=== PATIENT | female | born 1950 | race Caucasian/White ===

== ENCOUNTER → 2017-12-28 18:09 | Outpatient (CLI) | payer MEDICARE, SELFPAY ==
[2017-12-28 19:27] LABS: M R Staph aureus DNA By PCR Negative (Negative); Probe Check PASS; Specimen Processing Control PASS; Staph aureus DNA By PCR NEGATIVE (Negative)
== END ==
PROVIDERS: Family Provider Internal Medicine; PCP Internal Medicine; Visit Provider Podiatrist
DX: L60.0 Ingrowing nail (principal)
CPT/HCPCS: 87070; 87205; 87640

== ENCOUNTER 2018-05-04 00:26 | Emergency (ER) | payer MEDICARE, SELFPAY ==
[2018-05-04 00:28] VITALS: BP 118/68; PULSE 101; RESP 20; TEMP 38.2; O2SAT 94; BMI 30.8
--- NOTE | 2018-05-04 00:58 | ED.DCSUM_ITS ---
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 Is on maintenance amoxicillin and Bactrim daily. Patient states she has had intermittent fevers of 100 101 since Wednesday. Mild chills. Denies cough. Denies sore throat. Denies sinus congestion. Denies abdominal pain or any dysuria. Physical Examination: Well appearing older female. Vital signs are stable. Pressure is 118/68. Temperature 100.7. She does not appear to be septic or toxic. She is in no acute distress. H EENT exam unremarkable. Posterior pharynx moist and pink. No erythema or exudate. Neck nontender no lymphadenopathy. Lungs clear to auscultation bilaterally. Heart regular rhythm rate about 100 no murmur. Abdomen soft and nontender. Normal bowel sounds no peritoneal signs. She does have a right lower abdomen ostomy. She is moving all 4 extremities. They are neurovascularly intact. Neurologically she is awake and alert with no focal motor deficits. Skin is unremarkable no cellulitis no abscesses. Neurologically she is awake and alert. Test Results: CBC unremarkable with a white count of 8 and a hemoglobin of 11.7 which is her baseline. Electrolytes unremarkable with a normal gap and creatinine. Blood cultures ?2 have been sent and are pending. Chest x-ray two- view shows no acute abnormality with a left-sided MediPort. Urinalysis shows 1025 white cells but no other signs of and no nitrites. A culture will be sent. At this time with her having no urinary symptoms and currently being on 2 different antibiotics I do not feel she needs to be placed on a third antibiotic until culture result determines if she truly has a urinary tract infection or not. I discussed this with both the patient and her . Emergency Department Course and Treatment: Patient with a low-grade fever and a history of bone marrow transplant. Treatment Plan: Repeat exam the patient is doing well at ar 2:17 AM. We discussed all of her test results. Discharge to home. Follow-up with either her primary care physician Dr. Manisha Quinteros or Dr. Williams Gresham of the [facility] for further evaluation of her fever and determine her urine culture results. 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 It may contain incorrect words, spelling, and punctuation that were not noted in review of the chart prior to signing ED Disposition - Plan for ED Patient: Disposition: Home or Assisted Living Chief Complaint: Fever Instructions: ED Fever Unconf Cause Referrals: Dorcas Prince MD [Primary Care Provider] - As soon as possible Additional Instructions: Return if feeling worse. Tylenol as needed for fever. Continue current medications and current antibiotics. Call follow-up with your primary care physician or your bone marrow transplant team at the [facility]. We did do blood cultures we will notify you when those return if there are any signs of infection.
[2018-05-04 01:24] LABS: Absolute Lymphocyte Count 4.06 X10^3/ul (0.83-4.51); Absolute Neutrophil Count 3.1 X10^3/uL (2.0-7.7); Basophil# 0.01 X10^3/uL; Basophil% 0.1 % (0-1); Eosinophil# 0.24 X10^3/uL; Eosinophils% 2.7 % (0-5); Hematocrit 34.2 % (37-47); Hemoglobin 11.7 g/dl (12.0-15.0); Lymphocyte # 4.06 X10^3/ul (4.0); Lymphocyte % 46.1 % (19-41); Mean Corp Hgb Conc 34.2 g/gl (32-36); Mean Corpuscular Hgb 33.4 pg (27.0-32.0); Mean Corpuscular Volume 97.7 fL (81-99); Mean Platelet Vol. 10.7 fl (6.2-12.0); Monocyte# 1.41 X10^3/uL; Neutrophil # 3.05 X10^3/uL (2.7-7.7); Neutrophil % 34.8 % (47-70); Platelet Count 233 K/mm3 (150-450); RBC Distribution Width CV 14.6 % (11.6-14.6); RBC Distribution Width SD 49.7 fl (35.1-43.9); White Blood Count 8.8 K/mm3 (4.4-11.0)
[2018-05-04 01:27] LABS: POSITIVE COUNT NO; POSITIVE DIFFERENTIAL NO; POSITIVE MORPHOLOGY NO
[2018-05-04 01:39] LABS: Anion Gap 10 (5-15); BUN 19 mg/dL (7-18); BUN/Creat Ratio 19.3 RATIO (10-20); Calcium,Total 9.3 mg/dL (8.5-10.1); Chloride 107 mmol/L (98-107); Creatinine, Serum 0.98 mg/dL (0.55-1.02); EST Glomerular Filtration Rate 60 mL/min (>60); Est Glom Filt Rate - Afr Amer 72 mL/min (>60); Estimated Creatinine Clearance 60.94 ml/min; Glucose 178 mg/dL (74-106); Potassium 3.9 mmol/L (3.5-5.1); Sodium Level 140 mmol/L (136-145)
--- NOTE | 2018-05-04 02:21 | DCINST.ED_ITS ---
ED Disposition - Plan for ED Patient: Disposition: Home or Assisted Living Chief Complaint: Fever Instructions: ED Fever Unconf Cause Referrals: Dorcas Prince MD [Primary Care Provider] - As soon as possible Additional Instructions: Return if feeling worse. Tylenol as needed for fever. Continue current medications and current antibiotics. Call follow-up with your primary care physician or your bone marrow transplant team at the [facility]. We did do blood cultures we will notify you when those return if there are any signs of infection. Also your urinalysis had white cells but no other signs of infection. A urine culture was sent and those results return in 1-2 days. If you truly have a urinary tract infection we may need to alter your current antibiotics. Call and follow-up with either Dr. Dorcas Prince or Dr. Williams Gresham.
[2018-05-04 02:35] LABS: Bacteria 0 SEEN /hpf (None Seen); Mucous, Urine 0 SEEN /hpf (<or=2+); Red Blood Cells-Urine 0 SEEN /hpf (0-5); Squamous Epithelial Cells - UA 0 SEEN /hpf (5-10)
[2018-05-04 02:41] LABS: Color, Urine Yellow (Yellow); Glucose, Dipstick Normal (Normal); Ketone-Dipstick Negative (Negative); Leukocyte Esterase-Dipstick 500 /ul (Negative); Nitrite-Dipstick Negative (Negative); Occult Blood-Urine 10 /ul (Negative); Protein-Dipstick 15 mg/dl (Negative); Urine Bilirubin Dipstick Negative (Negative); Urine Clarity Clear (Clear); Urine Urobilinogen Normal (Normal)
[2018-05-04 02:49] LABS: White Blood Cells 10-25 SEEN /hpf (0-5)
--- NOTE | 2018-05-04 03:04 | ED.DEP ---
ED Disposition - Plan for ED Patient: Disposition: Home or Assisted Living Chief Complaint: Fever Instructions: ED Fever Unconf Cause Referrals: Dorcas Prince MD [Primary Care Provider] - As soon as possible Additional Instructions: Return if feeling worse. Tylenol as needed for fever. Continue current medications and current antibiotics. Call follow-up with your primary care physician or your bone marrow transplant team at the [facility]. We did do blood cultures we will notify you when those return if there are any signs of infection. Also your urinalysis had white cells but no other signs of infection. A urine culture was sent and those results return in 1-2 days. If you truly have a urinary tract infection we may need to alter your current antibiotics. Call and follow-up with either Dr. Dorcas Prince or Dr. Williams Gresham.
[2018-05-04 03:14] VITALS: BP 100/62; PULSE 78; RESP 18; TEMP 37.5; O2SAT 95
--- NOTE | 2018-05-04 03:48 | NURSING ---
CENTRAL LINE ASSESS CATHETER REMOVED, BUT FLUSHED WITH 10 CC'S NS AND 5 ML HEPARIN 100 UNITS /ML PRIOR TO REMOVAL. MINIMAL BLEEDING NOTED. SMALL BANDAGE APPLIED.
== END 2018-05-04 03:50 | disposition home or self-care (01) ==
PROVIDERS: Emergency Provider Emergency Medicine; Family Provider Internal Medicine; PCP Internal Medicine
DX: R50.9 Fever, unspecified (principal); Z94.81 Bone marrow transplant status; Z85.6 Personal history of leukemia; D89.813 Graft-versus-host disease, unspecified
CPT/HCPCS: 36415; 36591; 71046; 80048; 81001; 85025; 87040; 87086; 87088; 99283

== ENCOUNTER → 2018-06-01 18:24 | Outpatient (CLI) | payer MEDICARE, SELFPAY ==
[2018-06-01 20:29] LABS: M R Staph aureus DNA By PCR Negative (Negative); Probe Check PASS; Specimen Processing Control PASS; Staph aureus DNA By PCR NEGATIVE (Negative)
== END ==
PROVIDERS: Visit Provider Podiatrist
DX: L60.0 Ingrowing nail (principal)
CPT/HCPCS: 87070; 87205; 87640; 97110

== ENCOUNTER 2018-08-10 11:00 | Outpatient (RCR) | payer MEDICARE, SELFPAY ==
--- NOTE | 2018-05-27 12:06 | HP.PTEVAL ---
Patient's Visit Information CONG SMITH is a 68 year old F referred to Physical Therapy by OMID CARL with a diagnosis of Malaise. Date of Evaluation: 05/27/18 Physical Therapist: Ashanti Dunlap - Visit Plan Frequency: 2-3x /Week Duration: 3 Weeks Plan: Focus on functional mobility and pain management. - Subjective Subjective: 4 years ago diagnosed with Leukemia- bone marrow transplant 3 years ago which put her into lindy/host disease. Gave her such high doses of Prednisone- was unable to move anything. Sent her to SNF for rehab and she got sick and sent her back to the hospital and ended up with colostomy bag. Back to another SNF- back to hospital possible PR but did have A-fib Aug. They let her come down to [facility]. Was in there until Oct and took her home. Hospital bed in living room with a commode. Hired a home health aide, PT and OT. They got her up and walking and is now walking without AD mostly in the home but she uses it for a cane. 2 weeks ago her left leg stopped working completely again. The adductor is very painful up to the groin and her knee is really tight and it throbbs to the ankle. MD is unsure of the cause. Feels like the muscle is pulled. Has problems getting up/down the stairs. Bedroom is downstairs in the basement- and her bathroom is a flight of stairs away. put a commode in the rec room. Thinks the pain was from going up/down the stais without a cane and thinks it maybe from that. The pain has been almost a month. Best: 0/10 when she was given a steroid for 3 days. CAT Scan was normal- they are looking for the source of her fever. Worst: 10/10 Agg: movement, picking the leg up off the couch, getting in/out of bed/car- sideways movement. No N/T in the toes. Sleep: disturbed- side/back. PMHx/Meds: no change since last ER visit. - Objective Gait: ambulated 60' with cane, slight ER of L leg and foot and circumduction. Decreased gait speed but no breaks needed during 60' walk. Posture: rounded shoulders. Highly irritable and hesitant with movement of L LE. Able to toe and heel raise with hand support on table; toe raise was decreased by 50% no pain. Unable to sustain SLS on L with hand support on table due to reported weakness and pain. Pain with palpation of L adductor muscle group and tibiofemoral medial joint line. ROM: WFL with pain with end range abduction of the hip. Strength: Core: fair, Hip: 4/5 throughout, knee: 4+/5, Ankle: 5/5. Pt unable to transfer sit to supine or supine to sit without mod A for LE movement. Flexibility: HS length mild restriction - Goals Goal 1:: Patient will be I with HEP and progression Goal Time Frame: 4-6 Weeks Goal 2:: Patient will transfer supine to sit/sit to supine I on mat table. Goal Time Frame: 4-6 Weeks Goal 3:: Patient will ambulate >300 feet with a normal gait pattern LRD and normal eric. Goal Time Frame: 4-6 Weeks Goal 4:: Patient will be able to asc/desc 8 stairs recip with 2 HR or 1 HR and cane. Goal Time Frame: 4-6 Weeks Goal 5:: Patient will report worst pain 3/10 for 1 week Goal Time Frame: 4-6 Weeks - Rehabilitation Potential Physical Therapy Diagnosis: Patient presents with hypomobility- she has decreased painfree ROM, strength and muscular endurance leading to inability to transfer I and perform normal ADL's. Rehabilitation Potential: Fair - Anticipated Interventions Patient/Client Instruction: Educate patient on: Benefits of Fitness Program Therapeutic Exercise to Include: Strength training, Endurance training, Balance training, Coordination, Body mechanics, Postural training, Flexibilty training, Gait and locomotor training, Passive ROM, Active ROM, Dynamic Lumbar Stabilization For the Purpose of:: To improve muscle performance and motor function Manual Therapy Techniques to Include: Soft tissue mobilization For the Purpose of:: To improve nutrient delivery to tissue TENS: Yes Cryotherapy (ice pack, ice massage): Yes Thermo therapy (hot pack): Yes Ultrasound (thermal/non thermal): Yes For the Purpose of:: To decrease pain Thank you for the opportunity to evaluate your patient. For Medicare and Medicare HMO plans, please review the plan of care and approve it. It will need to be FAXED BACK to us at [phone] for Medicare purposes. Please let me know if there are questions or concerns regarding this plan of care. Physician Signature: Date:
--- NOTE | 2018-06-17 11:34 | HP.PTREVAL_ITS ---
OMID CARL, It has been my pleasure to treat CONG SMITH over the last 10 visits for Malaise. Please see the progress note below for an update on the physical therapy plan of care! Subjective: Pain is located in the groin and down to the knee. Had x-rays at [facility] who was hoping the pain was coming from a pinched nerve but she thinks its from degeneration. She did not have any options. The therapy has her walking but she is unable to get in/out of the car and lifting the leg. wants her to do therapy for her back. Objective/Function: Gait: ambulated 250' with cane, slight ER of L leg and foot and circumduction. Decreased gait speed but no breaks needed during ambulation. Posture: rounded shoulders. Able to toe and heel raise with hand support on table; toe raise was decreased by 50% no pain. SLS on L with hand support on table fpr 5 seconds. Pain with palpation of L adductor muscle group and tibiofemoral medial joint line. ROM: WFL with pain with end range abduction of the hip. Strength: Core: fair, Hip: 4/5 throughout, knee: 4+/5, Ankle: 5/5. Sit to stand with bilateral UE. Flexibility: HS length mild restriction Plan Plan: Continue 3x a week for 3 weeks- 1 visit for 60 min and 2 for 30 min- add in core s/s on table Goals Goal 1:: Patient will be I with HEP and progression Goal Time Frame: 4-6 Weeks Goal Progress: Progressing Goal 2:: Patient will transfer supine to sit/sit to supine I on mat table. Goal Time Frame: 4-6 Weeks Goal Progress: Progressing Goal 3:: Patient will ambulate >300 feet with a normal gait pattern LRD and normal eric. Goal Time Frame: 4-6 Weeks Goal Progress: Progressing Goal 4:: Patient will be able to asc/desc 8 stairs recip with 2 HR or 1 HR and cane. Goal Time Frame: 4-6 Weeks Goal Progress: Progressing Goal 5:: Patient will report worst pain 3/10 for 1 week Goal Time Frame: 4-6 Weeks Goal Progress: Progressing Anticipated Interventions Patient/Client Instruction: Educate patient on: Benefits of Fitness Program Therapeutic Exercise to Include: Strength training, Endurance training, Balance training, Coordination, Body mechanics, Postural training, Flexibilty training, Gait and locomotor training, Passive ROM, Active ROM, Dynamic Lumbar Stabilization For the Purpose of:: To improve muscle performance and motor function Manual Therapy Techniques to Include: Soft tissue mobilization For the Purpose of:: To improve nutrient delivery to tissue TENS: Yes Cryotherapy (ice pack, ice massage): Yes Thermo therapy (hot pack): Yes Ultrasound (thermal/non thermal): Yes For the Purpose of:: To decrease pain Please do not hesitate to contact me at [phone] by phone or if you have questions or concerns regarding this new plan of care! Sincerely, Ashanti Dunlap
--- NOTE | 2018-07-08 11:33 | HP.PTREVAL ---
OMID CARL, It has been my pleasure to treat CONG SMITH over the last 19 visits for Malaise. Please see the progress note below for an update on the physical therapy plan of care! 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 Thinks the therapy is keeping her functional. So at this point she is planning to not do anything about her hip until it gets so painful she has no choice but to address it. Objective/Function: Gait: ambulated 300' with cane, slight ER of L leg and foot and circumduction. Decreased gait speed but no breaks needed during ambulation. Posture: rounded shoulders. Able to toe and heel raise with hand support on table; toe raise was decreased by 25% no pain. SLS on L with hand support on table fpr 5 seconds. Pain with palpation of L adductor muscle group and tibiofemoral medial joint line. ROM: WFL with pain with end range abduction of the hip. Strength: Core: fair, Hip: 4/5 throughout, knee: 4+/5, Ankle: 5/5. Sit to stand with bilateral UE. Flexibility: HS length mild restriction. Patient endurance is really improving- her gait speed is better and she requires less rest throughout session. Plan Plan: Continue PT 2x a week for 2 weeks then drop to 1x a week for 2 weeks with patient progressing in a gym program to become I with silver sneakers Goals Goal 1:: Patient will be I with HEP and progression Goal Time Frame: 4-6 Weeks Goal Progress: Progressing Goal 2:: Patient will transfer supine to sit/sit to supine I on mat table. Goal Time Frame: 4-6 Weeks Goal Progress: Goal Met Goal 3:: Patient will ambulate >300 feet with a normal gait pattern LRD and normal eric. Goal Time Frame: 4-6 Weeks Goal Progress: Progressing Goal 4:: Patient will be able to asc/desc 8 stairs recip with 2 HR or 1 HR and cane. Goal Time Frame: 4-6 Weeks Goal Progress: Progressing Goal 5:: Patient will report worst pain 3/10 for 1 week Goal Time Frame: 4-6 Weeks Goal Progress: Progressing Anticipated Interventions Patient/Client Instruction: Educate patient on: Benefits of Fitness Program Therapeutic Exercise to Include: Strength training, Endurance training, Balance training, Coordination, Body mechanics, Postural training, Flexibilty training, Gait and locomotor training, Passive ROM, Active ROM, Dynamic Lumbar Stabilization For the Purpose of:: To improve muscle performance and motor function Manual Therapy Techniques to Include: Soft tissue mobilization For the Purpose of:: To improve nutrient delivery to tissue TENS: Yes Cryotherapy (ice pack, ice massage): Yes Thermo therapy (hot pack): Yes Ultrasound (thermal/non thermal): Yes For the Purpose of:: To decrease pain Please do not hesitate to contact me at [phone] by phone or if you have questions or concerns regarding this new plan of care! Sincerely, Ashanti Dunlap
--- NOTE | 2018-08-10 11:33 | HP.PTDCSUM ---
HP - PT D/C Summary It has been my pleasure to treat CONG SMITH under orders from OMID CARL, for the diagnosis of Malaise for a total of 27 visit(s). Discharge Date: Please see the following information for a summary of their discharge status. - Subjective Subjective: Therapy is going okay- feels its helping but she is pessamistic about her hip. PT is getting her moving but the pain is not changing. They did blood work- to see if the inflammation is in the muscles. Trying to balance her Creatine. 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 They keep talking Prednisone but haven't put her on anything. really hard to get moving and motivated to do anything. - Pain L LE Pain Intensity (Out of 10): 0 LUmbar Spine Pain Intensity (Out of 10): 0 - Objective Objective/Function: Gait: ambulated 300' with cane, slight ER of L leg and foot and circumduction. Decreased gait speed but no breaks needed during ambulation. Posture: rounded shoulders with difficulty maintaining erect posture with ambulation today- reports tired. Able to toe and heel raise with hand support on table ROM: WFL with pain with end range abduction of the hip. Strength: Core: fair, Hip: 4/5 throughout, knee: 4+/5, Ankle: 5/5. Sit to stand with bilateral UE or single UE and cane. - Goals Goal 1:: Patient will be I with HEP and progression Goal Progress: Goal Met Goal 2:: Patient will transfer supine to sit/sit to supine I on mat table. Goal Progress: Goal Met Goal 3:: Patient will ambulate >300 feet with a normal gait pattern LRD and normal eric. Goal Progress: Progressing Goal 4:: Patient will be able to asc/desc 8 stairs recip with 2 HR or 1 HR and cane. Goal Progress: Progressing Goal 5:: Patient will report worst pain 3/10 for 1 week Goal Progress: Progressing - Plan Plan: Discharge to HEP - D/C Information If there are questions or concerns regarding this patient's physical therapy, please feel free to call me at [phone]. Thank you for the referral of this patient. Sincerely, Ashanti Dunlap
== END 2018-08-10 18:56 | disposition home or self-care (01) ==
LOC: PT 11:00
PROVIDERS: Family Provider Internal Medicine; PCP Internal Medicine
DX: Z94.81 Bone marrow transplant status (principal); R53.81 Other malaise
CPT/HCPCS: 97110; 97116; 97162; 97164

== ENCOUNTER 2018-08-22 13:18 | Emergency (ER) | payer MEDICARE, SELFPAY ==
[2018-08-22 13:21] VITALS: BP 129/96; PULSE 103; RESP 18; TEMP 37.3; O2SAT 100; BMI 27.8
--- NOTE | 2018-08-22 14:00 | CT_ITS ---
STUDY: CT SOFT TISSUE NECK WITHOUT CONTRAST REASON FOR EXAM: Female, 68 years old. Right jaw pain. Possible dental infection. History of leukemia. RADIATION DOSAGE (If Supplied By Facility): CTDIvol = ( 15.29 ) mGy, DLP = ( 396.90 ) mGycm TECHNIQUE: The patient was scanned in a multi-detector CT scanner. High resolution transaxial imaging was performed without the administration of intravenous contrast material. Sagittal and coronal images were reconstructed. Individualized dose optimization techniques were used for this CT. COMPARISON: None. FINDINGS: A left-sided portacatheter is seen. Diffuse soft tissue swelling and edematous changes seen in the right submental region. There is evidence of enlarged lymph nodes at that site. This is in keeping with the patient's history of possible right ventricular infection. There is evidence of increased markings in the surrounding subcutaneous fat. No bony destruction is seen. Normal visualized nasopharynx. Normal retropharyngeal space. Normal perivertebral space. Normal visualized bilateral faucial tonsils. The visualized tongue, tongue base and oropharynx are normal. There are minimally enlarged lymph nodes of the neck, with preservation of normal darius architecture, consistent with a reactive lymph hyperplasia. Normal epiglottis, bilateral vallecula and hypopharynx. The pre-epiglottic and paraglottic adipose spaces are normal. Normal visualized bilateral piriform sinuses, aryepiglottic folds, vocal cords, and arytenoid-cricoid articulations. Normal subglottic trachea. Normal bilateral lobes of the thyroid gland. Normal visualized pulmonary apices. Mucosal thickening of the maxillary sinuses and ethmoid sinuses bilaterally. Straightening of the normal cervical lordosis. CT/Soft Tissue Neck without Contr IMPRESSION: Diffuse soft tissue swelling and enlargement of the cervical lymph nodes in the right submental region. No bony abnormality is seen. Electronically Signed: Ralph Morillo MD at 15:34 EST Tel [phone], Service support ,
[2018-08-22] MEDS: Morphine 4 MG/ML Syringe IV (14:24)
[2018-08-22] MEDS: Ondansetron 4 MG/2 ML Vial IV (14:24)
[2018-08-22 14:36] LABS: Absolute Lymphocyte Count 3.77 X10^3/ul (0.83-4.51); Absolute Neutrophil Count 5.1 X10^3/uL (2.0-7.7); Basophil# 0.02 X10^3/uL; Basophil% 0.2 % (0-1); Differential Indicated SCAN CRITERIA MET; Eosinophil# 0.16 X10^3/uL; Eosinophils% 1.5 % (0-5); Hematocrit 36.7 % (37-47); Hemoglobin 12.4 g/dl (12.0-15.0); Lymphocyte # 3.77 X10^3/ul (4.0); Mean Corp Hgb Conc 33.8 g/gl (32-36); Mean Corpuscular Hgb 32.4 pg (27.0-32.0); Mean Corpuscular Volume 95.8 fL (81-99); Mean Platelet Vol. 9.9 fl (6.2-12.0); Monocyte% 15.8 % (0-10); Neutrophil % 47.3 % (47-70); POSITIVE COUNT NO; POSITIVE DIFFERENTIAL YES; POSITIVE MORPHOLOGY NO; Platelet Count 235 K/mm3 (150-450); RBC Distribution Width SD 52.3 fl (35.1-43.9); Red Blood Count 3.83 M/mm3 (4.2-5.4); White Blood Count 10.8 K/mm3 (4.4-11.0)
[2018-08-22] MEDS: 0.9% Normal Saline 1,000 ML 999 ML IV (14:38)
[2018-08-22 14:46] LABS: Anion Gap 10 (5-15); BUN 29 mg/dL (7-18); BUN/Creat Ratio 27.9 RATIO (10-20); Chloride 103 mmol/L (98-107); Creatinine, Serum 1.04 mg/dL (0.55-1.02); EST Glomerular Filtration Rate 56 mL/min (>60); Est Glom Filt Rate - Afr Amer 68 mL/min (>60); Estimated Creatinine Clearance 50.05 ml/min; Glucose 110 mg/dL (74-106); Potassium 4.1 mmol/L (3.5-5.1); Sodium Level 138 mmol/L (136-145)
[2018-08-22] MEDS: proMETHazine 25 MG/ML Syringe 6.25 MG IV (15:09)
--- NOTE | 2018-08-22 16:15 | ED.VISSUMM ---
- ER Visit Summary Date of Service: 08/22/18 Chief Complaint: Dental infection History of Present Illness: The patient is a 68 F with a history of immunosuppression presenting with dental pain in the right mandibular molar region for 3 days. It is worse with chewing and has noted her p.o. intake for the past 2 days. She and her are concerned about dehydration. She saw her dentist today and was sent here for a CT scan to rule out deep space infection. She denies fever or neck pain. She has no other symptoms of infection. Physical Examination: Vitals are within normal limits. She is not in distress. Mucous membranes are dry. She does have some pain with mouth opening but no true trismus and is still able to open up for me to examine her. She has tenderness on percussion of the right mandibular second molar where there is focal decay. There is mild swelling laterally on her face but the tissues are soft. There is mild lymphadenopathy on the right by anterior neck structures in the floor of her mouth are soft. There is no erythema or warmth. No trouble handling her secretions. Test Results: Labs are within normal limits. I was unable to use IV contrast because of her allergy so a noncontrast scan was performed. While it is somewhat limited, there is no evidence of deep space infection but rather reactive lymphadenopathy on the right. She has no other symptoms of infection and is certain that this is a dental source. Emergency Department Course and Treatment: Given intravenous clindamycin as well as intravenous fluids and nausea/pain medication here. She feels well and is comfortable going home on oral medication as a trial. I will prescribe her clindamycin and pain medication. She will see her dentist tomorrow for a recheck and return here if worse. Treatment Plan: See her dentist tomorrow, oral clindamycin after a dose of IV clindamycin here Disposition: Home stable condition Impression: Initial encounter dental infection with reactive lymphadenopathy setting of immunosuppression This note was generated with [employer] dictation software. It may contain incorrect words, spelling, and punctuation that were not noted in review of the chart prior to signing ED Disposition - Plan for ED Patient: Chief Complaint: Dental Instructions: Dental Abscess, ED Tooth Pain Prescriptions: Oxycodone HCl/Acetaminophen [Percocet 5/325] 1 tablet PO Q6H PRN PRN 3 Days #12 tablet PRN Reason: Pain Clindamycin [Cleocin] 300 mg PO 4X/DAY #80 capsule Referrals: Dorcas Prince MD [Primary Care Provider] - Additional Instructions: See your dentist tomorrow
--- NOTE | 2018-08-22 16:21 | ED.DCSUM_ITS ---
- ER Visit Summary Date of Service: 08/22/18 Chief Complaint: Dental infection History of Present Illness: The patient is a 68 F with a history of immunosuppression presenting with dental pain in the right mandibular molar region for 3 days. It is worse with chewing and has noted her p.o. intake for the past 2 days. She and her are concerned about dehydration. She saw her dentist today and was sent here for a CT scan to rule out deep space infection. She denies fever or neck pain. She has no other symptoms of infection. Physical Examination: Vitals are within normal limits. She is not in distress. Mucous membranes are dry. She does have some pain with mouth opening but no true trismus and is still able to open up for me to examine her. She has tenderness on percussion of the right mandibular second molar where there is focal decay. There is mild swelling laterally on her face but the tissues are soft. There is mild lymphadenopathy on the right by anterior neck structures in the floor of her mouth are soft. There is no erythema or warmth. No trouble handling her secretions. Test Results: Labs are within normal limits. I was unable to use IV contrast because of her allergy so a noncontrast scan was performed. While it is so mewhat limited, there is no evidence of deep space infection but rather reactive lymphadenopathy on the right. She has no other symptoms of infection and is certain that this is a dental source. Emergency Department Course and Treatment: Given intravenous clindamycin as well as intravenous fluids and nausea/pain medication here. She feels well and is co mfortable going home on oral medication as a trial. I will prescribe her clindamycin and pain medication. She will see her dentist tomorrow for a recheck and return here if worse. Treatment Plan: See her dentist tomorrow, oral clindamycin after a dose of IV clindamycin here Disposition: Home stable condition Impression: Initial encounter dental infection with reactive lymphadenopathy setting of immunosuppression This note was generated with [employer] dictation software. It may contain incorrect words, spelling, and punctuation that were not noted in review of the chart prior to signing ED Disposition - Plan for ED Patient: Chief Complaint: Dental Instructions: Dental Abscess, ED Tooth Pain Prescriptions: Oxycodone HCl/Acetaminophen [Percocet 5/325] 1 tablet PO Q6H PRN PRN 3 Days #12 tablet PRN Reason: Pain Clindamycin [Cleocin] 300 mg PO 4X/DAY #80 capsule Referrals: Dorcas Prince MD [Primary Care Provider] - Additional Instructions: See your dentist tomorrow
[2018-08-22 16:53] VITALS: RESP 18
[2018-08-22 18:10] VITALS: RESP 18
== END 2018-08-22 18:12 | disposition home or self-care (01) ==
LOC: ED 14:04
PROVIDERS: Emergency Provider Emergency Medicine; Family Provider Internal Medicine; PCP Internal Medicine
DX: K04.7 Periapical abscess without sinus (principal); Z85.6 Personal history of leukemia
CPT/HCPCS: 36591; 70490; 80048; 85025; 96361; 96374; 96375; 99282; J7030; J7050; A4216; J2405

== ENCOUNTER 2018-10-28 13:02 | Outpatient (RCR) | payer MEDICARE, SELFPAY ==
[2018-10-28 13:21] VITALS: BP 110/67; PULSE 90; RESP 18; TEMP 36.9; BMI 27.8
== END 2018-11-17 23:59 ==
LOC: WC 13:02
PROVIDERS: Family Provider Internal Medicine; PCP Internal Medicine; Visit Provider Family Medicine
DX: Z09 Encounter for follow-up examination after completed treatment for conditions other than malignant neoplasm (principal)

== ENCOUNTER 2018-12-15 14:17 | Emergency (ER) | payer MEDICARE, SELFPAY ==
[2018-12-15 14:23] VITALS: BP 120/71; PULSE 77; RESP 18; TEMP 36.2; O2SAT 100; BMI 26.5
--- NOTE | 2018-12-15 14:27 | EKG12_ITS ---
Test Reason : SYNCOPE Blood Pressure : / mmHG Vent. Rate : 077 BPM Atrial Rate : 077 BPM P-R Int : 144 ms QRS Dur : 134 ms QT Int : 438 ms P-R-T Axes : 035 -67 055 degrees QTc Int : 495 ms Normal sinus rhythm Left axis deviation Right bundle branch block Abnormal ECG Confirmed by ROBERT CABA, CLARE ([id number]), editor farm journal LINDA CONTRERAS ([id number]) on 12/19/2018 2:00:04 PM Referred By: MELISSA Confirmed By:CLARE JONES MD
[2018-12-15 14:38] VITALS: BP 107/65; PULSE 79; RESP 13; O2SAT 100
--- NOTE | 2018-12-15 14:46 | ED.VIS.GEN ---
History of Present Illness Chief Complaint: Syncope Informant: Patient, Family Onset: Today Context: Sudden Onset Timing: Intermittent Quality: Passed out Location: Restaurant Current Severity: Resolved Maximum Severity: Moderate Worsened by: Rising from sitting position Associated Symptoms: Nausea, abdominal discomfort, diaphoresis and pallor Narrative: Patient is an elderly woman with multiple medical problems who presents after syncopal episode. She was sitting for an hour at a restaurant. She aurelio from a sitting position. She became nauseous, lightheaded and was reported to be pale and diaphoretic. Patient had similar event in the past and did not seek medical attention. She is presently complaining of chronic abdominal pain. He does have an ileostomy. He reports occasionally does get cramping abdominal pain. She denies black or maroon stool. She denies cardiac or respiratory symptoms. 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 (3) Bone marrow transplant status Status: Chronic Comment: in spring (4) Hypothyroidism Status: Chronic (5) Gastroenteritis Status: Suspected Past Medical History - Allergies and Home Meds Allergies/Adverse Reactions: Allergies Gadolinium-MRI Contrast Medium [CONTRAST] Allergy (Verified 08/22/18 13:20) Hives Iodinated Contrast- Oral and IV Dye [Iodinated Contrast Media - IV Dye] Allergy (Verified 08/22/18 13:20) Hives iodine Allergy (Verified 08/22/18 13:20) Hives Primary Care Physician: Dorcas Prince MD [Primary Care Provider] - Prior records reviewed: Yes Surgical History: - - colostomy, bone marrow transplant Lives: Spouse/ Significant Other Smoking Status: Never smoker Alcohol: None Drugs: None - Family History Maternal Family History: Reports: - - History of leukemia pain Maternal cousin but not in first-degree family relative Review of Systems ROS: Unable to Obtain - History is limited because patient does not recall much. Friends that were at restaurant are not present to be interviewed. EMS report is not available. General: Reports: Chills. Denies: Fever, Malaise, Sweats, Weight loss Eyes: Denies: Visual changes - bilaterally, Blurred Vision - bilaterally, Diplopia ENT: Denies: Bilateral ear pain, Rhinorrhea, Sore throat Cardiovascular: Denies: Chest pain, Palpitations, Heart racing Respiratory: Denies: Dyspnea, Cough, Sputum, Dyspnea on exertion, Orthopnea, Paroxysmal nocturnal dyspnea, -, - Gastrointestinal: Reports: Abdominal pain, Nausea. Denies: Vomiting, Diarrhea, Melena, Hematochezia Genitourinary: Denies: Dysuria, Hematuria, Frequency, -, - Musculoskeletal: Denies: Myalgias, Arthralgias, Neck pain, Back pain, Extremity Pain Skin: Denies: Rash, Wounds Neurological: Reports: Weakness. Denies: Headache, Parasthesia, Numbness Endocrine: Denies: Polyuria, Polydipsia Hematologic: Denies: Easy bruising Allergy: Denies: Uticaria Physical Exam Vital Signs/Narrative: Vital Signs Temp Pulse Resp BP Pulse Ox 12/15/18 14:38 79 13 107/65 100 12/15/18 14:23 97.1 F L 77 18 120/71 100 Inital Vital Signs reviewed: Yes General: Well nourished, Well developed, No Acute Distress Head: Normocephalic, Atraumatic Eyes: Perrl, EOMI. Negative for: Pale conjunctiva ENT: Moist mucous membranes, No rhinorrhea, TM's clear, - - No clinical findings of basal skull fracture Neck: Supple, Nontender, No lymphadenopathy, No JVD Cardiovascular: Regular rate, Regular rhythm, No murmurs, Normal S1, Normal S2 Respiratory: No distress, CTA bilaterally, Chest nontender Abdomen: Soft, Nondistended, No masses, Tender, Hyperactive bowel sounds, Ventral hernia, Hernia irreducible. Negative for: Guarding, Rebound tenderness, Hepatomegaly, Splenomegaly Rectal: - - Stool in ileostomy bag is green Back: Nontender, Normal Inspection Skin: No rash, Pallor Neurological: Alert, Oriented x3, Cranial nerves II-XII grossly intact, Normal Strength, Normal Sensation Psychological: Normal affect, Normal Mood Diagnostic/Tx/Re-eval Laboratory Results 12/15/18 12/15/18 14:53 14:53 WBC 9.4 RBC 3.31 L Hgb 11.2 L Hct 34.5 L MCV 104.2 H MCH 33.8 H MCHC 32.5 RDW 14.5 RDW Differential 55.4 H Plt Count 301 MPV 10.2 Immature Gran % (Auto) 0.100 Neut % (Auto) 36.5 L Lymph % (Auto) 39.0 [place] % (Auto) 13.3 H Eos % (Auto) 10.6 H Baso % (Auto) 0.5 Absolute Neuts (auto) 3.4 Absolute Lymphs (auto) 3.67 Total Counted Not Reportable Sodium 138 Potassium 3.8 Chloride 107 Carbon Dioxide 24.0 Anion Gap 7 BUN 22 H Creatinine 1.09 H Estim Creat Clear Calc 45.55 Est GFR (MDRD) Af Amer 64 Est GFR (MDRD) Non-Af 53 L BUN/Creatinine Ratio 20.2 H Glucose 98 Calcium 8.8 - EKG Initial EKG Interpretation: Sinus Rhythm - Ventricular rate 77. AR interval normal. QS duration is 134 ms and evidence of right bundle branch block. QT interval is normal. [place] is to the left., RBBB Prior: Unchanged - Prior EKG July 28, 2016. - Medical Decision Making History is suggestive of vasovagal episode. Will obtain EKG. Because of her multiple medical problems and pallor will obtain CBC to assess for anemia. White count since she has chills. Electric panel to assess electrolytes, CO2 and anion gap as well as blood sugar. She was placed on a monitor. Patient's blood work is unchanged from prior. Based on history, comments made by bystanders and exam patient had a vasovagal episode. Will discharge to home. ED Disposition - Plan for ED Patient: Disposition: Home or Assisted Living Diagnosis: Vasovagal syncope, Chronic renal insufficiency, Bone marrow transplant status, Hypothyroidism, Anemia, unspecified Instructions: ED Syncope Vasovagal Referrals: Dorcas Prince MD [Primary Care Provider] - As Needed
[2018-12-15] MEDS: 0.9% Normal Saline 1,000 ML 1000 ML IV (15:01)
[2018-12-15 15:13] LABS: Absolute Lymphocyte Count 3.67 X10^3/ul (0.83-4.51); Absolute Neutrophil Count 3.4 X10^3/uL (2.0-7.7); Basophil# 0.05 X10^3/uL; Basophil% 0.5 % (0-1); Eosinophils% 10.6 % (0-5); Hematocrit 34.5 % (37-47); Hemoglobin 11.2 g/dl (12.0-15.0); Lymphocyte # 3.67 X10^3/ul (4.0); Mean Corp Hgb Conc 32.5 g/gl (32-36); Mean Corpuscular Hgb 33.8 pg (27.0-32.0); Mean Corpuscular Volume 104.2 fL (81-99); Mean Platelet Vol. 10.2 fl (6.2-12.0); Monocyte# 1.25 X10^3/uL; Monocyte% 13.3 % (0-10); Neutrophil # 3.42 X10^3/uL (2.7-7.7); Neutrophil % 36.5 % (47-70); Platelet Count 301 K/mm3 (150-450); RBC Distribution Width CV 14.5 % (11.6-14.6); RBC Distribution Width SD 55.4 fl (35.1-43.9); Red Blood Count 3.31 M/mm3 (4.2-5.4); White Blood Count 9.4 K/mm3 (4.4-11.0)
[2018-12-15 15:14] LABS: POSITIVE COUNT NO; POSITIVE DIFFERENTIAL NO; POSITIVE MORPHOLOGY NO
[2018-12-15 15:17] LABS: Anion Gap 7 (5-15); BUN 22 mg/dL (7-18); BUN/Creat Ratio 20.2 RATIO (10-20); Calcium,Total 8.8 mg/dL (8.5-10.1); Chloride 107 mmol/L (98-107); Creatinine, Serum 1.09 mg/dL (0.55-1.02); EST Glomerular Filtration Rate 53 mL/min (>60); Est Glom Filt Rate - Afr Amer 64 mL/min (>60); Estimated Creatinine Clearance 45.55 ml/min; Glucose 98 mg/dL (74-106); Potassium 3.8 mmol/L (3.5-5.1); Sodium Level 138 mmol/L (136-145)
[2018-12-15 15:59] VITALS: BP 102/60; PULSE 91; RESP 22; O2SAT 98
== END 2018-12-15 16:16 | disposition home or self-care (01) ==
PROVIDERS: Emergency Provider Emergency Medicine; Family Provider Internal Medicine; PCP Internal Medicine
DX: R55 Syncope and collapse (principal); N18.9 Chronic kidney disease, unspecified; E03.9 Hypothyroidism, unspecified; I45.10 Unspecified right bundle-branch block; Z93.3 Colostomy status; C92.01 Acute myeloblastic leukemia, in remission; Z93.2 Ileostomy status; Z94.81 Bone marrow transplant status
CPT/HCPCS: 36591; 80048; 85025; 93005; 96360; 99284; J7030; A4216

== ENCOUNTER 2019-05-06 21:31 | Emergency (ER) | payer MEDICARE, SELFPAY ==
[2019-05-06 21:32] VITALS: BP 101/71; PULSE 127; RESP 20; TEMP 37.8; O2SAT 91; BMI 28.4
[2019-05-06 21:41] VITALS: BP 101/71; PULSE 129; RESP 21; TEMP 37.8; O2SAT 95
[2019-05-06 22:11] VITALS: TEMP 37.1; O2SAT 98
--- NOTE | 2019-05-06 22:12 | ED.VIS.GEN ---
History of Present Illness Chief Complaint: Fever Informant: Patient, Significant Other Onset: Today Context: Gradual Onset Timing: Waxes and wanes Quality: 102+ Current Severity: Moderate Maximum Severity: Moderate Associated Symptoms: prod cough, sore throat, rhinorrhea Narrative: Patient has a history of leukemia and is on immunosuppressants. She developed a fever of 102 and so was advised to come to the emergency department. She started getting sick 2 days ago with cough, sore throat, runny nose. She has been eating and drinking liquids very poorly. She states she was seen at the PCPs office yesterday and had a rapid strep that was negative. She has not been on any antibiotics. She denies any nausea vomiting or abdominal pain. Her ostomy bag is been putting out loose yellow stool since I have not been eating. Her chest has been hurting due to coughing. 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 (3) Bone marrow transplant status Status: Chronic Comment: in spring (4) Colostomy in place Status: Chronic (5) Hypothyroidism Status: Chronic Past Medical History - Allergies and Home Meds Allergies/Adverse Reactions: Allergies Gadolinium-MRI Contrast Medium [CONTRAST] Allergy (Verified 05/06/19 21:37) Hives Iodinated Contrast Media [Iodinated Contrast Media - IV Dye] Allergy (Verified 05/06/19 21:37) Hives iodine Allergy (Verified 05/06/19 21:37) Hives Primary Care Physician: Dorcas Prince MD [Primary Care Provider] - Surgical History: - - colostomy, bone marrow transplant Lives: Spouse/ Significant Other Smoking Status: Never smoker - Family History Maternal Family History: Reports: - - History of leukemia pain Maternal cousin but not in first-degree family relative Review of Systems General: Reports: Chills, Fever, Malaise. Denies: Sweats Eyes: Denies: Visual changes - bilaterally, Diplopia ENT: Reports: Rhinorrhea, Sore throat. Denies: Bilateral ear pain Cardiovascular: Reports: Chest pain. Denies: Palpitations Respiratory: Reports: Cough, Sputum - I don't know what it looks like -- I swallow it.. Denies: Dyspnea, Dyspnea on exertion Gastrointestinal: Denies: Abdominal pain, Nausea, Vomiting, Diarrhea, Melena, Hematochezia Genitourinary: Denies: Dysuria, Hematuria, Frequency Musculoskeletal: Denies: Neck pain, Back pain, Swelling, Extremity Pain Skin: Denies: Rash, Wounds Neurological: Denies: Headache, Weakness, Numbness Physical Exam Vital Signs/Narrative: Vital Signs Temp Pulse Resp BP Pulse Ox 05/06/19 21:41 100.1 F H 129 H 21 H 101/71 95 05/06/19 21:32 100.1 F H 127 H 20 H 101/71 91 Inital Vital Signs reviewed: Yes General: Well nourished, Well developed, No Acute Distress Head: Normocephalic, Atraumatic Eyes: Perrl, EOMI ENT: Moist mucous membranes, No rhinorrhea, TM's clear, - - POP not visible due to relative micrognathia; no trismus.. Negative for: Sinus tenderness - and no purulent nasal d/c. no nasal turbinate edema. Neck: Supple, Nontender Cardiovascular: Regular rate, Regular rhythm, No murmurs, Tachycardia Respiratory: No distress, Chest nontender, Rhonchi - left base Abdomen: Soft, Nontender, Nondistended, Normal bowel sounds Back: Nontender, Normal Inspection. Negative for: CVA tenderness Extremities: Nontender, No edema Skin: Normal color, No rash, No Trauma Neurological: Alert, Oriented x3, Cranial nerves II-XII grossly intact, Normal Strength, Normal Sensation Psychological: Normal affect, Normal Mood Diagnostic/Tx/Re-eval Impressions Chest X-Ray 05/06/19 22:40 IMPRESSION: Right middle lobe atelectasis at 2315 Reported and signed by: Marta Joaquin DO Electronically Signed: Marta Joaquin DO at 23:14 EDT Tel , Service support , 05/06/19 22:40 Chest PA and Lateral [RAD] Stat Laboratory Results 05/06/19 05/06/19 05/06/19 22:30 22:30 22:30 WBC 16.8 H RBC 3.61 L Hgb 12.6 Hct 37.0 MCV 102.5 H MCH 34.9 H MCHC 34.1 RDW Std Deviation 57.4 H RDW Coeff of [place]oni 15.2 H Plt Count 270 MPV 10.5 Immature Gran % (Auto) 0.500 Neut % (Auto) 53.9 Lymph % (Auto) 34.4 [place] % (Auto) 9.0 Eos % (Auto) 2.0 Baso % (Auto) 0.2 Absolute Neuts (auto) 9.0 H Absolute Lymphs (auto) 5.76 H Nucleated RBC % 0 Differential Comment SCANNED PT 18.4 H INR 1.5 APTT 76.2 H Sodium 142 Potassium 4.1 Chloride 113 H Carbon Dioxide 21.0 Anion Gap 8 BUN 33 H Creatinine 1.00 Estim Creat Clear Calc 52.45 Est GFR (MDRD) Af Amer 71 Est GFR (MDRD) Non-Af 59 L BUN/Creatinine Ratio 33.0 H Glucose 116 H Lactic Acid Calcium 8.6 Total Bilirubin 0.30 AST 37 ALT 60 H Alkaline Phosphatase 196 H Total Protein 7.3 Albumin 3.0 L Globulin 4.3 H Albumin/Globulin Ratio 0.7 L Urine Color Urine Clarity Urine pH Ur Specific [place] Urine Protein Urine Glucose (UA) Urine Ketones Urine Occult Blood Urine Nitrite Urine Bilirubin Urine Urobilinogen Ur Leukocyte Esterase Urine RBC Urine WBC Ur Squamous Epith Cells Ur Transition Epith Cell Urine Bacteria Urine Mucus 05/06/19 05/07/19 22:30 00:05 WBC RBC Hgb Hct MCV MCH MCHC RDW Std Deviation RDW Coeff of [place] Plt Count MPV Immature Gran % (Auto) Neut % (Auto) Lymph % (Auto) [place] % (Auto) Eos % (Auto) Baso % (Auto) Absolute Neuts (auto) Absolute Lymphs (auto) Nucleated RBC % Differential Comment PT INR APTT Sodium Potassium Chloride Carbon Dioxide Anion Gap BUN Creatinine Estim Creat Clear Calc Est GFR (MDRD) Af Amer Est GFR (MDRD) Non-Af BUN/Creatinine Ratio Glucose Lactic Acid 1.0 Calcium Total Bilirubin AST ALT Alkaline Phosphatase Total Protein Albumin Globulin Albumin/Globulin Ratio Urine Color Yellow Urine Clarity Clear Urine pH 6.0 Ur Specific [place] 1.020 Urine Protein 30 H Urine Glucose (UA) Normal Urine Ketones Negative Urine Occult Blood 10 H Urine Nitrite Negative Urine Bilirubin Negative Urine Urobilinogen Normal Ur Leukocyte Esterase 100 H Urine RBC 0-5 SEEN Urine WBC 5-10 SEEN Ur Squamous Epith Cells 0-5 SEEN Ur Transition Epith Cell 0-5 SEEN Urine Bacteria 0 SEEN Urine Mucus 0 SEEN - Medical Decision Making Chest x-ray shows some right-sided atelectasis and no infiltrates where she actually sounded like pneumonia clinically, the left base. She does have a leukocytosis, her lactate is within normal limits. She meets sepsis criteria but not severe sepsis. She appears well clinically. Her blood pressure came down a little bit but then went back up and trended normal. I offered her admission, but she declined and prefers to go home. Therefore we ambulated her, she was no lower than 92% on room air with ambulation and felt okay. She was given Rocephin 1 g IV, and Zithromax 500 mg, she will be prescribed Zithromax and some Zofran for nausea, she states the nausea and watery stools in her colostomy are common when she has not eaten much. Encouraged to return if she is feeling worse prior to being able to follow-up. Of note, her urinalysis was abnormal as well, she has had no urine symptoms, that was sent for culture. Her pulmonary symptoms are more prominent and I suspect are more likely causing her illness. ED Disposition - Plan for ED Patient: Disposition: Home or Assisted Living Diagnosis: Community acquired pneumonia, Immunocompromised state, Sepsis Instructions: Walking Pneumonia Prescriptions: Azithromycin 250 mg PO QHS #4 tab Transmission Status: Pending to [facility]/pharmacy #[id number] proMETHazine tablet [Phenergan] 25 mg PO Q6H PRN PRN #10 tab PRN Reason: Nausea Transmission Status: Pending to [facility]/pharmacy #[id number] Referrals: Dorcas Prince MD [Primary Care Provider] - 3-5 Days
[2019-05-06] MEDS: 0.9% Normal Saline 1,000 ML 250 ML IV (22:40)
--- NOTE | 2019-05-06 22:40 | RAD_ITS ---
HISTORY:PT ARRIVES TO ED WITH COLD LIKE S/S. SHE IS ON IMMUNOSUPRESSANTS RELATED TO CANCER- LEUKEMIA PT ARRIVES TO ED WITH COLD LIKE S/S. SHE IS ON IMMUNOSUPRESSANTS RELATED TO CANCER- LEUKEMIA EXAM: XR Chest 2 Views: COMPARISON: May 04, 2018 FINDINGS: # of images incl. paperwork: 2 LINES/DEVICES: Left-sided central venous catheter with the tip in the superior vena cava. There is also an inferior vena cava filter incompletely visualized LUNGS: Right middle lobe atelectasis. No consolidation, edema or effusion. No pneumothorax. MEDIASTINUM AND CARDIOVASCULAR STRUCTURES: Cardiac silhouette not enlarged. BONES AND SOFT TISSUES: Unremarkable. RAD/Chest PA and Lateral IMPRESSION: Right middle lobe atelectasis at 2315 Reported and signed by: Marta Joaquin DO Electronically Signed: Marta Joaquin DO at 23:14 EDT Tel , Service support ,
[2019-05-06 22:47] LABS: Absolute Lymphocyte Count 5.76 X10^3/uL (0.83-4.51); Basophil# 0.03 X10^3/uL; Basophil% 0.2 % (0-1); Eosinophil# 0.34 X10^3/uL; Hemoglobin 12.6 g/dL (12.0-15.0); Lymphocyte # 5.76 X10^3/ul (4.0); Lymphocyte % 34.4 % (19-41); Mean Corp Hgb Conc 34.1 g/dL (32-36); Mean Corpuscular Hgb 34.9 pg (27.0-32.0); Mean Corpuscular Volume 102.5 fL (81-99); Mean Platelet Vol. 10.5 fl (6.2-12.0); NRBC Flagged by Analyzer 0 % (0-5); Neutrophil # 9.04 X10^3/uL (2.7-7.7); Neutrophil % 53.9 % (47-70); POSITIVE DIFFERENTIAL YES; Platelet Count 270 K/mm3 (150-450); RBC Distribution Width CV 15.2 % (11.6-14.6); RBC Distribution Width SD 57.4 fl (35.1-43.9); Red Blood Count 3.61 M/mm3 (4.2-5.4); White Blood Count 16.8 K/mm3 (4.4-11.0)
[2019-05-06 22:54] LABS: Differential Indicated SCAN CRITERIA MET
[2019-05-06 22:58] LABS: International Normalized Ratio 1.5; Prothrombin Time (Protime)PT. 18.4 SECONDS (11.7-14.9)
[2019-05-06 23:00] LABS: Partial Thromboplast Time 76.2 Seconds (24.1-36.2)
[2019-05-06 23:07] LABS: ALB/GLOB Ratio 0.7 RATIO (0.9-2.4); AST(SGOT) 37 U/L (15-37); Alanine Aminotransfer ALT/SGPT 60 U/L (13-56); Alkaline Phosphatase 196 U/L (45-117); Anion Gap 8 (5-15); BUN 33 mg/dL (7-18); Calcium,Total 8.6 mg/dL (8.5-10.1); Chloride 113 mmol/L (98-107); EST Glomerular Filtration Rate 59 mL/min (>60); Est Glom Filt Rate - Afr Amer 71 mL/min (>60); Estimated Creatinine Clearance 52.45 ml/min; Globulin 4.3 g/dL (2.2-4.2); Glucose 116 mg/dL (74-106); Potassium 4.1 mmol/L (3.5-5.1); Protein, Total 7.3 g/dL (6.4-8.2); Sodium Level 142 mmol/L (136-145)
[2019-05-06 23:11] VITALS: BP 96/50; PULSE 92; RESP 16; TEMP 37.1; O2SAT 98
[2019-05-06 23:12] LABS: Differential Comment SCANNED
[2019-05-06 23:32] VITALS: BP 89/51; PULSE 92; RESP 18; TEMP 37.1; O2SAT 97
[2019-05-07] VITALS: BP 98/50; PULSE 86; RESP 16; TEMP 36.6; O2SAT 96
[2019-05-07 00:13] LABS: Bacteria 0 SEEN /hpf (None Seen); Mucous, Urine 0 SEEN /hpf (<or=2+)
[2019-05-07 00:16] LABS: Color, Urine Yellow (Yellow); Glucose, Dipstick Normal (Normal); Ketone-Dipstick Negative (Negative); Leukocyte Esterase-Dipstick 100 /ul (Negative); Nitrite-Dipstick Negative (Negative); Occult Blood-Urine 10 /ul (Negative); Protein-Dipstick 30 mg/dl (Negative); Urine Bilirubin Dipstick Negative (Negative); Urine Clarity Clear (Clear); Urine Urobilinogen Normal (Normal)
[2019-05-07 00:22] LABS: Red Blood Cells-Urine 0-5 SEEN /hpf (0-5); Squamous Epithelial Cells - UA 0-5 SEEN /hpf (5-10); Transitional Epithelial - Ur 0-5 SEEN /hpf (0-5); White Blood Cells 5-10 SEEN /hpf (0-5)
[2019-05-07] MEDS: Ceftriaxone 1 GM/50 ML BAG IV (00:43)
[2019-05-07] MEDS: Azithromycin 250 MG Tablet 500 MG PO (00:43)
[2019-05-07 00:44] VITALS: BP 103/62; PULSE 85; RESP 17; TEMP 36.6; O2SAT 96
[2019-05-07 01:00] VITALS: BP 112/56; PULSE 85; RESP 17; O2SAT 96
[2019-05-07 01:01] VITALS: O2SAT 94
--- NOTE | 2019-05-07 01:35 | ED.RN ---
DR FERNANDEZ AWARE PT REQUESTS NAUSEA MEDICATION
[2019-05-07] MEDS: Ondansetron 4 MG/2 ML Vial IV (02:01)
[2019-05-07 02:04] VITALS: BP 111/40; PULSE 68; RESP 17; O2SAT 98
== END 2019-05-07 02:17 | disposition home or self-care (01) ==
PROVIDERS: Emergency Provider Emergency Medicine; Family Provider Internal Medicine; PCP Internal Medicine
DX: A41.9 Sepsis, unspecified organism (principal); J18.9 Pneumonia, unspecified organism; C92.01 Acute myeloblastic leukemia, in remission; E03.9 Hypothyroidism, unspecified; D69.6 Thrombocytopenia, unspecified; Z93.3 Colostomy status; Z88.8 Allergy status to other drugs, medicaments and biological substances; Z94.81 Bone marrow transplant status
CPT/HCPCS: 36415; 36591; 71046; 80053; 81001; 83605; 85025; 85610; 85730; 87040; 87077; 87086; 87088; 87186; 96361; 96365; 96375; 99283; J7030; A4216; J2405

== ENCOUNTER → 2020-01-02 09:10 | Outpatient (CLI) | payer MEDICARE, SELFPAY ==
--- NOTE | 2020-01-02 10:39 | CT_ITS ---
STUDY: CT PELVIS WITHOUT CONTRAST REASON FOR EXAM: Female, 69 years old. RECTAL BLEEDING, HX OF LEUKEMIA AND COLOSTOMY RADIATION DOSAGE (If Supplied By Facility): CTDIvol = ( 12.67 ) mGy, DLP = ( 392.38 ) mGycm TECHNIQUE: Transaxial imaging of the pelvis was performed with oral contrast, and without intravenous administration of contrast material. Individualized dose optimization techniques were used for this CT. COMPARISON: Comparison is made with prior examination dated January 24, 2017. FINDINGS: Normal urinary bladder. Normal visualized small intestine. Normal visualized colon. There is no pelvic fluid. There is no pelvic mass lesion or lymphadenopathy. Normal visualized pelvic arteries. A filter is seen within the inferior vena cava. A colostomy is seen in the right lower quadrant. Herniated nondilated bowel loops are seen at the level of the ostomy. The patient is status post left hip replacement causing artifacts. CT/Pelvis without IV Contrast IMPRESSION: Status post partial colectomy with a ostomy in the right lower quadrant containing nondilated small bowel loops. Filter is seen in the inferior vena cava. Vena cava. Electronically Signed: Ralph Morillo, at 11:36 EDT , Service support ,
== END ==
PROVIDERS: PCP Internal Medicine; Referring Provider Surgery; Visit Provider Surgery
DX: K62.89 Other specified diseases of anus and rectum (principal); K62.5 Hemorrhage of anus and rectum; Z93.3 Colostomy status
CPT/HCPCS: 72192

== ENCOUNTER 2020-02-10 20:29 | Inpatient (IN) | payer MEDICARE, SELFPAY ==
[2020-02-10 20:30] VITALS: BP 119/76; PULSE 86; RESP 19; TEMP 36.1; O2SAT 98; BMI 39.0
--- NOTE | 2020-02-10 21:41 | CT_ITS ---
STUDY: CT ABDOMEN AND PELVIS WITHOUT CONTRAST REASON FOR EXAM: Female, 69 years old. Abdominal pain. Blocked colostomy. RADIATION DOSAGE (If Supplied By Facility): CTDIvol = ( 8.78 ) mGy, DLP = ( 379.29 ) mGycm TECHNIQUE: Transaxial images were obtained from the dome of the diaphragm to the symphysis pubis without oral contrast, and without intravenous contrast. Sagittal and coronal images were reconstructed. Individualized dose optimization techniques were used for this CT. COMPARISON: 01/24/2017. FINDINGS: The visualized lung bases are unremarkable. The visualized portions of the heart are within normal limits. Normal liver. There is non-visualization of the gallbladder, which may be secondary to either contraction or a prior cholecystectomy. Normal spleen. Normal pancreas. Normal bilateral adrenal glands. Normal right kidney. Normal left kidney with stable 3 cm lower pole cyst. Evaluation of the GI tract is limited by the absence of oral contrast. Cannot exclude stomach wall thickening. Fluid and air distended small bowel throughout the abdomen, possibly related to the moderately large right parastomal hernia which contains several small bowel loops, more than on the previous exam. There appears to have been previous colectomy.. There is diffuse atherosclerotic calcification of the abdominal aorta, without a demonstrated aneurysm. There is an IVC filter in place. Normal retroperitoneum. Normal urinary bladder. There is absence of the uterus consistent with a prior hysterectomy. Normal osseous structures. CT/Abdomen/Pelvis without Cont IMPRESSION: Findings most consistent with small bowel obstruction likely related to a moderate right parastomal hernia containing numerous loops of bowel and overall larger than previous study. Electronically Signed: Tristan Brady MD at 22:44 EDT , Service support ,
--- NOTE | 2020-02-10 21:42 | ED.VIS.GI ---
History of Present Illness Chief Complaint: Abd Pain Informant: Patient - Abdominal Pain/Flank Pain Onset: Today Context: Gradual Onset Timing: Continuous, Waxes and wanes Quality: Aching Location: Diffuse - worse in RLQ Current Severity: Severe Maximum Severity: Severe Worsened by: Nothing Relieved by: Nothing - Nausea/Vomiting/Emesis GI Symptom: Nausea, Vomiting Onset: Today Quality: Nonbilious, Coffee ground - after drinking coffee Severity: Moderate - Diarrhea/Melena/Hematochezia GI Symptom: - - zero ileostomy output since pain started this AM. Negative for: Diarrhea, Melena, Hematochezia Associated Symptoms: Negative for: Dysuria, Frequency, Hematuria, Urgency Narrative: Patient has some type of leukemia, had a colectomy and ileostomy at [facility], has had several bowel obstructions in the past and feels like she is having another one today. No blood from her ileostomy. 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 (2) Bone marrow transplant status Status: Chronic Comment: in spring (3) Hypothyroidism Status: Chronic (4) Nnbye-ezgbwp-tsrw disease Status: Resolved Past Medical History - Allergies and Home Meds Allergies/Adverse Reactions: Allergies Gadolinium-MRI Contrast Medium [CONTRAST] Allergy (Verified 02/10/20 20:31) Hives Iodinated Contrast Media [Iodinated Contrast Media - IV Dye] Allergy (Verified 02/10/20 20:31) Hives iodine Allergy (Verified 02/10/20 20:31) Hives Primary Care Physician: Dorcas Prince MD [Primary Care Provider] - Surgical History: - - Colectomy, bone marrow transplant, ileostomy Lives: Spouse/ Significant Other Smoking Status: Never smoker - Family History Maternal Family History: Reports: - - History of leukemia pain Maternal cousin but not in first-degree family relative Review of Systems General: Reports: Malaise. Denies: Chills, Fever, Sweats Eyes: Denies: Visual changes - bilaterally, Diplopia ENT: Denies: Rhinorrhea, Sore throat Cardiovascular: Denies: Chest pain, Palpitations Respiratory: Denies: Dyspnea, Cough, Dyspnea on exertion Gastrointestinal: Reports: Abdominal pain, Nausea, Vomiting. Denies: Diarrhea, Melena, Hematochezia Genitourinary: Denies: Dysuria, Hematuria, Frequency Musculoskeletal: Denies: Neck pain, Back pain, Extremity Pain Skin: Denies: Rash, Wounds Neurological: Denies: Headache, Weakness, Numbness Physical Exam Vital Signs/Narrative: Vital Signs Temp Pulse Resp BP Pulse Ox 02/10/20 20:30 97 F L 86 19 H 119/76 98 General: Well nourished, Well developed, Acute Distress - Painful distress Head: Normocephalic, Atraumatic Eyes: Perrl, EOMI ENT: Moist mucous membranes, No rhinorrhea Neck: Supple, Nontender Cardiovascular: Regular rate, Regular rhythm, No murmurs Respiratory: No distress, CTA bilaterally, Chest nontender Abdomen: Soft, Tender - Throughout abdomen, worst around right ileostomy, Guarding, Hypoactive bowel sounds, Ventral hernia - Involving ileostomy. Negative for: Rebound tenderness Back: Nontender, Normal Inspection Extremities: Nontender, No edema. Negative for: Calf Tenderness Skin: Normal color, No rash, No Trauma Neurological: Alert, Oriented x3, Cranial nerves II-XII grossly intact, Normal Strength, Normal Sensation Psychological: Normal Mood, Tearful Diagnostic/Tx/Re-eval Impressions Abdomen/Pelvis CT 02/10/20 21:41 IMPRESSION: Findings most consistent with small bowel obstruction likely related to a moderate right parastomal hernia containing numerous loops of bowel and overall larger than previous study. Electronically Signed: Tristan Brady MD at 22:44 EDT , Service support , 02/10/20 21:41 Abdomen/Pelvis without Cont [CT] Stat Laboratory Results 02/10/20 02/10/20 22:40 22:40 WBC 17.8 H RBC 4.38 Hgb 14.6 Hct 42.7 MCV 97.5 MCH 33.3 H MCHC 34.2 RDW Std Deviation 55.3 H RDW Coeff of Saloni 15.3 H Plt Count 238 MPV 10.6 Immature Gran % (Auto) 0.800 Neut % (Auto) 46.4 L Lymph % (Auto) 42.8 H [place] % (Auto) 8.8 Eos % (Auto) 1.0 Baso % (Auto) 0.2 Absolute Neuts (auto) 8.2 H Absolute Lymphs (auto) 7.59 H Nucleated RBC % 0 Differential Comment SCANNED Diff Path Review May foll Smudge Cells RARE Platelet Estimate ADEQUATE Anisocytosis 1+ Sodium 140 Potassium 2.9 L Chloride 109 H Carbon Dioxide 20.0 L Anion Gap 11 BUN 25 H Creatinine 0.89 Estim Creat Clear Calc 81.01 Est GFR (MDRD) Af Amer 81 Est GFR (MDRD) Non-Af 67 BUN/Creatinine Ratio 28.2 H Glucose 140 H Calcium 8.8 Total Bilirubin 0.50 AST 32 ALT 37 Alkaline Phosphatase 130 H Total Protein 7.1 Albumin 3.0 L Globulin 4.1 Albumin/Globulin Ratio 0.7 L Lipase 65 L - Medical Decision Making With patient's verbal consent, I partially detached her ileostomy bag from its disc and digitally examined the ileostomy. It was fairly narrow about 3 cm in, I was able to penetrate that without any major discomfort, bleeding, or tearing, I did not feel any obvious impaction, and I did not result in any significant ileostomy output, although she did start developing mild nonbloody ileostomy output after that. CT shows small bowel obstruction with multiple loops in the parastomal hernia which is larger than the previous study, likely related to that. Her white blood count is 17.8, she is feeling better after Dilaudid, Zofran, and Phenergan which she required later due to continued vomiting. Her abdomen is soft and nonsurgical / nonacute at this time. I discussed with her concerning her plan with her [facility] surgeon, she states they have discussed fixing this hernia in the past but she states that she was told it is a very high risk surgery She states this is her fifth bowel obstruction since her ileostomy, approximately. Discussed with Dr. Price with surgery, he states this will require a colorectal specialist and she should be transferred to [facility] if that is where she has established care. I discussed with the colorectal surgeon on-call at [facility], Dr. Johnson, she recommends that we admit her locally for 24 hours for observation. If she does not improve by then, they will gladly accept her to [facility] but they recommend conservative management at this time. Discussed with hospitalist. ED Disposition - Plan for ED Patient: Disposition: Acute Care Hospital [facility] Diagnosis: Small bowel obstruction, Parastomal hernia, AML (acute myeloid leukemia) in remission Referrals: Dorcas Prince MD [Primary Care Provider] -
[2020-02-10] MEDS: HYDROmorphone 1 MG/ML Syringe IV (21:52)
[2020-02-10] MEDS: Ondansetron 4 MG/2 ML Vial IV (21:52)
[2020-02-10] MEDS: 0.9% Normal Saline 1,000 ML 1000 ML IV (21:56)
--- NOTE | 2020-02-10 22:27 | ED.RN ---
Port accessed . pt tastes saline. no blood return noted. peripheral IV started to medicate patient for pain and nausea.
[2020-02-10] MEDS: proMETHazine 25 MG/ML Syringe 12.5 MG IV (22:43)
[2020-02-10 22:49] VITALS: BP 126/71; PULSE 94; RESP 18; TEMP 36.1; O2SAT 90
[2020-02-10 22:50] LABS: Absolute Lymphocyte Count 7.59 X10^3/uL (0.83-4.51); Absolute Neutrophil Count 8.2 X10^3/uL (2.0-7.7); Basophil# 0.04 X10^3/uL; Basophil% 0.2 % (0-1); Eosinophil# 0.17 X10^3/uL; Hematocrit 42.7 % (37-47); Hemoglobin 14.6 g/dL (12.0-15.0); Lymphocyte # 7.59 X10^3/ul (4.0); Lymphocyte % 42.8 % (19-41); Mean Corp Hgb Conc 34.2 g/dL (32-36); Mean Corpuscular Hgb 33.3 pg (27.0-32.0); Mean Corpuscular Volume 97.5 fL (81-99); Mean Platelet Vol. 10.6 fl (6.2-12.0); Monocyte# 1.57 X10^3/uL; Monocyte% 8.8 % (0-10); NRBC Flagged by Analyzer 0 % (0-5); Neutrophil # 8.24 X10^3/uL (2.7-7.7); Neutrophil % 46.4 % (47-70); POSITIVE DIFFERENTIAL YES; POSITIVE MORPHOLOGY YES; Platelet Count 238 K/mm3 (150-450); RBC Distribution Width CV 15.3 % (11.6-14.6); RBC Distribution Width SD 55.3 fl (35.1-43.9); Red Blood Count 4.38 M/mm3 (4.2-5.4); White Blood Count 17.8 K/mm3 (4.4-11.0)
[2020-02-10 22:57] LABS: Differential Indicated SCAN CRITERIA MET
[2020-02-10 23:16] LABS: Differential Comment SCANNED; Platelet Estimate ADEQUATE (ADEQ)
[2020-02-10 23:17] LABS: Anisocytosis 1+; Smudge Cells RARE
[2020-02-10 23:35] LABS: ALB/GLOB Ratio 0.7 RATIO (0.9-2.4); AST(SGOT) 32 U/L (15-37); Alanine Aminotransfer ALT/SGPT 37 U/L (13-56); Alkaline Phosphatase 130 U/L (45-117); Anion Gap 11 (5-15); BUN 25 mg/dL (7-18); BUN/Creat Ratio 28.2 RATIO (10-20); Calcium,Total 8.8 mg/dL (8.5-10.1); Chloride 109 mmol/L (98-107); Creatinine, Serum 0.89 mg/dL (0.55-1.02); EST Glomerular Filtration Rate 67 mL/min (>60); Est Glom Filt Rate - Afr Amer 81 mL/min (>60); Estimated Creatinine Clearance 81.01 ml/min; Globulin 4.1 g/dL (2.2-4.2); Glucose 140 mg/dL (74-106); Lipase 65 U/L (73-393); Potassium 2.9 mmol/L (3.5-5.1); Protein, Total 7.1 g/dL (6.4-8.2); Sodium Level 140 mmol/L (136-145)
[2020-02-11] VITALS (7 sets, daily range): BP systolic 108–149; BP diastolic 61–85; PULSE 79–102; RESP 16–19; TEMP 36.3–37.1; O2SAT 96–100; BMI 31.2; BMI 31.3
[2020-02-11 00:06] LABS: Bedside Glucose 105 mg/dL (70-110)
--- NOTE | 2020-02-11 00:46 | PCM.HP.STD ---
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 She described her pain as severe and pulsatile. Her pain worsened with walking and it improved with holding her abdomen. Pain medicine given at the emergency department also helped relieve the pain. Associated with her symptoms is nausea and vomiting. Emergency department doctor did digital manipulation of stoma and fecal contents began to empty into ileostomy. CT of the abdomen and pelvis was remarkable for small bowel obstruction. Reportedly she has had 4 previous bowel obstructions. In previous SBOs she did not have cases she did not have surgery or NG tube. 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 In regard to her hernia reportedly surgery has not been done because patient is a very high risk. Emergent department doctor discussed the case with general surgeon, Dr. Price who recommended that the case be discussed with [facility] where patient her colectomy. Emergency department doctor discussed the case with colorectal surgeon at [facility] who recommended that patient be observed for 24 hours and if her symptoms does not improve patient be transferred to [facility]. Per emergency department doctor colorectal surgeon recommended conservative treatment for now. Past Medical History Past Medical History (Chronic Problems): Chronic Problems (This Medical Record has been edited. 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 Allergies Gadolinium-MRI Contrast Medium [CONTRAST] Allergy (Verified 02/10/20 20:31) Hives Iodinated Contrast Media [Iodinated Contrast Media - IV Dye] Allergy (Verified 02/10/20 20:31) Hives iodine Allergy (Verified 02/10/20 20:31) Hives Home Medications: Ambulatory Orders Medication Instructions Recorded Magnesium Oxide [Mag-Ox 400] 800 mg PO BID 09/08/15 Acyclovir [Zovirax] 400 mg PO BID 07/27/16 Apixaban [Eliquis] 5 mg PO BID 07/27/16 Ergocalciferol [Vitamin D] 50,000 unit PO FR 07/27/16 Ondansetron [Zofran] 8 mg PO Q8H PRN PRN 07/27/16 Estradiol [Estrace Vaginal Cream] 1 dose VAGINAL DAILY 07/26/17 Sirolimus [Rapamune] 0.5 mg PO MOWEFR 07/26/17 Esomeprazole Magnesium 40 mg PO DAILY 05/06/19 Folic Acid 400 mcg PO DAILY 05/06/19 L.acidoph,Paracasei, B.lactis 1 ea PO DAILY 05/06/19 [Probiotic] Levothyroxine Sodium [Synthroid] 125 mcg PO MOTUWETHFRSA 05/06/19 Vitamin B Complex 1 ea PO DAILY 05/06/19 Multivit-Min/FA/Lycopen/Lutein 1 ea PO DAILY 02/10/20 [Centrum Silver Tablet] Surgical History: - - Colectomy, bone marrow transplant, ileostomy Psychiatric History: No pertinent psych hx PAIRER ODDS History: No pertinent PAIRER ODDS history Lives: Spouse/ Significant Other Smoking Status: Never smoker - *Family History Maternal History Items: Diabetes, Heart Disease, - - History of leukemia pain Maternal cousin but not in first-degree family relative Paternal History Items: Cancer - Is father from liver cancer at the age of 84. Reportedly when his father was young he was an alcoholic. Review of Systems Constitutional: Denies: Chills, Fever, Weight Change HEENT: Denies: Head Aches, Sinus Congestion, Sinus Drainage Cardiovascular: Denies: Chest Pain, Palpitations Respiratory: Denies: Cough, Shortness of breath at rest, Sputum production Gastrointestinal: Reports: Abdominal Pain, Nausea, Vomiting Genitourinary: Denies: Dysuria Musculoskeletal: Denies: Joint Pain, Joint Tenderness Skin: Denies: Rash, Wounds Neurological: Denies: Numbness, Tingling, Focal weakness Psychiatric: Denies: Anxiety, Depression, Homicidal Ideations, Suicidal Ideations Hematologic/ Lymphatic: Denies: Easy Bruising, Easy Bleeding VTE Information - Inpt Only VTE Present on Admission: No VTE Mechan Device Prophylaxis: None VTE Pharm Prophylaxis ordered?: No Reason prophylaxis not ordered:: Treatment Not Indicated - Started on heparin drip for history of DVT while off home Eliquis. Patient Problems: Active and Suspected Problems (This Medical Record has been edited. Action required.) Small bowel obstruction (Acute) Parastomal hernia (Acute) UTI (urinary tract infection) (Acute) - Physical Exam Vitals/I&O's: Vital Signs Temp Pulse Resp BP Pulse Ox 97.3 F L 102 H 16 149/84 H 100 02/11/20 00:01 02/11/20 00:01 02/11/20 00:01 02/11/20 00:01 02/11/20 00:01 Oxygen Delivery Method Room Air Weight: 84.822 kg Body Mass Index (BMI) 39.0 Intake and Output for Last 24 Hours 02/09/20 02/10/20 02/11/20 23:59 23:59 23:59 Intake Total 1000 / 1000 Balance 1000 / 1000 General: Alert, Oriented x3, Cooperative HEENT: Atraumatic, PERRLA, EOMI, Normocephalic Neck: Supple, No JVD, Negative Carotid Bruits Lungs: Clear to auscultation, Normal air movement Cardiovascular: Regular rate, Normal S1, Normal S2, No murmurs Abdomen: Bowel Sounds Present, Soft, Tender, - - Ileostomy present. Extremities: No edema, Capillary Refill Less than 3 Seconds Skin: No rashes, No breakdown Musculoskeletal: No Tenderness to Palpation of Joints or Extremities Neurological: Cranial nerves II-XII grossly intact Psych/Mental Status: Normal Affect, Appropriate Laboratory Results 02/10/20 22:40: WBC 17.8 H, RBC 4.38, Hgb 14.6, Hct 42.7, MCV 97.5, MCH 33.3 H, MCHC 34.2, RDW Std Deviation 55.3 H, RDW Coeff of Saloni 15.3 H, Plt Count 238, MPV 10.6, Immature Gran % (Auto) 0.800, Neut % (Auto) 46.4 L, Lymph % (Auto) 42.8 H, [place] % (Auto) 8.8, Eos % (Auto) 1.0, Baso % (Auto) 0.2, Absolute Neuts (auto) 8.2 H, Absolute Lymphs (auto) 7.59 H, Nucleated RBC % 0, Differential Comment SCANNED, Diff Path Review May foll, Smudge Cells RARE, Platelet Estimate ADEQUATE, Anisocytosis 1+ 02/10/20 22:40: Sodium 140, Potassium 2.9 L, Chloride 109 H, Carbon Dioxide 20.0 L, Anion Gap 11, BUN 25 H, Creatinine 0.89, Estim Creat Clear Calc 81.01, Est GFR (MDRD) Af Amer 81, Est GFR (MDRD) Non-Af 67, BUN/Creatinine Ratio 28.2 H, Glucose 140 H, Calcium 8.8, Total Bilirubin 0.50, AST 32, ALT 37, Alkaline Phosphatase 130 H, Total Protein 7.1, Albumin 3.0 L, Globulin 4.1, Albumin/Globulin Ratio 0.7 L, Lipase 65 L 02/10/20 23:59: POC Glucose 105 Assessment/Plan All Active Problems (This Medical Record has been edited. Action required.) Small bowel obstruction (Acute) Parastomal hernia (Acute) Ltsax-lcnfhb-hdqa disease (Resolved) UTI (urinary tract infection) (Acute) Hypokalemia (Acute) Pyelonephritis, acute (Ruled-out) Acute leukemia (Resolved) Febrile neutropenia (Resolved) The patient is a 69 year old F with a significant history of AML; DVT; parastomal hernia; colectomy with ileostomy who presented to the emergency department with a parastomal pain; nausea and vomiting and with CT abdomen and pelvis finding of small bowel obstruction; and also with abnormal urinalysis and leukocytosis consistent with probable acute cystitis. Small bowel obstruction CT of abdomen and pelvis points to small bowel obstruction secondary to hernia.. Per discussion between colorectal surgeon and emergency department doctor will keep patient at our hospital for conservative therapy but if patient does not improve we will transfer patient. At the time of examination there was considerable output in ileostomy. We will keep n.p.o. for now. Because patient complained of severe oral dryness and inability to talk with dry mouth it is okay for sips of water. Okay to take oral meds. Patient received Dilaudid at emergency department that helped her. We will continue patient on Dilaudid PRN. Zofran PRN and Compazine PRN ordered. IV fluid hydration. History of DVT and probable paroxysmal A. fib. Patient is on Eliquis. In the past patient had DVT. Also patient thought that electrolyte imbalance might have led to A. fib but she is unsure. She may escape surgery for a small bowel obstruction as there is now considerable output in ileostomy. However will hold Eliquis for now and will put patient on weight-based heparin drip. If patient continues to improve consider stopping heparin and restarting patient on her Eliquis. Acute cystitis Patient with leukocytosis. Urinalysis is abnormal. Will start patient on ceftriaxone. Hypokalemia On presentation potassium was 2.9. This may be secondary to acute nausea and vomiting and history of ileostomy. Replace with 40 mEq bolus by Port-A-Cath. Also placed on normal saline with potassium. Cjprf-nujxbt-jevo disease Acyclovir continued. Sevelamer was continued. She reported history of dry eyes secondary to dorgb-ndiago-pcla disease. On eye ointments. Artificial tears ordered while inpatient. Hypomagnesemia Magnesium continued. GERD PPI continued. DVT prophylaxis Heparin drip for history of DVT. Inpatient E&M: [id number] Init Hosp L3
[2020-02-11 00:52] LABS: Bacteria 0 SEEN /hpf (None Seen); Mucous, Urine 0 SEEN /hpf (<or=2+); Squamous Epithelial Cells - UA 0 SEEN /hpf (5-10)
[2020-02-11 00:53] LABS: Color, Urine Yellow (Yellow); Glucose, Dipstick Normal (Normal); Ketone-Dipstick 5 mg/dl (Negative); Leukocyte Esterase-Dipstick 100 /ul (Negative); Nitrite-Dipstick Negative (Negative); Occult Blood-Urine 10 /ul (Negative); Protein-Dipstick 15 mg/dl (Negative); Specific Gravity, Urine 1.025 (1.002-1.030); Urine Bilirubin Dipstick Negative (Negative); Urine Clarity Clear (Clear); Urine Urobilinogen Normal (Normal)
[2020-02-11 00:59] LABS: Red Blood Cells-Urine 0-5 SEEN /hpf (0-5); White Blood Cells 10-25 SEEN /hpf (0-5)
--- NOTE | 2020-02-11 01:29 | NURSING ---
PT IS NOW BEING ADMITTED TO THE FLOOR BECAUSE THE [facility] STATES THAT THE PT NEEDS TO BE UNDER OBSERVATION FOR 24 HOURS AND IF THERE ARE CHANGES TO SEND THE PT, IF THERE ARE NO CHANGES THE PT CAN STAY ON THE FLOOR.
[2020-02-11] MEDS: 0.9% Saline Lock 10 ML Syringe IV ×4 (02:35→15:54)
[2020-02-11 02:39] LABS: International Normalized Ratio 1.2; Prothrombin Time (Protime)PT. 14.8 SECONDS (11.7-14.9)
[2020-02-11 02:40] LABS: Partial Thromboplast Time 32.4 Seconds (24.1-36.2)
[2020-02-11] MEDS: Heparin Injection (Vial) 5,000 UNIT/ML VIAL 4500 UNIT IV (02:46)
[2020-02-11] MEDS: HEPARIN/D5w 25,000 UNITS 25,000 UNITS/250 ML IV.SOLN. 10 UNITS IV (02:52)
[2020-02-11] MEDS: Glycerin/Hypromellose/PEG400 15 ml Bottle 1 DRP EACH EYE (02:53)
[2020-02-11] MEDS: Potassium Chloride 40 MEQ in 0.9% Normal Saline 1,000 ML 100 MEQ IV ×2 (03:47→15:53)
[2020-02-11] MEDS: Ceftriaxone 1 GM/50 ML BAG IV ×2 (03:50→22:45)
[2020-02-11 06:06] LABS: Absolute Lymphocyte Count 4.79 X10^3/uL (0.83-4.51); Absolute Neutrophil Count 8.4 X10^3/uL (2.0-7.7); Basophil# 0.03 X10^3/uL; Basophil% 0.2 % (0-1); Eosinophil# 0.32 X10^3/uL; Eosinophils% 2.1 % (0-5); Hematocrit 40.1 % (37-47); Hemoglobin 13.2 g/dL (12.0-15.0); Lymphocyte # 4.79 X10^3/ul (4.0); Lymphocyte % 31.9 % (19-41); Mean Corp Hgb Conc 32.9 g/dL (32-36); Mean Corpuscular Volume 100.3 fL (81-99); Mean Platelet Vol. 10.5 fl (6.2-12.0); Monocyte# 1.42 X10^3/uL; Monocyte% 9.5 % (0-10); NRBC Flagged by Analyzer 0 % (0-5); Neutrophil # 8.37 X10^3/uL (2.7-7.7); Neutrophil % 55.8 % (47-70); Platelet Count 272 K/mm3 (150-450); RBC Distribution Width CV 15.4 % (11.6-14.6); RBC Distribution Width SD 57.1 fl (35.1-43.9)
[2020-02-11 06:24] LABS: Anion Gap 6 (5-15); BUN 20 mg/dL (7-18); BUN/Creat Ratio 25.9 RATIO (10-20); Calcium,Total 8.1 mg/dL (8.5-10.1); Chloride 112 mmol/L (98-107); Creatinine, Serum 0.77 mg/dL (0.55-1.02); EST Glomerular Filtration Rate 79 mL/min (>60); Est Glom Filt Rate - Afr Amer 95 mL/min (>60); Estimated Creatinine Clearance 58.65 ml/min; Glucose 103 mg/dL (74-106); Potassium 4.5 mmol/L (3.5-5.1); Sodium Level 141 mmol/L (136-145)
[2020-02-11 09:28] LABS: Partial Thromboplast Time 169.7 Seconds (24.1-36.2)
[2020-02-11] MEDS: Folic Acid 1 MG Tablet PO (10:06)
[2020-02-11] MEDS: Acyclovir 200 MG Capsule 400 MG PO ×2 (10:07→22:49)
[2020-02-11] MEDS: Vitamin B Comp W-C Capsule 1 CAP PO (10:07)
[2020-02-11] MEDS: Multivitamins,Ther W-Minerals Tablet 1 TABLET PO (10:07)
[2020-02-11] MEDS: Pantoprazole Sodium 40 MG Tablet PO (10:07)
[2020-02-11] MEDS: Magnesium Oxide 400 MG Tablet 800 MG PO ×2 (10:07→22:49)
--- NOTE | 2020-02-11 11:52 | PN_ITS ---
Patient Problems: Active and Suspected Problems (This Medical Record has been edited. Action required.) Small bowel obstruction (Acute) Parastomal hernia (Acute) UTI (urinary tract infection) (Acute) Subjective: Patient seen and examined. She was admitted with a complaint of pain around the site of her stoma. She had assisted nausea and vomiting. CT of the abdomen and pelvis done showed small bowel obstruction which resolved spontaneously. She had digital manipulation of the stoma and fecal contents being on to empty into the ileostomy. Patient also has a parastomal hernia but has not had surgery for it because she is deemed very high risk. She has a history of acute myeloid leukemia and has been following up at [facility]. Her surgeon is also at [facility]. Patient seen today. She has no complaints and feels much better. Abdominal pain is resolved. She is having continuous output from her ileostomy. Review of symptoms otherwise negative. She has not had any nausea or vomiting. Vitals/I&O's: Vital Signs Temp Pulse Resp BP Pulse Ox 98.7 F 81 16 111/61 98 02/11/20 08:25 02/11/20 08:25 02/11/20 08:25 02/11/20 08:25 02/11/20 08:25 Oxygen Delivery Method Room Air Weight: 152 lb 1.903 oz Body Mass Index (BMI) 31.2 Intake and Output for Last 24 Hours 02/09/20 02/10/20 02/11/20 23:59 23:59 23:59 Intake Total 1000 / 1000 271.00 / 271.00 Output Total 225 / 225 Balance 1000 / 1000 46.00 / 46.00 General: Alert, Oriented x3, Cooperative, No apparent distress HEENT: Atraumatic, PERRLA, EOMI, Normocephalic Oral: Dry Mucosa Neck: Supple, No JVD, Negative Carotid Bruits Lungs: Clear to auscultation, Normal air movement, No rhonchi, No wheeze, No rales Cardiovascular: Regular rate, Regular Rhythm, Normal S1, Normal S2, No murmurs Abdomen: Bowel Sounds Present, Soft, - - ileostomy bag containing loose stool; para stomal hernia which is soft, non tender, with good bowel sounds Extremities: No clubbing, No cyanosis, No edema, Capillary Refill Less than 3 Seconds Skin: No rashes, No breakdown Musculoskeletal: No Tenderness to Palpation of Joints or Extremities Lymphatic: No Cervical, Supraclavicular, or Inguinal Adenopathy Neurological: Cranial nerves II-XII grossly intact, Neuro grossly intact, Motor Exam 5/5 strength throughout Psych/Mental Status: Normal Affect, Appropriate, Alert and oriented to time, place, person, mood and affect Laboratory Results 02/10/20 22:40: WBC 17.8 H, RBC 4.38, Hgb 14.6, Hct 42.7, MCV 97.5, MCH 33.3 H, MCHC 34.2, RDW Std Deviation 55.3 H, RDW Coeff of Saloni 15.3 H, Plt Count 238, MPV 10.6, Immature Gran % (Auto) 0.800, Neut % (Auto) 46.4 L, Lymph % (Auto) 42.8 H, Casey % (Auto) 8.8, Eos % (Auto) 1.0, Baso % (Auto) 0.2, Absolute Neuts (auto) 8.2 H, Absolute Lymphs (auto) 7.59 H, Nucleated RBC % 0, Differential Comment SCANNED, Diff Path Review May foll, Smudge Cells RARE, Platelet Estimate ADEQUATE, Anisocytosis 1+ 02/10/20 22:40: Sodium 140, Potassium 2.9 L, Chloride 109 H, Carbon Dioxide 20.0 L, Anion Gap 11, BUN 25 H, Creatinine 0.89, Estim Creat Clear Calc 81.01, Est GFR (MDRD) Af Amer 81, Est GFR (MDRD) Non-Af 67, BUN/Creatinine Ratio 28.2 H, Glucose 140 H, Calcium 8.8, Total Bilirubin 0.50, AST 32, ALT 37, Alkaline Phosphatase 130 H, Total Protein 7.1, Albumin 3.0 L, Globulin 4.1, Albumin/Globulin Ratio 0.7 L, Lipase 65 L 02/10/20 22:40: PT 14.8, INR 1.2, APTT 32.4 02/10/20 23:59: POC Glucose 105 02/11/20 00:46: Urine Color Yellow, Urine Clarity Clear, Urine pH 5.0, Ur Specific Lawrence 1.025, Urine Protein 15 H, Urine Glucose (UA) Normal, Urine Ketones 5 H, Urine Occult Blood 10 H, Urine Nitrite Negative, Urine Bilirubin Negative, Urine Urobilinogen Normal, Ur Leukocyte Esterase 100 H, Urine RBC 0-5 SEEN, Urine WBC 10-25 SEEN, Ur Squamous Epith Cells 0 SEEN, Urine Bacteria 0 SEEN, Urine Mucus 0 SEEN 02/11/20 05:56: WBC 15.0 H, RBC 4.00 L, Hgb 13.2, Hct 40.1, MCV 100.3 H, MCH 33.0 H, MCHC 32.9, RDW Std Deviation 57.1 H, RDW Coeff of Saloni 15.4 H, Plt Count 272, MPV 10.5, Immature Gran % (Auto) 0.500, Neut % (Auto) 55.8, Lymph % (Auto) 31.9, Casey % (Auto) 9.5, Eos % (Auto) 2.1, Baso % (Auto) 0.2, Absolute Neuts (auto) 8.4 H, Absolute Lymphs (auto) 4.79 H, Nucleated RBC % 0 02/11/20 05:56: Sodium 141, Potassium 4.5, Chloride 112 H, Carbon Dioxide 23.0, Anion Gap 6, BUN 20 H, Creatinine 0.77, Estim Creat Clear Calc 58.65, Est GFR (MDRD) Af Amer 95, Est GFR (MDRD) Non-Af 79, BUN/Creatinine Ratio 25.9 H, Glucose 103, Calcium 8.1 L 02/11/20 08:40: APTT 169.7 H* Diagnostic Data Abdomen/Pelvis CT 02/10/20 21:41 IMPRESSION: Findings most consistent with small bowel obstruction likely related to a moderate right parastomal hernia containing numerous loops of bowel and overall larger than previous study. Electronically Signed: Tristan Brady MD at 22:44 EDT , Service support , Current Medications Acyclovir (Zovirax) 400 mg PO BID [facility] Last Admin: 02/11/20 10:07 Dose: 400 mg Documented by: Dextrose (D50w Syringe) 0 gm IV X1 PRN; Protocol PRN Reason: Hypoglycemia Folic Acid (Folic Acid) 1 mg PO DAILYCM [facility] Last Admin: 02/11/20 10:06 Dose: 1 mg Documented by: Glucagon () 1 mg IM .X1 PRN PRN Reason: Hypoglycemia Heparin Sodium (Porcine) (Heparin Na) 0 unit IV UD PRN; Protocol Hydromorphone HCl (Dilaudid Inj) 1 mg IV Q4H PRN PRN PRN Reason: Pain Score 6-10/10 Potassium Chloride 40 meq/ (Sodium Chloride) 1,020 mls @ 100 mls/hr IV .[id number] [facility] Last Infusion: 02/11/20 05:43 Dose: 100 mls/hr Documented by: Heparin Sodium/Dextrose () 25,000 units in 250 mls @ 10 mls/hr IV .Q25H [facility]; Protocol Last Titration: 02/11/20 09:36 Dose: 0 units/hr, 0 mls/hr Documented by: Sodium Chloride () 250 mls @ 15 mls/hr IV .[id number] PRN PRN Reason: Saline Flush Last Infusion: 02/11/20 04:07 Dose: Infused Documented by: Ceftriaxone Sodium (Rocephin) 1 gm in 50 mls @ 100 mls/hr IV QHS [facility] Last Infusion: 02/11/20 04:24 Dose: Infused Documented by: Lactobacillus Acidophilus (Acidophilus) 1 tablet PO DAILY [facility] Last Admin: 02/11/20 10:07 Dose: 1 tablet Documented by: Levothyroxine Sodium (Synthroid) 125 mcg PO MoTuWeThFrSa@0600 [facility] Magnesium Oxide (Mag-Ox 400) 800 mg PO BID [facility] Last Admin: 02/11/20 10:07 Dose: 800 mg Documented by: Melatonin (Melatonin) 3 mg PO QHS PRN PRN PRN Reason: INSOMNIA Multivitamins (Allbee W/C Caplet, Thera B Comp/C) 1 capsule PO DAILY [facility] Last Admin: 02/11/20 10:07 Dose: 1 capsule Documented by: Multivitamins/Minerals (Multivitamin With Minerals (Bkc)) 1 tablet PO DAILY@0800 [facility] Last Admin: 02/11/20 10:07 Dose: 1 tablet Documented by: Non-Formulary Medication (Sirolimus [Rapamune]) 0.5 mg PO X1 [facility] Ondansetron HCl (Zofran) 4 mg IV Q8H PRN PRN PRN Reason: NAUSEA/VOMITING Pantoprazole Sodium (Protonix) 40 mg PO DAILY [facility] Last Admin: 02/11/20 10:07 Dose: 40 mg Documented by: Prochlorperazine Edisylate (Compazine Iv) 5 mg IV Q4H PRN PRN PRN Reason: Breakthrough nausea/vomiting Sodium Chloride () 10 - 40 ml IV UD PRN PRN Reason: SALINE FLUSH Last Admin: 02/11/20 02:46 Dose: 10 ml Documented by: STROKE Vital Signs/Narrative: Vital Signs Temp Pulse Resp BP Pulse Ox 02/11/20 08:25 98.7 F 81 16 111/61 98 Medical Necessity - Tobacco Use Smoking Status: Never smoker Assessment/Plan All Active Problems (This Medical Record has been edited. Action required.) Small bowel obstruction (Acute) Parastomal hernia (Acute) Pohrv-rtqypa-mqbw disease (Resolved) UTI (urinary tract infection) (Acute) Hypokalemia (Acute) Pyelonephritis, acute (Ruled-out) Acute leukemia (Resolved) Febrile neutropenia (Resolved) 1.Small bowel obstruction * resolving. abdominal pain is much better. she is now having output via her ileostomy * currently on clear liquid diet; will advance as tolerated * case was discussed with her surgeons at [facility], who recommended conservative management for now * plan is to transfer to [facility] if she gets worse 2. History of DVT and paroxysmal Afib: * was started on heparin drip, and eliquis held on admission * consider resuming eliquis tomorrow * 3. Abnormal urinalysis: * UA showed no bacteria but 10-25 WBC and 100 leukocyte esterase. * Review of previous urinalysis shows that she has chronically elevated leukocyte esterase from 2018. BBC is well also only 10-25 per high-power field. * WBC was 17.8 on admission and is down to 15 now. This may be reactive. Will continue IV antibiotics for today * 4. Hypokalemia: Potassium was 2.9 on admission and was replaced. Is now normal. 4. History of acute myeloid leukemia: Stable. Follows with oncology [facility] 6. History of pucss-ecnskf-rjtv disease: On acyclovir and sirolimus 7. Hypothyroidism: On Synthroid DVT prophylaxis: Not indicated as she is on heparin drip. Inpatient E&M: [id number] [facility] Hosp L2
--- NOTE | 2020-02-11 12:55 | RAD_ITS ---
STUDY: X-RAY - ABDOMEN/PELVIS REASON FOR EXAM: Female, 69 years old. SBO TECHNIQUE: AP supine and upright views of the abdomen and pelvis. COMPARISON: CT scan 02/10/2020. FINDINGS: Normal visualized lung bases. There is an nonspecific bowel gas pattern. Patient has a right lower quadrant ostomy with a stomal hernia which is not well seen on these plain films. There is in fact very little bowel gas and a single small bowel loop that projects in the mid abdomen is not distended. There is no demonstrated free abdominal air. The visualized liver, spleen and kidneys are grossly normal in size and morphology. IVC filter in typical location. Normal soft tissue structures. Normal visualized osseous structures. RAD/Abd Decub and/or Erect(Portabl IMPRESSION: There is no specific evidence for bowel obstruction. Electronically Signed: Tristan Brady MD at 20:49 EDT , Service support ,
[2020-02-11 16:11] LABS: Bedside Glucose 67 mg/dL (70-110)
[2020-02-11] MEDS: Dextrose 5%/0.9% NaCl 1,000 ML 100 ML IV (18:08)
[2020-02-11 19:34] LABS: Partial Thromboplast Time 75.7 Seconds (24.1-36.2)
[2020-02-11 23:11] LABS: Bedside Glucose 82 mg/dL (70-110)
[2020-02-12 01:22] LABS: Absolute Lymphocyte Count 5.73 X10^3/uL (0.83-4.51); Absolute Neutrophil Count 3.7 X10^3/uL (2.0-7.7); Basophil# 0.03 X10^3/uL; Basophil% 0.3 % (0-1); Eosinophil# 0.44 X10^3/uL; Eosinophils% 4.1 % (0-5); Hematocrit 38.4 % (37-47); Hemoglobin 12.7 g/dL (12.0-15.0); Lymphocyte # 5.73 X10^3/ul (4.0); Lymphocyte % 52.9 % (19-41); Mean Corp Hgb Conc 33.1 g/dL (32-36); Mean Corpuscular Hgb 33.1 pg (27.0-32.0); Mean Platelet Vol. 10.8 fl (6.2-12.0); Monocyte# 0.93 X10^3/uL; Monocyte% 8.6 % (0-10); NRBC Flagged by Analyzer 0 % (0-5); Neutrophil # 3.68 X10^3/uL (2.7-7.7); Neutrophil % 33.9 % (47-70); POSITIVE DIFFERENTIAL YES; Platelet Count 276 K/mm3 (150-450); RBC Distribution Width CV 15.9 % (11.6-14.6); RBC Distribution Width SD 58.4 fl (35.1-43.9); Red Blood Count 3.84 M/mm3 (4.2-5.4); White Blood Count 10.8 K/mm3 (4.4-11.0)
[2020-02-12 01:34] LABS: Differential Indicated SCAN CRITERIA MET
[2020-02-12 01:41] LABS: Anion Gap 5 (5-15); BUN 12 mg/dL (7-18); BUN/Creat Ratio 13.7 RATIO (10-20); Calcium,Total 8.6 mg/dL (8.5-10.1); Chloride 116 mmol/L (98-107); Creatinine, Serum 0.87 mg/dL (0.55-1.02); EST Glomerular Filtration Rate 68 mL/min (>60); Est Glom Filt Rate - Afr Amer 83 mL/min (>60); Estimated Creatinine Clearance 67.41 ml/min; Glucose 107 mg/dL (74-106); Potassium 3.7 mmol/L (3.5-5.1); Sodium Level 144 mmol/L (136-145)
[2020-02-12 01:45] LABS: Partial Thromboplast Time 90.4 Seconds (24.1-36.2)
[2020-02-12 02:15] LABS: Differential Comment SCANNED
[2020-02-12 02:55] VITALS: BP 117/75; PULSE 91; RESP 18; TEMP 36.6; O2SAT 93
[2020-02-12] MEDS: Glycerin/Hypromellose/PEG400 15 ml Bottle 1 DRP EACH EYE ×2 (02:57→11:05)
[2020-02-12] MEDS: Dextrose 5%/0.9% NaCl 1,000 ML 100 ML IV (03:56)
[2020-02-12 06:44] VITALS: O2SAT 97
[2020-02-12] MEDS: Levothyroxine 125 MCG Tablet PO (06:49)
[2020-02-12 08:15] LABS: Partial Thromboplast Time 64.9 Seconds (24.1-36.2)
[2020-02-12 08:39] VITALS: BP 138/89; PULSE 87; RESP 20; TEMP 37.2; O2SAT 97
[2020-02-12 08:48] VITALS: PULSE 80
[2020-02-12] MEDS: 0.9% Saline Lock 10 ML Syringe IV ×2 (09:06→12:50)
[2020-02-12] MEDS: Pantoprazole Sodium 40 MG Tablet PO (09:08)
[2020-02-12] MEDS: Folic Acid 1 MG Tablet PO (09:08)
[2020-02-12] MEDS: APIXABAN 5 MG TABLET PO (09:08)
[2020-02-12] MEDS: Multivitamins,Ther W-Minerals Tablet 1 TABLET PO (09:08)
[2020-02-12] MEDS: Acyclovir 200 MG Capsule 400 MG PO (09:08)
[2020-02-12] MEDS: Magnesium Oxide 400 MG Tablet 800 MG PO (09:08)
--- NOTE | 2020-02-12 09:55 | PCM.CONS.GEN ---
Problem List (1) Small bowel obstruction Status: Acute (2) Parastomal hernia Status: Acute Qualifiers: Obstruction and gangrene presence: without obstruction or gangrene Qualified Code(s): K43.5 - Parastomal hernia without obstruction or gangrene Reason for Consult Date of Consultation: 02/12/20 History of Present Illness: The patient is a 69 year old F with a significant history of AML; DVT; parastomal hernia; colectomy with ileostomy who presented to the emergency department with a parastomal pain at the right side of the abdomen. She described her pain as severe and pulsatile. Her pain worsened with walking and it improved with holding her abdomen. Pain medicine given at the emergency department also helped relieve the pain. Associated with her symptoms is nausea and vomiting. Emergency department doctor did digital manipulation of stoma and fecal contents began to empty into ileostomy. CT of the abdomen and pelvis was remarkable for small bowel obstruction. Reportedly she has had 4 previous bowel obstructions. In previous SBOs she did not have cases she did not have surgery or NG tube. 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 In regard to her hernia reportedly surgery has not been done because patient is a very high risk. Emergent department doctor discussed the case with general surgeon, Emergency department doctor discussed the case with colorectal surgeon at [facility] who recommended that patient be observed for 24 hours and if her symptoms does not improve patient be transferred to [facility]. Per emergency department doctor colorectal surgeon recommended conservative treatment for now. While being in the hospital her abdomen softened and started to have parastomal output. Past Medical History Past Medical History (Chronic Problems): Chronic Problems (This Medical Record has been edited. 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 Allergies Gadolinium-MRI Contrast Medium [CONTRAST] Allergy (Verified 02/10/20 20:31) Hives Iodinated Contrast Media [Iodinated Contrast Media - IV Dye] Allergy (Verified 02/10/20 20:31) Hives iodine Allergy (Verified 02/10/20 20:31) Hives Home Medications: Ambulatory Orders Medication Instructions Recorded Magnesium Oxide [Mag-Ox 400] 800 mg PO BID 12/20/15 Acyclovir [Zovirax] 400 mg PO BID 07/27/16 Apixaban [Eliquis] 5 mg PO BID 07/27/16 Ergocalciferol [Vitamin D] 50,000 unit PO FR 07/27/16 Ondansetron [Zofran] 8 mg PO Q8H PRN PRN 07/27/16 Estradiol [Estrace Vaginal Cream] 1 dose VAGINAL DAILY 07/26/17 Sirolimus [Rapamune] 0.5 mg PO MOWEFR 07/26/17 Esomeprazole Magnesium 40 mg PO DAILY 05/06/19 Folic Acid 400 mcg PO DAILY 05/06/19 L.acidoph,Paracasei, B.lactis 1 ea PO DAILY 05/06/19 [Probiotic] Levothyroxine Sodium [Synthroid] 125 mcg PO MOTUWETHFRSA 05/06/19 Vitamin B Complex 1 ea PO DAILY 05/06/19 Multivit-Min/FA/Lycopen/Lutein 1 ea PO DAILY 02/10/20 [Centrum Silver Tablet] Surgical History: - - Colectomy, bone marrow transplant, ileostomy Psychiatric History: No pertinent psych hx TAVERN KEEPER History: No pertinent TAVERN KEEPER history Lives: Spouse/ Significant Other Smoking Status: Never smoker - *Family History Paternal History Items: Cancer - Is father from liver cancer at the age of 84. Reportedly when his father was young he was an alcoholic. Maternal History Items: Diabetes, Heart Disease, - - History of leukemia pain Maternal cousin but not in first-degree family relative Review of Systems Constitutional: Denies: Chills, Fever, Weight Change Gastrointestinal: Denies: Abdominal Pain, Constipation, Diarrhea, Hematemesis, Nausea, Melena, Vomiting Patient Problems: Active and Suspected Problems (This Medical Record has been edited. Action required.) Small bowel obstruction (Acute) Parastomal hernia (Acute) UTI (urinary tract infection) (Acute) - Physical Exam Vitals/I&O's: Vital Signs Temp Pulse Resp BP Pulse Ox 99.0 F 80 20 H 138/89 H 97 02/12/20 08:39 02/12/20 08:48 02/12/20 08:39 02/12/20 08:39 02/12/20 08:39 Oxygen Delivery Method Room Air Weight: 152 lb 1.903 oz Body Mass Index (BMI) 31.2 Intake and Output for Last 24 Hours 02/10/20 02/11/20 02/12/20 23:59 23:59 23:59 Intake Total 1000 / 1000 2141.00 / 2141.00 596.25 / 596.25 Output Total 2400 / 2400 375 / 375 Balance 1000 / 1000 -259.00 / -259.00 221.25 / 221.25 General: Alert, Oriented x3 Abdomen: Bowel Sounds Present, Soft, Non Tender, Non-Distended Laboratory Results 02/11/20 16:05: POC Glucose 67 L 02/11/20 19:01: APTT 75.7 H 02/11/20 22:52: POC Glucose 82 02/12/20 01:13: WBC 10.8, RBC 3.84 L, Hgb 12.7, Hct 38.4, MCV 100.0 H, MCH 33.1 H, MCHC 33.1, RDW Std Deviation 58.4 H, RDW Coeff of Saloni 15.9 H, Plt Count 276, MPV 10.8, Immature Gran % (Auto) 0.200, Neut % (Auto) 33.9 L, Lymph % (Auto) 52.9 H, Caswell % (Auto) 8.6, Eos % (Auto) 4.1, Baso % (Auto) 0.3, Absolute Neuts (auto) 3.7, Absolute Lymphs (auto) 5.73 H, Nucleated RBC % 0, Differential Comment SCANNED 02/12/20 01:13: Sodium 144, Potassium 3.7, Chloride 116 H, Carbon Dioxide 23.0, Anion Gap 5, BUN 12, Creatinine 0.87, Estim Creat Clear Calc 67.41, Est GFR (MDRD) Af Amer 83, Est GFR (MDRD) Non-Af 68, BUN/Creatinine Ratio 13.7, Glucose 107 H, Calcium 8.6 02/12/20 01:13: APTT 90.4 H* 02/12/20 07:35: APTT 64.9 H Current Medications Acyclovir (Zovirax) 400 mg PO BID [facility] Last Admin: 02/12/20 09:08 Dose: 400 mg Documented by: Apixaban (Eliquis) 5 mg PO BID [facility] Last Admin: 02/12/20 09:08 Dose: 5 mg Documented by: Dextrose (D50w Syringe) 0 gm IV X1 PRN; Protocol PRN Reason: Hypoglycemia Folic Acid (Folic Acid) 1 mg PO DAILYCM [facility] Last Admin: 02/12/20 09:08 Dose: 1 mg Documented by: Glucagon () 1 mg IM .X1 PRN PRN Reason: Hypoglycemia Hydromorphone HCl (Dilaudid Inj) 1 mg IV Q4H PRN PRN PRN Reason: Pain Score 6-10/10 Sodium Chloride () 250 mls @ 15 mls/hr IV .[id number] PRN PRN Reason: Saline Flush Last Infusion: 02/11/20 04:07 Dose: Infused Documented by: Ceftriaxone Sodium (Rocephin) 1 gm in 50 mls @ 100 mls/hr IV QHS [facility] Last Infusion: 02/11/20 23:15 Dose: Infused Documented by: Dextrose/Sodium Chloride (Dextrose 5%/0.9% Nacl) 1,000 mls @ 100 mls/hr IV .Q10H [facility] Last Admin: 02/12/20 03:56 Dose: 100 mls/hr Documented by: Lactobacillus Acidophilus (Acidophilus) 1 tablet PO DAILY [facility] Last Admin: 02/12/20 09:08 Dose: 1 tablet Documented by: Levothyroxine Sodium (Synthroid) 125 mcg PO MoTuWeThFrSa@0600 [facility] Last Admin: 02/12/20 06:49 Dose: 125 mcg Documented by: Magnesium Oxide (Mag-Ox 400) 800 mg PO BID [facility] Last Admin: 02/12/20 09:08 Dose: 800 mg Documented by: Melatonin (Melatonin) 3 mg PO QHS PRN PRN PRN Reason: INSOMNIA Multivitamins (Allbee W/C Caplet, Thera B Comp/C) 1 capsule PO DAILY [facility] Last Admin: 02/11/20 10:07 Dose: 1 capsule Documented by: Multivitamins/Minerals (Multivitamin With Minerals (Bkc)) 1 tablet PO DAILY@0800 [facility] Last Admin: 02/12/20 09:08 Dose: 1 tablet Documented by: Non-Formulary Medication (Sirolimus [Rapamune]) 0.5 mg PO X1 [facility] Ondansetron HCl (Zofran) 4 mg IV Q8H PRN PRN PRN Reason: NAUSEA/VOMITING Pantoprazole Sodium (Protonix) 40 mg PO DAILY [facility] Last Admin: 02/12/20 09:08 Dose: 40 mg Documented by: Prochlorperazine Edisylate (Compazine Iv) 5 mg IV Q4H PRN PRN PRN Reason: Breakthrough nausea/vomiting Sodium Chloride () 10 - 40 ml IV UD PRN PRN Reason: SALINE FLUSH Last Admin: 02/12/20 09:06 Dose: 10 ml Documented by: Assessment/Plan All Active Problems (This Medical Record has been edited. Action required.) Small bowel obstruction (Acute) Parastomal hernia (Acute) Xbxlt-lszhwv-vcml disease (Resolved) UTI (urinary tract infection) (Acute) Hypokalemia (Acute) Pyelonephritis, acute (Ruled-out) Acute leukemia (Resolved) Febrile neutropenia (Resolved) Believe the patient is appropriate to be discharged today. Had a long discussion with her with regards to her other comorbidities and the fact that she is a very complicated case. It is clear that when you review her CAT scans that the parastomal hernia is definitely getting larger. I think she is going to have to have another sit down meeting with the colorectal surgery department for Dr. Gaona who did her original surgery to see if any type of surgical management can be done without having to cause a complete translocation of the soma at this time. This would no doubt Nish be a very large and complicated surgery and probably does have significant morbidity with it. Office Visits / Consults: [id number] IP Consult L2
--- NOTE | 2020-02-12 11:20 | DCINST_ITS ---
- Discharge Diagnoses Current Active Problems: Current Active and Chronic Problems (This Medical Record has been edited. Action required.) Small bowel obstruction (Acute) Parastomal hernia (Acute) UTI (urinary tract infection) (Acute) AML (acute myeloid leukemia) in remission (Chronic) You will use the following diet at home:: Cardiac Your food should be the consistency of: Regular Your liquids should be the consistency of: Regular/Thin Discharge Activity: Return to Normal Activity Weight Bearing Status: Weight bearing as tolerated Call your doctor if you observe: Fever of 101 or Higher, Inability to have a bowel movement, Uncontrolled pain Instructions: Small Bowel Obstruction Allergies/Adverse Reactions: Allergies Gadolinium-MRI Contrast Medium [CONTRAST] Allergy (Verified 02/10/20 20:31) Hives Iodinated Contrast Media [Iodinated Contrast Media - IV Dye] Allergy (Verified 02/10/20 20:31) Hives iodine Allergy (Verified 02/10/20 20:31) Hives Medications to take at Discharge Magnesium Oxide [Mag-Ox 400] 800 mg PO BID 09/08/15 Acyclovir [Zovirax] 400 mg PO BID 07/27/16 Apixaban [Eliquis] 5 mg PO BID 07/27/16 Ergocalciferol [Vitamin D] 50,000 unit PO FR 07/27/16 Ondansetron [Zofran] 8 mg PO Q8H PRN PRN 07/27/16 Estradiol [Estrace Vaginal Cream] 1 dose VAGINAL DAILY 07/26/17 Sirolimus [Rapamune] 0.5 mg PO MOWEFR 07/26/17 Esomeprazole Magnesium 40 mg PO DAILY 05/06/19 Folic Acid 400 mcg PO DAILY 05/06/19 L.acidoph,Paracasei, B.lactis [Probiotic] 1 ea PO DAILY 05/06/19 Levothyroxine Sodium [Synthroid] 125 mcg PO MOTUWETHFRSA 05/06/19 Vitamin B Complex 1 ea PO DAILY 05/06/19 Multivit-Min/FA/Lycopen/Lutein [Centrum Silver Tablet] 1 ea PO DAILY 02/10/20 Primary Care Physician: Dorcas Prince MD [Primary Care Provider] - Please follow up with your Primary Care Physician in: 1-2 weeks Test Results: Test results from this visit will be discussed in further detail at your follow- up appointment, if applicable. When: DR Gaona, surgeon at [facility] as soon as possible Proposed Discharge Date: 02/12/20
--- NOTE | 2020-02-12 11:22 | PCM.DC.SUM ---
Discharge Date and Diagnosis - Problem List Patient Problems: Active and Suspected Problems (This Medical Record has been edited. Action required.) Small bowel obstruction (Acute) Parastomal hernia (Acute) UTI (urinary tract infection) (Acute) Date of Admission: 02/11/20 Date of Discharge: 02/12/20 - Primary Discharge Diagnosis Acute Problems: Active Problems (This Medical Record has been edited. Action required.) Small bowel obstruction (Acute) Parastomal hernia (Acute) UTI (urinary tract infection) (Acute) - Secondary Discharge Diagnosis Chronic Problems: Chronic Problems (This Medical Record has been edited. 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 Pain was mainly at the right side of the abdomen, where her ileostomy was located. Patient did have a history of parastomal hernia as well. She had associated nausea and vomiting and hadnt seen any output from the stoma on day of admission. She had a history of at least 4 previous bowel obstructions, and these were all conservatively managed; she had been told it was due to her parastomal hernia, for which she hadnt had surgery as she was told it was high risk. 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 CT abdomena nd pelvis done on admission showed small bowel obstruction. SHe was admitted and managed for small bowel obstruction. ED doctor did digital manipulation of her stoma and she started having output from the stoma. She was kept NPO and hydrated with IVF. Case was discussed with her general surgeon at [facility] who recommended conservative management for 24 hours, and transfer to [facility] if she deteriorated. Patient remained stable and abdomina pain resolved. FOllow up abdominal xrays showed no evidence of obstruction. Patient remained stable and was reivewed by general surgery. She was counselled that her parastomal hernia was enlarging, per imaging, and she needed to sit down and discuss surgical options with her [facility] Surgeon; she was advised that surgery would be high risk. Patient remained stable, and abdominal pain resolved. She was able to tolerate an oral diet without any pain. She was discharged home on 02/12/2020, to follow up with her PCP and colo-rectal surgeon at [facility]. Patient seen and examined prior to discharge. She had no complaints and felt much better. Review of systems is otherwise negative. Labs and vitals reviewed. Home meds reviewed and reconciled. O/E: Vital Signs Temp Pulse Resp BP Pulse Ox 99.0 F 80 20 H 138/89 H 97 02/12/20 08:39 02/12/20 08:48 02/12/20 08:39 02/12/20 08:39 02/12/20 08:39 [] General: Alert, Oriented x3, Cooperative, No apparent distress HEENT: Atraumatic, PERRLA, EOMI, Normocephalic Oral: Dry Mucosa Neck: Supple, No JVD, Negative Carotid Bruits Lungs: Clear to auscultation, Normal air movement, No rhonchi, No wheeze, No rales Cardiovascular: Regular rate, Regular Rhythm, Normal S1, Normal S2, No murmurs Abdomen: Bowel Sounds Present, Soft, - - ileostomy bag containing loose stool; para stomal hernia which is soft, non tender, with good bowel sounds Extremities: No clubbing, No cyanosis, No edema, Capillary Refill Less than 3 Seconds Skin: No rashes, No breakdown Musculoskeletal: No Tenderness to Palpation of Joints or Extremities Lymphatic: No Cervical, Supraclavicular, or Inguinal Adenopathy Neurological: Cranial nerves II-XII grossly intact, Neuro grossly intact, Motor Exam 5/5 strength throughout Psych/Mental Status: Normal Affect, Appropriate, Alert and oriented to time, place, person, mood and affect Plan is for dc home today as above. Patient Problems: Active and Suspected Problems (This Medical Record has been edited. Action required.) Small bowel obstruction (Acute) Parastomal hernia (Acute) UTI (urinary tract infection) (Acute) - Physical Exam Vitals/I&O's: Vital Signs Temp Pulse Resp BP Pulse Ox 99.0 F 80 20 H 138/89 H 97 02/12/20 08:39 02/12/20 08:48 02/12/20 08:39 02/12/20 08:39 02/12/20 08:39 Oxygen Delivery Method Room Air Weight: 152 lb 1.903 oz Body Mass Index (BMI) 31.2 Intake and Output for Last 24 Hours 02/10/20 02/11/20 02/12/20 23:59 23:59 23:59 Intake Total 1000 / 1000 2141.00 / 2141.00 596.25 / 596.25 Output Total 2400 / 2400 1100 / 1100 Balance 1000 / 1000 -259.00 / -259.00 -503.75 / -503.75 Laboratory Results 02/11/20 16:05: POC Glucose 67 L 02/11/20 19:01: APTT 75.7 H 02/11/20 22:52: POC Glucose 82 02/12/20 01:13: WBC 10.8, RBC 3.84 L, Hgb 12.7, Hct 38.4, MCV 100.0 H, MCH 33.1 H, MCHC 33.1, RDW Std Deviation 58.4 H, RDW Coeff of Saloni 15.9 H, Plt Count 276, MPV 10.8, Immature Gran % (Auto) 0.200, Neut % (Auto) 33.9 L, Lymph % (Auto) 52.9 H, [place] % (Auto) 8.6, Eos % (Auto) 4.1, Baso % (Auto) 0.3, Absolute Neuts (auto) 3.7, Absolute Lymphs (auto) 5.73 H, Nucleated RBC % 0, Differential Comment SCANNED 02/12/20 01:13: Sodium 144, Potassium 3.7, Chloride 116 H, Carbon Dioxide 23.0, Anion Gap 5, BUN 12, Creatinine 0.87, Estim Creat Clear Calc 67.41, Est GFR (MDRD) Af Amer 83, Est GFR (MDRD) Non-Af 68, BUN/Creatinine Ratio 13.7, Glucose 107 H, Calcium 8.6 02/12/20 01:13: APTT 90.4 H* 02/12/20 07:35: APTT 64.9 H Current Medications Acyclovir (Zovirax) 400 mg PO BID [facility] Last Admin: 02/12/20 09:08 Dose: 400 mg Documented by: Apixaban (Eliquis) 5 mg PO BID [facility] Last Admin: 02/12/20 09:08 Dose: 5 mg Documented by: Dextrose (D50w Syringe) 0 gm IV X1 PRN; Protocol PRN Reason: Hypoglycemia Folic Acid (Folic Acid) 1 mg PO DAILYCM [facility] Last Admin: 02/12/20 09:08 Dose: 1 mg Documented by: Glucagon () 1 mg IM .X1 PRN PRN Reason: Hypoglycemia Hydromorphone HCl (Dilaudid Inj) 1 mg IV Q4H PRN PRN PRN Reason: Pain Score 6-10/10 Sodium Chloride () 250 mls @ 15 mls/hr IV .[id number] PRN PRN Reason: Saline Flush Last Infusion: 02/11/20 04:07 Dose: Infused Documented by: Ceftriaxone Sodium (Rocephin) 1 gm in 50 mls @ 100 mls/hr IV QHS [facility] Last Infusion: 02/11/20 23:15 Dose: Infused Documented by: Dextrose/Sodium Chloride (Dextrose 5%/0.9% Nacl) 1,000 mls @ 100 mls/hr IV .Q10H [facility] Last Admin: 02/12/20 03:56 Dose: 100 mls/hr Documented by: Lactobacillus Acidophilus (Acidophilus) 1 tablet PO DAILY [facility] Last Admin: 02/12/20 09:08 Dose: 1 tablet Documented by: Levothyroxine Sodium (Synthroid) 125 mcg PO MoTuWeThFrSa@0600 [facility] Last Admin: 02/12/20 06:49 Dose: 125 mcg Documented by: Magnesium Oxide (Mag-Ox 400) 800 mg PO BID [facility] Last Admin: 02/12/20 09:08 Dose: 800 mg Documented by: Melatonin (Melatonin) 3 mg PO QHS PRN PRN PRN Reason: INSOMNIA Multivitamins (Allbee W/C Caplet, Thera B Comp/C) 1 capsule PO DAILY [facility] Last Admin: 02/11/20 10:07 Dose: 1 capsule Documented by: Multivitamins/Minerals (Multivitamin With Minerals (Bkc)) 1 tablet PO DAILY@0800 [facility] Last Admin: 02/12/20 09:08 Dose: 1 tablet Documented by: Non-Formulary Medication (Sirolimus [Rapamune]) 0.5 mg PO X1 [facility] Ondansetron HCl (Zofran) 4 mg IV Q8H PRN PRN PRN Reason: NAUSEA/VOMITING Pantoprazole Sodium (Protonix) 40 mg PO DAILY [facility] Last Admin: 02/12/20 09:08 Dose: 40 mg Documented by: Prochlorperazine Edisylate (Compazine Iv) 5 mg IV Q4H PRN PRN PRN Reason: Breakthrough nausea/vomiting Sodium Chloride () 10 - 40 ml IV UD PRN PRN Reason: SALINE FLUSH Last Admin: 02/12/20 09:06 Dose: 10 ml Documented by: Discharge Diet: No Restrictions Discharge Activity: Return to Normal Activity Weight Bearing Status: Weight bearing as tolerated Call your doctor if you observe: Fever of 101 or Higher, Inability to have a bowel movement, Uncontrolled pain Home Medications: Medications to take at Discharge Magnesium Oxide [Mag-Ox 400] 800 mg PO BID 09/08/15 Acyclovir [Zovirax] 400 mg PO BID 07/27/16 Apixaban [Eliquis] 5 mg PO BID 07/27/16 Ergocalciferol [Vitamin D] 50,000 unit PO FR 07/27/16 Ondansetron [Zofran] 8 mg PO Q8H PRN PRN 07/27/16 Estradiol [Estrace Vaginal Cream] 1 dose VAGINAL DAILY 07/26/17 Sirolimus [Rapamune] 0.5 mg PO MOWEFR 07/26/17 Esomeprazole Magnesium 40 mg PO DAILY 05/06/19 Folic Acid 400 mcg PO DAILY 05/06/19 L.acidoph,Paracasei, B.lactis [Probiotic] 1 ea PO DAILY 05/06/19 Levothyroxine Sodium [Synthroid] 125 mcg PO MOTUWETHFRSA 05/06/19 Vitamin B Complex 1 ea PO DAILY 05/06/19 Multivit-Min/FA/Lycopen/Lutein [Centrum Silver Tablet] 1 ea PO DAILY 02/10/20 Primary Care Physician: Dorcas Prince MD [Primary Care Provider] - Please follow up with your Primary Care Physician in: 1-2 weeks When: DR Gaona, surgeon at [facility] as soon as possible Patient Instructions: Small Bowel Obstruction Disposition: Home Minutes spent on discharge:: 45 Patient Condition:: Stable Medical Necessity - Tobacco Use Smoking Status: Never smoker Meaningful Use Info Meaningful Use Diagnoses (Choose all that apply): None applicable Inpatient E&M: 29763 Disch Hosp
[2020-02-12] MEDS: Vitamin B Comp W-C Capsule 1 CAP PO (11:53)
[2020-02-13 11:49] LABS: Pathologist Review Reviewed
== END 2020-02-12 13:05 | disposition home or self-care (01) | DRG 389 ==
LOC: ED 02-11 00:51 → MS3 02-11 03:37
PROVIDERS: Admitting Provider Hospitalist; Emergency Provider Emergency Medicine; PCP Internal Medicine; Visit Provider Student in an Organized Health Care Education/Training Program
DX: K56.609 Unspecified intestinal obstruction, unspecified as to partial versus complete obstruction (principal); C92.01 Acute myeloblastic leukemia, in remission; Z94.81 Bone marrow transplant status; D89.813 Graft-versus-host disease, unspecified; N39.0 Urinary tract infection, site not specified; E87.6 Hypokalemia; I48.0 Paroxysmal atrial fibrillation; K43.5 Parastomal hernia without obstruction or gangrene; E03.9 Hypothyroidism, unspecified; D69.6 Thrombocytopenia, unspecified; Z93.2 Ileostomy status; Z93.3 Colostomy status; Z90.49 Acquired absence of other specified parts of digestive tract; Z79.01 Long term (current) use of anticoagulants; Z86.718 Personal history of other venous thrombosis and embolism; E83.42 Hypomagnesemia; K21.9 Gastro-esophageal reflux disease without esophagitis; Z80.0 Family history of malignant neoplasm of digestive organs; Z83.3 Family history of diabetes mellitus
CPT/HCPCS: 36415; 74019; 74176; 80048; 80053; 81001; 82962; 83690; 85025; 85610; 85730; 99283; J7030; J7050; A4216; J2405

== ENCOUNTER → 2020-03-15 10:57 | Outpatient (CLI) | payer MEDICARE, SELFPAY ==
[2020-02-11 01:46] VITALS: BMI 31.2
--- NOTE | 2020-03-15 11:00 | ECHOD_ITS ---
Version 2 Reason For Study: AFIB Procedure This was a 2D Doppler, Color Flow transthoracic echocardiogram. The study was technically difficult. Exam performed in department. Left Ventricle Normal size and thickness. The estimated ejection fraction is 50 %. Septal motion consistent with IVCD. Stage 1 diastolic dysfunction. No regional wall motion abnormalities noted. Right Ventricle Normal size and thickness. Normal systolic function. Atria Normal left atrium. Normal right atrium. Probable patent foramen ovale. Doppler evidence of L to R crossover. Mitral Valve The mitral valve is structurally normal. No prolapse or stenosis seen. Tricuspid Valve Normal tricuspid valve. Unable to estimate RV systolic pressure due to insufficient tricuspid regurgitant envelope. Aortic Valve Trisinus/trileaflet aortic valve. Mild diffuse aortic valve thickening. There is no aortic stenosis. Pulmonic Valve Normal pulmonic valve. Great Vessels Normal aortic root. Normal arch. Normal inferior vena cava. Inferior vena cava collapse with sniff. Pericardium/Pleural No pericardial effusion. MMode/2D Measurements & Calculations LVIDd: 4.2 cm IVSd: 0.96 cm Ao root diam: 3.2 cm LVIDs: 2.8 cm LVPWd: 0.87 cm RVDd: 3.0 cm FS: 34.0 % LAV(MOD-bp): 29.3 ml EDV(MOD-sp4): 64.0 ml EDV(MOD-sp2): 41.4 ml LAV(MOD-bp) Indexed: 18.3 ml/m2 ESV(MOD-sp4): 31.5 ml EF(MOD-sp2): 52.9 % LAV(MOD-sp2): 24.8 ml EF(MOD-sp4): 50.8 % LAV(MOD-sp4): 33.5 ml SV(MOD-sp4): 32.5 ml SV(MOD-sp2): 21.9 ml LA A4 area: 14.3 cm2 LA dimension(2D): 2.7 cm RA A4 area: 11.1 cm2 Doppler Measurements & Calculations MV E max augustus: 54.0 cm/sec Lat Peak E' Augustus: 6.6 cm/sec Med Peak E' Augustus: 3.7 cm/sec MV A max augustus: 80.1 cm/sec E/E' lat: 8.2 E/E' med: 14.7 MV E/A: 0.67 Ao V2 max: 119.6 cm/sec LV V1 max: 100.7 cm/sec PA V2 max: 100.8 cm/sec Ao max P.7 mmHg LV V1 max P.1 mmHg Interpretation Summary The estimated ejection fraction is 50 %. Septal motion consistent with IVCD. Stage 1 diastolic dysfunction. Probable patent foramen ovale. Doppler evidence of L to R crossover. Unable to estimate RV systolic pressure due to insufficient tricuspid regurgitant envelope. There is no aortic stenosis. Compared to echo report dated 12/10/2008, LV function has decreased from 65% to 50%. Unable to quantitate RVSP. Previous known left to right crossover at atrial level. Ordering Physician: Cory Iqbal Referring Physician: Cory Iqbal Performed By: Sandie Martinez RDCS
== END ==
PROVIDERS: PCP Internal Medicine; Referring Provider Internal Medicine Cardiovascular Disease; Visit Provider Internal Medicine Cardiovascular Disease
DX: E83.111 Hemochromatosis due to repeated red blood cell transfusions (principal); I48.91 Unspecified atrial fibrillation; I48.92 Unspecified atrial flutter; R93.89 Abnormal findings on diagnostic imaging of other specified body structures
CPT/HCPCS: 93306

== ENCOUNTER → 2020-03-19 09:24 | Outpatient (CLI) | payer MEDICARE, SELFPAY ==
[2020-02-11 01:46] VITALS: BMI 31.2
--- NOTE | 2020-03-19 09:25 | STE_ITS ---
Reason For Study: AFIB/FLUTTER Stress Results Protocol: MODIFIED HUGO Maximum Predicted HR: 151 bpm Target HR: 128 bpm % Maximum Predicted HR: 97 % DurationHeart Rate Stage (mm:ss) (bpm) BP Comment BASELINE 74 14/64 STAGE 0 3:00 123 110/62 STAGE 1/2 3:00 146 122/70SLIGHT SOB STAGE 1 1:30 146 / SOB,FATIGUE RECOVERY 92 102/60 Stress Duration: 7:30 mm:ss Maximum Stress HR: 146 bpm Baseline Echocardiogram Findings The estimated ejection fraction is 65 %. Stress Echo Wall motion Data Resting WM Intermediate WM Stress WM Resting Wall Motion Wall Motion Stress No regional wall motion No regional wall motion abnormalities noted. abnormalities noted. EKG Data The baseline ECG displays normal sinus rhythm. The maximum heart rate attained was 150 beats per minute. The patient exercised into stage 1 of the Hugo protocol. During stress, there were no ST or T wave changes noted to suggest ischemia. No clinical angina was noted. No arrhythmias noted. This was 100% of maximum predicted heart rate. Interpretation Summary The estimated ejection fraction is 65 %. Normal, adequate, modified Hugo treadmill echocardiogram. Negative for ischemia by EKG and echocardiographic criteria. No anginal symptoms noted. No arrhythmias noted. Test terminated due to the attainment of target heart rate, dyspnea and fatigue. Final LVEF is 75%. Patient taught procedure well. No complications. Ordering Physician: Cory Iqbal Referring Physician: Cory Iqbal Performed By: Aure Riley, JOHN, RVT
== END ==
PROVIDERS: PCP Internal Medicine; Referring Provider Internal Medicine Cardiovascular Disease; Visit Provider Internal Medicine Cardiovascular Disease
DX: I48.91 Unspecified atrial fibrillation (principal); R94.31 Abnormal electrocardiogram [ECG] [EKG]; I10 Essential (primary) hypertension
CPT/HCPCS: 93017; 93350

== ENCOUNTER → 2020-03-26 17:56 | Outpatient (CLI) | payer MEDICARE, SELFPAY ==
[2020-02-11 01:46] VITALS: BMI 31.2
== END ==
PROVIDERS: PCP Internal Medicine; Referring Provider Podiatrist; Visit Provider Podiatrist
DX: L03.032 Cellulitis of left toe (principal)
CPT/HCPCS: 87070; 87075; 87077; 87186; 87205

== ENCOUNTER 2022-01-07 23:08 | Inpatient (IN) | payer MEDICARE, SELFPAY ==
[2022-01-07 23:08] VITALS: BP 145/123; PULSE 131; RESP 26; TEMP 35.9; O2SAT 93; BMI 21.2
[2022-01-07 23:16] VITALS: BP 110/54
--- NOTE | 2022-01-07 23:20 | EKG12_ITS ---
Test Reason : DYSRHYTHMIA Blood Pressure : / mmHG Vent. Rate : 120 BPM Atrial Rate : 120 BPM P-R Int : 140 ms QRS Dur : 128 ms QT Int : 346 ms P-R-T Axes : 050 206 047 degrees QTc Int : 489 ms Sinus tachycardia Right bundle branch block Inferior infarct , age undetermined Abnormal ECG Confirmed by TG CABA, GAUTAM ([id number]), film editor supervisor LINDA CONTRERAS ([id number]) on 01/08/2022 12:51:51 P M Referred By: RYAN Confirmed By:BASILIA MAS MD
--- NOTE | 2022-01-07 23:21 | EDS_ITS ---
HPI History of Present Illness Chief Complaint: Nausea/Vomiting Informant: patient Onset/Context/Timing Onset: Today Current Severity: Moderate Maximum Severity: Moderate Narrative Narrative: Patient presents with generalized weakness with nausea and vomiting. Symptoms started at 8 AM this morning. She states has not been able to keep anything down. She has not urinated since early this morning. She has had liquid stool output in her ileostomy. She denies fever or chills. She states she took a COVID test at home that was negative. [facility] Medical History Abnormal EKG AML (acute myeloid leukemia) in remission Atrial fibrillation with RVR Dysmetabolic syndrome Elevated liver enzymes Essential hypertension Gastroenteritis Kipjk-bexkyy-kvda disease History of DVT (deep vein thrombosis) (~10/2015) History of syncope Hypokalemia Hypomagnesemia Hypothyroidism Ileostomy in place Iron overload due to repeated red blood cell transfusions Parastomal hernia Patient in clinical research study (08/20/15) Pre-op evaluation Pyelonephritis, acute Right bundle branch block Small bowel obstruction Thrombocytopenia UTI (urinary tract infection) Home Medications magnesium oxide 800 mg PO BID 09/08/15 [History Last Taken 02/10/20] acyclovir 400 mg PO BID 07/27/16 [History Last Taken 02/10/20] apixaban 5 mg PO BID 07/27/16 [History Last Taken 02/10/20] ergocalciferol (vitamin D2) 50,000 unit PO FR 07/27/16 [History Last Taken 02/09/20 08:00] ondansetron HCl 8 mg PO Q8H PRN PRN 07/27/16 [History Last Taken Unknown] estradiol 1 dose VAGINAL DAILY 07/26/17 [History Last Taken 02/10/20] sirolimus 0.5 mg PO MOWEFR 07/26/17 [History Last Taken 02/09/20] L.acidoph, paracasei,B. lactis 1 ea PO DAILY 05/06/19 [History Last Taken 02/10/20] esomeprazole magnesium 40 mg PO DAILY 05/06/19 [History Last Taken 02/10/20] uragupql-zoi-VV-lycopen-lutein 1 ea PO DAILY 02/10/20 [History Last Taken 02/10/20] cholestyramine (with sugar) 4 gram oral powder 4 g PO TID g 02/19/20 [History Last Taken Unknown] meclizine 25 mg tablet 25 mg PO TID 02/19/20 [History Last Taken Unknown] zolpidem 5 mg tablet 5 mg PO QHS PRN 02/19/20 [History Last Taken Unknown] levothyroxine 100 mcg tablet 100 mcg PO DAILY #1 tab 04/11/20 [Rx Last Taken Unknown] Allergy/AdvReac Type Severity Reaction Status Date / Time Gadolinium-MRI Contrast Allergy Hives Verified 01/07/22 23:14 Medium [CONTRAST] Iodinated Contrast Media Allergy Hives Verified 01/07/22 23:14 [Iodinated Contrast Media - IV Dye] iodine Allergy Hives Verified 01/07/22 23:14 teriparatide [From Forteo] AdvReac Unknown Unknown Verified 01/07/22 23:14 Surgical History Bone marrow transplant status History of total colectomy Social History Smoking Status: Never smoker ROS ROS ED Constitutional Constitutional ED: Denies chills or fever(s) Eyes Eyes: Denies change in vision ENT ENT ED: Denies sore throat Cardiovascular Cardiovascular: Denies chest pain Respiratory/Chest Respiratory/Chest: Denies cough or dyspnea Gastrointestinal Gastrointestinal: Reports abdominal pain, diarrhea, nausea and vomiting Genitourinary Genitourinary ED: Denies dysuria Musculoskeletal Musculoskeletal: Denies back pain Integumentary Denies rash Neurologic Neurologic: Reports weakness; Denies headache(s) Allergic/Immunologic Allergic/Immunologic ED: Denies urticaria EXAM Physical Exam Const Vital Signs: 01/07/22 23:08 01/07/22 23:16 01/08/22 00:46 Temperature 96.6 F L Temperature Source Temporal Pulse Rate 131 H 103 H Respiratory Rate 26 H 18 Blood Pressure 145/123 H 110/54 L 137/86 H Blood Pressure Mean 130 72 103 Pulse Ox 93 97 Oxygen Delivery Method Room Air Room Air Positive well nourished and well developed General Appearance ED: well developed HEENT Reports dry mucous membranes Mouth ED: Yes dry mucous membranes Mouth: dry mucous membranes Eyes PERRL and EOMs intact bilaterally Neck supple Chest Wall inspection of chest normal and palpation of chest normal Resp normal respiratory effort and clear to auscultation bilaterally Cardio Rate: tachycardic GI non-tender Auscultation: hypoactive bowel sounds Palpation: soft Extremity normal to inspection Neuro oriented x3 Sensorium / Orientation: alert Psych Mood & Affect: anxious Skin no rashes or lesions noted MDM MDM MDM Narrative Medical decision making narrative: Patient given IV fluids and Zofran. Lab work, urinalysis, EKG ordered. Lab Data Attestation: I reviewed the patient's lab results. Labs: Laboratory Results - last 24 hr 01/07/22 01/07/22 23:25 23:25 WBC 12.1 H RBC 5.30 Hgb 18.8 H* Hct 55.2 H MCV 104.2 H MCH 35.5 H MCHC 34.1 RDW Std Deviation 56.3 H RDW Coeff of Saloni 14.4 Plt Count 277 MPV 10.2 Immature Gran % (Auto) 1.700 H Neut % (Auto) 75.5 H Lymph % (Auto) 11.5 L [place] % (Auto) 10.9 H Eos % (Auto) 0.0 Baso % (Auto) 0.4 Absolute Neuts (auto) 9.2 H Absolute Lymphs (auto) 1.40 Nucleated RBC % 0 Sodium 135 L Potassium 4.3 Chloride 104 Carbon Dioxide 17.0 L Anion Gap 14 BUN 35 H Creatinine 2.17 H Estim Creat Clear Calc 25.59 Est GFR (MDRD) Af Amer 29 L Est GFR (MDRD) Non-Af 24 L BUN/Creatinine Ratio 16.1 Glucose 157 H Calcium 10.4 H Total Bilirubin 0.60 Direct Bilirubin 0.29 AST 42 H ALT 62 H Alkaline Phosphatase 146 H Total Protein 10.1 H Albumin 4.8 Globulin 5.3 H EKG Initial EKG: Interpretation: Sinus Tachycardia (Sinus tach at 120 with a right bundle branch block. Morphology appears similar to prior EKG.) Treatment and Re-Evaluation Narrative: On repeat evaluation nausea seems to be improved. She is trying ice chips at this time. Lab work does reveal significant dehydration with hemoglobin concentrated at 18.8 and creatinine up to 2.17. Her baseline creatinine is around 0.8. Patient got 1 L IV fluid bolus and fluids are now running at 150 an hour. Heart rate is down to 103. With the degree of dehydration I do feel patient will require hydration overnight. She is still unable to provide a urine sample at this time. I will speak with hospitalist regarding further observation and treatment. Discharge Plan Triage Chief Complaint: Nausea/Vomiting ED Provider: Rosalia Thomason Dx/Rx/DC Orders Clinical Impression: Gastroenteritis, Acute kidney injury, Dehydration Prescriptions: No Action meclizine 25 mg tablet 25 mg PO TID RF: 0 zolpidem 5 mg tablet 5 mg PO QHS PRN (Reason: Insomnia) RF: 0 cholestyramine (with sugar) 4 gram powder 4 g PO TID RF: 0 magnesium oxide 400 MG tablet 800 mg PO BID RF: 0 ondansetron HCl 8 MG tablet 8 mg PO Q8H PRN PRN (Reason: Nausea) RF: 0 acyclovir 400 MG tablet 400 mg PO BID RF: 0 ergocalciferol (vitamin D2) 50,000 UNIT capsule 50,000 unit PO FR RF: 0 apixaban 5 MG tablet 5 mg PO BID RF: 0 estradiol 42.5 GM cream 1 dose vaginal DAILY RF: 0 sirolimus 0.5 MG tablet 0.5 mg PO MOWEFR RF: 0 esomeprazole magnesium 40 MG capsule,delayed release(DR/EC) 40 mg PO DAILY RF: 0 L.acidoph, paracasei,B. lactis 1 EACH capsule 1 ea PO DAILY RF: 0 mktmzupo-mnp-LQ-lycopen-lutein 1 EACH tablet 1 ea PO DAILY RF: 0 levothyroxine 100 mcg tablet 100 mcg PO DAILY Qty: 1 RF: 0 Primary Care Provider: Dorcas Prince Referrals: Dorcas Prince MD [Primary Care Provider] - Disposition Disposition: Acute Care Hospital [facility]
[2022-01-07] MEDS: 0.9% Normal Saline 1,000 ML 1000 ML IV (23:30)
[2022-01-07] MEDS: Ondansetron 4 MG/2 ML Vial IV (23:32)
[2022-01-07] MEDS: 0.9% Normal Saline 1,000 ML 150 ML IV (23:39)
--- NOTE | 2022-01-07 23:39 | ED.RN ---
Addendum entered by Aleyda Colbert RN 01/08/22 01:14: erronous entry, wrong patient Original Note: Patient decided he would let us put him on the bed peterson and then got upset and asked to be taken off the bed pain again. Bed peterson removed immediately.
[2022-01-07 23:42] LABS: Absolute Neutrophil Count 9.2 X10^3/uL (2.0-7.7); Basophil# 0.05 X10^3/uL; Basophil% 0.4 % (0-1); Hematocrit 55.2 % (37-47); Lymphocyte % 11.5 % (19-41); Mean Corp Hgb Conc 34.1 g/dL (32-36); Mean Corpuscular Hgb 35.5 pg (27.0-32.0); Mean Corpuscular Volume 104.2 fL (81-99); Mean Platelet Vol. 10.2 fl (6.2-12.0); Monocyte# 1.32 X10^3/uL; Monocyte% 10.9 % (0-10); NRBC Flagged by Analyzer 0 % (0-5); Neutrophil # 9.15 X10^3/uL (2.7-7.7); Neutrophil % 75.5 % (47-70); Platelet Count 277 K/mm3 (150-450); RBC Distribution Width CV 14.4 % (11.6-14.6); RBC Distribution Width SD 56.3 fl (35.1-43.9); White Blood Count 12.1 K/mm3 (4.4-11.0)
[2022-01-07 23:57] LABS: Hemoglobin 18.8 g/dL (12.0-15.0)
[2022-01-08] VITALS (8 sets, daily range): BP systolic 98–137; BP diastolic 46–86; PULSE 83–118; RESP 15–18; TEMP 36.6–37.6; O2SAT 92–97; BMI 30.4
[2022-01-08 00:57] LABS: AST(SGOT) 42 U/L (15-37); Alanine Aminotransfer ALT/SGPT 62 U/L (13-56); Albumin, Serum 4.8 g/dL (3.2-5.0); Alkaline Phosphatase 146 U/L (45-117); Anion Gap 14 (5-15); BUN 35 mg/dL (7-18); BUN/Creat Ratio 16.1 RATIO (10-20); Bilirubin, Direct 0.29 mg/dL (0.00-0.30); Calcium,Total 10.4 mg/dL (8.5-10.1); Chloride 104 mmol/L (98-107); Creatinine, Serum 2.17 mg/dL (0.55-1.02); EST Glomerular Filtration Rate 24 mL/min (>60); Est Glom Filt Rate - Afr Amer 29 mL/min (>60); Estimated Creatinine Clearance 25.59 ml/min; Globulin 5.3 g/dL (2.2-4.2); Glucose 157 mg/dL (74-106); Potassium 4.3 mmol/L (3.5-5.1); Protein, Total 10.1 g/dL (6.4-8.2); Sodium Level 135 mmol/L (136-145)
--- NOTE | 2022-01-08 01:36 | HP.PCM_ITS ---
Documented by User: PALOMA Cao 01/08/22 01:48 HPI - General General Date of Admission: 01/08/22 Date of Service: 01/08/22 Chief Complaint: Gastroenteritis HPI Narrative CONG SMITH, is a 71 F who presents with nausea, vomiting and an excessive amounts of loose stool out of her ileostomy. Patient states this has been ongoing all day. Patient has not urinated since 8 AM this morning. Patient received 1 dose of Zofran in the ER however she continues to have nausea and dry heaving. Patient reports a medical history that includes hypothyroidism, GERD, AML with bone marrow transplant, hypertension, atrial fibrillation. [facility] Medical History Abnormal EKG AML (acute myeloid leukemia) in remission Atrial fibrillation with RVR Dysmetabolic syndrome Elevated liver enzymes Essential hypertension Gastroenteritis Crxvb-bsrhxr-eqrr disease History of DVT (deep vein thrombosis) (~10/2015) History of syncope Hypokalemia Hypomagnesemia Hypothyroidism Ileostomy in place Iron overload due to repeated red blood cell transfusions Parastomal hernia Patient in clinical research study (08/20/15) Pre-op evaluation Pyelonephritis, acute Right bundle branch block Small bowel obstruction Thrombocytopenia UTI (urinary tract infection) Home Medications magnesium oxide 800 mg PO BID 09/08/15 [History Last Taken 02/10/20] acyclovir 400 mg PO BID 07/27/16 [History Last Taken 02/10/20] apixaban 5 mg PO BID 07/27/16 [History Last Taken 02/10/20] ergocalciferol (vitamin D2) 50,000 unit PO FR 07/27/16 [History Last Taken 02/09/20 08:00] ondansetron HCl 8 mg PO Q8H PRN PRN 07/27/16 [History Last Taken Unknown] estradiol 1 dose VAGINAL DAILY 07/26/17 [History Last Taken 02/10/20] sirolimus 0.5 mg PO MOWEFR 07/26/17 [History Last Taken 02/09/20] L.acidoph, paracasei,B. lactis 1 ea PO DAILY 05/06/19 [History Last Taken 02/10/20] esomeprazole magnesium 40 mg PO DAILY 05/06/19 [History Last Taken 02/10/20] rxlugsda-qzv-GG-lycopen-lutein 1 ea PO DAILY 02/10/20 [History Last Taken 02/10/20] cholestyramine (with sugar) 4 gram oral powder 4 g PO TID g 02/19/20 [History Last Taken Unknown] meclizine 25 mg tablet 25 mg PO TID 02/19/20 [History Last Taken Unknown] zolpidem 5 mg tablet 5 mg PO QHS PRN 02/19/20 [History Last Taken Unknown] levothyroxine 100 mcg tablet 100 mcg PO DAILY #1 tab 04/11/20 [Rx Last Taken Unknown] Allergy/AdvReac Type Severity Reaction Status Date / Time Gadolinium-MRI Contrast Allergy Hives Verified 01/07/22 23:14 Medium [CONTRAST] Iodinated Contrast Media Allergy Hives Verified 01/07/22 23:14 [Iodinated Contrast Media - IV Dye] iodine Allergy Hives Verified 01/07/22 23:14 teriparatide [From Forteo] AdvReac Unknown Unknown Verified 01/07/22 23:14 Surgical History Bone marrow transplant status History of total colectomy Social History Smoking Status: Never smoker ROS Constitutional Constitutional: Denies anorexia, chills, fatigue, malaise or weakness Cardiovascular Cardiovascular: Denies chest pain, edema, palpitations or syncope Respiratory/Chest Respiratory/Chest: Denies cough, shortness of breath at rest, shortness of breath with exertion or wheezing Gastrointestinal Gastrointestinal: Reports diarrhea, nausea and vomiting; Denies abdominal pain or constipation Genitourinary Genitourinary: Denies dysuria Musculoskeletal Musculoskeletal: Denies back pain, extremity pain, joint pain, joint stiffness or joint swelling Integumentary Integumentary: Denies dry skin Neurologic Neurologic: Denies abnormal gait, abnormal speech, confusion or dizziness Psychiatric Psychiatric: Denies anxiety or depression Endocrine Endocrinology: Denies change in body appearance Hematologic/Lymphatic Hematologic/Lymphatic: Denies anemia Vital Signs Vital Signs Vital Signs: 01/07/22 23:08 01/07/22 23:16 01/08/22 00:46 Temperature 96.6 F L Temperature Source Temporal Pulse Rate 131 H 103 H Respiratory Rate 26 H 18 Blood Pressure 145/123 H 110/54 L 137/86 H Blood Pressure Mean 130 72 103 Pulse Ox 93 97 Oxygen Delivery Method Room Air Room Air Weight Weight: 148 lb 2.41 oz Body Mass Index (BMI) 21.2 Physical Exam Const alert and oriented x3 General Appearance: cooperative HEENT normocephalic and head/scalp atraumatic Eyes conjunctivae normal and no scleral icterus Neck no lymphadenopathy and supple General: trachea midline Resp normal respiratory effort, normal air movement and clear to auscultation bilaterally Cardio regular rate, regular rhythm, S1 normal heart sound, S2 normal heart sound and peripheral pulses 2+ throughout GI soft to palpation Auscultation: hyperactive bowel sounds Palpation: tender other (Generalized) Extremity normal capillary refill and no clubbing, cyanosis or edema General Extremity: no tenderness to palpation of joints or extremities Skin General Skin Exam: turgor normal Lesions: no lesions Rashes: no rashes Neuro no focal motor deficits and no sensory deficits noted Motor Exam: Negative for general weakness Psych thought process normal, cooperative and affect normal Appearance: appropriate Results Lab / Micro Data Result Diagrams: 01/07/22 23:25 01/07/22 23:25 Labs: Laboratory Results - last 24 hr 01/07/22 23:25: WBC 12.1 H, RBC 5.30, Hgb 18.8 H*, Hct 55.2 H, MCV 104.2 H, MCH 35.5 H, MCHC 34.1, RDW Std Deviation 56.3 H, RDW Coeff of Saloni 14.4, Plt Count 277, MPV 10.2, Immature Gran % (Auto) 1.700 H, Neut % (Auto) 75.5 H, Lymph % (Auto) 11.5 L, [place] % (Auto) 10.9 H, Eos % (Auto) 0.0, Baso % (Auto) 0.4, Absolute Neuts (auto) 9.2 H, Absolute Lymphs (auto) 1.40, Nucleated RBC % 0 01/07/22 23:25: Sodium 135 L, Potassium 4.3, Chloride 104, Carbon Dioxide 17.0 L , Anion Gap 14, BUN 35 H, Creatinine 2.17 H, Estim Creat Clear Calc 25.59, Est GFR (MDRD) Af Amer 29 L, Est GFR (MDRD) Non-Af 24 L, BUN/Creatinine Ratio 16.1, Glucose 157 H, Calcium 10.4 H, Total Bilirubin 0.60, Direct Bilirubin 0.29, AST 42 H, ALT 62 H, Alkaline Phosphatase 146 H, Total Protein 10.1 H, Albumin 4.8, G lobulin 5.3 H Assessment & Plan Assessment/Plan (1) Gastroenteritis: (2) Acute kidney injury: (3) Dehydration: PLAN: 1. Gastroenteritis -Admit to [facility] -CBC and CMP ordered for a.m. -Patient received 1 L bolus in the ER, continue normal saline 100 mL/h -IV Zofran ordered twice daily -Stool lactoferrin, C. difficile, enteric pathogen panel ordered 2. Acute kidney injury -Creatinine currently greater than 2, baseline 0.8 -Normal saline 100 mL/h -Repeat CMP in a.m. 3. Atrial fibrillation -Currently rate controlled, patient not currently on medication for heart rate -Continue Eliquis 4. History of AML with bone marrow transplant -Continue sirolimus -Continue acyclovir for for shingles prevention 5. Hypothyroidism -Continue levothyroxine 6. Presence of ileostomy DVT prophylaxis-not indicated, chronically anticoagulated This patient was seen by PALOMA Cao under the supervision of Dr. Turner 30 minutes spent in clinical coordination of patient's plan of care. Documented by User: Dr. Adarsh Turner MD 01/08/22 02:14 HPI - General General Date of Admission: 01/08/22 [facility] Medical History Abnormal EKG AML (acute myeloid leukemia) in remission Atrial fibrillation with RVR Dysmetabolic syndrome Elevated liver enzymes Essential hypertension Gastroenteritis Wegxx-fgivmg-hjcs disease History of DVT (deep vein thrombosis) (~10/2015) History of syncope Hypokalemia Hypomagnesemia Hypothyroidism Ileostomy in place Iron overload due to repeated red blood cell transfusions Parastomal hernia Patient in clinical research study (08/20/15) Pre-op evaluation Pyelonephritis, acute Right bundle branch block Small bowel obstruction Thrombocytopenia UTI (urinary tract infection) Home Medications magnesium oxide 800 mg PO BID 09/08/15 [History Last Taken 02/10/20] acyclovir 400 mg PO BID 07/27/16 [History Last Taken 02/10/20] apixaban 5 mg PO BID 07/27/16 [History Last Taken 02/10/20] ergocalciferol (vitamin D2) 50,000 unit PO FR 07/27/16 [History Last Taken 02/09/20 08:00] ondansetron HCl 8 mg PO Q8H PRN PRN 07/27/16 [History Last Taken Unknown] estradiol 1 dose VAGINAL DAILY 07/26/17 [History Last Taken 02/10/20] sirolimus 0.5 mg PO MOWEFR 07/26/17 [History Last Taken 02/09/20] L.acidoph, paracasei,B. lactis 1 ea PO DAILY 05/06/19 [History Last Taken 02/10/20] esomeprazole magnesium 40 mg PO DAILY 05/06/19 [History Last Taken 02/10/20] qhubylev-ges-LN-lycopen-lutein 1 ea PO DAILY 02/10/20 [History Last Taken 02/10/20] cholestyramine (with sugar) 4 gram oral powder 4 g PO TID g 02/19/20 [History Last Taken Unknown] meclizine 25 mg tablet 25 mg PO TID 02/19/20 [History Last Taken Unknown] zolpidem 5 mg tablet 5 mg PO QHS PRN 02/19/20 [History Last Taken Unknown] levothyroxine 100 mcg tablet 100 mcg PO DAILY #1 tab 04/11/20 [Rx Last Taken Unknown] Allergy/AdvReac Type Severity Reaction Status Date / Time Gadolinium-MRI Contrast Allergy Hives Verified 01/07/22 23:14 Medium [CONTRAST] Iodinated Contrast Media Allergy Hives Verified 01/07/22 23:14 [Iodinated Contrast Media - IV Dye] iodine Allergy Hives Verified 01/07/22 23:14 teriparatide [From Forteo] AdvReac Unknown Unknown Verified 01/07/22 23:14 Surgical History Bone marrow transplant status History of total colectomy Social History Smoking Status: Never smoker Results Lab / Micro Data Result Diagrams: 01/07/22 23:25 01/07/22 23:25 Charges/Coding Addendum Addendum: Dr. Turner: I personally reviewed the chart and examined the patient, and agree with the above findings. 71-year-old female who had AML in 2013 status post bone marrow transplant who is also has a exxrl-mmevym-mxty disease which led to a perforated viscus and her ileostomy in 2014 presents to the hospital with gastroenteritis. She is sirolimus as an outpatient which we can continue as well as her Eliquis. We will send a stool sample and continue with IV fluids as well as antinausea medications. She does have acute renal failure with a creatinine of 2.17 when her baseline is around 1. Also her hemoglobin is elevated at 18.8 consistent with dehydration. Clinical time spent in all aspects of patient care: 35 minutes Visit Charges Inpatient E&M: 76607 Init Hosp L2
--- NOTE | 2022-01-08 01:42 | ED.RN ---
No urine obtained from straight cath and not able to go on bed peterson. Ot in acute renal failure. Stool sample sent from colostomy bag.
[2022-01-08] MEDS: 0.9% Saline Lock 10 ML Syringe IV ×2 (03:10→06:01)
[2022-01-08] MEDS: proCHLORPERazine 10 MG/2 ML Vial 5 MG IV (03:10)
[2022-01-08 05:14] LABS: Absolute Lymphocyte Count 1.86 X10^3/uL (0.83-4.51); Absolute Neutrophil Count 8.4 X10^3/uL (2.0-7.7); Basophil# 0.04 X10^3/uL; Basophil% 0.3 % (0-1); Eosinophils% 3.3 % (0-5); Hematocrit 50.7 % (37-47); Hemoglobin 17.6 g/dL (12.0-15.0); Lymphocyte # 1.86 X10^3/ul (0.83-4.51); Lymphocyte % 15.3 % (19-41); Mean Corp Hgb Conc 34.7 g/dL (32-36); Mean Corpuscular Hgb 35.7 pg (27.0-32.0); Mean Corpuscular Volume 102.8 fL (81-99); Monocyte# 1.34 X10^3/uL; NRBC Flagged by Analyzer 0 % (0-5); Neutrophil # 8.44 X10^3/uL (2.7-7.7); Neutrophil % 69.7 % (47-70); Platelet Count 281 K/mm3 (150-450); RBC Distribution Width CV 14.4 % (11.6-14.6); RBC Distribution Width SD 54.4 fl (35.1-43.9); Red Blood Count 4.93 M/mm3 (4.2-5.4); White Blood Count 12.1 K/mm3 (4.4-11.0)
[2022-01-08 05:29] LABS: ALB/GLOB Ratio 0.9 RATIO (0.9-2.4); AST(SGOT) 37 U/L (15-37); Alanine Aminotransfer ALT/SGPT 59 U/L (13-56); Albumin, Serum 4.2 g/dL (3.2-5.0); Alkaline Phosphatase 131 U/L (45-117); Anion Gap 10 (5-15); BUN 34 mg/dL (7-18); BUN/Creat Ratio 22.8 RATIO (10-20); Calcium,Total 9.1 mg/dL (8.5-10.1); Chloride 109 mmol/L (98-107); Creatinine, Serum 1.49 mg/dL (0.55-1.02); EST Glomerular Filtration Rate 37 mL/min (>60); Est Glom Filt Rate - Afr Amer 44 mL/min (>60); Estimated Creatinine Clearance 36.61 ml/min; Globulin 4.6 g/dL (2.2-4.2); Glucose 141 mg/dL (74-106); Potassium 3.9 mmol/L (3.5-5.1); Protein, Total 8.8 g/dL (6.4-8.2); Sodium Level 138 mmol/L (136-145)
[2022-01-08] MEDS: Levothyroxine 100 MCG Tablet PO (06:00)
[2022-01-08] MEDS: Meclizine HCl 25 MG Tablet PO ×3 (06:00→23:45)
[2022-01-08] MEDS: 0.9% Normal Saline 1,000 ML 100 ML IV (06:01)
[2022-01-08] MEDS: Cholestyramine/Sucrose 4 GM/PACKET PO ×3 (08:25→16:58)
[2022-01-08] MEDS: Acyclovir 200 MG Capsule 400 MG PO ×2 (09:42→23:45)
[2022-01-08] MEDS: Metoprolol Tartrate 25 MG Tablet PO (09:43)
[2022-01-08] MEDS: Pantoprazole Sodium 40 MG Tablet PO (09:43)
--- NOTE | 2022-01-08 10:00 | CASEMGMT ---
RN REUBEN Face to Face with patient for initial transition planning/care coordination assessment. RN CM introduced self and role at [facility]. Patient lying in bed, resting, at bedside. willing to participate in assessment and is able to answer all questions appropriately. Care providers, pharmacy, and demographics verified. wishes for patient to discharge home, denies need for home health at this time. states he has no further needs or concerns at this time. CM to follow for discharge planning needs that may arise. PCP: Niki Specialists: Mp, oncologist [facility]erred [facility]acy: [facility] Insurance: [employer] [facility] Prescription Benefit: yes, express scripts Living Will/HPOA: yes Emigdio Simmons LNOK: Living Arrangements: Patient lives with in a split level home. states that patient is independent and able to ambulate stairs. Transportation: DME/HHC: Patient has shower chair, raised toilet, cane, nebulizer, pulse ox and [place] [facility] [facility] and [facility]. states patient has previously had HHC but could not recall agency. Disposition Plan: Patient to discharge home with famiy support and follow-up plans in place. Pamela CAAL, RN, CM
[2022-01-08 10:09] LABS: Mucous, Urine 0 SEEN /hpf (<or=2+)
[2022-01-08 10:10] LABS: Color, Urine Yellow (Yellow); Glucose, Dipstick Normal (Normal); Ketone-Dipstick 5 mg/dl (Negative); Leukocyte Esterase-Dipstick 500 /ul (Negative); Nitrite-Dipstick Negative (Negative); Occult Blood-Urine 10 /ul (Negative); Protein-Dipstick 30 mg/dl (Negative); Specific Gravity, Urine 1.025 (1.002-1.030); Urine Bilirubin Dipstick Negative (Negative); Urine Clarity Clear (Clear); Urine Urobilinogen Normal (Normal)
[2022-01-08 10:22] LABS: Bacteria 1+ /hpf (None Seen); Red Blood Cells-Urine 0-5 SEEN /hpf (0-5); Squamous Epithelial Cells - UA 0-5 SEEN /hpf (5-10); White Blood Cells 10-25 SEEN /hpf (0-5)
--- NOTE | 2022-01-08 10:34 | PCM.PN.HOSP ---
Documented by User: Nidia Badillo WORKERS COMPENSATION ADJUSTER, WORKERS COMPENSATION ADJUSTER-C 01/08/22 10:54 Subjective Subjective Patient seen and examined. States she does not have an appetite. Denies vomiting. Denies abdominal pain. Continues to have diarrhea and increased output through ileostomy. Objective Data Objective Data Vital Signs: Vital Signs Temp Pulse Resp BP Pulse Ox 98.7 F 118 H 16 117/73 95 01/08/22 07:53 01/08/22 09:43 01/08/22 07:53 01/08/22 09:43 01/08/22 07:53 Oxygen Delivery Method Room Air Weight: 145 lb 8.081 oz Body Mass Index (BMI) 30.4 Intake & Output: Intake and Output for Last 24 Hours 01/06/22 01/07/22 01/08/22 23:59 23:59 23:59 Intake Total 1840.83 / 1840.83 Output Total 450 / 450 Balance 1390.83 / 1390.83 Lab / Micro Data Result Diagrams: 01/08/22 05:05 01/08/22 05:05 Labs: Laboratory Results - last 24 hr 01/07/22 23:25: WBC 12.1 H, RBC 5.30, Hgb 18.8 H*, Hct 55.2 H, MCV 104.2 H, MCH 35.5 H, MCHC 34.1, RDW Std Deviation 56.3 H, RDW Coeff of Saloni 14.4, Plt Count 277, MPV 10.2, Immature Gran % (Auto) 1.700 H, Neut % (Auto) 75.5 H, Lymph % (Auto) 11.5 L, [place] % (Auto) 10.9 H, Eos % (Auto) 0.0, Baso % (Auto) 0.4, Absolute Neuts (auto) 9.2 H, Absolute Lymphs (auto) 1.40, Nucleated RBC % 0 01/07/22 23:25: Sodium 135 L, Potassium 4.3, Chloride 104, Carbon Dioxide 17.0 L, Anion Gap 14, BUN 35 H, Creatinine 2.17 H, Estim Creat Clear Calc 25.59, Est GFR (MDRD) Af Amer 29 L, Est GFR (MDRD) Non-Af 24 L, BUN/Creatinine Ratio 16.1, Glucose 157 H, Calcium 10.4 H, Total Bilirubin 0.60, Direct Bilirubin 0.29, AST 42 H, ALT 62 H, Alkaline Phosphatase 146 H, Total Protein 10.1 H, Albumin 4.8, Globulin 5.3 H 01/08/22 05:05: WBC 12.1 H, RBC 4.93, Hgb 17.6 H, Hct 50.7 H, MCV 102.8 H, MCH 35.7 H, MCHC 34.7, RDW Std Deviation 54.4 H, RDW Coeff of Saloni 14.4, Plt Count 281, MPV 10.0, Immature Gran % (Auto) 0.400, Neut % (Auto) 69.7, Lymph % (Auto) 15.3 L, [place] % (Auto) 11.0 H, Eos % (Auto) 3.3, Baso % (Auto) 0.3, Absolute Neuts (auto) 8.4 H, Absolute Lymphs (auto) 1.86, Nucleated RBC % 0 01/08/22 05:05: Sodium 138, Potassium 3.9, Chloride 109 H, Carbon Dioxide 19.0 L, Anion Gap 10, BUN 34 H, Creatinine 1.49 H, Estim Creat Clear Calc 36.61, Est GFR (MDRD) Af Amer 44 L, Est GFR (MDRD) Non-Af 37 L, BUN/Creatinine Ratio 22.8 H, Glucose 141 H, Calcium 9.1, Total Bilirubin 0.50, AST 37, ALT 59 H, Alkaline Phosphatase 131 H, Total Protein 8.8 H, Albumin 4.2, Globulin 4.6 H, Albumin/Globulin Ratio 0.9 01/08/22 10:00: Urine Color Yellow, Urine Clarity Clear, Urine pH 5.0, Ur Specific [place] 1.025, Urine Protein 30 H, Urine Glucose (UA) Normal, Urine Ketones 5 H, Urine Occult Blood 10 H, Urine Nitrite Negative, Urine Bilirubin Negative, Urine Urobilinogen Normal, Ur Leukocyte Esterase 500 H, Urine RBC 0-5 SEEN, Urine WBC 10-25 SEEN, Ur Squamous Epith Cells 0-5 SEEN, Urine Bacteria 1+, Urine Mucus 0 SEEN Micro: Microbiology 01/08/22 01:37 Stool Stool Lactoferrin - Final 01/08/22 01:37 Stool Enteric Bacteriology - Final Norovirus Rotavirus 01/08/22 01:37 Stool C. difficile DNA Amplification - Final Physical Exam Const alert and oriented x3 Constitutional Narrative: Appears fatigued Orientation / Consciousness: awake, oriented to person, oriented to place and oriented to time HEENT normocephalic Mouth: dry mucous membranes Eyes PERRL, EOMs intact bilaterally and conjunctivae normal Neck no lymphadenopathy Resp normal respiratory effort and clear to auscultation bilaterally Cardio regular rate, regular rhythm and no murmurs Peripheral Pulses: pulses 2+ throughout GI normal to inspection, nondistended, normoactive bowel sounds, non-tender and non-distended GI Narrative: Ileostomy intact Extremity normal to inspection Skin no rashes or lesions noted Lesions: no lesions Rashes: no rashes Trauma: no lacerations or abrasions Neuro CN's II-XII intact bilaterally, no focal motor deficits, no sensory deficits noted and deep tendon reflexes 2+ bilaterally Psych Mood & Affect: flat affect Assessment & Plan Assessment/Plan (1) Acute kidney injury: (2) Gastroenteritis: PLAN: 1. Acute kidney injury secondary to gastroenteritis as a result of norovirus-continue IV fluids, creatinine improving. Supportive management. As needed antiemetics. Advance diet as tolerated. Trend BMP. 2. Paroxysmal atrial fibrillation-continue metoprolol, no longer on anticoagulation. 3. Hypothyroidism-continue Synthroid regimen. 4. 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 5. Status post ileostomy (2014)-secondary to history of nrqpn-tlioqx-ioqv disease followed by perforated bowel 6. GERD- continue PPI. DVT prophylaxis- Eliquis This patient was seen by PALOMA Aguilera under the supervision of Dr. Olmos. Time spent examining patient, reviewing data and subsequent management of care: 12 Minutes Documented by User: Dr. Greg Olmos MD 01/08/22 12:27 Subjective Subjective Seen and examined. Patient admitted with increased ileostomy output resulting in PEPE on CKD. Patient had total colectomy status post ileostomy for leukemia. She also has oivdk-pkdfxs-swwl disease. Objective Data Lab / Micro Data Result Diagrams: 01/08/22 05:05 04/21/22 05:05 Physical Exam Narrative General: Alert, Oriented x3, Cooperative HEENT: Atraumatic, PERRLA, EOMI, Normocephalic Oral: Oral mucosa moist. No Gingival or Mucosal Lesions/ Ulcerations Neck: Supple, No JVD, Negative Carotid Bruits Lungs: Air entry diminished in bilateral lung bases. No crepitation/rhonchi Cardiovascular: Regular rate, Regular Rhythm, Normal S1, Normal S2, No murmurs Abdomen: Soft, mild tenderness around ileostomy. Liquid stool. Bowel Sounds Present. Chronic parastomal hernia. Old healed surgical scar. : No renal angle tenderness. No suprapubic tenderness. Extremities: No edema, Capillary Refill Less than 3 Seconds Skin: No rashes, No breakdown Musculoskeletal: No Tenderness to Palpation of Joints or Extremities. Muscle strength 4/5 at major joints of lower extremities. Neurological: Cranial nerves II-XII grossly intact, DTR 2+/4 and Symmetrical, Neuro grossly intact Psych/Mental Status: Flat affect. Assessment & Plan Assessment/Plan (1) Acute kidney injury: (2) Gastroenteritis: PLAN: This patient was seen in conjunction with WORKERS COMPENSATION ADJUSTER, Nidia. I have independently interviewed and examined the patient and reviewed pertinent history, examination findings, laboratory and plan of management. I have reviewed the note and agree with the documented findings with the few additional points. In brief, patient is 71-year-old female admitted with nausea, vomiting and increased ileostomy liquid stool output for more than 1 day resulting into PEPE to CKD. She did not urinate since 8 AM on 01/07. Having nausea and dry heaving. 1. Acute viral gastroenteritis from norovirus and rotavirus: Enteric panel positive for norovirus and rotavirus. Fecal WBC lactoferrin positive. C. difficile PCR negative, no toxigenic C. difficile detected. No antibiotic indicated. Aggressive volume resuscitation to have urine output about 1 L/day. Avoid Imodium/antidiarrheal agent for the clearance of virus. On cholestyramine. 2. Acute kidney injury on CKD secondary to volume loss/prerenal: Hyperkalemia. Change IV fluid to Ringer lactate. Normal anion gap metabolic acidosis, chloride 109, bicarb 19. BUN/creatinine 1.49, improving. 3. Acute myeloid leukemia status post bone marrow transplant complication of tljmf-pvlqmn-pnrl disease, resulting perforation and total colectomy status post ileostomy in 2014. On sirolimus and acyclovir continued. Other comorbidities as mentioned above including GERD, hypothyroidism, paroxysmal A. fib: Home medications continued. I have discussed my assessment with WORKERS COMPENSATION ADJUSTER, Nidia and orders have been reviewed. Charges/Coding Visit Charges Inpatient E&M: 89061 Subs Hosp L2
--- NOTE | 2022-01-08 10:34 | NURSING ---
Spoke with , Howard in regards to bringing in patients home medication, Sirolimus. Informed that he will have to bring the actual pill bottle in and not just the medications in her pill rizo. voiced understanding and plans to bring medication from home.
[2022-01-08] MEDS: Lactated Ringers 1,000 ML 150 ML IV ×2 (13:13→20:23)
[2022-01-08] MEDS: Ensure Clear 120 ML Liquid PO ×3 (13:29→23:45)
[2022-01-09] VITALS (7 sets, daily range): BP systolic 111–146; BP diastolic 70–87; PULSE 93–102; RESP 14–18; TEMP 36.8–37.4; O2SAT 93–94
[2022-01-09] MEDS: Lactated Ringers 1,000 ML 150 ML IV ×2 (04:53→10:00)
[2022-01-09] MEDS: Levothyroxine 100 MCG Tablet PO (05:26)
[2022-01-09] MEDS: Meclizine HCl 25 MG Tablet PO ×3 (05:26→20:23)
[2022-01-09] MEDS: Acetaminophen 325 MG Tablet 650 MG PO ×2 (06:27→20:32)
[2022-01-09 07:01] LABS: Anion Gap 7 (5-15); BUN 30 mg/dL (7-18); BUN/Creat Ratio 26.3 RATIO (10-20); Calcium,Total 8.5 mg/dL (8.5-10.1); Chloride 116 mmol/L (98-107); Creatinine, Serum 1.14 mg/dL (0.55-1.02); EST Glomerular Filtration Rate 50 mL/min (>60); Est Glom Filt Rate - Afr Amer 60 mL/min (>60); Estimated Creatinine Clearance 47.84 ml/min; Glucose 103 mg/dL (74-106); Potassium 3.8 mmol/L (3.5-5.1); Sodium Level 139 mmol/L (136-145)
[2022-01-09] MEDS: Ensure Clear 120 ML Liquid PO ×4 (09:52→20:24)
[2022-01-09] MEDS: Acyclovir 200 MG Capsule 400 MG PO ×2 (09:52→20:24)
[2022-01-09] MEDS: Pantoprazole Sodium 40 MG Tablet PO (09:52)
[2022-01-09] MEDS: Cholestyramine/Sucrose 4 GM/PACKET PO ×2 (09:52→18:50)
[2022-01-09] MEDS: Metoprolol Tartrate 25 MG Tablet PO (09:52)
--- NOTE | 2022-01-09 10:10 | NURSING ---
Pt ambulated to bathroom and then this nurse had her sit up in chair. Pt sat up in chair maybe 5 min before pt said she did not want to sit in that chair anymore Pt rather be in bed. Refused to stay up. Pt looks tired.
--- NOTE | 2022-01-09 11:04 | PCM.PN.HOSP ---
Documented by User: Nidia Badillo NP, GAS MASK INSPECTOR-C 01/09/22 11:09 Subjective Subjective Patient seen and examined. Denies nausea, vomiting. States she was able to tolerate breakfast. Reports ongoing high output from ostomy. Denies fever, chills. Reports intermittent abdominal cramping. Objective Data Objective Data Vital Signs: Vital Signs Temp Pulse Resp BP Pulse Ox 99.3 F H 102 H 18 113/80 93 01/09/22 08:31 01/09/22 10:00 01/09/22 08:31 01/09/22 08:31 01/09/22 08:31 Oxygen Flow Rate (L/min) 1 Oxygen Delivery Method Room Air Weight: 145 lb 8.081 oz Body Mass Index (BMI) 30.4 Intake & Output: Intake and Output for Last 24 Hours 01/07/22 01/08/22 01/09/22 23:59 23:59 23:59 Intake Total 3560.83 / 3680.83 1902.5 / 1902.5 Output Total 2050 / 2550 2400 / 2400 Balance 1510.83 / 1130.83 -497.5 / -497.5 Lab / Micro Data Result Diagrams: 01/08/22 05:05 01/09/22 05:30 Labs: Laboratory Results - last 24 hr 01/09/22 05:30: Sodium 139, Potassium 3.8, Chloride 116 H, Carbon Dioxide 16.0 L, Anion Gap 7, BUN 30 H, Creatinine 1.14 H, Estim Creat Clear Calc 47.84, Est GFR (MDRD) Af Amer 60, Est GFR (MDRD) Non-Af 50 L, BUN/Creatinine Ratio 26.3 H, Glucose 103, Calcium 8.5 Micro: Microbiology 01/08/22 01:37 Stool Stool Lactoferrin - Final 01/08/22 01:37 Stool Enteric Bacteriology - Final Norovirus Rotavirus 01/08/22 01:37 Stool C. difficile DNA Amplification - Final Physical Exam Const alert, oriented x3 and no apparent distress Orientation / Consciousness: awake, oriented to person, oriented to place and oriented to time HEENT normocephalic Mouth: dry mucous membranes Eyes PERRL, EOMs intact bilaterally and conjunctivae normal Neck no lymphadenopathy Resp normal respiratory effort and clear to auscultation bilaterally Cardio regular rate, regular rhythm and no murmurs Peripheral Pulses: pulses 2+ throughout GI normal to inspection, nondistended, normoactive bowel sounds, non-tender and non-distended GI Narrative: Ileostomy intact Extremity normal to inspection Skin no rashes or lesions noted Lesions: no lesions Rashes: no rashes Trauma: no lacerations or abrasions Neuro CN's II-XII intact bilaterally, no focal motor deficits, no sensory deficits noted and deep tendon reflexes 2+ bilaterally Psych mental status grossly normal and affect normal Assessment & Plan Assessment/Plan (1) Gastroenteritis: (2) Acute kidney injury: PLAN: 1. Acute kidney injury on chronic kidney disease stage II secondary to acute viral gastroenteritis as a result of norovirus/rotavirus-continue IV fluids, creatinine improving. Supportive management. As needed antiemetics. Advance diet as tolerated. Trend BMP. 2. Paroxysmal atrial fibrillation-continue metoprolol, no longer on anticoagulation. 3. Hypothyroidism-continue Synthroid regimen. 4. 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 5. Status post ileostomy (2014)-secondary to history of vvfeu-dapjed-onrp disease followed by perforated bowel 6. GERD- continue PPI. DVT prophylaxis- SCDs This patient was seen by PALOMA Aguilera under the supervision of Dr. Olmos. Time spent examining patient, reviewing data and subsequent management of care: 12 Minutes Documented by User: Dr. Greg Olmos MD 01/09/22 12:29 Subjective Subjective Follow-up for PEPE due to diarrhea and viral gastroenteritis Patient is still has high ileostomy output. Her ileostomy bag was full of liquid with little amount of feces. Objective Data Lab / Micro Data Result Diagrams: 01/08/22 05:05 01/09/22 05:30 Physical Exam Narrative General: Alert, Oriented x3, Cooperative HEENT: Atraumatic, PERRLA, EOMI, Normocephalic Oral: Oral mucosa moist. No Gingival or Mucosal Lesions/ Ulcerations Neck: Supple, No JVD, Negative Carotid Bruits Lungs: Air entry diminished in bilateral lung bases. No crepitation/rhonchi Cardiovascular: Regular rate, Regular Rhythm, Normal S1, Normal S2, No murmurs Abdomen: Ileostomy bag output 3 L in last 24 hours. Soft, mild tenderness around ileostomy. Liquid stool. Bowel Sounds Present. Chronic parastomal hernia. Old healed surgical scar. : No renal angle tenderness. No suprapubic tenderness. Extremities: No edema, Capillary Refill Less than 3 Seconds Skin: No rashes, No breakdown Musculoskeletal: No Tenderness to Palpation of Joints or Extremities. Muscle strength 4/5 at major joints of lower extremities. Neurological: Cranial nerves II-XII grossly intact, DTR 2+/4 and Symmetrical, Neuro grossly intact Psych/Mental Status: Flat affect. Assessment & Plan Assessment/Plan (1) Gastroenteritis: (2) Acute kidney injury: PLAN: This patient was seen in conjunction with GAS MASK INSPECTOR, Nidia. I have independently interviewed and examined the patient and reviewed pertinent history, examination findings, laboratory and plan of management. I have reviewed the note and agree with the documented findings with the few additional points. In brief, patient is 71-year-old female admitted with nausea, vomiting and increased ileostomy liquid stool output for more than 1 day resulting into PEPE to CKD. She did not urinate since 8 AM on 01/07. Having nausea and dry heaving. 1. Acute viral gastroenteritis from norovirus and rotavirus: Enteric panel positive for norovirus and rotavirus. Fecal WBC lactoferrin positive. C. difficile PCR negative, no toxigenic C. difficile detected. No antibiotic indicated. Aggressive volume resuscitation to have urine output about 1 L/day. Avoid Imodium/antidiarrheal agent for the clearance of virus. On cholestyramine. 01/09: Patient is still has high ileostomy bag output about 3 L. Oral diet advanced. Imodium or other antidiarrheal agent is contraindicated in view of positive rotavirus and norovirus. Patient having swelling of upper and lower extremities. We will decrease IV fluid. 2. Acute kidney injury on CKD secondary to volume loss/prerenal: Hyperkalemia. Change IV fluid to Ringer lactate. Normal anion gap metabolic acidosis, chloride 109, bicarb 19. BUN/creatinine 1.49, improving. 01/09: Creatinine improved from 2.17-1.14. 3. 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 On sirolimus and acyclovir continued. Other comorbidities as mentioned above including GERD, hypothyroidism, paroxysmal A. fib: Home medications continued. I have discussed my assessment with GAS MASK INSPECTORNidia and orders have been reviewed. Charges/Coding Visit Charges Inpatient E&M: 03988 Subs Hosp L2
[2022-01-09] MEDS: Lactated Ringers 1,000 ML 100 ML IV (18:52)
[2022-01-09] MEDS: MELATONIN 3 MG TABLET PO (20:32)
[2022-01-10 02:30] VITALS: BP 105/71; PULSE 92; RESP 16; TEMP 37.1; O2SAT 92
[2022-01-10] MEDS: Lactated Ringers 1,000 ML 100 ML IV ×2 (03:15→04:49)
[2022-01-10] MEDS: Meclizine HCl 25 MG Tablet PO (05:10)
[2022-01-10] MEDS: Levothyroxine 100 MCG Tablet PO (05:11)
[2022-01-10 06:12] LABS: Absolute Lymphocyte Count 5.16 X10^3/uL (0.83-4.51); Basophil# 0.02 X10^3/uL; Basophil% 0.2 % (0-1); Eosinophil# 0.03 X10^3/uL; Eosinophils% 0.3 % (0-5); Hematocrit 52.4 % (37-47); Hemoglobin 17.4 g/dL (12.0-15.0); Lymphocyte # 5.16 X10^3/ul (0.83-4.51); Lymphocyte % 60.1 % (19-41); Mean Corp Hgb Conc 33.2 g/dL (32-36); Mean Corpuscular Hgb 35.2 pg (27.0-32.0); Mean Corpuscular Volume 106.1 fL (81-99); Mean Platelet Vol. 10.6 fl (6.2-12.0); Monocyte# 1.33 X10^3/uL; Monocyte% 15.5 % (0-10); NRBC Flagged by Analyzer 0 % (0-5); Neutrophil # 2.04 X10^3/uL (2.7-7.7); Neutrophil % 23.8 % (47-70); POSITIVE DIFFERENTIAL YES; Platelet Count 232 K/mm3 (150-450); RBC Distribution Width CV 15.3 % (11.6-14.6); RBC Distribution Width SD 60.6 fl (35.1-43.9); Red Blood Count 4.94 M/mm3 (4.2-5.4); White Blood Count 8.6 K/mm3 (4.4-11.0)
[2022-01-10 06:20] LABS: Differential Indicated SCAN CRITERIA MET
[2022-01-10 06:34] LABS: Anion Gap 4 (5-15); BUN 27 mg/dL (7-18); BUN/Creat Ratio 21.4 RATIO (10-20); Calcium,Total 9.3 mg/dL (8.5-10.1); Chloride 118 mmol/L (98-107); Creatinine, Serum 1.26 mg/dL (0.55-1.02); EST Glomerular Filtration Rate 45 mL/min (>60); Est Glom Filt Rate - Afr Amer 54 mL/min (>60); Estimated Creatinine Clearance 43.29 ml/min; Glucose 84 mg/dL (74-106); Sodium Level 139 mmol/L (136-145)
[2022-01-10 08:09] LABS: Howell-Jolly Body 1+; Hypochromasia 3+
[2022-01-10 08:10] LABS: Tear Drop Cell 1+
--- NOTE | 2022-01-10 09:35 | PCM.DC ---
Discharge Instructions Diet Discharge Diet: Light diet - advance as tolerated Activity Discharge Activity: Return to Normal Activity Dressing / Incision Call your doctor if you observe: Inability to urinate Follow Up Care Test Results: Test results from this visit will be discussed in further detail at your follow-up appointment, if applicable. Discharge Plan Admission Admit Date/Time: 01/08/22 01:29 Primary Reason for Your Visit: Acute kidney injury, norovirus Attending Provider: Greg Olmos Primary Care Provider: Dorcas Prince Instructions Additional Instructions / Restrictions: You will need repeat BMP on Wednesday or Wednesday by PCP to assess kidney function. Discharge Orders/Prescriptions Prescriptions: Continued meclizine 25 mg tablet 25 mg PO TID RF: 0 magnesium oxide 400 MG tablet 800 mg PO BID RF: 0 acyclovir 400 MG tablet 400 mg PO BID RF: 0 ergocalciferol (vitamin D2) 50,000 UNIT capsule 50,000 unit PO FR RF: 0 estradiol 42.5 GM cream 1 dose vaginal DAILY RF: 0 esomeprazole magnesium 40 MG capsule,delayed release(DR/EC) 40 mg PO DAILY RF: 0 L.acidoph, paracasei,B. lactis 1 EACH capsule 1 ea PO DAILY RF: 0 eyhrmtvv-lsd-ML-lycopen-lutein 1 EACH tablet 1 ea PO DAILY RF: 0 metoprolol tartrate 25 mg tablet 25 mg PO DAILY RF: 0 levothyroxine 100 mcg tablet 100 mcg PO DAILY Qty: 1 RF: 0 Referrals / Follow Up: Dorcas Prince MD [Primary Care Provider] - See Referral Note (3-5 days) Disposition Disposition (needs filled in before D/C Order can be placed): Home, Self Care
[2022-01-10 09:37] VITALS: BP 113/73; PULSE 95
[2022-01-10] MEDS: Metoprolol Tartrate 25 MG Tablet PO (09:37)
[2022-01-10] MEDS: Cholestyramine/Sucrose 4 GM/PACKET PO (09:38)
[2022-01-10] MEDS: Pantoprazole Sodium 40 MG Tablet PO (09:38)
[2022-01-10] MEDS: Acyclovir 200 MG Capsule 400 MG PO (09:38)
[2022-01-10] MEDS: Ensure Clear 120 ML Liquid PO (09:38)
[2022-01-10 09:43] VITALS: BP 113/73; PULSE 95; RESP 16; TEMP 36.3; O2SAT 94
--- NOTE | 2022-01-10 09:54 | DS.PCM_ITS ---
Documented by User: Nidia Badillo NP, GAMBLING SUPERVISOR-C 01/10/22 10:09 Providers Date of Admission: 01/08/22 Date of Discharge: 01/10/22 Primary Care Physician: Dr. Dorcas Prince MD Reason For Visit: GASTROENTERITIS WITH ARF Diagnosis Discharge Diagnosis (1) Gastroenteritis: Status: Acute Code(s): K52.9 - Noninfective gastroenteritis and colitis, unspecified (2) Acute kidney injury: Status: Acute Code(s): N17.9 - Acute kidney failure, unspecified Medications at Discharge Home Medications magnesium oxide 800 mg PO BID 09/08/15 acyclovir 400 mg PO BID 07/27/16 ergocalciferol (vitamin D2) 50,000 unit PO FR 07/27/16 estradiol 1 dose VAGINAL DAILY 07/26/17 L.acidoph, paracasei,B. lactis 1 ea PO DAILY 05/06/19 esomeprazole magnesium 40 mg PO DAILY 05/06/19 jcfawjzj-hsm-CE-lycopen-lutein 1 ea PO DAILY 02/10/20 meclizine 25 mg tablet 25 mg PO TID 02/19/20 levothyroxine 100 mcg tablet 100 mcg PO DAILY #1 tab 04/11/20 metoprolol tartrate 25 mg PO DAILY 01/08/22 Hospital Course Operations None Procedures None Summary of Care Provided Hospital Course: Patient is a 71-year-old female admitted 01/08/2022 due to diarrhea. 1. Acute kidney injury on chronic kidney disease stage II secondary to acute viral gastroenteritis as a result of norovirus/rotavirus-Creatinine improved. Tolerating diet. Still having significant output from ostomy. Patient requesting discharge home. Discussed liberal fluid intake. Patient will obtain BMP on Wednesday or Wednesday. Follow up with PCP in 3-5 days. 2. Paroxysmal atrial fibrillation-continue metoprolol, no longer on anticoagulation. 3. Hypothyroidism-continue Synthroid regimen. 4. 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 5. Status post ileostomy (2014)-secondary to history of cvtrs-rjouvl-tbpk disease followed by perforated bowel 6. GERD- continue PPI. Physical Exam Const alert, oriented x3 and no apparent distress Orientation / Consciousness: awake, oriented to person, oriented to place and oriented to time HEENT normocephalic Mouth: dry mucous membranes Eyes PERRL, EOMs intact bilaterally and conjunctivae normal Neck no lymphadenopathy Resp normal respiratory effort and clear to auscultation bilaterally Cardio regular rate, regular rhythm and no murmurs Peripheral Pulses: pulses 2+ throughout GI normal to inspection, nondistended, normoactive bowel sounds, non-tender and non-distended GI Narrative: Ileostomy intact Extremity normal to inspection Skin no rashes or lesions noted Lesions: no lesions Rashes: no rashes Trauma: no lacerations or abrasions Neuro CN's II-XII intact bilaterally, no focal motor deficits, no sensory deficits noted and deep tendon reflexes 2+ bilaterally Psych mental status grossly normal and affect normal Patient seen and examined prior to discharge. Physical assessment as noted above. Patient is stable for discharge with follow up recommendations as noted above. This patient was seen by PALOMA Aguilera under the supervision of Dr. Olmos. Time spent examining patient, reviewing data and subsequent management of care: 16 minutes Weight / BMI Weight Weight: 145 lb 8.081 oz Body Mass Index (BMI) 30.4 ABG / Lab / Microbiology Data Result Diagrams: 01/10/22 05:30 01/10/22 05:30 Laboratory: Laboratory Results - last 24 hr 01/10/22 05:30: WBC 8.6, RBC 4.94, Hgb 17.4 H, Hct 52.4 H, MCV 106.1 H, MCH 35.2 H, MCHC 33.2, RDW Std Deviation 60.6 H, RDW Coeff of Saloni 15.3 H, Plt Count 232, MPV 10.6, Immature Gran % (Auto) 0.100, Neut % (Auto) 23.8 L, Lymph % (Auto) 60.1 H, [place] % (Auto) 15.5 H, Eos % (Auto) 0.3, Baso % (Auto) 0.2, Absolute Neuts (auto) 2.0, Absolute Lymphs (auto) 5.16 H, Nucleated RBC % 0, Hypochromasia 3+, Tear Drop Cells 1+, [place] Bodies 1+ 01/10/22 05:30: Sodium 139, Potassium 4.0, Chloride 118 H, Carbon Dioxide 17.0 L , Anion Gap 4 L, BUN 27 H, Creatinine 1.26 H, Estim Creat Clear Calc 43.29, Est GFR (MDRD) Af Amer 54 L, Est GFR (MDRD) Non-Af 45 L, BUN/Creatinine Ratio 21.4 H , Glucose 84, Calcium 9.3 Microbiology: Microbiology 01/08/22 01:37 Stool Stool Lactoferrin - Final 01/08/22 01:37 Stool Enteric Bacteriology - Final Norovirus Rotavirus 01/08/22 01:37 Stool C. difficile DNA Amplification - Final D/C Instructions Discharge Diet: Light diet - advance as tolerated Call your doctor if you observe: Inability to urinate Meaningful Use Info Meaningful Use Diagnoses (Choose all that apply): None applicable Discharge Plan Admission Admit Date/Time: 01/08/22 01:29 Primary Reason for Your Visit: Acute kidney injury, norovirus Attending Provider: Greg Olmos Primary Care Provider: Dorcas Prince Instructions Patient Instructions: Rotavirus Infection in Children, Understanding Norovirus, Rotavirus (Stool) Additional Instructions / Restrictions: You will need repeat BMP on Wednesday or Wednesday by PCP to assess kidney function. Discharge Orders/Prescriptions Prescriptions: Continued meclizine 25 mg tablet 25 mg PO TID RF: 0 magnesium oxide 400 MG tablet 800 mg PO BID RF: 0 acyclovir 400 MG tablet 400 mg PO BID RF: 0 ergocalciferol (vitamin D2) 50,000 UNIT capsule 50,000 unit PO FR RF: 0 estradiol 42.5 GM cream 1 dose vaginal DAILY RF: 0 esomeprazole magnesium 40 MG capsule,delayed release(DR/EC) 40 mg PO DAILY RF: 0 L.acidoph, paracasei,B. lactis 1 EACH capsule 1 ea PO DAILY RF: 0 zyveusyi-ara-FI-lycopen-lutein 1 EACH tablet 1 ea PO DAILY RF: 0 metoprolol tartrate 25 mg tablet 25 mg PO DAILY RF: 0 levothyroxine 100 mcg tablet 100 mcg PO DAILY Qty: 1 RF: 0 Referrals / Follow Up: Dorcas Prince MD [Primary Care Provider] - See Referral Note (3-5 days) Disposition Disposition (needs filled in before D/C Order can be placed): Home, Self Care Documented by User: Dr. Greg Olmos MD 01/10/22 12:43 Providers Date of Admission: 01/08/22 Reason For Visit: GASTROENTERITIS WITH ARF Medications at Discharge Home Medications magnesium oxide 800 mg PO BID 09/08/15 acyclovir 400 mg PO BID 07/27/16 ergocalciferol (vitamin D2) 50,000 unit PO FR 07/27/16 estradiol 1 dose VAGINAL DAILY 07/26/17 L.acidoph, paracasei,B. lactis 1 ea PO DAILY 05/06/19 esomeprazole magnesium 40 mg PO DAILY 05/06/19 dmtnorgy-jhq-TT-lycopen-lutein 1 ea PO DAILY 02/10/20 meclizine 25 mg tablet 25 mg PO TID 02/19/20 levothyroxine 100 mcg tablet 100 mcg PO DAILY #1 tab 04/11/20 metoprolol tartrate 25 mg PO DAILY 01/08/22 Hospital Course Summary of Care Provided Hospital Course: This patient was seen in conjunction with GAMBLING SUPERVISOR, Nidia. I have independently interviewed and examined the patient and reviewed pertinent history, examination findings, laboratory and plan of management. I have reviewed the note and agree with the documented findings with the few additional points. In brief, patient is 71-year-old female admitted with nausea, vomiting and increased ileostomy liquid stool output for more than 1 day resulting into PEPE to CKD. She did not urinate since 8 AM on 01/07. Having nausea and dry heaving. 1. Acute viral gastroenteritis from norovirus and rotavirus: Enteric panel positive for norovirus and rotavirus. Fecal WBC lactoferrin positive. C. difficile PCR negative, no toxigenic C. difficile detected. No antibiotic indicated. Aggressive volume resuscitation to have urine output about 1 L/day. Avoid Imodium/antidiarrheal agent for the clearance of virus. On cholestyramine. 01/09: Patient is still has high ileostomy bag output about 3 L. Oral diet advanced. Imodium or other antidiarrheal agent is contraindicated in view of positive rotavirus and norovirus. Patient having swelling of upper and lower extremities. We will decrease IV fluid. 01/10: The course of norovirus and rotavirus discussed with the patient. Advised that it will run its course and advance the diet to solid. She was also having oatmeal yesterday which might result in increased ileostomy output. Patient requesting discharge. Advised to follow-up PCP on Wednesday. 2. Acute kidney injury on CKD secondary to volume loss/prerenal: Hyperkalemia. Change IV fluid to Ringer lactate. Normal anion gap metabolic acidosis, ch loride 109, bicarb 19. BUN/creatinine 1.49, improving. 01/09: Creatinine improved from 2.17-1.14. 01/10: Patient creatinine on baseline. Advised BMP on next Wednesday or Wednesday. 3. 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 On sirolimus and acyclovir continued. 01/10: Patient is not on sirolimus confirmed by pharmacist from patient's relative and pharmacy. His gis coordinator has stopped sirolimus in April 2021. She is not on any other immunosuppressant as replacement. Following Dr. Gresham. Other comorbidities as mentioned above including GERD, hypothyroidism, paroxysmal A. fib: Discharge medication reconciliation done. Discharge follow-up instructions completed. Discharge process discussed with the patient and all questions were answered to patient's satisfaction. Total time spent, exact 35 minutes on discharge meds reconciliation, examinati on, coordination of care with nurses and ancillary staff, review of imaging and blood test and discussion with the patient on follow-up instructions. I have discussed my assessment with GAMBLING SUPERVISORNidia and orders have been reviewed. Physical Exam Narrative Seen and examined. Patient is still having abdominal cramps and about 3 L of ileostomy output. IV fluid resuscitation done General: Alert, Oriented x3, Cooperative HEENT: Atraumatic, PERRLA, EOMI, Normocephalic Oral: Oral mucosa moist. No Gingival or Mucosal Lesions/ Ulcerations Neck: Supple, No JVD, Negative Carotid Bruits Lungs: Air entry diminished in bilateral lung bases. No crepitation/rhonchi Cardiovascular: Regular rate, Regular Rhythm, Normal S1, Normal S2, No murmurs Abdomen: Ileostomy bag output 3 L in last 24 hours. Soft, mild tenderness around ileostomy. Liquid stool. Bowel Sounds Present. Old healed surgical scar. Weakness of rectus abdominal : No renal angle tenderness. No suprapubic tenderness. Extremities: No edema, Capillary Refill Less than 3 Seconds Skin: No rashes, No breakdown Musculoskeletal: No Tenderness to Palpation of Joints or Extremities. Muscle strength 4/5 at major joints of lower extremities. Neurological: Cranial nerves II-XII grossly intact, DTR 2+/4 and Symmetrical, Neuro grossly intact Psych/Mental Status: Flat affect. ABG / Lab / Microbiology Data Result Diagrams: 01/10/22 05:30 01/10/22 05:30 Discharge Plan Admission Admit Date/Time: 01/08/22 01:29 Primary Reason for Your Visit: Acute kidney injury, norovirus Attending Provider: Greg Olmos Primary Care Provider: Dorcas Prince Instructions Patient Instructions: Rotavirus Infection in Children, Understanding Norovirus, Rotavirus (Stool) Additional Instructions / Restrictions: You will need repeat BMP on Wednesday or Wednesday by PCP to assess kidney function. Discharge Orders/Prescriptions Prescriptions: Continued meclizine 25 mg tablet 25 mg PO TID RF: 0 magnesium oxide 400 MG tablet 800 mg PO BID RF: 0 acyclovir 400 MG tablet 400 mg PO BID RF: 0 ergocalciferol (vitamin D2) 50,000 UNIT capsule 50,000 unit PO FR RF: 0 estradiol 42.5 GM cream 1 dose vaginal DAILY RF: 0 esomeprazole magnesium 40 MG capsule,delayed release(DR/EC) 40 mg PO DAILY RF: 0 L.acidoph, paracasei,B. lactis 1 EACH capsule 1 ea PO DAILY RF: 0 awrneipo-dxt-PR-lycopen-lutein 1 EACH tablet 1 ea PO DAILY RF: 0 metoprolol tartrate 25 mg tablet 25 mg PO DAILY RF: 0 levothyroxine 100 mcg tablet 100 mcg PO DAILY Qty: 1 RF: 0 Referrals / Follow Up: Dorcas Prince MD [Primary Care Provider] - See Referral Note (3-5 days) Disposition Disposition (needs filled in before D/C Order can be placed): Home, Self Care Charges/Coding Visit Charges Inpatient E&M: 66253 Disch Hosp
== END 2022-01-10 13:52 | disposition home or self-care (01) | DRG 392 ==
LOC: ED 01-08 01:31 → MS3 01-08 01:44
PROVIDERS: Nurse Practitioner Family; Admitting Provider Family Medicine; Emergency Provider Emergency Medicine; PCP Internal Medicine; Visit Provider Internal Medicine
DX: A08.0 Rotaviral enteritis (principal); C92.00 Acute myeloblastic leukemia, not having achieved remission; D89.813 Graft-versus-host disease, unspecified; N17.9 Acute kidney failure, unspecified; E87.2 Acidosis; Z94.81 Bone marrow transplant status; I48.0 Paroxysmal atrial fibrillation; E86.0 Dehydration; B34.8 Other viral infections of unspecified site; Z93.2 Ileostomy status; A08.11 Acute gastroenteropathy due to Norwalk agent; E03.9 Hypothyroidism, unspecified; K21.9 Gastro-esophageal reflux disease without esophagitis; I12.9 Hypertensive chronic kidney disease with stage 1 through stage 4 chronic kidney disease, or unspecified chronic kidney disease; E87.5 Hyperkalemia; N18.2 Chronic kidney disease, stage 2 (mild); Z23 Encounter for immunization; Z79.01 Long term (current) use of anticoagulants
CPT/HCPCS: 36415; 80048; 80053; 80076; 81001; 83630; 85025; 87177; 87209; 87493; 87506; 90471; 93005; 99285; J7030; J7120; A4216; J2405

== ENCOUNTER 2022-01-11 20:38 | Observation (INO) | payer MEDICARE, SELFPAY ==
[2022-01-11 20:39] VITALS: BP 125/85; PULSE 83; RESP 22; TEMP 36.3; O2SAT 94; BMI 31.8
[2022-01-11 20:45] VITALS: BP 125/85; PULSE 77; RESP 14; TEMP 36.3; O2SAT 93
--- NOTE | 2022-01-11 21:05 | EDS_ITS ---
HPI HPI - GI History of Present Illness Chief Complaint: Nausea/Vomiting Informant: patient, spouse/S.O. and EMS Abdominal Pain/Flank Pain Onset: Days (4-5) Context: Gradual Onset Timing: Intermittent Quality: Aching Location: - (Right abdomen) Current Severity: Mild Maximum Severity: Mild Worsened by: Food Relieved by: Nothing Nausea/Vomiting/Emesis GI Symptom: Positive for Nausea; Negative for Vomiting Onset: Today Diarrhea/Melena/Hematochezia GI Symptom: Positive for Diarrhea Onset: Days (4-5) Stool Quality: Positive for Watery (green) Severity: Severe Associated Symptoms Associated Symptoms: Positive for - (Decreased urine output today) Narrative Narrative: Patient recently admitted for gastroenteritis and acute kidney injury, she tested positive for both rotavirus and norovirus. She had up to 3 L of ileostomy output per day. She was discharged yesterday after doing better, when she got home she felt worse, weaker. Still weaker today, unable to get up and around, so came by EMS. Trying to drink some fluids but very nauseated all day. Diarrhea persists but the ileostomy output is lessened. Orthostatic and near syncopal when she stands up to try to walk. Decreased urine output, she really has not urinated today. [facility] Medical History Abnormal EKG AML (acute myeloid leukemia) in remission Atrial fibrillation with RVR Dysmetabolic syndrome Elevated liver enzymes Essential hypertension Gastroenteritis Uabzv-ernsnq-dgcc disease History of DVT (deep vein thrombosis) (~10/2015) History of syncope Hypokalemia Hypomagnesemia Hypothyroidism Ileostomy in place Iron overload due to repeated red blood cell transfusions Parastomal hernia Patient in clinical research study (08/20/15) Pre-op evaluation Pyelonephritis, acute Right bundle branch block Small bowel obstruction Thrombocytopenia UTI (urinary tract infection) Home Medications magnesium oxide 800 mg PO BID 09/08/15 [History Last Taken 01/06/22] acyclovir 400 mg PO BID 07/27/16 [History Last Taken 01/06/22] ergocalciferol (vitamin D2) 50,000 unit PO FR 07/27/16 [History Last Taken 01/02/22] estradiol 1 dose VAGINAL DAILY PRN 07/26/17 [History Last Taken 02/10/20] L.acidoph, paracasei,B. lactis 1 ea PO DAILY 05/06/19 [History Last Taken 01/06/22] esomeprazole magnesium 40 mg PO DAILY 05/06/19 [History Last Taken 01/06/22] ayjclxpb-zrc-EM-lycopen-lutein 1 ea PO DAILY 02/10/20 [History Last Taken 01/06/22] meclizine 25 mg tablet 25 mg PO TID 02/19/20 [History Last Taken 01/06/22] levothyroxine 100 mcg tablet 100 mcg PO DAILY #1 tab 04/11/20 [Rx Last Taken 01/06/22] metoprolol tartrate 25 mg PO DAILY 01/08/22 [History Last Taken 01/06/22] Allergy/AdvReac Type Severity Reaction Status Date / Time Gadolinium-MRI Contrast Allergy Hives Verified 01/11/22 20:55 Medium [CONTRAST] Iodinated Contrast Media Allergy Hives Verified 01/11/22 20:55 [Iodinated Contrast Media - IV Dye] iodine Allergy Hives Verified 01/11/22 20:55 teriparatide [From Forteo] AdvReac Unknown Unknown Verified 01/11/22 20:55 Surgical History Bone marrow transplant status History of total colectomy Social History Smoking Status: Never smoker ROS ROS ED Constitutional Constitutional ED: Reports fatigue and weakness; Denies chills or fever(s) Eyes Eyes: Denies change in vision or diplopia ENT ENT ED: Denies rhinorrhea or sore throat Cardiovascular Cardiovascular: Denies chest pain or palpitations Respiratory/Chest Respiratory/Chest: Denies cough or dyspnea Gastrointestinal Gastrointestinal: Reports abdominal pain, diarrhea and nausea; Denies vomiting Genitourinary Genitourinary ED: Denies dysuria or hematuria Musculoskeletal Musculoskeletal: Denies back pain or neck pain Integumentary Denies abscess or rash Neurologic Neurologic: Denies headache(s), paresthesias or weakness Psychiatric Psychiatric: Denies anxiety or suicidal thoughts EXAM Physical Exam Const Vital Signs: 01/11/22 20:39 01/11/22 20:45 Temperature 97.4 F L 97.4 F L Temperature Source Oral Oral Pulse Rate 83 77 Respiratory Rate 22 H 14 Blood Pressure 125/85 H 125/85 H Blood Pressure Mean 98 98 Pulse Ox 94 93 Oxygen Delivery Method Room Air Room Air Positive well nourished and well developed Constitutional Narrative: Appears tired, malaised General Appearance ED: well developed and NAD HEENT Reports moist mucous membranes normocephalic and atraumatic Eyes PERRL and EOMs intact bilaterally Neck full ROM and supple Resp normal respiratory effort and clear to auscultation bilaterally Effort and Inspection: able to speak in complete sentences Cardio regular rate, regular rhythm and no murmurs Rate: Negative for tachycardic GI non-tender and non-distended GI Narrative: Liquid green diarrhea in ileostomy bag Auscultation: hyperactive bowel sounds Palpation: soft Back/Spine no CVA tenderness General Back: other FROM Extremity normal to inspection General Extremety ED: Negative for edema, pulses abnormal or tenderness General Extremity: Negative for edema or pulses abnormal Neuro oriented x3, CN's II-XII intact bilaterally and no sensory deficits noted Sensorium / Orientation: awake and alert Motor Exam: general weakness Skin no rashes or lesions noted and no wounds MDM MDM MDM Narrative Medical decision making narrative: Hemoglobin is elevated likely due to dehydration, she again has PEPE worse than when she was originally here and a dmitted a couple days ago. She and agree she is not taking in enough fluids to keep up with the diarrhea. She states that she has felt so weak this past day that she was having trouble getting around, orthostatic with standing, and was having trouble caring for her and forcing fluids. IV fluids given here along with Tylenol, Zofran, and will admit back to the hospital. Lab Data Attestation: I reviewed the patient's lab results. Labs: Laboratory Results - last 24 hr 01/11/22 01/11/22 21:15 21:15 WBC 8.6 RBC 5.59 H Hgb 19.5 H* Hct 58.0 H MCV 103.8 H MCH 34.9 H MCHC 33.6 RDW Std Deviation 57.1 H RDW Coeff of Saloni 14.7 H Plt Count 231 MPV 10.4 Immature Gran % (Auto) 0.200 Neut % (Auto) 56.6 Lymph % (Auto) 35.0 [place] % (Auto) 7.7 Eos % (Auto) 0.1 Baso % (Auto) 0.4 Absolute Neuts (auto) 4.8 Absolute Lymphs (auto) 3.00 Nucleated RBC % 0 Sodium 131 L Potassium 4.5 Chloride 109 H Carbon Dioxide 12.0 L Anion Gap 10 BUN 52 H Creatinine 2.64 H Estim Creat Clear Calc 21.63 Est GFR (MDRD) Af Amer 23 L Est GFR (MDRD) Non-Af 19 L BUN/Creatinine Ratio 19.7 Glucose 123 H Calcium 9.7 Discharge Plan Dx/Rx/DC Orders Clinical Impression: Dehydration, Acute kidney injury, Rotaviral gastroenteritis, Orthostasis Disposition Disposition: Acute Care [facility]
[2022-01-11] MEDS: Ondansetron 4 MG/2 ML Vial IV (21:16)
[2022-01-11] MEDS: 0.9% Normal Saline 1,000 ML 999 ML IV (21:16)
[2022-01-11 21:22] LABS: Absolute Neutrophil Count 4.8 X10^3/uL (2.0-7.7); Basophil# 0.03 X10^3/uL; Basophil% 0.4 % (0-1); Eosinophil# 0.01 X10^3/uL; Eosinophils% 0.1 % (0-5); Mean Corp Hgb Conc 33.6 g/dL (32-36); Mean Corpuscular Hgb 34.9 pg (27.0-32.0); Mean Corpuscular Volume 103.8 fL (81-99); Mean Platelet Vol. 10.4 fl (6.2-12.0); Monocyte# 0.66 X10^3/uL; Monocyte% 7.7 % (0-10); NRBC Flagged by Analyzer 0 % (0-5); Neutrophil # 4.84 X10^3/uL (2.7-7.7); Neutrophil % 56.6 % (47-70); POSITIVE MORPHOLOGY YES; Platelet Count 231 K/mm3 (150-450); RBC Distribution Width CV 14.7 % (11.6-14.6); RBC Distribution Width SD 57.1 fl (35.1-43.9); Red Blood Count 5.59 M/mm3 (4.2-5.4); White Blood Count 8.6 K/mm3 (4.4-11.0)
[2022-01-11 21:37] LABS: Differential Indicated SCAN CRITERIA MET; Hemoglobin 19.5 g/dL (12.0-15.0)
[2022-01-11 21:41] LABS: Anion Gap 10 (5-15); BUN 52 mg/dL (7-18); BUN/Creat Ratio 19.7 RATIO (10-20); Calcium,Total 9.7 mg/dL (8.5-10.1); Chloride 109 mmol/L (98-107); Creatinine, Serum 2.64 mg/dL (0.55-1.02); EST Glomerular Filtration Rate 19 mL/min (>60); Est Glom Filt Rate - Afr Amer 23 mL/min (>60); Estimated Creatinine Clearance 21.63 ml/min; Glucose 123 mg/dL (74-106); Potassium 4.5 mmol/L (3.5-5.1); Sodium Level 131 mmol/L (136-145)
[2022-01-11 22:15] VITALS: BP 124/74; PULSE 80; RESP 17; O2SAT 97
[2022-01-11] MEDS: Acetaminophen 500 MG Tablet 1000 MG PO (22:21)
[2022-01-11 22:25] LABS: Differential Comment SCANNED
--- NOTE | 2022-01-11 22:28 | PCM.HP.STD ---
HPI - General General Date of Admission: 01/11/22 HPI Narrative CONG SMITH, is a 71 F who presents to the hospital with worsening dehydration. She was recently admitted to the hospital with gastroenteritis secondary to norovirus as well as rotavirus. She was started on IV fluids and was feeling better yesterday however she was unable to keep up with her p.o. intake and her ostomy output is still fairly significant and now has worse renal failure than she did on admission the first time around. [facility] Medical History Abnormal EKG AML (acute myeloid leukemia) in remission Atrial fibrillation with RVR Dysmetabolic syndrome Elevated liver enzymes Essential hypertension Gastroenteritis Zenat-btxhyq-zdkh disease History of DVT (deep vein thrombosis) (~10/2015) History of syncope Hypokalemia Hypomagnesemia Hypothyroidism Ileostomy in place Iron overload due to repeated red blood cell transfusions Parastomal hernia Patient in clinical research study (08/20/15) Pre-op evaluation Pyelonephritis, acute Right bundle branch block Small bowel obstruction Thrombocytopenia UTI (urinary tract infection) Home Medications magnesium oxide 800 mg PO BID 09/08/15 [History Last Taken 01/06/22] acyclovir 400 mg PO BID 07/27/16 [History Last Taken 01/06/22] ergocalciferol (vitamin D2) 50,000 unit PO FR 07/27/16 [History Last Taken 01/02/22] estradiol 1 dose VAGINAL DAILY PRN 07/26/17 [History Last Taken 02/10/20] L.acidoph, paracasei,B. lactis 1 ea PO DAILY 05/06/19 [History Last Taken 01/06/22] esomeprazole magnesium 40 mg PO DAILY 05/06/19 [History Last Taken 01/06/22] mhktnize-njn-IK-lycopen-lutein 1 ea PO DAILY 02/10/20 [History Last Taken 01/06/22] meclizine 25 mg tablet 25 mg PO TID 02/19/20 [History Last Taken 01/06/22] levothyroxine 100 mcg tablet 100 mcg PO DAILY #1 tab 04/11/20 [Rx Last Taken 01/06/22] metoprolol tartrate 25 mg PO DAILY 01/08/22 [History Last Taken 01/06/22] Allergy/AdvReac Type Severity Reaction Status Date / Time Gadolinium-MRI Contrast Allergy Hives Verified 01/11/22 20:55 Medium [CONTRAST] Iodinated Contrast Media Allergy Hives Verified 01/11/22 20:55 [Iodinated Contrast Media - IV Dye] iodine Allergy Hives Verified 01/11/22 20:55 teriparatide [From Forteo] AdvReac Unknown Unknown Verified 01/11/22 20:55 Surgical History Bone marrow transplant status History of total colectomy Social History Smoking Status: Never smoker ROS Constitutional Constitutional: Denies chills, fatigue, fever(s) or malaise Eyes Eyes: Denies blurry vision ENT HEENT: Denies headache(s) or nasal discharge Cardiovascular Cardiovascular: Denies chest pain, dyspnea on exertion or syncope Respiratory/Chest Respiratory/Chest: Denies cough, shortness of breath at rest or shortness of breath with exertion Gastrointestinal Gastrointestinal: Reports diarrhea and nausea; Denies constipation or vomiting Genitourinary Genitourinary: Denies dysuria Neurologic Neurologic: Denies focal weakness, numbness or tremor(s) Psychiatric Psychiatric: Denies anxiety or depression Vital Signs Vital Signs Vital Signs: 01/11/22 20:39 01/11/22 20:45 Temperature 97.4 F L 97.4 F L Temperature Source Oral Oral Pulse Rate 83 77 Respiratory Rate 22 H 14 Blood Pressure 125/85 H 125/85 H Blood Pressure Mean 98 98 Pulse Ox 94 93 Oxygen Delivery Method Room Air Room Air Weight Weight: 152 lb 5.431 oz Body Mass Index (BMI) 31.8 Physical Exam Const alert and oriented x3 General Appearance: cooperative HEENT normocephalic Mouth: dry mucous membranes Eyes PERRL, EOMs intact bilaterally and conjunctivae normal Neck supple and no JVD Resp normal respiratory effort, no retractions, no use of accessory muscles and clear to auscultation bilaterally Auscultation: Negative for crackles, rales, rhonchi or wheezes Cardio regular rate, regular rhythm, S1 normal heart sound, S2 normal heart sound and no murmurs GI soft to palpation, non-tender and non-distended; Negative for hepatosplenomegaly GI Narrative: Significant output in her ileostomy Extremity no clubbing, cyanosis or edema Skin no rashes or lesions noted Neuro no focal motor deficits and no sensory deficits noted Psych affect normal Appearance: appropriate Results Lab / Micro Data Result Diagrams: 01/11/22 21:15 01/11/22 21:15 Labs: Laboratory Results - last 24 hr 01/11/22 21:15: WBC 8.6, RBC 5.59 H, Hgb 19.5 H*, Hct 58.0 H, MCV 103.8 H, MCH 34.9 H, MCHC 33.6, RDW Std Deviation 57.1 H, RDW Coeff of Saloni 14.7 H, Plt Count 231, MPV 10.4, Immature Gran % (Auto) 0.200, Neut % (Auto) 56.6, Lymph % (Auto) 35.0, [place] % (Auto) 7.7, Eos % (Auto) 0.1, Baso % (Auto) 0.4, Absolute Neuts (auto) 4.8, Absolute Lymphs (auto) 3.00, Nucleated RBC % 0, Differential Comment SCANNED 01/11/22 21:15: Sodium 131 L, Potassium 4.5, Chloride 109 H, Carbon Dioxide 12.0 L, Anion Gap 10, BUN 52 H, Creatinine 2.64 H, Estim Creat Clear Calc 21.63, Est GFR (MDRD) Af Amer 23 L, Est GFR (MDRD) Non-Af 19 L, BUN/Creatinine Ratio 19.7, Glucose 123 H, Calcium 9.7 Assessment & Plan Assessment/Plan (1) Rotaviral gastroenteritis: (2) Acute kidney injury: (3) Dehydration: PLAN: 1. Acute renal failure secondary to norovirus and rotavirus gastroenteritis ? She was recently discharged but unable to keep up with her fluid requirements now her renal function is 2.64 when her baseline is around 1 and her hemoglobin is now 19.5 ? Continue with aggressive IV fluid hydration ? Continue with Zofran if necessary 2. HTN/HLD/A. fib ? Continue with her home blood pressure medication ? Blood pressures currently stable ? She does not appear to be on any anticoagulation at this time 3. Hypothyroidism ? Stable ? Continue with Synthroid 4. GERD ? Stable ? Continue with PPI 5. History of AML status post bone marrow transplant ? Continue with sirolimus as well as acyclovir for shingles prevention ? This led to a sqzza-finjis-pzbs disease issue which led to a perforated viscus in her ileostomy and 2015 DVT: Heparin Charges/Coding Visit Charges Inpatient E&M: 46266 Init Hosp L3
[2022-01-11 22:43] VITALS: BP 128/76; PULSE 81; RESP 16; TEMP 36.6; O2SAT 97
[2022-01-11 23:04] VITALS: BMI 31.3
[2022-01-11 23:44] VITALS: BP 93/51; PULSE 82; RESP 16; TEMP 36.7; O2SAT 94
[2022-01-11] MEDS: 0.9% Saline Lock 10 ML Syringe IV (23:46)
[2022-01-11] MEDS: 0.9% Normal Saline 1,000 ML 150 ML IV (23:51)
[2022-01-12 04:21] VITALS: BP 107/69; PULSE 63; RESP 16; TEMP 36.4; O2SAT 96
[2022-01-12] MEDS: Acetaminophen 325 MG Tablet 650 MG PO ×3 (04:24→16:28)
[2022-01-12] MEDS: 0.9% Normal Saline 1,000 ML 150 ML IV (05:58)
[2022-01-12] MEDS: Levothyroxine 100 MCG Tablet PO (05:59)
[2022-01-12] MEDS: Meclizine HCl 25 MG Tablet PO ×3 (05:59→21:24)
[2022-01-12] MEDS: Heparin Injection (Vial) 5,000 UNIT/ML VIAL 5000 UNIT SC ×3 (06:00→21:23)
[2022-01-12 06:26] LABS: Absolute Lymphocyte Count 5.97 X10^3/uL (0.83-4.51); Absolute Neutrophil Count 5.4 X10^3/uL (2.0-7.7); Basophil# 0.03 X10^3/uL; Basophil% 0.2 % (0-1); Eosinophil# 0.01 X10^3/uL; Eosinophils% 0.1 % (0-5); Hemoglobin 16.9 g/dL (12.0-15.0); Lymphocyte # 5.97 X10^3/ul (0.83-4.51); Lymphocyte % 47.6 % (19-41); Mean Corp Hgb Conc 34.5 g/dL (32-36); Mean Corpuscular Volume 104.3 fL (81-99); Mean Platelet Vol. 10.4 fl (6.2-12.0); Monocyte# 1.02 X10^3/uL; Monocyte% 8.1 % (0-10); NRBC Flagged by Analyzer 0 % (0-5); Neutrophil # 5.41 X10^3/uL (2.7-7.7); Neutrophil % 43.3 % (47-70); POSITIVE DIFFERENTIAL YES; Platelet Count 203 K/mm3 (150-450); RBC Distribution Width CV 14.7 % (11.6-14.6); White Blood Count 12.5 K/mm3 (4.4-11.0)
[2022-01-12 06:38] LABS: Differential Indicated SCAN CRITERIA MET
[2022-01-12 06:48] LABS: Anion Gap 10 (5-15); BUN 49 mg/dL (7-18); BUN/Creat Ratio 30.4 RATIO (10-20); Calcium,Total 8.3 mg/dL (8.5-10.1); Chloride 115 mmol/L (98-107); Creatinine, Serum 1.61 mg/dL (0.55-1.02); EST Glomerular Filtration Rate 34 mL/min (>60); Est Glom Filt Rate - Afr Amer 41 mL/min (>60); Estimated Creatinine Clearance 35.01 ml/min; Glucose 88 mg/dL (74-106); Potassium 3.5 mmol/L (3.5-5.1); Sodium Level 136 mmol/L (136-145)
[2022-01-12 07:01] LABS: Differential Comment SCANNED
[2022-01-12 08:26] VITALS: BP 121/65; PULSE 87; RESP 14; TEMP 36.3; O2SAT 94
[2022-01-12] MEDS: Acyclovir 200 MG Capsule 400 MG PO ×2 (08:39→21:24)
[2022-01-12] MEDS: 0.9% Saline Lock 10 ML Syringe IV ×2 (08:39→08:56)
[2022-01-12] MEDS: Pantoprazole Sodium 40 MG Tablet PO (08:39)
[2022-01-12 08:47] VITALS: PULSE 87
[2022-01-12] MEDS: Metoprolol Tartrate 25 MG Tablet PO (08:47)
[2022-01-12] MEDS: 0.45% Normal Saline 1,000 ML 100 ML IV (08:47)
[2022-01-12] MEDS: Ondansetron 4 MG/2 ML Vial IV (08:56)
--- NOTE | 2022-01-12 10:24 | PCM.PN.HOSP ---
Subjective Subjective Patient was recently here related to dehydration and PEPE secondary to marked gastroenteritis. Patient has a high output ostomy at baseline as she developed svxxj-mzlwye-wrbw disease with perforated bowel after treatment for acute myeloid leukemia. She states she does have significant high output typically however her output has been markedly higher and the stool was like water. C. difficile was performed and was negative. She was here 01/08 through 01/10 and wanted to go home. But it sounds like her p.o. intake was not great and worsened after discharge and she therefore came back to the emergency department with worsening renal function and continued high output from her ostomy. Her stool studies were positive for rotavirus and norovirus. Objective Data Objective Data Vital Signs: Vital Signs Temp Pulse Resp BP Pulse Ox 97.4 F L 87 14 121/65 H 94 01/12/22 08:26 01/12/22 08:47 01/12/22 08:26 01/12/22 08:26 01/12/22 08:26 Oxygen Delivery Method Room Air Weight: 68.2 kg Body Mass Index (BMI) 31.3 Intake & Output: Intake and Output for Last 24 Hours 01/10/22 01/11/22 01/12/22 23:59 23:59 23:59 Intake Total 1000 / 1000 1342.5 / 1342.5 Output Total 400 / 400 1400 / 1400 Balance 600 / 600 -57.5 / -57.5 Lab / Micro Data Result Diagrams: 01/12/22 06:10 01/12/22 06:10 Labs: Laboratory Results - last 24 hr 01/11/22 21:15: WBC 8.6, RBC 5.59 H, Hgb 19.5 H*, Hct 58.0 H, MCV 103.8 H, MCH 34.9 H, MCHC 33.6, RDW Std Deviation 57.1 H, RDW Coeff of Saloni 14.7 H, Plt Count 231, MPV 10.4, Immature Gran % (Auto) 0.200, Neut % (Auto) 56.6, Lymph % (Auto) 35.0, [place] % (Auto) 7.7, Eos % (Auto) 0.1, Baso % (Auto) 0.4, Absolute Neuts (auto) 4.8, Absolute Lymphs (auto) 3.00, Nucleated RBC % 0, Differential Comment SCANNED, Diff Path Review January01/11/22 21:15: Sodium 131 L, Potassium 4.5, Chloride 109 H, Carbon Dioxide 12.0 L, Anion Gap 10, BUN 52 H, Creatinine 2.64 H, Estim Creat Clear Calc 21.63, Est GFR (MDRD) Af Amer 23 L, Est GFR (MDRD) Non-Af 19 L, BUN/Creatinine Ratio 19.7, Glucose 123 H, Calcium 9.7 01/12/22 06:10: WBC 12.5 H, RBC 4.70, Hgb 16.9 H, Hct 49.0 H, MCV 104.3 H, MCH 36.0 H, MCHC 34.5, RDW Std Deviation 58.0 H, RDW Coeff of Saloni 14.7 H, Plt Count 203, MPV 10.4, Immature Gran % (Auto) 0.700, Neut % (Auto) 43.3 L, Lymph % (Auto) 47.6 H, [place] % (Auto) 8.1, Eos % (Auto) 0.1, Baso % (Auto) 0.2, Absolute Neuts (auto) 5.4, Absolute Lymphs (auto) 5.97 H, Nucleated RBC % 0, Differential Comment SCANNED 01/12/22 06:10: Sodium 136, Potassium 3.5, Chloride 115 H, Carbon Dioxide 11.0 L, Anion Gap 10, BUN 49 H, Creatinine 1.61 H, Estim Creat Clear Calc 35.01, Est GFR (MDRD) Af Amer 41 L, Est GFR (MDRD) Non-Af 34 L, BUN/Creatinine Ratio 30.4 H, Glucose 88, Calcium 8.3 L Physical Exam Const alert, oriented x3 and no apparent distress Constitutional Narrative: Obese, older white female lying in bed, eyes closed with initially limited response however with tactile stimulation responded appropriately and answered all questions following, appears ill but nontoxic at this time, nursing at bedside Exam Limitations: no limitations Nutritional Appearance: obese HEENT head/scalp atraumatic and moist oral mucous membranes HEENT Narrative: Mallampati is 2-3, no thrush Head and Scalp: normocephalic Eyes PERRL, EOMs intact bilaterally and conjunctivae normal Neck no lymphadenopathy, supple and no JVD Neck Narrative: Trachea midline, no thyroid lodgment, neck is short and thick Resp normal respiratory effort, no retractions, no use of accessory muscles and clear to auscultation bilaterally Auscultation: Negative for crackles, rales, rhonchi or wheezes Cardio regular rate, regular rhythm, S1 normal heart sound and S2 normal heart sound GI GI Narrative: Bowel sounds are hyperactive, right upper quadrant ostomy in place with marked watery appearing output and bits of yellow flecks floating in the stool, diffuse mild tenderness, ostomy is pink, no significant distention, soft Extremity no clubbing, cyanosis or edema Peripheral Pulses: Yes pulses 2+ throughout Skin no rashes or lesions noted, no wounds, skin turgor normal, no jaundice, no petechiae and no mottling Neuro oriented x3, CN's II-XII intact bilaterally, moves all extremities and no focal motor deficits Neuro Narrative: Dentalized weakness but no focal deficits Sensorium / Orientation: awake and alert Speech: speech normal Psych Psych Narrative: Affect appears mildly flattened mood seems slightly depressed Assessment & Plan Assessment/Plan (1) Rotaviral gastroenteritis: (2) Gastroenteritis due to norovirus: (3) Orthostasis: (4) Acute kidney injury: (5) Dehydration: (6) Metabolic acidosis: (7) High output ileostomy: PLAN: Acute gastroenteritis secondary to rotavirus/norovirus -Enteric panel positive for both viruses -C. difficile negative -P.o. intake is overall fairly poor -Ostomy output is significantly higher than baseline -Causing significant dehydration with acute kidney injury as well as metabolic acidosis secondary to the massive amounts of stool output she is having -Continue diet orally as able -Continue IV fluids but convert from normal saline to half-normal saline at 100 cc/h -Will need supplemental fluids until she can match p.o. intake with ostomy output -Add Metamucil to hopefully bulk form stool -Continue to monitor ostomy output Orthostatic hypotension -Secondary to acute dehydration -Continue IV fluids until p.o. intake is adequate and match his ostomy output PEPE secondary to dehydration -Serum creatinine was 2.64 on admission and now down to 1.67 -Baseline renal function appears to be between 0.7 and 0.9 -Continue IV fluids -Avoid nephrotoxins Metabolic acidosis -Secondary to profuse watery diarrhea and GI losses of bicarbonate as well as elevated chloride with IV fluid repletion -Add oral sodium bicarb twice daily -We will change IV fluids from normal saline to half-normal saline to decrease chloride -Repeat BMP in a.m. 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
--- NOTE | 2022-01-12 13:24 | CASEMGMT ---
Addendum entered by Rain Hall 01/12/22 14:31: Received tc back from [place] at [facility], they are able to accept pt. Original Note: MP ALEXIS Readmission Note Previous Admission: 01/08/22-01/10/22 Diagnosis: gastroenteritis with ARF DC Disposition: Home Current Admission Current diagnosis: dehydration from gastroenteritis Pt presented to ER from home with increased weakness and feeling worse. Pt had tested positive for norovirus and rotavirus and having 3L of output from ostomy per day. MP ALEXIS in to pt room, pt lying in bed with eyes closed. Reviewed therapy notes and discussed HHC therapy with pt. She states she has had HHC in the past. Patient was provided a list of HHC providers including quality and resource use data and consistent with the patient?s preferred geographic region, medical needs, and insurance network. The patient?s preferred provider is [facility]. Pt denies needing nursing at home. Pt was taking medications as ordered. Pt denies any further homegoing needs. DC PLAN:Home with C PT and OT. Faxed referral to [facility], will await acceptance. Pt screened with [facility] Palliative Care Screening Tool due to readmit, pt did not meet criteria.
[2022-01-12 13:32] LABS: Pathologist Review Reviewed
[2022-01-12 13:42] VITALS: BP 111/65; PULSE 80; RESP 18; TEMP 36.6; O2SAT 95
[2022-01-12 16:27] VITALS: BP 110/54; PULSE 79; RESP 16; TEMP 36.4; O2SAT 97
[2022-01-12] MEDS: Famotidine 20 MG Tablet PO (16:28)
[2022-01-12] MEDS: Ensure Clear 120 ML Liquid PO ×2 (17:25→21:20)
[2022-01-12] MEDS: Loperamide 2 MG Capsule PO (17:25)
[2022-01-12] MEDS: 0.45% Normal Saline 1,000 ML 150 ML IV (17:25)
[2022-01-12] MEDS: Sodium Bicarbonate 650 MG Tablet PO (21:24)
[2022-01-12] MEDS: MELATONIN 3 MG TABLET PO (21:24)
[2022-01-12 21:30] VITALS: BP 107/60; PULSE 78; RESP 14; TEMP 36.1; O2SAT 97
[2022-01-13] MEDS: 0.45% Normal Saline 1,000 ML 150 ML IV ×2 (00:32→06:16)
[2022-01-13] MEDS: Loperamide 2 MG Capsule PO ×4 (02:23→18:01)
[2022-01-13 02:25] VITALS: BP 111/53; PULSE 79; RESP 16; TEMP 36.5; O2SAT 96
[2022-01-13] MEDS: Meclizine HCl 25 MG Tablet PO ×3 (06:00→22:44)
[2022-01-13] MEDS: Heparin Injection (Vial) 5,000 UNIT/ML VIAL 5000 UNIT SC ×3 (06:00→22:45)
[2022-01-13] MEDS: Levothyroxine 100 MCG Tablet PO (06:00)
[2022-01-13 06:31] LABS: Absolute Lymphocyte Count 9.41 X10^3/uL (0.83-4.51); Absolute Neutrophil Count 4.8 X10^3/uL (2.0-7.7); Basophil# 0.07 X10^3/uL; Basophil% 0.4 % (0-1); Eosinophil# 0.03 X10^3/uL; Eosinophils% 0.2 % (0-5); Hematocrit 44.6 % (37-47); Hemoglobin 15.3 g/dL (12.0-15.0); Lymphocyte # 9.41 X10^3/ul (0.83-4.51); Lymphocyte % 58.7 % (19-41); Mean Corp Hgb Conc 34.3 g/dL (32-36); Mean Corpuscular Hgb 35.5 pg (27.0-32.0); Mean Corpuscular Volume 103.5 fL (81-99); Mean Platelet Vol. 10.8 fl (6.2-12.0); Monocyte# 1.23 X10^3/uL; Monocyte% 7.7 % (0-10); NRBC Flagged by Analyzer 0 % (0-5); Neutrophil # 4.83 X10^3/uL (2.7-7.7); Neutrophil % 30.1 % (47-70); POSITIVE DIFFERENTIAL YES; Platelet Count 171 K/mm3 (150-450); RBC Distribution Width CV 14.6 % (11.6-14.6); RBC Distribution Width SD 55.9 fl (35.1-43.9); Red Blood Count 4.31 M/mm3 (4.2-5.4)
[2022-01-13 06:33] LABS: Differential Indicated SCAN CRITERIA MET
[2022-01-13 06:49] LABS: Atypical Lymphocyte RARE %; Differential Comment SCANNED
[2022-01-13 07:14] LABS: Anion Gap 10 (5-15); BUN 33 mg/dL (7-18); BUN/Creat Ratio 26.4 RATIO (10-20); Chloride 115 mmol/L (98-107); Creatinine, Serum 1.25 mg/dL (0.55-1.02); EST Glomerular Filtration Rate 45 mL/min (>60); Est Glom Filt Rate - Afr Amer 54 mL/min (>60); Estimated Creatinine Clearance 43.78 ml/min; Glucose 72 mg/dL (74-106); Magnesium 2.1 mg/dL (1.6-2.6); Phosphorus 2.9 mg/dL (2.5-4.9); Potassium 3.5 mmol/L (3.5-5.1); Sodium Level 134 mmol/L (136-145)
[2022-01-13 09:09] VITALS: BP 114/62; PULSE 75; RESP 16; TEMP 36.5; O2SAT 98
[2022-01-13 09:24] VITALS: PULSE 78
[2022-01-13] MEDS: Metoprolol Tartrate 25 MG Tablet PO (09:24)
[2022-01-13] MEDS: Acyclovir 200 MG Capsule 400 MG PO ×2 (09:24→22:44)
[2022-01-13] MEDS: Sodium Bicarbonate 650 MG Tablet PO ×4 (09:25→22:44)
[2022-01-13] MEDS: Famotidine 20 MG Tablet PO (09:25)
[2022-01-13] MEDS: OMEPRAZOLE 40 MG CAPSULE.DR PO (09:25)
[2022-01-13] MEDS: Ensure Clear 120 ML Liquid PO ×4 (09:28→22:44)
--- NOTE | 2022-01-13 10:25 | CPS ---
Abg results coretexted to Dr. Mock and acknowledged.
[2022-01-13 10:26] LABS: Base Excess -20 mmol/L (-2 to +2); Bicarbonate 7.8 mmol/L (22-26); Blood Gas Specimen Type ART; O2 Delivery Device Room Air; PO2 100 mmHG (75-100); SITE L Radial; SO2 97 % (95-99); Total Carbon Dioxide 8 mmol/L; pCO2 18.9 mmHg (35-45); pH 7.22 (7.35-7.45)
--- NOTE | 2022-01-13 10:58 | PCM.PN.HOSP ---
Subjective Subjective Patient states that the volume of her stool has decreased some with it being a much less watery and more brown appearing however it still appears fairly watery to me upon evaluation. She states her appetite is slowly improving but she is fairly fatigued. Objective Data Objective Data Vital Signs: Vital Signs Temp Pulse Resp BP Pulse Ox 97.7 F L 78 16 114/62 98 01/13/22 09:09 01/13/22 09:24 01/13/22 09:09 01/13/22 09:09 01/13/22 09:09 Oxygen Delivery Method Room Air Weight: 66.224 kg Body Mass Index (BMI) 31.3 Intake & Output: Intake and Output for Last 24 Hours 01/11/22 01/12/22 01/13/22 23:59 23:59 23:59 Intake Total 1000 / 1000 3049.17 / 3169.17 1979 / 1979 Output Total 400 / 400 2700 / 2950 550 / 550 Balance 600 / 600 349.17 / 219.17 1430 / 1430 Lab / Micro Data Result Diagrams: 01/13/22 06:05 01/13/22 06:05 Labs: Laboratory Results - last 24 hr 01/11/22 21:15: Diff Path Review Reviewed 01/13/22 06:05: WBC 16.0 H, RBC 4.31, Hgb 15.3 H, Hct 44.6, MCV 103.5 H, MCH 35.5 H, MCHC 34.3, RDW Std Deviation 55.9 H, RDW Coeff of Saloni 14.6, Plt Count 171, MPV 10.8, Immature Gran % (Auto) 2.900 H, Neut % (Auto) 30.1 L, Lymph % (Auto) 58.7 H, [place] % (Auto) 7.7, Eos % (Auto) 0.2, Baso % (Auto) 0.4, Absolute Neuts (auto) 4.8, Absolute Lymphs (auto) 9.41 H, Nucleated RBC % 0, Differential Comment SCANNED, Atypical Lymphocytes RARE 01/13/22 06:05: Sodium 134 L, Potassium 3.5, Chloride 115 H, Carbon Dioxide 9.0 L*, Anion Gap 10, BUN 33 H, Creatinine 1.25 H, Estim Creat Clear Calc 43.78, Est GFR (MDRD) Af Amer 54 L, Est GFR (MDRD) Non-Af 45 L, BUN/Creatinine Ratio 26.4 H, Glucose 72 L, Calcium 8.0 L, Phosphorus 2.9, Magnesium 2.1 ABG Data ABG results: ABG 01/13/22 10:19 Specimen Type ART Sample Site L Radial pH 7.22 L Bicarbonate Actual 7.8 L Total CO2 8 Base Excess -20 L O2 Saturation 97 ABG pCO2 18.9 L* ABG pO2 100 O2 Delivery Device Room Air Crit Call To/Read Back Yes Physical Exam Const alert, oriented x3 and no apparent distress Constitutional Narrative: Obese, older white female lying in bed, awakens to verbal stimuli, patient appears ill but nontoxic General Appearance: cooperative Exam Limitations: no limitations Nutritional Appearance: obese HEENT normocephalic, head/scalp atraumatic and moist oral mucous membranes Head and Scalp: normocephalic Eyes PERRL, EOMs intact bilaterally and conjunctivae normal Neck no lymphadenopathy, supple and no JVD Neck Narrative: Trachea midline, no thyroid lodgment, neck is short and thick Resp normal respiratory effort, no retractions, no use of accessory muscles and clear to auscultation bilaterally Auscultation: Negative for crackles, rales, rhonchi or wheezes Cardio regular rate, regular rhythm, S1 normal heart sound, S2 normal heart sound and no murmurs GI soft to palpation, non-tender and non-distended; Negative for hepatosplenomegaly GI Narrative: Bowel sounds remain hyperactive, right upper quadrant ostomy in place with more brown stool output, stool still opposed watery but volume appears to have decreased, no significant point tenderness noted, no distention Extremity no clubbing, cyanosis or edema Peripheral Pulses: Yes pulses 2+ throughout Skin no rashes or lesions noted, no wounds, skin turgor normal, no jaundice, no petechiae and no mottling Neuro oriented x3, CN's II-XII intact bilaterally, moves all extremities, no focal motor deficits and no sensory deficits noted Neuro Narrative: Dentalized weakness but no focal deficits Sensorium / Orientation: awake and alert Speech: speech normal Psych affect normal Psych Narrative: Mood and affect seem improved today, more interaction voluntarily Appearance: appropriate Assessment & Plan Assessment/Plan (1) Rotaviral gastroenteritis: (2) Gastroenteritis due to norovirus: (3) Orthostasis: (4) Acute kidney injury: (5) Dehydration: (6) Metabolic acidosis: (7) High output ileostomy: PLAN: Acute gastroenteritis secondary to rotavirus/norovirus -Enteric panel positive for both viruses -C. difficile negative -P.o. intake is overall fairly poor but seems to be slowly improving -Ostomy output is significantly higher than baseline but this is decreasing as well -2400 cc in last 24 hours -Only 550 out since midnight -Causing significant dehydration with acute kidney injury as well as metabolic acidosis secondary to the massive amounts of stool output she is having -Continue diet orally as able -We will continue IV fluids -Continue Metamucil to hopefully bulk form stool -We also have scheduled loperamide every 6 hours for 24 hours to slow down output and then we reevaluate at that time -Continue to monitor ostomy output Orthostatic hypotension -Secondary to acute dehydration -Continue IV fluids until p.o. intake is adequate and match his ostomy output PEPE secondary to dehydration -Serum creatinine was 2.64 on admission and now down to 1.25 -Baseline renal function appears to be between 0.7 and 0.9 -Continue IV fluids but switch to sodium bicarb -Avoid nephrotoxins Metabolic acidosis -Secondary to profuse watery diarrhea and GI losses of bicarbonate as well as elevated chloride with IV fluid repletion -Increase oral sodium bicarb to 4 times daily -We will start bicarb drip as ABG was performed and shows pH of 7.22/bicarb 7.8/PCO2 of 18.9 -Some compensation however given acidosis will need increased bicarb and therefore bicarb drip being initiated -Start serum bicarb drip with 150 mill equivalents and D5W at 150 cc/h -Repeat BMP at 1600 to reevaluate serum bicarb -Repeat BMP in a.m. 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
[2022-01-13 15:00] VITALS: BP 116/76; PULSE 76; RESP 16; TEMP 36.4; O2SAT 96
[2022-01-13 16:56] LABS: Anion Gap 8 (5-15); BUN 28 mg/dL (7-18); BUN/Creat Ratio 20.9 RATIO (10-20); Calcium,Total 7.4 mg/dL (8.5-10.1); Chloride 112 mmol/L (98-107); Creatinine, Serum 1.34 mg/dL (0.55-1.02); EST Glomerular Filtration Rate 42 mL/min (>60); Est Glom Filt Rate - Afr Amer 50 mL/min (>60); Estimated Creatinine Clearance 40.84 ml/min; Glucose 103 mg/dL (74-106); Potassium 2.9 mmol/L (3.5-5.1); Sodium Level 136 mmol/L (136-145)
[2022-01-13] MEDS: Potassium Chloride Oral Tablet 20 MEQ 60 MEQ PO (18:01)
[2022-01-13] MEDS: MELATONIN 3 MG TABLET PO (22:44)
[2022-01-13] MEDS: Psyllium 1 PACKET PO (22:45)
[2022-01-13 22:46] VITALS: BP 93/55; PULSE 77; RESP 16; TEMP 36.6; O2SAT 97
[2022-01-14] MEDS: Heparin Injection (Vial) 5,000 UNIT/ML VIAL 5000 UNIT SC ×3 (06:17→22:29)
[2022-01-14] MEDS: Levothyroxine 100 MCG Tablet PO (06:17)
[2022-01-14] MEDS: Meclizine HCl 25 MG Tablet PO ×3 (06:17→22:28)
[2022-01-14 06:43] LABS: Absolute Lymphocyte Count 6.91 X10^3/uL (0.83-4.51); Absolute Neutrophil Count 2.5 X10^3/uL (2.0-7.7); Basophil# 0.04 X10^3/uL; Basophil% 0.4 % (0-1); Eosinophil# 0.11 X10^3/uL; Hematocrit 34.8 % (37-47); Hemoglobin 12.7 g/dL (12.0-15.0); Lymphocyte # 6.91 X10^3/ul (0.83-4.51); Lymphocyte % 65.3 % (19-41); Mean Corp Hgb Conc 36.5 g/dL (32-36); Mean Corpuscular Hgb 35.5 pg (27.0-32.0); Mean Corpuscular Volume 97.2 fL (81-99); Mean Platelet Vol. 10.9 fl (6.2-12.0); Monocyte# 0.95 X10^3/uL; NRBC Flagged by Analyzer 0 % (0-5); Neutrophil # 2.52 X10^3/uL (2.7-7.7); Neutrophil % 23.7 % (47-70); POSITIVE DIFFERENTIAL YES; Platelet Count 167 K/mm3 (150-450); RBC Distribution Width CV 13.6 % (11.6-14.6); RBC Distribution Width SD 48.9 fl (35.1-43.9); Red Blood Count 3.58 M/mm3 (4.2-5.4); White Blood Count 10.6 K/mm3 (4.4-11.0)
[2022-01-14 06:47] LABS: Differential Indicated SCAN CRITERIA MET
[2022-01-14 07:02] LABS: Differential Comment SCANNED; Reactive Lymphocyte 1+
[2022-01-14 07:13] LABS: Anion Gap 5 (5-15); BUN 20 mg/dL (7-18); BUN/Creat Ratio 20.7 RATIO (10-20); Calcium,Total 7.3 mg/dL (8.5-10.1); Chloride 108 mmol/L (98-107); Creatinine, Serum 0.97 mg/dL (0.55-1.02); EST Glomerular Filtration Rate 60 mL/min (>60); Est Glom Filt Rate - Afr Amer 73 mL/min (>60); Glucose 127 mg/dL (74-106); Magnesium 1.7 mg/dL (1.6-2.6); Phosphorus 0.8 mg/dL (2.5-4.9); Potassium 2.8 mmol/L (3.5-5.1); Sodium Level 140 mmol/L (136-145)
[2022-01-14 08:58] VITALS: BP 108/51; PULSE 67; RESP 16; TEMP 36.7; O2SAT 95
[2022-01-14 09:08] VITALS: BP 108/51; PULSE 67
[2022-01-14] MEDS: Ensure Clear 120 ML Liquid PO ×3 (09:08→22:27)
[2022-01-14] MEDS: OMEPRAZOLE 40 MG CAPSULE.DR PO (09:08)
[2022-01-14] MEDS: Acyclovir 200 MG Capsule 400 MG PO ×2 (09:08→22:28)
[2022-01-14] MEDS: Metoprolol Tartrate 25 MG Tablet PO (09:08)
[2022-01-14] MEDS: Sodium Bicarbonate 650 MG Tablet PO ×4 (09:08→22:28)
[2022-01-14] MEDS: Famotidine 20 MG Tablet PO (09:08)
--- NOTE | 2022-01-14 12:50 | PCM.PN.HOSP ---
Subjective Subjective Ostomy output has significantly decreased. Patient states this is really the first day she is felt like a human since she has been ill. P.o. intake is improving. Patient asks if her diet can be advanced to a regular diet. Objective Data Objective Data Vital Signs: Vital Signs Temp Pulse Resp BP Pulse Ox 98.1 F 67 16 108/51 L 95 01/14/22 08:58 01/14/22 09:08 01/14/22 08:58 01/14/22 09:08 01/14/22 08:58 Oxygen Delivery Method Room Air Weight: 69.6 kg Body Mass Index (BMI) 31.3 Intake & Output: Intake and Output for Last 24 Hours 01/12/22 01/13/22 01/14/22 23:59 23:59 23:59 Intake Total 3049.17 / 3169.17 4135 / 4495 2297.5 / 2297.5 Output Total 2700 / 2950 875 / 1075 400 / 400 Balance 349.17 / 219.17 3260 / 3420 1897.5 / 1897.5 Lab / Micro Data Result Diagrams: 01/14/22 06:30 01/14/22 06:30 Labs: Laboratory Results - last 24 hr 01/13/22 16:15: Sodium 136, Potassium 2.9 L, Chloride 112 H, Carbon Dioxide 16.0 L, Anion Gap 8, BUN 28 H, Creatinine 1.34 H, Estim Creat Clear Calc 40.84, Est GFR (MDRD) Af Amer 50 L, Est GFR (MDRD) Non-Af 42 L, BUN/Creatinine Ratio 20.9 H, Glucose 103, Calcium 7.4 L 01/14/22 06:30: WBC 10.6, RBC 3.58 L, Hgb 12.7, Hct 34.8 L, MCV 97.2 D, MCH 35.5 H, MCHC 36.5 H D, RDW Std Deviation 48.9 H, RDW Coeff of Saloni 13.6, Plt Count 167, MPV 10.9, Immature Gran % (Auto) 0.600, Neut % (Auto) 23.7 L, Lymph % (Auto) 65.3 H, [place] % (Auto) 9.0, Eos % (Auto) 1.0, Baso % (Auto) 0.4, Absolute Neuts (auto) 2.5, Absolute Lymphs (auto) 6.91 H, Nucleated RBC % 0, Differential Comment SCANNED, Reactive Lymphocytes 1+ 01/14/22 06:30: Sodium 140, Potassium 2.8 L, Chloride 108 H, Carbon Dioxide 27.0, Anion Gap 5, BUN 20 H, Creatinine 0.97, Estim Creat Clear Calc 59.30, Est GFR (MDRD) Af Amer 73, Est GFR (MDRD) Non-Af 60, BUN/Creatinine Ratio 20.7 H, Glucose 127 H, Calcium 7.3 L, Phosphorus 0.8 L*, Magnesium 1.7 Physical Exam Const alert, oriented x3 and no apparent distress Constitutional Narrative: Obese, older white female lying in bed, awake watching television, has just finished breakfast and ate a good majority of her breakfast today, appears as if she is feeling much better General Appearance: cooperative Exam Limitations: no limitations Nutritional Appearance: obese HEENT normocephalic, head/scalp atraumatic, moist oral mucous membranes and oropharynx normal HEENT Narrative: Mallampati 2, no thrush Head and Scalp: normocephalic Eyes PERRL, EOMs intact bilaterally and conjunctivae normal Neck no lymphadenopathy, supple and no JVD Neck Narrative: Trachea midline, no thyroid enlargement, neck is short and thick Resp normal respiratory effort, no retractions, no use of accessory muscles and clear to auscultation bilaterally Auscultation: Negative for crackles, rales, rhonchi or wheezes Cardio regular rate, regular rhythm, S1 normal heart sound, S2 normal heart sound and no murmurs GI soft to palpation and non-distended; Negative for hepatosplenomegaly GI Narrative: Bowel sounds are more normoactive, ostomy output is brown and thicker today, minimal tenderness diffusely Extremity no clubbing, cyanosis or edema Peripheral Pulses: Yes pulses 2+ throughout Skin no rashes or lesions noted, no wounds, skin turgor normal, no jaundice, no petechiae and no mottling Neuro oriented x3, moves all extremities and no focal motor deficits Neuro Narrative: Dentalized weakness but no focal deficits Sensorium / Orientation: awake and alert Speech: speech normal Psych affect normal Psych Narrative: Patient is much more appropriate and interactive today and appears as if she is feeling significantly better Appearance: appropriate Assessment & Plan Assessment/Plan (1) Rotaviral gastroenteritis: (2) Gastroenteritis due to norovirus: (3) Orthostasis: (4) High output ileostomy: (5) Hypophosphatemia: (6) Hypokalemia: PLAN: Acute gastroenteritis secondary to rotavirus/norovirus -Enteric panel positive for both viruses -C. difficile negative -P.o. intake is overall fairly poor but seems to be slowly improving -Ostomy output is significantly higher than baseline but this is decreasing as well -875 cc in last 24 hours -Only 400 out since midnight -Causing significant dehydration with acute kidney injury as well as metabolic acidosis secondary to the massive amounts of stool output she is having -Continue diet orally as able and advance to regular food -We will continue IV fluids -Continue Metamucil to hopefully bulk form stool -Loperamide has been discontinued at this time -Continue to monitor ostomy output Orthostatic hypotension -Resolved Acute hypokalemia -Likely related to GI losses in stool -Replete and recheck in a.m. with a.m. BMP Hypophosphatemia -Likely related to GI losses and stool -Repleted with a total of 80 mmol of phosphorus -Repeat Phos in a.m. PEPE secondary to dehydration -Serum creatinine was 2.64 on admission and now down to 1.25 -Resolved serum creatinine is now 0.97 -We will discontinue IV fluids Metabolic acidosis -Secondary to profuse watery diarrhea and GI losses of bicarbonate as well as elevated chloride with IV fluid repletion -Resolved -Continue oral bicarb -Discontinue IV bicarb drip -Repeat BMP in a.m. 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
[2022-01-14 15:17] VITALS: BP 120/60; PULSE 83; RESP 18; TEMP 36.9; O2SAT 97
--- NOTE | 2022-01-14 16:04 | CASEMGMT ---
TC to [facility] to make aware that pt may be dc'd tomorrow. RN CM to update tomorrow.
[2022-01-14] MEDS: Acetaminophen 325 MG Tablet 650 MG PO (17:00)
[2022-01-14 22:24] VITALS: BP 98/46; PULSE 79; RESP 18; TEMP 36.8; O2SAT 93
[2022-01-14] MEDS: MELATONIN 3 MG TABLET PO (22:28)
[2022-01-15 04:24] VITALS: BP 112/59; PULSE 91; RESP 16; TEMP 36.9; O2SAT 97
[2022-01-15] MEDS: 0.9% Saline Lock 10 ML Syringe IV ×2 (04:24→15:35)
[2022-01-15] MEDS: Levothyroxine 100 MCG Tablet PO (05:50)
[2022-01-15] MEDS: Meclizine HCl 25 MG Tablet PO (05:51)
[2022-01-15] MEDS: Heparin Injection (Vial) 5,000 UNIT/ML VIAL 5000 UNIT SC (05:51)
[2022-01-15] MEDS: Acetaminophen 325 MG Tablet 650 MG PO (05:56)
[2022-01-15 06:56] LABS: Absolute Lymphocyte Count 7.16 X10^3/uL (0.83-4.51); Basophil# 0.03 X10^3/uL; Basophil% 0.3 % (0-1); Eosinophil# 0.12 X10^3/uL; Eosinophils% 1.1 % (0-5); Hematocrit 32.6 % (37-47); Lymphocyte # 7.16 X10^3/ul (0.83-4.51); Lymphocyte % 68.5 % (19-41); Mean Corp Hgb Conc 36.8 g/dL (32-36); Mean Corpuscular Hgb 35.6 pg (27.0-32.0); Mean Corpuscular Volume 96.7 fL (81-99); Mean Platelet Vol. 10.9 fl (6.2-12.0); Monocyte# 1.13 X10^3/uL; Monocyte% 10.8 % (0-10); NRBC Flagged by Analyzer 0 % (0-5); Neutrophil # 1.99 X10^3/uL (2.7-7.7); POSITIVE DIFFERENTIAL YES; Platelet Count 151 K/mm3 (150-450); RBC Distribution Width CV 13.6 % (11.6-14.6); RBC Distribution Width SD 48.5 fl (35.1-43.9); Red Blood Count 3.37 M/mm3 (4.2-5.4); White Blood Count 10.5 K/mm3 (4.4-11.0)
[2022-01-15 07:02] LABS: Differential Indicated SCAN CRITERIA MET
[2022-01-15 07:16] LABS: Differential Comment SCANNED; Reactive Lymphocyte 1+
[2022-01-15 07:30] LABS: Anion Gap 7 (5-15); BUN 11 mg/dL (7-18); BUN/Creat Ratio 14.8 RATIO (10-20); Calcium,Total 6.8 mg/dL (8.5-10.1); Chloride 109 mmol/L (98-107); Creatinine, Serum 0.74 mg/dL (0.55-1.02); EST Glomerular Filtration Rate 82 mL/min (>60); Est Glom Filt Rate - Afr Amer 99 mL/min (>60); Estimated Creatinine Clearance 58.01 ml/min; Glucose 96 mg/dL (74-106); Magnesium 1.3 mg/dL (1.6-2.6); Phosphorus 3.6 mg/dL (2.5-4.9); Potassium 2.7 mmol/L (3.5-5.1); Sodium Level 145 mmol/L (136-145)
[2022-01-15 09:13] VITALS: BP 100/48; PULSE 81; RESP 18; TEMP 36.7; O2SAT 97
[2022-01-15] MEDS: Potassium Chloride Oral Tablet 20 MEQ 60 MEQ PO (09:17)
[2022-01-15] MEDS: Magnesium Sulfate 4gm/100mL 4 GM/100 ML IV.SOLN. IV (09:18)
[2022-01-15] MEDS: OMEPRAZOLE 40 MG CAPSULE.DR PO (09:19)
[2022-01-15] MEDS: Acyclovir 200 MG Capsule 400 MG PO (09:19)
[2022-01-15] MEDS: Potassium Chloride 10mEq/100mL 10 MEQ/100 ML IV.SOLN. 100 MEQ IV BOLUS ×4 (09:19→12:43)
[2022-01-15] MEDS: Sodium Bicarbonate 650 MG Tablet PO (09:19)
--- NOTE | 2022-01-15 10:38 | PCM.DC.SUM ---
Providers Date of Admission: 01/11/22 Date of Discharge: 01/15/22 Primary Care Physician: Dr. Dorcas Prince MD Reason For Visit: DEHYDRATION FROM GASTROENTERITIS Diagnosis Discharge Diagnosis (1) Rotaviral gastroenteritis: Status: Acute Code(s): A08.0 - Rotaviral enteritis (2) Gastroenteritis due to norovirus: Status: Acute Code(s): A08.11 - Acute gastroenteropathy due to [place] agent (3) Orthostasis: Status: Acute Code(s): I95.1 - Orthostatic hypotension (4) High output ileostomy: Status: Acute Code(s): R19.8 - Other specified symptoms and signs involving the digestive system and abdomen; Z93.2 - Ileostomy status (5) Hypophosphatemia: Status: Acute Code(s): E83.39 - Other disorders of phosphorus metabolism (6) Hypokalemia: Status: Acute Code(s): E87.6 - Hypokalemia Medications at Discharge Home Medications magnesium oxide 800 mg PO BID 09/08/15 acyclovir 400 mg PO BID 07/27/16 ergocalciferol (vitamin D2) 50,000 unit PO FR 07/27/16 estradiol 1 dose VAGINAL DAILY PRN 07/26/17 L.acidoph, paracasei,B. lactis 1 ea PO DAILY 05/06/19 esomeprazole magnesium 40 mg PO DAILY 05/06/19 ynokllww-rys-ZC-lycopen-lutein 1 ea PO DAILY 02/10/20 meclizine 25 mg tablet 25 mg PO TID 02/19/20 levothyroxine 100 mcg tablet 100 mcg PO DAILY #1 tab 04/11/20 metoprolol tartrate 25 mg PO DAILY 01/08/22 sodium bicarbonate 650 mg PO BID #10 tab 01/15/22 Hospital Course Operations None Procedures None Summary of Care Provided Minutes Spent on Discharge: 37 Hospital Course: Mrs. Simmons is a 71-year-old female who presented to the emergency department [facility] on 01/11/2022 with a chief complaint of persistent nausea vomiting and diarrhea. The patient had a recent admission from 01/08-01/10 at which time she was found to have acute kidney injury secondary to acute viral gastroenteritis from norovirus and rotavirus. At that time she was given IV fluids but requested to be discharged home and to follow-up with her primary care physician in 3 to 5 days after discharge. She unfortunately went home and was not able to take p.o. and and had continued watery output from her ostomy. As a result she developed further dehydration and repeat presented to the emergency department on the evening of 01/11/2022. She has a history of AML for which she had a bone marrow transplant and then ended up suffering from eyrxf-aegonq-fdos disease which resulted in bowel perforation and resultant colectomy with current end ileostomy. She stated that her output was typically high but her output from her ostomy had been medically higher than her baseline. She was orthostatic positive on admission. Her CBC showed a leukocytosis with a predominant lymphocyte count. Her BMP showed a metabolic acidosis with a serum bicarb of 12 a chloride of 109 and a serum creatinine at 2.64 with a BUN of 52. The day previously when she was discharged her serum bicarb was 17 her BUN was 27 and her serum creatinine was 1.26. She was admitted to the medical floor and placed on IV fluids with normal saline at 125 cc/h. Her kidney function dramatically improved and within 24 hours was down to 1.61. Her BMP was followed closely throughout her hospitalization as well as her serum electrolytes. With her low bicarb and elevated chloride her IV fluids were changed to half-normal saline but unfortunately with her persistent high volume output from her ostomy her bicarb dropped further and was 9 in the following day. An ABG was obtained at that time and she was found to have a metabolic acidosis with a pH of 7.22. At that time she was placed on a serum bicarb drip with 150 mill equivalents of bicarb in D5W at a rate of 150 cc/h. Repeat laboratory work later in that day showed improvement in her metabolic acidosis and the following morning her acidosis had resolved. We were able to discontinue her IV bicarb at that time and place her on oral bicarb. Her IV fluids were discontinued as her renal function had normalized on 01/14/2022. Given her ostomy output was markedly watery she was placed on Metamucil to bulk form her stools and loperamide was used to decrease volume for 24 hours. She had marked reduction in overall stool output. Her 24 hours stool output was as high as 2.4 L but had decreased to 600 cc in the 24 hours prior to discharge. She had marked electrolyte abnormalities during her stay with hypokalemia hypomagnesemia and hypophosphatemia. She was repleted extensively. She does indicate that she has chronic issues with hypomagnesemia and hypokalemia and takes chronic supplementation at home and labs are followed closely. On the day of discharge her potassium was two-point 7 in the morning and she was repleted with oral and IV potassium as well as and 4 g IV mag bolus. Repeat lab was obtained later that day and showed significant improvement and we therefore felt it was safe for her to go home. We recommended she follow-up with her primary care physician within the next 1 to 2 weeks but call to obtain a BMP within the week. She was discharged home with sodium bicarb twice daily for another 5 days and instructed to use Metamucil for the next 5 days 3 times daily and then decrease as needed. She was discharged home in stable condition on 01/15/2022. 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 Const alert, oriented x3 and no apparent distress Constitutional Narrative: Obese, older white female lying in bed, awake watching television, as if she is feeling well General Appearance: cooperative, comfortable, well kempt and well developed Orientation / Consciousness: awake Exam Limitations: no limitations Nutritional Appearance: obese HEENT normocephalic, head/scalp atraumatic, hearing grossly normal bilaterally, moist oral mucous membranes and oropharynx normal HEENT Narrative: Mallampati 2, no thrush Eyes PERRL, EOMs intact bilaterally and conjunctivae normal Eyes Narrative: No scleral icterus Neck no lymphadenopathy, supple and no JVD Neck Narrative: Trachea midline, no thyroid enlargement Resp normal respiratory effort, no retractions, no use of accessory muscles and clear to auscultation bilaterally Auscultation: Negative for crackles, rales, rhonchi or wheezes Cardio regular rate, regular rhythm, S1 normal heart sound, S2 normal heart sound, no murmurs, no rub, no gallops, no clicks and no JVD GI normal to inspection, nondistended, normoactive bowel sounds, soft to palpation and non-distended; Negative for hepatosplenomegaly GI Narrative: Ostomy right lower quadrant with mushy brown stool-patient states this is her baseline stool appearance Extremity no clubbing, cyanosis or edema Extremity Narrative: 2+ pedal pulses Skin no rashes or lesions noted, no wounds, skin turgor normal, no jaundice, no petechiae and no mottling Neuro oriented x3, CN's II-XII intact bilaterally, moves all extremities and no focal motor deficits Neuro Narrative: Dentalized weakness but no focal deficits Sensorium / Orientation: awake and alert Speech: speech normal Motor Exam: strength 5/5 throughout Psych affect normal Psych Narrative: Very pleasant and appropriate Appearance: appropriate Weight / BMI Weight Weight: 70.2 kg Body Mass Index (BMI) 31.3 ABG / Lab / Microbiology Data Result Diagrams: 01/15/22 06:45 01/15/22 06:45 Laboratory: Laboratory Results - last 24 hr 01/15/22 06:45: WBC 10.5, RBC 3.37 L, Hgb 12.0, Hct 32.6 L, MCV 96.7, MCH 35.6 H, MCHC 36.8 H, RDW Std Deviation 48.5 H, RDW Coeff of Saloni 13.6, Plt Count 151, MPV 10.9, Immature Gran % (Auto) 0.300, Neut % (Auto) 19.0 L, Lymph % (Auto) 68.5 H, [place] % (Auto) 10.8 H, Eos % (Auto) 1.1, Baso % (Auto) 0.3, Absolute Neuts (auto) 2.0, Absolute Lymphs (auto) 7.16 H, Nucleated RBC % 0, Differential Comment SCANNED, Reactive Lymphocytes 1+ 01/15/22 06:45: Sodium 145, Potassium 2.7 L*, Chloride 109 H, Carbon Dioxide 29.0, Anion Gap 7, BUN 11, Creatinine 0.74, Estim Creat Clear Calc 58.01, Est GFR (MDRD) Af Amer 99, Est GFR (MDRD) Non-Af 82, BUN/Creatinine Ratio 14.8, Glucose 96, Calcium 6.8 L, Phosphorus 3.6, Magnesium 1.3 L D/C Instructions Discharge Diet: No restrictions Meaningful Use Info Meaningful Use Diagnoses (Choose all that apply): None applicable Discharge Plan Admission Admit Date/Time: 01/11/22 22:24 Primary Reason for Your Visit: Nausea vomiting/diarrhea-rotavirus/norovirus infection Attending Provider: Nan Mock Primary Care Provider: Dorcas Prince Instructions Additional Instructions / Restrictions: 1. Please call primary care office for a follow-up basic metabolic profile, phosphorus, and magnesium level to be drawn within the next week 2. Use Metamucil 3 times daily for the next 3 to 5 days and then decrease use slowly Discharge Orders/Prescriptions Prescriptions: New sodium bicarbonate 650 mg Tablet 650 mg PO BID Qty: 10 RF: 0 Continued meclizine 25 mg tablet 25 mg PO TID RF: 0 magnesium oxide 400 MG tablet 800 mg PO BID RF: 0 acyclovir 400 MG tablet 400 mg PO BID RF: 0 ergocalciferol (vitamin D2) 50,000 UNIT capsule 50,000 unit PO FR RF: 0 estradiol 42.5 GM cream 1 dose vaginal DAILY PRN (Reason: Itching) RF: 0 esomeprazole magnesium 40 MG capsule,delayed release(DR/EC) 40 mg PO DAILY RF: 0 L.acidoph, paracasei,B. lactis 1 EACH capsule 1 ea PO DAILY RF: 0 ghyteypj-elj-BD-lycopen-lutein 1 EACH tablet 1 ea PO DAILY RF: 0 metoprolol tartrate 25 mg tablet 25 mg PO DAILY RF: 0 levothyroxine 100 mcg tablet 100 mcg PO DAILY Qty: 1 RF: 0 Referrals / Follow Up: Dorcas Prince MD [Primary Care Provider] - Within 2 Weeks (call for lab to be drawn in the next week) Disposition Disposition (needs filled in before D/C Order can be placed): Home Health Service Charges/Coding Visit Charges Inpatient E&M: 89750 Disch Hosp
--- NOTE | 2022-01-15 11:34 | CASEMGMT ---
MP ALEXIS called and updated [facility] at [facility] that patient is discharging today. MP ALEXIS faxed discharge paperwork to [facility].
--- NOTE | 2022-01-15 12:31 | PHA.DC.MR ---
Pharmacy Service has performed discharge medication reconciliation for this patient. The patient's discharge medication list was reviewed for discrepancies and discrepancies were resolved. Went to treatment counselor, pt in contact precautions. Medications reviewed. Home Medications magnesium oxide 800 mg PO BID 09/08/15 acyclovir 400 mg PO BID 07/27/16 ergocalciferol (vitamin D2) 50,000 unit PO FR 07/27/16 estradiol 1 dose VAGINAL DAILY PRN 07/26/17 L.acidoph, paracAjay ford. lactis 1 ea PO DAILY 05/06/19 esomeprazole magnesium 40 mg PO DAILY 05/06/19 gyiabamt-ryj-OB-lycopen-lutein 1 ea PO DAILY 02/10/20 meclizine 25 mg tablet 25 mg PO TID 02/19/20 levothyroxine 100 mcg tablet 100 mcg PO DAILY #1 tab 04/11/20 metoprolol tartrate 25 mg PO DAILY 01/08/22 sodium bicarbonate 650 mg PO BID #10 tab 01/15/22
[2022-01-15 14:41] LABS: Anion Gap 4 (5-15); BUN 11 mg/dL (7-18); BUN/Creat Ratio 13.3 RATIO (10-20); Calcium,Total 7.5 mg/dL (8.5-10.1); Chloride 107 mmol/L (98-107); Creatinine, Serum 0.83 mg/dL (0.55-1.02); EST Glomerular Filtration Rate 72 mL/min (>60); Est Glom Filt Rate - Afr Amer 87 mL/min (>60); Estimated Creatinine Clearance 69.89 ml/min; Glucose 151 mg/dL (74-106); Potassium 3.9 mmol/L (3.5-5.1); Sodium Level 142 mmol/L (136-145)
== END 2022-01-15 15:44 | disposition home health service (06) | DRG 392 ==
LOC: ED 22:33 → MS3 01-12 06:57
PROVIDERS: Admitting Provider Family Medicine; Emergency Provider Emergency Medicine; PCP Internal Medicine; Visit Provider Internal Medicine
DX: A08.0 Rotaviral enteritis (principal); T86.5 Complications of stem cell transplant; Z94.81 Bone marrow transplant status; D84.9 Immunodeficiency, unspecified; D89.813 Graft-versus-host disease, unspecified; Z93.2 Ileostomy status; N17.9 Acute kidney failure, unspecified; I48.0 Paroxysmal atrial fibrillation; E87.2 Acidosis; E86.0 Dehydration; B34.8 Other viral infections of unspecified site; E03.9 Hypothyroidism, unspecified; E78.5 Hyperlipidemia, unspecified; A08.11 Acute gastroenteropathy due to Norwalk agent; K21.9 Gastro-esophageal reflux disease without esophagitis; I10 Essential (primary) hypertension; E55.9 Vitamin D deficiency, unspecified; K52.9 Noninfective gastroenteritis and colitis, unspecified; E87.6 Hypokalemia; E87.8 Other disorders of electrolyte and fluid balance, not elsewhere classified; I95.1 Orthostatic hypotension; E66.9 Obesity, unspecified; Z79.899 Other long term (current) drug therapy; Z79.01 Long term (current) use of anticoagulants
CPT/HCPCS: 36415; 36600; 80048; 82803; 83735; 84100; 85025; 96361; 96365; 96366; 96367; 96372; 96375; 96376; 97110; 97116; 97161; 97166; 97535; 99221; 99285; J7030; J7040; J7050; A4216; G0378; J2405

== ENCOUNTER 2022-02-26 13:50 | Emergency (ER) | payer MEDICARE, SELFPAY ==
[2022-02-26 13:53] VITALS: BP 143/84; PULSE 122; RESP 22; TEMP 36.8; O2SAT 92; BMI 31.3
--- NOTE | 2022-02-26 14:11 | EDS_ITS ---
HPI History of Present Illness Chief Complaint: Cold Sx Informant: patient Onset/Context/Timing Onset: Days (3) Context: gradual Timing: Continuous Worsened by: Nothing Relieved by: - (Mucinex) Associated Symptoms cough, rhinorrhea, fever, sore throat and yellow sputum; Negative for ear pain Chest Pain: Positive for None and Dull Narrative Narrative: Patient presents with sore throat and cough that has been getting worse over the last 3 days. Patient admits to some sinus pressure and pain. Patient states it is mainly over her maxillary sinuses. Patient describes it as aching. Patient states she has been taking Mucinex which has been helping with it. Patient denies any nausea or vomiting. Patient admits to a low-grade fever of 100.1. Patient states she has been coughing up some yellow sputum. Patient has had decreased output in her ileostomy. [facility] Medical History AML (acute myeloid leukemia) in remission (~01/12/22) Atrial fibrillation with RVR Essential hypertension GERD (gastroesophageal reflux disease) Ggprq-tzgmqx-lbcv disease High output ileostomy History of DVT (deep vein thrombosis) (~10/2015) History of syncope Hypokalemia Hypophosphatemia Hypothyroidism Ileostomy in place Right bundle branch block Small bowel obstruction Home Medications magnesium oxide 800 mg PO BID 09/08/15 [History Last Taken 01/06/22] acyclovir 400 mg PO BID 07/27/16 [History Last Taken 01/06/22] ergocalciferol (vitamin D2) 50,000 unit PO FR 07/27/16 [History Last Taken 01/02/22] estradiol 1 dose VAGINAL DAILY PRN 07/26/17 [History Last Taken 02/10/20] L.acidoph, paracasei,B. lactis 1 ea PO DAILY 05/06/19 [History Last Taken 01/06/22] esomeprazole magnesium 40 mg PO DAILY 05/06/19 [History Last Taken 01/06/22] eojadikf-uor-HY-lycopen-lutein 1 ea PO DAILY 02/10/20 [History Last Taken 01/06/22] meclizine 25 mg tablet 25 mg PO TID 02/19/20 [History Last Taken 01/06/22] levothyroxine 100 mcg tablet 100 mcg PO DAILY #1 tab 04/11/20 [Rx Last Taken 01/06/22] metoprolol tartrate 25 mg PO DAILY 01/08/22 [History Last Taken 01/06/22] sodium bicarbonate 650 mg PO BID #10 tab 01/15/22 [Rx Last Taken Unknown] Allergy/AdvReac Type Severity Reaction Status Date / Time Gadolinium-MRI Contrast Allergy Hives Verified 02/26/22 13:53 Medium [CONTRAST] Iodinated Contrast Media Allergy Hives Verified 02/26/22 13:53 [Iodinated Contrast Media - IV Dye] iodine Allergy Hives Verified 02/26/22 13:53 teriparatide [From Forteo] AdvReac Unknown Unknown Verified 02/26/22 13:53 Surgical History Bone marrow transplant status History of total colectomy Social History Smoking Status: Never smoker ROS ROS ED Constitutional Constitutional ED: Reports fever(s); Denies chills Eyes Eyes: Denies blurry vision or change in vision ENT ENT ED: Reports sore throat; Denies rhinorrhea Cardiovascular Cardiovascular: Denies chest pain or palpitations Respiratory/Chest Respiratory/Chest: Reports cough and sputum; Denies dyspnea Gastrointestinal Gastrointestinal: Denies nausea or vomiting Genitourinary Genitourinary ED: Denies dysuria or hematuria Musculoskeletal Musculoskeletal: Denies back pain or neck pain Integumentary Denies abscess or rash Neurologic Neurologic: Denies headache(s) or weakness Allergic/Immunologic Allergic/Immunologic ED: Denies mouth swelling or urticaria EXAM Physical Exam Const Vital Signs: 02/26/22 13:53 02/26/22 14:36 Temperature 98.3 F Temperature Source Temporal Pulse Rate 122 H Respiratory Rate 22 H Respiratory Effort Non-Labored Respiratory Depth Normal Respiratory Pattern Normal Blood Pressure 143/84 H Blood Pressure Mean 103 Pulse Ox 92 Oxygen Delivery Method Room Air Room Air Positive well nourished and well developed General Appearance ED: well developed HEENT Reports moist mucous membranes HEENT Narrative: There is tenderness over the maxillary and frontal sinuses bilaterally. Neck supple and no JVD Resp normal respiratory effort and clear to auscultation bilaterally Cardio regular rate, regular rhythm and no murmurs GI normal to inspection, nondistended, normoactive bowel sounds and non-tender Palpation: soft Extremity normal to inspection General Extremety ED: Negative for edema or tenderness General Extremity: Negative for edema Neuro oriented x3, CN's II-XII intact bilaterally and no sensory deficits noted Sensorium / Orientation: alert Motor Exam: strength 5/5 throughout Psych mental status grossly normal Skin no rashes or lesions noted MDM MDM MDM Narrative Medical decision making narrative: Patient was given IV fluids. Portable 1 view chest x-ray was obtained. On my interpretation, lung hammond are clear. There is normal cardiac silhouette. Bony thorax is normal. There is no acute process noted. Radiologist also interpreted the x-ray and agrees. CBC shows a mild leukocytosis of 16.9. Hemoglobin was 14.0 and hematocrit was 41.5. Comprehensive metabolic profile showed a slightly elevated glucose of 183. Remainder was within normal limits. COVID-19 rapid antigen was obtained and was negative. Influenza A and influenza B swabs were obtained and were negative. Patient was advised of her findings. Patient was advised that this is most likely a viral upper respiratory infection. Patient was instructed to follow-up with her primary care physician in 5 to 7 days. Patient understood and was agreeable with the plan. All questions were answered. Lab Data Attestation: I reviewed the patient's lab results. Labs: Laboratory Results - last 24 hr 02/26/22 02/26/22 14:35 14:35 WBC 16.9 H RBC 4.01 L Hgb 14.0 Hct 41.5 MCV 103.5 H MCH 34.9 H MCHC 33.7 RDW Std Deviation 55.3 H RDW Coeff of Saloni 14.3 Plt Count 239 MPV 10.4 Immature Gran % (Auto) 0.400 Neut % (Auto) 56.8 Lymph % (Auto) 29.7 Jess[place] % (Auto) 12.2 H Eos % (Auto) 0.7 Baso % (Auto) 0.2 Absolute Neuts (auto) 9.6 H Absolute Lymphs (auto) 5.02 H Nucleated RBC % 0 Differential Comment COMMENT Diff Path Review May foll Sodium 138 Potassium 3.6 Chloride 108 H Carbon Dioxide 26.0 Anion Gap 4 L BUN 17 Creatinine 0.96 Estim Creat Clear Calc 57.73 Est GFR (MDRD) Af Amer 74 Est GFR (MDRD) Non-Af 61 BUN/Creatinine Ratio 17.7 Glucose 183 H Calcium 8.5 Total Bilirubin 0.40 AST 21 ALT 45 Alkaline Phosphatase 101 Total Protein 7.0 Albumin 3.3 Globulin 3.7 Albumin/Globulin Ratio 0.9 Radiography Chest X-Ray - ED: 1 View, Read by ED Physician, Read by Radiologist and No Acute Disease Diagnostic Testing: Clinical Impression(s) from Imaging Studies Chest X-Ray 02/26/22 14:40 IMPRESSION: There are no acute findings. Electronically Signed: Wilbur Engel MD at 15:03 EDT Reading Location ID and State: [facility] / [place] , Service support , Discharge Plan Triage Chief Complaint: Cold Sx ED Provider: Jasvir Spaulding Dx/Rx/DC Orders Clinical Impression: Viral URI, Cough Instructions: ED URI, Viral, No Abx (Adult) Prescriptions: No Action meclizine 25 mg tablet 25 mg PO TID RF: 0 magnesium oxide 400 MG tablet 800 mg PO BID RF: 0 acyclovir 400 MG tablet 400 mg PO BID RF: 0 ergocalciferol (vitamin D2) 50,000 UNIT capsule 50,000 unit PO FR RF: 0 estradiol 42.5 GM cream 1 dose vaginal DAILY PRN (Reason: Itching) RF: 0 esomeprazole magnesium 40 MG capsule,delayed release(DR/EC) 40 mg PO DAILY RF: 0 L.acidoph, paracasei,B. lactis 1 EACH capsule 1 ea PO DAILY RF: 0 xkaxebfg-exg-MS-lycopen-lutein 1 EACH tablet 1 ea PO DAILY RF: 0 metoprolol tartrate 25 mg tablet 25 mg PO DAILY RF: 0 sodium bicarbonate 650 mg Tablet 650 mg PO BID Qty: 10 RF: 0 levothyroxine 100 mcg tablet 100 mcg PO DAILY Qty: 1 RF: 0 Primary Care Provider: Dorcas Prince Referrals: Dorcas Prince MD [Primary Care Provider] - 3-5 Days Disposition Disposition: Home, Self Care
[2022-02-26] MEDS: 0.9% Normal Saline 1,000 ML 1000 ML IV (14:39)
--- NOTE | 2022-02-26 14:40 | RAD_ITS ---
STUDY: X-RAY CHEST REASON FOR EXAM: Female, 72 years old. Cough TECHNIQUE: XR Chest 1 View COMPARISON: 8 FINDINGS: There is a left Port-A-Cath and/or mediport in place. The tip is in the superior vena caval - atrial junction. Normal size heart. Normal mediastinum and jermaine. Normal visualized pulmonary arteries. There is atherosclerotic calcification of the aortic arch with tortuosity. There are diffuse degenerative changes of the visualized thoracic spine. There is degenerative osteoarthritis of the bilateral shoulders. There is no demonstrated abnormality of the visualized soft tissue structures of the upper abdomen. RAD/Chest 1 View (Portable) IMPRESSION: There are no acute findings. Electronically Signed: Wilbur Engel MD at 15:03 EDT ,
[2022-02-26 14:46] LABS: Absolute Lymphocyte Count 5.02 X10^3/uL (0.83-4.51); Absolute Neutrophil Count 9.6 X10^3/uL (2.0-7.7); Basophil# 0.04 X10^3/uL; Basophil% 0.2 % (0-1); Eosinophil# 0.12 X10^3/uL; Eosinophils% 0.7 % (0-5); Hematocrit 41.5 % (37-47); Lymphocyte # 5.02 X10^3/ul (0.83-4.51); Lymphocyte % 29.7 % (19-41); Mean Corp Hgb Conc 33.7 g/dL (32-36); Mean Corpuscular Hgb 34.9 pg (27.0-32.0); Mean Corpuscular Volume 103.5 fL (81-99); Mean Platelet Vol. 10.4 fl (6.2-12.0); Monocyte# 2.06 X10^3/uL; Monocyte% 12.2 % (0-10); NRBC Flagged by Analyzer 0 % (0-5); Neutrophil # 9.59 X10^3/uL (2.7-7.7); Neutrophil % 56.8 % (47-70); POSITIVE DIFFERENTIAL YES; Platelet Count 239 K/mm3 (150-450); RBC Distribution Width CV 14.3 % (11.6-14.6); RBC Distribution Width SD 55.3 fl (35.1-43.9); Red Blood Count 4.01 M/mm3 (4.2-5.4); White Blood Count 16.9 K/mm3 (4.4-11.0)
[2022-02-26 14:49] LABS: Differential Indicated SCAN CRITERIA MET
[2022-02-26 15:08] LABS: ALB/GLOB Ratio 0.9 RATIO (0.9-2.4); AST(SGOT) 21 U/L (15-37); Alanine Aminotransfer ALT/SGPT 45 U/L (13-56); Albumin, Serum 3.3 g/dL (3.2-5.0); Alkaline Phosphatase 101 U/L (45-117); Anion Gap 4 (5-15); BUN 17 mg/dL (7-18); BUN/Creat Ratio 17.7 RATIO (10-20); Calcium,Total 8.5 mg/dL (8.5-10.1); Chloride 108 mmol/L (98-107); Creatinine, Serum 0.96 mg/dL (0.55-1.02); EST Glomerular Filtration Rate 61 mL/min (>60); Est Glom Filt Rate - Afr Amer 74 mL/min (>60); Estimated Creatinine Clearance 57.73 ml/min; Globulin 3.7 g/dL (2.2-4.2); Glucose 183 mg/dL (74-106); Potassium 3.6 mmol/L (3.5-5.1); Sodium Level 138 mmol/L (136-145)
[2022-02-26 16:28] VITALS: RESP 18
[2022-02-27 12:37] LABS: Pathologist Review Reviewed
== END 2022-02-26 16:37 | disposition home or self-care (01) ==
PROVIDERS: Emergency Provider Emergency Medicine; PCP Internal Medicine; Visit Provider Emergency Medicine
DX: J06.9 Acute upper respiratory infection, unspecified (principal); C92.01 Acute myeloblastic leukemia, in remission; Z94.81 Bone marrow transplant status; Z93.2 Ileostomy status; I48.91 Unspecified atrial fibrillation; I10 Essential (primary) hypertension; R05.9 Cough, unspecified; K21.9 Gastro-esophageal reflux disease without esophagitis; E03.9 Hypothyroidism, unspecified; Z86.718 Personal history of other venous thrombosis and embolism
CPT/HCPCS: 36591; 71045; 80053; 85025; 87428; 96360; 96361; 99282; J7030; A4216

== ENCOUNTER 2022-05-13 11:14 | Emergency (ER) | payer MEDICARE, SELFPAY ==
[2022-05-13 11:16] VITALS: BP 113/74; PULSE 73; RESP 17; TEMP 35.9; O2SAT 99; BMI 31.7
--- NOTE | 2022-05-13 11:59 | EDS_ITS ---
HPI HPI - Female History of Present Illness Chief Complaint: Complaint Informant: patient Narrative Narrative: 72-year-old female presenting to the emergency room with chief complaint of difficulty urinating. She states that about 3 weeks ago she developed perineal pain. She saw her solar field installation crew member. Few days later she found some sores in the perineum/buttock area talk to her primary care doctor and her solar field installation crew member and was eventually started on acyclovir and prednisone. Patient states now she is having urinary frequency and hesitancy. She notes dysuria and foul smell. No vaginal discharge. No fevers. No nausea or vomiting. [facility] Medical History AML (acute myeloid leukemia) in remission (~01/12/22) Atrial fibrillation with RVR Essential hypertension GERD (gastroesophageal reflux disease) Vnsel-vdwjgt-uemh disease High output ileostomy History of DVT (deep vein thrombosis) (~10/2015) History of syncope Hypokalemia Hypophosphatemia Hypothyroidism Ileostomy in place Right bundle branch block Small bowel obstruction Home Medications magnesium oxide 400 mg (241.3 mg magnesium) tablet 800 mg PO BID supplement 09/08/15 [History Last Taken 01/06/22] acyclovir 400 mg tablet 400 mg PO BID prevent shingles 07/27/16 [History Last Taken 01/06/22] ergocalciferol (vitamin D2) 1,250 mcg (50,000 unit) capsule 50,000 unit PO FR supplement 07/27/16 [History Last Taken 01/02/22] estradiol 0.01% (0.1 mg/gram) vaginal cream 1 dose vaginal DAILY PRN Itching 07/26/17 [History Last Taken 02/10/20] L.acidoph, paracasei,B. lactis 10 billion cell capsule 1 ea PO DAILY probiotic 05/06/19 [History Last Taken 01/06/22] esomeprazole magnesium 40 mg capsule,delayed release 40 mg PO DAILY GERD 05/06/19 [History Last Taken 01/06/22] zwjziyxz-djt-cioaf acid 0.4 mg-lycopene 300 mcg-lutein 250 mcg tablet 1 ea PO DAILY supplement 02/10/20 [History Last Taken 01/06/22] meclizine 25 mg tablet 25 mg PO TID vertigo 02/19/20 [History Last Taken 01/06/22] levothyroxine 100 mcg tablet 100 mcg PO DAILY #1 TAB 04/11/20 [Rx Last Taken 01/06/22] metoprolol tartrate 25 mg tablet 25 mg PO DAILY htn 01/08/22 [History Last Taken 01/06/22] sodium bicarbonate 650 mg tablet 650 mg PO BID #10 tabs 01/15/22 [Rx Last Taken Unknown] nitrofurantoin monohydrate/macrocrystals 100 mg capsule 100 mg PO Q12 #10 CAPSULES 05/13/22 [Rx Last Taken Unknown] Allergy/AdvReac Type Severity Reaction Status Date / Time Gadolinium-MRI Contrast Allergy Hives Verified 05/13/22 11:16 Medium [CONTRAST] Iodinated Contrast Media Allergy Hives Verified 05/13/22 11:16 [Iodinated Contrast Media - IV Dye] iodine Allergy Hives Verified 05/13/22 11:16 teriparatide [From Forteo] AdvReac Unknown Other Verified 05/13/22 11:16 Surgical History Bone marrow transplant status History of total colectomy Social History Smoking Status: Never smoker ROS ROS ED Constitutional Constitutional ED: Denies chills or weight loss Eyes Eyes: Denies change in vision or diplopia ENT ENT ED: Denies ear pain, rhinorrhea or sore throat Cardiovascular Cardiovascular: Denies chest pain, orthopnea, palpitations or racing heartbeat Respiratory/Chest Respiratory/Chest: Denies cough, dyspnea or orthopnea Gastrointestinal Gastrointestinal: Denies abdominal pain, diarrhea, nausea or vomiting Genitourinary Genitourinary ED: Reports dysuria, hematuria, urinary frequency and other Details: See history of present illness Musculoskeletal Musculoskeletal: Denies arthralgias or myalgias Integumentary Denies abscess or rash Neurologic Neurologic: Denies headache(s) or weakness Psychiatric Psychiatric: Denies anxiety, depression, suicidal ideation or suicidal thoughts Endocrine Endocrinology: Denies polydipsia, polyphagia or polyuria Allergic/Immunologic Allergic/Immunologic ED: Denies mouth swelling, tongue swelling or urticaria EXAM Physical Exam Const Vital Signs: 05/13/22 11:16 Temperature 96.7 F L Temperature Source Temporal Pulse Rate 73 Respiratory Rate 17 Blood Pressure 113/74 Blood Pressure Mean 87 Pulse Ox 99 Oxygen Delivery Method Room Air Positive well nourished and well developed General Appearance ED: well developed HEENT Reports normocephalic, head/scalp atraumatic and moist mucous membranes Eyes PERRL and EOMs intact bilaterally Neck no lymphadenopathy, supple and no JVD Resp normal respiratory effort and clear to auscultation bilaterally Cardio regular rate, regular rhythm and no murmurs GI normal to inspection, nondistended, normoactive bowel sounds and non-tender Palpation: soft Narrative: I do not appreciate any peritoneal sores discharge or wounds. There are several healed over lesions on the buttocks but inconclusive if they were once vesicular. Back/Spine no CVA tenderness and normal ROM Extremity normal to inspection General Extremety ED: Negative for edema General Extremity: Negative for edema Neuro oriented x3 and CN's II-XII intact bilaterally Sensorium / Orientation: alert Motor Exam: strength 5/5 throughout Psych mental status grossly normal Mood & Affect: Negative for depressed or tearful Skin no rashes or lesions noted and no wounds MDM MDM MDM Narrative Medical decision making narrative: Urinalysis is nitrate positive and leukocyte Estrace positive. However microscopic is not conclusive for UTI. We will send this for culture and I do think based on symptomology we should try some Macrobid. If she is not improving I will have her follow-up with primary care Lab Data Attestation: I reviewed the patient's lab results. Labs: Laboratory Results - last 24 hr 05/13/22 12:22 Urine Color Yellow Urine Clarity Clear Urine pH 6.0 Ur Specific [place] 1.015 Urine Protein 15 H Urine Glucose (UA) Normal Urine Ketones Negative Urine Occult Blood Negative Urine Nitrite Positive H Urine Bilirubin 6 H Urine Urobilinogen 8 H Ur Leukocyte Esterase 25 H Urine RBC 0 SEEN Urine WBC 0 SEEN Ur Squamous Epith Cells 0-5 SEEN Urine Bacteria 0 SEEN Urine Mucus 0 SEEN Discharge Plan Triage Chief Complaint: Complaint ED Provider: Cory Trevino Dx/Rx/DC Orders Clinical Impression: Dysuria Instructions: ED Cystitis Female Adult Prescriptions: New nitrofurantoin monohyd/m-cryst [nitrofurantoin monohyd/m-cryst] 100 mg capsule 100 mg PO Q12 Qty: 10 0RF No Action meclizine 25 mg tablet 25 mg PO TID magnesium oxide 400 MG tablet 800 mg PO BID acyclovir 400 MG tablet 400 mg PO BID ergocalciferol (vitamin D2) 50,000 UNIT capsule 50,000 unit PO FR estradiol 42.5 GM cream 1 dose vaginal DAILY PRN (Reason: Itching) esomeprazole magnesium 40 MG capsule,delayed release(DR/EC) 40 mg PO DAILY L.acidoph, paracasei,B. lactis 1 EACH capsule 1 ea PO DAILY cpgmfdcw-uxn-TZ-lycopen-lutein 1 EACH tablet 1 ea PO DAILY metoprolol tartrate 25 mg tablet 25 mg PO DAILY sodium bicarbonate 650 mg Tablet 650 mg PO BID Qty: 10 0RF levothyroxine 100 mcg tablet 100 mcg PO DAILY Qty: 1 0RF Primary Care Provider: Dorcas Prince Referrals: Dorcas Prince MD [Primary Care Provider] - 5-7 Days Disposition Disposition: Home, Self Care
[2022-05-13 12:33] LABS: Bacteria 0 SEEN /hpf (None Seen); Mucous, Urine 0 SEEN /hpf (<or=2+); Red Blood Cells-Urine 0 SEEN /hpf (0-5); White Blood Cells 0 SEEN /hpf (0-5)
[2022-05-13 12:40] LABS: Color, Urine Yellow (Yellow); Glucose, Dipstick Normal (Normal); Ketone-Dipstick Negative (Negative); Leukocyte Esterase-Dipstick 25 /ul (Negative); Nitrite-Dipstick Positive (Negative); Occult Blood-Urine Negative /ul (Negative); Protein-Dipstick 15 mg/dl (Negative); Specific Gravity, Urine 1.015 (1.002-1.030); Urine Clarity Clear (Clear); Urine Urobilinogen 8 mg/dl (Normal)
[2022-05-13 12:47] LABS: Urine Bilirubin Dipstick 6 mg/dL (Negative)
[2022-05-13 12:52] LABS: Squamous Epithelial Cells - UA 0-5 SEEN /hpf (5-10)
== END 2022-05-13 14:41 | disposition home or self-care (01) ==
PROVIDERS: Emergency Provider Emergency Medicine; PCP Internal Medicine; Visit Provider Emergency Medicine
DX: R30.0 Dysuria (principal); I48.91 Unspecified atrial fibrillation; I10 Essential (primary) hypertension; K21.9 Gastro-esophageal reflux disease without esophagitis
CPT/HCPCS: 81001; 87086; 87088; 99282

== ENCOUNTER 2022-05-15 12:24 | Emergency (ER) | payer MEDICARE, SELFPAY ==
[2022-05-15 12:25] VITALS: BP 132/80; PULSE 76; RESP 18; TEMP 36.4; O2SAT 96; BMI 33.5
[2022-05-15 12:27] VITALS: BP 132/80; PULSE 76; RESP 18; TEMP 36.4; O2SAT 96
--- NOTE | 2022-05-15 12:42 | EDS_ITS ---
HPI <PALOMA Sequeira - Last Filed: 05/15/22 15:27> History of Present Illness Chief Complaint: Abd Pain Narrative Narrative: 72-year-old female with a long list of medical problems, patient has a ileostomy, history of AML, hypertension, bone marrow transplant presents to the emergency department for pain to her right lower abdomen, right groin, right leg. Patient is concerned that she may have broke her hip. Patient also complains of pain around her stoma. She denies any fevers or chills. Patient states the pain is much worse with any kind of ambulation, movement. Patient denies any fevers or chills. Patient was seen here on Wednesday diagnosed with a UTI and was given antibiotics. Patient placed on nitrofurantoin. Patient states that the pain is to her right lower back around her right flank. Denies any blood in urine, states to have nausea however no vomiting. PFS <PALOMA Sequeira - Last Filed: 05/15/22 15:27> [facility] Medical History AML (acute myeloid leukemia) in remission (~01/12/22) Atrial fibrillation with RVR Essential hypertension GERD (gastroesophageal reflux disease) [id number] disease High output ileostomy History of DVT (deep vein thrombosis) (~10/2015) History of syncope Hypokalemia Hypophosphatemia Hypothyroidism Ileostomy in place Right bundle branch block Small bowel obstruction Home Medications magnesium oxide 400 mg (241.3 mg magnesium) tablet 800 mg PO BID supplement 09/08/15 [History Last Taken 01/06/22] acyclovir 400 mg tablet 400 mg PO BID prevent shingles 07/27/16 [History Last Taken 01/06/22] ergocalciferol (vitamin D2) 1,250 mcg (50,000 unit) capsule 50,000 unit PO FR supplement 07/27/16 [History Last Taken 01/02/22] estradiol 0.01% (0.1 mg/gram) vaginal cream 1 dose vaginal DAILY PRN Itching 07/26/17 [History Last Taken 02/10/20] L.acidoph, paracasei,B. lactis 10 billion cell capsule 1 ea PO DAILY probiotic 05/06/19 [History Last Taken 01/06/22] esomeprazole magnesium 40 mg capsule,delayed release 40 mg PO DAILY GERD 05/06/19 [History Last Taken 01/06/22] dmzpnmqe-psm-etrop acid 0.4 mg-lycopene 300 mcg-lutein 250 mcg tablet 1 ea PO DAILY supplement 02/10/20 [History Last Taken 01/06/22] meclizine 25 mg tablet 25 mg PO TID vertigo 02/19/20 [History Last Taken ] levothyroxine 100 mcg tablet 100 mcg PO DAILY #1 TAB 04/11/20 [Rx Last Taken 01/06/22] metoprolol tartrate 25 mg tablet 25 mg PO DAILY htn 01/08/22 [History Last Taken 01/06/22] sodium bicarbonate 650 mg tablet 650 mg PO BID #10 tabs 01/15/22 [Rx Last Taken Unknown] nitrofurantoin monohydrate/macrocrystals 100 mg capsule 100 mg PO Q12 #10 CAPSULES 05/13/22 [Rx Last Taken Unknown] oxycodone-acetaminophen 5 mg-325 mg tablet (Percocet) 1 tab PO Q6H PRN pain 3 days #10 tabs 05/15/22 [Rx Last Taken Unknown] sulfamethoxazole 800 mg-trimethoprim 160 mg tablet (Bactrim DS) 1 tab PO BID #20 tabs 05/15/22 [Rx Last Taken Unknown] Allergy/AdvReac Type Severity Reaction Status Date / Time Gadolinium-MRI Contrast Allergy Hives Verified 05/15/22 12:28 Medium [CONTRAST] Iodinated Contrast Media Allergy Hives Verified 05/15/22 12:28 [Iodinated Contrast Media - IV Dye] iodine Allergy Hives Verified 05/15/22 12:28 teriparatide [From Forteo] AdvReac Unknown Other Verified 05/15/22 12:28 Surgical History Bone marrow transplant status History of total colectomy Social History Smoking Status: Never smoker ROS <PALOMA Sequeira - Last Filed: 05/15/22 15:27> ROS ED ROS Narrative Constitutional: Negative for fever, chills, weight loss, weakness Eyes: Negative for vision loss, vision change, double vision ENT: Negative for any sore throat, ear pain, congestion Cardiovascular: Negative for any chest pain, tightness, palpitations Respiratory: Negative for any cough, sputum production, hemoptysis, dyspnea, dyspnea on exertion, orthopnea Gastrointestinal: Negative for any vomiting, diarrhea, constipation, blood in stool, blood in vomit. Positive for abdominal, nausea : Negative for any urinary frequency, dysuria, retention, blood in urine Muscle skeletal: Negative for any muscle joint pain, stiffness, myalgias, arthralgias, neck pain. Positive for right-sided back pain radiates to the right abdomen Neurological: Negative for any headache, syncope, numbness or tingling, dizziness Skin: Negative for any rashes, lumps, itching, abrasions, lacerations Psychiatric: Negative for any depression, anxiety, stress, suicidal ideation, homicidal ideation Hematologic: Negative for any easy bruising, excessive bruising, easy bleeding Allergies: Negative for any eczema, hives, rash EXAM <PALOMA Sequeira - Last Filed: 05/15/22 15:27> Physical Exam Narrative Exam Narrative: Vital signs reviewed. HEET: Head normocephalic atraumatic, TMs clear bilaterally. Posterior pharynx is clear, moist mucous membranes. Nares clear bilaterally. Neck: Supple with no lymphadenopathy or tenderness. No signs of meningismus, negative jolt sign. Cardiac: Regular rate and rhythm no murmurs gallops or rubs, equal peripheral pulses bilaterally. Respiratory: Lungs clear to auscultation bilaterally. No chest tenderness. Abdomen: Soft, nondistended. No abdominal bruit or pulsatile masses. No hepatosplenomegaly. Patient has tenderness around the stoma, negative for any abdominal bruit. Patient has bowel sounds to all quadrants. Patient's stoma has adequate output. No blood noted. Extremities: No peripheral edema, no signs of gross trauma or deformity. Active full range of motion of all extremities. Patient has normal passive range of motion of the right leg, Neuro: Cranial nerves II through XII intact, no focal neurological deficits. Skin: Clean dry and intact with no rash, purpura, petechiae, vesicles or pustules. Backs/flank: No CVA tenderness, no midline spinal tenderness, no deformity. Psych: Normal mood and affect. No SI, HI or acute psychosis. Const Vital Signs: 05/15/22 12:25 05/15/22 12:27 05/15/22 14:35 Temperature 97.5 F L 97.5 F L Temperature Source Temporal Temporal Pulse Rate 76 76 80 Respiratory Rate 18 18 20 H Blood Pressure 132/80 H 132/80 H 91/52 L Blood Pressure Mean 97 97 65 Pulse Ox 96 96 96 Oxygen Delivery Method Room Air Room Air Room Air <Dr. Kwabena Sin DO - Last Filed: 05/16/22 21:13> Physical Exam Const Vital Signs: 05/15/22 12:25 05/15/22 12:27 05/15/22 14:35 Temperature 97.5 F L 97.5 F L Temperature Source Temporal Temporal Pulse Rate 76 76 80 Respiratory Rate 18 18 20 H Blood Pressure 132/80 H 132/80 H 91/52 L Blood Pressure Mean 97 97 65 Pulse Ox 96 96 96 Oxygen Delivery Method Room Air Room Air Room Air [facility] <PALOMA Sequeira - Last Filed: 05/15/22 15:27> [facility] Lab Data Labs: Laboratory Results - last 24 hr 05/15/22 05/15/22 05/15/22 13:15 13:15 14:03 WBC 17.4 H RBC 3.70 L Hgb 12.9 Hct 37.9 MCV 102.4 H MCH 34.9 H MCHC 34.0 RDW Std Deviation 54.3 H RDW Coeff of Saloni 14.7 H Plt Count 110 L MPV 10.0 Immature Gran % (Auto) 1.000 H Neut % (Auto) 58.4 Lymph % (Auto) 28.2 Hidalgo % (Auto) 11.9 H Eos % (Auto) 0.3 Baso % (Auto) 0.2 Absolute Neuts (auto) 10.2 H Absolute Lymphs (auto) 4.92 H Nucleated RBC % 0.1 Differential Comment Diff Path Review May foll Platelet Estimate SLT DEC RBC Morphology NORM C+C Sodium 136 Potassium 3.7 Chloride 105 Carbon Dioxide 25.0 Anion Gap 6 BUN 25 H Creatinine 0.84 Estim Creat Clear Calc 70.50 Est GFR (MDRD) Af Amer 86 Est GFR (MDRD) Non-Af 71 BUN/Creatinine Ratio 29.8 H Glucose 147 H Calcium 8.2 L Total Bilirubin 0.80 AST 15 ALT 26 Alkaline Phosphatase 74 Total Protein 6.3 L Albumin 2.8 L Globulin 3.5 Albumin/Globulin Ratio 0.8 L Lipase 73 Urine Color Red Urine Clarity Sl. Cloudy Urine pH 5.0 Ur Specific [place] 1.020 Urine Protein 30 H Urine Glucose (UA) Normal Urine Ketones Negative Urine Occult Blood Negative Urine Nitrite Positive H Urine Bilirubin 6 H Urine Urobilinogen 8 H Ur Leukocyte Esterase Negative Urine RBC 0 SEEN Urine WBC 0 SEEN Ur Squamous Epith Cells 0-5 SEEN Urine Bacteria 0 SEEN Urine Mucus 0 SEEN Radiography Diagnostic Testing: Clinical Impression(s) from Imaging Studies Abdomen/Pelvis CT 05/15/22 13:25 IMPRESSION: Status post subtotal colectomy with ostomy in the right lower quadrant. Stable right renal cyst. Distended urinary bladder. Electronically Signed: Ralph Morillo MD at 13:56 EDT , Hip X-Ray 05/15/22 13:30 IMPRESSION: Status post left total hip replacement. Mild degree of the right hip joint narrowing. Electronically Signed: Ralph Morillo MD at 13:58 EDT , Treatment and Re-Evaluation Narrative: Patient presents to the emergency department with mild discomfort to the right flank, right abdomen. Patient received a full work-up, patient's laboratory studies show a leukocytosis with a white blood count of 17.4, patient BUN was slightly elevated 25, patient's creatinine is within normal limits. Patient's urinalysis, she was positive for nitrates. Patient also received a CT scan of the abdomen pelvis, this showed a status post subtotal colectomy with ostomy in the right lower quadrant stable right renal cyst, distended urinary bladder. Patient physical examination, laboratory values are consistent with pyelonephritis. Patient was on Macrodantin, patient will be stopping that be placed on Bactrim will receive her first dose of Bactrim today. She will also get something for pain for home. She did receive pain relief after IV morphine x2. She did receive 1 L of normal saline. She was given strict return precaution to return for any worsening back pain, fever chills nausea vomiting. <Dr. Kwabena Sin, DO - Last Filed: 05/16/22 21:13> [facility] Narrative Medical decision making narrative: This patient was seen with a PA/GLUING PRESSMAN Individually assessed they patient including history and physical. I have reviewed everything on the chart that is available and agree with the documentation provided by the PA/GLUING PRESSMAN including discussion about the assessment, treatment plan, discussion, and return precautions. Patient seen and evaluated for lower right-sided abdominal pain. Her blood sugar does show a leukocytosis of 17.4 which she has had before. Renal function electrolytes are normal. Urinalysis nitrite positive. Patient complains she might have a hip fracture and obtain x-ray of the right hip which on my interpretation is no acute fracture or subluxation. Radiologist agree. CT of the abdomen pelvis was obtained which did not identify any acute intra-abdominal process. Since her urine is positive and shows right flank pain should be treated as pyelonephritis. Impression: 1. Right hip pain 2. Pyelonephritis 3. leukocytosis Lab Data Attestation: I reviewed the patient's lab results. Labs: Laboratory Results - last 24 hr 05/15/22 05/15/22 05/15/22 13:15 13:15 14:03 WBC 17.4 H RBC 3.70 L Hgb 12.9 Hct 37.9 MCV 102.4 H MCH 34.9 H MCHC 34.0 RDW Std Deviation 54.3 H RDW Coeff of Saloni 14.7 H Plt Count 110 L MPV 10.0 Immature Gran % (Auto) 1.000 H Neut % (Auto) 58.4 Lymph % (Auto) 28.2 Hidalgo % (Auto) 11.9 H Eos % (Auto) 0.3 Baso % (Auto) 0.2 Absolute Neuts (auto) 10.2 H Absolute Lymphs (auto) 4.92 H Nucleated RBC % 0.1 Differential Comment Diff Path Review May foll Platelet Estimate SLT DEC RBC Morphology NORM C+C Sodium 136 Potassium 3.7 Chloride 105 Carbon Dioxide 25.0 Anion Gap 6 BUN 25 H Creatinine 0.84 Estim Creat Clear Calc 70.50 Est GFR (MDRD) Af Amer 86 Est GFR (MDRD) Non-Af 71 BUN/Creatinine Ratio 29.8 H Glucose 147 H Calcium 8.2 L Total Bilirubin 0.80 AST 15 ALT 26 Alkaline Phosphatase 74 Total Protein 6.3 L Albumin 2.8 L Globulin 3.5 Albumin/Globulin Ratio 0.8 L Lipase 73 Urine Color Red Urine Clarity Sl. Cloudy Urine pH 5.0 Ur Specific De[place] 1.020 Urine Protein 30 H Urine Glucose (UA) Normal Urine Ketones Negative Urine Occult Blood Negative Urine Nitrite Positive H Urine Bilirubin 6 H Urine Urobilinogen 8 H Ur Leukocyte Esterase Negative Urine RBC 0 SEEN Urine WBC 0 SEEN Ur Squamous Epith Cells 0-5 SEEN Urine Bacteria 0 SEEN Urine Mucus 0 SEEN Radiography Diagnostic Testing: Clinical Impression(s) from Imaging Studies Abdomen/Pelvis CT 05/15/22 13:25 IMPRESSION: Status post subtotal colectomy with ostomy in the right lower quadrant. Stable right renal cyst. Distended urinary bladder. Electronically Signed: Ralph Morillo MD at 13:56 EDT , Hip X-Ray 05/15/22 13:30 IMPRESSION: Status post left total hip replacement. Mild degree of the right hip joint narrowing. Electronically Signed: Ralph Morillo MD at 13:58 EDT , Discharge Plan Triage Chief Complaint: Abd Pain ED Midlevel Provider: [place] ED Provider: Kwabena Sin Dx/Rx/DC Orders Clinical Impression: Acute pyelonephritis, Acute flank pain, Abdominal pain Instructions: Abdominal Pain, ED Pyelonephritis, Female (Adult) Prescriptions: New sulfamethoxazole-trimethoprim [Bactrim DS] 800-160 mg tablet 1 tab PO BID Qty: 20 0RF oxycodone-acetaminophen [Percocet] 5-325 mg tablet 1 tab PO Q6H PRN (Reason: pain) 3 Days Qty: 10 0RF No Action meclizine 25 mg tablet 25 mg PO TID magnesium oxide 400 MG tablet 800 mg PO BID acyclovir 400 MG tablet 400 mg PO BID ergocalciferol (vitamin D2) 50,000 UNIT capsule 50,000 unit PO FR estradiol 42.5 GM cream 1 dose vaginal DAILY PRN (Reason: Itching) esomeprazole magnesium 40 MG capsule,delayed release(DR/EC) 40 mg PO DAILY L.acidoph, paracasei,B. lactis 1 EACH capsule 1 ea PO DAILY frqhgech-fsl-SM-lycopen-lutein 1 EACH tablet 1 ea PO DAILY metoprolol tartrate 25 mg tablet 25 mg PO DAILY sodium bicarbonate 650 mg Tablet 650 mg PO BID Qty: 10 0RF nitrofurantoin monohyd/m-cryst [nitrofurantoin monohyd/m-cryst] 100 mg capsule 100 mg PO Q12 Qty: 10 0RF levothyroxine 100 mcg tablet 100 mcg PO DAILY Qty: 1 0RF Primary Care Provider: Dorcas Prince Referrals: Dorcas Prince MD [Primary Care Provider] - Disposition Disposition: Home, Self Care Discharge Date/Time: 05/15/22 16:12
[2022-05-15] MEDS: 0.9% Normal Saline 1,000 ML 1000 ML IV (13:01)
[2022-05-15] MEDS: Ondansetron 4 MG/2 ML Vial IV (13:01)
[2022-05-15] MEDS: Morphine 4 MG/ML Syringe IV ×2 (13:01→14:39)
[2022-05-15 13:25] LABS: Absolute Lymphocyte Count 4.92 X10^3/uL (0.83-4.51); Absolute Neutrophil Count 10.2 X10^3/uL (2.0-7.7); Basophil# 0.03 X10^3/uL; Basophil% 0.2 % (0-1); Eosinophil# 0.05 X10^3/uL; Eosinophils% 0.3 % (0-5); Hematocrit 37.9 % (37-47); Hemoglobin 12.9 g/dL (12.0-15.0); Lymphocyte # 4.92 X10^3/ul (0.83-4.51); Lymphocyte % 28.2 % (19-41); Mean Corpuscular Hgb 34.9 pg (27.0-32.0); Mean Corpuscular Volume 102.4 fL (81-99); Monocyte# 2.07 X10^3/uL; Monocyte% 11.9 % (0-10); NRBC Flagged by Analyzer 0.1 % (0-5); Neutrophil # 10.17 X10^3/uL (2.7-7.7); Neutrophil % 58.4 % (47-70); POSITIVE DIFFERENTIAL YES; Platelet Count 110 K/mm3 (150-450); RBC Distribution Width CV 14.7 % (11.6-14.6); RBC Distribution Width SD 54.3 fl (35.1-43.9); White Blood Count 17.4 K/mm3 (4.4-11.0)
--- NOTE | 2022-05-15 13:25 | CT_ITS ---
STUDY: CT ABDOMEN AND PELVIS WITHOUT CONTRAST REASON FOR EXAM: Female, 72 years old. Abdominal pain. History of prior cholecystectomy and colostomy. RADIATION DOSAGE (If Supplied By Facility): CTDIvol = ( 10.59 ) mGy, DLP = ( 502.97 ) mGycm TECHNIQUE: Transaxial images were obtained from the dome of the diaphragm to the symphysis pubis without oral contrast, and without intravenous contrast. Sagittal and coronal images were reconstructed. Individualized dose optimization techniques were used for this CT. COMPARISON: Comparison is made with prior study dated 02/10/2020. FINDINGS: Stable mild increased markings at the lung bases suggestive of scarring. Coronary artery calcification. Normal liver. The patient is status post cholecystectomy. Normal spleen. Normal pancreas. Normal bilateral adrenal glands. Normal right kidney. There is a 2.8 cm cyst in the lower pole of the left kidney. Normal visualized stomach. Normal small intestine. An ostomy is seen in the right lower quadrant. The appendix is visualized and appears normal. There is diffuse atherosclerotic calcification of the abdominal aorta, without a demonstrated aneurysm. There is an IVC filter in place. Normal retroperitoneum. Distended urinary bladder. The patient is status post subtotal colectomy. A rectal stump is seen. Normal abdominal wall. Normal osseous structures. CT/Abdomen/Pelvis without Cont IMPRESSION: Status post subtotal colectomy with ostomy in the right lower quadrant. Stable right renal cyst. Distended urinary bladder. Electronically Signed: Ralph Morillo MD at 13:56 EDT ,
--- NOTE | 2022-05-15 13:30 | RAD_ITS ---
STUDY: X-RAY - PELVIS AND RIGHT HIP REASON FOR EXAM: Female, 72 years old. Right hip pain. No known injury. TECHNIQUE: 3 views of the pelvis and hip. COMPARISON: None. FINDINGS: An ostomy is seen overlying the right hemipelvis. A filter is seen within the inferior vena cava. There is narrowing with cortical sclerosis and osteophyte formation of the sacroiliac joint consistent with degenerative osteoarthritic changes. Normal bilateral superior and inferior pubic rami. Normal pubic symphysis. Normal bilateral ischial tuberosities. Normal visualized femoral head. Normal acetabulum. There is mild articular joint space narrowing of the hip. The patient is status post left total hip replacement. RAD/Hip Min 2 Views (Portable) IMPRESSION: Status post left total hip replacement. Mild degree of the right hip joint narrowing. Electronically Signed: Ralph Morillo MD at 13:58 EDT ,
[2022-05-15 13:31] LABS: Differential Indicated SCAN CRITERIA MET
[2022-05-15 13:42] LABS: ALB/GLOB Ratio 0.8 RATIO (0.9-2.4); AST(SGOT) 15 U/L (15-37); Alanine Aminotransfer ALT/SGPT 26 U/L (13-56); Albumin, Serum 2.8 g/dL (3.2-5.0); Alkaline Phosphatase 74 U/L (45-117); Anion Gap 6 (5-15); BUN 25 mg/dL (7-18); BUN/Creat Ratio 29.8 RATIO (10-20); Calcium,Total 8.2 mg/dL (8.5-10.1); Chloride 105 mmol/L (98-107); Creatinine, Serum 0.84 mg/dL (0.55-1.02); EST Glomerular Filtration Rate 71 mL/min (>60); Est Glom Filt Rate - Afr Amer 86 mL/min (>60); Globulin 3.5 g/dL (2.2-4.2); Glucose 147 mg/dL (74-106); Lipase 73 U/L (73-393); Potassium 3.7 mmol/L (3.5-5.1); Protein, Total 6.3 g/dL (6.4-8.2); Sodium Level 136 mmol/L (136-145)
[2022-05-15 13:55] LABS: Platelet Estimate SLT DEC (ADEQ); Red Cell Morphology NORM C+C NORMAL (NORM C&C)
[2022-05-15 14:07] LABS: Bacteria 0 SEEN /hpf (None Seen); Mucous, Urine 0 SEEN /hpf (<or=2+); Red Blood Cells-Urine 0 SEEN /hpf (0-5); White Blood Cells 0 SEEN /hpf (0-5)
[2022-05-15 14:11] LABS: Color, Urine Red (Yellow); Glucose, Dipstick Normal (Normal); Ketone-Dipstick Negative (Negative); Leukocyte Esterase-Dipstick Negative /ul (Negative); Nitrite-Dipstick Positive (Negative); Occult Blood-Urine Negative /ul (Negative); Protein-Dipstick 30 mg/dl (Negative); Urine Clarity Sl. Cloudy (Clear); Urine Urobilinogen 8 mg/dl (Normal)
[2022-05-15 14:20] LABS: Squamous Epithelial Cells - UA 0-5 SEEN /hpf (5-10); Urine Bilirubin Dipstick 6 mg/dL (Negative)
[2022-05-15 14:35] VITALS: BP 91/52; PULSE 80; RESP 20; O2SAT 96
[2022-05-15] MEDS: Smz/Tmp Ds Tablet 1 TABLET PO (14:42)
[2022-05-15 15:31] VITALS: BP 114/63; PULSE 79; RESP 20; O2SAT 94
[2022-05-18 15:27] LABS: Pathologist Review Reviewed
== END 2022-05-15 16:12 | disposition home or self-care (01) ==
PROVIDERS: Nurse Practitioner; Emergency Provider Student in an Organized Health Care Education/Training Program; PCP Internal Medicine; Visit Provider Student in an Organized Health Care Education/Training Program
DX: N10 Acute pyelonephritis (principal); Z93.2 Ileostomy status; I48.91 Unspecified atrial fibrillation; R10.9 Unspecified abdominal pain; I10 Essential (primary) hypertension; M25.551 Pain in right hip; D72.829 Elevated white blood cell count, unspecified; Z86.718 Personal history of other venous thrombosis and embolism; E03.9 Hypothyroidism, unspecified
CPT/HCPCS: 73502; 74176; 80053; 81001; 83690; 85025; 87086; 87088; 96361; 96374; 96375; 96376; 99283; J7030; A4216; J2405

== ENCOUNTER → 2022-05-25 | Outpatient (CLI) | payer MEDICARE, SELFPAY ==
[2022-05-25 14:41] LABS: Mucous, Urine 0 SEEN /hpf (<or=2+); Red Blood Cells-Urine 0 SEEN /hpf (0-5); White Blood Cells 0 SEEN /hpf (0-5)
[2022-05-25 15:01] LABS: Color, Urine Yellow (Yellow); Glucose, Dipstick Normal (Normal); Ketone-Dipstick Negative (Negative); Leukocyte Esterase-Dipstick Negative /ul (Negative); Nitrite-Dipstick Positive (Negative); Occult Blood-Urine Negative /ul (Negative); Protein-Dipstick Negative (Negative); Urine Bilirubin Dipstick Negative (Negative); Urine Clarity Clear (Clear); Urine Urobilinogen Normal (Normal)
[2022-05-25 15:29] LABS: Bacteria RARE /hpf (None Seen); Squamous Epithelial Cells - UA 0-5 SEEN /hpf (5-10)
== END | disposition home or self-care (01) ==
PROVIDERS: PCP Internal Medicine; Visit Provider Physician Assistant Surgical
DX: R30.9 Painful micturition, unspecified (principal)
CPT/HCPCS: 81001; 87086; 87088

== ENCOUNTER 2022-06-18 21:41 | Emergency (ER) | payer MEDICARE, SELFPAY ==
[2022-06-18 21:42] VITALS: BP 119/81; PULSE 94; RESP 16; TEMP 36.9; O2SAT 92; BMI 32.1
--- NOTE | 2022-06-18 22:37 | RAD_ITS ---
STUDY: X-RAY CHEST REASON FOR EXAM: Female, 72 years old. Cough TECHNIQUE: PA and lateral views of the chest. COMPARISON: 02/26/2022 FINDINGS: The lungs are clear and expanded. There is no demonstrated pleural abnormality. Normal size heart. Left chest port and IVC filter remain. Normal mediastinum and jermaine. Normal visualized pulmonary arteries. Normal visualized aortic arch and descending thoracic aorta. There is no demonstrated abnormality of the visualized soft tissue structures of the upper abdomen. RAD/Chest PA and Lateral IMPRESSION: No acute abnormal cardiopulmonary finding. Electronically Signed: Williams Lr MD at 23:04 EDT ,
[2022-06-18 22:40] LABS: Absolute Lymphocyte Count 3.18 X10^3/uL (0.83-4.51); Absolute Neutrophil Count 5.1 X10^3/uL (2.0-7.7); Basophil# 0.05 X10^3/uL; Basophil% 0.5 % (0-1); Eosinophil# 0.36 X10^3/uL; Eosinophils% 3.7 % (0-5); Hematocrit 38.6 % (37-47); Hemoglobin 12.7 g/dL (12.0-15.0); Lymphocyte # 3.18 X10^3/ul (0.83-4.51); Lymphocyte % 32.3 % (19-41); Mean Corp Hgb Conc 32.9 g/dL (32-36); Mean Corpuscular Volume 103.5 fL (81-99); Mean Platelet Vol. 10.5 fl (6.2-12.0); Monocyte# 1.12 X10^3/uL; Monocyte% 11.4 % (0-10); NRBC Flagged by Analyzer 0 % (0-5); Neutrophil # 5.08 X10^3/uL (2.7-7.7); Neutrophil % 51.7 % (47-70); Platelet Count 248 K/mm3 (150-450); RBC Distribution Width CV 15.4 % (11.6-14.6); RBC Distribution Width SD 58.4 fl (35.1-43.9); Red Blood Count 3.73 M/mm3 (4.2-5.4); White Blood Count 9.8 K/mm3 (4.4-11.0)
[2022-06-18 22:51] VITALS: PULSE 96; RESP 18; RESP 20; O2SAT 95
[2022-06-18] MEDS: Albuterol 2.5 MG/3 ML VIAL.NEB. INHALATION ×3 (22:51→23:18)
--- NOTE | 2022-06-18 22:55 | EDS_ITS ---
HPI History of Present Illness Chief Complaint: Cough Detail of Chief Complaint: Cough Informant: patient Onset/Context/Timing Onset: Today Context: sudden Timing: Intermittent Quality: Positive for Wheezing; Negative for Dyspnea on exertion, Orthopnea or PND Current Severity: Mild Maximum Severity: Moderate Worsened by: Exertion and Coughing; Not Worsened By Lying flat or other Relieved by: Nothing Associated Symptoms cough, rhinorrhea, sore throat and green sputum; Negative for post nasal drip, ear pain, fever, subjective, chills, sweats, clear sputum, white sputum or yellow sputum Chest Pain: Positive for None Narrative Narrative: Patient is a 72-year-old woman who presents with cough and mild shortness of breath. She is presently on anticoagulant for DVT. She is status post bone transplant. She was diagnosed with AML. Bone transplant was in 2014. She is presently on no immunosuppressive meds. She denies documented fever. She denies headache. Denies photophobia, change in vision or blurred vision. She denies ringing in ears or decreased hearing. She denies nausea, vomiting or diarrhea. She denies abdominal pain. She denies dysuria, frequency, urgency or hematuria. She is a non-smoker. PE Risk Factors: Positive for Prior DVT or PE; Negative for Cancer, OCP + Smoking + > 35, Recent immobilization, Recent surgery or Recent travel Prior similar symptoms: Yes (Pneumonia due to) Recent Illness/Hospitalization: No [facility] Medical History AML (acute myeloid leukemia) in remission (~01/12/22) Atrial fibrillation with RVR Essential hypertension GERD (gastroesophageal reflux disease) Zpcqt-dudper-elka disease High output ileostomy History of DVT (deep vein thrombosis) (~10/2015) History of syncope Hypokalemia Hypophosphatemia Hypothyroidism Ileostomy in place Right bundle branch block Small bowel obstruction Home Medications magnesium oxide 400 mg (241.3 mg magnesium) tablet 800 mg PO BID supplement 09/08/15 [History Last Taken 01/06/22] acyclovir 400 mg tablet 400 mg PO BID prevent shingles 07/27/16 [History Last Taken 01/06/22] ergocalciferol (vitamin D2) 1,250 mcg (50,000 unit) capsule 50,000 unit PO FR supplement 07/27/16 [History Last Taken 01/02/22] estradiol 0.01% (0.1 mg/gram) vaginal cream 1 dose vaginal DAILY PRN Itching 07/26/17 [History Last Taken 02/10/20] L.acidoph, paracasei,B. lactis 10 billion cell capsule 1 ea PO DAILY probiotic 05/06/19 [History Last Taken 01/06/22] esomeprazole magnesium 40 mg capsule,delayed release 40 mg PO DAILY GERD 05/06/19 [History Last Taken 01/06/22] qpttbkrc-xus-rdkxf acid 0.4 mg-lycopene 300 mcg-lutein 250 mcg tablet 1 ea PO DAILY supplement 02/10/20 [History Last Taken 01/06/22] meclizine 25 mg tablet 25 mg PO TID vertigo 02/19/20 [History Last Taken 01/06/22] levothyroxine 100 mcg tablet 100 mcg PO DAILY #1 TAB 04/11/20 [Rx Last Taken 01/06/22] metoprolol tartrate 25 mg tablet 25 mg PO DAILY htn 01/08/22 [History Last Taken 01/06/22] sodium bicarbonate 650 mg tablet 650 mg PO BID #10 tabs 01/15/22 [Rx Last Taken Unknown] nitrofurantoin monohydrate/macrocrystals 100 mg capsule 100 mg PO Q12 #10 CAPSULES 05/13/22 [Rx Last Taken Unknown] oxycodone-acetaminophen 5 mg-325 mg tablet (Percocet) 1 tab PO Q6H PRN pain 3 days #10 tabs 05/15/22 [Rx Last Taken Unknown] sulfamethoxazole 800 mg-trimethoprim 160 mg tablet (Bactrim DS) 1 tab PO BID #20 tabs 05/15/22 [Rx Last Taken Unknown] albuterol sulfate 90 mcg/actuation aerosol inhaler (Ventolin HFA) 2 puff inhalation Q4H PRN PRN Wheezing ##1 06/18/22 [Rx Last Taken Unknown] doxycycline monohydrate 100 mg capsule 100 mg PO BID #10 CAPSULES 06/18/22 [Rx Last Taken Unknown] prednisone 20 mg tablet 60 mg PO DAILY #12 TABLETS 06/18/22 [Rx Last Taken Unknown] Allergy/AdvReac Type Severity Reaction Status Date / Time Gadolinium-MRI Contrast Allergy Hives Verified 06/18/22 21:47 Medium [CONTRAST] Iodinated Contrast Media Allergy Hives Verified 06/18/22 21:47 [Iodinated Contrast Media - IV Dye] iodine Allergy Hives Verified 06/18/22 21:47 teriparatide [From Forteo] AdvReac Unknown Other Verified 06/18/22 21:47 Surgical History Bone marrow transplant status History of total colectomy Social History (Updated 06/18/22 @ 22:[address] Jitendra Charlton MD) Smoking Status: Never smoker substance use type: does not use ROS ROS ED Constitutional Constitutional ED: Denies chills, fever(s), sweats or weight loss Eyes Eyes: Denies blurry vision, change in vision or diplopia ENT ENT ED: Reports rhinorrhea; Denies ear pain or sore throat Cardiovascular Cardiovascular: Denies chest pain, orthopnea, palpitations or paroxysmal nocturnal dyspnea Respiratory/Chest Respiratory/Chest: Reports cough, dyspnea, dyspnea on exertion and sputum; Denies orthopnea or paroxysmal nocturnal dyspnea Gastrointestinal Gastrointestinal: Denies abdominal pain, constipation, diarrhea, nausea or vomiting Genitourinary Genitourinary ED: Denies dysuria, hematuria or urinary frequency Musculoskeletal Musculoskeletal: Denies arthralgias, back pain, myalgias or neck pain Integumentary Denies abscess, Abrasions or rash Neurologic Neurologic: Reports headache(s); Denies paresthesias or weakness Psychiatric Psychiatric: Denies anxiety or depression Endocrine Endocrinology: Denies cold intolerance or heat intolerance Hematologic/Lymphatic Hematologic/Lymphatic: Denies easy bleeding or easy bruising EXAM Physical Exam Const Vital Signs: 06/18/22 21:42 06/18/22 21:59 Temperature 98.5 F Temperature Source Temporal Pulse Rate 94 Respiratory Rate 16 Respiratory Effort Normal Non-Labored Respiratory Depth Normal Respiratory Pattern Normal Blood Pressure 119/81 H Blood Pressure Mean 93 Pulse Ox 92 Oxygen Delivery Method Room Air Positive well nourished and well developed; Negative for cachectic, contractures or unkempt General Appearance ED: well developed and NAD; Negative for unkempt, cachectic, contractures or pallor Nutritional Appearance: Negative for cachectic HEENT Reports moist mucous membranes HEENT Narrative: Head is atraumatic normocephalic. Ears normal. Nares patent. There is clear drainage noted. Steer pharynx out erythema or exudate. Uvula midline. No deviation tongue with protrusion. Eyes PERRL and EOMs intact bilaterally General Eye ED: Negative for pale conjunctiva or scleral icterus Neck no lymphadenopathy, supple, no meningeal signs and no JVD Resp normal respiratory effort and No clear to auscultation bilaterally Effort and Inspection: Negative for pain with movement Auscultation: rales right base and left lower and wheezes expiratory wheezes and lower bilaterally Cardio regular rate, regular rhythm, S1 normal heart sound, S2 normal heart sound and no murmurs GI non-tender, non-distended and no masses Auscultation: normoactive bowel sounds Palpation: soft Back/Spine no CVA tenderness and normal to inspection Extremity normal to inspection General Extremety ED: Yes tenderness; Negative for edema or other findings General Extremity: Negative for edema or other findings Neuro oriented x3, CN's II-XII intact bilaterally and no sensory deficits noted Barry Coma Scale: document GCS findings Spontaneous Obeys Commands Oriented 15 Sensorium / Orientation: alert Speech: speech normal Motor Exam: strength 5/5 throughout Psych mental status grossly normal Appearance: Negative for unkempt Thought Process: normal thought process Skin no wounds and No skin turgor normal General Skin Exam: Negative for jaundice or pallor Lesions: no lesions Rashes: no rashes MDM MDM MDM Narrative Medical decision making narrative: Patient presents with respiratory symptoms. Since she is wheezing she was treated with albuterol. Since she has history of prior pneumonia and has bilateral rales will obtain chest x-ray. CBC was obtained to assess white count as well as H&H. Basic metabolic panel was obtained to assess renal function. Since patient is on Eliquis coags were not ordered. Clinically patient has pneumonia. Her wheezing improved with albuterol. Since she still has slight wheeze we will discharge with prescription for doxycycline, prednisone and metered-dose inhaler. 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 Lab Data Attestation: I reviewed the patient's lab results. Lab results narrative: CBC is unremarkable. White count is normal. Differential is normal. MCV is elevated 103.5. RDW standard deviation is significantly elevated. Labs: Laboratory Results - last 24 hr 06/18/22 06/18/22 06/18/22 22:27 22:27 22:27 WBC 9.8 RBC 3.73 L Hgb 12.7 Hct 38.6 MCV 103.5 H MCH 34.0 H MCHC 32.9 RDW Std Deviation 58.4 H RDW Coeff of Saloni 15.4 H Plt Count 248 MPV 10.5 Immature Gran % (Auto) 0.400 Neut % (Auto) 51.7 Lymph % (Auto) 32.3 [place] % (Auto) 11.4 H Eos % (Auto) 3.7 Baso % (Auto) 0.5 Absolute Neuts (auto) 5.1 Absolute Lymphs (auto) 3.18 Nucleated RBC % 0 Sodium 140 Potassium 3.6 Chloride 106 Carbon Dioxide 26.0 Anion Gap 8 BUN 20 H Creatinine 0.81 Estim Creat Clear Calc 70.25 Est GFR (MDRD) Af Amer 89 Est GFR (MDRD) Non-Af 74 BUN/Creatinine Ratio 24.6 H Glucose 104 Lactic Acid 0.8 Calcium 8.9 Total Bilirubin 0.30 AST 29 ALT 35 Alkaline Phosphatase 104 Total Protein 7.0 Albumin 3.1 L Globulin 3.9 Albumin/Globulin Ratio 0.8 L Radiography Chest X-Ray - ED: 2 View and Read by ED Physician (The 2 view x-ray was independently reviewed and interpreted by me as negative for acute process. Patient has evidence of bronchiectasis on the right. This is unchanged from February 26, 2022. There is no effusion. Cardiac silhouette and size are unremarkable. Osseous structures are unremarkable.) Diagnostic Testing: Clinical Impression(s) from Imaging Studies Chest X-Ray 06/18/22 22:37 IMPRESSION: No acute abnormal cardiopulmonary finding. Electronically Signed: Williams Lr MD at 23:04 EDT , Discharge Plan Triage Chief Complaint: Cough ED Provider: Jitendra Charlton Dx/Rx/DC Orders Clinical Impression: Pneumonia, Essential hypertension, History of DVT (deep vein thrombosis), AML (acute myeloid leukemia) in remission, Bone marrow replaced by transplant, Acute bronchospasm, Anticoagulant long-term use Instructions: ED Pneumonia (Adult) Prescriptions: New prednisone 20 mg tablet 60 mg PO DAILY Qty: 12 0RF doxycycline monohydrate 100 mg capsule 100 mg PO BID Qty: 10 0RF albuterol sulfate [Ventolin HFA] 90 mcg/actuation HFA aerosol inhaler 2 puff inhalation Q4H PRN PRN (Reason: Wheezing) Qty: 1 0RF No Action meclizine 25 mg tablet 25 mg PO TID magnesium oxide 400 MG tablet 800 mg PO BID acyclovir 400 MG tablet 400 mg PO BID ergocalciferol (vitamin D2) 50,000 UNIT capsule 50,000 unit PO FR estradiol 42.5 GM cream 1 dose vaginal DAILY PRN (Reason: Itching) esomeprazole magnesium 40 MG capsule,delayed release(DR/EC) 40 mg PO DAILY L.acidoph, paracasei,B. lactis 1 EACH capsule 1 ea PO DAILY uvlcsnsv-lzj-SD-lycopen-lutein 1 EACH tablet 1 ea PO DAILY metoprolol tartrate 25 mg tablet 25 mg PO DAILY sodium bicarbonate 650 mg Tablet 650 mg PO BID Qty: 10 0RF nitrofurantoin monohyd/m-cryst [nitrofurantoin monohyd/m-cryst] 100 mg capsule 100 mg PO Q12 Qty: 10 0RF sulfamethoxazole-trimethoprim [Bactrim DS] 800-160 mg tablet 1 tab PO BID Qty: 20 0RF oxycodone-acetaminophen [Percocet] 5-325 mg tablet 1 tab PO Q6H PRN (Reason: pain) 3 Days Qty: 10 0RF levothyroxine 100 mcg tablet 100 mcg PO DAILY Qty: 1 0RF Primary Care Provider: Dorcas Prince Referrals: Frantz Moser DO [Med Staff - Active Staff] - 3-5 Days Dorcas Prince MD [Primary Care Provider] - 3-5 Days Disposition Disposition: Home, Self Care
[2022-06-18 22:58] LABS: ALB/GLOB Ratio 0.8 RATIO (0.9-2.4); AST(SGOT) 29 U/L (15-37); Alanine Aminotransfer ALT/SGPT 35 U/L (13-56); Albumin, Serum 3.1 g/dL (3.2-5.0); Alkaline Phosphatase 104 U/L (45-117); Anion Gap 8 (5-15); BUN 20 mg/dL (7-18); BUN/Creat Ratio 24.6 RATIO (10-20); Calcium,Total 8.9 mg/dL (8.5-10.1); Chloride 106 mmol/L (98-107); Creatinine, Serum 0.81 mg/dL (0.55-1.02); EST Glomerular Filtration Rate 74 mL/min (>60); Est Glom Filt Rate - Afr Amer 89 mL/min (>60); Estimated Creatinine Clearance 70.25 ml/min; Globulin 3.9 g/dL (2.2-4.2); Glucose 104 mg/dL (74-106); Potassium 3.6 mmol/L (3.5-5.1); Sodium Level 140 mmol/L (136-145)
[2022-06-18 23:00] LABS: Lactic Acid 0.8 mmol/L (0.4-1.9)
--- NOTE | 2022-06-18 23:32 | CPS ---
X2 additional Albuterol given to pt. in ER
[2022-06-18 23:35] VITALS: BP 146/72; PULSE 113; RESP 16; O2SAT 98
[2022-06-18] MEDS: Ibuprofen 600 MG Tablet PO (23:44)
[2022-06-18] MEDS: Doxycycline 100 MG CAPSULE PO (23:44)
== END 2022-06-18 23:59 | disposition home or self-care (01) ==
PROVIDERS: Emergency Provider Emergency Medicine; PCP Internal Medicine; Visit Provider Emergency Medicine
DX: J18.9 Pneumonia, unspecified organism (principal); C92.01 Acute myeloblastic leukemia, in remission; I48.91 Unspecified atrial fibrillation; Z94.6 Bone transplant status; I10 Essential (primary) hypertension; Z86.718 Personal history of other venous thrombosis and embolism; J98.01 Acute bronchospasm; Z79.01 Long term (current) use of anticoagulants; K21.9 Gastro-esophageal reflux disease without esophagitis
CPT/HCPCS: 36591; 71046; 80053; 83605; 85025; 87811; 94640; 99251; 99282; A4216; G0463

== ENCOUNTER 2022-08-12 00:47 | Emergency (ER) | payer MEDICARE, SELFPAY ==
[2022-08-12 00:49] VITALS: BP 106/79; PULSE 97; RESP 20; TEMP 37.2; O2SAT 98; BMI 34.0
--- NOTE | 2022-08-12 01:00 | EDS_ITS ---
HPI History of Present Illness Chief Complaint: Shortness of Breath Informant: patient Onset/Context/Timing Onset: Yesterday Context: sudden Timing: Continuous Quality: Positive for Wheezing Worsened by: Nothing Relieved by: Nothing Associated Symptoms cough, fever and yellow sputum; Negative for rhinorrhea, post nasal drip, ear p ain, sore throat, chills or sweats Chest Pain: Positive for None Narrative Narrative: Months with shortness of breath that began yesterday. Patient states it began rather suddenly. Patient states she has a history of bronchiectasis and has a home aerosol machine. Patient states she has been using her home aerosols with no improvement. Patient admits to a fever of 101.3. Patient states she is coughing up yellow sputum. Patient denies any chest pain. Patient states nothing makes her breathing better and nothing makes it worse. PE Risk Factors: Positive for Cancer; Negative for OCP + Smoking + > 35, Prior DVT or PE, Recent immobilization, Recent surgery or Recent travel [facility] Medical History AML (acute myeloid leukemia) in remission (~01/12/22) Atrial fibrillation with RVR Essential hypertension GERD (gastroesophageal reflux disease) Aogpm-olugxh-teso disease High output ileostomy History of DVT (deep vein thrombosis) (~10/2015) History of syncope Hypokalemia Hypophosphatemia Hypothyroidism Ileostomy in place Right bundle branch block Small bowel obstruction Home Medications magnesium oxide 400 mg (241.3 mg magnesium) tablet 800 mg PO BID supplement 09/08/15 [History Last Taken 01/06/22] ergocalciferol (vitamin D2) 1,250 mcg (50,000 unit) capsule 50,000 unit PO FR supplement 07/27/16 [History Last Taken 01/02/22] estradiol 0.01% (0.1 mg/gram) vaginal cream 1 dose vaginal DAILY PRN Itching 07/26/17 [History Last Taken 02/10/20] L.acidoph, paracasei,B. lactis 10 billion cell capsule 1 ea PO DAILY probiotic 05/06/19 [History Last Taken 01/06/22] esomeprazole magnesium 40 mg capsule,delayed release 40 mg PO DAILY GERD 05/06/19 [History Last Taken 01/06/22] ispqhsku-ett-lzpjo acid 0.4 mg-lycopene 300 mcg-lutein 250 mcg tablet 1 ea PO DAILY supplement 02/10/20 [History Last Taken 01/06/22] meclizine 25 mg tablet 25 mg PO TID vertigo 02/19/20 [History Last Taken 01/06/22] levothyroxine 100 mcg tablet 100 mcg PO DAILY #1 TAB 04/11/20 [Rx Last Taken 01/06/22] metoprolol tartrate 25 mg tablet 25 mg PO DAILY htn 01/08/22 [History Last Taken 01/06/22] sodium bicarbonate 650 mg tablet 650 mg PO BID #10 tabs 01/15/22 [Rx Last Taken Unknown] nitrofurantoin monohydrate/macrocrystals 100 mg capsule 100 mg PO Q12 #10 CAPSULES 05/13/22 [Rx Last Taken Unknown] oxycodone-acetaminophen 5 mg-325 mg tablet (Percocet) 1 tab PO Q6H PRN pain 3 days #10 tabs 05/15/22 [Rx Last Taken Unknown] sulfamethoxazole 800 mg-trimethoprim 160 mg tablet (Bactrim DS) 1 tab PO BID #20 tabs 05/15/22 [Rx Last Taken Unknown] albuterol sulfate 90 mcg/actuation aerosol inhaler (Ventolin HFA) 2 puff inhalation Q4H PRN PRN Wheezing ##1 06/18/22 [Rx Last Taken Unknown] doxycycline monohydrate 100 mg capsule 100 mg PO BID #10 CAPSULES 06/18/22 [Rx Last Taken Unknown] prednisone 20 mg tablet 60 mg PO DAILY #12 TABLETS 06/18/22 [Rx Last Taken Unknown] apixaban 5 mg (74 tabs) tablets in a dose pack (Eliquis DVT-PE Treat 30D Start) 10 mg PO BID 08/12/22 [History Last Taken Unknown] Allergy/AdvReac Type Severity Reaction Status Date / Time Gadolinium-MRI Contrast Allergy Hives Verified 08/12/22 00:49 Medium [CONTRAST] Iodinated Contrast Media Allergy Hives Verified 08/12/22 00:49 [Iodinated Contrast Media - IV Dye] iodine Allergy Hives Verified 08/12/22 00:49 teriparatide [From Forteo] AdvReac Unknown Other Verified 08/12/22 00:49 Surgical History Bone marrow transplant status History of total colectomy Social History Smoking Status: Never smoker substance use type: does not use ROS ROS ED Constitutional Constitutional ED: Reports fever(s); Denies chills Eyes Eyes: Reports blurry vision; Denies diplopia ENT ENT ED: Denies rhinorrhea or sore throat Cardiovascular Cardiovascular: Denies chest pain or palpitations Respiratory/Chest Respiratory/Chest: Reports cough and dyspnea Gastrointestinal Gastrointestinal: Denies nausea or vomiting Genitourinary Genitourinary ED: Denies dysuria or hematuria Musculoskeletal Musculoskeletal: Denies back pain or neck pain Integumentary Denies abscess or rash Neurologic Neurologic: Denies headache(s) or weakness Allergic/Immunologic Allergic/Immunologic ED: Denies mouth swelling or urticaria EXAM Physical Exam Const Vital Signs: 08/12/22 00:49 08/12/22 01:09 08/12/22 01:09 Temperature 98.9 F Temperature Source Temporal Pulse Rate 97 101 H Respiratory Rate 20 H 18 20 H Respiratory Effort Normal Short of Breath Respiratory Depth Normal Respiratory Pattern Normal Normal Blood Pressure 106/79 Blood Pressure Mean 88 Pulse Ox 98 95 Oxygen Delivery Method Room Air Room Air 08/12/22 02:11 08/12/22 02:01 Temperature 98.9 F Temperature Source Temporal Pulse Rate 89 Respiratory Rate 18 Respiratory Effort Normal Non-Labored Respiratory Depth Normal Respiratory Pattern Normal Blood Pressure 90/66 Blood Pressure Mean 74 Pulse Ox 93 Oxygen Delivery Method Room Air Room Air Positive well nourished, well developed and obese General Appearance ED: well developed and NAD Nutritional Appearance: obese HEENT Reports moist mucous membranes Neck supple and no JVD Resp normal respiratory effort Auscultation: wheezes throughout Cardio regular rate, regular rhythm and no murmurs GI normal to inspection, nondistended, normoactive bowel sounds and non-tender Palpation: soft Extremity normal to inspection General Extremety ED: Negative for edema or tenderness General Extremity: Negative for edema Neuro oriented x3, CN's II-XII intact bilaterally and no sensory deficits noted Sensorium / Orientation: alert Motor Exam: strength 5/5 throughout Psych mental status grossly normal Skin no rashes or lesions noted MDM MDM MDM Narrative Medical decision making narrative: Patient was given a DuoNeb aerosol here. CBC was within normal limits. Basic metabolic profile was essentially within normal limits. PA and lateral chest x- ray was obtained. There are 2 views. On my interpretation, lung hammond are clear. There is normal cardiac silhouette. Bony thorax is normal. There is no acute process noted. Radiologist also interpreted the x-ray and agrees. Patient is feeling better on reevaluation. Patient was instructed to continue her inhalers and aerosols at home. Patient was instructed to follow-up with her primary care physician in 5 to 7 days. Patient understood and was agreeable with the plan. All questions were answered. Lab Data Attestation: I reviewed the patient's lab results. Labs: Laboratory Results - last 24 hr 08/12/22 08/12/22 01:35 01:35 WBC 8.6 RBC 3.98 L Hgb 14.4 Hct 39.7 MCV 99.7 H MCH 36.2 H MCHC 36.3 H RDW Std Deviation 53.0 H RDW Coeff of Saloni 14.5 Plt Count 222 MPV 10.1 Immature Gran % (Auto) 0.200 Neut % (Auto) 41.4 L Lymph % (Auto) 42.9 H [place] % (Auto) 13.0 H Eos % (Auto) 2.0 Baso % (Auto) 0.5 Absolute Neuts (auto) 3.6 Absolute Lymphs (auto) 3.71 Nucleated RBC % 0 Sodium 138 Potassium 3.6 Chloride 106 Carbon Dioxide 24.0 Anion Gap 8 BUN 25 H Creatinine 0.93 Estim Creat Clear Calc 64.82 Est GFR (MDRD) Af Amer 77 Est GFR (MDRD) Non-Af 63 BUN/Creatinine Ratio 27.0 H Glucose 146 H Calcium 8.7 Radiography Chest X-Ray - ED: 2 View, Read by ED Physician, Read by Radiologist, No Acute Disease and Chronic Changes Diagnostic Testing: Clinical Impression(s) from Imaging Studies Chest X-Ray 08/12/22 01:03 IMPRESSION: Degenerative changes, as described above. No demonstrated acute cardiopulmonary process. Electronically Signed: Sebas Godfrey MD at 2:04 EST , Discharge Plan Triage Chief Complaint: Shortness of Breath ED Provider: Jasvir Spaulding Dx/Rx/DC Orders Clinical Impression: Reactive airway disease, Viral upper respiratory tract infection with cough Instructions: ED URI, Viral W/ Wheezing (Adult) Prescriptions: No Action meclizine 25 mg tablet 25 mg PO TID magnesium oxide 400 MG tablet 800 mg PO BID ergocalciferol (vitamin D2) 50,000 UNIT capsule 50,000 unit PO FR estradiol 42.5 GM cream 1 dose vaginal DAILY PRN (Reason: Itching) esomeprazole magnesium 40 MG capsule,delayed release(DR/EC) 40 mg PO DAILY L.acidoph, paracasei,B. lactis 1 EACH capsule 1 ea PO DAILY ijhdmlxp-hzi-LQ-lycopen-lutein 1 EACH tablet 1 ea PO DAILY metoprolol tartrate 25 mg tablet 25 mg PO DAILY sodium bicarbonate 650 mg Tablet 650 mg PO BID Qty: 10 0RF nitrofurantoin monohyd/m-cryst [nitrofurantoin monohyd/m-cryst] 100 mg capsule 100 mg PO Q12 Qty: 10 0RF sulfamethoxazole-trimethoprim [Bactrim DS] 800-160 mg tablet 1 tab PO BID Qty: 20 0RF oxycodone-acetaminophen [Percocet] 5-325 mg tablet 1 tab PO Q6H PRN (Reason: pain) 3 Days Qty: 10 0RF prednisone 20 mg tablet 60 mg PO DAILY Qty: 12 0RF doxycycline monohydrate 100 mg capsule 100 mg PO BID Qty: 10 0RF albuterol sulfate [Ventolin HFA] 90 mcg/actuation HFA aerosol inhaler 2 puff inhalation Q4H PRN PRN (Reason: Wheezing) Qty: 1 0RF Eliquis DVT-PE Treat 30D Start 5 mg (74 tabs) tablets,dose pack 10 mg PO BID Label Comments: take 2 tablets by mouth twice a day for 7 days then 1 take tablet twice a day THEREAFTER levothyroxine 100 mcg tablet 100 mcg PO DAILY Qty: 1 0RF Primary Care Provider: Dorcas Prince Referrals: Dorcas Prince MD [Primary Care Provider] - 5-7 Days Disposition Disposition: Home, Self Care
--- NOTE | 2022-08-12 01:03 | RAD_ITS ---
STUDY: X-RAY CHEST REASON FOR EXAM: Female, 72 years old. Cough TECHNIQUE: Frontal and lateral views of the chest. COMPARISON: None. FINDINGS: MediPort on the left in good position. Increased perihilar bronchial markings suggesting chronic bronchitis. Subsegmental opacities in the lung bases. There is no demonstrated pleural abnormality. Normal size heart. Normal mediastinum and jermaine. Normal visualized pulmonary arteries. Normal visualized aortic arch and descending thoracic aorta. Normal visualized thoracic spine. There is degenerative osteoarthritis of the bilateral shoulders. There is no demonstrated abnormality of the visualized soft tissue structures of the upper abdomen. RAD/Chest PA and Lateral IMPRESSION: Degenerative changes, as described above. No demonstrated acute cardiopulmonary process. Electronically Signed: Sebas Godfrey MD at 2:04 EST ,
[2022-08-12 01:09] VITALS: PULSE 101; RESP 18; RESP 20; O2SAT 95
[2022-08-12] MEDS: Ipratropium/Albuterol Sulfate 3 ML AMPUL.NEB INHALATION (01:09)
[2022-08-12 01:40] LABS: Absolute Lymphocyte Count 3.71 X10^3/uL (0.83-4.51); Absolute Neutrophil Count 3.6 X10^3/uL (2.0-7.7); Basophil# 0.04 X10^3/uL; Basophil% 0.5 % (0-1); Eosinophil# 0.17 X10^3/uL; Hematocrit 39.7 % (37-47); Hemoglobin 14.4 g/dL (12.0-15.0); Lymphocyte # 3.71 X10^3/ul (0.83-4.51); Lymphocyte % 42.9 % (19-41); Mean Corp Hgb Conc 36.3 g/dL (32-36); Mean Corpuscular Hgb 36.2 pg (27.0-32.0); Mean Corpuscular Volume 99.7 fL (81-99); Mean Platelet Vol. 10.1 fl (6.2-12.0); Monocyte# 1.12 X10^3/uL; NRBC Flagged by Analyzer 0 % (0-5); Neutrophil # 3.58 X10^3/uL (2.7-7.7); Neutrophil % 41.4 % (47-70); Platelet Count 222 K/mm3 (150-450); RBC Distribution Width CV 14.5 % (11.6-14.6); Red Blood Count 3.98 M/mm3 (4.2-5.4); White Blood Count 8.6 K/mm3 (4.4-11.0)
[2022-08-12 01:57] LABS: Anion Gap 8 (5-15); BUN 25 mg/dL (7-18); Calcium,Total 8.7 mg/dL (8.5-10.1); Chloride 106 mmol/L (98-107); Creatinine, Serum 0.93 mg/dL (0.55-1.02); EST Glomerular Filtration Rate 63 mL/min (>60); Est Glom Filt Rate - Afr Amer 77 mL/min (>60); Estimated Creatinine Clearance 64.82 ml/min; Glucose 146 mg/dL (74-106); Potassium 3.6 mmol/L (3.5-5.1); Sodium Level 138 mmol/L (136-145)
[2022-08-12 02:01] VITALS: BP 90/66; PULSE 89; RESP 18; TEMP 37.2; O2SAT 93
[2022-08-12 03:11] VITALS: BP 95/76; PULSE 76; RESP 18; O2SAT 95
== END 2022-08-12 03:12 | disposition home or self-care (01) ==
PROVIDERS: Emergency Provider Emergency Medicine; PCP Internal Medicine; Visit Provider Emergency Medicine
DX: J06.9 Acute upper respiratory infection, unspecified (principal); I48.91 Unspecified atrial fibrillation; I10 Essential (primary) hypertension; J45.909 Unspecified asthma, uncomplicated; R05.9 Cough, unspecified; E03.9 Hypothyroidism, unspecified
CPT/HCPCS: 36591; 71046; 80048; 85025; 87428; 94640; 99251; 99285; G0463

== ENCOUNTER 2022-08-23 13:49 | Observation (INO) | payer MEDICARE, SELFPAY ==
[2022-08-23] VITALS (7 sets, daily range): BP systolic 93–109; BP diastolic 60–98; PULSE 73–111; RESP 16–20; TEMP 36.3–36.9; O2SAT 92–96; BMI 35.5; BMI 31.8
--- NOTE | 2022-08-23 14:08 | EDS_ITS ---
HPI <PALOMA Sequeira - Last Filed: 08/23/22 17:35> History of Present Illness Chief Complaint: General Illness Narrative Narrative: 72-year-old female with history of leukemia, hypertension on Eliquis hypothyroidism history of ileostomy presents to the emergency department for ongoing cough, shortness of breath, weakness. Patient states she was seen here, was discharged home, then went to [place] and was admitted for 2 days. Patient was diagnosed with pulmonary hypertension, was placed on a short course of steroids given amoxicillin and then discharged. Patient states today, she continues to feel short of breath, she continues to have a cough and feels overly continued. Patient does have bilateral hearing aids, she is very hard of hearing secondary to a cardiac issue multiple years ago. She is here with her . [facility] <PALOMA Sequeira - Last Filed: 08/23/22 17:35> [facility] Medical History (Updated 08/23/22 @ 17:15 by PALOMA Sequeira) AML (acute myeloid leukemia) in remission (~01/12/22) Atrial fibrillation with RVR Essential hypertension GERD (gastroesophageal reflux disease) Zivmt-zvyzjy-eckp disease High output ileostomy History of DVT (deep vein thrombosis) (~10/2015) History of syncope Hypokalemia Hypophosphatemia Hypothyroidism Ileostomy in place Right bundle branch block Small bowel obstruction Home Medications magnesium oxide 400 mg (241.3 mg magnesium) tablet 200 mg PO BID supplement 09/08/15 [History Last Taken 01/06/22] L.acidoph, paracasei,B. lactis 10 billion cell capsule 1 ea PO DAILY probiotic 05/06/19 [History Last Taken 01/06/22] esomeprazole magnesium 40 mg capsule,delayed release 40 mg PO DAILY GERD 05/06/19 [History Last Taken 01/06/22] metoprolol tartrate 25 mg tablet 25 mg PO DAILY htn 01/08/22 [History Last Taken 01/06/22] apixaban 5 mg tablet 5 mg PO BID 08/23/22 [History Last Taken Unknown] cholecalciferol (vitamin D3) 50 mcg (2,000 unit) tablet 50 mcg PO DAILY 08/23/22 [History Last Taken Unknown] levothyroxine 100 mcg tablet 112 mcg PO DAILY 08/23/22 [History Last Taken Unknown] Allergy/AdvReac Type Severity Reaction Status Date / Time Gadolinium-MRI Contrast Allergy Hives Verified 08/23/22 13:49 Medium [CONTRAST] Iodinated Contrast Media Allergy Hives Verified 08/23/22 13:49 [Iodinated Contrast Media - IV Dye] iodine Allergy Hives Verified 08/23/22 13:49 teriparatide [From Forteo] AdvReac Unknown Other Verified 08/23/22 13:49 Family History (Updated 08/23/22 @ 17:[address] Gloria Constantino MD) Mother Diabetes Heart disease Father Cancer Liver CA, age 84. Alcoholism Surgical History (Updated 08/23/22 @ 17:[address] Gloria Constantino MD) Bone marrow transplant status H/O ileostomy History of total colectomy Social History (Updated 08/23/22 @ 17:[address] Gloria Constantino MD) household members: spouse Smoking Status: Never smoker alcohol intake: never substance use type: does not use ROS <PALOMA Sequeira - Last Filed: 08/23/22 17:35> ROS ED ROS Narrative Constitutional: Negative for fever, chills, weight loss. Positive for weakness Eyes: Negative for vision loss, vision change, double vision ENT: Negative for any sore throat, congestion. Positive bilateral ear pain Cardiovascular: Negative for any chest pain, tightness, palpitations Respiratory: Negative for any sputum production, hemoptysis.positive for cough, dyspnea, dyspnea on exertion, orthopnea Gastrointestinal: Negative for any abdominal pain, nausea, vomiting, diarrhea, constipation, blood in stool, blood in vomit : Negative for any urinary frequency, dysuria, retention, blood in urine Muscle skeletal: Negative for any muscle joint pain, stiffness, arthralgias, neck pain, back pain. Positive for myalgias Neurological: Negative for any headache, syncope, numbness or tingling, dizziness Skin: Negative for any rashes, lumps, itching, abrasions, lacerations Psychiatric: Negative for any depression, anxiety, stress, suicidal ideation, homicidal ideation Hematologic: Negative for any easy bruising, excessive bruising, easy bleeding Allergies: Negative for any eczema, hives, rash EXAM <PALOMA Sequeira - Last Filed: 08/23/22 17:35> Physical Exam Narrative Exam Narrative: Vital signs reviewed. Patient's heart rate is 110, vital signs are stable. Patient is tachypneic, very anxious and tearful. HEET: Head normocephalic atraumatic, TMs clear bilaterally. Posterior pharynx is clear, moist mucous membranes. Nares clear bilaterally. Neck: Supple with no lymphadenopathy or tenderness. No signs of meningismus, negative jolt sign. Cardiac: Tachycardic rate no murmurs gallops or rubs, equal peripheral pulses bilaterally. Respiratory: Lungs clear to auscultation bilaterally. No chest tenderness. Tachypnea Abdomen: Soft, nontender, nondistended. No abdominal bruit or pulsatile masses. No hepatosplenomegaly, ileostomy present Extremities: No peripheral edema, no signs of gross trauma or deformity. Active full range of motion of all extremities. Neuro: Cranial nerves II through XII intact, no focal neurological deficits. Skin: Clean dry and intact with no rash, purpura, petechiae, vesicles or pustules. Backs/flank: No CVA tenderness, no midline spinal tenderness, no deformity. Psych: Normal mood and affect. No SI, HI or acute psychosis. Const Vital Signs: 08/23/22 13:50 08/23/22 14:35 08/23/22 14:36 Temperature 97.8 F 97.3 F L Temperature Source Temporal Oral Pulse Rate 111 H 101 H Respiratory Rate 18 20 H Respiratory Effort Normal Non-Labored Respiratory Pattern Normal Blood Pressure 93/60 109/98 H Blood Pressure Mean 71 101 Pulse Ox 95 96 Oxygen Delivery Method Room Air Room Air 08/23/22 14:46 08/23/22 16:00 Temperature 97.4 F L Temperature Source Oral Pulse Rate 82 80 Respiratory Rate 20 H 19 H Respiratory Effort Respiratory Pattern Normal Blood Pressure 102/72 Blood Pressure Mean 82 Pulse Ox 93 Oxygen Delivery Method Room Air Positive well nourished and well developed General Appearance ED: well developed <Dr. Jasvir Spaulding, DO - Last Filed: 08/23/22 16:47> Physical Exam Const Vital Signs: 08/23/22 13:50 08/23/22 14:35 08/23/22 14:36 Temperature 97.8 F 97.3 F L Temperature Source Temporal Oral Pulse Rate 111 H 101 H Respiratory Rate 18 20 H Respiratory Effort Normal Non-Labored Respiratory Pattern Normal Blood Pressure 93/60 109/98 H Blood Pressure Mean 71 101 Pulse Ox 95 96 Oxygen Delivery Method Room Air Room Air 08/23/22 14:46 08/23/22 16:00 Temperature 97.4 F L Temperature Source Oral Pulse Rate 82 80 Respiratory Rate 20 H 19 H Respiratory Effort Respiratory Pattern Normal Blood Pressure 102/72 Blood Pressure Mean 82 Pulse Ox 93 Oxygen Delivery Method Room Air [facility] <[address] [facility] - Last Filed: 08/23/22 17:35> [facility] Lab Data Labs: Laboratory Results - last 24 hr 08/23/22 08/23/22 08/23/22 14:50 14:50 14:50 WBC 11.7 H RBC 4.91 Hgb 16.1 H Hct 48.2 H MCV 98.2 MCH 32.8 H MCHC 33.4 RDW Std Deviation 51.9 H RDW Coeff of Saloni 14.5 Plt Count 362 MPV 10.4 Immature Gran % (Auto) 0.600 Neut % (Auto) 54.3 Lymph % (Auto) 31.1 [place] % (Auto) 13.2 H Eos % (Auto) 0.6 Baso % (Auto) 0.2 Absolute Neuts (auto) 6.3 Absolute Lymphs (auto) 3.63 Nucleated RBC % 0 Differential Comment SCANNED Diff Path Review May foll Sodium 137 Potassium 3.3 L Chloride 111 H Carbon Dioxide 16.0 L Anion Gap 10 BUN 56 H Creatinine 1.62 H Estim Creat Clear Calc 38.82 Est GFR (MDRD) Af Amer 40 L Est GFR (MDRD) Non-Af 33 L BUN/Creatinine Ratio 34.6 H Glucose 117 H Calcium 8.7 Troponin I High Sens 12 B-Natriuretic Peptide 9.8 Radiography Diagnostic Testing: Clinical Impression(s) from Imaging Studies Chest CTA 08/23/22 14:42 IMPRESSION: Normal CTA chest examination, without a demonstrated pulmonary embolism or arterial dissection. No acute pulmonary findings. Electronically Signed: Jose L Taylor MD at 15:58 EST , Treatment and Re-Evaluation Narrative: Patient arrives very anxious, patient's vital signs are stable. Patient presents with multiple complaints such as cough, congestion, worsening shortness of breath. Patient states that she also feels very weak. She received a full work-up. Patient's laboratory studies show slight leukocytosis with a white blood count 11.7, hemoglobin 16.1. Patient's chemistry shows slight hypokalemia, patient's renal function was slightly elevated to 1.62, 1.5 weeks ago 0.9. Patient's troponin was negative, proBNP was unremarkable. Patient did receive breathing treatments, she did receive IV steroids secondary to being allergic to CT dye, she did receive a CT scan of the chest to rule out any pulmonary embolus, the CTA showed a normal CTA chest examination without a demonstrated pulmonary embolism or arterial dissection. On reassessment, patient was given IV fluids, I spoke with the hospitalist, patient will be admitted to [facility] in observation for acute kidney injury, bronchospasm, cough, viral syndrome. Patient is happy with the plan of care, patient stable for admission. <Dr. Jasvir Spaulding, DO - Last Filed: 08/23/22 16:47> [facility] Narrative Medical decision making narrative: I have personally performed a face to face assessment of the patient and have reviewed the ROSIE Note. I performed a substantive portion of the visit including all aspects of the following. My escoto findings include: History: Patient presents with cough, congestion, and generalized illness that has been getting worse over the past few days. Patient was recently admitted to [facility] in [place] because she had mucus building up in her lungs. Patient states that she had a CT scan done there which showed evidence of pulmonary hypertension and she was supposed to have either a heart catheterization or an echocardiogram. Patient states they did not do either of these. Patient states that she continues to have cough and congestion. Patient states she has a history of bronchiectasis. Exam: Vital signs are stable. Patient is afebrile. Patient is in no acute distress. Oral mucosa is pink and moist. Neck is supple. Trachea is midline. There is no JVD. Heart was regular rate and rhythm. Lungs were diminished bilaterally. There is adequate respiratory effort. Abdomen is soft. Bowel sounds are normal. There is no tenderness. Cranial nerves II through XII are intact. There are no focal motor or sensory deficits noted. Medical Decision Making: Patient was given IV fluids. Patient was given a DuoNeb aerosol here. Patient has a history of allergy to iodine. Because of this, patient was given Benadryl and Solu-Medrol. EKG was obtained. On my interpretation, it shows a sinus tachycardia with a rate of 102. There is right bundle branch block pattern noted. QRS interval was slightly prolonged at 122 ms. QTC was slightly prolonged at 529 ms. NE interval was normal at 138 ms. There are no acute ST or T wave changes. This was unchanged compared to previous EKG dated 01/07/2022. CBC shows a mild leukocytosis of 11.7. Basic metabolic profile shows a CO2 of 16. Chloride was 111. BUN was 56 and creatinine was 1.62. These are increased from previous results. High- sensitivity troponin was normal at 12. BNP was normal at 9.8. Patient was still having some dyspnea. CTA of the chest was obtained. There is no acute cardiopulmonary process. There is no evidence of pulmonary embolism or aortic d issection. This was interpreted by the radiologist and reviewed by myself. Case was discussed with the hospitalist. She will admit the patient to the hospital. Patient and family understood and were agreeable with the plan. All questions were answered. Lab Data Attestation: I reviewed the patient's lab results. Labs: Laboratory Results - last 24 hr 08/23/22 08/23/22 08/23/22 14:50 14:50 14:50 WBC 11.7 H RBC 4.91 Hgb 16.1 H Hct 48.2 H MCV 98.2 MCH 32.8 H MCHC 33.4 RDW Std Deviation 51.9 H RDW Coeff of [place]oni 14.5 Plt Count 362 MPV 10.4 Immature Gran % (Auto) 0.600 Neut % (Auto) 54.3 Lymph % (Auto) 31.1 [place] % (Auto) 13.2 H Eos % (Auto) 0.6 Baso % (Auto) 0.2 Absolute Neuts (auto) 6.3 Absolute Lymphs (auto) 3.63 Nucleated RBC % 0 Differential Comment SCANNED Diff Path Review January foll Sodium 137 Potassium 3.3 L Chloride 111 H Carbon Dioxide 16.0 L Anion Gap 10 BUN 56 H Creatinine 1.62 H Estim Creat Clear Calc 38.82 Est GFR (MDRD) Af Amer 40 L Est GFR (MDRD) Non-Af 33 L BUN/Creatinine Ratio 34.6 H Glucose 117 H Calcium 8.7 Troponin I High Sens 12 B-Natriuretic Peptide 9.8 Radiography Diagnostic Testing: Clinical Impression(s) from Imaging Studies Chest CTA 08/23/22 14:42 IMPRESSION: Normal CTA chest examination, without a demonstrated pulmonary embolism or arterial dissection. No acute pulmonary findings. Electronically Signed: Jose L Taylor MD at 15:58 EST Reading Location ID and State: [address] [place] [address] Tel , Service support , EKG Initial EKG: Attestation: I personally reviewed and interpreted this EKG as follows: Interpretation: No Acute Injury Pattern, Sinus Tachycardia (102) and RBBB Prior EKG tracings: available for review Prior: Unchanged (01/07/2022) Discharge Plan Dx/Rx/DC Orders Clinical Impression: Acute kidney injury, Right bundle branch block, Viral syndrome Disposition Disposition: Acute Care Hospital [facility]
--- NOTE | 2022-08-23 14:09 | EKG12_ITS ---
Test Reason : Blood Pressure : / mmHG Vent. Rate : 102 BPM Atrial Rate : 102 BPM P-R Int : 138 ms QRS Dur : 122 ms QT Int : 406 ms P-R-T Axes : 047 249 039 degrees QTc Int : 529 ms Sinus tachycardia Right bundle branch block Abnormal ECG Confirmed by RUBENS CABA, SANDRA ([id number]), medical transcription editor LINDA CONTRERAS ([id number]) on 08/24/2022 10:05:36 AM Referred By: Confirmed By:SANDRA ART MD
[2022-08-23] MEDS: 0.9% Normal Saline 1,000 ML 999 ML IV (14:30)
[2022-08-23] MEDS: Albuterol 2.5 MG/3 ML VIAL.NEB. INHALATION (14:38)
[2022-08-23] MEDS: Ipratropium/Albuterol Sulfate 3 ML AMPUL.NEB INHALATION (14:39)
--- NOTE | 2022-08-23 14:42 | CT_ITS ---
STUDY: CTA CHEST REASON FOR EXAM: Female, 72 years old. Cough RADIATION DOSAGE (If Supplied By Facility): CTDIvol = ( 8.65 ) mGy, DLP = ( 360.37 ) mGycm TECHNIQUE: The examination was performed with the intravenous administration of 100mL Isovue-370. Post-processing of the angiographic images was performed, with multiplanar reformation and 3D reconstruction. Individualized dose optimization techniques were used for this CT. COMPARISON: None. FINDINGS: Normal enhancement of the main pulmonary artery and right and left pulmonary arteries. Normal enhancement of the bilateral peripheral pulmonary arteries. There is no demonstrated pulmonary embolism. Normal thoracic aorta and visualized great vessels. There is no demonstrated aortic dissection. Normal heart and pericardium. Transvenous pacemaker. Normal mediastinum. Normal hilar regions. Normal visualized trachea and bronchi. Patchy bibasilar dependent and/or fibrotic changes. No consolidations or mass lesions. No pleural effusions. Normal chest wall structures. No acute or aggressive osseous abnormality. Diffuse hepatic steatosis. No acute findings in the upper abdomen. Small hiatal hernia. CT/CTA Chest W/WO Contrast IMPRESSION: Normal CTA chest examination, without a demonstrated pulmonary embolism or arterial dissection. No acute pulmonary findings. Electronically Signed: Jose L Taylor MD at 15:58 EST ,
[2022-08-23 14:57] LABS: Absolute Lymphocyte Count 3.63 X10^3/uL (0.83-4.51); Absolute Neutrophil Count 6.3 X10^3/uL (2.0-7.7); Basophil# 0.02 X10^3/uL; Basophil% 0.2 % (0-1); Eosinophil# 0.07 X10^3/uL; Eosinophils% 0.6 % (0-5); Hematocrit 48.2 % (37-47); Hemoglobin 16.1 g/dL (12.0-15.0); Lymphocyte # 3.63 X10^3/ul (0.83-4.51); Lymphocyte % 31.1 % (19-41); Mean Corp Hgb Conc 33.4 g/dL (32-36); Mean Corpuscular Hgb 32.8 pg (27.0-32.0); Mean Corpuscular Volume 98.2 fL (81-99); Mean Platelet Vol. 10.4 fl (6.2-12.0); Monocyte# 1.54 X10^3/uL; Monocyte% 13.2 % (0-10); NRBC Flagged by Analyzer 0 % (0-5); Neutrophil # 6.34 X10^3/uL (2.7-7.7); Neutrophil % 54.3 % (47-70); POSITIVE DIFFERENTIAL YES; Platelet Count 362 K/mm3 (150-450); RBC Distribution Width CV 14.5 % (11.6-14.6); RBC Distribution Width SD 51.9 fl (35.1-43.9); Red Blood Count 4.91 M/mm3 (4.2-5.4); White Blood Count 11.7 K/mm3 (4.4-11.0)
[2022-08-23] MEDS: MethylPREDNISolone 125 MG/2 ML Vial IV (14:59)
[2022-08-23] MEDS: DiphenhydrAMINE 50 MG/ML Syringe 25 MG IV (14:59)
[2022-08-23 15:07] LABS: Differential Indicated SCAN CRITERIA MET
[2022-08-23 15:17] LABS: Anion Gap 10 (5-15); BUN 56 mg/dL (7-18); BUN/Creat Ratio 34.6 RATIO (10-20); Calcium,Total 8.7 mg/dL (8.5-10.1); Chloride 111 mmol/L (98-107); Creatinine, Serum 1.62 mg/dL (0.55-1.02); EST Glomerular Filtration Rate 33 mL/min (>60); Est Glom Filt Rate - Afr Amer 40 mL/min (>60); Estimated Creatinine Clearance 38.82 ml/min; Glucose 117 mg/dL (74-106); Potassium 3.3 mmol/L (3.5-5.1); Sodium Level 137 mmol/L (136-145); Troponin-I HS 12 pg/mL (3.0-54.0)
[2022-08-23 15:30] LABS: BNP,B-Type NATRIURETIC PEPTIDE 9.8 pg/mL (0-100)
[2022-08-23 16:26] LABS: Differential Comment SCANNED
--- NOTE | 2022-08-23 16:56 | PCM.HP.STD ---
HPI - General General Date of Admission: 08/23/22 Date of Service: 08/23/22 Chief Complaint: Dyspnea, cough. HPI Narrative The patient is a 72 y/o F w/ PMHx: Obesity, PAF, OSH Chart Reported Diabetes mellitus type II diet controlled, HTN, HLD, Hx VTE on eliquis, Hypothyroidism, GERD, Hx Bronchiectasis, AML s/p BM transplant with wamsm-wtznja-tmsh disease which resulted in bowel perforation and resultant colectomy w/ high output ileostomy with history of ongoing fever (T max 101.3 at home), cough with yellow sputum, wheezing, dyspnea with initial evaluation on 08/12/22 in the ED with diagnosis at that time of reactive airway disease and viral syndrome discharged to home with improvement following evaluation who now re-presents to the [facility] ED on 08/23/22 with reported history of following 08/12/22 evaluation admission down in [place] x 2 days discharged on steroids and azithromycin both of which she has completed but reports ongoing dyspnea, worse with exertion and ongoing cough. From review of records, patient was admitted at [facility] 08/15/22-08/18/22 with their facility unremarkable chest x-ray no acute findings on CT chest abdomen and pelvis aside from a dilated main pulmonary artery consistent with pulmonary hypertension treated as an acute exacerbation of her bronchiectasis with empiric initial IV azithromycin with Solu-Medrol initiation in the ED with transition to prednisone therapy with as needed albuterol with recommended follow-up with Dr. Moser her mounted police officer. Work-up in the ED included T97.8, heart rate 111 initially with most recent repeat 80, BP initially 93/60 with most recent repeat 102/72, respiratory rate 18, oxygenation 93 to 96% on room air, CBC with WC 11.7, hemoglobin 16.1, platelets 362 without marked shift, BMP with potassium 3.3, chloride 111, carbon dioxide 16, BUN/creatinine 56/1.62, glucose 117, troponin 12, BNP 9.8, CTPA with no demonstrated PE or dissection or any acute cardiopulmonary findings, rapid SARS COVID and influenza antigens negative, pending full respiratory viral panel per ED staff, EKG with sinus tachycardia with right bundle branch block with no acute evidence of ischemia unchanged from prior. In the ED patient administered Solu-Medrol 125 mg IV x1, Benadryl 25 mg IV x1 (Both for hx IV contrast allergy as noted), duoneb therapy, albuterol and 1 L normal saline bolus. [facility] Medical History (Updated 08/23/22 @ 17:15 by PALOMA Sequeira) AML (acute myeloid leukemia) in remission (~01/12/22) Atrial fibrillation with RVR Essential hypertension GERD (gastroesophageal reflux disease) Incie-iuooro-ilqt disease High output ileostomy History of DVT (deep vein thrombosis) (~10/2015) History of syncope Hypokalemia Hypophosphatemia Hypothyroidism Ileostomy in place Right bundle branch block Small bowel obstruction Home Medications magnesium oxide 400 mg (241.3 mg magnesium) tablet 200 mg PO BID supplement 09/08/15 [History Last Taken 01/06/22] L.acidoph, paracasei,B. lactis 10 billion cell capsule 1 ea PO DAILY probiotic 05/06/19 [History Last Taken 01/06/22] esomeprazole magnesium 40 mg capsule,delayed release 40 mg PO DAILY GERD 05/06/19 [History Last Taken 01/06/22] metoprolol tartrate 25 mg tablet 25 mg PO DAILY htn 01/08/22 [History Last Taken 01/06/22] apixaban 5 mg tablet 5 mg PO BID 08/23/22 [History Last Taken Unknown] cholecalciferol (vitamin D3) 50 mcg (2,000 unit) tablet 50 mcg PO DAILY 08/23/22 [History Last Taken Unknown] levothyroxine 100 mcg tablet 112 mcg PO DAILY 08/23/22 [History Last Taken Unknown] Allergy/AdvReac Type Severity Reaction Status Date / Time Gadolinium-MRI Contrast Allergy Hives Verified 08/23/22 13:49 Medium [CONTRAST] Iodinated Contrast Media Allergy Hives Verified 08/23/22 13:49 [Iodinated Contrast Media - IV Dye] iodine Allergy Hives Verified 08/23/22 13:49 teriparatide [From Forteo] AdvReac Unknown Other Verified 08/23/22 13:49 Family History (Updated 08/23/22 @ 17:[address] Gloria Constantino MD) Mother Diabetes Heart disease Father Cancer Liver CA, age 84. Alcoholism Surgical History (Updated 08/23/22 @ 17:[address] Gloria Constantino MD) Bone marrow transplant status H/O ileostomy History of total colectomy Social History (Updated 08/23/22 @ 17:[address] Gloria Constantino MD) household members: spouse Smoking Status: Never smoker alcohol intake: never substance use type: does not use ROS ROS Narrative Admission Review of Systems: CONSTITUTIONAL: No weight loss, + fever, chills, weakness or fatigue. HEENT: + Congestion, facial pressure prior, sore throat. Eyes: No visual loss, blurred vision, double vision or yellow sclerae. Ears, Nose, Throat: No hearing loss, sneezing. SKIN: No rash or itching, lesions, wounds. CARDIOVASCULAR: No chest pain, chest pressure or chest discomfort, palpitations, edema, orthopnea, syncopal events. RESPIRATORY: + shortness of breath, cough with productive sputum, wheezing, No hemoptysis. GASTROINTESTINAL: + anorexia, nausea, does have ileostomy, No vomiting, abdominal pain, melena, BRBPR. GENITOURINARY: No dysuria, frequency, urgency or retention. NEUROLOGICAL: No headache, dizziness, syncope, paralysis, ataxia, numbness or tingling in the extremities, focal weakness, change in bowel or bladder control, seizure. MUSCULOSKELETAL: + muscle, back pain, joint pain or stiffness. HEMATOLOGIC: + Easy bleeding or bruising. LYMPHATICS: No enlarged nodes. No history of splenectomy. PSYCHIATRIC: + Suspected underlying anxiety. ENDOCRINOLOGIC: No reports of sweating, cold or heat intolerance. No polyuria or polydipsia. ALLERGIES:+ history of hives. Vital Signs Vital Signs Vital Signs: 08/23/22 13:50 08/23/22 14:35 08/23/22 14:36 Temperature 97.8 F 97.3 F L Temperature Source Temporal Oral Pulse Rate 111 H 101 H Respiratory Rate 18 20 H Respiratory Effort Normal Non-Labored Respiratory Pattern Normal Blood Pressure 93/60 109/98 H Blood Pressure Mean 71 101 Pulse Ox 95 96 Oxygen Delivery Method Room Air Room Air 08/23/22 14:46 08/23/22 16:00 Temperature 97.4 F L Temperature Source Oral Pulse Rate 82 80 Respiratory Rate 20 H 19 H Respiratory Effort Respiratory Pattern Normal Blood Pressure 102/72 Blood Pressure Mean 82 Pulse Ox 93 Oxygen Delivery Method Room Air Weight Weight: 170 lb 3.15 oz Body Mass Index (BMI) 35.5 Physical Exam Narrative Physical Examination: General: Awake, alert, oriented x 3 and cooperative, seated laying in the ED bed, fatigued, extremely hard of hearing. Skin: Normal color, normal turgor, no icterus, no cyanosis. HEENT: AT/NC, EOMI, PERRLA, dry MM, no carotid bruits or JVD noted. Lungs: Diminished, greater bases, decreased effort, shallow breaths, currently no rales, ronchi or wheezing. Heart: Improved, currently regular rate and rhythm; no gallop, rub audible. Abdomen: Soft, obese, NTTP, ND, status post colectomy with ileostomy, hyperactive BS, no HSM. Extremities: No cyanosis, clubbing, or edema. Neurological: Patient awake, alert, oriented as noted, cognitive function appears intact but difficult evaluation given significantly hard of hearing status; pupils equally reactive to light and accommodation, cranial nerves grossly normal, moving all 4 extremities, no focal deficits, strength moderately globally Kirsten secondary to acute presentation complaints Psychiatric: Affect appears fatigued, no acute evidence of depressive or anxiety feelings. Results Lab / Micro Data Result Diagrams: 08/23/22 14:50 08/23/22 14:50 Labs: Laboratory Results - last 24 hr 08/23/22 14:50: WBC 11.7 H, RBC 4.91, Hgb 16.1 H, Hct 48.2 H, MCV 98.2, MCH 32.8 H, MCHC 33.4, RDW Std Deviation 51.9 H, RDW Coeff of Saloni 14.5, Plt Count 362, MPV 10.4, Immature Gran % (Auto) 0.600, Neut % (Auto) 54.3, Lymph % (Auto) 31.1, Raw[place] % (Auto) 13.2 H, Eos % (Auto) 0.6, Baso % (Auto) 0.2, Absolute Neuts (auto) 6.3, Absolute Lymphs (auto) 3.63, Nucleated RBC % 0, Differential Comment SCANNED, Diff Path Review January foll 08/23/22 14:50: Sodium 137, Potassium 3.3 L, Chloride 111 H, Carbon Dioxide 16.0 L, Anion Gap 10, BUN 56 H, Creatinine 1.62 H, Estim Creat Clear Calc 38.82, Est GFR (MDRD) Af Amer 40 L, Est GFR (MDRD) Non-Af 33 L, BUN/Creatinine Ratio 34.6 H, Glucose 117 H, Calcium 8.7, Troponin I High Sens 12 08/23/22 14:50: B-Natriuretic Peptide 9.8 Micro: Microbiology 08/23/22 14:35 Nasal Secretion SARS-CoV-2 & FLU Antigen (Rapid) - Final Radiology Impression Chest CTA 08/23/22 14:42 IMPRESSION: Normal CTA chest examination, without a demonstrated pulmonary embolism or arterial dissection. No acute pulmonary findings. Electronically Signed: Jose L Taylor MD at 15:58 EST , Assessment & Plan Assessment/Plan (1) Acute kidney injury: PLAN: Plan The patient is a 72 y/o F w/ PMHx: Obesity, PAF, OSH Chart Reported Diabetes mellitus type II diet controlled, HTN, HLD, Hx VTE on eliquis, Hypothyroidism, GERD, Hx Bronchiectasis, AML s/p BM transplant with mutks-fsajfx-aaea disease which resulted in bowel perforation and resultant colectomy w/ high output ileostomy with history of ongoing fever, cough with yellow sputum, wheezing, dyspnea with initial evaluation on 08/12/22 in the ED with diagnosis at that time of reactive airway disease and viral syndrome discharged to home with improvement following evaluation, admitted [facility] 08/15/22-08/18/22 discharged on prednisone/azthromycin now re-presenting secondary to fatigue, malaise, ongoing dypsnea. #1. Recent Acute on chronic Bronchiectasis, suspected concurrent Acute Viral Syndrome: Patient with unremarkable CTPA, afebrile upon presentation, mild WBC elevation however patient on recent steroids which of recently was completed as well as azithromycin regimen. Given patient complaints and acute kidney injury will admit to medical surgical floor, maintain on IV fluids, IV Solu-Medrol administered secondary to CTPA being obtained and she recently finished steroids although does state she has occasionally still been wheezing, continue to monitor and if necessary may prolong taper however currently no acute concerns, plan judicious hydration, repeat chest x-ray a.m. to assure no developing pneumonia although low suspicion, procalcitonin requested as well as sputum culture and full respiratory panel to be cautious, will maintain on scheduled ATC budesonide as well as as needed albuterol given patient anxiety preference to avoid ATC DuoNeb therapies. #2. Acute kidney injury: Secondary to acute presentation. Admission BUN/Cr 56/1.62, prior baseline creatinine noted to be primarily 0.7-0.8. Will hydrate, hold nephrotoxic medications and repeat chemistry in AM. If no improvement would plan FeNa and renal ultrasound assessment. #3. Hypokalemia: Admission K+ 3.3, magnesium level requested, supplementation given, repeat level in AM. #4. PAF: We will continue patient home metoprolol and Eliquis regimen. As noted above plan usage of budesonide, avoiding aggressive scheduled DuoNeb therapies. #5. Hypertension: Continue home regimen including metoprolol, PRN hydralazine. #6. Hyperlipidemia: Not on statin therapy, defer to outpatient #7. History AML: Patient with history of bone marrow transplant in 2014 with unfortunate tasmn-iriuhx-vyph disease reaction at that time with associated bowel perforation and resulted in colectomy with high ostomy output. Encourage continued follow-up with oncology. #8. History bowel perforation status post colectomy with high ostomy output: We will supplement potassium given deficit as noted above, magnesium level pending, continue to monitor I's and O's. #9. Chart ([facility] noted) Reported Diabetes mellitus type II with history of steroid-induced hyperglycemia, diet controlled: Patient not on any regimen, will obtain hemoglobin A1c to be cautious, will maintain on ADA diet until A1c returns based on their records and accu check with [facility]. #10. Hx VTE: Patient with history of pulmonary embolism as well as recurrent DVT, continue Eliquis regimen. #11. Hypothyroidism: We will continue patient home levothyroxine regimen. #12. GERD: We will continue patient on PPI. #13. DVT prophylaxis: SCDs, continue home eliquis regimen. Charges/Coding Visit Charges OBSV E&M: 60100 Initial observation care L3
--- NOTE | 2022-08-23 17:38 | NURSING ---
MED SURG OBS WHITE [place]PE, VIRAL SYNDROME
[2022-08-23 18:34] LABS: Magnesium 2.5 mg/dL (1.6-2.6)
[2022-08-23 19:02] LABS: Procalcitonin 0.11 ng/mL (0.00-0.09)
[2022-08-23] MEDS: 0.9% Normal Saline 1,000 ML 125 ML IV (19:53)
[2022-08-23] MEDS: Potassium Chloride Oral Tablet 20 MEQ 40 MEQ PO (19:53)
[2022-08-23] MEDS: APIXABAN 5 MG TABLET PO (20:19)
[2022-08-23] MEDS: Insulin Lispro 100 UNIT/ML INSULN.PEN SC (20:23)
[2022-08-23 20:51] LABS: Bedside Glucose 198 mg/dL (74-106)
[2022-08-24 03:00] VITALS: BP 107/63; PULSE 80; RESP 16; TEMP 36.6; O2SAT 96
[2022-08-24] MEDS: 0.9% Normal Saline 1,000 ML 125 ML IV ×2 (03:07→11:05)
[2022-08-24 05:50] LABS: Absolute Lymphocyte Count 1.99 X10^3/uL (0.83-4.51); Absolute Neutrophil Count 4.8 X10^3/uL (2.0-7.7); Hematocrit 40.4 % (37-47); Hemoglobin 13.8 g/dL (12.0-15.0); Lymphocyte # 1.99 X10^3/ul (0.83-4.51); Lymphocyte % 27.9 % (19-41); Mean Corp Hgb Conc 34.2 g/dL (32-36); Mean Corpuscular Hgb 33.7 pg (27.0-32.0); Mean Corpuscular Volume 98.8 fL (81-99); Mean Platelet Vol. 10.8 fl (6.2-12.0); Monocyte# 0.26 X10^3/uL; Monocyte% 3.7 % (0-10); NRBC Flagged by Analyzer 0 % (0-5); Neutrophil # 4.83 X10^3/uL (2.7-7.7); Neutrophil % 67.8 % (47-70); Platelet Count 312 K/mm3 (150-450); RBC Distribution Width CV 14.5 % (11.6-14.6); RBC Distribution Width SD 52.8 fl (35.1-43.9); Red Blood Count 4.09 M/mm3 (4.2-5.4); White Blood Count 7.1 K/mm3 (4.4-11.0)
--- NOTE | 2022-08-24 05:55 | RAD_ITS ---
STUDY: X-RAY CHEST REASON FOR EXAM: Female, 72 years old. Dyspnea, cough TECHNIQUE: Single AP portable view of the chest. COMPARISON: Comparison is made with prior study 08/12/2022. FINDINGS: A left-sided portacatheter is seen with the tip at the junction of the superior vena cava and right atrium. Stable mild increased markings in the perihilar regions suggestive of scarring. No acute infiltrate is seen. There is no demonstrated pleural abnormality. Normal size heart. Normal mediastinum and jermaine. Normal visualized pulmonary arteries. There is atherosclerotic tortuosity of the aortic arch and descending thoracic aorta. There are diffuse degenerative changes of the visualized thoracic spine. Normal visualized ribs, clavicles, and shoulders. There is no demonstrated abnormality of the visualized soft tissue structures of the upper abdomen. RAD/Chest 1 View (Portable) IMPRESSION: Stable examination. No acute abnormality is seen. Electronically Signed: Ralph Morillo MD at 9:48 EST ,
[2022-08-24] MEDS: Levothyroxine 112 MCG Tablet PO (05:59)
[2022-08-24 06:26] LABS: Bedside Glucose 144 mg/dL (74-106)
[2022-08-24 06:35] LABS: ALB/GLOB Ratio 0.8 RATIO (0.9-2.4); AST(SGOT) 23 U/L (15-37); Alanine Aminotransfer ALT/SGPT 49 U/L (13-56); Albumin, Serum 2.8 g/dL (3.2-5.0); Alkaline Phosphatase 87 U/L (45-117); Anion Gap 6 (5-15); BUN 38 mg/dL (7-18); BUN/Creat Ratio 35.5 RATIO (10-20); Calcium,Total 8.4 mg/dL (8.5-10.1); Chloride 119 mmol/L (98-107); Creatinine, Serum 1.07 mg/dL (0.55-1.02); EST Glomerular Filtration Rate 54 mL/min (>60); Est Glom Filt Rate - Afr Amer 65 mL/min (>60); Estimated Creatinine Clearance 53.67 ml/min; Globulin 3.7 g/dL (2.2-4.2); Glucose 182 mg/dL (74-106); Potassium 4.9 mmol/L (3.5-5.1); Protein, Total 6.5 g/dL (6.4-8.2); Sodium Level 139 mmol/L (136-145)
[2022-08-24 07:20] VITALS: PULSE 74; RESP 16
[2022-08-24] MEDS: Budesonide Respules 0.5 MG/2 ML AMPUL.NEB. INHALATION (07:20)
[2022-08-24 09:00] VITALS: BP 113/63; PULSE 82; RESP 16; TEMP 36.5; O2SAT 97
[2022-08-24 09:44] VITALS: BP 113/63; PULSE 83
[2022-08-24] MEDS: Metoprolol Tartrate 25 MG Tablet PO (09:44)
[2022-08-24] MEDS: Cholecalciferol (VIT D3) 25 MCG TABLET (1,000 UNITS) 50 MCG PO (09:45)
[2022-08-24] MEDS: Magnesium Chloride 64 MG Delay Rel.Tablet PO (09:45)
[2022-08-24] MEDS: Pantoprazole Sodium 40 MG Tablet PO (09:45)
[2022-08-24] MEDS: APIXABAN 5 MG TABLET PO (09:45)
--- NOTE | 2022-08-24 11:20 | CASEMGMT ---
Addendum entered by Cam Barry 08/24/22 12:37: Home O2 testing has been completed. Pt does not qualify for Home O2. Msg sent to Dr Perez to notify him of same. Original Note: RN REUBEN SDET CM to room to meet with patient and , who is at bedside, for initial transition planning/care coordination assessment. MP ALEXIS introduced self and role at [facility]. Pt resting in bed in no distress at this time. Pt is very [place] and unable to a lot of what MP ALEXIS was saying to her, so she kept looking towards her to answer questions. states it is no uncommon for pt's hearing to worsen when she is ill and then hearing returns to baseline after she recovers from the illness. He states he has even had to text her some things at times for them to communicate together. Care providers, pharmacy, and demographics verified w/ at this time. PCP: Dr Prince Specialists: Dr Gresham-oncology. states pt sees too many specialists to name off. MP ALEXIS inquired what specialists she sees and he stated, Let's just leave it w/her seeing Dr Prince and Dr Gresham for now. Preferred Pharmacy: [facility] [place] [facility] Prescription Benefit: Yes Living Will/HPOA: Has done LW and HCPOA, who is her , Emigdio LNOK: , Emigdio Living Arrangements: Lives w/ in split-level home w/no steps to enter. He states she has no difficulty w/stairs. states pt is independent w/ADL's IADL's. Transportation: Pt and both drive. DME: States has the following DME: shower chair, RTS, cane, O2 @ 1-1.5 L/M @ HS, nebulizer, pulse ox, functioning glucometer w/supplies. Pt manages her own ileostomy and assists as needed. Supplies for ileostomy are delivered to pt's home and they have all the supplies needed. Has a hospital bed, walker, and rollator available, but does not use them. states no need for further DME at this time. HHC/SNF: [facility]. denies need for HHC at this time. wishes for pt to return home and states has no concerns with going home at time of discharge. CM to follow for any further discharge planning/needs. voices no further concerns/needs at this time. Advised him to ask for CM if any questions/concerns/needs arise. Voices understanding. PLAN: Home w/spousal support and discharge plans in place. Genie CAAL RN CM
[2022-08-24 11:31] VITALS: O2SAT 95; O2SAT 98
[2022-08-24 12:00] LABS: Bedside Glucose 104 mg/dL (74-106)
--- NOTE | 2022-08-24 12:10 | CASEMGMT ---
MP ALEXIS NOTE: E-mail sent to Veronica @ [facility] to verify Home O2 orders. Genie CAAL RN CM
--- NOTE | 2022-08-24 13:34 | DCINST_ITS ---
Discharge Instructions Diet Discharge Diet: No restrictions Activity Discharge Activity: Return to Normal Activity Dressing / Incision Call your doctor if you observe: Fever of 101 or Higher, Shortness of breath, Dizziness, Fainting spells, Swelling in the ankles, Chest pain and Increased palpitations (irregular heartbeat) Follow Up Care Test Results: Test results from this visit will be discussed in further detail at your follow- up appointment, if applicable. Discharge Plan Admission Admit Date/Time: 08/23/22 21:05 Attending Provider: Adarsh Turner Primary Care Provider: Dorcas Prince Consulting Providers: Gloria Constantino Discharge Orders/Prescriptions Prescriptions: New prednisone 10 mg tablet 10 mg PO DAILY Qty: 52 0RF Rx Instructions: 4 tablets daily for 5 days, 3 tablets daily for 5 days, then 2 tablets daily for 5 days, 1 tablet daily for 5 days, then half tablet daily for 4 days Continued magnesium oxide 400 MG tablet 200 mg PO BID esomeprazole magnesium 40 MG capsule,delayed release(DR/EC) 40 mg PO DAILY L.acidoph, paracasei,B. lactis 1 EACH capsule 1 ea PO QHS metoprolol tartrate 25 mg tablet 25 mg PO DAILY apixaban 5 mg Tablet 5 mg PO BID cholecalciferol (vitamin D3) 50 mcg (2,000 unit) Tablet 50 mcg PO DAILY levothyroxine 100 mcg tablet 112 mcg PO DAILY Referrals / Follow Up: Frantz Moser DO [Med Staff - Active Staff] - Within 1 Month Dorcas Prince MD [Primary Care Provider] - Within 1 Week Disposition Disposition (needs filled in before D/C Order can be placed): Home, Self Care
[2022-08-24 13:58] LABS: Pathologist Review Reviewed
[2022-08-24 14:24] VITALS: BP 106/58; PULSE 70; RESP 16; TEMP 36.6; O2SAT 99
[2022-08-24] MEDS: 0.9% Saline Lock 10 ML Syringe IV (14:39)
--- NOTE | 2022-08-24 16:04 | PCM.DC.SUM ---
Providers Date of Admission: 08/23/22 Primary Care Physician: Dr. Dorcas Prince MD Reason For Visit: VIRAL SYNDROME,BRONCHOSPASMS, PEPE Diagnosis Discharge Diagnosis (1) Acute kidney injury: Status: Acute Code(s): N17.9 - Acute kidney failure, unspecified Medications at Discharge Home Medications magnesium oxide 400 mg (241.3 mg magnesium) tablet 200 mg PO BID supplement 09/08/15 L.acidoph, paracasei,B. lactis 10 billion cell capsule 1 ea PO QHS probiotic 05/06/19 esomeprazole magnesium 40 mg capsule,delayed release 40 mg PO DAILY GERD 05/06/19 metoprolol tartrate 25 mg tablet 25 mg PO DAILY htn 01/08/22 apixaban 5 mg tablet 5 mg PO BID blood thinner 08/23/22 cholecalciferol (vitamin D3) 50 mcg (2,000 unit) tablet 50 mcg PO DAILY supplement 08/23/22 levothyroxine 100 mcg tablet 112 mcg PO DAILY thyroid 08/23/22 prednisone 10 mg tablet 10 mg PO DAILY #52 tabs 08/24/22 Hospital Course Operations None Procedures None Summary of Care Provided Minutes Spent on Discharge: 38 Hospital Course: Per HPI: The patient is a 72 y/o F w/ PMHx: Obesity, PAF, OSH Chart Reported Diabetes mellitus type II diet controlled, HTN, HLD, Hx VTE on eliquis, Hypothyroidism, GERD, Hx Bronchiectasis, AML s/p BM transplant with paqgc-wlnkon-ttlv disease which resulted in bowel perforation and resultant colectomy w/ high output ileostomy with history of ongoing fever (T max 101.3 at home), cough with yellow sputum, wheezing, dyspnea with initial evaluation on 08/12/22 in the ED with diagnosis at that time of reactive airway disease and viral syndrome discharged to home with improvement following evaluation who now re-presents to the [facility] ED on 08/23/22 with reported history of following 08/12/22 evaluation admission down in [place] x 2 days discharged on steroids and azithromycin both of which she has completed but reports ongoing dyspnea, worse with exertion and ongoing cough. From review of records, patient was admitted at [facility] 08/15/22-08/18/22 with their facility unremarkable chest x-ray no acute findings on CT chest abdomen and pelvis aside from a dilated main pulmonary artery consistent with pulmonary hypertension treated as an acute exacerbation of her bronchiectasis with empiric initial IV azithromycin with Solu-Medrol initiation in the ED with transition to prednisone therapy with as needed albuterol with recommended follow-up with Dr. Moser her loader engineer. Work-up in the ED included T97.8, heart rate 111 initially with most recent repeat 80, BP initially 93/60 with most recent repeat 102/72, respiratory rate 18, oxygenation 93 to 96% on room air, CBC with WC 11.7, hemoglobin 16.1, platelets 362 without marked shift, BMP with potassium 3.3, chloride 111, carbon dioxide 16, BUN/creatinine 56/1.62, glucose 117, troponin 12, BNP 9.8, CTPA with no demonstrated PE or dissection or any acute cardiopulmonary findings, rapid SARS COVID and influenza antigens negative, pending full respiratory viral panel per ED staff, EKG with sinus tachycardia with right bundle branch block with no acute evidence of ischemia unchanged from prior.? In the ED patient administered Solu-Medrol 125 mg IV x1, Benadryl 25 mg IV x1 (Both for hx IV contrast allergy as noted), duoneb therapy, albuterol and 1 L normal saline bolus. Hospital Course: 1. Acute on chronic bronchiectasis with acute viral syndrome/PEPE?72-year-old female with chronic pulmonary issues with multiple episodes of bronchiectasis this year presents to the hospital with shortness of breath and a productive cough. She was recently seen in this ER on the week of and was discharged home with a diagnosis of just of viral URI. She went to her family for but just felt so bad that she had to go to a hospital in [place] where she was hospitalized for 2 days and started on antibiotics. She states that she felt better with the antibiotics and the steroids but then started feeling short of breath and coughing again which is why she came in. She is not requiring any oxygen she is not hypoxic. She did have an ambulatory pulse ox which was negative for any oxygen requirement. She states that she has a nebulizer as well as rescue inhaler at home however she does admit to not using her rescue inhaler appropriately. She states that while she was in [place] for she did not use her rescue inhaler at all and just went to the ER instead. I discussed with her that the point of the rescue inhalers to help her with her shortness of breath and wheezing whenever she would have a reactive airway and that if she does notice some shortness of breath or wheezing she is to use her rescue inhaler as instructed by her loader engineer. She did also have an PEPE on admission which resolved today with her creatinine back to baseline. I discussed with her the plan for discharge today she expressed understanding of the risk benefits going home and is okay with going home today. She was discharged earlier than expected secondary to appropriate care with rapid reversal of her PEPE. 2. Paroxysmal A. fib, hypertension, hyperlipidemia, history of AML, history of bowel perforation status post colectomy with ileostomy, history of VTE, hypothyroidism, GERD are all chronic medical conditions which complicate her care. Her home medications were continued where appropriate. Physical Exam Narrative General: Alert, Oriented x3, Cooperative, No apparent distress HEENT: Atraumatic, PERRLA, EOMI, Normocephalic Oral: Moist Mucosa Neck: Supple, No JVD Lungs: Diminished, Normal air movement, No rhonchi, mild wheeze, No rales Cardiovascular: Regular rate, Regular Rhythm, Normal S1, Normal S2, No murmurs Abdomen: Soft, Non Tender, Non-Distended, No Hepato-splenomegaly Extremities: No edema, Capillary Refill Less than 3 Seconds Skin: No rashes, No breakdown Musculoskeletal: No Tenderness to Palpation of Joints or Extremities Neurological: Cranial nerves II-XII grossly intact, Motor Exam 5/5 strength throughout, Sensory exam intact to light touch and pain Psych/Mental Status: Normal Affect, Appropriate Weight / BMI Weight Weight: 155 lb 6.814 oz Body Mass Index (BMI) 31.8 ABG / Lab / Microbiology Data Result Diagrams: 08/24/22 05:02 08/24/22 05:02 Laboratory: Laboratory Results - last 24 hr 08/23/22 14:50: Differential Comment SCANNED, Diff Path Review Reviewed 08/23/22 18:16: Magnesium 2.5 08/23/22 18:16: Procalcitonin 0.11 H 08/23/22 20:17: POC Glucose 198 H 08/24/22 05:02: WBC 7.1, RBC 4.09 L, Hgb 13.8, Hct 40.4, MCV 98.8, MCH 33.7 H, MCHC 34.2, RDW Std Deviation 52.8 H, RDW Coeff of Saloni 14.5, Plt Count 312, MPV 10.8, Immature Gran % (Auto) 0.600, Neut % (Auto) 67.8, Lymph % (Auto) 27.9, [place] % (Auto) 3.7, Eos % (Auto) 0.0, Baso % (Auto) 0.0, Absolute Neuts (auto) 4.8, Absolute Lymphs (auto) 1.99, Nucleated RBC % 0 08/24/22 05:02: Sodium 139, Potassium 4.9, Chloride 119 H, Carbon Dioxide 14.0 L, Anion Gap 6, BUN 38 H, Creatinine 1.07 H, Estim Creat Clear Calc 53.67, Est GFR (MDRD) Af Amer 65, Est GFR (MDRD) Non-Af 54 L, BUN/Creatinine Ratio 35.5 H, Glucose 182 H, Calcium 8.4 L, Total Bilirubin 0.30, AST 23, ALT 49, Alkaline Phosphatase 87, Total Protein 6.5, Albumin 2.8 L, Globulin 3.7, Albumin/Globulin Ratio 0.8 L 08/24/22 05:58: POC Glucose 144 H 08/24/22 11:26: POC Glucose 104 Microbiology: Microbiology 08/24/22 01:15 Interface Orders Legionella Antigen - Final 08/24/22 01:15 Interface Orders Streptococcus pneumoniae Antigen (M - Final 08/23/22 14:35 Mucosa - Nasopharyngeal Respiratory Panel (PCR) - Final 08/23/22 14:35 Nasal Secretion SARS-CoV-2 & FLU Antigen (Rapid) - Final Radiography Diagnostic Testing: Radiology Impression Chest X-Ray 08/24/22 05:55 IMPRESSION: Stable examination. No acute abnormality is seen. Electronically Signed: Ralph Morillo MD at 9:48 EST , D/C Instructions Discharge Diet: No restrictions Call your doctor if you observe: Fever of 101 or Higher, Shortness of breath, Dizziness, Fainting spells, Swelling in the ankles, Chest pain and Increased palpitations (irregular heartbeat) Meaningful Use Info Meaningful Use Diagnoses (Choose all that apply): None applicable Discharge Plan Admission Admit Date/Time: 08/23/22 21:05 Attending Provider: Adarsh Turner Primary Care Provider: Dorcas Prince Consulting Providers: Gloria Constantino Discharge Orders/Prescriptions Prescriptions: New prednisone 10 mg tablet 10 mg PO DAILY Qty: 52 0RF Rx Instructions: 4 tablets daily for 5 days, 3 tablets daily for 5 days, then 2 tablets daily for 5 days, 1 tablet daily for 5 days, then half tablet daily for 4 days Continued magnesium oxide 400 MG tablet 200 mg PO BID esomeprazole magnesium 40 MG capsule,delayed release(DR/EC) 40 mg PO DAILY L.acidoph, paracasei,B. lactis 1 EACH capsule 1 ea PO QHS metoprolol tartrate 25 mg tablet 25 mg PO DAILY apixaban 5 mg Tablet 5 mg PO BID cholecalciferol (vitamin D3) 50 mcg (2,000 unit) Tablet 50 mcg PO DAILY levothyroxine 100 mcg tablet 112 mcg PO DAILY Referrals / Follow Up: Frantz Moser DO [Med Staff - Active Staff] - Within 1 Month Dorcas Prince MD [Primary Care Provider] - Within 1 Week Disposition Disposition (needs filled in before D/C Order can be placed): Home, Self Care Charges/Coding Visit Charges Inpatient E&M: 34655 Disch Hosp
== END 2022-08-24 14:49 | disposition home or self-care (01) | DRG 191 ==
LOC: ED 17:12 → MS3 18:15
PROVIDERS: Nurse Practitioner; Admitting Provider Family Medicine; Emergency Provider Emergency Medicine; PCP Internal Medicine; Visit Provider Family Medicine
DX: N17.9 Acute kidney failure, unspecified (principal); Z94.81 Bone marrow transplant status; Z93.2 Ileostomy status; I27.20 Pulmonary hypertension, unspecified; I48.0 Paroxysmal atrial fibrillation; E11.9 Type 2 diabetes mellitus without complications; E87.6 Hypokalemia; K21.9 Gastro-esophageal reflux disease without esophagitis; E03.9 Hypothyroidism, unspecified; I10 Essential (primary) hypertension; E78.5 Hyperlipidemia, unspecified; B34.9 Viral infection, unspecified; H91.93 Unspecified hearing loss, bilateral; Z79.01 Long term (current) use of anticoagulants; Z79.890 Hormone replacement therapy; Z79.899 Other long term (current) drug therapy; Z20.822 Contact with and (suspected) exposure to COVID-19; R06.02 Shortness of breath
CPT/HCPCS: 36415; 71045; 71275; 80048; 80053; 82962; 83735; 83880; 84145; 84484; 85025; 87428; 87449; 87633; 93005; 94640; 96361; 96374; 96375; 99221; 99251; 99285; J7030; Q9967; A4216; G0378; G0463

== ENCOUNTER 2023-03-24 23:35 | Emergency (ER) | payer MEDICARE, SELFPAY ==
[2023-03-24 23:36] VITALS: BP 156/66; PULSE 110; RESP 18; TEMP 36.4; O2SAT 98; BMI 33.8
--- NOTE | 2023-03-24 23:53 | CT_ITS ---
INDICATION: Upper abdominal pain, elevated white blood cell count EXAMINATION: CT Abdomen And Pelvis W/ Contrast Injection TECHNIQUE: Helically acquired images were obtained of the abdomen and pelvis following IV contrast. 2-D reconstructions reviewed. A radiation dose optimization technique was used for this scan. IV Contrast dosage and agent: 100 cc Isovue-370 Oral contrast: None. COMPARISON: Unenhanced CT abdomen and pelvis from 05/15/2022 FINDINGS: LOWER CHEST: Cephalic approach central line tip at lower SVC. Heart size within normal limits. Stable mildly elevated right hemidiaphragm. Mild chronic bibasilar scarring. LIVER: Fatty infiltration of liver. No concerning lesion. GALLBLADDER AND BILIARY TREE: Status post cholecystectomy. No significant biliary ductal dilation. PANCREAS: Somewhat atrophic with no discrete mass or peripancreatic edema. SPLEEN: Stable splenic atrophy. ADRENAL GLANDS: Unremarkable. KIDNEYS AND URETERS: Kidneys are normal size. No hydronephrosis or solid renal mass. Simple appearing 3.4 cm cyst at lower pole of left kidney, no additional follow-up recommended at this time. PERITONEUM: No significant free fluid. No peritoneal free air detected. RETROPERITONEUM: No retroperitoneal mass or pathologic fluid collection. BOWEL: Previous subtotal colectomy with right lower quadrant ileostomy. There are several mildly dilated loops of small bowel with tapering to thickened small bowel within left lower quadrant (series 2 axial images 78-84). Nondilated and fairly decompressed small bowel distally. LYMPH NODES: No enlarged mesenteric or retroperitoneal lymph nodes. VESSELS: Infrarenal IVC filter present with small bilateral iliac veins, secondary to chronic venoocclusive disease. Secondary numerous lower abdominal and pelvic varices present. Atherosclerosis with no abdominal aortic aneurysm. URINARY BLADDER: Unremarkable as visualized. REPRODUCTIVE ORGANS: No pelvic masses. ABDOMINAL WALL: Stable right lower abdominal ileostomy. BONES: Status post left hip arthroplasty. CT/Abdomen/Pelvis W IV Cont ONLY IMPRESSION: 1. Small bowel obstruction with transition located within left lower quadrant. Small bowel thickening at transition could represent inflammatory versus infectious enteritis and/or developing inflammatory stricture. 2. Other chronic and nonurgent findings within body of report. Electronically Signed: Olayinka Lynch MD at 2:12 EDT ,
[2023-03-25] MEDS: Ondansetron 4 MG/2 ML Vial IV (00:13)
[2023-03-25] MEDS: 0.9% Normal Saline 1,000 ML 1000 ML IV (00:13)
[2023-03-25] MEDS: Morphine 4 MG/ML Syringe IV (00:14)
[2023-03-25] MEDS: MethylPREDNISolone 125 MG/2 ML Vial IV (00:15)
[2023-03-25] MEDS: DiphenhydrAMINE 50 MG/ML Syringe IV (00:16)
[2023-03-25 00:22] LABS: Absolute Lymphocyte Count 5.49 X10^3/uL (0.83-4.51); Absolute Neutrophil Count 4.8 X10^3/uL (2.0-7.7); Basophil# 0.06 X10^3/uL; Basophil% 0.5 % (0-1); Eosinophil# 0.15 X10^3/uL; Eosinophils% 1.3 % (0-5); Hematocrit 41.6 % (37-47); Hemoglobin 13.7 g/dL (12.0-15.0); Lymphocyte # 5.49 X10^3/ul (0.83-4.51); Lymphocyte % 47.2 % (19-41); Mean Corp Hgb Conc 32.9 g/dL (32-36); Mean Corpuscular Hgb 32.8 pg (27.0-32.0); Mean Corpuscular Volume 99.5 fL (81-99); Mean Platelet Vol. 10.3 fl (6.2-12.0); Monocyte# 1.09 X10^3/uL; Monocyte% 9.4 % (0-10); NRBC Flagged by Analyzer 0 % (0-5); Neutrophil # 4.82 X10^3/uL (2.7-7.7); Neutrophil % 41.3 % (47-70); POSITIVE DIFFERENTIAL YES; Platelet Count 234 K/mm3 (150-450); RBC Distribution Width CV 14.4 % (11.6-14.6); Red Blood Count 4.18 M/mm3 (4.2-5.4); White Blood Count 11.6 K/mm3 (4.4-11.0)
[2023-03-25 00:23] LABS: Differential Indicated SCAN CRITERIA MET
[2023-03-25 00:38] LABS: Differential Comment SCANNED
--- NOTE | 2023-03-25 00:56 | EDS_ITS ---
HPI HPI - GI History of Present Illness Chief Complaint: Abd Pain Narrative Narrative: 73-year-old female presenting with abdominal pain for about 3 hours. Patient states she has a history of total colectomy status post udcnt-[id number]-enlc disease. Her surgeon was at [facility]. Patient states he is concerned she had an obstruction in the past and she might have 1 now. She has not had any fevers. She is nauseous without vomiting. She had a little bit of stool output into her ostomy bag. PFSH [facility] Medical History AML (acute myeloid leukemia) in remission (~01/12/22) Atrial fibrillation with RVR Essential hypertension GERD (gastroesophageal reflux disease) Juybq-mzixtz-kepz disease High output ileostomy History of DVT (deep vein thrombosis) (~10/2015) History of syncope Hypokalemia Hypophosphatemia Hypothyroidism Ileostomy in place Leukemia Right bundle branch block Small bowel obstruction Home Medications magnesium oxide 400 mg (241.3 mg magnesium) tablet 200 mg PO BID supplement 09/08/15 [History Last Taken 08/23/22] L.acidoph, paracasei,B. lactis 10 billion cell capsule 1 ea PO QHS probiotic 05/06/19 [History Last Taken 08/22/22] esomeprazole magnesium 40 mg capsule,delayed release 40 mg PO DAILY GERD 05/06/19 [History Last Taken 08/23/22] metoprolol tartrate 25 mg tablet 25 mg PO BID htn 01/08/22 [History Last Taken 08/23/22] apixaban 5 mg tablet 5 mg PO BID blood thinner 08/23/22 [History Last Taken 08/23/22] cholecalciferol (vitamin D3) 50 mcg (2,000 unit) tablet 50 mcg PO DAILY supplement 08/23/22 [History Last Taken 08/23/22] levothyroxine 100 mcg tablet 112 mcg PO DAILY thyroid 08/23/22 [History Last Taken 08/23/22] prednisone 10 mg tablet 10 mg PO DAILY #52 tabs 08/24/22 [Rx Last Taken Unknown] flaxseed oil 1,000 mg capsule 1,000 mg PO DAILY 03/25/23 [History Last Taken Unknown] Allergy/AdvReac Type Severity Reaction Status Date / Time Gadolinium-MRI Contrast Allergy Hives Verified 03/24/23 23:39 Medium [CONTRAST] Iodinated Contrast Media Allergy Hives Verified 03/24/23 23:39 [Iodinated Contrast Media - IV Dye] iodine Allergy Hives Verified 03/24/23 23:39 teriparatide [From Forteo] AdvReac Unknown Other Verified 03/24/23 23:39 Family History Mother Diabetes Heart disease Father Cancer Liver CA, age 84. Alcoholism Surgical History Bone marrow transplant status H/O ileostomy History of bone marrow transplant History of total colectomy Social History household members: spouse Smoking Status: Never smoker alcohol intake: never substance use type: does not use ROS ROS ED Constitutional Constitutional ED: Denies chills or fever(s) ENT ENT ED: Denies sore throat Cardiovascular Cardiovascular: Denies chest pain or palpitations Respiratory/Chest Respiratory/Chest: Denies cough or dyspnea Gastrointestinal Gastrointestinal: Reports abdominal pain and nausea Genitourinary Genitourinary ED: Denies dysuria or hematuria Musculoskeletal Musculoskeletal: Denies arthralgias or back pain Integumentary Denies abscess Neurologic Neurologic: Denies headache(s) or paresthesias Psychiatric Psychiatric: Denies anxiety or depression EXAM Physical Exam Const Vital Signs: 03/24/23 23:36 03/25/23 02:55 03/25/23 04:55 Temperature 97.6 F L 98.0 F Temperature Source Temporal Pulse Rate 110 H 79 81 Respiratory Rate 18 16 18 Blood Pressure 156/66 H 142/70 H 138/65 H Blood Pressure Mean 96 94 89 Pulse Ox 98 97 98 Oxygen Delivery Method Room Air Room Air Positive well nourished and obese General Appearance ED: NAD; Negative for pallor Nutritional Appearance: obese HEENT Reports moist mucous membranes Eyes PERRL and EOMs intact bilaterally Resp normal respiratory effort Effort and Inspection: Negative for respiratory distress Cardio regular rate Rate: tachycardic GI GI Narrative: Diffuse tenderness to palpation. Abdomen somewhat distended. High-pitched bowel sounds are present Back/Spine no CVA tenderness Neuro CN's II-XII intact bilaterally Sensorium / Orientation: alert Psych mental status grossly normal Skin no wounds General Skin Exam: Negative for jaundice or pallor MDM MDM MDM Narrative Medical decision making narrative: Patient presenting with acute onset abdominal pain. She is concern for obstruction. Her exam is consistent with this with the distention and high- pitched bowel sounds. Patient given morphine and Zofran. She is premedicated for CT scan with Solu-Medrol and Benadryl. CBC to assess white blood cell count, hemoglobin, platelets, differential. CMP to assess liver function, renal function, glucose, electrolytes. Urinalysis to assess for UTI. Patient given the lower normal saline. CT of the abdomen pelvis with IV contrast will be obtained CBC shows a mild leukocytosis 11.6. Hemoglobin stable at 13.7. No significant left shift. Renal function is normal. Electrolytes unremarkable. LFTs within normal limits. Glucose 118 without anion gap. Urinalysis negative for infection. After receiving 1 dose of morphine and Zofran she has not had any more pain or nausea. She noted that she did have some output in her ostomy. The CT of the abdomen pelvis shows a small bowel obstruction with a transition point the left lower quadrant. The radiologist interprets this as inflammatory versus infectious versus developing stricture. Discussed with Dr. Saba he is on-call for general surgery who recommended transfer given her extensive surgical history. I spoke with [facility] and Dr. Valdez was excepting of the patient. Patient counseled on all findings. She is refusing an NG tube even though Dr. Saba felt that she should have this. Dr. Valdez did not feel compelled to make her have this. At this point patient did sign transfer papers and will be transferred when a bed becomes available. Eventually the patient did let us try to put an NG tube in. She did not tolerate this very well and at this point told us not to try anymore. Patient has a bed at this point and is stable for transfer. She has not had any increase in abdominal pain. Impression 1. Small bowel obstruction Lab Data Labs: Laboratory Results - last 24 hr 03/25/23 03/25/23 00:17 01:50 WBC 11.6 H RBC 4.18 L Hgb 13.7 Hct 41.6 MCV 99.5 H MCH 32.8 H MCHC 32.9 RDW Std Deviation 53.0 H RDW Coeff of Saloni 14.4 Plt Count 234 MPV 10.3 Immature Gran % (Auto) 0.300 Neut % (Auto) 41.3 L Lymph % (Auto) 47.2 H [place] % (Auto) 9.4 Eos % (Auto) 1.3 Baso % (Auto) 0.5 Absolute Neuts (auto) 4.8 Absolute Lymphs (auto) 5.49 H Nucleated RBC % 0 Differential Comment SCANNED Sodium 136 Potassium 3.8 Chloride 105 Carbon Dioxide 23.0 Anion Gap 8 BUN 35 H Creatinine 0.98 Estim Creat Clear Calc 60.13 Est GFR (MDRD) Af Amer 71 Est GFR (MDRD) Non-Af 59 L BUN/Creatinine Ratio 35.5 H Glucose 118 H Calcium 8.4 L Total Bilirubin 0.40 AST 23 ALT 33 Alkaline Phosphatase 114 Total Protein 6.9 Albumin 3.3 Globulin 3.6 Albumin/Globulin Ratio 0.9 Lipase 30 Urine Color Yellow Urine Clarity Clear Urine pH 6.0 Ur Specific [place] 1.010 Urine Protein Negative Urine Glucose (UA) Normal Urine Ketones Negative Urine Occult Blood 10 H Urine Nitrite Negative Urine Bilirubin Negative Urine Urobilinogen Normal Ur Leukocyte Esterase 100 H Urine RBC 0-5 SEEN Urine WBC 0-5 SEEN Ur Squamous Epith Cells 0 SEEN Urine Bacteria RARE Urine Mucus 0 SEEN Radiography Diagnostic Testing: Clinical Impression(s) from Imaging Studies Abdomen/Pelvis CT 03/24/23 23:53 IMPRESSION: 1. Small bowel obstruction with transition located within left lower quadrant. Small bowel thickening at transition could represent inflammatory versus infectious enteritis and/or developing inflammatory stricture. 2. Other chronic and nonurgent findings within body of report. Electronically Signed: Olayinka Lynch MD at 2:12 EDT , Discharge Plan Triage Chief Complaint: Abd Pain ED Provider: Kwabena Sin Dx/Rx/DC Orders Prescriptions: No Action magnesium oxide 400 MG tablet 200 mg PO BID esomeprazole magnesium 40 MG capsule,delayed release(DR/EC) 40 mg PO DAILY L.acidoph, paracasei,B. lactis 1 EACH capsule 1 ea PO QHS metoprolol tartrate 25 mg tablet 25 mg PO BID apixaban 5 mg Tablet 5 mg PO BID cholecalciferol (vitamin D3) 50 mcg (2,000 unit) Tablet 50 mcg PO DAILY levothyroxine 100 mcg tablet 112 mcg PO DAILY prednisone 10 mg tablet 10 mg PO DAILY Qty: 52 0RF Rx Instructions: 4 tablets daily for 5 days, 3 tablets daily for 5 days, then 2 tablets daily for 5 days, 1 tablet daily for 5 days, then half tablet daily for 4 days flaxseed oil 1,000 mg capsule 1,000 mg PO DAILY Primary Care Provider: Dorcas Prince Referrals: Dorcas Prince MD [Primary Care Provider] -
[2023-03-25 01:01] LABS: ALB/GLOB Ratio 0.9 RATIO (0.9-2.4); AST(SGOT) 23 U/L (15-37); Alanine Aminotransfer ALT/SGPT 33 U/L (13-56); Albumin, Serum 3.3 g/dL (3.2-5.0); Alkaline Phosphatase 114 U/L (45-117); Anion Gap 8 (5-15); BUN 35 mg/dL (7-18); BUN/Creat Ratio 35.5 RATIO (10-20); Calcium,Total 8.4 mg/dL (8.5-10.1); Chloride 105 mmol/L (98-107); Creatinine, Serum 0.98 mg/dL (0.55-1.02); EST Glomerular Filtration Rate 59 mL/min (>60); Est Glom Filt Rate - Afr Amer 71 mL/min (>60); Estimated Creatinine Clearance 60.13 ml/min; Globulin 3.6 g/dL (2.2-4.2); Glucose 118 mg/dL (74-106); Lipase 30 U/L (13-75); Potassium 3.8 mmol/L (3.5-5.1); Protein, Total 6.9 g/dL (6.4-8.2); Sodium Level 136 mmol/L (136-145)
[2023-03-25 01:57] LABS: Mucous, Urine 0 SEEN /hpf (<or=2+); Squamous Epithelial Cells - UA 0 SEEN /hpf (5-10)
[2023-03-25 01:58] LABS: Color, Urine Yellow (Yellow); Glucose, Dipstick Normal (Normal); Ketone-Dipstick Negative (Negative); Leukocyte Esterase-Dipstick 100 /ul (Negative); Nitrite-Dipstick Negative (Negative); Occult Blood-Urine 10 /ul (Negative); Protein-Dipstick Negative (Negative); Urine Bilirubin Dipstick Negative (Negative); Urine Clarity Clear (Clear); Urine Urobilinogen Normal (Normal)
[2023-03-25 02:10] LABS: Bacteria RARE /hpf (None Seen); Red Blood Cells-Urine 0-5 SEEN /hpf (0-5); White Blood Cells 0-5 SEEN /hpf (0-5)
[2023-03-25 02:55] VITALS: BP 142/70; PULSE 79; RESP 16; O2SAT 97
--- NOTE | 2023-03-25 03:05 | ED.RN ---
This nurse went into pt room and talked about NG tube placement and why the doctor had ordered it. Pt refusing NG at this time d/t having other bowel obstructions and never needing an NG placed. Dr. Sin into room to talk to pt and . Pt still refusing NG and wanting to wait till she gets to [facility] to decide if she really needs one. Dr. Sin upated.
--- NOTE | 2023-03-25 03:41 | ED.RN ---
one attempt made for NG insertion made, patient did not tolerate well. Pt got a bloody nose, choking and gagging. Pt declines any further tries.
[2023-03-25 04:55] VITALS: BP 138/65; PULSE 81; RESP 18; TEMP 36.7; O2SAT 98
== END 2023-03-25 06:47 | disposition short-term general hospital (02) ==
LOC: ED 03-25 00:26
PROVIDERS: Emergency Provider Student in an Organized Health Care Education/Training Program; PCP Internal Medicine; Visit Provider Student in an Organized Health Care Education/Training Program
DX: K56.609 Unspecified intestinal obstruction, unspecified as to partial versus complete obstruction (principal); I48.91 Unspecified atrial fibrillation; I10 Essential (primary) hypertension; R19.15 Other abnormal bowel sounds; Z86.718 Personal history of other venous thrombosis and embolism; E03.9 Hypothyroidism, unspecified
CPT/HCPCS: 36591; 74177; 80053; 81001; 83690; 85025; 96361; 96374; 96375; 99283; J7030; Q9967; A4216; J2405

== ENCOUNTER 2024-04-18 16:56 | Emergency (ER) | payer MEDICARE, SELFPAY ==
[2024-04-18 16:57] VITALS: BP 143/92; PULSE 115; RESP 18; TEMP 36.4; O2SAT 98; BMI 34.3
--- NOTE | 2024-04-18 17:25 | CT_ITS ---
STUDY: CT BRAIN WITHOUT CONTRAST REASON FOR EXAM: Female, 74 years old. Head trauma on Eliquis RADIATION DOSAGE (If Supplied By Facility): CTDIvol = ( 44.99 ) mGy, DLP = ( 796.11 ) mGycm TECHNIQUE: Transaxial CT imaging of the brain was performed without administration of intravenous contrast material. Individualized dose optimization techniques were used for this CT. COMPARISON: No relevant priors. FINDINGS: Normal soft tissue structures. Normal calvarium. Normal size ventricles and extra-axial spaces for the patient''s age. Normal white matter tracts of the cerebral hemispheres. Normal basal ganglia and thalami. Normal brainstem. Normal cerebellum. There is no intracranial hemorrhage. There are no findings of an acute ischemic infarction. Normal visualized paranasal sinuses. CT/Brain/Head without Contrast IMPRESSION: Normal unenhanced CT scan of the brain. Electronically Signed: Tristan Brady MD at 17:44 EDT ,
--- NOTE | 2024-04-18 17:44 | EX.ED.GENINJ ---
HPI History of Present Illness Chief Complaint: Head Injury Detail of Chief Complaint: Closed head injury on anticoagulant Informant: patient Onset/Context/Timing Onset: Today and Hours Mechanism/Context: Blunt Injury and Fall Location of pain/injuries: - (Occiput) Quality of Pain: Dull and Aching Location: Occiput Maximum Severity: Severe Worsened by: Palpation Relieved by: Nothing Associated Symptoms Associated Symptoms: Negative for Parasthesias, Weakness, Loss of function, Inability to ambulate, Loss of consciousness or Amnesia Narrative Narrative: Patient is a 74-year-old woman. She has history of atrial fibrillation, DVT with recurrent DVT, AML who is on Eliquis that presents after mechanical fall. She fell backwards hitting her head going down steps. She denies loss of conscious. She would not days. She does complain of head pain. Denies ringing in ears or decreased hearing. She does have hearing aids. Denies trouble speech or swallowing. Prior similar symptoms: No Recent Illness/Hospitalization: No [facility] Medical History Leukemia Hypokalemia Hypophosphatemia High output ileostomy Right bundle branch block History of syncope Ileostomy in place GERD (gastroesophageal reflux disease) History of DVT (deep vein thrombosis) (~10/2015) Atrial fibrillation with RVR Essential hypertension Prnba-[id number]-dqia disease Small bowel obstruction AML (acute myeloid leukemia) in remission (~01/12/22) Hypothyroidism Home Medications ?Medication ?Instructions ?Recorded ?Last Taken ?Type magnesium oxide 400 mg (241.3 mg 200 mg PO BID supplement 09/08/15 08/23/22 History magnesium) tablet L.acidoph, paracasei,B. lactis 10 1 ea PO QHS probiotic 05/06/19 08/22/22 History billion cell capsule esomeprazole magnesium 40 mg 40 mg PO DAILY GERD 05/06/19 08/23/22 History capsule,delayed release metoprolol tartrate 25 mg tablet 25 mg PO BID htn 01/08/22 08/23/22 History apixaban 5 mg tablet 5 mg PO BID blood thinner 08/23/22 08/23/22 History cholecalciferol (vitamin D3) 50 50 mcg PO DAILY supplement 08/23/22 08/23/22 History mcg (2,000 unit) tablet levothyroxine 100 mcg tablet 112 mcg PO DAILY thyroid 08/23/22 08/23/22 History prednisone 10 mg tablet 10 mg PO DAILY #52 tabs 08/24/22 Unknown Rx flaxseed oil 1,000 mg capsule 1,000 mg PO DAILY 03/25/23 Unknown History Allergy/AdvReac Type Severity Reaction Status Date / Time Gadolinium-MRI Contrast Allergy Hives Verified 04/18/24 16:57 Medium (CONTRAST) Iodinated Contrast Media Allergy Hives Verified 04/18/24 16:57 (Iodinated Contrast Media - IV Dye) iodine Allergy Hives Verified 04/18/24 16:57 teriparatide (From Forteo) AdvReac Unknown Other Verified 04/18/24 16:57 Family History Mother Diabetes Heart disease Father Cancer Liver CA, age 84. Alcoholism Surgical History History of bone marrow transplant H/O ileostomy History of total colectomy Bone marrow transplant status Social History household members: spouse Smoking Status: Never smoker alcohol intake: never substance use type: does not use ROS ROS ED Constitutional Constitutional ED: Denies chills, fever(s) or subjective Eyes Eyes: Denies blurry vision or change in vision ENT ENT ED: Denies ear pain, rhinorrhea or sore throat Cardiovascular Cardiovascular: Denies chest pain or palpitations Respiratory/Chest Respiratory/Chest: Denies cough, dyspnea or dyspnea on exertion Gastrointestinal Gastrointestinal: Denies nausea or vomiting Genitourinary Genitourinary ED: Denies hematuria Musculoskeletal Musculoskeletal: Denies back pain or neck pain Integumentary Denies Abrasions or rash Neurologic Neurologic: Reports headache(s); Denies paresthesias Endocrine Endocrinology: Denies cold intolerance or heat intolerance Hematologic/Lymphatic Hematologic/Lymphatic: Reports easy bruising; Denies easy bleeding EXAM Physical Exam Const Vital Signs: 04/18/24 16:57 04/18/24 17:06 Temperature 97.6 F L Temperature Source Temporal Pulse Rate 115 H Respiratory Rate 18 Respiratory Effort Normal Respiratory Depth Normal Respiratory Pattern Normal Blood Pressure 143/92 H Blood Pressure Mean 109 Pulse Ox 98 Oxygen Delivery Method Room Air Positive well nourished and well developed General Appearance ED: well developed and NAD HEENT HEENT Narrative: There is tenderness over the occiput. There may be a small abrasion. There is no palp depression. There is no clinical signs of basilar skull fracture. Hearing aids were removed to see to visualize the TMs. trauma and tenderness; Negative for atraumatic Eyes PERRL and EOMs intact bilaterally General Eye ED: Yes other Other Details: There is no subconjunctival hemorrhage. There is no nystagmus. Neck full ROM Neck Narrative: There is no midline posterior neck tenderness. She has full active range of motion without pain. General: Negative for tenderness Resp normal respiratory effort and clear to auscultation bilaterally Cardio regular rhythm, S1 normal heart sound and S2 normal heart sound Rate: regular rate Back/Spine normal to inspection and no thoracic nor lumbar tenderness Extremity normal to inspection and full ROM Neuro oriented x3 and CN's II-XII intact bilaterally [place] Coma Scale: document GCS findings Spontaneous Obeys Commands Oriented 15 Sensorium / Orientation: alert Motor Exam: strength 5/5 throughout Plantar Reflex: Downgoing: bilateral (There is no clonus.) Psych mental status grossly normal and thought process normal Skin no rashes or lesions noted, no wounds, skin turgor normal and no jaundice MDM MDM MDM Narrative Medical decision making narrative: Since patient is on anticoagulant has head trauma will obtain CT to rule out epidural hematoma, subdural hematoma, traumatic subarachnoid hemorrhage or intraparenchymal bleed. Doubt fracture. Radiography Diagnostic Testing: Clinical Impression(s) from Imaging Studies Brain CT 04/18/24 17:25 IMPRESSION: Normal unenhanced CT scan of the brain. Electronically Signed: Tristan Brady MD at 17:44 EDT , CT of the head was reviewed by me at 1745. There is no evidence of subdural hematoma, epidural hematoma, traumatic subarachnoid hemorrhage or intraparenchymal contusion. There is no evidence of fracture. Awaiting formal read by radiologist. Treatment and Re-Evaluation Narrative: Patient was informed CAT scan is normal. She was informed that she may hurt in places she presently does not. Since she has had recurrent blood clots and history of paroxysmal atrial fibrillation I will not be able to have her hold her anticoagulant for the next 48 hours. Discharge Plan Triage Chief Complaint: Head Injury ED Provider: Jitendra Charlton Dx/Rx/DC Orders Clinical Impression: CHI (closed head injury), Essential hypertension, History of deep vein thrombosis, Bone marrow transplant status, Anticoagulant long-term use, Sinus tachycardia Instructions: ED Concussion Prescriptions: No Action magnesium oxide 400 MG tablet 200 mg PO BID esomeprazole magnesium 40 MG capsule,delayed release(DR/EC) 40 mg PO DAILY mike Acosta B. lactis 1 EACH capsule 1 ea PO QHS metoprolol tartrate 25 mg tablet 25 mg PO BID apixaban 5 mg Tablet 5 mg PO BID cholecalciferol (vitamin D3) 50 mcg (2,000 unit) Tablet 50 mcg PO DAILY levothyroxine 100 mcg tablet 112 mcg PO DAILY prednisone 10 mg tablet 10 mg PO DAILY Qty: 52 0RF Rx Instructions: 4 tablets daily for 5 days, 3 tablets daily for 5 days, then 2 tablets daily for 5 days, 1 tablet daily for 5 days, then half tablet daily for 4 days flaxseed oil 1,000 mg capsule 1,000 mg PO DAILY Primary Care Provider: Dorcas Prince Referrals: Dorcas Prince MD [Primary Care Provider] - As Needed Activity Restrictions/Additional Instructions: 1. You may hurt more places and you presently do. 2. You may hurt worse than you presently do over the next 24 to 48 hours. 3. Apply ice to areas of discomfort and take Tylenol for pain Print Language: Turkish Disposition Disposition: Home, Self Care
[2024-04-18 18:07] VITALS: BP 102/57; PULSE 78; RESP 18; TEMP 36.6; O2SAT 98
== END 2024-04-18 18:12 | disposition home or self-care (01) ==
PROVIDERS: Emergency Provider Emergency Medicine; PCP Internal Medicine; Visit Provider Emergency Medicine
DX: S09.90XA Unspecified injury of head, initial encounter (principal); Z94.81 Bone marrow transplant status; I48.91 Unspecified atrial fibrillation; R26.2 Difficulty in walking, not elsewhere classified; Z79.01 Long term (current) use of anticoagulants; I10 Essential (primary) hypertension; Z86.718 Personal history of other venous thrombosis and embolism; W10.9XXA Fall (on) (from) unspecified stairs and steps, initial encounter; K21.9 Gastro-esophageal reflux disease without esophagitis; E03.9 Hypothyroidism, unspecified; R00.0 Tachycardia, unspecified
CPT/HCPCS: 70450; 99282

== ENCOUNTER → 2024-09-06 | Outpatient (CLI) | payer MEDICARE, SELFPAY ==
--- NOTE | 2024-09-06 13:26 | PCM.PR.HP ---
History of Present Illness General Arrival date:: 09/06/24 Arrival time:: 13:26 Date of Referral:: 08/03/24 Date of Evaluation: 09/06/24 Referring Physician: Dr. Gabriela Moser Primary Diagnosis: RLD, bronchiectasis History of Present Pulmonary Event mMRC Breathless Scale: When is the patient short of breath? Y/N Grade: Description of Breathlessness: 0 I only get breathless with strenuous exercise. 1 I get short of breath when hurrying on level ground or walking up a slight hill. 2 On level ground, I walk slower than people of the same age because of breathless, or have to stop for breath when walking at my own pace. 3 I stop for breath after walking 100 yards or after a few minutes on level ground. 4 I am too breathless to leave the house or I am breathless when dressing. Respiratory Problems: Yes Retain Secretions, Fatigue, Wheezing, Ankle Swelling, Anxiety and Dyspnea with Activity; No Limited Range of Motion, Chest Pain, Able to Speak in Full Sentences, Dizziness, Hoarseness, Panic, Dyspnea at Rest, Dyspnea Lying Down Flat or Cough with Secretions Medications Home Medications magnesium oxide 400 mg (241.3 mg magnesium) tablet 200 mg PO BID supplement 09/08/15 L.acidoph,paracasei,B.animalis 10 billion cell capsule 1 ea PO QHS probiotic 05/06/19 esomeprazole magnesium 40 mg capsule,delayed release 40 mg PO DAILY GERD 05/06/19 metoprolol tartrate 25 mg tablet 25 mg PO BID htn 01/08/22 apixaban 5 mg tablet 5 mg PO BID blood thinner 08/23/22 cholecalciferol (vitamin D3) 50 mcg (2,000 unit) tablet 50 mcg PO DAILY supplement 08/23/22 levothyroxine 100 mcg tablet 112 mcg PO DAILY thyroid 08/23/22 prednisone 10 mg tablet 10 mg PO DAILY #52 tabs 08/24/22 flaxseed oil 1,000 mg capsule 1,000 mg PO DAILY 03/25/23 Allergies Allergies Gadolinium-MRI Contrast Medium (CONTRAST) Allergy (Verified 04/18/24 16:57) Hives Iodinated Contrast Media (Iodinated Contrast Media - IV Dye) Allergy (Verified 04/18/24 16:57) Hives iodine Allergy (Verified 04/18/24 16:57) Hives teriparatide (From Forteo) Adverse Reaction (Unknown, Verified 04/18/24 16:57) Other I don't know. The calcium got into my blood. Sleep Disorder Evaluation Hx of Sleep Apnea: No Do you snore loudly (louder than talking or can be heard through closed doors)?: No Do you often feel tired/ fatigued/ sleepy during daytime?: No Has anyone observed you stop breathing during sleep?: No History of Hypertension (for STOP score): Yes STOP Results: Negative Medical Utilization Medical Devices Do you use a peak flow meter at home?: Yes Do you use a spacer device with your inhalers?: No Medical Utilization Number of hospital visits in the last year?: 0 Number of emergency room visits in the last year?: 0 Do you see your physician on a regular schedule?: Yes How often?: every 6 months Advanced Directives Advanced Directives Power of Supervisor [employer]: Yes Living Will: Yes Advance Directives Information Provided: Yes Advance Directives on File: Yes DNR Order?:: No Past Medical History Covid-19 Screening Physicial Symptoms Other Clinical Concerns Exposure Risk Pertinent Comorbidities 65 years or older:: Yes Has a chronic lung disease or moderate to severe asthma:: Yes Diabetic:: Yes Medical History Medical History Leukemia Hypokalemia Hypophosphatemia High output ileostomy Right bundle branch block History of syncope Ileostomy in place GERD (gastroesophageal reflux disease) History of DVT (deep vein thrombosis) (~10/2015) Atrial fibrillation with RVR Essential hypertension Rjmqk-gnvpxm-owev disease Small bowel obstruction AML (acute myeloid leukemia) in remission (~01/12/22) Hypothyroidism Surgical History Surgical History History of bone marrow transplant H/O ileostomy History of total colectomy Bone marrow transplant status Significant Family History Family History Mother Diabetes Heart disease Father Cancer Liver CA, age 84. Alcoholism Social History Smoking History Smoking Status: Never smoker Alcohol Use Alcohol Usage: No Occupation Occupation (List type of work in comments):: Retired Hobbies, Recreation, Social Activities Hobbies: Sewing and Reading Recreational Activities: I am able to engage in most, but not all activities Functioning ADL/IADL Current Ability Current Ability: Independent: Self-Care (e.g.,grooming, dressing, & bathing), Independent: Ambulation, Independent: Transfer and Independent: Household tasks (e.g., light meal prep, laundry, shopping) Pt Functioning Prior to Problem Prior Functioning: Self-Care (e.g.,grooming, dressing, & bathing): Independent, Ambulation: Independent, Transfer: Independent and Household tasks (e.g., light meal prep, laundry, shopping): Independent Social Environment Status Marital Status: Current Living Arrangements Living Environment:: Spouse Children How many children do you have?: 2 Do any of your children live nearby?: Yes Safety Do you feel safe in your surroundings?: Yes Assistance Do you need any assistance at home?: no Review of Systems Review of Systems Review of Systems Respiratory: Reports SOB upon Exertion, Wheezing, Appetite, Normal and Fatigue; Denies Cough, Hemoptysis, Pleuritic Pain, SOB at Rest, Sputum production, Dizziness/Lightheadedness, PVD, Sexual changes or Sleep, Normal Pain Is Patient Pain Free?: Yes Risk Factor Assessment Chief Complaint Chief Complaint: RLD, bronchiectasis Vital Signs Pulse Rate: 81 Pulse Ox: 95 Blood Pressure: 120/70 Diabetes Diabetic History: Type II Nutrition Referral for Diabetes: No Obesity Height: 4 ft 10 in Weight:: 160 lb Weight in Pounds: 160.0 lbs Body Mass Index (BMI): 33.4 Physical Activity Physical Inactivity: Reg Exercise 30 min/day Risk Stratification Risk Guidelines: Lowest Risk: Risk Factor for Smoking, Moderate Risk: Risk Factor for Dyslipidemia and Highest Risk: Risk Factor for Diabetes and Risk Factor for Obesity For Smoking Smoking Risk Guidelines For Dyslipidemia Dyslipidemia Risk Guidelines For Diabetes Mellitus Diabetes Risk Guidelines For Obesity/Overweight Obesity/Overweight Risk Guidelines For Hypertension Hypertension Risk Guidelines For Sedentary Lifestyle Sedentary Lifestyle Risk Guidelines For Depression Depression Risk Guidelines Motivation Motivation to Participate On a scale of 1 to 10, how prepared are you to commit to attending program?: 10 What do you see as barriers to successfully being able to complete the program?: no What do you see as the benefits of succesfully completing the program? In other words, what do you hope to get out of participating in the program?: Wants to walk a mile Are there issues you are dealing with that will interfere with completing the program?: no Do you have a spouse or signficant other, family or friends who will help support you to complete the program?: yes
[2024-09-06 13:56] VITALS: BP 120/70; PULSE 81; O2SAT 95
--- NOTE | 2024-09-06 14:42 | PR.ITP_ITS ---
General Information2 General Information Admitting Diagnosis: RLD, bronchiectasis Personal Learning Style/Barriers Personal Learning Style:: Audio/Visual and Written Barriers to Learning: None Education/Goals [place] Patient Goals: Increase muscle strength: Initial Assessment, Experience less dyspnea: Initial Assessment, Improve energy level: Initial Assessment, Participate in home exercise: Initial Assessment, Improve the ability to cope with ADLs: Initial Assessment, Improve knowledge of lung disease: Initial Assessment and Improve my quality of life: Initial Assessment Exercise - Initial Assessment Visit Date of Eval: 09/06/24 (initial eval ) Problem/Goals Problems: Deconditioning Goals:: Aerobic exercise 30-60 mins x 12 weeks [36 sessions] Physician Prescribed Exercise Modalities: Treadmill, Rower, Schwinn Airdyne AD-7, [facility] Stepper, Sifteo Pro- II Ergometer and Sifteo Lateral [place] Can Worker Frequency (days/week): 3 Duration (Minutes):: 30-45 Intensity: 60-80% of age predicted maximum heart rate reserve Current METSs:: 2.0 Target HR:: 110 (88-110) Resting Blood Pressure: 120/70 Minimum SpO2 with exercise: 95 Plan Plan and Plan to Review:: Benefits of exercise, Core components of exercise, How to measure dyspnea level, How to monitor dyspnea level, Exercise intensity, Exercise safety guideline, Home exercise guidelines and Gilberto: 3-4/11-13 Home Exercise Mode: Walking Nutrition/Wt Mgmt - Initial Visit Date of Eval: 09/06/24 (initial eval ) Problems/Goals Problems: Overweight Goals: Wt Loss 1-2 lbs per week Weight Management Admit Height:: 4 ft 10 in Admit Weight:: 160 lb Admit BMI:: 33.4 Intervention Intervention/Plan: Instruct on ideal BMI & set weight loss goal w/patient, Assist pt to ID & incorporate diet changes for weight loss by S9, Refer to Structured Weight Loss program as appropriate, Encourage goal of using 250- 300dcal per session for weight loss and Other additional plan/interventions Plan Nutrition Plan: Yes: Review BMI or WC & identify target wt & strategies for wt control, Yes: Nutrition education class:, Yes: Medication education class [Prednisone]:, Yes: Weight control education class:, Yes: Education re: Need for ongoing weight monitoring, Yes: Food diary: and Yes: Physical activity log: Nutrition/Wt Mgmt - 30-Day Weight Management Height: 4 ft 10 in Weight:: 160 lb BMI: 33.4 Nutrition/Wt Mgmt - 60-Day Weight Management Height: 4 ft 10 in Weight:: 160 lb BMI: 33.4 Nutrition/Wt Mgmt - 90-Day Weight Management Height: 4 ft 10 in Weight:: 160 lb BMI: 33.4 Nutrition/Wt Mgmt - Final Weight Management Height: 4 ft 10 in Weight:: 160 lb BMI: 33.4 Psychosocial - Initial Assess Visit Date of Eval: 09/06/24 (initial eval ) Problems/Goals History of Emotional Disorders: Anxious and Depression Psychosocial Goals: 1. Patient is free from overwhelming symtoms of depression (or anxiety, 2. Identifies personal stressors & states the strategies for managing, 3. Identifies activities to decrease isolation and/or symptoms of, 4. Improved psychosocial coping skills., 5. Verbalizes coping strategies., 6. Adequate treatment of depression. and 7. Improved Q.O.L. Self-reported stressors: Recent Illness Psychosocial Test Tool Used:: Pulmonary QOL and PHQ-9 Questionnaire Referred to MD for counseling:: No Referral to Behavioral Health PS - Interventions: Yes: Attend Stress Management Classes Intervention/Plan: See List Interventions/Plan:: Assess stressors,coping strategies & signs of derpression on admission, Instruct/assist pt to develop coping & personal stress Mgt strategies, Refer to Behavioral Health if appropriate, Refer to Physician if appropriate, Instruct patient to recognize signs & symptoms of depression, Instruct patient to recog and Other additional plan/intervention Psychosocial - 30-Day Problems/Goals History of Emotional Disorders: Anxious and Depression Psychosocial Goals: 1. Patient is free from overwhelming symtoms of depression (or anxiety, 2. Identifies personal stressors & states the strategies for managing, 3. Identifies activities to decrease isolation and/or symptoms of, 4. Improved psychosocial coping skills., 5. Verbalizes coping strategies., 6. Adequate treatment of depression. and 7. Improved Q.O.L. Self-reported stressors: Recent Illness Psychosocial Test Tool Used:: Pulmonary QOL and PHQ-9 Questionnaire Referred to MD for counseling:: No Referral to Behavioral Health PS - Interventions: Yes: Attend Stress Management Classes Plan Interventions/Plan:: Assess stressors,coping strategies & signs of derpression on admission, Instruct/assist pt to develop coping & personal stress Mgt strategies, Refer to Behavioral Health if appropriate, Refer to Physician if appropriate, Instruct patient to recognize signs & symptoms of depression, Instruct patient to recog and Other additional plan/intervention Psychosocial - 60-Day Problems/Goals History of Emotional Disorders: Anxious and Depression Psychosocial Goals: 1. Patient is free from overwhelming symtoms of depression (or anxiety, 2. Identifies personal stressors & states the strategies for managing, 3. Identifies activities to decrease isolation and/or symptoms of, 4. Improved psychosocial coping skills., 5. Verbalizes coping strategies., 6. Ad equate treatment of depression. and 7. Improved Q.O.L. Self-reported stressors: Recent Illness Psychosocial Test Tool Used:: Pulmonary QOL and PHQ-9 Questionnaire Referred to MD for counseling:: No Referral to Behavioral Health PS - Interventions: Yes: Attend Stress Management Classes Plan Interventions/Plan:: Assess stressors,coping strategies & signs of derpression on admission, Instruct/assist pt to develop coping & personal stress Mgt strategies, Refer to Behavioral Health if appropriate, Refer to Physician if appropriate, Instruct patient to recognize signs & symptoms of depression, Instruct patient to recog and Other additional plan/intervention Psychosocial - 90-Day Problems/Goals History of Emotional Disorders: Anxious and Depression Psychosocial Goals: 1. Patient is free from overwhelming symtoms of depression (or anxiety, 2. Identifies personal stressors & states the strategies for m anaging, 3. Identifies activities to decrease isolation and/or symptoms of, 4. Improved psychosocial coping skills., 5. Verbalizes coping strategies., 6. Adequate treatment of depression. and 7. Improved Q.O.L. Self-reported stressors: Recent Illness Psychosocial Test Tool Used:: Pulmonary QOL and PHQ-9 Questionnaire Referred to MD for counseling:: No Referral to Behavioral Health PS - Interventions: Yes: Attend Stress Management Classes Plan Interventions/Plan:: Assess stressors,coping strategies & signs of derpression on admission, Instruct/assist pt to develop coping & personal stress Mgt strajhon duke, Refer to Behavioral Health if appropriate, Refer to Physician if appropriate, Instruct patient to recognize signs & symptoms of depression, Instruct patient to recog and Other additional plan/intervention Psychosocial - Final Assess Problems/Goals History of Emotional Disorders: Anxious and Depression Psychosocial Goals: 1. Patient is free from overwhelming symtoms of depression (or anxiety, 2. Identifies personal stressors & states the strategies for managing, 3. Identifies activities to decrease isolation and/or symptoms of, 4. Improved psychosocial coping skills., 5. Verbalizes coping strategies., 6. Adequate treatment of depression. and 7. Improved Q.O.L. Self-reported stressors: Recent Illness Psychosocial Test Tool Used:: Pulmonary QOL and PHQ-9 Questionnaire Referred to MD for counseling:: No Referral to Behavioral Health PS - Interventions: Yes: Attend Stress Management Classes Plan Interventions/Plan:: Assess stressors,coping strategies & signs of derpression on admission, Instruct/assist pt to develop coping & personal stress Mgt strategies, Refer to Behavioral Health if appropriate, Refer to Physician if appropriate, Instruct patient to recognize signs & symptoms of depression, Instruct patient to recog and Other additional plan/intervention Oxygen & Oxygen Titration Init Visit Date of Eval: 09/06/24 (initial eval ) Initial Assessment Oxygen on Admission: None SpO2:: 95 Patient Reports:: No cough and Non-productive cough Plans Plan: Monitor SpO2 rest & with exercise, Recommend appropriate FiO2 to Pt/MD, Assist to contact DME for O2, Train appropriate O2 use at rest, Train appropriate O2 use with exercise and Train O2 safety & systems Reviewed prescribed medications:: Purpose, Schedule, Side effects and Importance of compliance Instruct correct technique/timing & care:: MDI, DPI, Nebulizer and Return demo use of inhaler Bronchial Hygiene Plan: Controlled cough, CPT, Vibratory PEP device, VEST, Role of exercise in secretion clearance, NS Nasal spray, Hydration, Hand hygiene, Evaluate sputum, When to call MD, Signs/symptoms to report:, Influenza/Pneumovax vaccines and Cleaning of respiratory equipment Oxygen & Oxygen Titration 30D Reassessment SpO2:: 95 Oxygen & Oxygen Titration 60D Reassessment SpO2:: 95 Oxygen & Oxygen Titration 90D Reassessment SpO2:: 95 Oxygen & Oxygen Titration ISA Reassessment SpO2:: 95 Core Components - Initial Visit Date of Eval: 09/06/24 (initial eval ) Hypertension Hypertension Diagnosis:: Hypertension ICD-10 I10 BP: 120/70 [employer] Hypertension Guidelines Outcomes/Goals: Able to verbalize/achieve optimal blood pressure <130/80, Incorporates diet changes & exercise for blood pressure control by DC and Other additional outcomes/goals Tobacco - Initial Assessment Tobacco Program Goals Tobacco Use: Non-smoker Exacerbation Mgmt & Airway Clearance Bronchial Hygiene Problems:: Ineffective secretion clearance and Respiratory infection Prevention/Management Goals: Pt demonstrates effective cough, effective secretion clearance. and Pt describes signs and symptoms of infection. Patient Reports:: No cough and Non-productive cough Plan: Monitor SpO2 rest & with exercise, Recommend appropriate FiO2 to Pt/MD, Assist to contact DME for O2, Train appropriate O2 use at rest, Train appropriate O2 use with exercise and Train O2 safety & systems Instruct correct technique/timing & care:: MDI, DPI, Nebulizer and Return demo use of inhaler Bronchial Hygiene Plan: Controlled cough, CPT, Vibratory PEP device, VEST, Role of exercise in secretion clearance, NS Nasal spray, Hydration, Hand hygiene, Evaluate sputum, When to call MD, Signs/symptoms to report:, Influenza/Pneumovax vaccines and Cleaning of respiratory equipment Medication Interventions/plans: Instruct on medication effects & side effects, Review medication list w/patient every two weeks, Instruct importance of taking meds as ordered & assist problem solving and Other additional Medication Goals: Adherence to prescribed medications and Correct technique/timing & care of MDI, DPI, nebulizer, and spacer. Medications: Yes: MDI, Yes: DPI and Yes: NEB Reviewed prescribed medications:: Purpose, Schedule, Side effects and Importance of compliance Core Components - 30 DAYS Hypertension Hypertension Diagnosis:: Hypertension ICD-10 I10 Resting Blood Pressure:: 120/70 [employer] Hypertension Guidelines Outcomes/Goals: Able to verbalize/achieve optimal blood pressure <130/80, Incorporates diet changes & exercise for blood pressure control by DC and Other additional outcomes/goals Tobacco - 30-Day Tobacco Program Goals Tobacco Use: Non-smoker Core Components - 60 DAYS Hypertension Hypertension Diagnosis:: Hypertension ICD-10 I10 Resting Blood Pressure:: 120/70 [employer] Hypertension Guidelines Outcomes/Goals: Able to verbalize/achieve optimal blood pressure <130/80, Incorporates diet changes & exercise for blood pressure control by DC and Other additional outcomes/goals Tobacco - 60-Day Tobacco Program Goals Tobacco Use: Non-smoker Core Components - 90 DAYS Hypertension Hypertension Diagnosis:: Hypertension ICD-10 I10 Resting Blood Pressure:: 120/70 [employer] Hypertension Guidelines Outcomes/Goals: Able to verbalize/achieve optimal blood pressure <130/80, Incorporates diet changes & exercise for blood pressure control by DC and Other additional outcomes/goals Tobacco - 90-Day Tobacco Program Goals Tobacco Use: Non-smoker Core Components - Final Hypertension Hypertension Diagnosis:: Hypertension ICD-10 I10 Resting Blood Pressure:: 120/70 [employer] Hypertension Guidelines Outcomes/Goals: Able to verbalize/achieve optimal blood pressure <130/80, Incorporates diet changes & exercise for blood pressure control by DC and Other additional outcomes/goals Tobacco - Final Tobacco Program Goals Tobacco Use: Non-smoker Patient Health Questionnaire PHQ-9 Screening Initial Assessment: 1. Little interest or pleasure in doing things: Not at all 2. Feeling down, depressed, or hopeless: Not at all 3. Trouble falling or staying asleep, or sleeping too much: Several days 4. Feeling tired or having little energy: Several days 5. Poor appetite or overeating: Several days 6. Feeling bad about yourself -- or that you are a failure or have let yourself or your family down: Several days 7. Trouble concentrating on things, such as reading the newspaper or watching television: Not at all 8. Moving or speaking so slowly that other people could have noticed. Or the opposite - being so fidgety or restless that you have been moving around a lot more than usual: Not at all 9. Thoughts that you would be better off , or of hurting yourself in some way: Not at all How difficult have these problems made it for you to do your work, take care of things at home, or get along with other people?: Somewhat difficult Total Score: 4 Knowledge Questionaire (BCKQ) Information Information: [place] COPD Knowledge Questionnaire (BCKQ) This questionnaire is designed to find out what you know about your lung problem. It should be completed without help form anyone else. This usually takes between 10 and 20 minutes. Your answers will help us to find out what information you need to help you to understand and manage your lung condition. Olayinka the ak chin which you think is the correct answer. Self-Efficacy 6-Item Scale Initial Assessment: We would like to know how confident you are in doing certain activities. Please select your confidence level for: Fatigue Select Number: 1 Physical Discomfort or Pain Select Number: 10 Emotional Distress Select Number: 10 Other Symptoms or Health Problems Select Number: 10 Different Tasks and Activities Select Number: 1 Medication Select Number: 6 Total Score:: 6 Nutrition Survey Nutrition Survey Instructions Scoring Instructions Nutrition Survey Initial: Have you lost >10 lbs over the past 2 months without trying?: No Are you following a special diet at home for diabetes, low fat, or low salt?: No Are you interested in meeting with a dietitian for help understanding your diet?: No (maybe) Do you eat less than 3 meals a day?: No Do you eat fatty meats (olivares, sausage, ribs, etc), fried foods, desserts, large amounts of salad dressings, margarine, butter, or cheese most days?: Yes Do you have food allergies? [Enter types in comment field]: Yes Do you eat in restaurants more than 3 times a week?: Yes Do you season food with salt, seasoning salt, or garlic salt?: Yes Do you used canned, boxed, frozen meals, or soups, seasoning packets?: Yes Total Score:: 5
[2024-09-06 14:48] VITALS: BP 120/70; BMI 33.4
[2024-09-06 15:05] VITALS: BP 120/70; O2SAT 95
[2024-09-06 15:08] VITALS: BMI 33.4
== END | disposition home or self-care (01) ==
LOC: PR 13:18
PROVIDERS: PCP Internal Medicine
DX: J47.9 Bronchiectasis, uncomplicated (principal)

== ENCOUNTER 2024-09-18 10:00 | Outpatient (RCR) | payer MEDICARE, SELFPAY ==
[2024-09-06 14:48] VITALS: BMI 33.4
== END 2024-09-19 23:59 ==
LOC: PR 10:00
PROVIDERS: PCP Internal Medicine
DX: J98.4 Other disorders of lung (principal); J47.9 Bronchiectasis, uncomplicated
CPT/HCPCS: 97150; G0239

== ENCOUNTER 2024-10-06 10:00 | Outpatient (RCR) | payer MEDICARE, SELFPAY ==
[2024-09-06 14:48] VITALS: BMI 33.4
--- NOTE | 2024-10-05 09:30 | PCM.CR.ITP ---
Psychosocial - Initial Assess Target Goals Target Goals Nutrition Survey Nutrition Survey Instructions Scoring Instructions Nutrition - 30-Day Assessment Visit Session #:: 8 Psychosocial - 30-Day Assess Target Goals Target Goals Psychosocial - 60-Day Assess Target Goals Target Goals Psychosocial - 90-Day Assess Target Goals Target Goals Psychosocial - Final Assessmen Target Goals Target Goals
[2024-10-05 09:33] VITALS: BP 130/80
--- NOTE | 2024-10-05 09:44 | PR.ITP_ITS ---
Exercise - Initial Assessment Visit Session Number:: 8 Physician Prescribed Exercise Modalities: Treadmill, SciFit Stepper and SciFit Pro-II Ergometer Current METSs:: 2.2 Target HR:: 110 (88-110) Current RPD:: 2-3 Maximum Exercise HR:: 132 Resting Blood Pressure: 130/80 Maximum Exercise Blood Pressure: 148/80 Minimum SpO2 with exercise: 89 EKG Type: NSR to ST with rare ectopy Nutrition/Wt Mgmt - Initial Visit Session Number:: 8 Weight Management Admit Height:: 4 ft 10 in Admit Weight:: 169 lb Admit BMI:: 35.3 Nutrition/Wt Mgmt - 30-Day Visit Date of Eval: 10/05/24 Session Number:: 8 Weight Management Height: 4 ft 10 in Weight:: 169 lb BMI: 35.3 Weight Goals Progress:: Progressing (Pt is scheduled to attend nutrition class. Will be encouraged to eat a heart healthy low sodium diet.) Nutrition/Wt Mgmt - 60-Day Visit Session Number:: 8 Weight Management Height: 4 ft 10 in Weight:: 169 lb BMI: 35.3 Nutrition/Wt Mgmt - 90-Day Visit Session Number:: 8 Weight Management Height: 4 ft 10 in Weight:: 169 lb BMI: 35.3 Nutrition/Wt Mgmt - Final Visit Session Number:: 8 Weight Management Height: 4 ft 10 in Weight:: 169 lb BMI: 35.3 Psychosocial - Initial Assess Visit Session Number:: 8 Problems/Goals History of Emotional Disorders: Anxious and Depression Psychosocial Goals: 2. Identifies personal stressors & states the strategies for managing, 3. Identifies activities to decrease isolation and/or symptoms of, 4. Improved psychosocial coping skills., 5. Verbalizes coping strategies., 6. Adequate treatment of depression. and 7. Improved Q.O.L. Self-reported stressors: Recent Illness Psychosocial Test Tool Used:: Pulmonary QOL and PHQ-9 Questionnaire Referral to Behavioral Health PS - Interventions: Yes: Attend Stress Management Classes Intervention/Plan: See List Interventions/Plan:: Assess stressors,coping strategies & signs of derpression on admission, Instruct/assist pt to develop coping & personal stress Mgt strategies, Refer to Behavioral Health if appropriate, Refer to Physician if appropriate, Instruct patient to recognize signs & symptoms of depression and Instruct patient to recog Comments:: Pt is scheduled to attend stress management class. Psychosocial - 30-Day Visit Date of Eval: 10/05/24 Session Number:: 8 Problems/Goals History of Emotional Disorders: Anxious and Depression Psychosocial Goals: 2. Identifies personal stressors & states the strategies for managing, 3. Identifies activities to decrease isolation and/or symptoms of, 4. Improved psychosocial coping skills., 5. Verbalizes coping strategies., 6. Adequate treatment of depression. and 7. Improved Q.O.L. Self-reported stressors: Recent Illness Psychosocial Test Tool Used:: Pulmonary QOL and PHQ-9 Questionnaire Referral to Behavioral Health PS - Interventions: Yes: Attend Stress Management Classes Plan Interventions/Plan:: Assess stressors,coping strategies & signs of derpression on admission, Instruct/assist pt to develop coping & personal stress Mgt strategies, Refer to Behavioral Health if appropriate, Refer to Physician if appropriate, Instruct patient to recognize signs & symptoms of depression and Instruct patient to recog Comments:: Pt is scheduled to attend stress management class. Psychosocial - 60-Day Visit Session Number:: 8 Problems/Goals History of Emotional Disorders: Anxious and Depression Psychosocial Goals: 2. Identifies personal stressors & states the strategies for managing, 3. Identifies activities to decrease isolation and/or symptoms of, 4. Improved psychosocial coping skills., 5. Verbalizes coping strategies., 6. Adequate treatment of depression. and 7. Improved Q.O.L. Self-reported stressors: Recent Illness Psychosocial Test Tool Used:: Pulmonary QOL and PHQ-9 Questionnaire Referral to Behavioral Health PS - Interventions: Yes: Attend Stress Management Classes Plan Interventions/Plan:: Assess stressors,coping strategies & signs of derpression on admission, Instruct/assist pt to develop coping & personal stress Mgt strategies, Refer to Behavioral Health if appropriate, Refer to Physician if appropriate, Instruct patient to recognize signs & symptoms of depression and Instruct patient to recog Comments:: Pt is scheduled to attend stress management class. Psychosocial - 90-Day Visit Session Number:: 8 Problems/Goals History of Emotional Disorders: Anxious and Depression Psychosocial Goals: 2. Identifies personal stressors & states the strategies for managing, 3. Identifies activities to decrease isolation and/or symptoms of, 4. Improved psychosocial coping skills., 5. Verbalizes coping strategies., 6. Adequate treatment of depression. and 7. Improved Q.O.L. Self-reported stressors: Recent Illness Psychosocial Test Tool Used:: Pulmonary QOL and PHQ-9 Questionnaire Referral to Behavioral Health PS - Interventions: Yes: Attend Stress Management Classes Plan Interventions/Plan:: Assess stressors,coping strategies & signs of derpression on admission, Instruct/assist pt to develop coping & personal stress Mgt strategies, Refer to Behavioral Health if appropriate, Refer to Physician if appropriate, Instruct patient to recognize signs & symptoms of depression and Instruct patient to recog Comments:: Pt is scheduled to attend stress management class. Psychosocial - Final Assess Visit Session Number:: 8 Problems/Goals History of Emotional Disorders: Anxious and Depression Psychosocial Goals: 2. Identifies personal stressors & states the strategies for managing, 3. Identifies activities to decrease isolation and/or symptoms of, 4. Improved psychosocial coping skills., 5. Verbalizes coping strategies., 6. Adequate treatment of depression. and 7. Improved Q.O.L. Self-reported stressors: Recent Illness Psychosocial Test Tool Used:: Pulmonary QOL and PHQ-9 Questionnaire Referral to Behavioral Health PS - Interventions: Yes: Attend Stress Management Classes Plan Interventions/Plan:: Assess stressors,coping strategies & signs of derpression on admission, Instruct/assist pt to develop coping & personal stress Mgt strategies, Refer to Behavioral Health if appropriate, Refer to Physician if appropriate, Instruct patient to recognize signs & symptoms of depression and Instruct patient to recog Comments:: Pt is scheduled to attend stress management class. Oxygen & Oxygen Titration Init Visit Session Number:: 8 Initial Assessment SpO2:: 89 Oxygen & Oxygen Titration 30D Visit Date of Eval: 10/05/24 Session Number:: 8 Reassessment SpO2:: 89 Oxygen & Oxygen Titration 60D Visit Date of Eval: 10/05/24 Session Number:: 8 Reassessment SpO2:: 89 Oxygen & Oxygen Titration 90D Visit Date of Eval: 10/05/24 Session Number:: 8 Reassessment SpO2:: 89 Oxygen & Oxygen Titration ISA Visit Date of Eval: 10/05/24 Session Number:: 8 Reassessment SpO2:: 89 Core Components - Initial Visit Session Number:: 8 Hypertension Hypertension Diagnosis:: Hypertension ICD-10 I10 BP: 130/80 [place] Hypertension Guidelines Blood Pressure: 148/80 Outcomes/Goals: Able to verbalize/achieve optimal blood pressure <130/80 and Incorporates diet changes & exercise for blood pressure control by DC Tobacco - Initial Assessment Tobacco Program Goals Tobacco Use: Non-smoker Diabetes Diabetes:: No Core Components - 30 DAYS Visit Date of Eval: 10/05/24 Session Number:: 8 Hypertension Hypertension Diagnosis:: Hypertension ICD-10 I10 Resting Blood Pressure:: 130/80 [place] [employer] Hypertension Guidelines Peak Exercise Blood Pressure:: 148/80 Change in medication: No Outcomes/Goals: Able to verbalize/achieve optimal blood pressure <130/80 and Incorporates diet changes & exercise for blood pressure control by DC Interventions/plan: Instruct on optimal blood pressure, hypertension & medications and Instruct on effects of sodium, alcohol, stress, exercise &hypertension 30 day Reassessments:: Progressing Reassessment Notes & Comments:: BP' are within AHA normal limits most of the time. Tobacco - 30-Day Tobacco Program Goals Tobacco Use: Non-smoker Exacerbation Mgmt & Airway Clearance Bronchial Hygiene Plan: Yes: Pt demonstrates correctly for effective cough, Yes: Pt demo correct for CPT, Yes: Pt demo correct for device, Yes: Pt demo correct for NS nasal spray, Yes: Pt demo correct for sputum management, Yes: Pt demo correct for improved hydration, Yes: Pt demo correct for hand hygiene, Yes: Pt demo correct for evalute sputum, Yes: Pt demo correct for verbalize when to call MD and Yes: Pt demo correct for cleaning of respiratory equipment Medication Medication list reviewed:: Yes Taking medications 100% of the time:: Met Diabetes Diabetes:: No Core Components - 60 DAYS Visit Session Number:: 8 Hypertension Hypertension Diagnosis:: Hypertension ICD-10 I10 Resting Blood Pressure:: 130/80 [place] [employer] Hypertension Guidelines Peak Exercise Blood Pressure:: 148/80 Change in medication: No Outcomes/Goals: Able to verbalize/achieve optimal blood pressure <130/80 and Incorporates diet changes & exercise for blood pressure control by DC Interventions/plan: Instruct on optimal blood pressure, hypertension & medications and Instruct on effects of sodium, alcohol, stress, exercise &hypertension 60 day Reassessments:: Progressing Reassessment Notes & Comments:: BP' are within AHA normal limits most of the time. Tobacco - 60-Day Tobacco Program Goals Tobacco Use: Non-smoker Exacerbation Mgmt & Airway Clearance Bronchial Hygiene Plan: Yes: Pt demonstrates correctly for effective cough, Yes: Pt demo correct for CPT, Yes: Pt demo correct for device, Yes: Pt demo correct for NS nasal spray, Yes: Pt demo correct for sputum management, Yes: Pt demo correct for improved hydration, Yes: Pt demo correct for hand hygiene, Yes: Pt demo correct for evalute sputum, Yes: Pt demo correct for verbalize when to call MD and Yes: Pt demo correct for cleaning of respiratory equipment Medication Taking medications 100% of the time:: Met Diabetes Diabetes:: No Core Components - 90 DAYS Visit Session Number:: 8 Hypertension Hypertension Diagnosis:: Hypertension ICD-10 I10 Resting Blood Pressure:: 130/80 [place] [employer] Hypertension Guidelines Peak Exercise Blood Pressure:: 148/80 Outcomes/Goals: Able to verbalize/achieve optimal blood pressure <130/80 and Incorporates diet changes & exercise for blood pressure control by DC Interventions/plan: Instruct on optimal blood pressure, hypertension & medications and Instruct on effects of sodium, alcohol, stress, exercise &hypertension 90 day Reassessments:: Progressing Reassessment Notes & Comments:: BP' are within AHA normal limits most of the time. Tobacco - 90-Day Tobacco Program Goals Tobacco Use: Non-smoker Exacerbation Mgmt & Airway Clearance Bronchial Hygiene Plan: Yes: Pt demonstrates correctly for effective cough, Yes: Pt demo correct for CPT, Yes: Pt demo correct for device, Yes: Pt demo correct for NS nasal spray, Yes: Pt demo correct for sputum management, Yes: Pt demo correct for improved hydration, Yes: Pt demo correct for hand hygiene, Yes: Pt demo correct for evalute sputum, Yes: Pt demo correct for verbalize when to call MD and Yes: Pt demo correct for cleaning of respiratory equipment Diabetes Diabetes:: No Core Components - Final Visit Session Number:: 8 Hypertension Hypertension Diagnosis:: Hypertension ICD-10 I10 Resting Blood Pressure:: 130/80 [place] [employer] Hypertension Guidelines Peak Exercise Blood Pressure:: 148/80 Outcomes/Goals: Able to verbalize/achieve optimal blood pressure <130/80 and Incorporates diet changes & exercise for blood pressure control by DC Tobacco - Final Tobacco Program Goals Tobacco Use: Non-smoker Exacerbation Mgmt & Airway Clearance Bronchial Hygiene Plan: Yes: Pt demonstrates correctly for effective cough, Yes: Pt demo correct for CPT, Yes: Pt demo correct for device, Yes: Pt demo correct for NS nasal spray, Yes: Pt demo correct for sputum management, Yes: Pt demo correct for improved hydration, Yes: Pt demo correct for hand hygiene, Yes: Pt demo correct for evalute sputum, Yes: Pt demo correct for verbalize when to call MD and Yes: Pt demo correct for cleaning of respiratory equipment Diabetes Diabetes:: No Patient Health Questionnaire PHQ-9 Screening 30-Day Re-eval Assessment: 1. Little interest or pleasure in doing things: Not at all 2. Feeling down, depressed, or hopeless: Not at all 3. Trouble falling or staying asleep, or sleeping too much: Several days 4. Feeling tired or having little energy: Several days 5. Poor appetite or overeating: Several days 6. Feeling bad about yourself -- or that you are a failure or have let yourself or your family down: Several days 7. Trouble concentrating on things, such as reading the newspaper or watching television: Not at all 8. Moving or speaking so slowly that other people could have noticed. Or the opposite - being so fidgety or restless that you have been moving around a lot more than usual: Not at all 9. Thoughts that you would be better off , or of hurting yourself in some way: Not at all How difficult have these problems made it for you to do your work, take care of things at home, or get along with other people?: Somewhat difficult Total Score: 4 Knowledge Questionaire (BCKQ) Information Information: [place] COPD Knowledge Questionnaire (BCKQ) This questionnaire is designed to find out what you know about your lung problem. It should be completed without help form anyone else. This usually takes between 10 and 20 minutes. Your answers will help us to find out what information you need to help you to understand and manage your lung condition. Olayinka the redding which you think is the correct answer. Self-Efficacy 6-Item Scale 30-Day Re-eval Assessment: We would like to know how confident you are in doing certain activities. Please select your confidence level for: Fatigue Select Number: 1 Physical Discomfort or Pain Select Number: 10 Emotional Distress Select Number: 10 Other Symptoms or Health Problems Select Number: 10 Different Tasks and Activities Select Number: 1 Medication Select Number: 6 Total Score:: 6 Nutrition Survey Nutrition Survey Instructions Scoring Instructions
[2024-10-05 09:51] VITALS: BP 130/80; BMI 35.3
[2024-10-05 10:03] VITALS: BP 130/80; BP 148/80; O2SAT 89
== END 2024-10-20 23:59 ==
LOC: PR 10:00
PROVIDERS: PCP Internal Medicine
DX: J98.4 Other disorders of lung (principal); J47.9 Bronchiectasis, uncomplicated
CPT/HCPCS: 97150; G0239

== ENCOUNTER 2025-06-07 06:22 | Emergency (ER) | payer MEDICARE, SELFPAY ==
[2024-10-05 09:51] VITALS: BMI 35.3
[2025-06-07 06:23] VITALS: BP 128/63; PULSE 72; RESP 16; TEMP 36.6; O2SAT 100; BMI 34.5
[2025-06-07 06:26] VITALS: BP 128/63; PULSE 67; RESP 16; TEMP 36.6; O2SAT 100
[2025-06-07] MEDS: 0.9% Normal Saline (1000mL) 1,000 ML 999 ML IV (06:58)
[2025-06-07 07:01] LABS: Hematocrit 44.8 % (37-47); Hemoglobin 15.3 g/dL (12.0-15.0); Immature Granulocytes Count 0.040 X10^3/uL (0.0-0.0); Mean Corp Hgb Conc 34.2 g/dL (32-36); Mean Corpuscular Volume 97.4 fL (81-99); Mean Platelet Vol. 10.7 fl (6.2-12.0); NRBC Flagged by Analyzer 0 % (0-5); Platelet Count 204 K/mm3 (150-450); RBC Distribution Width CV 14.3 % (11.6-14.6); RBC Distribution Width SD 51.1 fl (35.1-43.9); Red Blood Count 4.60 M/mm3 (4.2-5.4); White Blood Count 9.2 K/mm3 (4.4-11.0)
--- OUTSIDE RECORDS SUMMARY | 2025-06-07 07:07 | XMS RPT_ITS | CCD ---
Author Organization [facility] Care Team Providers Care Visual And Stock Associate Name Role Phone CLARE BAEZ Unavailable Unavailable CLARE BAEZ Unavailable Unavailable Lidia Lopez Unavailable Lidia Lopez Primary Care Provider Lidia Lopez MD Primary Care Provider Deshaun GRESHAM, Madelyn Mcdonough Unavailable Nereida CABA, Delroy Unavailable Shahla GRESHAM, Cade Sanz Unavailable UnavailSg Wong MD Unavailable Thong ANESTHESIA ATTENDING.LEAD HOUSEKEEPER, Amanda Unavailable Dr. Lidia Lopez Primary Care Provider Dr. Rosalia Thomason Emergency Provider Dr. Adarsh Turner Admit Provider Dr. Adarsh Turner Other Provider PALOMA Oliva Attending Provider Unavail able Dr. Greg Olmos Other Provider Justino CHENEY, GENERAL MANAGER FARM-C Nidia Attending Provider Dr. Adarsh Turner Attending Provider Dr. Greg Olmos Attending Provider Justino CHENEY, GENERAL MANAGER [employer]ARM[employer] Nidia Attending Provider Dr. Nikita Peters Emergency Provider Dr. Nan Mock Attending Provider Dr. Nan Mock Other Provider Josiah RN, Socorro Unavailable Deshaun RN, Madelyn Mcdonough Unavailable Lidia Lopez MD Primary Care Provider Delroy Padron MD Unavailable Shahla RN, Mohamud M Unavailable Unavailumang Julien MD, Sg Unavailable Thong ANESTHESIA ATTENDING.LEAD HOUSEKEEPER, Aamnda Unavailable Josiah RN, Socorro Unavailable Dr. Lidia Lopez Primary Care Provider Dr. Nikita Peters Emergency Provider Dr. Adarsh Turner Admit Provider Dr. Nan Mock Attending Provider Dr. Nan Mock Other Provider JOHN CABA, DR MURILLO Primary Care Physician Dr. Lidia Lopez Primary Care Provider Dr. Lidia Lopez Referring Provider SONJA Underwood Attending Provider [phone] Garrett BLAKE, Conchis Unavailable JOHN RAYGOZA, DR. MURILLO Attending Unavailab Macario RAYGOZA, DR. MURILLO Primary Care Unavailab Macario RAYGOZA, DR. MURILLO Primary Care Unavailab GENESIS Jaimes Admitting Unavailable CASIMIRO SALAZAR MD Attending Unavailable CASIMIRO SALAZAR MD Referring Unavailable Delgado GRESHAM, Giselle Unavailable Dr. Lidia Lopez Primary Care Provider Dr. Lidia Lopez Referring Provider SONJA Underwood Attending Provider Lidia Lopez MD Primary Care Provider Delroy Padron MD Unavailable Wily CABA, Sg Unavailable Thong ANESTHESIA ATTENDING.LEAD HOUSEKEEPER, Amanda Unavailable Josiah GRESHAM, Socorro Unavailable Garrett BLAKE, Conchis Unavailable Delgado GRESHAM, Giselle Unavailable Lidia Lopez MD Primary Care Provider LIDIA LOPEZ Primary Care Unavailable FARZANA MAGALLANES Attending Unavailable RYAN LUJAN JR. Attending LIDIA Briscoe Primary Care Unavailable DONA OLIVAS Admitting Unavaila ble FARZANA MAGALLANES Referring Unavailable Dr. Jasvir Spaulding Emergency Provider Dr. Gloria Constantino Attending Provider Delgado GRESHAM, Giselle Unavailable Cade GRESHAM, Shahla Sanz Unavailable Unavailumang Mas RN, Sarai Sanz Unavailable Unavailable Mary Yanez RN Unavailable Unavailable Masci DO, Clare A Unavailable Nereida CABA, Delroy Unavailable Josiah GRESHAM, Socorro Unavailable Garrett BLAKE, Conchis Unavailable Chace GRESHAM, Sarai Sanz Unavailable Unavailable Socorro Rahman RN Unavailable Lidia Lopez MD Primary Care Provider Rowan Betancourt Unavailable Deshaun GRESHAM, Madelyn Mcdonough Unavailable Tatyana CABA, Raghav Almaraz Unavailable [phone] Cade GRESHAM, Shahla Sanz Unavailable Unavailumang Driscoll ANESTHESIA ATTENDING.BIG DATA HADOOP DEVELOPER, Selina Unavailable Venkata ANESTHESIA ATTENDING.LEAD HOUSEKEEPER, Param Unavailable Chrissy Moser Referring Unavailable Chrissy Moser Attending Unavailable Lidia Lopez Primary Care Unavailable Chrissy Moser Referring Unavailable Chrissy Moser Attending Unavailable Talampas, Lidia D Primary Care Unavailable Talampas, Lidia D Primary Care Unavailable Chrissy Moser Attending Unavailable Chrissy Moser Referring Unavailable CharltonJitendra Attending Unavailable Talampas, Lidia D Primary Care Unavailable Chrissy Moser Referring Unavailable Chrissy Moser Attending Unavailable Talampas, Lidia D Primary Care Unavailable Venkata ANESTHESIA ATTENDING.LEAD HOUSEKEEPER, Param Unavailable Venkata ANESTHESIA ATTENDING.LEAD HOUSEKEEPER, Param Unavailable Driscoll ANESTHESIA ATTENDING.BIG DATA HADOOP DEVELOPER, Selina Unavailable TALAMPAS, LIDIA D Primary Care Unavailable JONATHAN POSEY Attending Unavailable TALAMPAS, LIDIA D Primary Care Unavailable DRISCOLL, SELINA Attending Unavailable TALAMPAS, LIDIA D Primary Care Unavailable CHRISSY MOSER Referring Unavailable TALAMPAS, LIDIA D Primary Care Unavailable CHRISSY MOSER Referring Unavailable TALAMPAS, LIDIA D Primary Care Unavailable MASCI, CLARE A Referring Unavailable TALAMPAS, LIDIA D Primary Care Unavailable MASCI, CLARE A Referring Unavailable MASCI, CLARE A Attending Unavailable TALAMPAS, LIDIA D Primary Care Unavailable DRISCOLL, SELINA Referring Unavailable TALAMPAS, LIDIA D Attending Unavailable TALAMPAS, LIDIA D Primary Care Unavailable JONATHAN POSEY Attending Unavailable TALAMPAS, LIDIA D Primary Care Unavailable JONATHAN POSEY Referring Unavailable JENN BURTON Attending Unavailable TALAMPAS, LIDIA D Primary Care Unavailable MASCI, CLARE A Referring Unavailable TALAMPAS, LIDIA D Primary Care Unavailable MASCI, CLARE A Referring Unavailable TALAMPAS, LIDIA D Primary Care Unavailable MASCI, CLARE A Referring Unavailable TALAMPAS, LIDIA D Primary Care Unavailable MASCI, CLARE A Referring Unavailable MASCI, CLARE A Attending Unavailable TALAMPAS, LIDIA D Primary Care Unavailable CHRISSY MOSER Referring Unavailable TALAMPAS, LIDIA D Primary Care Unavailable CHRISSY MOSER Referring Unavailable MARTINEZ BURTON Attending Unavailable TALAMPAS, LIDIA D Primary Care Unavailable NITHYA CASIANO Attending Unavailable TALAMPAS, LIDIA D Primary Care Unavailable SLEIK, SY LOTT Referring Unavailable SLEIK, KHALEMartha HEATHD Attending Unavailable TALAMPAS, LIDIA D Primary Care Unavailable VENKATA, PARAM Referring Unavailable TALAMPAS, LIDIA D Primary Care Unavailable TALAMPAS, LIDIA D Primary Care Unavailable SG JULIEN Attending Unavailable TALAMPAS, LIDIA D Primary Care Unavailable SOBECKS, SG Referring Unavailable TALAMPAS, LIDIA D Primary Care Unavailable SELF Referring Unavailable SEN WALTON Attending Unavailable ONOFRE JOVEL Attending Unavailable TALAMPAS, LIDIA D Primary Care Unavailable TALAMPAS, LIDIA D Primary Care Unavailable CLARE BAEZ Referring Unavailable TALAMPAS, LIDIA D Primary Care Unavailable SOBECKS, SG Referring Unavailable TALAMPAS, LIDIA D Primary Care Unavailable ONOFRE JOVEL Referring Unavailable TALAMPAS, LIDIA D Primary Care Unavailable MARIA ALEJANDRASHARRIETTSG Referring Unavailable SOBECKSHARRIETTSG Attending Unavailable TALAMPAS, LIDIA D Primary Care Unavailable NITHYA CASIANO Referring Unavailable TALAMPAS, LIDIA D Primary Care Unavailable CHRISSY MOSER Attending Unavailable TALAMPAS, LIDIA D Primary Care Unavailable TALAMPAS, LIDIA D Primary Care Unavailable XIAO COFFEY Referring Unavailable Allergies Allergy Classification Reported Allergen(s) Allergy Type Date of Onset Reaction(s) Facility Contrast Media (1 source) Contrast media Substance Allergy 4 [facility] Iohexol (1 source) Iohexol Drug Allergy 4 [facility] Teriparatide (1 source) Teriparatide Drug Allergy 8 Other: See Comments [facility] Work Phone: (20 sources) Contrast media; Translations: [CONTRAST DYE] Propensity to adverse reactions to drug (disorder) 4 Hives, Itching (finding) [facility] Other [facility] (20 sources) iohexol; Translations: [IOHEXOL] Drug Allergy 4 [facility] Repository (10 sources) CT: IODINATED CONTRAST- ORAL AND IV DYE; Translations: [CT: IODINATED CONTRAST- ORAL AND IV DYE] Propensity to adverse reactions to drug 4 Hives [facility] (20 sources) Teriparatide; Translations: [TERIPARATIDE] Drug Allergy 8 Other: See Comments [facility] Work Phone: (11 sources) Iodine Drug Allergy 2 [facility] (12 sources) Gadolinium-MRI Contrast Medium; Translations: [Gadolinium-MRI Contrast Medium] Allergy to substance 2 [facility] (20 sources) Iodinated Contrast Media; Translations: [Iodinated Contrast Media] Allergy to substance 2 [facility] Work Phone: (20 sources) Gadolinium-Conta ining Contrast Media; Translations: [GADOLINIUM-CONT AINING CONTRAST MEDIA] Drug Allergy 2 [facility] Work Phone: (20 sources) Fish; Translations: [FISH CONTAINING PRODUCTS] Propensity to adverse reactions to drug 2 [facility] Work Phone: (1 source) Ct: Iodinated Contrast- Oral And Iv Dye Propensity to adverse reactions to drug 4 [facility] (20 sources) Gadolinium-Conta ining Contrast Media Drug Allergy 2 [facility] Work Phone: (1 source) Iodine Drug Allergy 4 [facility] Repository (1 source) Teriparatide Drug Allergy 4 [facility] Repository Medications Current Medications Medication Drug Class(es) Dates Sig (Normalized) Sig (Original) acetaminophen 325 mg / oxyCODONE hydrochloride 5 mg oral tablet (18 sources) Opioid Agonist Start: 08-22-2018 End: 08-15-2022 take 1 tablet by mouth every six hours Oxycodone-Acetami nophen (Percocet) 5-325 mg tablet Active 1 TABLET PO EVERY 6 HOURS 10 May 15, 2022 Start: 08-22-2018 End: 08-25-2018 take 1 tablet by mouth every six hours as needed Oxycodone-Acetaminophen Discontinued 1 TABLET PO EVERY 6 HOURS NEEDED 12 August 22, 2018 1:00am August 25, 2018 1:12am acyclovir 400 mg oral tablet (20 sources) Herpesvirus Nucleoside Analog DNA Polymerase Inhibitor, Herpes Simplex Virus Nucleoside Analog DNA Polymerase Inhibitor, Herpes Zoster Virus Nucleoside Analog DNA Polymerase Inhibitor Start: 05-08-2022 End: 05-15-2022 take 2 tablets by mouth five times daily acyclovir (ZOVIRAX) 400 mg tablet Take 2 tablets by mouth five times daily for 7 days. 70 tablet 0 05/08/2022 05/15/2022 Active Start: 07-27-2016 End: 03-15-2023 acyclovir (ZOVIRAX) 400 mg t ablet Indications: Acute myeloid leukemia in remission (HCC) , H/O allogeneic bone marrow transplant (HCC) TAKE 1 TABLET TWICE A DAY 180 tablet 3 05/28/2020 07/07/2021 Discontinued Comment on above: Take 1 tablet by rodolfo th twice daily. Take 2 tablets by mo [facility] five times daily for 7 days. amoxicillin 875 mg / clavulanate 125 mg oral tablet (11 sources) Penicillin-class Antibacterial Start: End: take 1 tablet by mouth twice daily amoxicillin-clavul anate potassium (AUGMENTIN) 875-125 mg per tablet Take 1 tablet by mouth two times a day for 10 days. 20 tablet 07/21/2024 07/31/2024 Active Start: 06-07-2023 End: 06-17-2023 take 1 tablet by mouth twice daily amoxicillin-clavulanic acid (AUGMENTIN) 875-125 mg per tablet Take 1 tablet by mouth twice daily for 10 days. 20 tablet 0 06/07/2023 06/17/2023 Active Start: 06-18-2022 End: 06-28-2022 take 1 tablet by mouth twice daily amoxicillin-clavulanic acid (AUGMENTIN) 875-125 mg per tablet Take 1 tablet by mouth twice daily for 10 days. 20 tablet 0 06/18/2022 06/28/2022 Active Start: 05-10-2021 End: 05-20-2021 take 1 tablet by mouth twice daily amoxicillin-clavulanic acid (AUGMENTIN) 875-125 mg per tablet Indications: Lower resp. tract infection Take 1 tablet by mouth twice daily for 10 days. 20 tablet 05/10/2021 05/20/2021 Comment on above: Take 1 tablet by rodolfo twice daily for 10 days. apixaban 5 mg oral tablet (20 sources) Factor Xa Inhibitor Start: 08-23-2022 End: 03-07-2025 take 1 tablet by mouth twice daily apixaban (ELIQUIS) 5 mg tab(s) Take 1 tablet by mouth two times a day. 180 tablet 3 02/26/2025 Active Start: 08-12-2022 Apixaban (Eliq uis Dvt-Pe Treat 30d Start) 5 mg (74 tabs) tablets,dose pack Active 10 MG PO TWICE A DAY August 12, 2022 12:00am Start: 05-20-2022 take 2 tablets by mo [facility] twice daily, then take 1 tablet by mouth twice daily ELIQUIS DVT-PE TREAT 30D START 5 mg (74 tabs) take 2 tablets by mouth twice a day for 7 days then 1 take tablet twice a day THEREAFTER 0 05/20/2022 Active Start: 05-20-2022 End: 06-19-2022 Eliquis Starter Pack for Jesse atment of DVT and PE 5 mg oral tablet [10mg BID x 7days-then 5mg BID], Oral, BID, # 74 tab(s), 0 Refill(s), DVT Treatment Dosing, [facility]acy: [facility] #[id number], 150, cm, 05/18/22 17:57:00 EDT, Height, 73.5 Start Date: 05/20/22 Stop Date: 06/19/22 Status: Ordered Start: 07-27-2016 End: 08-18-2022 take 5 mg by mouth twice daily 5 mg, Oral, 2 times olga ly, First dose on 08/15/22 at 2300 Indication: 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 Take 1 tablet by rodolfo two times a day. azithromycin 500 mg oral tablet (4 sources) Macrolide Antimicrobial Start: 08-18-20 End: 08-20-20 take 1 tablet by mouth at bedtime azithromycin (ZITHROMAX) 500 MG tablet Take 1 (one) tablet (500 mg total) by mouth at bedtime for 2 days . 2 tablet 0 08/18/2022 08/20/2022 Active Start: 08-15-2022 End: 08-18-2022 take 500 mg by mouth at bedtime 500 mg, Oral, At bedtime, First dose on 08/15/22 at 2215, For 5 doses Indication: Other (specify) Indication: bronchiectasis exacerbation Start: 05-10-2021 End: 05-15-2021 azithromycin (ZITHROMAX Z-PA K) 250 mg tablet Indications: Lower resp. tract infection Take 2 tablets day one, then, 1 tablet daily until gone. 6 tablet 05/10/2021 05/15/2021 b complex vitamins capsule (2 sources) take 1 capsule by mo ut once daily b complex vitamins capsule Take 1 (one) capsule by mouth daily . 0 Active take 1 capsule by mouth once olga ly b complex vitamins capsule Take 1 (one) capsule by mouth daily . 0 benoxinate hydrochloride 4 mg/ml / fluorescein sodium 3 mg/ml ophthalmic solution (2 sources) Diagnostic Dye Start: 02-28-2024 End: 02-29-2024 fluorescein-benoxinate 0.3-0.4 % 1 Drop (FLURESS) benzonatate 100 mg oral capsule (3 sources) Non-narcotic Antitussive Start: 08-17-2022 End: 08-25-2022 take 1 capsule by mouth three times daily benzonatate (TESSALON) 100 MG capsule Take 1 (one) capsule (100 mg total) by mouth 3 (three) times a day for 7 days . 20 capsule 0 08/18/2022 08/25/2022 Active betamethasone 0.5 mg/ml / clotrimazole 10 mg/ml topical cream (11 sources) Azole Antifungal, Corticosteroid Start: 05-19-2022 betamethasone-clotrimazol e 0.05%-1% topical cream Apply 1 bridger, Vaginal, BID, PRN vaginal discomfort, Cream, 73.5 Start Date: 05/19/22 Status: Ordered Start: 04-24-2022 End: 05-24-2022 clotrimazole-betamethasone ( LOTRISONE) cream Apply 1 application to affected area twice daily. 30 g 0 04/24/2022 05/24/2022 Comment on above: Apply 1 application to affected area twice daily. calcium carbonate 1500 mg / cholecalciferol 0.01 mg oral tablet (20 sources) Vitamin D Start: take 1 tablet by mouth once daily calcium carbonate 600 mg-cholecalcifero l 400 units (CALCIUM WITH VITAMIN D) 600 mg-10 mcg (400 unit) tab Take 1 tablet by mouth once daily. 90 tablet 1 06/06/2024 Active Start: 05-30-2024 End: 06-06-2024 take 1 tablet by mouth once daily calcium carbonate 600 mg-cholecalciferol 200 units (CALCIUM 600 + D,3,) 600 mg-5 mcg (200 unit) tab Take 1 tablet by mouth once daily. 100 tablet 1 05/30/2024 06/01/2024 Discontinued Start: 11-07-2019 End: 06-04-2022 take 1 tablet by mouth twice daily calcium-cholecalciferol, D3, (OSCAL+D 250) 250-125 mg-unit per tablet Take 1 tablet by mouth twice daily. 11/07/2019 06/04/2022 Discontinued Comment on above: Take 1 tablet by [facility] twice daily. Centrum MultiGummies Women (1 source) Start: 2 Centrum MultiGummies Women 0 Refill(s) Start Date: 05/18/22 Status: Ordered cholecalciferol 0.05 mg oral capsule (20 sources) Vitamin D Start: 3 take 1 capsule by mouth once daily Cholecalciferol, Vitamin D3, 50 mcg (2,000 unit) cap Take 1 capsule by mouth once daily. 90 capsule 3 03/24/2023 Active Start: 08-23-2022 take 50 ug by mouth once daily Cholecalciferol (Vitamin D3) Active 50 MCG PO DAILY August 23, 2022 1:00am Start: 08-16-2022 End: 08-18-2022 take 2000 [IU] by mouth once daily 2,000 Units, Oral, Daily, First dose on 08/16/22 at 0900 Start: 05-06-2022 End: 03-22-2023 take 1 capsule by mouth once daily Cholecalciferol, Vitamin D3, 50 mcg (2,000 unit) cap Take 1 capsule by mouth once daily. 90 capsule 3 05/06/2022 03/22/2023 Discontinued take 2 tablets by [facility] once daily cholecalciferol, vitamin D3, 1,000 unit tablet Take 2 (two) tablets (2,000 Units total) by mouth daily . 0 Active Comment on above: Take 1 capsule by [facility] once daily. cholestyramine resin 4000 mg powder for oral suspension (20 sources) Bile Acid Sequestrant Start: 03-03-20 take 1 dose by mouth three times daily at mealtime cholestyramine (QUESTRAN) 4 gram packet Take 1 Packet by mouth three times daily with meals. 90 Packet 5 03/03/2023 Active Start: 02-19-2020 take 1 dose by mouth three times daily Cholestyramine (With Sugar) Active 4 GM PO THREE TIMES A DAY February 19, 2020 3:27pm administer w/meal; avoid other meds within 1hr before or 4-6hr after dose Comment on above: Take 1 Packet by rodolfo th three times daily with meals. clobetasol propionate 0.0005 mg/mg topical ointment (20 sources) Corticosteroid Start: 07-26-2024 clobetasol (TEMOVATE) 0.05 % ointment Apply 1 application to affected area once daily. 45 g 07/26/2024 Active Start: 04-23-2022 End: 04-24-2022 clobetasol (IMPOYZ) 0.025 % cream Apply to affected area twice daily. for 2 weeks. 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 45 g 5 09/03/2020 09/03/2021 Discontinued Clobetasol Propi yanique 0.05 % gel Apply to affected area as needed. Active Comment on above: Apply to affected ar ea twice daily. for 2 weeks. Apply to affected ar ea. cyanocobalamin/cobamamide (B12 SUBLINGUAL) (20 sources) cyanocobalamin/c obamamide (B12 SUBLINGUAL) Dissolve under the tongue once daily. Active cyanocobalamin/c obamamide (B12 SUBLINGUAL) Dissolve under the tongue once daily. 0 Active cyanocobalamin/c obamamide (B12 SUBLINGUAL) Dissolve under the tongue. 0 Active Comment on above: Dissolve under the t ongue. Dissolve under the t ongue once daily. doxycycline hyclate 100 mg oral capsule (5 sources) Tetracycline-class Drug Start: 06-19-2022 End: 06-24-2022 take 1 capsule by mouth twice daily doxycycline hyclate (VIBRAMYCIN) 100 mg capsule Take 1 capsule by mouth twice daily for 5 days. 10 capsule 0 06/19/2022 06/24/2022 Active Start: 06-18-2022 take 100 mg by mouth twice daily Doxycycline Monohydrate Active 100 MG PO TWICE A DAY June 17, 2022 11:00pm Comment on above: Take 1 capsule by [facility] twice daily for 5 days. Eligen B12 1000 mcg oral tablet (1 source) Start: 05-18-20 take 1 tablet by mouth once daily Eligen B12 1000 mcg oral tablet 1 tab(s), Oral, qDay, # 30 tab(s), 0 Refill(s) Start Date: 05/18/22 Status: Ordered erythromycin 0.005 mg/mg ophthalmic ointment (20 sources) Macrolide, Macrolide Antimicrobial Start: 03-01-20 End: 02-28-20 24 erythromycin (ROMYCIN) 5 mg/gram (0.5 %) ophthalmic ointment Use 1 application in both eyes two times a day. 10.5 g 3 02/28/2024 Active Start: 12-22-2022 erythromycin ( ROMYCIN) 5 mg/gram (0.5 %) ophthalmic ointment Use 1 application in both eyes twice daily. 3.5 g 3 12/22/2022 Active Comment on above: Use 1 application in both eyes twice daily. esomeprazole 40 mg delayed release oral capsule (20 sources) Proton Pump Inhibitor Start: 03-24-2023 End: 04-02-2025 esomeprazole (NEXIUM) 40 mg capsule TAKE 1 CAPSULE DAILY 90 capsule 3 04/02/2025 Active Start: 09-01-2018 End: 03-22-2023 esomeprazole (NEXIUM) 40 mg capsule TAKE 1 CAPSULE DAILY 90 capsule 3 08/05/2020 08/11/2021 Discontinued Comment on above: TAKE 1 CAPSULE DAILY Take 1 capsule by [facility] once daily. 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 85 g 2 07/26/2024 Active Start: 07-26-2017 Estradiol Acti ve 1 DOSE VAGINAL DAILY July 26, 2017 12:00am Comment on above: Use 0.5 g vaginally two times a week. fluorometholone 1 mg/ml ophthalmic suspension (20 sources) Corticosteroid Start: 021 End: 024 fluorometholone (FML LIQUID FILM) 0.1 % ophthalmic suspension Use 1 Drop in the left eye two times a day. 15 mL 3 02/28/2024 Active Comment on above: Use 1 Drop in both e yes twice daily. Use 1 Drop in the le ft eye twice daily. 12 hr guaiFENesin 1200 mg extended release oral tablet (20 sources) take 1 tablet by mouth once daily guaiFENesin (MUCINEX) 1,200 mg Ta12 Take 1 tablet by mouth once daily. Active herbal/nutritional product (1 source) Start: herbal/nutritional product 1,000 mg, Oral, qDay, Flaxseed Oil Start Date: 05/19/22 Status: Ordered ipratropium bromide 0.042 mg/actuat metered dose nasal spray (20 sources) Anticholinergic Start: End: 026 ipratropium bromide (ATROVENT) 42 mcg (0.06 %) nasal spray Indications: Rhinorrhea Use 2 Sprays in the nose two times a day as needed. 45 mL 3 09/21/2024 09/21/2025 Active Comment on above: Use 2 Sprays in the nose twice daily as needed. L.Acidoph, Paracasei,B. Lactis (11 sources) Start: 019 L.Acidoph, Paracasei,B. Lactis Active 1 EACH PO DAILY May 06, 2019 11:16pm Start: 05-06-2019 L.Acidoph, Par acasei,B. Lactis Active 1 EACH PO AT BEDTIME May 06, 2019 12:00am Start: 05-06-2019 L.Acidoph, Par acasei,B. Lactis Active 1 EACH PO AT BEDTIME May 05, 2019 11:00pm Start: 05-06-2019 L.Acidoph, Par acasei,B. Lactis Active 1 EACH PO DAILY May 05, 2019 11:00pm Start: 05-06-2019 L.Acidoph, Par acasei,B. Lactis Active 1 EACH PO DAILY May 06, 2019 12:00am Lactobacillus acidophilus (20 sources) take 1 capsule by mo uth once daily Lactobacillus acidophilus (PROBIOTIC ORAL) Take 1 capsule by mouth once daily. Active take 1 capsule by mouth once olga ly Lactobacillus acidophilus (PROBIOTIC ORAL) Take 1 capsule by mouth once daily. 0 Active Comment on above: Take 1 capsule by mo uth once daily. levothyroxine sodium 0.112 mg oral tablet (20 sources) l-Thyroxine Start: 12-22-19 End: 12-12-19 take 1 tablet by mouth once daily for thyroid dysfunction levothyroxine (SYNTHROID) 112 mcg tablet Indications: Acquired hypothyroidism Take 1 tablet by mouth once daily. Take on empty stomach. For Thyroid 90 tablet 3 12/11/2024 Active Start: 01-19-2023 End: 12-15-2023 take 1 tablet by mouth once daily for thyroid dysfunction levothyroxine (SYNTHROID) 112 mcg tablet Indications: Acquired hypothyroidism Take 1 tablet by mouth once daily. Take on empty stomach. For Thyroid 90 tablet 3 01/19/2023 12/15/2023 Discontinued Start: 08-23-2022 take 112 ug by mouth once [place] Levothyroxine Active 112 MCG PO DAILY August 23, 2022 3:05pm Start: 05-18-2022 Synthroid 112 mcg (0.112 mg) oral tablet Dose : 112 mcg = 1 tab(s), Oral, qDay, # 60 tab(s), 0 Refill(s) Start Date: 05/18/22 Status: Ordered Start: 03-06-2022 End: 08-18-2022 take 1 tablet by mouth once daily for thyroid dysfunction levothyroxine (SYNTHROID) 112 mcg tablet Indications: Acquired hypothyroidism Take 1 tablet by mouth once daily. Take on empty stomach. For Thyroid 90 tablet 3 03/06/2022 Active Start: 04-11-2020 End: 08-23-2022 take 1 tablet by mouth once daily for thyroid dysfunction levothyroxine (SYNTHROID) 100 mcg tablet Indications: Acquired hypothyroidism Take 1 tablet by mouth once daily. Take on empty stomach. For Thyroid 90 tablet 3 02/12/2021 03/06/2022 Discontinued Start: 02-19-2020 End: 04-11-2020 take 125 ug by mouth once daily Levothyroxine Disconti nued 125 MCG PO DAILY February 19, 2020 12:00am April 11, 2020 4:22pm Start: 05-06-2019 End: 02-19-2020 Levothyroxine Discontinued 1 25 MCG PO MOTUWETHFRSA May 06, 2019 12:00am February 19, 2020 3:14pm not mariana Start: 08-02-2018 End: 08-15-2022 levothyroxine (SYNTHROID, LEVOTHROID) 137 MCG tablet Take 112 mcg by mouth once daily . 0 08/02/2018 08/15/2022 Discontinued Start: 08-02-2018 levothyroxine (SYNTHROID, LEVOTHROID) 137 MCG tablet Take 137 mcg by mouth . 0 08/02/2018 Active Comment on above: Take 1 tablet by rodolfo th once daily. Take on empty stomach. For Thyroid lidocaine 0.05 mg/mg topical ointment (20 sources) Antiarrhythmic, Amide Local Anesthetic Start: 04-21-2022 lidocaine (XYLOCAINE) 5 % ointment Apply to affected area as needed (to urethral area). use a small amount to affected area qid prn pain 30 g 1 04/21/2022 Active Comment on above: Apply to affected ar ea as needed (to urethral area). use a small amount to affected area qid prn pain lifitegrast 50 mg/ml ophthalmic solution (20 sources) Lymphocyte Function-Associated Antigen-1 Antagonist Start: 02-11-2023 End: 08-23-2024 take 1 drop(s) into the eye(s) twice daily lifitegrast (XIIDRA) 5 % ophthalmic drops Use 1 Drop in both eyes two times a day. 180 Each 3 08/24/2024 Active Start: 02-11-2023 take 1 drop(s) into the eye(s) twice daily lifitegrast (XIIDRA) 5 % ophthalmic drops Use 1 Drop in both eyes twice daily. 180 Each 3 02/11/2023 Active Start: 05-19-2022 Xiidra 5% opht halmic solution Dose = 1 drop(s), Eyes, both, BID Start Date: 05/19/22 Status: Ordered Start: 07-29-2021 take 1 drop(s) into the eye(s) twice daily lifitegrast (XIIDRA) 5 % ophthalmic drops Use 1 Drop in both eyes twice daily. 180 Each 3 07/29/2021 Active Start: 03-20-2021 End: 04-23-2022 take 1 drop(s) into the eye(s) twice daily lifitegrast (XIIDRA) 5 % Use 1 Drop in eyes twice daily. 60 Each 2 03/20/2021 04/23/2022 Discontinued Comment on above: Use 1 Drop in eyes t wice daily. Use 1 Drop in both e yes twice daily. linseed oil 1000 mg oral capsule (20 sources) Start: 03-25-2023 take 1000 mg by mouth once daily Flaxseed Oil Active 1000 MG PO DAILY March 25, 2023 12:00am Comment on above: Take 1,000 mg by rodolfo th once daily. 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 09/29/2023 Active Comment on above: Take 1 tablet by rodolfo th twice daily. Take 1 tablet by rodolfo th two times a day. magnesium oxide 400 mg oral tablet (20 sources) Start: 09-08-2015 End: 06-04-2022 take 200 mg by mouth twice daily Magnesium Oxide Active 200 MG PO TWICE A DAY September 08, 2015 1:00am Start: 09-08-2015 End: 06-04-2022 take 800 mg by mouth twice daily Magnesium Oxide Activ e 800 MG PO TWICE A DAY September 08, 2015 12:00am Comment on above: Take two tablets by mouth twice daily. meclizine hydrochloride 25 mg oral tablet (8 sources) Antiemetic Start: 0 take 25 mg by mouth three times daily Meclizine Active 25 MG PO THREE TIMES A DAY February 18, 2020 11:00pm metoprolol tartrate 25 mg oral tablet (20 sources) beta-Adrenergic Neda Start: 5 End: 6 take 1 tablet by mouth twice daily metoprolol tartrate, short acting, (LOPRESSOR) 25 mg tablet Take 1 tablet by mouth two times a day. 180 tablet 3 03/02/2025 03/02/2026 Active Start: 01-08-2022 End: 12-19-2024 take 1 tablet by mouth twice daily metoprolol tartrate, short acting, (LOPRESSOR) 25 mg tablet Take 1 tablet by mouth two times a day. 180 tablet 3 12/20/2023 Active Start: 05-11-2018 End: 08-18-2022 take 1 tablet by mouth once daily metoprolol tartrate, short acting, (LOPRESSOR) 25 mg tablet Take 1 tablet by mouth once daily. 90 tablet 3 01/13/2021 12/23/2021 Discontinued Comment on above: Take 1 tablet by rodolfo th once daily. Take 1 tablet by rodolfo th twice daily. Take 1 tablet by rodolfo th two times a day. mometasone furoate 0.05 mg/actuat metered dose nasal spray (20 sources) Corticosteroid Start: End: 5 take 2 spray(s) by mouth once daily mometasone (NASONEX) 50 mcg/actuation nasal spray Indications: Chronic rhinitis Use 2 Sprays in the nose once daily. Rinse mouth after use. 17 g 3 09/21/2024 Active Start: 03-21-2021 End: 07-03-2021 take 2 spray(s) by mouth once daily mometasone (NASONEX) 50 mcg/actuation nasal spray Indications: Chronic rhinitis Use 2 Sprays in the nose once daily. Rinse mouth after use. 3 Each 3 03/21/2021 07/03/2021 Discontinued Comment on above: Use 2 Sprays in the nose once daily. Rinse mouth after use. Myvhqavk-Grk-Yb-Lycopen -Lutein (8 sources) Start: 02-10-2020 Qudvpdps-Xkq-Rm-Lycope n-Lutein Active 1 EACH PO DAILY February 10, 2020 8:55pm Start: 02-10-2020 Euliwetv-Vgv-A i-Ggfywfp-Dzgkhc Active 1 EACH PO DAILY February 09, 2020 11:00pm Start: 02-10-2020 Pbcslxui-Wyj-Q x-Hsjdhgp-Tedhvy Active 1 EACH PO DAILY February 10, 2020 12:00am MULTIVITAMIN ORAL (20 sources) take 1 tablet by rodolfo th once daily MULTIVITAMIN ORAL Take 1 tablet by mouth once daily. Active take 1 tablet by mouth once [place] MULTIVITAMIN ORAL Take 1 tablet by mouth once daily. 0 Active Comment on above: Take 1 tablet by rodolfo th once daily. mupirocin 0.02 mg/mg topical ointment (20 sources) RNA Synthetase Inhibitor Antibacterial Start: 02-10-2024 End: 02-20-2024 mupirocin (BACTROBAN) 2 % ointment Apply 1 application to affected area three times a day for 10 days. 15 g 0 02/10/2024 02/20/2024 Active Start: 10-17-2018 End: 04-21-2022 mupirocin (BACTROBAN) 2 % oi ntment Indications: Acute myeloid leukemia in remission (HCC) , Pyogenic sterile arthritis, pyoderma gangrenosum, and acne syndrome (HCC) , Chronic skin ulcer with fat layer exposed (HCC) , Immunosuppression (HCC) Apply to ulcer and surrounding skin once daily with clobetasol 30 g 2 10/17/2018 04/21/2022 Discontinued Comment on above: Apply to ulcer and s urrounding skin once daily with clobetasol Nebulizer and Compressor For Neb (20 sources) Start: 07-03-20 21 Nebulizer and Compressor For Neb Indications: Bronchiectasis without acute exacerbation (HCC) 1 Each twice daily. 1 Each 1 07/03/2021 Active Comment on above: 1 Each twice daily. nitrofurantoin, macrocrystals 25 mg / nitrofurantoin, monohydrate 75 mg oral capsule (3 sources) Nitrofuran Antibacterial Start: 05-13-20 take 100 mg by mouth every twelve hours Nitrofurantoin Monohyd/M-Cryst Active 100 MG PO EVERY 12 HOURS May 12, 2022 11:00pm nystatin [id number] unt/ml oral suspension (4 sources) Polyene Antifungal Start: 01-07-20 End: 02-06-20 nystatin (MYCOSTATIN) 100,000 unit/mL suspension Take 5 mL by mouth four times daily. 1tsp swish in mouth for several minutes, then swallow (or expectorate) 4 times daily until gone. 600 mL 0 01/06/2023 02/05/2023 Active Start: 04-16-2018 End: 08-15-2022 nystatin (MYCOSTATIN) powder Apply 1 application topically . 0 04/16/2018 08/15/2022 Discontinued Comment on above: Take 5 mL by mouth f our times daily. 1tsp swish in mouth for several minutes, then swallow (or expectorate) 4 times daily until gone. perflutren lipid microspheres 1.3 mL in NaCl (PF) 0.9% 10 mL injection (DEFINITY) (20 sources) Start: 06-04-2022 End: 09-03-2023 perflutren lipid microspheres 1.3 mL in NaCl (PF) 0.9% 10 mL injection (DEFINITY) Start: 07-22-2020 End: 10-21-2021 perflutren lipid microsphere s 1.3 mL in NaCl (PF) 0.9% 10 mL injection (DEFINITY) Start: 07-22-2020 End: 10-21-2021 perflutren lipid microsphere s 1.3 mL in NaCl (PF) 0.9% 10 mL injection (DEFINITY) phenylephrine hydrochloride 25 mg/ml ophthalmic solution (3 sources) alpha-1 Adrenergic Agonist Start: 02-28-2024 End: 02-29-2024 PHENYLephrine 2.5 % 1 Drop (AK-DILATE, HEIDI-SYNEPHRINE) predniSONE 10 mg oral tablet (15 sources) Start: 08-24-2022 take 4 tablets by mouth once daily, then take 3 tablets by mouth once daily, then take 2 tablets by mouth once daily, then take 1 tablet by mouth once daily, then take 0.5 tablet by mouth once daily Prednisone Active 10 MG PO DAILY August 24, 2022 1:00am 4 tablets daily for 5 days, 3 tablets daily for 5 days, then 2 tablets daily for 5 days, 1 tablet daily for 5 days, then half tablet daily for 4 days Start: 08-19-2022 End: 08-20-2022 take 2 tablets by mouth once daily at breakfast predniSONE (DELTASONE) 20 MG tablet Take 2 (two) tablets (40 mg total) by mouth daily with breakfast for 1 day Start: 08/19/22. 2 tablet 0 08/19/2022 08/20/2022 Active Start: 08-16-2022 End: 08-18-2022 take 40 mg by mouth once daily at breakfast 40 mg, Oral, Daily with breakfast, First dose on 08/16/22 at 0800, For 4 doses Start: 06-18-2022 take 60 mg by mouth once daily Prednisone Active 60 MG PO DAILY June 17, 2022 11:00pm Start: 05-06-2022 End: 05-18-2022 predniSONE (DELTASONE) 10 mg tablet Take 4 tabs daily x 3 days, then 3 tabs x 3 days, 2 tabs x 3 days, then 1 tab x3 days with food. 30 tablet 0 05/06/2022 05/06/2022 Discontinued Start: 05-12-2018 End: 08-15-2022 predniSONE (DELTASONE) 50 MG tablet Take 1 tablet 13 hours, 7 hours and [address] scan. 0 05/12/2018 08/15/2022 Discontinued Comment on above: Take 4 tabs daily x 3 days, then 3 tabs x 3 days, 2 tabs x 3 days, then 1 tab x3 days with food. Probiotic Formula (Bacillus Coagulans) oral capsule (1 source) Start: 2 take 1 capsule by mouth once daily Probiotic Formula (Bacillus Coagulans) oral capsule Dose = 1 cap(s), Oral, qDay, # 30 cap(s), 0 Refill(s) Start Date: 05/18/22 Status: Ordered proparacaine hydrochloride 5 mg/ml ophthalmic solution (6 sources) Local Anesthetic Start: 5 End: 5 proparacaine 0.5 % 1 Drop (ALCAINE) Start: 12-18-2024 End: 12-18-2024 1 Drop, BOTH EYES, DIRECT ED, Starting on Wed12/18/24 at 1130, Until Wed12/18/24 at 2329, Administer for pneumo tonometry, tonopen tonometry, or pachymetry. In the event of a proparacaine shortage, administer tetracaine 0.5% ophthalmic drops 1 drop in the left eye as directed for pneumo tonometry, tonopen tonometry, or pachymetry Start: 02-28-2024 End: 02-29-2024 proparacaine 0.5 % 1 Drop (A LCAINE) Start: 03-30-2022 End: 03-30-2022 proparacaine 0.5 % 1 Drop (A LCAINE) sodium bicarbonate 650 mg oral tablet (5 sources) Start: 01-15-2022 take 650 mg by mouth twice daily Sodium Bicarbonate Active 650 MG PO TWICE A DAY January 14, 2022 11:00pm sulfamethoxazole 800 mg / trimethoprim 160 mg oral tablet (3 sources) Dihydrofolate Reductase Inhibitor Antibacterial, Sulfonamide Antimicrobial Start: 05-15-2022 take 1 tablet by mouth twice daily Sulfamethoxazole -Trimethoprim (Bactrim Ds) 800-160 mg tablet Active 1 TABLET PO TWICE A DAY May 14, 2022 11:00pm Super B Complex oral tablet (1 source) Start: 05-18-2022 take 1 tablet by mouth once daily Super B Complex oral tablet Dose = 1 tab(s), Oral, Daily, # 30 tab(s), 0 Refill(s) Start Date: 05/18/22 Status: Ordered tropicamide 10 mg/ml ophthalmic solution (4 sources) Anticholinergic Start: 02-28-2024 End: 02-29-2024 tropicamide 1 % 1 Drop (MYDRIACYL) Start: 03-30-2022 End: 03-30-2022 tropicamide 1 % 1 Drop (MYDR IACYL) vitamin b12 1 mg sublingual tablet (2 sources) Vitamin B12 cyanocobalamin, vitamin B-12, 1,[address] under the tongue . 0 Active Vitamin D3 1250 mcg (50,000 intl units) oral capsule (1 source) Start: 05-19-2022 Vitamin D3 1250 mcg (50,000 intl units) oral capsule Dose : 1,250 mcg = 1 cap(s), Oral, Wednesday Start Date: 05/19/22 Status: Ordered Completed/Discontinued Medications Medication Drug Class(es) Dates Sig (Normalized) Sig (Original) acetaminophen 325 mg oral tablet (1 source) Start: 08-15-2022 End: 08-18-2022 take 1 tablet by mouth every four hours as needed for pain and headache 650 mg, Oral, Every 4 hours PRN, mild pain, fever 100.4 F or greater, headaches, Starting on 08/15/22 at 2201 albuterol 0.83 mg/ml inhalation solution (20 sources) beta2-Adrenergic Agonist Start: 08-15-2022 End: 08-18-2022 take 2.5 mg by inhalation every four hours as needed for wheezing 2.5 mg, Nebulization, Every 4 hours PRN (RT), wheezing, Starting on 08/15/22 at 2201 Start: 06-18-2022 take 1 puff(s) by in halation every four hours as needed Albuterol Sulfate (Ventolin Hfa) 90 mcg/actuation HFA aerosol inhaler Active 2 PUFF INHALATION EVERY 4 HOURS NEEDED June 17, 2022 11:00pm Start: 12-02-2021 End: 07-26-2022 take 2.5 mg by inhalation every eight hours as needed albuterol (PROVENTIL) 2.5 mg /3 mL (0.083 %) nebulizer solution Use 3 mL via nebulizer three times daily as needed for wheezing/shortness of breath. Inhale over 5-15 minutes 900 mL 3 07/27/2022 Active Start: 05-10-2021 End: 07-04-2021 take 2 puff(s) by inhalation every four hours as needed for wheezing albuterol HFA (PROAIR HFA) 90 mcg/actuation inhaler Indications: Cough Inhale 2 Puffs as instructed every 4 hours as needed for wheezing/shortness of breath. 18 g 11 07/03/2021 Active Comment on above: Inhale 2 Puffs as in structed every 4 hours as needed for wheezing/shortness of breath. Use 3 mL via nebuliz er three times daily as needed for wheezing/shortness of breath. Inhale over 5-15 minutes albuterol 0.833 mg/ml / ipratropium bromide 0.167 mg/ml inhalation solution (1 source) Anticholinergic, beta2-Adrenergic Agonist Start: 2021 End: 2021 take 3 mL by inhalation every six hours 3 mL, Inhalation, Every 6 hours scheduled (RT), First dose on 08/16/22 at 0200 amoxicillin 500 mg oral capsule (20 sources) Penicillin-class Antibacterial Start: 2022 End: 2023 take 4 capsules by mouth every hour amoxicillin (AMOXIL) 500 mg capsule take 4 capsules by mouth 1 hour prior to dental appointment 01/11/2023 06/08/2024 Discontinued Comment on above: take 4 capsules by m outh 1 hour prior to dental appointment calcium chloride 0.0014 meq/ml / potassium chloride 0.004 meq/ml / sodium chloride 0.103 meq/ml / sodium lactate 0.028 meq/ml injectable solution (1 source) Start: 2024 End: 2024 take 30 mL intravenously every hour 30 mL/hr, INTRAVENOUS, CONTINUOUS, Starting on Wed04/11/25 at 0730, Until Wed04/11/25 at 0850, Preprocedure cefdinir 300 mg oral capsule (4 sources) Cephalosporin Antibacterial Start: 2024 End: 2024 take 1 capsule by mouth twice daily cefdinir (OMNICEF) 300 mg capsule Take 300 mg by mouth two times a day. 01/19/2025 03/07/2025 Discontinued chlorhexidine gluconate 40 mg/ml medicated liquid soap (3 sources) Start: 2017 End: 2021 chlorhexidine (HIBICLENS) 4 % external liquid Wash ulceration with dilute (0.4%) chlorhexadine per written instructions provided. 0 06/07/2018 08/15/2022 Discontinued ciprofloxacin 500 mg oral tablet (5 sources) Quinolone Antimicrobial Start: 2021 End: 2021 take 500 mg by mouth every twelve hours Ciprofloxacin Hcl Discontinued 500 MG PO Q12H 14 7 May 26, 2022 12:00am June 02, 2022 12:04am clotrimazole 10 mg oral lozenge (20 sources) Azole Antifungal Start: 2021 clotrimazole (MYCELEX) 10 mg ada Indications: Acute myeloid leukemia in remission (HCC) , H/O allogeneic bone marrow transplant (HCC) , Thrush (oral) Use 1 Ada as instructed four times daily. 140 Ada 1 06/11/2022 Active Comment on above: Use 1 Ada as inst ructed four times daily. COMPOUNDED PRESCRIPTION (20 sources) Start: 2016 End: 2021 COMPOUNDED PRESCRIPTION Needs supplies as listed below with refills to last a year [place] skin barrier [id number] Curitity gauze pad [id number] [place] cohesive seals [id number] Alcohol preps [id number] Skin prep wipes [id number] Adhesive remover [id number] Yolanda pouch [id number] Sure seals [id number] Yolanda Vera plus skin barrier [id number] [place] Karaya powder [id number] Adhesive remover wipes [id number] 1 Each 11 09/03/2017 06/04/2022 Discontinued Start: 09-03-2017 COMPOUNDED PRE SCRIPTION Needs supplies as listed below with refills to last a year Yolanda skin barrier 477457 Curitity gauze pad 158334 [place] cohesive seals [id number] Alcohol preps [id number] Skin prep wipes [id number] Adhesive remover [id number] [place] pouch [id number] Sure seals [id number] [place] Vera plus skin barrier [id number] Yolanda Karaya powder [id number] Adhesive remover wipes [id number] 1 Each 11 09/03/2017 Active Comment on above: Needs supplies as li sted below with refills to last a year [place] skin barrier [id number] Curitity gauze pad 208235 [place] cohesive seals [id number] Alcohol preps [id number] Skin prep wipes [id number] Adhesive remover [id number] Yolanda pouch [id number] Sure seals [id number] [place] Vera plus skin barrier [id number] [place] Karaya powder 822909 Adhesive remover wipes [id number] dexamethasone 0.1 mg/ml oral solution (2 sources) Corticosteroid Start: 03-27-20 End: 12-02-19 22 take 10 mL by mouth four times daily dexamethasone (DECADRON) 0.5 mg/5 mL solution Take 10 mL by mouth four times daily. (swish for 2 minutes and spit out) Can mix with Tacrolimus rinse. 3600 mL 3 03/27/2020 12/01/2021 Discontinued dexamethasone 1 mg/ml / tobramycin 3 mg/ml ophthalmic suspension (20 sources) Aminoglycoside Antibacterial, Corticosteroid Start: 04-15-20 End: 12-31-19 take 1 drop(s) into the eye(s) twice daily tobramycin-dexAMETHas one (TOBRADEX) ophthalmic suspension Use 1 Drop in both eyes twice daily. 1 Bottle 1 04/15/2021 12/30/2022 Discontinued Start: 04-15-2021 End: 12-30-2022 take 1 drop(s) into the eye(s) twice daily tobramycin-dexAMETHasone (TOBRADEX) ophthalmic suspension Use 1 Drop in both eyes twice daily. 1 Bottle 1 04/15/2021 12/30/2022 Discontinued Comment on above: Use 1 Drop in both e yes twice daily. dextromethorphan hydrobromide 2 mg/ml / guaiFENesin 20 mg/ml oral solution (1 source) Uncompetitive U-sbhcsy-S-aspartate Receptor Antagonist, Sigma-1 Agonist Start: End: take 10 mL by mouth every four hours as needed for cough dextromethorphan-guai FENesin (ROBITUSSIN-DM) 10-100 mg/5 mL liquid 10 mL ergocalciferol 1.25 mg oral capsule (20 sources) Provitamin D2 Compound Start: End: take 1 capsule by mouth every week ergocalciferol 50,000 unit capsule (VITAMIN D2, DRISDOL) Indications: Other osteoporosis without current pathological fracture take 1 capsule by mouth every week 24 capsule 1 01/22/2021 12/23/2021 Discontinued Start: 07-27-2016 Ergocalciferol (Vitamin D2) Active 14525 UNIT PO FR July 27, 2016 12:00am Comment on above: take 1 capsule by [facility] every week 1 ml fentaNYL 0.05 mg/ml injection (1 source) Opioid Agonist Start: 5 End: 5 25-100 mcg, INTRAVENOUS, DIRECTED, Starting on Wed04/11/25 at 0830, Until Wed04/11/25 at 1229, DOSING DIRECTED BY PHYSICIAN FOR PROCEDURAL SEDATION ONLY, Intraprocedure fluconazole 150 mg oral tablet (1 source) Azole Antifungal Start: 2 End: 2 take 1 tablet by mouth once fluconazole (DIFLUCAN) 150 mg tablet Indications: Vaginal pruritus Take 1 tablet by mouth one time only for 1 dose. 1 tablet 0 09/10/2022 09/10/2022 Comment on above: Take 1 tablet by rodolfo one time only for 1 dose. folic acid 1 mg oral tablet (20 sources) Start: 9 End: 2 folic acid 1 mg tablet Folic Acid Folic Acid Active 400 MCG DAILY May 06, 2019 11:16pm 05-06-2019 [facility] ([id number]) 05/06/2019 06/04/2022 Discontinued Start: 05-06-2019 End: 02-19-2020 take 400 ug by mouth once daily Folic Acid Discontinued 400 MCG PO DAILY May 06, 2019 12:00am February 19, 2020 3:29pm Comment on above: Folic Acid Folic Aci d Active 400 MCG DAILY May 06, 2019 11:16pm 05-06-2019 [facility] ([id number]) heparin (3 sources) Unfractionated Heparin, Anti-coagulant Start: 08-28-2020 End: 08-28-2021 heparin 100 unit/mL injection NURSING USE ONLY: USE FOR IMPLANTED VASCULAR ACCESS DEVICE (IVAD) FLUSH. AMBULATORY/OUTPATIENT: PLEASE REORDER UPON HOSPITAL DISCHARGE May access implanted vascular access device (IVAD) as needed for treatment. Before de-accessing port, flush with 10-20ml normal saline and follow with 5 mL heparin (100 units/mL) (if no heparin allergy). De-access port on treatment completion. 5 mL 11 08/28/2020 08/28/2021 Start: 09-17-2018 End: 09-17-2018 heparin, porcine (PF) inject ion 300 Units hydrocortisone acetate 10 mg/ml / pramoxine hydrochloride 10 mg/ml rectal foam (20 sources) Corticosteroid Start: 02-22-2020 End: 04-21-2022 pramoxine-hydrocortisone (PROCTOFOAM HC) rectal foam 1 Applicator by RECTAL route as needed. 57 g 2 02/22/2020 04/21/2022 Discontinued Comment on above: 1 Applicator by RECT AL route as needed. insulin lispro 100 unt/ml injectable solution (3 sources) Insulin Analog Start: 08-16-2022 End: 08-18-2022 insulin lispro (AdmeLOG,HumaLOG) injection 0-15 Units levoFLOXacin 750 mg oral tablet (6 sources) Quinolone Antimicrobial Start: 03-02-2022 End: 03-12-2022 levoFLOXacin (LEVAQUIN) 750 mg tablet Take 1 tablet by mouth once daily for 10 days. FOR 7 DAYS. 10 tablet 0 03/02/2022 03/12/2022 Comment on above: Take 1 tablet by rodolfo once daily for 10 days. FOR 7 DAYS. 5 ml midazolam 1 mg/ml injection (1 source) Benzodiazepine Start: 04-11-2025 End: 04-11-2025 1-5 mg, INTRAVENOUS, DIRECTED, Starting on Wed04/11/25 at 0830, Until Wed04/11/25 at 1229, DOSING DIRECTED BY PHYSICIAN FOR PROCEDURAL SEDATION ONLY, Intraprocedure ondansetron 8 mg oral tablet (4 sources) Serotonin-3 Receptor Antagonist Start: 09-17-2018 End: 09-17-2018 ondansetron (ZOFRAN) injection 4 mg Start: 07-27-2016 End: 12-01-2021 take 1 tablet by mouth every eight hours as needed ondansetron (ZOFRAN) 8 mg tablet Indications: Acute myeloid leukemia not having achieved remission (HCC) Take 1 tablet by mouth every 8 hours as needed. 20 tablet 2 09/19/2018 12/01/2021 Discontinued pantoprazole 40 mg delayed release oral tablet (1 source) Proton Pump Inhibitor Start: 08-16-2022 End: 08-18-2022 take 40 mg by mouth once daily 40 mg, Oral, Daily, First dose on 08/16/22 at 0900 DO NOT CRUSH OR CHEW. sirolimus 0.5 mg oral tablet (11 sources) Kinase Inhibitor, mTOR Inhibitor Immunosuppressant Start: 07-26-2017 End: 01-09-2022 Sirolimus Discontinued 0.5 MG PO MOWEFR July 26, 2017 1:00am January 09, 2022 10:40am ONE EVERY TWO DAYS. Sodium Chloride (20 sources) Start: 08-15-2022 End: 08-18-2022 sodium chloride (PF) (NS) flush 5 mL Start: 06-04-2022 End: 09-03-2023 sodium chloride 0.9 % (flush ) 10 mL (BD POSIFLUSH) Start: 12-02-2021 sodium chlorid e (NEBUSAL) 3 % nebulizer solution Use 4 mL via nebulizer twice daily. 1200 mL 3 12/02/2021 Active Start: 08-28-2020 0.9 % sodium c hloride (0.9% NACL) NURSING USE ONLY: USED FOR IMPLANTED VASCULAR ACCESS DEVICE (IVAD) ACCESS. AMBULATORY/OUTPATIENT: PLEASE REORDER UPON HOSPITAL DISCHARGE May access implanted vascular access device (IVAD) as needed for treatment. Flush IVAD with 10-20 mL NS every 4 weeks and PRN when IVAD not in use. 1 Syringe 100 08/28/2020 Active Start: 07-22-2020 End: 10-21-2021 sodium chloride 0.9 % (flush ) 10 mL (BD POSIFLUSH) Start: 09-17-2018 End: 09-17-2018 sodium chloride 0.9% (NS) jerilyn caren 1,000 mL Start: 09-17-2018 End: 09-17-2018 sodium chloride (PF) (NS) fl ush 5 mL sodium chloride (PRATIMA 128) 5 % ophthalmic solution Use 1 Drop in both eyes as needed. Active sodium chloride (PRATIMA 128) 5 % ophthalmic solution Use 1 Drop in both eyes as needed. 0 Active Comment on above: Use 1 Drop in both e yes as needed. NURSING USE ONLY: USED FOR IMPLANTED VASCULAR ACCESS DEVICE (IVAD) ACCESS. AMBULATORY/OUTPATIENT: PLEASE REORDER UPON HOSPITAL DISCHARGE May access implanted vascular access device (IVAD) as needed for treatment. Flush IVAD with 10-20 mL NS every 4 weeks and PRN when IVAD not in use. Use 4 mL via nebuliz er twice daily. sucralfate 1000 mg oral tablet (3 sources) Aluminum Complex Start: 09-06-20 End: 08-15-20 sucralfate (CARAFATE) 1 gram tablet Take 1 g by mouth . 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 Swish and spit. Do NOT swallow. Can mix with Dexamethasone. For pharmacy use only: Tacrolimus 10 mg; Ora Plus 50 mL; Ora Sweet qs to 100 mL 600 mL 1 05/31/2019 12/01/2021 Discontinued 28 actuat teriparatide 0.02 mg/actuat pen injector (3 sources) Parathyroid Hormone Analog Start: 08-17-20 18 End: 08-15-20 inject 20 ug by subcutaneous injection once daily teriparatide (FORTEO) 20 mcg/dose - 600 mcg/2.4 mL injection INJECT 20 MCG (0.08 ML) UNDER THE SKIN ONCE A DAY (DISCARD 28 DAYS AFTER INITIAL USE) 0 08/17/2018 08/15/2022 Discontinued Vitamin B Complex (20 sources) Start: 05-06-20 End: 02-19-20 Vitamin B Complex Discontinued 1 EACH PO DAILY May 06, 2019 11:16pm February 19, 2020 3:30pm Start: 05-06-2019 End: 02-19-2020 Vitamin B Complex Discontinu ed 1 EACH PO DAILY May 05, 2019 11:00pm February 19, 2020 2:30pm Start: 05-06-2019 End: 02-19-2020 Vitamin B Complex Discontinu ed 1 EACH PO DAILY May 06, 2019 12:00am February 19, 2020 3:30pm End: 04-21-2022 take 1 tablet by mouth once daily vitamin b complex tab Take 1 tablet by mouth once daily. 04/21/2022 Discontinued End: 04-21-2022 take 1 tablet by mouth once daily vitamin b complex tab Take 1 tablet by mouth once daily. 0 04/21/2022 Discontinued take 1 tablet by rodolfo th once daily vitamin b complex tab Take 1 tablet by mouth once daily. 0 Active Comment on above: Take 1 tablet by rodolfo th once daily. 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 0 04/14/2018 08/15/2022 Discontinued Problems Active Problems Problem Classification Problem Date Documented Date Episodic/Chronic Asthma (4 sources) Reactive airway disease; Translations: [Unspecified asthma, uncomplicated] 08-20-2022 Chronic Cardiac dysrhythmias (20 sources) Atrial fibrillation with rapid ventricular response; Translations: [Unspecified atrial fibrillation] Onset: 5 01-16-2017 Chronic Cataract (2 sources) Pseudophakia; Translations: [Presence of intraocular lens] Chronic Chronic kidney disease (20 sources) Chronic kidney disease stage 3; Translations: [Stage 3 chronic kidney disease] Onset: 8 Resolved: 2 05-13-2018 Chronic Chronic obstructive pulmonary disease and bronchiectasis (20 sources) Bronchiectasis; Translations: [Bronchiectasis, uncomplicated] Onset: 2 Resolved: 4 12-17-2021 Chronic Coagulation and hemorrhagic disorders (3 sources) Platelet count below reference range; Translations: [Thrombocytopenia, unspecified] Chronic Deficiency and other anemia (11 sources) Anemia; Translations: [Anemia, unspecified] 12-16-2018 Episodic Esophageal disorders (20 sources) Gastroesophageal reflux disease; Translations: [Gastro-esophageal reflux disease without esophagitis] Onset: 5 01-25-2017 Chronic Essential hypertension (20 sources) Essential hypertension; Translations: [Essential (primary) hypertension] Onset: 1 11-25-2020 Chronic Fever of unknown origin (1 source) Fever, unspecified; Translations: [Fever, unspecified] Onset: 8 Episodic Gastroduodenal ulcer (except hemorrhage) (20 sources) Peptic ulcer; Translations: [Peptic ulcer, site unspecified, unspecified as acute or chronic, without hemorrhage or perforation] Onset: 8 09-18-2018 Chronic Gastrointestinal hemorrhage (18 sources) Rectal hemorrhage; Translations: [Hemorrhage of anus and rectum] Onset: 5 03-07-2025 Episodic Genitourinary symptoms and ill-defined conditions (16 sources) Dysuria; Translations: [Dysuria] Episodic Immunity disorders (11 sources) Patient immunocompromised; Translations: [Immunodeficiency, unspecified] 05-08-2019 Chronic Intestinal infection (20 sources) Viral gastroenteritis due to Rotavirus; Translations: [Rotaviral enteritis] Episodic Leukemias (20 sources) Acute myeloblastic leukemia, in remission; Translations: [Acute myeloid leukemia, disease] Onset: 4 01-25-2017 Chronic Maintenance chemotherapy; radiotherapy (2 sources) Patient encounter status; Translations: [Encounter for antineoplastic chemotherapy] Chronic Malaise and fatigue (1 source) Fatigue; Translations: [Chronic fatigue, unspecified] 04-20-2025 Chronic Menopausal disorders (1 source) Atrophic vaginitis; Translations: [Postmenopausal atrophic vaginitis] 07-26-2024 Chronic Miscellaneous mental health disorders (1 source) Chronic insomnia; Translations: [Psychophysiologic insomnia] 09-21-2024 Chronic Noninfectious gastroenteritis (16 sources) Gastroenteritis; Translations: [Noninfective gastroenteritis and colitis, unspecified] Episodic Nutritional deficiencies (20 sources) Vitamin D deficiency; Translations: [Vitamin D deficiency, unspecified] Onset: 6 09-07-2016 Chronic Osteoporosis (20 sources) Osteoporosis; Translations: [Age-related osteoporosis without current pathological fracture] Onset: 6 01-16-2017 Chronic Other aftercare (6 sources) Patient encounter status; Translations: [Encounter for therapeutic drug level monitoring] Episodic Other aftercare (1 source) Long-term current use of drug therapy; Translations: [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] 03-28-2025 Episodic Other circulatory disease (9 sources) Orthostatic hypotension; Translations: [Orthostatic hypotension] 01-18-2022 Episodic Other circulatory disease (4 sources) Orthostatic hypotension; Translations: [Orthostatic hypotension] Episodic Other connective tissue disease (20 sources) History of repair of hip joint; Translations: [Presence of left artificial hip joint] Onset: 9 02-02-2019 Chronic Other connective tissue disease (1 source) Pain in bilateral legs; Translations: [Pain in right leg] 06-02-2024 Episodic Other connective tissue disease (1 source) Pain of bilateral thighs; Translations: [Pain in right thigh] 06-08-2024 Episodic Other connective tissue disease (1 source) Muscle pain; Translations: [Myalgia, unspecified site] 03-28-2025 Episodic Other ear and sense organ disorders (1 source) Hearing loss; Translations: [Unspecified hearing loss, unspecified ear] 09-21-2024 Chronic Other ear and sense organ disorders (1 source) Excessive cerumen in ear canal ; Translations: [Impacted cerumen, right ear] Episodic Other eye disorders (1 source) Dry eyes; Translations: [Dry eye syndrome of unspecified lacrimal gland] Episodic Other eye disorders (1 source) Recurrent erosion of cornea of right eye; Translations: [Recurrent erosion of cornea, right eye] Episodic Other eye disorders (3 sources) Disorder of lacrimal gland; Translations: [Dry eye syndrome of bilateral lacrimal glands] Episodic Other female genital disorders (1 source) Pruritus of vagina; Translations: [Other specified noninflammatory disorders of vagina] Episodic Other gastrointestinal disorders (20 sources) Ileostomy present; Translations: [Ileostomy status] Onset: 6 09-07-2016 Chronic Other gastrointestinal disorders (1 source) Ileostomy status; Translations: [Ileostomy present (HCC)] Onset: 3 Chronic Other gastrointestinal disorders (1 source) High output ileostomy; Translations: [Other specified symptoms and signs involving the digestive system and abdomen] Episodic Other gastrointestinal disorders (1 source) Other specified symptoms and signs involving the digestive system and abdomen; Translations: [Other symptoms involving digestive system] Episodic Other hematologic conditions (1 source) Macrocytosis; Translations: [Other specified diseases of blood and blood-forming organs] Chronic Other hematologic conditions (1 source) Macrocytosis - no anemia; Translations: [Other specified diseases of blood and blood-forming organs] Chronic Other hematologic conditions (1 source) MCV - raised; Translations: [Other abnormality of red blood cells] Episodic Other injuries and conditions due to external causes (1 source) Injury of right lower leg; Translations: [Unspecified injury of right lower leg, initial encounter] 10-18-2024 Episodic Other liver diseases (3 sources) Elevated liver enzymes level; Translations: [Abnormal levels of other serum enzymes] Episodic Other lower respiratory disease (7 sources) Cough; Translations: [Cough] 03-06-2022 Episodic Other lower respiratory disease (2 sources) Hypoxemia; Translations: [Hypoxemia] Onset: 2 Episodic Other lower respiratory disease (2 sources) Dyspnea, unspecified; Translations: [Dyspnea, unspecified] Onset: 2 Episodic Other lower respiratory disease (2 sources) Restrictive lung disease; Translations: [Other disorders of lung] 12-20-2023 Episodic Other lower respiratory disease (1 source) Dyspnea on exertion; Translations: [Other forms of dyspnea] 06-08-2024 Episodic Other lower respiratory disease (1 source) Lower respiratory tract infection; Translations: [Unspecified acute lower respiratory infection] 05-13-2021 Episodic Other nervous system disorders (1 source) Neuropathy; Translations: [Polyneuropathy, unspecified] 11-18-2023 Chronic Other nutritional; endocrine; and metabolic disorders (20 sources) 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; Translations: [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] Onset: 7 07-16-2017 Chronic Other nutritional; endocrine; and metabolic disorders (20 sources) Hypercalcemia; Translations: [Hypercalcemia] Onset: 8 09-15-2018 Chronic Other nutritional; endocrine; and metabolic disorders (20 sources) Obese class I; Translations: [Obesity, unspecified] Onset: 0 06-27-2020 Chronic Other nutritional; endocrine; and metabolic disorders (5 sources) Hypomagnesemia; Translations: [Hypomagnesemia] 03-29-2024 Chronic Other nutritional; endocrine; and metabolic disorders (1 source) Hypophosphatemia; Translations: [Other disorders of phosphorus metabolism] Chronic Other nutritional; endocrine; and metabolic disorders (1 source) Other disorders of phosphorus metabolism; Translations: [Disorders of phosphorus metabolism] Chronic Other nutritional; endocrine; and metabolic disorders (20 sources) Obesity; Translations: [Obesity, unspecified] Onset: 0 Resolved: 7 06-03-2022 Chronic Other nutritional; endocrine; and metabolic disorders (1 source) Obese class II; Translations: [Class II obesity] 01-22-2025 Chronic Other nutritional; endocrine; and metabolic disorders (1 source) Obesity caused by energy imbalance; Translations: [Class 1 obesity due to excess calories with body mass index (BMI) of 34.0 to 34.9 in adult, unspecified whether serious comorbidity present] 03-28-2025 Chronic Other skin disorders (3 sources) Loss of hair; Translations: [Nonscarring hair loss, unspecified] Episodic Other skin disorders (1 source) Eruption; Translations: [Rash and other nonspecific skin eruption] Episodic Other skin disorders (1 source) Lesion of skin of breast; Translations: [Other specified disorders of the skin and subcutaneous tissue] 02-10-2024 Episodic Other upper respiratory disease (2 sources) Chronic rhinitis; Translations: [Chronic rhinitis] Chronic Other upper respiratory disease (4 sources) Acute bronchospasm; Translations: [Acute bronchospasm] 06-26-2022 Episodic Other upper respiratory disease (1 source) Nasal discharge; Translations: [Other specified disorders of nose and nasal sinuses] 09-21-2024 Episodic Other upper respiratory infections (2 sources) Chronic sinusitis; Translations: [Chronic sinusitis, unspecified] Onset: 5 01-22-2025 Chronic Other upper respiratory infections (11 sources) Viral upper respiratory tract infection; Translations: [Acute upper respiratory infection, unspecified] 08-20-2022 Episodic Peripheral and visceral atherosclerosis (1 source) Peripheral vascular disease, unspecified; Translations: [Claudication of both lower extremities (HCC)] Onset: Chronic Residual codes; unclassified (20 sources) History of allotransplantation of bone marrow; 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] 01-25-2017 Chronic Residual codes; unclassified (7 sources) H/O: tissue/organ recipient; 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] Chronic Residual codes; unclassified (8 sources) History of bone marrow transplant; 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] 02-19-2020 Chronic Residual codes; unclassified (2 sources) Hypoxia; Translations: [Idiopathic sleep related nonobstructive alveolar hypoventilation] 12-20-2023 Chronic Residual codes; unclassified (11 sources) History of syncope; Translations: [Personal history of other specified conditions] 02-19-2020 Episodic Residual codes; unclassified (11 sources) History of total colectomy; Translations: [Acquired absence of other specified parts of digestive tract] 02-19-2020 Episodic Residual codes; unclassified (3 sources) At risk for physiological dysfunction; Translations: [Other specified personal risk factors, not elsewhere classified] 03-31-2023 Episodic Residual codes; unclassified (2 sources) Menopause present; Translations: [Asymptomatic menopausal state] 03-29-2024 Episodic Residual codes; unclassified (1 source) At risk of disease; Translations: [Other specified personal risk factors, not elsewhere classified] 06-01-2024 Episodic Residual codes; unclassified (1 source) Bilateral lower limb edema; Translations: [Localized edema] 03-28-2025 Episodic Residual codes; unclassified (1 source) Localized edema; Translations: [Bilateral lower extremity edema] Onset: 5 Episodic Septicemia (except in labor) (11 sources) Sepsis; Translations: [Sepsis, unspecified organism] 05-08-2019 Episodic Syncope (11 sources) Vasovagal syncope; Translations: [Syncope and collapse] 12-16-2018 Episodic Thyroid disorders (20 sources) Hypothyroidism; Translations: [Hypothyroidism, unspecified] Onset: 2 06-05-2017 Chronic Unclassified (2 sources) Bone marrow transplant status; 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] Onset: 7 Chronic Unclassified (20 sources) OPENED IN ERROR Onset: 3 12-29-2022 Unclassified (20 sources) High Risk Chronic Disease Home Monitoring Problem Onset: 3 02-03-2023 Unclassified (1 source) Class II obesity; Translations: [Class II obesity] Onset: 5 Unclassified (1 source) Acute cough; Translations: [Acute cough] Onset: 5 Urinary tract infections (9 sources) Urinary tract infectious disease; Translations: [Urinary tract infection, site not specified] 05-23-2022 Episodic Past or Other Problems Problem Classification Problem Date Documented Da te Episodic/Chronic Abdominal hernia (20 sources) Hernia of anterior abdominal wall; Translations: [Ventral hernia without obstruction or gangrene] Onset: 0 Resolved: 0 Episodic Abdominal pain (20 sources) Vulval pain; Translations: [Pelvic and perineal pain] Onset: 7 Resolved: 7 Episodic Acute and unspecified renal failure (20 sources) Acute injury of kidney; Translations: [Acute kidney failure, unspecified] Onset: 8 Resolved: 2 09-18-2018 Episodic Cardiac and circulatory congenital anomalies (20 sources) Patent foramen ovale; Translations: [PFO (patent foramen ovale)] Resolved: 7 01-16-2017 Chronic Cardiac dysrhythmias (20 sources) Tachycardia; Translations: [Tachycardia, unspecified] Onset: 0 07-22-2020 Episodic Complication of device; implant or graft (20 sources) Graft versus host disease; 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 disease, unspecified] Onset: 6 Resolved: 6 01-16-2017 Chronic Complication of device; implant or graft (20 sources) Graft versus host disease; 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] Onset: 6 12-17-2021 Episodic Conduction disorders (20 sources) Right bundle branch block; Translations: [Unspecified right bundle-branch block] Onset: 7 Resolved: 8 Chronic Diabetes mellitus with complications (20 sources) Type 2 diabetes mellitus; Translations: [Type 2 diabetes mellitus with other diabetic kidney complication] Onset: 6 Resolved: 2 02-18-2018 Chronic Diseases of white blood cells (20 sources) Febrile neutropenia; Translations: [Neutropenia, unspecified] Onset: 7 Resolved: 7 12-15-2018 Chronic Fluid and electrolyte disorders (20 sources) Dehydration; Translations: [Dehydration] Onset: 8 Resolved: 2 05-13-2018 Episodic Immunizations and screening for infectious disease (2 sources) Needs influenza immunization; Translations: [Encounter for immunization] Onset: 5 Episodic Intestinal obstruction without hernia (20 sources) Small bowel obstruction; Translations: [Unspecified intestinal obstruction, unspecified as to partial versus complete obstruction] Onset: 7 Resolved: 3 02-19-2020 Episodic Malaise and fatigue (20 sources) Physical deconditioning; Translations: [Other malaise] Onset: 6 Resolved: 6 09-15-2021 Episodic Mycoses (20 sources) Candidiasis of mouth; Translations: [Candidal stomatitis] Onset: 2 Episodic Nausea and vomiting (20 sources) Nausea, vomiting and diarrhea; Translations: [Nausea and vomiting] Onset: 7 Resolved: 7 01-29-2017 Episodic Nutritional deficiencies (6 sources) Cobalamin deficiency; Translations: [Deficiency of other specified B group vitamins] Episodic Other aftercare (20 sources) Long-term current use of anticoagulant; Translations: [director long 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 of anticoagulants] Onset: 7 06-03-2017 Episodic Other aftercare (20 sources) Drug-induced immunodeficiency ; Translations: [Immunodeficiency due to treatment with immunosuppressive medication] Onset: 8 08-23-2019 Episodic Other connective tissue disease (1 source) Lateral epicondylitis of bilateral humerus; Translations: [Lateral epicondylitis, right elbow] 10-31-2023 Episodic Other endocrine disorders (20 sources) Hypocortisolism secondary to another disorder; Translations: [Other adrenocortical insufficiency] Onset: 6 Resolved: 8 04-27-2018 Chronic Other gastrointestinal disorders (20 sources) Diarrhea; Translations: [Diarrhea, unspecified] Onset: 5 Resolved: 7 01-21-2017 Episodic Other infections; including parasitic (20 sources) Personal history of other infectious and parasitic diseases; Translations: [Personal history of other infectious and parasitic diseases] Onset: 7 Resolved: 7 01-21-2017 Episodic Other inflammatory condition of skin (20 sources) Itching ; Translations: [Pruritus, unspecified] Onset: 8 Resolved: 8 02-18-2018 Episodic Other injuries and conditions due to external causes (1 source) Unspecified injury of head, initial encounter; Translations: [Unspecified injury of head, initial encounter] Onset: 4 Episodic Other lower respiratory disease (20 sources) Dyspnea; Translations: [Shortness of breath] Onset: 1 Resolved: 2 10-14-2020 Episodic Other lower respiratory disease (1 source) Shortness of breath; Translations: [SOB (shortness of breath)] Onset: 4 Episodic Other nervous system disorders (20 sources) Abnormal gait; Translations: [Unspecified abnormalities of gait and mobility] Onset: 6 Resolved: 7 01-21-2017 Episodic Other nutritional; endocrine; and metabolic disorders (20 sources) Metabolic syndrome X; Translations: [Metabolic syndrome] Resolved: 6 09-07-2016 Chronic Other screening for suspected conditions (not mental disorders or infectious disease) (20 sources) Other specified abnormal findings of blood chemistry; Translations: [Other abnormal blood chemistry] Onset: 7 Resolved: 7 03-04-2018 Episodic Phlebitis; thrombophlebitis and thromboembolism (20 sources) H/O: Deep vein thrombosis; Translations: [Personal history of other venous thrombosis and embolism] Onset: 6 01-18-2017 Episodic Pleurisy; pneumothorax; pulmonary collapse (20 sources) Right pneumothorax; Translations: [Pneumothorax, unspecified] Resolved: 6 09-15-2021 Episodic Pneumonia (except that caused by tuberculosis or sexually transmitted disease) (20 sources) Community acquired pneumonia; Translations: [Pneumonia, unspecified organism] Onset: 7 Resolved: 7 05-08-2019 Episodic Pulmonary heart disease (20 sources) Acute pulmonary embolism; Translations: [Other pulmonary embolism without acute cor pulmonale] Onset: 5 Resolved: 6 09-15-2021 Episodic Residual codes; unclassified (20 sources) History of colectomy; Translations: [Acquired absence of other specified parts of digestive tract] Onset: 8 04-16-2018 Episodic Residual codes; unclassified (20 sources) History of partial resection of colon; Translations: [Acquired absence of other specified parts of digestive tract] Onset: 5 Resolved: 7 05-05-2017 Episodic Residual codes; unclassified (20 sources) Insomnia; Translations: [Insomnia, unspecified] Onset: 8 Resolved: 8 09-18-2018 Episodic Residual codes; unclassified (1 source) Other specified personal risk factors, not elsewhere classified; Translations: [At risk for fluid and electrolyte imbalance] Onset: 4 Episodic Residual codes; unclassified (1 source) Asymptomatic menopausal state; Translations: [Asymptomatic menopause] Onset: 4 Episodic Screening and history of mental health and substance abuse codes (2 sources) Encounter for screening for depression; Translations: [Encounter for screening examination for other mental health and behavioral disorders] Onset: 5 Episodic Unclassified (1 source) Patient encounter status 05-16-2025 Viral infection (20 sources) Viral disease; Translations: [Viral infection, unspecified] Onset: 5 Resolved: 6 Episodic Results Test Name Value Interpretation Reference Range Facility CBC W Auto Differential pane l (Bld)on 05-04-2025 Basophils (Bld) [#/Vol] 0.04 10*3/uL [facility] Basophils/100 WBC (Bld) 0.6 % C [facility] Differential cell count method Nom (Bld) Auto [facility] Eosinophils (Bld) [#/Vol] 0.45 10*3/uL [facility] Eosinophils/100 WBC (Bld) 6.9 % [facility] Erythrocyte distribution width (RBC) [Ratio] 14.1 % 11.5 - 15.0 % [facility] Hematocrit (Bld) [Volume fraction] 43.7 % 36.0 - 46.0 % [facility] Hemoglobin (Bld) [Mass/Vol] 14.6 g/dL 11.5 - 15.5 g/dL [facility] Immature granulocytes (Bld) [#/Vol] [facility] Immature granulocytes/100 WBC (Bld) 0.2 % [facility] Lymphocytes (Bld) [#/Vol] 3.32 10*3/uL [facility] Lymphocytes/100 WBC (Bld) 50.8 % [facility] MCH (RBC) [Entitic mass] 33.3 pg 26.0 - 34.0 pg [facility] MCHC (RBC) [Mass/Vol] 33.4 g/dL 30.5 - 36.0 g/dL [facility] MCV (RBC) [Entitic vol] 99.5 fL 80.0 - 100.0 fL [facility] Monocytes (Bld) [#/Vol] 0.70 10*3/uL [facility] Monocytes/100 WBC (Bld) 10.7 % [facility] Neutrophils (Bld) [#/Vol] 2.02 10*3/uL [facility] Neutrophils/100 WBC (Bld) 30.8 % [facility] Nucleated RBC (Bld) [#/Vol] NINF [facility] Nucleated RBC/100 WBC (Bld) [Ratio] 0.0 % /100 WBC [facility] Platelet mean volume (Bld) [Entitic vol] 11.1 fL 9.0 - 12.7 fL [facility] Platelets (Bld) [#/Vol] 206 10*3/uL [facility] RBC (Bld) [#/Vol] 4.39 10*6/uL 3.90 - 5.2 0 m/uL [facility] WBC (Bld) [#/Vol] 6.54 10*3/uL [facility] Comprehensive metabolic 2000 panelon 05-04-2025 Albumin [Mass/Vol] 3.8 g/dL Low 3.9 - 4.9 g/dL [facility] ALP [Catalytic activity/Vol] 96 U/L 34 - 123 U/L [facility] ALT [Catalytic activity/Vol] 40 U/L High 7 - 38 U/L [facility] Anion gap [Moles/Vol] 11 mmol/L 8 - 15 mmol/L [facility] AST [Catalytic activity/Vol] 41 U/L High 13 - 35 U/L [facility] Bilirubin [Mass/Vol] 0.5 mg/dL 0.2 - 1 .3 mg/dL [facility] Calcium [Mass/Vol] 8.8 mg/dL 8.5 - 10. 2 mg/dL [facility] Chloride [Moles/Vol] 106 mmol/L 98 - 10 7 mmol/L [facility] CO2 [Moles/Vol] 23 mmol/L 22 - 30 mmol/L [facility] Creatinine [Mass/Vol] 0.73 mg/dL 0.58 - 0.96 mg/dL [facility] GFR/1.73 sq M.predicted among non-blacks MDRD (S/P/Bld) [Vol rate/Area] 86 mL/min/{1.73_m2} - PINF [facility] Comment on above: Estimated Glomerular Filtration Rate (eGFR) is calculated using the 2020 CKD-EPI creatinine equation. This equation utilizes serum creatinine, sex, and age as parameters. The creatinine assay has traceable calibration to isotope dilution-mass spectrometry. Refer to KDIGO guidelines for clinical interpretation. In patients with unstable renal function, e.g. those with acute kidney injury, the eGFR may not accurately reflect actual GFR. Glucose [Mass/Vol] 90 mg/dL 74 - 99 mg/dL [facility] Comment on above: The [place] Di[employer] Association (ADA) provides guidance for cutoff values for fasting glucose and random glucose. The ADA defines fasting as no caloric intake for at least 8 hours. Fasting plasma glucose results between 100 to 125 mg/dL indicate increased risk for diabetes (prediabetes). Fasting plasma glucose results greater than or equal to 126 mg/dL meet the criteria for diagnosis of diabetes. In the absence of unequivocal hyperglycemia, results should be confirmed by repeat testing. In a patient with classic symptoms of hyperglycemia or hyperglycemic crisis, random plasma glucose results greater than or equal to 200 mg/dL meet the criteria for diagnosis of diabetes. Reference: Standards of Medical Care in Diabetes 2016, [place] [employer]. Diabetes Care. 2016.39(Suppl 1). Interpretation and review of laboratory results Abnormal [facility] Potassium [Moles/Vol] 4.1 mmol/L 3.7 - 5.1 mmol/L [facility] Protein [Mass/Vol] 6.6 g/dL 6.3 - 8.0 g/dL [facility] Sodium [Moles/Vol] 140 mmol/L 136 - 144 mmol/L [facility] Urea nitrogen [Mass/Vol] 20 mg/dL 7 - 21 mg/dL [facility] Flexible sigmoidoscopy study on 04-11-2025 [facility] Gastrointestinal Endoscopy Patient Name: Cong Smith Procedure Date: 04/11/2025 7:49 AM Date of : 1950 Admit Type: Outpatient Age: 75 Gender: Female Note Status: Finalized Procedure: Colonoscopy Indications: Rectal bleeding Providers: Jenn Burton Patient Profile: This is a 75 year old female. Refer to note in patient chart for documentation of history and physical. Last Colonoscopy: 2018. Referring Physician: Jonathan Posey MD (Referring MD) Medicines: Fentanyl 100 micrograms IV, Midazolam 4 mg IV Complications: No immediate complications. Requesting Provider: Procedure: Pre-Anesthesia Assessment: - Prior to the procedure, a History and Physical was performed, and patient medications and allergies were reviewed. The patient is competent. The risks and benefits of the procedure and the sedation options and risks were discussed with the patient. All questions were answered and informed consent was obtained. Patient identification and proposed procedure were verified by the physician and the nurse in the pre-procedure area in the endoscopy suite. Mental Status Examination: alert and oriented. Airway Examination: normal oropharyngeal airway and neck mobility. Respiratory Examination: clear to auscultation. CV Examination: normal. Prophylactic Antibiotics: The patient does not require prophylactic antibiotics. Prior Anticoagulants: The patient has taken Eliquis (apixaban), last dose was 3 days prior to procedure. ASA Grade Assessment: III - A patient with severe systemic disease. After reviewing the risks and benefits, the patient was deemed in satisfactory condition to undergo the procedure. The anesthesia plan was to use moderate sedation / analgesia (conscious sedation). Immediately prior to administration of medications, the patient was re-assessed for adequacy to receive sedatives. The heart rate, respiratory rate, oxygen saturations, blood pressure, adequacy of pulmonary ventilation, and response to care were monitored throughout the procedure. The physical status of the patient was re-assessed after the procedure. After I obtained informed consent, the scope was passed under direct vision. Throughout the procedure, the patient's blood pressure, pulse, and oxygen saturations were monitored continuously. The was introduced through the anus and advanced to the rectum for evaluation. This was the intended extent. The colonoscopy was technically difficult and complex due to stenosis of the anus. Successful completion of the procedure was aided by digitially dilating the anus and switching from a colonoscope to endoscope. The patient tolerated the procedure well. The quality of the bowel preparation was not applicable. The anus was not prepped. Anus and rectal stump were photographed. Moderate Sedation: The administration of moderate sedation was initiated at 08:18. Moderate (conscious) sedation was administered by the nurse and supervised by the endoscopist. The following parameters were monitored: oxygen saturation, heart rate, blood pressure, respiratory rate, EKG, adequacy of pulmonary ventilation, and response to care. Total physician intraservice time was 12 minutes. Findings: There was a tight striture of the anus. The anus measured approximately 4mm prior to dilation. The anus was then digitially dilated with the 5th digit. The colonoscope was exchanged for an endoscope. The endoscope was able to be advanced through the anus into the rectal stump. Biopsies were taken with a cold forceps for histology. Multiple biopsies were taken of the friable and inflammed rectal mucosa to rule out graft versus host disease. Estimated blood loss was minimal. Verification of patient identification f (more content not included)... PROVATION [facility] Radiology Study observation (narrative) [facility] 25-hydroxyvitamin D3 [Mass/V ol]on 03-07-2025 Interpretation and review of laboratory results Normal [facility] The reference range interval was based on an analysis of samples from healthy adults and may not pertain to children from 0-18 years old. [facility] CBC W Auto Differential pane l (Bld)on 03-07-2025 Basophils (Bld) [#/Vol] 0.04 10*3/uL [facility] Basophils/100 WBC (Bld) 0.6 % C [facility] Differential cell count method Nom (Bld) Auto [facility] Eosinophils (Bld) [#/Vol] 0.36 10*3/uL [facility] Eosinophils/100 WBC (Bld) 5.3 % [facility] Erythrocyte distribution width (RBC) [Ratio] 15.7 % High 11.5 - 15.0 % [facility] Hematocrit (Bld) [Volume fraction] 41 % 36.0 - 46.0 % [facility] Hemoglobin (Bld) [Mass/Vol] 14 g/dL 11.5 - 15.5 g/dL [facility] Immature granulocytes (Bld) [#/Vol] [facility] Immature granulocytes/100 WBC (Bld) 0.1 % [facility] Interpretation and review of laboratory results Abnormal [facility] Lymphocytes (Bld) [#/Vol] 3.05 10*3/uL [facility] Lymphocytes/100 WBC (Bld) 44.9 % [facility] MCH (RBC) [Entitic mass] 33.6 pg 26.0 - 34.0 pg [facility] MCHC (RBC) [Mass/Vol] 34.1 g/dL 30.5 - 36.0 g/dL [facility] MCV (RBC) [Entitic vol] 98.3 fL 80.0 - 100.0 fL [facility] Monocytes (Bld) [#/Vol] 0.87 10*3/uL High [facility] Monocytes/100 WBC (Bld) 12.8 % [facility] Neutrophils (Bld) [#/Vol] 2.47 10*3/uL [facility] Neutrophils/100 WBC (Bld) 36.3 % [facility] Nucleated RBC (Bld) [#/Vol] NINF [facility] Nucleated RBC/100 WBC (Bld) [Ratio] 0 % /100 WBC [facility] Platelet mean volume (Bld) [Entitic vol] 10.2 fL 9.0 - 12.7 fL [facility] Platelets (Bld) [#/Vol] 225 10*3/uL [facility] RBC (Bld) [#/Vol] 4.17 10*6/uL 3.90 - 5.2 0 m/uL [facility] WBC (Bld) [#/Vol] 6.8 10*3/uL [facility] Comprehensive metabolic 2000 panelon 03-07-2025 Albumin [Mass/Vol] 3.8 g/dL Low 3.9 - 4.9 g/dL [facility] ALP [Catalytic activity/Vol] 90 U/L 34 - 123 U/L [facility] ALT [Catalytic activity/Vol] 32 U/L 7 - 38 U/L [facility] Anion gap [Moles/Vol] 12 mmol/L 8 - 15 mmol/L [facility] AST [Catalytic activity/Vol] 31 U/L 13 - 35 U/L [facility] Bilirubin [Mass/Vol] 0.3 mg/dL 0.2 - 1 .3 mg/dL [facility] Calcium [Mass/Vol] 9.3 mg/dL 8.5 - 10. 2 mg/dL [facility] Chloride [Moles/Vol] 105 mmol/L 98 - 10 7 mmol/L [facility] CO2 [Moles/Vol] 20 mmol/L Low 22 - 30 mmol/L [facility] Creatinine [Mass/Vol] 0.69 mg/dL 0.58 - 0.96 mg/dL [facility] GFR/1.73 sq M.predicted among non-blacks MDRD (S/P/Bld) [Vol rate/Area] 91 mL/min/{1.73_m2} - PINF [facility] Comment on above: Estimated Glomerular Filtration Rate (eGFR) is calculated using the 2020 CKD-EPI creatinine equation. This equation utilizes serum creatinine, sex, and age as parameters. The creatinine assay has traceable calibration to isotope dilution-mass spectrometry. Refer to KDIGO guidelines for clinical interpretation. In patients with unstable renal function, e.g. those with acute kidney injury, the eGFR may not accurately reflect actual GFR. Glucose [Mass/Vol] 106 mg/dL High 74 - 99 mg/dL [facility] Comment on above: The [place] Di[employer] Association (ADA) provides guidance for cutoff values for fasting glucose and random glucose. The ADA defines fasting as no caloric intake for at least 8 hours. Fasting plasma glucose results between 100 to 125 mg/dL indicate increased risk for diabetes (prediabetes). Fasting plasma glucose results greater than or equal to 126 mg/dL meet the criteria for diagnosis of diabetes. In the absence of unequivocal hyperglycemia, results should be confirmed by repeat testing. In a patient with classic symptoms of hyperglycemia or hyperglycemic crisis, random plasma glucose results greater than or equal to 200 mg/dL meet the criteria for diagnosis of diabetes. Reference: Standards of Medical Care in Diabetes 2016, [place] [employer]. Diabetes Care. 2016.39(Suppl 1). Interpretation and review of laboratory results Abnormal [facility] Potassium [Moles/Vol] 3.7 mmol/L 3.7 - 5.1 mmol/L [facility] Protein [Mass/Vol] 6.2 g/dL Low 6.3 - 8.0 g/dL [facility] Sodium [Moles/Vol] 137 mmol/L 136 - 144 mmol/L [facility] Urea nitrogen [Mass/Vol] 25 mg/dL High 7 - 21 mg/dL [facility] MAGNESIUMOrdered By: Ruth bai on 03-07-2025 Magnesium [Mass/Vol] 1.9 mg/dL 1.7 - 2 .3 mg/dL [facility] Magnesium [Mass/Vol]Ordered By: Ruth Schneider on 03-07-2025 Interpretation and review of laboratory results Normal [facility] No Panel Informationon 03-07 Interpretation and review of laboratory results Normal [facility] No Panel InformationOrdered By: Ruth Schneider on 03-07-2025 [facility] TSH W/REFLEX FT4on TSH Qn 1.71 m[IU]/L [facility] VITAMIN B12on 03-07-2025 Cobalamin (Vitamin B12) [Mass/Vol] 1123 pg/mL 232 - 1245 pg/mL [facility] VITAMIN D 25 HYDROXYon 03-07 25-hydroxyvitamin D3 [Mass/Vol] 79.6 ng/mL 31.0 - 80.0 ng/mL [facility] Comment on above: Classification of 25 [place] Vitamin D status: Deficiency/Insufficiency: < or = 30 ng/ml. Sufficiency/Optimal Levels: 31-80 ng/mL Toxicity: > 100 ng/mL. Test performed by chemiluminescent immunoassay. XR Tibia and Fibula - right AP and Lateralon 10-18-2024 IMPRESSION: Heterogeneous appearance of the medial tibial condyle/plateau. Please clinically correlate. Machine Silk Screen Printer: PSCB Transcribe Date/Time: Oct 18 2024 1:04P Dictated by : CAMILA BAUTISTA MD This examination was interpreted and the report reviewed and electronically signed by: CAMILA BAUTISTA MD on Oct 18 2024 1:07PM [facility] DIVISION OF RADIOLOGY * * *Final Report* * * DATE OF EXAM: Oct 18 2024 1:03PM WOX [id number] - XR TIBIA FIBULA 2V AP/LAT RT / PROCEDURE REASON: Injury of right lower leg, initial encounter * * * * Physician Interpretation * * * * EXAM TITLE: XR TIBIA FIBULA 2V AP/LAT RT EXAM DATE/TIME: 10/18/2024 1:03 PM COMPARISON: None. CLINICAL INDICATION/HISTORY: Injury. TECHNIQUE: AP and lateral views of the right tibia and fibula are presented. FINDINGS: Heterogeneous appearance of the medial tibial condyle/plateau is noted. The right knee and right ankle joint spaces appear maintained. There is no significant soft tissue swelling. DIVISION OF RADIOLOGY Provider, [facility] - 10/18/2024 * * *Final Report* * * DATE OF EXAM: Oct 18 2024 1:03PM WOX [id number] - XR TIBIA FIBULA 2V AP/LAT RT / PROCEDURE REASON: Injury of right lower leg, initial encounter * * * * Physician Interpretation * * * * EXAM TITLE: XR TIBIA FIBULA 2V AP/LAT RT EXAM DATE/TIME: 10/18/2024 1:03 PM COMPARISON: None. CLINICAL INDICATION/HISTORY: Injury. TECHNIQUE: AP and lateral views of the right tibia and fibula are presented. FINDINGS: Heterogeneous appearance of the medial tibial condyle/plateau is noted. The right knee and right ankle joint spaces appear maintained. There is no significant soft tissue swelling. IMPRESSION IMPRESSION: Heterogeneous appearance of the medial tibial condyle/plateau. Please clinically correlate. Machine Silk Screen Printer: PSCAjay Transcribe Date/Time: Oct 18 2024 1:04P Dictated by : CAMILA BAUTISTA MD This examination was interpreted and the report reviewed and electronically signed by: CAMILA BAUTISTA MD on Oct 18 2024 1:07PM EST [facility] Radiology Study observation (narrative) Cedric [facility] XR Tibia and Fibula - right AP and LateralOrdered By: Ccf Provider on 10-18-2024 [facility] CT - Individual Treatment Pl anon 10-05-2024 CT - Individual Treatment Plan [facility] Pulmonary Rehab Reports [address] [place] [address] CT - Individual Treatment Plan MR#: [id number] Acct: [id number] Name: CONG SMITH Rep #: [id number] : 1950 74 From: Westley Hernandez BS, RVT PCP: Dr. Lidia Lopez MD Exercise - Initial Assessment Visit Session Number:: 8 Physician Prescribed Exercise Modalities: Treadmill, SciFit Stepper and SciFit Pro-II Ergometer Current METSs:: 2.2 Target HR:: 110 (88-110) Current RPD:: 2-3 Maximum Exercise HR:: 132 Resting Blood Pressure: 130/80 Maximum Exercise Blood Pressure: 148/80 Minimum SpO2 with exercise: 89 EKG Type: NSR to ST with rare ectopy Nutrition/Wt Mgmt - Initial Visit Session Number:: 8 Weight Management Admit Height:: 4 ft 10 in Admit Weight:: 169 lb Admit BMI:: 35.3 Nutrition/Wt Mgmt - 30-Day Visit Date of Eval: 10/05/24 Session Number:: 8 Weight Management Height: 4 ft 10 in Weight:: 169 lb BMI: 35.3 Weight Goals Progress:: Progressing (Pt is scheduled to attend nutrition class. Will be encouraged to eat a heart healthy low sodium diet.) Nutrition/Wt Mgmt - 60-Day Visit Session Number:: 8 Weight Management Height: 4 ft 10 in Weight:: 169 lb BMI: 35.3 Nutrition/Wt Mgmt - 90-Day Visit Session Number:: 8 Weight Management Height: 4 ft 10 in Weight:: 169 lb BMI: 35.3 Nutrition/Wt Mgmt - Final Visit Session Number:: 8 Weight Management Height: 4 ft 10 in Weight:: 169 lb BMI: 35.3 Psychosocial - Initial Assess Visit Session Number:: 8 Problems/Goals History of Emotional Disorders: Anxious and Depression Psychosocial Goals: 2. Identifies personal stressors states the strategies for managing, 3. Identifies activities to decrease isolation and/or symptoms of, 4. Improved psychosocial coping skills., 5. Verbalizes coping strategies., 6. Adequate treatment of depression. and 7. Improved Q.O.L. Self-reported stressors: Recent Illness Psychosocial Test Tool Used:: Pulmonary QOL and PHQ-9 Questionnaire Referral to Behavioral Health PS - Interventions: Yes: Attend Stress Management Classes Intervention/Plan: See List Interventions/Plan:: Assess stressors,coping strategies signs of derpression on admission, Instruct/assist pt to develop coping personal stress Mgt strategies, Refer to Behavioral Health if appropriate, Refer to Physician if appropriate, Instruct patient to recognize signs symptoms of depression and Instruct patient to recog Comments:: Pt is scheduled to attend stress management class. Psychosocial - 30-Day Visit Date of Eval: 10/05/24 Session Number:: 8 Problems/Goals History of Emotional Disorders: Anxious and Depression Psychosocial Goals: 2. Identifies personal stressors states the strategies for managing, 3. Identifies activities to decrease isolation and/or symptoms of, 4. Improved psychosocial coping skills., 5. Verbalizes coping strategies., 6. Adequate treatment of depression. and 7. Improved Q.O.L. Self-reported stressors: Recent Illness Psychosocial Test Tool Used:: Pulmonary QOL and PHQ-9 Questionnaire Referral to Behavioral Health PS - Interventions: Yes: Attend Stress Management Classes Plan Interventions/Plan:: Assess stressors,coping strategies signs of derpression on admission, Instruct/assist pt to develop coping personal stress Mgt strategies, Refer to Behavioral Health if appropriate, Refer to Physician if appropriate, Instruct patient to recognize signs symptoms of depression and Instruct patient to recog Comments:: Pt is scheduled to attend stress management class. Psychosocial - 60-Day Visit Session Number:: 8 Problems/Goals History of Emotional Disorders: Anxious and Depression Psychosocial Goals: 2. Identifies personal stressors states the strategies for managing, 3. Identifies activities to decrease isolation and/or symptoms of, 4. Improved psychosocial coping skills., 5. Verbalizes coping strategies., 6. Adequate treatment of depression. and 7. Improved Q.O.L. Self-reported stressors: Recent Illness Psychosocial Test Tool Used:: Pulmonary QOL and PHQ-9 Questionnaire Referral to Behavioral Health PS - Interventions: Yes: Attend Stress Management Classes Plan Interventions/Plan:: Assess stressors,coping strategies signs of derpression on admission, Instruct/assist pt to develop coping personal stress Mgt strategies, Refer to Behavioral Health if appropriate, Refer to Physician if appropriate, Instruct patient to recognize signs symptoms of depression and Instruct patient to recog Comments:: Pt is scheduled to attend stress management class. Psychosocial - 90-Day Visit Session Number:: 8 Problems/Goals History of Emotional Disorders: Anxious and Depression Psychosocial Goals: 2. Identifies personal stressors states the strategies for managing, 3. Identifies activities to decrease isolation and/or sympt (more content not included)... Normal [facility] CT - History AND Physicalon 09-06-2024 CT - History & Physical [facility] Pulmonary Rehab Reports [address] [place] [address] CT - History Physical MR#: [id number] Acct: [id number] Name: CONG SMITH Rep #: [id number] : 1950 74 From: Westley FORD, RVT PCP: Dr. Lidia Lopez MD History of Present Illness General Arrival date:: 09/06/24 Arrival time:: 13:26 Date of Referral:: 08/03/24 Date of Evaluation: 09/06/24 Referring Physician: Dr. Chrissy Moser Primary Diagnosis: RLD, bronchiectasis History of Present Pulmonary Event mMRC Breathless Scale: When is the patient short of breath? Y/N Grade: Description of Breathlessness: 0 I only get breathless with strenuous exercise. 1 I get short of breath when hurrying on level ground or walking up a slight hill. 2 On level ground, I walk slower than people of the same age because of breathless, or have to stop for breath when walking at my own pace. 3 I stop for breath after walking 100 yards or after a few minutes on level ground. 4 I am too breathless to leave the house or I am breathless when dressing. Respiratory Problems: Yes Retain Secretions, Fatigue, Wheezing, Ankle Swelling, Anxiety and Dyspnea with Activity; No Limited Range of Motion, Chest Pain, Able to Speak in Full Sentences, Dizziness, Hoarseness, Panic, Dyspnea at Rest, Dyspnea Lying Down Flat or Cough with Secretions Medications Home Medications magnesium oxide 400 mg (241.3 mg magnesium) tablet 200 mg PO BID supplement 09/08/15 mike Acosta B.a nimalis 10 billion cell capsule 1 ea PO QHS probiotic 05/06/19 esomeprazole magnesium 40 mg capsule,delayed release 40 mg PO DAILY GERD 05/06/19 metoprolol tartrate 25 mg tablet 25 mg PO BID htn 01/08/22 apixaban 5 mg tablet 5 mg PO BID blood thinner 08/23/22 cholecalciferol (vitamin D3) 50 mcg (2,000 unit) tablet 50 mcg PO DAILY supplement 08/23/22 levothyroxine 100 mcg tablet 112 mcg PO DAILY thyroid 08/23/22 prednisone 10 mg tablet 10 mg PO DAILY #52 tabs 08/24/22 flaxseed oil 1,000 mg capsule 1,000 mg PO DAILY 03/25/23 Allergies Allergies Gadolinium-MRI Contrast Medium (CONTRAST) Allergy (Verified 04/18/24 16:57) Hives Iodinated Contrast Media (Iodinated Contrast Media - IV Dye) Allergy (Verified 04/18/24 16:57) Hives iodine Allergy (Verified 04/18/24 16:57) Hives teriparatide (From Forteo) Adverse Reaction (Unknown, Verified 04/18/24 16:57) Other I don't know. The calcium got into my blood. Sleep Disorder Evaluation Hx of Sleep Apnea: No Do you snore loudly (louder than talking or can be heard through closed doors)?: No Do you often feel tired/ fatigued/ sleepy during daytime?: No Has anyone observed you stop breathing during sleep?: No History of Hypertension (for STOP score): Yes STOP Results: Negative Medical Utilization Medical Devices Do you use a peak flow meter at home?: Yes Do you use a spacer device with your inhalers?: No Medical Utilization Number of hospital visits in the last year?: 0 Number of emergency room visits in the last year?: 0 Do you see your physician on a regular schedule?: Yes How often?: every 6 months Advanced Directives Advanced Directives Power of Car Washer: Yes Living Will: Yes Advance Directives Information Provided: Yes Advance Directives on File: Yes DNR Order?:: No Past Medical History Covid-19 Screening Physicial Symptoms Other Clinical Concerns Exposure Risk Pertinent Comorbidities 65 years or older:: Yes Has a chronic lung disease or moderate to severe asthma:: Yes Diabetic:: Yes Medical History Medical History Leukemia Hypokalemia Hypophosphatemia High output ileostomy Right bundle branch block History of syncope Ileostomy in place GERD (gastroesophageal reflux disease) History of DVT (deep vein thrombosis) ( 10/2015) Atrial fibrillation with RVR Essential hypertension Luiaj-clovnp-cfai disease Small bowel obstruction 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 Alcoholism Social History Smoking History Smoking Status: Never smoker Alcohol Use Alcohol Usage: No Occupation Occupation (List type of work in comments):: Retired Hobbies, Recreation, Social Activities Hobbies: Sewing and Reading Recreational Activities: I am able to engage in most, but not all activities Functioning ADL/IADL Current Ability Current Ability: Independent: Self-Care (e.g.,grooming, dressing, bathing), Independent: Ambulat (more content not included)... Normal [facility] CT - Individual Treatment Pl anon 09-06-2024 CT - Individual Treatment Plan [facility] Pulmonary Rehab Reports [address] [place] [address] CT - Individual Treatment Plan MR#: [id number] Acct: [id number] Name: CONG SMITH Rep #: [id number] : 1950 74 From: Westley FORD, RVT PCP: Dr. Lidia Lopez MD General Information2 General Information Admitting Diagnosis: RLD, bronchiectasis Personal Learning Style/Barriers Personal Learning Style:: Audio/Visual and Written Barriers to Learning: None Education/Goals CT Patient Goals: Increase muscle strength: Initial Assessment, Experience less dyspnea: Initial Assessment, Improve energy level: Initial Assessment, Participate in home exercise: Initial Assess ment, Improve the ability to cope with ADLs: Initial Assessment, Improve knowledge of lung disease: Initial Assessment and Improve my quality of life: Initial Assessment Exercise - Initial Assessment Visit Date of Eval: 09/06/24 (initial eval ) Problem/Goals Problems: Deconditioning Goals:: Aerobic exercise 30-60 mins x 12 weeks [36 sessions] Physician Prescribed Exercise Modalities: Treadmill, Rower, Schwinn Airdyne AD-7, SciFit Stepper, [employer] (PT[employer])Fit Pro-II Ergometer and SciFit Lateral Gerentological Physiotherapist Frequency (days/week): 3 Duration (Minutes):: 30-45 Intensity: 60-80% of age predicted maximum heart rate reserve Current METSs:: 2.0 Target HR:: 110 (88-110) Resting Blood Pressure: 120/70 Minimum SpO2 with exercise: 95 Plan Plan and Plan to Review:: Benefits of exercise, Core components of exercise, How to measure dyspnea level, How to monitor dyspnea level, Exercise intensity, Exercise safety guideline, Home exercise guidelines and Gilberto: 3-4/11-13 Home Exercise Mode: Walking Nutrition/Wt Mgmt - Initial Visit Date of Eval: 09/06/24 (initial eval ) Problems/Goals Problems: Overweight Goals: Wt Loss 1-2 lbs per week Weight Management Admit Height:: 4 ft 10 in Admit Weight:: 160 lb Admit BMI:: 33.4 Intervention Intervention/Plan: Instruct on ideal BMI set weight loss goal w/patient, Assist pt to ID incorporate diet changes for weight loss by S9, Refer to Structured Weight Loss program as appropriate, Encourage goal of using 250-300dcal per session for weight loss and Other additional plan/interventions Plan Nutrition Plan: Yes: Review BMI or WC identify target wt strategies for wt control, Yes: Nutrition education class:, Yes: Medication education class [Prednisone]:, Yes: Weight control education class:, Yes: Education re: Need for ongoing weight monitoring, Yes: Food diary: and Yes: Physical activity log: Nutrition/Wt Mgmt - 30-Day Weight Management Height: 4 ft 10 in Weight:: 160 lb BMI: 33.4 Nutrition/Wt Mgmt - 60-Day Weight Management Height: 4 ft 10 in Weight:: 160 lb BMI: 33.4 Nutrition/Wt Mgmt - 90-Day Weight Management Height: 4 ft 10 in Weight:: 160 lb BMI: 33.4 Nutrition/Wt Mgmt - Final Weight Management Height: 4 ft 10 in Weight:: 160 lb BMI: 33.4 Psychosocial - Initial Assess Visit Date of Eval: 09/06/24 (initial eval ) Problems/Goals History of Emotional Disorders: Anxious and Depression Psychosocial Goals: 1. Patient is free from overwhelming symtoms of depression (or anxiety, 2. Identifies personal stressors states the strategies for managing, 3. Identifies activities to decrease isolation and/or symptoms of, 4. Improved psychosocial coping skills., 5. Verbalizes coping strategies., 6. Adequate treatment of depression. and 7. Improved Q.O.L. Self-reported stressors: Recent Illness Psychosocial Test Tool Used:: Pulmonary QOL and PHQ-9 Questionnaire Referred to MD for counseling:: No Referral to Behavioral Health PS - Interventions: Yes: Attend Stress Management Classes Intervention/Plan: See List Interventions/Plan:: Assess stressors,coping strategies signs of derpression on admission, Instruct/assist pt to develop coping personal stress Mgt strategies, Refer to Behavioral Health if appropriate, Refer to Physician if appropriate, Instruct patient to recognize signs symptoms of depression, Instruct patient to recog and Other additional plan/intervention Psychosocial - 30-Day Problems/Goals History of Emotional Disorders: Anxious and Depression Psychosocial Goals: 1. Patient is free from overwhelming symtoms of depression (or anxiety, 2. Identifies personal stressors states the strategies for managing, 3. Identifies activities to decrease isolation and/or symptoms of, 4. Improved psychosocial coping skills., 5. Verbalizes coping strategies., 6. Adequate treatment of depression. and 7. Improved Q.O.L. Self-reported stressors: Recent Illness Psychosocial Test Tool Used:: Pulmonary QOL and PHQ-9 Questionnaire Referred to MD for counseling:: No Referral to Behavioral Health PS - Interventions: Yes: Attend Stress Management Classes Plan Interventions/Plan:: Assess stressors,coping strategies signs of derp (more content not included)... Normal [facility] CBC W Auto Differential pane l (Bld)on 09-05-2024 Basophils (Bld) [#/Vol] 0.03 10*3/uL [facility] Basophils/100 WBC (Bld) 0.4 % C [facility] Differential cell count method Nom (Bld) Auto [facility] Eosinophils (Bld) [#/Vol] 0.40 10*3/uL [facility] Eosinophils/100 WBC (Bld) 5.7 % [facility] Erythrocyte distribution width (RBC) [Ratio] 14.8 % 11.5 - 15.0 % [facility] Hematocrit (Bld) [Volume fraction] 42.4 % 36.0 - 46.0 % [facility] Hemoglobin (Bld) [Mass/Vol] 14.6 g/dL 11.5 - 15.5 g/dL [facility] Immature granulocytes (Bld) [#/Vol] [facility] Immature granulocytes/100 WBC (Bld) 0.0 % [facility] Lymphocytes (Bld) [#/Vol] 3.89 10*3/uL [facility] Lymphocytes/100 WBC (Bld) 55.3 % [facility] MCH (RBC) [Entitic mass] 33.5 pg 26.0 - 34.0 pg [facility] MCHC (RBC) [Mass/Vol] 34.4 g/dL 30.5 - 36.0 g/dL [facility] MCV (RBC) [Entitic vol] 97.2 fL 80.0 - 100.0 fL [facility] Monocytes (Bld) [#/Vol] 0.69 10*3/uL [facility] Monocytes/100 WBC (Bld) 9.8 % [facility] Neutrophils (Bld) [#/Vol] 2.03 10*3/uL [facility] Neutrophils/100 WBC (Bld) 28.8 % [facility] Nucleated RBC (Bld) [#/Vol] [facility] Nucleated RBC/100 WBC (Bld) [Ratio] 0.0 % /100 WBC [facility] Platelet mean volume (Bld) [Entitic vol] 10.0 fL 9.0 - 12.7 fL [facility] Platelets (Bld) [#/Vol] 215 10*3/uL [facility] RBC (Bld) [#/Vol] 4.36 10*6/uL 3.90 - 5.2 0 m/uL [facility] WBC (Bld) [#/Vol] 7.04 10*3/uL [facility] Comprehensive metabolic 2000 panelon 09-05-2024 Albumin [Mass/Vol] 4.2 g/dL 3.9 - 4.9 g/dL [facility] ALP [Catalytic activity/Vol] 109 U/L 34 - 123 U/L [facility] ALT [Catalytic activity/Vol] 28 U/L 7 - 38 U/L [facility] Anion gap [Moles/Vol] 12 mmol/L 8 - 15 mmol/L [facility] AST [Catalytic activity/Vol] 27 U/L 13 - 35 U/L [facility] Bilirubin [Mass/Vol] 0.3 mg/dL 0.2 - 1 .3 mg/dL [facility] Calcium [Mass/Vol] 9.3 mg/dL 8.5 - 10. 2 mg/dL [facility] Chloride [Moles/Vol] 103 mmol/L 98 - 10 7 mmol/L [facility] CO2 [Moles/Vol] 23 mmol/L 22 - 30 mmol/L [facility] Creatinine [Mass/Vol] 0.81 mg/dL 0.58 - 0.96 mg/dL [facility] GFR/1.73 sq M.predicted among non-blacks MDRD (S/P/Bld) [Vol rate/Area] 77 mL/min/{1.73_m2} - PINF [facility] Comment on above: Estimated Glomerular Filtration Rate (eGFR) is calculated using the 2020 CKD-EPI creatinine equation. This equation utilizes serum creatinine, sex, and age as parameters. The creatinine assay has traceable calibration to isotope dilution-mass spectrometry. Refer to KDIGO guidelines for clinical interpretation. In patients with unstable renal function, e.g. those with acute kidney injury, the eGFR may not accurately reflect actual GFR. Glucose [Mass/Vol] 97 mg/dL 74 - 99 mg/dL [facility] Comment on above: The [place] Diab[employer] s Association (ADA) provides guidance for cutoff values for fasting glucose and random glucose. The ADA defines fasting as no caloric intake for at least 8 hours. Fasting plasma glucose results between 100 to 125 mg/dL indicate increased risk for diabetes (prediabetes). Fasting plasma glucose results greater than or equal to 126 mg/dL meet the criteria for diagnosis of diabetes. In the absence of unequivocal hyperglycemia, results should be confirmed by repeat testing. In a patient with classic symptoms of hyperglycemia or hyperglycemic crisis, random plasma glucose results greater than or equal to 200 mg/dL meet the criteria for diagnosis of diabetes. Reference: Standards of Medical Care in Diabetes 2016, [place] Diabetes [employer]. Diabetes Care. 2016.39(Suppl 1). Interpretation and review of laboratory results Abnormal [facility] Potassium [Moles/Vol] 3.9 mmol/L 3.7 - 5.1 mmol/L [facility] Protein [Mass/Vol] 6.9 g/dL 6.3 - 8.0 g/dL [facility] Sodium [Moles/Vol] 138 mmol/L 136 - 144 mmol/L [facility] Urea nitrogen [Mass/Vol] 29 mg/dL High 7 - 21 mg/dL [facility] MAGNESIUMOrdered By: iLa Collazo on 09-05-2024 Magnesium [Mass/Vol] 2.0 mg/dL 1.7 - 2 .3 mg/dL [facility] Magnesium [Mass/Vol]Ordered By: Martinez Collazo on 09-05-2024 Interpretation and review of laboratory results Normal [facility] No Panel Informationon 09-05 Interpretation and review of laboratory results Normal [facility] No Panel InformationOrdered By: Martinez Collazo on 09-05-2024 [facility] T3 FREE BLDon 09-05-2024 Free T3 [Mass/Vol] 2.9 pg/mL 2.3 - 4.1 pg/mL [facility] T4 FREE/FREE THYROXon 2023 Free T4 [Mass/Vol] 1.5 ng/dL 0.9 - 1.7 ng/dL [facility] TSH BLDon 09-05-2024 TSH Qn 3.270 m[IU]/L [facility] VITAMIN B12on 09-05-2024 Cobalamin (Vitamin B12) [Mass/Vol] 982 pg/mL 232 - 1245 pg/mL [facility] No Panel Informationon 07-21 [facility] [address] [place] [address] Test Date: 2024-07-21 Pat Name: CONG SMITH Department: Room: 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 Start of test and EOFE criteria met. Current ATS/ERS acceptability and repeatability standards for lung volumes met. DLCO - The two largest DLCO values were repeatable. IMPRESSION: Spirometry indicates no obstruction. The reduced FVC could indicate restriction, recommend lung volumes for definitive determination. Decrease in TLC indicates restriction. The diffusion capacity (uncorrected for hemoglobin) is normal. Electronically Signed On 07-21-2024 16:55:50 EDT by Chrissy Moser MD ID: [id number] Name: CONG SMITH Race: White Ht: 58.00 in Wt: 160.00 lbs Age: 74 Gender: Female : 1950 Dx: Bronchiectasis_ Smoking Hx: Non-smoker Doctor: CHRISSY MOSER Test Date: 07/21/2024 Site: Tech: Daniele Tori PRE-BRONCH POST-BRONCH Pre LLN Pred ULN %Pred Post %Pred %Chg SPIROMETRY FVC (L) 1.48 1.45 2.07 2.71 71 FEV1 (L) 1.22 1.13 1.64 2.11 74 FEV1/FVC 0.82 0.67 0.80 0.91 103 PEF L/s (L/sec) 4.06 3.09 4.50 5.90 90 FEF50 (L/sec) 1.86 0.92 2.53 4.14 73 FIF50 (L/sec) 1.81 FEF50/FIF50 1.03 90-100 FIVC (L) 1.46 PQN39-09 (L/sec) 1.52 0.68 1.53 2.75 99 Time (sec) 4.82 FET PEF (sec) 0.09 OVI (L) 0.05 Vol Extrap % (%) 4 LUNG VOLUMES TGV (L) 1.74 1.49 2.35 3.21 74 ERV (L) 0.17 0.69 24 RV (Pleth) (L) 1.66 1.33 1.96 2.58 84 SVC (L) 1.50 1.45 2.07 2.71 72 IC (L) 1.33 1.38 96 TLC (Pleth) (L) 3.09 3.27 4.15 5.04 74 RV/TLC (Pleth) (%) 54 36 45 54 119 LUNG DIFFUSION DLCOunc (ml/min/mmHg) 12.98 11.53 17.70 23.86 73 VA (L) 2.83 2.98 4.08 5.18 69 DLunc/VA (ml/min/mmHg/L) 4.59 3.19 4.51 5.83 101 BHT (sec) 12.16 IVC (L) 1.43 Comments: Current ATS/ERS acceptability and repeatability standards for spirometry met. Start of test and EOFE criteria met. Current ATS/ERS acceptability and repeatability standards for lung volumes met. DLCO - The two largest DLCO values were repeatable. PULMONARY FUNCTION LAB [facility] SPIROMETRY WITH DILATOR IF O BSTRUCTEDon 07-21-2024 DLCO (ml/min/mmHg) 12.98 ml/min/mmHg [facility] DLCO LLN (ml/min/mmHg) 11.53 ml/min/mmHg [facility] DLCO PREDICTED (ml/min/mmHg) 17.70 ml/min/mmHg [facility] DLCO ULN (ml/min/mmHg) 23.86 ml/min/mmHg [facility] DLCO/VA (ml/min/mmHg/L) 4.59 ml/m in/mmHg /L [facility] DLCO/VA PREDICTED (ml/min/mmHg/L) 4.51 ml/min/mmHg /L [facility] DLCOcor PREDICTED (ml/min/mmHg) 17.70 ml/min/mmHg [facility] ERV BOX (L) 0.17 L [facility] ERV PREDICTED (L) 0.69 L/S [facility] FEF25% PRE (L/S) 3.28 L/S [facility] EXG02-41% LLN (L/S) 0.68 L/S [facility] GUT61-89% PRE (L/S) 1.52 L/S [facility] ILC57-26% PREDICTED (L/S) 1.53 L/S [facility] FEF75% LLN (L/S) 0.12 L/S [facility] FEF75% PRE (L/S0 0.50 L/S [facility] FEF75% PREDICTED (L/S) 0.34 L/S [facility] FEF75% ULN (L/S) 0.93 L/S [facility] FET PRE (S) 4.82 S [facility] FEV1 LLN (L) 1.13 L [facility] FEV1 PRE (L) 1.22 L [facility] FEV1 PREDICTED (L) 1.64 L [facility] FEV1 ULN (L) 2.11 L [facility] FEV1/FVC LLN (%) 67 % [facility] FEV1/FVC PRE (%) 82 % [facility] FEV1/FVC PREDICTED (%) 80 % [facility] FRC Box (L) 1.74 L [facility] FVC LLN (L) 1.45 L [facility] FVC PRE (L) 1.48 L [facility] FVC PREDICTED (L) 2.07 L [facility] FVC ULN (L) 2.71 L [facility] IC BOX (L) 1.33 L [facility] IC PREDICTED (L) 1.38 L/S [facility] PEF LLN (L/S) 3.09 L/S [facility] PEF PRE (L/S) 4.06 L/S [facility] PEF ULN (L/S) 5.90 L/S [facility] RV Box (L) 1.66 L [facility] RV Box PREDICTED (L) 1.96 L [facility] RV/TLC Box (%) 54 % [facility] RV/TLC Box PREDICTED (%) 45 % [facility] SVC LLN (L) 1.45 L/S [facility] SVC PREDICTED (L) 2.07 L/S [facility] SVC ULN (L) 2.71 L/S [facility] TLC Box (L) 3.09 L [facility] TLC Box PREDICTED (L) 4.15 L [facility] (L) 2.83 L [facility] VA PREDICTED (L) 4.08 L [facility] VC (L) BOX 1.50 L [facility] MG Breast Screeningon 2023 IMPRESSION: There is no mammographic evidence of malignancy in either breast. Routine follow-up mammogram in 1 year is recommended. BI-RADS Category 1: Negative RISK: Based on the Tyrer-Cuzick (TC) risk assessment model, this patient has a 3.1% lifetime risk of developing breast cancer, meaning they are at average risk for developing breast cancer. However, this is only an estimate based on available history provided on the patient's questionnaire. We encourage all patients talk with their providers about these results, further recommendations for managing breast health, and appropriate supplemental screening options if the patient has dense breast tissue. Interpreting Radiologist: Ruth Moon M.D. Machine Silk Screen Printer: JOHN Transcribe Date/Time: Jun 21 2024 9:20A Dictated by: RUTH MOON MD This examination was interpreted and the report reviewed and electronically signed by: RUTH MOON MD on Jun 21 2024 12:49PM [facility] DIVISION OF RADIOLOGY * * *Final Report* * * DATE OF EXAM: Jun 21 2024 9:36AM [facility] 0581 - [facility] SCREENING / PROCEDURE REASON: multiple diagnoses * * * * Physician Interpretation * * * * RESULT: [address] [place] [address] HISTORY: Patient is 74 years old and is seen for screening and is asymptomatic in both breasts. The patient has a history of leukemia. COMPARISON STUDIES: The present examination has been compared to prior imaging studies dated 05/09/2020 (mammogram), 05/19/2021 (mammogram), 06/17/2022 (mammogram) and 06/18/2023 (mammogram). MAMMOGRAM TECHNIQUE: The study was acquired using full field digital technology and interpreted from soft copy. Digital Breast Tomosynthesis (DBT) images were obtained and used to assist in the interpretation of this examination. Computer-aided detection was utilized by the radiologist in the interpretation of this examination. MAMMOGRAM FINDINGS: There are scattered areas of fibroglandular density. No suspicious masses, calcifications or other abnormalities are seen in either breast. There are no significant changes from the prior study. DIVISION OF RADIOLOGY Provider, [facility] - 06/21/2024 * * *Final Report* * * DATE OF EXAM: Jun 21 2024 9:36AM [facility] 05[facility] - [facility] SCREENING / PROCEDURE REASON: multiple diagnoses * * * * Physician Interpretation * * * * RESULT: [facility] [address] [place] [address] HISTORY: Patient is 74 years old and is seen for screening and is asymptomatic in both breasts. The patient has a history of leukemia. COMPARISON STUDIES: The present examination has been compared to prior imaging studies dated 05/09/2020 (mammogram), 05/19/2021 (mammogram), 06/17/2022 (mammogram) and 06/18/2023 (mammogram). MAMMOGRAM TECHNIQUE: The study was acquired using full field digital technology and interpreted from soft copy. Digital Breast Tomosynthesis (DBT) images were obtained and used to assist in the interpretation of this examination. Computer-aided detection was utilized by the radiologist in the interpretation of this examination. MAMMOGRAM FINDINGS: There are scattered areas of fibroglandular density. No suspicious masses, calcifications or other abnormalities are seen in either breast. There are no significant changes from the prior study. IMPRESSION IMPRESSION: There is no mammographic evidence of malignancy in either breast. Routine follow-up mammogram in 1 year is recommended. BI-RADS Category 1: Negative RISK: Based on the Tyrer-Cuzick (TC) risk assessment model, this patient has a 3.1% lifetime risk of developing breast cancer, meaning they are at average risk for developing breast cancer. However, this is only an estimate based on available history provided on the patient's questionnaire. We encourage all patients talk with their providers about these results, further recommendations for managing breast health, and appropriate supplemental screening options if the patient has dense breast tissue. Interpreting Radiologist: Ruth Moon M.D. Machine Silk Screen Printer: JOHN Transcribe Date/Time: Jun 21 2024 9:20A Dictated by: RUTH MOON MD This examination was interpreted and the report reviewed and electronically signed by: RUTH MOON MD on Jun 21 2024 12:49PM EST [facility] Radiology Study [facility] (narrative) [facility] MG Breast ScreeningOrdered B y: [facility] Provider on 06-21-2024 [facility] CBC W Auto Differential pane l (Bld)on 06-01-2024 Basophils (Bld) [#/Vol] 0.05 10*3/uL [facility] Basophils/100 WBC (Bld) 0.8 % C [facility] Differential cell count method Nom (Bld) Auto [facility] Eosinophils (Bld) [#/Vol] 0.29 10*3/uL [facility] Eosinophils/100 WBC (Bld) 4.5 % [facility] Erythrocyte distribution width (RBC) [Ratio] 14.3 % 11.5 - 15.0 % [facility] Hematocrit (Bld) [Volume fraction] 42.9 % 36.0 - 46.0 % [facility] Hemoglobin (Bld) [Mass/Vol] 14.6 g/dL 11.5 - 15.5 g/dL [facility] Immature granulocytes (Bld) [#/Vol] [facility] Immature granulocytes/100 WBC (Bld) 0.2 % [facility] Lymphocytes (Bld) [#/Vol] 3.14 10*3/uL [facility] Lymphocytes/100 WBC (Bld) 48.7 % [facility] MCH (RBC) [Entitic mass] 34.0 pg 26.0 - 34.0 pg [facility] MCHC (RBC) [Mass/Vol] 34.0 g/dL 30.5 - 36.0 g/dL [facility] MCV (RBC) [Entitic vol] 99.8 fL 80.0 - 100.0 fL [facility] Monocytes (Bld) [#/Vol] 0.78 10*3/uL [facility] Monocytes/100 WBC (Bld) 12.1 % [facility] Neutrophils (Bld) [#/Vol] 2.18 10*3/uL [facility] Neutrophils/100 WBC (Bld) 33.7 % [facility] Nucleated RBC (Bld) [#/Vol] [facility] Nucleated RBC/100 WBC (Bld) [Ratio] 0.0 % /100 WBC [facility] Platelet mean volume (Bld) [Entitic vol] 10.7 fL 9.0 - 12.7 fL [facility] Platelets (Bld) [#/Vol] 224 10*3/uL [facility] [facility] RBC (Bld) [#/Vol] 4.30 10*6/uL 3.90 - 5.2 0 m/uL [facility] WBC (Bld) [#/Vol] 6.45 10*3/uL [facility] Comprehensive metabolic 2000 panelon 06-01-2024 Albumin [Mass/Vol] 3.9 g/dL 3.9 - 4.9 g/dL [facility] ALP [Catalytic activity/Vol] 102 U/L 34 - 123 U/L [facility] ALT [Catalytic activity/Vol] 24 U/L 7 - 38 U/L [facility] Anion gap [Moles/Vol] 11 mmol/L 8 - 15 mmol/L [facility] AST [Catalytic activity/Vol] 28 U/L 13 - 35 U/L [facility] Bilirubin [Mass/Vol] 0.3 mg/dL 0.2 - 1 .3 mg/dL [facility] Calcium [Mass/Vol] 9.2 mg/dL 8.5 - 10. 2 mg/dL [facility] Chloride [Moles/Vol] 105 mmol/L 98 - 10 7 mmol/L [facility] CO2 [Moles/Vol] 22 mmol/L 22 - 30 mmol/L [facility] Creatinine [Mass/Vol] 0.79 mg/dL 0.58 - 0.96 mg/dL [facility] GFR/1.73 sq M.predicted among non-blacks MDRD (S/P/Bld) [Vol rate/Area] 79 mL/min/{1.73_m2} - PINF [facility] Comment on above: Estimated Glomerular Filtration Rate (eGFR) is calculated using the 2020 CKD-EPI creatinine equation. This equation utilizes serum creatinine, sex, and age as parameters. The creatinine assay has traceable calibration to isotope dilution-mass spectrometry. Refer to KDIGO guidelines for clinical interpretation. In patients with unstable renal function, e.g. those with acute kidney injury, the eGFR may not accurately reflect actual GFR. Glucose [Mass/Vol] 104 mg/dL High 74 - 99 mg/dL [facility] Comment on above: The [place] Di[employer] Association (ADA) provides guidance for cutoff values for fasting glucose and random glucose. The ADA defines fasting as no caloric intake for at least 8 hours. Fasting plasma glucose results between 100 to 125 mg/dL indicate increased risk for diabetes (prediabetes). Fasting plasma glucose results greater than or equal to 126 mg/dL meet the criteria for diagnosis of diabetes. In the absence of unequivocal hyperglycemia, results should be confirmed by repeat testing. In a patient with classic symptoms of hyperglycemia or hyperglycemic crisis, random plasma glucose results greater than or equal to 200 mg/dL meet the criteria for diagnosis of diabetes. Reference: Standards of Medical Care in Diabetes 2016, [place] [employer]. Diabetes Care. 2016.39(Suppl 1). Interpretation and review of laboratory results Abnormal [facility] Potassium [Moles/Vol] 4.1 mmol/L 3.7 - 5.1 mmol/L [facility] Protein [Mass/Vol] 6.7 g/dL 6.3 - 8.0 g/dL [facility] Sodium [Moles/Vol] 138 mmol/L 136 - 144 mmol/L [facility] Urea nitrogen [Mass/Vol] 26 mg/dL High 7 - 21 mg/dL [facility] MAGNESIUMon 06-01-2024 Magnesium [Mass/Vol] 1.9 mg/dL 1.7 - 2 .3 mg/dL [facility] Magnesium [Mass/Vol]on 06-01 Interpretation and review of laboratory results Normal [facility] No Panel Informationon 06-01 [facility] DXA Femur [T-score] Bone den sityon 05-29-2024 * * *Final Report* * * DATE OF EXAM: May 29 2024 10:27AM [id number] [id number] - BD DXA TRABECLR BONE SCORE (TBS) / PROCEDURE REASON: multiple diagnoses * * * * Physician Interpretation * * * * EXAMINATION: DXA BONE DENSITOMETRY BD DXA - AXIAL SKELETON, BD DXA TRABECLR BONE SCORE (TBS) PATIENT DEMOGRAPHICS: Age: 74 years, Gender: Female SCANNER INFORMATION: DXA Model: AMDL - [employer] C [id number] Date Scanned: 05/29/2024 10:27 AM CLINICAL HISTORY: DIAGNOSTIC Screening for osteoporosis Asymptomatic menopause . RISK FACTORS FOR OSTEOPOROSIS AND ASSOCIATED FRACTURES REPORTED BY THIS PATIENT: Please refer to Bone Health Questionnaire in the EMR CURRENT THERAPY: Please refer to Bone Health Questionnaire in the EMR TECHNICAL LIMITATIONS: left hip fracture/surgery RESULTS: Lumbar spine (L1, L2, L3, L4): 0.759 g/cm2, T-score -2.6, Z-score -0.3 Lumbar spine: 2020: 0.762 g/cm2 No statistically significant change Right Femoral Neck: 0.515 g/cm2, T-score -3.0, Z-score -1.0 Right Femoral Neck: 2020: 0.460 g/cm2 Statistically significant increase Right Total Hip: 0.663 g/cm2, T-score -2.3, Z-score -0.6 Right Total Hip: 2020: 0.617 g/cm2 Statistically significant increase CHANGE IS STATISTICALLY SIGNIFICANT IN THE SPINE OR HIP IF GREATER THAN OR EQUAL TO 0.04 g/cm2 VERTEBRAL FRACTURE ASSESSMENT Not performed. TRABECULAR BONE ASSESSMENT TBS score: 1.129 Bone micro-architecture: Degraded (< or = 1.230) DIVISION OF RADIOLOGY Provider, [facility] - 05/29/2024 * * *Final Report* * * DATE OF EXAM: May 29 2024 10:27AM WRB [id number] - BD DXA TRABECLR BONE SCORE (TBS) / PROCEDURE REASON: multiple diagnoses * * * * Physician Interpretation * * * * EXAMINATION: DXA BONE DENSITOMETRY BD DXA - AXIAL SKELETON, BD DXA TRABECLR BONE SCORE (TBS) PATIENT DEMOGRAPHICS: Age: 74 years, Gender: Female SCANNER INFORMATION: DXA Model: AMDL - [employer] C [id number] Date Scanned: 05/29/2024 10:27 AM CLINICAL HISTORY: DIAGNOSTIC Screening for osteoporosis Asymptomatic menopause . RISK FACTORS FOR OSTEOPOROSIS AND ASSOCIATED FRACTURES REPORTED BY THIS PATIENT: Please refer to Bone Health Questionnaire in the EMR CURRENT THERAPY: Please refer to Bone Health Questionnaire in the EMR TECHNICAL LIMITATIONS: left hip fracture/surgery RESULTS: Lumbar spine (L1, L2, L3, L4): 0.759 g/cm2, T-score -2.6, Z-score -0.3 Lumbar spine: 2020: 0.762 g/cm2 No statistically significant change Right Femoral Neck: 0.515 g/cm2, T-score -3.0, Z-score -1.0 Right Femoral Neck: 2020: 0.460 g/cm2 Statistically significant increase Right Total Hip: 0.663 g/cm2, T-score -2.3, Z-score -0.6 Right Total Hip: 2020: 0.617 g/cm2 Statistically significant increase CHANGE IS STATISTICALLY SIGNIFICANT IN THE SPINE OR HIP IF GREATER THAN OR EQUAL TO 0.04 g/cm2 VERTEBRAL FRACTURE ASSESSMENT Not performed. TRABECULAR BONE ASSESSMENT TBS score: 1.129 Bone micro-architecture: Degraded (< or = 1.230) IMPRESSION IMPRESSION: THE LOWEST T-SCORE IS -3.0 IN THE RIGHT HIP 1) DIAGNOSIS (based on BMD alone): OSTEOPOROSIS Caution: Medical conditions other than osteoporosis may cause low bone density, such as osteomalacia or renal osteodystrophy. Clinical correlation is necessary. 2) FRACTURE RISK (Based on TBS adjusted FRAX): 10-year absolute fracture risk: - major osteoporotic fracture = 30 % - hip fracture = 12 % - A diagnosis of Osteoporosis, a 10 year probability of hip fracture greater than or equal to 3% or a 10 year probability of any major osteoporosis-related fracture greater than or equal to 20% should be considered for treatment. - DXA scanner generated FRAX calculations may slightly differ from online FRAX calculations due to differences in software versions. - All recommendations and calculations are to be considered as guidelines and should not replace sound clinical judgement - Caution: Fracture risk may be increased independent of BMD in patients with corticosteroid use, age greater than 65 years, or a history of prior fragility fracture. RECOMMENDATIONS: Follow-up in 2 years or as clinically indicated. Patients that are taking corticosteroids, are transplant recipients or have hyperparathyroidism should have annual follow-up. Follow-up scans should always be done on the same machine for accurate comparison. FOR MORE INFORMATION ABOUT DIAGNOSIS AND TREATMENT: [facility] for Osteoporosis and Metabolic Bone Disease:? [email or web address].org/arthritis/o steo National Osteoporosis Foundation:? www.nof.org International Society of Clinical Densitometry www.iscd.org Machine Silk Screen Printer: [email or web address] Transcribe Date/Time: May 29 2024 10:32A Dictated by : AMITA DORANTES MD This examination was interpreted and the report reviewed and electronically signed by: AMITA DORANTES MD on May 29 2024 10:34AM [facility] DXA Skeletal system.axial Vi ews for bone densityon 05-29-2024 * * *Final Report* * * DATE OF EXAM: May 29 2024 10:27AM [facility] 0804 - BD DXA - AXIAL SKELETON / PROCEDURE REASON: multiple diagnoses * * * * Physician Interpretation * * * * EXAMINATION: DXA BONE DENSITOMETRY BD DXA - AXIAL SKELETON, BD DXA TRABECLR BONE SCORE (TBS) PATIENT DEMOGRAPHICS: Age: 74 years, Gender: Female SCANNER INFORMATION: DXA Model: AMDL - [employer] C [id number] Date Scanned: 05/29/2024 10:27 AM CLINICAL HISTORY: DIAGNOSTIC Screening for osteoporosis Asymptomatic menopause . RISK FACTORS FOR OSTEOPOROSIS AND ASSOCIATED FRACTURES REPORTED BY THIS PATIENT: Please refer to Bone Health Questionnaire in the EMR CURRENT THERAPY: Please refer to Bone Health Questionnaire in the EMR TECHNICAL LIMITATIONS: left hip fracture/surgery RESULTS: Lumbar spine (L1, L2, L3, L4): 0.759 g/cm2, T-score -2.6, Z-score -0.3 Lumbar spine: 2020: 0.762 g/cm2 No statistically significant change Right Femoral Neck: 0.515 g/cm2, T-score -3.0, Z-score -1.0 Right Femoral Neck: 2020: 0.460 g/cm2 Statistically significant increase Right Total Hip: 0.663 g/cm2, T-score -2.3, Z-score -0.6 Right Total Hip: 2020: 0.617 g/cm2 Statistically significant increase CHANGE IS STATISTICALLY SIGNIFICANT IN THE SPINE OR HIP IF GREATER THAN OR EQUAL TO 0.04 g/cm2 VERTEBRAL FRACTURE ASSESSMENT Not performed. TRABECULAR BONE ASSESSMENT TBS score: 1.129 Bone micro-architecture: Degraded (< or = 1.230) DIVISION OF RADIOLOGY Provider, [facility] - 05/29/2024 * * *Final Report* * * DATE OF EXAM: May 29 2024 10:27AM [facility] 0804 - DXA - AXIAL SKELETON / PROCEDURE REASON: multiple diagnoses * * * * Physician Interpretation * * * * EXAMINATION: DXA BONE DENSITOMETRY BD DXA - AXIAL SKELETON, BD DXA TRABECLR BONE SCORE (TBS) PATIENT DEMOGRAPHICS: Age: 74 years, Gender: Female SCANNER INFORMATION: DXA Model: AMDL - [employer] C [id number] Date Scanned: 05/29/2024 10:27 AM CLINICAL HISTORY: DIAGNOSTIC Screening for osteoporosis Asymptomatic menopause . RISK FACTORS FOR OSTEOPOROSIS AND ASSOCIATED FRACTURES REPORTED BY THIS PATIENT: Please refer to Bone Health Questionnaire in the EMR CURRENT THERAPY: Please refer to Bone Health Questionnaire in the EMR TECHNICAL LIMITATIONS: left hip fracture/surgery RESULTS: Lumbar spine (L1, L2, L3, L4): 0.759 g/cm2, T-score -2.6, Z-score -0.3 Lumbar spine: 2020: 0.762 g/cm2 No statistically significant change Right Femoral Neck: 0.515 g/cm2, T-score -3.0, Z-score -1.0 Right Femoral Neck: 2020: 0.460 g/cm2 Statistically significant increase Right Total Hip: 0.663 g/cm2, T-score -2.3, Z-score -0.6 Right Total Hip: 2020: 0.617 g/cm2 Statistically significant increase CHANGE IS STATISTICALLY SIGNIFICANT IN THE SPINE OR HIP IF GREATER THAN OR EQUAL TO 0.04 g/cm2 VERTEBRAL FRACTURE ASSESSMENT Not performed. TRABECULAR BONE ASSESSMENT TBS score: 1.129 Bone micro-architecture: Degraded (< or = 1.230) IMPRESSION IMPRESSION: THE LOWEST T-SCORE IS -3.0 IN THE RIGHT HIP 1) DIAGNOSIS (based on BMD alone): OSTEOPOROSIS Caution: Medical conditions other than osteoporosis may cause low bone density, such as osteomalacia or renal osteodystrophy. Clinical correlation is necessary. 2) FRACTURE RISK (Based on TBS adjusted FRAX): 10-year absolute fracture risk: - major osteoporotic fracture = 30 % - hip fracture = 12 % - A diagnosis of Osteoporosis, a 10 year probability of hip fracture greater than or equal to 3% or a 10 year probability of any major osteoporosis-related fracture greater than or equal to 20% should be considered for treatment. - DXA scanner generated FRAX calculations may slightly differ from online FRAX calculations due to differences in software versions. - All recommendations and calculations are to be considered as guidelines and should not replace sound clinical judgement - Caution: Fracture risk may be increased independent of BMD in patients with corticosteroid use, age greater than 65 years, or a history of prior fragility fracture. RECOMMENDATIONS: Follow-up in 2 years or as clinically indicated. Patients that are taking corticosteroids, are transplant recipients or have hyperparathyroidism should have annual follow-up. Follow-up scans should always be done on the same machine for accurate comparison. FOR MORE INFORMATION ABOUT DIAGNOSIS AND TREATMENT: [facility] for Osteoporosis and Metabolic Bone Disease:? www.ccf.org/arthritis/o steo National Osteoporosis Foundation:? www.nof.org International Society of Clinical Densitometry www.iscd.org Machine Silk Screen Printer: [email or web address] Transcribe Date/Time: May 29 2024 10:32A Dictated by : AMITA DORANTES MD This examination was interpreted and the report reviewed and electronically signed by: AMITA DORANTES MD on May 29 2024 10:34AM EST [facility] No Panel InformationOrdered By: [facility] Provider on 05-29-2024 LOWEST T-SCORE -3.0 [facility] No Panel Informationon 09-09 -2024 IMPRESSION: THE LOWEST T-SCORE IS -3.0 IN THE RIGHT HIP 1) DIAGNOSIS (based on BMD alone): OSTEOPOROSIS Caution: Medical conditions other than osteoporosis may cause low bone density, such as osteomalacia or renal osteodystrophy. Clinical correlation is necessary. 2) FRACTURE RISK (Based on TBS adjusted FRAX): 10-year absolute fracture risk: - major osteoporotic fracture = 30 % - hip fracture = 12 % - A diagnosis of Osteoporosis, a 10 year probability of hip fracture greater than or equal to 3% or a 10 year probability of any major osteoporosis-related fracture greater than or equal to 20% should be considered for treatment. - DXA scanner generated FRAX calculations may slightly differ from online FRAX calculations due to differences in software versions. - All recommendations and calculations are to be considered as guidelines and should not replace sound clinical judgement - Caution: Fracture risk may be increased independent of BMD in patients with corticosteroid use, age greater than 65 years, or a history of prior fragility fracture. RECOMMENDATIONS: Follow-up in 2 years or as clinically indicated. Patients that are taking corticosteroids, are transplant recipients or have hyperparathyroidism should have annual follow-up. Follow-up scans should always be done on the same machine for accurate comparison. FOR MORE INFORMATION ABOUT DIAGNOSIS AND TREATMENT: [facility] for Osteoporosis and Metabolic Bone Disease:? www.ccf.org/arthritis/o steo National Osteoporosis Foundation:? www.nof.org International Society of Clinical Densitometry www.iscd.org Machine Silk Screen Printer: [email or web address] Transcribe Date/Time: May 29 2024 10:32A Dictated by : AMITA DORANTES MD This examination was interpreted and the report reviewed and electronically signed by: AMITA DORANTES MD on May 29 2024 10:34AM [facility] DIVISION OF RADIOLOGY Radiology Study observation (narrative) Cedric thomas [facility] Brain/Head without Contrasto n 04-18-2024 Brain/Head without Contrast [facility] Imaging Services [facility] [place], [place] [id number] Brain/Head without Contrast MR#: [id number] Acct: [id number] Name: CONG SMITH Rep #: [id number] : 1950 F 74 From: Tristan tovar MD PCP: Dr. Lidia Lopez MD Status: PRE ER Study: Brain/Head without Contrast Date of Exam: 03/22 Exam# [id number] Ordering [place]: [place] [id number] STUDY: CT BRAIN WITHOUT CONTRAST REASON FOR EXAM: Female, 74 years old. Head trauma on Eliquis RADIATION DOSAGE (If Supplied By Facility): CTDIvol = ( 44.99 ) mGy, DLP = ( 796.11 ) mGycm TECHNIQUE: Transaxial CT imaging of the brain was performed without administration of intravenous contrast material. Individualized dose optimization techniques were used for this CT. COMPARISON: No relevant priors. FINDINGS: Normal soft tissue structures. Normal calvarium. Normal size ventricles and extra-axial spaces for the patient''s age. Normal white matter tracts of the cerebral hemispheres. Normal basal ganglia and thalami. Normal brainstem. Normal cerebellum. There is no intracranial hemorrhage. There are no findings of an acute ischemic infarction. Normal visualized paranasal sinuses. CT/Brain/Head without Contrast IMPRESSION: Normal unenhanced CT scan of the brain. Electronically Signed: Tristan Brady MD at 17:44 EDT , CC: Dr. Lidia Lopez MD; Dr. Jitendra Charlton MD Machine Silk Screen Printer: Signed Normal [facility] Emergency Department Summary on 04-18-2024 Emergency Department Summary [facility] Medical Records Department [address] [place] [address] Emergency Department Summary 04/18/24 MR#: [id number] Acct: [id number] Name: CONG SMITH Rep #: [id number] : 1950 [id number] From: Jitendra Charlton MD PCP: Dr. Lidia Lopez MD Status:REG ER Location: ED HPI History of Present Illness Chief Complaint: Head Injury Detail of Chief Complaint: Closed head injury on anticoagulant Informant: patient Onset/Context/Timing Onset: Today and Hours Mechanism/Context: Blunt Injury and Fall Location of pain/injuries: - (Occiput) Quality of Pain: Dull and Aching Location: Occiput Maximum Severity: Severe Worsened by: Palpation Relieved by: Nothing Associated Symptoms Associated Symptoms: Negative for Parasthesias, Weakness, Loss of function, Inability to ambulate, Loss of consciousness or Amnesia Narrative Narrative: Patient is a 74-year-old woman. She has history of atrial fibrillation, DVT with recurrent DVT, AML who is on Eliquis that presents after mechanical fall. She fell backwards hitting her head going down steps. She denies loss of conscious. She would not days. She does complain of head pain. Denies ringing in ears or decreased hearing. She does have hearing aids. Denies trouble speech or swallowing. 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 lactis 10 1 ea PO QHS probiotic 05/06/19 08/22/22 History billion cell capsule esomeprazole magnesium 40 mg 40 mg PO DAILY GERD 05/06/19 08/23/22 History capsule,delayed release metoprolol tartrate 25 mg tablet 25 mg PO BID htn 01/08/22 08/23/22 History apixaban 5 mg tablet 5 mg PO BID blood thinner 08/23/22 08/23/22 History cholecalciferol (vitamin D3) 50 50 mcg PO DAILY supplement 08/23/22 08/23/22 History mcg (2,000 unit) tablet levothyroxine 100 mcg tablet 112 mcg PO DAILY thyroid 08/23/22 08/23/22 History prednisone 10 mg tablet 10 mg PO DAILY #52 tabs 08/24/22 Unknown Rx flaxseed oil 1,000 mg capsule 1,000 mg PO DAILY 03/25/23 Unknown History Allergy/AdvReac Type Severity Reaction Status Date / Time Gadolinium-MRI Contrast Allergy Hives Verified 04/18/24 16:57 Medium (CONTRAST) Iodinated Contrast Media Allergy Hives Verified 04/18/24 16:57 (Iodinated Contrast Media - IV Dye) iodine Allergy Hives Verified 04/18/24 16:57 teriparatide (From Forteo) AdvReac Unknown Other Verified 04/18/24 16:57 Family History Mother Diabetes Heart disease Father Cancer Liver CA, age 84. Alcoholism Surgical History History of bone marrow transplant H/O ileostomy History of total colectomy Bone marrow transplant status Social History household members: spouse Smoking Status: Never smoker alcohol intake: never substance use type: does not use ROS ROS ED Constitutional Constitutional ED: Denies chills, fever(s) or subjective Eyes Eyes: Denies blurry vision or change in vision ENT ENT ED: Denies ear pain, rhinorrhea or sore throat Cardiovascular Cardiovascular: Denies chest pain or palpitations Respiratory/Chest Respiratory/Chest: Denies cough, dyspnea or dyspnea on exertion Gastrointestinal Gastrointestinal: Denies nausea or vomiting Genitourinary Genitourinary ED: Denies hematuria Musculoskeletal Musculoskeletal: Denies back pain or neck pain Integumentary Denies Abrasions or rash Neurologic Neurologic: Reports headache(s); Denies paresthesias Endocrine Endocrinology: Denies cold intolerance or heat intolerance Hematologic/Lymphatic Hematologic/Lymphatic: Reports easy bruising; Denies easy bleeding EXAM Physical Exam Const Vital Signs: 04/18/24 16:57 04/18/24 17:06 Temperature 97.6 F L Temperature Source Temporal Pulse Rate 115 H Respiratory Rate 18 Respiratory Effort Normal Respiratory Depth Normal Respiratory Pattern Normal Blood Pressure 143/92 H Blood Pressure Mean 109 Pulse Ox 98 Oxygen Delivery Method Room Air (more content not included)... Normal [facility] No Panel Informationon 03-07 Interpretation and review of laboratory results Normal [facility] T4 FREE/FREE THYROXon 2023 Free T4 [Mass/Vol] 1.6 ng/dL 0.9 - 1.7 ng/dL [facility] TSH BLDon 03-07-2024 TSH Qn 0.756 m[IU]/L [facility] CBC W Auto Differential pane l (Bld)on 03-06-2024 Basophils (Bld) [#/Vol] 0.04 10*3/uL [facility] Basophils/100 WBC (Bld) 0.5 % C [facility] Differential cell count method Nom (Bld) Auto [facility] Eosinophils (Bld) [#/Vol] 0.28 10*3/uL [facility] Eosinophils/100 WBC (Bld) 3.7 % [facility] Erythrocyte distribution width (RBC) [Ratio] 15.3 % High 11.5 - 15.0 % [facility] Hematocrit (Bld) [Volume fraction] 43.5 % 36.0 - 46.0 % [facility] Hemoglobin (Bld) [Mass/Vol] 14.8 g/dL 11.5 - 15.5 g/dL [facility] Immature granulocytes (Bld) [#/Vol] [facility] Immature granulocytes/100 WBC (Bld) 0.1 % [facility] Interpretation and review of laboratory results Abnormal [facility] Lymphocytes (Bld) [#/Vol] 4.38 10*3/uL High [facility] Lymphocytes/100 WBC (Bld) 58.2 % [facility] MCH (RBC) [Entitic mass] 33.5 pg 26.0 - 34.0 pg [facility] MCHC (RBC) [Mass/Vol] 34.0 g/dL 30.5 - 36.0 g/dL [facility] MCV (RBC) [Entitic vol] 98.4 fL 80.0 - 100.0 fL [facility] Monocytes (Bld) [#/Vol] 0.67 10*3/uL [facility] Monocytes/100 WBC (Bld) 8.9 % C [facility] Neutrophils (Bld) [#/Vol] 2.15 10*3/uL [facility] Neutrophils/100 WBC (Bld) 28.6 % [facility] Nucleated RBC (Bld) [#/Vol] NINF [facility] Nucleated RBC/100 WBC (Bld) [Ratio] 0.0 % /100 WBC [facility] Platelet mean volume (Bld) [Entitic vol] 10.0 fL 9.0 - 12.7 fL [facility] Platelets (Bld) [#/Vol] 238 10*3/uL [facility] RBC (Bld) [#/Vol] 4.42 10*6/uL 3.90 - 5.2 0 m/uL [facility] WBC (Bld) [#/Vol] 7.53 10*3/uL [facility] Comprehensive metabolic 2000 panelOrdered By: Ruth Schneider on 03-06-2024 Albumin [Mass/Vol] 4.0 g/dL 3.9 - 4.9 g/dL [facility] ALP [Catalytic activity/Vol] 106 U/L 34 - 123 U/L [facility] ALT [Catalytic activity/Vol] 29 U/L 7 - 38 U/L [facility] Anion gap [Moles/Vol] 11 mmol/L 8 - 15 mmol/L [facility] AST [Catalytic activity/Vol] 30 U/L 13 - 35 U/L [facility] Bilirubin [Mass/Vol] 0.5 mg/dL 0.2 - 1 .3 mg/dL [facility] Calcium [Mass/Vol] 9.2 mg/dL 8.5 - 10. 2 mg/dL [facility] Chloride [Moles/Vol] 106 mmol/L 98 - 10 7 mmol/L [facility] CO2 [Moles/Vol] 21 mmol/L Low 22 - 30 mmol/L [facility] Creatinine [Mass/Vol] 0.80 mg/dL 0.58 - 0.96 mg/dL [facility] GFR/1.73 sq M.predicted among non-blacks MDRD (S/P/Bld) [Vol rate/Area] 78 mL/min/{1.73_m2} - PINF [facility] Comment on above: Estimated Glomerular Filtration Rate (eGFR) is calculated using the 2020 CKD-EPI creatinine equation. This equation utilizes serum creatinine, sex, and age as parameters. The creatinine assay has traceable calibration to isotope dilution-mass spectrometry. Refer to KDIGO guidelines for clinical interpretation. In patients with unstable renal function, e.g. those with acute kidney injury, the eGFR may not accurately reflect actual GFR. Glucose [Mass/Vol] 122 mg/dL High 74 - 99 mg/dL [facility] Comment on above: The [place] Di[employer] (ADA) provides guidance for cutoff values for fasting glucose and random glucose. The ADA defines fasting as no caloric intake for at least 8 hours. Fasting plasma glucose results between 100 to 125 mg/dL indicate increased risk for diabetes (prediabetes). Fasting plasma glucose results greater than or equal to 126 mg/dL meet the criteria for diagnosis of diabetes. In the absence of unequivocal hyperglycemia, results should be confirmed by repeat testing. In a patient with classic symptoms of hyperglycemia or hyperglycemic crisis, random plasma glucose results greater than or equal to 200 mg/dL meet the criteria for diagnosis of diabetes. Reference: Standards of Medical Care in Diabetes 2016, [place] [employer]. Diabetes Care. 2016.39(Suppl 1). Interpretation and review of laboratory results Abnormal [facility] Potassium [Moles/Vol] 3.7 mmol/L 3.7 - 5.1 mmol/L [facility] Protein [Mass/Vol] 6.6 g/dL 6.3 - 8.0 g/dL [facility] Sodium [Moles/Vol] 138 mmol/L 136 - 144 mmol/L [facility] Urea nitrogen [Mass/Vol] 21 mg/dL 7 - 21 mg/dL [facility] HbA1c (Bld)on 03-06-2024 Average glucose Estimated from glycated hemoglobin (Bld) [Mass/Vol] 105 mg/dL [facility] Comment on above: eAG: (Estimated aver age glucose) is a calculated value from HgbA1c and is access services representative of the average blood glucose level in the last 2-3 month period. HbA1c (Bld) [Mass fraction] 5.3 % 4.3 - 5.6 % [facility] Comment on above: [place] Diabetes As sociation guidelines indicate that patients with HgbA1c in the range 5.7-6.4% are at increased risk for development of diabetes, and intervention by lifestyle modification may be beneficial. HgbA1c greater or equal to 6.5% is considered diagnostic of diabetes. [facility] SCREENINGon 06-18-2023 [facility] CBC W Auto Differential pane l (Bld)on 06-01-2023 Basophils (Bld) [#/Vol] 0.00 10*3/uL <0.11 k/uL [facility] Basophils/100 WBC (Bld) 0.0 % [facility] Differential cell count method Nom (Bld) Manual [facility] Eosinophils (Bld) [#/Vol] 0.10 10*3/uL <0.46 k/uL [facility] Eosinophils/100 WBC (Bld) 1.0 % [facility] Erythrocyte distribution width (RBC) [Ratio] 13.7 % 11.5 - 15.0 % [facility] Hematocrit (Bld) [Volume fraction] 43.3 % 36.0 - 46.0 % [facility] Hemoglobin (Bld) [Mass/Vol] 15.2 g/dL 11.5 - 15.5 g/dL [facility] Lymphocytes (Bld) [#/Vol] 6.03 10*3/uL High 1.00 - 4.00 k/uL [facility] Lymphocytes/100 WBC (Bld) 62.0 % [facility] MCH (RBC) [Entitic mass] 33.6 pg 26.0 - 34.0 pg [facility] MCHC (RBC) [Mass/Vol] 35.1 g/dL 30.5 - 36.0 g/dL [facility] MCV (RBC) [Entitic vol] 95.6 fL 80.0 - 100.0 fL [facility] Monocytes (Bld) [#/Vol] 0.97 10*3/uL High <0.87 k/uL [facility] Monocytes/100 WBC (Bld) 10.0 % [facility] Neutrophils (Bld) [#/Vol] 2.63 10*3/uL 1.45 - 7.50 k/uL [facility] Neutrophils/100 WBC (Bld) 27.0 % [facility] Nucleated RBC (Bld) [#/Vol] <0.01 k/uL [facility] Nucleated RBC/100 WBC (Bld) [Ratio] 0.0 /100 WBC [facility] Platelet mean volume (Bld) [Entitic vol] 11.0 fL 9.0 - 12.7 fL [facility] Platelets (Bld) [#/Vol] 239 10*3/uL 150 - 400 k/uL [facility] Platelets Estimate (Bld) [#/Vol] Adequate [facility] Polychromasia LM Ql (Bld) Slight [facility] RBC (Bld) [#/Vol] 4.53 10*6/uL 3.90 - 5.2 0 m/uL [facility] Red Cell Morph Reviewed: unremarkable [facility] WBC (Bld) [#/Vol] 9.73 10*3/uL 3.70 - 11.00 k/uL [facility] Comprehensive metabolic 2000 panelon 06-01-2023 Albumin [Mass/Vol] 4.1 g/dL 3.9 - 4.9 g/dL [facility] ALP [Catalytic activity/Vol] 126 U/L High 34 - 123 U/L [facility] ALT [Catalytic activity/Vol] 27 U/L 7 - 38 U/L [facility] Anion gap [Moles/Vol] 11 mmol/L 9 - 18 mmol/L [facility] AST [Catalytic activity/Vol] 28 U/L 13 - 35 U/L [facility] Bilirubin [Mass/Vol] 0.3 mg/dL 0.2 - 1 .3 mg/dL [facility] Calcium [Mass/Vol] 9.5 mg/dL 8.5 - 10. 2 mg/dL [facility] Chloride [Moles/Vol] 103 mmol/L 97 - 10 5 mmol/L [facility] CO2 [Moles/Vol] 22 mmol/L 22 - 30 mmol/L [facility] Creatinine [Mass/Vol] 0.79 mg/dL 0.58 - 0.96 mg/dL [facility] Estimated Glomerular Filtration Rate 80 mL/min/1.73m >=60 mL/min/1.73 m [facility] Glucose [Mass/Vol] 79 mg/dL 74 - 99 mg/dL [facility] Potassium [Moles/Vol] 4.3 mmol/L 3.7 - 5.1 mmol/L [facility] Protein [Mass/Vol] 7.1 g/dL 6.3 - 8.0 g/dL [facility] Sodium [Moles/Vol] 136 mmol/L 136 - 144 mmol/L [facility] Urea nitrogen [Mass/Vol] 24 mg/dL High 7 - 21 mg/dL [facility] MAGNESIUM BLDon 06-01-2023 Magnesium [Mass/Vol] 1.9 mg/dL 1.7 - 2 .3 mg/dL [facility] CBC W Auto Differential pane l (Bld)on 03-31-2023 Basophils (Bld) [#/Vol] 0.00 10*3/uL <0.11 k/uL [facility] Basophils/100 WBC (Bld) 0.0 % [facility] Differential cell count method Nom (Bld) Manual [facility] Eosinophils (Bld) [#/Vol] 0.48 10*3/uL High <0.46 k/uL [facility] Eosinophils/100 WBC (Bld) 5.0 % [facility] Erythrocyte distribution width (RBC) [Ratio] 14.5 % 11.5 - 15.0 % [facility] Hematocrit (Bld) [Volume fraction] 43.0 % 36.0 - 46.0 % [facility] Hemoglobin (Bld) [Mass/Vol] 14.5 g/dL 11.5 - 15.5 g/dL [facility] Lymphocytes (Bld) [#/Vol] 5.11 10*3/uL High 1.00 - 4.00 k/uL [facility] Lymphocytes/100 WBC (Bld) 53.0 % [facility] MCH (RBC) [Entitic mass] 33.1 pg 26.0 - 34.0 pg [facility] MCHC (RBC) [Mass/Vol] 33.7 g/dL 30.5 - 36.0 g/dL [facility] MCV (RBC) [Entitic vol] 98.2 fL 80.0 - 100.0 fL [facility] Monocytes (Bld) [#/Vol] 0.97 10*3/uL High <0.87 k/uL [facility] Monocytes/100 WBC (Bld) 10.0 % [facility] Neutrophils (Bld) [#/Vol] 3.09 10*3/uL 1.45 - 7.50 k/uL [facility] Neutrophils/100 WBC (Bld) 32.0 % [facility] Nucleated RBC (Bld) [#/Vol] <0.01 k/uL [facility] Nucleated RBC/100 WBC (Bld) [Ratio] 0.0 /100 WBC [facility] Platelet mean volume (Bld) [Entitic vol] 9.8 fL 9.0 - 12.7 fL [facility] Platelets (Bld) [#/Vol] 219 10*3/uL 150 - 400 k/uL [facility] Platelets Estimate (Bld) [#/Vol] Adequate [facility] RBC (Bld) [#/Vol] 4.38 10*6/uL 3.90 - 5.2 0 m/uL [facility] Red Cell Morph Reviewed: unremarkable [facility] WBC (Bld) [#/Vol] 9.65 10*3/uL 3.70 - 11.00 k/uL [facility] Comprehensive metabolic 2000 panelon 03-31-2023 Albumin [Mass/Vol] 4.2 g/dL 3.9 - 4.9 g/dL [facility] ALP [Catalytic activity/Vol] 123 U/L 34 - 123 U/L [facility] ALT [Catalytic activity/Vol] 28 U/L 7 - 38 U/L [facility] Anion gap [Moles/Vol] 12 mmol/L 9 - 18 mmol/L [facility] AST [Catalytic activity/Vol] 21 U/L 13 - 35 U/L [facility] Bilirubin [Mass/Vol] 0.3 mg/dL 0.2 - 1 .3 mg/dL [facility] Calcium [Mass/Vol] 9.8 mg/dL 8.5 - 10. 2 mg/dL [facility] Chloride [Moles/Vol] 102 mmol/L 97 - 10 5 mmol/L [facility] CO2 [Moles/Vol] 21 mmol/L Low 22 - 30 mmol/L [facility] Creatinine [Mass/Vol] 0.83 mg/dL 0.58 - 0.96 mg/dL [facility] Estimated Glomerular Filtration Rate 75 mL/min/1.73m >=60 mL/min/1.73 m [facility] Glucose [Mass/Vol] 105 mg/dL High 74 - 99 mg/dL [facility] Potassium [Moles/Vol] 4.0 mmol/L 3.7 - 5.1 mmol/L [facility] Protein [Mass/Vol] 6.7 g/dL 6.3 - 8.0 g/dL [facility] Sodium [Moles/Vol] 135 mmol/L Low 136 - 144 mmol/L [facility] Urea nitrogen [Mass/Vol] 27 mg/dL High 7 - 21 mg/dL [facility] MAGNESIUM BLDon 03-31-2023 Magnesium [Mass/Vol] 2.0 mg/dL 1.7 - 2 .3 mg/dL [facility] Absolute lymphocyte countOrd ered By: Kwabena Sin on 03-25-2023 Lymphocytes Auto (Unsp spec) [#/Vol] 5.49 10*3/uL 0.83-4.51 [facility] Basophil percentageOrdered B y: Kwabena Sin on 03-25-2023 Basophil percentage 0-5 SEEN /hpf 0-5 [facility] Basophils/100 WBC (Bld) 0.5 % 0-1 [facility] Bilirubin [Mass/Vol] 0.40 mg/dL 0.20-1.00 [facility] Comment on above: For patients on eltr ombopag therapy, use of Dimension [place] TBIL is not recommended. Chloride [Moles/Vol] 105 mmol/L 98-107 [facility] Eosinophils/100 WBC (Bld) 1.3 % 0-5 [facility] Glucose [Mass/Vol] 118 mg/dL 74-106 [facility] Comment on above: Fasting Glucose resu lt from 100 to 125 mg/dL suggests IMPAIRED HOMEOSTASIS per A.D.A. criteria. Neutrophils (Bld) [#/Vol] 4.8 10*3/uL 2.0-7.7 [facility] Neutrophils/100 WBC (Bld) 41.3 % 47-70 [facility] Potassium [Moles/Vol] 3.8 mmol/L 3.5-5.1 [facility] Protein [Mass/Vol] 6.9 g/dL 6.4-8.2 [facility] Sodium [Moles/Vol] 136 mmol/L 136-145 [facility] WBC (Bld) [#/Vol] 11.6 10*3/uL 4.4-11.0 [facility] Bilirubin Test strip Ql (U)O rdered By: Kwabena Sin on 03-25-2023 Bilirubin Ql (U) Negative Negative [facility] Blood erythrocytes count (nu mber/volume)Ordered By: Kwabena Sin on 03-25-2023 RBC (Bld) [#/Vol] 4.18 10*6/uL 4.2-5.4 [facility] Blood hemoglobin measurement (mass/volume)Ordered By: Kwabena Sin on 03-25-2023 Hemoglobin (Bld) [Mass/Vol] 13.7 g/dL 12.0-15.0 [facility] Blood lymphocytes/100 leukoc ytesOrdered By: Kwabena Sin on 03-25-2023 Lymphocytes/100 WBC (Bld) 47.2 % 19-41 [facility] Blood manual differential co mment interpretation (narrative result)Ordered By: Kwabena Sin on 03-25-2023 Manual differential comment Fortunato (Bld) [Interp] SCANNED [facility] Comment on above: LYMPHOCYTOSIS NOTED Blood monocytes/100 leukocyt esOrdered By: Kwabena Sin on 03-25-2023 Monocytes/100 WBC (Bld) 9.4 % 0-10 [facility] Blood platelet mean volumeOr dered By: Kwabena Sin on 03-25-2023 Platelet mean volume (Bld) [Entitic vol] 10.3 fL 6.2-12.0 [facility] Determination of erythrocyte mean corpuscular volume (MCV)Ordered By: Kwabena Sin on 03-25-2023 MCV (RBC) [Entitic vol] 99.5 fL 81-99 [facility] Hematocrit Auto (Bld) [Volum e fraction]Ordered By: Kwabena Sin on 03-25-2023 Hematocrit (Bld) [Volume fraction] 41.6 % 37-47 [facility] Ketones Test strip Ql (U)Ord ered By: Kwabena Sin on 03-25-2023 Ketones Ql (U) Negative Negative [facility] Laboratory - Chemistry and C hemistry - challengeOrdered By: Kwabena Sin on 03-25-2023 ALP [Catalytic activity/Vol] 114 U/L 45-117 [facility] ALT [Catalytic activity/Vol] 33 U/L 13-56 [facility] CO2 [Moles/Vol] 23.0 mmol/L 21.0-32.0 [facility] Globulin (S) [Mass/Vol] 3.6 g/dL 2.2-4.2 [facility] Lipase [Catalytic activity/Vol] 30 U/L 13-75 [facility] Comment on above: Please note:LIPASE r evised reference range effective 22. New Lipase methodology. Expected to produce lower values than the previous assay method. NEW Reference Range: 13 - 75 U/L Urea nitrogen/Creatinine [Mass ratio] 35.5 mg/mg 10-20 [facility] Laboratory - Hematology and Cell countsOrdered By: Kwabena Sin on 03-25-2023 Erythrocyte distribution width (RBC) [Entitic vol] 53.0 fL 35.1-43.9 [facility] Erythrocyte distribution width (RBC) [Ratio] 14.4 % 11.6-14.6 [facility] Immature granulocytes/100 WBC (Bld) 0.300 % 0.0-0.9 [facility] Comment on above: IG% - Immature Granu locytes (promyelocytes, myelocytes and metamyelocytes) > 1% indicates that a LEFT SHIFT is Present. MCH (RBC) [Entitic mass] 32.8 pg 27.0-32.0 [facility] Nucleated RBC/100 WBC (Bld) [Ratio] 0 % 0-5 [facility] MCHC Auto (RBC) [Mass/Vol]Or dered By: Kwabena Sin on 03-25-2023 MCHC (RBC) [Mass/Vol] 32.9 g/dL 32-36 [facility] Mucus LM Ql (Urine sed)Order ed By: Kwabena Sin on 03-25-2023 Mucus Ql (Urine sed) 0 SEEN /hpf [facility] Nitrite Test strip Ql (U)Ord ered By: Kwabena Sin on 03-25-2023 Nitrite Ql (U) Negative Negative [facility] No Panel InformationOrdered By: Kwabena Sin on 03-25-2023 Estimated Creatinine Clearance Calc 60.13 ml/min [facility] Estimated GFR (MDRD) Amer 71 mL/min >60 [facility] Comment on above: GFR Calc Estimated GFR (MDRD) Non-Af Amer 59 mL/min >60 [facility] Comment on above: Non- GFR Calc Platelets bldOrdered By: Massimo Sin on 03-25-2023 Platelets (Bld) [#/Vol] 234 10*3/uL 150-450 [facility] Protein Test strip Ql (U)Ord ered By: Kwabena Sin on 03-25-2023 Protein Ql (U) Negative Negative [facility] Serum or plasma albumin bri urement (mass/volume)Ordered By: Kwabena Sin on 03-25-2023 Albumin [Mass/Vol] 3.3 g/dL 3.2-5.0 [facility] Serum or plasma albumin/glob ulin mass ratioOrdered By: Kwabena Sin on 03-25-2023 Albumin/Globulin [Mass ratio] 0.9 {ratio} 0.9-2.4 [facility] Serum or plasma calcium bri urement (mass/volume)Ordered By: Kwabena Sin on 03-25-2023 Calcium [Mass/Vol] 8.4 mg/dL 8.5-10.1 [facility] Serum or plasma creatinine m easurement (mass/volume)Ordered By: Kawbena Sin on 03-25-2023 Creatinine [Mass/Vol] 0.98 mg/dL 0.55-1.02 [facility] Comment on above: The validity of the calculated GFR & GFRAA in patients over 70 years has not been determined. Clinical correlation is essential. Serum or plasma urea nitroge n measurement (mass/volume)Ordered By: Kwabena Sin on 03-25-2023 Urea nitrogen [Mass/Vol] 35 mg/dL 7-18 [facility] Squamous epithelial cells de tection in urine sediment by light microscopyOrdered By: Kwabena Sin on 03-25-2023 Epithelial cells.squamous LM Ql (Urine sed) 0 SEEN /hpf 5-10 [facility] Thin prep Papanicolaou smear with manual screeningOrdered By: Kwabena Sin on 03-25-2023 Thin prep Papanicolaou smear with manual screening 23 U/L 15-37 [facility] Thin prep Papanicolaou smear with manual screening 8 5-15 [facility] Urine blood detectionOrdered By: Kwabena Sin on 03-25-2023 RBC Ql (U) 10 /ul Negative [facility] RBC Ql (U) 0-5 SEEN /hpf 0-5 [facility] Urine clarityOrdered By: Massimo Sin on 03-25-2023 Clarity (U) Clear Clear [facility] Urine color determinationOrd ered By: Kwabena Sin on 03-25-2023 Color (U) Yellow Yellow [facility] Urine glucose detectionOrder ed By: Kwabena Sin on 03-25-2023 Glucose Ql (U) Normal mg/dl Normal [facility] Urine leukocyte esterase det ection by dipstickOrdered By: Kwabena Sin on 03-25-2023 Leukocyte esterase Test strip Ql (U) 100 /ul Negative [facility] Urine pHOrdered By: Kwabena bennett on 03-25-2023 pH (U) 6.0 [pH] 5.0 - 8.0 [facility] Urine sediment bacteria coun t by microscopy (number/high power field)Ordered By: Kwabena Sin on 03-25-2023 Bacteria LM.HPF (Urine sed) [#/Area] RARE /hpf None Seen [facility] Urine specific gravity measu rementOrdered By: Kwabena Sin on 03-25-2023 Specific gravity (U) [Rel density] 1.010 1.002-1.030 [facility] Urobilinogen Auto test strip Ql (U)Ordered By: Kwabena Sin on 03-25-2023 Urobilinogen Ql (U) Normal mg/dl Normal [facility] CBC W Auto Differential pane l (Bld)on 03-03-2023 Basophils (Bld) [#/Vol] 0.04 10*3/uL <0.11 k/uL [facility] Basophils/100 WBC (Bld) 0.4 % [facility] Differential cell count method Nom (Bld) Auto [facility] Eosinophils (Bld) [#/Vol] 0.21 10*3/uL <0.46 k/uL [facility] Eosinophils/100 WBC (Bld) 1.9 % [facility] Erythrocyte distribution width (RBC) [Ratio] 14.9 % 11.5 - 15.0 % [facility] Hematocrit (Bld) [Volume fraction] 44.0 % 36.0 - 46.0 % [facility] Hemoglobin (Bld) [Mass/Vol] 14.8 g/dL 11.5 - 15.5 g/dL [facility] Immature granulocytes (Bld) [#/Vol] 0.05 10*3/uL <0.10 k/uL [facility] Immature granulocytes/100 WBC (Bld) 0.5 % [facility] Lymphocytes (Bld) [#/Vol] 4.57 10*3/uL High 1.00 - 4.00 k/uL [facility] Lymphocytes/100 WBC (Bld) 41.4 % [facility] MCH (RBC) [Entitic mass] 33.4 pg 26.0 - 34.0 pg [facility] MCHC (RBC) [Mass/Vol] 33.6 g/dL 30.5 - 36.0 g/dL [facility] MCV (RBC) [Entitic vol] 99.3 fL 80.0 - 100.0 fL [facility] Monocytes (Bld) [#/Vol] 0.90 10*3/uL High <0.87 k/uL [facility] Monocytes/100 WBC (Bld) 8.2 % [facility] Neutrophils (Bld) [#/Vol] 5.27 10*3/uL 1.45 - 7.50 k/uL [facility] Neutrophils/100 WBC (Bld) 47.6 % [facility] Nucleated RBC (Bld) [#/Vol] <0.01 k/uL [facility] Nucleated RBC/100 WBC (Bld) [Ratio] 0.0 /100 WBC [facility] Platelet mean volume (Bld) [Entitic vol] 9.8 fL 9.0 - 12.7 fL [facility] Platelets (Bld) [#/Vol] 231 10*3/uL 150 - 400 k/uL [facility] RBC (Bld) [#/Vol] 4.43 10*6/uL 3.90 - 5.2 0 m/uL [facility] WBC (Bld) [#/Vol] 11.04 10*3/uL High 3.70 - 11.00 k/uL [facility] Comprehensive metabolic 2000 panelon 03-03-2023 Albumin [Mass/Vol] 4.2 g/dL 3.9 - 4.9 g/dL [facility] ALP [Catalytic activity/Vol] 133 U/L High 34 - 123 U/L [facility] ALT [Catalytic activity/Vol] 27 U/L 7 - 38 U/L [facility] Anion gap [Moles/Vol] 11 mmol/L 9 - 18 mmol/L [facility] AST [Catalytic activity/Vol] 24 U/L 13 - 35 U/L [facility] Bilirubin [Mass/Vol] 0.4 mg/dL 0.2 - 1 .3 mg/dL [facility] Calcium [Mass/Vol] 9.3 mg/dL 8.5 - 10. 2 mg/dL [facility] Chloride [Moles/Vol] 105 mmol/L 97 - 10 5 mmol/L [facility] CO2 [Moles/Vol] 22 mmol/L 22 - 30 mmol/L [facility] Creatinine [Mass/Vol] 0.91 mg/dL 0.58 - 0.96 mg/dL [facility] Estimated Glomerular Filtration Rate 67 mL/min/1.73m >=60 mL/min/1.73 m [facility] Glucose [Mass/Vol] 110 mg/dL High 74 - 99 mg/dL [facility] Potassium [Moles/Vol] 4.1 mmol/L 3.7 - 5.1 mmol/L [facility] Protein [Mass/Vol] 7.0 g/dL 6.3 - 8.0 g/dL [facility] Sodium [Moles/Vol] 138 mmol/L 136 - 144 mmol/L [facility] Urea nitrogen [Mass/Vol] 22 mg/dL High 7 - 21 mg/dL [facility] VITAMIN B12 BLOODon 03-03-20 Cobalamin (Vitamin B12) [Mass/Vol] 1344 pg/mL High 232 - 1,245 pg/mL [facility] CBC W Auto Differential pane l (Bld)on 12-28-2022 Basophils (Bld) [#/Vol] 0.04 10*3/uL <0.11 k/uL [facility] Basophils/100 WBC (Bld) 0.5 % [facility] Differential cell count method Nom (Bld) Auto [facility] Eosinophils (Bld) [#/Vol] 0.23 10*3/uL <0.46 k/uL [facility] Eosinophils/100 WBC (Bld) 2.9 % [facility] Erythrocyte distribution width (RBC) [Ratio] 14.9 % 11.5 - 15.0 % [facility] Hematocrit (Bld) [Volume fraction] 42.5 % 36.0 - 46.0 % [facility] Hemoglobin (Bld) [Mass/Vol] 14.6 g/dL 11.5 - 15.5 g/dL [facility] Immature granulocytes (Bld) [#/Vol] <0.10 k/uL [facility] Immature granulocytes/100 WBC (Bld) 0.3 % [facility] Lymphocytes (Bld) [#/Vol] 4.14 10*3/uL High 1.00 - 4.00 k/uL [facility] Lymphocytes/100 WBC (Bld) 52.3 % [facility] MCH (RBC) [Entitic mass] 33.3 pg 26.0 - 34.0 pg [facility] MCHC (RBC) [Mass/Vol] 34.4 g/dL 30.5 - 36.0 g/dL [facility] MCV (RBC) [Entitic vol] 97.0 fL 80.0 - 100.0 fL [facility] Monocytes (Bld) [#/Vol] 0.83 10*3/uL <0.87 k/uL [facility] Monocytes/100 WBC (Bld) 10.5 % [facility] ([facility]ld[facility] [#/Vol] 2.66 10*3/uL 1.45 - 7.50 k/uL [facility] Neutrophils/100 WBC (Bld) 33.5 % [facility] Nucleated RBC (Bld) [#/Vol] <0.01 k/uL [facility] Nucleated RBC/100 WBC (Bld) [Ratio] 0.0 /100 WBC [facility] Platelet mean volume (Bld) [Entitic vol] 10.5 fL 9.0 - 12.7 fL [facility] Platelets (Bld) [#/Vol] 244 10*3/uL 150 - 400 k/uL [facility] RBC (Bld) [#/Vol] 4.38 10*6/uL 3.90 - 5.2 0 m/uL [facility] WBC (Bld) [#/Vol] 7.92 10*3/uL 3.70 - 11.00 k/uL [facility] Comprehensive metabolic 2000 panelon 12-28-2022 Albumin [Mass/Vol] 3.9 g/dL 3.9 - 4.9 g/dL [facility] ALP [Catalytic activity/Vol] 131 U/L High 34 - 123 U/L [facility] ALT [Catalytic activity/Vol] 24 U/L 7 - 38 U/L [facility] Anion gap [Moles/Vol] 10 mmol/L 9 - 18 mmol/L [facility] AST [Catalytic activity/Vol] 24 U/L 13 - 35 U/L [facility] Bilirubin [Mass/Vol] 0.4 mg/dL 0.2 - 1 .3 mg/dL [facility] Calcium [Mass/Vol] 9.3 mg/dL 8.5 - 10. 2 mg/dL [facility] Chloride [Moles/Vol] 104 mmol/L 97 - 10 5 mmol/L [facility] CO2 [Moles/Vol] 22 mmol/L 22 - 30 mmol/L [facility] Creatinine [Mass/Vol] 0.77 mg/dL 0.58 - 0.96 mg/dL [facility] Estimated Glomerular Filtration Rate 83 mL/min/1.73m >=60 mL/min/1.73 m [facility] Glucose [Mass/Vol] 109 mg/dL High 74 - 99 mg/dL [facility] Potassium [Moles/Vol] 3.8 mmol/L 3.7 - 5.1 mmol/L [facility] Protein [Mass/Vol] 7.0 g/dL 6.3 - 8.0 g/dL [facility] Sodium [Moles/Vol] 136 mmol/L 136 - 144 mmol/L [facility] Urea nitrogen [Mass/Vol] 28 mg/dL High 7 - 21 mg/dL [facility] MAGNESIUM [facility] 12-28-2022 Magnesium [Mass/Vol] 1.9 mg/dL 1.7 - 2 .3 mg/dL [facility] T3 FREE [facility] 12-28-2022 Free T3 [Mass/Vol] 2.9 pg/mL 2.3 - 4.1 pg/mL [facility] T4 FREE/FREE THYROXon 2022 Free T4 [Mass/Vol] 1.7 ng/dL 0.9 - 1.7 ng/dL [facility] TSH Don 12-28-2022 TSH Qn 0.333 m[IU]/L 0.270 - 4.200 mIU/L [facility] VITAMIN B12 BLOODon 12-29-19 Cobalamin (Vitamin B12) [Mass/Vol] 1415 pg/mL High 232 - 1,245 pg/mL [facility] CBC W Auto Differential pane l (Bld)on 09-09-2022 Basophils (Bld) [#/Vol] <0.11 k/uL [facility] Bas[facility]/100 WBC (Bld) 0.2 % [facility] Differential cell count method Nom (Bld) Auto [facility] Eosinophils (Bld) [#/Vol] 0.35 10*3/uL <0.46 k/uL [facility] Eosinophils/100 WBC (Bld) 4.4 % [facility] Erythrocyte distribution width (RBC) [Ratio] 15.5 % High 11.5 - 15.0 % [facility] Hematocrit (Bld) [Volume fraction] 39.8 % 36.0 - 46.0 % [facility] Hemoglobin (Bld) [Mass/Vol] 13.5 g/dL 11.5 - 15.5 g/dL [facility] Immature granulocytes (Bld) [#/Vol] <0.10 k/uL [facility] Immature granulocytes/100 WBC (Bld) 0.1 % [facility] Lymphocytes (Bld) [#/Vol] 4.13 10*3/uL High 1.00 - 4.00 k/uL [facility] Lymphocytes/100 WBC (Bld) 51.4 % [facility] MCH (RBC) [Entitic mass] 33.6 pg 26.0 - 34.0 pg [facility] MCHC (RBC) [Mass/Vol] 33.9 g/dL 30.5 - 36.0 g/dL [facility] MCV (RBC) [Entitic vol] 99.0 fL 80.0 - 100.0 fL [facility] Monocytes (Bld) [#/Vol] 0.79 10*3/uL <0.87 k/uL [facility] Monocytes/100 WBC (Bld) 9.8 % [facility] Neutrophils (Bld) [#/Vol] 2.74 10*3/uL 1.45 - 7.50 k/uL [facility] Neutrophils/100 WBC (Bld) 34.1 % [facility] Nucleated RBC (Bld) [#/Vol] 0.03 10*3/uL High <0.01 k/uL [facility] Nucleated RBC/100 WBC (Bld) [Ratio] 0.4 /100 WBC [facility] Platelet mean volume (Bld) [Entitic vol] 10.2 fL 9.0 - 12.7 fL [facility] Platelets (Bld) [#/Vol] 260 10*3/uL 150 - 400 k/uL [facility] RBC (Bld) [#/Vol] 4.02 10*6/uL 3.90 - 5.2 0 m/uL [facility] WBC (Bld) [#/Vol] 8.04 10*3/uL 3.70 - 11.00 k/uL [facility] Comprehensive metabolic 2000 panelon 09-09-2022 Albumin [Mass/Vol] 4.1 g/dL 3.9 - 4.9 g/dL [facility] ALP [Catalytic activity/Vol] 121 U/L 34 - 123 U/L [facility] ALT [Catalytic activity/Vol] 27 U/L 7 - 38 U/L [facility] Anion gap [Moles/Vol] 15 mmol/L 9 - 18 mmol/L [facility] AST [Catalytic activity/Vol] 26 U/L 13 - 35 U/L [facility] Bilirubin [Mass/Vol] 0.3 mg/dL 0.2 - 1 .3 mg/dL [facility] Calcium [Mass/Vol] 9.2 mg/dL 8.5 - 10. 2 mg/dL [facility] Chloride [Moles/Vol] 109 mmol/L High 97 - 10 5 mmol/L [facility] CO2 [Moles/Vol] 22 mmol/L 22 - 30 mmol/L [facility] Creatinine [Mass/Vol] 0.86 mg/dL 0.58 - 0.96 mg/dL [facility] Estimated Glomerular Filtration Rate 72 mL/min/1.73m >=60 mL/min/1.73 m [facility] Glucose [Mass/Vol] 107 mg/dL High 74 - 99 mg/dL [facility] Potassium [Moles/Vol] 4.1 mmol/L 3.7 - 5.1 mmol/L [facility] Protein [Mass/Vol] 6.4 g/dL 6.3 - 8.0 g/dL [facility] Sodium [Moles/Vol] 146 mmol/L High 136 - 144 mmol/L [facility] Urea nitrogen [Mass/Vol] 31 mg/dL High 7 - 21 mg/dL [facility] Absolute lymphocyte counton 08-24-2022 Lymphocytes Auto (Unsp spec) [#/Vol] 1.99 10*3/uL 0.83-4.51 [facility] Work Phone: Basophil percentageon 2021 Basophils/100 WBC (Bld) 0.0 % 0-1 [facility] Work Phone: Bilirubin [Mass/Vol] 0.30 mg/dL 0.20-[facility].00 [facility]: Comment on above: For patients on eltr ombopag therapy, use of Dimension [place] TBIL is not recommended. Chloride [Moles/Vol] 119 mmol/L 98-107 [facility] Work Phone: Eosinophils/100 WBC (Bld) 0.0 % 0-5 [facility] Work Phone: [phone] Glucose [Mass/Vol] 182 mg/dL 74-106 [facility] Work Phone: Comment on above: Fasting Glucose resu lt greater than or equal to 126 mg/dL suggests DIABETES MELLITUS per A.D.A. criteria. Neutrophils (Bld) [#/Vol] 4.8 10*3/uL 2.0-7.7 [facility] Work Phone: Neutrophils/100 WBC (Bld) 67.8 % 47-70 [facility] Work Phone: Potassium [Moles/Vol] 4.9 mmol/L 3.5-5.1 [facility] Work Phone: Protein [Mass/Vol] 6.5 g/dL 6.4-8.2 [facility] Work Phone: Sodium [Moles/Vol] 139 mmol/L 136-145 [facility] Work Phone: WBC (Bld) [#/Vol] 7.1 10*3/uL 4.4-11.0 [facility] Work Phone: Blood erythrocytes count (nu mber/volume)on 08-24-2022 RBC (Bld) [#/Vol] 4.09 10*6/uL 4.2-5.4 [facility] Work Phone: Blood hemoglobin measurement (mass/volume)on 08-24-2022 Hemoglobin (Bld) [Mass/Vol] 13.8 g/dL 12.0-15.0 [facility] Work Phone: Blood lymphocytes/100 leukoc yteson 08-24-2022 Lymphocytes/100 WBC (Bld) 27.9 % 19-41 [facility] Work Phone: Blood monocytes/100 leukocyt eson 08-24-2022 Monocytes/100 WBC (Bld) 3.7 % 0-10 [facility] Work Phone: Blood platelet mean volumeon 08-24-2022 Platelet mean volume (Bld) [Entitic vol] 10.8 fL 6.2-12.0 [facility] Work Phone: Determination of erythrocyte mean corpuscular volume (MCV)on 08-24-2022 MCV (RBC) [Entitic vol] 98.8 fL 81-99 [facility] Work Phone: Glucose Glucometer (BldC) [M ass/Vol]on 08-24-2022 Glucose [Mass/Vol] 104 mg/dL 74-106 [facility] Work Phone: Comment on above: MANAGEMENT OF PATIEN T CARE PER NURSING PROTOCOL Hematocrit Auto (Bld) [Volum e fraction]on 08-24-2022 Hematocrit (Bld) [Volume fraction] 40.4 % 37-47 [facility] Work Phone: Laboratory - Chemistry and C hemistry - challengeon 08-24-2022 ALP [Catalytic activity/Vol] 87 U/L 45-117 [facility] Work Phone: ALT [Catalytic activity/Vol] 49 U/L 13-56 [facility] Work Phone: CO2 [Moles/Vol] 14.0 mmol/L 21.0-32.0 [facility] Work Phone: Globulin (S) [Mass/Vol] 3.7 g/dL 2.2-4.2 [facility] Work Phone: Urea nitrogen/Creatinine [Mass ratio] 35.5 mg/mg 10-20 [facility] Work Phone: Laboratory - Hematology and Cell countson 08-24-2022 Erythrocyte distribution width (RBC) [Entitic vol] 52.8 fL 35.1-43.9 [facility] Work Phone: [phone] Erythrocyte distribution width (RBC) [Ratio] 14.5 % 11.6-14.6 [facility] Work Phone: [phone] Immature granulocytes/100 WBC (Bld) 0.600 % 0.0-0.9 [facility] Work Phone: [phone] Comment on above: IG% - Immature Granu locytes (promyelocytes, myelocytes and metamyelocytes) > 1% indicates that a LEFT SHIFT is Present. MCH (RBC) [Entitic mass] 33.7 pg 27.0-32.0 [facility] Work Phone: [phone] Nucleated RBC/100 WBC (Bld) [Ratio] 0 % 0-5 [facility] Work Phone: [phone] MCHC Auto (RBC) [Mass/Vol]on 08-24-2022 MCHC (RBC) [Mass/Vol] 34.2 g/dL 32-36 [facility] Work Phone: [phone] Panel Informationon 08-24 Estimated Creatinine Clearance Calc 53.67 ml/min [facility] Work Phone: [phone] Estimated GFR (MDRD) Amer 65 mL/min >60 [facility] Work Phone: [phone] Comment on above: GFR Calc Estimated GFR (MDRD) Non-Af Amer 54 mL/min >60 [facility] Work Phone: [phone] Comment on above: Non- GFR Calc Platelets bldon 08-24-2022 Platelets (Bld) [#/Vol] 312 10*3/uL 150-450 [facility] Work Phone: [phone] Serum or plasma albumin bri urement (mass/volume)on 08-24-2022 Albumin [Mass/Vol] 2.8 g/dL 3.2-5.0 [facility] Work Phone: [phone] Serum or plasma albumin/glob ulin mass ratioon 08-24-2022 Albumin/Globulin [Mass ratio] 0.8 {ratio} 0.9-2.4 [facility] Work Phone: [phone] Serum or plasma calcium bri urement (mass/volume)on 08-24-2022 Calcium [Mass/Vol] 8.4 mg/dL 8.5-10.1 [facility] Work Phone: Serum or plasma creatinine m easurement (mass/volume)on 08-24-2022 Creatinine [Mass/Vol] 1.07 mg/dL 0.55-1.02 [facility] Work Phone: Comment on above: The validity of the calculated GFR & GFRAA in patients over 70 years has not been determined. Clinical correlation is essential. Serum or plasma urea nitroge n measurement (mass/volume)on 08-24-2022 Urea nitrogen [Mass/Vol] 38 mg/dL 7-18 [facility] Work Phone: Thin prep Papanicolaou smear with manual screeningon 08-24-2022 Thin prep Papanicolaou smear with manual screening 23 U/L 15-37 [facility] Work Phone: Thin prep Papanicolaou smear with manual screening 6 5-15 [facility] Work Phone: Absolute lymphocyte counton 08-23-2022 Lymphocytes Auto (Unsp spec) [#/Vol] 3.63 10*3/uL 0.83-4.51 [facility] Work Phone: Basophil percentageon 2021 Basophils/100 WBC (Bld) 0.2 % 0-1 [facility] Work Phone: Chloride [Moles/Vol] 111 mmol/L 98-107 [facility] Work Phone: Eosinophils/100 WBC (Bld) 0.6 % 0-5 [facility] Work Phone: Glucose [Mass/Vol] 117 mg/dL 74-106 [facility] Work Phone: Comment on above: Fasting Glucose resu lt from 100 to 125 mg/dL suggests IMPAIRED HOMEOSTASIS per A.D.A. criteria. Neutrophils (Bld) [#/Vol] 6.3 10*3/uL 2.0-7.7 [facility] Work Phone: Neutrophils/100 WBC (Bld) 54.3 % 47-70 [facility] Work Phone: Potassium [Moles/Vol] 3.3 mmol/L 3.5-5.1 [facility] Work [facility]: Sodium [Moles/Vol] 137 mmol/L 136-145 [facility]: WBC (Bld) [#/Vol] 11.7 10*3/uL 4.4-11.0 [facility] Work Phone: Blood erythrocytes count (nu mber/volume)on 08-23-2022 RBC (Bld) [#/Vol] 4.91 10*6/uL 4.2-5.4 [facility] Work Phone: Blood hemoglobin measurement (mass/volume)on 08-23-2022 Hemoglobin (Bld) [Mass/Vol] 16.1 g/dL 12.0-15.0 [facility] Work Phone: Blood lymphocytes/100 leukoc yteson 08-23-2022 Lymphocytes/100 WBC (Bld) 31.1 % 19-41 [facility] Work Phone: Blood manual differential co mment interpretation (narrative result)on 08-23-2022 Manual differential comment Fortunato (Bld) [Interp] SCANNED [facility] Work Phone: Blood monocytes/100 leukocyt eson 08-23-2022 Monocytes/100 WBC (Bld) 13.2 % 0-10 [facility] Work Phone: Blood platelet mean volumeon 08-23-2022 Platelet mean volume (Bld) [Entitic vol] 10.4 fL 6.2-12.0 [facility] Work Phone: Determination of erythrocyte mean corpuscular volume (MCV)on 08-23-2022 MCV (RBC) [Entitic vol] 98.2 fL 81-99 [facility] Work Phone: Hematocrit Auto (Bld) [Volum e fraction]on 08-23-2022 Hematocrit (Bld) [Volume fraction] 48.2 % 37-47 [facility] Work Phone: [phone] Laboratory - Chemistry and C hemistry - challengeon 08-23-2022 Magnesium [Mass/Vol] 2.5 mg/dL 1.6-2.6 [facility] Work Phone: [phone] CO2 [Moles/Vol] 16.0 mmol/L 21.0-32.0 [facility] Work Phone: [phone] Natriuretic peptide B (Bld) [Mass/Vol] 9.8 pg/mL 0-100 [facility] Work Phone: [phone] Urea nitrogen/Creatinine [Mass ratio] 34.6 mg/mg 10-20 [facility] Work Phone: [phone] Laboratory - Hematology and Cell countson 08-23-2022 Erythrocyte distribution width (RBC) [Entitic vol] 51.9 fL 35.1-43.9 [facility] Work Phone: [phone] Erythrocyte distribution width (RBC) [Ratio] 14.5 % 11.6-14.6 [facility] Work Phone: [phone] Immature granulocytes/100 WBC (Bld) 0.600 % 0.0-0.9 [facility] Work Phone: [phone] Comment on above: IG% - Immature Granu locytes (promyelocytes, myelocytes and metamyelocytes) > 1% indicates that a LEFT SHIFT is Present. MCH (RBC) [Entitic mass] 32.8 pg 27.0-32.0 [facility] Work Phone: [phone] Nucleated RBC/100 WBC (Bld) [Ratio] 0 % 0-5 [facility] Work Phone: [phone] MCHC Auto (RBC) [Mass/Vol]on 08-23-2022 MCHC (RBC) [Mass/Vol] 33.4 g/dL 32-36 [facility] Work Phone: [phone] Panel Informationon 08-23 Estimated Creatinine Clearance Calc 38.82 ml/min [facility] Work Phone: Estimated GFR (MDRD) Amer 40 mL/min >60 [facility] Work Phone: Comment on above: GFR Calc Estimated GFR (MDRD) Non-Af Amer 33 mL/min >60 [facility] Work Phone: Comment on above: Non- GFR Calc Troponin I High Sensitivity 12 pg/mL 3.0-54.0 [facility] Work Phone: Comment on above: Please Note: New Emily t Units and Gender Specific Reference Ranges. For more information see Policy Stat Procedure [place] High Sensitivity Troponin (TNIH) and attachments. Platelets bldon 08-23-2022 Platelets (Bld) [#/Vol] 362 10*3/uL 150-450 [facility] Work Phone: Review by pathologiston Pathologist review Fortunato (Unsp spec) [Interp] Tiana hernandez [facility] Work Phone: Pathologist review Fortunato (Unsp spec) [Interp] Reviewed [facility] Work Phone: Comment on above: Previous reported re sult: Tiana hernandez Edited by: RGOPAULINE on 08/24/22:0488Leukocytosis and PolycythemiaClinical correlation necessary.Mahesh Delacruz M.D. 08/24/22 AMENDED REPORT 08/24/22 [id number] PATH REV previously reported as: Tiana hernandez Serum or plasma calcium bri urement (mass/volume)on 08-23-2022 Calcium [Mass/Vol] 8.7 mg/dL 8.5-10.1 [facility] Work Phone: Serum or plasma creatinine m easurement (mass/volume)on 08-23-2022 Creatinine [Mass/Vol] 1.62 mg/dL 0.55-1.02 [facility] Work Phone: Comment on above: The validity of the calculated GFR & GFRAA in patients over 70 years has not been determined. Clinical correlation is essential. Serum or plasma urea nitroge n measurement (mass/volume)on 08-23-2022 Urea nitrogen [Mass/Vol] 56 mg/dL 7-18 [facility] Work Phone: Serum procalcitonin measurem enton 08-23-2022 Procalcitonin [Mass/Vol] 0.11 ng/mL 0.00-0.09 [facility] Work Phone: Comment on above: A procalcitonin (PCT ) level above 2.0 ng/mL on the first day of ICU admission is associated with a high risk for progression to severe sepsis and/or septic shock. A PCT level below 0.5 ng/mL on the first day of ICU admission is associated with a low risk for progression to severe and/or septic shock. Note: Concentrations <0.5 ng/mL do not exclude an infection on account of localized infections (without systemic signs) which can be associated with such low concentrations, or a systemic infection in its initial stages (<6 hours). Furthermore, increased procalcitonin can occur without infection. PCT concentrations between 0.5 and 2.0 ng/mL should be interpreted taking into account the patient's history. It is recommended to retest PCT within 6-24 hours if any concentrations <2 ng/mL are obtained. Thin prep Papanicolaou smear with manual screeningon 08-23-2022 Thin prep Papanicolaou smear with manual screening 02-01 [facility] Work Phone: Bacteria identified Aer cx N om (Unsp spec)Ordered By: Ubaldo Dawson on 08-18-2022 [facility] Glucose (Bld) [Mass/Vol]on 10-18-2021 Glucose [Mass/Vol] 105 mg/dL High 65 - 99 mg/dL [facility] Interpretation and review of laboratory results Abnormal [facility] Glucose [Mass/Vol] 77 mg/dL 65 - 99 mg/dL [facility] Interpretation and review of laboratory results Normal [facility] Urine Aerobic CultureOrdered By: Ubaldo Dawson on 08-18-2022 Bacteria identified Aer cx Nom (Unsp spec) < 10,000 CFU/mL of normal urogenital microbiota [facility] Basic metabolic 1998 panelon 08-17-2022 Anion gap [Moles/Vol] 15 mmol/L 10 - 2 0 mmol/L [facility] Chloride [Moles/Vol] 107 mmol/L 98 - 10 8 mmol/L [facility] Creatinine [Mass/Vol] 0.87 mg/dL 0.60 - 1.20 mg/dL [facility] GFR/1.73 sq M.predicted CKD-EPI (S/P/Bld) [Vol rate/Area] 71 - PINF [facility] Comment on above: Estimated GFR was ca lculated using the 2020 CKD-EPI creatinine equation. Glucose [Mass/Vol] 103 mg/dL High 65 - 99 mg/dL [facility] HCO3 [Moles/Vol] 22 mmol/L 21 - 32 mmol/L [facility] Interpretation and review of laboratory results Abnormal [facility] Potassium [Moles/Vol] 4.5 mmol/L 3.5 - 5.1 mmol/L [facility] Sodium [Moles/Vol] 139 mmol/L 135 - 145 mmol/L [facility] Urea nitrogen [Mass/Vol] 22 mg/dL 8 - 25 mg/dL [facility] Urea nitrogen/Creatinine [Mass ratio] 25.3 mg/mg High 10.0 - 20.0 [facility] Laborator y Services has implemented the eGFR calculation approach that does not have a coefficient for race that conforms to the NKF-ASN Task Force Recommendations. [facility] CBC Auto Differentialon 07-22 Basophils (Bld) [#/Vol] 0.01 10*3/uL [facility] Basophils/100 WBC (Bld) 0.1 % [facility] Eosinophils (Bld) [#/Vol] 0.01 10*3/uL [facility] Eosinophils/100 WBC (Bld) 0.1 % [facility] Erythrocyte distribution width (RBC) [Entitic vol] 14.6 % 11.6 - 14.8 % [facility] Hematocrit (Bld) [Volume fraction] 38.3 % 36.0 - 46.0 % [facility] Hemoglobin (Bld) [Mass/Vol] 12.9 g/dL 12.0 - 16.0 g/dL [facility] Immature granulocytes (Bld) [#/Vol] 0.03 10*3/uL [facility] Immature granulocytes/100 WBC (Bld) 0.30 % [facility] Comment on above: The IG parameter is the percentage of metamyelocytes, myelocytes and promyelocytes. An immature granulocyte count (IG) of 1% or more suggests the possibility of infection, an IG count of 3% is very likely related to an infection. Interpretation and review of laboratory results Abnormal [facility] Lymphocytes (Bld) [#/Vol] 2.54 10*3/uL [facility] Lymphocytes/100 WBC (Bld) 22.0 % [facility] MCH (RBC) [Entitic mass] 33.7 pg 26.0 - 34.0 pg [facility] MCHC (RBC) [Mass/Vol] 33.7 g/dL 31.0 - 37.0 g/dL [facility] MCV (RBC) [Entitic vol] 100.0 fL 80.0 - 100.0 fL [facility] Monocytes (Bld) [#/Vol] 0.48 10*3/uL [facility] Monocytes/100 WBC (Bld) 4.2 % [facility] Neutrophils (Bld) [#/Vol] 8.45 10*3/uL High [facility] Neutrophils/100 WBC (Bld) 73.3 % [facility] Nucleated RBC (Bld) [#/Vol] 0.02 10*3/uL High [facility] Nucleated RBC/100 WBC (Bld) [Ratio] 0.2 % [facility] Platelet mean volume (Bld) [Entitic vol] 10.7 fL 9.4 - 12.4 fL [facility] Platelets (Bld) [#/Vol] 253 10*3/uL [facility] RBC (Bld) [#/Vol] 3.83 10*6/uL Low [facility] WBC (Bld) [#/Vol] 11.52 10*3/uL High [facility] Glucose (Bld) [Mass/Vol]on 10-17-2021 Glucose [Mass/Vol] 156 mg/dL High 65 - 99 mg/dL [facility] Interpretation and review of laboratory results Abnormal [facility] Glucose [Mass/Vol] 134 mg/dL High 65 - 99 mg/dL [facility] Interpretation and review of laboratory results Abnormal [facility] Glucose [Mass/Vol] 96 mg/dL 65 - 99 mg/dL [facility] Interpretation and review of laboratory results Normal [facility] Glucose [Mass/Vol] 100 mg/dL High 65 - 99 mg/dL [facility] Interpretation and review of laboratory results Abnormal [facility] UrinalysisOrdered By: Sagar Jiménez on 08-17-2022 Bacteria Auto Ql (U) None Seen None Se en /hpf [facility] Bilirubin Ql (U) Negative Negative [facility] Refract[facility] automated (U) Clear Clear [facility] Color (U) Colorless Colorless, Yellow [facility] Glucose Auto test strip (U) [Mass/Vol] Negative Negative mg/dL [facility] Hemoglobin Auto test strip Ql (U) Negative Negative [facility] Interpretation and review of laboratory results Normal [facility] Ketones (U) [Mass/Vol] Negative Negat rebecca mg/dL [facility] Leukocyte esterase Auto test strip Ql (U) Negative Negative [facility] Mucus Auto (Urine sed) [#/Area] Rare None Seen, Rare /lpf [facility] Nitrite Auto test strip Ql (U) Negative Negative [facility] pH (U) 5.0 [pH] 5.0 - 7.0 [facility] Protein (U) [Mass/Vol] Negative Negat rebecca mg/dL [facility] RBC Auto (Urine sed) [#/Area] 1 [facility] Specific gravity (U) [Rel density] 1.007 1.005 - 1.025 [facility] Urobilinogen (U) [Mass/Vol] mg/dL NINF - 2.0 mg/dL [facility] WBC Auto (Urine sed) [#/Area] 2 [facility] Microscopic examinat ion is performed on all urinalysis samples and only positive findings are reported. The test for blood on the chemical analytic portion of urinalysis may also be positive due to hemoglobinuria and myoglobinuria and if red blood cells are present they are quantified by microscopic examination. [facility] Basic metabolic 1998 panelon 08-16-2022 Anion gap [Moles/Vol] 15 mmol/L 10 - 2 0 mmol/L [facility] Chloride [Moles/Vol] 110 mmol/L High 98 - 10 8 mmol/L [facility] Creatinine [Mass/Vol] 0.83 mg/dL 0.60 - 1.20 mg/dL [facility] GFR/1.73 sq M.predicted CKD-EPI (S/P/Bld) [Vol rate/Area] 75 - PINF [facility] Comment on above: Estimated GFR was ca lculated using the 2020 CKD-EPI creatinine equation. Glucose [Mass/Vol] 247 mg/dL High 65 - 99 mg/dL [facility] HCO3 [Moles/Vol] 18 mmol/L Low 21 - 32 mmol/L [facility] Interpretation and review of laboratory results Abnormal [facility] Potassium [Moles/Vol] 4.0 mmol/L 3.5 - 5.1 mmol/L [facility] Sodium [Moles/Vol] 139 mmol/L 135 - 145 mmol/L [facility] Urea nitrogen [Mass/Vol] 19 mg/dL 8 - 25 mg/dL [facility] Urea nitrogen/Creatinine [Mass ratio] 22.9 mg/mg High 10.0 - 20.0 [facility] Laborator y Services has implemented the eGFR calculation approach that does not have a coefficient for race that conforms to the NKF-ASN Task Force Recommendations. [facility] CBC panel Auto (Bld)on 08-16 Erythrocyte distribution width (RBC) [Entitic vol] 14.6 % 11.6 - 14.8 % [facility] Hematocrit (Bld) [Volume fraction] 41.5 % 36.0 - 46.0 % [facility] Hemoglobin (Bld) [Mass/Vol] 13.7 g/dL 12.0 - 16.0 g/dL [facility] Interpretation and review of laboratory results Abnormal [facility] MCH (RBC) [Entitic mass] 33.1 pg 26.0 - 34.0 pg [facility] MCHC (RBC) [Mass/Vol] 33.0 g/dL 31.0 - 37.0 g/dL [facility] MCV (RBC) [Entitic vol] 100.2 fL High 80.0 - 100.0 fL [facility] Nucleated RBC (Bld) [#/Vol] 0.00 10*3/uL [facility] Nucleated RBC/100 WBC (Bld) [Ratio] 0.0 % [facility] Platelet mean volume (Bld) [Entitic vol] 10.6 fL 9.4 - 12.4 fL [facility] Platelets (Bld) [#/Vol] 226 10*3/uL [facility] RBC (Bld) [#/Vol] 4.14 10*6/uL [facility] WBC (Bld) [#/Vol] 14.11 10*3/uL High [facility] Glucose (Bld) [Mass/Vol]on 10-16-2021 Glucose [Mass/Vol] 204 mg/dL High 65 - 99 mg/dL [facility] Interpretation and review of laboratory results Abnormal [facility] Glucose [Mass/Vol] 200 mg/dL High 65 - 99 mg/dL [facility] Interpretation and review of laboratory results Abnormal [facility] Glucose [Mass/Vol] 117 mg/dL High 65 - 99 mg/dL [facility] Interpretation and review of laboratory results Abnormal [facility] COVID-19, MOLECULARon 2021 SARS-CoV-2 (COVID-19) Ab IA Ql Not detected Normal Not Detected [facility] Comment on above: Result Comment: This test was performed under the FDA's Emergency Use Authorization (EUA). Testing was performed using the [employer] ID NOW COVID-19 assay on the ID NOW platform. This test has not been approved for use in asymptomatic patients and its performance in this patient population has not been evaluated. Negative results do not rule out the presence of SARS-CoV-2/COVID-19. Fact sheets for the EUA can be found at the following links: For Healthcare Providers: https://www.fda.gov/media/805315/download For Patients: https://www.fda.gov/media/481264/download Performed By: #### L [id number] #### [facility] [address], [place] [address] Janneth Monge, Ph.d. [id number] CT CHEST ABDOMEN PELVIS WITH OUT CONTRASTon 08-15-2022 CT CHEST ABDOMEN PELVIS WITHOUT CONTRAST EXAMINATION: CT CHEST ABDOMEN PELVIS WITHOUT CONTRAST HISTORY: ORDERING SYSTEM PROVIDED HISTORY: Sepsis, TECHNOLOGIST PROVIDED HISTORY: Illness/Other Reason for exam: Sepsis Encounter Type: Initial Additional signs and symptoms: - ORDERING SYSTEM PROVIDED DIAGNOSIS CODES: COMPARISON: None TECHNIQUE: CT examination of the chest, abdomen and pelvis without IV contrast. Coronal and sagittal reformations were performed. Dose reduction techniques were achieved by using automated exposure control and/or adjustment of mA and/or kV according to patient size and/or use of iterative reconstruction technique. FINDINGS: Exam limited by motion artifact. Chest: There is a left chest port present with catheter tip at the cavoatrial junction. Atherosclerotic calcification of the normal caliber thoracic aorta and its branches. Normal heart size without pericardial effusion. Coronary artery calcifications. The main pulmonary arteries are dilated, suggestive of underlying pulmonary hypertension. Small hiatal hernia. No intrathoracic lymphadenopathy. Evaluation of the lung parenchyma significantly limited by motion artifact. No dense airspace consolidation, pleural effusion, or pneumothorax. No acute osseous abnormalities. Abdomen and pelvis: Diffusely decreased attenuation of the liver, compatible with hepatic steatosis. Status post cholecystectomy. The spleen and pancreas are atrophic. The adrenal glands appear unremarkable. 3.4 cm fluid attenuating mass in the posterior left kidney, likely a benign cyst. No hydronephrosis or nephrolithiasis. Postsurgical changes from prior bowel resection with a right lower quadrant ostomy. No bowel obstruction. Several bowel loops are directly adjacent to the anterior abdominal wall, suggestive of adhesions. Evaluation of the pelvis is limited by streak artifact from the hip prosthesis. The uterus is either atrophic or surgically absent. Urinary bladder is not well seen. Infrarenal IVC filter is present. Atherosclerotic calcification of the normal caliber abdominal aorta and its branches. No free air or free fluid. Left hip prosthesis. No acute osseous abnormalities. IMPRESSION: 1. Study limited by motion and streak artifact. No acute process in the abdomen or pelvis. 2. Dilation of the main pulmonary arteries, suggestive of underlying pulmonary hypertension. 3. Coronary artery calcifications. 4. Hiatal hernia. 5. Hepatic steatosis. Workstation ID: [id number] Dictated by: MANDI SEO on [facility] Aug 15, 2022 3:52:03 PM EST Transcribed by: MANDI SEO on [facility] Aug 15, 2022 3:52:03 PM EST Finalized by: MANDI SEO on [facility] Aug 15, 2022 3:52:03 PM EST [facility] Comment on above: Order Comment: Injur y/Trauma or Illness?:Illness/Other How long have you had these symptoms (acute/chronic)?:Acute Reason for exam?:Sepsis Type of Exam?:Initial Additional signs and symptoms?:- XR CHEST PA/APon 08-15-2022 XR CHEST PA/AP EXAMINATION: XR CHEST PA/AP 08/15/2022 1:14 pm HISTORY: ORDERING SYSTEM PROVIDED HISTORY: dyspnea, TECHNOLOGIST PROVIDED HISTORY: Illness/Other Reason for exam: dyspnea Cancer History: yes Surgery, RadiationHistory: yes Encounter Type: Initial Additional signs and symptoms: - ORDERING SYSTEM PROVIDED DIAGNOSIS CODES: COMPARISON: None. FINDINGS: Heart and vascularity are unremarkable. Lungs are free of focal infiltrates. Infusion catheter is noted with the tip over the superior vena cava. IMPRESSION: No acute heart or lung disease identified. Workstation ID: [id number] Dictated by: ARMAND MOSER on [facility] Aug 15, 2022 1:36:57 PM EST Transcribed by: ARMAND MOSER on [facility] Aug 15, 2022 1:36:57 PM EST Finalized by: ARMAND MOSER on [facility] Aug 15, 2022 1:36:57 PM [facility] Comment on above: Order Comment: Injur y/Trauma or Illness?:Illness/Other How long have you had these symptoms (acute/chronic)?:Acute Reason for exam?:dyspnea History of cancer?:yes Surgeries, chemotherapy, or radiation?:yes Type of Exam?:Initial Additional signs and symptoms?:- Absolute lymphocyte counton 08-12-2022 Lymphocytes Auto (Unsp spec) [#/Vol] 3.71 10*3/uL 0.83-4.51 [facility] Work Phone: Basophil percentageon 2021 Basophils/100 WBC (Bld) 0.5 % 0-1 [facility] Work Phone: Chloride [Moles/Vol] 106 mmol/L 98-107 [facility] Work Phone: Eosinophils/100 WBC (Bld) 2.0 % 0-5 [facility] Work Phone: Glucose [Mass/Vol] 146 mg/dL 74-106 [facility] Work Phone: Comment on above: Fasting Glucose resu lt greater than or equal to 126 mg/dL suggests DIABETES MELLITUS per A.D.A. criteria. Neutrophils (Bld) [#/Vol] 3.6 10*3/uL 2.0-7.7 [facility] Work Phone: Neutrophils/100 WBC (Bld) 41.4 % 47-70 [facility] Work Phone: Potassium [Moles/Vol] 3.6 mmol/L 3.5-5.1 [facility] Work Phone: Sodium [Moles/Vol] 138 mmol/L 136-145 [facility] Work Phone: WBC (Bld) [#/Vol] 8.6 10*3/uL 4.4-11.0 [facility] Work Phone: Blood erythrocytes count (nu mber/volume)on 08-12-2022 RBC (Bld) [#/Vol] 3.98 10*6/uL 4.2-5.4 [facility] Work Phone: Blood hemoglobin measurement (mass/volume)on 08-12-2022 Hemoglobin (Bld) [Mass/Vol] 14.4 g/dL 12.0-15.0 [facility] Work Phone: Blood lymphocytes/100 leukoc yteson 08-12-2022 Lymphocytes/100 WBC (Bld) 42.9 % 19-41 [facility] Work Phone: [phone] Blood monocytes/100 leukocyt eson 08-12-2022 Monocytes/100 WBC (Bld) 13.0 % 0-10 [facility] Work Phone: Blood platelet mean volumeon 08-12-2022 Platelet mean volume (Bld) [Entitic vol] 10.1 fL 6.2-12.0 [facility] Work Phone: Determination of erythrocyte mean corpuscular volume (MCV)on 08-12-2022 MCV (RBC) [Entitic vol] 99.7 fL 81-99 [facility] Work Phone: Hematocrit Auto (Bld) [Volum e fraction]on 08-12-2022 Hematocrit (Bld) [Volume fraction] 39.7 % 37-47 [facility] Work Phone: Laboratory - Chemistry and C hemistry - challengeon 08-12-2022 CO2 [Moles/Vol] 24.0 mmol/L 21.0-32.0 [facility] Work Phone: Urea nitrogen/Creatinine [Mass ratio] 27.0 mg/mg 10-20 [facility] Work Phone: Laboratory - Hematology and Cell countson 08-12-2022 Erythrocyte distribution width (RBC) [Entitic vol] 53.0 fL 35.1-43.9 [facility] Work Phone: Erythrocyte distribution width (RBC) [Ratio] 14.5 % 11.6-14.6 [facility] Work Phone: Immature granulocytes/100 WBC (Bld) 0.200 % 0.0-0.9 [facility] Work Phone: Comment on above: IG% - Immature Granu locytes (promyelocytes, myelocytes and metamyelocytes) > 1% indicates that a LEFT SHIFT is Present. MCH (RBC) [Entitic mass] 36.2 pg 27.0-32.0 [facility] Work Phone: Nucleated RBC/100 WBC (Bld) [Ratio] 0 % 0-5 [facility] Work Phone: [phone] MCHC Auto (RBC) [Mass/Vol]on 08-12-2022 MCHC (RBC) [Mass/Vol] 36.3 g/dL 32-36 [facility] Work Phone: No Panel Informationon 08-12 Estimated Creatinine Clearance Calc 64.82 ml/min [facility] Work Phone: Estimated GFR (MDRD) Amer 77 mL/min >60 [facility] Work Phone: Comment on above: GFR Calc Estimated GFR (MDRD) Non-Af Amer 63 mL/min >60 [facility] Work Phone: Comment on above: Non- GFR Calc Platelets bldon 08-12-2022 Platelets (Bld) [#/Vol] 222 10*3/uL 150-450 [facility] Work Phone: Serum or plasma calcium bri urement (mass/volume)on 08-12-2022 Calcium [Mass/Vol] 8.7 mg/dL 8.5-10.1 [facility] Work Phone: [phone] Serum or plasma creatinine m easurement (mass/volume)on 08-12-2022 Creatinine [Mass/Vol] 0.93 mg/dL 0.55-1.02 [facility] Work Phone: Comment on above: The validity of the calculated GFR & GFRAA in patients over 70 years has not been determined. Clinical correlation is essential. Serum or plasma urea nitroge n measurement (mass/volume)on 08-12-2022 Urea nitrogen [Mass/Vol] 25 mg/dL 7-18 [facility] Work Phone: Thin prep Papanicolaou smear with manual screeningon 08-12-2022 Thin prep Papanicolaou smear with manual screening 8 -15 [facility] Work Phone: Absolute lymphocyte counton 06-18-2022 Lymphocytes Auto (Unsp spec) [#/Vol] 3.18 10*3/uL 0.83-4.51 [facility] Work Phone: Basophil percentageon 2021 Basophils/100 WBC (Bld) 0.5 % 0-1 [facility] Work Phone: Bilirubin [Mass/Vol] 0.30 mg/dL 0.20-1.00 [facility] Work Phone: Comment on above: For patients on eltr ombopag therapy, use of Dim[employer] [place] TBIL is not recommended. Chloride [Moles/Vol] 106 mmol/L 98-107 [facility] Work Phone: Eosinophils/100 WBC (Bld) 3.7 % 0-5 [facility] Work Phone: Glucose [Mass/Vol] 104 mg/dL 74-106 [facility] Work Phone: Comment on above: Fasting Glucose resu lt from 100 to 125 mg/dL suggests IMPAIRED HOMEOSTASIS per A.D.A. criteria. Lactate [Moles/Vol] 0.8 mmol/L 0.4-2.0 [facility] Work Phone: Neutrophils (Bld) [#/Vol] 5.1 10*3/uL 2.0-7.7 [facility] Work Phone: Neutrophils/100 WBC (Bld) 51.7 % 47-70 [facility] Work Phone: Potassium [Moles/Vol] 3.6 mmol/L 3.5-5.1 [facility] Work Phone: Protein [Mass/Vol] 7.0 g/dL 6.4-8.2 [facility] Work Phone: [phone] Sodium [Moles/Vol] 140 mmol/L 136-145 [facility] Work Phone: [phone] WBC (Bld) [#/Vol] 9.8 10*3/uL 4.4-11.0 [facility] Work Phone: [phone] Blood erythrocytes count (nu mber/volume)on 06-18-2022 RBC (Bld) [#/Vol] 3.73 10*6/uL 4.2-5.4 [facility] Work Phone: [phone] Blood hemoglobin measurement (mass/volume)on 06-18-2022 Hemoglobin (Bld) [Mass/Vol] 12.7 g/dL 12.0-15.0 [facility] Work Phone: [phone] Blood lymphocytes/100 leukoc yteson 06-18-2022 Lymphocytes/100 WBC (Bld) 32.3 % 19-41 [facility] Work Phone: [phone] Blood monocytes/100 leukocyt eson 06-18-2022 Monocytes/100 WBC (Bld) 11.4 % 0-10 [facility] Work Phone: [phone] Blood platelet mean volumeon 06-18-2022 Platelet mean volume (Bld) [Entitic vol] 10.5 fL 6.2-12.0 [facility] Work Phone: [phone] Determination of erythrocyte mean corpuscular volume (MCV)on 06-18-2022 MCV (RBC) [Entitic vol] 103.5 fL 81-99 [facility] Work Phone: [phone] Hematocrit Auto (Bld) [Volum e fraction]on 06-18-2022 Hematocrit (Bld) [Volume fraction] 38.6 % 37-47 [facility] Work Phone: [phone] Laboratory - Chemistry and C hemistry - challengeon 06-18-2022 ALP [Catalytic activity/Vol] 104 U/L 45-117 [facility] Work Phone: [phone] ALT [Catalytic activity/Vol] 35 U/L 13-56 [facility] Work Phone: CO2 [Moles/Vol] 26.0 mmol/L 21.0-32.0 [facility] Work Phone: [phone] Globulin (S) [Mass/Vol] 3.9 g/dL 2.2-4.2 [facility] Work Phone: [phone] Urea nitrogen/Creatinine [Mass ratio] 24.6 mg/mg 10-20 [facility] Work Phone: [phone] Laboratory - Hematology and Cell countson 06-18-2022 Erythrocyte distribution width (RBC) [Entitic vol] 58.4 fL 35.1-43.9 [facility] Work Phone: [phone] Erythrocyte distribution width (RBC) [Ratio] 15.4 % 11.6-14.6 [facility] Work Phone: [phone] Immature granulocytes/100 WBC (Bld) 0.400 % 0.0-0.9 [facility] Work Phone: [phone] Comment on above: IG% - Immature Granu locytes (promyelocytes, myelocytes and metamyelocytes) > 1% indicates that a LEFT SHIFT is Present. MCH (RBC) [Entitic mass] 34.0 pg 27.0-32.0 [facility] Work Phone: [phone] Nucleated RBC/100 WBC (Bld) [Ratio] 0 % 0-5 [facility] Work Phone: [phone] MCHC Auto (RBC) [Mass/Vol]on 06-18-2022 MCHC (RBC) [Mass/Vol] 32.9 g/dL 32-36 [facility] Work Phone: [phone] Panel Informationon 06-18 Estimated Creatinine Clearance Calc 70.25 ml/min [facility] Work Phone: [phone] Estimated GFR (MDRD) Amer 89 mL/min >60 [facility] Work Phone: [phone] Comment on above: GFR Calc Estimated GFR (MDRD) Non-Af Amer 74 mL/min >60 [facility] Work Phone: [phone] Comment on above: Non- GFR Calc Platelets bldon 06-18-2022 Platelets (Bld) [#/Vol] 248 10*3/uL 150-450 [facility] Work Phone: Serum or plasma albumin bri urement (mass/volume)on 06-18-2022 Albumin [Mass/Vol] 3.1 g/dL 3.2-5.0 [facility] Work Phone: Serum or plasma albumin/glob ulin mass ratioon 06-18-2022 Albumin/Globulin [Mass ratio] 0.8 {ratio} 0.9-2.4 [facility] Work Phone: Serum or plasma calcium bri urement (mass/volume)on 06-18-2022 Calcium [Mass/Vol] 8.9 mg/dL 8.5-10.1 [facility] Work Phone: Serum or plasma creatinine m easurement (mass/volume)on 06-18-2022 Creatinine [Mass/Vol] 0.81 mg/dL 0.55-1.02 [facility] Work Phone: Comment on above: The validity of the calculated GFR & GFRAA in patients over 70 years has not been determined. Clinical correlation is essential. Serum or plasma urea nitroge n measurement (mass/volume)on 06-18-2022 Urea nitrogen [Mass/Vol] 20 mg/dL 7-18 [facility] Work Phone: Thin prep Papanicolaou smear with manual screeningon 06-18-2022 Thin prep Papanicolaou smear with manual screening 29 U/L 15-37 [facility] Work Phone: Thin prep Papanicolaou smear with manual screening 8 5-15 [facility] Work Phone: AUGUST SCREENINGon 06-17-2022 [facility] CBC W Auto Differential pane l (Bld)on 06-11-2022 Abs Immature Gran <0.10 k/uL [facility] Basophils (Bld) [#/Vol] 0.07 10*3/uL <0.11 k/uL [facility] Basophils/100 WBC (Bld) 0.8 % C [facility] Differential cell count method Nom (Bld) Auto [facility] Eosinophils (Bld) [#/Vol] 0.19 10*3/uL <0.46 k/uL [facility] Eosinophils/100 WBC (Bld) 2.1 % [facility] Erythrocyte distribution width (RBC) [Ratio] 15.2 % High 11.5 - 15.0 % [facility] Hematocrit (Bld) [Volume fraction] 38.5 % 36.0 - 46.0 % [facility] Hemoglobin (Bld) [Mass/Vol] 12.8 g/dL 11.5 - 15.5 g/dL [facility] Immature Gran % 0.2 % [facility] Lymphocytes (Bld) [#/Vol] 4.14 10*3/uL High 1.00 - 4.00 k/uL [facility] Lymphocytes/100 WBC (Bld) 46.1 % [facility] MCH (RBC) [Entitic mass] 34.3 pg High 26.0 - 34.0 pg [facility] MCHC (RBC) [Mass/Vol] 33.2 g/dL 30.5 - 36.0 g/dL [facility] MCV (RBC) [Entitic vol] 103.2 fL High 80.0 - 100.0 fL [facility] Monocytes (Bld) [#/Vol] 1.05 10*3/uL High <0.87 k/uL [facility] Monocytes/100 WBC (Bld) 11.7 % C [facility] Neutrophils (Bld) [#/Vol] 3.52 10*3/uL 1.45 - 7.50 k/uL [facility] Neutrophils/100 WBC (Bld) 39.1 % [facility] Nucleated RBC (Bld) [#/Vol] <0.01 k/uL [facility] Nucleated RBC/100 WBC (Bld) [Ratio] 0.0 /100 WBC [facility] Platelet mean volume (Bld) [Entitic vol] 10.5 fL 9.0 - 12.7 fL [facility] Platelets (Bld) [#/Vol] 280 10*3/uL 150 - 400 k/uL [facility] RBC (Bld) [#/Vol] 3.73 10*6/uL Low 3.90 - 5.2 0 m/uL [facility] WBC (Bld) [#/Vol] 8.99 10*3/uL 3.70 - 11.00 k/uL [facility] Comprehensive metabolic 2000 panelon 06-11-2022 Albumin [Mass/Vol] 4.1 g/dL 3.9 - 4.9 g/dL [facility] ALP [Catalytic activity/Vol] 99 U/L 34 - 123 U/L [facility] ALT [Catalytic activity/Vol] 22 U/L 7 - 38 U/L [facility] Anion gap [Moles/Vol] 13 mmol/L 9 - 18 mmol/L [facility] AST [Catalytic activity/Vol] 27 U/L 13 - 35 U/L [facility] Bilirubin [Mass/Vol] 0.3 mg/dL 0.2 - 1 .3 mg/dL [facility] Calcium [Mass/Vol] 9.2 mg/dL 8.5 - 10. 2 mg/dL [facility] [facility] Chloride [Moles/Vol] 107 mmol/L High 97 - 10 5 mmol/L [facility] CO2 [Moles/Vol] 21 mmol/L Low 22 - 30 mmol/L [facility] Creatinine [Mass/Vol] 0.90 mg/dL 0.58 - 0.96 mg/dL [facility] Estimated Glomerular Filtration Rate 68 mL/min/1.73m >=60 mL/min/1.73 m [facility] Glucose [Mass/Vol] 96 mg/dL 74 - 99 mg/dL [facility] Potassium [Moles/Vol] 4.2 mmol/L 3.7 - 5.1 mmol/L [facility] Protein [Mass/Vol] 7.0 g/dL 6.3 - 8.0 g/dL [facility] Sodium [Moles/Vol] 141 mmol/L 136 - 144 mmol/L [facility] Urea nitrogen [Mass/Vol] 23 mg/dL High 7 - 21 mg/dL [facility] CBC W Auto Differential pane l (Bld)on 06-04-2022 Abs Immature Gran 0.04 k/uL <0.10 k/uL [facility] Basophils (Bld) [#/Vol] 0.05 10*3/uL <0.11 k/uL [facility] Basophils/100 WBC (Bld) 0.6 % [facility] Differential cell count method Nom (Bld) Auto [facility] Eosinophils (Bld) [#/Vol] 0.22 10*3/uL <0.46 k/uL [facility] Eosinophils/100 WBC (Bld) 2.6 % [facility] Erythrocyte distribution width (RBC) [Ratio] 15.0 % 11.5 - 15.0 % [facility] Hematocrit (Bld) [Volume fraction] 35.9 % Low 36.0 - 46.0 % [facility] Hemoglobin (Bld) [Mass/Vol] 11.8 g/dL 11.5 - 15.5 g/dL [facility] Immature Gran % 0.5 % [facility] Lymphocytes (Bld) [#/Vol] 3.69 10*3/uL 1.00 - 4.00 k/uL [facility] Lymphocytes/100 WBC (Bld) 43.1 % [facility] MCH (RBC) [Entitic mass] 34.1 pg High 26.0 - 34.0 pg [facility] MCHC (RBC) [Mass/Vol] 32.9 g/dL 30.5 - 36.0 g/dL [facility] MCV (RBC) [Entitic vol] 103.8 fL High 80.0 - 100.0 fL [facility] Monocytes (Bld) [#/Vol] 0.98 10*3/uL High <0.87 k/uL [facility] Monocytes/100 WBC (Bld) 11.4 % [facility] Neutrophils (Bld) [#/Vol] 3.58 10*3/uL 1.45 - 7.50 k/uL [facility] Neutrophils/100 WBC (Bld) 41.8 % [facility] Nucleated RBC (Bld) [#/Vol] <0.01 k/uL [facility] Nucleated RBC/100 WBC (Bld) [Ratio] 0.0 /100 WBC [facility] Platelet mean volume (Bld) [Entitic vol] 9.9 fL 9.0 - 12.7 fL [facility] Platelets (Bld) [#/Vol] 347 10*3/uL 150 - 400 k/uL [facility] RBC (Bld) [#/Vol] 3.46 10*6/uL Low 3.90 - 5.2 0 m/uL [facility] WBC (Bld) [#/Vol] 8.56 10*3/uL 3.70 - 11.00 k/uL [facility] Abs Immature Gran 0.04 k/uL <0.10 k/uL [facility] Basophils (Bld) [#/Vol] 0.08 10*3/uL <0.11 k/uL [facility] Basophils/100 WBC (Bld) 0.9 % [facility] Differential cell count method Nom (Bld) Auto [facility] Eosinophils (Bld) [#/Vol] 0.24 10*3/uL <0.46 k/uL [facility] Eosinophils/100 WBC (Bld) 2.7 % [facility] Erythrocyte distribution width (RBC) [Ratio] 15.1 % High 11.5 - 15.0 % [facility] Hematocrit (Bld) [Volume fraction] 36.8 % 36.0 - 46.0 % [facility] Hemoglobin (Bld) [Mass/Vol] 12.1 g/dL 11.5 - 15.5 g/dL [facility] Immature Gran % 0.4 % [facility] Lymphocytes (Bld) [#/Vol] 4.82 10*3/uL High 1.00 - 4.00 k/uL [facility] Lymphocytes/100 WBC (Bld) 53.9 % [facility] MCH (RBC) [Entitic mass] 33.9 pg 26.0 - 34.0 pg [facility] MCHC (RBC) [Mass/Vol] 32.9 g/dL 30.5 - 36.0 g/dL [facility] MCV (RBC) [Entitic vol] 103.1 fL High 80.0 - 100.0 fL [facility] Monocytes (Bld) [#/Vol] 0.99 10*3/uL High <0.87 k/uL [facility] Monocytes/100 WBC (Bld) 11.1 % [facility] Neutrophils (Bld) [#/Vol] 2.77 10*3/uL 1.45 - 7.50 k/uL [facility] Neutrophils/100 WBC (Bld) 31.0 % [facility] Nucleated RBC (Bld) [#/Vol] <0.01 k/uL [facility] Nucleated RBC/100 WBC (Bld) [Ratio] 0.0 /100 WBC [facility] Platelet mean volume (Bld) [Entitic vol] 10.1 fL 9.0 - 12.7 fL [facility] Platelets (Bld) [#/Vol] 354 10*3/uL 150 - 400 k/uL [facility] RBC (Bld) [#/Vol] 3.57 10*6/uL Low 3.90 - 5.2 0 m/uL [facility] WBC (Bld) [#/Vol] 8.94 10*3/uL 3.70 - 11.00 k/uL [facility] Comprehensive metabolic 2000 panelon 06-04-2022 Albumin [Mass/Vol] 3.7 g/dL Low 3.9 - 4.9 g/dL [facility] ALP [Catalytic activity/Vol] 95 U/L 34 - 123 U/L [facility] ALT [Catalytic activity/Vol] 15 U/L 7 - 38 U/L [facility] Anion gap [Moles/Vol] 11 mmol/L 9 - 18 mmol/L [facility] AST [Catalytic activity/Vol] 20 U/L 13 - 35 U/L [facility] Bilirubin [Mass/Vol] 0.2 mg/dL 0.2 - 1 .3 mg/dL [facility] Calcium [Mass/Vol] 9.0 mg/dL 8.5 - 10. 2 mg/dL [facility] Chloride [Moles/Vol] 107 mmol/L High 97 - 10 5 mmol/L [facility] CO2 [Moles/Vol] 21 mmol/L Low 22 - 30 mmol/L [facility] Creatinine [Mass/Vol] 0.87 mg/dL 0.58 - 0.96 mg/dL [facility] Estimated Glomerular Filtration Rate 71 mL/min/1.73m >=60 mL/min/1.73 m [facility] Glucose [Mass/Vol] 83 mg/dL 74 - 99 mg/dL [facility] Potassium [Moles/Vol] 3.7 mmol/L 3.7 - 5.1 mmol/L [facility] Protein [Mass/Vol] 6.8 g/dL 6.3 - 8.0 g/dL [facility] Sodium [Moles/Vol] 139 mmol/L 136 - 144 mmol/L [facility] Urea nitrogen [Mass/Vol] 26 mg/dL High 7 - 21 mg/dL [facility] MAGNESIUM BLDon 06-04-2022 Magnesium [Mass/Vol] 1.8 mg/dL 1.7 - 2 .3 mg/dL [facility] Basophil percentageon 2021 Basophil percentage 0 SEEN /hpf 0-5 [facility] Work Phone: Bilirubin Test strip Ql (U)o n 05-25-2022 Bilirubin Ql (U) Negative Negative [facility] Work Phone: Ketones Test strip Ql (U)on 05-25-2022 Ketones Ql (U) Negative Negative [facility] Work Phone: Laboratory - Chemistry and C hemistry - challengeon 05-25-2022 Bilirubin Ql (U) Negative [facility] Work Phone: Glucose Ql (U) Negative [facility] Work Phone: Ketones Ql (U) Trace (5) [facility] Work Phone: pH (U) 5.0 [pH] [facility] Work Phone: Specific gravity (U) [Rel density] 1.010 [facility] Work Phone: Urobilinogen (U) [Mass/Vol] Negative [facility] Work Phone: Laboratory - Hematology and Cell countson 05-25-2022 Hemoglobin Ql (U) Negative [facility] Work Phone: Laboratory - Specimen inform ationon 05-25-2022 Clarity (U) Clear [facility] Work Phone: Color (U) ORANGE [facility] Work Phone: Laboratory - Urinalysison Nitrite Ql (U) Negative [facility] Work Phone: Protein Ql (U) Negative [facility] Work Phone: Mucus LM Ql (Urine sed)on Mucus Ql (Urine sed) 0 SEEN /hpf [facility] Work Phone: Nitrite Test strip Ql (U)on 05-25-2022 Nitrite Ql (U) Positive Negative [facility] Work Phone: No Panel Informationon 05-25 Urine Leukocytes Negatve [facility] Work Phone: Urine Non-Hemolyzed Blood Negative [facility] Work Phone: Protein Test strip Ql (U)on 05-25-2022 Protein Ql (U) Negative Negative [facility] Work Phone: Squamous epithelial cells de tection in urine sediment by light microscopyon 05-25-2022 Epithelial cells.squamous LM Ql (Urine sed) 0-5 SEEN /hpf 5-10 [facility] Work Phone: Urine blood detectionon RBC Ql (U) Negative Negative [facility] Work Phone: RBC Ql (U) 0 SEEN /hpf 0-5 [facility] Work Phone: Urine clarityon 05-25-2022 Clarity (U) Clear Clear [facility] Work Phone: Urine color determinationon 05-25-2022 Color (U) Yellow Yellow [facility] Work Phone: Urine glucose detectionon Glucose Ql (U) Normal mg/dl Normal [facility] Work Phone: Urine leukocyte esterase det ection by dipstickon 05-25-2022 Leukocyte esterase Test strip Ql (U) Negative Negative [facility] Work Phone: Urine pHon 05-25-2022 pH (U) 6.0 [pH] 5.0 - 8.0 [facility] Work Phone: Urine sediment bacteria coun t by microscopy (number/high power field)on 05-25-2022 Bacteria LM.HPF (Urine sed) [#/Area] RARE /hpf None Seen [facility] Work Phone: Urine specific gravity measu rementon 05-25-2022 Specific gravity (U) [Rel density] 1.010 1.002-1.030 [facility] Work Phone: Urobilinogen Auto test strip Ql (U)on 05-25-2022 Urobilinogen Ql (U) Normal mg/dl Normal [facility] Work Phone: .Auto Diffon 05-20-2022 Basophil, Absolute 0.1 10 3/mcL Normal 0.0-0.2 [facility] ([place]) Basophils/100 WBC (Bld) 1.2 % Normal 0.0-2.5 A [facility] ([place]) Eosinophil, Absolute 0.3 10 3/mcL Normal 0.0-0.4 [facility] ([place]) Eosinophils/100 WBC (Bld) 2.4 % Normal 0.0-7.0 [facility] ([place]) Lymphocyte, Absolute 4.2 10 3/mcL High 0.8-3.9 [facility] ([place] Lymphocytes/100 WBC (Bld) 39.3 % Normal 10.0-50.0 [facility] ([place] Monocyte, Absolute 1.4 10 3/mcL High 0.2-1.0 [facility] ([place] Monocytes/100 WBC (Bld) 12.7 % Normal 1.7-13.0 [facility] ([place]) Neutrophils/100 WBC (Bld) 44.4 % Normal 37.0-80.0 [facility] ([place]) .GFRon 05-20-2022 GFR Non- 51 ml/min/1.73sqm Normal [facility] ([place]) Comment on above: Result Comment: GFR Population mean for , Non- Americans Ages 20-29 = 116 mL/min/1.73 sq.m. Ages 30-39 = 107 mL/min/1.73 sq.m. Ages 40-49 = 99 mL/min/1.73 sq.m. Ages 50-59 = 93 mL/min/1.73 sq.m. Ages 60-69 = 85 mL/min/1.73 sq.m. Ages 70+ = 75 mL/min/1.73 sq.m. Chronic Kidney Disease: Less than 60 mL/min/1.73 square meters End Stage Renal Disease: Less than 15 mL/min/1.73 square meters Performed By: #### A PTT, BMP, GFR, MG ####[id number] [place], [place] [address] GFR 62 ml/min/1.73sqm Normal [facility] ([place]) Comment on above: Result Comment: GFR Population mean for , Non- Americans Ages 20-29 = 116 mL/min/1.73 sq.m. Ages 30-39 = 107 mL/min/1.73 sq.m. Ages 40-49 = 99 mL/min/1.73 sq.m. Ages 50-59 = 93 mL/min/1.73 sq.m. Ages 60-69 = 85 mL/min/1.73 sq.m. Ages 70+ = 75 mL/min/1.73 sq.m. Chronic Kidney Disease: Less than 60 mL/min/1.73 square meters End Stage Renal Disease: Less than 15 mL/min/1.73 square meters Performed By: #### A PTT, BMP, GFR, MG ####[place] [address] [place], [place] [address] .NEUABSon 05-20-2022 Neutrophil, Absolute 4.7 10 3/mcL Normal 2.9-6.2 [facility] ([place]) APTTon 05-20-2022 aPTT Coag (Bld) [Time] 113.0 s Criticall y abnormal 24.8-33.3 [facility] ([place]) Comment on above: Result Comment: For Heparin anticoagulation therapy, the recommended therapeutic range is: 53.6-87.4 seconds (1.5 - 2.5 the normal plasma mean). Patients on heparin therapy may have an extreme result. Performed By: #### A PTT, BMP, GFR, MG ####[place] [address] [place], [place] [address] Heparin dose (APTT) Heparin IV Normal [facility] ([place]) Comment on above: Performed By: #### A PTT, BMP, GFR, MG ####[place] [id number] [place], [place] [address] BMPon 05-20-2022 BUN/Creatinine Ratio 15 ratio Normal 7-27 [facility]) Comment on above: Performed By: #### A PTT, BMP, GFR, MG ####[place] [address] [place], [place] [address] Calcium [Mass/Vol] 8.5 mg/dL Normal 8.4-10.2 [facility] Comment on above: Performed By: #### A PTT, BMP, GFR, MG ####[address] [place], [place] [address] Chloride [Moles/Vol] 103 mmol/L Normal 98-107 [facility] ([place]) Comment on above: Performed By: #### A PTT, BMP, GFR, MG ####[address] [place], [place] [address] CO2 [Moles/Vol] 26 mmol/L Normal 23-31 [facility] ([place]) Comment on above: Performed By: #### A PTT, BMP, GFR, MG ####[address] [place], [place] [address] Creatinine [Mass/Vol] 1.06 mg/dL High 0.55-1.02 [facility] ([place]) Comment on above: Performed By: #### A PTT, BMP, GFR, MG ####[address] [place], [place] [address] Electrolyte Balance 8.0 mEq/L Normal 4.0-15.0 [facility] ([place]) Comment on above: Performed By: #### A PTT, BMP, GFR, MG ####[address] [place], [place] [address] Glucose [Mass/Vol] 104 mg/dL Normal 83-110 [facility] ([place]) Comment on above: Performed By: #### A PTT, BMP, GFR, MG ####[address] [place], [place] [address] Potassium [Moles/Vol] 4.4 mmol/L Normal 3.5-5.1 [facility] ([place]) Comment on above: Performed By: #### A PTT, BMP, GFR, MG ####[address] [place], [place] [address] Sodium [Moles/Vol] 137 mmol/L Normal 136-145 [facility] ([place]) Comment on above: Performed By: #### A PTT, BMP, GFR, MG ####[address] [place], [place] [address] Urea nitrogen [Mass/Vol] 16 mg/dL Normal 7-18 [facility] ([place]) Comment on above: Performed By: #### A PTT, BMP, GFR, MG ####[address] [place], [place] [address] CBCon 05-20-2022 Erythrocyte distribution width (RBC) [Ratio] 13.8 % Normal 11.5-14.5 [facility] ([place]) Hematocrit (Bld) [Volume fraction] 33.5 % Low 37.0-47.0 [facility] ([place]) Hgb 11.6 G/dL Low 12.0-16.0 [facility] ([place]) MCH (RBC) [Entitic mass] 35.4 pg High 27.0-31.2 [facility] ([place]) MCHC 34.6 G/dL Normal 33.0-37.0 [facility] ([place]) MCV (RBC) [Entitic vol] 102.3 fL High 80.0-94.0 A [facility] ([place]) Platelet 184 10 3/mcL Normal 130-400 [facility] ([place]) Platelet mean volume (Bld) [Entitic vol] 9.0 fL Normal 7.4-10.4 [facility]) RBC 3.28 10 6/mcL Low 4.20-5.40 [facility] ([place]) WBC 10.7 10 3/mcL Normal 4.6-10.8 [facility]) LABORATORYOrdered By: Shayy Miller on 05-20-2022 aPTT Coag (Bld) [Time] 113.0 s Invalid Interpretation Code 24.8 - 33.3 seconds AO Coag SS Basophil, Absolute 0.1 103/mcL Invalid Interpretation Code 0.0 - 0.2 10^3/mcL AO Workflow SS Basophils/100 WBC (Bld) 1.2 % Invalid Interpretation Code 0.0 - 2.5 % AO Workflow SS Eosinophil, Absolute 0.3 103/mcL Invalid Interpretation Code 0.0 - 0.4 10^3/mcL AO Workflow SS Eosinophils/100 WBC (Bld) 2.4 % Invalid Interpretation Code 0.0 - 7.0 % AO Workflow SS Erythrocyte distribution width (RBC) [Ratio] 13.8 % Invalid Interpretation Code 11.5 - 14.5 % AO Workflow SS Hematocrit (Bld) [Volume fraction] 33.5 % Invalid Interpretation Code 37.0 - 47.0 % AO Workflow SS Hemoglobin (Bld) [Mass/Vol] 11.6 G/dL Invalid Interpretation Code 12.0 - 16.0 G/dL AO Workflow SS Heparin dose (APTT) Heparin IV (05/20/22 5:26 AM) Invalid Interpretation Code AO Coag SS Lymphocyte, Absolute 4.2 103/mcL Invalid Interpretation Code 0.8 - 3.9 10^3/mcL AO Workflow SS Lymphocytes/100 WBC (Bld) 39.3 % Invalid Interpretation Code 10.0 - 50.0 % AO Workflow SS MCH (RBC) [Entitic mass] 35.4 pg Invalid Interpretation Code 27.0 - 31.2 pg AO Workflow SS MCHC 34.6 G/dL Invalid Interpretation Code 33.0 - 37.0 G/dL AO Workflow SS MCV (RBC) [Entitic vol] 102.3 fL Invalid Interpretation Code 80.0 - 94.0 fL AO Workflow SS Monocyte, Absolute 1.4 103/mcL Invalid Interpretation Code 0.2 - 1.0 10^3/mcL AO Workflow SS Monocytes/100 WBC (Bld) 12.7 % Invalid Interpretation Code 1.7 - 13.0 % AO Workflow SS Neutrophil, Absolute 4.7 103/mcL Invalid Interpretation Code 2.9 - 6.2 10^3/mcL AO Workflow SS Neutrophils/100 WBC (Bld) 44.4 % Invalid Interpretation Code 37.0 - 80.0 % AO Workflow SS Platelet mean volume (Bld) [Entitic vol] 9.0 fL Invalid Interpretation Code 7.4 - 10.4 fL AO Workflow SS Platelets (Bld) [#/Vol] 184 103/mcL Invalid Interpretation Code 130 - 400 10^3/mcL AO Workflow SS RBC (Bld) [#/Vol] 3.28 106/mcL Invalid Interpretation Code 4.20 - 5.40 10^6/mcL AO Workflow SS WBC 10.7 103/mcL Invalid Interpretation Code 4.6 - 10.8 10^3/mcL AO Workflow SS LABORATORYOrdered By: Ginny Coronel on 05-20-2022 Calcium [Mass/Vol] 8.5 mg/dL Invalid Interpretation Code 8.4 - 10.2 mg/dL AO ADM SS Chloride [Moles/Vol] 103 mmol/L Invalid Interpretation Code 98 - 107 mmol/L AO ADM SS CO2 [Moles/Vol] 26 mmol/L Invalid Interpretation Code 23 - 31 mmol/L AO ADM SS Creatinine [Mass/Vol] 1.06 mg/dL Invalid Interpretation Code 0.55 - 1.02 mg/dL AO ADM SS Electrolyte Balance 8.0 mEq/L Invalid Interpretation Code 4.0 - 15.0 mEq/L AO ADM SS Glucose [Mass/Vol] 104 mg/dL Invalid Interpretation Code 83 - 110 mg/dL AO ADM SS Magnesium [Mass/Vol] 2.1 mg/dL Invalid Interpretation Code 1.8 - 2.4 mg/dL AO ADM SS Potassium [Moles/Vol] 4.4 mmol/L Invalid Interpretation Code 3.5 - 5.1 mmol/L AO ADM SS Sodium [Moles/Vol] 137 mmol/L Invalid Interpretation Code 136 - 145 mmol/L AO ADM SS Urea nitrogen [Mass/Vol] 16 mg/dL Invalid Interpretation Code 7 - 18 mg/dL AO ADM SS Urea nitrogen/Creatinine [Mass ratio] 15 ratio Invalid Interpretation Code 7 - 27 ratio AO ADM SS LABORATORYOrdered By: SYSTEM SYSTEM on 05-20-2022 GFR 62 ml/min/1.73sqm Invalid Interpretation Code AO Chemistry S GFR Non- 51 ml/min/1.73sqm Invalid Interpretation Code AO Chemistry S MGon 05-20-2022 Magnesium [Mass/Vol] 2.1 mg/dL Normal 1.8-2.4 [facility] ([place]) Comment on above: Performed By: #### A PTT, BMP, GFR, MG ####[address] [place] [id number] .Auto Diffon 05-19-2022 Basophil, Absolute 0.0 10 3/mcL Normal 0.0-0.2 [facility] ([place]) Basophils/100 WBC (Bld) 0.2 % Normal 0.0-2.5 A [facility] ([place]) Eosinophil, Absolute 0.2 10 3/mcL Normal 0.0-0.4 [facility] ([place]) Eosinophils/100 WBC (Bld) 1.8 % Normal 0.0-7.0 [facility] ([place]) Lymphocyte, Absolute 4.5 10 3/mcL High 0.8-3.9 [facility] ([place] Lymphocytes/100 WBC (Bld) 35.5 % Normal 10.0-50.0 [facility] ([place] Monocyte, Absolute 1.6 10 3/mcL High 0.2-1.0 [facility] ([place]) Monocytes/100 WBC (Bld) 13.0 % Normal 1.7-13.0 A [facility] ([place]) Neutrophils/100 WBC (Bld) 49.5 % Normal 37.0-80.0 [facility] ([place]) .GFRon 05-19-2022 GFR 74 ml/min/1.73sqm Normal [facility] ([place]) Comment on above: Result Comment: GFR Population mean for , Non- Americans Ages 20-29 = 116 mL/min/1.73 sq.m. Ages 30-39 = 107 mL/min/1.73 sq.m. Ages 40-49 = 99 mL/min/1.73 sq.m. Ages 50-59 = 93 mL/min/1.73 sq.m. Ages 60-69 = 85 mL/min/1.73 sq.m. Ages 70+ = 75 mL/min/1.73 sq.m. Chronic Kidney Disease: Less than 60 mL/min/1.73 square meters End Stage Renal Disease: Less than 15 mL/min/1.73 square meters Performed By: #### B MP, GFR, MG ####[id number] [place], [place] [address] GFR Non- 61 ml/min/1.73sqm Normal [facility] ([place]) Comment on above: Result Comment: GFR Population mean for , Non- Americans Ages 20-29 = 116 mL/min/1.73 sq.m. Ages 30-39 = 107 mL/min/1.73 sq.m. Ages 40-49 = 99 mL/min/1.73 sq.m. Ages 50-59 = 93 mL/min/1.73 sq.m. Ages 60-69 = 85 mL/min/1.73 sq.m. Ages 70+ = 75 mL/min/1.73 sq.m. Chronic Kidney Disease: Less than 60 mL/min/1.73 square meters End Stage Renal Disease: Less than 15 mL/min/1.73 square meters Performed By: #### B MP, GFR, MG ####[address] [place], [place] [address] .NEUABSon 05-19-2022 Neutrophil, Absolute 6.3 10 3/mcL High 2.9-6.2 [facility] ([place]) APTTon 05-19-2022 aPTT Coag (Bld) [Time] 75.0 s High 24.8-33.3 [facility] ([place]) Comment on above: Result Comment: For Heparin anticoagulation therapy, the recommended therapeutic range is: 53.6-87.4 seconds (1.5 - 2.5 the normal plasma mean). Patients on heparin therapy may have an extreme result. Performed By: #### A PTT ####[id number] [place], [place] [address] Heparin dose (APTT) Heparin IV Normal [facility] ([place]) Comment on above: Performed By: #### A PTT ####[address] [place], [place] [address] aPTT Coag (Bld) [Time] 77.3 s High 24.8-33.3 [facility] ([place]) Comment on above: Result Comment: For Heparin anticoagulation therapy, the recommended therapeutic range is: 53.6-87.4 seconds (1.5 - 2.5 the normal plasma mean). Patients on heparin therapy may have an extreme result. Performed By: #### A PTT ####[id number] [place], [place] [address] Heparin dose (APTT) Heparin IV Normal [facility] ([place]) Comment on above: Performed By: #### A PTT ####[address] [place], [place] [address] aPTT Coag (Bld) [Time] 84.7 s High 24.8-33.3 [facility] ([place]) Comment on above: Result Comment: For Heparin anticoagulation therapy, the recommended therapeutic range is: 53.6-87.4 seconds (1.5 - 2.5 the normal plasma mean). Patients on heparin therapy may have an extreme result. Performed By: #### A PTT ####[address] [place], [place] [address] Heparin dose (APTT) Heparin IV Normal [facility] ([place]) Comment on above: Performed By: #### A PTT ####[address] [place], [place] [address] aPTT Coag (Bld) [Time] 85.2 s High 24.8-33.3 [facility] ([place]) Comment on above: Result Comment: For Heparin anticoagulation therapy, the recommended therapeutic range is: 53.6-87.4 seconds (1.5 - 2.5 the normal plasma mean). Patients on heparin therapy may have an extreme result. Performed By: #### A PTT ####[address] [place], [place] [address] Heparin dose (APTT) Heparin IV Normal [facility] ([place]) Comment on above: Performed By: #### A PTT ####[address] [place], [place] [address] BMPon 05-19-2022 BUN/Creatinine Ratio 19 ratio Normal 7-27 [facility] ([place]) Comment on above: Performed By: #### B MP, GFR, MG ####[address] [place], [place] [address] Calcium [Mass/Vol] 7.7 mg/dL Low 8.4-10.2 [facility] ([place]) Comment on above: Performed By: #### B MP, GFR, MG ####[address] [place], [place] [address] Chloride [Moles/Vol] 100 mmol/L Normal 98-107 [facility] ([place]) Comment on above: Performed By: #### B MP, GFR, MG ####[address] [place], [place] [address] CO2 [Moles/Vol] 25 mmol/L Normal 23-31 [facility] ([place]) Comment on above: Performed By: #### B MP, GFR, MG ####[address] [place], [place] [address] Creatinine [Mass/Vol] 0.91 mg/dL Normal 0.55-1.02 [facility] ([place]) Comment on above: Performed By: #### B MP, GFR, MG ####[address] [place], [place] [address] Electrolyte Balance 8.0 mEq/L Normal 4.0-15.0 [facility] ([place]) Comment on above: Performed By: #### B MP, GFR, MG ####[address] [place], [place] [address] Glucose [Mass/Vol] 106 mg/dL Normal 83-110 [facility] ([place]) Comment on above: Performed By: #### B MP, GFR, MG ####[address] [place], [place] [address] Potassium [Moles/Vol] 3.6 mmol/L Normal 3.5-5.1 [facility] ([place]) Comment on above: Performed By: #### B MP, GFR, MG ####[address] [place], [place] [address] Sodium [Moles/Vol] 133 mmol/L Low 136-145 [facility] ([place]) Comment on above: Performed By: #### B MP, GFR, MG ####[address] [place], [place] [address] Urea nitrogen [Mass/Vol] 17 mg/dL Normal 7-18 [facility] ([place]) Comment on above: Performed By: #### B MP, GFR, MG ####[address] [place], [place] [address] CBCon 05-19-2022 Erythrocyte distribution width (RBC) [Ratio] 13.8 % Normal 11.5-14.5 [facility] ([place]) Hematocrit (Bld) [Volume fraction] 33.4 % Low 37.0-47.0 [facility] ([place]) Hgb 11.4 G/dL Low 12.0-16.0 [facility] ([place]) MCH (RBC) [Entitic mass] 34.7 pg High 27.0-31.2 [facility] ([place]) MCHC 34.0 G/dL Normal 33.0-37.0 [facility] ([place]) MCV (RBC) [Entitic vol] 102.1 fL High 80.0-94.0 A [facility] ([place]) Platelet 154 10 3/mcL Normal 130-400 [facility]) Platelet mean volume (Bld) [Entitic vol] 9.0 fL Normal 7.4-10.4 [facility]) RBC 3.27 10 6/mcL Low 4.20-5.40 [facility] ([place]) WBC 12.7 10 3/mcL High 4.6-10.8 [facility]) LABORATORYOrdered By: Ginny Coronel on 05-19-2022 aPTT Coag (Bld) [Time] 75.0 s Invalid Interpretation Code 24.8 - 33.3 seconds AO Coag SS Heparin dose (APTT) Heparin IV (05/19/22 7:19 PM) Invalid Interpretation Code AO Coag SS LABORATORYOrdered By: Alexi Cabezas on 05-19-2022 Glucose [Mass/Vol] 109 mg/dL Invalid Interpretation Code 82 - 115 mg/dL [facility] Work Phone: LABORATORYOrdered By: Bertha Mobley on 05-19-2022 aPTT Coag (Bld) [Time] 77.3 s Invalid Interpretation Code 24.8 - 33.3 seconds AO Coag SS Heparin dose (APTT) Heparin IV (05/19/22 10:09 AM) Invalid Interpretation Code AO Coag SS LABORATORYOrdered By: Damián Castro on 05-19-2022 Basophil, Absolute 0.0 103/mcL Invalid Interpretation Code 0.0 - 0.2 10^3/mcL AO Workflow SS Basophils/100 WBC (Bld) 0.2 % Invalid Interpretation Code 0.0 - 2.5 % AO Workflow SS Calcium [Mass/Vol] 7.7 mg/dL Invalid Interpretation Code 8.4 - 10.2 mg/dL AO ADM SS Chloride [Moles/Vol] 100 mmol/L Invalid Interpretation Code 98 - 107 mmol/L AO ADM SS CO2 [Moles/Vol] 25 mmol/L Invalid Interpretation Code 23 - 31 mmol/L AO ADM SS Creatinine [Mass/Vol] 0.91 mg/dL Invalid Interpretation Code 0.55 - 1.02 mg/dL AO ADM SS Electrolyte Balance 8.0 mEq/L Invalid Interpretation Code 4.0 - 15.0 mEq/L AO ADM SS Eosinophil, Absolute 0.2 103/mcL Invalid Interpretation Code 0.0 - 0.4 10^3/mcL AO Workflow SS Eosinophils/100 WBC (Bld) 1.8 % Invalid Interpretation Code 0.0 - 7.0 % AO Workflow SS Erythrocyte distribution width (RBC) [Ratio] 13.8 % Invalid Interpretation Code 11.5 - 14.5 % AO Workflow SS Glucose [Mass/Vol] 106 mg/dL Invalid Interpretation Code 83 - 110 mg/dL AO ADM SS Hematocrit (Bld) [Volume fraction] 33.4 % Invalid Interpretation Code 37.0 - 47.0 % AO Workflow SS Hemoglobin (Bld) [Mass/Vol] 11.4 G/dL Invalid Interpretation Code 12.0 - 16.0 G/dL AO Workflow SS Lymphocyte, Absolute 4.5 103/mcL Invalid Interpretation Code 0.8 - 3.9 10^3/mcL AO Workflow SS Lymphocytes/100 WBC (Bld) 35.5 % Invalid Interpretation Code 10.0 - 50.0 % AO Workflow SS Magnesium [Mass/Vol] 1.9 mg/dL Invalid Interpretation Code 1.8 - 2.4 mg/dL AO ADM SS MCH (RBC) [Entitic mass] 34.7 pg Invalid Interpretation Code 27.0 - 31.2 pg AO Workflow SS MCHC 34.0 G/dL Invalid Interpretation Code 33.0 - 37.0 G/dL AO Workflow SS MCV (RBC) [Entitic vol] 102.1 fL Invalid Interpretation Code 80.0 - 94.0 fL AO Workflow SS Monocyte, Absolute 1.6 103/mcL Invalid Interpretation Code 0.2 - 1.0 10^3/mcL AO Workflow SS Monocytes/100 WBC (Bld) 13.0 % Invalid Interpretation Code 1.7 - 13.0 % AO Workflow SS Neutrophil, Absolute 6.3 103/mcL Invalid Interpretation Code 2.9 - 6.2 10^3/mcL AO Workflow SS Neutrophils/100 WBC (Bld) 49.5 % Invalid Interpretation Code 37.0 - 80.0 % AO Workflow SS Platelet mean volume (Bld) [Entitic vol] 9.0 fL Invalid Interpretation Code 7.4 - 10.4 fL AO Workflow SS Platelets (Bld) [#/Vol] 154 103/mcL Invalid Interpretation Code 130 - 400 10^3/mcL AO Workflow SS Potassium [Moles/Vol] 3.6 mmol/L Invalid Interpretation Code 3.5 - 5.1 mmol/L AO ADM SS RBC (Bld) [#/Vol] 3.27 106/mcL Invalid Interpretation Code 4.20 - 5.40 10^6/mcL AO Workflow SS Sodium [Moles/Vol] 133 mmol/L Invalid Interpretation Code 136 - 145 mmol/L AO ADM SS Urea nitrogen [Mass/Vol] 17 mg/dL Invalid Interpretation Code 7 - 18 mg/dL AO ADM SS Urea nitrogen/Creatinine [Mass ratio] 19 ratio Invalid Interpretation Code 7 - 27 ratio AO ADM SS WBC 12.7 103/mcL Invalid Interpretation Code 4.6 - 10.8 10^3/mcL AO Workflow SS Hemoglobin.gastrointest inal Ql (Stl) Negative (05/19/22 3:06 AM) Invalid Interpretation Code Negative AO Rapid Testing SS LABORATORYOrdered By: SYSTEM SYSTEM on 05-19-2022 GFR 74 ml/min/1.73sqm Invalid Interpretation Code AO Chemistry S GFR Non- 61 ml/min/1.73sqm Invalid Interpretation Code AO Chemistry S MGon 05-19-2022 Magnesium [Mass/Vol] 1.9 mg/dL Normal 1.8-2.4 [facility] ([place]) Comment on above: Performed By: #### B MP, GFR, MG ####[address] [place], [place] [address] OCC (LAB)on 05-19-2022 Occult Blood Fecal Negative Normal Negative [facility] ([place]) Comment on above: Performed By: #### O CC ####[address] [place], [place] [address] .Auto Diffon 05-18-2022 Basophil, Absolute 0.1 10 3/mcL Normal 0.0-0.2 [facility] ([place]) Comment on above: Performed By: #### A PTT, PRO, BMP, GFR #### [address] [place], [place] [address] Basophils/100 WBC (Bld) 0.6 % Normal 0.0-2.5 A [facility] ([place]) Comment on above: Performed By: #### A PTT, PRO, BMP, GFR #### [address] [address] Eosinophil, Absolute 0.1 10 3/mcL Normal 0.0-0.4 [facility] ([place]) Comment on above: Performed By: #### A PTT, PRO, BMP, GFR #### [address] [address] Eosinophils/100 WBC (Bld) 0.5 % Normal 0.0-7.0 [facility] ([place]) Comment on above: Performed By: #### A PTT, PRO, BMP, GFR #### [address] [address] Lymphocyte, Absolute 2.4 10 3/mcL Normal 0.8-3.9 [facility] ([place]) Comment on above: Performed By: #### A PTT, PRO, BMP, GFR #### [address] [address] Lymphocytes/100 WBC (Bld) 18.1 % Normal 10.0-50.0 [facility] ([place]) Comment on above: Performed By: #### A PTT, PRO, BMP, GFR #### [address] [address] Monocyte, Absolute 1.7 10 3/mcL High 0.2-1.0 [facility] ([place]) Comment on above: Performed By: #### A PTT, PRO, BMP, GFR #### [address] [address] Monocytes/100 WBC (Bld) 13.4 % High 1.7-13.0 A [facility] ([place]) Comment on above: Performed By: #### A PTT, PRO, BMP, GFR #### [address] [address] Neutrophils/100 WBC (Bld) 67.4 % Normal 37.0-80.0 [facility] ([place]) Comment on above: Performed By: #### A PTT, PRO, BMP, GFR #### [address] [place], [place] [address] .GFRon 05-18-2022 GFR 69 ml/min/1.73sqm Normal [facility] ([place]) Comment on above: Result Comment: GFR Population mean for , Non- Americans Ages 20-29 = 116 mL/min/1.73 sq.m. Ages 30-39 = 107 mL/min/1.73 sq.m. Ages 40-49 = 99 mL/min/1.73 sq.m. Ages 50-59 = 93 mL/min/1.73 sq.m. Ages 60-69 = 85 mL/min/1.73 sq.m. Ages 70+ = 75 mL/min/1.73 sq.m. Chronic Kidney Disease: Less than 60 mL/min/1.73 square meters End Stage Renal Disease: Less than 15 mL/min/1.73 square meters Performed By: #### A PTT, PRO, BMP, GFR ####[address] [place], [place] [address] GFR Non- 57 ml/min/1.73sqm Normal [facility] ([place]) Comment on above: Result Comment: GFR Population mean for , Non- Americans Ages 20-29 = 116 mL/min/1.73 sq.m. Ages 30-39 = 107 mL/min/1.73 sq.m. Ages 40-49 = 99 mL/min/1.73 sq.m. Ages 50-59 = 93 mL/min/1.73 sq.m. Ages 60-69 = 85 mL/min/1.73 sq.m. Ages 70+ = 75 mL/min/1.73 sq.m. Chronic Kidney Disease: Less than 60 mL/min/1.73 square meters End Stage Renal Disease: Less than 15 mL/min/1.73 square meters Performed By: #### A PTT, PRO, BMP, GFR ####[address] [place], [place] [address] .MDWon 05-18-2022 Monocyte Distribution Width 24.87 High 0.00-20.00 [facility] ([place]) Comment on above: Result Comment: For adults in ED, MDW>20.0 may be associated with a higher risk of sepsis during the first 12hrs of hospital admission Performed By: #### A PTT, PRO, BMP, GFR #### [address] [address] .NEUABSon 05-18-2022 Neutrophil, Absolute 8.8 10 3/mcL High 2.9-6.2 [facility]) Comment on above: Performed By: #### A PTT, PRO, BMP, GFR #### [address] [address] APTTon 05-18-2022 aPTT Coag (Bld) [Time] 35.6 s High 24.8-33.3 [facility]) Comment on above: Result Comment: For Heparin anticoagulation therapy, the recommended therapeutic range is: 53.6-87.4 seconds (1.5 - 2.5 the normal plasma mean). Patients on heparin therapy may have an extreme result. Performed By: #### A PTT, PRO, BMP, GFR #### [address] [address] Heparin dose (APTT) None Normal [facility] ([place]) Comment on above: Performed By: #### A PTT, PRO, BMP, GFR #### [address] [address] BMPon 05-18-2022 BUN/Creatinine Ratio 19 ratio Normal 7-27 [facility]) Comment on above: Performed By: #### A PTT, PRO, BMP, GFR #### [address] [address] Calcium [Mass/Vol] 8.4 mg/dL Normal 8.4-10.2 [facility]) Comment on above: Performed By: #### A PTT, PRO, BMP, GFR #### [address] [address] Chloride [Moles/Vol] 98 mmol/L Normal 98-107 [facility]) Comment on above: Performed By: #### A PTT, PRO, BMP, GFR #### [address] [address] CO2 [Moles/Vol] 24 mmol/L Normal 23-31 [facility] ([place]) Comment on above: Performed By: #### A PTT, PRO, BMP, GFR #### [address] [address] Creatinine [Mass/Vol] 0.96 mg/dL Normal 0.55-1.02 [facility] ([place]) Comment on above: Performed By: #### A PTT, PRO, BMP, GFR #### [address] [address] Electrolyte Balance 10.0 mEq/L Normal 4.0-15.0 [facility] ([place]) Comment on above: Performed By: #### A PTT, PRO, BMP, GFR #### [address] [address] Glucose [Mass/Vol] 106 mg/dL Normal 83-110 [facility] ([place]) Comment on above: Performed By: #### A PTT, PRO, BMP, GFR #### [address] [address] Potassium [Moles/Vol] 3.9 mmol/L Normal 3.5-5.1 [facility] ([place]) Comment on above: Performed By: #### A PTT, PRO, BMP, GFR #### [address] [address] Sodium [Moles/Vol] 132 mmol/L Low 136-145 [facility] ([place]) Comment on above: Performed By: #### A PTT, PRO, BMP, GFR #### [address] [address] Urea nitrogen [Mass/Vol] 18 mg/dL Normal 7-18 [facility] ([place]) Comment on above: Performed By: #### A PTT, PRO, BMP, GFR #### [address] [address] CBCon 05-18-2022 Erythrocyte distribution width (RBC) [Ratio] 13.4 % Normal 11.5-14.5 [facility] ([place]) Comment on above: Performed By: #### A PTT, PRO, BMP, GFR #### [address] [address] Hematocrit (Bld) [Volume fraction] 33.2 % Low 37.0-47.0 [facility] ([place]) Comment on above: Performed By: #### A PTT, PRO, BMP, GFR #### [place] [id number] Hgb 11.4 G/dL Low 12.0-16.0 [facility] ([place]) Comment on above: Performed By: #### A PTT, PRO, BMP, GFR #### [address] [address] MCH (RBC) [Entitic mass] 34.8 pg High 27.0-31.2 [facility] ([place]) Comment on above: Performed By: #### A PTT, PRO, BMP, GFR #### [place] [address] MCHC 34.2 G/dL Normal 33.0-37.0 [facility] ([place]) Comment on above: Performed By: #### A PTT, PRO, BMP, GFR #### [address] [address] MCV (RBC) [Entitic vol] 101.7 fL High 80.0-94.0 A [facility] ([place]) Comment on above: Performed By: #### A PTT, PRO, BMP, GFR #### [address] [address] Platelet 145 10 3/mcL Normal 130-400 [facility] ([place]) Comment on above: Performed By: #### A PTT, PRO, BMP, GFR #### [address] [address] Platelet mean volume (Bld) [Entitic vol] 8.5 fL Normal 7.4-10.4 [facility] ([place]) Comment on above: Performed By: #### A PTT, PRO, BMP, GFR #### [place] [address] [place], [place] [address] RBC 3.27 10 6/mcL Low 4.20-5.40 [facility] ([place]) Comment on above: Performed By: #### A PTT, PRO, BMP, GFR #### [place] [address] [place], [place] [address] WBC 13.0 10 3/mcL High 4.6-10.8 [facility] ([place]) Comment on above: Performed By: #### A PTT, PRO, BMP, GFR #### [place] [address] [address] [place], [place] [address] LABORATORYOrdered By: Aura Morrison on 05-18-2022 Basophil, Absolute 0.1 103/mcL Invalid Interpretation Code 0.0 - 0.2 10^3/mcL AO Workflow SS Basophils/100 WBC (Bld) 0.6 % Invalid Interpretation Code 0.0 - 2.5 % AO Workflow SS Eosinophil, Absolute 0.1 103/mcL Invalid Interpretation Code 0.0 - 0.4 10^3/mcL AO Workflow SS Eosinophils/100 WBC (Bld) 0.5 % Invalid Interpretation Code 0.0 - 7.0 % AO Workflow SS Erythrocyte distribution width (RBC) [Ratio] 13.4 % Invalid Interpretation Code 11.5 - 14.5 % AO Workflow SS Hematocrit (Bld) [Volume fraction] 33.2 % Invalid Interpretation Code 37.0 - 47.0 % AO Workflow SS Hemoglobin (Bld) [Mass/Vol] 11.4 G/dL Invalid Interpretation Code 12.0 - 16.0 G/dL AO Workflow SS Lymphocyte, Absolute 2.4 103/mcL Invalid Interpretation Code 0.8 - 3.9 10^3/mcL AO Workflow SS Lymphocytes/100 WBC (Bld) 18.1 % Invalid Interpretation Code 10.0 - 50.0 % AO Workflow SS MCH (RBC) [Entitic mass] 34.8 pg Invalid Interpretation Code 27.0 - 31.2 pg AO Workflow SS MCHC 34.2 G/dL Invalid Interpretation Code 33.0 - 37.0 G/dL AO Workflow SS MCV (RBC) [Entitic vol] 101.7 fL Invalid Interpretation Code 80.0 - 94.0 fL AO Workflow SS Monocyte distribution width Auto (Bld) [Entitic vol] 24.87 Invalid Interpretation Code 0.00 - 20.00 AO Workflow SS Comment on above: Result Comment: For adults in ED, MDW>20.0 may be associated with a higher risk of sepsis during the first 12hrs of hospital admission Monocyte, Absolute 1.7 103/mcL Invalid Interpretation Code 0.2 - 1.0 10^3/mcL AO Workflow SS Monocytes/100 WBC (Bld) 13.4 % Invalid Interpretation Code 1.7 - 13.0 % AO Workflow SS Neutrophil, Absolute 8.8 103/mcL Invalid Interpretation Code 2.9 - 6.2 10^3/mcL AO Workflow SS Neutrophils/100 WBC (Bld) 67.4 % Invalid Interpretation Code 37.0 - 80.0 % AO Workflow SS Platelet mean volume (Bld) [Entitic vol] 8.5 fL Invalid Interpretation Code 7.4 - 10.4 fL AO Workflow SS Platelets (Bld) [#/Vol] 145 103/mcL Invalid Interpretation Code 130 - 400 10^3/mcL AO Workflow SS RBC (Bld) [#/Vol] 3.27 106/mcL Invalid Interpretation Code 4.20 - 5.40 10^6/mcL AO Workflow SS WBC 13.0 103/mcL Invalid Interpretation Code 4.6 - 10.8 10^3/mcL AO Workflow SS Appearance (U) Clear (05/18/22 3:43 PM) Invalid Interpretation Code Clear AO Auto Urine SS Bilirubin Ql (U) Negative (05/18/22 3:43 PM) Invalid Interpretation Code Negative AO Auto Urine SS Color (U) Yellow (05/18/22 3:43 PM) Invalid Interpretation Code AO Auto Urine SS Glucose Test strip (U) [Mass/Vol] Negative Invalid Interpretation Code Negativemg/ dL AO Auto Urine SS Hemoglobin Auto test strip (U) [Mass/Vol] Trace *ABN* (05/18/22 3:43 PM) Invalid Interpretation Code Negative AO Auto Urine SS Ketones Ql (U) Negative Invalid Interpretation Code Negativemg/ dL AO Auto Urine SS UA Leuk Est Negative (05/18/22 3:43 PM) Invalid Interpretation Code Negative AO Auto Urine SS UA Nitrite Negative (05/18/22 3:43 PM) Invalid Interpretation Code Negative AO Auto Urine SS UA pH 6.0 (05/18/22 3:43 PM) Invalid Interpretation Code 5.0 - 8.0 AO Auto Urine SS UA Protein Negative Invalid Interpretation Code Negativemg/ dL AO Auto Urine SS UA Spec Grav 1.015 (05/18/22 3:43 PM) Invalid Interpretation Code 1.015-1.025 AO Auto Urine SS UA Specimen Type Void (05/18/22 3:43 PM) Invalid Interpretation Code AO Auto Urine SS UA Urobilinogen 0.2 E.U./dL Invalid Interpretation Code 0.2-1.0E.U. /dL AO Auto Urine SS LABORATORYOrdered By: Damián Bruce on 05-18-2022 Calcium [Mass/Vol] 8.4 mg/dL Invalid Interpretation Code 8.4 - 10.2 mg/dL AO ADM SS Chloride [Moles/Vol] 98 mmol/L Invalid Interpretation Code 98 - 107 mmol/L AO ADM SS CO2 [Moles/Vol] 24 mmol/L Invalid Interpretation Code 23 - 31 mmol/L AO ADM SS Creatinine [Mass/Vol] 0.96 mg/dL Invalid Interpretation Code 0.55 - 1.02 mg/dL AO ADM SS Electrolyte Balance 10.0 mEq/L Invalid Interpretation Code 4.0 - 15.0 mEq/L AO ADM SS Glucose [Mass/Vol] 106 mg/dL Invalid Interpretation Code 83 - 110 mg/dL AO ADM SS INR Coag (PPP) [Relative time] 1.1 {INR} Invalid Interpretation Code 0.9 - 1.2 ratio AO Coag SS Potassium [Moles/Vol] 3.9 mmol/L Invalid Interpretation Code 3.5 - 5.1 mmol/L AO ADM SS PT Coag (PPP) [Time] 12.3 s Invalid Interpretation Code 9.7 - 14.3 seconds AO Coag SS Sodium [Moles/Vol] 132 mmol/L Invalid Interpretation Code 136 - 145 mmol/L AO ADM SS Urea nitrogen [Mass/Vol] 18 mg/dL Invalid Interpretation Code 7 - 18 mg/dL AO ADM SS Urea nitrogen/Creatinine [Mass ratio] 19 ratio Invalid Interpretation Code 7 - 27 ratio AO ADM SS LABORATORYOrdered By: SYSTEM SYSTEM on 05-18-2022 GFR 69 ml/min/1.73sqm Invalid Interpretation Code AO Chemistry S GFR Non- 57 ml/min/1.73sqm Invalid Interpretation Code AO Chemistry S PROon 05-18-2022 INR Coag (PPP) [Relative time] 1.1 {INR} Normal 0.9-1.2 [facility] ([place]) Comment on above: Result Comment: Mason zengd Dose 2.0 - 3.0 High Dose 2.5 - 3.5 The recommended therapeutic range for oral anticoagulant therapy is: LOW RISK: Prophylaxis of venous thrombosis INR: 2.0 - 3.0 Treatment of pulmonary embolism 2.0 - 3.0 Prevention of systemic embolism 2.0 - 3.0 HIGH RISK: Mechanical prosthetic valves 2.5 - 3.5 Performed By: #### A PTT, PRO, BMP, GFR #### [address] [address] PT Coag (PPP) [Time] 12.3 s Normal 9.7-14.3 [facility] ([place]) Comment on above: Performed By: #### A PTT, PRO, BMP, GFR #### [address] [address] UAon 05-18-2022 Color (U) Yellow Normal [facility] ([place]) Comment on above: Performed By: #### U A ####[id number] [address] Glucose (U) [Mass/Vol] Negative Normal Negative [facility] ([place]) Comment on above: Performed By: #### U A ####[address] [address] Ketones Ql (U) Negative Normal Negative [facility] ([place]) Comment on above: Performed By: #### U A ####[address] [address] UA Appear Clear Normal Clear [facility] ([place]) Comment on above: Performed By: #### U A ####[address] [place], [place] [address] UA Blood Trace Abnormal Negative [facility] ([place]) Comment on above: Performed By: #### U A ####[address] [place], [place] [address] UA Leuk Est Negative Normal Negative [facility] ([place]) Comment on above: Performed By: #### U A ####[address] [place], [place] [address] UA Nitrite Negative Normal Negative [facility] ([place]) Comment on above: Performed By: #### U A ####[address] [place], [place] [address] UA pH 6.0 Normal 5.0 - 8.0 [facility] ([place]) Comment on above: Performed By: #### U A ####[address] [place], [place] [address] UA Protein Negative Normal Negative [facility] ([place]) Comment on above: Performed By: #### U A ####[address] [place] [address] UA Spec Grav 1.015 Normal 1.015-1.025 [facility] ([place]) Comment on above: Performed By: #### U A ####[address] [place] [address] UA Specimen Type Void Normal [facility] ([place]) Comment on above: Performed By: #### U A ####[address] [place], [place] [address] UA Urobilinogen 0.2 E.U./dL Normal 0.2-1.0 [facility] ([place]) Comment on above: Performed By: #### U A ####[address] [place], [place] [address] Urobilinogen (U) [Mass/Vol] Negative Normal Negative [facility] ([place]) Comment on above: Performed By: #### U A ####[address] [place], [place] [address] Absolute lymphocyte counton 05-15-2022 Lymphocytes Auto (Unsp spec) [#/Vol] 4.92 10*3/uL 0.83-4.51 [facility] Work Phone: Basophil percentageon 2021 Basophil percentage 0 SEEN /[facility]: Basophils/100 WBC (Bld) 0.2 % 0-1 [facility] Work Phone: Bilirubin [Mass/Vol] 0.80 mg/dL 0.20-1.00 [facility] Work Phone: Comment on above: For patients on eltr ombopag therapy, use of Dimension [place] TBIL is not recommended. Chloride [Moles/Vol] 105 mmol/L 98-107 [facility] Work Phone: Eosinophils/100 WBC (Bld) 0.3 % 0-5 [facility] Work Phone: Glucose [Mass/Vol] 147 mg/dL 74-106 [facility] Work Phone: Comment on above: Fasting Glucose resu lt greater than or equal to 126 mg/dL suggests DIABETES MELLITUS per A.D.A. criteria. Neutrophils (Bld) [#/Vol] 10.2 10*3/uL 2.0-7.7 [facility] Work Phone: Neutrophils/100 WBC (Bld) 58.4 % 47-70 [facility] Work Phone: Potassium [Moles/Vol] 3.7 mmol/L 3.5-5.1 [facility] Work Phone: Protein [Mass/Vol] 6.3 g/dL 6.4-8.2 [facility] Work Phone: Sodium [Moles/Vol] 136 mmol/L 136-145 [facility] Work Phone: WBC (Bld) [#/Vol] 17.4 10*3/uL 4.4-11.0 [facility] Work Phone: Bilirubin Test strip Ql (U)o n 05-15-2022 Bilirubin Ql (U) 6 mg/dL Negative [facility] Work Phone: Comment on above: COLOR OF URINE MAY A FFECT DIPSTICK RESULTS. Blood erythrocytes count (nu mber/volume)on 05-15-2022 RBC (Bld) [#/Vol] 3.70 10*6/uL 4.2-5.4 [facility] Work Phone: Blood hemoglobin measurement (mass/volume)on 05-15-2022 Hemoglobin (Bld) [Mass/Vol] 12.9 g/dL 12.0-15.0 [facility] Work Phone: Blood lymphocytes/100 leukoc yteson 05-15-2022 Lymphocytes/100 WBC (Bld) 28.2 % 19-41 [facility] Work Phone: Blood manual differential co mment interpretation (narrative result)on 05-15-2022 Manual differential comment Fortunato (Bld) [Interp] See comment [facility] Work Phone: Comment on above: MONOCYTOSIS NOTED Blood monocytes/100 leukocyt eson 05-15-2022 Monocytes/100 WBC (Bld) 11.9 % 0-10 [facility] Work Phone: Blood platelet adequacy dete ction by light microscopyon 05-15-2022 Platelets LM Ql (Bld) SLT DEC ADEQ [facility] Work Phone: Blood platelet mean volumeon 05-15-2022 Platelet mean volume (Bld) [Entitic vol] 10.0 fL 6.2-12.0 [facility] Work Phone: Determination of erythrocyte mean corpuscular volume (MCV)on 05-15-2022 MCV (RBC) [Entitic vol] 102.4 fL 81-99 [facility] Work Phone: [phone] Hematocrit Auto (Bld) [Volum e fraction]on 05-15-2022 Hematocrit (Bld) [Volume fraction] 37.9 % 37-47 [facility] Work Phone: [phone] Ketones Test strip Ql (U)on 05-15-2022 Ketones Ql (U) Negative Negative [facility] Work Phone: Laboratory - Chemistry and C hemistry - challengeon 05-15-2022 ALP [Catalytic activity/Vol] 74 U/L 45-117 [facility] Work Phone: ALT [Catalytic activity/Vol] 26 U/L 13-56 [facility] Work Phone: [phone] CO2 [Moles/Vol] 25.0 mmol/L 21.0-32.0 [facility] Work Phone: [phone] Globulin (S) [Mass/Vol] 3.5 g/dL 2.2-4.2 [facility] Work Phone: [phone] Lipase [Catalytic activity/Vol] 73 U/L 73-393 [facility] Work Phone: [phone] Urea nitrogen/Creatinine [Mass ratio] 29.8 mg/mg 10-20 [facility] Work Phone: [phone] Laboratory - Hematology and Cell countson 05-15-2022 Erythrocyte distribution width (RBC) [Entitic vol] 54.3 fL 35.1-43.9 [facility] Work Phone: [phone] Erythrocyte distribution width (RBC) [Ratio] 14.7 % 11.6-14.6 [facility] Work Phone: [phone] Immature granulocytes/100 WBC (Bld) 1.000 % 0.0-0.9 [facility] Work Phone: [phone] Comment on above: IG% - Immature Granu locytes (promyelocytes, myelocytes and metamyelocytes) > 1% indicates that a LEFT SHIFT is Present. MCH (RBC) [Entitic mass] 34.9 pg 27.0-32.0 [facility] Work Phone: [phone] Nucleated RBC/100 WBC (Bld) [Ratio] 0.1 % 0-5 [facility] Work Phone: [phone] MCHC Auto (RBC) [Mass/Vol]on 05-15-2022 MCHC (RBC) [Mass/Vol] 34.0 g/dL 32-36 [facility] Work Phone: [phone] Mucus LM Ql (Urine sed)on Mucus Ql (Urine sed) 0 SEEN /hpf [facility] Work Phone: [phone] Nitrite Test strip Ql (U)on 05-15-2022 Nitrite Ql (U) Positive Negative [facility] Work Phone: No Panel Informationon 05-15 Estimated Creatinine Clearance Calc 70.50 ml/min [facility] Work Phone: Estimated GFR (MDRD) Amer 86 mL/min >60 [facility] Work Phone: [phone] Comment on above: GFR Calc Estimated GFR (MDRD) Non-Af Amer 71 mL/min >60 [facility] Work Phone: Comment on above: Non- GFR Calc Platelets bldon 05-15-2022 Platelets (Bld) [#/Vol] 110 10*3/uL 150-450 [facility] Work Phone: Protein Test strip Ql (U)on 05-15-2022 Protein Ql (U) 30 mg/dl Negative [facility] Work Phone: RBC morphologyon 05-15-2022 RBC morphology finding Nom (Bld) NORM C+C NORMAL NORM C&C [facility] Work Phone: Review by pathologiston 04-21 Pathologist review Fortunato (Unsp spec) [Interp] Tiana hernandez [facility] Work Phone: Pathologist review Fortunato (Unsp spec) [Interp] Reviewed [facility] Work Phone: Comment on above: Previous reported re sult: Tiana hernandez Edited by: RGOPAULINE on 05/18/22:1527Leukocytosis. Macrocytosis.Mild Thrombocytopenia.Clinical correlation necessary.Mahesh Delacruz M.D. 05/18/22 AMENDED REPORT 05/18/22 1527 PATH REV previously reported as: January david Serum or plasma albumin bri urement (mass/volume)on 05-15-2022 Albumin [Mass/Vol] 2.8 g/dL 3.2-5.0 [facility] Work Phone: [phone] Serum or plasma albumin/glob ulin mass ratioon 05-15-2022 Albumin/Globulin [Mass ratio] 0.8 {ratio} 0.9-2.4 [facility] Work Phone: Serum or plasma calcium bri urement (mass/volume)on 05-15-2022 Calcium [Mass/Vol] 8.2 mg/dL 8.5-10.1 [facility] Work Phone: Serum or plasma creatinine m easurement (mass/volume)on 05-15-2022 Creatinine [Mass/Vol] 0.84 mg/dL 0.55-1.02 [facility] Work Phone: Comment on above: The validity of the calculated GFR & GFRAA in patients over 70 years has not been determined. Clinical correlation is essential. Serum or plasma urea nitroge n measurement (mass/volume)on 05-15-2022 Urea nitrogen [Mass/Vol] 25 mg/dL 7-18 [facility] Work Phone: Squamous epithelial cells de tection in urine sediment by light microscopyon 05-15-2022 Epithelial cells.squamous LM Ql (Urine sed) 0-5 SEEN /hpf 5-10 [facility] Work Phone: Thin prep Papanicolaou smear with manual screeningon 05-15-2022 Thin prep Papanicolaou smear with manual screening 15 U/L 15-37 [facility] Work Phone: Thin prep Papanicolaou smear with manual screening 6 5-15 [facility] Work Phone: [phone] Urine blood detectionon - RBC Ql (U) Negative Negative [facility] Work Phone: [phone] RBC Ql (U) 0 SEEN /hpf 0-5 [facility] Work Phone: [phone] Urine clarityon 05-15-2022 Clarity (U) Sl. Cloudy Clear [facility] Work Phone: [phone] Urine color determinationon 05-15-2022 Color (U) Red Yellow [facility] Work Phone: [phone] Urine glucose detectionon Glucose Ql (U) Normal mg/dl Normal [facility] Work Phone: [phone] Urine leukocyte esterase det ection by dipstickon 05-15-2022 Leukocyte esterase Test strip Ql (U) Negative Negative [facility] Work Phone: Urine pHon 05-15-2022 pH (U) 5.0 [pH] 5.0 - 8.0 [facility] Work Phone: Urine sediment bacteria coun t by microscopy (number/high power field)on 05-15-2022 Bacteria LM.HPF (Urine sed) [#/Area] 0 /[HPF] None Seen [facility] Work Phone: Urine specific gravity measu rementon 05-15-2022 Specific gravity (U) [Rel density] 1.020 1.002-1.030 [facility] Work Phone: Urobilinogen Auto test strip Ql (U)on 05-15-2022 Urobilinogen Ql (U) 8 mg/dl Normal [facility] Work Phone: Basophil percentageon 2021 Basophil percentage 0 SEEN /hpf 0-5 [facility] Work Phone: Bilirubin Test strip Ql (U)o n 05-13-2022 Bilirubin Ql (U) 6 mg/dL Negative [facility] Work Phone: Comment on above: COLOR OF URINE MAY A FFECT DIPSTICK RESULTS. Ketones Test strip Ql (U)on 05-13-2022 Ketones Ql (U) Negative Negative [facility] Work Phone: Mucus LM Ql (Urine sed)on Mucus Ql (Urine sed) 0 SEEN /hpf [facility] Work Phone: Nitrite Test strip Ql (U)on 05-13-2022 Nitrite Ql (U) Positive Negative [facility] Work Phone: Protein Test strip Ql (U)on 05-13-2022 Protein Ql (U) 15 mg/dl Negative [facility] Work Phone: Squamous epithelial cells de tection in urine sediment by light microscopyon 05-13-2022 Epithelial cells.squamous LM Ql (Urine sed) 0-5 SEEN /hpf 5-10 [facility] Work Phone: Urine blood detectionon 04-21 RBC Ql (U) Negative Negative [facility] Work Phone: RBC Ql (U) 0 SEEN /hpf 0-5 [facility] Work Phone: Urine clarityon 05-13-2022 Clarity (U) Clear Clear [facility] Work Phone: Urine color determinationon 05-13-2022 Color (U) Yellow Yellow [facility] Work Phone: Urine glucose detectionon Glucose Ql (U) Normal mg/dl Normal [facility] Work Phone: Urine leukocyte esterase det ection by dipstickon 05-13-2022 Leukocyte esterase Test strip Ql (U) 25 /ul Negative [facility] Work Phone: Urine pHon 05-13-2022 pH (U) 6.0 [pH] 5.0 - 8.0 [facility] Work Phone: Urine sediment bacteria coun t by microscopy (number/high power field)on 05-13-2022 Bacteria LM.HPF (Urine sed) [#/Area] 0 /[HPF] None Seen [facility] Work Phone: Urine specific gravity measu rementon 05-13-2022 Specific gravity (U) [Rel density] 1.015 1.002-1.030 [facility] Work Phone: Urobilinogen Auto test strip Ql (U)on 05-13-2022 Urobilinogen Ql (U) 8 mg/dl Normal [facility] Work Phone: Comprehensive metabolic 2000 panelon 05-04-2022 Albumin [Mass/Vol] 4.1 g/dL 3.9 - 4.9 g/dL [facility] ALP [Catalytic activity/Vol] 109 U/L 34 - 123 U/L [facility] ALT [Catalytic activity/Vol] 22 U/L 7 - 38 U/L [facility] Anion gap [Moles/Vol] 13 mmol/L 9 - 18 mmol/L [facility] AST [Catalytic activity/Vol] 22 U/L 13 - 35 U/L [facility] Bilirubin [Mass/Vol] 0.5 mg/dL 0.2 - 1 .3 mg/dL [facility] Calcium [Mass/Vol] 9.2 mg/dL 8.5 - 10. 2 mg/dL [facility] Chloride [Moles/Vol] 104 mmol/L 97 - 10 5 mmol/L [facility] CO2 [Moles/Vol] 19 mmol/L Low 22 - 30 mmol/L [facility] Creatinine [Mass/Vol] 0.82 mg/dL 0.58 - 0.96 mg/dL [facility] Estimated Glomerular Filtration Rate 77 mL/min/1.73m >=60 mL/min/1.73 m [facility] Glucose [Mass/Vol] 85 mg/dL 74 - 99 mg/dL [facility] Potassium [Moles/Vol] 3.8 mmol/L 3.7 - 5.1 mmol/L [facility] Protein [Mass/Vol] 6.9 g/dL 6.3 - 8.0 g/dL [facility] Sodium [Moles/Vol] 136 mmol/L 136 - 144 mmol/L [facility] Urea nitrogen [Mass/Vol] 19 mg/dL 7 - 21 mg/dL [facility] MAGNESIUM BLDon 05-04-2022 Magnesium [Mass/Vol] 2.0 mg/dL 1.7 - 2 .3 mg/dL [facility] UA DIP, URINE (POC)on 2021 BILIRUBIN UA (POCT) Negative Negative [facility] CLARITY UA (POCT) Clear [facility] COLOR UA (POCT) Yellow [facility] GLUCOSE UA (POCT) Negative Negative mg/dL [facility] HEMOGLOBIN/BLOOD UA (POCT) Trace-intact Abnormal Negative [facility] KETONE UA (POCT) Negative Negative mg/dL [facility] LEUKOCYTES UA (POCT) Negative Negative [facility] NITRITE UA (POCT) Negative Negative [facility] PH UA (POCT) 5.5 4.5 - 8.0 [facility] Protein Ql (U) Negative Negative mg/dL [facility] SPECIFIC GRAVITY UA (POCT) 1.020 1.005 - 1.030 [facility] UROBILINOGEN UA (POCT) 0.2 E.U./dL Darrikc l E.U./dL [facility] CBC W Auto Differential pane l (Bld)on 04-03-2022 Abs Immature Gran <0.03 <0.10 k/uL [facility] Basophils (Bld) [#/Vol] 0.05 10*3/uL <0.11 k/uL [facility] Basophils/100 WBC (Bld) 0.6 % [facility] Differential cell count method Nom (Bld) Auto [facility] Eosinophils (Bld) [#/Vol] 0.38 10*3/uL <0.46 k/uL [facility] Eosinophils/100 WBC (Bld) 4.7 % [facility] Erythrocyte distribution width (RBC) [Ratio] 14.6 % 11.5 - 15.0 % [facility] Hematocrit (Bld) [Volume fraction] 40.9 % 36.0 - 46.0 % [facility] Hemoglobin (Bld) [Mass/Vol] 13.9 g/dL 11.5 - 15.5 g/dL [facility] Immature Gran % 0.1 % [facility] Lymphocytes (Bld) [#/Vol] 4.69 10*3/uL High 1.00 - 4.00 k/uL [facility] Lymphocytes/100 WBC (Bld) 57.8 % [facility] MCH (RBC) [Entitic mass] 35.5 pg High 26.0 - 34.0 pg [facility] MCHC (RBC) [Mass/Vol] 34.0 g/dL 30.5 - 36.0 g/dL [facility] MCV (RBC) [Entitic vol] 104.6 fL High 80.0 - 100.0 fL [facility] Monocytes (Bld) [#/Vol] 0.71 10*3/uL <0.87 k/uL [facility] Monocytes/100 WBC (Bld) 8.8 % [facility] Neutrophils (Bld) [#/Vol] 2.27 10*3/uL 1.45 - 7.50 k/uL [facility] Neutrophils/100 WBC (Bld) 28.0 % [facility] Nucleated RBC (Bld) [#/Vol] 10*3/uL <0.01 k/uL [facility] Nucleated RBC/100 WBC (Bld) [Ratio] 0.0 /100 WBC [facility] Platelet mean volume (Bld) [Entitic vol] 10.4 fL 9.0 - 12.7 fL [facility] Platelets (Bld) [#/Vol] 230 10*3/uL 150 - 400 k/uL [facility] RBC (Bld) [#/Vol] 3.91 10*6/uL 3.90 - 5.2 0 m/uL [facility] WBC (Bld) [#/Vol] 8.11 10*3/uL 3.70 - 11.00 k/uL [facility] Comprehensive metabolic 2000 panelon 04-03-2022 Albumin [Mass/Vol] 4.0 g/dL 3.9 - 4.9 g/dL [facility] ALP [Catalytic activity/Vol] 102 U/L 34 - 123 U/L [facility] ALT [Catalytic activity/Vol] 28 U/L 7 - 38 U/L [facility] Anion gap [Moles/Vol] 11 mmol/L 9 - 18 mmol/L [facility] AST [Catalytic activity/Vol] 30 U/L 13 - 35 U/L [facility] Bilirubin [Mass/Vol] 0.3 mg/dL 0.2 - 1 .3 mg/dL [facility] Calcium [Mass/Vol] 8.8 mg/dL 8.5 - 10. 2 mg/dL [facility] Chloride [Moles/Vol] 108 mmol/L High 97 - 10 5 mmol/L [facility] CO2 [Moles/Vol] 20 mmol/L Low 22 - 30 mmol/L [facility] Creatinine [Mass/Vol] 0.84 mg/dL 0.58 - 0.96 mg/dL [facility] Estimated Glomerular Filtration Rate 74 mL/min/1.73m >=60 mL/min/1.73 m [facility] Glucose [Mass/Vol] 96 mg/dL 74 - 99 mg/dL [facility] Potassium [Moles/Vol] 3.8 mmol/L 3.7 - 5.1 mmol/L [facility] Protein [Mass/Vol] 6.7 g/dL 6.3 - 8.0 g/dL [facility] Sodium [Moles/Vol] 139 mmol/L 136 - 144 mmol/L [facility] Urea nitrogen [Mass/Vol] 29 mg/dL High 7 - 21 mg/dL [facility] Absolute lymphocyte counton 02-26-2022 Lymphocytes Auto (Unsp spec) [#/Vol] 5.02 10*3/uL 0.83-4.51 [facility] Work Phone: Basophil percentageon 2021 Basophils/100 WBC (Bld) 0.2 % 0-1 [facility] Work Phone: Bilirubin [Mass/Vol] 0.40 mg/dL 0.20-1.00 [facility] Work Phone: Comment on above: For patients on eltr ombopag therapy, use of [employer] [place] TBIL is not recommended. Chloride [Moles/Vol] 108 mmol/L 98-107 [facility] Work Phone: Eosinophils/100 WBC (Bld) 0.7 % 0-5 [facility] Work Phone: Glucose [Mass/Vol] 183 mg/dL 74-106 [facility] Work Phone: Comment on above: Fasting Glucose resu lt greater than or equal to 126 mg/dL suggests DIABETES MELLITUS per A.D.A. criteria. Neutrophils (Bld) [#/Vol] 9.6 10*3/uL 2.0-7.7 [facility] Work Phone: Neutrophils/100 WBC (Bld) 56.8 % 47-70 [facility] Work Phone: Potassium [Moles/Vol] 3.6 mmol/L 3.5-5.1 [facility] Work Phone: [phone] Protein [Mass/Vol] 7.0 g/dL 6.4-8.2 [facility] Work Phone: Sodium [Moles/Vol] 138 mmol/L 136-145 [facility] Work Phone: WBC (Bld) [#/Vol] 16.9 10*3/uL 4.4-11.0 [facility] Work Phone: Blood erythrocytes count (nu mber/volume)on 02-26-2022 RBC (Bld) [#/Vol] 4.01 10*6/uL 4.2-5.4 [facility]: Blood hemoglobin measurement (mass/volume)on 02-26-2022 Hemoglobin (Bld) [Mass/Vol] 14.0 g/dL 12.0-15.0 [facility] Work Phone: Blood lymphocytes/100 leukoc yteson 02-26-2022 Lymphocytes/100 WBC (Bld) 29.7 % 19-41 [facility] Work Phone: Blood manual differential co mment interpretation (narrative result)on 02-26-2022 Manual differential comment Fortunato (Bld) [Interp] COMMENT [facility] Work Phone: Comment on above: LYMPHOCYTOSIS.MONOCY TOSIS. Blood monocytes/100 leukocyt eson 02-26-2022 Monocytes/100 WBC (Bld) 12.2 % 0-10 [facility] Work Phone: Blood platelet mean volumeon 02-26-2022 Platelet mean volume (Bld) [Entitic vol] 10.4 fL 6.2-12.0 [facility] Work Phone: Determination of erythrocyte mean corpuscular volume (MCV)on 02-26-2022 MCV (RBC) [Entitic vol] 103.5 fL 81-99 [facility] Work Phone: Hematocrit Auto (Bld) [Volum e fraction]on 02-26-2022 Hematocrit (Bld) [Volume fraction] 41.5 % 37-47 [facility] Work Phone: Laboratory - Chemistry and C hemistry - challengeon 02-26-2022 ALP [Catalytic activity/Vol] 101 U/L 45-117 [facility] Work Phone: ALT [Catalytic activity/Vol] 45 U/L 13-56 [facility] Work Phone: [phone] CO2 [Moles/Vol] 26.0 mmol/L 21.0-32.0 [facility] Work Phone: Globulin (S) [Mass/Vol] 3.7 g/dL 2.2-4.2 [facility] Work Phone: Urea nitrogen/Creatinine [Mass ratio] 17.7 mg/mg 10-20 [facility] Work Phone: [phone] Laboratory - Hematology and Cell countson 02-26-2022 Erythrocyte distribution width (RBC) [Entitic vol] 55.3 fL 35.1-43.9 [facility] Work Phone: [phone] Erythrocyte distribution width (RBC) [Ratio] 14.3 % 11.6-14.6 [facility] Work Phone: [phone] Immature granulocytes/100 WBC (Bld) 0.400 % 0.0-0.9 [facility] Work Phone: [phone] Comment on above: IG% - Immature Granu locytes (promyelocytes, myelocytes and metamyelocytes) > 1% indicates that a LEFT SHIFT is Present. MCH (RBC) [Entitic mass] 34.9 pg 27.0-32.0 [facility] Work Phone: [phone] Nucleated RBC/100 WBC (Bld) [Ratio] 0 % 0-5 [facility] Work Phone: [phone] MCHC Auto (RBC) [Mass/Vol]on 02-26-2022 MCHC (RBC) [Mass/Vol] 33.7 g/dL 32-36 [facility] Work Phone: No Panel Informationon 02-26 Estimated Creatinine Clearance Calc 57.73 ml/min [facility] Work Phone: [phone] Estimated GFR (MDRD) Amer 74 mL/min >60 [facility] Work Phone: [phone] Comment on above: GFR Calc Estimated GFR (MDRD) Non-Af Amer 61 mL/min >60 [facility] Work Phone: [phone] Comment on above: Non- GFR Calc SARS-CoV-2 & FLU Antigen (Rapid) [facility] Work Phone: Platelets bldon 02-26-2022 Platelets (Bld) [#/Vol] 239 10*3/uL 150-450 [facility] Work Phone: Review by pathologiston Pathologist review Fortunato (Unsp spec) [Interp] January david [facility] Work Phone: Pathologist review Fortunato (Unsp spec) [Interp] Reviewed [facility] Work Phone: Comment on above: Previous reported re sult: Tiana hernandez Edited by: RGOPAULINE on 02/27/22:1237Leukocytosis. Macrocytosis.Clinical correlation necessary.Mahesh Delacruz M.D. 02/27/22 AMENDED REPORT 02/27/22 1237 PATH REV previously reported as: January david Serum or plasma albumin bri urement (mass/volume)on 02-26-2022 Albumin [Mass/Vol] 3.3 g/dL 3.2-5.0 [facility] Work Phone: Serum or plasma albumin/glob ulin mass ratioon 02-26-2022 Albumin/Globulin [Mass ratio] 0.9 {ratio} 0.9-2.4 [facility] Work Phone: Serum or plasma calcium bri urement (mass/volume)on 02-26-2022 Calcium [Mass/Vol] 8.5 mg/dL 8.5-10.1 [facility] Work Phone: Serum or plasma creatinine m easurement (mass/volume)on 02-26-2022 Creatinine [Mass/Vol] 0.96 mg/dL 0.55-1.02 [facility] Work Phone: Comment on above: The validity of the calculated GFR & GFRAA in patients over 70 years has not been determined. Clinical correlation is essential. Serum or plasma urea nitroge n measurement (mass/volume)on 02-26-2022 Urea nitrogen [Mass/Vol] 17 mg/dL 7-18 [facility] Work Phone: Thin prep Papanicolaou smear with manual screeningon 02-26-2022 Thin prep Papanicolaou smear with manual screening 21 U/L 15-37 [facility] Work Phone: Thin prep Papanicolaou smear with manual screening 4 5-15 [facility] Work Phone: CBC W Auto Differential pane l (Bld)on 02-02-2022 Abs Immature Gran <0.03 <0.10 k/uL [facility] Basophils (Bld) [#/Vol] 0.04 10*3/uL <0.11 k/uL [facility] Basophils/100 WBC (Bld) 0.5 % [facility] Differential cell count method Nom (Bld) Auto [facility] Eosinophils (Bld) [#/Vol] 0.33 10*3/uL <0.46 k/uL [facility] Eosinophils/100 WBC (Bld) 4.1 % [facility] Erythrocyte distribution width (RBC) [Ratio] 14.9 % 11.5 - 15.0 % [facility] Hematocrit (Bld) [Volume fraction] 39.4 % 36.0 - 46.0 % [facility] Hemoglobin (Bld) [Mass/Vol] 13.5 g/dL 11.5 - 15.5 g/dL [facility] Immature Gran % 0.1 % [facility] Lymphocytes (Bld) [#/Vol] 4.38 10*3/uL High 1.00 - 4.00 k/uL [facility] Lymphocytes/100 WBC (Bld) 55.0 % [facility] MCH (RBC) [Entitic mass] 35.6 pg High 26.0 - 34.0 pg [facility] MCHC (RBC) [Mass/Vol] 34.3 g/dL 30.5 - 36.0 g/dL [facility] MCV (RBC) [Entitic vol] 104.0 fL High 80.0 - 100.0 fL [facility] Monocytes (Bld) [#/Vol] 0.83 10*3/uL <0.87 k/uL [facility] Monocytes/100 WBC (Bld) 10.4 % [facility] Neutrophils (Bld) [#/Vol] 2.37 10*3/uL 1.45 - 7.50 k/uL [facility] Neutrophils/100 WBC (Bld) 29.9 % [facility] Nucleated RBC (Bld) [#/Vol] 10*3/uL <0.01 k/uL [facility] Nucleated RBC/100 WBC (Bld) [Ratio] 0.0 /100 WBC [facility] Platelet mean volume (Bld) [Entitic vol] 10.0 fL 9.0 - 12.7 fL [facility] Platelets (Bld) [#/Vol] 268 10*3/uL 150 - 400 k/uL [facility] RBC (Bld) [#/Vol] 3.79 10*6/uL Low 3.90 - 5.2 0 m/uL [facility] WBC (Bld) [#/Vol] 7.96 10*3/uL 3.70 - 11.00 k/uL [facility] Comprehensive metabolic 2000 panelon 02-02-2022 Albumin [Mass/Vol] 3.9 g/dL 3.9 - 4.9 g/dL [facility] ALP [Catalytic activity/Vol] 101 U/L 34 - 123 U/L [facility] ALT [Catalytic activity/Vol] 27 U/L 7 - 38 U/L [facility] Anion gap [Moles/Vol] 14 mmol/L 9 - 18 mmol/L [facility] AST [Catalytic activity/Vol] 27 U/L 13 - 35 U/L [facility] Bilirubin [Mass/Vol] 0.4 mg/dL 0.2 - 1 .3 mg/dL [facility] Calcium [Mass/Vol] 8.9 mg/dL 8.5 - 10. 2 mg/dL [facility] Chloride [Moles/Vol] 105 mmol/L 97 - 10 5 mmol/L [facility] CO2 [Moles/Vol] 20 mmol/L Low 22 - 30 mmol/L [facility] Creatinine [Mass/Vol] 0.83 mg/dL 0.58 - 0.96 mg/dL [facility] Estimated Glomerular Filtration Rate 76 mL/min/1.73m >=60 mL/min/1.73 m [facility] Glucose [Mass/Vol] 105 mg/dL High 74 - 99 mg/dL [facility] Potassium [Moles/Vol] 4.0 mmol/L 3.7 - 5.1 mmol/L [facility] Protein [Mass/Vol] 6.8 g/dL 6.3 - 8.0 g/dL [facility] Sodium [Moles/Vol] 139 mmol/L 136 - 144 mmol/L [facility] Urea nitrogen [Mass/Vol] 25 mg/dL High 7 - 21 mg/dL [facility] Basic metabolic 2000 panelon 01-20-2022 Anion gap [Moles/Vol] 10 mmol/L 9 - 18 mmol/L [facility] [facility] Calcium [Mass/Vol] 8.8 mg/dL 8.5 - 10. 2 mg/dL [facility] Chloride [Moles/Vol] 104 mmol/L 97 - 10 5 mmol/L [facility] CO2 [Moles/Vol] 24 mmol/L 22 - 30 mmol/L [facility] Creatinine [Mass/Vol] 0.86 mg/dL 0.58 - 0.96 mg/dL [facility] Estimated Glomerular Filtration Rate 73 mL/min/1.73m >=60 mL/min/1.73 m [facility] Glucose [Mass/Vol] 128 mg/dL High 74 - 99 mg/dL [facility] Potassium [Moles/Vol] 4.4 mmol/L 3.7 - 5.1 mmol/L [facility] Sodium [Moles/Vol] 138 mmol/L 136 - 144 mmol/L [facility] Urea nitrogen [Mass/Vol] 31 mg/dL High 7 - 21 mg/dL [facility] MAGNESIUM BLDon 01-20-2022 Magnesium [Mass/Vol] 1.8 mg/dL 1.7 - 2 .3 mg/dL [facility] PHOSPHORUS INORGANICon 01-20 Phosphate [Mass/Vol] 3.4 mg/dL 2.7 - 4 .8 mg/dL [facility] Absolute lymphocyte counton 01-15-2022 Lymphocytes Auto (Unsp spec) [#/Vol] 7.16 10*3/uL 0.83-4.51 [facility] Work Phone: Basophil percentageon 2021 Chloride [Moles/Vol] 107 mmol/L 98-107 [facility] Work Phone: Glucose [Mass/Vol] 151 mg/dL 74-106 [facility] Work Phone: Comment on above: Fasting Glucose resu lt greater than or equal to 126 mg/dL suggests DIABETES MELLITUS per A.D.A. criteria. Potassium [Moles/Vol] 3.9 mmol/L 3.5-5.1 [facility] Work Phone: Sodium [Moles/Vol] 142 mmol/L 136-145 [facility] Work Phone: Basophil percentage 3.6 mg/dL 2.5-4.9 [facility] Work Phone: Basophils/100 WBC (Bld) 0.3 % 0-1 [facility] Work Phone: Eosinophils/100 WBC (Bld) 1.1 % 0-5 [facility] Work Phone: Neutrophils (Bld) [#/Vol] 2.0 10*3/uL 2.0-7.7 [facility] Work Phone: Neutrophils/100 WBC (Bld) 19.0 % 47-70 [facility] Work Phone: WBC (Bld) [#/Vol] 10.5 10*3/uL 4.4-11.0 [facility] Work Phone: Blood erythrocytes count (nu mber/volume)on 01-15-2022 RBC (Bld) [#/Vol] 3.37 10*6/uL 4.2-5.4 [facility] Work Phone: Blood hemoglobin measurement (mass/volume)on 01-15-2022 Hemoglobin (Bld) [Mass/Vol] 12.0 g/dL 12.0-15.0 [facility] Work Phone: Blood lymphocytes/100 leukoc yteson 01-15-2022 Lymphocytes/100 WBC (Bld) 68.5 % 19-41 [facility] Work Phone: Blood manual differential co mment interpretation (narrative result)on 01-15-2022 Manual differential comment Fortunato (Bld) [Interp] SCANNED [facility] Work Phone: Comment on above: LYMPHOCYTOSIS NOTED Blood monocytes/100 leukocyt eson 01-15-2022 Monocytes/100 WBC (Bld) 10.8 % 0-10 [facility] Work Phone: Blood platelet mean volumeon 01-15-2022 Platelet mean volume (Bld) [Entitic vol] 10.9 fL 6.2-12.0 [facility] Work Phone: [phone] Determination of erythrocyte mean corpuscular volume (MCV)on 01-15-2022 MCV (RBC) [Entitic vol] 96.7 fL 81-99 [facility] Work Phone: [phone] Hematocrit Auto (Bld) [Volum e fraction]on 01-15-2022 Hematocrit (Bld) [Volume fraction] 32.6 % 37-47 [facility] Work Phone: [phone] Laboratory - Chemistry and C hemistry - challengeon 01-15-2022 CO2 [Moles/Vol] 31.0 mmol/L 21.0-32.0 [facility] Work Phone: [phone] Urea nitrogen/Creatinine [Mass ratio] 13.3 mg/mg 10-20 [facility] Work Phone: [phone] Magnesium [Mass/Vol] 1.3 mg/dL 1.6-2.6 [facility] Work Phone: [phone] Laboratory - Hematology and Cell countson 01-15-2022 Erythrocyte distribution width (RBC) [Entitic vol] 48.5 fL 35.1-43.9 [facility] Work Phone: [phone] Erythrocyte distribution width (RBC) [Ratio] 13.6 % 11.6-14.6 [facility] Work Phone: [phone] Immature granulocytes/100 WBC (Bld) 0.300 % 0.0-0.9 [facility] Work Phone: [phone] Comment on above: IG% - Immature Granu locytes (promyelocytes, myelocytes and metamyelocytes) > 1% indicates that a LEFT SHIFT is Present. MCH (RBC) [Entitic mass] 35.6 pg 27.0-32.0 [facility] Work Phone: Nucleated RBC/100 WBC (Bld) [Ratio] 0 % 0-5 [facility] Work Phone: [phone] MCHC Auto (RBC) [Mass/Vol]on 01-15-2022 MCHC (RBC) [Mass/Vol] 36.8 g/dL 32-36 [facility] Work Phone: No Panel Informationon 01-15 Estimated Creatinine Clearance Calc 69.89 ml/min [facility] Work Phone: Estimated GFR (MDRD) Amer 87 mL/min >60 [facility] Work Phone: Comment on above: GFR Calc Estimated GFR (MDRD) Non-Af Amer 72 mL/min >60 [facility] Work Phone: Comment on above: Non- GFR Calc Reactive Lymphocytes 1+ [facility] Work Phone: Platelets bldon 01-15-2022 Platelets (Bld) [#/Vol] 151 10*3/uL 150-450 [facility] Work Phone: Serum or plasma calcium bri urement (mass/volume)on 01-15-2022 Calcium [Mass/Vol] 7.5 mg/dL 8.5-10.1 [facility] Work Phone: Serum or plasma creatinine m easurement (mass/volume)on 01-15-2022 Creatinine [Mass/Vol] 0.83 mg/dL 0.55-1.02 [facility] Work Phone: Comment on above: The validity of the calculated GFR & GFRAA in patients over 70 years has not been determined. Clinical correlation is essential. Serum or plasma urea nitroge n measurement (mass/volume)on 01-15-2022 Urea nitrogen [Mass/Vol] 11 mg/dL 7-18 [facility] Work Phone: Thin prep Papanicolaou smear with manual screeningon 01-15-2022 Thin prep Papanicolaou smear with manual screening 4 5-15 [facility] Work Phone: Base excesson 01-13-2022 Base excess Calc (BldV) [Moles/Vol] -20 mmol/L -2-2 [facility] Work Phone: Basophil percentageon 2021 Basophil percentage 7.8 mmol/L - [facility] Work Phone: Basophils/100 WBC (Bld) 97 % 95-99 [facility] Work Phone: CO2 (BldA) [Partial pressure ]on 01-13-2022 CO2 (Bld) [Partial pressure] 18.9 mm[Hg] 35-45 [facility] Work Phone: No Panel Informationon 01-13 Bld Gas Crit Called To/Read Back By Yes [facility] Work Phone: Blood Gas Sample Site L Radial [facility] Work Phone: Blood Gas Specimen Type ART [facility] Work Phone: Blood Gas Total CO2 8 mmol/L [facility] Work Phone: Oxygen Delivery Device Room Air [facility] Work Phone: Atypical Lymphocytes RARE % [facility] Work Phone: Oxygen (BldA) [Partial press ure]on 01-13-2022 Oxygen (Bld) [Partial pressure] 100 mmHG 75-100 [facility] Work Phone: pH measurementon 01-13-2022 pH (Unsp spec) 7.22 [pH] 7.35-7.45 [facility] Work Phone: Absolute lymphocyte counton 01-11-2022 Lymphocytes Auto (Unsp spec) [#/Vol] 3.00 10*3/uL 0.83-4.51 [facility] Work Phone: Basophil percentageon 2021 Basophils/100 WBC (Bld) 0.4 % 0-1 [facility] Work Phone: Chloride [Moles/Vol] 109 mmol/L 98-107 [facility] Work Phone: Eosinophils/100 WBC (Bld) 0.1 % 0-5 [facility] Work Phone: Glucose [Mass/Vol] 123 mg/dL 74-106 [facility] Work Phone: Comment on above: Fasting Glucose resu lt from 100 to 125 mg/dL suggests IMPAIRED HOMEOSTASIS per A.D.A. criteria. Neutrophils (Bld) [#/Vol] 4.8 10*3/uL 2.0-7.7 [facility] Work Phone: Neutrophils/100 WBC (Bld) 56.6 % 47-70 [facility] Work Phone: [phone] Potassium [Moles/Vol] 4.5 mmol/L 3.5-5.1 [facility] Work Phone: Comment on above: Slight Hemolysis, Re sult may be falsely increased. Sodium [Moles/Vol] 131 mmol/L 136-145 [facility] Work Phone: WBC (Bld) [#/Vol] 8.6 10*3/uL 4.4-11.0 [facility] Work Phone: Blood erythrocytes count (nu mber/volume)on 01-11-2022 RBC (Bld) [#/Vol] 5.59 10*6/uL 4.2-5.4 [facility] Work Phone: Blood hemoglobin measurement (mass/volume)on 01-11-2022 Hemoglobin (Bld) [Mass/Vol] 19.5 g/dL 12.0-15.0 [facility] Work Phone: Comment on above: CRITICAL VALUE VERIF IED. CALLED TO [id number] Megan Lew.RESULTS READ BACK BY SAME . Blood lymphocytes/100 leukoc yteson 01-11-2022 Lymphocytes/100 WBC (Bld) 35.0 % 19-41 [facility] Work Phone: Blood manual differential co mment interpretation (narrative result)on 01-11-2022 Manual differential comment Fortunato (Bld) [Interp] SCANNED [facility] Work Phone: Blood monocytes/100 leukocyt eson 01-11-2022 Monocytes/100 WBC (Bld) 7.7 % 0-10 [facility] Work Phone: [phone] Blood platelet mean volumeon 01-11-2022 Platelet mean volume (Bld) [Entitic vol] 10.4 fL 6.2-12.0 [facility] Work Phone: [phone] Determination of erythrocyte mean corpuscular volume (MCV)on 01-11-2022 MCV (RBC) [Entitic vol] 103.8 fL 81-99 [facility] Work Phone: [phone] Hematocrit Auto (Bld) [Volum e fraction]on 01-11-2022 Hematocrit (Bld) [Volume fraction] 58.0 % 37-47 [facility] Work Phone: [phone] Laboratory - Chemistry and C hemistry - challengeon 01-11-2022 CO2 [Moles/Vol] 12.0 mmol/L 21.0-32.0 [facility] Work Phone: [phone] Urea nitrogen/Creatinine [Mass ratio] 19.7 mg/mg 10-20 [facility] Work Phone: [phone] Laboratory - Hematology and Cell countson 01-11-2022 Erythrocyte distribution width (RBC) [Entitic vol] 57.1 fL 35.1-43.9 [facility] Work Phone: [phone] Erythrocyte distribution width (RBC) [Ratio] 14.7 % 11.6-14.6 [facility] Work Phone: [phone] Immature granulocytes/100 WBC (Bld) 0.200 % 0.0-0.9 [facility] Work Phone: [phone] Comment on above: IG% - Immature Granu locytes (promyelocytes, myelocytes and metamyelocytes) > 1% indicates that a LEFT SHIFT is Present. MCH (RBC) [Entitic mass] 34.9 pg 27.0-32.0 [facility] Work Phone: [phone] Nucleated RBC/100 WBC (Bld) [Ratio] 0 % 0-5 [facility] Work Phone: [phone] MCHC Auto (RBC) [Mass/Vol]on 01-11-2022 MCHC (RBC) [Mass/Vol] 33.6 g/dL 32-36 [facility] Work Phone: No Panel Informationon 01-11 Estimated Creatinine Clearance Calc 21.63 ml/min [facility] Work Phone: Estimated GFR (MDRD) Amer 23 mL/min >60 [facility] Work Phone: Comment on above: GFR Calc Estimated GFR (MDRD) Non-Af Amer 19 mL/min >60 [facility] Work Phone: Comment on above: Non- GFR Calc Platelets bldon 01-11-2022 Platelets (Bld) [#/Vol] 231 10*3/uL 150-450 [facility] Work Phone: Review by pathologiston 12-20 Pathologist review Fortunato (Unsp spec) [Interp] Reviewed [facility] Work Phone: Comment on above: Previous reported re sult: Tiana hernandez Edited by: TAJ on 01/12/22:1331Polycythemia Clinical correlation necessary.Mahesh Delacruz M.D. 01/12/22 AMENDED REPORT 01/12/22 1331 PATH REV previously reported as: Tiana hernandez Serum or plasma calcium bri urement (mass/volume)on 01-11-2022 Calcium [Mass/Vol] 9.7 mg/dL 8.5-10.1 [facility] Work Phone: Serum or plasma creatinine m easurement (mass/volume)on 01-11-2022 Creatinine [Mass/Vol] 2.64 mg/dL 0.55-1.02 [facility] Work Phone: Comment on above: The validity of the calculated GFR & GFRAA in patients over 70 years has not been determined. Clinical correlation is essential. Serum or plasma urea nitroge n measurement (mass/volume)on 01-11-2022 Urea nitrogen [Mass/Vol] 52 mg/dL 7-18 [facility] Work Phone: Thin prep Papanicolaou smear with manual screeningon 01-11-2022 Thin prep Papanicolaou smear with manual screening 10 5-15 [facility] Work Phone: Absolute lymphocyte counton 01-10-2022 Lymphocytes Auto (Unsp spec) [#/Vol] 5.16 10*3/uL 0.83-4.51 [facility] Work Phone: Basophil percentageon 2021 Basophils/100 WBC (Bld) 0.2 % 0-1 [facility] Work Phone: Chloride [Moles/Vol] 118 mmol/L 98-107 [facility] Work Phone: Eosinophils/100 WBC (Bld) 0.3 % 0-5 [facility] Work Phone: Glucose [Mass/Vol] 84 mg/dL 74-106 [facility] Work Phone: Neutrophils (Bld) [#/Vol] 2.0 10*3/uL 2.0-7.7 [facility] Work Phone: Neutrophils/100 WBC (Bld) 23.8 % 47-70 [facility] Work Phone: Potassium [Moles/Vol] 4.0 mmol/L 3.5-5.1 [facility] Work Phone: Sodium [Moles/Vol] 139 mmol/L 136-145 [facility] Work Phone: WBC (Bld) [#/Vol] 8.6 10*3/uL 4.4-11.0 [facility] Work Phone: Blood erythrocytes count (nu mber/volume)on 01-10-2022 RBC (Bld) [#/Vol] 4.94 10*6/uL 4.2-5.4 [facility] Work Phone: Blood hemoglobin measurement (mass/volume)on 01-10-2022 Hemoglobin (Bld) [Mass/Vol] 17.4 g/dL 12.0-15.0 [facility] Work Phone: Blood lymphocytes/100 leukoc yteson 01-10-2022 Lymphocytes/100 WBC (Bld) 60.1 % 19-41 [facility] Work Phone: Blood monocytes/100 leukocyt eson 01-10-2022 Monocytes/100 WBC (Bld) 15.5 % 0-10 [facility] Work Phone: Blood platelet mean volumeon 01-10-2022 Platelet mean volume (Bld) [Entitic vol] 10.6 fL 6.2-12.0 [facility] Work Phone: Determination of erythrocyte mean corpuscular volume (MCV)on 01-10-2022 MCV (RBC) [Entitic vol] 106.1 fL 81-99 [facility] Work Phone: Erythrocyte Omer-Fife bod y detectionon 01-10-2022 Omer-Fife bodies LM Ql (Bld) 1+ [facility] Work Phone: Hematocrit Auto (Bld) [Volum e fraction]on 01-10-2022 Hematocrit (Bld) [Volume fraction] 52.4 % 37-47 [facility] Work Phone: Hypochromatic red blood cell detectionon 01-10-2022 Hypochromia Ql (Bld) 3+ [facility] Work Phone: Laboratory - Chemistry and C hemistry - challengeon 01-10-2022 CO2 [Moles/Vol] 17.0 mmol/L 21.0-32.0 [facility] Work Phone: Urea nitrogen/Creatinine [Mass ratio] 21.4 mg/mg 10-20 [facility] Work Phone: Laboratory - Hematology and Cell countson 01-10-2022 Erythrocyte distribution width (RBC) [Entitic vol] 60.6 fL 35.1-43.9 [facility] Work Phone: Erythrocyte distribution width (RBC) [Ratio] 15.3 % 11.6-14.6 [facility] Work Phone: Immature granulocytes/100 WBC (Bld) 0.100 % 0.0-0.9 [facility] Work Phone: Comment on above: IG% - Immature Granu locytes (promyelocytes, myelocytes and metamyelocytes) > 1% indicates that a LEFT SHIFT is Present. MCH (RBC) [Entitic mass] 35.2 pg 27.0-32.0 [facility] Work Phone: Nucleated RBC/100 WBC (Bld) [Ratio] 0 % 0-5 [facility] Work Phone: [phone] MCHC Auto (RBC) [Mass/Vol]on 01-10-2022 MCHC (RBC) [Mass/Vol] 33.2 g/dL 32-36 [facility] Work Phone: No Panel Informationon 01-10 Estimated Creatinine Clearance Calc 43.29 ml/min [facility] Work Phone: Estimated GFR (MDRD) Amer 54 mL/min >60 [facility] Work Phone: Comment on above: GFR Calc Estimated GFR (MDRD) Non-Af Amer 45 mL/min >60 [facility] Work Phone: Comment on above: Non- GFR Calc Platelets bldon 01-10-2022 Platelets (Bld) [#/Vol] 232 10*3/uL 150-450 [facility] Work Phone: Serum or plasma calcium bri urement (mass/volume)on 01-10-2022 Calcium [Mass/Vol] 9.3 mg/dL 8.5-10.1 [facility] Work Phone: [phone] Serum or plasma creatinine m easurement (mass/volume)on 01-10-2022 Creatinine [Mass/Vol] 1.26 mg/dL 0.55-1.02 [facility] Work Phone: Comment on above: The validity of the calculated GFR & GFRAA in patients over 70 years has not been determined. Clinical correlation is essential. Serum or plasma urea nitroge n measurement (mass/volume)on 01-10-2022 Urea nitrogen [Mass/Vol] 27 mg/dL 7-18 [facility] Work Phone: Teardrop cell detectionon Dacrocytes LM Ql (Bld) 1+ [facility] Work Phone: Thin prep Papanicolaou smear with manual screeningon 01-10-2022 Thin prep Papanicolaou smear with manual screening 4 5-15 [facility] Work Phone: Basophil percentageon 2021 Basophil percentage 10-25 SEEN /hpf [facility] Work Phone: Bilirubin [Mass/Vol] 0.50 mg/dL 0.20-1.00 [facility] Work Phone: Comment on above: For patients on eltr ombopag therapy, use of Dimension [place] TBIL is not recommended. Protein [Mass/Vol] 8.8 g/dL 6.4-8.2 [facility] Work Phone: Bilirubin Test strip Ql (U)o n 01-08-2022 Bilirubin Ql (U) Negative Negative [facility] Work Phone: Ketones Test strip Ql (U)on 01-08-2022 Ketones Ql (U) 5 mg/dl Negative [facility] Work Phone: Laboratory - Chemistry and C hemistry - challengeon 01-08-2022 ALP [Catalytic activity/Vol] 131 U/L 45-117 [facility] Work Phone: ALT [Catalytic activity/Vol] 59 U/L 13-56 [facility] Work Phone: Globulin (S) [Mass/Vol] 4.6 g/dL 2.2-4.2 [facility] Work Phone: Mucus LM Ql (Urine sed)on Mucus Ql (Urine sed) 0 SEEN /hpf [facility] Work Phone: Nitrite Test strip Ql (U)on 01-08-2022 Nitrite Ql (U) Negative Negative [facility] Work Phone: No Panel Informationon 01-08 Enteric Bacteriology Norovirus [facility] Work Phone: Enteric Bacteriology Rotavirus [facility] Work Phone: Protein Test strip Ql (U)on 01-08-2022 Protein Ql (U) 30 mg/dl Negative [facility] Work Phone: Serum or plasma albumin bri urement (mass/volume)on 01-08-2022 Albumin [Mass/Vol] 4.2 g/dL 3.2-5.0 [facility] Work Phone: Serum or plasma albumin/glob ulin mass ratioon 01-08-2022 Albumin/Globulin [Mass ratio] 0.9 {ratio} 0.9-2.4 [facility] Work Phone: Squamous epithelial cells de tection in urine sediment by light microscopyon 01-08-2022 Epithelial cells.squamous LM Ql (Urine sed) 0-5 SEEN /hpf [facility] Work Phone: Thin prep Papanicolaou smear with manual screeningon 01-08-2022 Thin prep Papanicolaou smear with manual screening 37 U/L 15-37 [facility] Work Phone: Urine blood detectionon 12-20 RBC Ql (U) 10 /ul Negative [facility] Work Phone: RBC Ql (U) 0-5 SEEN /hpf [facility] Work Phone: Urine clarityon 01-08-2022 Clarity (U) Clear Clear [facility] Work Phone: Urine color determinationon 01-08-2022 Color (U) Yellow Yellow [facility] Work Phone: Urine glucose detectionon Glucose Ql (U) Normal mg/dl Normal [facility] Work Phone: Urine leukocyte esterase det ection by dipstickon 01-08-2022 Leukocyte esterase Test strip Ql (U) 500 /ul Negative [facility] Work Phone: Urine pHon 01-08-2022 pH (U) 5.0 [pH] [facility] Work Phone: Urine sediment bacteria coun t by microscopy (number/high power field)on 01-08-2022 Bacteria LM.HPF (Urine sed) [#/Area] 1 /[HPF] None Seen [facility] Work Phone: Urine specific gravity measu rementon 01-08-2022 Specific gravity (U) [Rel density] 1.025 [facility] Work Phone: [phone] Urobilinogen Auto test strip Ql (U)on 01-08-2022 Urobilinogen Ql (U) Normal mg/dl Normal [facility] Work Phone: [phone] Absolute lymphocyte counton 01-07-2022 Lymphocytes Auto (Unsp spec) [#/Vol] 1.40 10*3/uL 0.83-4.51 [facility] Work Phone: Basophil percentageon 2021 Basophils/100 WBC (Bld) 0.4 % 0-1 [facility] Work Phone: Bilirubin [Mass/Vol] 0.60 mg/dL 0.20-1.00 [facility] Work Phone: [phone] Comment on above: For patients on eltr ombopag therapy, use of Dimension [place] TBIL is not recommended. Chloride [Moles/Vol] 104 mmol/L 98-107 [facility] Work Phone: Eosinophils/100 WBC (Bld) 0.0 % 0-5 [facility] Work Phone: [phone] Glucose [Mass/Vol] 157 mg/dL 74-106 [facility] Work Phone: Comment on above: Fasting Glucose resu lt greater than or equal to 126 mg/dL suggests DIABETES MELLITUS per A.D.A. criteria. Neutrophils (Bld) [#/Vol] 9.2 10*3/uL 2.0-7.7 [facility] Work Phone: Neutrophils/100 WBC (Bld) 75.5 % 47-70 [facility] Work Phone: [phone] Potassium [Moles/Vol] 4.3 mmol/L 3.5-5.1 [facility] Work Phone: [phone] Protein [Mass/Vol] 10.1 g/dL 6.4-8.2 [facility] Work Phone: [phone] Sodium [Moles/Vol] 135 mmol/L 136-145 [facility] Work Phone: [phone] WBC (Bld) [#/Vol] 12.1 10*3/uL 4.4-11.0 [facility] Work Phone: [phone] Blood erythrocytes count (nu mber/volume)on 01-07-2022 RBC (Bld) [#/Vol] 5.30 10*6/uL 4.2-5.4 [facility] Work Phone: [phone] Blood hemoglobin measurement (mass/volume)on 01-07-2022 Hemoglobin (Bld) [Mass/Vol] 18.8 g/dL 12.0-15.0 [facility] Work Phone: [phone] Comment on above: CRITICAL VALUE VERIF IED. CALLED TO TAMIKO JACKSON01/07/22 Kacy Constantino.RESULTS READ BACK BY SAME . Blood lymphocytes/100 leukoc yteson 01-07-2022 Lymphocytes/100 WBC (Bld) 11.5 % 19-41 [facility] Work Phone: [phone] Blood monocytes/100 leukocyt eson 01-07-2022 Monocytes/100 WBC (Bld) 10.9 % 0-10 [facility] Work Phone: [phone] Blood platelet mean volumeon 01-07-2022 Platelet mean volume (Bld) [Entitic vol] 10.2 fL 6.2-12.0 [facility] Work Phone: [phone] Determination of erythrocyte mean corpuscular volume (MCV)on 01-07-2022 MCV (RBC) [Entitic vol] 104.2 fL 81-99 [facility] Work Phone: [phone] Direct bilirubinon Bilirubin.direct [Mass/Vol] 0.29 mg/dL 0.00-0.30 [facility] Work Phone: [phone] Hematocrit Auto (Bld) [Volum e fraction]on 01-07-2022 Hematocrit (Bld) [Volume fraction] 55.2 % 37-47 [facility] Work Phone: [phone] Laboratory - Chemistry and C hemistry - challengeon 01-07-2022 ALP [Catalytic activity/Vol] 146 U/L 45-117 [facility] Work Phone: [phone] ALT [Catalytic activity/Vol] 62 U/L 13-56 [facility] Work Phone: [phone] CO2 [Moles/Vol] 17.0 mmol/L 21.0-32.0 [facility] Work Phone: [phone] Globulin (S) [Mass/Vol] 5.3 g/dL 2.2-4.2 [facility] Work Phone: [phone] Urea nitrogen/Creatinine [Mass ratio] 16.1 mg/mg 10-20 [facility] Work Phone: [phone] Laboratory - Hematology and Cell countson 01-07-2022 Erythrocyte distribution width (RBC) [Entitic vol] 56.3 fL 35.1-43.9 [facility] Work Phone: [phone] Erythrocyte distribution width (RBC) [Ratio] 14.4 % 11.6-14.6 [facility] Work Phone: [phone] Immature granulocytes/100 WBC (Bld) 1.700 % 0.0-0.9 [facility] Work Phone: [phone] Comment on above: IG% - Immature Granu locytes (promyelocytes, myelocytes and metamyelocytes) > 1% indicates that a LEFT SHIFT is Present. MCH (RBC) [Entitic mass] 35.5 pg 27.0-32.0 [facility] Work Phone: [phone] Nucleated RBC/100 WBC (Bld) [Ratio] 0 % 0-5 [facility] Work Phone: [phone] MCHC Auto (RBC) [Mass/Vol]on 01-07-2022 MCHC (RBC) [Mass/Vol] 34.1 g/dL 32-36 [facility] Work Phone: No Panel Informationon 01-07 Estimated Creatinine Clearance Calc 25.59 ml/min [facility] Work Phone: Estimated GFR (MDRD) Amer 29 mL/min >60 [facility] Work Phone: Comment on above: GFR Calc Estimated GFR (MDRD) Non-Af Amer 24 mL/min >60 [facility] Work Phone: Comment on above: Non- GFR Calc Platelets bldon 01-07-2022 Platelets (Bld) [#/Vol] 277 10*3/uL 150-450 [facility] Work Phone: Serum or plasma albumin bri urement (mass/volume)on 01-07-2022 Albumin [Mass/Vol] 4.8 g/dL 3.2-5.0 [facility] Work Phone: Serum or plasma calcium bri urement (mass/volume)on 01-07-2022 Calcium [Mass/Vol] 10.4 mg/dL 8.5-10.1 [facility] Work Phone: Serum or plasma creatinine m easurement (mass/volume)on 01-07-2022 Creatinine [Mass/Vol] 2.17 mg/dL 0.55-1.02 [facility] Work Phone: Comment on above: The validity of the calculated GFR & GFRAA in patients over 70 years has not been determined. Clinical correlation is essential. Serum or plasma urea nitroge n measurement (mass/volume)on 01-07-2022 Urea nitrogen [Mass/Vol] 35 mg/dL 7-18 [facility] Work Phone: [phone] Thin prep Papanicolaou smear with manual screeningon 01-07-2022 Thin prep Papanicolaou smear with manual screening 42 U/L 15-37 [facility] Work Phone: [phone] Thin prep Papanicolaou smear with manual screening 14 5-15 [facility] Work Phone: THAISShayna 07-03-2021 [facility] Telephone ([facility]) CONG SMITH ( ) 1950 [facility] Date Time Provider Department 07/03/21 EMI PRIDE During your visit today, we recorded the following information about you: Emi Pride, Crossing Watchman 07/03/2021 4:49 PM Signed Spoke to pt. [facility] facility in [place]. Allergies As of Date: 07/03/2021 Noted Allergy Reaction FORTEO (TERIPARATIDE) 09/18/2018 14 - Other: See Comments Comments: Hypercalcemia 08/2018 IODINE (CONTRAST DYE) 06/26/2014 4 - Hives Comments: Hives, sneezing OMNIPAQUE (IOHEXOL) 07/02/2014 4 - Hives Comments: Sneezing, pruritis (ears), and hive. Date Reviewed: 07/03/2021 Reviewed by: Mona Quiñones RN - Fully Assessed Reason for Visit: [facility] [[id number]] Prescriptions as of 07/03/2021 - mometasone (NASONEX) 50 mcg/actuation nasal spray Use 2 Sprays in the nose once daily. Rinse mouth after use. - albuterol HFA (PROAIR HFA) 90 mcg/actuation inhaler Inhale 2 Puffs as instructed every 4 hours as needed for wheezing/shortness of breath. - Nebulizer and Compressor For Neb 1 Each twice daily. - albuterol (PROVENTIL) 2.5 mg /3 mL (0.083 %) nebulizer solution Use 3 mL via nebulizer three times daily as needed for wheezing/shortness of breath. Inhale over 5-15 minutes - sodium chloride (NEBUSAL) 3 % nebulizer solution Use 4 mL via nebulizer twice daily. - guaiFENesin (MUCINEX) 600 mg 12 hr tablet Take 1 tablet by mouth twice daily. - albuterol HFA (PROAIR HFA) 90 mcg/actuation inhaler Inhale 2 Puffs as instructed every 4 hours as needed. - tobramycin-dexAMETHason e (TOBRADEX) ophthalmic suspension Use 1 Drop in both eyes twice daily. - lifitegrast (XIIDRA) 5 % Use 1 Drop in eyes twice daily. - levothyroxine (SYNTHROID) 100 mcg tablet Take 1 tablet by mouth once daily. Take on empty stomach. For Thyroid - ergocalciferol 50,000 unit capsule (VITAMIN D2, DRISDOL) take 1 capsule by mouth every week - metoprolol tartrate, short acting, (LOPRESSOR) 25 mg tablet Take 1 tablet by mouth once daily. - fluorometholone (FML LIQUID FILM) 0.1 % ophthalmic suspension Use 1 Drop in both eyes twice daily. - Flaxseed Oil 1,000 mg cap Take 1,000 mg by mouth once daily. - estradiol (ESTRACE) 0.01 % (0.1 mg/gram) vaginal cream Use 0.5 g vaginally two times a week. - clobetasol (TEMOVATE) 0.05 % ointment Apply 1 application to affected area once daily. - 0.9 % sodium chloride (0.9% NACL) NURSING USE ONLY: USED FOR IMPLANTED VASCULAR ACCESS DEVICE (IVAD) ACCESS. AMBULATORY/OUTPATIENT: PLEASE REORDER UPON HOSPITAL DISCHARGE May access implanted vascular access device (IVAD) as needed for treatment. Flush IVAD with 10-20 mL NS every 4 weeks and PRN when IVAD not in use. - heparin 100 unit/mL injection NURSING USE ONLY: USE FOR IMPLANTED VASCULAR ACCESS DEVICE (IVAD) FLUSH. AMBULATORY/OUTPATIENT: PLEASE REORDER UPON HOSPITAL DISCHARGE May access implanted vascular access device (IVAD) as needed for treatment. Before de-accessing port, flush with 10-20ml normal saline and follow with 5 mL heparin (100 units/mL) (if no heparin allergy). De-access port on treatment completion. - folic acid 1 mg tablet Folic Acid Folic Acid Active 400 MCG DAILY May 06, 2019 11:16pm 05-06-2019 [facility] ([id number]) - sodium chloride (PRATIMA 128) 5 % ophthalmic solution Use 1 Drop in both eyes daily at bedtime. - esomeprazole (NEXIUM) 40 mg capsule TAKE 1 CAPSULE DAILY - acyclovir (ZOVIRAX) 400 mg tablet TAKE 1 TABLET TWICE A DAY - dexamethasone (DECADRON) 0.5 mg/5 mL solution Take 10 mL by mouth four times daily. (swish for 2 minutes and spit out) Can mix with Tacrolimus rinse. - pramoxine-hydrocortison e (PROCTOFOAM HC) rectal foam 1 Applicator by RECTAL route as needed. - MULTIVITAMIN ORAL Take 1 tablet by mouth once daily. - calcium-cholecalciferol , D3, (OSCAL+D 250) 250-125 mg-unit per tablet Take 1 tablet by mouth twice daily. - ipratropium bromide (ATROVENT) 42 mcg (0.06 %) nasal spray Use 2 Sprays in the nose twice daily as needed. - tacrolimus 0.1 mg/mL oral rinse 5 mL four times daily. Swish and spit. Do NOT swallow. Can mix with Dexamethasone. For pharmacy use only: Tacrolimus 10 mg; Ora Plus 50 mL; Ora Sweet qs to 100 mL - magnesium oxide (MAG-OX) 400 mg (241.3 mg magnesium) tablet Take two tablets by mouth twice daily. - vitamin b complex tab Take 1 tablet by mouth once daily. - Lactobacillus acidophilus (PROBIOTIC ORAL) Take 1 capsule by mouth once daily. - mupirocin (BACTROBAN) 2 % ointment Apply to ulcer and surrounding skin once daily with clobetasol - ondansetron (ZOFRAN) 8 mg tablet Take 1 tablet by mouth every 8 hours as needed. - COMPOUNDED PRESCRIPTION Needs supplies as listed below with refills to last a year Yolanda skin barrier [id number] Curitity gauze pad [id number] [place] cohesive (more content not included)... Normal [facility] CNPN Telephone ([facility]) CONG SMITH ( ) 1950 [facility] Date Time Provider Department 10/14/21 EMI PRIDE During your visit today, we recorded the following information about you: Emi Pride, Crossing Watchman 07/03/2021 4:12 PM Signed Left message for patient regarding Pulmonary Rehab. Encouraged patient to call and schedule orientation. Allergies As of Date: 07/03/2021 Noted Allergy Reaction FORTEO (TERIPARATIDE) 09/18/2018 14 - Other: See Comments Comments: Hypercalcemia 08/2018 IODINE (CONTRAST DYE) 06/26/2014 4 - Hives Comments: Hives, sneezing OMNIPAQUE (IOHEXOL) 07/02/2014 4 - Hives Comments: Sneezing, pruritis (ears), and hive. Date Reviewed: 07/03/2021 Reviewed by: Mona Quiñones RN - Fully Assessed Reason for Visit: Pulm Rehab [[id number]] Cmt: LM to schedule orient Prescriptions as of 07/03/2021 - mometasone (NASONEX) 50 mcg/actuation nasal spray Use 2 Sprays in the nose once daily. Rinse mouth after use. - albuterol HFA (PROAIR HFA) 90 mcg/actuation inhaler Inhale 2 Puffs as instructed every 4 hours as needed for wheezing/shortness of breath. - Nebulizer and Compressor For Neb 1 Each twice daily. - albuterol (PROVENTIL) 2.5 mg /3 mL (0.083 %) nebulizer solution Use 3 mL via nebulizer three times daily as needed for wheezing/shortness of breath. Inhale over 5-15 minutes - sodium chloride (NEBUSAL) 3 % nebulizer solution Use 4 mL via nebulizer twice daily. - guaiFENesin (MUCINEX) 600 mg 12 hr tablet Take 1 tablet by mouth twice daily. - albuterol HFA (PROAIR HFA) 90 mcg/actuation inhaler Inhale 2 Puffs as instructed every 4 hours as needed. - tobramycin-dexAMETHason e (TOBRADEX) ophthalmic suspension Use 1 Drop in both eyes twice daily. - lifitegrast (XIIDRA) 5 % Use 1 Drop in eyes twice daily. - levothyroxine (SYNTHROID) 100 mcg tablet Take 1 tablet by mouth once daily. Take on empty stomach. For Thyroid - ergocalciferol 50,000 unit capsule (VITAMIN D2, DRISDOL) take 1 capsule by mouth every week - metoprolol tartrate, short acting, (LOPRESSOR) 25 mg tablet Take 1 tablet by mouth once daily. - fluorometholone (FML LIQUID FILM) 0.1 % ophthalmic suspension Use 1 Drop in both eyes twice daily. - Flaxseed Oil 1,000 mg cap Take 1,000 mg by mouth once daily. - estradiol (ESTRACE) 0.01 % (0.1 mg/gram) vaginal cream Use 0.5 g vaginally two times a week. - clobetasol (TEMOVATE) 0.05 % ointment Apply 1 application to affected area once daily. - 0.9 % sodium chloride (0.9% NACL) NURSING USE ONLY: USED FOR IMPLANTED VASCULAR ACCESS DEVICE (IVAD) ACCESS. AMBULATORY/OUTPATIENT: PLEASE REORDER UPON HOSPITAL DISCHARGE May access implanted vascular access device (IVAD) as needed for treatment. Flush IVAD with 10-20 mL NS every 4 weeks and PRN when IVAD not in use. - heparin 100 unit/mL injection NURSING USE ONLY: USE FOR IMPLANTED VASCULAR ACCESS DEVICE (IVAD) FLUSH. AMBULATORY/OUTPATIENT: PLEASE REORDER UPON HOSPITAL DISCHARGE May access implanted vascular access device (IVAD) as needed for treatment. Before de-accessing port, flush with 10-20ml normal saline and follow with 5 mL heparin (100 units/mL) (if no heparin allergy). De-access port on treatment completion. - folic acid 1 mg tablet Folic Acid Folic Acid Active 400 MCG DAILY May 06, 2019 11:16pm 05-06-2019 [facility] ([id number]) - sodium chloride (PRATIMA 128) 5 % ophthalmic solution Use 1 Drop in both eyes daily at bedtime. - esomeprazole (NEXIUM) 40 mg capsule TAKE 1 CAPSULE DAILY - acyclovir (ZOVIRAX) 400 mg tablet TAKE 1 TABLET TWICE A DAY - dexamethasone (DECADRON) 0.5 mg/5 mL solution Take 10 mL by mouth four times daily. (swish for 2 minutes and spit out) Can mix with Tacrolimus rinse. - pramoxine-hydrocortison e (PROCTOFOAM HC) rectal foam 1 Applicator by RECTAL route as needed. - MULTIVITAMIN ORAL Take 1 tablet by mouth once daily. - calcium-cholecalciferol , D3, (OSCAL+D 250) 250-125 mg-unit per tablet Take 1 tablet by mouth twice daily. - ipratropium bromide (ATROVENT) 42 mcg (0.06 %) nasal spray Use 2 Sprays in the nose twice daily as needed. - tacrolimus 0.1 mg/mL oral rinse 5 mL four times daily. Swish and spit. Do NOT swallow. Can mix with Dexamethasone. For pharmacy use only: Tacrolimus 10 mg; Ora Plus 50 mL; Ora Sweet qs to 100 mL - magnesium oxide (MAG-OX) 400 mg (241.3 mg magnesium) tablet Take two tablets by mouth twice daily. - vitamin b complex tab Take 1 tablet by mouth once daily. - Lactobacillus acidophilus (PROBIOTIC ORAL) Take 1 capsule by mouth once daily. - mupirocin (BACTROBAN) 2 % ointment Apply to ulcer and surrounding skin once daily with clobetasol - ondansetron (ZOFRAN) 8 mg tablet Take 1 tablet by mouth every 8 hours as needed. - COMPOUNDED PRESCRIPTION Needs supplies as listed below with refills to last (more content not included)... Normal [facility] XR Chest PA and Lateralon IMPRESSION: Overall findings not significantly changed. Machine Silk Screen Printer: [email or web address] Transcribe Date/Time: May 27 2021 2:00P Dictated by : CAMILA BAUTISTA MD This examination was interpreted and the report reviewed and electronically signed by: CAMILA BAUTISTA MD on May 27 2021 2:02PM [facility] DIVISION OF RADIOLOGY * * *Final Report* * * DATE OF EXAM: May 27 2021 1:57PM WOX 5291 - XR CHEST 2V FRONTAL/LAT / PROCEDURE REASON: Cough * * * * Physician Interpretation * * * * EXAMINATION: CHEST RADIOGRAPH (2 VIEW FRONTAL & LATERAL) CLINICAL HISTORY: Cough MQ: XC2_6 EXAM DATE/TIME: 05/27/2021 1:57 PM COMPARISON: Chest x-ray on 05/13/2021. RESULT: Lines, tubes, and devices: No change in position of left chest port catheter. Lungs and pleura: There are linear or bandlike opacities overlying the bilateral mid lung zones, likely representing atelectasis or scarring. There appears be mild left basilar atelectasis. No new consolidation seen. No masses. No pleural effusions or pneumothorax. Cardiomediastinal silhouette: Stable cardiomediastinal silhouette, with prominent right hilum. Bones and soft tissues: The spine shows mild degenerative changes. An IVC filter in place. DIVISION OF RADIOLOGY Provider, [facility] - 05/27/2021 * * *Final Report* * * DATE OF EXAM: May 27 2021 1:57PM WOX 5291 - XR CHEST 2V FRONTAL/LAT / PROCEDURE REASON: Cough * * * * Physician Interpretation * * * * EXAMINATION: CHEST RADIOGRAPH (2 VIEW FRONTAL & LATERAL) CLINICAL HISTORY: Cough MQ: XC2_6 EXAM DATE/TIME: 05/27/2021 1:57 PM COMPARISON: Chest x-ray on 05/13/2021. RESULT: Lines, tubes, and devices: No change in position of left chest port catheter. Lungs and pleura: There are linear or bandlike opacities overlying the bilateral mid lung zones, likely representing atelectasis or scarring. There appears be mild left basilar atelectasis. No new consolidation seen. No masses. No pleural effusions or pneumothorax. Cardiomediastinal silhouette: Stable cardiomediastinal silhouette, with prominent right hilum. Bones and soft tissues: The spine shows mild degenerative changes. An IVC filter in place. IMPRESSION IMPRESSION: Overall findings not significantly changed. Machine Silk Screen Printer: [email or web address] Transcribe Date/Time: May 27 2021 2:00P Dictated by : CAMILA BAUTISTA MD This examination was interpreted and the report reviewed and electronically signed by: CAMILA BAUTISTA MD on May 27 2021 2:02PM EST [facility] Radiology Study observation (narrative) [facility] XR Chest PA and LateralOrder ed By: Cc Provider on 05-27-2021 [facility] XR Chest PA and Lateralon IMPRESSION: Platelike atelectasis in the left midlung zone. Machine Silk Screen Printer: [facility] Transcribe Date/Time: May 13 2021 4:01P Dictated by : AMITA DORANTES MD This examination was interpreted and the report reviewed and electronically signed by: AMITA DORANTES MD on May 13 2021 4:02PM EST DIVISION OF RADIOLOGY * * *Final Report* * * DATE OF EXAM: May 13 2021 3:54PM WOX 5291 - XR CHEST 2V FRONTAL/LAT / PROCEDURE REASON: Lower respiratory infection * * * * Physician Interpretation * * * * EXAMINATION: CHEST RADIOGRAPH (2 VIEW FRONTAL & LATERAL) CLINICAL HISTORY: Lower respiratory infection MQ: XC2_6 EXAM DATE/TIME: 05/13/2021 3:54 PM COMPARISON: September 28, 2018 RESULT: Lines, tubes, and devices: Left chest port tip at the superior cavoatrial junction. IVC filter present. Lungs and pleura: Platelike atelectasis in the left midlung zone. No consolidation. No lung mass. No pleural effusion. No pneumothorax. Cardiomediastinal silhouette: Normal cardiomediastinal silhouette. Bones and soft tissues: Osseous demineralization and degenerative changes. DIVISION OF RADIOLOGY Provider, [facility] - 05/13/2021 * * *Final Report* * * DATE OF EXAM: May 13 2021 3:54PM WOX 5291 - XR CHEST 2V FRONTAL/LAT / PROCEDURE REASON: Lower respiratory infection * * * * Physician Interpretation * * * * EXAMINATION: CHEST RADIOGRAPH (2 VIEW FRONTAL & LATERAL) CLINICAL HISTORY: Lower respiratory infection MQ: XC2_6 EXAM DATE/TIME: 05/13/2021 3:54 PM COMPARISON: September 28, 2018 RESULT: Lines, tubes, and devices: Left chest port tip at the superior cavoatrial junction. IVC filter present. Lungs and pleura: Platelike atelectasis in the left midlung zone. No consolidation. No lung mass. No pleural effusion. No pneumothorax. Cardiomediastinal silhouette: Normal cardiomediastinal silhouette. Bones and soft tissues: Osseous demineralization and degenerative changes. IMPRESSION IMPRESSION: Platelike atelectasis in the left midlung zone. Machine Silk Screen Printer: FACUNDO Transcribe Date/Time: May 13 2021 4:01P Dictated by : AMITA DORANTES MD This examination was interpreted and the report reviewed and electronically signed by: AMITA DORANTES MD on May 13 2021 4:02PM EST [facility] Radiology Study observation (narrative) Cedric [facility] XR Chest PA and LateralOrder ed By: Ccf Provider on 05-13-2021 [facility] POC CBC and Differentialon 1 Basophils Auto #/vol (Bld) 0.02 10*3/uL Invalid Interpretation Code PED FSED POCT LAB Basophils/100 WBC Auto (Bld) 0.1 % Invalid Interpretation Code PED FSED POCT LAB Eosinophils Auto #/vol (Bld) 0.32 10*3/uL Invalid Interpretation Code PED FSED POCT LAB Eosinophils/100 WBC Auto (Bld) 2.2 % Invalid Interpretation Code PED FSED POCT LAB Erythrocyte distribution width Auto Entitic volume (RBC) 15.3 % High 11.6 - 14.8 % PED FSED POCT LAB Hematocrit Auto Volume Fraction (Bld) 29.6 % Low 36 - 46 % PED FSED POCT LAB Hemoglobin mass conc (Bld) 10.7 g/dL Low 12 - 16 g/dL PED FSED POCT LAB Immature granulocytes #/vol (Bld) 0.03 10*3/uL Invalid Interpretation Code PED FSED POCT LAB Immature granulocytes/100 WBC (Bld) 0.20 % Invalid Interpretation Code PED FSED POCT LAB Comment on above: The IG parameter is the percentage of metamyelocytes, myelocytes, and promyelocytes. Interpretation and review of laboratory results Abnormal Invalid Interpretation Code PED FSED POCT LAB Lymphocytes Auto #/vol (Bld) 3.39 10*3/uL Invalid Interpretation Code PED FSED POCT LAB Lymphocytes/100 WBC Auto (Bld) 23.5 % Invalid Interpretation Code PED FSED POCT LAB MCH Auto Entitic mass (RBC) 33.8 pg Invalid Interpretation Code 26 - 34 pg PED FSED POCT LAB MCHC Auto mass conc (RBC) 36.1 g/dL Invalid Interpretation Code 31 - 37 g/dL PED FSED POCT LAB MCV Auto Entitic volume (RBC) 93.4 fL Invalid Interpretation Code 80 - 100 fL PED FSED POCT LAB Monocytes Auto #/vol (Bld) 1.08 10*3/uL High PED FSED POCT LAB Monocytes/100 WBC Auto (Bld) 7.5 % Invalid Interpretation Code PED FSED POCT LAB Neutrophils Auto #/vol (Bld) 9.60 10*3/uL High PED FSED POCT LAB Neutrophils/100 WBC Auto (Bld) 66.5 % Invalid Interpretation Code PED FSED POCT LAB Platelet mean volume Auto Entitic volume (Bld) 10.5 fL Invalid Interpretation Code 9 - 15.5 fL PED FSED POCT LAB Platelets Auto #/vol (Bld) 321 10*3/uL Invalid Interpretation Code PED FSED POCT LAB RBC Auto #/vol (Bld) 3.17 10*6/uL Low PE D FSED POCT LAB WBC Auto #/vol (Bld) 14.44 10*3/uL High P ED FSED POCT LAB POC Liver Panel Pluson 09-17 Alanine molar conc (DBS) 26 U/L Invalid Interpretation Code 0 - 40 U/L PED FSED POCT LAB Albumin mass conc 3.2 g/dL Invalid Interpretation Code 3.2 - 5.2 g/dL PED FSED POCT LAB ALP enzyme act/vol (Bld) 114 U/L Invalid Interpretation Code 40 - 150 U/L PED FSED POCT LAB Amylase enzyme act/vol 93 U/L Invalid Interpretation Code 25 - 115 U/L PED FSED POCT LAB AST Ql 40 U/L Invalid Interpretation Code 0 - 45 U/L PED FSED POCT LAB Bilirubin mass conc 0.5 mg/dL Invalid Interpretation Code 0 - 1.3 mg/dL PED FSED POCT LAB Gamma glutamyl transferase enzyme act/vol 132 U/L High 7 - 33 U/L PED FSED POCT LAB Interpretation and review of laboratory results Abnormal Invalid Interpretation Code PED FSED POCT LAB Protein mass conc (U) 5.7 g/dL Low 6 - 8 g/dL PED FSED POCT LAB POC Urinalysis Dipstick, Aut oon 09-17-2018 Bilirubin Ql (U) Small Abnormal Negative PED FSED POCT LAB Glucose Ql (U) Negative Invalid Interpretation Code Negative mg/dL PED FSED POCT LAB Hemoglobin Test strip Ql (U) Negative Invalid Interpretation Code Negative PED FSED POCT LAB Interpretation and review of laboratory results Abnormal Invalid Interpretation Code PED FSED POCT LAB Ketones Ql (U) Trace Abnormal Negative mg/dL PED FSED POCT LAB Leukocyte esterase Test strip Ql (U) Small Abnormal Negative PED FSED POCT LAB Nitrite Test strip Ql (U) Negative Invalid Interpretation Code Negative PED FSED POCT LAB pH Test strip (U) 5.5 [pH] Invalid Interpretation Code PED FSED POCT LAB Protein Test strip Ql (U) 30 Abnormal Negative mg/dL PED FSED POCT LAB Specific gravity Relative Density (U) 1.030 High PED FSED POCT LAB Urobilinogen Test strip Qn (U) 0.2 mg/dL Invalid Interpretation Code <2.0 PED FSED POCT LAB POC Venous Blood Gases with Full Panelon 09-17-2018 Base excess Calculated molar conc (BldV) -1.0 Invalid Interpretation Code PED FSED POCT LAB Calcium.ionized mass conc 5.1 mg/dL Invalid Interpretation Code 4.5 - 5.3 mg/dL PED FSED POCT LAB Chloride molar conc 106 mmol/L Invalid Interpretation Code 98 - 108 mmol/L PED FSED POCT LAB CO2 ppres (BldV) 33.1 Low PED FSED POCT LAB Creatinine mass conc 0.83 mg/dL Invalid Interpretation Code 0.6 - 1.2 mg/dL PED FSED POCT LAB GFR/1.73 sq M predicted among non-blacks MDRD vol rate/area (S/P/Bld) The eGFR should be used for monitoring renal function only and not for medication dosing. Invalid Interpretation Code PED FSED POCT LAB GFR/1.73 sq M.predicted MDRD vol rate/area 73 mL/min/{1.73_m2} Invalid Interpretation Code >=60 mL/min/1.73 m2 PED FSED POCT LAB Glucose mass conc 101 mg/dL High 65 - 99 mg/dL PED FSED POCT LAB HCO3 molar conc (Bld) 22.5 mmol/L Low 24 - 2 8 mmol/L PED FSED POCT LAB Hematocrit Auto Volume Fraction (Bld) 37 % Invalid Interpretation Code 36 - 46 % PED FSED POCT LAB Hemoglobin mass conc (Bld) 12.5 g/dL Invalid Interpretation Code 12 - 16 g/dL PED FSED POCT LAB Interpretation and review of laboratory results Abnormal Invalid Interpretation Code PED FSED POCT LAB Lactate molar conc 1.2 mmol/L Invalid Interpretation Code 0.6 - 2 mmol/L PED FSED POCT LAB Oxygen ppres (BldV) 34 Invalid Interpretation Code PED FSED POCT LAB Oxygen saturation in Venous blood 69.3 % Invalid Interpretation Code PED FSED POCT LAB pH (BldV) 7.44 High PED FSED POCT LAB Potassium molar conc 3.1 mmol/L Low 3.5 - 5 .1 mmol/L PED FSED POCT LAB Sodium molar conc 139 mmol/L Invalid Interpretation Code 135 - 145 mmol/L PED FSED POCT LAB CT ABD/PEL W IVCONon 05-13- 018 CT ABD/PEL W IVCON * * *Final Report* * *DATE OF EXAM: May 13 2018 3:26PM [facility] [place] ABD/PEL W IVCON / REASON: multiple diagnoses * * * * Physician Interpretation * * * * EXAMINATION: CHEST CT WITH CONTRASTCLINICAL HISTORY: Fever, unspecified Acute myeloblastic leukemia, in remissionTechnique: Spiral CT acquisition of the chest from the thoracic inlet to the upper abdomen following IV contrast.MQ: [id number]: 150 mL Omnipaque 300 IVCT Dose-Length Product: 580 mGy*cmCT Dose Reduction Employed: No dose reduction techniques were requiredComparison: CT of the chest dated 08/08/2015RESULT:Limita tions: None.Lines, tubes, and devices: A Port-A-Cath is noted with its tip in the region of the cavoatrial junction.Lung parenchyma and pleura: No consolidation. No suspicious pulmonary nodule. No pleural effusion. Central airways are patent. The previously noted lower lobe consolidation/atelectas is and left pleural effusion are no longer identified.Thoracic inlet, heart, and mediastinum: No lymphadenopathy in the axillary, mediastinal, or hilar regions. The thoracic aorta and main pulmonary artery are normal in caliber. The cardiac chambers are normal in size. No coronary artery atherosclerotic calcifications are noted, although the study is not optimized for coronary assessment. No pericardial effusion or thickening. A small hiatal hernia is noted.Bones and soft tissues: No destructive bone lesion. Chest wall is unremarkable.IMPRESSION :No CT evidence of acute abnormality.EXAMINATION : CT ABDOMEN AND PELVIS WITH IV CONTRASTCLINICAL HISTORY: Fever. Acute myeloblastic leukemiaTECHNIQUE: CT of the abdomen and pelvis was performed using standard technique, scanning from just above the dome of the diaphragm to the symphysis pubis.MQ: [id number]:IV: 150 ml of Omnipaque 300Oral: 50ML Omnipaque 240 W 850ML WaterCT Radiation dose: Integrated Dose-length product (DLP) for this visit = 580 mGy*cm.CT Dose Reduction Employed: No dose reduction techniques were requiredCOMPARISON: 04/13/2018RESULT:Liver: No focal abnormalities are identified.Biliary: The gallbladder appears surgically absent.Spleen: No mass. No splenomegaly.Pancreas: No mass or duct dilation. Fatty atrophy of the pancreas is noted.Adrenals: No mass.Kidneys: A 2.3 cm cyst is noted in the lower pole the left kidney.GI tract: Postsurgical changes are noted status post subtotal colectomy. There is an ileostomy in the right lower quadrant with a large parastomal hernia containing small bowel loops. No bowel obstruction is identified. This appears similar to the prior study.Lymph nodes: No abdominal or pelvic lymphadenopathy.Mesente ry/Peritoneum: No ascites or mass.Retroperitoneum: No mass.Vasculature: No evidence of aortic aneurysm or dissection. At the tricuspid occasions are present involving the abdominal aorta. The celiac axis and SMA are patent. The portal vein and branches, splenic vein, SMV, and hepatic veins are patent. An IVC filter is in placePelvis: No mass, ascites or fluid collection.Bones/Soft Tissues: No acute fractures or osseous destructive abnormalities are identified.IMPRESSION: No acute findings are identified. Postsurgical changes status post subtotal colectomy with a ileostomy a large parastomal hernia which appears similar to the prior study. Findings consistent with a left renal cyst. No lymphadenopathy is identified. Tr anscriptionist: FACUNDO Transcribe Date/Time: May 13 2018 3:32PDictated by : ARMAND BONILLA MDThis examination was interpreted and the report reviewed and electronically signed by: ARMAND BONILLA MD on May 13 2018 3:54PM [id number] [facility] CT CHEST W IVCONon 8 CT CHEST W IVCON * * *Final Report* * *DATE OF EXAM: May 13 2018 3:26PM [facility] [place] CHEST W IVCON / REASON: multiple diagnoses * * * * Physician Interpretation * * * * EXAMINATION: CHEST CT WITH CONTRASTCLINICAL HISTORY: Fever, unspecified Acute myeloblastic leukemia, in remissionTechnique: Spiral CT acquisition of the chest from the thoracic inlet to the upper abdomen following IV contrast.MQ: [id number]: 150 mL Omnipaque 300 IVCT Dose-Length Product: 580 mGy*cmCT Dose Reduction Employed: No dose reduction techniques were requiredComparison: CT of the chest dated 08/08/2015RESULT:Limita tions: None.Lines, tubes, and devices: A Port-A-Cath is noted with its tip in the region of the cavoatrial junction.Lung parenchyma and pleura: No consolidation. No suspicious pulmonary nodule. No pleural effusion. Central airways are patent. The previously noted lower lobe consolidation/atelectas is and left pleural effusion are no longer identified.Thoracic inlet, heart, and mediastinum: No lymphadenopathy in the axillary, mediastinal, or hilar regions. The thoracic aorta and main pulmonary artery are normal in caliber. The cardiac chambers are normal in size. No coronary artery atherosclerotic calcifications are noted, although the study is not optimized for coronary assessment. No pericardial effusion or thickening. A small hiatal hernia is noted.Bones and soft tissues: No destructive bone lesion. Chest wall is unremarkable.IMPRESSION :No CT evidence of acute abnormality.EXAMINATION : CT ABDOMEN AND PELVIS WITH IV CONTRASTCLINICAL HISTORY: Fever. Acute myeloblastic leukemiaTECHNIQUE: CT of the abdomen and pelvis was performed using standard technique, scanning from just above the dome of the diaphragm to the symphysis pubis.MQ: [id number]:IV: 150 ml of Omnipaque 300Oral: 50ML Omnipaque 240 W 850ML WaterCT Radiation dose: Integrated Dose-length product (DLP) for this visit = 580 mGy*cm.CT Dose Reduction Employed: No dose reduction techniques were requiredCOMPARISON: 04/13/2018RESULT:Liver: No focal abnormalities are identified.Biliary: The gallbladder appears surgically absent.Spleen: No mass. No splenomegaly.Pancreas: No mass or duct dilation. Fatty atrophy of the pancreas is noted.Adrenals: No mass.Kidneys: A 2.3 cm cyst is noted in the lower pole the left kidney.GI tract: Postsurgical changes are noted status post subtotal colectomy. There is an ileostomy in the right lower quadrant with a large parastomal hernia containing small bowel loops. No bowel obstruction is identified. This appears similar to the prior study.Lymph nodes: No abdominal or pelvic lymphadenopathy.Mesente ry/Peritoneum: No ascites or mass.Retroperitoneum: No mass.Vasculature: No evidence of aortic aneurysm or dissection. At the tricuspid occasions are present involving the abdominal aorta. The celiac axis and SMA are patent. The portal vein and branches, splenic vein, SMV, and hepatic veins are patent. An IVC filter is in placePelvis: No mass, ascites or fluid collection.Bones/Soft Tissues: No acute fractures or osseous destructive abnormalities are identified.IMPRESSION: No acute findings are identified. Postsurgical changes status post subtotal colectomy with a ileostomy a large parastomal hernia which appears similar to the prior study. Findings consistent with a left renal cyst. No lymphadenopathy is identified. Tr anscriptionist: PSCB Transcribe Date/Time: May 13 2018 3:32PDictated by : ARMAND BONILLA MDThis examination was interpreted and the report reviewed and electronically signed by: ARMAND BONILLA MD on May 13 2018 3:54PM [id number] CN [facility] NURSING PROGon 05-13-2018 Protein mass conc HNO ID: [id number]: Shannon (Rn) SKYLAR Nairervice: PICC TeamAuthor Type: Registered NurseType: Nursing Progress NoteFiled: 05/13/2018 12:55 PMNote Text: Radiology Service Progress NotePATIENT NAME: Cong IbarraRN: [id number] OF SERVICE: May 13, 2018TIME: 12:53 PMPATIENT IDENTITY VERIFICATION COMPLETED USING TWO (2) METHODS: Patientconfirmed name verbally and ID band matches..PATIENT GENDER DATA: Female. status: : NoBreastfeeding status: NO.CONTRAST INDUCED NEPHROPATHY RISK FACTORS: Patient age > 60 yearsCREATININE:Creatin ineDate Value Ref Range Zqaifa3104/25/2018 1.28 (H) 0.58 - 0.96 mg/dL Final04/14/2018 1.02 (H) 0.58 - 0.96 mg/dL Final02/28/2018 1.09 (H) 0.58 - 0.96 mg/dL Final eGFR-All Other RacesDate Value Ref Range Gcgdip2704/25/2018 42 . FinalComment:eGFR (Estimated GFR) Units of measure: mL/min/1.73 meters squaredeGFR is derived from the reexpressed MDRD Study equation using thefollowingparameters: serum creatinine, age, gender and race. The creatinine assayhasbeen calibrated to be traceable to IDMS.An eGFR <60 mL/min/1.73m2 for >3 months is consistent with chronic kidneydisease. Refer to KDOQI guidelines for clinical interpretation.In patients with unstable renal function, e.g. those with acute kidneyinjury,the eGFR may not accurately reflect actual GFR. eGFR-Afri can AmericanDate Value Ref Range Evyisz4104/25/2018 50 Final P.O.C.T. RESULTS: N/A May 13, 2018TREATMENT: IV Hydration: Normal Saline solution 500 ml over 1 hours. andIV Infusion: started at 1300 IV infusion, completed at 1400.ALLERGIES: Reviewed and unchangedCONTRAST ALLERGY: Yes- pt had prepIV SITE: Ambulatory: A power injectable Mediport was accessed in theLeft chest with a 3/4 inch 20 gauge needle. Blood Return, Flushed easilywith normal saline, Good Blood Return Post Injection, Flushed with 20 ccsaline followed by Heparin 500 units/5 cc and No ComplicationsIV SITE APPEARANCE: Clean,Dry and IntactSIGNED BY: Feliciano Serna 2017 12:53 PM [facility] COVID-19 virus antigen assay SARS-CoV-2 (COVID-19) Ag IA.rapid Ql (Resp) [facility] Work Phone: Culture, urine Bacteria identified Cx Nom (U) Mixed Gram Pos & Gram Neg Org [facility] Work Phone: Bacteria identified Cx Nom (U) Presumptive E. coli [facility] Work Phone: Influenza virus A and B and SARS-CoV-2 (COVID-19) Ag panel - Upper respiratory specim SARS-CoV-2 (COVID-19) RNA YAW+probe Ql (Resp) [facility] Work Phone: Laboratory - Microbiology an d Antimicrobial susceptibility Respiratory pathogens DNA and RNA 12b panel YAW+probe (Unsp spec) [facility] Work Phone: No Panel Information SARS-CoV-2 & FLU Antigen (Rapid) [facility] Work Phone: Streptococcus pneumoniae Antigen (M [facility] Work Phone: PUNCTAL CLOSURE, THERMAL [facility] Urine Legionella pneumophila antigen detection L. pneumophila Ag Ql (U) [facility] Work Phone: Vital Signs Date Time Vital Sign Value Performing Clinician Facility 05-04-2025 08:58-0400 Body height 146.1 cm Sg Julien MD Work Phone: [facility] Comment on above: no shoes 05-04-2025 08:58-0400 Body temperature 97.11 [degF] Sg Julien MD Work Phone: [facility] 05-04-2025 08:58-0400 Diastolic blood pressure 82 mm[Hg] Sg Julien MD Work Phone: [facility] 05-04-2025 08:58-0400 Heart rate 65 /min Sg Julien MD Work Phone: [facility] 05-04-2025 08:58-0400 Respiratory rate 18 /min Sg Julien MD Work Phone: [facility] 05-04-2025 08:58-0400 SaO2% (BldA) [Mass fraction] 97 % Sg Julien MD Work Phone: [facility] 05-04-2025 08:58-0400 Systolic blood pressure 133 mm[Hg] Sg Julien MD Work Phone: [facility] 04-11-2025 09:20-0400 Diastolic blood pressure 69 mm[Hg] Jenn Finelli DO Work Phone: [facility] 04-11-2025 09:20-0400 Respiratory rate 16 /min Jenn Finelli DO Work Phone: [facility] 04-11-2025 09:20-0400 Systolic blood pressure 102 mm[Hg] Jenn Finelli DO Work Phone: [facility] 04-11-2025 09:10-0400 Heart rate 61 /min Jennfrancesco Elizabethlli DO Work Phone: [facility] 04-11-2025 09:10-0400 SaO2% (BldA) [Mass fraction] 95 % Jenn Glennlli DO Work Phone: [facility] 04-11-2025 07:59-0400 Body mass index (BMI) [Ratio] 33.88 kg/m2 Jenn Finelli DO Work Phone: [facility] 04-11-2025 07:59-0400 Body temperature 97.11 [degF] Jennfrancesco Elizabethlli DO Work Phone: [facility] 04-11-2025 07:59-0400 Body weight 74.8 kg Jennfrancesco Elizabethlli DO Work Phone: [facility] 03-29-2025 08:21-0400 Body height 148.6 cm Jonathan Posey MD Work Phone: [facility] 03-29-2025 08:21-0400 Body mass index (BMI) [Ratio] 33.9 kg/m2 Jonathan Posey MD Work Phone: [facility] 03-29-2025 08:21-0400 Body weight 74.84 kg Jonathan Posey MD Work Phone: [facility] 03-29-2025 08:21-0400 Diastolic blood pressure 84 mm[Hg] Jonathan Posey MD Work Phone: [facility] 03-29-2025 08:21-0400 Heart rate 74 /min Jonathan Posey MD Work Phone: [facility] 03-29-2025 08:21-0400 SaO2% (BldA) [Mass fraction] 93 % Jonathan Posey MD Work Phone: [facility] 03-29-2025 08:21-0400 Systolic blood pressure 144 mm[Hg] Jonathan Posey MD Work Phone: [facility] 03-28-2025 15:04-0400 Body mass index (BMI) [Ratio] 34.49 kg/m2 Lidia Lopez MD Work Phone: [facility] 03-28-2025 15:04-0400 Body weight 74.84 kg Lidia Lopez MD Work Phone: [facility] Comment on above: pt reported 03-28-2025 15:04-0400 Diastolic blood pressure 81 mm[Hg] Lidia Lopez MD Work Phone: [facility] 03-28-2025 15:04-0400 Heart rate 72 /min Lidia Lopez MD Work Phone: [facility] 03-28-2025 15:04-0400 SaO2% (BldA) [Mass fraction] 97 % Lidia Lopez MD Work Phone: [facility] 03-28-2025 15:04-0400 Systolic blood pressure 147 mm[Hg] Lidia Lopez MD Work Phone: [facility] 03-07-2025 10:35-0400 Body mass index (BMI) [Ratio] 34.9 kg/m2 Clare Masci DO Work Phone: [facility] 03-07-2025 10:35-0400 Body temperature 98.01 [degF] Clare Masci DO Work Phone: [facility] 03-07-2025 10:35-0400 Body weight 75.75 kg Clare Masci DO Work Phone: [facility] 03-07-2025 10:35-0400 Diastolic blood pressure 84 mm[Hg] Clare Masci DO Work Phone: [facility] 03-07-2025 10:35-0400 Heart rate 74 /min Clare Masci DO Work Phone: [facility] 03-07-2025 10:35-0400 SaO2% (BldA) [Mass fraction] 94 % Clare Masci DO Work Phone: [facility] 06-18-2025 10:35-0400 Systolic blood pressure 128 mm[Hg] Clare Baez DO Work Phone: [facility] 03-07-2025 10:040 Body mass index (BMI) [Ratio] 34.9 kg/m2 Lab/Port Wstr Work Phone: [facility] 03-07-2025 10:19040 Body weight 75.75 kg Lab/Port Wstr Work Phone: [facility] 01-22-2025 10:21-0400 Diastolic blood pressure 76 mm[Hg] Chrissy Moser MD Work Phone: [facility] 01-22-2025 10:0400 Heart rate 85 /min Chrissy Moser MD Work Phone: [facility] 01-22-2025 10:21-0400 Respiratory rate 18 /min Chrissy Moser MD Work Phone: [facility] 01-22-2025 10:21-0400 SaO2% (BldA) [Mass fraction] 96 % Chrissy Moser MD Work Phone: [facility] 01-22-2025 10:21-0400 Systolic blood pressure 108 mm[Hg] Chrissy Moser MD Work Phone: [facility] 10-18-2024 12:26-0500 Body temperature 98.71 [degF] Xiao Coffey APRN.LEAD HOUSEKEEPER Work Phone: [facility] 10-18-2024 12:26-0500 Diastolic blood pressure 72 mm[Hg] Xiao Coffey ANESTHESIA ATTENDING.LEAD HOUSEKEEPER Work Phone: [facility] 10-18-2024 12:26-0500 Heart rate 80 /min Xiao Coffey ANESTHESIA ATTENDING.LEAD HOUSEKEEPER Work Phone: [facility] 10-18-2024 12:26-0500 Respiratory rate 18 /min Xiao Coffey ANESTHESIA ATTENDING.LEAD HOUSEKEEPER Work Phone: [facility] 10-18-2024 12:26-0500 SaO2% (BldA) [Mass fraction] 95 % Xiao Alexx ANESTHESIA ATTENDING.LEAD HOUSEKEEPER Work Phone: [facility] 10-18-2024 12:26-0500 Systolic blood pressure 120 mm[Hg] Xiao Coffey ANESTHESIA ATTENDING.LEAD HOUSEKEEPER Work Phone: [facility] 09-21-2024 08:53-0500 Body mass index (BMI) [Ratio] 26.38 kg/m2 Selina Driscoll ANESTHESIA ATTENDING.BIG DATA HADOOP DEVELOPER Work Phone: [facility] 09-21-2024 08:53-0500 Body weight 57.25 kg Selina Driscoll ANESTHESIA ATTENDING.BIG DATA HADOOP DEVELOPER Work Phone: [facility] 09-21-2024 08:53-0500 Diastolic blood pressure 78 mm[Hg] Selina Driscoll ANESTHESIA ATTENDING.BIG DATA HADOOP DEVELOPER Work Phone: [facility] 09-21-2024 08:53-0500 Heart rate 85 /min Selina Driscoll ANESTHESIA ATTENDING.BIG DATA HADOOP DEVELOPER Work Phone: [facility] 09-21-2024 08:53-0500 Respiratory rate 16 /min Selina Driscoll ANESTHESIA ATTENDING.BIG DATA HADOOP DEVELOPER Work Phone: [facility] 09-21-2024 08:53-0500 SaO2% (BldA) [Mass fraction] 94 % Selina Driscoll ANESTHESIA ATTENDING.BIG DATA HADOOP DEVELOPER Work Phone: [facility] 09-21-2024 08:53-0500 Systolic blood pressure 122 mm[Hg] Selina Driscoll ANESTHESIA ATTENDING.BIG DATA HADOOP DEVELOPER Work Phone: [facility] 09-05-2024 10:43-0500 Body mass index (BMI) [Ratio] 34.9 kg/m2 Clare Masci DO Work Phone: [facility] 09-05-2024 10:43-0500 Body temperature 97.5 [degF] Clare Masci DO Work Phone: [facility] 09-05-2024 10:43-0500 Body weight 75.75 kg Clare Masci DO Work Phone: [facility] 09-05-2024 10:43-0500 Diastolic blood pressure 84 mm[Hg] Clare Masci DO Work Phone: [facility] 09-05-2024 10:43-0500 Heart rate 76 /min Clare Dengi DO Work Phone: [facility] 09-05-2024 10:43-0500 SaO2% (BldA) [Mass fraction] 96 % Clare Baez DO Work Phone: [facility] 09-05-2024 10:43-0500 Systolic blood pressure 125 mm[Hg] Clare Baez DO Work Phone: [facility] 09-05-2024 10:20-0500 Body mass index (BMI) [Ratio] 34.9 kg/m2 Lab/Port Wstr Work Phone: [facility] 09-05-2024 10:20-0500 Body weight 75.75 kg Lab/Port Wstr Work Phone: [facility] 07-31-2024 16:02-0500 Body height 147.3 cm Sy Matthews MD Work Phone: [facility] 07-31-2024 16:02-0500 Body mass index (BMI) [Ratio] 33.44 kg/m2 Sy Matthews MD Work Phone: [facility] 07-31-2024 16:02-0500 Body weight 72.58 kg Sy Matthews MD Work Phone: [facility] 07-31-2024 16:02-0500 Diastolic blood pressure 62 mm[Hg] Sy Matthews MD Work Phone: [facility] 07-31-2024 16:02-0500 Heart rate 74 /min Sy Matthews MD Work Phone: [facility] 07-31-2024 16:02-0500 SaO2% (BldA) [Mass fraction] 97 % Sy Matthews MD Work Phone: [facility] 07-31-2024 16:02-0500 Systolic blood pressure 106 mm[Hg] Sy Matthews MD Work Phone: [facility] 07-26-2024 13:46-0500 Body height 147.3 cm Nithya Casiano MD Work Phone: [facility] 07-26-2024 13:46-0500 Body mass index (BMI) [Ratio] 33.44 kg/m2 Nithya Casiano MD Work Phone: [facility] 07-26-2024 13:46-0500 Body weight 72.58 kg Nithya Casiano MD Work Phone: [facility] Comment on above: per patient 07-26-2024 13:46-0500 Diastolic blood pressure 76 mm[Hg] Nithya Casiano MD Work Phone: [facility] 07-26-2024 13:46-0500 Systolic blood pressure 124 mm[Hg] Nithya Casiano MD Work Phone: [facility] 07-21-2024 14:47-0400 Body height 147.3 cm Martinez Click ANESTHESIA ATTENDING.LEAD HOUSEKEEPER Work Phone: [facility] 07-21-2024 14:47-0400 Body mass index (BMI) [Ratio] 33.44 kg/m2 Martinez Click ANESTHESIA ATTENDING.LEAD HOUSEKEEPER Work Phone: [facility] 07-21-2024 14:47-0400 Body weight 72.58 kg Martinez Click ANESTHESIA ATTENDING.LEAD HOUSEKEEPER Work Phone: [facility] 07-21-2024 14:47-0400 Diastolic blood pressure 82 mm[Hg] Martinez Click ANESTHESIA ATTENDING.LEAD HOUSEKEEPER Work Phone: [facility] 07-21-2024 14:47-0400 Heart rate 80 /min Martinez Click ANESTHESIA ATTENDING.LEAD HOUSEKEEPER Work Phone: [facility] 07-21-2024 14:47-0400 Respiratory rate 14 /min Martinez Click ANESTHESIA ATTENDING.LEAD HOUSEKEEPER Work Phone: [facility] 07-21-2024 14:47-0400 SaO2% (BldA) [Mass fraction] 96 % Martinez Click ANESTHESIA ATTENDING.LEAD HOUSEKEEPER Work Phone: [facility] 07-21-2024 14:47-0400 Systolic blood pressure 118 mm[Hg] Martinez Nile PASTRANALEAD HOUSEKEEPER Work Phone: [facility] 07-21-2024 14:39-0400 Body height 147.3 cm Pulm Wstr Work Phone: [facility] 07-21-2024 14:39-0400 Body mass index (BMI) [Ratio] 33.44 kg/m2 Pulm Wstr Work Phone: [facility] 07-21-2024 14:39-0400 Body weight 72.58 kg Pulm Wstr Work Phone: [facility] Comment on above: patient reported weight 07-21-2024 14:39-0400 Heart rate 81 /min Pulm Wstr Work Phone: [facility] 07-21-2024 14:39-0400 Respiratory rate 14 /min Pulm Wstr Work Phone: [facility] 07-21-2024 14:39-0400 SaO2% (BldA) [Mass fraction] 96 % Pulm Wstr Work Phone: [facility] 06-01-2024 10:32-0400 Body temperature 97.3 [degF] Sg Julien MD Work Phone: [facility] 06-01-2024 10:32-0400 Diastolic blood pressure 72 mm[Hg] Sg Julien MD Work Phone: [facility] 06-01-2024 10:32-0400 Heart rate 62 /min Sg Julien MD Work Phone: [facility] 06-01-2024 10:32-0400 Respiratory rate 20 /min Sg Julien MD Work Phone: [facility] 06-01-2024 10:32-0400 SaO2% (BldA) [Mass fraction] 95 % Sg Julien MD Work Phone: [facility] 06-01-2024 10:32-0400 Systolic blood pressure 102 mm[Hg] Sg Julien MD Work Phone: [facility] 03-29-2024 10:48-0400 Body mass index (BMI) [Ratio] 33.02 kg/m2 Param Venkata ANESTHESIA ATTENDING.LEAD HOUSEKEEPER Work Phone: [facility] 03-29-2024 10:48-0400 Body weight 71.67 kg Param Venkata ANESTHESIA ATTENDING.LEAD HOUSEKEEPER Work Phone: [facility] 03-29-2024 10:48-0400 Diastolic blood pressure 74 mm[Hg] Param Venkata ANESTHESIA ATTENDING.LEAD HOUSEKEEPER Work Phone: [facility] 03-29-2024 10:48-0400 Heart rate 74 /min Param Venkata ANESTHESIA ATTENDING.LEAD HOUSEKEEPER Work Phone: [facility] 03-29-2024 10:48-0400 SaO2% (BldA) [Mass fraction] 96 % Param Venkata ANESTHESIA ATTENDING.LEAD HOUSEKEEPER Work Phone: [facility] 03-29-2024 10:48-0400 Systolic blood pressure 110 mm[Hg] Param Venkata ANESTHESIA ATTENDING.LEAD HOUSEKEEPER Work Phone: [facility] 03-06-2024 13:50-0400 Body mass index (BMI) [Ratio] 33.02 kg/m2 Clare Sowmyai DO Work Phone: [facility] 03-06-2024 13:50-0400 Body temperature 97.3 [degF] Clare Masci DO Work Phone: [facility] 03-06-2024 13:50-0400 Body weight 71.67 kg Clare Masci DO Work Phone: [facility] 03-06-2024 13:50-0400 Diastolic blood pressure 81 mm[Hg] Clare Masci DO Work Phone: [facility] 03-06-2024 13:50-0400 Heart rate 77 /min Clare Masci DO Work Phone: [facility] 03-06-2024 13:50-0400 SaO2% (BldA) [Mass fraction] 97 % Clare Masci DO Work Phone: [facility] 03-06-2024 13:50-0400 Systolic blood pressure 126 mm[Hg] Clare Baez DO Work Phone: [facility] 02-10-2024 09:48-0400 Body mass index (BMI) [Ratio] 32.6 kg/m2 Selina Regans ANESTHESIA ATTENDING.BIG DATA HADOOP DEVELOPER Work Phone: [facility] 02-10-2024 09:48-0400 Body weight 70.76 kg Selina Regans ANESTHESIA ATTENDING.BIG DATA HADOOP DEVELOPER Work Phone: [facility] 02-10-2024 09:48-0400 Diastolic blood pressure 86 mm[Hg] Selina Regans ANESTHESIA ATTENDING.BIG DATA HADOOP DEVELOPER Work Phone: [facility] 02-10-2024 09:48-0400 Heart rate 79 /min Selina Driscoll ANESTHESIA ATTENDING.BIG DATA HADOOP DEVELOPER Work Phone: [facility] 02-10-2024 09:48-0400 SaO2% (BldA) [Mass fraction] 98 % Selina Driscoll ANESTHESIA ATTENDING.BIG DATA HADOOP DEVELOPER Work Phone: [facility] 02-10-2024 09:48-0400 Systolic blood pressure 112 mm[Hg] Selina Driscoll ANESTHESIA ATTENDING.BIG DATA HADOOP DEVELOPER Work Phone: [facility] 12-20-2023 11:30-0400 Body weight 71.67 kg Sy Matthews MD Work Phone: [facility] 12-20-2023 11:30-0400 Diastolic blood pressure 63 mm[Hg] Sy Matthews MD Work Phone: [facility] 12-20-2023 11:30-0400 Heart rate 65 /min Sy Matthews MD Work Phone: [facility] 12-20-2023 11:30-0400 SaO2% (BldA) [Mass fraction] 96 % Sy Matthews MD Work Phone: [facility] 12-20-2023 11:30-0400 Systolic blood pressure 108 mm[Hg] Sy Matthews MD Work Phone: [facility] 12-20-2023 10:16-0400 Diastolic blood pressure 74 mm[Hg] Chrissy Moser MD Work Phone: [facility] 12-20-2023 10:16-0400 Heart rate 82 /min Chrissy Moser MD Work Phone: [facility] 12-20-2023 10:16-0400 Respiratory rate 12 /min Chrissy Moser MD Work Phone: [facility] 12-20-2023 10:16-0400 SaO2% (BldA) [Mass fraction] 96 % Chrissy Moser MD Work Phone: [facility] 12-20-2023 10:16-0400 Systolic blood pressure 116 mm[Hg] Chrissy Moser MD Work Phone: [facility] 09-29-2023 09:12-0500 Body temperature 97.5 [degF] Lidia Lopez MD Work Phone: [facility] 09-29-2023 09:12-0500 Body weight 72.58 kg Lidia Lopez MD Work Phone: [facility] 09-29-2023 09:12-0500 Diastolic blood pressure 62 mm[Hg] Lidia Lopez MD Work Phone: [facility] 09-29-2023 09:12-0500 Heart rate 72 /min Lidia Lopez MD Work Phone: [facility] 09-29-2023 09:12-0500 Respiratory rate 18 /min Lidia Lopez MD Work Phone: [facility] 09-29-2023 09:12-0500 SaO2% (BldA) [Mass fraction] 96 % Lidia Lopez MD Work Phone: [facility] 09-29-2023 09:12-0500 Systolic blood pressure 112 mm[Hg] Lidia Lopez MD Work Phone: [facility] 06-07-2023 11:54-0400 Body weight 70.76 kg Rosalia Lorraine PA-C Work Phone: [facility] 06-07-2023 11:54-0400 Diastolic blood pressure 60 mm[Hg] Rosalia Lorraine PA-C Work Phone: [facility] 06-07-2023 11:54-0400 Heart rate 73 /min Rosalia Lorraine PA-C Work Phone: [facility] 06-07-2023 11:54-0400 Respiratory rate 15 /min Rosalia Lorraine PA-C Work Phone: [facility] 06-07-2023 11:54-0400 SaO2% (BldA) [Mass fraction] 96 % Rosalia Sosaone PA-C Work Phone: [facility] 06-07-2023 11:54-0400 Systolic blood pressure 104 mm[Hg] Rosalia Sosaone PA-C Work Phone: [facility] 06-01-2023 10:41-0400 Body temperature 97.11 [degF] Sanjeev Ledesma MD Work Phone: [facility] 06-01-2023 10:41-0400 Diastolic blood pressure 82 mm[Hg] Sanjeev Ledesma MD Work Phone: [facility] 06-01-2023 10:41-0400 Heart rate 65 /min Sanjeev Ledesma MD Work Phone: [facility] 06-01-2023 10:41-0400 Respiratory rate 18 /min Sanjeev Ledesma MD Work Phone: [facility] 06-01-2023 10:41-0400 SaO2% (BldA) [Mass fraction] 95 % Sanjeev Ledesma MD Work Phone: [facility] 06-01-2023 10:41-0400 Systolic blood pressure 116 mm[Hg] Sanjeev Ledesma MD Work Phone: [facility] 03-25-2023 04:55-0400 Body temperature 98 [degF] [facility] 03-25-2023 04:55-0400 Diastolic blood pressure 65 mm[Hg] [facility] 03-25-2023 04:55-0400 Heart rate 81 /min [facility] 03-25-2023 04:55-0400 Respiratory rate 18 /min [facility] 03-25-2023 04:55-0400 SaO2% (BldA) [Mass fraction] 98 % [facility] 03-25-2023 04:55-0400 Systolic blood pressure 138 mm[Hg] [facility] 03-24-2023 23:36-0400 Body height 147.32 cm [facility] 03-24-2023 23:36-0400 Body mass index (BMI) [Ratio] 33.8 kg/m2 [facility] 03-24-2023 23:36-0400 Body weight 73.4 kg [facility] 03-15-2023 13:32-0400 Body weight 69.85 kg Sy Matthews MD Work Phone: [facility] 03-15-2023 13:32-0400 Diastolic blood pressure 70 mm[Hg] Sy Matthews MD Work Phone: [facility] 03-15-2023 13:32-0400 Heart rate 80 /min Sy Matthews MD Work Phone: [facility] 03-15-2023 13:32-0400 Respiratory rate 16 /min Sy Matthews MD Work Phone: [facility] 03-15-2023 13:32-0400 SaO2% (BldA) [Mass fraction] 95 % Sy Matthews MD Work Phone: [facility] 03-15-2023 13:32-0400 Systolic blood pressure 110 mm[Hg] Sy Matthews MD Work Phone: [facility] 03-03-2023 11:00-0400 Body weight 69.85 kg Lab[facility]Port Wstr Work Phone: [facility] 12-03-2022 14:00-0400 Body weight 69.85 kg Chrissy Moser MD Work Phone: [facility] 12-03-2022 14:00-0400 Diastolic blood pressure 78 mm[Hg] Chrissy Moser MD Work Phone: [facility] 12-03-2022 14:00-0400 Heart rate 74 /min Chrissy Moser MD Work Phone: [facility] 12-03-2022 14:00-0400 Respiratory rate 17 /min Chrissy Moser MD Work Phone: [facility] 12-03-2022 14:00-0400 SaO2% (BldA) [Mass fraction] 97 % Chrissy Moser MD Work Phone: [facility] 12-03-2022 14:00-0400 Systolic blood pressure 110 mm[Hg] Chrissy Moser MD Work Phone: [facility] 09-09-2022 11:09-0500 Body temperature 99.1 [degF] Clare Masci DO Work Phone: [facility] 09-09-2022 11:09-0500 Body weight 74.84 kg Clare Masci DO Work Phone: [facility] 09-09-2022 11:09-0500 Diastolic blood pressure 68 mm[Hg] Clare Masci DO Work Phone: [facility] 09-09-2022 11:09-0500 Heart rate 90 /min Clare Masci DO Work Phone: [facility] 09-09-2022 11:09-0500 SaO2% (BldA) [Mass fraction] 97 % Clare Masci DO Work Phone: [facility] 09-09-2022 11:09-0500 Systolic blood pressure 109 mm[Hg] Clare Masci DO Work Phone: [facility] 09-09-2022 10:58-0500 Body weight 74.84 kg Lab/Port Wstr Work Phone: [facility] 08-24-2022 14:24-0500 Body temperature 97.8 [degF] Dr. Lidia Lopez Work Phone: [facility] Work Phone: 08-24-2022 14:24-0500 Diastolic blood pressure 58 mm[Hg] Dr. Lidia Lopez Work Phone: [facility] Work Phone: 08-24-2022 14:24-0500 Heart rate 70 /min Dr. Lidia Lopez Work Phone: [facility] Work Phone: 08-24-2022 14:24-0500 Respiratory rate 16 /min Dr. Lidia Lopez Work Phone: [facility] Work Phone: 08-24-2022 14:24-0500 SaO2% (BldA) [Mass fraction] 99 % Dr. Lidia Lopez Work Phone: [facility] Work Phone: 08-24-2022 14:24-0500 Systolic blood pressure 106 mm[Hg] Dr. Lidia Lopez Work Phone: [facility] Work Phone: 08-24-2022 05:29-0500 Body weight 70.[address] Lidia Lopez Work Phone: [facility] Work Phone: 08-23-2022 18:54-0500 Body height 147.[address] Lidia Lopez Work Phone: [facility] Work Phone: 08-23-2022 18:54-0500 Body mass index (BMI) [Ratio] 31.8 kg/m2 Dr. Lidia Lopez Work Phone: [facility] Work Phone: 08-23-2022 17:56-0500 Body temperature 98.4 [degF] Dr. Lidia Lopez Work Phone: [facility] Work Phone: 08-23-2022 17:56-0500 Diastolic blood pressure 64 mm[Hg] Dr. Lidia Lopez Work Phone: [facility] Work Phone: 08-23-2022 17:56-0500 Heart rate 73 /min Dr. Lidia Lopez Work Phone: [facility] Work Phone: 08-23-2022 17:56-0500 Respiratory rate 16 /min Dr. Lidia Lopez Work Phone: [facility] Work Phone: 08-23-2022 17:56-0500 SaO2% (BldA) [Mass fraction] 92 % Dr. Lidia Lopez Work Phone: [facility] Work Phone: 08-23-2022 17:56-0500 Systolic blood pressure 94 mm[Hg] Dr. Lidia Lopez Work Phone: [facility] Work Phone: 08-23-2022 13:50-0500 Body height 147.[address] Lidia Lopez Work Phone: [facility] Work Phone: 08-23-2022 13:50-0500 Body mass index (BMI) [Ratio] 35.5 kg/m2 Dr. Lidia Lopez Work Phone: [facility] Work Phone: 08-23-2022 13:50-0500 Body weight 77.[address] Lidia Lopez Work Phone: [facility] Work Phone: 08-18-2022 07:19-0500 Body temperature 97.9 [degF] [employer] Work Phone: [facility] 08-18-2022 07:19-0500 Diastolic blood pressure 79 mm[Hg] [employer] Work Phone: [facility] 08-18-2022 07:19-0500 Heart rate 72 /min [employer] [facility] Work Phone: [facility] 08-18-2022 07:19-0500 SaO2% (BldA) [Mass fraction] 94 % [employer] [facility] Work Phone: [facility] 08-18-2022 07:19-0500 Systolic blood pressure 124 mm[Hg] [employer] [facility] Work Phone: [facility] 08-17-2022 21:20-0500 Respiratory rate 14 /min [employer] Work Phone: [facility] 08-16-2022 01:00-0500 Body height 147.3 cm [employer] Work Phone: [facility] 08-16-2022 01:00-0500 Body mass index (BMI) [Ratio] 32.4 kg/m2 [facility] Work Phone: [facility] 08-16-2022 01:00-0500 Body weight 70.31 kg [employer] [facility] Work Phone: [facility] 08-12-2022 03:11-0500 Diastolic blood pressure 76 mm[Hg] Dr. Lidia Lopez Work Phone: [facility] Work Phone: 08-12-2022 03:11-0500 Heart rate 76 /min Dr. Lidia Lopez Work Phone: [facility] Work Phone: 08-12-2022 03:11-0500 Respiratory rate 18 /min Dr. Lidia Lopez Work Phone: [facility] Work Phone: 08-12-2022 03:11-0500 SaO2% (BldA) [Mass fraction] 95 % Dr. Lidia Lopez Work Phone: [facility] Work Phone: 08-12-2022 03:11-0500 Systolic blood pressure 95 mm[Hg] Dr. Lidia Lopez Work Phone: [facility] Work Phone: 08-12-2022 02:01-0500 Body temperature 98.9 [degF] Dr. Lidia Lopez Work Phone: [facility] Work Phone: 08-12-2022 00:49-0500 Body height 147.[address] Lidia Lopez Work Phone: [facility] Work Phone: 08-12-2022 00:49-0500 Body mass index (BMI) [Ratio] 34 kg/m2 Dr. Lidia Lopez Work Phone: [facility] Work Phone: 08-12-2022 00:49-0500 Body weight [address] Lidia Lopez Work Phone: [facility] Work Phone: 06-19-2022 10:17-0400 Body height 147.3 cm Chrissy Moser MD Work Phone: [facility] 06-19-2022 10:17-0400 Body weight 69.85 kg Chrissy Moser MD Work Phone: [facility] 06-19-2022 10:17-0400 Diastolic blood pressure 72 mm[Hg] Chrissy Moser MD Work Phone: [facility] 06-19-2022 10:17-0400 Heart rate 89 /min Chrissy Moser MD Work Phone: [facility] 06-19-2022 10:17-0400 Respiratory rate 12 /min Chrissy Moesr MD Work Phone: [facility] 06-19-2022 10:17-0400 SaO2% (BldA) [Mass fraction] 92 % Chrissy Moser MD Work Phone: [facility] 06-19-2022 10:17-0400 Systolic blood pressure 112 mm[Hg] Chrissy Moser MD Work Phone: [facility] 06-19-2022 10:03-0400 Body height 147.3 cm Res[facility] Wstr Work Phone: [facility] 06-19-2022 10:03-0400 Body weight 69.85 kg Res[facility] Wstr Work Phone: [facility] 06-19-2022 10:03-0400 Heart rate 89 /min Res[facility]str Work Phone: [facility] 06-19-2022 10:03-0400 Respiratory rate 12 /min Res[facility]str Work Phone: [facility] 06-19-2022 10:03-0400 SaO2% (BldA) [Mass fraction] 92 % [facility] Work Phone: [facility] 06-18-2022 23:35-0400 Diastolic blood pressure 72 mm[Hg] Dr. Lidia Lopez Work Phone: [facility] Work Phone: 06-18-2022 23:35-0400 Heart rate 113 /min Dr. Lidia Lopez Work Phone: [facility] Work Phone: 06-18-2022 23:35-0400 Respiratory rate 16 /min Dr. Lidia Lopez Work Phone: [facility] Work Phone: 06-18-2022 23:35-0400 SaO2% (BldA) [Mass fraction] 98 % Dr. Lidia Lopez Work Phone: [facility] Work Phone: 06-18-2022 23:35-0400 Systolic blood pressure 146 mm[Hg] Dr. Lidia Lopez Work Phone: [facility] Work Phone: 06-18-2022 21:42-0400 Body mass index (BMI) [Ratio] 32.1 kg/m2 Dr. Lidia Lopez Work Phone: [facility] Work Phone: 06-18-2022 21:42-0400 Body temperature 98.5 [degF] Dr. Lidia Lopez Work Phone: [facility] Work Phone: 06-18-2022 21:42-0400 Body weight 69.[address] Lidia Lopez Work Phone: [facility] Work Phone: 06-11-2022 10:48-0400 Body temperature 98.01 [degF] Sg Julien MD Work Phone: [facility] 06-11-2022 10:48-0400 Body weight 70.76 kg Sg Julien MD Work Phone: [facility] 06-11-2022 10:48-0400 Diastolic blood pressure 63 mm[Hg] Sg Julien MD Work Phone: [facility] 06-11-2022 10:48-0400 Heart rate 65 /min Sg Julien MD Work Phone: [facility] 06-11-2022 10:48-0400 Respiratory rate 16 /min Sg Julien MD Work Phone: [facility] 06-11-2022 10:48-0400 SaO2% (BldA) [Mass fraction] 95 % Sg Julien MD Work Phone: [facility] 06-11-2022 10:48-0400 Systolic blood pressure 117 mm[Hg] Sg Julien MD Work Phone: [facility] 06-04-2022 09:43-0400 Body temperature 98.6 [degF] Clare Baez DO Work Phone: [facility] 06-04-2022 09:43-0400 Diastolic blood pressure 61 mm[Hg] Clare Baez DO Work Phone: [facility] 06-04-2022 09:43-0400 Heart rate 77 /min Clare Masci DO Work Phone: [facility] 06-04-2022 09:43-0400 SaO2% (BldA) [Mass fraction] 97 % Clare Baez DO Work Phone: [facility] 06-04-2022 09:43-0400 Systolic blood pressure 125 mm[Hg] Clare Baez DO Work Phone: [facility] 06-04-2022 09:31-0400 Body weight 73.03 kg Lab/Port Wstr Work Phone: [facility] 05-25-2022 13:57-0400 Body height 148.[address] Lidia Lopez Work Phone: [facility] Work Phone: 05-25-2022 13:57-0400 Body mass index (BMI) [Ratio] 33.9 kg/m2 Dr. Lidia Lopez Work Phone: [facility] Work Phone: 05-25-2022 13:57-0400 Body temperature 98.4 [degF] Dr. Lidia Lopez Work Phone: [facility] Work Phone: 05-25-2022 13:57-0400 Body weight 74.[address] Lidia Lopez Work Phone: [facility] Work Phone: 05-25-2022 13:57-0400 Diastolic blood pressure 76 mm[Hg] Dr. Lidia Lopez Work Phone: [facility] Work Phone: 05-25-2022 13:57-0400 Heart rate 75 /min Dr. Lidia Lopez Work Phone: [facility] Work Phone: 05-25-2022 13:57-0400 Respiratory rate 16 /min Dr. Lidia Lopez Work Phone: [facility] Work Phone: 05-25-2022 13:57-0400 SaO2% (BldA) [Mass fraction] 96 % Dr. Lidia Lopez Work Phone: [facility] Work Phone: 05-25-2022 13:57-0400 Systolic blood pressure 126 mm[Hg] Dr. Lidia Lopez Work Phone: [facility] Work Phone: 05-20-2022 11:49-0400 Body temperature 98.42 [degF] GENESIS EMMIEER ANESTHESIA ATTENDING-LEAD HOUSEKEEPER [facility] 05-20-2022 11:49-0400 Diastolic blood pressure 79 mm[Hg] GENESIS KAPPER ANESTHESIA ATTENDING-LEAD HOUSEKEEPER [facility] 05-20-2022 11:49-0400 Heart rate 79 /min GENESIS KAPPER ANESTHESIA ATTENDING-LEAD HOUSEKEEPER [facility] 05-20-2022 11:49-0400 Reason For Taking VItal Signs GENESIS EMMIEER ANESTHESIA ATTENDING-LEAD HOUSEKEEPER [facility] 05-20-2022 11:49-0400 Respiratory rate 18 /min GENESIS KAPPER ANESTHESIA ATTENDING-LEAD HOUSEKEEPER [facility] 05-20-2022 11:49-0400 Systolic blood pressure 121 mm[Hg] GENESIS KAPPER ANESTHESIA ATTENDING-LEAD HOUSEKEEPER [facility] 05-20-2022 08:21-0400 Body temperature 98.42 [degF] GENESIS KAPPER ANESTHESIA ATTENDING-LEAD HOUSEKEEPER [facility] 05-20-2022 08:21-0400 Diastolic blood pressure 81 mm[Hg] GENESIS EMMIEER ANESTHESIA ATTENDING-LEAD HOUSEKEEPER [facility] 05-20-2022 08:21-0400 Heart rate 76 /min GENESIS KAPPER ANESTHESIA ATTENDING-LEAD HOUSEKEEPER [facility] 05-20-2022 08:21-0400 Reason For Taking VItal Signs GENESIS KAPPER ANESTHESIA ATTENDING-LEAD HOUSEKEEPER [facility] 05-20-2022 08:21-0400 Respiratory rate 18 /min GENESIS KAPPER ANESTHESIA ATTENDING-LEAD HOUSEKEEPER [facility] 05-20-2022 08:21-0400 Systolic blood pressure 125 mm[Hg] GENESIS KAPPER ANESTHESIA ATTENDING-LEAD HOUSEKEEPER [facility] 05-20-2022 08:05-0400 Heart rate 90 /min GENESIS KAPPER ANESTHESIA ATTENDING-LEAD HOUSEKEEPER [facility] 05-20-2022 04:45-0400 Body temperature 98.06 [degF] GENESIS EMMIEER ANESTHESIA ATTENDING-LEAD HOUSEKEEPER [facility] 05-20-2022 04:45-0400 Diastolic blood pressure 66 mm[Hg] GENESIS KAPPER ANESTHESIA ATTENDING-LEAD HOUSEKEEPER [facility] 05-20-2022 04:45-0400 Heart rate 77 /min GENESIS KAPPER ANESTHESIA ATTENDING-LEAD HOUSEKEEPER [facility] 05-20-2022 04:45-0400 Mean blood pressure 77 mm[Hg] GENESIS KAPPER ANESTHESIA ATTENDING-LEAD HOUSEKEEPER [facility] 05-20-2022 04:45-0400 Reason For Taking VItal Signs GENESIS KAPPER ANESTHESIA ATTENDING-LEAD HOUSEKEEPER [facility] 05-20-2022 04:45-0400 Respiratory rate 18 /min GENESIS KAPPER ANESTHESIA ATTENDING-LEAD HOUSEKEEPER [facility] 05-20-2022 04:45-0400 Systolic blood pressure 99 mm[Hg] GENESIS KAPPER ANESTHESIA ATTENDING-LEAD HOUSEKEEPER [facility] 05-19-2022 23:45-0400 Heart rate 90 /min GENESIS KAPPER ANESTHESIA ATTENDING-LEAD HOUSEKEEPER [facility] 05-19-2022 19:51-0400 Heart rate 88 /min GENESIS KAPPER ANESTHESIA ATTENDING-LEAD HOUSEKEEPER [facility] 05-19-2022 19:51-0400 Mean blood pressure 78 mm[Hg] GENESIS KAPPER ANESTHESIA ATTENDING-LEAD HOUSEKEEPER [address] [place] [address] 05-19-2022 16:41-0400 Heart rate 83 /min GENESIS KAPPER ANESTHESIA ATTENDING-LEAD HOUSEKEEPER [facility] 05-19-2022 16:41-0400 Mean blood pressure 84 mm[Hg] GENESIS KAPPER ANESTHESIA ATTENDING-LEAD HOUSEKEEPER [address] [place] [address] 05-19-2022 08:57-0400 Heart rate 87 /min GENESIS KAPPER ANESTHESIA ATTENDING-LEAD HOUSEKEEPER [facility] 05-18-2022 17:57-0400 Body height 150 cm GENESIS KAPPER ANESTHESIA ATTENDING-LEAD HOUSEKEEPER [facility] 05-18-2022 17:57-0400 Body weight 73.5 kg GENESIS KAPPER ANESTHESIA ATTENDING-LEAD HOUSEKEEPER [facility] 05-18-2022 17:57-0400 Body weight 32.67 kg/m2 GENESIS KAPPER ANESTHESIA ATTENDING-LEAD HOUSEKEEPER [address] [place] [address] 05-18-2022 15:38-0400 Body weight 73.5 kg GENESIS KAPPER ANESTHESIA ATTENDING-LEAD HOUSEKEEPER [address] [place] [address] 05-18-2022 14:51-0400 Body height 150 cm GENESIS KAPPER ANESTHESIA ATTENDING-LEAD HOUSEKEEPER [facility] 05-18-2022 14:51-0400 Body weight 73.5 kg GENESIS OLEAMICHELLE ANESTHESIA ATTENDING-LEAD HOUSEKEEPER [facility] 05-15-2022 15:31-0400 Diastolic blood pressure 63 mm[Hg] Dr. Lidia Lopez Work Phone: [facility] Work Phone: 05-15-2022 15:31-0400 Heart rate 79 /min Dr. Lidia Lopez Work Phone: [facility] Work Phone: 05-15-2022 15:31-0400 Respiratory rate 20 /min Dr. Lidia Lopez Work Phone: [facility] Work Phone: 05-15-2022 15:31-0400 SaO2% (BldA) [Mass fraction] 94 % Dr. Lidia Lopez Work Phone: [facility] Work Phone: 05-15-2022 15:31-0400 Systolic blood pressure 114 mm[Hg] Dr. Lidia Lopez Work Phone: [facility] Work Phone: 05-15-2022 12:27-0400 Body temperature 97.5 [degF] Dr. Lidia Lopez Work Phone: [facility] Work Phone: 05-15-2022 12:25-0400 Body height 147.[address] Lidia Lopez Work Phone: [facility] Work Phone: 05-15-2022 12:25-0400 Body mass index (BMI) [Ratio] 33.5 kg/m2 Dr. Lidia Lopez Work Phone: [facility] Work Phone: 05-15-2022 12:25-0400 Body weight 72.[address] Lidia Lopez Work Phone: [facility] Work Phone: 05-13-2022 11:16-0400 Body mass index (BMI) [Ratio] 31.7 kg/m2 Dr. Lidia Lopez Work Phone: [facility] Work Phone: 05-13-2022 11:16-0400 Body temperature 96.7 [degF] Dr. Lidia Lopez Work Phone: [facility] Work Phone: 05-13-2022 11:16-0400 Body weight 68.[address] Lidia Lopez Work Phone: [facility] Work Phone: 05-13-2022 11:16-0400 Diastolic blood pressure 74 mm[Hg] Dr. Lidia Lopez Work Phone: [facility] Work Phone: 05-13-2022 11:16-0400 Heart rate 73 /min Dr. Lidia Lopez Work Phone: [facility] Work Phone: 05-13-2022 11:16-0400 Respiratory rate 17 /min Dr. Lidia Lopez Work Phone: [facility] Work Phone: 05-13-2022 11:16-0400 SaO2% (BldA) [Mass fraction] 99 % Dr. Lidia Lopez Work Phone: [facility] Work Phone: 05-13-2022 11:16-0400 Systolic blood pressure 113 mm[Hg] Dr. Lidia Lopez Work Phone: [facility] Work Phone: 05-06-2022 16:51-0400 Body temperature 97.81 [degF] Lidia Lopez MD Work Phone: [facility] 05-06-2022 16:51-0400 Body weight 68.49 kg Lidia Lopez MD Work Phone: [facility] 05-06-2022 16:51-0400 Diastolic blood pressure 72 mm[Hg] Lidia Lopez MD Work Phone: [facility] 05-06-2022 16:51-0400 Heart rate 72 /min Lidia Lopez MD Work Phone: [facility] 05-06-2022 16:51-0400 Respiratory rate 20 /min Lidia Lopez MD Work Phone: [facility] 05-06-2022 16:51-0400 Systolic blood pressure 116 mm[Hg] Lidia Lopez MD Work Phone: [facility] 04-24-2022 14:02-0400 Body weight 68.95 kg Aleyda Corey MD Work Phone: [facility] 04-24-2022 14:02-0400 Diastolic blood pressure 62 mm[Hg] Aleyda Corey MD Work Phone: [facility] 04-24-2022 14:02-0400 Systolic blood pressure 116 mm[Hg] Aleyda Corey MD Work Phone: [facility] 02-26-2022 16:28-0400 Respiratory rate 18 /min Dr. Lidia Lopez Work Phone: [facility] Work Phone: 02-26-2022 13:53-0400 Body height 147.32 cm Dr. Lidia Lopez Work Phone: [facility] Work Phone: 02-26-2022 13:53-0400 Body mass index (BMI) [Ratio] 31.3 kg/m2 Dr. Lidia Lopez Work Phone: [facility] Work Phone: 02-26-2022 13:53-0400 Body temperature 98.3 [degF] Dr. Lidia Lopez Work Phone: [facility] Work Phone: 02-26-2022 13:53-0400 Body weight 68.[address] Lidia Lopez Work Phone: [facility] Work Phone: 02-26-2022 13:53-0400 Diastolic blood pressure 84 mm[Hg] Dr. Lidia Lopez Work Phone: [facility] Work Phone: 02-26-2022 13:53-0400 Heart rate 122 /min Dr. Lidai Lopez Work Phone: [facility] Work Phone: 02-26-2022 13:53-0400 SaO2% (BldA) [Mass fraction] 92 % Dr. Lidia Lopez Work Phone: [facility] Work Phone: 02-26-2022 13:53-0400 Systolic blood pressure 143 mm[Hg] Dr. Lidia Lopez Work Phone: [facility] Work Phone: 02-10-2022 11:07-0400 Body [facility] 68.49 [facility] ANESTHESIA ATTEND[facility].BIG DATA HADOOP DEVELOPER Work Phone: [facility] 02-10-2022 11:07-0400 Diastolic blood pressure 72 mm[Hg] Selina Driscoll ANESTHESIA ATTENDING.BIG DATA HADOOP DEVELOPER Work Phone: [facility] 02-10-2022 11:07-0400 Heart rate 75 /min Selina Driscoll ANESTHESIA ATTENDING.BIG DATA HADOOP DEVELOPER Work Phone: [facility] 02-10-2022 11:07-0400 Respiratory rate 16 /min Selina Driscoll ANESTHESIA ATTENDING.BIG DATA HADOOP DEVELOPER Work Phone: [facility] 02-10-2022 11:07-0400 SaO2% (BldA) [Mass fraction] 96 % Selina Driscoll ANESTHESIA ATTENDING.BIG DATA HADOOP DEVELOPER Work Phone: [facility] 02-10-2022 11:07-0400 Systolic blood pressure 112 mm[Hg] Selina Regans ANESTHESIA ATTENDING.BIG DATA HADOOP DEVELOPER Work Phone: [facility] 02-02-2022 10:52-0400 Body temperature 98.01 [degF] Clare Baez DO Work Phone: [facility] 02-02-2022 10:52-0400 Body weight 68.04 kg Lab/Port Wstr Work Phone: [facility] 02-02-2022 10:52-0400 Diastolic blood pressure 57 mm[Hg] Clare Dengi DO Work Phone: [facility] 02-02-2022 10:52-0400 Heart rate 72 /min Clare Mp DO Work Phone: [facility] 02-02-2022 10:52-0400 SaO2% (BldA) [Mass fraction] 95 % Clare Dengi DO Work Phone: [facility] 02-02-2022 10:52-0400 Systolic blood pressure 112 mm[Hg] Clare Dengi DO Work Phone: [facility] 01-15-2022 09:13-0400 Body temperature 98.1 [degF] Dr. Lidia Lopez Work Phone: [facility] Work Phone: 01-15-2022 09:13-0400 Diastolic blood pressure 48 mm[Hg] Dr. Lidia Lopez Work Phone: [facility] Work Phone: 01-15-2022 09:13-0400 Heart rate 81 /min Dr. Lidia Lopez Work Phone: [facility] Work Phone: 01-15-2022 09:13-0400 Respiratory rate 18 /min Dr. Lidia Lopez Work Phone: [facility] Work Phone: 01-15-2022 09:13-0400 SaO2% (BldA) [Mass fraction] 97 % Dr. Lidia Lopez Work Phone: [facility] Work Phone: 01-15-2022 09:13-0400 Systolic blood pressure 100 mm[Hg] Dr. Lidia Lopez Work Phone: [facility] Work Phone: 01-15-2022 05:40-0400 Body weight 70.[address] Lidia Lopez Work Phone: [facility] Work Phone: 01-14-2022 12:16-0400 Body height 147.[address] Lidia Lopez Work Phone: [facility] Work Phone: 01-11-2022 23:04-0400 Body height 147.[address] Lidia Lopez Work Phone: [facility] Work Phone: 01-11-2022 23:04-0400 Body mass index (BMI) [Ratio] 31.3 kg/m2 Dr. Lidia Lopez Work Phone: [facility] Work Phone: 01-11-2022 23:04-0400 Body weight 68.[address] Lidia Lopez Work Phone: [facility] Work Phone: 01-11-2022 22:43-0400 Body temperature 98 [degF] Dr. Lidia Lopez Work Phone: [facility] Work Phone: 01-11-2022 22:43-0400 Diastolic blood pressure 76 mm[Hg] Dr. Lidia Lopez Work Phone: [facility] Work Phone: 01-11-2022 22:43-0400 Heart rate 81 /min Dr. Lidia Lopez Work Phone: [facility] Work Phone: 01-11-2022 22:43-0400 Respiratory rate 16 /min Dr. Lidia Lopez Work Phone: [facility] Work Phone: 01-11-2022 22:43-0400 SaO2% (BldA) [Mass fraction] 97 % Dr. Lidia Lopez Work Phone: [facility] Work Phone: 01-11-2022 22:43-0400 Systolic blood pressure 128 mm[Hg] Dr. Lidia Lopez Work Phone: [facility] Work Phone: 01-10-2022 09:43-0400 Body temperature 97.4 [degF] Dr. Lidia Lopez Work Phone: [facility] Work Phone: 01-10-2022 09:43-0400 Diastolic blood pressure 73 mm[Hg] Dr. Lidia Lopez Work Phone: [facility] Work Phone: 01-10-2022 09:43-0400 Heart rate 95 /min Dr. Lidia Lopez Work Phone: [facility] Work Phone: 01-10-2022 09:43-0400 Respiratory rate 16 /min Dr. Lidia Lopez Work Phone: [facility] Work Phone: 01-10-2022 09:43-0400 SaO2% (BldA) [Mass fraction] 94 % Dr. Lidia Lopez Work Phone: [facility] Work Phone: 01-10-2022 09:43-0400 Systolic blood pressure 113 mm[Hg] Dr. Lidia Lopez Work Phone: [facility] Work Phone: 01-08-2022 10:51-0400 Body height 147.[address] Lidia Lopez Work Phone: [facility] Work Phone: 01-08-2022 10:51-0400 Body weight [address] Lidia Lopez Work Phone: [facility] Work Phone: 01-08-2022 02:20-0400 Body mass index (BMI) [Ratio] 30.4 kg/m2 Dr. Lidia Lopez Work Phone: [facility] Work Phone: 01-08-2022 02:03-0400 Body temperature 98.8 [degF] [facility] Work Phone: 01-08-2022 02:03-0400 Diastolic blood pressure 46 mm[Hg] [facility] Work Phone: 01-08-2022 02:03-0400 Heart rate 108 /min [facility] Work Phone: 01-08-2022 02:03-0400 Respiratory rate 17 /min [facility] Work Phone: 01-08-2022 02:03-0400 SaO2% (BldA) [Mass fraction] 97 % [facility] Work Phone: 01-08-2022 02:03-0400 Systolic blood pressure 136 mm[Hg] [facility] Work Phone: 01-07-2022 23:08-0400 Body height 177.8 cm [facility] Work Phone: 01-07-2022 23:08-0400 Body mass index (BMI) [Ratio] 21.2 kg/m2 [facility] Work Phone: 01-07-2022 23:08-0400 Body weight 67.2 kg [facility] Work Phone: 09-17-2018 10:55-0500 BMI (Body Mass Index) 27.17 kg/m2 [facility] 09-17-2018 10:55-0500 Body Temperature 97.9 [degF] Larry [facility] 09-17-2018 10:55-0500 BP Diastolic 74 mm[Hg] Larry [facility] 09-17-2018 10:55-0500 BP Systolic 108 mm[Hg] Larry Small [facility] 09-17-2018 10:55-0500 Height 147.3 cm Larry Small [facility] 09-17-2018 10:55-0500 Pulse (Heart Rate) 117 /min Larry [facility] 09-17-2018 10:55-0500 Pulse Oximetry 99 % [facility] 09-17-2018 10:55-0500 Respiratory Rate 20 /min [facility] 09-17-2018 10:55-0500 Weight 58.97 kg Larry Omar [facility] Encounters Encounter Date Encounter Type Care Provider Facility Start: 06-06-2025 End: 06-06-2025 ambulatory Lidia Lopez MD Work Phone: [employer] [facility] [place] Start: 06-06-2025 End: 06-06-2025 Patient encounter procedure [facility] [place] Comment on above: Population Health Na vigation Outreach ([employer] Luis Fernando/) Start: 05-16-2025 End: 05-16-2025 Orders Only Sy Matthews MD Work Phone: [facility] [place] Comment on above: Encounter for screen ing for cardiovascular disorders (Primary Dx) Start: 05-07-2025 End: 05-07-2025 ambulatory [facility] Start: 05-07-2025 End: 05-07-2025 Patient encounter procedure [facility] [place] Comment on above: Population Health Na vigation Outreach ([employer] [place]/) Start: 05-04-2025 End: 05-04-2025 Patient encounter procedure Sg Julien MD Work Phone: Hematology/Oncology Start: 05-04-2025 End: 05-04-2025 ambulatory Lab Port/[facility] [address] Work Phone: Hematology/Oncology Comment on above: 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); 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); Vitamin D deficiency; Primary hypertension; S/P colectomy; Rectal bleeding; Osteoporosis, unspecified osteoporosis type, unspecified pathological fracture presence; 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); Allogeneic bone marrow transplant Start: 04-18-2025 End: 04-18-2025 Patient encounter procedure Jonathan Posey MD Work Phone: General Surgery Comment on above: Rectal bleeding ([place] Dx) Start: 04-18-2025 End: 04-18-2025 ambulatory LIDIA D TALAMPAS Facility:[facility] Start: 04-11-2025 ambulatory LIDIA D TALAMPAS Facilit y:[facility] Start: 04-11-2025 End: 04-11-2025 Subsequent hospital visit by physician Jenn Burton DO Work Phone: Ambulatory Surgery Comment on above: Rectal bleeding [K62 .5] Start: 04-06-2025 End: 04-06-2025 Admission to same day surgery center Jenn Burton DO Work Phone: Ambulatory Surgery Comment on above: bowel prep tips Start: 04-06-2025 End: 04-06-2025 E-mail encounter from caregiver Jenn Burton DO Work Phone: Ambulatory Surgery Start: 03-31-2025 End: 04-02-2025 Refill Clare Baez DO Work Phone: Hematology/Oncology Comment on above: Refill Request Start: 03-29-2025 End: 03-29-2025 Patient encounter procedure Jonathan Posey MD Work Phone: General Surgery Comment on above: Rectal bleeding ([place] Dx) Start: 03-29-2025 End: 03-29-2025 ambulatory LIDIA LOPEZ Facility:[facility] Start: 03-28-2025 End: 03-28-2025 ambulatory LIDIA LOPEZ Facility:[facility] Start: 03-28-2025 End: 03-28-2025 Office outpatient visit 25 minutes Lidia Lopez MD Work Phone: Internal Medicine [place] Comment on above: Bilateral lower extr emity edema (Primary Dx); Class 1 obesity due to excess calories with body mass index (BMI) of 34.0 to 34.9 in adult, unspecified whether serious comorbidity present; Myalgia; Encounter for long-term current use of medication; Acquired hypothyroidism; Vitamin D deficiency; Ileostomy present (HCC); Chronic fatigue; Primary hypertension Start: 03-16-2025 End: 05-16-2025 Follow-up encounter Selina Driscoll APRN.CNS Work Phone: Internal Medicine [place] Start: 03-07-2025 End: 03-07-2025 Patient encounter procedure Clare Baez DO Work Phone: Hematology/Oncology Start: 03-07-2025 End: 03-07-2025 ambulatory Clare Baez DO Work Phone: Hematology/Oncology Comment on above: 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); History of DVT (deep vein thrombosis); Rectal bleeding Ileostomy present (H CC); Hypothyroidism, unspecified type; Primary hypertension; Vitamin D deficiency; Gastroesophageal reflux disease, unspecified whether esophagitis present; 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) Start: 02-26-2025 End: 02-26-2025 Refill Lidia Lopez MD Work Phone: [facility] Medicine [place] Comment on above: Refill Request Start: 02-25-2025 End: 03-02-2025 Refill Sy Matthews MD Work Phone: Cardiology Comment on above: Refill Request Start: 01-22-2025 End: 01-22-2025 Patient encounter procedure Chrissy Moser MD Work Phone: Pulmonary Medicine Comment on above: Bronchiectasis witho ut complication (HCC) (Primary Dx); 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); Chronic sinusitis, unspecified location; Class II obesity Start: 01-22-2025 End: 01-22-2025 ambulatory LIDIA LOPEZ Facility:[facility] Start: 01-13-2025 End: 01-13-2025 ambulatory ONOFRE Oneida JOVEL Facility:[facility] Start: 01-09-2025 End: 01-09-2025 Orders Only Sg Julien MD Work Phone: Hematology/Oncology Comment on above: 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); Allogeneic bone marrow transplant Start: 12-21-2024 End: 12-22-2024 ambulatory Lidia Lopez MD Work Phone: Internal Medicine [place] Comment on above: Urine Start: 12-18-2024 End: 12-18-2024 ambulatory LIDIA LOPEZ Facility:[facility] Start: 12-18-2024 End: 12-18-2024 Patient encounter procedure Sen Walton MD Work Phone: Ophthalmology Comment on above: 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); Dry eye syndrome of bilateral lacrimal glands; Pseudophakia Start: 12-11-2024 End: 12-11-2024 Refill Lidia Lopez MD Work Phone: Internal Medicine [place] Comment on above: Refill Request Start: 12-05-2024 End: 12-05-2024 ambulatory Lab/Port Jef [facility] Work Phone: Hematology/Oncology Comment on above: 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) Start: 10-31-2024 ambulatory Lidia Kumar y:[facility] Start: 10-18-2024 End: 10-18-2024 Subsequent hospital visit by physician Ronan [facility] Work Phone: Radiology Comment on above: Injury of right lowe r leg, initial encounter [S89.91XA] Start: 10-18-2024 End: 10-18-2024 ambulatory LIDIA LOPEZ Facility:[facility] Start: 10-18-2024 End: 10-18-2024 Patient encounter procedure Xiao King ANANT.LEAD HOUSEKEEPER Work Phone: [facility] Comment on above: Injury of right lowe r leg, initial encounter (Primary Dx) Start: 10-12-2024 End: 10-12-2024 Refill Lidia Lopez MD Work Phone: Internal Medicine [place] Comment on above: Do Not Send Eliquis to [facility] Start: 10-09-2024 End: 10-10-2024 Telephone encounter Lidia Lopez MD Work Phone: Internal Medicine [place] Comment on above: Medication Request Start: 10-06-2024 End: 10-20-2024 ambulatory Chrissy Moser Facility:[facility] Start: 09-21-2024 End: 09-21-2024 ambulatory LIDIA LOPEZ Facility:[facility] Start: 09-21-2024 End: 09-21-2024 Patient encounter procedure Selina Driscoll ANANT.BIG DATA HADOOP DEVELOPER Work Phone: Internal Medicine [place] Comment on above: Medicare annual well ness visit, subsequent (Primary Dx); Screening for depression; Encounter for screening examination for other mental health and behavioral disorders; Rhinorrhea; Chronic rhinitis; Hearing loss, unspecified hearing loss type, unspecified laterality; Chronic insomnia; Hypothyroidism, unspecified type; Primary hypertension; Gastroesophageal reflux disease, unspecified whether esophagitis present; Vitamin D deficiency; Ileostomy present ([facility]) Start: 09-18-2024 End: 09-19-2024 ambulatory Chrissy Moser Facility:[facility] Start: 09-08-2024 End: 09-14-2024 ambulatory Chrissy Moser MD Work Phone: Pulmonary Medicine Comment on above: Pulmonary rehab Start: 09-07-2024 End: 09-07-2024 Telephone encounter Chrissy Moser MD Work Phone: [place] Start: 09-05-2024 End: 09-05-2024 Office outpatient visit 15 minutes Clare Baez DO Work Phone: Hematology/Oncology Comment on above: 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); History of DVT (deep vein thrombosis) Start: 09-05-2024 End: 09-06-2024 ambulatory Lab/Port [facility] Work Phone: Hematology/Oncology Comment on above: 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); Type 2 diabetes mellitus with microalbuminuria, without long-term current use of insulin (HCC); Vitamin D deficiency; Acquired hypothyroidism; Hypomagnesemia; High serum vitamin B12; Chronic GVHD (HCC); History of DVT (deep vein thrombosis) Start: 08-23-2024 End: 08-24-2024 ambulatory Sen Walton MD Work Phone: Ophthalmology Comment on above: Xiidra Refill Request Start: 08-22-2024 End: 08-23-2024 ambulatory Clare Baez DO Work Phone: Hematology/Oncology Comment on above: Stoma Start: 08-21-2024 End: 08-23-2024 ambulatory Clare Baez DO Work Phone: Hematology/Oncology Comment on above: Bleeding stoma Start: 08-18-2024 End: 08-18-2024 ambulatory Lo Magaña RN Work Phone: [facility] Start: 08-18-2024 End: 08-18-2024 Follow-up encounter Lo Magaña RN Work Phone: [facility] Comment on above: Community Monitoring Outreach (Follow up) Start: 08-03-2024 End: 08-08-2024 Telephone encounter Lidia Lopez MD Work Phone: Internal Medicine [place] Comment on above: Ostomy supply order fax Start: 07-31-2024 End: 07-31-2024 ambulatory LIDIA LOPEZ Facility:[facility] Start: 07-31-2024 End: 07-31-2024 Patient encounter procedure Sy Matthews MD Work Phone: Cardiology Comment on above: SVT (supraventricula r tachycardia) (HCC) (Primary Dx); Primary hypertension Start: 07-26-2024 End: 07-26-2024 ambulatory Rosalia Ross MA [facility] [place] Start: 07-26-2024 End: 07-26-2024 Patient encounter procedure Rosalia Ross MA [facility] Comment on above: Population Health Na vigation Outreach ([employer],Work,[place]is [place] ) Encounter for gyneco logical examination (general) (routine) without abnormal findings (Primary Dx); Acute on chronic GVHD (HCC); 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); Atrophic vaginitis; Encounter for screening mammogram for breast cancer Start: 07-26-2024 End: 07-26-2024 Patient encounter status Nithya Casiano MD Work Phone: [facility] Start: 07-21-2024 End: 07-21-2024 Office outpatient visit 40 minutes Martinez Burton APRN.CNP Work Phone: Pulmonary Medicine Comment on above: Bronchiectasis witho ut complication (HCC) (Primary Dx); Nocturnal hypoxemia; Restrictive lung disease Start: 07-21-2024 End: 07-21-2024 [facility] Work Phone: [facility] Comment on above: Spirometry Start: 07-21-2024 End: 07-21-2024 Patient encounter procedure Pulm Lab [facility] Work Phone: [facility]ULM LAB [facility] Start: 07-20-2024 End: 07-20-2024 ambulatory LIDIA D TALAMPAS Facility:[facility] Start: 07-19-2024 End: 07-20-2024 ambulatory Clare Baez DO Work Phone: Hematology/Oncology Comment on above: Handicap pass Start: 06-21-2024 End: 06-21-2024 ambulatory LIDIA D TALAMPAS Facility:[facility] Start: 06-21-2024 Encounter for gynecological examination (general) (routine) without abnormal findings LIDIA LOPEZ [facility] Start: 06-21-2024 End: 06-21-2024 Patient encounter status Screen [facility] Start: 06-21-2024 End: 06-21-2024 Subsequent hospital visit by physician Screen Mammo [facility] M[facility]ogram Comment on above: Encounter for gyneco logical examination (general) (routine) without abnormal findings [Z01.419] Start: 06-13-2024 End: 06-13-2024 ambulatory LIDIA LOPEZ Facility:[facility] Start: 06-02-2024 End: 06-06-2024 Orders Only Sg Julien MD Work Phone: Hematology/Oncology Comment on above: SOB (shortness of br eath) (Primary Dx); Pain in both lower extremities Calcium Start: 06-01-2024 End: 06-01-2024 ambulatory Sg Julien MD Work Phone: Hematology/Oncology Comment on above: 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); Chronic GVHD (HCC); History of DVT (deep vein thrombosis); Allogeneic bone marrow transplant; Dyspnea on exertion; Hypertension, unspecified type; Bilateral thigh pain Start: 06-01-2024 End: 06-01-2024 Patient encounter procedure Sg Julien MD Work Phone: Hematology/Oncology Start: 06-01-2024 End: 06-02-2024 ambulatory Lab Port/[facility]ussein [address] Work Phone: Hematology/Oncology Comment on above: 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); Allogeneic bone marrow transplant; At risk for fluid and electrolyte imbalance Refill Request Start: 05-29-2024 End: 05-30-2024 E-mail encounter from caregiver Param Vizcaino APRN.CNP Work Phone: Internal Medicine [place] Start: 05-29-2024 End: 05-30-2024 ambulatory Param Vizcaino APRN.CNP Work Phone: Internal Medicine [place] Comment on above: Results Start: 05-29-2024 End: 05-29-2024 Subsequent hospital visit by physician Bone Density [facility] Work Phone: Radiology Comment on above: Screening for osteop orosis [Z13.820] Start: 04-18-2024 End: 04-18-2024 Emergency department patient visit Jitendra Eisenbergo Facility:[facility] Start: 03-29-2024 End: 03-29-2024 Patient encounter procedure Param Vizcaino APRN.LEAD HOUSEKEEPER Work Phone: Internal Medicine [place] Comment on above: 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); 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); Hypomagnesemia; High serum vitamin B12; Ileostomy present (HCC); Hypothyroidism, unspecified type; Screening for osteoporosis; Asymptomatic menopause Start: 03-06-2024 End: 03-06-2024 Patient encounter procedure Clare Baez DO Work Phone: Hematology/Oncology Start: 03-06-2024 End: 03-06-2024 ambulatory Clare Baez DO Work Phone: Hematology/Oncology Comment on above: 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); Chronic GVHD (HCC); History of DVT (deep vein thrombosis) Type 2 diabetes fred itus with microalbuminuria, without long-term current use of insulin (HCC); Vitamin D deficiency; Acquired hypothyroidism; 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) Start: 02-28-2024 Refill Sara murray APRN.LEAD HOUSEKEEPER Work Phone: Hematology/Oncology Comment on above: Refill Request Start: 02-28-2024 End: 02-28-2024 Patient encounter procedure Sen Walton MD Work Phone: Ophthalmology Comment on above: 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); Dry eye syndrome of bilateral lacrimal glands Start: 02-10-2024 End: 02-10-2024 Office outpatient visit 15 minutes Selina Driscoll APRN.BIG DATA HADOOP DEVELOPER Work Phone: Internal Medicine [place] Comment on above: Lesion of skin of br east (Primary Dx) Start: 01-03-2024 End: 01-03-2024 ambulatory Lab/Port Jef [facility] Work Phone: Hematology/Oncology Comment on above: 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) Start: 12-31-2023 ambulatory Chrissy Moser MD Work Phone: Pulmonary Medicine Comment on above: Oximeter test Start: 12-20-2023 Telephone encounter Jose jones PA-C Work Phone: Pulmonary Medicine Comment on above: Orders Start: 12-20-2023 End: 12-20-2023 Patient encounter procedure Sy Matthews MD Work Phone: Cardiology Comment on above: SVT (supraventricula r tachycardia) (HCC) (Primary Dx); Paroxysmal atrial fibrillation (HCC); Primary hypertension; Acute deep vein thrombosis (DVT) of femoral vein of both lower extremities (HCC) Bronchiectasis witho ut complication (HCC) (Primary Dx); 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); Nocturnal hypoxemia; Restrictive lung disease Start: 12-14-2023 ambulatory Lidia almaraz MD Work Phone: Internal Medicine [place] Comment on above: Prescription Start: 12-01-2023 End: 12-01-2023 ambulatory Lab/Port Jef [facility] Work Phone: Hematology/Oncology Comment on above: 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) Start: 11-30-2023 Refill Lidia almaraz MD Work Phone: Internal Medicine [place] Comment on above: Refill Request Start: 11-18-2023 Refill Lidia almaraz MD Work Phone: Internal Medicine [place] Start: 11-12-2023 ambulatory Rosalia Ross MA [facility] [place] Comment on above: Population Health Na vigation Outreach ([employer] [facility] 2.[facility].24) Start: 11-12-2023 Telephone encounter Rosalia Ross MA [facility] [place] Comment on above: Patient Question (Fo lic Acid) Start: 11-02-2023 [facility]ulatory [facility] Comment on above: CDM (Engagement) Start: 11-01-2023 Refill Lidia almaraz MD Work Phone: [facility] Comment on above: Refill Request (CORETTA DAVIS OF PHARMACY, SHORT TERM WHILE IN [facility]) Start: 09-29-2023 End: 09-29-2023 Office outpatient visit 25 minutes Lidia Lopez MD Work Phone: Internal Medicine [place] Comment on above: Bilateral tennis elb ow (Primary Dx); Acquired hypothyroidism; Type 2 diabetes mellitus with microalbuminuria, 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); B12 deficiency; Vitamin D deficiency; 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); 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); Ileostomy present (HCC) Start: 09-02-2023 Telephone encounter Clare ortega DO Work Phone: Hematology/Oncology Comment on above: AVS 09/02 Start: 08-29-2023 ambulatory Lidia almaraz MD Work Phone: Internal Medicine [place] Comment on above: Blood work Start: 07-21-2023 End: 07-21-2023 ambulatory Lab/[facility] Work Phone: Hematology/Oncology Comment on above: 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) Start: 07-16-2023 ambulatory Selina Cornell RN Work Phone: Psych Np Management Start: 06-28-2023 End: 06-28-2023 ambulatory Lab/[place] Work Phone: Hematology/Oncology Comment on above: 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) Start: 06-21-2023 Documentation procedure Mammog juan antonio Coordinator [facility] Start: 06-21-2023 Letter encounter Mammography Coordinator [facility] Department Start: 06-18-2023 End: 06-18-2023 Subsequent hospital visit by physician Screen Mammo [facility] Mammogram Comment on above: Encounter for screen ing mammogram for breast cancer [Z12.31] Start: 06-07-2023 End: 06-07-2023 Patient encounter procedure Rosalia Peters PA-C Work Phone: Pulmonary Medicine Comment on above: Bronchiectasis witho ut complication (HCC) (Primary Dx) Start: 06-01-2023 End: 06-01-2023 Office outpatient visit 40 minutes Sanjeev Ledesma MD Work Phone: Hematology/Oncology Comment on above: 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); Allogeneic bone marrow transplant; At risk for fluid and electrolyte imbalance; B12 deficiency; History of DVT (deep vein thrombosis); Elevated liver function tests; Hypothyroidism, unspecified type; Type 2 diabetes mellitus with microalbuminuria, without long-term current use of insulin (HCC); Chronic GVHD (HCC) Start: 06-01-2023 End: 06-01-2023 ambulatory Lab Port/[facility] Work Phone: Hematology/Oncology Comment on above: S/P allogeneic bone marrow transplant (HCC); At risk for fluid and electrolyte imbalance Start: 05-26-2023 Telephone encounter Rosalia Peters PA-C Work Phone: Pulmonary Medicine Start: 04-28-2023 End: 04-28-2023 ambulatory Lab/[place] Work Phone: Hematology/Oncology Comment on above: 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) Start: 04-26-2023 ambulatory Lidia almaraz MD Work Phone: Internal Medicine [place] Comment on above: Mammogram Start: 03-31-2023 End: 03-31-2023 ambulatory Lab/[place] Work Phone: Hematology/Oncology Comment on above: 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); Allogeneic bone marrow transplant; At risk for fluid and electrolyte imbalance Start: 03-29-2023 Patient Outreach Mary Yanez RN [facility] Care Management Comment on above: Transition Of Care ( Hospital Discharge 03/26/2023) Start: 03-26-2023 Fatoumata Matthews MD Work Phone: Cardiology Comment on above: Refill Request Start: 03-25-2023 ambulatory Sy Matthews MD Work Phone: Cardiology Comment on above: Medication Start: 03-24-2023 End: 03-25-2023 Emergency department patient visit [facility] Work Phone: Start: 03-22-2023 Refill Clare Tovar Work Phone: Hematology/Oncology Comment on above: Refill Request Start: 03-15-2023 End: 03-15-2023 Patient encounter procedure Sy Mathtews MD Work Phone: Cardiology Comment on above: SVT (supraventricula r tachycardia) (HCC) (Primary Dx); 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); Other emphysema (HCC) Start: 03-08-2023 ambulatory Rosalia Ross [facility] Comment on above: Population Health Na vigation Outreach ([employer] Care Gaps 5.30.23) Start: 03-03-2023 Chart abstracting Tracie Mcduffie RN Hematology/Oncology Comment on above: Research (Consent 50 24) Start: 03-03-2023 End: 03-03-2023 ambulatory Lab/[place] Work Phone: Hematology/Oncology Comment on above: 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); B12 deficiency Start: 01-25-2023 End: 01-25-2023 ambulatory Lab/[place] Work Phone: Hematology/Oncology Comment on above: 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) Start: 01-04-2023 Telephone encounter Ashanti Lamar Comment on above: Social Work Services Start: 12-30-2022 End: 12-30-2022 Patient encounter procedure Sen Walton MD Work Phone: Ophthalmology Comment on above: Dry eye syndrome of bilateral lacrimal glands (Primary Dx); 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) Start: 12-28-2022 End: 12-28-2022 ambulatory Lab/[place] Work Phone: Hematology/Oncology Comment on above: 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); Encounter for therapeutic drug monitoring; Elevated liver function tests; Hypothyroidism, unspecified type; B12 deficiency; Vitamin D deficiency; Type 2 diabetes mellitus with microalbuminuria, without long-term current use of insulin (HCC) Start: 12-25-2022 Telephone encounter Rosalia SCHMIDT [facility] Social Work Comment on above: Opened In Error Start: 12-18-2022 ambulatory Clare Tovar Work Phone: Hematology/Oncology Comment on above: Gvhd Start: 12-03-2022 End: 12-03-2022 Patient encounter procedure Chrissy Moser MD Work Phone: Pulmonary Medicine Comment on above: Bronchiectasis witho ut complication (HCC) (Primary Dx) Start: 12-03-2022 ambulatory Lidia almaraz MD Work Phone: Internal Medicine [place] Comment on above: Blood work Start: 11-30-2022 Telephone encounter Clare ortega DO Work Phone: Hematology/Oncology Comment on above: Handicap Placard Start: 11-30-2022 End: 11-30-2022 ambulatory Lab/[place] Work Phone: Hematology/Oncology Comment on above: 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) Start: 09-10-2022 Telephone encounter Mary gamez MD Work Phone: OB/Gynecology Comment on above: Vaginal Problem Start: 09-09-2022 Telephone encounter Clare ortega DO Work Phone: Hematology/Oncology Comment on above: Medication Problem ( Still taking Eliquis?) Start: 09-09-2022 End: 09-09-2022 Patient encounter procedure Clare Baez DO Work Phone: [facility] Start: 09-09-2022 End: 09-09-2022 ambulatory Lab/[place] [facility] Work Phone: Hematology/Oncology Comment on above: 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 Lidia Lopez Work Phone: [facility] 3 Start: 08-23-2022 Evaluation and manag ement of inpatient Dr. Lidia Lopez Work Phone: [facility] 3 Start: 08-23-[address] Lidia Lopez Work Phone: [facility] Work Phone: Start: 08-23-2022 Non-patient / Non-visit Dr. Navdeep Lopez Work Phone: [facility] Start: 08-20-2022 Orders Only Chrissy Moser MD Work Phone: Pulmonary Medicine Comment on above: Bronchiectasis witho ut complication (HCC) (Primary Dx) Start: 08-19-2022 ambulatory Chrissy Moser MD Work Phone: Pulmonary Medicine Comment on above: Treatment protocol Start: 08-15-2022 End: 08-18-2022 Evaluation and management of inpatient RYAN LUJAN JR. [facility] Start: 08-15-2022 End: 08-18-2022 Evaluation and management of inpatient [facility] Work Phone: [facility] Medical Unit 3 Start: 08-15-2022 End: 08-15-2022 Emergency department patient visit LIDIA LOPEZ [facility] Start: 08-12-2022 Telephone encounter Lidia bird MD Work Phone: Internal Medicine [place] Comment on above: Orders Start: 08-12-2022 End: 08-12-2022 Emergency department patient visit Dr. 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 ) Start: 07-26-2022 Refill [facility] Provider Pulmonary Medicine Comment on above: Refill Request (albu terol neb corrina ) Start: 07-25-2022 Refill Marcy Guerra MD Work Phone: Hematology/Oncology Comment on above: Refill Request Nasal spray Start: 06-22-2022 Telephone encounter Nidia Green APRN.LEAD HOUSEKEEPER Work Phone: Cardiology Comment on above: Results Start: 06-21-2022 Telephone encounter Clare ortega DO Work Phone: Hematology/Oncology Comment on above: Follow Up (Nutrition ist recommendations) Start: 06-19-2022 End: 06-19-2022 Telemedicine consultation with patient Conchis Tucker LOU Work Phone: [facility] Start: 06-19-2022 End: 06-19-2022 ambulatory Respiratory Therapist [facility] Work Phone: Pulmonary Medicine Comment on above: Spirometry POTS (postural ortho static tachycardia syndrome) (Primary Dx); Allogeneic bone marrow transplant; 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 Lidia Lopez Work Phone: [facility]Emergency Department Start: 06-17-2022 Documentation procedure Mammog juan antonio [facility] Start: 06-17-2022 Letter encounter Mammography Coordinator [facility] Department Start: 06-17-2022 Telephone encounter Chrissy Moser MD Work Phone: Pulmonary Medicine Comment on above: Patient Update Start: 06-17-2022 End: 06-17-2022 Subsequent hospital visit by physician Screen Mammo [facility] Mammogram Comment on above: Encounter for gyneco logical examination (general) (routine) without abnormal findings [Z01.419] Start: 06-11-2022 End: 06-11-2022 ambulatory Lab Port/Keenan Fuchs [facility] 1 Work Phone: Hematology/Oncology Comment on above: Acute myeloid leukem ia in remission (HCC); 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); Encounter for antineoplastic chemotherapy Encounter for antine oplastic chemotherapy (Primary Dx) Start: 06-11-2022 End: 06-11-2022 ambulatory Sg Julien MD Work Phone: Hematology/Oncology Comment on above: Allogeneic bone bouchra ow transplant (Primary Dx); Acute myeloid leukemia in remission (HCC); Thrush (oral); Need for influenza vaccination; 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); History of DVT (deep vein thrombosis); Vitamin D deficiency; Thrush; Hypothyroidism, unspecified type Start: 06-11-2022 End: 06-11-2022 Patient encounter procedure Sg Julien MD Work Phone: [facility] Start: 06-10-2022 Telephone encounter Lidia bird MD Work Phone: Internal Medicine [place] Comment on above: HHC PT Start: 06-08-2022 Telephone encounter Clare ortega DO Work Phone: Hematology/Oncology Comment on above: Results (Echocardiog sissy normal) Start: 06-04-2022 End: 06-04-2022 Infusion Center Lab/[place] [facility] Work Phone: Hematology/Oncology Comment on above: Electrolyte and flui d disorder; Acute myeloid leukemia in remission (HCC); Chronic GVHD (HCC); Acute deep vein thrombosis (DVT) of femoral vein of both lower extremities (HCC); Dyspnea and respiratory abnormalities Acute deep vein thro mbosis (DVT) of femoral vein of both lower extremities (HCC) (Primary Dx); Dyspnea and respiratory abnormalities; 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) Start: 06-03-2022 Orders Only Clare Tovar Work Phone: Hematology/Oncology Comment on above: Acute myeloid leukem ia in remission (HCC) (Primary Dx); Chronic GVHD (HCC) Acute myeloid leukem ia in remission (HCC) (Primary Dx); 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 Lidia Lopez Work Phone: [facility] Work Phone: Start: 05-25-2022 End: 05-25-[address] Lidia Lopez Work Phone: [facility] Start: 05-22-2022 End: 06-10-[address] LIDIA LOPEZ MD. Facility:R Start: 05-21-2022 Telephone encounter Lidia bird MD Work Phone: Internal Medicine [place] Comment on above: Orders Appointment Start: 05-18-2022 End: 05-20-[address] LIDIA LOPEZ MD. Facility:B Start: 05-18-2022 End: 05-20-2022 Observation GENESIS Sanz EMMIEMICHELLE ANESTHESIA ATTENDING-LEAD HOUSEKEEPER [facility] Start: 05-15-2022 ambulatory Lidia almaraz MD Work Phone: Internal Medicine [place] Comment on above: Abdominal Pain; Back Pain Start: 05-15-2022 End: 05-15-2022 Emergency department patient visit Dr. Lidia Lopez Work Phone: [facility]Emergency Department Start: 05-14-2022 Telephone encounter Nithya Casiano MD Work Phone: OB/Gynecology Comment on above: Patient Question Start: 05-13-2022 End: 05-13-2022 Emergency department patient visit Dr. 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); Rash and nonspecific skin eruption; Macrocytosis without anemia; Vitamin D deficiency; Acquired hypothyroidism Start: 05-04-2022 End: 05-04-2022 ambulatory Lab/[place] Work Phone: Hematology/Oncology Comment on above: Acute myeloid leukem ia in remission (HCC); Type 2 diabetes mellitus with microalbuminuria, without long-term current use of insulin (HCC); Hair thinning; Acquired hypothyroidism; Vitamin D deficiency; Gastroesophageal reflux disease, unspecified whether esophagitis present Pain med Sore feet and legs Start: 04-24-2022 End: 04-24-2022 Patient encounter procedure Aleyda Corey MD Work Phone: OB/Gynecology Comment on above: Vulvar pain (Primary Dx); Dysuria; 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) Start: 04-24-2022 ambulatory Lidia almaraz MD Work Phone: Internal Medicine [place] Comment on above: Lab work Start: 04-23-2022 Telephone encounter Nithya Casiano MD Work Phone: OB/Gynecology Comment on above: Medication Question Start: 04-21-2022 ambulatory Nithya coronel MD Work Phone: OB/Gynecology Comment on above: Gvhd meds Start: 04-21-2022 Telephone encounter Nithya Casiano MD Work Phone: OB/Gynecology Comment on above: Medication Problem Start: 04-03-2022 End: 04-03-2022 ambulatory Lab/[place] Work Phone: Hematology/Oncology Comment on above: Acute myeloid leukem ia in remission (HCC); H/O allogeneic bone marrow transplant (HCC) Start: 03-30-2022 End: 03-30-2022 Patient encounter procedure Sen Walton MD Work Phone: Ophthalmology Comment on above: 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); Dry eye; Recurrent erosion of right cornea; Pseudophakia Start: 03-13-2022 Telephone encounter Lidia bird MD Work Phone: Internal Medicine [place] Comment on above: D/C from [place] Start: 03-09-2022 Telephone encounter Conchis holcomb RD Work Phone: Nutrition Therapy Comment on above: Appointment Start: 03-06-2022 Telephone encounter Lidia bird MD Work Phone: Internal Medicine [place] Comment on above: Results Start: 03-05-2022 ambulatory Selina Driscoll APRN.BIG DATA HADOOP DEVELOPER Work Phone: Internal Medicine [place] Comment on above: Test results Start: 03-05-2022 Telephone encounter Delroy carter MD Work Phone: Pulmonary Medicine Comment on above: Questions Start: 03-04-2022 End: 03-04-2022 ambulatory Lab/[place] [facility] Work Phone: Hematology/Oncology Comment on above: Type 2 diabetes fred itus with microalbuminuria, without long- term current use of insulin (HCC); Acquired hypothyroidism; Hair thinning; Vitamin D deficiency Start: 03-02-2022 Telephone encounter Delroy carter MD Work Phone: Pulmonary Medicine Comment on above: Patient Update Start: 02-26-2022 Telephone encounter Lidia bird MD Work Phone: Internal Medicine [place] Comment on above: Patient Update Start: 02-26-2022 End: 02-26-2022 Emergency department 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) Magnesium Supplement Start: 02-19-2022 E-mail encounter naheed mallika caregiver [facility] Provider [facility] Start: 02-19-2022 End: 02-19-2022 Telemedicine consultation with patient Conchis Tucker RD Work Phone: [facility] Start: 02-17-2022 ambulatory Clare Tovar Work Phone: Hematology/Oncology Comment on above: Handicap pass Start: 02-12-2022 Telephone encounter Conchis holcomb RD Work Phone: Nutrition Therapy Comment on above: Appointment Start: 02-12-2022 End: 02-12-2022 ambulatory Conchis Tucker LOU Work Phone: Nutrition Therapy Comment on above: Colostomy status (HC C) (Primary Dx); Ileostomy present (HCC); 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) Start: 02-12-2022 End: 02-12-2022 Telemedicine consultation with patient Conchis Tucker RD Work Phone: [facility] Start: 02-10-2022 End: 02-10-2022 Patient encounter procedure Selina Driscoll ANANT.BIG DATA HADOOP DEVELOPER Work Phone: Internal Medicine [place] Comment on above: Acquired hypothyroid ism (Primary Dx); Type 2 diabetes mellitus with microalbuminuria, without long-term current use of insulin (HCC); Vitamin D deficiency; Stage 3a chronic kidney disease (HCC); Hair thinning; Excessive cerumen in ear canal, right; Gastroesophageal reflux disease, unspecified whether esophagitis present; Colostomy status (HCC); Bronchiectasis without acute exacerbation (HCC); 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); Chronic anticoagulation Start: 02-06-2022 Telephone encounter Lidia bird MD Work Phone: Internal Medicine [place] Comment on above: Orders Start: 02-02-2022 End: 02-02-2022 ambulatory Lab/[place] Work Phone: Hematology/Oncology Comment on above: Acute myeloid leukem ia in remission (HCC) 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); Chronic GVHD (HCC) Red blood count Start: 02-02-2022 Telephone encounter Clare ortega DO Work Phone: Hematology/Oncology Comment on above: Follow Up Start: 02-02-2022 End: 02-02-2022 Patient encounter procedure Clare Baez DO Work Phone: [facility] Start: 01-30-2022 Orders Only Clare Tovar Work Phone: Hematology/Oncology Comment on above: Acute myeloid leukem ia in remission (HCC) (Primary Dx) Start: 01-29-2022 Orders Only Clare Tovar Work Phone: Hematology/Oncology Comment on above: Acute myeloid leukem ia in remission (HCC) (Primary Dx); H/O allogeneic bone marrow transplant (HCC) Start: 01-28-2022 Telephone encounter Lidia bird MD Work Phone: Internal Medicine [place] Comment on above: OT plan of care Start: 01-20-2022 End: 01-20-2022 ambulatory Lab/[place] Work Phone: Hematology/Oncology Comment on above: Acute myeloid leukem ia in remission (HCC) (Primary Dx); PEPE (acute kidney injury) (HCC) Start: 01-20-2022 Telephone encounter Selina kohli APRN.BIG DATA HADOOP DEVELOPER Work Phone: Internal Medicine [place] Comment on above: Results, Lab Start: 01-19-2022 Telephone encounter Lidia bird MD Work Phone: Internal Medicine [place] Comment on above: Patient Request (HHC ) Start: 01-16-2022 Telephone encounter Lidia bird MD Work Phone: Internal Medicine [place] Comment on above: Home Health Point of Care Results Lab Orders (hospital follow up PEPE) Start: 01-15-2022 Telephone encounter Lidia bird MD Work Phone: Family Medicine [place] Comment on above: Home Health Request Start: 01-15-2022 Non-patient / Non-visit Dr. Navdeep Lopez Work Phone: [facility] Start: 01-14-2022 Non-patient / Non-visit Dr. Navdeep Lopez Work Phone: [facility] Start: 01-13-2022 Non-patient / Non-visit Dr. Navdeep Lopez Work Phone: [facility] Start: 01-12-2022 Non-patient / Non-visit Dr. Navdeep Lopez Work Phone: [facility] Start: 01-11-2022 Non-patient / Non-visit Dr. Navdeep Lopez Work Phone: [facility] Start: 01-11-2022 End: 01-15-2022 Evaluation and management of inpatient [facility] Start: 01-10-2022 Non-patient / Non-visit Dr. Navdeep Lopez Work Phone: [facility] Start: 01-09-2022 Non-patient / Non-visit Dr. Navdeep Lopez Work Phone: [facility] Start: 01-08-2022 Non-patient / Non-visit Dr. Navdeep Lopez Work Phone: [facility] Start: 01-08-2022 End: 01-10-2022 Evaluation and management of inpatient [facility] 3 Start: 01-02-2022 End: 01-02-2022 ambulatory Lab/[facility] Work Phone: Hematology/Oncology Comment on above: Acute myeloid leukem ia in remission (HCC) (Primary Dx) Start: 12-23-2021 Refill Clare Tovar Work Phone: Hematology/Oncology Comment on above: Refill Request Start: 12-17-2021 Telephone encounter Delroy carter MD Work Phone: Pulmonary Medicine Comment on above: Electronic Communica tion (aptiva rx albuterol) Start: 12-04-2021 Orders Only Sg Julien MD Work Phone: Hematology/Oncology Comment on above: Elevated MCV (Primar y Dx); Acute myeloid leukemia in remission (HCC); Electrolyte and fluid disorder; Ventral hernia without obstruction or gangrene Start: 05-27-2021 End: 05-27-2021 Subsequent hospital visit by physician Xr [facility] Work Phone: Radiology Comment on above: Cough [R05] Start: 05-13-2021 End: 05-13-2021 Subsequent hospital visit by physician Xr [facility] Luis Fernando Work Phone: Radiology Comment on above: Lower respiratory in fection [J22] Start: 10-28-2020 End: 10-28-2020 Orders Only Nevaeh Bell Work Phone: [facility] Start: 03-04-2020 Patient encounter status [facility] Work Phone: Start: 02-19-2020 Patient encounter procedure [facility] Work Phone: Start: 09-17-2018 End: 09-17-2018 Emergency department patient visit Larry Rhodes Antoniaadeliamargaritahomero Work Phone: [facility] Emergency Department Comment on above: Dehydration (Primary Dx); Nausea vomiting and diarrhea Start: 05-13-2018 [facility] Procedures Date Procedure Procedure Detail Performing Clinician Start: 05-04-2025 Blood count complete auto&auto difrntl wbc Clarita Parks MD Work Phone: Start: 04-18-2025 Follow-up visit Follow Up JONATHAN POSEY Start: 04-11-2025 Colonoscopy flx dx w /collj spec when pfrmd Jonathan Posey MD Work Phone: Start: 04-11-2025 Colonoscopy Jenn Fi nat DO Work Phone: Start: 03-07-2025 Blood count complete auto&auto difrntl wbc Clare Baez DO Work Phone: Start: 10-18-2024 Radiologic examinati on tibia & fibula 2 views Xiao Coffey ANESTHESIA ATTENDING.LEAD HOUSEKEEPER Work Phone: Start: 09-21-2024 Adult depression scr eening assessment Selina Driscoll ANESTHESIA ATTENDING.BIG DATA HADOOP DEVELOPER Work Phone: Start: 09-05-2024 Blood count complete auto&auto difrntl wbc Clare Baez DO Work Phone: Start: 07-21-2024 Plethysmography lung volumes w/wo airway resist Chrissy Moser MD Work Phone: Start: 06-21-2024 Screening mammograph y bi 2-view breast inc cad Nithya Casiano MD Work Phone: Start: 06-01-2024 Blood count complete auto&auto difrntl wbc Sg Julien MD Work Phone: Start: 05-29-2024 BD DXA TRABECULAR JERILYN NE SCORE (TBS) Param Vizcaino ANESTHESIA ATTENDING.LEAD HOUSEKEEPER Work Phone: Start: 05-29-2024 Dxa bone density rene dy 1/> sites axial skel Param Vizcaino ANESTHESIA ATTENDING.LEAD HOUSEKEEPER Work Phone: Start: 03-06-2024 Blood count complete auto&auto difrntl wbc Clare Mcdonough Masci DO Work Phone: Start: 12-20-2023 End: 12-20-2023 Ecg routine ecg w/least 12 lds i&r only [facility] Provider Start: 06-18-2023 Screening mammograph y bi 2-view breast inc cad Cristina Older ANESTHESIA ATTENDING.LEAD HOUSEKEEPER Work Phone: Start: 06-01-2023 Blood count complete auto&auto difrntl wbc Sanjeev Ledesma MD Work Phone: Start: 03-31-2023 Blood count complete auto&auto difrntl wbc Sg Julien MD Work Phone: Start: 03-24-2023 Computed tomography of abdomen and pelvis with intravenous contrast Start: 03-03-2023 Blood count complete auto&auto difrntl wbc Clare Mcdonough Masci DO Work Phone: Start: 12-30-2022 Clsr lacrimal mikeu mallika thermocaut lig/loivia Walton MD Work Phone: Start: 12-28-2022 Blood count complete auto&auto difrntl wbc Param Vizcaino ANESTHESIA ATTENDING.LEAD HOUSEKEEPER Work Phone: Start: 09-09-2022 Blood count complete auto&auto difrntl wbc Clare Mcdonough Masci DO Work Phone: Start: 08-24-2022 Plain chest X-ray Dr. Nikolai Lopez Work Phone: Start: 08-23-2022 CT angiography of ch est with contrast Dr. Lidia Lopez Work Phone: Start: 08-18-2022 Glucose measurement Koby Lujan MD Work Phone: Start: 08-18-2022 Glucose measurement [facility] Work Phone: Start: 08-17-2022 Smr prim src gram/gi emsa stain bct fungi/cell Dona Sveta Bessas DO Work Phone: Start: 08-17-2022 Glucose measurement [facility] Work Phone: Start: 08-17-2022 Glucose measurement [facility] Work Phone: Start: 08-17-2022 Culture bacterial quanttative colony count urine Emi Pillai DO Work Phone: Start: 08-17-2022 Glucose measurement [facility] Work Phone: Start: 08-17-2022 End: 08-17-2022 Blood count complete auto&auto difrntl wbc Emi Pillai DO Work Phone: Start: 08-17-2022 Glucose measurement [facility] Work Phone: Start: 08-16-2022 Glucose measurement [facility] Work Phone: Start: 08-16-2022 Glucose measurement [facility] Work Phone: Start: 08-16-2022 Glucose measurement [facility] Work Phone: Start: 08-16-2022 Blood count complete automated Dona Sveta Bessas DO Work Phone: Start: 08-12-2022 Plain chest X-ray Dr. Nikolai Lopez Work Phone: Start: 06-19-2022 Spmtry w/vc expirato ry mery w/wo mxml vol vntj Delroy De La Rosa MD Work Phone: Start: 06-18-2022 Plain chest X-ray Dr. Nikolai Lopez Work Phone: Start: 06-17-2022 End: 06-17-2022 Screening mammography bi 2-view breast inc cad Nithya Casiano MD Work Phone: Start: 06-11-2022 Blood count complete auto&auto difrntl wbc Sg Julien MD Work Phone: Start: 06-04-2022 Blood count complete auto&auto difrntl wbc Clare Mcdonough Masci DO Work Phone: Start: 06-04-2022 Blood count complete auto&auto difrntl wbc Clare A Masci DO Work Phone: Start: 06-01-2022 Adult depression scr eening assessment Nidia Green ANESTHESIA ATTENDING.LEAD HOUSEKEEPER Work Phone: Start: 05-15-2022 Plain X-ray of hip Dr. Liida Lopez Work Phone: Start: 05-15-2022 CT of abdomen and pe lvis without contrast Dr. Lidia Lopez Work Phone: Start: 05-04-2022 CBC + DIFF Sg lópez MD Work Phone: Start: 05-04-2022 Comprehensive metabo lic panel Sg Julien MD Work Phone: Start: 05-04-2022 Lipid 1996 panel - S kiley or Plasma Sen Walton MD Work Phone: Start: 04-24-2022 Urnls dip stick/tabl et rgnt auto w/o microscopy Aleyda Corey MD Work Phone: Start: 04-03-2022 Blood count complete auto&auto difrntl wbc Clare Ceasar Masci DO Work Phone: Start: 02-26-2022 Plain chest X-ray Dr. Nikolai Lopez Work Phone: Start: 02-26-2022 SARS-CoV-2 & FLU Ant igen (Rapid) Dr. Lidia Lopez Work Phone: Start: 02-02-2022 Blood count complete auto&auto difrntl wbc Clare A Masci DO Work Phone: Start: 02-01-2022 Adult depression scr eening assessment Lab/Port Wstr Work Phone: Start: 01-20-2022 Basic metabolic pane l calcium total Selina Driscoll ANESTHESIA ATTENDING.BIG DATA HADOOP DEVELOPER Work Phone: Start: 01-08-[address] diff[address] e detection Dr. Lidia Lopez Work Phone: Start: 01-08-[address] Sommer Lopez Work Phone: Start: 01-08-[address] Lidia Lopez Work Phone: Start: 01-08-2022 Ova [place] parasites identification Dr. Lidia Lopez Work Phone: Start: 01-08-[address] difficil e detection Dr. Lidia Lopez Work Phone: Start: 01-08-[address] Lidia Lopez Work Phone: Start: 01-08-2022 [address]va [place] parasites identification Dr. Lidia Lopez Work Phone: Start: 09-12-2021 Adult depression scr eening assessment Delroy De La Rosa MD Work Phone: Start: 05-27-2021 Radiologic exam ches t 2 views Xiao Coffey ANESTHESIA ATTENDING.LEAD HOUSEKEEPER Work Phone: Start: 05-19-2021 Mammography Delroy carter MD Work Phone: Start: 05-13-2021 Radiologic exam ches t 2 views Selina Driscoll ANESTHESIA ATTENDING.BIG DATA HADOOP DEVELOPER Work Phone: Start: 09-18-2018 End: 06-03-2022 H/O: colostomy Colostomy status Delroy De La Rosa MD Work Phone: Start: 09-17-2018 End: 09-17-2018 Urnls dip stick/tablet rgnt auto w/o microscopy Larry Rhodes Omar Work Phone: Start: 09-17-2018 End: 09-17-2018 Calcium ionized Larry Knightvenicehomero Work Phone: Start: 09-17-2018 End: 09-17-2018 Albumin serum plasma/whole blood Larry Rhodes Omar Work Phone: Start: 09-17-2018 End: 09-17-2018 Blood count complete auto&auto difrntl wbc Larry Small Work Phone: Start: 06-30-2015 Colonoscopy Delroy carter MD Work Phone: section GENESIS WONG ANESTHESIA ATTENDING-LEAD HOUSEKEEPER Comment on above: x 2 Cholecystectomy GENESIS WONG ANESTHESIA ATTENDING-LEAD HOUSEKEEPER Colostomy GENESIS WONG APR N-LEAD HOUSEKEEPER H/O: colostomy Colostomy status (HCC) Selina Driscoll ANESTHESIA ATTENDING.BIG DATA HADOOP DEVELOPER Work Phone: H/O: colostomy Colostomy status (HCC) Conchis Tucker RD Work Phone: H/O: colostomy Colostomy status (HCC) Conchis Tucker RD Work Phone: Insertion of inferio r vena caval filter GENESIS WONG ANESTHESIA ATTENDING-LEAD HOUSEKEEPER Legionella pneumophi la antigen assay Dr. Lidia Lopez Work Phone: Parastomal hernia (disorder) GENESIS WONG ANESTHESIA ATTENDING-LEAD HOUSEKEEPER Respiratory Panel (PCR) Dr. Lidia Lopez Work Phone: SARS-CoV-2 & FLU Ant igen (Rapid) Dr. Lidia Lopez Work Phone: Streptococcus pneumo niae Antigen (M Dr. Lidia Lopez Work Phone: Total replacement of hip LIS Ceasar WONG ANESTHESIA ATTENDING-LEAD HOUSEKEEPER Comment on above: left Urine culture Dr. Lidia phillips Work Phone: Viral antigen assay Dr. Lidia Lopez Work Phone: Plan of Treatment Date Care Activity Detail Author Start: 04-11-2035 Screening for malignant neoplasm of colon [facility] Start: 05-04-2028 Diabetes Screening Diabetes Screening [facility] Start: 03-07-2028 Diabetes Screening Diabetes Screening [facility] Start: 09-05-2027 Diabetes Screening Diabetes Screening [facility] Start: 06-01-2027 Diabetes Screening Diabetes Screening [facility] Start: 05-04-2027 Lipid panel Lipid Screening [facility] Start: 03-06-2027 Diabetes Screening Diabetes Screening [facility] Start: 09-02-2026 Diabetes Screening Diabetes Screening [facility] Start: 05-29-2026 Screening for osteoporosis Bone Density Screening [facility] Start: 04-29-2026 Tetanus vaccination [facility] Start: 04-29-2026 Urine microalbumin profile [facility] Start: 04-05-2026 End: 04-05-2026 Patient encounter procedure 04/05/2026 9:00 AM EDT Office Visit Internal Medicine [place] [address] [place] [address] Lidia Lopez MD [address] [place], [place] [id number] Medicare Internal Medicine Luis Fernando Comment on above: Medicare Start: 03-28-2026 Annual PCP Team Chronic Disease Visit Annual PCP Team Chronic Disease Visit [facility] Start: 01-22-2026 BP Controlled (<130/80) BP Controlled (<130/80) [facility] Start: 12-31-2025 End: 12-31-2025 Patient encounter procedure 12/31/2025 10:45 AM EDT Office Visit [facility] Ophthalmology [address] [place] [address] Sen Walton MD [address] [place] [address] Return in about 1 year (around 12/18/2025). Ophthalmology Comment on above: Return in about 1 year (around 12/18/2025 ). Start: 10-18-2025 BP Controlled (<130/80) BP Controlled (<130/80) [facility] Start: 09-27-2025 End: 09-27-2025 Patient encounter procedure [facility] [place] Comment on above: 6 month follow up 6 month follow up HCC Closure 6 month follow up HCC & care gap Closure Start: 09-21-2025 Anxiety Screening Anxiety Screening [facility] Start: 09-21-2025 BP Controlled (<130/80) BP Controlled (<130/80) [facility] Start: 09-21-2025 Covid-19 Vaccine () Covid-19 Vaccine ( - ) [facility] Comment on above: Postponed from 07/27/2024 (Declined at t his time) Start: 09-21-2025 Covid-19 Vaccine (5 - Moderna risk season) Covid-19 Vaccine (5 - Moderna risk ) [facility] Comment on above: Postponed from 11/29/2024 (Declined at t his time) Start: 09-21-2025 Depression Screening Depression Screening [facility] Start: 09-06-2025 End: 09-06-2025 ambulatory Hematology/Oncology Comment on above: CBC/CMP(PORT) 6MO OV/EARLY LABS Start: 08-20-2025 End: 11-19-2025 25-hydroxyvitamin D3 [Mass/volume] in Serum or Plasma VITAMIN D 25 HYDROXY Lab Routine Encounter for long-term current use of medication Vitamin D deficiency Expected: 08/20/2025 (Approximate), Expires: 11/19/2025 [facility] Comment on above: Expected: 08/20/2025 (Approximate), Expi res: 11/19/2025 Start: 08-20-2025 End: 11-19-2025 Creatine kinase [Enzymatic activity/volume] in Serum or Plasma CREATINE KINASE/CK Lab Routine Myalgia Encounter for long-term current use of medication Expected: 08/20/2025 (Approximate), Expires: 11/19/2025 [facility] Comment on above: Expected: 08/20/2025 (Approximate), Expi res: 11/19/2025 Start: 08-20-2025 End: 11-19-2025 Hemoglobin A1c in Blood HEMOGLOBIN A1C Lab Routine Encounter for long-term current use of medication Expected: 08/20/2025 (Approximate), Expires: 11/19/2025 [facility] Work Phone: Comment on above: Expected: 08/20/2025 (Approximate), Expi res: 11/19/2025 Start: 08-20-2025 End: 11-19-2025 Magnesium [Mass/volume] in Serum or Plasma MAGNESIUM Lab Routine Encounter for long-term current use of medication Expected: 08/20/2025 (Approximate), Expires: 11/19/2025 [facility] Comment on above: Expected: 08/20/2025 (Approximate), Expi res: 11/19/2025 Start: 08-20-2025 End: 11-19-2025 Thyrotropin [Units/volume] in Serum or Plasma THYROID STIMULATING HORMONE Lab Routine Encounter for long-term current use of medication Acquired hypothyroidism Expected: 08/20/2025 (Approximate), Expires: 11/19/2025 [facility] Comment on above: Expected: 08/20/2025 (Approximate), Expi res: 11/19/2025 Start: 08-20-2025 End: 11-19-2025 Thyroxine (T4) free [Mass/volume] in Serum or Plasma T4 FREE/FREE THYROXINE Lab Routine Encounter for long-term current use of medication Acquired hypothyroidism Expected: 08/20/2025 (Approximate), Expires: 11/19/2025 [facility] Comment on above: Expected: 08/20/2025 (Approximate), Expi res: 11/19/2025 Start: 08-20-2025 End: 11-19-2025 Triiodothyronine (T3) Free [Mass/volume] in Serum or Plasma T3, FREE Lab Routine Encounter for long-term current use of medication Acquired hypothyroidism Expected: 08/20/2025 (Approximate), Expires: 11/19/2025 [facility] Comment on above: Expected: 08/20/2025 (Approximate), Expi res: 11/19/2025 Start: 08-01-2025 End: 08-01-2025 ambulatory 08/01/2025 10:00 AM EST [facility] Hematology/Oncology [address] [place] [address] Wstr, Lab/Port Jef [facility] [address] [place] [address] PORT FLUSH Hematology/Oncology Comment on above: PORT FLUSH Start: 07-31-2025 BP Controlled (<130/80) BP Controlled (<130/80) [facility] in Start: 07-31-2025 End: 07-31-2025 Patient encounter procedure 07/31/2025 1:40 PM EST Office Visit OB/Gynecology [address] [place] [address] Nithya Casiano MD [address] [place] [address] Yearly visit for gvhd OB/Gynecology Comment on above: Yearly visit for gvhd Start: 07-30-2025 End: 07-30-2025 Patient encounter procedure Cardiology Comment on above: Yearly Start: 07-27-2025 End: 07-27-2025 Patient encounter procedure 07/27/2025 8:30 AM EST Appointment Mammogram [address] [place] [address] Encounter for screening mammogram for breast cancer [Z12.31] Mammogram Comment on above: Encounter for screening mammogram for br east cancer [Z12.31] Start: 07-26-2025 BP Controlled (<130/80) BP Controlled (<130/80) [facility] Start: 07-24-2025 End: 07-24-2025 Patient encounter procedure 07/24/2025 2:45 PM EST Office Visit Pulmonary Medicine [address] [place] [address] Chrissy Moser MD [address] [place] [address] 6 month f/u Pulmonary Medicine Comment on above: 6 month f/u Start: 06-30-2025 Colonoscopy COLONOSCOPY [facility] Start: 06-30-2025 COLORECTAL CANCER SCREENING COLORECTAL CANCER SCREENING [facility] Start: 06-30-2025 Screening for malignant neoplasm of colon [facility] Start: 06-21-2025 Screening for malignant neoplasm of breast Mammogram Screening [facility] Start: 06-01-2025 BP Controlled (<130/80) BP Controlled (<130/80) [facility] inic Start: 05-23-2025 End: 06-15-2026 CT Heart and Coronary arteries for calcium scoring WO contrast CT CALCIUM SCORING (CARDIAC) WO IVCON Radiology Routine Encounter for screening for cardiovascular disorders Expected: 05/23/2025, Expires: 06/15/2026 [facility] Work Phone: Comment on above: Expected: 05/23/2025, Expires: Start: 05-21-2025 Influenza vaccination Influenza Vaccine (#1) [facility] Start: 05-04-2025 End: 05-04-2025 ambulatory [facility] [place] [address] Comment on above: AML/C92.00 Start: 05-03-2025 End: 05-03-2025 [facility] [place] [address] Comment on above: AML/C92.00 Start: 04-30-2025 End: 07-30-2025 CBC W Auto Differential panel - Blood COMPLETE BLOOD COUNT AND DIFFERENTIAL Lab Routine 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 Expected: 04/30/2025 (Approximate), Expires: 07/30/2025 [facility] Work Phone: Comment on above: Expected: 04/30/2025 (Approximate), Expi res: 07/30/2025 Start: 04-30-2025 End: 07-30-2025 Comprehensive metabolic 2000 panel - Serum or Plasma COMPREHENSIVE METABOLIC PANEL Lab Routine 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 Expected: 04/30/2025 (Approximate), Expires: 07/30/2025 [facility] Comment on above: Expected: 04/30/2025 (Approximate), Expi res: 07/30/2025 Start: 04-24-2025 End: 04-24-2025 Patient encounter procedure 04/24/2025 10:30 AM EDT Appointment Ambulatory Surgery [address] [place] [address] Rowan Loza MD [address] [place] [address] Ambulatory Surgery Start: 04-18-2025 End: 04-18-2025 Patient encounter procedure 04/18/2025 1:00 PM EDT Office Visit General Surgery [address] [place] [address] Jonathan Posey MD [address] [place] [address] FU: Colonoscopy with path 04/11/[address] Burton. Follow up-per Dr. Posey. Surg hx updated. [facility] General Surgery Comment on above: FU: Colonoscopy with path 04/11/[address] Sommer Burton. Follow up-per Dr. Posey. Surg hx updated. [facility] Start: 04-11-2025 End: 04-11-2025 Patient encounter procedure 04/11/2025 10:45 AM EDT Appointment Ambulatory Surgery [address] [place] [address] Jenn Burton, DO [address] [place] [address] Rectal bleeding [K62.5] Ambulatory Surgery Comment on above: Rectal bleeding [K62.5] Start: 04-04-2025 End: 04-04-2025 Patient encounter procedure 04/04/2025 2:15 PM EDT Office Visit General Surgery [address] [place] [address] Jonathan Posey MD [address] [place] [address] History of DVT (deep vein thrombosis) [Z86.718] General Surgery Comment on above: History of DVT (deep vein thrombosis) [Z 86.718] Start: 03-29-2025 Annual PCP Team Chronic Disease Visit Annual PCP Team Chronic Disease Visit [facility] Start: 03-29-2025 BP Controlled (<130/80) BP Controlled (<130/80) [facility] in Start: 03-28-2025 End: 03-28-2025 Patient encounter procedure 03/28/2025 2:20 PM EDT Office Visit Internal Medicine [place] [address] [facility], [place] [id number] Lidia Lopez MD [address] [place], [place] [address] 6 month f/u Internal Medicine [place] Comment on above: 6 month f/u Start: 03-19-2025 End: 09-20-2025 25-hydroxyvitamin D3 [Mass/volume] in Serum or Plasma VITAMIN D 25 HYDROXY Lab Routine Vitamin D deficiency Ileostomy present (HCC) Expected: 03/19/2025 (Approximate), Expires: 09/20/2025 [facility] Comment on above: Expected: 03/19/2025 (Approximate), Expi res: 09/20/2025 Start: 03-19-2025 End: 09-20-2025 CBC W Auto Differential panel - Blood COMPLETE BLOOD COUNT AND DIFFERENTIAL Lab Routine Primary hypertension Gastroesophageal reflux disease, unspecified whether esophagitis present Ileostomy present (HCC) Expected: 03/19/2025 (Approximate), Expires: 09/20/2025 [facility] Work Phone: Comment on above: Expected: 03/19/2025 (Approximate), Expi res: 09/20/2025 Start: 03-19-2025 End: 09-20-2025 Cobalamin (Vitamin B12) [Mass/volume] in Serum or Plasma VITAMIN B12 Lab Routine Ileostomy present (HCC) Expected: 03/19/2025 (Approximate), Expires: 09/20/2025 [facility] Comment on above: Expected: 03/19/2025 (Approximate), Expi res: 09/20/2025 Start: 03-19-2025 End: 09-20-2025 Comprehensive metabolic 2000 panel - Serum or Plasma COMPREHENSIVE METABOLIC PANEL Lab Routine Hypothyroidism, unspecified type Primary hypertension Gastroesophageal reflux disease, unspecified whether esophagitis present Ileostomy present (HCC) Expected: 03/19/2025 (Approximate), Expires: 09/20/2025 [facility] Comment on above: Expected: 03/19/2025 (Approximate), Expi res: 09/20/2025 Start: 03-19-2025 End: 09-20-2025 Hemoglobin A1c in Blood HEMOGLOBIN A1C Lab Routine Ileostomy present (HCC) Expected: 03/19/2025 (Approximate), Expires: 09/20/2025 [facility] Comment on above: Expected: 03/19/2025 (Approximate), Expi res: 09/20/2025 Start: 03-19-2025 End: 09-20-2025 Magnesium [Mass/volume] in Serum or Plasma MAGNESIUM Lab Routine Gastroesophageal reflux disease, unspecified whether esophagitis present Ileostomy present (HCC) Expected: 03/19/2025 (Approximate), Expires: 09/20/2025 [facility] Comment on above: Expected: 03/19/2025 (Approximate), Expi res: 09/20/2025 Start: 03-19-2025 End: 09-20-2025 TSH W/REFLEX FT4 TSH W/REFLEX FT4 Lab Routine Hypothyroidism, unspecified type Primary hypertension Ileostomy present (HCC) Expected: 03/19/2025 (Approximate), Expires: 09/20/2025 [facility] Comment on above: Expected: 03/19/2025 (Approximate), Expi res: 09/20/2025 Start: 03-07-2025 End: 03-07-2025 ambulatory Hematology/Oncology Comment on above: CBC/CMP(S)(PORT)/OV TODAY* 6 MO OV(PORT)/LABS E RUTHANN* Start: 01-30-2025 End: 01-30-2025 Patient encounter procedure 01/30/2025 2:15 PM EDT Office Visit Pulmonary Medicine [address] [place] [address] Chrissy Moser MD [address] [place] [address] 6 mo follow up Pulmonary Medicine Comment on above: 6 mo follow up Start: 12-19-2024 BP Controlled (<130/80) BP Controlled (<130/80) [facility] in Start: 12-18-2024 End: 12-18-2024 Patient encounter procedure 12/18/2024 11:00 AM EDT Office Visit [facility] Ophthalmology [address] [facility] [place] [address] Sen Walton MD [address] [place], [place] [id number] Return in about 6 months (around 08/29/2024). Ophthalmology Comment on above: Return in about 6 months (around 024). Start: 12-11-2024 End: 12-11-2024 Patient encounter procedure 12/11/2024 10:45 AM EDT Office Visit [facility] Ophthalmology [address] [facility] [place] [address] Sen Walton MD [address] [place], [place] [id number] Return in about 6 months (around 08/29/2024). Ophthalmology Comment on above: Return in about 6 months (around 024). Start: 12-05-2024 End: 12-05-2024 ambulatory 12/05/2024 2:00 PM EDT Infusion Center Hematology/Oncology [address] [place] [address] Wstr, Lab/Port Jef [facility] [address] [place] [id number] 3MO PORT FLUSH* Hematology/Oncology Comment on above: 3MO PORT FLUSH* Start: 12-04-2024 End: 12-04-2024 Patient encounter procedure 12/04/2024 10:45 AM EDT Office Visit [facility] Op[facility] [address] [place] [address] Sen Walton MD [address] [place] [address] Return in about 6 months (around 08/29/2024). Ophthalmology Comment on above: Return in about 6 months (around 024). Start: 10-06-2024 End: 10-06-2024 Patient encounter procedure 10/06/2024 9:00 AM EST Office Visit Internal Medicine [place] [address] [place] [address] Lidia Lopez MD [address] [place] [address] ADD follow up Internal Medicine [place] Comment on above: ADD follow up Start: 09-29-2024 Annual PCP Team Chronic Disease Visit Annual PCP Team Chronic Disease Visit [facility] Start: 09-29-2024 BP Controlled (<130/80) BP Controlled (<130/80) [facility] Start: 09-29-2024 Covid-19 Vaccine () Covid-19 Vaccine () [facility] Comment on above: Postponed from 05/21/2023 (Declined at t his time) Start: 09-22-2024 End: 09-22-2024 Patient encounter procedure 09/22/2024 9:40 AM EST Office Visit Internal Medicine [place] [address] [place], [place] [id number] Selina Driscoll APRN.BIG DATA HADOOP DEVELOPER [address] [place] [address] ADD follow up (rescheduled from 10/06) Internal Medicine [place] Comment on above: ADD follow up (rescheduled from 10/06) Start: 09-21-2024 End: 09-21-2024 Patient encounter procedure Internal Medicine [place] Comment on above: ADD follow up (rescheduled from 10/06) 2024 [facility] Z00.00/[employer] AWV Protocol Start: 09-05-2024 End: 09-05-2024 ambulatory Hematology/Oncology Comment on above: CBC/CMP(PORT)/OV TODAY* 6 MO OV(PORT)/LABS E RUTHANN* Start: 09-04-2024 End: 09-04-2024 Patient encounter procedure 09/04/2024 10:45 AM EST Office Visit [facility] Op[facility] [address] [place] [address] Sen Walton MD [address] [place], [place] [id number] Return in about 6 months (around 08/29/2024). Ophthalmology Comment on above: Return in about 6 months (around 024). Start: 09-02-2024 BP Controlled (<130/80) BP Controlled (<130/80) [facility] in Start: 08-25-2024 End: 08-25-2024 Patient encounter procedure 08/25/2024 3:15 PM EST Office Visit [facility] Ophthalmology [address] [address] Sen Walton MD [address] [place], [place] [id number] Return in about 6 months (around 08/29/2024). Ophthalmology Comment on above: Return in about 6 months (around 024). Start: 08-21-2024 End: 11-20-2024 Cobalamin (Vitamin B12) [Mass/volume] in Serum or Plasma VITAMIN B12 Lab Routine High serum vitamin B12 Expected: 08/21/2024, Expires: 11/20/2024 [facility] Comment on above: Expected: 08/21/2024, Expires: Start: 08-21-2024 End: 11-20-2024 Magnesium [Mass/volume] in Serum or Plasma MAGNESIUM Lab Routine Hypomagnesemia Expected: 08/21/2024, Expires: 11/20/2024 [facility] Work Phone: Comment on above: Expected: 08/21/2024, Expires: Start: 07-31-2024 End: 07-31-2024 Patient encounter procedure 07/31/2024 4:00 PM EST Office Visit Cardiology [address] [place] [id number] Sy Matthews MD [address] [facility], [address] [place] [address] 6 mo follow up Cardiology Comment on above: 6 mo follow up Start: 07-27-2024 Covid-19 Vaccine ( season) Covid-19 Vaccine () [facility] Start: 07-26-2024 End: 07-26-2024 Patient encounter procedure 07/26/2024 1:40 PM EST Office Visit OB/Gynecology [address] [place], [place] [id number] Nithya Casiano MD [address] [place] [address] Annual Exam OB/Gynecology Comment on above: Annual Exam Start: 07-25-2024 End: 10-24-2024 Basic metabolic 2000 panel - Serum or Plasma BASIC METABOLIC PANEL Lab Routine Encounter for therapeutic drug monitoring Expected: 07/25/2024, Expires: 10/24/2024 [facility] Work Phone: Comment on above: Expected: 07/25/2024, Expires: Start: 07-22-2024 BP Controlled (<130/80) BP Controlled (<130/80) [facility] Start: 07-21-2024 End: 07-21-2024 Patient encounter procedure 07/21/2024 3:00 PM EDT Office Visit Pulmonary Medicine [address] [place] [address] Martinez Burton APRN.LEAD HOUSEKEEPER [address] [place] [address] 6 mo f/up Pulmonary Medicine Comment on above: 6 mo f/up Start: 07-21-2024 End: 07-21-2024 ambulatory [facility] Comment on above: 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, 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] Start: 07-14-2024 End: 07-14-2024 ambulatory [facility]UL[facility] Comment on above: 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, 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] Start: 07-14-2024 End: 07-14-2024 Patient encounter procedure Vasculary Surgery Comment on above: Primary hypertension [I10] 6 mo f/up Start: 07-06-2024 End: 07-06-2024 Patient encounter procedure 07/06/2024 11:45 AM EDT Office Visit Pulmonary Medicine [address] [place] [address] Chrissy Moser MD [address] [place] [address] 6 mo f/up Pulmonary Medicine Comment on above: 6 mo f/up Start: 07-06-2024 End: 07-06-2024 ambulatory [facility]UL[facility] LAB [facility] Comment on above: 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, 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] Start: 06-22-2024 End: 06-22-2024 Patient encounter procedure 06/22/2024 11:00 AM EDT Office Visit Vasculary Surgery [address] [place] [address] Pain in both lower extremities [M79.604, M79.605] Vasculary Surgery Comment on above: Pain in both lower extremities [M79.604, M79.605] Start: 06-21-2024 End: 06-21-2024 Patient encounter procedure 06/21/2024 9:30 AM EDT Appointment Mammogram [address] [place] [address] Encounter for screening mammogram for breast cancer [Z12.31] Mammogram Comment on above: Encounter for screening mammogram for br east cancer [Z12.31] Start: 06-18-2024 Mammography Mammogram Screening [facility] Start: 06-18-2024 Screening for malignant neoplasm of breast Mammogram Screening [facility] Start: 06-13-2024 End: 06-13-2024 Patient encounter procedure 06/13/2024 2:40 PM EDT Office Visit Cardiology [address] [place] [address] SOB (shortness of breath) [R06.02] Cardiology Comment on above: SOB (shortness of breath) [R06.02] Start: 06-07-2024 BP Controlled (<130/80) BP Controlled (<130/80) [facility] in Start: 06-01-2024 End: 06-01-2024 ambulatory 06/01/2024 10:30 AM EDT Visit (SP) Office Hematology/Oncology [address] [place] [address] Sg Julien MD [address] [place] [address] AML/C92.01 Hematology/Oncology Comment on above: AML/C92.01 Start: 06-01-2024 End: 06-01-2024 ambulatory 06/01/2024 9:20 AM EDT [facility] Hematology/Oncology [address] [place] [address] AML/C92.01 Hematology/Oncology Comment on above: AML/C92.01 Start: 05-29-2024 End: 05-29-2024 Patient encounter procedure 05/29/2024 10:05 AM EDT Appointment Radiology [address] [place] [id number] Screening for osteoporosis [Z13.820] Radiology Comment on above: Screening for osteoporosis [Z13.820] Start: 05-21-2024 Covid-19 Vaccine ( season) Covid-19 Vaccine () [facility] Start: 05-21-2024 Influenza vaccination [facility] (#[facility] Start: 03-29-2024 End: 03-29-2024 Patient encounter procedure 03/29/2024 11:00 AM EDT Office Visit Internal Medicine Luis Fernando [address] [place], [place] [id number] Param Vizcaino APRN.LEAD HOUSEKEEPER [address] [place] [address] 6 month follow up Internal Medicine [place] Comment on above: 6 month follow up Start: 03-15-2024 BP CONTROLLED (<130/80) BP CONTROLLED (<130/80) [facility] in Start: 03-06-2024 End: 03-06-2024 ambulatory Hematology/Oncology Comment on above: CBC/CMP(PORT)* CBC/CMP/6MO* Start: 03-03-2024 BP CONTROLLED (<130/80) BP CONTROLLED (<130/80) [facility] Start: 03-03-2024 Hemoglobin A1c measurement HbA1C [facility] Start: 02-28-2024 End: 02-28-2024 Patient encounter procedure 02/28/2024 12:45 PM EDT Office Visit [facility] Op[facility]mology [address] [place] [address] Sen Walton MD [address] [place], [place] [id number] 6 Month F/U Ophthalmology Comment on above: 6 Month F/U Start: 01-07-2024 ANNUAL PCP TEAM CHRONIC DISEASE VISIT ANNUAL PCP TEAM CHRONIC DISEASE VISIT [facility] Start: 01-07-2024 COVID-19 VACCINE (3 - Moderna risk series) COVID-19 VACCINE (3 - Moderna risk series) [facility] Comment on above: Postponed from 09/15/2022 (Declined at t his time) Start: 01-07-2024 COVID-19 VACCINE (4 - Booster for Moderna series) COVID-19 VACCINE (4 - Booster for Moderna series) [facility] Comment on above: Postponed from 11/10/2022 (Declined at t his time) Start: 01-07-2024 COVID-19 VACCINE (4 - Moderna risk series) COVID-19 VACCINE (4 - Moderna risk series) [facility] Comment on above: Postponed from 11/10/2022 (Declined at t his time) Start: 01-07-2024 DEPRESSION ASSESSMENT DEPRESSION ASSESSMENT [facility] Comment on above: Postponed from 09/20/2022 (Declined at t his time) Start: 12-29-2023 Hepatitis B screening URINE ALBUMIN:CREATININE RATIO [facility] Start: 12-04-2023 BP CONTROLLED (<130/80) BP CONTROLLED (<130/80) [facility] Start: 11-18-2023 End: 02-17-2024 Folate [Mass/volume] in Serum or Plasma FOLATE SERUM Lab Routine Neuropathy Expected: 11/18/2023, Expires: 02/17/2024 [facility] Work Phone: Comment on above: Expected: 11/18/2023, Expires: Start: 09-20-2023 Advance Directive Discussion Advance Directive Discussion [facility] Start: 09-20-2023 Behavioral Health Screening Behavioral Health Screening [facility] Start: 09-09-2023 BP CONTROLLED (<130/80) BP CONTROLLED (<130/80) [facility] Start: 09-02-2023 End: 12-02-2023 25-hydroxyvitamin D3 [Mass/volume] in Serum or Plasma VITAMIN D 25 HYDROXY Lab Routine Vitamin D deficiency Expected: 09/02/2023, Expires: 12/02/2023 [facility] Work Phone: Comment on above: Expected: 09/02/2023, Expires: 4 Start: 09-02-2023 End: 12-02-2023 CBC W Auto Differential panel - Blood CBC + DIFF Lab Routine Encounter for therapeutic drug monitoring Expected: 09/02/2023, Expires: 12/02/2023 [facility] Work Phone: Comment on above: Expected: 09/02/2023, Expires: 4 Start: 09-02-2023 End: 12-02-2023 Cobalamin (Vitamin B12) [Mass/volume] in Serum or Plasma VITAMIN B12 BLOOD Lab Routine B12 deficiency Encounter for therapeutic drug monitoring Expected: 09/02/2023, Expires: 12/02/2023 [facility] Work Phone: Comment on above: Expected: 09/02/2023, Expires: 4 Start: 09-02-2023 End: 12-02-2023 Comprehensive metabolic 2000 panel - Serum or Plasma COMP METABOLIC PANEL Lab Routine Encounter for therapeutic drug monitoring Expected: 09/02/2023, Expires: 12/02/2023 [facility] Work Phone: Comment on above: Expected: 09/02/2023, Expires: Start: 09-02-2023 End: 12-02-2023 Hemoglobin A1c in Blood HGB A1C Lab Routine Type 2 diabetes mellitus with microalbuminuria, without long-term current use of insulin (HCC) Expected: 09/02/2023, Expires: 12/02/2023 [facility] Work Phone: Comment on above: Expected: 09/02/2023, Expires: Start: 09-02-2023 End: 12-02-2023 Magnesium [Mass/volume] in Serum or Plasma MAGNESIUM BLD Lab Routine Encounter for therapeutic drug monitoring Expected: 09/02/2023, Expires: 12/02/2023 [facility] Work Phone: Comment on above: Expected: 09/02/2023, Expires: Start: 09-02-2023 End: 12-02-2023 Thyrotropin [Units/volume] in Serum or Plasma TSH BLD Lab Routine Hypothyroidism, unspecified type Encounter for therapeutic drug monitoring Expected: 09/02/2023, Expires: 12/02/2023 [facility] Work Phone: Comment on above: Expected: 09/02/2023, Expires: Start: 09-02-2023 End: 12-02-2023 Thyroxine (T4) free [Mass/volume] in Serum or Plasma T4 FREE/FREE THYROX Lab Routine Hypothyroidism, unspecified type Expected: 09/02/2023, Expires: 12/02/2023 [facility] Work Phone: Comment on above: Expected: 09/02/2023, Expires: Start: 09-02-2023 End: 12-02-2023 Triiodothyronine (T3) Free [Mass/volume] in Serum or Plasma T3 FREE BLD Lab Routine Hypothyroidism, unspecified type Expected: 09/02/2023, Expires: 12/02/2023 [facility] Work Phone: Comment on above: Expected: 09/02/2023, Expires: 4 Start: 06-30-2023 Screening for osteoporosis Bone Density Screening [facility] Start: 06-29-2023 Hemoglobin A1c measurement HbA1C [facility] Start: 06-29-2023 Hemoglobin A1c/Hemoglobin.total in Blood HBA1C [facility] Start: 06-19-2023 BP CONTROLLED (<130/80) BP CONTROLLED (<130/80) [facility] in Start: 06-17-2023 Mammography [facility] Start: 06-11-2023 BP CONTROLLED (<130/80) BP CONTROLLED (<130/80) [facility] Start: 06-08-2023 BP CONTROLLED (<130/80) BP CONTROLLED (<130/80) [facility] Start: 06-04-2023 BP CONTROLLED (<130/80) BP CONTROLLED (<130/80) [facility] Start: 06-01-2023 Adult depression screening assessment DEPRESSION SCREENING [facility] Start: 05-21-2023 Covid-19 Vaccine ( season) Covid-19 Vaccine () [facility] Start: 05-21-2023 Influenza vaccination [facility] Start: 05-06-2023 ANNUAL PCP TEAM CHRONIC DISEASE VISIT ANNUAL PCP TEAM CHRONIC DISEASE VISIT [facility] Start: 05-06-2023 BP CONTROLLED (<130/80) BP CONTROLLED (<130/80) [facility] Start: 05-04-2023 Hepatitis B surface antibody level LDL CHOLESTEROL [facility] Start: 05-04-2023 SERUM CREATININE SERUM CREATININE [facility] Start: 04-24-2023 BP CONTROLLED (<130/80) BP CONTROLLED (<130/80) [facility] Start: 04-03-2023 SERUM CREATININE SERUM CREATININE [facility] Start: 03-30-2023 Glaucoma screening Dilated Retinal Exam [facility] Start: 03-30-2023 Hepatitis C antibody, confirmatory test DILATED RETINAL EXAM [facility] Start: 02-10-2023 BP CONTROLLED (<130/80) BP CONTROLLED (<130/80) [facility] Start: 02-02-2023 BP CONTROLLED (<130/80) BP CONTROLLED (<130/80) [facility] Start: 02-02-2023 SERUM CREATININE SERUM CREATININE [facility] Start: 02-01-2023 Adult depression screening assessment DEPRESSION SCREENING [facility] Start: 01-20-2023 SERUM CREATININE SERUM CREATININE [facility] Start: 01-18-2023 End: 02-10-2023 Hemoglobin A1c/Hemoglobin.total in Blood HGB A1C Lab Routine Type 2 diabetes mellitus with microalbuminuria, without long-term current use of insulin (HCC) Expected: 01/18/2023 (Approximate), Expires: 02/10/2023 [facility] Work Phone: Comment on above: Expected: 01/18/2023 (Approximate), Expi res: 02/10/2023 Start: 01-18-2023 End: 02-10-2023 Thyrotropin [Units/volume] in Serum or Plasma TSH BLD Lab Routine Acquired hypothyroidism Expected: 01/18/2023 (Approximate), Expires: 02/10/2023 [facility] Work Phone: Comment on above: Expected: 01/18/2023 (Approximate), Expi res: 02/10/2023 Start: 01-18-2023 End: 02-10-2023 VITAMIN B12 BLOOD VITAMIN B12 BLOOD Lab Routine Hair thinning Expected: 01/18/2023 (Approximate), Expires: 02/10/2023 [facility] Work Phone: Comment on above: Expected: 01/18/2023 (Approximate), Expi res: 02/10/2023 Start: 01-18-2023 End: 02-10-2023 VITAMIN D 25 HYDROXY VITAMIN D 25 HYDROXY Lab Routine Vitamin D deficiency Expected: 01/18/2023 (Approximate), Expires: 02/10/2023 [facility] Work Phone: Comment on above: Expected: 01/18/2023 (Approximate), Expi res: 02/10/2023 Start: 12-08-2022 End: 02-07-2023 25-hydroxyvitamin D3 [Mass/volume] in Serum or Plasma VITAMIN D 25 HYDROXY Lab Routine Vitamin D deficiency Encounter for therapeutic drug monitoring Expected: 12/08/2022, Expires: 02/07/2023 [facility] Work Phone: Comment on above: Expected: 12/08/2022, Expires: 3 Start: 12-08-2022 End: 02-07-2023 ALBUMIN/CREAT RATIO RND UR ALBUMIN/CREAT RATIO RND UR Lab Routine Type 2 diabetes mellitus with microalbuminuria, without long-term current use of insulin ([facility]) Encounter for therapeutic drug monitoring Expected: 12/08/2022, Expires: 02/07/2023 [facility] Work Phone: Comment on above: Expected: 12/08/2022, Expires: 3 Start: 12-08-2022 End: 02-07-2023 CBC W Auto Differential panel - Blood CBC + DIFF Lab Routine Encounter for therapeutic drug monitoring Expected: 12/08/2022, Expires: 02/07/2023 [facility] Work Phone: Comment on above: Expected: 12/08/2022, Expires: 3 Start: 12-08-2022 End: 02-07-2023 Cobalamin (Vitamin B12) [Mass/volume] in Serum or Plasma VITAMIN B12 BLOOD Lab Routine B12 deficiency Encounter for therapeutic drug monitoring Expected: 12/08/2022, Expires: 02/07/2023 [facility] Work Phone: Comment on above: Expected: 12/08/2022, Expires: 3 Start: 12-08-2022 End: 02-07-2023 Comprehensive metabolic 2000 panel - Serum or Plasma COMP METABOLIC PANEL Lab Routine Elevated liver function tests Encounter for therapeutic drug monitoring Expected: 12/08/2022, Expires: 02/07/2023 [facility] Work Phone: Comment on above: Expected: 12/08/2022, Expires: 3 Start: 12-08-2022 End: 02-07-2023 Hemoglobin A1c in Blood HGB A1C Lab Routine Type 2 diabetes mellitus with microalbuminuria, without long-term current use of insulin (HCC) Encounter for therapeutic drug monitoring Expected: 12/08/2022, Expires: 02/07/2023 [facility] Work Phone: Comment on above: Expected: 12/08/2022, Expires: 3 Start: 12-08-2022 End: 02-07-2023 Magnesium [Mass/volume] in Serum or Plasma MAGNESIUM BLD Lab Routine Encounter for therapeutic drug monitoring Expected: 12/08/2022, Expires: 02/07/2023 [facility] Work Phone: Comment on above: Expected: 12/08/2022, Expires: 3 Start: 12-08-2022 End: 02-07-2023 Thyrotropin [Units/volume] in Serum or Plasma TSH BLD Lab Routine Hypothyroidism, unspecified type Encounter for therapeutic drug monitoring Expected: 12/08/2022, Expires: 02/07/2023 [facility] Work Phone: Comment on above: Expected: 12/08/2022, Expires: 3 Start: 12-08-2022 End: 02-07-2023 Thyroxine (T4) free [Mass/volume] in Serum or Plasma T4 FREE/FREE THYROX Lab Routine Hypothyroidism, unspecified type Encounter for therapeutic drug monitoring Expected: 12/08/2022, Expires: 02/07/2023 [facility] Work Phone: Comment on above: Expected: 12/08/2022, Expires: 3 Start: 12-08-2022 End: 02-07-2023 Triiodothyronine (T3) Free [Mass/volume] in Serum or Plasma T3 FREE BLD Lab Routine Hypothyroidism, unspecified type Encounter for therapeutic drug monitoring Expected: 12/08/2022, Expires: 02/07/2023 [facility] Work Phone: Comment on above: Expected: 12/08/2022, Expires: 3 Start: 12-02-2022 BP CONTROLLED (<130/80) BP CONTROLLED (<130/80) [facility] Start: 12-01-2022 SERUM CREATININE SERUM CREATININE [facility] Start: 11-04-2022 Hemoglobin A1c/Hemoglobin.total in Blood HBA1C [facility] Start: 09-21-2022 SHINGRIX VACCINE (1 of 2) SHINGRIX VACCINE (1 of 2) [facility] Comment on above: Postponed from 2001 (Insurance Cov erage) Postponed from 02/23 (Insurance Coverage) Start: 09-20-2022 ADVANCE DIRECTIVE DISCUSSION ADVANCE DIRECTIVE DISCUSSION [facility] Start: 09-20-2022 DEPRESSION ASSESSMENT DEPRESSION ASSESSMENT [facility] Start: 09-15-2022 COVID-19 VACCINE (3 - Moderna risk series) COVID-19 VACCINE (3 - Moderna risk series) [facility] Start: 09-12-2022 Adult depression screening assessment DEPRESSION SCREENING [facility] Start: 09-09-2022 End: 11-09-2022 CBC W Auto Differential panel - Blood CBC + DIFF Lab STAT 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) History of DVT (deep vein thrombosis) Expected: 09/09/2022, Expires: 11/09/2022 [facility] Work Phone: Comment on above: Expected: 09/09/2022, Expires: 3 Start: 09-09-2022 End: 11-09-2022 Comprehensive metabolic 2000 panel - Serum or Plasma COMP METABOLIC PANEL Lab STAT 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) History of DVT (deep vein thrombosis) Expected: 09/09/2022, Expires: 11/09/2022 [facility] Work Phone: Comment on above: Expected: 09/09/2022, Expires: 3 Start: 09-03-2022 Hemoglobin A1c/Hemoglobin.total in Blood HBA1C [facility] Start: 08-24-2022 Patient discharge [facility] Work Phone: Start: 08-23-2022 Admission procedure [facility] Work Phone: Start: 08-23-2022 Venous catheter care management [facility] Work Phone: Start: 08-23-2022 Assessment of risk of venous thromboembolism [facility] Work Phone: Start: 08-23-2022 Care regimes management [facility] Work Phone: Start: 08-23-2022 Fall prevention [facility] Work Phone: Start: 08-23-2022 Incentive spirometry [facility] Work Phone: Start: 08-23-2022 Inhalation therapy procedure [facility] Work Phone: Start: 08-23-2022 Insertion of catheter into peripheral vein [facility] Work Phone: Start: 08-23-2022 Introduction of urinary catheter [facility] Work Phone: Start: 08-23-2022 Measuring intake and output [facility] Work Phone: Start: 08-23-2022 Notification of physician [facility] Work Phone: Start: 08-23-2022 Oxygen therapy [facility] Work Phone: Start: 08-23-2022 Providing care according to standard [facility] Work Phone: Start: 08-23-2022 Provision of activity privileges [facility] Work Phone: Start: 08-23-2022 Referral to service [facility] Work Phone: Start: 08-23-2022 End: 08-23-2022 [facility] Work Phone: Start: 08-23-2022 Legionella pneumophila Ag [Presence] in Urine [facility] Work Phone: Start: 08-23-2022 Streptococcus pneumoniae antigen assay [facility] Work Phone: Start: 08-23-2022 Admission procedure [facility] Work Phone: Start: 08-23-2022 Verification routine [facility] Work Phone: Start: 08-20-2022 End: 10-20-2022 Bacteria identified in Unspecified specimen by Respiratory culture RESP CULTURE + STAIN Microbiology Routine Bronchiectasis without complication (HCC) Expected: 08/20/2022, Expires: 10/20/2022 [facility] Work Phone: Comment on above: Expected: 08/20/2022, Expires: 3 Start: 08-20-2022 End: 10-20-2022 Microorganism identified in Unspecified specimen by Culture AFB CULT + STAIN Microbiology Routine Bronchiectasis without complication (HCC) Expected: 08/20/2022, Expires: 10/20/2022 [facility] Work Phone: Comment on above: Expected: 08/20/2022, Expires: 3 Start: 08-12-2022 Venous catheter care management [facility] Work Phone: Start: 06-30-2022 Hepatitis B screening URINE ALBUMIN:CREATININE RATIO [facility] Start: 06-21-2022 End: 08-21-2022 COPPER BLOOD COPPER BLOOD Lab Routine Macrocytosis Expected: 06/21/2022, Expires: 08/21/2022 [facility] Work Phone: Comment on above: Expected: 06/21/2022, Expires: 2 Start: 06-21-2022 End: 08-21-2022 RBC FOLATE RBC FOLATE Lab Routine Macrocytosis Expected: 06/21/2022, Expires: 08/21/2022 [facility] Work Phone: Comment on above: Expected: 06/21/2022, Expires: 2 Start: 06-21-2022 End: 08-21-2022 Selenium [Mass/volume] in Blood SELENIUM BLOOD Lab Routine Macrocytosis Expected: 06/21/2022, Expires: 08/21/2022 [facility] Work Phone: Comment on above: Expected: 06/21/2022, Expires: 2 Start: 06-21-2022 End: 08-21-2022 VITAMIN B1 (THIAMINE), WHOLE BLOOD VITAMIN B1 (THIAMINE), WHOLE BLOOD Lab Routine Macrocytosis Expected: 06/21/2022, Expires: 08/21/2022 [facility] Work Phone: Comment on above: Expected: 06/21/2022, Expires: 2 Start: 06-21-2022 End: 08-21-2022 Zinc [Mass/volume] in Serum or Plasma ZINC BLD Lab Routine Macrocytosis Expected: 06/21/2022, Expires: 08/21/2022 [facility] Work Phone: Comment on above: Expected: 06/21/2022, Expires: 2 Start: 06-18-2022 Venous catheter care management [facility] Work Phone: Start: 06-11-2022 End: 08-11-2022 Magnesium [Mass/volume] in Serum or Plasma MAGNESIUM BLD Lab Routine Acute myeloid leukemia in remission (HCC) Expected: 06/11/2022, Expires: 08/11/2022 [facility] Work Phone: Comment on above: Expected: 06/11/2022, Expires: 2 Start: 06-04-2022 End: 08-04-2022 CBC W Auto Differential panel - Blood [facility] Work Phone: Comment on above: Expected: 06/04/2022, Expires: 2 Start: 06-04-2022 End: 08-04-2022 Comprehensive metabolic 2000 panel - Serum or Plasma [facility] Work Phone: Comment on above: Expected: 06/04/2022, Expires: 2 Start: 06-04-2022 End: 08-04-2022 Magnesium [Mass/volume] in Serum or Plasma MAGNESIUM BLD Lab Routine Electrolyte and fluid disorder Expected: 06/04/2022, Expires: 08/04/2022 [facility] Work Phone: Comment on above: Expected: 06/04/2022, Expires: 2 Start: 06-04-2022 End: 08-04-2022 Natriuretic peptide.B prohormone N-Terminal [Mass/volume] in Serum or Plasma [facility] Work Phone: Comment on above: Expected: 06/04/2022, Expires: 2 Start: 05-21-2022 Influenza vaccination INFLUENZA (#1) [facility] Start: 05-19-2022 Mammography MAMMOGRAM [facility] Start: 05-15-2022 Venous catheter care management [facility] Work Phone: Start: 05-15-2022 [facility] Work Phone: Start: 05-13-2022 ANNUAL PCP TEAM CHRONIC DISEASE VISIT ANNUAL PCP TEAM CHRONIC DISEASE VISIT [facility] Start: 05-13-2022 BP CONTROLLED (<130/80) BP CONTROLLED (<130/80) [facility] Start: 04-24-2022 End: 06-24-2022 Magnesium [Mass/volume] in Serum or Plasma MAGNESIUM BLD Lab Routine Gastroesophageal reflux disease, unspecified whether esophagitis present Expected: 04/24/2022, Expires: 06/24/2022 [facility] Work Phone: Comment on above: Expected: 04/24/2022, Expires: 2 Start: 04-17-2022 End: 06-17-2022 25-hydroxyvitamin D3 [Mass/volume] in Serum or Plasma VITAMIN D 25 HYDROXY Lab Routine Vitamin D deficiency Expected: 04/17/2022 (Approximate), Expires: 06/17/2022 [facility] Work Phone: Comment on above: Expected: 04/17/2022 (Approximate), Expi res: 06/17/2022 Start: 04-17-2022 End: 06-17-2022 Basic metabolic 2000 panel - Serum or Plasma BASIC METABOLIC PNL Lab Routine Vitamin D deficiency Type 2 diabetes mellitus with microalbuminuria, without long-term current use of insulin (HCC) Expected: 04/17/2022 (Approximate), Expires: 06/17/2022 [facility] Work Phone: Comment on above: Expected: 04/17/2022 (Approximate), Expi res: 06/17/2022 Start: 04-17-2022 End: 06-17-2022 Thyrotropin [Units/volume] in Serum or Plasma TSH BLD Lab Routine Acquired hypothyroidism Expected: 04/17/2022 (Approximate), Expires: 06/17/2022 [facility] Work Phone: Comment on above: Expected: 04/17/2022 (Approximate), Expi res: 06/17/2022 Start: 04-17-2022 End: 06-17-2022 Thyroxine (T4) free [Mass/volume] in Serum or Plasma T4 FREE/FREE THYROX Lab Routine Acquired hypothyroidism Expected: 04/17/2022 (Approximate), Expires: 06/17/2022 [facility] Work Phone: Comment on above: Expected: 04/17/2022 (Approximate), Expi res: 06/17/2022 Start: 04-17-2022 End: 06-17-2022 Triiodothyronine (T3) Free [Mass/volume] in Serum or Plasma T3 FREE BLD Lab Routine Acquired hypothyroidism Expected: 04/17/2022 (Approximate), Expires: 06/17/2022 [facility] Work Phone: Comment on above: Expected: 04/17/2022 (Approximate), Expi res: 06/17/2022 Start: 04-03-2022 Hepatitis B surface antibody level LDL CHOLESTEROL [facility] Start: 03-21-2022 3 comp foot exam completed DIABETIC FOOT EXAM [facility] Start: 03-21-2022 ANNUAL PCP TEAM CHRONIC DISEASE VISIT ANNUAL PCP TEAM CHRONIC DISEASE VISIT [facility] Start: 03-21-2022 Diabetic foot examination Diabetic Foot Exam [facility] Start: 03-04-2022 End: 01-29-2023 Hemoglobin A1c/Hemoglobin.total in Blood HGB A1C Lab Routine Type 2 diabetes mellitus with microalbuminuria, without long-term current use of insulin (HCC) Expected: 03/04/2022 (Approximate), Expires: 01/29/2023 [facility] Work Phone: Comment on above: Expected: 03/04/2022 (Approximate), Expi res: 01/29/2023 Start: 03-04-2022 End: 01-29-2023 LIPID PANEL BASIC LIPID PANEL BASIC Lab Routine Type 2 diabetes mellitus with microalbuminuria, without long-term current use of insulin (HCC) Expected: 03/04/2022 (Approximate), Expires: 01/29/2023 [facility] Work Phone: Comment on above: Expected: 03/04/2022 (Approximate), Expi res: 01/29/2023 Start: 03-04-2022 End: 01-29-2023 Thyrotropin [Units/volume] in Serum or Plasma [facility] Work Phone: Comment on above: Expected: 03/04/2022 (Approximate), Expi res: 01/29/2023 Start: 03-04-2022 End: 01-29-2023 VITAMIN B12 BLOOD VITAMIN B12 BLOOD Lab Routine Hair thinning Expected: 03/04/2022 (Approximate), Expires: 01/29/2023 [facility] Work Phone: Comment on above: Expected: 03/04/2022 (Approximate), Expi res: 01/29/2023 Start: 03-04-2022 End: 05-04-2022 VITAMIN D 25 HYDROXY VITAMIN D 25 HYDROXY Lab Routine Vitamin D deficiency Expected: 03/04/2022 (Approximate), Expires: 05/04/2022 [facility] Work Phone: Comment on above: Expected: 03/04/2022 (Approximate), Expi res: 05/04/2022 Start: 02-26-2022 [facility] Work Phone: Start: 02-02-2022 End: 04-04-2022 CBC W Auto Differential panel - Blood [facility] Work Phone: Comment on above: Expected: 02/02/2022, Expires: 2 Start: 02-02-2022 End: 04-04-2022 Comprehensive metabolic 2000 panel - Serum or Plasma [facility] Work Phone: Comment on above: Expected: 02/02/2022, Expires: 2 Start: 01-16-2022 End: 01-08-2023 Basic metabolic 2000 panel - Serum or Plasma BASIC METABOLIC PNL Lab Routine PEPE (acute kidney injury) (HCC) Expected: 01/16/2022 (Approximate), Expires: 01/08/2023 [facility] Work Phone: Comment on above: Expected: 01/16/2022 (Approximate), Expi res: 01/08/2023 Start: 01-16-2022 End: 01-08-2023 Magnesium [Mass/volume] in Serum or Plasma MAGNESIUM BLD Lab Routine PEPE (acute kidney injury) (HCC) Expected: 01/16/2022 (Approximate), Expires: 01/08/2023 [facility] Work Phone: Comment on above: Expected: 01/16/2022 (Approximate), Expi res: 01/08/2023 Start: 01-16-2022 End: 01-08-2023 Phosphate [Mass/volume] in Serum or Plasma PHOSPHORUS INORGANIC Lab Routine PEPE (acute kidney injury) (HCC) Expected: 01/16/2022 (Approximate), Expires: 01/08/2023 [facility] Work Phone: Comment on above: Expected: 01/16/2022 (Approximate), Expi res: 01/08/2023 Start: 01-15-2022 Venous catheter care management [facility] Work Phone: Start: 01-15-2022 [facility] Work Phone: Start: 01-15-2022 Patient discharge [facility] Work Phone: Start: 01-15-2022 [facility] Work Phone: Start: 01-13-2022 [facility] Work Phone: Start: 01-12-2022 Referral to service [facility] Work Phone: Start: 01-12-2022 Enteric precautions [facility] Work Phone: Start: 01-11-2022 Ambulation without limitation [facility] Work Phone: Start: 01-11-2022 Assessment of risk of venous thromboembolism [facility] Work Phone: Start: 01-11-2022 Insertion of catheter into peripheral vein [facility] Work Phone: Start: 01-11-2022 Measuring intake and output [facility] Work Phone: Start: 01-11-2022 Providing care according to standard [facility] Work Phone: Start: 01-11-2022 Referral to occupational therapist [facility] Work Phone: Start: 01-11-2022 Referral to service [facility] Work Phone: Start: 01-11-2022 [facility] Work Phone: Start: 01-11-2022 Following clinical pathway protocol [facility] Work Phone: Start: 01-11-2022 Admission procedure [facility] Work Phone: Start: 01-08-2022 Ova and Parasites Ova and Parasites [facility] Work Phone: Start: 01-02-2022 End: 03-04-2022 RBC FOLATE RBC FOLATE Lab Routine Acute myeloid leukemia in remission (HCC) Elevated MCV Expected: 01/02/2022, Expires: 03/04/2022 [facility] Work Phone: Comment on above: Expected: 01/02/2022, Expires: 2 Start: 01-02-2022 End: 03-04-2022 VITAMIN B12 BLOOD VITAMIN B12 BLOOD Lab Routine Acute myeloid leukemia in remission (HCC) Elevated MCV Expected: 01/02/2022, Expires: 03/04/2022 [facility] Work Phone: Comment on above: Expected: 01/02/2022, Expires: 2 Start: 09-20-2021 ADVANCE DIRECTIVE DISCUSSION ADVANCE DIRECTIVE DISCUSSION [facility] Start: 09-20-2021 DEPRESSION ASSESSMENT DEPRESSION ASSESSMENT [facility] Start: 08-21-2021 COVID-19 VACCINE (3 - Moderna risk 4-dose series) COVID-19 VACCINE (3 - Moderna risk 4-dose series) [facility] Start: 08-21-2021 COVID-19 VACCINE (3 - Moderna risk series) COVID-19 VACCINE (3 - Moderna risk series) [facility] Start: 08-06-2021 Hemoglobin A1c/Hemoglobin.total in Blood HBA1C [facility] Start: 05-01-2021 Hepatitis C antibody, confirmatory test DILATED RETINAL EXAM [facility] Start: 05-21-2020 Influenza vaccination given Sequential Influenza Vaccine (#1) [facility] Start: 05-08-2020 FECAL OCCULT BLOOD FECAL OCCULT BLOOD [facility] Start: 05-08-2020 Screening for malignant neoplasm of colon Fecal Occult Blood [facility] Start: 07-26-2019 Screening for malignant neoplasm of cervix Cervical Cancer Screening [facility] Start: 05-21-2018 Influenza vaccination SEQUENTIAL INFLUENZA VACCINE (#1) [facility] Start: 02-24-2016 Fall risk assessment Steadi Fall Risk Assessment [facility] Start: 02-24-2016 Pneumococcal vaccination PNEUMOCOCCAL VACCINE AGE 65+ (1 of 2 - PCV13) [facility] Start: 2001 Administration of herpes zoster vaccine Zoster Vaccines (1 of 2) [facility] Start: 2001 Screening for malignant neoplasm of colon [facility] Start: 2001 SHINGRIX VACCINE (1 of 2) SHINGRIX VACCINE (1 of 2) [facility] Start: 2001 ZOSTER VACCINES (1 of 2) ZOSTER VACCINES (1 of 2) [facility] Start: 02-24-1996 COLOGUARD (FIT-DNA) COLOGUARD (FIT-DNA) [facility] Start: 02-24-[address] COLONOGRAPHY [facility] Start: 02-24-1996 Screening for malignant neoplasm of colon [facility] Start: 02-24-1996 SIGMOIDOSCOPY SIGMOIDOSCOPY [facility] Start: 1981 Zoledronic acid therapy ALPHA-1 ANTITRYPSIN DEFICIENCY SCREENING [facility] Start: 1970 SHINGRIX VACCINE (1 of 2) SHINGRIX VACCINE (1 of 2) [facility] Start: 1969 Anxiety Screening Anxiety Screening [facility] Start: 1969 Depression Screening Depression Screening [facility] Start: 1969 Hepatitis C antibody, confirmatory test Hepatitis C Screening [facility] Start: 1967 COVID-19 Vaccine (1 of 2) COVID-19 Vaccine (1 of 2) [facility] Start: 1963 Adolescent depression screening assessment Depression Screening (PHQ9) [facility] Start: 1954 History and physical examination, annual for health maintenance Wellness Visit [facility] Start: 1951 Fall risk assessment Falls Risk Assessment [facility] Start: 1951 Screening mammography Mammogram [facility] Start: 1951 HEPATITIS C SCREENING HEPATITIS C SCREENING [facility] Start: 1951 Screening colonoscopy COLONOSCOPY [facility] Start: 1951 End: 1951 Screening for osteoporosis DEXA SCAN [facility] End: 09-17-2018 12 lead ECG [facility] Comment on above: Once for 1 Occurrences starting 09/17/20 18 until 09/17/2018 25-hydroxyvitamin D3 [Mass/volume] in Serum or Plasma VITAMIN D 25 HYDROXY Lab Routine Vitamin D deficiency 03/04/2022 12:03 PM [facility] Work Phone: 25-hydroxyvitamin D3 [Mass/volume] in Serum or Plasma VITAMIN D 25 HYDROXY Lab Routine Vitamin D deficiency 05/04/2022 11:59 AM [facility] Work Phone: 25-hydroxyvitamin D3 [Mass/volume] in Serum or Plasma VITAMIN D 25 HYDROXY Lab Routine Vitamin D deficiency Encounter for therapeutic drug monitoring 12/28/2022 11:04 AM [facility] Work Phone: 25-hydroxyvitamin D3 [Mass/volume] in Serum or Plasma VITAMIN D 25 HYDROXY Lab Routine Vitamin D deficiency 03/06/2024 1:42 PM [facility] Work Phone: End: 10-30-2024 25-hydroxyvitamin D3 [Mass/volume] in Serum or Plasma VITAMIN D 25 HYDROXY Lab Routine Vitamin D deficiency Every 3 months for 60 Occurrences starting 10/31/2023 until 10/30/2024 [facility] Work Phone: Comment on above: Every 3 months for 60 Occurrences starti ng 10/31/2023 until 10/30/2024 25-hydroxyvitamin D3 [Mass/volume] in Serum or Plasma VITAMIN D 25 HYDROXY Lab Routine Vitamin D deficiency 09/05/2024 10:27 AM EST [facility] ALBUMIN/CREAT RATIO RND UR ALBUMIN/CREAT RATIO RND UR Lab Routine Type 2 diabetes mellitus with microalbuminuria, without long-term current use of insulin (HCC) Encounter for therapeutic drug monitoring 12/28/2022 11:06 AM EDT [facility] Work Phone: Bacteria identified in Sputum by Aerobe culture Sputum Aerobic Culture Microbiology Routine 08/17/2022 10:53 PM [facility] Work Phone: Bacteria identified in Urine by Culture URINE CULTURE Microbiology Routine Dysuria Ordered: 04/24/2022 [facility] Work Phone: Comment on above: Ordered: 04/24/2022 Bacteria identified in Urine by Culture Urine Culture [facility] Work Phone: Bacteria identified in Wound by Culture WOUND CULTURE AND GRAM STAIN Microbiology Routine 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 Dysuria 04/24/2022 3:28 PM EDT [facility] Work Phone: BACTERIAL VAGINOSIS AMPLIFICATION BACTERIAL VAGINOSIS AMPLIFICATION Lab Routine 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 Dysuria [facility] End: 04-28-2025 BD DXA TRABECULAR BONE SCORE (TBS) BD DXA TRABECULAR BONE SCORE (TBS) Radiology Routine Screening for osteoporosis Asymptomatic menopause 1 Occurrences starting 03/29/2024 until 04/28/2025 [facility] Comment on above: 1 Occurrences starting 03/29/2024 until 04/28/2025 RONDA / TRICHOMONA S AMPLIFICATION RONDA / TRICHOMONAS AMPLIFICATION Lab Routine 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 Dysuria 04/24/2022 3:28 PM EDT [facility] Work Phone: CBC W Auto Different ial panel - Blood CBC + DIFF Lab Routine Acute myeloid leukemia in remission (HCC) 05/04/2022 11:59 AM [facility] Work Phone: Cobalamin (Vitamin B 12) [Mass/volume] in Serum or Plasma VITAMIN B12 BLOOD Lab Routine Hair thinning 03/04/2022 12:03 PM [facility] Work Phone: Cobalamin (Vitamin B 12) [Mass/volume] in Serum or Plasma VITAMIN B12 BLOOD Lab Routine Hair thinning 05/04/2022 11:59 AM [facility] Work Phone: End: 10-30-2024 Comprehensive metabolic 2000 panel - Serum or Plasma COMP METABOLIC PANEL Lab Routine Type 2 diabetes mellitus with microalbuminuria, 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) Every 3 months for 60 Occurrences starting 10/31/2023 until 10/30/2024 [facility] Work Phone: Comment on above: Every 3 months for 60 Occurrences starti ng 10/31/2023 until 10/30/2024 End: 01-21-2023 Ct abdomen & pelvis w/o contrast material CT ABD/PEL WO IVCON Radiology Routine Ventral hernia without obstruction or gangrene 1 Occurrences starting 12/22/2021 until 01/21/2023 [facility] Work Phone: Comment on above: 1 Occurrences starting 12/22/2021 until 01/21/2023 End: 08-25-2025 DBT Breast - bilateral screening AUGUST SCREENING W JULIETA Radiology Routine Encounter for gynecological examination (general) (routine) without abnormal findings Encounter for screening mammogram for breast cancer 1 Occurrences starting 07/26/2024 until 08/25/2025 [facility] Work Phone: Comment on above: 1 Occurrences starting 07/26/2024 until 08/25/2025 End: 04-28-2025 DXA Skeletal system.axial Views for bone density DXA-AXIAL SKELETON Radiology Routine Screening for osteoporosis Asymptomatic menopause 1 Occurrences starting 03/29/2024 until 04/28/2025 [facility] Comment on above: 1 Occurrences starting 03/29/2024 until 04/28/2025 End: 06-01-2023 ECG COMPLETE ECG COMPLETE ECG Routine Tachycardia 1 Occurrences starting 06/01/2022 until 06/01/2023 [facility] Work Phone: Comment on above: 1 Occurrences starting 06/01/2022 until 06/01/2023 ECG COMPLETE ECG COMPLETE ECG Routine SVT (supraventricular tachycardia) (HCC) Paroxysmal atrial fibrillation (HCC) Primary hypertension Ordered: 12/20/2023 [facility] Work Phone: Comment on above: Ordered: 12/20/2023 ECG COMPLETE ECG COMPLETE ECG 12/20/2023 11:33 AM EDT [facility] End: 06-04-2023 Echocardiography ECHO Cardiology STAT Acute deep vein thrombosis (DVT) of femoral vein of both lower extremities ([facility]) Dyspnea and respiratory abnormalities 1 Occurrences starting 06/04/2022 until 06/04/2023 [facility] Work Phone: Comment on above: 1 Occurrences starting 06/04/2022 until 06/04/2023 End: 06-02-2025 Echocardiography ECHO Cardiology Routine SOB (shortness of breath) 1 Occurrences starting 06/02/2024 until 06/02/2025 [facility] Work Phone: Comment on above: 1 Occurrences starting 06/02/2024 until 06/02/2025 End: 03-29-2026 Flexible sigmoidoscopy study COLONOSCOPY DIAGNOSTIC Endoscopy Routine Rectal bleeding 1 Occurrences starting 03/29/2025 until 03/29/2026 [facility] Work Phone: Comment on above: 1 Occurrences starting 03/29/2025 until 03/29/2026 Hemoglobin A1c in Blood HGB A1C Lab Routine Type 2 diabetes mellitus with microalbuminuria, without long-term current use of insulin ([facility]) 03/04/2022 12:03 PM [facility] Work Phone: Hemoglobin A1c in Blood HGB A1C Lab Routine Type 2 diabetes mellitus with microalbuminuria, without long-term current use of insulin ([facility]) 05/04/2022 11:59 AM [facility] Work Phone: Hemoglobin A1c in Blood HGB A1C Lab Routine Type 2 diabetes mellitus with microalbuminuria, without long-term current use of insulin ([facility]) Encounter for therapeutic drug monitoring 12/28/2022 11:04 AM [facility] Work Phone: End: 10-30-2024 Hemoglobin A1c in Blood HGB A1C Lab Routine Type 2 diabetes mellitus with microalbuminuria, without long-term current use of insulin ([facility]) ([facility]) Every 3 months for 60 Occurrences starting 10/31/2023 until 10/30/2024 [facility] Work Phone: Comment on above: Every 3 months for 60 Occurrences starti ng 10/31/2023 until 10/30/2024 Hemoglobin A1c in Blood HGB A1C Lab Routine Type 2 diabetes mellitus with microalbuminuria, without long-term current use of insulin ([facility]) 09/05/2024 10:27 AM EST [facility] Work Phone: Hemoglobin A1c in Blood HEMOGLOB IN A1C Lab Routine Ileostomy present ([facility]) 03/07/2025 10:31 AM EDT [facility] Work Phone: Lipid 1996 panel - S kiley or Plasma LIPID PANEL BASIC Lab Routine Type 2 diabetes mellitus with microalbuminuria, without long-term current use of insulin ([facility]) 05/04/2022 11:59 AM EDT [facility] Work Phone: End: 01-18-2025 LUNG DIFFUSION CAPACITY (DLCO) LUNG DIFFUSION CAPACITY (DLCO) PFT Routine 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 ([facility]) 1 Occurrences starting 12/20/2023 until 01/18/2025 [facility] Work Phone: Comment on above: 1 Occurrences starting 12/20/2023 until 01/18/2025 End: 01-18-2025 LUNG VOLUMES LUNG VOLUMES PFT Routine 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 ([facility]) 1 Occurrences starting 12/20/2023 until 01/18/2025 [facility] Work Phone: Comment on above: 1 Occurrences starting 12/20/2023 until 01/18/2025 End: 05-26-2024 AUGUST SCREENING AUGUST SCREENING Radiology Routine Encounter for screening mammogram for breast cancer 1 Occurrences starting 04/28/2023 until 05/26/2024 [facility] Work Phone: Comment on above: 1 Occurrences starting 04/28/2023 until 05/26/2024 End: 03-11-2025 MG Breast - right Diagnostic for implant AUGUST DIAGNOSTIC RIGHT Radiology Routine Lesion of skin of breast 1 Occurrences starting 02/10/2024 until 03/11/2025 [facility] Work Phone: Comment on above: 1 Occurrences starting 02/10/2024 until 03/11/2025 OXIMETRY - NOCTURNAL OXIMETRY - NOCTURNAL Procedures Routine Nocturnal hypoxemia Ordered: 12/20/2023 [facility] Work Phone: Comment on above: Ordered: 12/20/2023 Patient Education [facility] Work Phone: Patient referral [facility] Work Phone: SPIROMETRY BASELINE ONLY SPIROME TRY BASELINE ONLY PFT Routine Bronchiectasis without acute exacerbation (HCC) 06/19/2022 10:07 AM EDT [facility] Work Phone: End: 01-18-2025 SPIROMETRY WITH DILATOR IF OBSTRUCTED SPIROMETRY WITH DILATOR IF OBSTRUCTED PFT Routine 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) 1 Occurrences starting 12/20/2023 until 01/18/2025 [facility] Work Phone: Comment on above: 1 Occurrences starting 12/20/2023 until 01/18/2025 Thyrotropin [Units/volume] in Serum or Plasma TSH BLD Lab Routine Acquired hypothyroidism 05/04/2022 11:59 AM EDT [facility] Work Phone: End: 10-30-2024 Thyrotropin [Units/volume] in Serum or Plasma TSH BLD Lab Routine Acquired hypothyroidism Every 3 months for 60 Occurrences starting 10/31/2023 until 10/30/2024 [facility] Work Phone: Comment on above: Every 3 months for 60 Occurrences starti ng 10/31/2023 until 10/30/2024 Thyroxine (T4) free [Mass/volume] in Serum or Plasma T4 FREE/FREE THYROX Lab Routine Acquired hypothyroidism 05/04/2022 11:59 AM EDT [facility] Work Phone: End: 10-30-2024 Thyroxine (T4) free [Mass/volume] in Serum or Plasma T4 FREE/FREE THYROX Lab Routine Acquired hypothyroidism Every 3 months for 60 Occurrences starting 10/31/2023 until 10/30/2024 [facility] Work Phone: Comment on above: Every 3 months for 60 Occurrences starti ng 10/31/2023 until 10/30/2024 Tissue Pathology bio psy report [facility] Work Phone: Comment on above: Release Upon Ordering for 1 Occurrences starting 04/11/2025, 1 completed Triiodothyronine (T3 ) Free [Mass/volume] in Serum or Plasma T3 FREE BLD Lab Routine Acquired hypothyroidism 05/04/2022 11:59 AM EDT [facility] Work Phone: End: 10-30-2024 Triiodothyronine (T3) Free [Mass/volume] in Serum or Plasma T3 FREE BLD Lab Routine Acquired hypothyroidism Every 3 months for 60 Occurrences starting 10/31/2023 until 10/30/2024 [facility] Work Phone: Comment on above: Every 3 months for 60 Occurrences starti ng 10/31/2023 until 10/30/2024 End: 03-11-2025 US Breast - right limited US BREAST LTD RIGHT Radiology Routine Lesion of skin of breast 1 Occurrences starting 02/10/2024 until 03/11/2025 [facility] Comment on above: 1 Occurrences starting 02/10/2024 until 03/11/2025 End: 07-02-2025 US Lower extremity artery - bilateral US ART DUPL LOWER EXT BILATERAL Radiology Routine Pain in both lower extremities 1 Occurrences starting 06/02/2024 until 07/02/2025 [facility] Comment on above: 1 Occurrences starting 06/02/2024 until 07/02/2025 [facility] Immunizations Immunization Date Immunization Notes Care Provider Fa cili 06-01-2024 COVID-19 vaccine, ag e 12+ yr (PFIZER-BIONTECH COMIRNATY) Sy Matthews MD Work Phone: [facility] 06-01-2024 influenza, high dose seasonal, preservative-free Sy Matthews MD Work Phone: [facility] 06-01-2024 influenza virus vacc ine, unspecified formulation Jonathan Posey MD Work Phone: [facility] 06-04-2023 influenza (aIIV4) vaccine, age 65+ yr, quadrivalent, PF (FLUAD QUAD) Screen [facility] 06-04-2023 respiratory syncytia l virus (RSV) vaccine, adjuvanted (AREXVY) Screen [facility] 06-04-2023 influenza virus vacc ine, unspecified formulation Param Vizcaino APRN.LEAD HOUSEKEEPER Work Phone: [facility] 09-15-2022 COVID-19 vaccine, ag e 12+ yr, bivalent (MODERNA) Ashanti Velasco [facility] 06-11-2022 influenza, high dose seasonal, preservative-free Dr. Lidia Lopez Work Phone: [facility] 06-11-2022 influenza, high-dose , quadrivalent vaccine (FLUZONE HIGH DOSE QUADRIVALENT) Sg Julien MD Work Phone: [facility] 06-11-2022 influenza virus vacc ine, unspecified formulation Lab 1 Work Phone: [facility] 03-06-2022 zoster vaccine melonie WONG ANESTHESIA ATTENDING-LEAD HOUSEKEEPER [facility] 12-10-2021 zoster vaccine recombinant GENESIS MARVIN QUINTANAN-LEAD HOUSEKEEPER [facility] 07-24-2021 COVID-19 vaccine, booster dose (MODERNA) Delroy De La Rosa MD Work Phone: [facility] Work Phone: Comment on above: Result Comment: 2021: [id number] 07-03-2021 influenza virus vacc ine, unspecified formulation GENESIS WONG APRN-LEAD HOUSEKEEPER [facility] 07-03-2021 influenza, high-dose , quadrivalent vaccine (FLUZONE HIGH DOSE QUADRIVALENT) Delroy De La Rosa MD Work Phone: [facility] 11-29-2020 COVID-19 vaccine, fu ll dose (MODERNA) Delroy De La Rosa MD Work Phone: [facility] Work Phone: Comment on above: Result Comment: 2021: [id number] 11-01-2020 COVID-19 vaccine, fu ll dose (MODERNA) Delroy De La Rosa MD Work Phone: [facility] Work Phone: Comment on above: Result Comment: 2021: [id number] 07-03-2020 influenza virus vacc ine, unspecified formulation GENESIS WONG APRN-LEAD HOUSEKEEPER [facility] 07-03-2020 influenza, high-dose , quadrivalent vaccine (FLUZONE HIGH DOSE QUADRIVALENT) Delroy De La Rosa MD Work Phone: [facility] 07-19-2019 influenza virus vacc ine, unspecified formulation GENESIS OWNG APRN-LEAD HOUSEKEEPER [facility] 07-19-2019 influenza, high dose seasonal, preservative-free Delroy De La Rosa MD Work Phone: [facility] 06-20-2019 Influenza virus vaccine [facility] 06-20-2019 influenza, seasonal, injectable, preservative free Delroy De La Rosa MD Work Phone: [facility] Work Phone: 06-16-2018 influenza virus vacc ine, unspecified formulation GENESIS WONG ANESTHESIA ATTENDING-LEAD HOUSEKEEPER [facility] 06-16-2018 influenza, high dose seasonal, preservative-free Delroy De La Rosa MD Work Phone: [facility] 09-27-2017 pneumococcal polysaccharide vaccine, 23 valent Delroy De La Rosa MD Work Phone: [facility] Work Phone: 06-21-2017 influenza virus vacc ine, unspecified formulation GENESIS WONG ANESTHESIA ATTENDING-LEAD HOUSEKEEPER [facility] 06-21-2017 influenza, high dose seasonal, preservative-free Delroy De La Rosa MD Work Phone: [facility] Work Phone: 08-05-2016 hepatitis A and hepatitis B vaccine Delroy De La Rosa MD Work Phone: [facility] 08-05-2016 influenza, high dose seasonal, preservative-free Delroy De La Rosa MD Work Phone: [facility] 04-29-2016 haemophilus influenz ae type b vaccine, PRP-OMP conjugate Delroy De La Rosa MD Work Phone: [facility] 04-29-2016 meningococcal polysaccharide (groups A, C, Y and W-135) diphtheria toxoid conjugate vaccine (MCV4P) Delroy De La Rosa MD Work Phone: [facility] 04-29-2016 pneumococcal conjuga te vaccine, 13 valent Delroy De La Rosa MD Work Phone: [facility] 04-29-2016 poliovirus vaccine, inactivated Delroy De La Rosa MD Work Phone: [facility] 04-29-2016 tetanus and diphther ia toxoids, adsorbed, preservative free, for adult use (5 Lf of tetanus toxoid and 2 Lf of diphtheria toxoid) Delroy De La Rosa MD Work Phone: [facility] 02-03-2016 haemophilus influenz ae type b vaccine, PRP-OMP conjugate Delroy De La Rosa MD Work Phone: [facility] 02-03-2016 hepatitis A and hepatitis B vaccine Delroy De La Rosa MD Work Phone: [facility] 02-03-2016 pneumococcal conjuga te vaccine, 13 valent Delroy De La Rosa MD Work Phone: [facility] 02-03-2016 poliovirus vaccine, inactivated Delroy De La Rosa MD Work Phone: [facility] 02-03-2016 tetanus and diphther ia toxoids, adsorbed, preservative free, for adult use (5 Lf of tetanus toxoid and 2 Lf of diphtheria toxoid) Delroy De La Rosa MD Work Phone: [facility] 11-04-2015 haemophilus influenz ae type b vaccine, PRP-OMP conjugate Delroy De La Rosa MD Work Phone: [facility] 11-04-2015 hepatitis A and hepatitis B vaccine Delroy De La Rosa MD Work Phone: [facility] 11-04-2015 influenza virus vacc ine, unspecified formulation GENESIS WONG ANESTHESIA ATTENDING-LEAD HOUSEKEEPER [facility] 11-04-2015 influenza, high dose seasonal, preservative-free Delroy De La Rosa MD Work Phone: [facility] 11-04-2015 pneumococcal conjuga te vaccine, 13 valent Delroy De La Rosa MD Work Phone: [facility] 11-04-2015 poliovirus vaccine, inactivated Delroy De La Rosa MD Work Phone: [facility] 11-04-2015 tetanus toxoid, redu gamaliel diphtheria toxoid, and acellular pertussis vaccine, adsorbed Delroy De La Rosa MD Work Phone: [facility] 08-20-2015 pneumococcal polysaccharide vaccine, 23 valent Param Vizcaino ANESTHESIA ATTENDING.LEAD HOUSEKEEPER Work Phone: [facility] 09-03-2014 Influenza virus vaccine [facility] 09-03-2014 influenza, seasonal, injectable, preservative free Delroy De La Rosa MD Work Phone: [facility] Work Phone: 08-01-2014 influenza virus vacc ine, unspecified formulation GENESIS WONG ANESTHESIA ATTENDING-LEAD HOUSEKEEPER [facility] 08-01-2014 influenza, injectabl e, quadrivalent, preservative free Delroy De La Rosa MD Work Phone: [facility] 08-08-2012 tetanus toxoid, redu gamaliel diphtheria toxoid, and acellular pertussis vaccine, adsorbed Delroy De La Rosa MD Work Phone: [facility] 07-11-2012 influenza virus vacc ine, unspecified formulation Delroy De La Rosa MD Work Phone: [facility] 07-25-2000 diphtheria and tetan us toxoids, adsorbed for pediatric use Delroy De La Rosa MD Work Phone: [facility] Work Phone: Payers Date Payer Category Payer Self-pay [id number] 2021 Medicare (Managed Care) [place] [facility] [id number] 2021 Private Health Insurance [id number] 2017 Medicare [place] AETNA MEDICARE PLAN (PPO) [id number] 2017-Present [id number] 2017 Medicare AETNA MEDICARE A ETNA MEDICARE PPO [id number] 2017-Present [phone] [address] [place] [address] PPO [id number] 2017 Medicare [id number] 2016 Private Health Insurance [id number] 1950 Unknown [id number] 1950 Unknown [id number] 1950 Unknown [id number] Unknown [id number] Unknown [id number] Unknown [id number] Unknown [id number] Unknown [id number] Social History Date Type Detail Facility Start: 09-17-2018 End: 05-06-2022 Tobacco smoking status RIIS Never smoker [facility] Start: 1950 Sex Assigned At Not on file [facility] Start: 09-17-2018 End: 05-06-2022 Tobacco use and exposure Never used [facility] Start: 09-17-2018 End: 08-16-2022 Alcohol intake Current non-drinker of alcohol (finding) [facility] Start: 12-17-2021 End: 05-04-2025 Alcohol intake Ex-drinker (finding) [facility] Start: 08-16-2020 History SDOH Alcohol Frequency 99 [facility] Start: 04-29-2016 History SDOH Alcohol Comment Quit 2013, previously 1-2 drinks per year [facility] Start: 03-24-2020 End: 12-25-2022 History SDOH Social Connections Phone 2 [facility] Start: 03-24-2020 End: 08-28-2022 History SDOH Social Connections Yarsani 3 [facility] Start: 03-24-2020 End: 12-25-2022 History SDOH Social Connections Membership 1 [facility] Start: 05-30-2020 End: 12-25-2022 History SDOH Financial 5 [facility] Start: 03-23-2020 Education 18 [facility] Start: 04-13-2021 End: 08-15-2022 Exposure to SARS-CoV-2 (event) Not sure [facility] Start: 01-07-2022 End: 03-24-2023 Tobacco smoking status NHIS Unknown if ever smoked [facility] Start: 12-15-2018 None [facility] Start: 02-10-2020 Spouse/ Significant Other [facility] Start: 1950 Sex Assigned At Female [facility] Start: 02-07-2022 End: 06-02-2022 Exposure to SARS-CoV-2 (event) Unable to assess [facility] Work Phone: History of tobacco use [facility] Start: 08-28-2022 History SDNH Alcohol Std Drinks 0 [facility] Start: 07-30-2016 Non-smoker [facility] Start: 08-28-2022 End: 01-25-2023 History of Social function [facility] Start: 08-28-2022 End: 01-25-2023 Social connection and isolation panel [facility] Do you belong to any clubs or organizations such as spiritism groups, unions, fraternal or athletic groups, or school groups? Yes [facility] Are you now , , , , never or living with a partner? [facility] How often to you hav e a drink containing alcohol? Never [facility] Start: 08-21-2012 How many standard drinks containing alcohol do you have on a typical day? Patient does not drink [facility] Do you feel stress - tense, restless, nervous, or anxious, or unable to sleep at night because your mind is troubled all the time - these days [OSQ] Only a little [facility] (I/We) worried samira er (my/our) food would run out before (I/we) got money to buy more. Never true [facility] In the past 12 month s, was there a time when you were not able to pay the mortgage or rent on time? No [facility] Start: 02-17-2022 Gender identity Identifies as female gender (finding) [facility] Do you feel stress - tense, restless, nervous, or anxious, or unable to sleep at night because your mind is troubled all the time - these days [OSQ] Not at all [facility] Medical Equipment Procedure Code Equipment Code Equipment Origin al Text Equipment Identifier Dates Shell G7 42mm A Offset Hemisphere [place] Acetabular Multihole Hip - [id number] Start: 02-02-2019 Bearing Active Articulation 32mm 22.2mm A Arcomxl Hip - [id number] Start: 02-02-2019 Liner G7 32mm A Cocr Acetabular 2 Mobility Hip - [id number] Start: 02-02-2019 Head 22.2mm Mason dard Cocr Femoral Modular Type 1 Hip - [id number] Start: 02-02-2019 Stem Taperloc Xr Series 123d 5 Porous 130mm Femoral Press Fit Full Profile - [id number] Start: 02-02-2019 Mesh Parietene Polypropylene Macroporous [id number] Surgical Monofilament - [id number] Start: 05-29-2020 Goals Date Patient Goal Desired Activity /State Personal health goal Comment on above: Formatting of this n ote might be different from the original. Pt wants the strength to climb steps Personal health goal Comment on above: Formatting of this n ote might be different from the original. Pt wants the strength to climb steps Personal health goal Comment on above: Formatting of this n ote might be different from the original. Prevent UTI infection Personal health goal Personal health goal Comment on above: Formatting of this n ote might be different from the original. Patient goal: optimize current health status Patient plan: medication compliance, pcp/specialist follow through, avoid falls Time frame: ongoing Personal health goal Comment on above: Formatting of this n ote might be different from the original. This patient has the following Chronic Obstructive Pulmonary Disease Health Maintenance goals: Two PCP visits annually and Pulmonology visit annually This patient has the following education goals: COPD Core Education Packet, COPD Action Plan/Zones, Understanding COPD, and How to use MDI Patient will meet these goals by 09/19/24 (describe interventions done by PCC) Personal health goal Comment on above: Formatting of this n ote might be different from the original. Pt wants the strength to climb steps Comment on above: Formatting of this n ote might be different from the original. Pt wants the strength to climb steps Comment on above: Formatting of this n ote might be different from the original. Prevent UTI infection Functional Status Date Assessment Result Facility 03-26-2025 Total score [AUDIT-C] 0 03/26/20 8:29 PM EDT User, Aguila [facility] 03-26-2025 How often to you hav e a drink containing alcohol? Never 03/26/2025 8:29 PM EDT User, Mychart Never [facility] 03-26-2025 Functional status Patient does n ot drink 03/26/2025 8:29 PM EDT User, Aguila Patient does not drink [facility] 03-26-2025 How often do you hav e 6 or more drinks on 1 occasion? Never 03/26/2025 8:29 PM EDT User, Aguila Never [facility] 03-26-2023 Are you deaf, or do you have serious difficulty hearing No 03/26/2023 2:20 PM EDT Olamide Felix RN No [facility] 03-26-2023 Are you blind, or do you have serious difficulty seeing, even when wearing glasses No 03/26/2023 2:20 PM Olamide Larsen RN No [facility] 03-26-2023 Do you have serious difficulty walking or climbing stairs No 03/26/2023 2:20 PM JADAT Olamide Felix RN No [facility] 03-26-2023 Do you have difficul ty dressing or bathing No 03/26/2023 2:20 PM Olamide Larsen RN No [facility] 03-26-2023 Because of a physica l, mental, or emotional condition, do you have difficulty doing errands alone such as visiting a physician's office or shopping No 03/26/2023 2:20 PM Olamide Larsen RN No [facility] 08-24-2022 Functional status Ambulates [facility] Work Phone: 05-20-2022 Functional Status Room check performed [facility] 05-20-2022 Functional Status [facility] 05-20-2022 Functional Status [facility] 05-20-2022 Functional Status Independent [facility] 05-20-2022 Functional Status Demonstrates C orrect Call Light Use Yes [facility] 05-19-2022 Functional Status Poor [facility] 05-19-2022 Functional Status Multilevel home [facility] 05-18-2022 Functional Status Sensory Defici ts Hearing deficit, left ear, Hearing deficit, right ear [facility] 01-15-2022 Functional status Ambulates [facility] Work Phone: 01-10-2022 Functional status Bathroom Privilege [facility] Work Phone: Mental Status Date Assessment Result Facility 03-26-2023 Because of a physica l, mental, or emotional condition, do you have serious difficulty concentrating, remembering, or making decisions No 03/26/2023 2:20 PM Olamide Larsen RN No [facility] 08-24-2022 Cognitive function Voice/Name [facility] Work Phone: 08-23-2022 Cognitive function Level Of Cons ciousness Awake;Alert;Appropriate;Fol lows Commands [facility] Work Phone: 05-20-2022 Mental Status Orientation Asse ssment Oriented x 4 [facility] 08-31-2022 Mental Status Oriented x 4 [facility] 05-20-2022 Mental Status [facility] 05-19-2022 Mental Status [facility] 01-15-2022 Cognitive function Voice/Name [facility] Work Phone: 01-10-2022 Cognitive function Voice/Name [facility] Work Phone: Clinical Notes 05-29-2020 to 06-06-2025 Belgica Salmon - 06/06/2025 8:31 AM Sg Lopez MD - 05/23/2025 7:22 PM Ashley Joshua LPN - 05/04/2025 8:58 AM Belgica Florez - 05/07/2025 8:18 AM EDTDiscristiana Instr - Other Orders Note Date & Type Note Facility 06-06-2025 History of Present illness Narrative POPULATION HEALTH NAVIGATION OUTREACH Action/ HCC Flu: Open HCCs F/U: Due for dose 1 since 05/21/2025 - Did not contact patient - Cancer Patient Reason for Outreach Care Gap/HCC or Scheduling Wellness Visits Care Gaps due: Follow-up Appointment Flu Vaccine Patient Contacted: Patient in other facility or Active Cancer Treatment - End Outreach Navigation Signature: Belgica Salmon June 06, 2025 8:31 AM documented in this encounter [facility] 05-23-2025 History of Present illness Narrative 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 She also experiences intermittent oral ulcers. She has a history of bronchiectasis, diagnosed via CT scan in 2020, and has been experiencing chronic dyspnea on exertion. She was evaluated in pulmonary clinic and also is followed by her apple thinner. She is on metoprolol for tachycardia. She has a history of atrial fibrillation and is on Eliquis for anticoagulation due to previous thromboembolic events. She also has a history of osteoporosis and was previously on Fosamax but discontinued due to hypercalcemia. She is currently taking calcium and vitamin D supplements. In recent history, the patient reports some mucus and rectal bleeding over the past two months from her rectal stump (prior subtotal colectomy on June 19, 2015). The patient described this as bright red blood, approximately a couple of tablespoons per episode, associated with mucus discharge. She was evaluated by Dr. Posey (general surgery), who performed a colonoscopy on 04/11/2025 with the biopsies revealing findings consistent with diversion colitis and not reported GVHD. He suggested steroid suppositories, but the patient reports difficulty with administration. She also reports chronic myalgia, particularly in the thighs and hips, with the left side being more affected. The pain worsens with exercise and is associated with a history of remote prednisone use, which she believes contributed to muscle weakness. She uses a railing and cane for ambulation and reports a fall in September 2024, resulting in a reina injury. She denies recent falls, but reports occasional numbness and tingling in the feet, which resolves with movement. She experiences intermittent swelling of the lower extremities, exacerbated by heat and humidity, and has started using compression socks. She denies chest pain, palpitations, wheezing, or cough but reports episodes of tachycardia, particularly in hot and humid conditions, with heart rates up to 125 bpm. She has an appointment with Dr. Sy Matthews ([facility]) in August and plans to request a repeat stress test due to worsening dyspnea. She denies headaches, dizziness, or syncope but reports a history of hypotension with blood pressures around 90/60 mmHg, which has improved recently. She denies visual or auditory changes but reports occasional diplopia when dehydrated. She denies dysphagia, nausea, vomiting, abdominal pain, or changes in appetite but expresses difficulty with weight loss. She denies fevers, night sweats, or other systemic symptoms. 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 She denies alcohol use and reports a stable mood, taking her health challenges in stride. She continues to exercise regularly, aiming for three days a week at the gym, but currently manages once a week due to her symptoms. O: REVIEW OF SYSTEMS: Constitutional: (+) heat intolerance, (+) cold intolerance, (-) fever, (-) night sweats Head: (-) headache, (-) dizziness Eyes: (+) dry eyes Ears/Nose/Mouth/Throat: (+) chronic hearing loss for ~50 years, (+) occasional palatal ulcer, (-) sore throat, (-) dysphagia Neck: (-) neck pain Breast: (-) breast mass Cardiovascular: (+) episodic tachycardia Respiratory: (+) chronic dyspnea on exertion, (-) wheezing, (-) cough Gastrointestinal: (+) rectal mucus discharge with occasional blood from reported diversion colitis Genitourinary: (-) hematuria, (-) vaginal bleeding Musculoskeletal: (+) generalized myalgia, (+) left thigh pain, (+) left hip pain, (+) lower extremity edema, (+) intermittent pedal paresthesia, (-) leg pain below knees Skin: (+) persistent reina discoloration Neurological: (-) syncope Psychiatric: (-) depressed mood, (-) anxiety . PHYSICAL EXAMINATION: GENERAL: Alert in no apparent distress. HEENT: Atraumatic, no epistaxis and a normal oral mucosa. NECK: Supple without lymphadenopathy. LUNGS: Clear to auscultation. CARDIAC: Regular rate and rhythm. ABDOMEN: Active bowel sounds, soft, nondistended, nontender, without appreciable hepatosplenomegaly; and there was a well-functioning ileostomy in place. BACK: No tenderness. LYMPHATICS: No appreciable lymphadenopathy. EXTREMITIES: No edema. NEUROLOGIC: Alert and oriented, without gross focal deficits. SKIN: No rash. Laboratory data: Reviewed in [facility] Chronic GVHD Flowsheet Assessment 05/04/2025 06/01/2024 06/02/2023 Chronic GVHD Assessment Karnofsky Score 70 70 70 ECOG Score 1 1 1 Has chronic GVHD developed since the last entry? No No No Is there persistence of chronic GVHD since the last entry? Yes Yes No Biopsy Performed? No No No Skin staging? No No Mouth staging? Unknown No Comment Although she has had an occasional mouth ulcer in the past, there was none currently present to suggest GVHD Eyes staging? Yes Yes Comment Her ocular symptoms have been controlled with her current therapy GI tract staging? No No Comment Her recent endoscopic biopsy for rectal bleeding was consistent with a diversion colitis rather than GVHD Liver staging? No No Lung staging? Unknown Unknown Comment Although she has had some chronic dyspnea on exertion, this is not definitive for GVHD and she continues to follow with her apple thinner. Although she has had some chronic dyspnea on exertion, this has not been definitive for GVHD Joint and fascia staging? No No Other Organ Involvement Or Features? No No Eyes Score 1 1 Keratoconjunctivitis sicca (KCS) confirmed by opthamologist? Yes Yes Is the above attributable ENTIRELY to a non-GVHD cause? No No Chronic GVHD Global Severity Score Mild Mild Total Chronic GVHD Score 1 1 Subjective Clinician Opinion Of Severity Mild Mild Impression/plan: (The following summary was copied from my note on 06/01/2024) She was diagnosed with FLT3 ITD+/NPM1+ AML after presenting with chest pain. She received 7+3 and eltrombopag (CASE 1493) for induction. Her induction course was complicated by chest pain of unclear etiology and a skin rash likely due to cytarabine or zosyn. She had a UTI (E. coli) as well as noted pulmonary nodules on CT scan chest 07/13/2014. She was treated with posaconazole on 07/18/2014 since lesions appeared while on voriconazole. Discharged from [facility] 11/03/2014 following cycle #3 HiDAC. 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 Did very well for first 100 days and was tolerating steroid taper. Several days after going home, developed nausea/vomiting. Culminated in total colectomy. Per discharge summary 08/20/2015: Ms. Smith is a 65 year old female who presents from [facility] with positive V/Q scan c/w intermediate risk of pulmonary embolism. 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 She presented to [facility] 08/06 with chest pain. Her pain is described as left and right sided with left sided shoulder pain. Some dyspnea that she attributes to pain not difficulty getting breath in. She denies radiation to her jaw or back, no diaphoresis, no heaviness. She has an allergy to iodine and omnipaque so it was not possible to do a CTPE for she had a V/Q scan which showed intermediate probability for PE. While at [facility] Dr. Welch from oncology saw the patient and had no further recs. Pulmonary saw the patient as well and had no further recs. Cardiology evaluated the patient and felt that her troponin elevation is most likely secondary to her PE which was of high suspicion given immobility and malignancy. He suggested aspirin, continue beta neda, hold statin, noted chronic RBBB. Troponins were 0.098 and 0.121. On admission here she is HDS, conversant, some residual left shoulder pain but improved overall, no fevers, chills, night sweats and limited SOB. No diarrhea, dysuria, cough, headaches. Last two hospitalizations: 06/04-06/19 Developed E. Coli bacteriemia and was treated with a full course of meropenem. She resides at [place] currently. 06/19-07/10 Recently admitted where she developed pneumatosis coli and was taken to surgery where she got a subtotal colectomy with end ileostomy. Had a full course of CMV treatment with ganciclovir, followed by ID. Hospital Course: Mrs Smith was admitted to the MICU and placed on a heparin drip for suspected pulmonary embolism. CT scan with PE protocol was negative for pulmonary embolism and the heparin drip was stopped. Once stabilized she was transferred to the BMT unit. [place] U/A and urine culture showed a UTI d/t a multi resistant E.Coli which was treatet with a week course of IV cetriaxone. Her hospital course was further complicated by atrial fibrillation with rapid ventricular response. This required transfer to cardiology ICU for continuous infusion amiodarone for hrt rate control. Her Coreg and norvasc was stopped due to low blood pressure. She was transitioned to oral Amiodarone, and her multiple medications were adjusted for interactions i.e ppx cipro and posa were dc'd. PT/OT recommended SNF upon discharge, final placement arrangements were made and she was transferred to [facility] Underwent ileoscopy on 08/17/2018 for potential GI bleed/GVHD. At approximately 28 cm proximal to the stoma one semi-pedunculated nonbleeding polyp was identified. It was 4 mm in diameter. Biopsies were obtained. Otherwise the examined portion of the ileum was normal. Pathology: 1. Ileum, biopsy (A) - Small intestinal mucosa with architectural distortion and occasional apoptotic bodies. See comment. 2. Ileum polyp, biopsy (B) - Small intestinal mucosa with architectural distortion and pyloric gland metaplasia, see comment. COMMENT The patient's history of yylob-liybjp-mypb disease (GVHD) is noted. In the current specimen, only occasional apoptotic bodies are present, and do not meet our threshold for a diagnosis of GVHD (greater than 1 apoptotic body per piece of tissue). However, given their presence, some component of GVHD activity cannot be entirely ruled out. Both biopsies show evidence of chronic mucosal injury, possibly from prior GVHD. Chronic infection, chronic ischemia and chronic drug/medication injury could also produce these histologic features. An immunostain for CMV will be obtained and the results will be reported as an addendum. EGD on 08/31/2018. She was observed to have localized, moderate inflammation characterized by erosions, erythema and friability as well as serpentine ulcerations in the gastric antrum. Biopsies were obtained. The examined duodenum was normal. The lower third and middle third of the esophagus were both normal. Patient was advised to use sucralfate in addition to her proton pump inhibitor. Pathology: 1. Duodenum, biopsy (A) - Duodenal mucosa with minimal crypt apoptosis. 2. Antrum, biopsy (B) - Antral mucosa with chronic active inflammation and features of erosion. - See comment. 3. Esophagogastric junction, biopsy (C) - Reactive squamous mucosa and inflamed cardiac mucosa. - No evidence of intestinal metaplasia or dysplasia. 4. Mid esophagus, biopsy (D) - Mildly reactive squamous mucosa with rare intraepithelial eosinophils (up to 2 eosinophils in a single high power field). COMMENT The level of apoptotic activity seen the duodenum biopsy (part A) is insufficient to warrant a diagnosis of GVHD. H. pylori and CMV immunostains performed on the antrum biopsy (part B) to evaluate the chronic active inflammation are both negative. Underwent left hip replacement in January 2019. In April 2022 the patient had been evaluated by gynecology for vaginal and vulvar pain. She had continued on clobetasol Monistat without any relief. She was subsequently evaluated by her primary care physician and was having increasing lower extremity pain. She was directed to the [facility] ED and reportedly a CT scan demonstrated no etiology for the pain. Since this had further worsened she presented to [facility] on 05/18. A duplex ultrasound of her right lower extremity showed an acute DVT in the right distal external iliac vein, right common femoral vein, right deep femoral vein and right posterior tibial vein as well as in the right greater saphenous vein. She was started on Eliquis after initially receiving heparin. Transplant Summary: Date of transplant: 11/28/14 Protocol(s):3131, 1202 Preparative regimen: bu/flu Donor: NMDP HLA: complete 04/27 match Stem cell source: peripheral Total nucleated cell dose (x10e8/kg): 18.03 CD34 cell dose (x10e6/kg): 5.77 GVHD prophlaxis: tacrolimus -> sirolimus Donor / Recipient ABO: O+/A+ Minor ABO Incompatibility present? 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 - She has been in a complete remission greater than 10 years and is felt to be cured with well recovered blood counts that may be followed Chronic GVHD - History of oral, ocular, liver, vaginal, and GI GVHD - She may continue to follow ophthalmology's recommendations for management and her ocular symptoms have been controlled with her current therapy (most likely burnt out GVHD) - The chronic dyspnea on exertion is not definitive for GVHD and once again she will follow-up with her apple thinner -The patient has no other signs suggestive of GVHD while remaining off immunosuppressant therapy Bronchiectasis and chronic dyspnea on exertion - She was evaluated in pulmonary clinic on 01/22/2025 and may follow the proposed recommendations Immunodeficiency - In the past she had post-transplant immunizations Diversion colitis/proctitis with some rectal bleeding - She had more recently been evaluated by Dr. Jonathan Posey (general surgery) and may follow the proposed recommendations. Of note the endoscopic biopsy on 04/11/2025 also was negative for GVHD and CMV. The patient's hemoglobin and platelet count remain normal and may be further monitored. 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 Gastroesophageal reflux disease without esophagitis - The patient has continued to take Nexium Essential hypertension -Her blood pressure was 133/82 today and she may further monitor this while following with her local physician as she continues on Lopressor Osteoporosis -Previously stopped Forteo and calcium/vitamin D due to hypercalcemia in the past -She had a follow-up bone density test on 05/29/2024 that reported the lowest T-score of -3.0 in the right hip still consistent with osteoporosis - Continue follow-up with Dr Lopez regarding further management recommendations H/o Provoked DVT in 2016 - Continues on Eliquis, also s/p IVC filter placement at that time. - Also, has ?? History of A-fib, which is another indication for anticoagulation. - Will c/w Eliquis - managed by Dr Baez Right lower extremity DVT - Continue Eliquis Prior history of neuropathy in hands - Although this had been chronic, she had no complaints of this today including no pain or motor deficits - Previously she had no evidence of vitamin B12 deficiency Prior basal cell skin carcinoma (nose and left cheek) status post Mohs procedure -She may follow-up with her television cameraman She and her family had her questions answered, they understand my recommendations and are in agreement with the proposed plan. If they have further questions or problems he may contact me, the BMT office or one of her other physicians. She will continue to follow with her other physicians for the remainder of her non-transplant medical care. Sg Julien MD CC: DO Lidia Oakes MD (PCP) Chrissy Moser MD (pulmonary) Sy Matthews MD (cardiology in [place]) Jonathan Posey MD (General Surgery) Sen Walton MD (ophthalmology) Additional intake questions: Has the patient had fever, nausea, vomiting, diarrhea, constipation, fatigue for > 1 week? No Does the patient have a decreased appetite? No Does patient want to see a Well Head Pumper? No (yes to any of above refer patient to schedulers for dietitian appointment) ) Does patient have any new or increased numbness or tingling of extremities? No Is patient interested in fertility information? No Does patient need any prescription refills? No Does patient have an advanced directive in place? Yes, copies are in Epic documented in this encounter [facility] 05-07-2025 History of Present illness Narrative POPULATION HEALTH NAVIGATION OUTREACH Action/I - 3 HCCs F/U: open HCCs Updated appt notes to address HCCs Patient doing active cancer treatment Reason for Outreach Care Gap/HCC or Scheduling Wellness Visits Care Gaps due: Follow-up Appointment Patient Contacted: Patient in other facility or Active Cancer Treatment - End Outreach Navigation Signature: Belgica Salmon May 07, 2025 8:18 AM documented in this encounter [facility] 04-18-2025 History of Present illness Narrative FOLLOW UP VISIT - ENDOSCOPY NAME: Cong Smith [facility] NO.: [id number] DATE OF SERVICE: 04/18/2025 : 1950 REFERRING PHYSICIAN: Lidia Lopez MD Cong is a patient I am following for frequent leakage of mucus from her rectal stump. She also notes increased bleeding or what she assumes is blood from the rectal stump. Alexa has a previous history of AML and had severe rgeat-drhlkk-egiy disease requiring a subtotal colectomy on June 19, 2015. The patient notes she has episodically passed mucous from her rectum. Since earlier this year, the patient has noted occasionally passing blood per rectum and anal pain. She notes a sensation of pressure and with trying to pass the mucous as she has in the past, she noted significant blood in the toilet bowl and persistent anal pain afterwards. 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 Pathology returned as rectal mucosa with reactive lymphoid aggregates but no other abnormalities noted. Prior to this procedure the patient states she was having issues of difficulty passing any mucus and a feeling of pressure in her rectum. She now no longer notes a feeling of pressure in her rectum but does note she has mucus that is occasionally bloody leaking out very frequently. The patient is being seen by me at the request of Dr. Baez for my opinion and advice regarding rectal stump bleeding. Dr. Burton performed rectal stump dilation and endoscopy on April 11, 2025. The patient was found to have: Pathology demonstrated: Impression: - Friable and inflammed mucosa of the anal canal and rectal stump were visualized and the mucosa was biopsied. - Digital dilation of the anus was performed in order to accomodate the endoscope. Pathology returned as: FINAL DIAGNOSIS Rectum, biopsy: - Most consistent with diversion colitis - No significant apoptotic activity appreciated The patient notes some continued since the procedure. VITALS: There were no vitals taken for this visit. Assessment IMPRESSION: Diversion colitis/proctitis with some bleeding PLAN: If the patient notes any problems or changes in bowel function, the patient should contact me immediately. Otherwise I recommend follow up endoscopy in 5 years. We discussed steroid enemas or steroid suppositories but the patient feels that this would [address] comfortable to try to place these and is comfortable knowing that she does not have atypical cells Diagnoses: (K62.5) Rectal bleeding (primary encounter diagnosis) Return to Clinic: The patient is instructed to follow-up with me as needed. Jonathan Posey MD documented in this encounter [facility] 04-11-2025 Note Formatting of this n ote might be different from the original. Post procedure discharge instructions, copy of report, and appointment reminder if applicable given to patient. All questions answered and patient verbalizes understanding. Olga Carvajal RN [facility] 04-11-2025 Miscellaneous Notes Post procedure discharge instructions, copy of report, and appointment reminder if applicable given to patient. All questions answered and patient verbalizes understanding. Olga Carvajal RN documented in this encounter [facility] 04-11-2025 Hospital Discharge instructions Jenn Burton DO - 04/11/2025 8:33 AM EDT Okay to restart Eliquis on Wednesday morning (04/13/25) documented in this encounter [facility] 04-11-2025 History and physical note PROCEDURAL SEDATION HISTORY AND PHYSICAL EXAM SERVICE DATE: 04/11/2025 SERVICE TIME: 8:06 AM Subjective HPI: This is a 75 year old female who presents for evaluation of her rectal stump. She endorses rectal bleeding. PAST ANESTHESIA HISTORY: No history of adverse event PAST MEDICAL HISTORY Diagnosis Date Abnormal echocardiogram 06/03/2017 Abnormality of gait 08/10/2016 Acute pulmonary embolism (HCC) 08/06/2015 --Patient presented with pleuritic Chest Pain, Heparin gtt initiated until PE ruled out --Negative for PE CT with PE protocol. Heparin drip was discontinued. PEPE (acute kidney injury) Non-oliguric renal failure. Creat increased to 1.6. Baseline sCr 0.6-1. --change fk to sirolimus. Resolved. 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 Dx 06/28/2014. -S/p induction with 7+3 + eltombopag (CASE 1493) course complicated by E.coli UTI and pulmonary nodule treated with posaconazole. -S/p 3 cycles of HiDAC, all courses complicated by neutropenic fevers and concern for worsening fungal pneumonia although this was not supported by cultures and bronchoscopy. 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 Treated w ganciclovir. 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 Lab draws: 11/28, 12/05, 12/12, 12/13, 4/, 01/09, 5/6, 6/10 Grade GVHD: every Wednesday starting 12/05, and prior to discharge. Pseudophakia of both eyes RBBB (right bundle branch block) 10/01/2015 RUQ abdominal pain S/P bone marrow transplant ([facility]) 08/27/2015 AML. Per LDT [facility] charges 08/22/15 S/P partial colectomy 06/20/2015 --06/20/2015- ex lap, subtotal colectomy, and end ileostomy SBO (small bowel obstruction) ([facility]) 01/25/2017 Secondary adrenal insufficiency (HCC) 09/07/2016 Squamous cell carcinoma Left cheek Syncope Thrush 06/20/2022 Type 2 diabetes mellitus with microalbuminuria, without long-term current use of insulin (HCC) 07/02/2016 Unspecified hypothyroidism PAST SURGICAL HISTORY Procedure Laterality Date ANOSCOPY DX W/COLLJ SPEC BR/WA SPX WHEN PRFRMD 02/22/2020 ARTHRP ACETBLR/PROX FEM PROSTC AGRFT/ALGRFT Left 01/2019 BONE MARROW TRANSPLANT, ALLOGENEIC 11/28/2014 CATARACT EXTRACTION HX Right 08/2016 DELIVERY ONLY x2 , low cervical COLECTOMY TOTAL W/ILEOANAL ANASTMS 06/20/2015 Ileostomy due to resection for bowel perforation ESOPHAGOGASTRODUODENOSCOPY TRANSORAL DIAGNOSTIC 09/06/2018 EGD IR IVC FILTER PLACEMENT 11/21/2015 Celect [place] LAPS SURG CHOLECYSTECTOMY W/CHOLANGIOGRAPHY 11/05/09 PICC LINE INSERT/CONSULT 06/28/2014 PICC LINE INSERT/CONSULT 03/12/2015 REMOVE TONSILS AND ADENOIDS; AGE 12 OVER Prior to Admission medications as of 04/11/25 0726 Medication Sig Last Dose Taking metoprolol tartrate, short acting, (LOPRESSOR) 25 mg tablet Take 1 tablet by mouth two times a day. 04/10/2025 Yes calcium carbonate 600 mg-cholecalciferol 400 units (CALCIUM WITH VITAMIN D) 600 mg-10 mcg (400 unit) tab Take 1 tablet by mouth once daily. 04/10/2025 Yes Cholecalciferol, Vitamin D3, 50 mcg (2,000 unit) cap Take 1 capsule by mouth once daily. 04/10/2025 Yes cyanocobalamin/cobamamide (B12 SUBLINGUAL) Dissolve under the tongue once daily. 04/10/2025 Yes Nebulizer and Compressor For Neb 1 Each twice daily. 04/10/2025 Yes Flaxseed Oil 1,000 mg cap Take 1,000 mg by mouth once daily. 04/10/2025 Yes esomeprazole (NEXIUM) 40 mg capsule TAKE 1 CAPSULE DAILY Unknown apixaban (ELIQUIS) 5 mg tab(s) Take 1 tablet by mouth two times a day. Unknown levothyroxine (SYNTHROID) 112 mcg tablet Take 1 tablet by mouth once daily. Take on empty stomach. For Thyroid ipratropium bromide (ATROVENT) 42 mcg (0.06 %) nasal spray Use 2 Sprays in the nose two times a day as needed. mometasone (NASONEX) 50 mcg/actuation nasal spray Use 2 Sprays in the nose once daily. Rinse mouth after use. Unknown guaiFENesin (MUCINEX) 1,200 mg Ta12 Take 1 tablet by mouth once daily. Unknown lifitegrast (XIIDRA) 5 % ophthalmic drops Use 1 Drop in both eyes two times a day. estradiol (ESTRACE) 0.01 % (0.1 mg/gram) vaginal cream Use 0.5 g vaginally two times a week. Unknown clobetasol (TEMOVATE) 0.05 % ointment Apply 1 application to affected area once daily. Unknown fluorometholone (FML LIQUID FILM) 0.1 % ophthalmic suspension Use 1 Drop in the left eye two times a day. Unknown erythromycin (ROMYCIN) 5 mg/gram (0.5 %) ophthalmic ointment Use 1 application in both eyes two times a day. Unknown Magnesium Glycinate (MAG GLYCINATE) 100 mg tab Take 1 tablet by mouth two times a day. Clobetasol Propionate 0.05 % gel Apply to affected area as needed. Unknown cholestyramine (QUESTRAN) 4 gram packet Take 1 Packet by mouth three times daily with meals. Unknown albuterol (PROVENTIL) 2.5 mg /3 mL (0.083 %) nebulizer solution Use 3 mL via nebulizer three times daily as needed for wheezing/shortness of breath. Inhale over 5-15 minutes Unknown lidocaine (XYLOCAINE) 5 % ointment Apply to affected area as needed (to urethral area). use a small amount to affected area qid prn pain sodium chloride (NEBUSAL) 3 % nebulizer solution Use 4 mL via nebulizer twice daily. Unknown albuterol HFA (PROAIR HFA) 90 mcg/actuation inhaler Inhale 2 Puffs as instructed every 4 hours as needed for wheezing/shortness of breath. Unknown 0.9 % sodium chloride (0.9% NACL) NURSING USE ONLY: USED FOR IMPLANTED VASCULAR ACCESS DEVICE (IVAD) ACCESS. AMBULATORY/OUTPATIENT: PLEASE REORDER UPON HOSPITAL DISCHARGE May access implanted vascular access device (IVAD) as needed for treatment. Flush IVAD with 10-20 mL NS every 4 weeks and PRN when IVAD not in use. Unknown sodium chloride (PRATIMA 128) 5 % ophthalmic solution Use 1 Drop in both eyes as needed. Unknown MULTIVITAMIN ORAL Take 1 tablet by mouth once daily. Unknown Lactobacillus acidophilus (PROBIOTIC ORAL) Take 1 capsule by mouth once daily. ALLERGIES Allergen Reactions Fish Containing Pro* Unknown Forteo [Teriparatid* Other: See Comments Hypercalcemia 08/2018 Gadolinium-Containi* Hives Iodinated Contrast * Hives Iodine [Contrast Dy* Hives Hives, sneezing Omnipaque [Iohexol] Hives Sneezing, pruritis (ears), and hive. Objective PHYSICAL EXAM: The remainder of the physical exam is noncontributory. AIRWAY: Mouth opening greater than 3 fingerbreadths: Yes Neck Full Range of Motion: Yes LUNGS: Lungs clear to auscultation CARDIAC: Regular rhythm,Regular rate Assessment/Plan ASA Class: ASA Class: Patient with severe systemic disease Active Problems: * No active hospital problems. * Resolved Problems: * No resolved hospital problems. * Exogenous Class 1 Obesity Medication and Non-Pharmacologic VTE Prophylaxis/Anticoagulants VTE Prophylaxis: NA Provisional Diagnosis/Treatment Plan: Colonoscopy Sedation Goal: Moderate SIGNATURE: Jenn Burton DO PATIENT NAME: Cong Smith DATE: April 11, 2025 TIME: 8:06 AM [facility] 04-11-2025 History and physical note PROCEDURAL SEDATION HISTORY AND PHYSICAL EXAM SERVICE DATE: 04/11/2025 SERVICE TIME: 8:06 AM Subjective HPI: This is a 75 year old female who presents for evaluation of her rectal stump. She endorses rectal bleeding. PAST ANESTHESIA HISTORY: No history of adverse event PAST MEDICAL HISTORY Diagnosis Date Abnormal echocardiogram 06/03/2017 Abnormality of gait 08/10/2016 Acute pulmonary embolism (HCC) 08/06/2015 --Patient presented with pleuritic Chest Pain, Heparin gtt initiated until PE ruled out --Negative for PE CT with PE protocol. Heparin drip was discontinued. PEPE (acute kidney injury) Non-oliguric renal failure. Creat increased to 1.6. Baseline sCr 0.6-1. --change fk to sirolimus. Resolved. 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 Dx 06/28/2014. -S/p induction with 7+3 + eltombopag (CASE 1493) course complicated by E.coli UTI and pulmonary nodule treated with posaconazole. -S/p 3 cycles of HiDAC, all courses complicated by neutropenic fevers and concern for worsening fungal pneumonia although this was not supported by cultures and bronchoscopy. 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 Treated w ganciclovir. 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 Lab draws: 11/28, 12/05, 12/12, 12/13, 12/26, 01/09, 5/6, 6/10 Grade GVHD: every Wednesday starting 12/05, and prior to discharge. 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 Per LDT [facility] charges 08/22/15 S/P partial colectomy 06/20/2015 --06/20/2015- ex lap, subtotal colectomy, and end ileostomy SBO (small bowel obstruction) ([facility]) 01/25/2017 Secondary adrenal insufficiency ([facility]) 09/07/2016 Squamous cell carcinoma Left cheek Syncope Thrush 06/20/2022 Type 2 diabetes mellitus with microalbuminuria, without long-term current use of insulin ([facility]) 07/02/2016 Unspecified hypothyroidism PAST SURGICAL HISTORY Procedure Laterality Date ANOSCOPY DX W/COLLJ SPEC BR/WA SPX WHEN PRFRMD 02/22/2020 ARTHRP ACETBLR/PROX FEM PROSTC AGRFT/ALGRFT Left 01/2019 BONE MARROW TRANSPLANT, ALLOGENEIC 11/28/2014 CATARACT EXTRACTION HX Right 08/2016 DELIVERY ONLY x2 , low cervical COLECTOMY TOTAL W/ILEOANAL ANASTMS 06/20/2015 Ileostomy due to resection for bowel perforation ESOPHAGOGASTRODUODENOSCOPY TRANSORAL DIAGNOSTIC 09/06/2018 EGD IR IVC FILTER PLACEMENT 11/21/2015 Celect [place] LAPS SURG CHOLECYSTECTOMY W/CHOLANGIOGRAPHY 11/05/09 PICC LINE INSERT/CONSULT 06/28/2014 PICC LINE INSERT/CONSULT 03/12/2015 REMOVE TONSILS AND ADENOIDS; AGE 12 OVER Prior to Admission medications as of 04/11/25 0726 Medication Sig Last Dose Taking metoprolol tartrate, short acting, (LOPRESSOR) 25 mg tablet Take 1 tablet by mouth two times a day. 04/10/2025 Yes calcium carbonate 600 mg-cholecalciferol 400 units (CALCIUM WITH VITAMIN D) 600 mg-10 mcg (400 unit) tab Take 1 tablet by mouth once daily. 04/10/2025 Yes Cholecalciferol, Vitamin D3, 50 mcg (2,000 unit) cap Take 1 capsule by mouth once daily. 04/10/2025 Yes cyanocobalamin/cobamamide (B12 SUBLINGUAL) Dissolve under the tongue once daily. 04/10/2025 Yes Nebulizer and Compressor For Neb 1 Each twice daily. 04/10/2025 Yes Flaxseed Oil 1,000 mg cap Take 1,000 mg by mouth once daily. 04/10/2025 Yes esomeprazole (NEXIUM) 40 mg capsule TAKE 1 CAPSULE DAILY Unknown apixaban (ELIQUIS) 5 mg tab(s) Take 1 tablet by mouth two times a day. Unknown levothyroxine (SYNTHROID) 112 mcg tablet Take 1 tablet by mouth once daily. Take on empty stomach. For Thyroid ipratropium bromide (ATROVENT) 42 mcg (0.06 %) nasal spray Use 2 Sprays in the nose two times a day as needed. mometasone (NASONEX) 50 mcg/actuation nasal spray Use 2 Sprays in the nose once daily. Rinse mouth after use. Unknown guaiFENesin (MUCINEX) 1,200 mg Ta12 Take 1 tablet by mouth once daily. Unknown lifitegrast (XIIDRA) 5 % ophthalmic drops Use 1 Drop in both eyes two times a day. estradiol (ESTRACE) 0.01 % (0.1 mg/gram) vaginal cream Use 0.5 g vaginally two times a week. Unknown clobetasol (TEMOVATE) 0.05 % ointment Apply 1 application to affected area once daily. Unknown fluorometholone (FML LIQUID FILM) 0.1 % ophthalmic suspension Use 1 Drop in the left eye two times a day. Unknown erythromycin (ROMYCIN) 5 mg/gram (0.5 %) ophthalmic ointment Use 1 application in both eyes two times a day. Unknown Magnesium Glycinate (MAG GLYCINATE) 100 mg tab Take 1 tablet by mouth two times a day. Clobetasol Propionate 0.05 % gel Apply to affected area as needed. Unknown cholestyramine (QUESTRAN) 4 gram packet Take 1 Packet by mouth three times daily with meals. Unknown albuterol (PROVENTIL) 2.5 mg /3 mL (0.083 %) nebulizer solution Use 3 mL via nebulizer three times daily as needed for wheezing/shortness of breath. Inhale over 5-15 minutes Unknown lidocaine (XYLOCAINE) 5 % ointment Apply to affected area as needed (to urethral area). use a small amount to affected area qid prn pain sodium chloride (NEBUSAL) 3 % nebulizer solution Use 4 mL via nebulizer twice daily. Unknown albuterol HFA (PROAIR HFA) 90 mcg/actuation inhaler Inhale 2 Puffs as instructed every 4 hours as needed for wheezing/shortness of breath. Unknown 0.9 % sodium chloride (0.9% NACL) NURSING USE ONLY: USED FOR IMPLANTED VASCULAR ACCESS DEVICE (IVAD) ACCESS. AMBULATORY/OUTPATIENT: PLEASE REORDER UPON HOSPITAL DISCHARGE May access implanted vascular access device (IVAD) as needed for treatment. Flush IVAD with 10-20 mL NS every 4 weeks and PRN when IVAD not in use. Unknown sodium chloride (PRATIMA 128) 5 % ophthalmic solution Use 1 Drop in both eyes as needed. Unknown MULTIVITAMIN ORAL Take 1 tablet by mouth once daily. Unknown Lactobacillus acidophilus (PROBIOTIC ORAL) Take 1 capsule by mouth once daily. ALLERGIES Allergen Reactions Fish Containing Pro* Unknown Forteo [Teriparatid* Other: See Comments Hypercalcemia 08/2018 Gadolinium-Containi* Hives Iodinated Contrast * Hives Iodine [Contrast Dy* Hives Hives, sneezing Omnipaque [Iohexol] Hives Sneezing, pruritis (ears), and hive. Objective PHYSICAL EXAM: The remainder of the physical exam is noncontributory. AIRWAY: Mouth opening greater than 3 fingerbreadths: Yes Neck Full Range of Motion: Yes LUNGS: Lungs clear to auscultation CARDIAC: Regular rhythm,Regular rate Assessment/Plan ASA Class: ASA Class: Patient with severe systemic disease Active Problems: * No active hospital problems. * Resolved Problems: * No resolved hospital problems. * Exogenous Class 1 Obesity Medication and Non-Pharmacologic VTE Prophylaxis/Anticoagulants VTE Prophylaxis: NA Provisional Diagnosis/Treatment Plan: Colonoscopy Sedation Goal: Moderate SIGNATURE: Jenn Burton DO PATIENT NAME: Cong Smith DATE: April 11, 2025 TIME: 8:06 AM documented in this encounter [facility] 04-02-2025 Telephone encounter Note Prescription Refill Information The patient has been identified by name and date of : Yes Caregiver verified no other encounters exist for this prescription request: Yes Caregiver confirmed with patient/requestor that no other refills are due, in the near future, with this provider at this time: Yes The last office visit in the department: 03/07/2025 Does the patient have a future office visit with this provider/department: Yes Requested Prescriptions Pending Prescriptions Disp Refills esomeprazole (NEXIUM) 40 mg capsule [Pharmacy Med Name: ESOMEPRA MAG CAP 40MG DR] 90 capsule 3 Sig: TAKE 1 CAPSULE DAILY Pamela Godfrey LPN April 02, 2025 8:08 AM [facility] 04-02-2025 Miscellaneous Notes Prescription Refill Information The patient has been identified by name and date of : Yes Caregiver verified no other encounters exist for this prescription request: Yes Caregiver confirmed with patient/requestor that no other refills are due, in the near future, with this provider at this time: Yes The last office visit in the department: 03/07/2025 Does the patient have a future office visit with this provider/department: Yes Requested Prescriptions Pending Prescriptions Disp Refills esomeprazole (NEXIUM) 40 mg capsule [Pharmacy Med Name: ESOMEPRA MAG CAP 40MG DR] 90 capsule 3 Sig: TAKE 1 CAPSULE DAILY Pamela Godfrey LPN April 02, 2025 8:08 AM documented in this encounter [facility] 03-29-2025 History of Present illness Narrative HISTORY AND PHYSICAL Cong Mohamud Luis 1950 REFERRING PHYSICIAN: No ref. provider found CHIEF COMPLAINT: Consult (Rectal Bleeding/Mucus) HPI: The patient is a 75 year old female referred for endoscopy. Cong notes frequent leakage of mucus from her rectal stump. She also notes increased bleeding or what she assumes is blood from the rectal stump. Alexa has a previous history of AML and had severe [id number] disease requiring a subtotal colectomy on June 19, 2015. The patient notes she has episodically passed mucous from her rectum. Since earlier this year, the patient has noted occasionally passing blood per rectum and anal pain. She notes a sensation of pressure and with trying to pass the mucous as she has in the past, she noted significant blood in the toilet bowl and persistent anal pain afterwards. 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 Pathology returned as rectal mucosa with reactive lymphoid aggregates but no other abnormalities noted. Prior to this procedure the patient states she was having issues of difficulty passing any mucus and a feeling of pressure in her rectum. She now no longer notes a feeling of pressure in her rectum but does note she has mucus that is occasionally bloody leaking out very frequently. The patient is being seen by me today at the request of Dr. Baez for my opinion and advice regarding rectal stump bleeding. PAST MEDICAL HISTORY Diagnosis Date Abnormal echocardiogram 06/03/2017 Abnormality of gait 08/10/2016 Acute pulmonary embolism (HCC) 08/06/2015 --Patient presented with pleuritic Chest Pain, Heparin gtt initiated until PE ruled out --Negative for PE CT with PE protocol. Heparin drip was discontinued. PEPE (acute kidney injury) Non-oliguric renal failure. Creat increased to 1.6. Baseline sCr 0.6-1. --change fk to sirolimus. Resolved. 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 Dx 06/28/2014. -S/p induction with 7+3 + eltombopag (CASE 1493) course complicated by E.coli UTI and pulmonary nodule treated with posaconazole. -S/p 3 cycles of HiDAC, all courses complicated by neutropenic fevers and concern for worsening fungal pneumonia although this was not supported by cultures and bronchoscopy. 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 Treated w ganciclovir. 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 Lab draws: 11/28, 12/05, 12/12, 12/13, 4/, 01/09, 5/6, 6/10 Grade GVHD: every Wednesday starting 12/05, and prior to discharge. 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 Per LDT [facility] charges 08/22/15 S/P partial colectomy 06/20/2015 --06/20/2015- ex lap, subtotal colectomy, and end ileostomy SBO (small bowel obstruction) ([facility]) 01/25/2017 Secondary adrenal insufficiency ([facility]) 09/07/2016 Squamous cell carcinoma Left cheek Syncope Thrush 06/20/2022 Type 2 diabetes mellitus with microalbuminuria, without long-term current use of insulin ([facility]) 07/02/2016 Unspecified hypothyroidism PAST SURGICAL HISTORY Procedure Laterality Date ANOSCOPY DX W/COLLJ SPEC BR/WA SPX WHEN PRFRMD 02/22/2020 ARTHRP ACETBLR/PROX FEM PROSTC AGRFT/ALGRFT Left 01/2019 BONE MARROW TRANSPLANT, ALLOGENEIC 11/28/2014 CATARACT EXTRACTION HX Right 08/2016 DELIVERY ONLY x2 , low cervical COLECTOMY TOTAL W/ILEOANAL ANASTMS 06/20/2015 Ileostomy due to resection for bowel perforation ESOPHAGOGASTRODUODENOSCOPY TRANSORAL DIAGNOSTIC 09/06/2018 EGD IR IVC FILTER PLACEMENT 11/21/2015 Celect [place] LAPS SURG CHOLECYSTECTOMY W/CHOLANGIOGRAPHY 11/05/09 PICC LINE INSERT/CONSULT 06/28/2014 PICC LINE INSERT/CONSULT 03/12/2015 REMOVE TONSILS AND ADENOIDS; AGE 12 OVER Current Outpatient Medications Medication Sig metoprolol tartrate, short acting, (LOPRESSOR) 25 mg tablet Take 1 tablet by mouth two times a day. apixaban (ELIQUIS) 5 mg tab(s) Take 1 tablet by mouth two times a day. levothyroxine (SYNTHROID) 112 mcg tablet Take 1 tablet by mouth once daily. Take on empty stomach. For Thyroid ipratropium bromide (ATROVENT) 42 mcg (0.06 %) nasal spray Use 2 Sprays in the nose two times a day as needed. mometasone (NASONEX) 50 mcg/actuation nasal spray Use 2 Sprays in the nose once daily. Rinse mouth after use. guaiFENesin (MUCINEX) 1,200 mg Ta12 Take 1 tablet by mouth once daily. lifitegrast (XIIDRA) 5 % ophthalmic drops Use 1 Drop in both eyes two times a day. estradiol (ESTRACE) 0.01 % (0.1 mg/gram) vaginal cream Use 0.5 g vaginally two times a week. clobetasol (TEMOVATE) 0.05 % ointment Apply 1 application to affected area once daily. calcium carbonate 600 mg-cholecalciferol 400 units (CALCIUM WITH VITAMIN D) 600 mg-10 mcg (400 unit) tab Take 1 tablet by mouth once daily. esomeprazole (NEXIUM) 40 mg capsule TAKE 1 CAPSULE DAILY fluorometholone (FML LIQUID FILM) 0.1 % ophthalmic suspension Use 1 Drop in the left eye two times a day. erythromycin (ROMYCIN) 5 mg/gram (0.5 %) ophthalmic ointment Use 1 application in both eyes two times a day. Clobetasol Propionate 0.05 % gel Apply to affected area as needed. Cholecalciferol, Vitamin D3, 50 mcg (2,000 unit) cap Take 1 capsule by mouth once daily. cholestyramine (QUESTRAN) 4 gram packet Take 1 Packet by mouth three times daily with meals. albuterol (PROVENTIL) 2.5 mg /3 mL (0.083 %) nebulizer solution Use 3 mL via nebulizer three times daily as needed for wheezing/shortness of breath. Inhale over 5-15 minutes lidocaine (XYLOCAINE) 5 % ointment Apply to affected area as needed (to urethral area). use a small amount to affected area qid prn pain cyanocobalamin/cobamamide (B12 SUBLINGUAL) Dissolve under the tongue once daily. sodium chloride (NEBUSAL) 3 % nebulizer solution Use 4 mL via nebulizer twice daily. albuterol HFA (PROAIR HFA) 90 mcg/actuation inhaler Inhale 2 Puffs as instructed every 4 hours as needed for wheezing/shortness of breath. Nebulizer and Compressor For Neb 1 Each twice daily. Flaxseed Oil 1,000 mg cap Take 1,000 mg by mouth once daily. 0.9 % sodium chloride (0.9% NACL) NURSING USE ONLY: USED FOR IMPLANTED VASCULAR ACCESS DEVICE (IVAD) ACCESS. AMBULATORY/OUTPATIENT: PLEASE REORDER UPON HOSPITAL DISCHARGE May access implanted vascular access device (IVAD) as needed for treatment. Flush IVAD with 10-20 mL NS every 4 weeks and PRN when IVAD not in use. sodium chloride (PRATIMA 128) 5 % ophthalmic solution Use 1 Drop in both eyes as needed. MULTIVITAMIN ORAL Take 1 tablet by mouth once daily. Lactobacillus acidophilus (PROBIOTIC ORAL) Take 1 capsule by mouth once daily. Magnesium Glycinate (MAG GLYCINATE) 100 mg tab Take 1 tablet by mouth two times a day. No current facility-administered medications for this visit. ALLERGIES: Fish Containing Products, Forteo [Teriparatide], Gadolinium-Containing Contrast Media, Iodinated Contrast Media, Iodine [Contrast Dye], and Omnipaque [Iohexol] PERSONAL HISTORY: Social History Tobacco Use Smoking status: Never Smokeless tobacco: Never Vaping Use Vaping status: Never Used Substance Use Topics Alcohol use: Not Currently Comment: Quit 2013, previously 1-2 drinks per year Drug use: Never FAMILY HISTORY: FAMILY HISTORY Problem Relation Age of Onset Cataract Father other (Cancer, liver) Father Liver cancer at 84 Diabetes Mother Osteoporosis Mother Cataract Mother other (chf) Mother other (dementia) Mother vascular Cataract Brother Thyroid Brother antibodies in thyroid Cataract Brother Thyroid Brother other (MTHFR) Brother and his children are positive as well No Ocular Disease Maternal Grandmother other (encelphalitis) Maternal Grandmother Heart Maternal Grandfather mi in his 70 No Ocular Disease Maternal Grandfather Alzheimer's Disease Paternal Grandmother No Ocular Disease Paternal Grandmother No Ocular Disease Paternal Grandfather REVIEW OF SYMPTOMS: The review of systems data was entered by the nurse and reviewed by me There are no exam notes on file for this visit. PHYSICAL EXAMINATION: General: The patient is 75 year old female, well nourished, well hydrated in no acute distress. The patient is oriented to time, place, and person. VITALS: Blood pressure 144/84, pulse 74, height 148.6 cm (4' 10.5), weight 74.8 kg (165 lb), SpO2 93%. Body mass index is 33.9 kg/m . HEENT: Normal cephalic, ataumatic, pupils are equally round, sclera are anicteric, mucous membranes are moist, oropharynx is clear. Neck has no masses, asymmetry or lymphadenopathy. Thyroid is unremarkable. Respiratory: Clear to auscultation and percussion. Normal respiratory excursion and pattern. Cardiac: Examination is regular rate and rhythm. Abdominal exam: Soft, nontender, with no palpable masses. No hepatosplenomegaly. No palpable hernias. Rectal exam: exam deferred Extremities: no clubbing, cyanosis or edema. No adenopathy. Other: LABORATORY VALUES: As Noted RADIOLOGIC STUDIES: As Noted Assessment IMPRESSION: Mucus with some bloody discharge from rectal stump PLAN: I plan to perform lower endoscopy. We discussed the risks and benefits of the planned endoscopy. I have informed the patient that complications can occur including failure to complete the endoscopy and perforation. The patient had the opportunity to ask questions concerning the planned endoscopy. My staff has also explained the procedure to the patient in understandable terms and has given the patient printed material concerning the procedure. The patient freely consents to surgery. The patient needs no bowel prep Diagnoses: (K62.5) Rectal bleeding (primary encounter diagnosis) My findings have been communicated to Dr. Baez via shared medical record. This note will be forwarded to Dr. Lidia Lopez MD. Return to Clinic: The patient is instructed to follow-up with me after the testing has been completed. Jonathan Posey MD REVIEW OF SYSTEMS: General: The patient NOTES fatigue, denies weight loss, denies weight gain, denies feeling hot, and denies feelings of cold. Eyes: The patient denies glaucoma, denies eye injury/surgery, does not wear glasses or contacts. Ear/Nose/Throat: The patient denies allergies, denies hayfever, denies ear infections, and denies bloody noses. Cardiovascular: The patient denies chest pain, denies heart disease, denies high blood pressure, denies high cholesterol, and denies poor circulation. Respiratory: The patient denies tuberculosis, denies pneumonia, denies frequent cough, NOTES shortness of breath, and denies coughing up blood. Gastrointestinal: The patient NOTES difficulty swallowing, NOTES acid reflux, denies ulcers, denies jaundice/hepatitis, denies gallbladder problems, denies vomiting, denies black or tarry stools, denies hemorrhoids, denies bleeding from rectum, denies diverticulitis, denies constipation, denies diarrhea, denies loss of stool control, and denies hernias. Kidney/Bladder: The patient denies kidney stones, denies urine infections, and denies bloody urine. Skin: The patient NOTES a history of skin cancer, denies bleeding/changing moles, and denies a history of skin rash. Neurologic: The patient denies a history of epilepsy/convulsions, denies headaches, denies head/spinal injuries, and denies stroke/TIA. Psychiatric: The patient denies psychiatric medications, denies depression, and denies voices. Endocrine: The patient NOTES thyroid disorders, denies diabetes, and denies hormonal problems. Hematologic: The patient NOTES a history of bruising, denies bleeding, and denies anemia. Infections: The patient NOTES a history of measles and mumps, denies rheumatic fever, and denies sexually transmitted diseases. Musculoskeletal: The patient denies back pain/injury, denies back problems, denies sciatica, denies knee/foot trouble, NOTES arthritis, or denies gout. documented in this encounter [facility] 03-29-2025 Instructions Jonathan Posey MD - 03/29/2025 9:07 AM EDT We discussed your rectal stump and recent symptoms: - You reported increased mucus discharge from your rectal stump, which now occurs frequently and without control. You also noted a change in the appearance of the discharge, describing it as a stream of red blood rather than the usual thick, grayish mucus. - I explained that the rectal stump can develop disused proctitis (inflammation due to lack of use) and that periodic monitoring is important, as there is still a risk of developing polyps or cancer in the remaining rectal tissue, even though it is not connected to your GI tract. - I recommended a flexible sigmoidoscopy to evaluate the rectal stump for any abnormalities, including polyps, cancer, or significant inflammation. You agreed to proceed with this procedure. - No bowel preparation is required for this procedure. - My makeup editor will contact you to arrange the appointment at the same location where your previous procedure was performed, with sedation provided. We discussed potential management options for your symptoms: - If the flexible sigmoidoscopy shows significant inflammation (disused proctitis), I may recommend steroid enemas or suppositories to reduce irritation and mucus production. - If the mucus discharge is not due to significant inflammation but remains bothersome, you may use regular enemas periodically to help clear mucus and reduce unexpected discharge. We discussed your medical history: - You had a total colectomy in 2015 and a procedure in 2020 to widen the opening of your rectal stump due to stenosis and mucus retention. - You are at increased risk for secondary cancers due to your history of dycac-nexhjb-bytv disease and immunosuppressive therapy. This further supports the need for periodic monitoring of the rectal stump. Next steps: - My makeup editor will contact you to arrange the flexible sigmoidoscopy. Please let us know if you have any questions or concerns before the procedure. - If you experience worsening symptoms, such as significant bleeding, severe pain, or other concerning changes, please contact our office immediately. documented in this encounter [facility] 03-28-2025 History of Present illness Narrative This note was created using [employer]. Subjective Cong Smith is a 75 year old female. SUBJECTIVE: Alexa Smith is a 75-year-old female with a history of cancer, presenting for a 6-month follow-up. Alexa reports recent lab results indicating slightly low protein levels, with a total protein of 6.2 g/dL (normal range: 6.3-8.2 g/dL) and albumin of 3.8 g/dL (normal range: 3.9-5.0 g/dL). She consumes a protein shake with 30 grams of protein every morning and has recently added [employer] high-protein yogurt to her lunch. She denies any recent illnesses but reports persistent fatigue, which she notes is common among others with a similar cancer history. She also reports dyspnea, particularly in hot and humid weather, and experienced significant lower extremity edema during a recent trip to [place], where she used a mobility scooter at [place]. Her heart rate was 125 bpm while sitting still on the scooter. The edema usually resolved by the next morning after elevating her legs at night. She wore compression socks during the flight to [place]. Alexa reports myalgia, particularly in the lower legs, describing the muscles as painful to touch and move. She inquires about the possibility of arthritis in the muscles and mentions a suggestion for a deep muscle massage. She also notes a fear of uhorj-pmwdth-syyx disease (GVHD) of the muscles, although her doctor does not think this is the case. She has not pushed for a biopsy but is not convinced that the pain is unrelated to her transplant. She reports weight gain of approximately 15 lbs over the past 1.5 years and expresses a desire to lose weight. She has been working with a truck dock material mover, who recommended dissolvable B12 and gummy vitamins, as well as dietary changes to help with bowel management. She has been eating a half peanut butter and jelly sandwich with cottage cheese for lunch but plans to switch to high-protein yogurt. She expresses a fear that dieting may stress her body and potentially cause cancer recurrence, citing a friend's experience. Alexa reports variable sleep quality and has been using supplemental oxygen at 1.0 L/min following a sleep study that ruled out sleep apnea. She uses a portable oxygen concentrator and notes that she sometimes wakes up with a dry mouth, suspecting mouth breathing, but finds that the oxygen helps prevent headaches. She mentions a history of severe osteoporosis and was previously on Forteo for 2 years, which caused hypercalcemia. She is currently taking calcium pills and inquires about the need for calcium level monitoring. She has been engaging in weight-bearing exercises to improve bone density and reports improvement in back pain. She denies current back issues or sciatica. PAST MEDICAL HISTORY Diagnosis Date Abnormal echocardiogram 06/03/2017 Abnormality of gait 08/10/2016 Acute pulmonary embolism (HCC) 08/06/2015 --Patient presented with pleuritic Chest Pain, Heparin gtt initiated until PE ruled out --Negative for PE CT with PE protocol. Heparin drip was discontinued. PEPE (acute kidney injury) Non-oliguric renal failure. Creat increased to 1.6. Baseline sCr 0.6-1. --change fk to sirolimus. Resolved. 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 Dx 06/28/2014. -S/p induction with 7+3 + eltombopag (CASE 1493) course complicated by E.coli UTI and pulmonary nodule treated with posaconazole. -S/p 3 cycles of HiDAC, all courses complicated by neutropenic fevers and concern for worsening fungal pneumonia although this was not supported by cultures and bronchoscopy. 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 Treated w ganciclovir. 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 Lab draws: 11/28, 12/05, 12/12, 12/13, 12/26, 01/09, 5/6, 02/2710 Grade GVHD: every Wednesday starting 12/05, and prior to discharge. 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 Per LDT [facility] charges 08/22/15 S/P partial colectomy 06/20/2015 --06/20/2015- ex lap, subtotal colectomy, and end ileostomy SBO (small bowel obstruction) ([facility]) 01/25/2017 Secondary adrenal insufficiency ([facility]) 09/07/2016 Squamous cell carcinoma Left cheek Syncope Thrush 06/20/2022 Type 2 diabetes mellitus with microalbuminuria, without long-term current use of insulin ([facility]) 07/02/2016 Unspecified hypothyroidism Current Outpatient Medications Medication Sig metoprolol tartrate, short acting, (LOPRESSOR) 25 mg tablet Take 1 tablet by mouth two times a day. apixaban (ELIQUIS) 5 mg tab(s) Take 1 tablet by mouth two times a day. levothyroxine (SYNTHROID) 112 mcg tablet Take 1 tablet by mouth once daily. Take on empty stomach. For Thyroid ipratropium bromide (ATROVENT) 42 mcg (0.06 %) nasal spray Use 2 Sprays in the nose two times a day as needed. mometasone (NASONEX) 50 mcg/actuation nasal spray Use 2 Sprays in the nose once daily. Rinse mouth after use. guaiFENesin (MUCINEX) 1,200 mg Ta12 Take 1 tablet by mouth once daily. lifitegrast (XIIDRA) 5 % ophthalmic drops Use 1 Drop in both eyes two times a day. estradiol (ESTRACE) 0.01 % (0.1 mg/gram) vaginal cream Use 0.5 g vaginally two times a week. clobetasol (TEMOVATE) 0.05 % ointment Apply 1 application to affected area once daily. calcium carbonate 600 mg-cholecalciferol 400 units (CALCIUM WITH VITAMIN D) 600 mg-10 mcg (400 unit) tab Take 1 tablet by mouth once daily. fluorometholone (FML LIQUID FILM) 0.1 % ophthalmic suspension Use 1 Drop in the left eye two times a day. erythromycin (ROMYCIN) 5 mg/gram (0.5 %) ophthalmic ointment Use 1 application in both eyes two times a day. Clobetasol Propionate 0.05 % gel Apply to affected area as needed. Cholecalciferol, Vitamin D3, 50 mcg (2,000 unit) cap Take 1 capsule by mouth once daily. cholestyramine (QUESTRAN) 4 gram packet Take 1 Packet by mouth three times daily with meals. albuterol (PROVENTIL) 2.5 mg /3 mL (0.083 %) nebulizer solution Use 3 mL via nebulizer three times daily as needed for wheezing/shortness of breath. Inhale over 5-15 minutes lidocaine (XYLOCAINE) 5 % ointment Apply to affected area as needed (to urethral area). use a small amount to affected area qid prn pain cyanocobalamin/cobamamide (B12 SUBLINGUAL) Dissolve under the tongue once daily. sodium chloride (NEBUSAL) 3 % nebulizer solution Use 4 mL via nebulizer twice daily. albuterol HFA (PROAIR HFA) 90 mcg/actuation inhaler Inhale 2 Puffs as instructed every 4 hours as needed for wheezing/shortness of breath. Nebulizer and Compressor For Neb 1 Each twice daily. Flaxseed Oil 1,000 mg cap Take 1,000 mg by mouth once daily. 0.9 % sodium chloride (0.9% NACL) NURSING USE ONLY: USED FOR IMPLANTED VASCULAR ACCESS DEVICE (IVAD) ACCESS. AMBULATORY/OUTPATIENT: PLEASE REORDER UPON HOSPITAL DISCHARGE May access implanted vascular access device (IVAD) as needed for treatment. Flush IVAD with 10-20 mL NS every 4 weeks and PRN when IVAD not in use. sodium chloride (PRATIMA 128) 5 % ophthalmic solution Use 1 Drop in both eyes as needed. MULTIVITAMIN ORAL Take 1 tablet by mouth once daily. Lactobacillus acidophilus (PROBIOTIC ORAL) Take 1 capsule by mouth once daily. esomeprazole (NEXIUM) 40 mg capsule TAKE 1 CAPSULE DAILY Magnesium Glycinate (MAG GLYCINATE) 100 mg tab Take 1 tablet by mouth two times a day. No current facility-administered medications for this visit. Review of Systems Objective BP 147/81 (BP Site: Left Arm, BP Position: Sitting, BP Cuff Size: Regular Adult) Pulse 72 Wt 74.8 kg (165 lb) SpO2 97% BMI 34.49 kg/m Physical Exam Latest Ref Rng 03/06/2024 06/01/2024 09/05/2024 03/07/2025 WBC 3.70 - 11.00 k/uL 7.53 6.45 7.04 6.80 RBC 3.90 - 5.20 m/uL 4.42 4.30 4.36 4.17 Hemoglobin 11.5 - 15.5 g/dL 14.8 14.6 14.6 14.0 Hematocrit 36.0 - 46.0 % 43.5 42.9 42.4 41.0 MCV 80.0 - 100.0 fL 98.4 99.8 97.2 98.3 MCH 26.0 - 34.0 pg 33.5 34.0 33.5 33.6 MCHC 30.5 - 36.0 g/dL 34.0 34.0 34.4 34.1 RDW-CV 11.5 - 15.0 % 15.3 (H) 14.3 14.8 15.7 (H) Platelet Count 150 - 400 k/uL 238 224 215 225 MPV 9.0 - 12.7 fL 10.0 10.7 10.0 10.2 Neut% % 28.6 33.7 28.8 36.3 Abs Neut (ANC) 1.45 - 7.50 k/uL 2.15 2.18 2.03 2.47 Lymph% % 58.2 48.7 55.3 44.9 Abs Lymph 1.00 - 4.00 k/uL 4.38 (H) 3.14 3.89 3.05 [place]% % 8.9 12.1 9.8 12.8 Abs [place] <0.87 k/uL 0.67 0.78 0.69 0.87 (H) Eosin% % 3.7 4.5 5.7 5.3 Abs Eosin <0.46 k/uL 0.28 0.29 0.40 0.36 Baso% % 0.5 0.8 0.4 0.6 Abs Baso <0.11 k/uL 0.04 0.05 0.03 0.04 Immature Gran % % 0.1 0.2 0.0 0.1 IMMATURE GRANS (ABS) <0.10 k/uL <0.03 <0.03 <0.03 <0.03 NRBC /100 WBC 0.0 0.0 0.0 0.0 Absolute nRBC <0.01 k/uL <0.01 <0.01 <0.01 <0.01 DTYPE Auto Auto Auto Auto Protein, Total 6.3 - 8.0 g/dL 6.6 6.7 6.9 6.2 (L) Albumin 3.9 - 4.9 g/dL 4.0 3.9 4.2 3.8 (L) Calcium 8.5 - 10.2 mg/dL 9.2 9.2 9.3 9.3 Bilirubin, Total 0.2 - 1.3 mg/dL 0.5 0.3 0.3 0.3 Alkaline Phosphatase 34 - 123 U/L 106 102 109 90 AST 13 - 35 U/L 30 28 27 31 ALT 7 - 38 U/L 29 24 28 32 Glucose 74 - 99 mg/dL 122 (H) 104 (H) 97 106 (H) BUN 7 - 21 mg/dL 21 26 (H) 29 (H) 25 (H) Creatinine 0.58 - 0.96 mg/dL 0.80 0.79 0.81 0.69 Sodium 136 - 144 mmol/L 138 138 138 137 Potassium 3.7 - 5.1 mmol/L 3.7 4.1 3.9 3.7 Chloride 98 - 107 mmol/L 106 105 103 105 CO2 22 - 30 mmol/L 21 (L) 22 23 20 (L) Anion Gap 8 - 15 mmol/L 11 11 12 12 eGFR >=60 mL/min/1.73m 78 79 77 91 Hemoglobin A1C 4.3 - 5.6 % 5.3 5.3 5.4 Estimated Average Glucose mg/dL 105 105 108 Vitamin D 25 Hydroxy 31.0 - 80.0 ng/mL 75.9 69.4 79.6 TSH 0.270 - 4.200 mIU/L 0.756 3.270 1.710 Free T4 0.9 - 1.7 ng/dL 1.6 1.5 Magnesium 1.7 - 2.3 mg/dL 1.9 2.0 1.9 Free T3 2.3 - 4.1 pg/mL 2.9 Vitamin B12 232 - 1,245 pg/mL 982 1,123 Legend: (H) High (L) Low Assessment and Plan # Bilateral lower extremity edema (R60.0) - Edema noted during recent vacation in [place], exacerbated by hot and humid weather; resolved overnight with leg elevation. - Discussed pathophysiology of edema related to vasodilation and lymphatic system. - Advised intermittent leg elevation during the day to facilitate fluid return. # Class 1 obesity due to excess calories with body mass index (BMI) of 34.0 to 34.9 in adult, unspecified whether serious comorbidity present (E66.811) - Current BMI within Class 1 obesity range. - Discussed dietary modifications including portion control, reducing carbohydrate intake, and increasing protein consumption. - Patient expressed interest in weight loss; educated on the importance of gradual, sustainable changes rather than drastic calorie restriction. - Informed about upcoming shared medical appointment program for weight loss, which includes multidisciplinary support; patient interested in participating. # Myalgia (M79.10) - Generalized muscle pain, particularly in lower extremities. - Discussed potential causes including medication side effects and inflammation. - Ordered CK level to assess for muscle enzyme abnormalities. - Recommended starting with mild massage therapy to improve circulation and alleviate muscle tightness. # Encounter for long-term current use of medication (Z79.899) - Continues on metoprolol 25 mg BID; discussed potential side effect of fatigue. - Reviewed current medication regimen; no changes at this time. # Acquired hypothyroidism (E03.9) - Recent TSH level at 1.7, within target range. - Ordered comprehensive thyroid panel including T3 and T4 for next lab evaluation. # Vitamin D deficiency (E55.9) - Current vitamin D levels stable. - Continue current supplementation as prescribed. # Ileostomy present (HCC) (Z93.2) - Discussed dietary adjustments to manage ileostomy output, including high-protein yogurt and avoiding high-fructose corn syrup. - Advised monitoring for signs of dehydration and ensuring adequate fluid intake. # Chronic fatigue (R53.82) - Persistent fatigue noted; discussed multifactorial etiology including medication side effects and post-transplant status. - Advised on the importance of adequate sleep and regular follow-up with sleep specialist. - Scheduled re-evaluation in six months to monitor progress. # Primary hypertension (I10) - Blood pressure management with metoprolol 25 mg BID; no changes at this time. - Continue monitoring blood pressure regularly. Lidia Lopez MD Recording using [employer] software for draft documentation of the visit was discussed with the patient/authorized access services representative; all questions welcomed and answered. Patient/authorized access services representative agreed to proceed documented in this encounter [facility] 03-16-2025 Progress note Formatting of t his note might be different from the original. 03/28 OV [facility] 03-16-2025 Miscellaneous Notes 03/28 OV documented in this encounter [facility] 03-07-2025 History of Present illness Narrative Diagnosis: 1) 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 2) GVHD of the GI tract, liver, oral mucosa, vaginal mucosa and conjunctiva. HPI: The patient is a 75 yo female who was diagnosed with FLT3 ITD+/NPM1+ AML after presenting with chest pain. She received 7+3 and eltrombopag (CASE 1493) for induction. Her induction course was complicated by chest pain of unclear etiology and a skin rash likely due to cytarabine or zosyn. She had a UTI (E. coli) as well as noted pulmonary nodules on CT scan chest 07/13/2014. She was treated with posaconazole on 07/18/2014 since lesions appeared while on voriconazole. Discharged [facility] 11/03/2014 following cycle #3 HiDAC. 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 Did very well for first 100 days and was tolerating steroid taper. Several days after going home, developed nausea/vomiting. Culminated in total colectomy. Per discharge summary 08/20/2015: Ms. Smith is a 65 year old female who presents from [facility] with positive V/Q scan c/w intermediate risk of pulmonary embolism. 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 She presented to [facility] 08/06 with chest pain. Her pain is described as left and right sided with left sided shoulder pain. Some dyspnea that she attributes to pain not difficulty getting breath in. She denies radiation to her jaw or back, no diaphoresis, no heaviness. She has an allergy to iodine and omnipaque so it was not possible to do a CTPE for she had a V/Q scan which showed intermediate probability for PE. While at [facility] Dr. Welch from oncology saw the patient and had no further recs. Pulmonary saw the patient as well and had no further recs. Cardiology evaluated the patient and felt that her troponin elevation is most likely secondary to her PE which was of high suspicion given immobility and malignancy. He suggested aspirin, continue beta neda, hold statin, noted chronic RBBB. Troponins were 0.098 and 0.121. On admission here she is HDS, conversant, some residual left shoulder pain but improved overall, no fevers, chills, night sweats and limited SOB. No diarrhea, dysuria, cough, headaches. Last two hospitalizations: 06/04-06/19 Developed E. Coli bacteriemia and was treated with a full course of meropenem. She resides at [place] currently. 06/19-07/10 Recently admitted where she developed pneumatosis coli and was taken to surgery where she got a subtotal colectomy with end ileostomy. Had a full course of CMV treatment with ganciclovir, followed by ID. Hospital Course: Mrs Smith was admitted to the MICU and placed on a heparin drip for suspected pulmonary embolism. CT scan with PE protocol was negative for pulmonary embolism and the heparin drip was stopped. Once stabilized she was transferred to the BMT unit. [place] U/A and urine culture showed a UTI d/t a multi resistant E.Coli which was treatet with a week course of IV cetriaxone. Her hospital course was further complicated by atrial fibrillation with rapid ventricular response. This required transfer to cardiology ICU for continuous infusion amiodarone for hrt rate control. Her Coreg and norvasc was stopped due to low blood pressure. She was transitioned to oral Amiodarone, and her multiple medications were adjusted for interactions i.e ppx cipro and posa were dc'd. PT/OT recommended SNF upon discharge, final placement arrangements were made and she was transferred to [facility] Underwent ileoscopy on 08/17/2018 for potential GI bleed/GVHD. At approximately 28 cm proximal to the stoma one semi-pedunculated nonbleeding polyp was identified. It was 4 mm in diameter. Biopsies were obtained. Otherwise the examined portion of the ileum was normal. Pathology: 1. Ileum, biopsy (A) - Small intestinal mucosa with architectural distortion and occasional apoptotic bodies. See comment. 2. Ileum polyp, biopsy (B) - Small intestinal mucosa with architectural distortion and pyloric gland metaplasia, see comment. COMMENT The patient's history of rhfli-xildte-rlww disease (GVHD) is noted. In the current specimen, only occasional apoptotic bodies are present, and do not meet our threshold for a diagnosis of GVHD (greater than 1 apoptotic body per piece of tissue). However, given their presence, some component of GVHD activity cannot be entirely ruled out. Both biopsies show evidence of chronic mucosal injury, possibly from prior GVHD. Chronic infection, chronic ischemia and chronic drug/medication injury could also produce these histologic features. An immunostain for CMV will be obtained and the results will be reported as an addendum. EGD on 08/31/2018. She was observed to have localized, moderate inflammation characterized by erosions, erythema and friability as well as serpentine ulcerations in the gastric antrum. Biopsies were obtained. The examined duodenum was normal. The lower third and middle third of the esophagus were both normal. Patient was advised to use sucralfate in addition to her proton pump inhibitor. Pathology: 1. Duodenum, biopsy (A) - Duodenal mucosa with minimal crypt apoptosis. 2. Antrum, biopsy (B) - Antral mucosa with chronic active inflammation and features of erosion. - See comment. 3. Esophagogastric junction, biopsy (C) - Reactive squamous mucosa and inflamed cardiac mucosa. - No evidence of intestinal metaplasia or dysplasia. 4. Mid esophagus, biopsy (D) - Mildly reactive squamous mucosa with rare intraepithelial eosinophils (up to 2 eosinophils in a single high power field). COMMENT The level of apoptotic activity seen the duodenum biopsy (part A) is insufficient to warrant a diagnosis of GVHD. H. pylori and CMV immunostains performed on the antrum biopsy (part B) to evaluate the chronic active inflammation are both negative. Underwent left hip replacement in January 2019. Was seen by gynecology at the beginning of April 2022 for vaginal and vulvar pain. It had come on a few days prior. She continued clobetasol Monistat without any relief. [place] like entire area was swollen and sore. Seen by primary care physician in mid April 2022. Was having increasing leg pain. Was directed to the ED at [facility]. Evidently noncontrast CT demonstrated no etiology for pain. Pain continued to worsen and she presented to [facility] on 05/18/2022. She underwent a right lower extremity venous duplex exam which showed acute DVT in the right lower extremity in the right distal external iliac vein, right common femoral vein, right femoral vein, right deep femoral vein and right posterior tibial vein. Acute clot was also noted in the right greater saphenous vein. She was started on anticoagulation with Eliquis. Presents for ongoing oncologic management. Interim history: Had flare of bronchiectasis in December. Was started on doxycycline. Hearing got significantly worse. No fever. Saw Dr. Edgar--tubes and Rx Omnicef. Hearing back to baseline. No other acuter illnesses. Fatigued. Generalized muscle aches. Has been having bleeding from rectal stump. Has been going on about 6 months. No pain. Typically occurs with urination. PMH, medications and allergies personally reviewed by me today. Any changes documented in appropriate section. PHYSICAL EXAM: Vitals: Blood pressure 128/84, pulse 74, temperature 36.7 C (98 F), temperature source Temporal, weight 75.8 kg (167 lb), SpO2 94%. Well-appearing and in no acute distress. EYES: Sclerae are anicteric bilaterally. LYMPHATIC: There is no palpable cervical or supraclavicular adenopathy. CARDIOVASCULAR: Rhythm is regular. ABDOMEN: The abdomen is nondistended. SKIN: No jaundice. 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 -Previous GVHD symptoms of the vaginal area, mouth and GI tract resolved. -Reviewed labs and results of most recent echo with her. Plan: -OV with labs in 6 months. (Z86.718) History of DVT (deep vein thrombosis) Assessment: -Patient has history of left-sided lower extremity DVT. She had been off Eliquis for about a year. Restarted when had acute DVT right leg 04/2022. -Has IVC filter in place. -Has been tolerating apixaban at anticoagulant doses. -Discussed leg weakness/immobility as a ongoing risk. -Rectal bleeding--CBC doesn't suggest iron deficiency so okay to continue apixaban until able to assess rectal bleeding. Plan: -Continue apixaban twice daily. Rectal bleeding. Assessment: -Reviewed original operative note from 2014. Subtotal colectomy down to peritoneal reflection of rectum. Plan: -Referral to Dr. Posey for assessment. -Advised holding apixaban day prior to and day after consultation. Portions of this documentation were copied and pasted from my previous office visit note dated 09/05/2024 in order to provide a cohesive continuity of the history. The note has been reviewed and edited and updated as necessary. I spent a total of 20 minutes on the date of the service which included oerl-im-vyad patient care, completing clinical documentation, obtaining and/or reviewing separately obtained history, counseling and educating the patient/family/caregiver, ordering medications, tests, or procedures, communicating with other HCPs (not separately reported), and communicating results to the patient/family/caregiver. Clare Baez DO documented in this encounter [facility] 02-26-2025 Telephone encounter Note Patient has been identified by name and date of : Yes, Provider Date 02/26/25 Time 11:42 am Patient phones for refill(s): Requested Prescriptions Pending Prescriptions Disp Refills apixaban (ELIQUIS) 5 mg tab(s) 180 tablet 3 Sig: Take 1 tablet by mouth two times a day. Date of last office visit in primary care: 09/21/2024 Date of next office visit in primary care: 03/28/2025 Please advise. Thank you. Elissa Banda. [facility] 02-26-2025 Miscellaneous Notes Patient has been identified by name and date of : Yes, Provider Date 02/26/25 Time 11:42 am Patient phones for refill(s): Requested Prescriptions Pending Prescriptions Disp Refills apixaban (ELIQUIS) 5 mg tab(s) 180 tablet 3 Sig: Take 1 tablet by mouth two times a day. Date of last office visit in primary care: 09/21/2024 Date of next office visit in primary care: 03/28/2025 Please advise. Thank you. Elissa Ray Pss. documented in this encounter [facility] 02-26-2025 Telephone encounter Note Patient's request for medication is as follows: Requested Prescriptions Pending Prescriptions Disp Refills metoprolol tartrate, short acting, (LOPRESSOR) 25 mg tablet 180 tablet 3 Sig: Take 1 tablet by mouth two times a day. Patient was last seen on : 07/31/24 Next Scheduled on : 07/30/25 Prescription(s) as above. Please process accordingly. Kyung Sutton MA [facility] 02-26-2025 Miscellaneous Notes Patient's request for medication is as follows: Requested Prescriptions Pending Prescriptions Disp Refills metoprolol tartrate, short acting, (LOPRESSOR) 25 mg tablet 180 tablet 3 Sig: Take 1 tablet by mouth two times a day. Patient was last seen on : 07/31/24 Next Scheduled on : 07/30/25 Prescription(s) as above. Please process accordingly. Kyung Sutton MA documented in this encounter [facility] 01-22-2025 History of Present illness Narrative Images from the original note were not included. . [facility] Note Patient name: Cong Smith PCP: Lidia Lopez MD CC: Follow-up bronchiectasis HPI: Cong Smith 74 year old female non-smoker with PMH significant for AF, VTE s/p IVC filter, long-term use of AC, AML s/p allogenic bone marrow transplant 2014, yrkor-uoelsi-epok disease (GI tract, liver, mucosa, eyes), GERD, HTN, s/p ileostomy, DM, hypothyroidism and bronchiectasis presenting for follow-up. Current therapy consists of bronchopulmonary hygiene with hypertonic saline and Acapella device. She requires oxygen at night, negative sleep study for VAL[place]. Recent evaluation in urgent care for bronchiectasis flare. Started on doxycycline, chest x-ray unremarkable. Was subsequently seen by ENT for significant sinus and ear infection, antibiotic changed to Omnicef. Low grade temp, extreme fatigue. No hemoptysis. She has baseline dyspnea with exertion. She actually participated in pulmonary rehab for about a month which was not significantly helpful. Cardiac evaluation only significant for mild diastolic dysfunction. Suspect her dyspnea on exertion is related to deconditioning and her obesity. DME: [employer] 1 L nocturnal DATA: PFT 07/2024: Spirometry shows no major airflow obstruction, mild restriction, normal diffusion Imaging / Diagnostic Studies: CXR 01/13/25: I personally reviewed the images which shows chronic changes and no acute infiltrate PAST MEDICAL HISTORY Diagnosis Date Abnormal echocardiogram 06/03/2017 Abnormality of gait 08/10/2016 Acute pulmonary embolism (HCC) 08/06/2015 --Patient presented with pleuritic Chest Pain, Heparin gtt initiated until PE ruled out --Negative for PE CT with PE protocol. Heparin drip was discontinued. PEPE (acute kidney injury) Non-oliguric renal failure. Creat increased to 1.6. Baseline sCr 0.6-1. --change fk to sirolimus. Resolved. 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 Dx 06/28/2014. -S/p induction with 7+3 + eltombopag (CASE 1493) course complicated by E.coli UTI and pulmonary nodule treated with posaconazole. -S/p 3 cycles of HiDAC, all courses complicated by neutropenic fevers and concern for worsening fungal pneumonia although this was not supported by cultures and bronchoscopy. 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 Treated w ganciclovir. 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 Lab draws: 11/28, 12/05, 12/12, 12/13, 4/8, 4/22, 5/6, 6/10 Grade GVHD: every Wednesday starting 12/05, and prior to discharge. Pseudophakia of both eyes RBBB (right bundle branch block) 10/01/2015 RUQ abdominal pain S/P bone marrow transplant ([facility]) 08/27/2015 AML. Per LDT [facility] charges 08/22/15 S/P partial colectomy 06/20/2015 --06/20/2015- ex lap, subtotal colectomy, and end ileostomy SBO (small bowel obstruction) ([facility]) 01/25/2017 Secondary adrenal insufficiency ([facility]) 09/07/2016 Squamous cell carcinoma Left cheek Syncope Thrush 06/20/2022 Type 2 diabetes mellitus with microalbuminuria, without long-term current use of insulin ([facility]) 07/02/2016 Unspecified hypothyroidism ALLERGIES Allergen Reactions Fish Containing Pro* Unknown Forteo [Teriparatid* Other: See Comments Hypercalcemia 08/2018 Gadolinium-Containi* Hives Iodinated Contrast * Hives Iodine [Contrast Dy* Hives Hives, sneezing Omnipaque [Iohexol] Hives Sneezing, pruritis (ears), and hive. cefdinir (OMNICEF) 300 mg capsule Take 300 mg by mouth two times a day. levothyroxine (SYNTHROID) 112 mcg tablet Take 1 tablet by mouth once daily. Take on empty stomach. For Thyroid apixaban (ELIQUIS) 5 mg tab(s) Take 1 tablet by mouth two times a day. Patient needs to fill before will be out of town for 3 months so can take med with her ipratropium bromide (ATROVENT) 42 mcg (0.06 %) nasal spray Use 2 Sprays in the nose two times a day as needed. mometasone (NASONEX) 50 mcg/actuation nasal spray Use 2 Sprays in the nose once daily. Rinse mouth after use. guaiFENesin (MUCINEX) 1,200 mg Ta12 Take 1 tablet by mouth once daily. lifitegrast (XIIDRA) 5 % ophthalmic drops Use 1 Drop in both eyes two times a day. estradiol (ESTRACE) 0.01 % (0.1 mg/gram) vaginal cream Use 0.5 g vaginally two times a week. clobetasol (TEMOVATE) 0.05 % ointment Apply 1 application to affected area once daily. calcium carbonate 600 mg-cholecalciferol 400 units (CALCIUM WITH VITAMIN D) 600 mg-10 mcg (400 unit) tab Take 1 tablet by mouth once daily. esomeprazole (NEXIUM) 40 mg capsule TAKE 1 CAPSULE DAILY fluorometholone (FML LIQUID FILM) 0.1 % ophthalmic suspension Use 1 Drop in the left eye two times a day. erythromycin (ROMYCIN) 5 mg/gram (0.5 %) ophthalmic ointment Use 1 application in both eyes two times a day. metoprolol tartrate, short acting, (LOPRESSOR) 25 mg tablet Take 1 tablet by mouth two times a day. apixaban (ELIQUIS) 5 mg tab(s) Take 1 tablet by mouth two times a day. Magnesium Glycinate (MAG GLYCINATE) 100 mg tab Take 1 tablet by mouth two times a day. Clobetasol Propionate 0.05 % gel Apply to affected area as needed. Cholecalciferol, Vitamin D3, 50 mcg (2,000 unit) cap Take 1 capsule by mouth once daily. cholestyramine (QUESTRAN) 4 gram packet Take 1 Packet by mouth three times daily with meals. albuterol (PROVENTIL) 2.5 mg /3 mL (0.083 %) nebulizer solution Use 3 mL via nebulizer three times daily as needed for wheezing/shortness of breath. Inhale over 5-15 minutes lidocaine (XYLOCAINE) 5 % ointment Apply to affected area as needed (to urethral area). use a small amount to affected area qid prn pain cyanocobalamin/cobamamide (B12 SUBLINGUAL) Dissolve under the tongue once daily. sodium chloride (NEBUSAL) 3 % nebulizer solution Use 4 mL via nebulizer twice daily. albuterol HFA (PROAIR HFA) 90 mcg/actuation inhaler Inhale 2 Puffs as instructed every 4 hours as needed for wheezing/shortness of breath. Nebulizer and Compressor For Neb 1 Each twice daily. Flaxseed Oil 1,000 mg cap Take 1,000 mg by mouth once daily. 0.9 % sodium chloride (0.9% NACL) NURSING USE ONLY: USED FOR IMPLANTED VASCULAR ACCESS DEVICE (IVAD) ACCESS. AMBULATORY/OUTPATIENT: PLEASE REORDER UPON HOSPITAL DISCHARGE May access implanted vascular access device (IVAD) as needed for treatment. Flush IVAD with 10-20 mL NS every 4 weeks and PRN when IVAD not in use. sodium chloride (PRATIMA 128) 5 % ophthalmic solution Use 1 Drop in both eyes as needed. MULTIVITAMIN ORAL Take 1 tablet by mouth once daily. Lactobacillus acidophilus (PROBIOTIC ORAL) Take 1 capsule by mouth once daily. Social History Tobacco Use Smoking status: Never Smokeless tobacco: Never Vaping Use Vaping status: Never Used Substance Use Topics Alcohol use: Not Currently Comment: Quit 2013, previously 1-2 drinks per year Drug use: Never FAMILY HISTORY Problem Relation Age of Onset Cataract Father other (Cancer, liver) Father Liver cancer at 84 Diabetes Mother Osteoporosis Mother Cataract Mother other (chf) Mother other (dementia) Mother vascular Cataract Brother Thyroid Brother antibodies in thyroid Cataract Brother Thyroid Brother other (MTHFR) Brother and his children are positive as well No Ocular Disease Maternal Grandmother other (encelphalitis) Maternal Grandmother Heart Maternal Grandfather mi in his 70 No Ocular Disease Maternal Grandfather Alzheimer's Disease Paternal Grandmother No Ocular Disease Paternal Grandmother No Ocular Disease Paternal Grandfather PAST SURGICAL HISTORY Procedure Laterality Date ANOSCOPY DX W/COLLJ SPEC BR/WA SPX WHEN PRFRMD 02/22/2020 ARTHRP ACETBLR/PROX FEM PROSTC AGRFT/ALGRFT Left 01/2019 BONE MARROW TRANSPLANT, ALLOGENEIC 11/28/2014 CATARACT EXTRACTION HX Right 08/2016 DELIVERY ONLY x2 , low cervical COLECTOMY TOTAL W/ILEOANAL ANASTMS 06/20/2015 Ileostomy due to resection for bowel perforation ESOPHAGOGASTRODUODENOSCOPY TRANSORAL DIAGNOSTIC 09/06/2018 EGD IR IVC FILTER PLACEMENT 11/21/2015 Celect [place] LAPS SURG CHOLECYSTECTOMY W/CHOLANGIOGRAPHY 11/05/09 PICC LINE INSERT/CONSULT 06/28/2014 PICC LINE INSERT/CONSULT 03/12/2015 REMOVE TONSILS AND ADENOIDS; AGE 12 OVER PMH, Social history, family history and surgical history reviewed and updated in EMR REVIEW OF SYSTEMS: CONSTITUTIONAL: No fevers, chills, nightsweats, unintended weight loss. Persistent fatigue HEENT: Chronic nasal congestion/sinus symptoms. Hearing loss CARDIOVASCULAR: No chest pain, palpitations, edema. PULM: See HPI GI: No diarrhea. NEURO: No new balance problems, peripheral weakness/paresthesias or numbness of concern. MUSC-SKEL: No new joint pain, swelling, or erythema. INTEGUMENTARY: No new skin changes PHYSICAL EXAMINATION: BP 108/76 Pulse 85 Resp 18 SpO2 96% General Appearance: Obese female, NAD. Skin: Skin color, texture, turgor normal, no suspicious rashes or lesions. Head: Normocephalic, no masses, lesions, tenderness or abnormalities. Oropharynx: No oral lesions. Neck: No masses or adenopathy. Lungs: Not labored, normal to percussion, no wheezes or crackles. Heart: Regular rate and rhythm, no murmurs. Extremities: No edema or clubbing. Assessment/Plan: 1. Bronchiectasis, uncomplicated -No chest x-ray findings to suggest pneumonia or atypical infection -Continue Acapella device and nebulized saline 2. Jhvbu-phyyck-czee disease -Evidence of [place] 3. Chronic sinus disease -Follow-up with ENT 4. Class II obesity - BMI 34 -Weight loss advised Chrissy Moser MD [facility] documented in this encounter [facility] 01-09-2025 Instructions Socorro Rahman RN - 01/09/2025 1:22 PM EDT NURSE: Socorro Rahman RN MD F/U APPTS: Sg Julien MD BMT F/U - April pt preferred date and time SCHEDULE LABS: at least 1 hour prior to MD Appointment at [facility] Lab (Peripheral) Lab draw CALL PATIENT: Patient not aware of appt times requested, call pt before scheduling documented in this encounter [facility] 12-22-2024 Telephone encounter Note Duplicate encounter. [facility] 12-22-2024 Miscellaneous Notes Duplicate encounter. documented in this encounter [facility] 12-18-2024 History of Present illness Narrative ASSESSMENT/PLAN: 1. 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 Dry eyes, bilateral - ICD9: 375.15, ICD10: H04.123 See 1 3. Recurrent erosion of right cornea - ICD9: 371.42, ICD10: H18.831 Abrasion ~1999, intermittent symptoms since Monitor 4. Pseudophakia - ICD9: V43.1, ICD10: Z96.1 Lenses look good Sen Walton MD I have confirmed and edited as necessary the relevant ophthalmic history, ROS, and the neuro exam findings as obtained by others. I have seen and examined Cong Smith. I have discussed the case and the management of this patient's care with the Resident/Fellow, if applicable. I also have reviewed and agree with the assessment and plan as stated above and agree with all of its relevant components. Sen Walton MD documented in this encounter [facility] 12-11-2024 Telephone encounter Note Prescription Refill Information The patient has been identified by name and date of : Yes Caregiver verified no other encounters exist for this prescription request: Yes Caregiver confirmed with patient/requestor that no other refills are due, in the near future, with this provider at this time: Yes The last office visit in the department: 09/21/24 Does the patient have a future office visit with this provider/department: Yes 03/28/25 Requested Prescriptions Pending Prescriptions Disp Refills levothyroxine (SYNTHROID) 112 mcg tablet 90 tablet 3 Sig: Take 1 tablet by mouth once daily. Take on empty stomach. For Thyroid Reba Casiano LPN December 11, 2024 3:47 PM [facility] 12-11-2024 Miscellaneous Notes Prescription Refill Information The patient has been identified by name and date of : Yes Caregiver verified no other encounters exist for this prescription request: Yes Caregiver confirmed with patient/requestor that no other refills are due, in the near future, with this provider at this time: Yes The last office visit in the department: 09/21/24 Does the patient have a future office visit with this provider/department: Yes 03/28/25 Requested Prescriptions Pending Prescriptions Disp Refills levothyroxine (SYNTHROID) 112 mcg tablet 90 tablet 3 Sig: Take 1 tablet by mouth once daily. Take on empty stomach. For Thyroid Reba Casiano LPN December 11, 2024 3:47 PM documented in this encounter [facility] 12-05-2024 History of Present illness Narrative Patient is here for IVAD port flush per [facility] protocol. IVAD is located in left upper chest. Site cleansed with Chloraprep IVAD accessed with a #20 gauge 3/4 non-coring Gripper needle Blood Return: Good Flushed with: 20 ml Normal Saline Non-coring needle removed. Paper tape applied to puncture site. Port site negative for redness, edema or tenderness. Patient tolerated procedure well. documented in this encounter [facility] 10-18-2024 History of Present illness Narrative Images from the original note were not included. Subjective HPI HPI Cong Smith is a 74 year old female who presents today for CC of fall, right reina pain . This started 3 days ago. Has tried otc medication for relief. Symptoms are worsened by nothing. Risk factors touching the area. Patient on eliquis. .Patient presents with: Leg Injury: right reina pain after falling against step x 3 days PAST MEDICAL HISTORY Diagnosis Date Abnormal echocardiogram 06/03/2017 Abnormality of gait 08/10/2016 Acute pulmonary embolism (HCC) 08/06/2015 --Patient presented with pleuritic Chest Pain, Heparin gtt initiated until PE ruled out --Negative for PE CT with PE protocol. Heparin drip was discontinued. PEPE (acute kidney injury) (HCC) Non-oliguric renal failure. Creat increased to 1.6. Baseline sCr 0.6-1. --change fk to sirolimus. Resolved. 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 Dx 06/28/2014. -S/p induction with 7+3 + eltombopag (CASE 1493) course complicated by E.coli UTI and pulmonary nodule treated with posaconazole. -S/p 3 cycles of HiDAC, all courses complicated by neutropenic fevers and concern for worsening fungal pneumonia although this was not supported by cultures and bronchoscopy. 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 Treated w ganciclovir. 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 Lab draws: 11/28, 12/05, 12/12, 12/13, 12/26, 01/09, 5, 02/2710 Grade GVHD: every Wednesday starting 12/05, and prior to discharge. 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 Per LDT [facility] charges 08/22/15 S/P partial colectomy 06/20/2015 --06/20/2015- ex lap, subtotal colectomy, and end ileostomy SBO (small bowel obstruction) ([facility]) 01/25/2017 Secondary adrenal insufficiency ([facility]) 09/07/2016 Squamous cell carcinoma Left cheek Syncope Thrush 06/20/2022 Type 2 diabetes mellitus with microalbuminuria, without long-term current use of insulin ([facility]) 07/02/2016 Unspecified hypothyroidism PAST SURGICAL HISTORY Procedure Laterality Date ANOSCOPY DX W/COLLJ SPEC BR/WA SPX WHEN PRFRMD 02/22/2020 ARTHRP ACETBLR/PROX FEM PROSTC AGRFT/ALGRFT Left 01/2019 BONE MARROW TRANSPLANT, ALLOGENEIC 11/28/2014 CATARACT EXTRACTION HX Right 08/2016 DELIVERY ONLY x2 , low cervical COLECTOMY TOTAL W/ILEOANAL ANASTMS 06/20/2015 Ileostomy due to resection for bowel perforation ESOPHAGOGASTRODUODENOSCOPY TRANSORAL DIAGNOSTIC 09/06/2018 EGD IR IVC FILTER PLACEMENT 11/21/2015 Celect [place] LAPS SURG CHOLECYSTECTOMY W/CHOLANGIOGRAPHY 11/05/09 PICC LINE INSERT/CONSULT 06/28/2014 PICC LINE INSERT/CONSULT 03/12/2015 REMOVE TONSILS AND ADENOIDS; AGE 13 OVER ALLERGIES Fish Containing Products, Forteo [Teriparatide], Gadolinium-Containing Contrast Media, Iodinated Contrast Media, Iodine [Contrast Dye], and Omnipaque [Iohexol] MEDICATIONS apixaban (ELIQUIS) 5 mg tab(s) Take 1 tablet by mouth two times a day. Patient needs to fill before will be out of town for 3 months so can take med with her ipratropium bromide (ATROVENT) 42 mcg (0.06 %) nasal spray Use 2 Sprays in the nose two times a day as needed. mometasone (NASONEX) 50 mcg/actuation nasal spray Use 2 Sprays in the nose once daily. Rinse mouth after use. guaiFENesin (MUCINEX) 1,200 mg Ta12 Take 1 tablet by mouth once daily. lifitegrast (XIIDRA) 5 % ophthalmic drops Use 1 Drop in both eyes two times a day. estradiol (ESTRACE) 0.01 % (0.1 mg/gram) vaginal cream Use 0.5 g vaginally two times a week. clobetasol (TEMOVATE) 0.05 % ointment Apply 1 application to affected area once daily. calcium carbonate 600 mg-cholecalciferol 400 units (CALCIUM WITH VITAMIN D) 600 mg-10 mcg (400 unit) tab Take 1 tablet by mouth once daily. esomeprazole (NEXIUM) 40 mg capsule TAKE 1 CAPSULE DAILY fluorometholone (FML LIQUID FILM) 0.1 % ophthalmic suspension Use 1 Drop in the left eye two times a day. erythromycin (ROMYCIN) 5 mg/gram (0.5 %) ophthalmic ointment Use 1 application in both eyes two times a day. levothyroxine (SYNTHROID) 112 mcg tablet Take 1 tablet by mouth once daily. Take on empty stomach. For Thyroid metoprolol tartrate, short acting, (LOPRESSOR) 25 mg tablet Take 1 tablet by mouth two times a day. apixaban (ELIQUIS) 5 mg tab(s) Take 1 tablet by mouth two times a day. Clobetasol Propionate 0.05 % gel Apply to affected area as needed. Cholecalciferol, Vitamin D3, 50 mcg (2,000 unit) cap Take 1 capsule by mouth once daily. cholestyramine (QUESTRAN) 4 gram packet Take 1 Packet by mouth three times daily with meals. albuterol (PROVENTIL) 2.5 mg /3 mL (0.083 %) nebulizer solution Use 3 mL via nebulizer three times daily as needed for wheezing/shortness of breath. Inhale over 5-15 minutes lidocaine (XYLOCAINE) 5 % ointment Apply to affected area as needed (to urethral area). use a small amount to affected area qid prn pain cyanocobalamin/cobamamide (B12 SUBLINGUAL) Dissolve under the tongue once daily. sodium chloride (NEBUSAL) 3 % nebulizer solution Use 4 mL via nebulizer twice daily. albuterol HFA (PROAIR HFA) 90 mcg/actuation inhaler Inhale 2 Puffs as instructed every 4 hours as needed for wheezing/shortness of breath. Nebulizer and Compressor For Neb 1 Each twice daily. Flaxseed Oil 1,000 mg cap Take 1,000 mg by mouth once daily. 0.9 % sodium chloride (0.9% NACL) NURSING USE ONLY: USED FOR IMPLANTED VASCULAR ACCESS DEVICE (IVAD) ACCESS. AMBULATORY/OUTPATIENT: PLEASE REORDER UPON HOSPITAL DISCHARGE May access implanted vascular access device (IVAD) as needed for treatment. Flush IVAD with 10-20 mL NS every 4 weeks and PRN when IVAD not in use. sodium chloride (PRATIMA 128) 5 % ophthalmic solution Use 1 Drop in both eyes as needed. MULTIVITAMIN ORAL Take 1 tablet by mouth once daily. Lactobacillus acidophilus (PROBIOTIC ORAL) Take 1 capsule by mouth once daily. Magnesium Glycinate (MAG GLYCINATE) 100 mg tab Take 1 tablet by mouth two times a day. FAMILY HISTORY Problem Relation Age of Onset Cataract Father other (Cancer, liver) Father Liver cancer at 84 Diabetes Mother Osteoporosis Mother Cataract Mother other (chf) Mother other (dementia) Mother vascular Cataract Brother Thyroid Brother antibodies in thyroid Cataract Brother Thyroid Brother other (MTHFR) Brother and his children are positive as well No Ocular Disease Maternal Grandmother other (encelphalitis) Maternal Grandmother Heart Maternal Grandfather mi in his 70 No Ocular Disease Maternal Grandfather Alzheimer's Disease Paternal Grandmother No Ocular Disease Paternal Grandmother No Ocular Disease Paternal Grandfather Social History Tobacco Use Smoking status: Never Smokeless tobacco: Never Vaping Use Vaping status: Never Used Substance Use Topics Alcohol use: Not Currently Comment: Quit 2013, previously 1-2 drinks per year Drug use: Never ROS Objective Blood pressure 120/72, pulse 80, temperature 37.1 C (98.7 F), resp. rate 18, SpO2 95%. Physical Exam Constitutional: General: She is not in acute distress. Appearance: She is not toxic-appearing or diaphoretic. HENT: Head: Normocephalic and atraumatic. Pulmonary: Effort: Pulmonary effort is normal. No accessory muscle usage or respiratory distress. Musculoskeletal: Legs: Neurological: Mental Status: She is alert and oriented to person, place, and time. ASSESSMENT/PLAN: 1. Injury of right lower leg, initial encounter - ICD9: 959.7, ICD10: S89.91XA Xray negative for abnormality in area of pain. Declines referral to pcp or ortho F/u if s/s persist 10 days or sooner if s/s worsen - XR TIBIA FIBULA 2V AP/LAT RIGHT IMPRESSION: Heterogeneous appearance of the medial tibial condyle/plateau. Please clinically correlate. Dictated by : MD Xiao PINZON APRN.LEAD HOUSEKEEPER documented in this encounter [facility] 10-18-2024 History of Present illness Narrative Radiology Service Progress Note PATIENT NAME: Cong Smith DATE OF SERVICE: October 18, 2024 TIME: 1:03 PM PATIENT IDENTITY VERIFICATION COMPLETED USING TWO (2) IDENTIFIERS: Name and Date of confirmed by patient verbally. FALL SCREENING: Has the patient had 2 falls in the last year or 1 fall with injury or currently using an Ambulatory Assistive Device (Walker, Cane, Wheelchair, Crutches, etc.)? No PATIENT GENDER DATA: Assigned female at . status: : No status: NO. PATIENT RELEVANT IMPLANT DATA REVIEWED: Not Applicable PATIENT PRESENTS WITH AN IMPLANTABLE OR ATTACHED CLERICAL WAREHOUSE WORKER: No RADIOLOGY DEPARTMENT: General X-ray: Exam(s) Completed: Lower Extremity X-Ray(s): Tibia Fibula, Right PERIPHERAL IV DATA: Not applicable SIGNED BY: Saige Slade October 18, 2024 1:03 PM documented in this encounter [facility] 10-12-2024 Telephone encounter Note [facility] called to have Pts Cherelle called in. I noticed Pt had just had it sent to the local [facility]. Pt states it is too early for her to get it filled through her insurance, but she is going on a 3 month vacation to [place]. She is going to have it transferred to the [facility] down there so she can get it when it's eligible to be filled. Please do not send to [facility]. [facility] 10-12-2024 Miscellaneous Notes [facility] called to have Pts Eliquis called in. I noticed Pt had just had it sent to the local [facility]. Pt states it is too early for her to get it filled through her insurance, but she is going on a 3 month vacation to [place]. She is going to have it transferred to the [facility] down there so she can get it when it's eligible to be filled. Please do not send to [facility]. documented in this encounter [facility] 10-10-2024 Telephone encounter Note The following approved medication requests have been transmitted electronically. Requested Prescriptions Signed Prescriptions Disp Refills apixaban (ELIQUIS) 5 mg tab(s) 180 tablet 0 Sig: Take 1 tablet by mouth two times a day. Patient needs to fill before will be out of town for 3 months so can take med with her Authorizing Provider: LIDIA LOPEZ MD Local RX as requested for when will be out of town. Will be early refill so not sure if insurance will cover cost. If not, could have med shipped to wherever she will be if cannot afford out of pocket cost. [facility] 10-10-2024 Miscellaneous Notes The following approved medication requests have been transmitted electronically. Requested Prescriptions Signed Prescriptions Disp Refills apixaban (ELIQUIS) 5 mg tab(s) 180 tablet 0 Sig: Take 1 tablet by mouth two times a day. Patient needs to fill before will be out of town for 3 months so can take med with her Authorizing Provider: LIDIA LOPEZ MD Local RX as requested for when will be out of town. Will be early refill so not sure if insurance will cover cost. If not, could have med shipped to wherever she will be if cannot afford out of pocket cost. Patient reports she will be going away for several months and requesting 90 day supply of her Eliquis. Pended. Requesting [facility] [place]. Requested Prescriptions Pending Prescriptions Disp Refills apixaban (ELIQUIS) 5 mg tab(s) 180 tablet 3 Sig: Take 1 tablet by mouth two times a day. Svitlana Meek RN documented in this encounter [facility] 10-09-2024 Telephone encounter Note Patient reports she will be going away for several months and requesting 90 day supply of her Eliquis. Pended. Requesting [facility] [place]. Requested Prescriptions Pending Prescriptions Disp Refills apixaban (ELIQUIS) 5 mg tab(s) 180 tablet 3 Sig: Take 1 tablet by mouth two times a day. Svitlana Meek RN [facility] 09-21-2024 History of Present illness Narrative Images from the original note were not included. Cong Smith is a 74 year old female here for a Medicare wellness visit. Medicare Health Risk Assessment General Health Good Exercise: Minutes/Day 30 min Exercise: Days/Week 3 days Alcohol: Daily Use Never Alcohol: Drinks/Day Patient does not drink Alcohol: 6 or more drinks Never Feel off balance No Concerns: Teeth/Dentures No Concerns: Sexual function No Troubled by feelings None of the above Frequency: Eating healthy diet More than half the days ADLs requiring help None of the above Safety precautions in home/vehicle Yes Smoke, vape, chews tobacco No Difficulty hearing Yes, I wear a hearing aid Difficulty seeing No Current Providers Specialists: I have reviewed specialist-related care of the patient in the medical record. Dr. Baez hematology oncology AML, history of DVT, BMT Dr Chrissy Moser pulmonology bronchiectasis, nocturnal hypoxemia, restrictive lung disease. Going to pulmonary rehabilitation, [address] Casiano [address] Dr. Matthews cardiology SVT, hypertension Dr. Vallejo See ophthalmology Ostomy: Dr. Butler sleep medicine, reports sleeping 4-7 hours per night, trouble falling asleep. Has tried medication in the past but seemed too strong causing her to sleep for a very long time, has avoided since that time including much lower dose of medication. Notes melatonin did help for while. Nocturnal hypoxemia, wears O2 at night. ENT: hearing aids since age 26, reports low tone loss, still has hearing difficulties, Clear tone providing hearing aids, reports current ENT doctor Medical/Family history review Reviewed and updated problem list, medical/surgical/family/social history, medications, and allergies. Opioid use review Opioid Medications (last 90 days) No data to display Anxiety/Depression screening Recommendation: no further intervention at this time, states not anxious or depressed Cognitive screening BACH, 20.88, stable compared to 3 years ago, recommended more sleep, treating any depression if present, notes none. Cognitive screening reviewed and No further action needed (score 3-5). Functional Observation Was the patient's Timed Up & Go test unsteady or >= 12 seconds? No Advance Care Planning Surrogate decision maker and/or advance care plan documented Measurements There were no vitals taken for this visit. Vision Screening: Follows with optometry/ophthalmology Latest Ref Rng 09/02/2023 03/06/2024 06/01/2024 09/05/2024 WBC 3.70 - 11.00 k/uL 8.04 7.53 6.45 7.04 RBC 3.90 - 5.20 m/uL 4.33 4.42 4.30 4.36 Hemoglobin 11.5 - 15.5 g/dL 14.4 14.8 14.6 14.6 Hematocrit 36.0 - 46.0 % 42.1 43.5 42.9 42.4 MCV 80.0 - 100.0 fL 97.2 98.4 99.8 97.2 MCH 26.0 - 34.0 pg 33.3 33.5 34.0 33.5 MCHC 30.5 - 36.0 g/dL 34.2 34.0 34.0 34.4 RDW-CV 11.5 - 15.0 % 14.9 15.3 (H) 14.3 14.8 Platelet Count 150 - 400 k/uL 206 238 224 215 MPV 9.0 - 12.7 fL 10.2 10.0 10.7 10.0 Neut% % 30.7 28.6 33.7 28.8 Abs Neut (ANC) 1.45 - 7.50 k/uL 2.47 2.15 2.18 2.03 Lymph% % 56.2 58.2 48.7 55.3 Abs Lymph 1.00 - 4.00 k/uL 4.52 (H) 4.38 (H) 3.14 3.89 [place]% % 9.2 8.9 12.1 9.8 Abs [place] <0.87 k/uL 0.74 0.67 0.78 0.69 Eosin% % 3.4 3.7 4.5 5.7 Abs Eosin <0.46 k/uL 0.27 0.28 0.29 0.40 Baso% % 0.4 0.5 0.8 0.4 Abs Baso <0.11 k/uL 0.03 0.04 0.05 0.03 Immature Gran % % 0.1 0.1 0.2 0.0 IMMATURE GRANS (ABS) <0.10 k/uL <0.03 <0.03 <0.03 <0.03 NRBC /100 WBC 0.0 0.0 0.0 0.0 Absolute nRBC <0.01 k/uL <0.01 <0.01 <0.01 <0.01 DTYPE Auto Auto Auto Auto Protein, Total 6.3 - 8.0 g/dL 6.8 6.6 6.7 6.9 Albumin 3.9 - 4.9 g/dL 3.9 4.0 3.9 4.2 Calcium 8.5 - 10.2 mg/dL 9.6 9.2 9.2 9.3 Bilirubin, Total 0.2 - 1.3 mg/dL 0.4 0.5 0.3 0.3 Alkaline Phosphatase 34 - 123 U/L 116 106 102 109 AST 13 - 35 U/L 27 30 28 27 ALT 7 - 38 U/L 31 29 24 28 Glucose 74 - 99 mg/dL 94 122 (H) 104 (H) 97 BUN 7 - 21 mg/dL 26 (H) 21 26 (H) 29 (H) Creatinine 0.58 - 0.96 mg/dL 0.87 0.80 0.79 0.81 Sodium 136 - 144 mmol/L 136 138 138 138 Potassium 3.7 - 5.1 mmol/L 3.8 3.7 4.1 3.9 Chloride 98 - 107 mmol/L 104 106 105 103 CO2 22 - 30 mmol/L 25 21 (L) 22 23 Anion Gap 8 - 15 mmol/L 7 (L) 11 11 12 eGFR >=60 mL/min/1.73m 71 78 79 77 Hemoglobin A1C 4.3 - 5.6 % 5.3 5.3 5.3 Estimated Average Glucose mg/dL 105 105 105 Vitamin B12 232 - 1,245 pg/mL 1,339 (H) 982 TSH 0.270 - 4.200 mIU/L 1.680 0.756 3.270 Magnesium 1.7 - 2.3 mg/dL 1.9 1.9 2.0 Vitamin D 25 Hydroxy 31.0 - 80.0 ng/mL 66.8 75.9 69.4 Free T3 2.3 - 4.1 pg/mL 2.7 2.9 Free T4 0.9 - 1.7 ng/dL 1.6 1.6 1.5 Assessment/Plan Medicare annual wellness visit, subsequent (Z00.00) - Counseled on healthy diet and regular exercise - Fall avoidance information provided - Personalized prevention plan provided ASSESSMENT/PLAN: 1. Medicare annual wellness visit, subsequent - ICD9: V70.0, ICD10: Z00.00 (primary diagnosis) - Endorse healthy diet and regular exercise. Notes diet limitations due to ostomy - Follow up for annual exam in one year 2. Screening for depression - ICD9: V79.0, ICD10: Z13.31 reports none - DEPRESSION SCREENING 3. Encounter for screening examination for other mental health and behavioral disorders - ICD9: V79.8, ICD10: Z13.39 reports none - ANXIETY SCREENING 4. Rhinorrhea - ICD9: 478.19, ICD10: J34.89 Stable, currently controlled, continue to monitor. - IPRATROPIUM BROMIDE 42 MCG (0.06 %) NASAL SPRAY 5. Chronic rhinitis - ICD9: 472.0, ICD10: J31.0 Stable, currently controlled, continue to monitor. - MOMETASONE 50 MCG/ACTUATION NASAL SPRAY 6. Hearing loss, unspecified hearing loss type, unspecified laterality - ICD9: 389.9, ICD10: H91.90 She notes hearing loss of lower register tones, no current ENT provider. - CONSULT TO ENT 7. Chronic insomnia - ICD9: 780.52, ICD10: F51.04 Followed by sleep medicine, Dr. Butler. Endorse working with specialist to improve quality and duration of sleep, consider medication at low dose. 6 mo follow up Lidia Lopez MD with labs 1 yr follow up medicare visit. Selina Driscoll APRN.KOBE documented in this encounter [facility] 09-21-2024 Instructions Selina Driscoll APRN.CNS - 09/21/2024 8:07 AM EST Screening schedule The following prevention plan is recommended: Depression Screening Never done Anxiety Screening Never done Cervical Cancer Screening due on 07/26/2019 BP Controlled (<130/80) due on 05/13/2022 Covid-19 Vaccine() due on 07/27/2024 Advance Directive Discussion due on 09/20/2024 WHAT YOU CAN DO TO PREVENT FALLS Many falls can be prevented. By making some changes, you can lower your chances of falling. Four things YOU can do to prevent falls for you* and your caregiver 1. Begin a regular exercise program Exercise is one of the most important ways to lower your chances of falling. It makes you stronger and helps you feel better. Exercises that improve balance and coordination (like Eugene Chi) are the most helpful. Lack of exercise leads to weakness and increases your chances of falling. Ask your doctor or health care provider about the best type of exercise program for you. 2. Have your health care provider review your medicines Have your doctor or pharmacist review all the medicines you take, even [id number] medicines. As you get older, the way medicines work in your body can change. Some medicines, or combinations of medicines, can make you sleepy or dizzy and can cause you to fall. 3. Have your vision checked Have your eyes checked by an eye doctor at least once a year. You may be wearing the wrong glasses or have a condition like glaucoma or cataracts that limits your vision. Poor vision can increase your chances of falling. 4. Make your home safer About half of all falls happen at home. To make your home safer: Remove things you can trip over (like papers, books, clothes, and shoes) from stairs and places where you walk. Remove small throw rugs or use double-sided tape to keep the rugs from slipping. Keep items you use often in cabinets you can reach easily without using a step stool. Have grab bars put in next to your toilet and in the tub or shower. Use non-slip mats in the bathtub and on shower floors. Improve the lighting in your home. As you get older, you need brighter lights to see well. Hang light-weight curtains or shades to reduce glare. Have handrails and lights put in on all staircases. Wear shoes both inside and outside the house. Avoid going barefoot or wearing slippers. For more information, contact: Centers for Disease Control and Prevention www.cdc.gov/injury * This information may not apply if you have certain medical conditions. documented in this encounter [facility] 09-14-2024 Telephone encounter Note Pt notified. Ginette Henson MA [facility] 09-14-2024 Miscellaneous Notes Pt notified. Ginette Henson MA I spoke to Rahel in the precert dept at [facility], she says she isn t sure where the request for auth came from. I [facility] the pulmonary [facility], and they come back stating no auth is required. Rahel says patient is scheduled there tomorrow, and there are no issues with appt. Thank you, Beverly Pt called to report her insurance company has not yet received anything from [facility] or from [facility]. Her appt is tomorrow. I contacted our preaccess caregiver and this is her reply. [facility] is responsible for obtaining the benefits and authorization for therapy and rehab services being done there. This insurance doesn t typically require authorization, so I m not sure what they are looking for. I called the [facility] auth department and they are looking into what the rehab department is requesting, and they are supposed to get back with me. I ll update once I have more information. Thank you,Beverly documented in this encounter [facility] 09-14-2024 Telephone encounter Note I spoke to Rahel in the precert dept at [facility], she says she isn t sure where the request for auth came from. I checked the pulmonary rehab codes on [employer] s portal, and they come back stating no auth is required. Rahel says patient is scheduled there tomorrow, and there are no issues with appt. Thank you, Beverly [facility] 09-14-2024 Telephone encounter Note Pt called to report her insurance company has not yet received anything from [facility] or from [facility]. Her appt is tomorrow. I contacted our preaccess caregiver and this is her reply. [facility] is responsible for obtaining the benefits and authorization for therapy and rehab services being done there. This insurance doesn t typically require authorization, so I m not sure what they are looking for. I called the [facility] auth department and they are looking into what the rehab department is requesting, and they are supposed to get back with me. I ll update once I have more information. Thank you,Beverly [facility] 09-07-2024 Telephone encounter Note Referral placed Nevaeh Virgen LPN [facility] 09-07-2024 Miscellaneous Notes Referral placed Nevaeh iVrgen LPN Needs referral for pulm rehab being done at [facility] called needing pre auth documented in this encounter [facility] 09-07-2024 Telephone encounter Note Needs referral for pulm rehab being done at [facility] called needing pre auth [facility] 09-05-2024 History of Present illness Narrative Diagnosis: 1) 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 2) GVHD of the GI tract, liver, oral mucosa, vaginal mucosa and conjunctiva. HPI: The patient is a 74 yo female who was diagnosed with FLT3 ITD+/NPM1+ AML after presenting with chest pain. She received 7+3 and eltrombopag (CASE 1493) for induction. Her induction course was complicated by chest pain of unclear etiology and a skin rash likely due to cytarabine or zosyn. She had a UTI (E. coli) as well as noted pulmonary nodules on CT scan chest 07/13/2014. She was treated with posaconazole on 07/18/2014 since lesions appeared while on voriconazole. Discharged from [facility] 11/03/2014 following cycle #3 HiDAC. 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 Did very well for first 100 days and was tolerating steroid taper. Several days after going home, developed nausea/vomiting. Culminated in total colectomy. Per discharge summary 08/20/2015: Ms. Smith is a 65 year old female who presents from [facility] with positive V/Q scan c/w intermediate risk of pulmonary embolism. 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 She presented to [facility] 08/06 with chest pain. Her pain is described as left and right sided with left sided shoulder pain. Some dyspnea that she attributes to pain not difficulty getting breath in. She denies radiation to her jaw or back, no diaphoresis, no heaviness. She has an allergy to iodine and omnipaque so it was not possible to do a CTPE for she had a V/Q scan which showed intermediate probability for PE. While at [facility] Dr. Welch from oncology saw the patient and had no further recs. Pulmonary saw the patient as well and had no further recs. Cardiology evaluated the patient and felt that her troponin elevation is most likely secondary to her PE which was of high suspicion given immobility and malignancy. He suggested aspirin, continue beta neda, hold statin, noted chronic RBBB. Troponins were 0.098 and 0.121. On admission here she is HDS, conversant, some residual left shoulder pain but improved overall, no fevers, chills, night sweats and limited SOB. No diarrhea, dysuria, cough, headaches. Last two hospitalizations: 06/04-06/19 Developed E. Coli bacteriemia and was treated with a full course of meropenem. She resides at [place] currently. 06/19-07/10 Recently admitted where she developed pneumatosis coli and was taken to surgery where she got a subtotal colectomy with end ileostomy. Had a full course of CMV treatment with ganciclovir, followed by ID. Hospital Course: Mrs Smith was admitted to the MICU and placed on a heparin drip for suspected pulmonary embolism. CT scan with PE protocol was negative for pulmonary embolism and the heparin drip was stopped. Once stabilized she was transferred to the BMT unit. [place] U/A and urine culture showed a UTI d/t a multi resistant E.Coli which was treatet with a week course of IV cetriaxone. Her hospital course was further complicated by atrial fibrillation with rapid ventricular response. This required transfer to cardiology ICU for continuous infusion amiodarone for hrt rate control. Her Coreg and norvasc was stopped due to low blood pressure. She was transitioned to oral Amiodarone, and her multiple medications were adjusted for interactions i.e ppx cipro and posa were dc'd. PT/OT recommended SNF upon discharge, final placement arrangements were made and she was transferred to [facility] Underwent ileoscopy on 08/17/2018 for potential GI bleed/GVHD. At approximately 28 cm proximal to the stoma one semi-pedunculated nonbleeding polyp was identified. It was 4 mm in diameter. Biopsies were obtained. Otherwise the examined portion of the ileum was normal. Pathology: 1. Ileum, biopsy (A) - Small intestinal mucosa with architectural distortion and occasional apoptotic bodies. See comment. 2. Ileum polyp, biopsy (B) - Small intestinal mucosa with architectural distortion and pyloric gland metaplasia, see comment. COMMENT The patient's history of drnpb-jncrvo-fzby disease (GVHD) is noted. In the current specimen, only occasional apoptotic bodies are present, and do not meet our threshold for a diagnosis of GVHD (greater than 1 apoptotic body per piece of tissue). However, given their presence, some component of GVHD activity cannot be entirely ruled out. Both biopsies show evidence of chronic mucosal injury, possibly from prior GVHD. Chronic infection, chronic ischemia and chronic drug/medication injury could also produce these histologic features. An immunostain for CMV will be obtained and the results will be reported as an addendum. EGD on 08/31/2018. She was observed to have localized, moderate inflammation characterized by erosions, erythema and friability as well as serpentine ulcerations in the gastric antrum. Biopsies were obtained. The examined duodenum was normal. The lower third and middle third of the esophagus were both normal. Patient was advised to use sucralfate in addition to her proton pump inhibitor. Pathology: 1. Duodenum, biopsy (A) - Duodenal mucosa with minimal crypt apoptosis. 2. Antrum, biopsy (B) - Antral mucosa with chronic active inflammation and features of erosion. - See comment. 3. Esophagogastric junction, biopsy (C) - Reactive squamous mucosa and inflamed cardiac mucosa. - No evidence of intestinal metaplasia or dysplasia. 4. Mid esophagus, biopsy (D) - Mildly reactive squamous mucosa with rare intraepithelial eosinophils (up to 2 eosinophils in a single high power field). COMMENT The level of apoptotic activity seen the duodenum biopsy (part A) is insufficient to warrant a diagnosis of GVHD. H. pylori and CMV immunostains performed on the antrum biopsy (part B) to evaluate the chronic active inflammation are both negative. Underwent left hip replacement in January 2019. Was seen by gynecology at the beginning of April 2022 for vaginal and vulvar pain. It had come on a few days prior. She continued clobetasol Monistat without any relief. [place] like entire area was swollen and sore. Seen by primary care physician in mid April 2022. Was having increasing leg pain. Was directed to the ED at [facility]. Evidently noncontrast CT demonstrated no etiology for pain. Pain continued to worsen and she presented to [facility] on 05/18/2022. She underwent a right lower extremity venous duplex exam which showed acute DVT in the right lower extremity in the right distal external iliac vein, right common femoral vein, right femoral vein, right deep femoral vein and right posterior tibial vein. Acute clot was also noted in the right greater saphenous vein. She was started on anticoagulation with Eliquis. Presents for ongoing oncologic management. Interim history: Has been undergoing work up for episodic dyspnea. No subjective sense of wheeze. Had PVRs and echo. Saw cardiology. Legs remain weak. PMH, medications and allergies personally reviewed by me today. Any changes documented in appropriate section. PHYSICAL EXAM: Vitals: Blood pressure 125/84, pulse 76, temperature 36.4 C (97.5 F), temperature source Temporal, weight 75.8 kg (167 lb), SpO2 96%. Well-appearing and in no acute distress. EYES: Sclerae are anicteric bilaterally. LYMPHATIC: There is no palpable cervical or supraclavicular adenopathy. RESPIRATORY: Inspiratory breath sounds are of normal intensity in all h[place]. Few coarse crackles at the bases. CARDIOVASCULAR: Rhythm is regular. ABDOMEN: The abdomen is nondistended. SKIN: No jaundice. 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 -Previous GVHD symptoms of the vaginal area, mouth and GI tract resolved. -Reviewed labs and results of most recent echo with her. Plan: -OV with labs in 6 months. (Z86.218) History of DVT (deep vein thrombosis) Assessment: -Patient has history of left-sided lower extremity DVT. She had been off Eliquis for about a year. Restarted when had acute DVT right leg 04/2022. -Has IVC filter in place. -Has been tolerating apixaban at anticoagulant doses without unusual bleeding or unexplained bruising. -Discussed leg weakness/immobility as a ongoing risk. Plan: -Continue apixaban twice daily. iectsis. Portions of this documentation were copied and pasted from my previous office visit note dated 03/06/2024 in order to provide a cohesive continuity of the history. The note has been reviewed and edited and updated as necessary. Clare Baez DO documented in this encounter [facility] 08-23-2024 Telephone encounter Note Patient's request for medication is as follows: Requested Prescriptions Pending Prescriptions Disp Refills lifitegrast (XIIDRA) 5 % ophthalmic drops 180 Each 3 Sig: Use 1 Drop in both eyes two times a day. Prescription(s) as above. Please process accordingly. 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 Dry eyes, bilateral - ICD9: 375.15, ICD10: H04.123 See 1 3. Recurrent erosion of right cornea - ICD9: 371.42, ICD10: H18.831 Abrasion ~1999, intermittent symptoms since Monitor 4. Pseudophakia - ICD9: V43.1, ICD10: Z96.1 Lenses look good Sen Walton MD I have confirmed and edited as necessary the relevant ophthalmic history, ROS, and the neuro exam findings as obtained by others. I have seen and examined Cong Smith. I have discussed the case and the management of this patient's care with the Resident/Fellow, if applicable. I also have reviewed and agree with the assessment and plan as stated above and agree with all of its relevant components. Sen Walton MD [facility] 08-23-2024 Miscellaneous Notes Patient's request for medication is as follows: Requested Prescriptions Pending Prescriptions Disp Refills lifitegrast (XIIDRA) 5 % ophthalmic drops 180 Each 3 Sig: Use 1 Drop in both eyes two times a day. Prescription(s) as above. Please process accordingly. 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 Dry eyes, bilateral - ICD9: 375.15, ICD10: H04.123 See 1 3. Recurrent erosion of right cornea - ICD9: 371.42, ICD10: H18.831 Abrasion ~1999, intermittent symptoms since Monitor 4. Pseudophakia - ICD9: V43.1, ICD10: Z96.1 Lenses look good Sen Walton MD I have confirmed and edited as necessary the relevant ophthalmic history, ROS, and the neuro exam findings as obtained by others. I have seen and examined Cong Smith. I have discussed the case and the management of this patient's care with the Resident/Fellow, if applicable. I also have reviewed and agree with the assessment and plan as stated above and agree with all of its relevant components. Sen Walton MD documented in this encounter [facility] 08-23-2024 Telephone encounter Note Patient send another message. Dr. Baez aware/reviewed. Dr. Baez stated he is okay with waiting to address at patients next OV. Detailed message was left stating we can address at next OV and to call if she has any new/worsening symptoms. Patricia Brasher RN [facility] 08-23-2024 Miscellaneous Notes Patient send another message. Dr. Baez aware/reviewed. Dr. Baez stated he is okay with waiting to address at patients next OV. Detailed message was left stating we can address at next OV and to call if she has any new/worsening symptoms. Patricia Brasher RN Updated Dr. Baez and he is recommending a consult with surgeon for biopsy to r/o GVHD. Erika Ortiz RN Call back to patient, phone connection not good. States for the past month, she has noticed blood around stoma, not sure if irritated or coming out from stoma. This am, she states there was about 1 Tbsp. of blood gushing out of it States occasional pain at site, 4/10, burning pain. think it may be a blockage Denies any other issues, no fevers. She ask that we call back in the am as she is in a meeting. Erika Ortiz RN Patient returned call. Please call back when able. Patient heading into a meeting. Stephanie Lagos Called home phone, spoke with . He states she is at a meeting and to call cell phone. Call to cell phone, no answer, left message to call back in to office regarding stoma issues. Erika Ortiz RN documented in this encounter [facility] 08-23-2024 Telephone encounter Note Detailed message left stating we received her message. Dr. Baez reviewed and he is okay with discussing issues at her next OV. Patient was instructed to contact our office prior to her next OV if she has any new/worsening symptoms or concerns. Patricia Brasher RN [facility] 08-23-2024 Miscellaneous Notes Detailed message left stating we received her message. Dr. Baez reviewed and he is okay with discussing issues at her next OV. Patient was instructed to contact our office prior to her next OV if she has any new/worsening symptoms or concerns. Patricia Brasher RN documented in this encounter [facility] 08-23-2024 Telephone encounter Note Updated Dr. Baez and he is recommending a consult with surgeon for biopsy to r/o GVHD. Erika Ortiz RN [facility] Work Phone: 08-21-2024 Telephone encounter Note Call back to patient, phone connection not good. States for the past month, she has noticed blood around stoma, not sure if irritated or coming out from stoma. This am, she states there was about 1 Tbsp. of blood gushing out of it States occasional pain at site, 4/10, burning pain. think it may be a blockage Denies any other issues, no fevers. She ask that we call back in the am as she is in a meeting. Erika Ortiz RN [facility] 08-21-2024 Telephone encounter Note Patient returned call. Please call back when able. Patient heading into a meeting. Stephanie Lagos [facility] 08-21-2024 Telephone encounter Note Called home phone, spoke with . He states she is at a meeting and to call cell phone. Call to cell phone, no answer, left message to call back in to office regarding stoma issues. Erika Ortiz, RN [facility] 08-18-2024 History of Present illness Narrative [facility] Telephonic Outreach Provider Action/FYI Contacted for: Engagement Contact made with patient: Yes Patient identified by name and date of . Discussed care with patient Outcomes: Patient switched from [facility] to telephone outreach Are you experiencing any new or worsening symptoms you need to talk about today? No Based on bdr, the following disposition is advised: No symptoms or symptoms present, not severe. Routed to: No Action Needed KHRIS Education Provided this Outreach: No Lo Magaña RN August 18, 2024 2:40 PM documented in this encounter [facility] 08-08-2024 Telephone encounter Note COMPLETED AND FAXED BACK. [facility] 08-08-2024 Miscellaneous Notes COMPLETED AND FAXED BACK. Rec'd. Pcp can complete when she returns next week. Jeanine with [employer] called to let you know she has faxed a form today 08-03-24 for pt's ostomy supplies. Please watch for this. Ginette Camacho LPN documented in this encounter [facility] 08-03-2024 Telephone encounter Note Rec'd. Pcp can complete when she returns next week. [facility] 08-03-2024 Telephone encounter Note Jeanine with [employer] called to let you know she has faxed a form today 08-03-24 for pt's ostomy supplies. Please watch for this. Ginette Camacho LPN [facility] 07-31-2024 History of Present illness Narrative Images from the original note were not included. Sy Matthews MD Interventional Cardiology [address] [place] [address] [phone] Chief Complaint Patient presents with: 6 Month Exam HISTORY OF PRESENT ILLNESS: Ms. Smith is a 74 year old female seen in my office today for assessment and management of palpitation and supraventricular tachycardia patient had prior history of pulmonary embolism history of pulmonary transplant for acute management as leukemia in remission doing well from the cardiac point of view A palpitation or SVT recent Holter monitor shows no evidence of arrhythmia except 1 episode of 4 beat wide-complex tachycardia echocardiography shows normal left ventricular function with no valvular abnormality Cardiac Risk Factors age (male over 45, female over 55), hyperlipidemia, obesity, hypertension, family history of CAD PAST MEDICAL HISTORY Diagnosis Date Abnormal echocardiogram 06/03/2017 Abnormality of gait 08/10/2016 Acute pulmonary embolism (HCC) 08/06/2015 --Patient presented with pleuritic Chest Pain, Heparin gtt initiated until PE ruled out --Negative for PE CT with PE protocol. Heparin drip was discontinued. PEPE (acute kidney injury) (HCC) Non-oliguric renal failure. Creat increased to 1.6. Baseline sCr 0.6-1. --change fk to sirolimus. Resolved. 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 Dx 06/28/2014. -S/p induction with 7+3 + eltombopag (CASE 1493) course complicated by E.coli UTI and pulmonary nodule treated with posaconazole. -S/p 3 cycles of HiDAC, all courses complicated by neutropenic fevers and concern for worsening fungal pneumonia although this was not supported by cultures and bronchoscopy. 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 Treated w ganciclovir. Plan: - continue acyclovir - monitor tac levels Deep vein thrombosis (DVT) ([facility]) 05/2022 right leg Depression Dry eyes DVT (deep venous thrombosis) ([facility]) 10/2015 3 in left leg, on Eliquis Dysmetabolic syndrome X Esophageal reflux Group A streptococcal infection 10/01/2016 GVHD (graft versus host disease) ([facility]) GI GVHD Hearing impaired HTN (hypertension) Hypogammaglobulinemia ([facility]) 04/25/2015 --8/ level 343, IVIG given --05/08 level 315, IVIG given --05/16 level 649; 06/28= 463 Ileostomy present ([facility]) 09/07/2016 Infection due to parainfluenza virus 2 09/29/2016 Insomnia 01/11/2018 Irritable bowel syndrome Itching 01/11/2018 Obesity, unspecified Patient in clinical research study 10/10/2014 CTN 1202: Biomarkers study. Lab draws: 11/28, 12/05, 12/12, 12/13, 12/26, 01/09, /, 02/2710 Grade GVHD: every Wednesday starting 12/05, and prior to discharge. 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 Per LDT [facility] charges 08/22/15 S/P partial colectomy 06/20/2015 --06/20/2015- ex lap, subtotal colectomy, and end ileostomy SBO (small bowel obstruction) ([facility]) 01/25/2017 Secondary adrenal insufficiency ([facility]) 09/07/2016 Squamous cell carcinoma Left cheek Syncope Thrush 06/20/2022 Type 2 diabetes mellitus with microalbuminuria, without long-term current use of insulin ([facility]) 07/02/2016 Unspecified hypothyroidism PAST SURGICAL HISTORY Procedure Laterality Date ANOSCOPY DX W/COLLJ SPEC BR/WA SPX WHEN PRFRMD 02/22/2020 ARTHRP ACETBLR/PROX FEM PROSTC AGRFT/ALGRFT Left 01/2019 BONE MARROW TRANSPLANT, ALLOGENEIC 11/28/2014 CATARACT EXTRACTION HX Right 08/2016 DELIVERY ONLY x2 , low cervical COLECTOMY TOTAL W/ILEOANAL ANASTMS 06/20/2015 Ileostomy due to resection for bowel perforation ESOPHAGOGASTRODUODENOSCOPY TRANSORAL DIAGNOSTIC 09/06/2018 EGD IR IVC FILTER PLACEMENT 11/21/2015 Celect [place] LAPS SURG CHOLECYSTECTOMY W/CHOLANGIOGRAPHY 11/05/09 PICC LINE INSERT/CONSULT 06/28/2014 PICC LINE INSERT/CONSULT 03/12/2015 REMOVE TONSILS AND ADENOIDS; AGE 12 OVER FAMILY HISTORY Problem Relation Age of Onset Cataract Father other (Cancer, liver) Father Liver cancer at 84 Diabetes Mother Osteoporosis Mother Cataract Mother other (chf) Mother other (dementia) Mother vascular Cataract Brother Thyroid Brother antibodies in thyroid Cataract Brother Thyroid Brother other (MTHFR) Brother and his children are positive as well No Ocular Disease Maternal Grandmother other (encelphalitis) Maternal Grandmother Heart Maternal Grandfather mi in his 70 No Ocular Disease Maternal Grandfather Alzheimer's Disease Paternal Grandmother No Ocular Disease Paternal Grandmother No Ocular Disease Paternal Grandfather Social History Tobacco Use Smoking status: Never Smokeless tobacco: Never Vaping Use Vaping status: Never Used Substance Use Topics Alcohol use: Not Currently Comment: Quit 2013, previously 1-2 drinks per year Drug use: Never ALLERGIES Allergen Reactions Fish Containing Pro* Unknown Forteo [Teriparatid* Other: See Comments Hypercalcemia 08/2018 Gadolinium-Containi* Hives Iodinated Contrast * Hives Iodine [Contrast Dy* Hives Hives, sneezing Omnipaque [Iohexol] Hives Sneezing, pruritis (ears), and hive. Medications: Current Outpatient Medications Medication Sig Dispense Refill estradiol (ESTRACE) 0.01 % (0.1 mg/gram) vaginal cream Use 0.5 g vaginally two times a week. 85 g 2 clobetasol (TEMOVATE) 0.05 % ointment Apply 1 application to affected area once daily. 45 g 0 amoxicillin-clavulanate potassium (AUGMENTIN) 875-125 mg per tablet Take 1 tablet by mouth two times a day for 10 days. 20 tablet 0 calcium carbonate 600 mg-cholecalciferol 400 units (CALCIUM WITH VITAMIN D) 600 mg-10 mcg (400 unit) tab Take 1 tablet by mouth once daily. 90 tablet 1 esomeprazole (NEXIUM) 40 mg capsule TAKE 1 CAPSULE DAILY 90 capsule 3 fluorometholone (FML LIQUID FILM) 0.1 % ophthalmic suspension Use 1 Drop in the left eye two times a day. 15 mL 3 erythromycin (ROMYCIN) 5 mg/gram (0.5 %) ophthalmic ointment Use 1 application in both eyes two times a day. 10.5 g 3 levothyroxine (SYNTHROID) 112 mcg tablet Take 1 tablet by mouth once daily. Take on empty stomach. For Thyroid 90 tablet 3 metoprolol tartrate, short acting, (LOPRESSOR) 25 mg tablet Take 1 tablet by mouth two times a day. 180 tablet 3 apixaban (ELIQUIS) 5 mg tab(s) Take 1 tablet by mouth two times a day. 180 tablet 3 Magnesium Glycinate (MAG GLYCINATE) 100 mg tab Take 1 tablet by mouth two times a day. Clobetasol Propionate 0.05 % gel Apply to affected area as needed. Cholecalciferol, Vitamin D3, 50 mcg (2,000 unit) cap Take 1 capsule by mouth once daily. 90 capsule 3 cholestyramine (QUESTRAN) 4 gram packet Take 1 Packet by mouth three times daily with meals. 90 Packet 5 lifitegrast (XIIDRA) 5 % ophthalmic drops Use 1 Drop in both eyes twice daily. 180 Each 3 albuterol (PROVENTIL) 2.5 mg /3 mL (0.083 %) nebulizer solution Use 3 mL via nebulizer three times daily as needed for wheezing/shortness of breath. Inhale over 5-15 minutes 900 mL 3 mometasone (NASONEX) 50 mcg/actuation nasal spray Use 2 Sprays in the nose once daily. Rinse mouth after use. 17 g 3 lidocaine (XYLOCAINE) 5 % ointment Apply to affected area as needed (to urethral area). use a small amount to affected area qid prn pain 30 g 1 cyanocobalamin/cobamamide (B12 SUBLINGUAL) Dissolve under the tongue once daily. sodium chloride (NEBUSAL) 3 % nebulizer solution Use 4 mL via nebulizer twice daily. 1200 mL 3 albuterol HFA (PROAIR HFA) 90 mcg/actuation inhaler Inhale 2 Puffs as instructed every 4 hours as needed for wheezing/shortness of breath. 18 g 11 Nebulizer and Compressor For Neb 1 Each twice daily. 1 Each 1 Flaxseed Oil 1,000 mg cap Take 1,000 mg by mouth once daily. 0.9 % sodium chloride (0.9% NACL) NURSING USE ONLY: USED FOR IMPLANTED VASCULAR ACCESS DEVICE (IVAD) ACCESS. AMBULATORY/OUTPATIENT: PLEASE REORDER UPON HOSPITAL DISCHARGE May access implanted vascular access device (IVAD) as needed for treatment. Flush IVAD with 10-20 mL NS every 4 weeks and PRN when IVAD not in use. 1 Syringe 100 sodium chloride (PRATIMA 128) 5 % ophthalmic solution Use 1 Drop in both eyes as needed. MULTIVITAMIN ORAL Take 1 tablet by mouth once daily. ipratropium bromide (ATROVENT) 42 mcg (0.06 %) nasal spray Use 2 Sprays in the nose twice daily as needed. 1 Bottle 5 Lactobacillus acidophilus (PROBIOTIC ORAL) Take 1 capsule by mouth once daily. No current facility-administered medications for this visit. Review of Systems Constitutional: Negative for chills, diaphoresis, fever, malaise/fatigue and weight loss. HENT: Negative for congestion, ear discharge, ear pain, hearing loss, nosebleeds, sinus pain, sore throat and tinnitus. Eyes: Negative for blurred vision, double vision, photophobia, pain, discharge and redness. Respiratory: Negative for cough, hemoptysis, sputum production, shortness of breath, wheezing and stridor. Cardiovascular: Negative for chest pain, palpitations, orthopnea, claudication, leg swelling and PND. Gastrointestinal: Negative for abdominal pain, blood in stool, constipation, diarrhea, heartburn, melena, nausea and vomiting. Genitourinary: Negative for dysuria, flank pain, frequency, hematuria and urgency. Musculoskeletal: Negative for back pain, falls, joint pain, myalgias and neck pain. Skin: Negative for itching and rash. Neurological: Negative for dizziness, tingling, tremors, sensory change, speech change, focal weakness, seizures, loss of consciousness, weakness and headaches. Endo/Heme/Allergies: Negative for environmental allergies and polydipsia. Does not bruise/bleed easily. Psychiatric/Behavioral: Negative for depression, hallucinations, memory loss, substance abuse and suicidal ideas. The patient is not nervous/anxious and does not have insomnia. Physical Examination: Vitals:BP 106/62 Pulse 74 Ht 4' 10 (1.47m) Wt 160 lb (72.6kg) SpO2 97% BMI 33.45 kg/(m^2). BP w/Orthostatic Vitals Date and Time Orthostatic BP Orthostatic Pulse BP Pulse BP Position BP Site BP Cuff Size 07/31/24 1602 -- -- 106/62 74 -- -- -- Last 2 Encounter Wt Readings: Date: Wt: 07/31/2024 72.6 kg (160 lb) 07/26/2024 72.6 kg (160 lb) Physical Exam Constitutional: General: She is not in acute distress. Appearance: She is not diaphoretic. HENT: Head: Normocephalic and atraumatic. Right Ear: External ear normal. Left Ear: External ear normal. Nose: Nose normal. Mouth/Throat: Pharynx: Oropharynx is clear. Eyes: General: Right eye: No discharge. Left eye: No discharge. Conjunctiva/sclera: Conjunctivae normal. Pupils: Pupils are equal, round, and reactive to light. Cardiovascular: Rate and Rhythm: Normal rate and regular rhythm. Heart sounds: Normal heart sounds, S1 normal and S2 normal. No murmur heard. No friction rub. No gallop. No S3 or S4 sounds. Pulmonary: Effort: Pulmonary effort is normal. No respiratory distress. Breath sounds: Normal breath sounds. No wheezing or rales. Chest: Chest wall: No tenderness. Abdominal: General: Abdomen is flat. Musculoskeletal: General: Normal range of motion. Cervical back: Normal range of motion and neck supple. Skin: General: Skin is warm and dry. Neurological: Mental Status: She is alert and oriented to person, place, and time. Psychiatric: Mood and Affect: Mood normal. Thought Content: Thought content normal. Judgment: Judgment normal. Pertinent Labs: CBC: Hemoglobin (g/dL) Date Value 06/01/2024 14.6 09/25/2021 15.2 Hematocrit (%) Date Value 06/01/2024 42.9 09/25/2021 43.6 WBC (k/uL) Date Value 06/01/2024 6.45 09/25/2021 12.74 Platelet Count (k/uL) Date Value 06/01/2024 224 09/25/2021 265 BMP: Glucose (mg/dL) Date Value 06/01/2024 104 09/15/2021 109 Potassium (mmol/L) Date Value 06/01/2024 4.1 09/15/2021 4.1 Sodium (mmol/L) Date Value 06/01/2024 138 09/15/2021 135 Chloride (mmol/L) Date Value 06/01/2024 105 09/15/2021 102 CO2 (mmol/L) Date Value 06/01/2024 22 09/15/2021 19 Creatinine (mg/dL) Date Value 06/01/2024 0.79 09/15/2021 1.00 BUN (mg/dL) Date Value 06/01/2024 26 09/15/2021 32 Anion Gap (mmol/L) Date Value 06/01/2024 11 09/15/2021 14 Calcium (mg/dL) Date Value 09/15/2021 9.7 Calcium, Total (mg/dL) Date Value 06/01/2024 9.2 INR: Lipid Profile: Cholesterol, Total Date Value Ref Range Status 05/04/2022 155 <200 mg/dL Final Comment: <200 mg/dL, Desirable 200-239 mg/dL, Borderline high >239 mg/dL, High HDL Cholesterol Date Value Ref Range Status 05/04/2022 58 >39 mg/dL Final Comment: 40-59 mg/dL, Acceptable >59 mg/dL, High: Negative risk factor for coronary heart disease <40 mg/dL, Low: Positive risk factor for coronary heart disease LDL Cholesterol Date Value Ref Range Status 05/04/2022 68 <100 mg/dL Final Comment: <100 mg/dL, Optimal 100-129 mg/dL, Near optimal/above optimal 130-159 mg/dL, Borderline high 160-189 mg/dL, High >189 mg/dL, Very high Secondary prevention optimal LDL Cholesterol levels are recommended to be < 70 mg/dL Triglyceride Date Value Ref Range Status 05/04/2022 144 <150 mg/dL Final Comment: <150 mg/dL, Normal 150-199 mg/dL, Borderline high 200-499 mg/dL, High >499 mg/dL, Very high Hemoglobin A1C: No results found for: HGBA1C TSH: No results found for: TSHREFL Prior Cardiac Testing Zio echo Assessment and Plan: ASSESSMENT/PLAN: 1. SVT (supraventricular tachycardia) (HCC) - ICD9: 427.89, ICD10: I47.10 (primary diagnosis) 1 episode of supraventricular tachycardia continue medical therapy 2. Primary hypertension - ICD9: 401.9, ICD10: I10 - Controlled - Continue current medications - Recommend home blood pressure monitoring, to bring results to next visit - Encouraged sodium restriction, DASH or Mediterranean diet - Recommend regular aerobic exercise Sy Matthews MD Follow up planning: One year Electronically signed by Sy Matthews MD on July 31, 2024, 4:37 PM The above note was partially created using a dictation recognition software. A reasonable attempt has been made to correct any errors. 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 Has significantly affected her vulvar area. uses estrogen cream. Has occas bump in the vulvar area she wonders about. No drainage or fissures. Tried vaginal dilators an can only get the 2 smallest ones in, cannot get the 3rd size in. Grieves the loss of having intercourse w/ her . She has never had abnormal aidee nad has had neg. HRHPV tests x 2 in past 10 years. 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 Heparin drip was discontinued. PEPE (acute kidney injury) (HCC) Non-oliguric renal failure. Creat increased to 1.6. Baseline sCr 0.6-1. --change fk to sirolimus. Resolved. 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 Dx 06/28/2014. -S/p induction with 7+3 + eltombopag (CASE 1493) course complicated by E.coli UTI and pulmonary nodule treated with posaconazole. -S/p 3 cycles of HiDAC, all courses complicated by neutropenic fevers and concern for worsening fungal pneumonia although this was not supported by cultures and bronchoscopy. 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 Treated w ganciclovir. 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 Lab draws: 11/28, 12/05, 12/12, 12/13, 4/8, 4/22, 5/6, 6/10 Grade GVHD: every Wednesday starting 12/05, and prior to discharge. Pseudophakia of both eyes RBBB (right bundle branch block) 10/01/2015 RUQ abdominal pain S/P bone marrow transplant ([facility]) 08/27/2015 AML. Per LDT [facility] charges 08/22/15 S/P partial colectomy 06/20/2015 --06/20/2015- ex lap, subtotal colectomy, and end ileostomy SBO (small bowel obstruction) ([facility]) 01/25/2017 Secondary adrenal insufficiency ([facility]) 09/07/2016 Squamous cell carcinoma Left cheek Syncope Thrush 06/20/2022 Type 2 diabetes mellitus with microalbuminuria, without long-term current use of insulin (HCC) 07/02/2016 Unspecified hypothyroidism PAST SURGICAL HISTORY Procedure Laterality Date ANOSCOPY DX W/COLLJ SPEC BR/WA SPX WHEN PRFRMD 02/22/2020 ARTHRP ACETBLR/PROX FEM PROSTC AGRFT/ALGRFT Left 01/2019 BONE MARROW TRANSPLANT, ALLOGENEIC 11/28/2014 CATARACT EXTRACTION HX Right 08/2016 DELIVERY ONLY x2 , low cervical COLECTOMY TOTAL W/ILEOANAL ANASTMS 06/20/2015 Ileostomy due to resection for bowel perforation ESOPHAGOGASTRODUODENOSCOPY TRANSORAL DIAGNOSTIC 09/06/2018 EGD IR IVC FILTER PLACEMENT 11/21/2015 Celect [place] LAPS SURG CHOLECYSTECTOMY W/CHOLANGIOGRAPHY 11/05/09 PICC LINE INSERT/CONSULT 06/28/2014 PICC LINE INSERT/CONSULT 03/12/2015 REMOVE TONSILS AND ADENOIDS; AGE 12 OVER FAMILY HISTORY Problem Relation Age of Onset Cataract Father other (Cancer, liver) Father Liver cancer at 84 Diabetes Mother Osteoporosis Mother Cataract Mother other (chf) Mother other (dementia) Mother vascular Cataract Brother Thyroid Brother antibodies in thyroid Cataract Brother Thyroid Brother other (MTHFR) Brother and his children are positive as well No Ocular Disease Maternal Grandmother other (encelphalitis) Maternal Grandmother Heart Maternal Grandfather mi in his 70 No Ocular Disease Maternal Grandfather Alzheimer's Disease Paternal Grandmother No Ocular Disease Paternal Grandmother No Ocular Disease Paternal Grandfather Social History Tobacco Use Smoking status: Never Smokeless tobacco: Never Vaping Use Vaping status: Never Used Substance Use Topics Alcohol use: Not Currently Comment: Quit 2013, previously 1-2 drinks per year Drug use: Never Current Outpatient Medications Medication Sig amoxicillin-clavulanate potassium (AUGMENTIN) 875-125 mg per tablet Take 1 tablet by mouth two times a day for 10 days. calcium carbonate 600 mg-cholecalciferol 400 units (CALCIUM WITH VITAMIN D) 600 mg-10 mcg (400 unit) tab Take 1 tablet by mouth once daily. esomeprazole (NEXIUM) 40 mg capsule TAKE 1 CAPSULE DAILY fluorometholone (FML LIQUID FILM) 0.1 % ophthalmic suspension Use 1 Drop in the left eye two times a day. erythromycin (ROMYCIN) 5 mg/gram (0.5 %) ophthalmic ointment Use 1 application in both eyes two times a day. levothyroxine (SYNTHROID) 112 mcg tablet Take 1 tablet by mouth once daily. Take on empty stomach. For Thyroid metoprolol tartrate, short acting, (LOPRESSOR) 25 mg tablet Take 1 tablet by mouth two times a day. apixaban (ELIQUIS) 5 mg tab(s) Take 1 tablet by mouth two times a day. Magnesium Glycinate (MAG GLYCINATE) 100 mg tab Take 1 tablet by mouth two times a day. Clobetasol Propionate 0.05 % gel Apply to affected area as needed. Cholecalciferol, Vitamin D3, 50 mcg (2,000 unit) cap Take 1 capsule by mouth once daily. cholestyramine (QUESTRAN) 4 gram packet Take 1 Packet by mouth three times daily with meals. lifitegrast (XIIDRA) 5 % ophthalmic drops Use 1 Drop in both eyes twice daily. albuterol (PROVENTIL) 2.5 mg /3 mL (0.083 %) nebulizer solution Use 3 mL via nebulizer three times daily as needed for wheezing/shortness of breath. Inhale over 5-15 minutes mometasone (NASONEX) 50 mcg/actuation nasal spray Use 2 Sprays in the nose once daily. Rinse mouth after use. lidocaine (XYLOCAINE) 5 % ointment Apply to affected area as needed (to urethral area). use a small amount to affected area qid prn pain cyanocobalamin/cobamamide (B12 SUBLINGUAL) Dissolve under the tongue once daily. sodium chloride (NEBUSAL) 3 % nebulizer solution Use 4 mL via nebulizer twice daily. albuterol HFA (PROAIR HFA) 90 mcg/actuation inhaler Inhale 2 Puffs as instructed every 4 hours as needed for wheezing/shortness of breath. Nebulizer and Compressor For Neb 1 Each twice daily. Flaxseed Oil 1,000 mg cap Take 1,000 mg by mouth once daily. 0.9 % sodium chloride (0.9% NACL) NURSING USE ONLY: USED FOR IMPLANTED VASCULAR ACCESS DEVICE (IVAD) ACCESS. AMBULATORY/OUTPATIENT: PLEASE REORDER UPON HOSPITAL DISCHARGE May access implanted vascular access device (IVAD) as needed for treatment. Flush IVAD with 10-20 mL NS every 4 weeks and PRN when IVAD not in use. sodium chloride (PRATIMA 128) 5 % ophthalmic solution Use 1 Drop in both eyes as needed. MULTIVITAMIN ORAL Take 1 tablet by mouth once daily. ipratropium bromide (ATROVENT) 42 mcg (0.06 %) nasal spray Use 2 Sprays in the nose twice daily as needed. Lactobacillus acidophilus (PROBIOTIC ORAL) Take 1 capsule by mouth once daily. estradiol (ESTRACE) 0.01 % (0.1 mg/gram) vaginal cream Use 0.5 g vaginally two times a week. clobetasol (TEMOVATE) 0.05 % ointment Apply 1 application to affected area once daily. No current facility-administered medications for this visit. Allergies As of Date: 07/26/2024 Allergen Noted Reaction FISH CONTAINING PRODUCTS 02/19/2022 Unknown FORTEO [TERIPARATIDE] 09/18/2018 Other: See Comments GADOLINIUM-CONTAINING CONTRAST ME*01/07/2022 Hives IODINATED CONTRAST MEDIA 01/07/2022 Hives IODINE [CONTRAST DYE] 06/26/2014 Hives OMNIPAQUE [IOHEXOL] 07/02/2014 Hives Fully Assessed 07/26/2024 Allergies and current medication updated:Yes SENSITIVE EXAM: The sensitive examination was discussed with the Patient or Patient's Authorized Human Services Professional. As applicable, any other physician, advance practice provider, medical student, or other health professional student that will be observing or involved in the sensitive examination for educational or training purposes was discussed with the Patient or Authorized Human Services Professional. The Patient or Authorized Human Services Professional has agreed to proceed with the sensitive examination. (Sensitive examination includes inspection and/or palpation of the breasts, pelvis, prostate and anorectal regions). EXAM: BP 124/76 Ht 4' 10 (1.47m) Wt 160 lb (72.6kg) BMI 33.45 kg/(m^2). GENERAL: pleasant, female in no apparent distress BREAST: soft, non-tender, symmetric, no dominant mass, normal nipple-areolar complex, no lymphadenopathy, and no nipple discharge PELVIC: Atrophic flattened erythematous vaginal epithelium with a very narrow introitus. With pediatric speculum cannot adequately visualize the cervix. Labia minora are somewhat flattened, labia majora are smooth with thin tissue. No fissures or ulcerations. Areas of concern that patient reports a small bumps or pimples are small skin tags that are approximately 2 mm in size. 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) Orders: estradiol (ESTRACE) 0.01 % (0.1 mg/gram) vaginal cream; Use 0.5 g vaginally two times a week. Atrophic vaginitis Orders: estradiol (ESTRACE) 0.01 % (0.1 mg/gram) vaginal cream; Use 0.5 g vaginally two times a week. Encounter for gynecological examination (general) (routine) without abnormal findings Orders: AUGUST SCREENING W JULIETA; Future Encounter for screening mammogram for breast cancer Orders: AUGUST SCREENING W JULIETA; Future Return in 1 year or as needed. Discussed with the patient if she is interested in considering vaginal surgery to widen her introitus to see if intercourse would again be possible, I would refer her to urogynecology for consult on this. Patient will let me know if she would like to proceed with that. Nithya Casiano MD Medical Decision Making: Problems: Moderate: 2+ stable chronic illnesses Risk: Low: Low risk from testing/treatment Medical Decision Making Level: 3 - Low documented in this encounter [facility] 07-26-2024 History of Present illness Narrative POPULATION HEALTH NAVIGATION OUTREACH Action/I Returning patients call as patient left a detail message on my voicemail in regards to initial outreach Melissa Burton [place] Discuss/Due for: 2024 Medicare Wellness, BP Control HCC Score: 0 Outcome: 1st attempt - Spoke to patient Changed existing Follow Up ADD appointment with Selina Driscoll APRN.CNS on 09/21/2024 for 2024 Medicare Wellness/BP Control Patient reports monitoring home blood pressure, does not have exact reading available Reason for Outreach Returned Call/MyChart Patient Contacted: Spoke to patient/parent/or legal guardian Patient identified by name and date of : Yes Returned call/MyChart actions taken: Patient scheduled/pended orders: Medicare Annual Wellness Visit Controlling Blood Pressure 07/26/2024 in [facility] with NITHYA CASIANO - Annual Exam 07/31/2024 in [facility] with SY MATTHEWS - 6 mo follow up 09/04/2024 in [facility] INDP with SEN WALTON - Return in about 6 months (around 08/29/2024). 09/05/2024 in [facility] with LAB/PORT [facility] - CBC/CMP(PORT)/OV TODAY* 09/05/2024 in [facility] with CLARE BAEZ - 6 MO OV(PORT)/LABS EARLY* 09/21/2024 in INTM [facility] with SELINA DRISCOLL - 2024 Medicare Wellness Z00.00/[employer] AWV Protocol, ADD/Discuss Labs 01/30/2025 in PULM [facility] with CHRISSY MOSER - 6 mo follow up Navigation Signature: Rosalia Ross MA July 26, 2024 11:54 AM POPULATION HEALTH NAVIGATION OUTREACH Action/FYI Melissa Burton [place] Discuss/Due for: 2024 Medicare Wellness, BP Control HCC Score: 0 Outcome: 1st attempt - Left Message 2nd attempt - MyChart message sent Reason for Outreach Care Gap/HCC or Scheduling Wellness Visits Care Gaps due: Medicare Annual Wellness Visit Controlling Blood Pressure Patient Contacted: Unable or unnecessary to reach patient: Left message MyChart message sent Navigation Signature: Rosalia Ross MA July 26, 2024 8:20 AM documented in this encounter [facility] 07-21-2024 History of Present illness Narrative Images from the original note were not included. Pulmonary Medicine Patients name: Cong Liu PCP: Lidia Lopez MD CC: follow-up bronchiectasis HPI: Cong Smith is a 74 year old female non-smoker with PMH significant for AF, VTE on Eliquis and s/p IVC filter, AML s/p allogeneic BMT 2014, GVHD (GI tract, liver, mucosa, eyes), GERD, HTN, s/p ileostomy, DM, hypothyroidism, and bronchiectasis. Current therapy consists of bronchopulmonary hygiene with acapella device and hypertonic saline. Nocturnal oxygen. [place] 12/20/2023. Since that time, denies any exacerbations/ER visits. She was provided with a prescription for antibiotics last year before traveling to [place] but denies needing. Currently doing well. Had a fever and coughing up green sputum 2 weeks ago. Also had head cold symptoms. Historically, this would result in more severe symptoms and bronchiectasis flare but symptoms resolved on their own. Has not had productive cough in a few days. No hemoptysis. No wheezing. Continues to have exertional dyspnea with heavy walking. Tries to walk 3 days a week for a mile but is very winded by 1/4 mile. Previously recommended pulmonary rehab but never got a call from [place] to start. Intermittently uses flutter valve, spirometer and nebulized treatments. Has felt well and does not typically have productive cough. DME: [employer] 1 L at nighttime PAST MEDICAL HISTORY Diagnosis Date Abnormal echocardiogram 06/03/2017 Abnormality of gait 08/10/2016 Acute pulmonary embolism (HCC) 08/06/2015 --Patient presented with pleuritic Chest Pain, Heparin gtt initiated until PE ruled out --Negative for PE CT with PE protocol. Heparin drip was discontinued. PEPE (acute kidney injury) (HCC) Non-oliguric renal failure. Creat increased to 1.6. Baseline sCr 0.6-1. --change fk to sirolimus. Resolved. 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 Dx 06/28/2014. -S/p induction with 7+3 + eltombopag (CASE 1493) course complicated by E.coli UTI and pulmonary nodule treated with posaconazole. -S/p 3 cycles of HiDAC, all courses complicated by neutropenic fevers and concern for worsening fungal pneumonia although this was not supported by cultures and bronchoscopy. 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 Treated w ganciclovir. 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 Lab draws: 11/28, 12/05, 12/12, 12/13, 12/26, 01/09, 5/6, 02/2710 Grade GVHD: every Wednesday starting 12/05, and prior to discharge. Pseudophakia of both eyes RBBB (right bundle branch block) 10/01/2015 RUQ abdominal pain S/P bone marrow transplant ([facility]) 08/27/2015 AML. Per LDT [facility] charges 08/22/15 S/P partial colectomy 06/20/2015 --06/20/2015- ex lap, subtotal colectomy, and end ileostomy SBO (small bowel obstruction) ([facility]) 01/25/2017 Secondary adrenal insufficiency ([facility]) 09/07/2016 Squamous cell carcinoma Left cheek Syncope Thrush 06/20/2022 Type 2 diabetes mellitus with microalbuminuria, without long-term current use of insulin ([facility]) 07/02/2016 Unspecified hypothyroidism Allergies: Fish Containing Pro* Unknown Forteo [Teriparatid* Other: See Comments Comment:Hypercalcemia 08/2018 Gadolinium-Containi* Hives Iodinated Contrast * Hives Iodine [Contrast Dy* Hives Comment:Hives, sneezing Omnipaque [Iohexol] Hives Comment:Sneezing, pruritis (ears), and hive. Medication List Accurate as of July 21, 2024 1:17 PM. If you have any questions, ask your nurse or doctor. CONTINUE taking these medications 0.9% NaCl NURSING USE ONLY: USED FOR IMPLANTED VASCULAR ACCESS DEVICE (IVAD) ACCESS. AMBULATORY/OUTPATIENT: PLEASE REORDER UPON HOSPITAL DISCHARGE May access implanted vascular access device (IVAD) as needed for treatment. Flush IVAD with 10-20 mL NS every 4 weeks and PRN when IVAD not in use. * albuterol HFA 90 mcg/actuation inhaler Commonly known as: PROAIR HFA Inhale 2 Puffs as instructed every 4 hours as needed for wheezing/shortness of breath. * albuterol 2.5 mg /3 mL (0.083 %) nebulizer solution Commonly known as: PROVENTIL Use 3 mL via nebulizer three times daily as needed for wheezing/shortness of breath. Inhale over 5-15 minutes apixaban 5 mg tab(s) Commonly known as: ELIQUIS Take 1 tablet by mouth two times a day. B12 SUBLINGUAL calcium carbonate 600 mg-cholecalciferol 400 units 600 mg-10 mcg (400 unit) Tab Commonly known as: CALCIUM WITH VITAMIN D Take 1 tablet by mouth once daily. Cholecalciferol (Vitamin D3) 50 mcg (2,000 unit) Cap Take 1 capsule by mouth once daily. cholestyramine 4 gram packet Commonly known as: QUESTRAN Take 1 Packet by mouth three times daily with meals. Clobetasol Propionate 0.05 % Gel erythromycin 5 mg/gram (0.5 %) ophthalmic ointment Commonly known as: ROMYCIN Use 1 application in both eyes two times a day. esomeprazole 40 mg capsule Commonly known as: NexIUM TAKE 1 CAPSULE DAILY estradiol 0.01 % (0.1 mg/gram) vaginal cream Commonly known as: ESTRACE Use 0.5 g vaginally two times a week. Flaxseed Oil 1,000 mg Cap fluorometholone 0.1 % ophthalmic suspension Commonly known as: FML LIQUID FILM Use 1 Drop in the left eye two times a day. ipratropium bromide 42 mcg (0.06 %) nasal spray Commonly known as: ATROVENT Use 2 Sprays in the nose twice daily as needed. levothyroxine 112 mcg tablet Commonly known as: SYNTHROID Take 1 tablet by mouth once daily. Take on empty stomach. For Thyroid lidocaine 5 % ointment Commonly known as: XYLOCAINE Apply to affected area as needed (to urethral area). use a small amount to affected area qid prn pain MAG GLYCINATE 100 mg Tab Generic drug: Magnesium Glycinate Take 1 tablet by mouth two times a day. metoprolol tartrate (short acting) 25 mg tablet Commonly known as: LOPRESSOR Take 1 tablet by mouth two times a day. mometasone 50 mcg/actuation nasal spray Commonly known as: NASONEX Use 2 Sprays in the nose once daily. Rinse mouth after use. MULTIVITAMIN ORAL Nebulizer and Compressor For Neb 1 Each twice daily. PROBIOTIC ORAL sodium chloride 3 % nebulizer solution Commonly known as: NEBUSAL Use 4 mL via nebulizer twice daily. sodium chloride 5 % ophthalmic solution Commonly known as: PRATIMA 128 XIIDRA 5 % ophthalmic drops Generic drug: lifitegrast Use 1 Drop in both eyes twice daily. * This list has 2 medication(s) that are the same as other medications prescribed for you. Read the directions carefully, and ask your doctor or other care provider to review them with you. DATA: I personally reviewed and analyzed all labs, radiographs and available pulmonary function testing PFT: CXR: Last XR Chest - Impression Only XR CHEST 1V FRONTAL Exam End: 08/15/2022 1:34 PM (Final result) Impression: No acute heart or lung disease identified. Workstation ID: [id number] Echo: 06/13/2024 Impression CONCLUSIONS: - Exam indication: Shortness of Breath - The left ventricle is normal in size. Left ventricular systolic function is normal. EF = 59 5% (2D biplane) Grade I left ventricular diastolic dysfunction. - The right ventricle is normal in size. Right ventricular systolic function is normal. - There are no significant valvular abnormalities. - Exam was compared with the prior echocardiographic exam performed on 06/05/2022, no significant change. Labs: WBC (k/uL) Date Value 06/01/2024 6.45 09/25/2021 12.74 RBC (m/uL) Date Value 06/01/2024 4.30 09/25/2021 4.30 Hemoglobin (g/dL) Date Value 06/01/2024 14.6 09/25/2021 15.2 Hematocrit (%) Date Value 06/01/2024 42.9 09/25/2021 43.6 Platelet Count (k/uL) Date Value 06/01/2024 224 09/25/2021 265 MPV (fL) Date Value 06/01/2024 10.7 09/25/2021 10.2 Neut% (%) Date Value 09/25/2021 23.0 Neutrophils % (%) Date Value 06/01/2024 33.7 Eosin% (%) Date Value 09/25/2021 2.0 Eosinophils % (%) Date Value 06/01/2024 4.5 Baso% (%) Date Value 09/25/2021 0.0 Basophils % (%) Date Value 06/01/2024 0.8 Abs Neut (ANC) (k/uL) Date Value 09/25/2021 2.93 Abs Neut (k/uL) Date Value 06/01/2024 2.18 Abs Lym (K/uL) Date Value 12/18/2019 6.04 Abs [place] (k/uL) Date Value 06/01/2024 0.78 09/25/2021 1.02 Abs Eosin (k/uL) Date Value 06/01/2024 0.29 09/25/2021 0.25 Abs Baso (k/uL) Date Value 06/01/2024 0.05 09/25/2021 0.00 Review of Systems Constitutional: Negative for activity change, appetite change and unexpected weight change. HENT: Negative for congestion, sinus pressure and sinus pain. Respiratory: Positive for shortness of breath. Negative for cough, chest tightness and wheezing. Cardiovascular: Negative for chest pain and palpitations. Neurological: Negative for dizziness and weakness. BP 118/82 (BP Site: Right Arm, BP Position: Sitting, BP Cuff Size: Regular Adult) Pulse 80 Resp 14 Ht 147.3 cm (4' 10) Wt 72.6 kg (160 lb) SpO2 96% BMI 33.44 kg/m Physical Exam Vitals reviewed. Constitutional: General: She is not in acute distress. Appearance: Normal appearance. She is obese. She is not ill-appearing. HENT: Head: Normocephalic. Nose: No rhinorrhea. Mouth/Throat: Mouth: Mucous membranes are moist. Pharynx: No oropharyngeal exudate. Cardiovascular: Rate and Rhythm: Normal rate and regular rhythm. Heart sounds: Normal heart sounds. Pulmonary: Effort: Pulmonary effort is normal. No respiratory distress. Breath sounds: No wheezing. Musculoskeletal: Right lower leg: Edema present. Left lower leg: Edema present. Comments: 1+ B/l LE edema Lymphadenopathy: Cervical: No cervical adenopathy. Skin: General: Skin is warm and dry. Capillary Refill: Capillary refill takes less than 2 seconds. Neurological: General: No focal deficit present. Mental Status: She is alert. ASSESSMENT/PLAN: 1. Bronchiectasis without complication (HCC) - ICD9: 494.0, ICD10: J47.9 (primary diagnosis) - no significant change on PFT - no recent flare necessitating ED visit or antibiotics - encouraged to continue regular bronchopulmonary hygiene - provided with prescription for Augmentin while wintering in [place]. - will update referral for pulmonary rehab 2. Nocturnal hypoxemia - ICD9: 327.24, ICD10: G47.34 - nocturnal testing in December 2023 - continues to benefit from supplemental oxygen at night - [employer] 3. Restrictive lung disease - ICD9: 518.89, ICD10: J98.4 - stable PFT - encouraged continued exercise and weight loss F/u 6 months Portions of this documentation were copied and pasted from previous office visit notes in order to provide a cohesive continuity of the history. The note has been reviewed and edited and updated as necessary. Martinez Burton APRN.THAIS I spent a total of 45 minutes on the date of the service which included preparing to see the patient, [id number] patient care, completing clinical documentation, performing a medically appropriate examination, counseling and educating the patient/family/caregiver, and ordering medications, tests, or procedures. documented in this encounter [facility] 07-21-2024 History of Present illness Narrative PULM FUNCTION: Provider: Chrissy Moser MD Assisting Tech: Tori Sanabria RPFT Spirometry: 1 DLCO: 1 LV - Box: 1 documented in this encounter [facility] 07-20-2024 Telephone encounter Note Printed. Clare Baez DO [facility] 07-20-2024 Miscellaneous Notes Printed. Clare Baez DO Pended to print if appropriate. Mena Taylor LPN documented in this encounter [facility] 07-20-2024 Telephone encounter Note Pended to print if appropriate. Mena Taylor LPN [facility] 06-21-2024 History of Present illness Narrative Radiology Service Progress Note PATIENT NAME: Cong Smith DATE OF SERVICE: June 21, 2024 TIME: 9:37 AM PATIENT IDENTITY VERIFICATION COMPLETED USING TWO (2) IDENTIFIERS: Name and Date of confirmed by patient verbally. FALL SCREENING: Has the patient had 2 falls in the last year or 1 fall with injury or currently using an Ambulatory Assistive Device (Walker, Cane, Wheelchair, Crutches, etc.)? No PATIENT GENDER DATA: Female. status: : No status: NO. 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 Baez in hematology/oncology. She is now 9 years and 6 months post-transplant and presents for a yearly post-transplant visit. She noted having some fatigue as well as some residual neuropathy in her hands. She has had bilateral chronic thigh weakness and bilateral anterior thigh achy discomfort. She has had some chronic dyspnea on exertion as well, but denied having other new complaints. O: REVIEW OF SYSTEMS: Constitutional: No fevers, chills, night sweats, or weight loss. 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 Neck: No pain. Pulmonary: Chronic dyspnea on exertion; no coughing. Cardiac: No chest pain. GI: No nausea, vomiting, diarrhea, or blood loss. Back: No pain. Lymphatics: No palpable lymphadenopathy. : No hematuria or dysuria. Extremities: No edema; bilateral anterior thigh achy discomfort. Neurologic: Residual neuropathy in her hands; chronic bilateral thigh weakness. Skin: No rash. PHYSICAL EXAMINATION: GENERAL: Alert in no apparent distress. HEENT: Atraumatic, no epistaxis and a normal oral mucosa. NECK: Supple without lymphadenopathy. LUNGS: Clear to auscultation. CARDIAC: Regular rate and rhythm. ABDOMEN: Active bowel sounds, soft, nondistended, nontender, without appreciable hepatosplenomegaly; well-functioning ileostomy in place. BACK: No tenderness. LYMPHATICS: No appreciable lymphadenopathy. EXTREMITIES: No edema. NEUROLOGIC: Alert and oriented, without gross focal deficits. SKIN: No rash. Laboratory data: Reviewed in [facility] Impression/plan: (The following summary was copied from my note on 06/11/2022) She was diagnosed with FLT3 ITD+/NPM1+ AML after presenting with chest pain. She received 7+3 and eltrombopag (CASE 1493) for induction. Her induction course was complicated by chest pain of unclear etiology and a skin rash likely due to cytarabine or zosyn. She had a UTI (E. coli) as well as noted pulmonary nodules on CT scan chest 07/13/2014. She was treated with posaconazole on 07/18/2014 since lesions appeared while on voriconazole. Discharged from [facility] 11/03/2014 following cycle #3 HiDAC. 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 Did very well for first 100 days and was tolerating steroid taper. Several days after going home, developed nausea/vomiting. Culminated in total colectomy. Per discharge summary 08/20/2015: Ms. Smith is a 65 year old female who presents from [facility] with positive V/Q scan c/w intermediate risk of pulmonary embolism. 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 She presented to [facility] 08/06 with chest pain. Her pain is described as left and right sided with left sided shoulder pain. Some dyspnea that she attributes to pain not difficulty getting breath in. She denies radiation to her jaw or back, no diaphoresis, no heaviness. She has an allergy to iodine and omnipaque so it was not possible to do a CTPE for she had a V/Q scan which showed intermediate probability for PE. While at [facility] Dr. Welch from oncology saw the patient and had no further recs. Pulmonary saw the patient as well and had no further recs. Cardiology evaluated the patient and felt that her troponin elevation is most likely secondary to her PE which was of high suspicion given immobility and malignancy. He suggested aspirin, continue beta neda, hold statin, noted chronic RBBB. Troponins were 0.098 and 0.121. On admission here she is HDS, conversant, some residual left shoulder pain but improved overall, no fevers, chills, night sweats and limited SOB. No diarrhea, dysuria, cough, headaches. Last two hospitalizations: 06/04-06/19 Developed E. Coli bacteriemia and was treated with a full course of meropenem. She resides at [place] currently. 06/19-07/10 Recently admitted where she developed pneumatosis coli and was taken to surgery where she got a subtotal colectomy with end ileostomy. Had a full course of CMV treatment with ganciclovir, followed by ID. Hospital Course: Mrs Smith was admitted to the MICU and placed on a heparin drip for suspected pulmonary embolism. CT scan with PE protocol was negative for pulmonary embolism and the heparin drip was stopped. Once stabilized she was transferred to the BMT unit. [place] U/A and urine culture showed a UTI d/t a multi resistant E.Coli which was treatet with a week course of IV cetriaxone. Her hospital course was further complicated by atrial fibrillation with rapid ventricular response. This required transfer to cardiology ICU for continuous infusion amiodarone for hrt rate control. Her Coreg and norvasc was stopped due to low blood pressure. She was transitioned to oral Amiodarone, and her multiple medications were adjusted for interactions i.e ppx cipro and posa were dc'd. PT/OT recommended SNF upon discharge, final placement arrangements were made and she was transferred to [facility] Underwent ileoscopy on 08/17/2018 for potential GI bleed/GVHD. At approximately 28 cm proximal to the stoma one semi-pedunculated nonbleeding polyp was identified. It was 4 mm in diameter. Biopsies were obtained. Otherwise the examined portion of the ileum was normal. Pathology: 1. Ileum, biopsy (A) - Small intestinal mucosa with architectural distortion and occasional apoptotic bodies. See comment. 2. Ileum polyp, biopsy (B) - Small intestinal mucosa with architectural distortion and pyloric gland metaplasia, see comment. COMMENT The patient's history of sgwai-rufrjv-ngxo disease (GVHD) is noted. In the current specimen, only occasional apoptotic bodies are present, and do not meet our threshold for a diagnosis of GVHD (greater than 1 apoptotic body per piece of tissue). However, given their presence, some component of GVHD activity cannot be entirely ruled out. Both biopsies show evidence of chronic mucosal injury, possibly from prior GVHD. Chronic infection, chronic ischemia and chronic drug/medication injury could also produce these histologic features. An immunostain for CMV will be obtained and the results will be reported as an addendum. EGD on 08/31/2018. She was observed to have localized, moderate inflammation characterized by erosions, erythema and friability as well as serpentine ulcerations in the gastric antrum. Biopsies were obtained. The examined duodenum was normal. The lower third and middle third of the esophagus were both normal. Patient was advised to use sucralfate in addition to her proton pump inhibitor. Pathology: 1. Duodenum, biopsy (A) - Duodenal mucosa with minimal crypt apoptosis. 2. Antrum, biopsy (B) - Antral mucosa with chronic active inflammation and features of erosion. - See comment. 3. Esophagogastric junction, biopsy (C) - Reactive squamous mucosa and inflamed cardiac mucosa. - No evidence of intestinal metaplasia or dysplasia. 4. Mid esophagus, biopsy (D) - Mildly reactive squamous mucosa with rare intraepithelial eosinophils (up to 2 eosinophils in a single high power field). COMMENT The level of apoptotic activity seen the duodenum biopsy (part A) is insufficient to warrant a diagnosis of GVHD. H. pylori and CMV immunostains performed on the antrum biopsy (part B) to evaluate the chronic active inflammation are both negative. Underwent left hip replacement in January 2019. In April 2022 the patient had been evaluated by gynecology for vaginal and vulvar pain. She had continued on clobetasol Monistat without any relief. She was subsequently evaluated by her primary care physician and was having increasing lower extremity pain. She was directed to the [facility] ED and reportedly a CT scan demonstrated no etiology for the pain. Since this had further worsened she presented to [facility] on 05/18. A duplex ultrasound of her right lower extremity showed an acute DVT in the right distal external iliac vein, right common femoral vein, right deep femoral vein and right posterior tibial vein as well as in the right greater saphenous vein. She was started on Eliquis after initially receiving heparin. Transplant Summary: Date of transplant: 11/28/14 Protocol(s):3131, 1202 Preparative regimen: bu/flu Donor: NMDP HLA: complete 04/27 match Stem cell source: peripheral Total nucleated cell dose (x10e8/kg): 18.03 CD34 cell dose (x10e6/kg): 5.77 GVHD prophlaxis: tacrolimus -> sirolimus Donor / Recipient ABO: O+/A+ Minor ABO Incompatibility present? Yes Donor / Recipient CMV: +/+ Laboratory data: Reviewed in [facility] Chronic GVHD Flowsheet Assessment 06/01/2024 06/02/2023 06/11/2022 Chronic GVHD Assessment Karnofsky Score 70 70 70 ECOG Score 1 1 1 Has chronic GVHD developed since the last entry? No No No Is there persistence of chronic GVHD since the last entry? Yes No Unknown Comment Prior dry eyes controlled with current therapy per ophthalmology Biopsy Performed? No No No Skin staging? No Mouth staging? No Eyes staging? Yes Comment Her ocular symptoms have been controlled with her current therapy GI tract staging? No Liver staging? No Lung staging? Unknown Comment Although she has had some chronic dyspnea on exertion, this has not been definitive for GVHD Joint and fascia staging? No Other Organ Involvement Or Features? No Eyes Score 1 Keratoconjunctivitis sicca (KCS) confirmed by opthamologist? Yes Is the above attributable ENTIRELY to a non-GVHD cause? No Chronic GVHD Global Severity Score Mild Total Chronic GVHD Score 1 Subjective Clinician Opinion Of Severity Mild Allogeneic bone marrow transplant for FLT3+ AML -Her blood counts are normal and she is felt to be cured now 9 years and 6 months post-transplant Chronic GVHD - History of oral, ocular, liver, vaginal, and GI GVHD -her prior ocular symptoms have been controlled with her current therapy per ophthalmology (most likely burnt out GVHD) with whom she will continue to follow; no other overt evidence of GVHD off immunosuppressant therapy Chronic dyspnea on exertion - This is not definitive for GVHD, but she may have a follow-up echocardiogram and pulmonary function tests along with a follow-up in pulmonary clinic as scheduled Immunodeficiency -She previously received posttransplant immunizations and this fall she may receive an influenza vaccine Status post left total hip arthroplasty for avascular necrosis -No complaints currently; may follow-up in orthopedics as clinically indicated Bilateral thigh discomfort and prior reported steroid-induced myopathy -Although she has been on anticoagulation for a prior DVT, given the persistent pain in both anterior thighs she may have bilateral lower extremity arterial ultrasounds performed for further evaluation Gastroesophageal reflux disease without esophagitis - Continue Nexium Essential hypertension -Her blood pressure was 102/72 today and she continues on Lopressor and may further monitor her BP and follow-up with her local physician Osteoporosis -Previously stopped Forteo and calcium/vitamin D due to hypercalcemia in the past -She had a follow-up bone density test on 05/29/2024 that reported the lowest T-score of -3.0 in the right hip still consistent with osteoporosis - Continue follow-up with Dr Lopez regarding further management recommendations H/o Provoked DVT in 2016 - Continues on Eliquis, also s/p IVC filter placement at that time. - Also, has ?? History of A-fib, which is another indication for anticoagulation. 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 If they have further questions or problems he may contact me, the BMT office or one of her other physicians. She may continue to follow with her other physicians for the remainder of her nontransplant medical care. Sg Julien MD CC: DO Lidia Oakes MD (PCP) documented in this encounter [facility] 06-06-2024 Telephone encounter Note Alternate sent [facility] 06-06-2024 Miscellaneous Notes Alternate sent documented in this encounter [facility] 06-02-2024 Socorro Barragan RN - 06/02/2024 9:50 AM EDT NURSE: Socorro Rahman RN CALL PATIENT: Patient not aware of appt times requested, call pt before scheduling TREATMENT APPTS: None SEE RAD/OTHER ORDERS: Yes: ECHO - first available in [place] arterial ultrasound of BLE first available in [place] CONSULTS: documented in this encounter [facility] 06-01-2024 Telephone encounter Note Pt asking to get medication sent to [facility]. The patient has been identified by name and date of : Yes Caregiver verified no other encounters exist for this prescription request: Yes Caregiver confirmed with patient/requestor that no other refills are due, in the near future, with this provider at this time: Yes The last office visit in the department: 03/29/2024 Does the patient have a future office visit with this provider/department: Yes 09/21/2024 Requested Prescriptions Pending Prescriptions Disp Refills calcium carbonate 600 mg-cholecalciferol 200 units (CALCIUM 600 + D,3,) 600 mg-5 mcg (200 unit) tab 100 tablet 1 Sig: Take 1 tablet by mouth once daily. Conchis Marquis RN June 01, 2024 11:45 AM [facility] 06-01-2024 Miscellaneous Notes Pt asking to get medication sent to [facility]. The patient has been identified by name and date of : Yes Caregiver verified no other encounters exist for this prescription request: Yes Caregiver confirmed with patient/requestor that no other refills are due, in the near future, with this provider at this time: Yes The last office visit in the department: 03/29/2024 Does the patient have a future office visit with this provider/department: Yes 09/21/2024 Requested Prescriptions Pending Prescriptions Disp Refills calcium carbonate 600 mg-cholecalciferol 200 units (CALCIUM 600 + D,3,) 600 mg-5 mcg (200 unit) tab 100 tablet 1 Sig: Take 1 tablet by mouth once daily. Conchis Marquis RN June 01, 2024 11:45 AM documented in this encounter [facility] 06-01-2024 Nurse Note Additional intake questions: Has the patient had fever, nausea, vomiting, diarrhea, constipation, fatigue for > 1 week? Yes, fatigue and Provider Notified Does the patient have a decreased appetite? No Does patient want to see a Well Head Pumper? No (yes to any of above refer patient to schedulers for dietitian appointment) ) Does patient have any new or increased numbness or tingling of extremities? No Is patient interested in fertility information? No Does patient need any prescription refills? No Does patient have an advanced directive in place? Yes, copies are in [employer] Electronically Signed By: Shakir Reinoso LPN [facility] 06-01-2024 Nurse Note Additional intake questions: Has the patient had fever, nausea, vomiting, diarrhea, constipation, fatigue for > 1 week? Yes, fatigue and Provider Notified Does the patient have a decreased appetite? No Does patient want to see a Well Head Pumper? No (yes to any of above refer patient to schedulers for dietitian appointment) ) Does patient have any new or increased numbness or tingling of extremities? No Is patient interested in fertility information? No Does patient need any prescription refills? No Does patient have an advanced directive in place? Yes, copies are in [employer] Electronically Signed By: Shakir Reinoso LPN documented in this encounter [facility] 05-30-2024 Telephone encounter Note [facility] 05-30-2024 Miscellaneous Notes documented in this encounter [facility] 05-29-2024 History of Present illness Narrative Radiology Service Progress Note PATIENT NAME: Cong Smith DATE OF SERVICE: May 29, 2024 TIME: 10:06 AM PATIENT IDENTITY VERIFICATION COMPLETED USING TWO (2) IDENTIFIERS: Name and Date of confirmed by patient verbally. FALL SCREENING: Has the patient had 2 falls in the last year or 1 fall with injury or currently using an Ambulatory Assistive Device (Walker, Cane, Wheelchair, Crutches, etc.)? No PATIENT GENDER DATA: Female. status: : No status: NO. PATIENT RELEVANT IMPLANT DATA REVIEWED: Not Applicable PATIENT PRESENTS WITH AN IMPLANTABLE OR ATTACHED CLERICAL WAREHOUSE WORKER: No RADIOLOGY DEPARTMENT: Bone Density PERIPHERAL IV DATA: Not applicable SIGNED BY: RT Miryam(Tasia) May 29, 2024 10:06 AM documented in this encounter [facility] 03-29-2024 Instructions Param Vizcaino APRN.CNP - 03/29/2024 11:11 AM EDT BONE MINERAL DENSITY PATIENT INSTRUCTIONS ======= Bone mineral density testing measures the amount of calcium in certain parts of your bones. This information determines how strong your bones are. The test is used to detect osteoporosis, a disease in which the bone's mineral content and density are low, increasing a person's risk of fractures. The lumbar spine (lower back) and the hip are the skeletal sites usually examined. For the test, remember that: 1. You cannot take this test if you are . 2. Eat a normal diet on the day of the test. 3. Take your medications as you normally would. 4. DO NOT take calcium supplements (such as Tums) for 24 hours before the test. 5. On the day of the test, leave valuables (jewelry or credit cards) at home. 6. The test should be performed prior to oral, rectal or IV contrast studies, or at least 7 days after any of these studies. For the test, you may be asked to wear a hospital gown. You will lie on your back, on a padded table, in a comfortable position. Generally, you can resume your usual activities immediately. documented in this encounter [facility] 03-29-2024 History of Present illness Narrative SUBJECTIVE Cong Smith is a 74 year old female here today for a check up on her medical problems. Chief Complaint Patient presents with: F/U 6 months HPI Cong Smith is a 74 year old female. She is an established patient of Lidia Lopez MD. Here today for a routine 6 month follow up. Had labs prior to today but no recent b12 level, this has been high. Also no recent mag check, has been low. 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 Ileostomy is present. Prior osteoporosis. Reversed to osteopenia. Was on Forteo. Stopped because of calcium issues. Her medications were reviewed today and her list is now up to date. Medications Current Outpatient Medications Medication Sig esomeprazole (NEXIUM) 40 mg capsule TAKE 1 CAPSULE DAILY fluorometholone (FML LIQUID FILM) 0.1 % ophthalmic suspension Use 1 Drop in the left eye two times a day. erythromycin (ROMYCIN) 5 mg/gram (0.5 %) ophthalmic ointment Use 1 application in both eyes two times a day. levothyroxine (SYNTHROID) 112 mcg tablet Take 1 tablet by mouth once daily. Take on empty stomach. For Thyroid metoprolol tartrate, short acting, (LOPRESSOR) 25 mg tablet Take 1 tablet by mouth two times a day. apixaban (ELIQUIS) 5 mg tab(s) Take 1 tablet by mouth two times a day. Magnesium Glycinate (MAG GLYCINATE) 100 mg tab Take 1 tablet by mouth two times a day. Clobetasol Propionate 0.05 % gel Apply to affected area as needed. estradiol (ESTRACE) 0.01 % (0.1 mg/gram) vaginal cream Use 0.5 g vaginally two times a week. Cholecalciferol, Vitamin D3, 50 mcg (2,000 unit) cap Take 1 capsule by mouth once daily. cholestyramine (QUESTRAN) 4 gram packet Take 1 Packet by mouth three times daily with meals. amoxicillin (AMOXIL) 500 mg capsule take 4 capsules by mouth 1 hour prior to dental appointment lifitegrast (XIIDRA) 5 % ophthalmic drops Use 1 Drop in both eyes twice daily. albuterol (PROVENTIL) 2.5 mg /3 mL (0.083 %) nebulizer solution Use 3 mL via nebulizer three times daily as needed for wheezing/shortness of breath. Inhale over 5-15 minutes mometasone (NASONEX) 50 mcg/actuation nasal spray Use 2 Sprays in the nose once daily. Rinse mouth after use. lidocaine (XYLOCAINE) 5 % ointment Apply to affected area as needed (to urethral area). use a small amount to affected area qid prn pain cyanocobalamin/cobamamide (B12 SUBLINGUAL) Dissolve under the tongue once daily. sodium chloride (NEBUSAL) 3 % nebulizer solution Use 4 mL via nebulizer twice daily. albuterol HFA (PROAIR HFA) 90 mcg/actuation inhaler Inhale 2 Puffs as instructed every 4 hours as needed for wheezing/shortness of breath. Flaxseed Oil 1,000 mg cap Take 1,000 mg by mouth once daily. sodium chloride (PRATIMA 128) 5 % ophthalmic solution Use 1 Drop in both eyes as needed. MULTIVITAMIN ORAL Take 1 tablet by mouth once daily. ipratropium bromide (ATROVENT) 42 mcg (0.06 %) nasal spray Use 2 Sprays in the nose twice daily as needed. Lactobacillus acidophilus (PROBIOTIC ORAL) Take 1 capsule by mouth once daily. Nebulizer and Compressor For Neb 1 Each twice daily. 0.9 % sodium chloride (0.9% NACL) NURSING USE ONLY: USED FOR IMPLANTED VASCULAR ACCESS DEVICE (IVAD) ACCESS. AMBULATORY/OUTPATIENT: PLEASE REORDER UPON HOSPITAL DISCHARGE May access implanted vascular access device (IVAD) as needed for treatment. Flush IVAD with 10-20 mL NS every 4 weeks and PRN when IVAD not in use. No current facility-administered medications for this visit. ALLERGIES Allergen Reactions Fish Containing Pro* Unknown Forteo [Teriparatid* Other: See Comments Hypercalcemia 08/2018 Gadolinium-Containi* Hives Iodinated Contrast * Hives Iodine [Contrast Dy* Hives Hives, sneezing Omnipaque [Iohexol] Hives Sneezing, pruritis (ears), and hive. 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 -S/p induction with 7+3 + eltombopag (CASE 1493) course complicated by E.coli UTI and pulmonary nodule treated with posaconazole. -S/p 3 cycles of HiDAC, all courses complicated by neutropenic fevers and concern for worsening fungal pneumonia although this was not supported by cultures and bronchoscopy. 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 -BMBX is neg for leukemia 02/28/15. 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 Hypercalcemia - 09/14/2018 Comment: Last Assessment & Plan: Ca Normalizing with MIVF. Possibly s/t Forteo, currently on hold. Can be the explanation for her somnolence and confusion, n/v, PEPE. Continue MIVF at 150ml/hr. Checking Ca Q8H. iPTH pending. Consult endocrine to help manage Forteo for going home. 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) ([facility]) - 01/11/2018 Iron Overload Due to Repeated Red Blood Cell Transfusions - 07/16/2017 Chronic Anticoagulation - 06/03/2017 Osteoporosis - 09/07/2016 Comment: Severe osteoporosis - on teriparatide and calcium/vitamin D supplementation daily Plan: - Continue current regimen Vitamin D Deficiency - 09/07/2016 Ileostomy Present ([facility]) - 09/07/2016 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 ([facility]) - 11/21/2015 Comment: Chronic affecting colon s/p partial colectomy 05/2015 for severe pneumatosis coli w free air in abdomen also with CMV reactivation with CMV colitis - currently on tacrolimus and oral budesinide will check tacro level Svt (Supraventricular Tachycardia) ([facility]) - 08/13/2015 Comment: -CHADSVASC score is 2 (female, HTN) no chf, no PAD, age <65 Echo done 08/06/15 with no structural abnormalities Gerd (Gastroesophageal Reflux Disease) - 04/11/2015 Comment: GERD without esophagitis - Stable on famotidine Plan: - Continue famotidine Primary Hypertension Allogeneic bone marrow transplant Comment: Date of transplant: 11/28/14 Protocol(s):3131, 1202 Preparative regimen: bu/flu Donor: NMDP HLA: complete 04/27 match Stem cell source: peripheral Total nucleated cell dose (x10e8/kg): 18.03 CD34 cell dose (x10e6/kg): 5.77 GVHD prophlaxis: tacro(changed to sirolimus d/t renal function and MS changes) Donor / Recipient ABO: O+/A+ Minor ABO Incompatibility present? Yes Donor / Recipient CMV: +/+ Social History Tobacco Use Smoking status: Never Smokeless tobacco: Never Vaping Use Vaping Use: Never used Substance Use Topics Alcohol use: Not Currently Comment: Quit 2013, previously 1-2 drinks per year Drug use: Never Review of Systems Respiratory: Negative. Cardiovascular: Negative. OBJECTIVE BP 110/74 Pulse 74 Wt 158 lb (71.7kg) SpO2 96% Physical Exam Vitals and nursing note reviewed. Constitutional: General: She is awake. She is not in acute distress. Appearance: Normal appearance. She is well-developed and well-groomed. She is not ill-appearing, toxic-appearing or diaphoretic. HENT: Head: Normocephalic. Right Ear: External ear normal. Left Ear: External ear normal. Nose: Nose normal. Eyes: General: Vision grossly intact. Conjunctiva/sclera: Conjunctivae normal. Pupils: Pupils are equal, round, and reactive to light. Neck: Vascular: No JVD. Trachea: Trachea normal. Cardiovascular: Rate and Rhythm: Normal rate and regular rhythm. Pulses: Normal pulses. Heart sounds: Normal heart sounds. No murmur heard. Pulmonary: Effort: Pulmonary effort is normal. No accessory muscle usage, prolonged expiration or respiratory distress. Breath sounds: Normal breath sounds. Musculoskeletal: Cervical back: Neck supple. Skin: General: Skin is warm and dry. Capillary Refill: Capillary refill takes less than 2 seconds. Neurological: General: No focal deficit present. Mental Status: She is alert and oriented to person, place, and time. Mental status is at baseline. Psychiatric: Attention and Perception: Attention and perception normal. Mood and Affect: Mood and affect normal. Speech: Speech normal. Behavior: Behavior normal. Behavior is cooperative. Thought Content: Thought content normal. Cognition and Memory: Cognition and memory normal. Judgment: Judgment normal. ASSESSMENT/PLAN: 1. AML (acute myeloid leukemia) in remission ([facility]) - ICD9: 205.01, ICD10: C92.01 (primary diagnosis) Following with hem/onc. 2. 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 Hypomagnesemia - ICD9: 275.2, ICD10: E83.42 - MAGNESIUM 4. High serum vitamin B12 - ICD9: 790.99, ICD10: R79.89 - VITAMIN B12 5. Ileostomy present ([facility]) - ICD9: V44.2, ICD10: Z93.2 Stable. 6. Hypothyroidism, unspecified type - ICD9: 244.9, ICD10: E03.9 Thyroid labs stable. 7. Screening for osteoporosis - ICD9: V82.81, ICD10: Z13.820 - DXA-AXIAL SKELETON - BD DXA TRABECULAR BONE SCORE (TBS) 8. Asymptomatic menopause - ICD9: V49.81, ICD10: Z78.0 - DXA-AXIAL SKELETON - BD DXA TRABECULAR BONE SCORE (TBS) Portions of this note have been entered by ancillary staff. I have reviewed and when necessary edited, so that they are an adequate record of my encounter with this patient Please note that parts of this document were created using voice recognition software and therefore may contain grammatical errors. Patient verbalizes understanding of instructions from today's visit and in agreement with treatment plan. Questions answered. Agrees to call the office if questions, concerns of issues with acute symptoms not improving or if they worsen. See diagnoses and orders for additional plan(s). Allergies and medications were reviewed, list was updated, and refills given if needed. Past medical, surgical, social, and family history reviewed and updated as appropriate. Encouraged proper diet & exercise as well as compliance with taking medications. Age-appropriate health preventative measures were discussed. Return if symptoms worsen or fail to improve, for Keep next scheduled appointment.. Param Vizcaino APRN-THAIS documented in this encounter [facility] 03-06-2024 History of Present illness Narrative Diagnosis: 1) 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 2) GVHD of the GI tract, liver, oral mucosa, vaginal mucosa and conjunctiva. HPI: The patient is a 74 yo female who was diagnosed with FLT3 ITD+/NPM1+ AML after presenting with chest pain. She received 7+3 and eltrombopag (CASE 1493) for induction. Her induction course was complicated by chest pain of unclear etiology and a skin rash likely due to cytarabine or zosyn. She had a UTI (E. coli) as well as noted pulmonary nodules on CT scan chest 07/13/2014. She was treated with posaconazole on 07/18/2014 since lesions appeared while on voriconazole. [facility]charged [facility] 11/03/2014 following cycle #3 HiDAC. 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 Did very well for first 100 days and was tolerating steroid taper. Several days after going home, developed nausea/vomiting. Culminated in total colectomy. Per discharge summary 08/20/2015: Ms. Smith is a 65 year old female who presents from [place] with positive V/Q scan c/w intermediate risk of pulmonary embolism. 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 She presented to [facility] 08/06 with chest pain. Her pain is described as left and right sided with left sided shoulder pain. Some dyspnea that she attributes to pain not difficulty getting breath in. She denies radiation to her jaw or back, no diaphoresis, no heaviness. She has an allergy to iodine and omnipaque so it was not possible to do a CTPE for she had a V/Q scan which showed intermediate probability for PE. While at [facility] Dr. Welch from oncology saw the patient and had no further recs. Pulmonary saw the patient as well and had no further recs. Cardiology evaluated the patient and felt that her troponin elevation is most likely secondary to her PE which was of high suspicion given immobility and malignancy. He suggested aspirin, continue beta neda, hold statin, noted chronic RBBB. Troponins were 0.098 and 0.121. On admission here she is HDS, conversant, some residual left shoulder pain but improved overall, no fevers, chills, night sweats and limited SOB. No diarrhea, dysuria, cough, headaches. Last two hospitalizations: 06/04-06/19 Developed E. Coli bacteriemia and was treated with a full course of meropenem. She resides at [place] currently. 06/19-07/10 Recently admitted where she developed pneumatosis coli and was taken to surgery where she got a subtotal colectomy with end ileostomy. Had a full course of CMV treatment with ganciclovir, followed by ID. Hospital Course: Mrs Smith was admitted to the MICU and placed on a heparin drip for suspected pulmonary embolism. CT scan with PE protocol was negative for pulmonary embolism and the heparin drip was stopped. Once stabilized she was transferred to the BMT unit. [place] U/A and urine culture showed a UTI d/t a multi resistant E.Coli which was treatet with a week course of IV cetriaxone. Her hospital course was further complicated by atrial fibrillation with rapid ventricular response. This required transfer to cardiology ICU for continuous infusion amiodarone for hrt rate control. Her Coreg and norvasc was stopped due to low blood pressure. She was transitioned to oral Amiodarone, and her multiple medications were adjusted for interactions i.e ppx cipro and posa were dc'd. PT/OT recommended SNF upon discharge, final placement arrangements were made and she was transferred to [facility] Underwent ileoscopy on 08/17/2018 for potential GI bleed/GVHD. At approximately 28 cm proximal to the stoma one semi-pedunculated nonbleeding polyp was identified. It was 4 mm in diameter. Biopsies were obtained. Otherwise the examined portion of the ileum was normal. Pathology: 1. Ileum, biopsy (A) - Small intestinal mucosa with architectural distortion and occasional apoptotic bodies. See comment. 2. Ileum polyp, biopsy (B) - Small intestinal mucosa with architectural distortion and pyloric gland metaplasia, see comment. COMMENT The patient's history of [id number] disease (GVHD) is noted. In the current specimen, only occasional apoptotic bodies are present, and do not meet our threshold for a diagnosis of GVHD (greater than 1 apoptotic body per piece of tissue). However, given their presence, some component of GVHD activity cannot be entirely ruled out. Both biopsies show evidence of chronic mucosal injury, possibly from prior GVHD. Chronic infection, chronic ischemia and chronic drug/medication injury could also produce these histologic features. An immunostain for CMV will be obtained and the results will be reported as an addendum. EGD on 08/31/2018. She was observed to have localized, moderate inflammation characterized by erosions, erythema and friability as well as serpentine ulcerations in the gastric antrum. Biopsies were obtained. The examined duodenum was normal. The lower third and middle third of the esophagus were both normal. Patient was advised to use sucralfate in addition to her proton pump inhibitor. Pathology: 1. Duodenum, biopsy (A) - Duodenal mucosa with minimal crypt apoptosis. 2. Antrum, biopsy (B) - Antral mucosa with chronic active inflammation and features of erosion. - See comment. 3. Esophagogastric junction, biopsy (C) - Reactive squamous mucosa and inflamed cardiac mucosa. - No evidence of intestinal metaplasia or dysplasia. 4. Mid esophagus, biopsy (D) - Mildly reactive squamous mucosa with rare intraepithelial eosinophils (up to 2 eosinophils in a single high power field). COMMENT The level of apoptotic activity seen the duodenum biopsy (part A) is insufficient to warrant a diagnosis of GVHD. H. pylori and CMV immunostains performed on the antrum biopsy (part B) to evaluate the chronic active inflammation are both negative. Underwent left hip replacement in January 2019. Was seen by gynecology at the beginning of April 2022 for vaginal and vulvar pain. It had come on a few days prior. She continued clobetasol Monistat without any relief. [place] like entire area was swollen and sore. Seen by primary care physician in mid April 2022. Was having increasing leg pain. Was directed to the ED at [facility]. Evidently noncontrast CT demonstrated no etiology for pain. Pain continued to worsen and she presented to [facility] on 05/18/2022. She underwent a right lower extremity venous duplex exam which showed acute DVT in the right lower extremity in the right distal external iliac vein, right common femoral vein, right femoral vein, right deep femoral vein and right posterior tibial vein. Acute clot was also noted in the right greater saphenous vein. She was started on anticoagulation with Eliquis. Presents for ongoing oncologic management. Interim history: Eyes doing well. On a regiment for dry eyes. Vision 20/20 and subjectively better. Still gets thrush on tongue surface. Doesn't hurt or alter taste. She was told in the past she has a kidney cyst that should be followed and she is concerned that no one has been doing that. Legs remain weak. Still has occasional high ostomy output and previously cholestyramine really helped. PMH, medications and allergies personally reviewed by me today. Any changes documented in appropriate section. PHYSICAL EXAM: Vitals: Blood pressure 126/81, pulse 77, temperature 36.3 C (97.3 F), temperature source Temporal, weight 71.7 kg (158 lb), SpO2 97%. Well-appearing and in no acute distress. EYES: Sclerae are anicteric bilaterally. Mild conjunctival injection bilaterally. LYMPHATIC: There is no palpable cervical or supraclavicular adenopathy. RESPIRATORY: Inspiratory breath sounds are of normal intensity in all hammond. Few coarse crackles at the bases. CARDIOVASCULAR: Rhythm is regular. ABDOMEN: The abdomen is nondistended. Still with generalized tenderness throughout. Extremities: Very mild swelling distal right lower extremity when compared to the left. SKIN: No jaundice. LABS: Latest Ref Rng 03/06/2024 WBC 3.70 - 11.00 k/uL 7.53 RBC 3.90 - 5.20 m/uL 4.42 Hemoglobin 11.5 - 15.5 g/dL 14.8 Hematocrit 36.0 - 46.0 % 43.5 MCV 80.0 - 100.0 fL 98.4 MCH 26.0 - 34.0 pg 33.5 MCHC 30.5 - 36.0 g/dL 34.0 RDW-CV 11.5 - 15.0 % 15.3 (H) Platelet Count 150 - 400 k/uL 238 MPV 9.0 - 12.7 fL 10.0 Neut% % 28.6 Abs Neut (ANC) 1.45 - 7.50 k/uL 2.15 Lymph% % 58.2 Abs Lymph 1.00 - 4.00 k/uL 4.38 (H) [place]% % 8.9 Abs [place] <0.87 k/uL 0.67 Eosin% % 3.7 Abs Eosin <0.46 k/uL 0.28 Baso% % 0.5 Abs Baso <0.11 k/uL 0.04 Immature Gran % % 0.1 IMMATURE GRANS (ABS) <0.10 k/uL <0.03 NRBC /100 WBC 0.0 Absolute nRBC <0.01 k/uL <0.01 DTYPE Auto Protein, Total 6.3 - 8.0 g/dL 6.6 Albumin 3.9 - 4.9 g/dL 4.0 Calcium 8.5 - 10.2 mg/dL 9.2 Bilirubin, Total 0.2 - 1.3 mg/dL 0.5 Alkaline Phosphatase 34 - 123 U/L 106 AST 13 - 35 U/L 30 ALT 7 - 38 U/L 29 Glucose 74 - 99 mg/dL 122 (H) BUN 7 - 21 mg/dL 21 Creatinine 0.58 - 0.96 mg/dL 0.80 Sodium 136 - 144 mmol/L 138 Potassium 3.7 - 5.1 mmol/L 3.7 Chloride 98 - 107 mmol/L 106 CO2 22 - 30 mmol/L 21 (L) Anion Gap 8 - 15 mmol/L 11 eGFR >=60 mL/min/1.73m 78 ASSESSMENT/PLAN: (C92.01) Acute myeloid leukemia in remission (HCC) (primary encounter diagnosis) (T86.09, D89.813) 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 -Previous GVHD symptoms of the vaginal area, mouth and GI tract resolved. Still has occasional conjunctival irritation. Responding well to topical eyedrops. -Developed symptoms of chronic bronchitis and bronchiectasis. Evaluated by pulmonary medicine. -Reviewed labs. Plan: -OV with labs in 6 months. (Z86.718) History of DVT (deep vein thrombosis) Assessment: -Patient has history of left-sided lower extremity DVT. She had been off Eliquis for about a year. Restarted when had acute DVT right leg 04/2022. -Has IVC filter in place. -Has been tolerating apixaban at anticoagulant doses without unusual bleeding or unexplained bruising. Plan: -Continue apixaban twice daily. Portions of this documentation were copied and pasted from previous office visit notes in order to provide a cohesive continuity of the history. The note has been reviewed and edited and updated as necessary. I spent a total of 15 minutes on the date of the service which included preparing to see the patient, [id number] patient care, completing clinical documentation, obtaining and/or reviewing separately obtained history, performing a medically appropriate examination, counseling and educating the patient/family/caregiver, communicating with other HCPs (not separately reported), and communicating results to the patient/family/caregiver. Clare Baez DO documented in this encounter [facility] 02-28-2024 History of Present illness Narrative ASSESSMENT/PLAN: 1. 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 Dry eyes, bilateral - ICD9: 375.15, ICD10: H04.123 See 1 3. Recurrent erosion of right cornea - ICD9: 371.42, ICD10: H18.831 Abrasion ~1999, intermittent symptoms since Monitor 4. Pseudophakia - ICD9: V43.1, ICD10: Z96.1 Lenses look good Sen Walton MD I have confirmed and edited as necessary the relevant ophthalmic history, ROS, and the neuro exam findings as obtained by others. I have seen and examined Cong Smith. I have discussed the case and the management of this patient's care with the Resident/Fellow, if applicable. I also have reviewed and agree with the assessment and plan as stated above and agree with all of its relevant components. Sen Walton MD documented in this encounter [facility] 02-10-2024 Instructions Selina Driscoll APRN.CNS - 02/10/2024 10:00 AM EDT Wash the affected area with soap and water, okay to scrub with washcloth. Place an alcohol swab over the area for few minutes once daily. Apply antibacterial ointment to the affected area. If not clearing up in the next few days please complete mammogram and ultrasound. documented in this encounter [facility] 02-10-2024 History of Present illness Narrative SUBJECTIVE: Diabetic Foot Exam due on 03/21/2022 Dilated Retinal Exam due on 03/30/2023 LDL Cholesterol due on 05/04/2023 Bone Density Screening due on 06/30/2023 Advance Directive Discussion due on 09/20/2023 Behavioral Health Screening Never done Urine Albumin:Creatinine Ratio due on 12/29/2023 Mammogram Screening due on 06/18/2024 HPI Cong Smith is a 73 year old female. 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 fib with RVR, gazcc-mrtzvm-gfkk disease, type 2 diabetes osteoporosis, vitamin D deficiency, ileostomy and colostomy, present status post colectomy, stage III chronic kidney disease. Presents today noting skin lesion on the right breast nipple, noted 2-3 days ago. No known injury, no pain or itching. No mass is present. No drainage. No fever. Review of Systems Constitutional: Negative. Skin: + skin lesion Objective There were no vitals taken for this visit. Physical Exam Vitals and nursing note reviewed. Constitutional: Appearance: Normal appearance. HENT: Head: Normocephalic and atraumatic. Eyes: Conjunctiva/sclera: Conjunctivae normal. Cardiovascular: Rate and Rhythm: Normal rate. Pulmonary: Effort: Pulmonary effort is normal. Skin: General: Skin is warm and dry. Comments: Has what appears to be a pimple on the right nipple, no breast mass or lymphadenopathy noted Neurological: General: No focal deficit present. Mental Status: She is alert and oriented to person, place, and time. ALLERGIES Allergen Reactions Fish Containing Pro* Unknown Forteo [Teriparatid* Other: See Comments Hypercalcemia 08/2018 Gadolinium-Containi* Hives Iodinated Contrast * Hives Iodine [Contrast Dy* Hives Hives, sneezing Omnipaque [Iohexol] Hives Sneezing, pruritis (ears), and hive. MEDICATIONS levothyroxine (SYNTHROID) 112 mcg tablet Take 1 tablet by mouth once daily. Take on empty stomach. For Thyroid metoprolol tartrate, short acting, (LOPRESSOR) 25 mg tablet Take 1 tablet by mouth two times a day. apixaban (ELIQUIS) 5 mg tab(s) Take 1 tablet by mouth two times a day. Magnesium Glycinate (MAG GLYCINATE) 100 mg tab Take 1 tablet by mouth two times a day. Clobetasol Propionate 0.05 % gel Apply to affected area. estradiol (ESTRACE) 0.01 % (0.1 mg/gram) vaginal cream Use 0.5 g vaginally two times a week. Cholecalciferol, Vitamin D3, 50 mcg (2,000 unit) cap Take 1 capsule by mouth once daily. esomeprazole (NEXIUM) 40 mg capsule Take 1 capsule by mouth once daily. cholestyramine (QUESTRAN) 4 gram packet Take 1 Packet by mouth three times daily with meals. amoxicillin (AMOXIL) 500 mg capsule take 4 capsules by mouth 1 hour prior to dental appointment erythromycin (ROMYCIN) 5 mg/gram (0.5 %) ophthalmic ointment Use 1 application in both eyes twice daily. lifitegrast (XIIDRA) 5 % ophthalmic drops Use 1 Drop in both eyes twice daily. fluorometholone (FML LIQUID FILM) 0.1 % ophthalmic suspension Use 1 Drop in the left eye twice daily. (Patient taking differently: Use 1 Drop in the left eye two times a day. Using sparingly PRN) albuterol (PROVENTIL) 2.5 mg /3 mL (0.083 %) nebulizer solution Use 3 mL via nebulizer three times daily as needed for wheezing/shortness of breath. Inhale over 5-15 minutes mometasone (NASONEX) 50 mcg/actuation nasal spray Use 2 Sprays in the nose once daily. Rinse mouth after use. lidocaine (XYLOCAINE) 5 % ointment Apply to affected area as needed (to urethral area). use a small amount to affected area qid prn pain cyanocobalamin/cobamamide (B12 SUBLINGUAL) Dissolve under the tongue once daily. sodium chloride (NEBUSAL) 3 % nebulizer solution Use 4 mL via nebulizer twice daily. albuterol HFA (PROAIR HFA) 90 mcg/actuation inhaler Inhale 2 Puffs as instructed every 4 hours as needed for wheezing/shortness of breath. Nebulizer and Compressor For Neb 1 Each twice daily. Flaxseed Oil 1,000 mg cap Take 1,000 mg by mouth once daily. 0.9 % sodium chloride (0.9% NACL) NURSING USE ONLY: USED FOR IMPLANTED VASCULAR ACCESS DEVICE (IVAD) ACCESS. AMBULATORY/OUTPATIENT: PLEASE REORDER UPON HOSPITAL DISCHARGE May access implanted vascular access device (IVAD) as needed for treatment. Flush IVAD with 10-20 mL NS every 4 weeks and PRN when IVAD not in use. sodium chloride (PRATIMA 128) 5 % ophthalmic solution Use 1 Drop in both eyes as needed. MULTIVITAMIN ORAL Take 1 tablet by mouth once daily. ipratropium bromide (ATROVENT) 42 mcg (0.06 %) nasal spray Use 2 Sprays in the nose twice daily as needed. Lactobacillus acidophilus (PROBIOTIC ORAL) Take 1 capsule by mouth once daily. PAST MEDICAL HISTORY Diagnosis Date Abnormal echocardiogram 06/03/2017 Abnormality of gait 08/10/2016 Acute pulmonary embolism (HCC) 08/06/2015 --Patient presented with pleuritic Chest Pain, Heparin gtt initiated until PE ruled out --Negative for PE CT with PE protocol. Heparin drip was discontinued. PEPE (acute kidney injury) ([facility]) Non-oliguric renal failure. Creat increased to 1.6. Baseline sCr 0.6-1. --change fk to sirolimus. Resolved. Allogeneic bone marrow transplant Date of transplant: 11/28/14 Protocol(s):3131, 1202 Preparative regimen: bu/flu Donor: NMDP HLA: complete 8/8 match Stem cell source: peripheral Total nucleated cell dose (x10e8/kg): 18.03 CD34 cell dose (x10e6/kg): 5.77 GVHD prophlaxis: tacro(changed to sirolimus d/t renal function and MS changes) Donor / Recipient ABO: O+/A+ Minor ABO Incompatib AML (acute myelogenous leukemia) ([facility]) s/p BMT in 11/2014 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) 06/28/2014 -FLT3/NPM1+ AML in CR1. Dx 06/28/2014. -S/p induction with 7+3 + eltombopag (CASE 1493) course complicated by E.coli UTI and pulmonary nodule treated with posaconazole. -S/p 3 cycles of HiDAC, all courses complicated by neutropenic fevers and concern for worsening fungal pneumonia although this was not supported by cultures and bronchoscopy. 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 Treated w ganciclovir. 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 Lab draws: 11/28, 12/05, 12/12, 12/13, 4/, 01/09, 5/6, 6/10 Grade GVHD: every Wednesday starting 12/05, and prior to discharge. Pseudophakia of both eyes RBBB (right bundle branch block) 10/01/2015 RUQ abdominal pain S/P bone marrow transplant ([facility]) 08/27/2015 AML. Per LDT fci charges 08/22/15 S/P partial colectomy 06/20/2015 --06/20/2015- ex lap, subtotal colectomy, and end ileostomy SBO (small bowel obstruction) ([facility]) 01/25/2017 Secondary adrenal insufficiency ([facility]) 09/07/2016 Squamous cell carcinoma Left cheek Syncope Thrush 06/20/2022 Type 2 diabetes mellitus with microalbuminuria, without long-term current use of insulin (HCC) 07/02/2016 Unspecified hypothyroidism Social History Tobacco Use Smoking status: Never Smokeless tobacco: Never Vaping Use Vaping Use: Never used Substance Use Topics Alcohol use: Not Currently Comment: Quit 2013, previously 1-2 drinks per year Drug use: Never ASSESSMENT/PLAN: 1. Lesion of skin of breast - ICD9: 709.8, ICD10: L98.8 Exam is consistent with pimple on the right nipple. Recommend treating topically. If not resolving or if it progresses then recommend further evaluation with mammogram and ultrasound. - [facility] DI[facility]NOSTIC RIGHT - US BREAST LTD RIGHT Advised: Wash the affected area with soap and water, okay to scrub with washcloth. Place an alcohol swab over the area for few minutes once daily. Apply antibacterial ointment to the affected area. If not clearing up in the next few days please complete mammogram and ultrasound. Selina Driscoll APRN.BIG DATA HADOOP DEVELOPER Medical Decision Making: Problems: Low: Acute, uncomplicated illness or injury Risk: Moderate: Drug management Medical Decision Making Level: 3 - Low documented in this encounter [facility] 12-20-2023 Miscellaneous Notes Signed order by Dr. Moser for Pulmonary Rehab faxed to [facility] Out[facility]. Kamala Mathew LPN documented in this encounter [facility] 12-20-2023 History of Present illness Narrative Images from the original note were not included. Sy Matthews MD Interventional Cardiology [address] [address] Chief Complaint Patient presents with: Follow Up HISTORY OF PRESENT ILLNESS: Ms. Smith is a 73 year old female seen in my office for follow-up prior history of supraventricular tachycardia and exertional dyspnea patient had an echocardiography and nuclear stress test both were completely normal Beta-neda control her palpitation and SVT Cardiac Risk Factors age (male over 45, female over 55), hyperlipidemia, family history of CAD PAST MEDICAL HISTORY Diagnosis Date Abnormal echocardiogram 06/03/2017 Abnormality of gait 08/10/2016 Acute pulmonary embolism (HCC) 08/06/2015 --Patient presented with pleuritic Chest Pain, Heparin gtt initiated until PE ruled out --Negative for PE CT with PE protocol. Heparin drip was discontinued. PEPE (acute kidney injury) ([facility]) Non-oliguric renal failure. Creat increased to 1.6. Baseline sCr 0.6-1. --change fk to sirolimus. Resolved. 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 Dx 06/28/2014. -S/p induction with 7+3 + eltombopag (CASE 1493) course complicated by E.coli UTI and pulmonary nodule treated with posaconazole. -S/p 3 cycles of HiDAC, all courses complicated by neutropenic fevers and concern for worsening fungal pneumonia although this was not supported by cultures and bronchoscopy. 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 Treated w ganciclovir. 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 Lab draws: 11/28, 12/05, 12/12, 12/13, 12/26, 01/09, 01/23, 02/2710 Grade GVHD: every Wednesday starting 12/05, and prior to discharge. Pseudophakia of both eyes RBBB (right bundle branch block) 10/01/2015 RUQ abdominal pain S/P bone marrow transplant ([facility]) 08/27/2015 AML. Per LDT fci charges 08/22/15 S/P partial colectomy 06/20/2015 --06/20/2015- ex lap, subtotal colectomy, and end ileostomy SBO (small bowel obstruction) ([facility]) 01/25/2017 Secondary adrenal insufficiency ([facility]) 09/07/2016 Squamous cell carcinoma Left cheek Syncope Thrush 06/20/2022 Type 2 diabetes mellitus with microalbuminuria, without long-term current use of insulin ([facility]) 07/02/2016 Unspecified hypothyroidism PAST SURGICAL HISTORY Procedure Laterality Date ANOSCOPY DX W/COLLJ SPEC BR/WA SPX WHEN PRFRMD 02/22/2020 ARTHRP ACETBLR/PROX FEM PROSTC AGRFT/ALGRFT Left 01/2019 BONE MARROW TRANSPLANT, ALLOGENEIC 11/28/2014 CATARACT EXTRACTION HX Right 08/2016 DELIVERY ONLY x2 , low cervical COLECTOMY TOTAL W/ILEOANAL ANASTMS 06/20/2015 Ileostomy due to resection for bowel perforation ESOPHAGOGASTRODUODENOSCOPY TRANSORAL DIAGNOSTIC 09/06/2018 EGD IR IVC FILTER PLACEMENT 11/21/2015 Celect [place] LAPS SURG CHOLECYSTECTOMY W/CHOLANGIOGRAPHY 11/05/09 PICC LINE INSERT/CONSULT 06/28/2014 PICC LINE INSERT/CONSULT 03/12/2015 REMOVE TONSILS AND ADENOIDS; AGE 12 OVER FAMILY HISTORY Problem Relation Age of Onset Cataract Father other (Cancer, liver) Father Liver cancer at 84 Diabetes Mother Osteoporosis Mother Cataract Mother other (chf) Mother other (dementia) Mother vascular Cataract Brother Thyroid Brother antibodies in thyroid Cataract Brother Thyroid Brother other (MTHFR) Brother and his children are positive as well No Ocular Disease Maternal Grandmother other (encelphalitis) Maternal Grandmother Heart Maternal Grandfather mi in his 70 No Ocular Disease Maternal Grandfather Alzheimer's Disease Paternal Grandmother No Ocular Disease Paternal Grandmother No Ocular Disease Paternal Grandfather Social History Tobacco Use Smoking status: Never Smokeless tobacco: Never Vaping Use Vaping Use: Never used Substance Use Topics Alcohol use: Not Currently Comment: Quit 2013, previously 1-2 drinks per year Drug use: Never ALLERGIES Allergen Reactions Fish Containing Pro* Unknown Forteo [Teriparatid* Other: See Comments Hypercalcemia 08/2018 Gadolinium-Containi* Hives Iodinated Contrast * Hives Iodine [Contrast Dy* Hives Hives, sneezing Omnipaque [Iohexol] Hives Sneezing, pruritis (ears), and hive. Medications: Current Outpatient Medications Medication Sig Dispense Refill apixaban (ELIQUIS) 5 mg tab(s) Take 1 tablet by mouth two times a day. 180 tablet 3 Magnesium Glycinate (MAG GLYCINATE) 100 mg tab Take 1 tablet by mouth two times a day. Clobetasol Propionate 0.05 % gel Apply to affected area. estradiol (ESTRACE) 0.01 % (0.1 mg/gram) vaginal cream Use 0.5 g vaginally two times a week. 85 g 2 Cholecalciferol, Vitamin D3, 50 mcg (2,000 unit) cap Take 1 capsule by mouth once daily. 90 capsule 3 esomeprazole (NEXIUM) 40 mg capsule Take 1 capsule by mouth once daily. 90 capsule 3 cholestyramine (QUESTRAN) 4 gram packet Take 1 Packet by mouth three times daily with meals. 90 Packet 5 amoxicillin (AMOXIL) 500 mg capsule take 4 capsules by mouth 1 hour prior to dental appointment erythromycin (ROMYCIN) 5 mg/gram (0.5 %) ophthalmic ointment Use 1 application in both eyes twice daily. 10.5 g 3 lifitegrast (XIIDRA) 5 % ophthalmic drops Use 1 Drop in both eyes twice daily. 180 Each 3 levothyroxine (SYNTHROID) 112 mcg tablet Take 1 tablet by mouth once daily. Take on empty stomach. For Thyroid 90 tablet 3 fluorometholone (FML LIQUID FILM) 0.1 % ophthalmic suspension Use 1 Drop in the left eye twice daily. (Patient taking differently: Use 1 Drop in the left eye two times a day. Using sparingly PRN) 5 mL 1 albuterol (PROVENTIL) 2.5 mg /3 mL (0.083 %) nebulizer solution Use 3 mL via nebulizer three times daily as needed for wheezing/shortness of breath. Inhale over 5-15 minutes 900 mL 3 mometasone (NASONEX) 50 mcg/actuation nasal spray Use 2 Sprays in the nose once daily. Rinse mouth after use. 17 g 3 lidocaine (XYLOCAINE) 5 % ointment Apply to affected area as needed (to urethral area). use a small amount to affected area qid prn pain 30 g 1 cyanocobalamin/cobamamide (B12 SUBLINGUAL) Dissolve under the tongue once daily. sodium chloride (NEBUSAL) 3 % nebulizer solution Use 4 mL via nebulizer twice daily. 1200 mL 3 albuterol HFA (PROAIR HFA) 90 mcg/actuation inhaler Inhale 2 Puffs as instructed every 4 hours as needed for wheezing/shortness of breath. 18 g 11 Nebulizer and Compressor For Neb 1 Each twice daily. 1 Each 1 Flaxseed Oil 1,000 mg cap Take 1,000 mg by mouth once daily. 0.9 % sodium chloride (0.9% NACL) NURSING USE ONLY: USED FOR IMPLANTED VASCULAR ACCESS DEVICE (IVAD) ACCESS. AMBULATORY/OUTPATIENT: PLEASE REORDER UPON HOSPITAL DISCHARGE May access implanted vascular access device (IVAD) as needed for treatment. Flush IVAD with 10-20 mL NS every 4 weeks and PRN when IVAD not in use. 1 Syringe 100 sodium chloride (PRATIMA 128) 5 % ophthalmic solution Use 1 Drop in both eyes as needed. MULTIVITAMIN ORAL Take 1 tablet by mouth once daily. ipratropium bromide (ATROVENT) 42 mcg (0.06 %) nasal spray Use 2 Sprays in the nose twice daily as needed. 1 Bottle 5 Lactobacillus acidophilus (PROBIOTIC ORAL) Take 1 capsule by mouth once daily. metoprolol tartrate, short acting, (LOPRESSOR) 25 mg tablet Take 1 tablet by mouth two times a day. 180 tablet 3 No current facility-administered medications for this visit. Review of Systems Constitutional: Negative for chills, diaphoresis, fever, malaise/fatigue and weight loss. HENT: Negative for congestion, ear discharge, ear pain, hearing loss, nosebleeds, sinus pain, sore throat and tinnitus. Eyes: Negative for blurred vision, double vision, photophobia, pain, discharge and redness. Respiratory: Positive for shortness of breath. Negative for cough, hemoptysis, sputum production, wheezing and stridor. Cardiovascular: Negative for chest pain, palpitations, orthopnea, claudication, leg swelling and PND. Gastrointestinal: Negative for abdominal pain, blood in stool, constipation, diarrhea, heartburn, melena, nausea and vomiting. Genitourinary: Negative for dysuria, flank pain, frequency, hematuria and urgency. Musculoskeletal: Negative for back pain, falls, joint pain, myalgias and neck pain. Skin: Negative for itching and rash. Neurological: Negative for dizziness, tingling, tremors, sensory change, speech change, focal weakness, seizures, loss of consciousness, weakness and headaches. Endo/Heme/Allergies: Negative for environmental allergies and polydipsia. Does not bruise/bleed easily. Psychiatric/Behavioral: Negative for depression, hallucinations, memory loss, substance abuse and suicidal ideas. The patient is not nervous/anxious and does not have insomnia. Physical Examination: Vitals:BP 108/63 Pulse 65 Wt 158 lb (71.7kg) SpO2 96% BP w/Orthostatic Vitals Date and Time Orthostatic BP Orthostatic Pulse BP Pulse BP Position BP Site BP Cuff Size 12/20/23 1130 -- -- 108/63 65 -- -- -- Last 2 Encounter Wt Readings: Date: Wt: 12/20/2023 0 kg () 12/20/2023 71.7 kg (158 lb) Physical Exam Constitutional: General: She is not in acute distress. Appearance: She is not diaphoretic. HENT: Head: Normocephalic and atraumatic. Right Ear: External ear normal. Left Ear: External ear normal. Nose: Nose normal. Mouth/Throat: Mouth: Mucous membranes are moist. Eyes: General: Right eye: No discharge. Left eye: No discharge. Conjunctiva/sclera: Conjunctivae normal. Pupils: Pupils are equal, round, and reactive to light. Cardiovascular: Rate and Rhythm: Normal rate and regular rhythm. Heart sounds: Normal heart sounds, S1 normal and S2 normal. No murmur heard. No friction rub. No gallop. No S3 or S4 sounds. Pulmonary: Effort: Pulmonary effort is normal. No respiratory distress. Breath sounds: Normal breath sounds. No wheezing or rales. Chest: Chest wall: No tenderness. Musculoskeletal: General: Normal range of motion. Cervical back: Normal range of motion and neck supple. Skin: General: Skin is warm and dry. Neurological: Mental Status: She is alert and oriented to person, place, and time. Psychiatric: Mood and Affect: Mood normal. Thought Content: Thought content normal. Judgment: Judgment normal. Pertinent Labs: CBC: Hemoglobin (g/dL) Date Value 09/02/2023 14.4 09/25/2021 15.2 Hematocrit (%) Date Value 09/02/2023 42.1 09/25/2021 43.6 WBC (k/uL) Date Value 09/02/2023 8.04 09/25/2021 12.74 Platelet Count (k/uL) Date Value 09/02/2023 206 09/25/2021 265 BMP: Glucose (mg/dL) Date Value 09/02/2023 94 09/15/2021 109 Potassium (mmol/L) Date Value 09/02/2023 3.8 09/15/2021 4.1 Sodium (mmol/L) Date Value 09/02/2023 136 09/15/2021 135 Chloride (mmol/L) Date Value 09/02/2023 104 09/15/2021 102 CO2 (mmol/L) Date Value 09/02/2023 25 09/15/2021 19 Creatinine (mg/dL) Date Value 09/02/2023 0.87 09/15/2021 1.00 BUN (mg/dL) Date Value 09/02/2023 26 09/15/2021 32 Anion Gap (mmol/L) Date Value 09/02/2023 7 09/15/2021 14 Calcium (mg/dL) Date Value 09/15/2021 9.7 Calcium, Total (mg/dL) Date Value 09/02/2023 9.6 INR: Lipid Profile: Cholesterol, Total Date Value Ref Range Status 05/04/2022 155 <200 mg/dL Final Comment: <200 mg/dL, Desirable 200-239 mg/dL, Borderline high >239 mg/dL, High HDL Cholesterol Date Value Ref Range Status 05/04/2022 58 >39 mg/dL Final Comment: 40-59 mg/dL, Acceptable >59 mg/dL, High: Negative risk factor for coronary heart disease <40 mg/dL, Low: Positive risk factor for coronary heart disease LDL Cholesterol Date Value Ref Range Status 05/04/2022 68 <100 mg/dL Final Comment: <100 mg/dL, Optimal 100-129 mg/dL, Near optimal/above optimal 130-159 mg/dL, Borderline high 160-189 mg/dL, High >189 mg/dL, Very high Secondary prevention optimal LDL Cholesterol levels are recommended to be < 70 mg/dL Triglyceride Date Value Ref Range Status 05/04/2022 144 <150 mg/dL Final Comment: <150 mg/dL, Normal 150-199 mg/dL, Borderline high 200-499 mg/dL, High >499 mg/dL, Very high Hemoglobin A1C: No results found for: HGBA1C TSH: No results found for: TSHREFL Prior Cardiac Testing none Assessment and Plan: 73 years old female patient with supraventricular tachycardia ASSESSMENT/PLAN: 1. SVT (supraventricular tachycardia) (HCC) - ICD9: 427.89, ICD10: I47.10 (primary diagnosis) Rate control with beta-blockers - ECG COMPLETE 2. Paroxysmal atrial fibrillation (HCC) - ICD9: 427.31, ICD10: I48.0 Currently in sinus rhythm with right bundle branch block Maintained on Eliquis - ECG COMPLETE 3. Primary hypertension - ICD9: 401.9, ICD10: I10 - Controlled - Continue current medications - Recommend home blood pressure monitoring, to bring results to next visit - Encouraged sodium restriction, DASH or Mediterranean diet - Recommend regular aerobic exercise - ECG COMPLETE 4. Acute deep vein thrombosis (DVT) of femoral vein of both lower extremities (HCC) - ICD9: 453.41, ICD10: I82.413 Prior history on Eliquis Sy Matthews MD Follow up plannin months Electronically signed by Sy Matthews MD on December 20, 2023, 12:13 PM The above note was partially created using a dictation recognition software. A reasonable attempt has been made to correct any errors. documented in this encounter [facility] 12-20-2023 Instructions Chrissy Moser MD - 12/20/2023 10:45 AM EDT Referral to [facility] Pulmonary Rehab Nocturnal oximetry on 1 L documented in this encounter [facility] 12-20-2023 History of Present illness Narrative Images from the original note were not included. . [facility] Note Patient name: Cong Smith PCP: Lidia Lopez MD CC: SOB HPI: Cong Smith 73 year old female non-smoker with PMH significant for AF, VTE on Eliquis and s/p IVC filter, AML s/p allogeneic BMT 2014, GVHD (GI tract, liver, mucosa, eyes), GERD, HTN, s/p ileostomy, DM, hypothyroidism, and bronchiectasis. Current therapy consists of bronchopulmonary hygiene with acapella device and hypertonic saline. Requires oxygen at night. No VALDEMAR per sleep study. She has not had any recent exacerbation of her bronchiectasis, pneumonia or bronchitis. She has cough mainly productive of clear mucus but her major respiratory complaint is dyspnea on exertion. Despite her attempts at increasing her endurance she states that she hits a wall at half a mile. She cannot seem to get beyond that distance. No wheezing or chest pain. No night sweats or fevers. Previous pulmonary function test show restriction and no significant obstruction DME: [employer] 1 L at nighttime DATA: Labs: Component Ref Range & Units 3 mo ago (09/02/23) 6 mo ago (06/01/23) 8 mo ago (03/31/23) WBC 3.70 - 11.00 k/uL 8.04 9.73 9.65 RBC 3.90 - 5.20 m/uL 4.33 4.53 4.38 Hemoglobin 11.5 - 15.5 g/dL 14.4 15.2 14.5 Hematocrit 36.0 - 46.0 % 42.1 43.3 43.0 MCV 80.0 - 100.0 fL 97.2 95.6 98.2 MCH 26.0 - 34.0 pg 33.3 33.6 33.1 MCHC 30.5 - 36.0 g/dL 34.2 35.1 33.7 RDW-CV 11.5 - 15.0 % 14.9 13.7 14.5 Platelet Count 150 - 400 k/uL 206 239 219 MPV 9.0 - 12.7 fL 10.2 11.0 9.8 Neutrophils % % 30.7 27.0 32.0 Abs Neut 1.45 - 7.50 k/uL 2.47 2.63 3.09 Lymphocytes % % 56.2 62.0 53.0 Abs Lymph 1.00 - 4.00 k/uL 4.52 High 6.03 High 5.11 High Monocytes % % 9.2 10.0 10.0 Abs [place] <0.87 k/uL 0.74 0.97 High 0.97 High Eosinophils % % 3.4 1.0 5.0 Abs Eosin <0.46 k/uL 0.27 0.10 0.48 High Basophils % % 0.4 0.0 0.0 Abs Baso <0.11 k/uL 0.03 0.00 0.00 Immature Granulocytes % % 0.1 Abs Immature Gran <0.10 k/uL <0.03 NRBC /100 WBC 0.0 0.0 0.0 Absolute nRBC <0.01 k/uL <0.01 <0.01 <0.01 Diff Type Auto Imaging / Diagnostic Studies: I personally reviewed the images of her last abdominal CT obtained less than a year ago are significant for lower lung cuts showing bibasilar fibrosis and mildly elevated right hemidiaphragm Echocardiogram 2021: CONCLUSIONS: - Technically difficult exam due to body habitus. - Exam indication: Dyspnea - The left ventricle is small. Left ventricular systolic function is normal. EF = 57 5% (2D 4-ch.) Normal left ventricular diastolic function. - The right ventricle is normal in size. Right ventricular systolic function is normal. - There are no significant valvular abnormalities. - Exam was compared with the prior echocardiographic exam performed on 07/29/2020, no significant change. PAST MEDICAL HISTORY Diagnosis Date Abnormal echocardiogram 06/03/2017 Abnormality of gait 08/10/2016 Acute pulmonary embolism (HCC) 08/06/2015 --Patient presented with pleuritic Chest Pain, Heparin gtt initiated until PE ruled out --Negative for PE CT with PE protocol. Heparin drip was discontinued. PEPE (acute kidney injury) ([facility]) Non-oliguric renal failure. Creat increased to 1.6. Baseline sCr 0.6-1. --change fk to sirolimus. Resolved. 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 Dx 06/28/2014. -S/p induction with 7+3 + eltombopag (CASE 1493) course complicated by E.coli UTI and pulmonary nodule treated with posaconazole. -S/p 3 cycles of HiDAC, all courses complicated by neutropenic fevers and concern for worsening fungal pneumonia although this was not supported by cultures and bronchoscopy. 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 Treated w ganciclovir. 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 Lab draws: 11/28, 12/05, 12/12, 12/13, 12/26, 01/09, 5/, 02/2710 Grade GVHD: every Wednesday starting 12/05, and prior to discharge. Pseudophakia of both eyes RBBB (right bundle branch block) 10/01/2015 RUQ abdominal pain S/P bone marrow transplant ([facility]) 08/27/2015 AML. Per LDT [facility] charges 08/22/15 S/P partial colectomy 06/20/2015 --06/20/2015- ex lap, subtotal colectomy, and end ileostomy SBO (small bowel obstruction) ([facility]) 01/25/2017 Secondary adrenal insufficiency ([facility]) 09/07/2016 Squamous cell carcinoma Left cheek Syncope Thrush 06/20/2022 Type 2 diabetes mellitus with microalbuminuria, without long-term current use of insulin ([facility]) 07/02/2016 Unspecified hypothyroidism ALLERGIES Allergen Reactions Fish Containing Pro* Unknown Forteo [Teriparatid* Other: See Comments Hypercalcemia 08/2018 Gadolinium-Containi* Hives Iodinated Contrast * Hives Iodine [Contrast Dy* Hives Hives, sneezing Omnipaque [Iohexol] Hives Sneezing, pruritis (ears), and hive. apixaban (ELIQUIS) 5 mg tab(s) Take 1 tablet by mouth two times a day. Magnesium Glycinate (MAG GLYCINATE) 100 mg tab Take 1 tablet by mouth two times a day. Clobetasol Propionate 0.05 % gel Apply to affected area. estradiol (ESTRACE) 0.01 % (0.1 mg/gram) vaginal cream Use 0.5 g vaginally two times a week. metoprolol tartrate, short acting, (LOPRESSOR) 25 mg tablet Take 1 tablet by mouth twice daily. Cholecalciferol, Vitamin D3, 50 mcg (2,000 unit) cap Take 1 capsule by mouth once daily. esomeprazole (NEXIUM) 40 mg capsule Take 1 capsule by mouth once daily. cholestyramine (QUESTRAN) 4 gram packet Take 1 Packet by mouth three times daily with meals. amoxicillin (AMOXIL) 500 mg capsule take 4 capsules by mouth 1 hour prior to dental appointment erythromycin (ROMYCIN) 5 mg/gram (0.5 %) ophthalmic ointment Use 1 application in both eyes twice daily. lifitegrast (XIIDRA) 5 % ophthalmic drops Use 1 Drop in both eyes twice daily. levothyroxine (SYNTHROID) 112 mcg tablet Take 1 tablet by mouth once daily. Take on empty stomach. For Thyroid fluorometholone (FML LIQUID FILM) 0.1 % ophthalmic suspension Use 1 Drop in the left eye twice daily. (Patient taking differently: Use 1 Drop in the left eye two times a day. Using sparingly PRN) albuterol (PROVENTIL) 2.5 mg /3 mL (0.083 %) nebulizer solution Use 3 mL via nebulizer three times daily as needed for wheezing/shortness of breath. Inhale over 5-15 minutes mometasone (NASONEX) 50 mcg/actuation nasal spray Use 2 Sprays in the nose once daily. Rinse mouth after use. lidocaine (XYLOCAINE) 5 % ointment Apply to affected area as needed (to urethral area). use a small amount to affected area qid prn pain cyanocobalamin/cobamamide (B12 SUBLINGUAL) Dissolve under the tongue once daily. sodium chloride (NEBUSAL) 3 % nebulizer solution Use 4 mL via nebulizer twice daily. albuterol HFA (PROAIR HFA) 90 mcg/actuation inhaler Inhale 2 Puffs as instructed every 4 hours as needed for wheezing/shortness of breath. Nebulizer and Compressor For Neb 1 Each twice daily. Flaxseed Oil 1,000 mg cap Take 1,000 mg by mouth once daily. 0.9 % sodium chloride (0.9% NACL) NURSING USE ONLY: USED FOR IMPLANTED VASCULAR ACCESS DEVICE (IVAD) ACCESS. AMBULATORY/OUTPATIENT: PLEASE REORDER UPON HOSPITAL DISCHARGE May access implanted vascular access device (IVAD) as needed for treatment. Flush IVAD with 10-20 mL NS every 4 weeks and PRN when IVAD not in use. sodium chloride (PRATIMA 128) 5 % ophthalmic solution Use 1 Drop in both eyes as needed. MULTIVITAMIN ORAL Take 1 tablet by mouth once daily. ipratropium bromide (ATROVENT) 42 mcg (0.06 %) nasal spray Use 2 Sprays in the nose twice daily as needed. Lactobacillus acidophilus (PROBIOTIC ORAL) Take 1 capsule by mouth once daily. Social History Tobacco Use Smoking status: Never Smokeless tobacco: Never Vaping Use Vaping Use: Never used Substance Use Topics Alcohol use: Not Currently Comment: Quit 2013, previously 1-2 drinks per year Drug use: Never FAMILY HISTORY Problem Relation Age of Onset Cataract Father other (Cancer, liver) Father Liver cancer at 84 Diabetes Mother Osteoporosis Mother Cataract Mother other (chf) Mother other (dementia) Mother vascular Cataract Brother Thyroid Brother antibodies in thyroid Cataract Brother Thyroid Brother other (MTHFR) Brother and his children are positive as well No Ocular Disease Maternal Grandmother other (encelphalitis) Maternal Grandmother Heart Maternal Grandfather mi in his 70 No Ocular Disease Maternal Grandfather Alzheimer's Disease Paternal Grandmother No Ocular Disease Paternal Grandmother No Ocular Disease Paternal Grandfather PAST SURGICAL HISTORY Procedure Laterality Date ANOSCOPY DX W/COLLJ SPEC BR/WA SPX WHEN PRFRMD 02/22/2020 ARTHRP ACETBLR/PROX FEM PROSTC AGRFT/ALGRFT Left 01/2019 BONE MARROW TRANSPLANT, ALLOGENEIC 11/28/2014 CATARACT EXTRACTION HX Right 08/2016 DELIVERY ONLY x2 , low cervical COLECTOMY TOTAL W/ILEOANAL ANASTMS 06/20/2015 Ileostomy due to resection for bowel perforation ESOPHAGOGASTRODUODENOSCOPY TRANSORAL DIAGNOSTIC 09/06/2018 EGD IR IVC FILTER PLACEMENT 11/21/2015 Celect [place] LAPS SURG CHOLECYSTECTOMY W/CHOLANGIOGRAPHY 11/05/09 PICC LINE INSERT/CONSULT 06/28/2014 PICC LINE INSERT/CONSULT 03/12/2015 REMOVE TONSILS AND ADENOIDS; AGE 13 OVER PMH, Social history, family history and surgical history reviewed and updated in EMR REVIEW OF SYSTEMS: CONSTITUTIONAL: No fevers, chills, nightsweats, unintended weight loss. Fatigue HEENT: Denies nasal congestion/sinus symptoms, allergy problems. EYES: No diplopia or blurry vision, or dry eyes CARDIOVASCULAR: No chest pain, palpitations, orthopnea, edema. PULM: See HPI GI: No current GI issue NEURO: No new balance problems. Numbness in hands and feet at night MUSC-SKEL: No muscle weakness INTEGUMENTARY: No new skin changes or rashes PHYSICAL EXAMINATION: BP 116/74 Pulse 82 Resp 12 Wt 0 lb (0.0kg) SpO2 96% General Appearance: Obese female, NAD. Skin: Skin color, texture, turgor normal, no suspicious rashes or lesions. Head: Normocephalic, no masses, lesions, tenderness or abnormalities. Eyes: Sclera, conjunctiva normal. Neck: No JVD, no masses, no adenopathy. Lungs: Not labored, normal to percussion, no wheezes or crackles. Heart: Regular rate and rhythm, no murmurs or gallops. Extremities: Ankle edema, no clubbing. Assessment/Plan: 1. Bronchiectasis, uncomplicated -She will continue on her current mucus clearance techniques/bronchopulmonary hygiene -Update pulmonary function testing 2. GVHD status post bone marrow transplant -No prior evidence of bronchiolitis obliterans 3. Nocturnal hypoxemia -Repeat oximetry on 1 L 4. Restrictive lung disease/TORRES -No obvious pulmonary manifestations of GVHD -May be related purely to her obesity -Weight loss advised -Referral to pulmonary rehab Chrissy Moser MD [facility] documented in this encounter [facility] 11-30-2023 Miscellaneous Notes Patient has been identified by name and date of : Patient phones for refill(s): Requested Prescriptions Pending Prescriptions Disp Refills apixaban (ELIQUIS) 5 mg tab(s) 180 tablet 3 Sig: Take 1 tablet by mouth two times a day. Date of last office visit in primary care: 09/29/2023 Date of next office visit in primary care: 03/29/2024 Please advise. Thank you. Stephanie Carvajal RN. documented in this encounter [facility] 11-18-2023 Miscellaneous Notes Patient notified of results and provider's instructions. Patient verbalizes understanding. Zayda Valero LPN Added folate lab order so can do with other labs ordered. May resume folate now if wants or can wait till after gets lab to see whether needs to take it. Patient returning call. To answer provider's questions below: -Patient does not recall when she was told to stop the folate. States she was in and out of the hospital so many times that she does not recall. -Patient states she believes she was told to start the folate initially, due to her transplant because everything was out of whack. Patient asking if she should remain off of the folate at this time? Pt's next OV is in March, with Param. Please advise patient. Thank you. LM for patient to contact office regarding below. Maia Morgan MA I don't know who told her to stop folate. I did see that a level was checked 2018 and was >20.0, and a RBC folate was also checked 06/25/2022 and was greater than 1330 ng/ml (normal is over 366). When was she told to stop folate? Also wonder when and why folate was started. POPULATION HEALTH NAVIGATION OUTREACH Action/FYI : Please review and provide recommendations, a message can be sent through [facility] as patient frequently uses. Patient reports that she was told to discontinue Folic Acid - patient inquiring as to why she had to discontinue the Folic Acid and if she should resume Reviewed EMR - last notation of Folic Acid being discontinued was the following notes within [facility] 03/24/2023 Patient Identified by Name and : YES, via phone Outreach Outcome/Action Spoke to patient / parent / legal guardian: No action required (information or reminder only) Navigation Signature: Rosalia Ross MA November 12, 2023 11:06 AM documented in this encounter [facility] 11-12-2023 History of Present illness Narrative POPULATION HEALTH NAVIGATION OUTREACH Action/FYI Patient returning my call from initial patient outreach [facility] 2.16.24 Discuss/Due for: Mammogram due for 06/18/2024, Hgb a1c previously ordered/standing orders Follow Up previously scheduled with Lidia Lopez MD Outcome: 1st attempt - Spoke to patient 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 N/A Navigation Signature: Rosalia Ross MA November 12, 2023 10:49 AM POPULATION HEALTH NAVIGATION OUTREACH Action/FYI [facility] 2.16.24 Discuss/Due for: Mammogram due for 06/18/2024, Hgb a1c previously ordered/standing orders Follow Up previously scheduled with Lidia Lopez MD Outcome: 1st attempt - Left Message 2nd attempt - MyChart message sent Patient Identified by Name and : NO Outreach Outcome/Action Unable to reach patient: Left message MyChart message sent Did you use a PCP flex slot to schedule this appointment? N/A Reason for Outreach HCC or suspected condition Payer: Payor: [employer] MEDICARE / Plan: AET MEDICARE PPO / Product Type: PPO / Care Gap Reviewed:: Breast Cancer screening Reminder: Reminder note to check Health Maintenance for items below Health Maintenance items due: Alpha-1 Antitrypsin Deficiency Screening Never done Diabetic Foot Exam due on 03/21/2022 Dilated Retinal Exam due on 03/30/2023 LDL Cholesterol due on 05/04/2023 Advance Directive Discussion due on 09/20/2023 Navigation Signature: Rosalia Ross MA November 12, 2023 8:51 AM documented in this encounter [facility] 11-02-2023 History of Present illness Narrative CDM Telephonic Outreach Provider Action/FYI Contacted for: Engagement Contact made with patient: No, left message. Sarai Mas RN November 02, 2023 6:09 PM documented in this encounter [facility] 11-01-2023 Miscellaneous Notes Patient has been identified by name and date of : Yes, Provider Lidia Lopez Date 11/01/2023 Time 11/01/2023 Patient phones for refill(s): Requested Prescriptions Pending Prescriptions Disp Refills apixaban (ELIQUIS) 5 mg tab(s) 60 tablet 0 Sig: Take 1 tablet by mouth two times a day. Date of last office visit in primary care: 09/29/2023 Date of next office visit in primary care: 03/29/2024 CHANGE OF PHARMACY FOR SHORT TERM FILL WHILE IN [facility] Please advise. Thank you. Natalie Ramsey. documented in this encounter [facility] 09-29-2023 History of Present illness Narrative This note was created using [employer]. Subjective Cong Smith is a 73 year old female. Patient presents with: F/U 6 months: Labs prior SUBJECTIVE: Cong Smith is a 73 year old year old lady here today for 6 month follow up appointment for review of medical conditions. Loves her coffee. Drinks throughout the day. Takes protein drink in AM. 8 ounces. 32 ounces of electrolytes. 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 B12 SL now--cut back to 5 days a week. Arm hurt--elbow. Going to [place] till November. See assessment and plan for other issues addressed. Depression Screening PHQ-2 Score PHQ-9 Score 09/29/2023 0 - Depression screening tool completed and reviewed. Based on score and interview, patient is not at risk for depression. Screening tool discussed with patient, and I recommended no further intervention at this time. PAST MEDICAL HISTORY Diagnosis Date Abnormal echocardiogram 06/03/2017 Abnormality of gait 08/10/2016 Acute pulmonary embolism (HCC) 08/06/2015 --Patient presented with pleuritic Chest Pain, Heparin gtt initiated until PE ruled out --Negative for PE CT with PE protocol. Heparin drip was discontinued. PEPE (acute kidney injury) (HCC) Non-oliguric renal failure. Creat increased to 1.6. Baseline sCr 0.6-1. --change fk to sirolimus. Resolved. 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 Dx 06/28/2014. -S/p induction with 7+3 + eltombopag (CASE 1493) course complicated by E.coli UTI and pulmonary nodule treated with posaconazole. -S/p 3 cycles of HiDAC, all courses complicated by neutropenic fevers and concern for worsening fungal pneumonia although this was not supported by cultures and bronchoscopy. 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 Treated w ganciclovir. 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 Lab draws: 11/28, 12/05, 12/12, 12/13, 4/8, 4/22, 5/6, 6/10 Grade GVHD: every Wednesday starting 12/05, and prior to discharge. Pseudophakia of both eyes RBBB (right bundle branch block) 10/01/2015 RUQ abdominal pain S/P bone marrow transplant ([facility]) 08/27/2015 AML. Per LDT [facility] charges 08/22/15 S/P partial colectomy 06/20/2015 --06/20/2015- ex lap, subtotal colectomy, and end ileostomy SBO (small bowel obstruction) ([facility]) 01/25/2017 Secondary adrenal insufficiency ([facility]) 09/07/2016 Squamous cell carcinoma Left cheek Syncope Thrush 06/20/2022 Type 2 diabetes mellitus with microalbuminuria, without long-term current use of insulin ([facility]) ([facility]) 07/02/2016 Unspecified hypothyroidism Current Outpatient Medications Medication Sig Clobetasol Propionate 0.05 % gel Apply to affected area. estradiol (ESTRACE) 0.01 % (0.1 mg/gram) vaginal cream Use 0.5 g vaginally two times a week. metoprolol tartrate, short acting, (LOPRESSOR) 25 mg tablet Take 1 tablet by mouth twice daily. Cholecalciferol, Vitamin D3, 50 mcg (2,000 unit) cap Take 1 capsule by mouth once daily. cholestyramine (QUESTRAN) 4 gram packet Take 1 Packet by mouth three times daily with meals. amoxicillin (AMOXIL) 500 mg capsule take 4 capsules by mouth 1 hour prior to dental appointment erythromycin (ROMYCIN) 5 mg/gram (0.5 %) ophthalmic ointment Use 1 application in both eyes twice daily. lifitegrast (XIIDRA) 5 % ophthalmic drops Use 1 Drop in both eyes twice daily. levothyroxine (SYNTHROID) 112 mcg tablet Take 1 tablet by mouth once daily. Take on empty stomach. For Thyroid fluorometholone (FML LIQUID FILM) 0.1 % ophthalmic suspension Use 1 Drop in the left eye twice daily. (Patient taking differently: Use 1 Drop in the left eye two times a day. Using sparingly PRN) apixaban (ELIQUIS) 5 mg tab(s) Take 1 tablet by mouth twice daily. albuterol (PROVENTIL) 2.5 mg /3 mL (0.083 %) nebulizer solution Use 3 mL via nebulizer three times daily as needed for wheezing/shortness of breath. Inhale over 5-15 minutes mometasone (NASONEX) 50 mcg/actuation nasal spray Use 2 Sprays in the nose once daily. Rinse mouth after use. lidocaine (XYLOCAINE) 5 % ointment Apply to affected area as needed (to urethral area). use a small amount to affected area qid prn pain cyanocobalamin/cobamamide (B12 SUBLINGUAL) Dissolve under the tongue. Magnesium Glycinate (MAG GLYCINATE) 100 mg tab Take 1 tablet by mouth twice daily. (Patient taking differently: Take 100 mg by mouth two times a day. Took yesterday morning) sodium chloride (NEBUSAL) 3 % nebulizer solution Use 4 mL via nebulizer twice daily. albuterol HFA (PROAIR HFA) 90 mcg/actuation inhaler Inhale 2 Puffs as instructed every 4 hours as needed for wheezing/shortness of breath. Nebulizer and Compressor For Neb 1 Each twice daily. Flaxseed Oil 1,000 mg cap Take 1,000 mg by mouth once daily. 0.9 % sodium chloride (0.9% NACL) NURSING USE ONLY: USED FOR IMPLANTED VASCULAR ACCESS DEVICE (IVAD) ACCESS. AMBULATORY/OUTPATIENT: PLEASE REORDER UPON HOSPITAL DISCHARGE May access implanted vascular access device (IVAD) as needed for treatment. Flush IVAD with 10-20 mL NS every 4 weeks and PRN when IVAD not in use. sodium chloride (PRATIMA 128) 5 % ophthalmic solution Use 1 Drop in both eyes as needed. MULTIVITAMIN ORAL Take 1 tablet by mouth once daily. ipratropium bromide (ATROVENT) 42 mcg (0.06 %) nasal spray Use 2 Sprays in the nose twice daily as needed. Lactobacillus acidophilus (PROBIOTIC ORAL) Take 1 capsule by mouth once daily. esomeprazole (NEXIUM) 40 mg capsule Take 1 capsule by mouth once daily. No current facility-administered medications for this visit. Review of Systems Objective BP 112/62 Pulse 72 Temp 36.4 C (97.5 F) Resp 18 Wt 72.6 kg (160 lb) SpO2 96% BMI 33.44 kg/m Physical Exam Constitutional: Appearance: Normal appearance. HENT: Head: Normocephalic. Eyes: Conjunctiva/sclera: Conjunctivae normal. Cardiovascular: Rate and Rhythm: Normal rate and regular rhythm. Heart sounds: Normal heart sounds. Pulmonary: Effort: Pulmonary effort is normal. Breath sounds: Normal breath sounds. Skin: General: Skin is warm and dry. Neurological: General: No focal deficit present. Mental Status: She is alert and oriented to person, place, and time. Psychiatric: Mood and Affect: Mood normal. Behavior: Behavior normal. Thought Content: Thought content normal. Judgment: Judgment normal. Component Latest Ref Rng & Units 03/25/2023 03/26/2023 03/31/2023 06/01/2023 09/02/2023 WBC 3.70 - 11.00 k/uL 6.11 12.09 (H) 9.65 9.73 8.04 RBC 3.90 - 5.20 m/uL 4.08 3.64 (L) 4.38 4.53 4.33 Hemoglobin 11.5 - 15.5 g/dL 13.5 11.9 14.5 15.2 14.4 Hematocrit 36.0 - 46.0 % 40.4 35.8 (L) 43.0 43.3 42.1 MCV 80.0 - 100.0 fL 99.0 98.4 98.2 95.6 97.2 MCH 26.0 - 34.0 pg 33.1 32.7 33.1 33.6 33.3 MCHC 30.5 - 36.0 g/dL 33.4 33.2 33.7 35.1 34.2 RDW-CV 11.5 - 15.0 % 14.3 14.3 14.5 13.7 14.9 Platelet Count 150 - 400 k/uL 248 213 219 239 206 MPV 9.0 - 12.7 fL 10.2 10.2 9.8 11.0 10.2 NRBC /100 WBC 0.0 0.0 0.0 0.0 Absolute nRBC <0.01 k/uL <0.01 <0.01 <0.01 <0.01 <0.01 Neut% % 59.4 32.0 27.0 30.7 Abs Neut (ANC) 1.45 - 7.50 k/uL 3.63 3.09 2.63 2.47 Lymph% % 39.4 53.0 62.0 56.2 Abs Lymph 1.00 - 4.00 k/uL 2.41 5.11 (H) 6.03 (H) 4.52 (H) [place]% % 0.7 10.0 10.0 9.2 Abs [place] <0.87 k/uL 0.04 0.97 (H) 0.97 (H) 0.74 Eosin% % 0.0 5.0 1.0 3.4 Abs Eosin <0.46 k/uL <0.03 0.48 (H) 0.10 0.27 Baso% % 0.0 0.0 0.0 0.4 Abs Baso <0.11 k/uL <0.03 0.00 0.00 0.03 Platelet Estimate Adequate Adequate Red Cell Morph Reviewed: unremarkable Reviewed: unremarkable Polychromasia Slight DTYPE Auto Manual Manual Auto Immature Gran % % 0.5 0.1 IMMATURE GRANS (ABS) <0.10 k/uL 0.03 <0.03 Protein, Total 6.3 - 8.0 g/dL 6.4 5.7 (L) 6.7 7.1 6.8 Albumin 3.9 - 4.9 g/dL 3.8 (L) 3.3 (L) 4.2 4.1 3.9 Calcium 8.5 - 10.2 mg/dL 8.8 8.9 9.8 9.5 9.6 Bilirubin, Total 0.2 - 1.3 mg/dL 0.2 0.5 0.3 0.3 0.4 Alkaline Phosphatase 34 - 123 U/L 118 92 123 126 (H) 116 AST 13 - 35 U/L 35 26 21 28 27 ALT 7 - 38 U/L 36 36 28 27 31 Glucose 74 - 99 mg/dL 167 (H) 89 105 (H) 79 94 BUN 7 - 21 mg/dL 27 (H) 15 27 (H) 24 (H) 26 (H) Creatinine 0.58 - 0.96 mg/dL 0.85 0.84 0.83 0.79 0.87 Sodium 136 - 144 mmol/L 140 139 135 (L) 136 136 Potassium 3.7 - 5.1 mmol/L 4.7 4.3 4.0 4.3 3.8 Chloride 97 - 105 mmol/L 108 (H) 107 (H) 102 103 104 CO2 22 - 30 mmol/L 22 20 (L) 21 (L) 22 25 Anion Gap 9 - 18 mmol/L 10 12 12 11 7 (L) eGFR >=60 mL/min/1.73m 73 74 75 80 71 Hemoglobin A1C 4.3 - 5.6 % 5.3 Estimated Average Glucose mg/dL 105 Magnesium 1.7 - 2.3 mg/dL 2.0 2.0 1.9 1.9 Phosphorus 2.7 - 4.8 mg/dL 3.1 Vitamin B12 232 - 1,245 pg/mL 1,339 (H) TSH 0.270 - 4.200 mIU/L 1.680 Vitamin D 25 Hydroxy 31.0 - 80.0 ng/mL 66.8 Free T3 2.3 - 4.1 pg/mL 2.7 Free T4 0.9 - 1.7 ng/dL 1.6 Assessment and Plan Encounter Diagnosis ICD-10-CM 1. Bilateral tennis elbow M77.11 M77.12 Discussed management. Refer as indicated for PT or ortho evaluation 2. Acquired hypothyroidism E03.9 TSH BLD T4 FREE/FREE THYROX T3 FREE BLD Clinically euthyroid. Continue present management 3. Type 2 diabetes mellitus with microalbuminuria, without long-term current use of insulin ([facility]) ([facility]) E11.29 HGB A1C R80.9 COMP METABOLIC PANEL Continue present management 4. B12 deficiency E53.8 Continue present management 5. Vitamin D deficiency E55.9 VITAMIN D 25 HYDROXY Adjust Vitamin D supplement as indicated 6. AML (acute myeloid leukemia) in remission ([facility]) C92.01 Magnesium Glycinate (MAG GLYCINATE) 100 mg tab Continue follow up with oncologist 7. 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 Ileostomy present ([facility]) Z93.2 Stable on present management Above issues addressed with patient. Patient involved in shared decision making for management of medical issues. History and medications reviewed. Epic updated as needed Refills and/or prescriptions taken care of and meds adjusted as indicated after reviewed history, exam and labs. Health Maintenance reviewed. Updated record and/or ordered tests as recorded. Encouraged on efforts at healthy diet and regular exercise and adequate sleep. Lidia Lopez MD documented in this encounter [facility] 09-05-2023 Miscellaneous Notes PATIENT CALLED IN AND WAS SCHEDULED FOR THE ULTRASOUND. I WENT AHEAD AND SCHEDULED LAB WORK AND 6 MONTH VISIT AND SENT TO PATIENT. Elissa Ray Pss Check out comments: US kidneys when able. OV/CBC/CMP in about 6 months documented in this encounter [facility] 07-16-2023 History of Present illness Narrative CC [facility] NURSE - CHART REVIEW Provider FYI PCC Action Chart review' 08/12/2022 ED Patient with history of acute myeloid leukemia, Emphysema and idiopathic bronchiectasis; presented to [facility] [place] at 3:14 AM with abdominal pain, concern for UTI, cough, wheezing, and shortness of breath discharged to home 08/15/22 ED Non [facility] ED presented with shortness of breath and tachycardia subsequently admitted with diagnosis of Acute exacerbation bronchiectasis and hypoxia with a 3 day Length of stay and transitioned home 08/23/2022 ED/ADM due Bronchospasm and PEPE, unable to view discharge plan Pt identified by name and . Reason for Review: Payor request Patient Attributed To: [employer] Payer: [place] Chart Review For: Utilization: ED Admission All cause readmission Total Patient High CostTotal Patient High Cost {HIGH COST:686377) Quality measure review Payor request for assistance Action Taken: Data submitted to payor Selina Cornell RN July 16, 2023 9:19 AM documented in this encounter [facility] 06-21-2023 Miscellaneous Notes June 21, 2023 PID: [id number] Cong Smith [address] [place] [address] Dear Ms. Smith, We are pleased to inform you that the results of your recent breast imaging exam on 06/18/2023 are normal. Early detection of cancer is very important. We also understand recommendations regarding breast cancer screening are controversial. Please discuss with your primary care provider which strategy is best for you and whether a mammogram is right for you. Your imaging studies and report will be kept on file at [facility] as part of your permanent medical record and are available for your continuing care. Thank you for allowing us to help in meeting your health care needs. Sincerely, Dr. Okeefe Interpreting Radiologist [place] [facility] [place] (Normal over 40) documented in this encounter [facility] 06-18-2023 History of Present illness Narrative Radiology Service Progress Note PATIENT NAME: Cong Smith DATE OF SERVICE: June 18, 2023 TIME: 9:24 AM PATIENT IDENTITY VERIFICATION COMPLETED USING TWO (2) IDENTIFIERS: Name and Date of confirmed by patient verbally. FALL SCREENING: Has the patient had 2 falls in the last year or 1 fall with injury or currently using an Ambulatory Assistive Device (Walker, Cane, Wheelchair, Crutches, etc.)? No PATIENT GENDER DATA: Female. status: : No status: NO. PATIENT RELEVANT IMPLANT DATA REVIEWED: Not Applicable RADIOLOGY DEPARTMENT: Mammography PERIPHERAL IV DATA: Not applicable SIGNED BY: Antonella Rendon [employer] June 18, 2023 9:24 AM documented in this encounter [facility] 06-07-2023 History of Present illness Narrative Patient: Cong Smith PCP: Lidia Lopez MD CC: follow up HPI: Cong Smith 73 year old female non-smoker with PMH significant for AF, VTE on Eliquis and s/p IVC filter, AML s/p allogeneic BMT 2014, GVHD (GI tract, liver, oral mucosa, vaginal mucosa, conjunctivitis), GERD, HTN, ileostomy, DM2, hypothyroidism, bronchiectasis, and chronic thrush. Today, patient reports minimal cough and sputum production. She is using her Acapella occasionally and doing nebulized hypertonic saline once daily. Patient has been using Albuterol via nebulizer every other day secondary to concerns of it being on back order and hard to obtain. Follows with Dr. Butler and had PSG which did not reveal VALDEMAR, but did show a need for supplemental oxygen at night. Currently wearing 1L supplemental oxygen at night. DME: [employer]. PAST MEDICAL HISTORY Diagnosis Date Abnormal echocardiogram 06/03/2017 Abnormality of gait 08/10/2016 Acute pulmonary embolism (HCC) 08/06/2015 --Patient presented with pleuritic Chest Pain, Heparin gtt initiated until PE ruled out --Negative for PE CT with PE protocol. Heparin drip was discontinued. PEPE (acute kidney injury) (HCC) Non-oliguric renal failure. Creat increased to 1.6. Baseline sCr 0.6-1. --change fk to sirolimus. Resolved. 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 Dx 06/28/2014. -S/p induction with 7+3 + eltombopag (CASE 1493) course complicated by E.coli UTI and pulmonary nodule treated with posaconazole. -S/p 3 cycles of HiDAC, all courses complicated by neutropenic fevers and concern for worsening fungal pneumonia although this was not supported by cultures and bronchoscopy. 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 Treated w ganciclovir. 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 Lab draws: 11/28, 12/05, 12/12, 12/13, 12/26, 01/09, 01/23, 02/2710 Grade GVHD: every Wednesday starting 12/05, and prior to discharge. Pseudophakia of both eyes RBBB (right bundle branch block) 10/01/2015 RUQ abdominal pain S/P bone marrow transplant ([facility]) 08/27/2015 AML. Per LDT [facility]ci charges 08/22/15 S/P partial colectomy 06/20/2015 --06/20/2015- ex lap, subtotal colectomy, and end ileostomy SBO (small bowel obstruction) ([facility]) 01/25/2017 Secondary adrenal insufficiency ([facility]) 09/07/2016 Squamous cell carcinoma Left cheek Syncope Thrush 06/20/2022 Type 2 diabetes mellitus with microalbuminuria, without long-term current use of insulin ([facility]) 07/02/2016 Unspecified hypothyroidism Allergies: Fish Containing Pro* Unknown Forteo [Teriparatid* Other: See Comments Comment:Hypercalcemia 08/2018 Gadolinium-Containi* Hives Iodinated Contrast * Hives Iodine [Contrast Dy* Hives Comment:Hives, sneezing Omnipaque [Iohexol] Hives Comment:Sneezing, pruritis (ears), and hive. metoprolol tartrate, short acting, (LOPRESSOR) 25 mg tablet^Take 1 tablet by mouth twice daily.^Disp: 180 tablet^Rfl: 3 Cholecalciferol, Vitamin D3, 50 mcg (2,000 unit) cap^Take 1 capsule by mouth once daily.^Disp: 90 capsule^Rfl: 3 esomeprazole (NEXIUM) 40 mg capsule^Take 1 capsule by mouth once daily.^Disp: 90 capsule^Rfl: 3 cholestyramine (QUESTRAN) 4 gram packet^Take 1 Packet by mouth three times daily with meals.^Disp: 90 Packet^Rfl: 5 amoxicillin (AMOXIL) 500 mg capsule^take 4 capsules by mouth 1 hour prior to dental appointment^Disp: ^Rfl: erythromycin (ROMYCIN) 5 mg/gram (0.5 %) ophthalmic ointment^Use 1 application in both eyes twice daily.^Disp: 10.5 g^Rfl: 3 lifitegrast (XIIDRA) 5 % ophthalmic drops^Use 1 Drop in both eyes twice daily.^Disp: 180 Each^Rfl: 3 levothyroxine (SYNTHROID) 112 mcg tablet^Take 1 tablet by mouth once daily. Take on empty stomach. For Thyroid^Disp: 90 tablet^Rfl: 3 fluorometholone (FML LIQUID FILM) 0.1 % ophthalmic suspension^Use 1 Drop in the left eye twice daily.^Disp: 5 mL^Rfl: 1 (Patient taking differently: Use 1 Drop in the left eye twice daily. Using sparingly PRN) apixaban (ELIQUIS) 5 mg tab(s)^Take 1 tablet by mouth twice daily.^Disp: 180 tablet^Rfl: 3 albuterol (PROVENTIL) 2.5 mg /3 mL (0.083 %) nebulizer solution^Use 3 mL via nebulizer three times daily as needed for wheezing/shortness of breath. Inhale over 5-15 minutes^Disp: 900 mL^Rfl: 3 mometasone (NASONEX) 50 mcg/actuation nasal spray^Use 2 Sprays in the nose once daily. Rinse mouth after use.^Disp: 17 g^Rfl: 3 lidocaine (XYLOCAINE) 5 % ointment^Apply to affected area as needed (to urethral area). use a small amount to affected area qid prn pain^Disp: 30 g^Rfl: 1 cyanocobalamin/cobamamide (B12 SUBLINGUAL)^Dissolve under the tongue.^Disp: ^Rfl: Magnesium Glycinate (MAG GLYCINATE) 100 mg tab^Take 1 tablet by mouth twice daily.^Disp: 60 tablet^Rfl: 5 (Patient taking differently: Take 100 mg by mouth twice daily. Took yesterday morning) sodium chloride (NEBUSAL) 3 % nebulizer solution^Use 4 mL via nebulizer twice daily.^Disp: 1200 mL^Rfl: 3 estradiol (ESTRACE) 0.01 % (0.1 mg/gram) vaginal cream^Use 0.5 g vaginally two times a week.^Disp: 42.5 g^Rfl: 3 albuterol HFA (PROAIR HFA) 90 mcg/actuation inhaler^Inhale 2 Puffs as instructed every 4 hours as needed for wheezing/shortness of breath.^Disp: 18 g^Rfl: 11 Nebulizer and Compressor For Neb^1 Each twice daily.^Disp: 1 Each^Rfl: 1 Flaxseed Oil 1,000 mg cap^Take 1,000 mg by mouth once daily.^Disp: ^Rfl: 0.9 % sodium chloride (0.9% NACL)^NURSING USE ONLY: USED FOR IMPLANTED VASCULAR ACCESS DEVICE (IVAD) ACCESS. AMBULATORY/OUTPATIENT: PLEASE REORDER UPON HOSPITAL DISCHARGE May access implanted vascular access device (IVAD) as needed for treatment. Flush IVAD with 10-20 mL NS every 4 weeks and PRN when IVAD not in use.^Disp: 1 Syringe^Rfl: 100 sodium chloride (PRATIMA 128) 5 % ophthalmic solution^Use 1 Drop in both eyes as needed. ^Disp: ^Rfl: MULTIVITAMIN ORAL^Take 1 tablet by mouth once daily.^Disp: ^Rfl: ipratropium bromide (ATROVENT) 42 mcg (0.06 %) nasal spray^Use 2 Sprays in the nose twice daily as needed.^Disp: 1 Bottle^Rfl: 5 Lactobacillus acidophilus (PROBIOTIC ORAL)^Take 1 capsule by mouth once daily.^Disp: ^Rfl: Social History Tobacco Use Smoking status: Never Smokeless tobacco: Never Vaping Use Vaping Use: Never used Substance Use Topics Alcohol use: Not Currently Comment: Quit 2013, previously 1-2 drinks per year Drug use: Never Family History Problem Relation Age of Onset Cataract Father other (Cancer, liver) Father Liver cancer at 84 Diabetes Mother Osteoporosis Mother Cataract Mother other (chf) Mother other (dementia) Mother vascular Cataract Brother Thyroid Brother antibodies in thyroid Cataract Brother Thyroid Brother other (MTHFR) Brother and his children are positive as well No Ocular Disease Maternal Grandmother other (encelphalitis) Maternal Grandmother Heart Maternal Grandfather mi in his 70 No Ocular Disease Maternal Grandfather Alzheimer's Disease Paternal Grandmother No Ocular Disease Paternal Grandmother No Ocular Disease Paternal Grandfather PAST SURGICAL HISTORY Procedure Laterality Date ANOSCOPY DX W/COLLJ SPEC BR/WA SPX WHEN PRFRMD 02/22/2020 ARTHRP ACETBLR/PROX FEM PROSTC AGRFT/ALGRFT Left 01/2019 BONE MARROW TRANSPLANT, ALLOGENEIC 11/28/2014 CATARACT EXTRACTION HX Right 08/2016 DELIVERY ONLY x2 , low cervical COLECTOMY TOTAL W/ILEOANAL ANASTMS 06/20/2015 Ileostomy due to resection for bowel perforation ESOPHAGOGASTRODUODENOSCOPY TRANSORAL DIAGNOSTIC 09/06/2018 EGD IR IVC FILTER PLACEMENT 11/21/2015 Celect [place] LAPS SURG CHOLECYSTECTOMY W/CHOLANGIOGRAPHY 11/05/09 PICC LINE INSERT/CONSULT 06/28/2014 PICC LINE INSERT/CONSULT 03/12/2015 REMOVE TONSILS AND ADENOIDS; AGE 12 OVER I reviewed the past medical history, family history, social history and surgical history with changes noted above and updated in EMR. IMMUNIZATIONS Prevnar - 04/29/2016 Pneumovax - 09/27/2017 Influenza - 2021 COVID-19 - most recent 08/2022 ROS: CONSTITUTIONAL: No fevers, chills, nightsweats, unintended weight loss HEENT: Denies nasal congestion/sinus symptoms, allergy problems. EYES: No diplopia or blurry vision, eye pain or irritation CARDIOVASCULAR: No chest pain, dyspnea, palpitations, orthopnea, PND, edema. PULM: See HPI GI: No dysphagia/odynophagia, problematic reflux : No new urinary complaints, including dysuria, gross hematuria or pyuria. INTEGUMENTARY: No new skin changes or rashes PHYSICAL EXAMINATION: BP 104/60 Pulse 73 Resp 15 Wt 70.8 kg (156 lb) SpO2 96% BMI 32.60 kg/m Gen: No acute distress. Cooperative with examination. HEENT: Normocephalic. Sclera, conjunctiva clear. Oral hygeine and dentition good. No thrush. Resp: No stridor, accessory respiratory muscle use, supra-sternal or intercostal retractions. No wheezes, crackles. CV: Regular rythm. Heart tones normal. Radial pulses normal. Abd: Non distended. MSK: No kyphoscoliosis. Ext: Warm and well perfused. No clubbing, cyanosis, edema. Skin: No rash, ecchymoses. Neuro: Mental status normal. Affect normal. No tremor. ASSESSMENT/PLAN: 1. Bronchiectasis without complication (HCC) - ICD9: 494.0, ICD10: J47.9 Demonstrated how patient could attach her Acapella device to nebulizer to assist with mucus clearance. Suppressive antibiotics not indicated at this time. Provided script for Augmentin while in [place]. Portions of this documentation were copied and pasted from previous office visit notes in order to provide a cohesive continuity of the history. The note has been reviewed and edited and updated as necessary. Rosalia Peters PA-C documented in this encounter [facility] 06-01-2023 History of Present illness Narrative Images from the original note were not included. [facility] Bone Marrow Transplant and Cellular Therapy (Elements copied from Calin Larios's and Clare Baez's notes dated 06/20/22 and 03/03/23, respectively, and have been reviewed and updated where appropriate, and all reflect current assessment and medical decision making during today's encounter, June 01, 2023) Transplant Summary: Date of transplant: 11/28/14 Protocol(s):3131, 1202 Preparative regimen: bu/flu Donor: NMDP HLA: complete 04/27 match Stem cell source: peripheral Total nucleated cell dose (x10e8/kg): 18.03 CD34 cell dose (x10e6/kg): 5.77 GVHD prophlaxis: tacrolimus -> sirolimus Donor / Recipient ABO: O+/A+ Minor ABO Incompatibility present? Yes Donor / Recipient CMV: +/+ Previous history: She was diagnosed with FLT3 ITD+/NPM1+ AML after presenting with chest pain. She received 7+3 and eltrombopag (CASE 1493) for induction. Her induction course was complicated by chest pain of unclear etiology and a skin rash likely due to cytarabine or zosyn. She had a UTI (E. coli) as well as noted pulmonary nodules on CT scan chest 07/13/2014. She was treated with posaconazole on 07/18/2014 since lesions appeared while on voriconazole. Discharged from [facility] 11/03/2014 following cycle #3 HiDAC. 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 Did very well for first 100 days and was tolerating steroid taper. Several days after going home, developed nausea/vomiting. Culminated in total colectomy. Per discharge summary 08/20/2015: Ms. Smith is a 65 year old female who presents from [facility] with positive V/Q scan c/w intermediate risk of pulmonary embolism. 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 She presented to [facility] 08/06 with chest pain. Her pain is described as left and right sided with left sided shoulder pain. Some dyspnea that she attributes to pain not difficulty getting breath in. She denies radiation to her jaw or back, no diaphoresis, no heaviness. She has an allergy to iodine and omnipaque so it was not possible to do a CTPE for she had a V/Q scan which showed intermediate probability for PE. While at [facility] Dr. Welch from oncology saw the patient and had no further recs. Pulmonary saw the patient as well and had no further recs. Cardiology evaluated the patient and felt that her troponin elevation is most likely secondary to her PE which was of high suspicion given immobility and malignancy. He suggested aspirin, continue beta neda, hold statin, noted chronic RBBB. Troponins were 0.098 and 0.121. On admission here she is HDS, conversant, some residual left shoulder pain but improved overall, no fevers, chills, night sweats and limited SOB. No diarrhea, dysuria, cough, headaches. Last two hospitalizations: 06/04-06/19 Developed E. Coli bacteriemia and was treated with a full course of meropenem. She resides at [place] currently. 06/19-07/10 Recently admitted where she developed pneumatosis coli and was taken to surgery where she got a subtotal colectomy with end ileostomy. Had a full course of CMV treatment with ganciclovir, followed by ID. Hospital Course: Mrs Smith was admitted to the MICU and placed on a heparin drip for suspected pulmonary embolism. CT scan with PE protocol was negative for pulmonary embolism and the heparin drip was stopped. Once stabilized she was transferred to the BMT unit. [place] U/A and urine culture showed a UTI d/t a multi resistant E.Coli which was treatet with a week course of IV cetriaxone. Her hospital course was further complicated by atrial fibrillation with rapid ventricular response. This required transfer to cardiology ICU for continuous infusion amiodarone for hrt rate control. Her Coreg and norvasc was stopped due to low blood pressure. She was transitioned to oral Amiodarone, and her multiple medications were adjusted for interactions i.e ppx cipro and posa were dc'd. PT/OT recommended SNF upon discharge, final placement arrangements were made and she was transferred to [facility] Underwent ileoscopy on 08/17/2018 for potential GI bleed/GVHD. At approximately 28 cm proximal to the stoma one semi-pedunculated nonbleeding polyp was identified. It was 4 mm in diameter. Biopsies were obtained. Otherwise the examined portion of the ileum was normal. Pathology: 1. Ileum, biopsy (A) - Small intestinal mucosa with architectural distortion and occasional apoptotic bodies. See comment. 2. Ileum polyp, biopsy (B) - Small intestinal mucosa with architectural distortion and pyloric gland metaplasia, see comment. COMMENT The patient's history of drdel-zayvqx-dwjl disease (GVHD) is noted. In the current specimen, only occasional apoptotic bodies are present, and do not meet our threshold for a diagnosis of GVHD (greater than 1 apoptotic body per piece of tissue). However, given their presence, some component of GVHD activity cannot be entirely ruled out. Both biopsies show evidence of chronic mucosal injury, possibly from prior GVHD. Chronic infection, chronic ischemia and chronic drug/medication injury could also produce these histologic features. An immunostain for CMV will be obtained and the results will be reported as an addendum. EGD on 08/31/2018. She was observed to have localized, moderate inflammation characterized by erosions, erythema and friability as well as serpentine ulcerations in the gastric antrum. Biopsies were obtained. The examined duodenum was normal. The lower third and middle third of the esophagus were both normal. Patient was advised to use sucralfate in addition to her proton pump inhibitor. Pathology: 1. Duodenum, biopsy (A) - Duodenal mucosa with minimal crypt apoptosis. 2. Antrum, biopsy (B) - Antral mucosa with chronic active inflammation and features of erosion. - See comment. 3. Esophagogastric junction, biopsy (C) - Reactive squamous mucosa and inflamed cardiac mucosa. - No evidence of intestinal metaplasia or dysplasia. 4. Mid esophagus, biopsy (D) - Mildly reactive squamous mucosa with rare intraepithelial eosinophils (up to 2 eosinophils in a single high power field). COMMENT The level of apoptotic activity seen the duodenum biopsy (part A) is insufficient to warrant a diagnosis of GVHD. H. pylori and CMV immunostains performed on the antrum biopsy (part B) to evaluate the chronic active inflammation are both negative. Underwent left hip replacement in January 2019. In April 2022 the patient had been evaluated by gynecology for vaginal and vulvar pain. She had continued on clobetasol Monistat without any relief. She was subsequently evaluated by her primary care physician and was having increasing lower extremity pain. She was directed to the [facility] ED and reportedly a CT scan demonstrated no etiology for the pain. Since this had further worsened she presented to [facility] on 05/18. A duplex ultrasound of her right lower extremity showed an acute DVT in the right distal external iliac vein, right common femoral vein, right deep femoral vein and right posterior tibial vein as well as in the right greater saphenous vein. She was started on Eliquis after initially receiving heparin. 04/11 small bowel obstruction resolved with conservative management Today: The patient comes accompanied by her for her yearly follow-up. The patient reports that in the last several months she has been working on her strength after getting very debilitated with chronic GVHD and steroid therapy. She is currently off all immunosuppression, including steroids. Over the last several months she went from being able to do just a few steps to go 1 about a mile and a half around a walking path near her home. She also has been working on steps but has not done that lately. She made slow progress with got very hard when she increase the size of the step from 4 to 6 inches, and she is stopped doing that type of exercise. She has no signs and symptoms of relapse GVHD at this time. She continues to have some occasional dry eyes but no mouth sores or dry mouth. Her skin is thin but not sclerotic. Her colostomy is working well but she has diarrhea from the colostomy. He has tried many different solutions and snacking seems to be the best 1. Unfortunately that causes elevated glucose and weight gain. She has been given cholestyramine but has not been using it. No nausea or vomiting. No new skin rashes. Leg edema is intermittent. On her remaining complete review of systems is significant for type 2 diabetes, deep venous thrombosis on anticoagulation, hypothyroidism, abnormal liver test. Otherwise, her remaining complete review of system is negative. Physical exam: BP 116/82 Pulse 65 Temp 36.2 C (97.1 F) (Temporal) Resp 18 SpO2 95% The patient is alert oriented and in nonacute distress There were no palpable lymph nodes on the neck and supraclavicular area Lungs bilateral basilar coarse sounds consistent with bronchiectasis that the patient is known to have. There was no wheezing, crackles, or coarse sounds in the 2 upper thirds of her lungs. Heart had regular rhythm and rate, no gallop, no rub, no murmur Abdomen was soft and nontender. Bowel sounds were normal, not increased. Ileostomy in the right lower quadrant was intact and functioning. Extremities with no edema good perfusion, pulses were hard to feel and there was Grossly neurologically intact cranial nerves. Decreased strength symmetrically. Deep tendon reflexes not tested. No skin rashes Laboratory CBC Latest Ref Rng & Units 03/26/2023 03/31/2023 06/01/2023 WBC 3.70 - 11.00 k/uL 12.09(H) 9.65 9.73 RBC 3.90 - 5.20 m/uL 3.64(L) 4.38 4.53 HEMOGLOBIN 11.5 - 15.5 g/dL 11.9 14.5 15.2 HEMOGLOBIN TOTAL, WHOLE BLOOD 11.5 - 15.5 g/dL - - - HEMOGLOBIN, LUIS FERNANDO 11.5 - 15.5 g/dL - - - HEMATOCRIT 36.0 - 46.0 % 35.8(L) 43.0 43.3 HEMATOCRIT, POC 36 - 46 % - - - MCV 80.0 - 100.0 fL 98.4 98.2 95.6 MCV, LUIS FERNANDO 80.0 - 100.0 fL - - - MCH 26.0 - 34.0 pg 32.7 33.1 33.6 MCH, LUIS FERNANDO 26.0 - 34.0 pg - - - MCHC 30.5 - 36.0 g/dL 33.2 33.7 35.1 MCHC, LUIS FERNANDO 30.5 - 36.0 g/dL - - - RDW, LUIS FERNANDO 11.5 - 15.0 % - - - RDW-CV 11.5 - 15.0 % 14.3 14.5 13.7 PLATELETS 150 - 400 k/uL 213 219 239 MPV 9.0 - 12.7 fL 10.2 9.8 11.0 MPV, LUIS FERNANDO 9.0 - 12.7 fL - - - NEUT%, LUIS FERNANDO % - - - MONO%, LUIS FERNANDO % - - - EOS%, LUIS FERNANDO % - - - BASO% % - 0.0 0.0 BASO%, LUIS FERNANDO % - - - ABS NEUT (ANC) 1.45 - 7.50 k/uL - 3.09 2.63 ABS NEUT, LUIS FERNANDO 1.45 - 7.50 k/uL - - - ABS LYM 1.00 - 4.00 K/uL - - - ABS LYMP, LUIS FERNANDO 1.00 - 4.00 k/uL - - - ABS LYMPH 1.00 - 4.00 k/uL - 5.11(H) 6.03(H) ABS MONO <0.87 k/uL - 0.97(H) 0.97(H) ABS MONO, LUIS FERNANDO <0.87 k/uL - - - ABS EOS, LUIS FERNANDO <0.46 k/uL - - - ABS EOSIN <0.46 k/uL - 0.48(H) 0.10 ABS BASO <0.11 k/uL - 0.00 0.00 ABS BASO, LUIS FERNANDO <0.11 k/uL - - - NRBC /100 WBC - 0.0 0.0 META% % - - - MYELO% % - - - ANISOCYTOSIS - - - - LEFT SHIFT - - - - OVALOCYTES - - - - POLYCHROMASIA - - - Slight RBC FRAGMENTS - - - - TARGET CELLS - - - - PLATELET ESTIMATE - - Adequate Adequate DIFF TYPE - - - - CMP Latest Ref Rng & Units 03/26/2023 03/31/2023 06/01/2023 SODIUM 136 - 144 mmol/L 139 135(L) 136 SODIUM, POC 132 - 148 mmol/L - - - SODIUM, LUIS FERNANDO 132 - 148 mmol/L - - - SODIUM, LUIS FERNANDO 132 - 148 mmol/L - - - POTASSIUM 3.7 - 5.1 mmol/L 4.3 4.0 4.3 POTASSIUM, POC 3.5 - 5.0 mmol/L - - - POTASSIUM, LUIS FERNANDO 3.5 - 5.0 mmol/L - - - CHLORIDE 97 - 105 mmol/L 107(H) 102 103 CHLORIDE, LUIS FERNANDO 98 - 110 mmol/L - - - CO2 22 - 30 mmol/L 20(L) 21(L) 22 CO2, LUIS FERNANDO 23.0 - 32.0 mmol/L - - - GLUCOSE 74 - 99 mg/dL 89 105(H) 79 GLUCOSE (U), LUIS FERNANDO NEGAT mg/dL - - - GLUCOSE, POC 60 - 105 mg/dL Fasting - - - GLUCOSE, LUIS FERNANDO 65 - 100 mg/dL - - - BUN 7 - 21 mg/dL 15 27(H) 24(H) BUN, LUIS FERNANDO 10 - 25 mg/dL - - - CREATININE 0.58 - 0.96 mg/dL 0.84 0.83 0.79 CREATININE, LUIS FERNANDO 0.7 - 1.4 mg/dL - - - EGFR >=60 mL/min/1.73m 74 75 80 EGFR-ALL OTHER RACES . 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 No No No Is there persistence of chronic GVHD since the last entry? No Unknown Unknown Comment - Prior dry eyes controlled with current therapy per ophthalmology - Biopsy Performed? No No No Skin staging? - - - Mouth staging? - - - Eyes staging? - - - GI tract staging? - - - Liver staging? - - - Lung staging? - - - Joint and fascia staging? - - - Other Organ Involvement Or Features? - - - Keratoconjunctivitis sicca (KCS) confirmed by opthamologist? - - - Is the above attributable ENTIRELY to a non-GVHD cause? - - - Was a formal genital tract exam performed? - - - Genital tract score (female) - - - Chronic GVHD Global Severity Score - - - Total Chronic GVHD Score - - - Subjective Clinician Opinion Of Severity - - - Assessment and plan: 1. Bone marrow transplant: 8 yrs and 6 months post HCT. 2. 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 -Her WBC, ANC, hemoglobin and platelet count are normal and she continues to be in a complete remission -Follow blood counts and continue supportive care measures. 3. Igkdt-ekkiiv-qwoe disease: - History of oral, ocular, liver, vaginal, and GI GVHD - has persistent stable ocular symptoms (most likely burnt out GVHD) -Continue local therapy per ophthalmology recommendations -No signs of a GVHD flare 4. Hematology: Very stable blood counts with slight lymphocytosis and borderline elevated monocytes. Given her mild lymphocytosis she previously had flow cytometric analysis of the peripheral blood that was negative for a lymphoproliferative disorder or clonal T-cell expansion. In addition her EBV and CMV DNA detection test results were negative H/o Provoked DVT in 2016 - Continues on Eliquis, also s/p IVC filter placement at that time. - Also, has ?? History of A-fib, which is another indication for anticoagulation. - Will c/w Eliquis - managed by Dr Baez Right lower extremity DVT - Continue Eliquis 5. Infectious disease: Thrush - Start Mycelex troches Immunosuppression - Continue prophylaxis acyclovir 6. Nutrition and electrolytes: We had a discussion about her nutrition and encouraged her to work with a dietitian. She did not feel that this was helpful in the past. I encouraged her to use the recommended oatmeal that will help develop bulking the stool and reduce the diarrhea. She also needs to better select her snacks in order to avoid weight gain and decompensating her diabetes. 7. Renal: Stable normal creatinine 8. GI/Liver: Gastroesophageal reflux disease without esophagitis. She complains about loose stools and we talked about techniques to reduce the diarrhea from the ileostomy. I explained the biology of the diarrhea and the reduction in fluid absorption with the resection of her colon. I encouraged the patient to restart the cholestyramine and use it as directed. In the past she thinks it overcompensated and cause constipation. I recommended that she starts at a lower frequency a day and dose escalate until she finds the right dose for herself. - Continue Nexium 9. Psych/mood: The patient is somewhat anxious, but otherwise very appropriate and engaging. 10. Dermatology: Prior basal cell skin carcinoma (nose and left cheek) status post Mohs procedure - She needs continued follow-up with a television cameraman. 11. Musculoskeletal: Osteoporosis -Previously stopped Forteo and calcium/vitamin D due to hypercalcemia in the past - Continue follow-up with Dr Lopez. Left total hip arthroplasty for avascular necrosis -No complaints currently; may follow-up in orthopedics as clinically indicated 12. Essential hypertension -Follow blood pressure under the care of her local provider Summary Plan: The patient will return to follow-up with Dr. Julien in approximately 12 months. Continue to follow every [address] Fitzgerald Call and come sooner if necessary. I spent a total of 60 minutes on the date of the service which included preparing to see the patient, [id number] patient care, completing clinical documentation, obtaining and/or reviewing separately obtained history, performing a medically appropriate examination, counseling and educating the patient/family/caregiver, ordering medications, tests, or procedures, and communicating results to the patient/family/caregiver. Sanjeev Ledesma MD Cc: Clare Baez DO (Hematology/Oncology) documented in this encounter [facility] 06-01-2023 History of Present illness Narrative Pt checked into lab with no orders. Dr. Ledesma paged x2 and secure chat sent. No response. Pt decided to go up for office visit and will speak with physician about ordering labs. documented in this encounter [facility] 05-27-2023 Miscellaneous Notes Left detailed message for patient- provider will be out of office in the afternoon on 06/07. Could move appt to noon (or 8:30 if time slot is still available when she returns call). Nevaeh Virgen LPN Patient called stating that she had a voicemail from Rosalia CASILLAS asking her to return the call. Ok to leave detailed message if she does not answer. Tatyana Fuentes RN documented in this encounter [facility] 03-29-2023 History of Present illness Narrative TCM Home Visit Referral Source of Stratification: [facility] Hospital Admission Status: Discharged Readmission Risk Score: 11 QUINCY Score: 11 Patient meets program referral criteria: No TRANSITIONAL CARE MANAGEMENT (TCM) COMMUNITY MONITORING PROGRAM Provider Action/FYI: Called and spoke with patient. She states she is doing well at home, remaining on GI soft diet. Good Stoma output. Intermittent stomach pain - had during admission as well. Patient did have a question- Wondering if the stricture blockage she was diagnosed with was REALLY from past surgery scar tissue or if it is from having a short bowel. Unfortunately, I could not answer this question for her but told her I would pass the message along to her care team. Patient has not seen GI or [facility] I offered to schedule PCP appt , patient declines as she mostly sees specialists at this point. Next appt: Hematology/Oncology 05/31/2023 Dr Julien SUMMARY: Discharge Network Status: In-Network Discharge Pt discharged from [facility] on 03/26/2023. Admitted for: SBO Contact made with patient: Yes Hi my name is Mary Yanez RN and I am calling from the [facility] on behalf of your PCP, Lidia Lopez MD I understand you were recently in the hospital so I am calling to check in with you to ensure you are feeling well now that you're home. May I ask you a few questions related to your hospital stay and well-being? Yes Contact with patient post discharge, spoke to patient. Patient identified by name and . Do you feel your health is BETTER, WORSE, or the SAME since leaving the hospital? Better ACTION TAKEN: Patient indicated symptoms are better or same, no action required. Continue outreach. MEDICATIONS: Many patients have questions or concerns about their medications once they are home. Do you have any questions about taking your medications or which medication you should be on? No Do you need any medication refills at this time, including any of the medications you might take only when needed? No ACTION TAKEN: No action required For RNs or Pharmacy completing outreach ONLY, was a medication review completed? Yes SOCIAL: We would like to make sure you have what you need so that your basics needs are met - including your personal safety, food, housing and medications. Would you like to speak with a social work steam and power superintendent to help give you support for any of these needs? No It can be normal to feel anxious or down during a time like this. Would you like to talk to a mental health professional about how you have been feeling? No ACTION TAKEN: No action taken DISCHARGE INTRUCTIONS: Your discharge instructions / After Visit Summary (AVS) are important in guiding you through the recovery process. Do you have any questions related to your discharge instructions? No Do you have all the necessary equipment and supplies at home? Yes ACTION TAKEN: No action required I would like to help you schedule a hospital follow-up virtual or telephone visit with your PCP. This is a great way for you to connect with your provider to ensure you have safely transitioned home. If you are agreeable, I will send your request to a makeup editor who will contact and assist you with that appointment. This will give you an opportunity to ask any questions or address any concerns you may have with your PCP. Inform the patient that if they have any questions or concerns prior to that appointment, to call their PCP's office right away. ACTION TAKEN: No action required, patient declines appointment. Your doctor would like us to remind you of the recommendations regarding the coronavirus (Covid19) outbreak: Avoid public places as much as possible. Avoid close contact (within 6 feet) with others you don t live with, especially if they are sick. Stay home if you are sick. Wash your hands regularly for at least 20 seconds with soap and water. Wear a cloth mask in public places to help reduce community spread. Do not go to your Doctor s office unless instructed to do so. For any non-emergency symptoms, call your Doctor s office to get instructions on how to manage (we might recommend a telephone or virtual visit). For emergency symptoms, proceed to Emergency Department as usual but inform them of cough and fever symptoms ANASTASIA if present (or call on the way if possible). [employer] Ordered -: No documented in this encounter [facility] 03-26-2023 Miscellaneous Notes Addended by: TATYANA FUENTES on: 03/26/2023 02:47 PM Modules accepted: Orders Patient phones requesting refills as follows: Requested Prescriptions Pending Prescriptions Disp Refills metoprolol tartrate, short acting, (LOPRESSOR) 25 mg tablet 180 tablet 3 Sig: Take 1 tablet by mouth twice daily. Please review and advise. Tatyana Fuentes RN documented in this encounter [facility] 03-25-2023 History of Past i llness Narrative Problem Noted Date Resolved Date Small bowel obstruction 03/25/2023 03/26/20 23 Shortness of breath 10/14/2020 06/19/2022 Parastomal hernia 05/29/2020 06/04/2020 Last Assessment & Plan: Assessment: s/p 05/29 parastomal hernia repair with TAR PLAN: -continue postoperative care Colostomy status 09/18/2018 06/03/2022 PEPE (acute kidney injury) 09/12/20182021 Overview: Last Assessment & Plan: SCr normalized to 1.02 today, SCr 3.2 on admission at OSH. Baseline 0.8-1.0. Likely 2/2 dehydration from vomiting and hyperCa. Continue MIVF as discussed elsewhere. Last Assessment & Plan: SCr normalized to 1.02 today, SCr 3.2 on admission at OSH. Baseline 0.8-1.0. Likely 2/2 dehydration from vomiting and hyperCa. Continue MIVF as discussed elsewhere. Stage 3 chronic kidney disease 05/13/2018 0 06/03/2022 Dehydration 05/13/2018 06/03/2022 Itching 01/11/2018 02/18/2018 Insomnia 01/11/2018 09/18/2018 Abnormal echocardiogram 06/03/2017 09/02/20 17 SBO (small bowel obstruction) 01/25/2017 Abdominal pain 01/25/2017 01/25/2017 Overview: --01/24 Outside ER admit for 10/10 abd pain, decreased Colostomy output. CT 01/24/17 with new hernia in RLQ. --01/25 Pt states no abd pain/craming and pain 0/10, +stool output and tolerating liquids and solids. Plan for General Surg f/u outpatient for h/o SBO. 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 may need to increase FK and/or start low dose steroids Bronchopneumonia due to human metapneumovirus (h MPV) 01/14/2017 01/29/2017 Overview: -- presented as fever, cough, sinus NULL. -- RVP was (+) for Human metapneumovirus --CXR ? basilar atalectasis v pneumonia; --CT sinus acute sinusitis - u/a C&S neg - had persistent fevers and received 2 days of zosyn (01/16-01/17); -- zosyn was dc'd with all cultures being neg and she remained afebrile -- developed hypoxia with a positive desat study -- DC'd Home with O2 f/u 01/20/[address] Tatyana THORNTONBB (right bundle branch block) 09/24/2016 05/18/2018 Abnormality of gait 09/11/2016 01/21/2017 Secondary adrenal insufficiency 09/07/2016 04/27/2018 Type 2 diabetes mellitus wit h microalbuminuria, without long-term current use of insulin 07/02/2016 02/10/2022 Physical deconditioning 10/01/2015 09/07/20 16 Overview: Per LDT 10/30/15 fci charges Diarrhea 09/11/2015 01/21/2017 Overview: --increased watery stool output through ostomy; 01/16: c-diff neg --start imodium BID Acute pulmonary embolism 08/06/2015 016 Overview: --Patient presented with pleuritic Chest Pain, Heparin gtt initiated until PE ruled out --Negative for PE CT with PE protocol. Heparin drip was discontinued. 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 --c/o blood in urine & dysuria. 2+ Hb on UA. Check BK urine. Empiric cipro started --07/08- symptoms improving --07/09: +BK (162,000) copies: continue cipro for tx. 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 Treated w ganciclovir. Plan: - continue acyclovir - monitor tac levels Dysmetabolic syndrome X 09/07/20 16 Obesity 09/08/2017 Overview: Obesity class III Body mass index is 32.09 kg/(m^2). 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 Treated with vori, then changed to posa d/t presumed resistance. Repeat CT chest 10/12/14 improved. 12/14/14 CT clear --ppx posa PFO (patent foramen ovale) 11/06 Obstructive lung disease (generalized) 02/04/2016 Overview: --monitor. No h/o smoking. Not currently on any treatment at this time. Reduced FEV1 and DLCO. recent Pneumothorax on right Overview: --right sided chest pain that radiates to the scapula. Worse with deep breath. Scapula tender to palpation. -- CXR showedsmall right apical pneumothorax. EKG unremarkable. Cardiac enzymes negative. --Right apical pneumothorax most likely cause of her chest pain. No respiratory distress. On room air. --11/30 CXR shows pneumo no longer visible. 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 food related vs GVHD; pt cutting back on snacking today; on GVHD diet (GI soft/fiber controlled). --stool [id number] 07/05 (down from 2500ml 07/04). Some blood in stool overnight 07/05; platelets transfused. No blood noted afterward. --increased stool 1725ml 07/06. No colonoscopy; continue to hold off on ECP; 07/09-stool output decreasing; monitor documented as of this encounter (statuses as of 03/26/2023) [facility]07-06-[facility]23 History of Past illness Narrative* Problem Noted Date Resolved Date Small bowel obstruction 03/25/2023 03/26/20 23 Shortness of breath 10/14/2020 06/19/2022 Parastomal hernia 05/29/2020 06/04/2020 Last Assessment & Plan: Assessment: s/p 05/29 parastomal hernia repair with TAR PLAN: -continue postoperative care Colostomy status 09/18/2018 06/03/2022 PEPE (acute kidney injury) 09/12/20182021 Overview: Last Assessment & Plan: SCr normalized to 1.02 today, SCr 3.2 on admission at OSH. Baseline 0.8-1.0. Likely 2/2 dehydration from vomiting and hyperCa. Continue MIVF as discussed elsewhere. Last Assessment & Plan: SCr normalized to 1.02 today, SCr 3.2 on admission at OSH. Baseline 0.8-1.0. Likely 2/2 dehydration from vomiting and hyperCa. Continue MIVF as discussed elsewhere. Stage 3 chronic kidney disease 05/13/2018 0 06/03/2022 Dehydration 05/13/2018 06/03/2022 Itching 01/11/2018 02/18/2018 Insomnia 01/11/2018 09/18/2018 Abnormal echocardiogram 06/03/2017 09/02/20 17 SBO (small bowel obstruction) 01/25/2017 Abdominal pain 01/25/2017 01/25/2017 Overview: --01/24 Outside ER admit for 1010 abd pain, decreased Colostomy output. CT 01/24/17 with new hernia in RLQ. --5/8 Pt states no abd pain/craming and pain 0/10, +stool output and tolerating liquids and solids. Plan for General Surg f/u outpatient for h/o SBO. 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 may need to increase FK and/or start low dose steroids Bronchopneumonia due to human metapneumovirus (h MPV) 01/14/2017 01/29/2017 Overview: -- presented as fever, cough, sinus NULL. -- RVP was (+) for Human metapneumovirus --CXR ? basilar atalectasis v pneumonia; --CT sinus acute sinusitis - u/a C&S neg - had persistent fevers and received 2 days of zosyn (01/16-01/17); -- zosyn was dc'd with all cultures being neg and she remained afebrile -- developed hypoxia with a positive desat study -- DC'd Home with O2 f/u 01/20/[address] Tatyana KIM (right bundle branch block) 09/24/2016 05/18/2018 Abnormality of gait 09/11/2016 01/21/2017 Secondary adrenal insufficiency 09/07/2016 04/27/2018 Type 2 diabetes mellitus wit h microalbuminuria, without long-term current use of insulin 07/02/2016 02/10/2022 Physical deconditioning 10/01/2015 09/07/20 16 Overview: Per LDT 10/30/15 fci charges Diarrhea 09/11/2015 01/21/2017 Overview: --increased watery stool output through ostomy; 01/16: c-diff neg --start imodium BID Acute pulmonary embolism 08/06/2015 016 Overview: --Patient presented with pleuritic Chest Pain, Heparin gtt initiated until PE ruled out --Negative for PE CT with PE protocol. Heparin drip was discontinued. 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 --c/o blood in urine & dysuria. 2+ Hb on UA. Check BK urine. Empiric cipro started --07/08- symptoms improving --07/09: +BK (162,000) copies: continue cipro for tx. 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 Treated w ganciclovir. Plan: - continue acyclovir - monitor tac levels Dysmetabolic syndrome X 09/07/20 16 Obesity 09/08/2017 Overview: Obesity class III Body mass index is 32.09 kg/(m^2). 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 Treated with vori, then changed to posa d/t presumed resistance. Repeat CT chest 10/12/14 improved. 12/14/14 CT clear --ppx posa PFO (patent foramen ovale) 11/06 Obstructive lung disease (generalized) 02/04/2016 Overview: --monitor. No h/o smoking. Not currently on any treatment at this time. Reduced FEV1 and DLCO. recent Pneumothorax on right Overview: --right sided chest pain that radiates to the scapula. Worse with deep breath. Scapula tender to palpation. -- CXR showedsmall right apical pneumothorax. EKG unremarkable. Cardiac enzymes negative. --Right apical pneumothorax most likely cause of her chest pain. No respiratory distress. On room air. --11/30 CXR shows pneumo no longer visible. 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 food related vs GVHD; pt cutting back on snacking today; on GVHD diet (GI soft/fiber controlled). --stool [id number] 07/05 (down from 2500ml 07/04). Some blood in stool overnight 07/05; platelets transfused. No blood noted afterward. --increased stool 1725ml 07/06. No colonoscopy; continue to hold off on ECP; 07/09-stool output decreasing; monitor documented as of this encounter (statuses as of 03/26/2023) [facility]07-06-2023 History of Past illness Narrative* Problem Noted Date Diagnosed Date Resolved Date Small bowel obstruction 03/25/2023 07/0 03/2023 Shortness of breath 10/14/2020 06/19/20 22 Parastomal hernia 05/29/2020 06/04/2020 Last Assessment & Plan: Assessment: s/p 05/29 parastomal hernia repair with TAR PLAN: -continue postoperative care Colostomy status 09/18/2018 06/03/2022 PEPE (acute kidney injury) 09/12/2018 Overview: Last Assessment & Plan: SCr normalized to 1.02 today, SCr 3.2 on admission at OSH. Baseline 0.8-1.0. Likely 2/2 dehydration from vomiting and hyperCa. Continue MIVF as discussed elsewhere. Last Assessment & Plan: SCr normalized to 1.02 today, SCr 3.2 on admission at OSH. Baseline 0.8-1.0. Likely 2/2 dehydration from vomiting and hyperCa. Continue MIVF as discussed elsewhere. Stage 3 chronic kidney disease 05/13/2018 06/03/2022 Dehydration 05/13/2018 06/03/2022 Itching 01/11/2018 02/18/2018 Insomnia 01/11/2018 09/18/2018 Abnormal echocardiogram 06/03/201708/20 SBO (small bowel obstruction) 01/25/2017 06/05/2017 Abdominal pain 01/25/2017 01/25/2017 Overview: --01/24 Outside ER admit for 10 abd pain, decreased Colostomy output. CT 01/24/17 with new hernia in RLQ. --5/8 Pt states no abd pain/craming and pain 0/10, +stool output and tolerating liquids and solids. Plan for General Surg f/u outpatient for h/o SBO. 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 may need to increase FK and/or start low dose steroids Bronchopneumonia due to gallito n metapneumovirus (hMPV) 01/14/2017 01/29/2017 Overview: -- presented as fever, cough, sinus NULL. -- RVP was (+) for Human metapneumovirus --CXR ? basilar atalectasis v pneumonia; --CT sinus acute sinusitis - u/a C&S neg - had persistent fevers and received 2 days of zosyn (01/16-01/17); -- zosyn was dc'd with all cultures being neg and she remained afebrile -- developed hypoxia with a positive desat study -- DC'd Home with O2 f/u 01/20/[address] Tatyana KIM (right bundle branch block) 09/24/2016 05/18/2018 Abnormality of gait 09/11/2016 01/22/20 17 Secondary adrenal insufficiency 09/07/2016 04/27/2018 Type 2 diabetes mellitus wit h microalbuminuria, without long-term current use of insulin 07/02/2016 02/10/2022 Physical deconditioning 10/01/201508/20 Overview: Per LDT 10/30/15 fci charges Diarrhea 09/11/2015 01/21/2017 Overview: --increased watery stool output through ostomy; 01/16: c-diff neg --start imodium BID Acute pulmonary embolism 08/06/2015 Overview: --Patient presented with pleuritic Chest Pain, Heparin gtt initiated until PE ruled out --Negative for PE CT with PE protocol. Heparin drip was discontinued. 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 --c/o blood in urine & dysuria. 2+ Hb on UA. Check BK urine. Empiric cipro started --07/08- symptoms improving --07/09: +BK (162,000) copies: continue cipro for tx. 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 Treated w ganciclovir. Plan: - continue acyclovir - monitor tac levels Dysmetabolic syndrome X 08/20 Obesity 09/08/2017 Overview: Obesity class III Body mass index is 32.09 kg/(m^2). 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 Treated with vori, then changed to posa d/t presumed resistance. Repeat CT chest 10/12/14 improved. 12/14/14 CT clear --ppx posa PFO (patent foramen ovale) 0 11/06/2016 Obstructive lung disease (generalized) 02/04/2016 Overview: --monitor. No h/o smoking. Not currently on any treatment at this time. Reduced FEV1 and DLCO. recent Pneumothorax on right 02/04/2016 Overview: --right sided chest pain that radiates to the scapula. Worse with deep breath. Scapula tender to palpation. -- CXR showedsmall right apical pneumothorax. EKG unremarkable. Cardiac enzymes negative. --Right apical pneumothorax most likely cause of her chest pain. No respiratory distress. On room air. --11/30 CXR shows pneumo no longer visible. 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 food related vs GVHD; pt cutting back on snacking today; on GVHD diet (GI soft/fiber controlled). --stool [id number] 07/05 (down from 2500ml 07/04). Some blood in stool overnight 07/05; platelets transfused. No blood noted afterward. --increased stool 1725ml 07/06. No colonoscopy; continue to hold off on ECP; 07/09-stool output decreasing; monitor documented as of this encounter (statuses as of 03/30/2023) [facility]07-06-2023 History of Past illness Narrative* Problem Noted Date Diagnosed Date Resolved Date Small bowel obstruction 03/25/2023 07/0 03/2023 Shortness of breath 10/14/2020 06/19/20 22 Parastomal hernia 05/29/2020 06/04/2020 Last Assessment & Plan: Assessment: s/p 05/29 parastomal hernia repair with TAR PLAN: -continue postoperative care Colostomy status 09/18/2018 06/03/2022 PEPE (acute kidney injury) 09/12/2018 Overview: Last Assessment & Plan: SCr normalized to 1.02 today, SCr 3.2 on admission at OSH. Baseline 0.8-1.0. Likely 2/2 dehydration from vomiting and hyperCa. Continue MIVF as discussed elsewhere. Last Assessment & Plan: SCr normalized to 1.02 today, SCr 3.2 on admission at OSH. Baseline 0.8-1.0. Likely 2/2 dehydration from vomiting and hyperCa. Continue MIVF as discussed elsewhere. Stage 3 chronic kidney disease 05/13/2018 06/03/2022 Dehydration 05/13/2018 06/03/2022 Itching 01/11/2018 02/18/2018 Insomnia 01/11/2018 09/18/2018 Abnormal echocardiogram 06/03/201708/20 SBO (small bowel obstruction) 01/25/2017 06/05/2017 Abdominal pain 01/25/2017 01/25/2017 Overview: --01/24 Outside ER admit for 06/29 abd pain, decreased Colostomy output. CT 01/24/17 with new hernia in RLQ. --01/25 Pt states no abd pain/craming and pain 0/10, +stool output and tolerating liquids and solids. Plan for General Surg f/u outpatient for h/o SBO. 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 may need to increase FK and/or start low dose steroids Bronchopneumonia due to gallito n metapneumovirus (hMPV) 01/14/2017 01/29/2017 Overview: -- presented as fever, cough, sinus NULL. -- RVP was (+) for Human metapneumovirus --CXR ? basilar atalectasis v pneumonia; --CT sinus acute sinusitis - u/a C&S neg - had persistent fevers and received 2 days of zosyn (01/16-01/17); -- zosyn was dc'd with all cultures being neg and she remained afebrile -- developed hypoxia with a positive desat study -- DC'd Home with O2 f/u 01/20/[address] Joe RBBB (right bundle branch block) 09/24/2016 05/18/2018 Abnormality of gait 09/11/2016 01/22/20 Secondary adrenal insufficiency 09/07/2016 04/27/2018 Type 2 diabetes mellitus wit h microalbuminuria, without long-term current use of insulin 07/02/2016 02/10/2022 Physical deconditioning 10/01/201508/20 Overview: Per LDT 10/30/15 fci charges Diarrhea 09/11/2015 01/21/2017 Overview: --increased watery stool output through ostomy; 01/16: c-diff neg --start imodium BID Acute pulmonary embolism 08/06/2015 Overview: --Patient presented with pleuritic Chest Pain, Heparin gtt initiated until PE ruled out --Negative for PE CT with PE protocol. Heparin drip was discontinued. 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 --c/o blood in urine & dysuria. 2+ Hb on UA. Check BK urine. Empiric cipro started --07/08- symptoms improving --07/09: +BK (162,000) copies: continue cipro for tx. 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 Treated w ganciclovir. Plan: - continue acyclovir - monitor tac levels Dysmetabolic syndrome X 08/20 Obesity 09/08/2017 Overview: Obesity class III Body mass index is 32.09 kg/(m^2). 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 Treated with vori, then changed to posa d/t presumed resistance. Repeat CT chest 10/12/14 improved. 12/14/14 CT clear --ppx posa PFO (patent foramen ovale) 0 11/06/2016 Obstructive lung disease (generalized) 02/04/2016 Overview: --monitor. No h/o smoking. Not currently on any treatment at this time. Reduced FEV1 and DLCO. recent Pneumothorax on right 02/04/2016 Overview: --right sided chest pain that radiates to the scapula. Worse with deep breath. Scapula tender to palpation. -- CXR showedsmall right apical pneumothorax. EKG unremarkable. Cardiac enzymes negative. --Right apical pneumothorax most likely cause of her chest pain. No respiratory distress. On room air. --11/30 CXR shows pneumo no longer visible. 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 food related vs GVHD; pt cutting back on snacking today; on GVHD diet (GI soft/fiber controlled). --stool [id number] 07/05 (down from 2500ml 07/04). Some blood in stool overnight 07/05; platelets transfused. No blood noted afterward. --increased stool 1725ml 07/06. No colonoscopy; continue to hold off on ECP; 07/09-stool output decreasing; monitor documented as of this encounter (statuses as of 03/31/2023) [facility]07-06-2023 History of Past illness Narrative* Problem Noted Date Diagnosed Date Resolved Date Small bowel obstruction 03/25/2023 07/0 03/2023 Shortness of breath 10/14/2020 06/19/20 22 Parastomal hernia 05/29/2020 06/04/2020 Last Assessment & Plan: Assessment: s/p 05/29 parastomal hernia repair with TAR PLAN: -continue postoperative care Colostomy status 09/18/2018 06/03/2022 PEPE (acute kidney injury) 09/12/2018 Overview: Last Assessment & Plan: SCr normalized to 1.02 today, SCr 3.2 on admission at OSH. Baseline 0.8-1.0. Likely 2/2 dehydration from vomiting and hyperCa. Continue MIVF as discussed elsewhere. Last Assessment & Plan: SCr normalized to 1.02 today, SCr 3.2 on admission at OSH. Baseline 0.8-1.0. Likely 2/2 dehydration from vomiting and hyperCa. Continue MIVF as discussed elsewhere. Stage 3 chronic kidney disease 05/13/2018 06/03/2022 Dehydration 05/13/2018 06/03/2022 Itching 01/11/2018 02/18/2018 Insomnia 01/11/2018 09/18/2018 Abnormal echocardiogram 06/03/201708/20 SBO (small bowel obstruction) 01/25/2017 06/05/2017 Abdominal pain 01/25/2017 01/25/2017 Overview: --01/24 Outside ER admit for 06/29 abd pain, decreased Colostomy output. CT 01/24/17 with new hernia in RLQ. --01/25 Pt states no abd pain/craming and pain 0/10, +stool output and tolerating liquids and solids. Plan for General Surg f/u outpatient for h/o SBO. 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 may need to increase FK and/or start low dose steroids Bronchopneumonia due to gallito n metapneumovirus (hMPV) 01/14/2017 01/29/2017 Overview: -- presented as fever, cough, sinus NULL. -- RVP was (+) for Human metapneumovirus --CXR ? basilar atalectasis v pneumonia; --CT sinus acute sinusitis - u/a C&S neg - had persistent fevers and received 2 days of zosyn (01/16-01/17); -- zosyn was dc'd with all cultures being neg and she remained afebrile -- developed hypoxia with a positive desat study -- DC'd Home with O2 f/u 01/20/[address] Tatyana KIM (right bundle branch block) 09/24/2016 05/18/2018 Abnormality of gait 09/11/2016 01/22/20 Secondary adrenal insufficiency 09/07/2016 04/27/2018 Type 2 diabetes mellitus wit h microalbuminuria, without long-term current use of insulin 07/02/2016 02/10/2022 Physical deconditioning 10/01/201508/20 Overview: Per LDT 10/30/15 fci charges Diarrhea 09/11/2015 01/21/2017 Overview: --increased watery stool output through ostomy; 01/16: c-diff neg --start imodium BID Acute pulmonary embolism 08/06/2015 Overview: --Patient presented with pleuritic Chest Pain, Heparin gtt initiated until PE ruled out --Negative for PE CT with PE protocol. Heparin drip was discontinued. 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 --c/o blood in urine & dysuria. 2+ Hb on UA. Check BK urine. Empiric cipro started --07/08- symptoms improving --07/09: +BK (162,000) copies: continue cipro for tx. 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 Treated w ganciclovir. Plan: - continue acyclovir - monitor tac levels Dysmetabolic syndrome X 08/20 Obesity 09/08/2017 Overview: Obesity class III Body mass index is 32.09 kg/(m^2). 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 Treated with vori, then changed to posa d/t presumed resistance. Repeat CT chest 10/12/14 improved. 12/14/14 CT clear --ppx posa PFO (patent foramen ovale) 0 11/06/2016 Obstructive lung disease (generalized) 02/04/2016 Overview: --monitor. No h/o smoking. Not currently on any treatment at this time. Reduced FEV1 and DLCO. recent Pneumothorax on right 02/04/2016 Overview: --right sided chest pain that radiates to the scapula. Worse with deep breath. Scapula tender to palpation. -- CXR showedsmall right apical pneumothorax. EKG unremarkable. Cardiac enzymes negative. --Right apical pneumothorax most likely cause of her chest pain. No respiratory distress. On room air. --11/30 CXR shows pneumo no longer visible. 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 food related vs GVHD; pt cutting back on snacking today; on GVHD diet (GI soft/fiber controlled). --stool [id number] 07/05 (down from 2500ml 07/04). Some blood in stool overnight 07/05; platelets transfused. No blood noted afterward. --increased stool 1725ml 07/06. No colonoscopy; continue to hold off on ECP; 07/09-stool output decreasing; monitor documented as of this encounter (statuses as of 04/28/2023) [facility]07-06-2023 History of Past illness Narrative* Problem Noted Date Diagnosed Date Resolved Date Small bowel obstruction 03/25/2023 07/0 03/2023 Shortness of breath 10/14/2020 06/19/20 22 Parastomal hernia 05/29/2020 06/04/2020 Last Assessment & Plan: Assessment: s/p 05/29 parastomal hernia repair with TAR PLAN: -continue postoperative care Colostomy status 09/18/2018 06/03/2022 PEPE (acute kidney injury) 09/12/2018 Overview: Last Assessment & Plan: SCr normalized to 1.02 today, SCr 3.2 on admission at OSH. Baseline 0.8-1.0. Likely 2/2 dehydration from vomiting and hyperCa. Continue MIVF as discussed elsewhere. Last Assessment & Plan: SCr normalized to 1.02 today, SCr 3.2 on admission at OSH. Baseline 0.8-1.0. Likely 2/2 dehydration from vomiting and hyperCa. Continue MIVF as discussed elsewhere. Stage 3 chronic kidney disease 05/13/2018 06/03/2022 Dehydration 05/13/2018 06/03/2022 Itching 01/11/2018 02/18/2018 Insomnia 01/11/2018 09/18/2018 Abnormal echocardiogram 06/03/201708/20 SBO (small bowel obstruction) 01/25/2017 06/05/2017 Abdominal pain 01/25/2017 01/25/2017 Overview: --5/7 Outside ER admit for 10/10 abd pain, decreased Colostomy output. CT 01/24/17 with new hernia in RLQ. --5/8 Pt states no abd pain/craming and pain 0/10, +stool output and tolerating liquids and solids. Plan for General Surg f/u outpatient for h/o SBO. 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 may need to increase FK and/or start low dose steroids Bronchopneumonia due to gallito n metapneumovirus (hMPV) 01/14/2017 01/29/2017 Overview: -- presented as fever, cough, sinus NULL. -- RVP was (+) for Human metapneumovirus --CXR ? basilar atalectasis v pneumonia; --CT sinus acute sinusitis - u/a C&S neg - had persistent fevers and received 2 days of zosyn (01/16-01/17); -- zosyn was dc'd with all cultures being neg and she remained afebrile -- developed hypoxia with a positive desat study -- DC'd Home with O2 f/u 01/20/[address] Tatyana KIM (right bundle branch block) 09/24/2016 05/18/2018 Abnormality of gait 09/11/2016 01/22/20 17 Secondary adrenal insufficiency 09/07/2016 04/27/2018 Type 2 diabetes mellitus wit h microalbuminuria, without long-term current use of insulin 07/02/2016 02/10/2022 Physical deconditioning 10/01/201508/20 Overview: Per LDT 10/30/15 fci charges Diarrhea 09/11/2015 01/21/2017 Overview: --increased watery stool output through ostomy; 01/16: c-diff neg --start imodium BID Acute pulmonary embolism 08/06/2015 Overview: --Patient presented with pleuritic Chest Pain, Heparin gtt initiated until PE ruled out --Negative for PE CT with PE protocol. Heparin drip was discontinued. 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 --c/o blood in urine & dysuria. 2+ Hb on UA. Check BK urine. Empiric cipro started --07/08- symptoms improving --07/09: +BK (162,000) copies: continue cipro for tx. 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 Treated w ganciclovir. Plan: - continue acyclovir - monitor tac levels Dysmetabolic syndrome X 08/20 Obesity 09/08/2017 Overview: Obesity class III Body mass index is 32.09 kg/(m^2). 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 Treated with vori, then changed to posa d/t presumed resistance. Repeat CT chest 10/12/14 improved. 12/14/14 CT clear --ppx posa PFO (patent foramen ovale) 0 11/06/2016 Obstructive lung disease (generalized) 02/04/2016 Overview: --monitor. No h/o smoking. Not currently on any treatment at this time. Reduced FEV1 and DLCO. recent Pneumothorax on right 02/04/2016 Overview: --right sided chest pain that radiates to the scapula. Worse with deep breath. Scapula tender to palpation. -- CXR showedsmall right apical pneumothorax. EKG unremarkable. Cardiac enzymes negative. --Right apical pneumothorax most likely cause of her chest pain. No respiratory distress. On room air. --11/30 CXR shows pneumo no longer visible. 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 food related vs GVHD; pt cutting back on snacking today; on GVHD diet (GI soft/fiber controlled). --stool [id number] 07/05 (down from 2500ml 07/04). Some blood in stool overnight 07/05; platelets transfused. No blood noted afterward. --increased stool 1725ml 07/06. No colonoscopy; continue to hold off on ECP; 07/09-stool output decreasing; monitor documented as of this encounter (statuses as of 04/28/2023) [facility]07-06-2023 History of Past illness Narrative* Problem Noted Date Diagnosed Date Resolved Date Small bowel obstruction 03/25/2023 07/0 03/2023 Shortness of breath 10/14/2020 06/19/20 22 Parastomal hernia 05/29/2020 06/04/2020 Last Assessment & Plan: Assessment: s/p 05/29 parastomal hernia repair with TAR PLAN: -continue postoperative care Colostomy status 09/18/2018 06/03/2022 PEPE (acute kidney injury) 09/12/2018 Overview: Last Assessment & Plan: SCr normalized to 1.02 today, SCr 3.2 on admission at OSH. Baseline 0.8-1.0. Likely 2/2 dehydration from vomiting and hyperCa. Continue MIVF as discussed elsewhere. Last Assessment & Plan: SCr normalized to 1.02 today, SCr 3.2 on admission at OSH. Baseline 0.8-1.0. Likely 2/2 dehydration from vomiting and hyperCa. Continue MIVF as discussed elsewhere. Stage 3 chronic kidney disease 05/13/2018 06/03/2022 Dehydration 05/13/2018 06/03/2022 Itching 01/11/2018 02/18/2018 Insomnia 01/11/2018 09/18/2018 Abnormal echocardiogram 06/03/201708/20 SBO (small bowel obstruction) 01/25/2017 06/05/2017 Abdominal pain 01/25/2017 01/25/2017 Overview: --01/24 Outside ER admit for 06/29 abd pain, decreased Colostomy output. CT 01/24/17 with new hernia in RLQ. --01/25 Pt states no abd pain/craming and pain 0/10, +stool output and tolerating liquids and solids. Plan for General Surg f/u outpatient for h/o SBO. 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 may need to increase FK and/or start low dose steroids Bronchopneumonia due to gallito n metapneumovirus (hMPV) 01/14/2017 01/29/2017 Overview: -- presented as fever, cough, sinus NULL. -- RVP was (+) for Human metapneumovirus --CXR ? basilar atalectasis v pneumonia; --CT sinus acute sinusitis - u/a C&S neg - had persistent fevers and received 2 days of zosyn (01/16-01/17); -- zosyn was dc'd with all cultures being neg and she remained afebrile -- developed hypoxia with a positive desat study -- DC'd Home with O2 f/u 01/20/[address] Tatyana KIM (right bundle branch block) 09/24/2016 05/18/2018 Abnormality of gait 09/11/2016 01/22/20 Secondary adrenal insufficiency 09/07/2016 04/27/2018 Type 2 diabetes mellitus wit h microalbuminuria, without long-term current use of insulin 07/02/2016 02/10/2022 Physical deconditioning 10/01/201508/20 Overview: Per LDT 10/30/15 fci charges Diarrhea 09/11/2015 01/21/2017 Overview: --increased watery stool output through ostomy; 01/16: c-diff neg --start imodium BID Acute pulmonary embolism 08/06/2015 Overview: --Patient presented with pleuritic Chest Pain, Heparin gtt initiated until PE ruled out --Negative for PE CT with PE protocol. Heparin drip was discontinued. 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 --c/o blood in urine & dysuria. 2+ Hb on UA. Check BK urine. Empiric cipro started --07/08- symptoms improving --07/09: +BK (162,000) copies: continue cipro for tx. 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 Treated w ganciclovir. Plan: - continue acyclovir - monitor tac levels Dysmetabolic syndrome X 08/20 Obesity 09/08/2017 Overview: Obesity class III Body mass index is 32.09 kg/(m^2). 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 Treated with vori, then changed to posa d/t presumed resistance. Repeat CT chest 10/12/14 improved. 12/14/14 CT clear --ppx posa PFO (patent foramen ovale) 0 11/06/2016 Obstructive lung disease (generalized) 02/04/2016 Overview: --monitor. No h/o smoking. Not currently on any treatment at this time. Reduced FEV1 and DLCO. recent Pneumothorax on right 02/04/2016 Overview: --right sided chest pain that radiates to the scapula. Worse with deep breath. Scapula tender to palpation. -- CXR showedsmall right apical pneumothorax. EKG unremarkable. Cardiac enzymes negative. --Right apical pneumothorax most likely cause of her chest pain. No respiratory distress. On room air. --11/30 CXR shows pneumo no longer visible. 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 food related vs GVHD; pt cutting back on snacking today; on GVHD diet (GI soft/fiber controlled). --stool [id number] 07/05 (down from 2500ml 07/04). Some blood in stool overnight 07/05; platelets transfused. No blood noted afterward. --increased stool 1725ml 07/06. No colonoscopy; continue to hold off on ECP; 07/09-stool output decreasing; monitor documented as of this encounter (statuses as of 05/27/2023) [facility]07-06-2023 History of Past illness Narrative* Problem Noted Date Diagnosed Date Resolved Date Small bowel obstruction 03/25/2023 07/0 03/2023 Shortness of breath 10/14/2020 06/19/20 22 Parastomal hernia 05/29/2020 06/04/2020 Last Assessment & Plan: Assessment: s/p 05/29 parastomal hernia repair with TAR PLAN: -continue postoperative care Colostomy status 09/18/2018 06/03/2022 PEPE (acute kidney injury) 09/12/2018 Overview: Last Assessment & Plan: SCr normalized to 1.02 today, SCr 3.2 on admission at OSH. Baseline 0.8-1.0. Likely 2/2 dehydration from vomiting and hyperCa. Continue MIVF as discussed elsewhere. Last Assessment & Plan: SCr normalized to 1.02 today, SCr 3.2 on admission at OSH. Baseline 0.8-1.0. Likely 2/2 dehydration from vomiting and hyperCa. Continue MIVF as discussed elsewhere. Stage 3 chronic kidney disease 05/13/2018 06/03/2022 Dehydration 05/13/2018 06/03/2022 Itching 01/11/2018 02/18/2018 Insomnia 01/11/2018 09/18/2018 Abnormal echocardiogram 06/03/201708/20 SBO (small bowel obstruction) 01/25/2017 06/05/2017 Abdominal pain 01/25/2017 01/25/2017 Overview: --01/24 Outside ER admit for 06/29 abd pain, decreased Colostomy output. CT 01/24/17 with new hernia in RLQ. --01/25 Pt states no abd pain/craming and pain 0/10, +stool output and tolerating liquids and solids. Plan for General Surg f/u outpatient for h/o SBO. 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 may need to increase FK and/or start low dose steroids Bronchopneumonia due to gallito n metapneumovirus (hMPV) 01/14/2017 01/29/2017 Overview: -- presented as fever, cough, sinus NULL. -- RVP was (+) for Human metapneumovirus --CXR ? basilar atalectasis v pneumonia; --CT sinus acute sinusitis - u/a C&S neg - had persistent fevers and received 2 days of zosyn (01/16-01/17); -- zosyn was dc'd with all cultures being neg and she remained afebrile -- developed hypoxia with a positive desat study -- DC'd Home with O2 f/u 01/20/[address] Tatyana KIM (right bundle branch block) 09/24/2016 05/18/2018 Abnormality of gait 09/11/2016 01/22/20 17 Secondary adrenal insufficiency 09/07/2016 04/27/2018 Type 2 diabetes mellitus wit h microalbuminuria, without long-term current use of insulin 07/02/2016 02/10/2022 Physical deconditioning 10/01/201508/20 Overview: Per LDT 10/30/15 fci charges Diarrhea 09/11/2015 01/21/2017 Overview: --increased watery stool output through ostomy; 01/16: c-diff neg --start imodium BID Acute pulmonary embolism 08/06/2015 Overview: --Patient presented with pleuritic Chest Pain, Heparin gtt initiated until PE ruled out --Negative for PE CT with PE protocol. Heparin drip was discontinued. 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 --c/o blood in urine & dysuria. 2+ Hb on UA. Check BK urine. Empiric cipro started --07/08- symptoms improving --07/09: +BK (162,000) copies: continue cipro for tx. 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 Treated w ganciclovir. Plan: - continue acyclovir - monitor tac levels Dysmetabolic syndrome X 08/20 Obesity 09/08/2017 Overview: Obesity class III Body mass index is 32.09 kg/(m^2). 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 Treated with vori, then changed to posa d/t presumed resistance. Repeat CT chest 10/12/14 improved. 12/14/14 CT clear --ppx posa PFO (patent foramen ovale) 0 11/06/2016 Obstructive lung disease (generalized) 02/04/2016 Overview: --monitor. No h/o smoking. Not currently on any treatment at this time. Reduced FEV1 and DLCO. recent Pneumothorax on right 02/04/2016 Overview: --right sided chest pain that radiates to the scapula. Worse with deep breath. Scapula tender to palpation. -- CXR showedsmall right apical pneumothorax. EKG unremarkable. Cardiac enzymes negative. --Right apical pneumothorax most likely cause of her chest pain. No respiratory distress. On room air. --11/30 CXR shows pneumo no longer visible. 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 food related vs GVHD; pt cutting back on snacking today; on GVHD diet (GI soft/fiber controlled). --stool [id number] 07/05 (down from 2500ml 07/04). Some blood in stool overnight 07/05; platelets transfused. No blood noted afterward. --increased stool 1725ml 07/06. No colonoscopy; continue to hold off on ECP; 07/09-stool output decreasing; monitor documented as of this encounter (statuses as of 06/01/2023) [facility]07-06-2023 History of Past illness Narrative* Problem Noted Date Diagnosed Date Resolved Date Small bowel obstruction 03/25/2023 07/0 03/2023 Shortness of breath 10/14/2020 06/19/20 22 Parastomal hernia 05/29/2020 06/04/2020 Last Assessment & Plan: Assessment: s/p 05/29 parastomal hernia repair with TAR PLAN: -continue postoperative care Colostomy status 09/18/2018 06/03/2022 PEPE (acute kidney injury) 09/12/2018 Overview: Last Assessment & Plan: SCr normalized to 1.02 today, SCr 3.2 on admission at OSH. Baseline 0.8-1.0. Likely 2/2 dehydration from vomiting and hyperCa. Continue MIVF as discussed elsewhere. Last Assessment & Plan: SCr normalized to 1.02 today, SCr 3.2 on admission at OSH. Baseline 0.8-1.0. Likely 2/2 dehydration from vomiting and hyperCa. Continue MIVF as discussed elsewhere. Stage 3 chronic kidney disease 05/13/2018 06/03/2022 Dehydration 05/13/2018 06/03/2022 Itching 01/11/2018 02/18/2018 Insomnia 01/11/2018 09/18/2018 Abnormal echocardiogram 06/03/201708/20 SBO (small bowel obstruction) 01/25/2017 06/05/2017 Abdominal pain 01/25/2017 01/25/2017 Overview: --5/7 Outside ER admit for 10/10 abd pain, decreased Colostomy output. CT 01/24/17 with new hernia in RLQ. --5/8 Pt states no abd pain/craming and pain 0/10, +stool output and tolerating liquids and solids. Plan for General Surg f/u outpatient for h/o SBO. 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 may need to increase FK and/or start low dose steroids Bronchopneumonia due to gallito n metapneumovirus (hMPV) 01/14/2017 01/29/2017 Overview: -- presented as fever, cough, sinus NULL. -- RVP was (+) for Human metapneumovirus --CXR ? basilar atalectasis v pneumonia; --CT sinus acute sinusitis - u/a C&S neg - had persistent fevers and received 2 days of zosyn (01/16-01/17); -- zosyn was dc'd with all cultures being neg and she remained afebrile -- developed hypoxia with a positive desat study -- DC'd Home with O2 f/u 01/20/[address] Tatyana KIM (right bundle branch block) 09/24/2016 05/18/2018 Abnormality of gait 09/11/2016 01/22/20 17 Secondary adrenal insufficiency 09/07/2016 04/27/2018 Type 2 diabetes mellitus wit h microalbuminuria, without long-term current use of insulin 07/02/2016 02/10/2022 Physical deconditioning 10/01/201508/20 Overview: Per LDT 10/30/15 fci charges Diarrhea 09/11/2015 01/21/2017 Overview: --increased watery stool output through ostomy; 01/16: c-diff neg --start imodium BID Acute pulmonary embolism 08/06/2015 Overview: --Patient presented with pleuritic Chest Pain, Heparin gtt initiated until PE ruled out --Negative for PE CT with PE protocol. Heparin drip was discontinued. 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 --c/o blood in urine & dysuria. 2+ Hb on UA. Check BK urine. Empiric cipro started --07/08- symptoms improving --07/09: +BK (162,000) copies: continue cipro for tx. 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 Treated w ganciclovir. Plan: - continue acyclovir - monitor tac levels Dysmetabolic syndrome X 08/20 Obesity 09/08/2017 Overview: Obesity class III Body mass index is 32.09 kg/(m^2). 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 Treated with vori, then changed to posa d/t presumed resistance. Repeat CT chest 10/12/14 improved. 12/14/14 CT clear --ppx posa PFO (patent foramen ovale) 0 11/06/2016 Obstructive lung disease (generalized) 02/04/2016 Overview: --monitor. No h/o smoking. Not currently on any treatment at this time. Reduced FEV1 and DLCO. recent Pneumothorax on right 02/04/2016 Overview: --right sided chest pain that radiates to the scapula. Worse with deep breath. Scapula tender to palpation. -- CXR showedsmall right apical pneumothorax. EKG unremarkable. Cardiac enzymes negative. --Right apical pneumothorax most likely cause of her chest pain. No respiratory distress. On room air. --11/30 CXR shows pneumo no longer visible. 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 food related vs GVHD; pt cutting back on snacking today; on GVHD diet (GI soft/fiber controlled). --stool [id number] 07/05 (down from 2500ml 07/04). Some blood in stool overnight 07/05; platelets transfused. No blood noted afterward. --increased stool 1725ml 07/06. No colonoscopy; continue to hold off on ECP; 07/09-stool output decreasing; monitor documented as of this encounter (statuses as of 06/03/2023) [facility]07-06-2023 History of Past illness Narrative* Problem Noted Date Diagnosed Date Resolved Date Small bowel obstruction 03/25/2023 07/0 03/2023 Shortness of breath 10/14/2020 06/19/20 22 Parastomal hernia 05/29/2020 06/04/2020 Last Assessment & Plan: Assessment: s/p 05/29 parastomal hernia repair with TAR PLAN: -continue postoperative care Colostomy status 09/18/2018 06/03/2022 PEPE (acute kidney injury) 09/12/2018 Overview: Last Assessment & Plan: SCr normalized to 1.02 today, SCr 3.2 on admission at OSH. Baseline 0.8-1.0. Likely 2/2 dehydration from vomiting and hyperCa. Continue MIVF as discussed elsewhere. Last Assessment & Plan: SCr normalized to 1.02 today, SCr 3.2 on admission at OSH. Baseline 0.8-1.0. Likely 2/2 dehydration from vomiting and hyperCa. Continue MIVF as discussed elsewhere. Stage 3 chronic kidney disease 05/13/2018 06/03/2022 Dehydration 05/13/2018 06/03/2022 Itching 01/11/2018 02/18/2018 Insomnia 01/11/2018 09/18/2018 Abnormal echocardiogram 06/03/201708/20 SBO (small bowel obstruction) 01/25/2017 06/05/2017 Abdominal pain 01/25/2017 01/25/2017 Overview: --01/24 Outside ER admit for 06/29 abd pain, decreased Colostomy output. CT 01/24/17 with new hernia in RLQ. --01/25 Pt states no abd pain/craming and pain 0/10, +stool output and tolerating liquids and solids. Plan for General Surg f/u outpatient for h/o SBO. 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 may need to increase FK and/or start low dose steroids Bronchopneumonia due to gallito n metapneumovirus (hMPV) 01/14/2017 01/29/2017 Overview: -- presented as fever, cough, sinus NULL. -- RVP was (+) for Human metapneumovirus --CXR ? basilar atalectasis v pneumonia; --CT sinus acute sinusitis - u/a C&S neg - had persistent fevers and received 2 days of zosyn (01/16-01/17); -- zosyn was dc'd with all cultures being neg and she remained afebrile -- developed hypoxia with a positive desat study -- DC'd Home with O2 f/u 01/20/[address] Tatyana KIM (right bundle branch block) 09/24/2016 05/18/2018 Abnormality of gait 09/11/2016 01/22/20 Secondary adrenal insufficiency 09/07/2016 04/27/2018 Type 2 diabetes mellitus wit h microalbuminuria, without long-term current use of insulin 07/02/2016 02/10/2022 Physical deconditioning 10/01/201508/20 Overview: Per LDT 10/30/15 fci charges Diarrhea 09/11/2015 01/21/2017 Overview: --increased watery stool output through ostomy; 01/16: c-diff neg --start imodium BID Acute pulmonary embolism 08/06/2015 Overview: --Patient presented with pleuritic Chest Pain, Heparin gtt initiated until PE ruled out --Negative for PE CT with PE protocol. Heparin drip was discontinued. 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 --c/o blood in urine & dysuria. 2+ Hb on UA. Check BK urine. Empiric cipro started --07/08- symptoms improving --07/09: +BK (162,000) copies: continue cipro for tx. 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 Treated w ganciclovir. Plan: - continue acyclovir - monitor tac levels Dysmetabolic syndrome X 08/20 Obesity 09/08/2017 Overview: Obesity class III Body mass index is 32.09 kg/(m^2). 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 Treated with vori, then changed to posa d/t presumed resistance. Repeat CT chest 10/12/14 improved. 12/14/14 CT clear --ppx posa PFO (patent foramen ovale) 0 11/06/2016 Obstructive lung disease (generalized) 02/04/2016 Overview: --monitor. No h/o smoking. Not currently on any treatment at this time. Reduced FEV1 and DLCO. recent Pneumothorax on right 02/04/2016 Overview: --right sided chest pain that radiates to the scapula. Worse with deep breath. Scapula tender to palpation. -- CXR showedsmall right apical pneumothorax. EKG unremarkable. Cardiac enzymes negative. --Right apical pneumothorax most likely cause of her chest pain. No respiratory distress. On room air. --11/30 CXR shows pneumo no longer visible. 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 food related vs GVHD; pt cutting back on snacking today; on GVHD diet (GI soft/fiber controlled). --stool [id number] 07/05 (down from 2500ml 07/04). Some blood in stool overnight 07/05; platelets transfused. No blood noted afterward. --increased stool 1725ml 07/06. No colonoscopy; continue to hold off on ECP; 07/09-stool output decreasing; monitor documented as of this encounter (statuses as of 06/08/2023) [facility]07-06-2023 History of Past illness Narrative* Problem Noted Date Diagnosed Date Resolved Date Small bowel obstruction 03/25/2023 07/0 03/2023 Shortness of breath 10/14/2020 06/19/20 22 Parastomal hernia 05/29/2020 06/04/2020 Last Assessment & Plan: Assessment: s/p 05/29 parastomal hernia repair with TAR PLAN: -continue postoperative care Colostomy status 09/18/2018 06/03/2022 PEPE (acute kidney injury) 09/12/2018 Overview: Last Assessment & Plan: SCr normalized to 1.02 today, SCr 3.2 on admission at OSH. Baseline 0.8-1.0. Likely 2/2 dehydration from vomiting and hyperCa. Continue MIVF as discussed elsewhere. Last Assessment & Plan: SCr normalized to 1.02 today, SCr 3.2 on admission at OSH. Baseline 0.8-1.0. Likely 2/2 dehydration from vomiting and hyperCa. Continue MIVF as discussed elsewhere. Stage 3 chronic kidney disease 05/13/2018 06/03/2022 Dehydration 05/13/2018 06/03/2022 Itching 01/11/2018 02/18/2018 Insomnia 01/11/2018 09/18/2018 Abnormal echocardiogram 06/03/201708/20 SBO (small bowel obstruction) 01/25/2017 06/05/2017 Abdominal pain 01/25/2017 01/25/2017 Overview: --01/24 Outside ER admit for 06/29 abd pain, decreased Colostomy output. CT 01/24/17 with new hernia in RLQ. --01/25 Pt states no abd pain/craming and pain 0/10, +stool output and tolerating liquids and solids. Plan for General Surg f/u outpatient for h/o SBO. 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 may need to increase FK and/or start low dose steroids Bronchopneumonia due to gallito n metapneumovirus (hMPV) 01/14/2017 01/29/2017 Overview: -- presented as fever, cough, sinus NULL. -- RVP was (+) for Human metapneumovirus --CXR ? basilar atalectasis v pneumonia; --CT sinus acute sinusitis - u/a C&S neg - had persistent fevers and received 2 days of zosyn (01/16-01/17); -- zosyn was dc'd with all cultures being neg and she remained afebrile -- developed hypoxia with a positive desat study -- DC'd Home with O2 f/u 01/20/[address] Tatyana KIM (right bundle branch block) 09/24/2016 05/18/2018 Abnormality of gait 09/11/2016 01/22/20 Secondary adrenal insufficiency 09/07/2016 04/27/2018 Type 2 diabetes mellitus wit h microalbuminuria, without long-term current use of insulin (HCC) 07/02/2016 02/10/2022 Physical deconditioning 10/01/201508/20 Overview: Per LDT 10/30/15 fci charges Diarrhea 09/11/2015 01/21/2017 Overview: --increased watery stool output through ostomy; 01/16: c-diff neg --start imodium BID Acute pulmonary embolism 08/06/2015 Overview: --Patient presented with pleuritic Chest Pain, Heparin gtt initiated until PE ruled out --Negative for PE CT with PE protocol. Heparin drip was discontinued. 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 --c/o blood in urine & dysuria. 2+ Hb on UA. Check BK urine. Empiric cipro started --07/08- symptoms improving --07/09: +BK (162,000) copies: continue cipro for tx. 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 Treated w ganciclovir. Plan: - continue acyclovir - monitor tac levels Dysmetabolic syndrome X 08/20 Obesity 09/08/2017 Overview: Obesity class III Body mass index is 32.09 kg/(m^2). 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 Treated with vori, then changed to posa d/t presumed resistance. Repeat CT chest 10/12/14 improved. 12/14/14 CT clear --ppx posa PFO (patent foramen ovale) 0 11/06/2016 Obstructive lung disease (generalized) 02/04/2016 Overview: --monitor. No h/o smoking. Not currently on any treatment at this time. Reduced FEV1 and DLCO. recent Pneumothorax on right 02/04/2016 Overview: --right sided chest pain that radiates to the scapula. Worse with deep breath. Scapula tender to palpation. -- CXR showedsmall right apical pneumothorax. EKG unremarkable. Cardiac enzymes negative. --Right apical pneumothorax most likely cause of her chest pain. No respiratory distress. On room air. --11/30 CXR shows pneumo no longer visible. 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 food related vs GVHD; pt cutting back on snacking today; on GVHD diet (GI soft/fiber controlled). --stool [id number] 07/05 (down from 2500ml 07/04). Some blood in stool overnight 07/05; platelets transfused. No blood noted afterward. --increased stool 1725ml 07/06. No colonoscopy; continue to hold off on ECP; 07/09-stool output decreasing; monitor documented as of this encounter (statuses as of 06/24/2023) [facility]07-06-2023 History of Past illness Narrative* Problem Noted Date Diagnosed Date Resolved Date Small bowel obstruction 03/25/2023 07/0 03/2023 Shortness of breath 10/14/2020 06/19/20 22 Parastomal hernia 05/29/2020 06/04/2020 Last Assessment & Plan: Assessment: s/p 05/29 parastomal hernia repair with TAR PLAN: -continue postoperative care Colostomy status 09/18/2018 06/03/2022 PEPE (acute kidney injury) 09/12/2018 Overview: Last Assessment & Plan: SCr normalized to 1.02 today, SCr 3.2 on admission at OSH. Baseline 0.8-1.0. Likely 2/2 dehydration from vomiting and hyperCa. Continue MIVF as discussed elsewhere. Last Assessment & Plan: SCr normalized to 1.02 today, SCr 3.2 on admission at OSH. Baseline 0.8-1.0. Likely 2/2 dehydration from vomiting and hyperCa. Continue MIVF as discussed elsewhere. Stage 3 chronic kidney disease 05/13/2018 06/03/2022 Dehydration 05/13/2018 06/03/2022 Itching 01/11/2018 02/18/2018 Insomnia 01/11/2018 09/18/2018 Abnormal echocardiogram 06/03/201708/20 SBO (small bowel obstruction) 01/25/2017 06/05/2017 Abdominal pain 01/25/2017 01/25/2017 Overview: --01/24 Outside ER admit for 10/10 abd pain, decreased Colostomy output. CT 01/24/17 with new hernia in RLQ. --58 Pt states no abd pain/craming and pain 0/10, +stool output and tolerating liquids and solids. Plan for General Surg f/u outpatient for h/o SBO. 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 may need to increase FK and/or start low dose steroids Bronchopneumonia due to gallito n metapneumovirus (hMPV) 01/14/2017 01/29/2017 Overview: -- presented as fever, cough, sinus NULL. -- RVP was (+) for Human metapneumovirus --CXR ? basilar atalectasis v pneumonia; --CT sinus acute sinusitis - u/a C&S neg - had persistent fevers and received 2 days of zosyn (01/16-01/17); -- zosyn was dc'd with all cultures being neg and she remained afebrile -- developed hypoxia with a positive desat study -- DC'd Home with O2 f/u 01/20/[address] Tatyana KIM (right bundle branch block) 09/24/2016 05/18/2018 Abnormality of gait 09/11/2016 01/22/20 Secondary adrenal insufficiency 09/07/2016 04/27/2018 Type 2 diabetes mellitus wit h microalbuminuria, without long-term current use of insulin (HCC) 07/02/2016 02/10/2022 Physical deconditioning 10/01/201508/20 Overview: Per LDT 10/30/15 fci charges Diarrhea 09/11/2015 01/21/2017 Overview: --increased watery stool output through ostomy; 01/16: c-diff neg --start imodium BID Acute pulmonary embolism 08/06/2015 Overview: --Patient presented with pleuritic Chest Pain, Heparin gtt initiated until PE ruled out --Negative for PE CT with PE protocol. Heparin drip was discontinued. 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 --c/o blood in urine & dysuria. 2+ Hb on UA. Check BK urine. Empiric cipro started --07/08- symptoms improving --07/09: +BK (162,000) copies: continue cipro for tx. 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 Treated w ganciclovir. Plan: - continue acyclovir - monitor tac levels Dysmetabolic syndrome X 08/20 Obesity 09/08/2017 Overview: Obesity class III Body mass index is 32.09 kg/(m^2). 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 Treated with vori, then changed to posa d/t presumed resistance. Repeat CT chest 10/12/14 improved. 12/14/14 CT clear --ppx posa PFO (patent foramen ovale) 0 11/06/2016 Obstructive lung disease (generalized) 02/04/2016 Overview: --monitor. No h/o smoking. Not currently on any treatment at this time. Reduced FEV1 and DLCO. recent Pneumothorax on right 02/04/2016 Overview: --right sided chest pain that radiates to the scapula. Worse with deep breath. Scapula tender to palpation. -- CXR showedsmall right apical pneumothorax. EKG unremarkable. Cardiac enzymes negative. --Right apical pneumothorax most likely cause of her chest pain. No respiratory distress. On room air. --11/30 CXR shows pneumo no longer visible. 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 food related vs GVHD; pt cutting back on snacking today; on GVHD diet (GI soft/fiber controlled). --stool [id number] 07/05 (down from 2500ml 07/04). Some blood in stool overnight 07/05; platelets transfused. No blood noted afterward. --increased stool 1725ml 07/06. No colonoscopy; continue to hold off on ECP; 07/09-stool output decreasing; monitor documented as of this encounter (statuses as of 06/29/2023) [facility]07-06-2023 History of Past illness Narrative* Problem Noted Date Diagnosed Date Resolved Date Small bowel obstruction 03/25/2023 07/0 03/2023 Shortness of breath 10/14/2020 06/19/20 22 Parastomal hernia 05/29/2020 06/04/2020 Last Assessment & Plan: Assessment: s/p 05/29 parastomal hernia repair with TAR PLAN: -continue postoperative care Colostomy status 09/18/2018 06/03/2022 PEPE (acute kidney injury) 09/12/2018 Overview: Last Assessment & Plan: SCr normalized to 1.02 today, SCr 3.2 on admission at OSH. Baseline 0.8-1.0. Likely 2/2 dehydration from vomiting and hyperCa. Continue MIVF as discussed elsewhere. Last Assessment & Plan: SCr normalized to 1.02 today, SCr 3.2 on admission at OSH. Baseline 0.8-1.0. Likely 2/2 dehydration from vomiting and hyperCa. Continue MIVF as discussed elsewhere. Stage 3 chronic kidney disease 05/13/2018 06/03/2022 Dehydration 05/13/2018 06/03/2022 Itching 01/11/2018 02/18/2018 Insomnia 01/11/2018 09/18/2018 Abnormal echocardiogram 06/03/201708/20 SBO (small bowel obstruction) 01/25/2017 06/05/2017 Abdominal pain 01/25/2017 01/25/2017 Overview: --5/7 Outside ER admit for 10/10 abd pain, decreased Colostomy output. CT 01/24/17 with new hernia in RLQ. --5/8 Pt states no abd pain/craming and pain 0/10, +stool output and tolerating liquids and solids. Plan for General Surg f/u outpatient for h/o SBO. 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 may need to increase FK and/or start low dose steroids Bronchopneumonia due to gallito n metapneumovirus (hMPV) 01/14/2017 01/29/2017 Overview: -- presented as fever, cough, sinus NULL. -- RVP was (+) for Human metapneumovirus --CXR ? basilar atalectasis v pneumonia; --CT sinus acute sinusitis - u/a C&S neg - had persistent fevers and received 2 days of zosyn (01/16-01/17); -- zosyn was dc'd with all cultures being neg and she remained afebrile -- developed hypoxia with a positive desat study -- DC'd Home with O2 f/u 01/20/[address] Tatyana KIM (right bundle branch block) 09/24/2016 05/18/2018 Abnormality of gait 09/11/2016 01/22/20 Secondary adrenal insufficiency 09/07/2016 04/27/2018 Type 2 diabetes mellitus wit h microalbuminuria, without long-term current use of insulin (HCC) 07/02/2016 02/10/2022 Physical deconditioning 10/01/201508/20 Overview: Per LDT 10/30/15 fci charges Diarrhea 09/11/2015 01/21/2017 Overview: --increased watery stool output through ostomy; 01/16: c-diff neg --start imodium BID Acute pulmonary embolism 08/06/2015 Overview: --Patient presented with pleuritic Chest Pain, Heparin gtt initiated until PE ruled out --Negative for PE CT with PE protocol. Heparin drip was discontinued. 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 --c/o blood in urine & dysuria. 2+ Hb on UA. Check BK urine. Empiric cipro started --07/08- symptoms improving --07/09: +BK (162,000) copies: continue cipro for tx. 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 Treated w ganciclovir. Plan: - continue acyclovir - monitor tac levels Dysmetabolic syndrome X 08/20 Obesity 09/08/2017 Overview: Obesity class III Body mass index is 32.09 kg/(m^2). 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 Treated with vori, then changed to posa d/t presumed resistance. Repeat CT chest 10/12/14 improved. 12/14/14 CT clear --ppx posa PFO (patent foramen ovale) 0 11/06/2016 Obstructive lung disease (generalized) 02/04/2016 Overview: --monitor. No h/o smoking. Not currently on any treatment at this time. Reduced FEV1 and DLCO. recent Pneumothorax on right 02/04/2016 Overview: --right sided chest pain that radiates to the scapula. Worse with deep breath. Scapula tender to palpation. -- CXR showedsmall right apical pneumothorax. EKG unremarkable. Cardiac enzymes negative. --Right apical pneumothorax most likely cause of her chest pain. No respiratory distress. On room air. --11/30 CXR shows pneumo no longer visible. 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 food related vs GVHD; pt cutting back on snacking today; on GVHD diet (GI soft/fiber controlled). --stool [id number] 07/05 (down from 2500ml 07/04). Some blood in stool overnight 07/05; platelets transfused. No blood noted afterward. --increased stool 1725ml 07/06. No colonoscopy; continue to hold off on ECP; 07/09-stool output decreasing; monitor documented as of this encounter (statuses as of 07/16/2023) [facility]07-06-2023 History of Past illness Narrative* Problem Noted Date Diagnosed Date Resolved Date Small bowel obstruction 03/25/2023 07/0 03/2023 Shortness of breath 10/14/2020 06/19/20 22 Parastomal hernia 05/29/2020 06/04/2020 Last Assessment & Plan: Assessment: s/p 05/29 parastomal hernia repair with TAR PLAN: -continue postoperative care Colostomy status 09/18/2018 06/03/2022 PEPE (acute kidney injury) 09/12/2018 Overview: Last Assessment & Plan: SCr normalized to 1.02 today, SCr 3.2 on admission at OSH. Baseline 0.8-1.0. Likely 2/2 dehydration from vomiting and hyperCa. Continue MIVF as discussed elsewhere. Last Assessment & Plan: SCr normalized to 1.02 today, SCr 3.2 on admission at OSH. Baseline 0.8-1.0. Likely 2/2 dehydration from vomiting and hyperCa. Continue MIVF as discussed elsewhere. Stage 3 chronic kidney disease 05/13/2018 06/03/2022 Dehydration 05/13/2018 06/03/2022 Itching 01/11/2018 02/18/2018 Insomnia 01/11/2018 09/18/2018 Abnormal echocardiogram 06/03/201708/20 SBO (small bowel obstruction) 01/25/2017 06/05/2017 Abdominal pain 01/25/2017 01/25/2017 Overview: --01/24 Outside ER admit for 06/29 abd pain, decreased Colostomy output. CT 01/24/17 with new hernia in RLQ. --01/25 Pt states no abd pain/craming and pain 0/10, +stool output and tolerating liquids and solids. Plan for General Surg f/u outpatient for h/o SBO. 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 may need to increase FK and/or start low dose steroids Bronchopneumonia due to gallito n metapneumovirus (hMPV) 01/14/2017 01/29/2017 Overview: -- presented as fever, cough, sinus NULL. -- RVP was (+) for Human metapneumovirus --CXR ? basilar atalectasis v pneumonia; --CT sinus acute sinusitis - u/a C&S neg - had persistent fevers and received 2 days of zosyn (01/16-01/17); -- zosyn was dc'd with all cultures being neg and she remained afebrile -- developed hypoxia with a positive desat study -- DC'd Home with O2 f/u 01/20/[address] Joe RBBB (right bundle branch block) 09/24/2016 05/18/2018 Abnormality of gait 09/11/2016 01/22/20 Secondary adrenal insufficiency 09/07/2016 04/27/2018 Type 2 diabetes mellitus wit h microalbuminuria, without long-term current use of insulin ([facility]) 07/02/2016 02/10/2022 Physical deconditioning 10/01/201508/20 Overview: Per LDT 10/30/15 fci charges Diarrhea 09/11/2015 01/21/2017 Overview: --increased watery stool output through ostomy; 01/16: c-diff neg --start imodium BID Acute pulmonary embolism 08/06/2015 Overview: --Patient presented with pleuritic Chest Pain, Heparin gtt initiated until PE ruled out --Negative for PE CT with PE protocol. Heparin drip was discontinued. 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 --c/o blood in urine & dysuria. 2+ Hb on UA. Check BK urine. Empiric cipro started --07/08- symptoms improving --07/09: +BK (162,000) copies: continue cipro for tx. 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 Treated w ganciclovir. Plan: - continue acyclovir - monitor tac levels Dysmetabolic syndrome X 08/20 Obesity 09/08/2017 Overview: Obesity class III Body mass index is 32.09 kg/(m^2). 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 Treated with vori, then changed to posa d/t presumed resistance. Repeat CT chest 10/12/14 improved. 12/14/14 CT clear --ppx posa PFO (patent foramen ovale) 0 11/06/2016 Obstructive lung disease (generalized) 02/04/2016 Overview: --monitor. No h/o smoking. Not currently on any treatment at this time. Reduced FEV1 and DLCO. recent Pneumothorax on right 02/04/2016 Overview: --right sided chest pain that radiates to the scapula. Worse with deep breath. Scapula tender to palpation. -- CXR showedsmall right apical pneumothorax. EKG unremarkable. Cardiac enzymes negative. --Right apical pneumothorax most likely cause of her chest pain. No respiratory distress. On room air. --11/30 CXR shows pneumo no longer visible. 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 food related vs GVHD; pt cutting back on snacking today; on GVHD diet (GI soft/fiber controlled). --stool [id number] 07/05 (down from 2500ml 07/04). Some blood in stool overnight 07/05; platelets transfused. No blood noted afterward. --increased stool 1725ml 07/06. No colonoscopy; continue to hold off on ECP; 07/09-stool output decreasing; monitor documented as of this encounter (statuses as of 07/21/2023) [facility]07-06-2023 History of Past illness Narrative* Problem Noted Date Diagnosed Date Resolved Date Small bowel obstruction 03/25/2023 07/0 03/2023 Shortness of breath 10/14/2020 06/19/20 22 Parastomal hernia 05/29/2020 06/04/2020 Last Assessment & Plan: Assessment: s/p 05/29 parastomal hernia repair with TAR PLAN: -continue postoperative care Colostomy status 09/18/2018 06/03/2022 PEPE (acute kidney injury) 09/12/2018 Overview: Last Assessment & Plan: SCr normalized to 1.02 today, SCr 3.2 on admission at OSH. Baseline 0.8-1.0. Likely 2/2 dehydration from vomiting and hyperCa. Continue MIVF as discussed elsewhere. Last Assessment & Plan: SCr normalized to 1.02 today, SCr 3.2 on admission at OSH. Baseline 0.8-1.0. Likely 2/2 dehydration from vomiting and hyperCa. Continue MIVF as discussed elsewhere. Stage 3 chronic kidney disease 05/13/2018 06/03/2022 Dehydration 05/13/2018 06/03/2022 Itching 01/11/2018 02/18/2018 Insomnia 01/11/2018 09/18/2018 Abnormal echocardiogram 06/03/201708/20 SBO (small bowel obstruction) 01/25/2017 06/05/2017 Abdominal pain 01/25/2017 01/25/2017 Overview: --01/24 Outside ER admit for 06/29 abd pain, decreased Colostomy output. CT 01/24/17 with new hernia in RLQ. --01/25 Pt states no abd pain/craming and pain 0/10, +stool output and tolerating liquids and solids. Plan for General Surg f/u outpatient for h/o SBO. 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 may need to increase FK and/or start low dose steroids Bronchopneumonia due to gallito n metapneumovirus (hMPV) 01/14/2017 01/29/2017 Overview: -- presented as fever, cough, sinus NULL. -- RVP was (+) for Human metapneumovirus --CXR ? basilar atalectasis v pneumonia; --CT sinus acute sinusitis - u/a C&S neg - had persistent fevers and received 2 days of zosyn (01/16-01/17); -- zosyn was dc'd with all cultures being neg and she remained afebrile -- developed hypoxia with a positive desat study -- DC'd Home with O2 f/u 01/20/[address] Tatyana KIM (right bundle branch block) 09/24/2016 05/18/2018 Abnormality of gait 09/11/2016 05/04/20 17 Secondary adrenal insufficiency 09/07/2016 04/27/2018 Type 2 diabetes mellitus wit h microalbuminuria, without long-term current use of insulin 07/02/2016 02/10/2022 Physical deconditioning 10/01/201508/20 Overview: Per LDT 10/30/15 fci charges Diarrhea 09/11/2015 01/21/2017 Overview: --increased watery stool output through ostomy; 01/16: c-diff neg --start imodium BID Acute pulmonary embolism 08/06/2015 Overview: --Patient presented with pleuritic Chest Pain, Heparin gtt initiated until PE ruled out --Negative for PE CT with PE protocol. Heparin drip was discontinued. 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 --c/o blood in urine & dysuria. 2+ Hb on UA. Check BK urine. Empiric cipro started --07/08- symptoms improving --07/09: +BK (162,000) copies: continue cipro for tx. 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 Treated w ganciclovir. Plan: - continue acyclovir - monitor tac levels Dysmetabolic syndrome X 08/20 Obesity 09/08/2017 Overview: Obesity class III Body mass index is 32.09 kg/(m^2). 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 Treated with vori, then changed to posa d/t presumed resistance. Repeat CT chest 10/12/14 improved. 12/14/14 CT clear --ppx posa PFO (patent foramen ovale) 0 11/06/2016 Obstructive lung disease (generalized) 02/04/2016 Overview: --monitor. No h/o smoking. Not currently on any treatment at this time. Reduced FEV1 and DLCO. recent Pneumothorax on right 02/04/2016 Overview: --right sided chest pain that radiates to the scapula. Worse with deep breath. Scapula tender to palpation. -- CXR showedsmall right apical pneumothorax. EKG unremarkable. Cardiac enzymes negative. --Right apical pneumothorax most likely cause of her chest pain. No respiratory distress. On room air. --11/30 CXR shows pneumo no longer visible. 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 food related vs GVHD; pt cutting back on snacking today; on GVHD diet (GI soft/fiber controlled). --stool [id number] 07/05 (down from 2500ml 07/04). Some blood in stool overnight 07/05; platelets transfused. No blood noted afterward. --increased stool 1725ml 07/06. No colonoscopy; continue to hold off on ECP; 07/09-stool output decreasing; monitor documented as of this encounter (statuses as of 07/25/2023) [facility]07-06-2023 History of Past illness Narrative* Problem Noted Date Diagnosed Date Resolved Date Small bowel obstruction 03/25/2023 07/0 03/2023 Shortness of breath 10/14/2020 06/19/20 22 Parastomal hernia 05/29/2020 06/04/2020 Last Assessment & Plan: Assessment: s/p 05/29 parastomal hernia repair with TAR PLAN: -continue postoperative care Colostomy status 09/18/2018 06/03/2022 PEPE (acute kidney injury) 09/12/2018 Overview: Last Assessment & Plan: SCr normalized to 1.02 today, SCr 3.2 on admission at OSH. Baseline 0.8-1.0. Likely 2/2 dehydration from vomiting and hyperCa. Continue MIVF as discussed elsewhere. Last Assessment & Plan: SCr normalized to 1.02 today, SCr 3.2 on admission at OSH. Baseline 0.8-1.0. Likely 2/2 dehydration from vomiting and hyperCa. Continue MIVF as discussed elsewhere. Stage 3 chronic kidney disease 05/13/2018 06/03/2022 Dehydration 05/13/2018 06/03/2022 Itching 01/11/2018 02/18/2018 Insomnia 01/11/2018 09/18/2018 Abnormal echocardiogram 06/03/201708/20 SBO (small bowel obstruction) 01/25/2017 06/05/2017 Abdominal pain 01/25/2017 01/25/2017 Overview: --5/7 Outside ER admit for 10/10 abd pain, decreased Colostomy output. CT 01/24/17 with new hernia in RLQ. --5/8 Pt states no abd pain/craming and pain 0/10, +stool output and tolerating liquids and solids. Plan for General Surg f/u outpatient for h/o SBO. 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 may need to increase FK and/or start low dose steroids Bronchopneumonia due to gallito n metapneumovirus (hMPV) 01/14/2017 01/29/2017 Overview: -- presented as fever, cough, sinus NULL. -- RVP was (+) for Human metapneumovirus --CXR ? basilar atalectasis v pneumonia; --CT sinus acute sinusitis - u/a C&S neg - had persistent fevers and received 2 days of zosyn (01/16-01/17); -- zosyn was dc'd with all cultures being neg and she remained afebrile -- developed hypoxia with a positive desat study -- DC'd Home with O2 f/u 01/20/[address] Tatyana KIM (right bundle branch block) 09/24/2016 05/18/2018 Abnormality of gait 09/11/2016 01/22/20 17 Secondary adrenal insufficiency 09/07/2016 04/27/2018 Type 2 diabetes mellitus wit h microalbuminuria, without long-term current use of insulin (HCC) 07/02/2016 02/10/2022 Physical deconditioning 10/01/201508/20 Overview: Per LDT 10/30/15 fci charges Diarrhea 09/11/2015 01/21/2017 Overview: --increased watery stool output through ostomy; 01/16: c-diff neg --start imodium BID Acute pulmonary embolism 08/06/2015 Overview: --Patient presented with pleuritic Chest Pain, Heparin gtt initiated until PE ruled out --Negative for PE CT with PE protocol. Heparin drip was discontinued. 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 --c/o blood in urine & dysuria. 2+ Hb on UA. Check BK urine. Empiric cipro started --07/08- symptoms improving --07/09: +BK (162,000) copies: continue cipro for tx. 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 Treated w ganciclovir. Plan: - continue acyclovir - monitor tac levels Dysmetabolic syndrome X 08/20 Obesity 09/08/2017 Overview: Obesity class III Body mass index is 32.09 kg/(m^2). 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 Treated with vori, then changed to posa d/t presumed resistance. Repeat CT chest 10/12/14 improved. 12/14/14 CT clear --ppx posa PFO (patent foramen ovale) 0 11/06/2016 Obstructive lung disease (generalized) 02/04/2016 Overview: --monitor. No h/o smoking. Not currently on any treatment at this time. Reduced FEV1 and DLCO. recent Pneumothorax on right 02/04/2016 Overview: --right sided chest pain that radiates to the scapula. Worse with deep breath. Scapula tender to palpation. -- CXR showedsmall right apical pneumothorax. EKG unremarkable. Cardiac enzymes negative. --Right apical pneumothorax most likely cause of her chest pain. No respiratory distress. On room air. --11/30 CXR shows pneumo no longer visible. 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 food related vs GVHD; pt cutting back on snacking today; on GVHD diet (GI soft/fiber controlled). --stool [id number] 07/05 (down from 2500ml 07/04). Some blood in stool overnight 07/05; platelets transfused. No blood noted afterward. --increased stool 1725ml 07/06. No colonoscopy; continue to hold off on ECP; 07/09-stool output decreasing; monitor documented as of this encounter (statuses as of 08/31/2023) [facility]07-06-2023 History of Past illness Narrative* Problem Noted Date Diagnosed Date Resolved Date Small bowel obstruction 03/25/2023 07/0 03/2023 Shortness of breath 10/14/2020 06/19/20 22 Parastomal hernia 05/29/2020 06/04/2020 Last Assessment & Plan: Assessment: s/p 05/29 parastomal hernia repair with TAR PLAN: -continue postoperative care Colostomy status 09/18/2018 06/03/2022 PEPE (acute kidney injury) 09/12/2018 Overview: Last Assessment & Plan: SCr normalized to 1.02 today, SCr 3.2 on admission at OSH. Baseline 0.8-1.0. Likely 2/2 dehydration from vomiting and hyperCa. Continue MIVF as discussed elsewhere. Last Assessment & Plan: SCr normalized to 1.02 today, SCr 3.2 on admission at OSH. Baseline 0.8-1.0. Likely 2/2 dehydration from vomiting and hyperCa. Continue MIVF as discussed elsewhere. Stage 3 chronic kidney disease 05/13/2018 06/03/2022 Dehydration 05/13/2018 06/03/2022 Itching 01/11/2018 02/18/2018 Insomnia 01/11/2018 09/18/2018 Abnormal echocardiogram 06/03/201708/20 SBO (small bowel obstruction) 01/25/2017 06/05/2017 Abdominal pain 01/25/2017 01/25/2017 Overview: --01/24 Outside ER admit for 1010 abd pain, decreased Colostomy output. CT 01/24/17 with new hernia in RLQ. --01/25 Pt states no abd pain/craming and pain 0/10, +stool output and tolerating liquids and solids. Plan for General Surg f/u outpatient for h/o SBO. 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 may need to increase FK and/or start low dose steroids Bronchopneumonia due to gallito n metapneumovirus (hMPV) 01/14/2017 01/29/2017 Overview: -- presented as fever, cough, sinus NULL. -- RVP was (+) for Human metapneumovirus --CXR ? basilar atalectasis v pneumonia; --CT sinus acute sinusitis - u/a C&S neg - had persistent fevers and received 2 days of zosyn (01/16-01/17); -- zosyn was dc'd with all cultures being neg and she remained afebrile -- developed hypoxia with a positive desat study -- DC'd Home with O2 f/u 01/20/[address] Tatyana KIM (right bundle branch block) 09/24/2016 05/18/2018 Abnormality of gait 09/11/2016 01/22/20 Secondary adrenal insufficiency 09/07/2016 04/27/2018 Type 2 diabetes mellitus wit h microalbuminuria, without long-term current use of insulin (HCC) 07/02/2016 02/10/2022 Physical deconditioning 10/01/201508/20 Overview: Per LDT 10/30/15 fci charges Diarrhea 09/11/2015 01/21/2017 Overview: --increased watery stool output through ostomy; 01/16: c-diff neg --start imodium BID Acute pulmonary embolism 08/06/2015 Overview: --Patient presented with pleuritic Chest Pain, Heparin gtt initiated until PE ruled out --Negative for PE CT with PE protocol. Heparin drip was discontinued. 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 --c/o blood in urine & dysuria. 2+ Hb on UA. Check BK urine. Empiric cipro started --07/08- symptoms improving --07/09: +BK (162,000) copies: continue cipro for tx. 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 Treated w ganciclovir. Plan: - continue acyclovir - monitor tac levels Dysmetabolic syndrome X 08/20 Obesity 09/08/2017 Overview: Obesity class III Body mass index is 32.09 kg/(m^2). 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 Treated with vori, then changed to posa d/t presumed resistance. Repeat CT chest 10/12/14 improved. 12/14/14 CT clear --ppx posa PFO (patent foramen ovale) 0 11/06/2016 Obstructive lung disease (generalized) 02/04/2016 Overview: --monitor. No h/o smoking. Not currently on any treatment at this time. Reduced FEV1 and DLCO. recent Pneumothorax on right 02/04/2016 Overview: --right sided chest pain that radiates to the scapula. Worse with deep breath. Scapula tender to palpation. -- CXR showedsmall right apical pneumothorax. EKG unremarkable. Cardiac enzymes negative. --Right apical pneumothorax most likely cause of her chest pain. No respiratory distress. On room air. --11/30 CXR shows pneumo no longer visible. 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 food related vs GVHD; pt cutting back on snacking today; on GVHD diet (GI soft/fiber controlled). --stool [id number] 07/05 (down from 2500ml 07/04). Some blood in stool overnight 07/05; platelets transfused. No blood noted afterward. --increased stool 1725ml 07/06. No colonoscopy; continue to hold off on ECP; 07/09-stool output decreasing; monitor documented as of this encounter (statuses as of 09/05/2023) [facility]07-06-2023 History of Past illness Narrative* Problem Noted Date Diagnosed Date Resolved Date Small bowel obstruction 03/25/2023 07/0 03/2023 Shortness of breath 10/14/2020 06/19/20 22 Parastomal hernia 05/29/2020 06/04/2020 Last Assessment & Plan: Assessment: s/p 05/29 parastomal hernia repair with TAR PLAN: -continue postoperative care Colostomy status 09/18/2018 06/03/2022 PEPE (acute kidney injury) 09/12/2018 Overview: Last Assessment & Plan: SCr normalized to 1.02 today, SCr 3.2 on admission at OSH. Baseline 0.8-1.0. Likely 2/2 dehydration from vomiting and hyperCa. Continue MIVF as discussed elsewhere. Last Assessment & Plan: SCr normalized to 1.02 today, SCr 3.2 on admission at OSH. Baseline 0.8-1.0. Likely 2/2 dehydration from vomiting and hyperCa. Continue MIVF as discussed elsewhere. Stage 3 chronic kidney disease 05/13/2018 06/03/2022 Dehydration 05/13/2018 06/03/2022 Itching 01/11/2018 02/18/2018 Insomnia 01/11/2018 09/18/2018 Abnormal echocardiogram 06/03/201708/20 SBO (small bowel obstruction) 01/25/2017 06/05/2017 Abdominal pain 01/25/2017 01/25/2017 Overview: --01/24 Outside ER admit for 06/29 abd pain, decreased Colostomy output. CT 01/24/17 with new hernia in RLQ. --01/25 Pt states no abd pain/craming and pain 0/10, +stool output and tolerating liquids and solids. Plan for General Surg f/u outpatient for h/o SBO. 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 may need to increase FK and/or start low dose steroids Bronchopneumonia due to gallito n metapneumovirus (hMPV) 01/14/2017 01/29/2017 Overview: -- presented as fever, cough, sinus NULL. -- RVP was (+) for Human metapneumovirus --CXR ? basilar atalectasis v pneumonia; --CT sinus acute sinusitis - u/a C&S neg - had persistent fevers and received 2 days of zosyn (01/16-01/17); -- zosyn was dc'd with all cultures being neg and she remained afebrile -- developed hypoxia with a positive desat study -- DC'd Home with O2 f/u 01/20/[address] Tatyana THORNTONBB (right bundle branch block) 09/24/2016 05/18/2018 Abnormality of gait 09/11/2016 01/22/20 Secondary adrenal insufficiency 09/07/2016 04/27/2018 Type 2 diabetes mellitus wit h microalbuminuria, without long-term current use of insulin (HCC) 07/02/2016 02/10/2022 Physical deconditioning 10/01/201508/20 Overview: Per LDT 10/30/15 fci charges Diarrhea 09/11/2015 01/21/2017 Overview: --increased watery stool output through ostomy; 01/16: c-diff neg --start imodium BID Acute pulmonary embolism 08/06/2015 Overview: --Patient presented with pleuritic Chest Pain, Heparin gtt initiated until PE ruled out --Negative for PE CT with PE protocol. Heparin drip was discontinued. 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 --c/o blood in urine & dysuria. 2+ Hb on UA. Check BK urine. Empiric cipro started --07/08- symptoms improving --07/09: +BK (162,000) copies: continue cipro for tx. S/P partial colectomy 06/20/20152016 Overview: --06/20/2015- ex lap, subtotal colectomy, and end ileostomy -- had some watery stoma output formed up on imodium -- home with prn imodium Cytomegalovirus (CMV) viremia 04/30/2015 09/07/2016 Overview: H/o CMV viremia, last checked 2/15/16, 142 copies. 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 Treated w ganciclovir. Plan: - continue acyclovir - monitor tac levels Dysmetabolic syndrome X 08/20 Obesity 09/08/2017 Overview: Obesity class III Body mass index is 32.09 kg/(m^2). 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 Treated with vori, then changed to posa d/t presumed resistance. Repeat CT chest 10/12/14 improved. 12/14/14 CT clear --ppx posa PFO (patent foramen ovale) 0 11/06/2016 Obstructive lung disease (generalized) 02/04/2016 Overview: --monitor. No h/o smoking. Not currently on any treatment at this time. Reduced FEV1 and DLCO. recent Pneumothorax on right 02/04/2016 Overview: --right sided chest pain that radiates to the scapula. Worse with deep breath. Scapula tender to palpation. -- CXR showedsmall right apical pneumothorax. EKG unremarkable. Cardiac enzymes negative. --Right apical pneumothorax most likely cause of her chest pain. No respiratory distress. On room air. --11/30 CXR shows pneumo no longer visible. 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 food related vs GVHD; pt cutting back on snacking today; on GVHD diet (GI soft/fiber controlled). --stool [id number] 07/05 (down from 2500ml 07/04). Some blood in stool overnight 07/05; platelets transfused. No blood noted afterward. --increased stool 1725ml 07/06. No colonoscopy; continue to hold off on ECP; 07/09-stool output decreasing; monitor documented as of this encounter (statuses as of 11/02/2023) [facility]07-06-2023 History of Past illness Narrative* Problem Noted Date Diagnosed Date Resolved Date Small bowel obstruction 03/25/2023 07/0 03/2023 Shortness of breath 10/14/2020 06/19/20 22 Parastomal hernia 05/29/2020 06/04/2020 Last Assessment & Plan: Assessment: s/p 05/29 parastomal hernia repair with TAR PLAN: -continue postoperative care Colostomy status 09/18/2018 06/03/2022 PEPE (acute kidney injury) 09/12/2018 Overview: Last Assessment & Plan: SCr normalized to 1.02 today, SCr 3.2 on admission at OSH. Baseline 0.8-1.0. Likely 2/2 dehydration from vomiting and hyperCa. Continue MIVF as discussed elsewhere. Last Assessment & Plan: SCr normalized to 1.02 today, SCr 3.2 on admission at OSH. Baseline 0.8-1.0. Likely 2/2 dehydration from vomiting and hyperCa. Continue MIVF as discussed elsewhere. Stage 3 chronic kidney disease 05/13/2018 06/03/2022 Dehydration 05/13/2018 06/03/2022 Itching 01/11/2018 02/18/2018 Insomnia 01/11/2018 09/18/2018 Abnormal echocardiogram 06/03/201708/20 SBO (small bowel obstruction) 01/25/2017 06/05/2017 Abdominal pain 01/25/2017 01/25/2017 Overview: --5/7 Outside ER admit for 10/10 abd pain, decreased Colostomy output. CT 01/24/17 with new hernia in RLQ. --5/8 Pt states no abd pain/craming and pain 0/10, +stool output and tolerating liquids and solids. Plan for General Surg f/u outpatient for h/o SBO. 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 may need to increase FK and/or start low dose steroids Bronchopneumonia due to gallito n metapneumovirus (hMPV) 01/14/2017 01/29/2017 Overview: -- presented as fever, cough, sinus NULL. -- RVP was (+) for Human metapneumovirus --CXR ? basilar atalectasis v pneumonia; --CT sinus acute sinusitis - u/a C&S neg - had persistent fevers and received 2 days of zosyn (01/16-01/17); -- zosyn was dc'd with all cultures being neg and she remained afebrile -- developed hypoxia with a positive desat study -- DC'd Home with O2 f/u 01/20/[address] Tatyana KIM (right bundle branch block) 09/24/2016 05/18/2018 Abnormality of gait 09/11/2016 01/22/20 Secondary adrenal insufficiency 09/07/2016 04/27/2018 Type 2 diabetes mellitus wit h microalbuminuria, without long-term current use of insulin (HCC) 07/02/2016 02/10/2022 Physical deconditioning 10/01/201508/20 Overview: Per LDT 10/30/15 fci charges Diarrhea 09/11/2015 01/21/2017 Overview: --increased watery stool output through ostomy; 01/16: c-diff neg --start imodium BID Acute pulmonary embolism 08/06/2015 Overview: --Patient presented with pleuritic Chest Pain, Heparin gtt initiated until PE ruled out --Negative for PE CT with PE protocol. Heparin drip was discontinued. 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 --c/o blood in urine & dysuria. 2+ Hb on UA. Check BK urine. Empiric cipro started --07/08- symptoms improving --07/09: +BK (162,000) copies: continue cipro for tx. 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 Treated w ganciclovir. Plan: - continue acyclovir - monitor tac levels Dysmetabolic syndrome X 08/20 Obesity 09/08/2017 Overview: Obesity class III Body mass index is 32.09 kg/(m^2). 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 Treated with vori, then changed to posa d/t presumed resistance. Repeat CT chest 10/12/14 improved. 12/14/14 CT clear --ppx posa PFO (patent foramen ovale) 0 11/06/2016 Obstructive lung disease (generalized) 02/04/2016 Overview: --monitor. No h/o smoking. Not currently on any treatment at this time. Reduced FEV1 and DLCO. recent Pneumothorax on right 02/04/2016 Overview: --right sided chest pain that radiates to the scapula. Worse with deep breath. Scapula tender to palpation. -- CXR showedsmall right apical pneumothorax. EKG unremarkable. Cardiac enzymes negative. --Right apical pneumothorax most likely cause of her chest pain. No respiratory distress. On room air. --11/30 CXR shows pneumo no longer visible. 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 food related vs GVHD; pt cutting back on snacking today; on GVHD diet (GI soft/fiber controlled). --stool [id number] 07/05 (down from 2500ml 07/04). Some blood in stool overnight 07/05; platelets transfused. No blood noted afterward. --increased stool 1725ml 07/06. No colonoscopy; continue to hold off on ECP; 07/09-stool output decreasing; monitor documented as of this encounter (statuses as of 11/02/2023) [facility]07-06-2023 History of Past illness Narrative* Problem Noted Date Diagnosed Date Resolved Date Small bowel obstruction 03/25/2023 07/0 03/2023 Shortness of breath 10/14/2020 06/19/20 22 Parastomal hernia 05/29/2020 06/04/2020 Last Assessment & Plan: Assessment: s/p 05/29 parastomal hernia repair with TAR PLAN: -continue postoperative care Colostomy status 09/18/2018 06/03/2022 PEPE (acute kidney injury) 09/12/2018 Overview: Last Assessment & Plan: SCr normalized to 1.02 today, SCr 3.2 on admission at OSH. Baseline 0.8-1.0. Likely 2/2 dehydration from vomiting and hyperCa. Continue MIVF as discussed elsewhere. Last Assessment & Plan: SCr normalized to 1.02 today, SCr 3.2 on admission at OSH. Baseline 0.8-1.0. Likely 2/2 dehydration from vomiting and hyperCa. Continue MIVF as discussed elsewhere. Stage 3 chronic kidney disease 05/13/2018 06/03/2022 Dehydration 05/13/2018 06/03/2022 Itching 01/11/2018 02/18/2018 Insomnia 01/11/2018 09/18/2018 Abnormal echocardiogram 06/03/201708/20 SBO (small bowel obstruction) 01/25/2017 06/05/2017 Abdominal pain 01/25/2017 01/25/2017 Overview: --5/7 Outside ER admit for 10/10 abd pain, decreased Colostomy output. CT 01/24/17 with new hernia in RLQ. --5/8 Pt states no abd pain/craming and pain 0/10, +stool output and tolerating liquids and solids. Plan for General Surg f/u outpatient for h/o SBO. 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 may need to increase FK and/or start low dose steroids Bronchopneumonia due to gallito n metapneumovirus (hMPV) 01/14/2017 01/29/2017 Overview: -- presented as fever, cough, sinus NULL. -- RVP was (+) for Human metapneumovirus --CXR ? basilar atalectasis v pneumonia; --CT sinus acute sinusitis - u/a C&S neg - had persistent fevers and received 2 days of zosyn (01/16-01/17); -- zosyn was dc'd with all cultures being neg and she remained afebrile -- developed hypoxia with a positive desat study -- DC'd Home with O2 f/u 01/20/[address] Tatyana KIM (right bundle branch block) 09/24/2016 05/18/2018 Abnormality of gait 09/11/2016 01/22/20 Secondary adrenal insufficiency 09/07/2016 04/27/2018 Type 2 diabetes mellitus wit h microalbuminuria, without long-term current use of insulin (HCC) 07/02/2016 02/10/2022 Physical deconditioning 10/01/201508/20 Overview: Per LDT 10/30/15 fci charges Diarrhea 09/11/2015 01/21/2017 Overview: --increased watery stool output through ostomy; 01/16: c-diff neg --start imodium BID Acute pulmonary embolism 08/06/2015 Overview: --Patient presented with pleuritic Chest Pain, Heparin gtt initiated until PE ruled out --Negative for PE CT with PE protocol. Heparin drip was discontinued. 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 --c/o blood in urine & dysuria. 2+ Hb on UA. Check BK urine. Empiric cipro started --07/08- symptoms improving --07/09: +BK (162,000) copies: continue cipro for tx. 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 Treated w ganciclovir. Plan: - continue acyclovir - monitor tac levels Dysmetabolic syndrome X 08/20 Obesity 09/08/2017 Overview: Obesity class III Body mass index is 32.09 kg/(m^2). 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 Treated with vori, then changed to posa d/t presumed resistance. Repeat CT chest 10/12/14 improved. 12/14/14 CT clear --ppx posa PFO (patent foramen ovale) 0 11/06/2016 Obstructive lung disease (generalized) 02/04/2016 Overview: --monitor. No h/o smoking. Not currently on any treatment at this time. Reduced FEV1 and DLCO. recent Pneumothorax on right 02/04/2016 Overview: --right sided chest pain that radiates to the scapula. Worse with deep breath. Scapula tender to palpation. -- CXR showedsmall right apical pneumothorax. EKG unremarkable. Cardiac enzymes negative. --Right apical pneumothorax most likely cause of her chest pain. No respiratory distress. On room air. --11/30 CXR shows pneumo no longer visible. 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 food related vs GVHD; pt cutting back on snacking today; on GVHD diet (GI soft/fiber controlled). --stool [id number] 07/05 (down from 2500ml 07/04). Some blood in stool overnight 07/05; platelets transfused. No blood noted afterward. --increased stool 1725ml 07/06. No colonoscopy; continue to hold off on ECP; 07/09-stool output decreasing; monitor documented as of this encounter (statuses as of 11/12/2023) [facility]07-06-2023 History of Past illness Narrative* Problem Noted Date Diagnosed Date Resolved Date Small bowel obstruction 03/25/2023 07/0 03/2023 Shortness of breath 10/14/2020 06/19/20 22 Parastomal hernia 05/29/2020 06/04/2020 Last Assessment & Plan: Assessment: s/p 05/29 parastomal hernia repair with TAR PLAN: -continue postoperative care Colostomy status 09/18/2018 06/03/2022 PEPE (acute kidney injury) 09/12/2018 Overview: Last Assessment & Plan: SCr normalized to 1.02 today, SCr 3.2 on admission at OSH. Baseline 0.8-1.0. Likely 2/2 dehydration from vomiting and hyperCa. Continue MIVF as discussed elsewhere. Last Assessment & Plan: SCr normalized to 1.02 today, SCr 3.2 on admission at OSH. Baseline 0.8-1.0. Likely 2/2 dehydration from vomiting and hyperCa. Continue MIVF as discussed elsewhere. Stage 3 chronic kidney disease 05/13/2018 06/03/2022 Dehydration 05/13/2018 06/03/2022 Itching 01/11/2018 02/18/2018 Insomnia 01/11/2018 09/18/2018 Abnormal echocardiogram 06/03/201708/20 SBO (small bowel obstruction) 01/25/2017 06/05/2017 Abdominal pain 01/25/2017 01/25/2017 Overview: --01/24 Outside ER admit for 06/29 abd pain, decreased Colostomy output. CT 01/24/17 with new hernia in RLQ. --01/25 Pt states no abd pain/craming and pain 0/10, +stool output and tolerating liquids and solids. Plan for General Surg f/u outpatient for h/o SBO. 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 may need to increase FK and/or start low dose steroids Bronchopneumonia due to gallito n metapneumovirus (hMPV) 01/14/2017 01/29/2017 Overview: -- presented as fever, cough, sinus NULL. -- RVP was (+) for Human metapneumovirus --CXR ? basilar atalectasis v pneumonia; --CT sinus acute sinusitis - u/a C&S neg - had persistent fevers and received 2 days of zosyn (01/16-01/17); -- zosyn was dc'd with all cultures being neg and she remained afebrile -- developed hypoxia with a positive desat study -- DC'd Home with O2 f/u 01/20/[address] Tatyana THORNTONBB (right bundle branch block) 09/24/2016 05/18/2018 Abnormality of gait 09/11/2016 01/22/20 Secondary adrenal insufficiency 09/07/2016 04/27/2018 Type 2 diabetes mellitus wit h microalbuminuria, without long-term current use of insulin ([facility]) 07/02/2016 02/10/2022 Physical deconditioning 10/01/201508/20 Overview: Per LDT 10/30/15 fci charges Diarrhea 09/11/2015 01/21/2017 Overview: --increased watery stool output through ostomy; 01/16: c-diff neg --start imodium BID Acute pulmonary embolism 08/06/2015 Overview: --Patient presented with pleuritic Chest Pain, Heparin gtt initiated until PE ruled out --Negative for PE CT with PE protocol. Heparin drip was discontinued. 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 --c/o blood in urine & dysuria. 2+ Hb on UA. Check BK urine. Empiric cipro started --07/08- symptoms improving --07/09: +BK (162,000) copies: continue cipro for tx. 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 Treated w ganciclovir. Plan: - continue acyclovir - monitor tac levels Dysmetabolic syndrome X 08/20 Obesity 09/08/2017 Overview: Obesity class III Body mass index is 32.09 kg/(m^2). 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 Treated with vori, then changed to posa d/t presumed resistance. Repeat CT chest 10/12/14 improved. 12/14/14 CT clear --ppx posa PFO (patent foramen ovale) 0 11/06/2016 Obstructive lung disease (generalized) 02/04/2016 Overview: --monitor. No h/o smoking. Not currently on any treatment at this time. Reduced FEV1 and DLCO. recent Pneumothorax on right 02/04/2016 Overview: --right sided chest pain that radiates to the scapula. Worse with deep breath. Scapula tender to palpation. -- CXR showedsmall right apical pneumothorax. EKG unremarkable. Cardiac enzymes negative. --Right apical pneumothorax most likely cause of her chest pain. No respiratory distress. On room air. --11/30 CXR shows pneumo no longer visible. 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 food related vs GVHD; pt cutting back on snacking today; on GVHD diet (GI soft/fiber controlled). --stool [id number] 07/05 (down from 2500ml 07/04). Some blood in stool overnight 07/05; platelets transfused. No blood noted afterward. --increased stool 1725ml 07/06. No colonoscopy; continue to hold off on ECP; 07/09-stool output decreasing; monitor documented as of this encounter (statuses as of 11/18/2023) [facility]07-06-2023 History of Past illness Narrative* Problem Noted Date Diagnosed Date Resolved Date Small bowel obstruction 03/25/2023 07/03/2023 Shortness of breath 10/14/2020 06/19/20 22 Parastomal hernia 05/29/2020 06/04/2020 Last Assessment & Plan: Assessment: s/p 05/29 parastomal hernia repair with TAR PLAN: -continue postoperative care Colostomy status 09/18/2018 06/03/2022 PEPE (acute kidney injury) 09/12/2018 Overview: Last Assessment & Plan: SCr normalized to 1.02 today, SCr 3.2 on admission at OSH. Baseline 0.8-1.0. Likely 2/2 dehydration from vomiting and hyperCa. Continue MIVF as discussed elsewhere. Last Assessment & Plan: SCr normalized to 1.02 today, SCr 3.2 on admission at OSH. Baseline 0.8-1.0. Likely 2/2 dehydration from vomiting and hyperCa. Continue MIVF as discussed elsewhere. Stage 3 chronic kidney disease 05/13/2018 06/03/2022 Dehydration 05/13/2018 06/03/2022 Itching 01/11/2018 02/18/2018 Insomnia 01/11/2018 09/18/2018 Abnormal echocardiogram 06/03/201708/20 SBO (small bowel obstruction) 01/25/2017 06/05/2017 Abdominal pain 01/25/2017 01/25/2017 Overview: --01/24 Outside ER admit for 10 abd pain, decreased Colostomy output. CT 01/24/17 with new hernia in RLQ. --01/25 Pt states no abd pain/craming and pain 0/10, +stool output and tolerating liquids and solids. Plan for General Surg f/u outpatient for h/o SBO. 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 may need to increase FK and/or start low dose steroids Bronchopneumonia due to gallito n metapneumovirus (hMPV) 01/14/2017 01/29/2017 Overview: -- presented as fever, cough, sinus NULL. -- RVP was (+) for Human metapneumovirus --CXR ? basilar atalectasis v pneumonia; --CT sinus acute sinusitis - u/a C&S neg - had persistent fevers and received 2 days of zosyn (01/16-01/17); -- zosyn was dc'd with all cultures being neg and she remained afebrile -- developed hypoxia with a positive desat study -- DC'd Home with O2 f/u 01/20/[address] Tatyana KIM (right bundle branch block) 09/24/2016 05/18/2018 Abnormality of gait 09/11/2016 01/22/20 17 Secondary adrenal insufficiency 09/07/2016 04/27/2018 Type 2 diabetes mellitus wit h microalbuminuria, without long-term current use of insulin ([facility]) 07/02/2016 02/10/2022 Physical deconditioning 10/01/201508/20 Overview: Per LDT 10/30/15 fci charges Diarrhea 09/11/2015 01/21/2017 Overview: --increased watery stool output through ostomy; 01/16: c-diff neg --start imodium BID Acute pulmonary embolism 08/06/2015 Overview: --Patient presented with pleuritic Chest Pain, Heparin gtt initiated until PE ruled out --Negative for PE CT with PE protocol. Heparin drip was discontinued. 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 --c/o blood in urine & dysuria. 2+ Hb on UA. Check BK urine. Empiric cipro started --07/08- symptoms improving --07/09: +BK (162,000) copies: continue cipro for tx. 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 Treated w ganciclovir. Plan: - continue acyclovir - monitor tac levels Dysmetabolic syndrome X 08/20 Obesity 09/08/2017 Overview: Obesity class III Body mass index is 32.09 kg/(m^2). 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 Treated with vori, then changed to posa d/t presumed resistance. Repeat CT chest 10/12/14 improved. 12/14/14 CT clear --ppx posa PFO (patent foramen ovale) 0 11/06/2016 Obstructive lung disease (generalized) 02/04/2016 Overview: --monitor. No h/o smoking. Not currently on any treatment at this time. Reduced FEV1 and DLCO. recent Pneumothorax on right 02/04/2016 Overview: --right sided chest pain that radiates to the scapula. Worse with deep breath. Scapula tender to palpation. -- CXR showedsmall right apical pneumothorax. EKG unremarkable. Cardiac enzymes negative. --Right apical pneumothorax most likely cause of her chest pain. No respiratory distress. On room air. --11/30 CXR shows pneumo no longer visible. 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 food related vs GVHD; pt cutting back on snacking today; on GVHD diet (GI soft/fiber controlled). --stool [id number] 07/05 (down from 2500ml 07/04). Some blood in stool overnight 07/05; platelets transfused. No blood noted afterward. --increased stool 1725ml 07/06. No colonoscopy; continue to hold off on ECP; 07/09-stool output decreasing; monitor documented as of this encounter (statuses as of 11/23/2023) [place] [id number] History of Past illness Narrative* Problem Noted Date Diagnosed Date Resolved Date Small bowel obstruction 03/25/2023 07/0 03/2023 Shortness of breath 10/14/2020 06/19/20 22 Parastomal hernia 05/29/2020 06/04/2020 Last Assessment & Plan: Assessment: s/p 05/29 parastomal hernia repair with TAR PLAN: -continue postoperative care Colostomy status 09/18/2018 06/03/2022 PEPE (acute kidney injury) 09/12/2018 Overview: Last Assessment & Plan: SCr normalized to 1.02 today, SCr 3.2 on admission at OSH. Baseline 0.8-1.0. Likely 2/2 dehydration from vomiting and hyperCa. Continue MIVF as discussed elsewhere. Last Assessment & Plan: SCr normalized to 1.02 today, SCr 3.2 on admission at OSH. Baseline 0.8-1.0. Likely 2/2 dehydration from vomiting and hyperCa. Continue MIVF as discussed elsewhere. Stage 3 chronic kidney disease 05/13/2018 06/03/2022 Dehydration 05/13/2018 06/03/2022 Itching 01/11/2018 02/18/2018 Insomnia 01/11/2018 09/18/2018 Abnormal echocardiogram 06/03/201708/20 SBO (small bowel obstruction) 01/25/2017 06/05/2017 Abdominal pain 01/25/2017 01/25/2017 Overview: --5/7 Outside ER admit for 10/10 abd pain, decreased Colostomy output. CT 01/24/17 with new hernia in RLQ. --5/8 Pt states no abd pain/craming and pain 0/10, +stool output and tolerating liquids and solids. Plan for General Surg f/u outpatient for h/o SBO. 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 may need to increase FK and/or start low dose steroids Bronchopneumonia due to gallito n metapneumovirus (hMPV) 01/14/2017 01/29/2017 Overview: -- presented as fever, cough, sinus NULL. -- RVP was (+) for Human metapneumovirus --CXR ? basilar atalectasis v pneumonia; --CT sinus acute sinusitis - u/a C&S neg - had persistent fevers and received 2 days of zosyn (01/16-01/17); -- zosyn was dc'd with all cultures being neg and she remained afebrile -- developed hypoxia with a positive desat study -- DC'd Home with O2 f/u 01/20/[address] Tatyana KIM (right bundle branch block) 09/24/2016 05/18/2018 Abnormality of gait 09/11/2016 01/22/20 17 Secondary adrenal insufficiency 09/07/2016 04/27/2018 Type 2 diabetes mellitus wit h microalbuminuria, without long-term current use of insulin ([facility]CC) 07/02/2016 02/10/2022 Physical deconditioning 10/01/201508/20 Overview: Per LDT 10/30/15 fci charges Diarrhea 09/11/2015 01/21/2017 Overview: --increased watery stool output through ostomy; 01/16: c-diff neg --start imodium BID Acute pulmonary embolism 08/06/2015 Overview: --Patient presented with pleuritic Chest Pain, Heparin gtt initiated until PE ruled out --Negative for PE CT with PE protocol. Heparin drip was discontinued. 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 --c/o blood in urine & dysuria. 2+ Hb on UA. Check BK urine. Empiric cipro started --07/08- symptoms improving --07/09: +BK (162,000) copies: continue cipro for tx. 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 Treated w ganciclovir. Plan: - continue acyclovir - monitor tac levels Dysmetabolic syndrome X 08/20 Obesity 09/08/2017 Overview: Obesity class III Body mass index is 32.09 kg/(m^2). 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 Treated with vori, then changed to posa d/t presumed resistance. Repeat CT chest 10/12/14 improved. 12/14/14 CT clear --ppx posa PFO (patent foramen ovale) 0 11/06/2016 Obstructive lung disease (generalized) 02/04/2016 Overview: --monitor. No h/o smoking. Not currently on any treatment at this time. Reduced FEV1 and DLCO. recent Pneumothorax on right 02/04/2016 Overview: --right sided chest pain that radiates to the scapula. Worse with deep breath. Scapula tender to palpation. -- CXR showedsmall right apical pneumothorax. EKG unremarkable. Cardiac enzymes negative. --Right apical pneumothorax most likely cause of her chest pain. No respiratory distress. On room air. --11/30 CXR shows pneumo no longer visible. 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 food related vs GVHD; pt cutting back on snacking today; on GVHD diet (GI soft/fiber controlled). --stool [id number] 07/05 (down from 2500ml 07/04). Some blood in stool overnight 07/05; platelets transfused. No blood noted afterward. --increased stool 1725ml 07/06. No colonoscopy; continue to hold off on ECP; 07/09-stool output decreasing; monitor documented as of this encounter (statuses as of 12/01/2023) [facility]07-06-2023 History of Past illness Narrative* Problem Noted Date Diagnosed Date Resolved Date Small bowel obstruction 03/25/2023 07/0 03/2023 Other emphysema 03/15/2023 12/20/2023 Shortness of breath 10/14/2020 06/19/20 22 Parastomal hernia 05/29/2020 06/04/2020 Last Assessment & Plan: Assessment: s/p 05/29 parastomal hernia repair with TAR PLAN: -continue postoperative care Colostomy status 09/18/2018 06/03/2022 PEPE (acute kidney injury) 09/12/2018 Overview: Last Assessment & Plan: SCr normalized to 1.02 today, SCr 3.2 on admission at OSH. Baseline 0.8-1.0. Likely 2/2 dehydration from vomiting and hyperCa. Continue MIVF as discussed elsewhere. Last Assessment & Plan: SCr normalized to 1.02 today, SCr 3.2 on admission at OSH. Baseline 0.8-1.0. Likely 2/2 dehydration from vomiting and hyperCa. Continue MIVF as discussed elsewhere. Stage 3 chronic kidney disease 05/13/2018 06/03/2022 Dehydration 05/13/2018 06/03/2022 Itching 01/11/2018 02/18/2018 Insomnia 01/11/2018 09/18/2018 Abnormal echocardiogram 06/03/201708/20 SBO (small bowel obstruction) 01/25/2017 06/05/2017 Abdominal pain 01/25/2017 01/25/2017 Overview: --01/24 Outside ER admit for 10 abd pain, decreased Colostomy output. CT 01/24/17 with new hernia in RLQ. --01/25 Pt states no abd pain/craming and pain 0/10, +stool output and tolerating liquids and solids. Plan for General Surg f/u outpatient for h/o SBO. 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 may need to increase FK and/or start low dose steroids Bronchopneumonia due to gallito n metapneumovirus (hMPV) 01/14/2017 01/29/2017 Overview: -- presented as fever, cough, sinus NULL. -- RVP was (+) for Human metapneumovirus --CXR ? basilar atalectasis v pneumonia; --CT sinus acute sinusitis - u/a C&S neg - had persistent fevers and received 2 days of zosyn (01/16-01/17); -- zosyn was dc'd with all cultures being neg and she remained afebrile -- developed hypoxia with a positive desat study -- DC'd Home with O2 f/u 01/20/[address] Ttayana KIM (right bundle branch block) 09/24/2016 05/18/2018 Abnormality of gait 09/11/2016 01/22/20 Secondary adrenal insufficiency 09/07/2016 04/27/2018 Type 2 diabetes mellitus wit h microalbuminuria, without long-term current use of insulin 07/02/2016 02/10/2022 Physical deconditioning 10/01/201508/20 Overview: Per LDT 10/30/15 fci charges Diarrhea 09/11/2015 01/21/2017 Overview: --increased watery stool output through ostomy; 01/16: c-diff neg --start imodium BID Acute pulmonary embolism 08/06/2015 Overview: --Patient presented with pleuritic Chest Pain, Heparin gtt initiated until PE ruled out --Negative for PE CT with PE protocol. Heparin drip was discontinued. 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 --c/o blood in urine & dysuria. 2+ Hb on UA. Check BK urine. Empiric cipro started --07/08- symptoms improving --07/09: +BK (162,000) copies: continue cipro for tx. 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 Treated w ganciclovir. Plan: - continue acyclovir - monitor tac levels Dysmetabolic syndrome X 08/20 Obesity 09/08/2017 Overview: Obesity class III Body mass index is 32.09 kg/(m^2). 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 Treated with vori, then changed to posa d/t presumed resistance. Repeat CT chest 10/12/14 improved. 12/14/14 CT clear --ppx posa PFO (patent foramen ovale) 0 11/06/2016 Obstructive lung disease (generalized) 02/04/2016 Overview: --monitor. No h/o smoking. Not currently on any treatment at this time. Reduced FEV1 and DLCO. recent Pneumothorax on right 02/04/2016 Overview: --right sided chest pain that radiates to the scapula. Worse with deep breath. Scapula tender to palpation. -- CXR showedsmall right apical pneumothorax. EKG unremarkable. Cardiac enzymes negative. --Right apical pneumothorax most likely cause of her chest pain. No respiratory distress. On room air. --11/30 CXR shows pneumo no longer visible. 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 food related vs GVHD; pt cutting back on snacking today; on GVHD diet (GI soft/fiber controlled). --stool [id number] 07/05 (down from 2500ml 07/04). Some blood in stool overnight 07/05; platelets transfused. No blood noted afterward. --increased stool 1725ml 07/06. No colonoscopy; continue to hold off on ECP; 07/09-stool output decreasing; monitor documented as of this encounter (statuses as of 12/21/2023) [facility]07-06-2023 History of Past illness Narrative* Problem Noted Date Diagnosed Date Resolved Date Small bowel obstruction 03/25/2023 07/0 03/2023 Other emphysema 03/15/2023 12/20/2023 Shortness of breath 10/14/2020 06/19/20 22 Parastomal hernia 05/29/2020 06/04/2020 Last Assessment & Plan: Assessment: s/p 05/29 parastomal hernia repair with TAR PLAN: -continue postoperative care Colostomy status 09/18/2018 06/03/2022 PEPE (acute kidney injury) 09/12/2018 Overview: Last Assessment & Plan: SCr normalized to 1.02 today, SCr 3.2 on admission at OSH. Baseline 0.8-1.0. Likely 2/2 dehydration from vomiting and hyperCa. Continue MIVF as discussed elsewhere. Last Assessment & Plan: SCr normalized to 1.02 today, SCr 3.2 on admission at OSH. Baseline 0.8-1.0. Likely 2/2 dehydration from vomiting and hyperCa. Continue MIVF as discussed elsewhere. Stage 3 chronic kidney disease 05/13/2018 06/03/2022 Dehydration 05/13/2018 06/03/2022 Itching 01/11/2018 02/18/2018 Insomnia 01/11/2018 09/18/2018 Abnormal echocardiogram 06/03/201708/20 SBO (small bowel obstruction) 01/25/2017 06/05/2017 Abdominal pain 01/25/2017 01/25/2017 Overview: --01/24 Outside ER admit for 06/29 abd pain, decreased Colostomy output. CT 01/24/17 with new hernia in RLQ. --01/25 Pt states no abd pain/craming and pain 0/10, +stool output and tolerating liquids and solids. Plan for General Surg f/u outpatient for h/o SBO. 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 may need to increase FK and/or start low dose steroids Bronchopneumonia due to agllito n metapneumovirus (hMPV) 01/14/2017 01/29/2017 Overview: -- presented as fever, cough, sinus NULL. -- RVP was (+) for Human metapneumovirus --CXR ? basilar atalectasis v pneumonia; --CT sinus acute sinusitis - u/a C&S neg - had persistent fevers and received 2 days of zosyn (01/16-01/17); -- zosyn was dc'd with all cultures being neg and she remained afebrile -- developed hypoxia with a positive desat study -- DC'd Home with O2 f/u 01/20/[address] Tatyana THORNTONBB (right bundle branch block) 09/24/2016 05/18/2018 Abnormality of gait 09/11/2016 01/22/20 Secondary adrenal insufficiency 09/07/2016 04/27/2018 Type 2 diabetes mellitus wit h microalbuminuria, without long-term current use of insulin 07/02/2016 02/10/2022 Physical deconditioning 10/01/201508/20 Overview: Per LDT 10/30/15 fci charges Diarrhea 09/11/2015 01/21/2017 Overview: --increased watery stool output through ostomy; 01/16: c-diff neg --start imodium BID Acute pulmonary embolism 08/06/2015 Overview: --Patient presented with pleuritic Chest Pain, Heparin gtt initiated until PE ruled out --Negative for PE CT with PE protocol. Heparin drip was discontinued. 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 --c/o blood in urine & dysuria. 2+ Hb on UA. Check BK urine. Empiric cipro started --07/08- symptoms improving --07/09: +BK (162,000) copies: continue cipro for tx. 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 Treated w ganciclovir. Plan: - continue acyclovir - monitor tac levels Dysmetabolic syndrome X 08/20 Obesity 09/08/2017 Overview: Obesity class III Body mass index is 32.09 kg/(m^2). 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 Treated with vori, then changed to posa d/t presumed resistance. Repeat CT chest 10/12/14 improved. 12/14/14 CT clear --ppx posa PFO (patent foramen ovale) 0 11/06/2016 Obstructive lung disease (generalized) 02/04/2016 Overview: --monitor. No h/o smoking. Not currently on any treatment at this time. Reduced FEV1 and DLCO. recent Pneumothorax on right 02/04/2016 Overview: --right sided chest pain that radiates to the scapula. Worse with deep breath. Scapula tender to palpation. -- CXR showedsmall right apical pneumothorax. EKG unremarkable. Cardiac enzymes negative. --Right apical pneumothorax most likely cause of her chest pain. No respiratory distress. On room air. --11/30 CXR shows pneumo no longer visible. 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 food related vs GVHD; pt cutting back on snacking today; on GVHD diet (GI soft/fiber controlled). --stool [id number] 07/05 (down from 2500ml 07/04). Some blood in stool overnight 07/05; platelets transfused. No blood noted afterward. --increased stool 1725ml 07/06. No colonoscopy; continue to hold off on ECP; 07/09-stool output decreasing; monitor documented as of this encounter (statuses as of 12/20/2023) [facility]07-06-2023 History of Past illness Narrative* Problem Noted Date Diagnosed Date Resolved Date Small bowel obstruction 03/25/2023 07/0 03/2023 Other emphysema 03/15/2023 12/20/2023 Shortness of breath 10/14/2020 06/19/20 22 Parastomal hernia 05/29/2020 06/04/2020 Last Assessment & Plan: Assessment: s/p 05/29 parastomal hernia repair with TAR PLAN: -continue postoperative care Colostomy status 09/18/2018 06/03/2022 PEPE (acute kidney injury) 09/12/2018 Overview: Last Assessment & Plan: SCr normalized to 1.02 today, SCr 3.2 on admission at OSH. Baseline 0.8-1.0. Likely 2/2 dehydration from vomiting and hyperCa. Continue MIVF as discussed elsewhere. Last Assessment & Plan: SCr normalized to 1.02 today, SCr 3.2 on admission at OSH. Baseline 0.8-1.0. Likely 2/2 dehydration from vomiting and hyperCa. Continue MIVF as discussed elsewhere. Stage 3 chronic kidney disease 05/13/2018 06/03/2022 Dehydration 05/13/2018 06/03/2022 Itching 01/11/2018 02/18/2018 Insomnia 01/11/2018 09/18/2018 Abnormal echocardiogram 06/03/201708/20 SBO (small bowel obstruction) 01/25/2017 06/05/2017 Abdominal pain 01/25/2017 01/25/2017 Overview: --01/24 Outside ER admit for 06/29 abd pain, decreased Colostomy output. CT 01/24/17 with new hernia in RLQ. --5/8 Pt states no abd pain/craming and pain 0/10, +stool output and tolerating liquids and solids. Plan for General Surg f/u outpatient for h/o SBO. 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 may need to increase FK and/or start low dose steroids Bronchopneumonia due to gallito n metapneumovirus (hMPV) 01/14/2017 01/29/2017 Overview: -- presented as fever, cough, sinus NULL. -- RVP was (+) for Human metapneumovirus --CXR ? basilar atalectasis v pneumonia; --CT sinus acute sinusitis - u/a C&S neg - had persistent fevers and received 2 days of zosyn (01/16-01/17); -- zosyn was dc'd with all cultures being neg and she remained afebrile -- developed hypoxia with a positive desat study -- DC'd Home with O2 f/u 01/20/[address] Tatyana KIM (right bundle branch block) 09/24/2016 05/18/2018 Abnormality of gait 09/11/2016 01/22/20 Secondary adrenal insufficiency 09/07/2016 04/27/2018 Type 2 diabetes mellitus wit h microalbuminuria, without long-term current use of insulin 07/02/2016 02/10/2022 Physical deconditioning 10/01/201508/20 Overview: Per LDT 10/30/15 fci charges Diarrhea 09/11/2015 01/21/2017 Overview: --increased watery stool output through ostomy; 01/16: c-diff neg --start imodium BID Acute pulmonary embolism 08/06/2015 Overview: --Patient presented with pleuritic Chest Pain, Heparin gtt initiated until PE ruled out --Negative for PE CT with PE protocol. Heparin drip was discontinued. 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 --c/o blood in urine & dysuria. 2+ Hb on UA. Check BK urine. Empiric cipro started --07/08- symptoms improving --07/09: +BK (162,000) copies: continue cipro for tx. 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 Treated w ganciclovir. Plan: - continue acyclovir - monitor tac levels Dysmetabolic syndrome X 08/20 Obesity 09/08/2017 Overview: Obesity class III Body mass index is 32.09 kg/(m^2). 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 Treated with vori, then changed to posa d/t presumed resistance. Repeat CT chest 10/12/14 improved. 12/14/14 CT clear --ppx posa PFO (patent foramen ovale) 0 11/06/2016 Obstructive lung disease (generalized) 02/04/2016 Overview: --monitor. No h/o smoking. Not currently on any treatment at this time. Reduced FEV1 and DLCO. recent Pneumothorax on right 02/04/2016 Overview: --right sided chest pain that radiates to the scapula. Worse with deep breath. Scapula tender to palpation. -- CXR showedsmall right apical pneumothorax. EKG unremarkable. Cardiac enzymes negative. --Right apical pneumothorax most likely cause of her chest pain. No respiratory distress. On room air. --11/30 CXR shows pneumo no longer visible. 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 food related vs GVHD; pt cutting back on snacking today; on GVHD diet (GI soft/fiber controlled). --stool [id number] 07/05 (down from 2500ml 07/04). Some blood in stool overnight 07/05; platelets transfused. No blood noted afterward. --increased stool 1725ml 07/06. No colonoscopy; continue to hold off on ECP; 07/09-stool output decreasing; monitor documented as of this encounter (statuses as of 12/21/2023) [facility]07-06-2023 History of Past illness Narrative* Problem Noted Date Diagnosed Date Resolved Date Small bowel obstruction 03/25/2023 07/0 03/2023 Other emphysema 03/15/2023 12/20/2023 Shortness of breath 10/14/2020 06/19/20 22 Parastomal hernia 05/29/2020 06/04/2020 Last Assessment & Plan: Assessment: s/p 05/29 parastomal hernia repair with TAR PLAN: -continue postoperative care Colostomy status 09/18/2018 06/03/2022 PEPE (acute kidney injury) 09/12/2018 Overview: Last Assessment & Plan: SCr normalized to 1.02 today, SCr 3.2 on admission at OSH. Baseline 0.8-1.0. Likely 2/2 dehydration from vomiting and hyperCa. Continue MIVF as discussed elsewhere. Last Assessment & Plan: SCr normalized to 1.02 today, SCr 3.2 on admission at OSH. Baseline 0.8-1.0. Likely 2/2 dehydration from vomiting and hyperCa. Continue MIVF as discussed elsewhere. Stage 3 chronic kidney disease 05/13/2018 06/03/2022 Dehydration 05/13/2018 06/03/2022 Itching 01/11/2018 02/18/2018 Insomnia 01/11/2018 09/18/2018 Abnormal echocardiogram 06/03/201708/20 SBO (small bowel obstruction) 01/25/2017 06/05/2017 Abdominal pain 01/25/2017 01/25/2017 Overview: --5 Outside ER admit for 10/10 abd pain, decreased Colostomy output. CT 01/24/17 with new hernia in RLQ. --58 Pt states no abd pain/craming and pain 0/10, +stool output and tolerating liquids and solids. Plan for General Surg f/u outpatient for h/o SBO. 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 may need to increase FK and/or start low dose steroids Bronchopneumonia due to gallito n metapneumovirus (hMPV) 01/14/2017 01/29/2017 Overview: -- presented as fever, cough, sinus NULL. -- RVP was (+) for Human metapneumovirus --CXR ? basilar atalectasis v pneumonia; --CT sinus acute sinusitis - u/a C&S neg - had persistent fevers and received 2 days of zosyn (01/16-01/17); -- zosyn was dc'd with all cultures being neg and she remained afebrile -- developed hypoxia with a positive desat study -- DC'd Home with O2 f/u 01/20/[address] Tatyana KIM (right bundle branch block) 09/24/2016 05/18/2018 Abnormality of gait 09/11/2016 01/22/20 17 Secondary adrenal insufficiency 09/07/2016 04/27/2018 Type 2 diabetes mellitus wit h microalbuminuria, without long-term current use of insulin (HCC) 07/02/2016 02/10/2022 Physical deconditioning 10/01/201508/20 Overview: Per LDT 10/30/15 fci charges Diarrhea 09/11/2015 01/21/2017 Overview: --increased watery stool output through ostomy; 01/16: c-diff neg --start imodium BID Acute pulmonary embolism 08/06/2015 Overview: --Patient presented with pleuritic Chest Pain, Heparin gtt initiated until PE ruled out --Negative for PE CT with PE protocol. Heparin drip was discontinued. 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 --c/o blood in urine & dysuria. 2+ Hb on UA. Check BK urine. Empiric cipro started --07/08- symptoms improving --07/09: +BK (162,000) copies: continue cipro for tx. 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 Treated w ganciclovir. Plan: - continue acyclovir - monitor tac levels Dysmetabolic syndrome X 08/20 Obesity 09/08/2017 Overview: Obesity class III Body mass index is 32.09 kg/(m^2). 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 Treated with vori, then changed to posa d/t presumed resistance. Repeat CT chest 10/12/14 improved. 12/14/14 CT clear --ppx posa PFO (patent foramen ovale) 0 11/06/2016 Obstructive lung disease (generalized) 02/04/2016 Overview: --monitor. No h/o smoking. Not currently on any treatment at this time. Reduced FEV1 and DLCO. recent Pneumothorax on right 02/04/2016 Overview: --right sided chest pain that radiates to the scapula. Worse with deep breath. Scapula tender to palpation. -- CXR showedsmall right apical pneumothorax. EKG unremarkable. Cardiac enzymes negative. --Right apical pneumothorax most likely cause of her chest pain. No respiratory distress. On room air. --11/30 CXR shows pneumo no longer visible. 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 food related vs GVHD; pt cutting back on snacking today; on GVHD diet (GI soft/fiber controlled). --stool [id number] 07/05 (down from 2500ml 07/04). Some blood in stool overnight 07/05; platelets transfused. No blood noted afterward. --increased stool 1725ml 07/06. No colonoscopy; continue to hold off on ECP; 07/09-stool output decreasing; monitor documented as of this encounter (statuses as of 12/22/2023) [facility]07-06-2023 History of Past illness Narrative* Problem Noted Date Diagnosed Date Resolved Date Small bowel obstruction 03/25/2023 07/0 03/2023 Other emphysema 03/15/2023 12/20/2023 Shortness of breath 10/14/2020 06/19/20 22 Parastomal hernia 05/29/2020 06/04/2020 Last Assessment & Plan: Assessment: s/p 05/29 parastomal hernia repair with TAR PLAN: -continue postoperative care Colostomy status 09/18/2018 06/03/2022 PEPE (acute kidney injury) 09/12/2018 Overview: Last Assessment & Plan: SCr normalized to 1.02 today, SCr 3.2 on admission at OSH. Baseline 0.8-1.0. Likely 2/2 dehydration from vomiting and hyperCa. Continue MIVF as discussed elsewhere. Last Assessment & Plan: SCr normalized to 1.02 today, SCr 3.2 on admission at OSH. Baseline 0.8-1.0. Likely 2/2 dehydration from vomiting and hyperCa. Continue MIVF as discussed elsewhere. Stage 3 chronic kidney disease 05/13/2018 06/03/2022 Dehydration 05/13/2018 06/03/2022 Itching 01/11/2018 02/18/2018 Insomnia 01/11/2018 09/18/2018 Abnormal echocardiogram 06/03/201708/20 SBO (small bowel obstruction) 01/25/2017 06/05/2017 Abdominal pain 01/25/2017 01/25/2017 Overview: --01/24 Outside ER admit for 06/29 abd pain, decreased Colostomy output. CT 01/24/17 with new hernia in RLQ. --01/25 Pt states no abd pain/craming and pain 0/10, +stool output and tolerating liquids and solids. Plan for General Surg f/u outpatient for h/o SBO. 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 may need to increase FK and/or start low dose steroids Bronchopneumonia due to gallito n metapneumovirus (hMPV) 01/14/2017 01/29/2017 Overview: -- presented as fever, cough, sinus NULL. -- RVP was (+) for Human metapneumovirus --CXR ? basilar atalectasis v pneumonia; --CT sinus acute sinusitis - u/a C&S neg - had persistent fevers and received 2 days of zosyn (01/16-01/17); -- zosyn was dc'd with all cultures being neg and she remained afebrile -- developed hypoxia with a positive desat study -- DC'd Home with O2 f/u 01/20/[address] Tatyana KIM (right bundle branch block) 09/24/2016 05/18/2018 Abnormality of gait 09/11/2016 01/22/20 Secondary adrenal insufficiency 09/07/2016 04/27/2018 Type 2 diabetes mellitus wit h microalbuminuria, without long-term current use of insulin 07/02/2016 02/10/2022 Physical deconditioning 10/01/201508/20 Overview: Per LDT 10/30/15 fci charges Diarrhea 09/11/2015 01/21/2017 Overview: --increased watery stool output through ostomy; 01/16: c-diff neg --start imodium BID Acute pulmonary embolism 08/06/2015 Overview: --Patient presented with pleuritic Chest Pain, Heparin gtt initiated until PE ruled out --Negative for PE CT with PE protocol. Heparin drip was discontinued. 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 --c/o blood in urine & dysuria. 2+ Hb on UA. Check BK urine. Empiric cipro started --07/08- symptoms improving --07/09: +BK (162,000) copies: continue cipro for tx. 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 Treated w ganciclovir. Plan: - continue acyclovir - monitor tac levels Dysmetabolic syndrome X 08/20 Obesity 09/08/2017 Overview: Obesity class III Body mass index is 32.09 kg/(m^2). 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 Treated with vori, then changed to posa d/t presumed resistance. Repeat CT chest 10/12/14 improved. 12/14/14 CT clear --ppx posa PFO (patent foramen ovale) 0 11/06/2016 Obstructive lung disease (generalized) 02/04/2016 Overview: --monitor. No h/o smoking. Not currently on any treatment at this time. Reduced FEV1 and DLCO. recent Pneumothorax on right 02/04/2016 Overview: --right sided chest pain that radiates to the scapula. Worse with deep breath. Scapula tender to palpation. -- CXR showedsmall right apical pneumothorax. EKG unremarkable. Cardiac enzymes negative. --Right apical pneumothorax most likely cause of her chest pain. No respiratory distress. On room air. --11/30 CXR shows pneumo no longer visible. 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 food related vs GVHD; pt cutting back on snacking today; on GVHD diet (GI soft/fiber controlled). --stool [id number] 07/05 (down from 2500ml 07/04). Some blood in stool overnight 07/05; platelets transfused. No blood noted afterward. --increased stool 1725ml 07/06. No colonoscopy; continue to hold off on ECP; 07/09-stool output decreasing; monitor documented as of this encounter (statuses as of 01/04/2024) [facility]07-06-2023 History of Past illness Narrative* Problem Noted Date Diagnosed Date Resolved Date Small bowel obstruction 03/25/2023 07/0 03/2023 Other emphysema 03/15/2023 12/20/2023 Shortness of breath 10/14/2020 06/19/20 22 Parastomal hernia 05/29/2020 06/04/2020 Last Assessment & Plan: Assessment: s/p 05/29 parastomal hernia repair with TAR PLAN: -continue postoperative care Colostomy status 09/18/2018 06/03/2022 PEPE (acute kidney injury) 09/12/2018 Overview: Last Assessment & Plan: SCr normalized to 1.02 today, SCr 3.2 on admission at OSH. Baseline 0.8-1.0. Likely 2/2 dehydration from vomiting and hyperCa. Continue MIVF as discussed elsewhere. Last Assessment & Plan: SCr normalized to 1.02 today, SCr 3.2 on admission at OSH. Baseline 0.8-1.0. Likely 2/2 dehydration from vomiting and hyperCa. Continue MIVF as discussed elsewhere. Stage 3 chronic kidney disease 05/13/2018 06/03/2022 Dehydration 05/13/2018 06/03/2022 Itching 01/11/2018 02/18/2018 Insomnia 01/11/2018 09/18/2018 Abnormal echocardiogram 06/03/201708/20 SBO (small bowel obstruction) 01/25/2017 06/05/2017 Abdominal pain 01/25/2017 01/25/2017 Overview: --01/24 Outside ER admit for 10/10 abd pain, decreased Colostomy output. CT 01/24/17 with new hernia in RLQ. --01/25 Pt states no abd pain/craming and pain 0/10, +stool output and tolerating liquids and solids. Plan for General Surg f/u outpatient for h/o SBO. 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 may need to increase FK and/or start low dose steroids Bronchopneumonia due to gallito n metapneumovirus (hMPV) 01/14/2017 01/29/2017 Overview: -- presented as fever, cough, sinus NULL. -- RVP was (+) for Human metapneumovirus --CXR ? basilar atalectasis v pneumonia; --CT sinus acute sinusitis - u/a C&S neg - had persistent fevers and received 2 days of zosyn (01/16-01/17); -- zosyn was dc'd with all cultures being neg and she remained afebrile -- developed hypoxia with a positive desat study -- DC'd Home with O2 f/u 01/20/[address] Tatyana THORNTONBB (right bundle branch block) 09/24/2016 05/18/2018 Abnormality of gait 09/11/2016 01/22/20 Secondary adrenal insufficiency 09/07/2016 04/27/2018 Type 2 diabetes mellitus wit h microalbuminuria, without long-term current use of insulin 07/02/2016 02/10/2022 Physical deconditioning 10/01/201508/20 Overview: Per LDT 10/30/15 fci charges Diarrhea 09/11/2015 01/21/2017 Overview: --increased watery stool output through ostomy; 01/16: c-diff neg --start imodium BID Acute pulmonary embolism 08/06/2015 Overview: --Patient presented with pleuritic Chest Pain, Heparin gtt initiated until PE ruled out --Negative for PE CT with PE protocol. Heparin drip was discontinued. 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 --c/o blood in urine & dysuria. 2+ Hb on UA. Check BK urine. Empiric cipro started --07/08- symptoms improving --07/09: +BK (162,000) copies: continue cipro for tx. 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 Treated w ganciclovir. Plan: - continue acyclovir - monitor tac levels Dysmetabolic syndrome X 08/20 Obesity 09/08/2017 Overview: Obesity class III Body mass index is 32.09 kg/(m^2). 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 Treated with vori, then changed to posa d/t presumed resistance. Repeat CT chest 10/12/14 improved. 12/14/14 CT clear --ppx posa PFO (patent foramen ovale) 0 11/06/2016 Obstructive lung disease (generalized) 02/04/2016 Overview: --monitor. No h/o smoking. Not currently on any treatment at this time. Reduced FEV1 and DLCO. recent Pneumothorax on right 02/04/2016 Overview: --right sided chest pain that radiates to the scapula. Worse with deep breath. Scapula tender to palpation. -- CXR showedsmall right apical pneumothorax. EKG unremarkable. Cardiac enzymes negative. --Right apical pneumothorax most likely cause of her chest pain. No respiratory distress. On room air. --11/30 CXR shows pneumo no longer visible. 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 food related vs GVHD; pt cutting back on snacking today; on GVHD diet (GI soft/fiber controlled). --stool [id number] 07/05 (down from 2500ml 07/04). Some blood in stool overnight 07/05; platelets transfused. No blood noted afterward. --increased stool 1725ml 07/06. No colonoscopy; continue to hold off on ECP; 07/09-stool output decreasing; monitor documented as of this encounter (statuses as of 01/05/2024) [facility]07-06-2023 History of Past illness Narrative* Problem Noted Date Diagnosed Date Resolved Date Small bowel obstruction 03/25/2023 07/0 03/2023 Shortness of breath 10/14/2020 06/19/20 22 Parastomal hernia 05/29/2020 06/04/2020 Last Assessment & Plan: Assessment: s/p 05/29 parastomal hernia repair with TAR PLAN: -continue postoperative care Colostomy status 09/18/2018 06/03/2022 PEPE (acute kidney injury) 09/12/2018 Overview: Last Assessment & Plan: SCr normalized to 1.02 today, SCr 3.2 on admission at OSH. Baseline 0.8-1.0. Likely 2/2 dehydration from vomiting and hyperCa. Continue MIVF as discussed elsewhere. Last Assessment & Plan: SCr normalized to 1.02 today, SCr 3.2 on admission at OSH. Baseline 0.8-1.0. Likely 2/2 dehydration from vomiting and hyperCa. Continue MIVF as discussed elsewhere. Stage 3 chronic kidney disease 05/13/2018 06/03/2022 Dehydration 05/13/2018 06/03/2022 Itching 01/11/2018 02/18/2018 Insomnia 01/11/2018 09/18/2018 Abnormal echocardiogram 06/03/201708/20 SBO (small bowel obstruction) 01/25/2017 06/05/2017 Abdominal pain 01/25/2017 01/25/2017 Overview: --01/24 Outside ER admit for 10/10 abd pain, decreased Colostomy output. CT 01/24/17 with new hernia in RLQ. --58 Pt states no abd pain/craming and pain 0/10, +stool output and tolerating liquids and solids. Plan for General Surg f/u outpatient for h/o SBO. 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 may need to increase FK and/or start low dose steroids Bronchopneumonia due to gallito n metapneumovirus (hMPV) 01/14/2017 01/29/2017 Overview: -- presented as fever, cough, sinus NULL. -- RVP was (+) for Human metapneumovirus --CXR ? basilar atalectasis v pneumonia; --CT sinus acute sinusitis - u/a C&S neg - had persistent fevers and received 2 days of zosyn (01/16-01/17); -- zosyn was dc'd with all cultures being neg and she remained afebrile -- developed hypoxia with a positive desat study -- DC'd Home with O2 f/u 01/20/[address] Tatyana KIM (right bundle branch block) 09/24/2016 05/18/2018 Abnormality of gait 09/11/2016 01/22/20 Secondary adrenal insufficiency 09/07/2016 04/27/2018 Type 2 diabetes mellitus wit h microalbuminuria, without long-term current use of insulin (HCC) 07/02/2016 02/10/2022 Physical deconditioning 10/01/201508/20 Overview: Per LDT 10/30/15 fci charges Diarrhea 09/11/2015 01/21/2017 Overview: --increased watery stool output through ostomy; 01/16: c-diff neg --start imodium BID Acute pulmonary embolism 08/06/2015 Overview: --Patient presented with pleuritic Chest Pain, Heparin gtt initiated until PE ruled out --Negative for PE CT with PE protocol. Heparin drip was discontinued. 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 --c/o blood in urine & dysuria. 2+ Hb on UA. Check BK urine. Empiric cipro started --07/08- symptoms improving --07/09: +BK (162,000) copies: continue cipro for tx. 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 Treated w ganciclovir. Plan: - continue acyclovir - monitor tac levels Dysmetabolic syndrome X 08/20 Obesity 09/08/2017 Overview: Obesity class III Body mass index is 32.09 kg/(m^2). 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 Treated with vori, then changed to posa d/t presumed resistance. Repeat CT chest 10/12/14 improved. 12/14/14 CT clear --ppx posa PFO (patent foramen ovale) 0 11/06/2016 Obstructive lung disease (generalized) 02/04/2016 Overview: --monitor. No h/o smoking. Not currently on any treatment at this time. Reduced FEV1 and DLCO. recent Pneumothorax on right 02/04/2016 Overview: --right sided chest pain that radiates to the scapula. Worse with deep breath. Scapula tender to palpation. -- CXR showedsmall right apical pneumothorax. EKG unremarkable. Cardiac enzymes negative. --Right apical pneumothorax most likely cause of her chest pain. No respiratory distress. On room air. --11/30 CXR shows pneumo no longer visible. 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 food related vs GVHD; pt cutting back on snacking today; on GVHD diet (GI soft/fiber controlled). --stool [id number] 07/05 (down from 2500ml 07/04). Some blood in stool overnight 07/05; platelets transfused. No blood noted afterward. --increased stool 1725ml 07/06. No colonoscopy; continue to hold off on ECP; 07/09-stool output decreasing; monitor documented as of this encounter (statuses as of 11/01/2023) [facility]07-06-2023 Discharge summary Author Kwabena Sin [facility] March 25, 2023 5:13am Note Date/Time March 25, 2023 12:59 am [facility] Medical Records Department [address] [place] [address] Emergency Department Summary 03/25/23 MR#: [id number] Acct: [id number] Name: CONG SMITH Rep #:[id number] : 1950 73 From: Kwabena Sin DO PCP: Dr. Lidia Lopez MD Status:RE G ER Location: ED HPI HPI - GI History of Present Illness Chief Complaint: Abd Pain Narrative Narrative: 73-year-old female presenting with abdominal pain for about 3 hours. Patient states she has a history of total colectomy status post uygzr-yktjpp-vbhy disease. Her surgeon was at [facility]. Patient states he isconcerned she had an obstruction in the past and she might have 1 now. She has not had any fevers. She is nauseous without vomiting. She had a little bit of stool output into her ostomy bag. [facility] Medical History AML (acute myeloid leukemia) in remission (~01/12/22) Atrial fibrillation with RVR Essential hypertension GERD (gastroesophageal reflux disease) Attyd-eysbnz-xajy disease High output ileostomy History of DVT (deep vein thrombosis) (~10/2015) History of syncope Hypokalemia Hypophosphatemia Hypothyroidism Ileostomy in place Leukemia Right bundle branch block Small bowel obstruction Home Medications magnesium oxide 400 mg (241.3 mg magnesium) tablet 200 mg PO BID supplement 09/08/15 [History Last Taken 08/23/22] L.acidoph, paracasei,B. lactis 10 billion cell capsule 1 ea PO QHS probiotic 05/06/19 [History Last Taken 08/22/22] esomeprazole magnesium 40 mg capsule,delayed release 40 mg PO DAILY GERD 05/06/19 [History Last Taken 08/23/22] metoprolol tartrate 25 mg tablet 25 mg PO BID htn 01/08/22 [History Last Taken 08/23/22] apixaban 5 mg tablet 5 mg PO BID blood thinner 08/23/22 [History Last Taken 08/23/22] cholecalciferol (vitamin D3) 50 mcg (2,000 unit) tablet 50 mcg PO DAILY supplement 08/23/22 [History Last Taken 08/23/22] levothyroxine 100 mcg tablet 112 mcg PO DAILY thyroid 08/23/22 [History Last Taken 08/23/22] prednisone 10 mg tablet 10 mg PO DAILY #52 tabs 08/24/22 [Rx Last Taken Unknown] flaxseed oil 1,000 mg capsule 1,000 mg PO DAILY 03/25/23 [History Last Taken Unknown] Allergy/AdvReac Type Severity Reaction Status Date / Time Gadolinium-MRI Contrast Allergy Hives Verified 03/24/23 23:39 Medium [CONTRAST] Iodinated Contrast Media Allergy Hives Verified 03/24/23 23:39 [Iodinated Contrast Media - IV Dye] iodine Allergy Hives Verified 03/24/23 23:39 teriparatide [From Forteo] AdvReac Unknown Other Verified 03/24/23 23:39 Family History Mother Diabetes Heart disease Father Cancer Liver CA, age 84. Alcoholism Surgical History Bone marrow transplant status H/O ileostomy History of bone marrow transplant History of total colectomy Social History household members: spouse Smoking Status: Never smoker alcohol intake: never substance use type: does not use ROS ROS ED Constitutional Constitutional ED: Denies chills or fever(s) ENT ENT ED: Denies sore throat Cardiovascular Cardiovascular: Denies chest pain or palpitations Respiratory/Chest Respiratory/Chest: Denies cough or dyspnea Gastrointestinal Gastrointestinal: Reports abdominal pain and nausea Genitourinary Genitourinary ED: Denies dysuria or hematuria Musculoskeletal Musculoskeletal: Denies arthralgias or back pain Integumentary Denies abscess Neurologic Neurologic: Denies headache(s) or paresthesias Psychiatric Psychiatric: Denies anxiety or depression EXAM Physical Exam Const Vital Signs: 03/24/23 23:36 03/25/23 02:55 03/25/23 04:55 Temperature 97.6 F L 98.0 F Temperature Source Temporal Pulse Rate 110 H 79 81 Respiratory Rate 18 16 18 Blood Pressure 156/66 H 142/70 H 138/65 H Blood Pressure Mean 96 94 89 Pulse Ox 98 97 98 Oxygen Delivery Method Room Air Room Air Positive well nourished and obese General Appearance ED: NAD; Negative for pallor Nutritional Appearance: obese HEENT Reports moist mucous membranes Eyes PERRL and EOMs intact bilaterally Resp normal respiratory effort Effort and Inspection: Negative for respiratory distress Cardio regular rate Rate: tachycardic GI GI Narrative: Diffuse tenderness to palpation. Abdomen somewhat distended. High-pitched bowel sounds are present Back/Spine no CVA tenderness Neuro CN's II-XII intact bilaterally Sensorium / Orientation: alert Psych mental status grossly normal Skin no wounds General Skin Exam: Negative for jaundice or pallor MDM MDM MDM Narrative Medical decision making narrative: Patient presenting with acute onset abdominal pain. She is concern for obstruction. Her exam is consistent with this with the distention and high-pitched bowel sounds. Patient given morphine and Zofran. She is premedicated for CT scan with Solu- Medrol and Benadryl. CBC to assess white blood cell count, hemoglobin, platelets, differential. CMP to assess liver function, renalfunction, glucose, electrolytes. Urinalysis to assess for UTI. Patient given the lower normal saline. CT of the abdomen pelvis with IV contrast will be obtained CBC shows a mild leukocytosis 11.6. Hemoglobin stable at 13.7. No significant left shift. Renal function is normal. Electrolytes unremarkable. LFTs within normal limits. Glucose 118 without anion gap. Urinalysis negative for infection. After receiving 1 dose of morphine and Zofran she has not had any more pain or nausea. She noted that she did have some output in her ostomy. The CT of the abdomen pelvis shows a small bowel obstruction with a transition point the left lower quadrant. The radiologist interprets this as inflammatory versus infectious versus developing stricture. Discussed with Dr. Saba he is on-call for general surgery who recommended transfer given her extensive surgical history. I spoke with [facility] and Dr. Valdez was excepting of the patient. Patient counseled on all findings. She is refusing an NG tube even though Dr. Saba felt that she should have this. Dr. Valdez did not feel compelled to make her have this. At this point patient did sign transfer papers and will be transferred when a bed becomes available. Eventually the patient did let us try to put an NG tube in. She did not tolerate this very well and at this point told us not to try anymore. Patient has a bed at this point and is stable for transfer. She has not had any increase in abdominal pain. Impression 1. Small bowel obstruction Lab Data Labs: Laboratory Results - last 24 hr 03/25/23 03/25/23 00:17 01:50 WBC 11.6 H RBC 4.18 L Hgb 13.7 Hct 41.6 MCV 99.5 H MCH 32.8 H MCHC 32.9 RDW Std Deviation 53.0 H RDW Coeff of [place] 14.4 Plt Count 234 MPV 10.3 Immature Gran % (Auto) 0.300 Neut % (Auto) 41.3 L Lymph % (Auto) 47.2 H [place] % (Auto) 9.4 Eos % (Auto) 1.3 Baso % (Auto) 0.5 Absolute Neuts (auto) 4.8 Absolute Lymphs (auto) 5.49 H Nucleated RBC % 0 Differential Comment SCANNED Sodium 136 Potassium 3.8 Chloride 105 Carbon Dioxide 23.0 Anion Gap 8 BUN 35 H Creatinine 0.98 Estim Creat Clear Calc 60.13 Est GFR (MDRD) Af Amer 71 Est GFR (MDRD) Non-Af 59 L BUN/Creatinine Ratio 35.5 H Glucose 118 H Calcium 8.4 L Total Bilirubin 0.40 AST 23 ALT 33 Alkaline Phosphatase 114 Total Protein 6.9 Albumin 3.3 Globulin 3.6 Albumin/Globulin Ratio 0.9 Lipase 30 Urine Color Yellow Urine Clarity Clear Urine pH 6.0 Ur Specific [place] 1.010 Urine Protein Negative Urine Glucose (UA) Normal Urine Ketones Negative Urine Occult Blood 10 H Urine Nitrite Negative Urine Bilirubin Negative Urine Urobilinogen Normal Ur Leukocyte Esterase 100 H Urine RBC 0-5 SEEN Urine WBC 0-5 SEEN Ur Squamous Epith Cells 0 SEEN Urine Bacteria RARE Urine Mucus 0 SEEN Radiography Diagnostic Testing: Clinical Impression(s) from Imaging Studies Abdomen/Pelvis CT 03/24/23 23:53 IMPRESSION: 1. Small bowel obstruction with transition located within left lower quadrant. Small bowel thickening at transition could represent inflammatory versus infectious enteritis and/or developing inflammatory stricture. 2. Other chronic and nonurgent findings within body of report. Electronically Signed: Olayinka Lynch MD at 2:12 EDT , Discharge Plan Triage Chief Complaint: Abd Pain ED Provider: Kwabena Sin Dx/Rx/DC Orders Prescriptions: No Action magnesium oxide 400 MG tablet 200 mg PO BID esomeprazole magnesium 40 MG capsule,delayed release(DR/EC) 40 mg PO DAILY L.acidoph, paracasei,B. lactis 1 EACH capsule 1 ea PO QHS metoprolol tartrate 25 mg tablet 25 mg PO BID apixaban 5 mg Tablet 5 mg PO BID cholecalciferol (vitamin D3) 50 mcg (2,000 unit) Tablet 50 mcg PO DAILY levothyroxine 100 mcg tablet 112 mcg PO DAILY prednisone 10 mg tablet 10 mg PO DAILY Qty: 52 0RF Rx Instructions: 4 tablets daily for 5 days, 3 tablets daily for 5 days, then 2 tablets daily for 5 days, 1 tablet daily for 5 days, then half tablet daily for 4 days flaxseed oil 1,000 mg capsule 1,000 mg PO DAILY Primary Care Provider: Lidia Lopez Referrals: Lidia Lopez MD [Primary Care Provider] - What to do if you have Problems For any increased pain, shortness of breath, bleeding, nausea or vomiting, chestpain, or any unexpected problems, contact your Primary Care Provider. Call [facility] ([phone]) or report to the closest Emergency Room. Call 911 if necessary. 03/25/23512 <Electronically signed by Kwabena Sin DO> Cosigner Signature (if applicable): CC: Dr. Lidia Lopez MD ~ Signed [facility] Work Phone: [phone] 275-793607-05-2023 Miscellaneous Notes* Telephone Encounter - Kate Bustillo LPN - 03/24/2023 11:41 AM EDT Patient has been identified by name and date of : Yes Patient phones for refill(s): Requested Prescriptions Pending Prescriptions Disp Refills Cholecalciferol, Vitamin D3, 50 mcg (2,000 unit) cap 90 capsule 3 Sig: Take 1 capsule by mouth once daily. Date of last office visit in primary care: 01/06/23 Last 2 Encounter Wt Readings: Date: Wt: 03/15/2023 69.9 kg (154 lb) 03/03/2023 69.9 kg (154 lb) Previous labs/tests for medication: Not applicable Please advise. Thank you. Kate Bustillo LPN [facility] History of Present illness Narrative* Sy Matthews MD - 03/15/2023 2:01 PM EDT Images from the original note were not included. Sy Matthews MD Interventional Cardiology [address] [place] [address] [phone] Chief Complaint Patient presents with: Follow Up: TACHYCARDIA HISTORY OF PRESENT ILLNESS: Ms. Smith is a 73 year old female seen in my office today for assessment management of supraventricular tachycardia She is doing well from the cardiac point of view No further episodes of tachycardia since she started on beta-blockers History of bronchiectasis with abnormal pulmonary function test Her biggest concern is exertional dyspnea with physical activity Cardiac Risk Factors age (male over 45, female over 55), hypertension PAST MEDICAL HISTORY Diagnosis Date Abnormal echocardiogram 06/03/2017 Abnormality of gait 08/10/2016 Acute pulmonary embolism (HCC) 08/06/2015 --Patient presented with pleuritic Chest Pain, Heparin gtt initiated until PE ruled out --Negative for PE CT with PE protocol. Heparin drip was discontinued. PEPE (acute kidney injury) ([facility]) Non-oliguric renal failure. Creat increased to 1.6. Baseline sCr 0.6-1. --change fk to sirolimus. Resolved. 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 Dx 06/28/2014. -S/p induction with 7+3 + eltombopag (CASE 1493) course complicated by E.coli UTI and pulmonary nodule treated with posaconazole. -S/p 3 cycles of HiDAC, all courses complicated by neutropenic fevers and concern for worsening fungal pneumonia although this was not supported by cultures and bronchoscopy. 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 Treated w ganciclovir. 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 Lab draws: 11/28, 12/05, 12/12, 12/13, 4/8, /22, 5/6, /10 Grade GVHD: every Wednesday starting 12/05, and prior to discharge. Pseudophakia of both eyes RBBB (right bundle branch block) 10/01/2015 RUQ abdominal pain S/P bone marrow transplant ([facility]) 08/27/2015 AML. Per LDT fci charges 08/22/15 S/P partial colectomy 06/20/2015 --06/20/2015- ex lap, subtotal colectomy, and end ileostomy SBO (small bowel obstruction) ([facility]) 01/25/2017 Secondary adrenal insufficiency (HCC) 09/07/2016 Squamous cell carcinoma Left cheek Syncope Thrush 06/20/2022 Type 2 diabetes mellitus with microalbuminuria, without long-term current use of insulin (HCC) 07/02/2016 Unspecified hypothyroidism PAST SURGICAL HISTORY Procedure Laterality Date ANOSCOPY DX W/COLLJ SPEC BR/WA SPX WHEN PRFRMD 02/22/2020 ARTHRP ACETBLR/PROX FEM PROSTC AGRFT/ALGRFT Left 01/2019 BONE MARROW TRANSPLANT, ALLOGENEIC 11/28/2014 CATARACT EXTRACTION HX Right 08/2016 DELIVERY ONLY x2 , low cervical COLECTOMY TOTAL W/ILEOANAL ANASTMS 06/20/2015 Ileostomy due to resection for bowel perforation ESOPHAGOGASTRODUODENOSCOPY TRANSORAL DIAGNOSTIC 09/06/2018 EGD IR IVC FILTER PLACEMENT 11/21/2015 Celect [place] LAPS SURG CHOLECYSTECTOMY W/CHOLANGIOGRAPHY 11/05/09 PICC LINE INSERT/CONSULT 06/28/2014 PICC LINE INSERT/CONSULT 03/12/2015 REMOVE TONSILS AND ADENOIDS; AGE 12 OVER FAMILY HISTORY Problem Relation Age of Onset Cataract Father other (Cancer, liver) Father Liver cancer at 84 Diabetes Mother Osteoporosis Mother Cataract Mother other (chf) Mother other (dementia) Mother vascular Cataract Brother Thyroid Brother antibodies in thyroid Cataract Brother Thyroid Brother other (MTHFR) Brother and his children are positive as well No Ocular Disease Maternal Grandmother other (encelphalitis) Maternal Grandmother Heart Maternal Grandfather mi in his 70 No Ocular Disease Maternal Grandfather Alzheimer's Disease Paternal Grandmother No Ocular Disease Paternal Grandmother No Ocular Disease Paternal Grandfather Social History Tobacco Use Smoking status: Never Smokeless tobacco: Never Vaping Use Vaping Use: Never used Substance Use Topics Alcohol use: Not Currently Comment: Quit 2013, previously 1-2 drinks per year Drug use: Never ALLERGIES Allergen Reactions Fish Containing Pro* Unknown Forteo [Teriparatid* Other: See Comments Hypercalcemia 08/2018 Gadolinium-Containi* Hives Iodinated Contrast * Hives Iodine [Contrast Dy* Hives Hives, sneezing Omnipaque [Iohexol] Hives Sneezing, pruritis (ears), and hive. Medications: Current Outpatient Medications Medication Sig Dispense Refill cholestyramine (QUESTRAN) 4 gram packet Take 1 Packet by mouth three times daily with meals. 90 Packet 5 amoxicillin (AMOXIL) 500 mg capsule take 4 capsules by mouth 1 hour prior to dental appointment erythromycin (ROMYCIN) 5 mg/gram (0.5 %) ophthalmic ointment Use 1 application in both eyes twice daily. 10.5 g 3 lifitegrast (XIIDRA) 5 % ophthalmic drops Use 1 Drop in both eyes twice daily. 180 Each 3 levothyroxine (SYNTHROID) 112 mcg tablet Take 1 tablet by mouth once daily. Take on empty stomach. For Thyroid 90 tablet 3 fluorometholone (FML LIQUID FILM) 0.1 % ophthalmic suspension Use 1 Drop in the left eye twice daily. (Patient taking differently: Use 1 Drop in the left eye twice daily. Using sparingly PRN) 5 mL 1 apixaban (ELIQUIS) 5 mg tab(s) Take 1 tablet by mouth twice daily. 180 tablet 3 metoprolol tartrate, short acting, (LOPRESSOR) 25 mg tablet Take 1 tablet by mouth twice daily. 60 tablet 3 albuterol (PROVENTIL) 2.5 mg /3 mL (0.083 %) nebulizer solution Use 3 mL via nebulizer three times daily as needed for wheezing/shortness of breath. Inhale over 5-15 minutes 900 mL 3 mometasone (NASONEX) 50 mcg/actuation nasal spray Use 2 Sprays in the nose once daily. Rinse mouth after use. 17 g 3 esomeprazole (NEXIUM) 40 mg capsule Take 1 capsule by mouth once daily. 90 capsule 3 Cholecalciferol, Vitamin D3, 50 mcg (2,000 unit) cap Take 1 capsule by mouth once daily. 90 capsule3 lidocaine (XYLOCAINE) 5 % ointment Apply to affected area as needed (to urethral area). use a smallamount to affected area qid prn pain 30 g 1 cyanocobalamin/cobamamide (B12 SUBLINGUAL) Dissolve under the tongue. sodium chloride (NEBUSAL) 3 % nebulizer solution Use 4 mL via nebulizer twice daily. 1200 mL 3 estradiol (ESTRACE) 0.01 % (0.1 mg/gram) vaginal cream Use 0.5 g vaginally two times a week. 42.5 g3 albuterol HFA (PROAIR HFA) 90 mcg/actuation inhaler Inhale 2 Puffs as instructed every 4 hours as needed for wheezing/shortness of breath. 18 g 11 Nebulizer and Compressor For Neb 1 Each twice daily. 1 Each 1 Flaxseed Oil 1,000 mg cap Take 1,000 mg by mouth once daily. 0.9 % sodium chloride (0.9% NACL) NURSING USE ONLY: USED FOR IMPLANTED VASCULAR ACCESS DEVICE (IVAD) ACCESS. AMBULATORY/OUTPATIENT: PLEASE REORDER UPON HOSPITAL DISCHARGE May access implanted vascular access device (IVAD) as needed for treatment. Flush IVAD with 10-20 mL NS every 4 weeks and PRN when IVAD not in use. 1 Syringe 100 sodium chloride (PRATIMA 128) 5 % ophthalmic solution Use 1 Drop in both eyes as needed. MULTIVITAMIN ORAL Take 1 tablet by mouth once daily. ipratropium bromide (ATROVENT) 42 mcg (0.06 %) nasal spray Use 2 Sprays in the nose twice daily as needed. 1 Bottle 5 Lactobacillus acidophilus (PROBIOTIC ORAL) Take 1 capsule by mouth once daily. Magnesium Glycinate (MAG GLYCINATE) 100 mg tab Take 1 tablet by mouth twice daily. 60 tablet 5 Current Facility-Administered Medications Medication Dose Route Frequency Provider Last Rate Last Admin perflutren lipid microspheres 1.3 mL in NaCl (PF) 0.9% 10 mL injection (DEFINITY) INTRAVENOUS DIRECTED PRN Clare Baez, DO sodium chloride 0.9 % (flush) 10 mL (BD POSIFLUSH) 10 mL INTRAVENOUS DIRECTED PRN Clare Baez, DO Review of Systems Constitutional: Negative for chills, diaphoresis, fever, malaise/fatigue and weight loss. HENT: Negative for congestion, ear discharge, ear pain, hearing loss, nosebleeds, sinus pain, sore throat and tinnitus. Eyes: Negative for blurred vision, double vision, photophobia, pain, discharge and redness. Respiratory: Negative for cough, hemoptysis, sputum production, shortness of breath, wheezing and stridor. Cardiovascular: Negative for chest pain, palpitations, orthopnea, claudication, leg swelling and PND. Gastrointestinal: Negative for abdominal pain, blood in stool, constipation, diarrhea, heartburn, melena, nausea and vomiting. Genitourinary: Negative for dysuria, flank pain, frequency, hematuria and urgency. Musculoskeletal: Negative for back pain, falls, joint pain, myalgias and neck pain. Skin: Negative for itching and rash. Neurological: Negative for dizziness, tingling, tremors, sensory change, speech change, focal weakness, seizures, loss of consciousness, weakness and headaches. Endo/Heme/Allergies: Negative for environmental allergies and polydipsia. Does not bruise/bleed easily. Psychiatric/Behavioral: Negative for depression, hallucinations, memory loss, substance abuse and suicidal ideas. The patient is not nervous/anxious and does not have insomnia. Physical Examination: Vitals:BP 110/70 Pulse 80 Resp 16 Wt 154 lb (69.9kg) SpO2 95% BP w/Orthostatic Vitals Date and Time Orthostatic BP Orthostatic Pulse BP Pulse BP Position BP Site BP Cuff Size 03/15/23 1332 -- -- 110/70 80 Sitting Right Arm Large Adult Peak Flow Date and Time PF Resp 03/15/23 1332 -- 16 Last 2 Encounter Wt Readings: Date: Wt: 03/15/2023 69.9 kg (154 lb) 03/03/2023 69.9 kg (154 lb) Physical Exam Constitutional: General: She is not in acute distress. Appearance: She is not diaphoretic. HENT: Head: Normocephalic and atraumatic. Right Ear: External ear normal. Left Ear: External ear normal. Nose: Nose normal. Mouth/Throat: Pharynx: Oropharynx is clear. Eyes: General: Right eye: No discharge. Left eye: No discharge. Conjunctiva/sclera: Conjunctivae normal. Pupils: Pupils are equal, round, and reactive to light. Cardiovascular: Rate and Rhythm: Normal rate and regular rhythm. Heart sounds: Normal heart sounds, S1 normal and S2 normal. No murmur heard. No friction rub. No gallop. No S3 or S4 sounds. Pulmonary: Effort: Pulmonary effort is normal. No respiratory distress. Breath sounds: Normal breath sounds. No wheezing or rales. Chest: Chest wall: No tenderness. Musculoskeletal: General: Normal range of motion. Cervical back: Normal range of motion and neck supple. Skin: General: Skin is warm and dry. Neurological: Mental Status: She is alert and oriented to person, place, and time. Psychiatric: Mood and Affect: Mood normal. Thought Content: Thought content normal. Pertinent Labs: CBC: Hemoglobin (g/dL) Date Value 03/03/2023 14.8 09/25/2021 15.2 Hematocrit (%) Date Value 03/03/2023 44.0 09/25/2021 43.6 WBC (k/uL) Date Value 03/03/2023 11.04 09/25/2021 12.74 Platelet Count (k/uL) Date Value 03/03/2023 231 09/25/2021 265 BMP: Glucose (mg/dL) Date Value 03/03/2023 110 09/15/2021 109 Potassium (mmol/L) Date Value 03/03/2023 4.1 09/15/2021 4.1 Sodium (mmol/L) Date Value 03/03/2023 138 09/15/2021 135 Chloride (mmol/L) Date Value 03/03/2023 105 09/15/2021 102 CO2 (mmol/L) Date Value 03/03/2023 22 09/15/2021 19 Creatinine (mg/dL) Date Value 03/03/2023 0.91 09/15/2021 1.00 BUN (mg/dL) Date Value 03/03/2023 22 09/15/2021 32 Anion Gap (mmol/L) Date Value 03/03/2023 11 09/15/2021 14 Calcium (mg/dL) Date Value 09/15/2021 9.7 Calcium, Total (mg/dL) Date Value 03/03/2023 9.3 INR: Lipid Profile: Cholesterol, Total Date Value Ref Range Status 05/04/2022 155 <200 mg/dL Final Comment: <200 mg/dL, Desirable 200-239 mg/dL, Borderline high >239 mg/dL, High HDL Cholesterol Date Value Ref Range Status 05/04/2022 58 >39 mg/dL Final Comment: 40-59 mg/dL, Acceptable >59 mg/dL, High: Negative risk factor for coronary heart disease <40 mg/dL, Low: Positive risk factor for coronary heart disease LDL Cholesterol Date Value Ref Range Status 05/04/2022 68 <100 mg/dL Final Comment: <100 mg/dL, Optimal 100-129 mg/dL, Near optimal/above optimal 130-159 mg/dL, Borderline high 160-189 mg/dL, High >189 mg/dL, Very high Secondary prevention optimal LDL Cholesterol levels are recommended to be < 70 mg/dL Triglyceride Date Value Ref Range Status 05/04/2022 144 <150 mg/dL Final Comment: <150 mg/dL, Normal 150-199 mg/dL, Borderline high 200-499 mg/dL, High >499 mg/dL, Very high Hemoglobin A1C: No results found for: HGBA1C TSH: No results found for: TSHREFL Prior Cardiac Testing Echo Zio Assessment and Plan: 74 years old female patient with prior history of supraventricular tachycardia ASSESSMENT/PLAN: 1. SVT (supraventricular tachycardia) (HCC) - ICD9: 427.89, ICD10: I47.1 (primary diagnosis) Well-controlled on beta-neda 2. 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 Other emphysema (HCC) - ICD9: 492.8, ICD10: J43.8 Need evaluation and assessment further by pulmonary service Sy Matthews MD Follow up plannin months Electronically signed by Sy Matthews MD on March 15, 2023, 2:01 PM The above note was partially created using a dictation recognition software. A reasonable attempt has been made to correct any errors. documented in this encounterSumma Health [facility] History of Present illness Narrative* Rosalia Ross MA - 03/08/2023 12:06 PM EDT POPULATION HEALTH NAVIGATION OUTREACH Action/ [facility] Care Gaps 5.30.23 Discuss/Due for: Follow Up Six Month with Lidia Lopez MD Return in about 6 months (around 07/08/2023) for 6 months follow up Dilated Retinal Exam previously scheduled Outcome: 1st attempt - Spoke to patient Scheduled Follow Up with Lidia Lopez MD Patient Identified by Name and : YES, via phone Outreach Outcome/Action Spoke to patient / parent / legal guardian: Patient scheduled Did you use a PCP flex slot to schedule this appointment? N/A Reason for Outreach Care Gap or Scheduling/Wellness visits Payer: Payor: [employer] MEDICARE / Plan: [employer] MEDICARE PPO / Product Type: PPO / Care Gap Reviewed:: Annual Wellness visit Reminder: Reminder note to check Health Maintenance for items below Health Maintenance items due: DIABETIC FOOT EXAM due on 03/21/2022 ADVANCE DIRECTIVE DISCUSSION due on 09/20/2022 DILATED RETINAL EXAM due on 03/30/2023 Navigation Signature: Rosalia Ross MA March 08, 2023 12:06 PM documented in this encounterSumma Health Wad[facility]06-14-2023 History of Present illness Narrative* Tracie Mcduffie RN - 03/03/2023 12:16 PM EDT Study Number: [id number] Study Title: Collection of Blood & Bone Marrow from Normal Volunte[employer] & Patients for Research Purposes Consent expiration date: 12/09/2023 Spoke with patient at the request of Clare Baez D.O. Treatment plan, including all testing, potential risks/benefits, side effects and management, treatment alternatives, and follow-up explained. Roles of the clinical trial personnel to be involved and the financial responsibilities regarding procedures and medications were discussed. Discussed the importance of effective contraception during andfollowing completion of active therapy for NA. Initial questions were answered and a copy of the informed consent was given to patient with the instructions to read it and call with any additional questions. Contact information for the research nurse was given to the patient. The patient verbalizedappropriate understanding of all the aforementioned information presented. Time of Presentation: 11:30 AM March 03, 2023 Tracie Mcduffie RN Research Nurse [facility] [phone] documented in this encounterSumma Health W[facility]06-14-2023 History of Present illness Narrative* Jei Del Angel RN - 03/03/2023 9:00 AM EDT Patient is here for IVAD port flush/blood draw per [facility] protocol. IVAD is located in right upper chest. Site cleansed with Chloraprep IVAD accessed with a #20 gauge 3/4 non-coring Gripper needle Flush with 5cc's Normal Saline. Blood Return: Good. 10 cc's blood aspirated and discarded. Blood drawn for CBC, CMP, and Gold top. Flushed with: 20 ml Normal Saline and 5 ml Heparin Lock Flush. Non-coring needle removed. Paper tape applied to puncture site. Site negative for redness, edema or tenderness. Patient tolerated procedure well. documented in this encounterSumma Health Wad[facility]04-26-2023 Miscellaneous Notes* Telephone Encounter - JENNIFER Brannon - 01/13/2023 12:15 PM EDT Sw spoke with patient regarding covid home monitoring checklist that patient had marked. Patient notes that no, she does not need any Sw assistance. Patient notes that I must have mistakenly marked needing Sw assistance. Patient is aware if she has any further needs in future to let Sw know. * Telephone Encounter - JENNIFER Brannon - 01/08/2023 10:11 AM EDT Sw left 2nd message for patient to return Sw call to discuss social service needs. * Telephone Encounter - JENNIFER Brannon - 01/04/2023 8:40 AM EDT Jacob left message for patient to return SW call in regards to social service needs. Sw received referral from covid home monitoring program. Sw left direct number for patient to return call. documented in this encounterSumma Health W[facility]04-12-2023 Instructions* Patient Instructions* Sen Walton MD - 12/30/2022 9:04 AM EDT Eye lubricating ointment - use a night time. To apply, pull your lower lid down slightly and place a small amount between your eye and lower eyelid. It should feel sticky. These are available over the counter - they will be in the artificial tear section with names like night-time gel or PM. You can also use Pratima 128. documented in this encounterSumma Health Wad[facility]04-12-2023 History of Present illness Narrative* Sen Walton MD - 12/30/2022 9:02 AM EDT ASSESSMENT/PLAN: 1. 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 Dry eyes, bilateral - ICD9: 375.15, ICD10: H04.123 See 1 3. Recurrent erosion of right cornea - ICD9: 371.42, ICD10: H18.831 Abrasion ~1999, intermittent symptoms since Consider treatment once dryness is stabilized 4. Pseudophakia - ICD9: V43.1, ICD10: Z96.1 Lenses look good 2-3 months Sen Walton MD I have confirmed and edited as necessary the relevant ophthalmic history, ROS, and the neuro exam findings as obtained by others. I have seen and examined Cong Smith. I have discussed the case and the management of this patient's care with the Resident/Fellow, if applicable. I also have reviewed and agree with the assessment and plan as stated above and agree withall of its relevant components. Sen Walton MD documented in this encounterSumma Health W[facility]04-04-2023 Miscellaneous Notes* Telephone Encounter - Heena Alejandra NIRAV - 12/22/2022 8:46 AM EDT Patient is aware to check MyChart messages from Dr. Baez and Dr. Walton. Heena Alejandra LPN * Telephone Encounter - Heena Alejandra LPN - 12/21/2022 9:54 AM EDT Patient denies pain in eyes. C/O dry eyes and vision is completely blurry in left eye. Patient is currently using Tobradex 1 gtt OU BID and Xiidra 1 gtt OU BID. We were able to have patient seen sooner today at the [facility] but patient is not able to accept that appointment d/t an appointment conflict (dentist for broken tooth). Patient is asking if going back on sirolimus would help? I told patient I would also forward this note to Dr. Walton at [facility] in an effort to have her seen sooner. Heena Alejandra LPN documented in this encounterSumma Health Wad[facility]03-16-2023 History of Present illness Narrative* Chrissy Moser MD - 12/03/2022 2:15 PM EDT Images from the original note were not included. . Res[facility] Note Patient name: Cong Smith PCP: Lidia Lopez MD CC: Bronchiectasis HPI: Cong Smith 72 year old female non-smoker with PMH significant for AF, VTE on Eliquis and s/pIVC filter, AML s/p allogeneic BMT 2014, GVHD (GI tract, liver, oral mucosa, vaginal mucosa, conjunctivitis), GERD, HTN, ileostomy, DM2, hypothyroidism and bronchiectasis, chronic thrush. At [facility], patient was encouraged to be compliant with mucus clearance techniques, hypertonic saline and acapella.Has standing script for antibiotic. Plan for suppressive antibiotics if needed but would need sputum sample to r/o MAC. Since last office visit, she has been doing well. No significant shortness of breath, cough, sputum production, wheezing or chest pain. She has not been ill with any upper respiratory infection and has not required use of her antibiotic prescription. DATA: Labs: Recent CBC normal Imaging / Diagnostic Studies: Reviewed images of Abd/pelvic CT. Lower lung cuts show areas of linear atelectasis in left lung butno infiltrates PAST MEDICAL HISTORY Diagnosis Date Abnormal echocardiogram 06/03/2017 Abnormality of gait 08/10/2016 Acute pulmonary embolism (HCC) 08/06/2015 --Patient presented with pleuritic Chest Pain, Heparin gtt initiated until PE ruled out --Negative for PE CT with PE protocol. Heparin drip was discontinued. PEPE (acute kidney injury) ([facility]) Non-oliguric renal failure. Creat increased to 1.6. Baseline sCr 0.6-1. --change fk to sirolimus. Resolved. 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 Dx 06/28/2014. -S/p induction with 7+3 + eltombopag (CASE 1493) course complicated by E.coli UTI and pulmonary nodule treated with posaconazole. -S/p 3 cycles of HiDAC, all courses complicated by neutropenic fevers and concern for worsening fungal pneumonia although this was not supported by cultures and bronchoscopy. 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 Treated w ganciclovir. 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 Lab draws: 11/28, 12/05, 12/12, 12/13, 12/26, 01/09, 01/23, 02/2710 Grade GVHD: every Wednesday starting 12/05, and prior to discharge. Pseudophakia of both eyes RBBB (right bundle branch block) 10/01/2015 RUQ abdominal pain S/P bone marrow transplant ([facility]) 08/27/2015 AML. Per LDT [facility] charges 08/22/15 S/P partial colectomy 06/20/2015 --06/20/2015- ex lap, subtotal colectomy, and end ileostomy SBO (small bowel obstruction) ([facility]) 01/25/2017 Secondary adrenal insufficiency ([facility]) 09/07/2016 Squamous cell carcinoma Left cheek Syncope Thrush 06/20/2022 Type 2 diabetes mellitus with microalbuminuria, without long-term current use of insulin ([facility]) 07/02/2016 Unspecified hypothyroidism ALLERGIES Allergen Reactions Fish Containing Pro* Unknown Forteo [Teriparatid* Other: See Comments Hypercalcemia 08/2018 Gadolinium-Containi* Hives Iodinated Contrast * Hives Iodine [Contrast Dy* Hives Hives, sneezing Omnipaque [Iohexol] Hives Sneezing, pruritis (ears), and hive. albuterol (PROVENTIL) 2.5 mg /3 mL (0.083 %) nebulizer solution^Use 3 mL via nebulizer three times daily as needed for wheezing/shortness of breath. Inhale over 5-15 minutes^Disp: 900 mL^Rfl: 3 albuterol HFA (PROAIR HFA) 90 mcg/actuation inhaler^Inhale 2 Puffs as instructed every 4 hours as needed for wheezing/shortness of breath.^Disp: 18 g^Rfl: 11 apixaban (ELIQUIS) 5 mg tab(s)^Take 1 tablet by mouth twice daily.^Disp: 180 tablet^Rfl: 3 metoprolol tartrate, short acting, (LOPRESSOR) 25 mg tablet^Take 1 tablet by mouth twice daily.^Disp: 60 tablet^Rfl: 3 mometasone (NASONEX) 50 mcg/actuation nasal spray^Use 2 Sprays in the nose once daily. Rinse mouth after use.^Disp: 17 g^Rfl: 3 esomeprazole (NEXIUM) 40 mg capsule^Take 1 capsule by mouth once daily.^Disp: 90 capsule^Rfl: 3 clotrimazole (MYCELEX) 10 mg ada^Use 1 Ada as instructed four times daily.^Disp: 140 Ada^Rfl: 1 Cholecalciferol, Vitamin D3, 50 mcg (2,000 unit) cap^Take 1 capsule by mouth once daily.^Disp: 90 capsule^Rfl: 3 lidocaine (XYLOCAINE) 5 % ointment^Apply to affected area as needed (to urethral area). use a smallamount to affected area qid prn pain^Disp: 30 g^Rfl: 1 cyanocobalamin/cobamamide (B12 SUBLINGUAL)^Dissolve under the tongue.^Disp: ^Rfl: levothyroxine (SYNTHROID) 112 mcg tablet^Take 1 tablet by mouth once daily. Take on empty stomach. For Thyroid^Disp: 90 tablet^Rfl: 3 Magnesium Glycinate (MAG GLYCINATE) 100 mg tab^Take 1 tablet by mouth twice daily.^Disp: 60 tablet^Rfl: 5 sodium chloride (NEBUSAL) 3 % nebulizer solution^Use 4 mL via nebulizer twice daily.^Disp: 1200 mL^Rfl: 3 estradiol (ESTRACE) 0.01 % (0.1 mg/gram) vaginal cream^Use 0.5 g vaginally two times a week.^Disp: 42.5 g^Rfl: 3 lifitegrast (XIIDRA) 5 % ophthalmic drops^Use 1 Drop in both eyes twice daily.^Disp: 180 Each^Rfl: 3 (Patient taking differently: Use 1 Drop in both eyes twice daily. Pt states only uses at night) acyclovir (ZOVIRAX) 400 mg tablet^Take 1 tablet by mouth twice daily.^Disp: 180 tablet^Rfl: 3 (Patient not taking: No sig reported) Nebulizer and Compressor For Neb^1 Each twice daily.^Disp: 1 Each^Rfl: 1 tobramycin-dexAMETHasone (TOBRADEX) ophthalmic suspension^Use 1 Drop in both eyes twice daily.^Disp: 1 Bottle^Rfl: 1 fluorometholone (FML LIQUID FILM) 0.1 % ophthalmic suspension^Use 1 Drop in both eyes twice daily.^Disp: 1 Bottle^Rfl: 1 (Patient taking differently: Use 1 Drop in both eyes twice daily. Pt states takes when she needs) Flaxseed Oil 1,000 mg cap^Take 1,000 mg by mouth once daily.^Disp: ^Rfl: 0.9 % sodium chloride (0.9% NACL)^NURSING USE ONLY: USED FOR IMPLANTED VASCULAR ACCESS DEVICE (IVAD) ACCESS. AMBULATORY/OUTPATIENT: PLEASE REORDER UPON HOSPITAL DISCHARGE May access implanted vascular access device (IVAD) as needed for treatment. Flush IVAD with 10-20 mL NS every 4 weeks and PRN when IVAD not in use.^Disp: 1 Syringe^Rfl: 100 sodium chloride (PRATIMA 128) 5 % ophthalmic solution^Use 1 Drop in both eyes as needed. ^Disp: ^Rfl: MULTIVITAMIN ORAL^Take 1 tablet by mouth once daily.^Disp: ^Rfl: ipratropium bromide (ATROVENT) 42 mcg (0.06 %) nasal spray^Use 2 Sprays in the nose twice daily as needed.^Disp: 1 Bottle^Rfl: 5 Lactobacillus acidophilus (PROBIOTIC ORAL)^Take 1 capsule by mouth once daily.^Disp: ^Rfl: Social History Tobacco Use Smoking status: Never Smokeless tobacco: Never Vaping Use Vaping Use: Never used Substance Use Topics Alcohol use: Not Currently Comment: Quit 2013, previously 1-2 drinks per year Drug use: Never PMH, Social history, family history and surgical history reviewed and updated in EMR REVIEW OF SYSTEMS: CONSTITUTIONAL: No fevers, chills, nightsweats, unintended weight loss HEENT: Denies nasal congestion/sinus symptoms, allergy problems. EYES: No diplopia or blurry vision, eye pain or irritation CARDIOVASCULAR: No chest pain, dyspnea, palpitations, orthopnea, PND, edema. PULM: See HPI GI: No dysphagia/odynophagia, problematic reflux : No new urinary complaints, including dysuria, gross hematuria or pyuria. NEURO: No new balance problems, peripheral weakness/paresthesias or numbness of concern. PSY: No concerns regarding depression, anxiety INTEGUMENTARY: No new skin changes or rashes PHYSICAL EXAMINATION: BP 110/78 Pulse 74 Resp 17 Wt 154 lb (69.9kg) SpO2 97% General Appearance: Obese female, NAD Skin: Skin color, texture, turgor normal, no suspicious rashes or lesions. Head: Normocephalic, no masses, lesions, tenderness or abnormalities. Eyes: Sclera, conjunctiva normal Oropharynx: Oral thrush isolated to tongue, no other lesions Neck: No JVD, no masses, no adenopathy Lungs: Not labored, normal to percussion, no wheezes or crackles Heart: Regular rate and rhythm, no murmurs gallops Extremities: No edema, no clubbing Assessment/Plan: 1. Bronchiectasis -No need for chronic inhaler therapy other than as needed albuterol -She will continue current mucus clearance techniques -No need for suppressive antibiotics at this time -RTC 6 months or sooner with problem Chrissy Moser MD Res[facility] [place] documented in this encounterSum[facility]03-14-2023 Miscellaneous Notes* Telephone Encounter - Pamela Kaur LPN - 12/01/2022 8:50 AM EDT Message left on identified voicemail (parking placard) ready for pickling solution maker in our office. Pamela Kaur LPN * Telephone Encounter - Pamela Kaur LPN - 11/30/2022 2:54 PM EDT Letter pended Pamela Kaur LPN * Telephone Encounter - Gloria Munson - 11/30/2022 2:00 PM EDT Pt stopped in office and requested handicap placard prescription. Please contact pt and advise. Thank you! documented in this encounterSumma Health Wad[facility]12-22-2022 Miscellaneous Notes* Telephone Encounter - Kamala Santoro LPN - 09/10/2022 3:57 PM EST Pt notified and voiced understanding. Kamala Santoro LPN * Telephone Encounter - Mary Roberts MD - 09/10/2022 3:54 PM EST Ordered. If no improvement after Diflucan needs appointment * Telephone Encounter - Katie Kelley LPN - 09/10/2022 2:23 PM EST Patient called c/o vaginal itching and vulvar redness/swelling for the past few days. Patient triedotc monistat with no relief and is requesting Diflucan. Patient will not be able to come in for an office visit today or tomorrow. Patient has recently been prescribed 3 different antibiotics for pneumonia, sinus infection, and then an ear infection. documented in this encounterSumma Health Wad[facility]12-21-2022 Miscellaneous Notes* Telephone Encounter - Clare Baez DO - 09/09/2022 3:19 PM EST Thank you. And I agree she needs to take it twice a day indefinitely. The med list was confusing. Clare Baez DO * Telephone Encounter - Heena Alejandra LPN - 09/09/2022 12:32 PM EST Message left for patient to contact office. Heena Alejandra LPN * Telephone Encounter - Clare Baez DO - 09/09/2022 12:28 PM EST Please verify that she has been continuing to take Eliquis twice a day. In her med list she was originally prescribed a starter pack which was a 30-day supply. And I do not see any refills since. Clare Baez DO documented in this encounterSumma Health Wadsworth [facility]12-21-2022 History of Present illness Narrative* Clare Baez DO - 09/09/2022 11:52 AM EST Diagnosis: 1) 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 2) GVHD of the GI tract, liver, oral mucosa, vaginal mucosa and conjunctiva. HPI: The patient is a 72 yo female who was diagnosed with FLT3 ITD+/NPM1+ AML after presenting withchest pain. She received 7+3 and eltrombopag (CASE 1493) for induction. Her induction course was complicated by chest pain of unclear etiology and a skin rash likely due to cytarabine or zosyn. She had a UTI (E. coli) as well as noted pulmonary nodules on CT scan chest 07/13/2014. She was treated with posaconazole on 07/18/2014 since lesions appeared while on voriconazole. Discharged from [facility] 11/03/2014 following cycle #3 HiDAC. 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 Did very well for first 100 days and was tolerating steroid taper. Several days after going home, developed nausea/vomiting. Culminated in total colectomy. Per discharge summary 08/20/2015: Ms. Smith is a 65 year old female who presents from [facility] with positive V/Q scan c/w intermediate risk of pulmonary embolism. 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 She presented to [facility] 08/06 with chest pain. Her pain is described as left and right sided with left sided shoulder pain. Some dyspnea that she attributes to pain not difficulty getting breath in. She denies radiation to her jaw or back, no diaphoresis, no heaviness. She has an allergy to iodine and omnipaque so it was not possible to do a CTPE for she had a V/Q scan which showed intermediate probability for PE. While at [facility] Dr. Welch from oncology saw the patient and had no further recs. Pulmonary saw the patient as well and had no further recs. Cardiology evaluated the patient and felt that her troponin elevation is most likely secondary to her PE which was of high suspicion given immobility and malignancy. He suggested aspirin, continue beta neda, hold statin, noted chronic RBBB. Troponins were 0.098 and 0.121. On admission here she is HDS, conversant, some residual left shoulder pain but improved overall, nofevers, chills, night sweats and limited SOB. No diarrhea, dysuria, cough, headaches. Last two hospitalizations: 06/04-06/19 Developed E. Coli bacteriemia and was treated with a full course of meropenem. She resides at [place] currently. 06/19-07/10 Recently admitted where she developed pneumatosis coli and was taken to surgery where she got a subtotal colectomy with end ileostomy. Had a full course of CMV treatment with ganciclovir, followed by ID. Hospital Course: Mrs Smith was admitted to the MICU and placed on a heparin drip for suspected pulmonary embolism. CT scan with PE protocol was negative for pulmonary embolism and the heparin drip wasstopped. Once stabilized she was transferred to the BMT unit. [place] U/A and urine culture showeda UTI d/t a multi resistant E.Coli which was treatet with a week course of IV cetriaxone. Her hospital course was further complicated by atrial fibrillation with rapid ventricular response. This required transfer to cardiology ICU for continuous infusion amiodarone for hrt rate control. Her Coreg and norvasc was stopped due to low blood pressure. She was transitioned to oral Amiodarone, and her multiple medications were adjusted for interactions i.e ppx cipro and posa were dc'd. PT/OT recommended SNF upon discharge, final placement arrangements were made and she was transferred to [facility] Underwent ileoscopy on 08/17/2018 for potential GI bleed/GVHD. At approximately 28 cm proximal to the stoma one semi-pedunculated nonbleeding polyp was identified. It was 4 mm in diameter. Biopsies were obtained. Otherwise the examined portion of the ileum was normal. Pathology: 1. Ileum, biopsy (A) - Small intestinal mucosa with architectural distortion and occasional apoptotic bodies. See comment. 2. Ileum polyp, biopsy (B) - Small intestinal mucosa with architectural distortion and pyloric gland metaplasia, see comment. COMMENT The patient's history of yzdgr-qwvcjm-glur disease (GVHD) is noted. In the current specimen, only occasional apoptotic bodies are present, and do not meet our threshold for a diagnosis of GVHD (greater than 1 apoptotic body per piece of tissue). However, given their presence, some component of GVHDactivity cannot be entirely ruled out. Both biopsies show evidence of chronic mucosal injury, possibly from prior GVHD. Chronic infection,chronic ischemia and chronic drug/medication injury could also produce these histologic features. An immunostain for CMV will be obtained and the results will be reported as an addendum. EGD on 08/31/2018. She was observed to have localized, moderate inflammation characterized by erosions, erythema and friability as well as serpentine ulcerations in the gastric antrum. Biopsies were obtained. The examined duodenum was normal. The lower third and middle third of the esophagus were both normal. Patient was advised to use sucralfate in addition to her proton pump inhibitor. Pathology: 1. Duodenum, biopsy (A) - Duodenal mucosa with minimal crypt apoptosis. 2. Antrum, biopsy (B) - Antral mucosa with chronic active inflammation and features of erosion. - See comment. 3. Esophagogastric junction, biopsy (C) - Reactive squamous mucosa and inflamed cardiac mucosa. - No evidence of intestinal metaplasia or dysplasia. 4. Mid esophagus, biopsy (D) - Mildly reactive squamous mucosa with rare intraepithelial eosinophils (up to 2 eosinophils in a single high power field). COMMENT The level of apoptotic activity seen the duodenum biopsy (part A) is insufficient to warrant a diagnosis of GVHD. H. pylori and CMV immunostains performed on the antrum biopsy (part B) to evaluate the chronic active inflammation are both negative. Underwent left hip replacement in January 2019. Was seen by gynecology at the beginning of April 2022 for vaginal and vulvar pain. It had come on a few days prior. She continued clobetasol Monistat without any relief. [place] like entire area was swollen and sore. Seen by primary care physician in mid April 2022. Was having increasing leg pain. Was directed to the ED at [facility]. Evidently noncontrast CT demonstrated no etiology for pain. Pain continued to worsen and she presented to [facility] on 05/18/2022. She underwent a right lower extremity venous duplex exam which showed acute DVT in the right lower extremity in the right distal external iliac vein, right common femoral vein, right femoral vein, right deep femoral vein and right posterior tibial vein. Acute clot was also noted in the right greater saphenous vein. She was started on anticoagulation with Eliquis. Presents for ongoing oncologic management. Interim history: Had quick onset worsening cough and wheezing day before Thanksgi. Went to [facility] swab negative forCovid and flu. Discharged. Next morning at son's house in [place], had worsening shortness of breath and tachycardia. Was hospitalized at [facility] for pneumonia. No mouth sores currently. No vaginal pain or sores currently. PMH, medications and allergies personally reviewed by me today. Any changes documented in appropriate section. PHYSICAL EXAM: Vitals: Blood pressure 109/68, pulse 90, temperature 37.3 C (99.1 F), weight 74.8 kg (165 lb), [id number] %. Well-appearing and in no acute distress. EYES: Sclerae are anicteric bilaterally. No conjunctival injection. LYMPHATIC: There is no palpable cervical, supraclavicular or inguinal adenopathy. RESPIRATORY: Inspiratory breath sounds are of normal intensity in all hamm[place]. No rales, wheezes or rhonchi. CARDIOVASCULAR: Rhythm is regular. ABDOMEN: The abdomen is nondistended. There is generalized tenderness throughout. Extremities: Very mild swelling distal right lower extremity when compared to the left. Subjectively she said this is much better than it had been. SKIN: No jaundice. LABS: Component Latest Ref Rng & Units 09/09/2022 WBC 3.70 - 11.00 k/uL 8.04 RBC 3.90 - 5.20 m/uL 4.02 Hemoglobin 11.5 - 15.5 g/dL 13.5 Hematocrit 36.0 - 46.0 % 39.8 MCV 80.0 - 100.0 fL 99.0 MCH 26.0 - 34.0 pg 33.6 MCHC 30.5 - 36.0 g/dL 33.9 RDW-CV 11.5 - 15.0 % 15.5 (H) Platelet Count 150 - 400 k/uL 260 MPV 9.0 - 12.7 fL 10.2 Neut% % 34.1 Abs Neut (ANC) 1.45 - 7.50 k/uL 2.74 Lymph% % 51.4 Abs Lymph 1.00 - 4.00 k/uL 4.13 (H) [place]% % 9.8 Abs [place] <0.87 k/uL 0.79 Eosin% % 4.4 Abs Eosin <0.46 k/uL 0.35 Baso% % 0.2 Abs Baso <0.11 k/uL <0.03 Immature Gran % % 0.1 IMMATURE GRANS (ABS) <0.10 k/uL <0.03 NRBC /100 WBC 0.4 Absolute nRBC <0.01 k/uL 0.03 (H) DTYPE Auto Protein, Total 6.3 - 8.0 g/dL 6.4 Albumin 3.9 - 4.9 g/dL 4.1 Calcium 8.5 - 10.2 mg/dL 9.2 Bilirubin, Total 0.2 - 1.3 mg/dL 0.3 Alkaline Phosphatase 34 - 123 U/L 121 AST 13 - 35 U/L 26 ALT 7 - 38 U/L 27 Glucose 74 - 99 mg/dL 107 (H) BUN 7 - 21 mg/dL 31 (H) Creatinine 0.58 - 0.96 mg/dL 0.86 Sodium 136 - 144 mmol/L 146 (H) Potassium 3.7 - 5.1 mmol/L 4.1 Chloride 97 - 105 mmol/L 109 (H) CO2 22 - 30 mmol/L 22 Anion Gap 9 - 18 mmol/L 15 eGFR >=60 mL/min/1.73m 72 ASSESSMENT/PLAN: (I82.413) Acute deep vein thrombosis (DVT) of femoral vein of both lower extremities (HCC) (primaryencounter diagnosis) (R06.00, R06.89) Dyspnea and respiratory abnormalities Assessment: -Patient has history of left-sided lower extremity DVT. She had been off Eliquis for about a year. Restarted when had acute DVT right leg 04/2022. -Has IVC filter in place. -Still experiencing dyspnea with exertion and tachycardia. -Groin pain significantly improved. -Had been tolerating apixaban at anticoagulant doses without unusual bleeding or unexplained bruising. -Discussed she will require anticoagulation indefinitely. -Potential work-up for hypercoagulable state such as lupus anticoagulant in a few months once she is managed through the acute DVT. Plan: -Continue apixaban twice daily. 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 -Continued low-grade zcfqw-rvdxum-ukmv disease of the conjunctiva, oral mucosa and vaginal area. Symptoms controlled and now improved with topical therapy. -Sirolimus discontinued. -Developed symptoms of chronic bronchitis and bronchiectasis. Evaluated by pulmonary medicine. On bronchodilator therapy and Mucinex with improvement in symptoms. Not related to GVHD. -Reviewed counts. Plan: -OV with labs in 6 months. Portions of this documentation were copied and pasted from previous office visit notes in order to provide a cohesive continuity of the history. The note has been reviewed and edited and updated as necessary. Clare Baez DO documented in this encounterSumma Health Wadsworth [facility]12-06-2022 Miscellaneous Notes* Telephone Encounter - Lidia Lopez MD - 08/25/2022 2:40 PM EST Wonder if need to write for the quantity that is covered and the supplier could [place] to [place]? * Telephone Encounter - Zayda Valero LPN - 08/25/2022 2:25 PM EST Called and reviewed that insurance is not covering the supply that was asked for They were asking for ^ qty due to going to [place] and hard to get supplies at different locations that they are at. Recommended pt all her insurance to review this is the reason. * Telephone Encounter - Reba Casiano LPN - 08/25/2022 1:44 PM EST LEFT MESSAGE FOR PATIENT TO CALL OFFICE. * Telephone Encounter - Lidia Lopez MD - 08/25/2022 1:39 PM EST Verify with patient how often she is needing to change her ostomy back and if more than what is covered, verify reason. * Telephone Encounter - Shannon Brown LPN - 08/25/2022 9:45 AM EST Chinyere Swenson from [facility] Medicare calling to have provider call to schedule peer to peer for patient ostomy supplies overage was denied. Jojo had order for 150 ostomy items for a year denied. Usual amount is 60 for 6 months-10 per month. No notes as to why asking for overage amount for the patient. Office notes form April visit only says where patient is asking for 6 month rx with refill for ostomy supplies. Provider needs to call to schedule peer to peer before 1 pm on 08/26/2022 when closes. [phone] call to schedule time with remote medical coder. Case number is [id number]. Or can do appeals process after that time period has . can call [phone] to get directions what to do for appeal process. documented in this encounterSumma Health Wadsworth [facility]12-06-2022 History of Present illness Narrative* Zayda Valero LPN - 08/25/2022 2:28 PM EST TRANSITION CARE MANAGEMENT (TCM) INITIAL CONTACT Internal Control Consultant Outreach Provider Action/FYI: TCM Initial contact with patient post discharge, spoke to spouse. Patient identified by name and . TRANSITION CARE MANAGEMENT INITIAL OUTREACH DOCUMENTATION: Date of Outreach: 08/25/2022 Outreach Attempt 1: Contact Made Date of Discharge 08/24/2022 Some recent data might be hidden SUMMARY: -Pt discharged from [facility] on 08/24/22. -Admitted for: viral syndrome bronchspasm,PEPE Do you have a hospital follow up appointment with your PCP? Appointment on 09/02/22 with pcp. Yes. Remind patient of appointment date, time, and location. If not within 14 calendar days of discharge - please reschedule accordingly. MEDICATIONS: Many patients have questions or concerns about their medications once they are home. Were you prescribed any new medications? If yes, what are those medications? Predisone 10 mg #52 taking 4 tablets by mouth daily for 5 days then 3 tablets daily times 5 days then 2 tablets daily time s5 days they one tablet daily times 5 days then 1/2 tablet daily times 4 days. Pt did file this rx but not sure she plans on taking this as didn't feel there is a need. Were you told to hold any medications? No Were any of your medications discontinued? No Do you have any questions about getting or taking your medications? No Your discharge instructions/After visit Summary (AVS) are important in guiding you through the recovery process. Is there anything I might help you understand? No Do you have all the necessary equipment and supplies at home? Yes Medical records from recent hospitalization: Placed for provider to review We are calling pt to get sooner pulmonary follow up. documented in this encounterSumma Health Wadsworth [facility]11-29-2022 History of Present illness Narrative* Lauren Gomez RN - 08/18/2022 2:39 PM EST Discharge instructions and follow up appointment discussed at bedside with patient and the .Patient and verbalized understanding of discharge instructions. Left chest port deaccessed per order, no complications noted, patient tolerated well. Patient transported to [facility] via wheelchair by [facility], transported home via car by . Patient left in stable condition. * Reverend Carvajal - 08/18/2022 12:45 PM EST Spiritual Care Notes Completed by: Reverend Carvajal Person(s) Present During this Visit: Patient, spouse Time Spent in Direct Patient Care: 15 Narrative: Ampoule Washing Machine Operator provided a routine rounding visit with patient and her spouse. Patient was sitting up in bed and appeared fully engaged. Patient shared that she was from [place], [place] where she hadgood family and spiritual support. This yam curer provided active listening, explored her spirituality and provided information regarding pastoral care services, 12/04 availability, and how to contact. Patients Response to Pastoral Care: Appeared fully engaged Planning for Future Visits: PRN 08/18/22 1300 Visit Background Visit With Patient;Spouse Visit By Staff Ampoule Washing Machine Operator Visit Progression Introduction Visit Requested By Ampoule Washing Machine Operator Initiated Visit Source Ampoule Washing Machine Operator Initiated Visit Type Inpatient;Rounding Visit Circumstances and Events Routine Visit Visit Length (minutes) 15 Patient's Response to Pastoral Care Appeared to be well-engaged Visit Planning PRN Spiritual Assessment Assessed during this visit Confucianist Assessment Assessed during this visit Family assessment provided? Unable to asess during this visit Patient Spiritual Needs Assessment Sources of Connection Spouse;Support Group Belief Practices Attends Confucianist Services Image of the Divine Answers Prayer;Creator Role of the Divine in Pt's Illness Divine is Source of Support Spiritual Wellness Activies and Resources Alissa Community;Prayer Expressed / Stated Feelings Expressed Gratitude Attitude Toward Illness Tentative / Waiting Coping Mechanisms Family Support;Prayer/Spiritual Practices Spiritual Diagnosis Awareness of the Sacred Facilitated Interventions Active Listening;Explained Role of the Ampoule Washing Machine Operator;Explored Patient's Spirituality Spiritual/Emotional Outcomes Acceptance;Gratitude Spiritual Plan of Care Access Support System;Contact [facility] Patient Confucianist Needs Assessment Confucianist Connection Active Relationship Confucianist Home Islam Confucianist Resources Prayer;Alissa Community Expressed Outcome Expressed Gratitude Rev. Gricel Carvajal, MS, MA, BA Staff Ampoule Washing Machine Operator, Pastoral Care [facility] [phone] * Ryan Lujan Jr., MD - 08/18/2022 11:49 AM EST [facility] Inpatient Progress Note 08/18/2022 Cong Smith 1950 [id number] Assessment/Plan: Cong Smith is a 72 y.o. female with a history of AML, CAD, HTN, bronchiectasis who presented to [facility] for SOB and productive cough with recent diagnosis of cold at [facility]. In ED, she underwent evaluation with CXR and CT c/a/p which were not acute though positive for finding of dilated main pulmonary artery c/w pulmonary HTN. She was transferred to [facility] 08/15/2022 for further workup and evaluation. Bronchiectasis with acute exacerbation: presented with about 5 days SOB with productive cough with yellow sputum. No f/c at home. Follows with Dr. Moser ([facility] pulm). CXR and CT c/a/p in ED neg for acute findings. Obtain sputum cx. Empiric IV abx with azithromycin. Given dose of solumedrol in ED, transitioned to prednisone 08/15/22. Scheduled nebs with PRN albuterol. Improving. Completed 5 days of azithro/prednisone. F/u with pulm as outpatient. 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 In setting of above. Tx of bronchiectasis flare as above. weaned O2 to RA. Sheuses 1L nigthly at home. Abnormal CT: CT c/a/p in ED with dilation of main pulmonary arteries suggestive of underlying pulmonary HTN. TTE 06/05/2022 with EF 57 +-5% with normal RV size and function per CareEverywhere. F/u as outpatient. Dysuria: with increased urinary frequency. UA and culture negative. 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 Continued outpatient follow up Atrial fibrillation: per history. 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 Continued home Eliquis HTN: continued home medications, monitoring BP and adjusted PRN T2DM with Steroid-Induced Hyperglycemia: diet controlled. Started SSI. Hypothyroidism: continued home Synthroid Ostomy status: continued stoma and ostomy care, ET consulted Code status: full code, confirmed on admit DVT Prophylaxis: Eliquis Admitted with these risk variables:None. Please see assessment and plan for further details. Current living situation: home with Expected Disposition: same. Declined [facility] Estimated discharge date: 08/18/22 Subjective: No new complaints. Breathing slowly improving, still productive cough. Weaned to RA. She uses 1L o2at night at home. Home later today and advised f/u with PCP/pulm. Physical Exam: BP 124/79 Pulse 72 Temp 97.9 F (36.6 C) (Oral) Resp 14 Ht 4' 10 Wt 70.3 kg (155 lb) SpO2 94% BMI 32.40 kg/m General: NAD, resting in bed Eyes: EOMI, gaze conjugate ENT: neck supple, MMM Cardiovascular: Regular rate. No murmur Respiratory: Clear to auscultation, on 2L NC, rhonchi on R>L. Cough present Gastrointestinal: Soft, non tender, ostomy present with brown stool Genitourinary: no suprapubic tenderness Musculoskeletal: No edema. FRANK x4 Skin: warm, dry Neuro: Alert. Follows commands Psych: Mood anxious, cooperative Current Medications: apixaban 5 mg Oral BID azithromycin 500 mg Oral at bedtime benzonatate 100 mg Oral TID cholecalciferol (vitamin D3) 2,000 Units Oral Daily lispro insulin 0-15 Units Subcutaneous at bedtime insulin lispro 0-30 Units Subcutaneous TID AC ipratropium-albuteroL 3 mL Inhalation Q6H [facility] levothyroxine 112 mcg Oral Daily metoprolol tartrate 25 mg Oral Daily pantoprazole 40 mg Oral Daily predniSONE 40 mg Oral Daily with breakfast sodium chloride (PF) 5 mL Intravenous Q8H [facility] Labs, Imaging and Studies reviewed: Results from last 7 days Lab Units 08/17/22 1200 08/16/2222708/15/22 1332 WBC K/mcL 11.52* 14.11* 13.22* HGB g/dL 12.9 13.7 15.3 HCT % 38.3 41.5 46.9* PLT K/mcL 253 226 235 Results from last 7 days Lab Units 08/17/22 1259 08/16/22 0228 08/16/2222708/15/22 1411 SODIUM mmol/L 139 -- 139 -- POTASSIUM mmol/L 4.5 -- 4.0 -- CHLORIDE mmol/L 107 -- 110* -- BICARB mmol/L 22 -- 18* -- BUN mg/dL 22 -- 19 -- POC BUN mg/dL -- -- -- 16 CREATININE mg/dL 0.87 -- 0.83 -- POC CREATININE (EPOC) mg/dL -- -- -- 1.00 EGFR mL/min/1.73 m2 71 -- 75 -- GLUCOSE mg/dL 103* < > 247* -- < > = values in this interval not displayed. Results from last 7 days Lab Units 08/15/22 1418 POCINR 1.6* * Emi Pillai, DO - 08/17/2022 10:23 AM EST [facility] Inpatient Progress Note 08/17/2022 Cong Smith 1950 [id number] Assessment/Plan: Cong Smith is a 72 y.o. female with a history of AML, CAD, HTN, bronchiectasis who presented to [facility] for SOB and productive cough with recent diagnosis of cold at [facility]. In ED, she underwent evaluation with CXR and CT c/a/p which were not acute though positive for finding of dilated main pulmonary artery c/w pulmonary HTN. She was transferred to [facility] 08/15/2022 for further workup and evaluation. Bronchiectasis with acute exacerbation: presented with about 5 days SOB with productive cough with yellow sputum. No f/c at home. Follows with Dr. Moser ([facility] pulm). CXR and CT c/a/p in ED neg for acute findings. Obtain sputum cx. Empiric IV abx with azithromycin. Given dose of solumedrol in ED, transitioned to prednisone 08/15/22. Scheduled nebs with PRN albuterol. 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 In setting of above. Tx of bronchiectasis flare as above. weaned O2 as able Abnormal CT: CT c/a/p in ED with dilation of main pulmonary arteries suggestive of underlying pulmonary HTN. TTE 06/05/2022 with EF 57 +-5% with normal RV size and function per CareEverywhere. If SOB not improving with tx of above, consider repeat limited echo to eval RVSP Dysuria: with increased urinary frequency. Ordered UA and culture 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 Continued outpatient follow up Atrial fibrillation: per history. 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 Continued home Eliquis HTN: continued home medications, monitoring BP and adjusted PRN T2DM with Steroid-Induced Hyperglycemia: diet controlled. Started SSI. Hypothyroidism: continued home Synthroid Ostomy status: continued stoma and ostomy care, ET consulted Code status: full code, confirmed on admit DVT Prophylaxis: Eliquis Admitted with these risk variables:None. Please see assessment and plan for further details. Current living situation: home with Expected Disposition: same. Declined [facility] Estimated discharge date: 1-2 days pending improved oxygenation *Updated pt's at bedside 08/17/22 Subjective: Pt's present at bedside. Pt admits to uncontrolled cough; added tomás tessalon perles and prn. Pt remains on 2L NC today. Pt states she gave sputum culture yesterday but unclear if this was sent to lab. Admits to increased urinary frequency; urine studies ordered. Discussed current medical issues and plan of care including await sputum culture, continue steroids and azithromcyin, wean O2 asable, therapy following Discussed case with rounding nurse, pharmacist and social work this AM. Physical Exam: BP 110/71 (BP Location: Right arm, Patient Position: Lying) Pulse 92 Temp 98 F (36.7 C) (Oral) Resp 18 Ht 4' 10 Wt 70.3 kg (155 lb) SpO2 91% BMI 32.40 kg/m General: NAD, resting in bed Eyes: EOMI, gaze conjugate ENT: neck supple, MMM Cardiovascular: Regular rate. No murmur Respiratory: Clear to auscultation, on 2L NC, rhonchi on R>L. Cough present Gastrointestinal: Soft, non tender, ostomy present with brown stool Genitourinary: no suprapubic tenderness Musculoskeletal: No edema. FRANK x4 Skin: warm, dry Neuro: Alert. Follows commands Psych: Mood anxious, cooperative Current Medications: apixaban 5 mg Oral BID azithromycin 500 mg Oral at bedtime benzonatate 100 mg Oral TID cholecalciferol (vitamin D3) 2,000 Units Oral Daily lispro insulin 0-15 Units Subcutaneous at bedtime insulin lispro 0-30 Units Subcutaneous TID AC ipratropium-albuteroL 3 mL Inhalation Q6H [facility] levothyroxine 112 mcg Oral Daily metoprolol tartrate 25 mg Oral Daily pantoprazole 40 mg Oral Daily predniSONE 40 mg Oral Daily with breakfast sodium chloride (PF) 5 mL Intravenous Q8H [facility] Labs, Imaging and Studies reviewed: Results from last 7 days Lab Units 08/16/2222708/15/22 1332 WBC K/mcL 14.11* 13.22* HGB g/dL 13.7 15.3 HCT % 41.5 46.9* PLT K/mcL 226 235 Results from last 7 days Lab Units 08/16/2222708/15/22 1411 SODIUM mmol/L 139 -- POTASSIUM mmol/L 4.0 -- CHLORIDE mmol/L 110* -- BICARB mmol/L 18* -- BUN mg/dL 19 -- POC BUN mg/dL -- 16 CREATININE mg/dL 0.83 -- POC CREATININE (EPOC) mg/dL -- 1.00 EGFR mL/min/1.73 m2 75 -- GLUCOSE mg/dL 247* -- Results from last 7 days Lab Units 08/15/22 1418 POCINR 1.6* * Emi Pillai DO - 08/16/2022 11:37 AM EST [facility] Inpatient Progress Note 08/16/2022 Cong Smith 1950 [id number] Assessment/Plan: Cong Smith is a 72 y.o. female with a history of AML, CAD, HTN, bronchiectasis who presented to [facility] for SOB and productive cough with recent diagnosis of cold at [facility]. In ED, she underwent evaluation with CXR and CT c/a/p which were not acute though positive for finding of dilated main pulmonary artery c/w pulmonary HTN. She was transferred to [facility] 08/15/2022 for further workup and evaluation. Bronchiectasis with acute exacerbation: presented with about 5 days SOB with productive cough with yellow sputum. No f/c at home. Follows with Dr. Moser ([facility] pulm). CXR and CT c/a/p in ED neg for acute findings. Obtain sputum cx. Empiric IV abx with azithromycin. Given dose of solumedrol in ED, transitioned to prednisone 08/15/2022. Scheduled nebs with PRN albuterol. 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 In setting of above. Tx of bronchiectasis flare as above, weaned O2 as able Abnormal CT: CT c/a/p in ED with dilation of main pulmonary arteries suggestive of underlying pulmonary HTN. TTE 06/05/2022 with EF 57 +-5% with normal RV size and function per CareEverywhere. 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 Continued outpatient follow up Atrial fibrillation: per history. 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 Continued home Eliquis HTN: continued home medications, monitoring BP and adjusted PRN T2DM with Steroid-Induced Hyperglycemia: diet controlled. Started SSI. Hypothyroidism: continued home Synthroid Ostomy status: continued stoma and ostomy care, ET consulted Code status: full code, confirmed on admit DVT Prophylaxis: Eliquis Admitted with these risk variables:None. Please see assessment and plan for further details. Current living situation: home with Expected Disposition: same. Declined [facility] Estimated discharge date: 1-2 days pending improved oxygenation Subjective: Patient new to me. I reviewed prior medical records and history in EMR and have summarized my findings in the assessment and plan above. Hyperglycemic overnight in setting of steroids. SSI added. Pt remains on 2L NC today. Normally onlyon 2L NC at bedtime in setting of VALDEMAR. Follows with [facility] pulm. Discussed CT findings and recommendedO/P pulm follow up.Pt lives with her but admits to progressive debility in setting of steroid use. Discussed current medical issues and plan of care including obtain sputum culture, continue steroids and azithromcyin, wean O2 as able, therapy consulted Discussed case with rounding nurse and social work this AM. Physical Exam: BP (!) 91/52 (BP Location: Left arm, Patient Position: Lying) Pulse 72 Temp 97.8 F (36.6 C) (Oral) Resp 18 Ht 4' 10 Wt 70.3 kg (155 lb) SpO2 93% BMI 32.40 kg/m General: NAD, resting in bed Eyes: EOMI, gaze conjugate ENT: neck supple, MMM Cardiovascular: Regular rate. No murmur Respiratory: Clear to auscultation, on 2L NC, rhonchi on R Gastrointestinal: Soft, non tender, ostomy present Genitourinary: no suprapubic tenderness Musculoskeletal: No edema. FRANK x4 Skin: warm, dry Neuro: Alert. Follows commands Psych: Mood anxious, cooperative Current Medications: apixaban 5 mg Oral BID azithromycin 500 mg Oral at bedtime cholecalciferol (vitamin D3) 2,000 Units Oral Daily lispro insulin 0-15 Units Subcutaneous at bedtime insulin lispro 0-30 Units Subcutaneous TID AC ipratropium-albuteroL 3 mL Inhalation Q6H [facility] levothyroxine 112 mcg Oral Daily metoprolol tartrate 25 mg Oral Daily pantoprazole 40 mg Oral Daily predniSONE 40 mg Oral Daily with breakfast sodium chloride (PF) 5 mL Intravenous Q8H [facility] Labs, Imaging and Studies reviewed: Results from last 7 days Lab Units 08/16/2222708/15/22 1332 WBC K/mcL 14.11* 13.22* HGB g/dL 13.7 15.3 HCT % 41.5 46.9* PLT K/mcL 226 235 Results from last 7 days Lab Units 08/16/2222708/15/22 1411 SODIUM mmol/L 139 -- POTASSIUM mmol/L 4.0 -- CHLORIDE mmol/L 110* -- BICARB mmol/L 18* -- BUN mg/dL 19 -- POC BUN mg/dL -- 16 CREATININE mg/dL 0.83 -- POC CREATININE (EPOC) mg/dL -- 1.00 EGFR mL/min/1.73 m2 75 -- GLUCOSE mg/dL 247* -- Results from last 7 days Lab Units 08/15/22 1418 POCINR 1.6* documented in this [id number] Consult note* Mona Hirsch RN - 08/18/2022 1:36 PM ESTAssociated Order(s): IP CONSULT TO ENTEROSTOMAL THERAPY [facility] RN note: Patient is an established ostomy and independent with ostomy care, RN to provide assistance if needed. Visited with pt and her , no needs at this time. If issues arise with leakage or supply needs, please vocera ET nurse or call [phone]. Thank you. We will sign off at this time. Mona CAAL, RN-BC [phone] [id number] Consult note* Mona Doshi RN - 08/18/2022 1:36 PM ESTAssociated Order(s): IP CONSULT TO ENTEROSTOMAL THERAPY [facility] RN note: Patient is an established ostomy and independent with ostomy care, RN to provide assistance if needed. Visited with pt and her , no needs at this time. If issues arise with leakage or supply needs, please vocera ET nurse or call [phone]. Thank you. We will sign off at this time. Mona CAAL, RN-BC [phone] * Aster Sue RN - 08/16/2022 11:11 AM ESTAssociated Order(s): IP CONSULT TO CARE MANAGEMENT Care Management Consult Note Date: 08/16/2022 Time: 11:11 AM Patient Name: Cong Smith Date of : 1950 Reason for Consult: Discharge Needs Discharge Plan: Home with , declines [facility] PT OT or Pulmonary Rehab Discharging Transportation Plan: Transportation Type: Auto ( will provide transportation at [place]) Discharge Plan Status: pending medical stability Assessment and Background Information: Living Arrangements: Spouse/significant other Support Systems: Spouse/significant other, Family members Assistance Needed: none Type of Residence: Private residence, Multi-level (stairs) Prior to Admission Home Care Services: Yes (in the past , not current) Patient expects to be discharged to:: home Does the patient need discharge transport arranged?: No Current Home Equipment: Nebulizer, Oxygen, Other (Comment) ( states we have all equipment that is needed) CM met with patient and her at bedside to complete consult for DC needs. Patient is alert and oriented x 4, [place], but agreeable to CM visit. CM reviewed medical record, introduced self and role of CM within multidisciplinary team. OT at bedside of initial interview. ? Living Environment / Support : Patient lives with spouse in a multi level home with many stairs, patient states that she is able to navigate stairs Patient is independent needs minimal assistance in the home. Patient is able to afford utilities. Home Health / DME: Patient has used HHC in the past and declines additional therapies post hospitalization. Patient statesWhat I really need ids for someone to walk me briefly discussed pulmonary rehabilitation and patient declines NEW DME:needs none, states that they have all needed equipment at home. Patient uses 2LNC at night and [facility] is the last provider that they can remember using. PCP Dr Lidia Lopez MD and patient is active with care. Patient states that she would like Dr Moser at [facility] to receive correspondences, however she is not rin of the first name of . . Health Insurance / RX / Financial Needs: Confirmed health and prescription coverage. Patient's preferred pharmacy updated on EMR ([facility]) . Patient denies financial hardship related to medical/prescription co-pays. Source of income is pension. Patient is not linked with community resources. Transportation: Patient is able to drive a vehicle. [facility] Patient was appreciative of CM visit and denied additional needs at this time. CM/SW will continue to follow along with multidisciplinary team for ongoing assessments and planning. NO NEEDS IDENTIFIED AT THIS TIME, PLEASE RE CONSULT CM FOR ADDITIONAL NEEDS Aster CAAL,RN,CCM double cut [employer] Weekend -[employer] Utilization Management Secure Chat for non urgent issuse Vocera for urgent issues * Ashanti Mahajan, OT - 08/16/2022 11:01 AM EST Occupational Therapy OCCUPATIONAL THERAPY EVALUATION Skilled Therapy Needs After Discharge Are Skilled Therapy Services Needed After Discharge: Yes Intensity of Skilled Therapy: 2-3 days per week Anticipated Duration of Skilled Therapy: Duration 7 - 10 days DME Recommendation: None Rehab Potential: Good, For goals Outcomes Measures Prior Function Daily Activity Raw Score: 24 Prior Function Daily Activity % Impaired: 0% AM-PAC Daily Activity Raw Score: 21 AM-PAC Daily Activity % Impaired: 32.79% Occupational Therapy Assessment The patient's current functional participation deficits are bathing, toileting, LE dressing, functional mobility. This reduced independence will limit their life roles of premorbid level individual. The patient's co morbidities do affect patient performance in the above activities and roles. The performance deficits are a result of musculoskeletal, cardiopulmonary impairment(s) in generalized debility including acitvity tolerance, balance, strength, insight, and knowledge deficit. The patient's family / caregiver support is a hot kettle tender, home setup is a barrier for return to prior level of function. 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 During the assessment, minimal to moderate modification of task was required and several treatment options were identified in the plan of care. This consultation required extensive review of the medical and therapy history. Activity Tolerance Therapy Precautions General Rehab Precautions: Fall risk Cognition Arousal/Alertness: Appropriate responses to stimuli Orientation Level: Oriented X4, With cues Executive functioning: Min impairment, Insight Attention: Attends to quiet environment Hearing Status: Hard of hearing, Hearing aide, Right ear, Left ear Social Interaction: Cooperative ADL Grooming: Stand by assist (standing without UE support x ~4 minutes) Lower Body Dressing: Stand by assist IADL Bed Mobility Functional Transfers Sit to Stand: Stand by assist Lateral Transfers: Stand by assist Additional Assessment Details Home Living Obtained Home Living and PLOF info from: Patient, Patient s family member Prior Level of Function Past Medical History: Diagnosis Date Cancer (HCC) Coronary artery disease Deep vein thrombosis (HCC) Disease of thyroid gland Hyperlipidemia Hypertension Renal disorder Past Surgical History: Procedure Laterality Date ABDOMINAL SURGERY CARDIAC CATHETERIZATION CHOLECYSTECTOMY COLON SURGERY For complete objective data, detailed plan of care and patient education refer to: OT Evaluation flowsheet, OT Evaluation and Treatment flowsheet, OT Treatment flowsheet, patient Plan of Care, Plan of Care progress note, and Patient Education. This note stands as the current Discharge Summary upon patient discharge from the hospital or completion of Occupational Therapy Plan of Care. * Pamela Mcdaniel, PT - 08/16/2022 10:18 AM EST Physical Therapy PHYSICAL THERAPY EVALUATION and TREATMENT NOTE PHYSICAL THERAPY EVALUATION Skilled Therapy Needs After Discharge Anticipate Resolution of Current Assessment Limitations Including: Mechanical Barriers Are Skilled Therapy Services Needed After Discharge: Yes Intensity of Skilled Therapy: 2-3 days per week Anticipated Duration of Skilled Therapy: Duration 10 - 30 days DME Recommendation: None (pt has recommended DME) Rehab Potential: Good, For goals Outcomes Measures Prior Function - Basic Mobility Raw Score: 24 Points Prior Function - Basic Mobility % Impaired: 0% AM-PAC Basic Mobility Raw Score: 16 Points AM-PAC Basic Mobility % Impaired: 47.12% Physical Therapy Assessment History: The following factors influence the patient's participation in the PT plan of care: Personal Factors: Limited Baseline Mobility, Social Barriers, Body Habitus Environmental Factors: Multi-level home, Bedroom/bathroom on 2nd floor The following co-morbidities (from this admission or prior) influence the patient's participation in this plan of care: Patient presents to [facility] with Bronchietasis. PMH: A-fib, HTN, T2DM, ostomy. Number of History elements affecting this patient's PT plan of care: 3 or more Examination of Body Systems: The patient presents with: Musculoskeletal impairments: Strength, Functional Endurance Neurologic Impairments: Balance, Hearing Cardiopulmonary Impairments: Activity Tolerance, Heart Rate Control with Activity. These impairments result in limitations of Gait, Functional Transfers, Stair- Climbing, Safety, Activity Tolerance, Safety Awareness. These impairments result in restrictions of Household mobility, Community mobility, Leisure activities. Number of Body Systems elements affecting this patient's PT plan of care: 3 or more. Clinical Presentation: The patient's clinical presentation for this PT evaluation is evolving with changing characteristics as evidenced by current PT documentation. Activity Tolerance Activity Tolerance: Tolerates 20 - 30 min activity with multiple rests Therapy Precautions Orthotic Devices: No General Rehab Precautions: Fall risk Balance Assessment Sitting Balance - Static: Stand by assist Sitting Balance - Dynamic: Stand by assist Standing Balance - Static: Contact guard assist Vulcanizer - Standing Static: wheeled walker Standing Balance - Dynamic: Contact guard assist Vulcanizer - Standing Dynamic: wheeled walker Bed Mobility Rolling: Stand by assist Supine to Sit: Stand by assist Sit to Supine: Stand by assist Vulcanizer: bedrails Transfers Sit to Stand: Contact guard assist, Stand by assist (completed 2x10 STS with rest break of 2 minutes) Gait/Locomotion Gait Assistance: (Did not attempt this date due to monitor not working.) Home Living Obtained Home Living and PLOF info from: Patient, Patient s family member Lives With: Spouse Type of Home: House Home Layout: Multi-level (bed and bath in basement- down ~12 steps (3rd floor down), bath on main floor. Middle level is rec room where she spends her time.) Steps to enter home: Ramped entrance Bathroom Shower/Tub: Walk-in shower Bathroom Toilet: Standard Bathroom Equipment: Grab bars in shower, Shower chair, Tub transfer bench, Grab bars around toilet,Bedside commode Mobility Equipment: Cane, Wheeled walker, Wheelchair - manual, Hospital bed Prior Level of Function Level of [place] - Transfers/Ambulation/Mobility: Independent with functional transfers, Independent with household ambulation, Independent with community ambulation Level of [place] - ADLs: Independent with ADLs, except Dressing: Minimal assist (with LE) Level of [place] - Homemaking: Needs assistance ( does all homemaking tasks) Driving: Patient drives Vocational: Retired Leisure: knitting, reading, volunteer PHYSICAL THERAPY TREATMENT NOTE Total Treatment Time (Total Session Time): 39 Minutes Total Timed Code Treatment Minutes: 15 Minutes Neuromuscular Reeducation Sitting Balance Treatment: weight shifting left, weight shifting right, upright gaze, decreased UE support Skilled Intervention Provided: verbal cues, patient education For: attention to task, efficient movement, safe use of AD and/or equipment Resulting in: improved activity tolerance, improved functional independence, improved motor control, improved safety, improved performance Standing Balance Treatment: weight shifting left, weight shifting right, decreased UE support, upright gaze, stepping forward, stepping backward, marching in place, side stepping (completed 5 side stepping laps with no FWW) Skilled Intervention Provided: verbal cues, environmental setup/modification, patient education For: efficient movement, initiation of tasks, safe use of AD and/or equipment, sequencing of movement, trunk control Resulting in: improved activity tolerance, improved functional independence, improved motor control, improved performance, improved safety Therapeutic Activities Bed Mobility Skilled Intervention Provided: verbal cues, facilitation, monitoring patient response with activity, provided step by step instructions, patient education For: UE positioning, attention to task, breathing techniques, logroll technique, safe use of bedrails and/or equipment Resulting in: improved activity tolerance, improved functional independence, improved performance, increased initiation in mobility task(s), improved safety Transfers Skilled Intervention Provided: verbal cues, monitoring patient response with activity, patient education For: breathing techniques, controlled descent, efficient movement, proper body mechanics, safety during functional tasks Resulting in: improved activity tolerance, improved functional independence, improved performance, improved safety Therapeutic Exercises Ankle Pumps: x10 B Hip Flexion: x10 B Skilled Intervention Provided: verbal cues, monitoring patient response with exercise, patient education For: muscle activation, number of repetitions, self-monitoring during activity Resulting in: efficient movement, improved independence with HEP, improved initiation, improved performance, improved safety Additional Treatment Details Pt reports hx of tachycardia bouts, reports she needs to sit down immediately with onset. Pt monitor was not working at time of evaluation, nurse notified after session. Worked with pt at [facility] LE functional strength with STS and side stepping. Pt presents with good tolerance to activities. Past Medical History: Diagnosis Date Cancer (HCC) Coronary artery disease Deep vein thrombosis (HCC) Disease of thyroid gland Hyperlipidemia Hypertension Renal disorder Past Surgical History: Procedure Laterality Date ABDOMINAL SURGERY CARDIAC CATHETERIZATION CHOLECYSTECTOMY COLON SURGERY For complete objective data, detailed plan of care and patient education refer to: PT Evaluation flowsheet, PT Evaluation and Treatment flowsheet, PT Treatment flowsheet, patient Plan of Care, Plan of Care progress note, and Patient Education. This note stands as the current Discharge Summary upon patient discharge from the hospital or completion of Physical Therapy Plan. documented in this [id number] Note* Plan of Care - Lauren Gomez RN - 08/18/2022 10:23 AM EST Problem: Actual or potential alteration in health Goal: Absence of healthcare acquired conditions Outcome: Completed Goal: Knowledge of Interdisciplinary Plan of Care Outcome: Completed Goal: Knowledge of Enviroment Outcome: Completed [id number] Miscellaneous Notes* Plan of Care - Lauren Gomez RN - 08/18/2022 10:23 AM EST Problem: Actual or potential alteration in health Goal: Absence of healthcare acquired conditions Outcome: Completed Goal: Knowledge of Interdisciplinary Plan of Care Outcome: Completed Goal: Knowledge of Enviroment Outcome: Completed * Plan of Care - Lauren Gomez RN - 08/17/2022 11:53 AM EST Problem: Actual or potential alteration in health Goal: Absence of healthcare acquired conditions Outcome: Met Goal: Knowledge of Enviroment Outcome: Met * Plan of Care - Gianna Daniels RN - 08/16/2022 9:29 AM EST Problem: Actual or potential alteration in health Goal: Absence of healthcare acquired conditions Outcome: Not Met Goal: Knowledge of Interdisciplinary Plan of Care Outcome: Not Met Goal: Knowledge of Enviroment Outcome: Not Met * Quick Note - Kera Armendariz RN - 08/15/2022 8:29 PM EST [facility] consult placed @2029 documented in this [id number] Hospital course Narrative* Ryan Lujan Jr., MD - 08/18/2022 10:00 AM EST [facility] DISCHARGE SUMMARY Cong Smith Account: [id number] Admitted: 08/15/2022 Discharge Date/Time: 08/18/22 11:51 AM Handoff to PCP Routine hospital follow up Clinical Summary Cong Smith is a 72 y.o. female with a history of AML, CAD, HTN, bronchiectasis who presented to [facility] for SOB and productive cough with recent diagnosis of cold at [facility]. In ED, she underwent evaluation with CXR and CT c/a/p which were not acute though positive for finding of dilated main pulmonary artery c/w pulmonary HTN. She was transferred to [facility] 08/15/2022 for further workup and evaluation. Bronchiectasis with acute exacerbation: presented with about 5 days SOB with productive cough with yellow sputum. No f/c at home. Follows with Dr. Moser ([facility] pulm). CXR and CT c/a/p in ED neg for acute findings. Obtain sputum cx. Empiric IV abx with azithromycin. Given dose of solumedrol in ED, transitioned to prednisone 08/15/22. Scheduled nebs with PRN albuterol. Improving. Completed 5 days of azithro/prednisone. F/u with pulm as outpatient. 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 In setting of above. Tx of bronchiectasis flare as above. weaned O2 to RA. Sheuses 1L nigthly at home. Abnormal CT: CT c/a/p in ED with dilation of main pulmonary arteries suggestive of underlying pulmonary HTN. TTE 06/05/2022 with EF 57 +-5% with normal RV size and function per [facility]where. F/u as outpatient. Dysuria: with increased urinary frequency. UA and culture negative. 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 Continued outpatient follow up Atrial fibrillation: per history. 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 Continued home Eliquis HTN: continued home medications, monitoring BP and adjusted PRN T2DM with Steroid-Induced Hyperglycemia: diet controlled. Started SSI. Hypothyroidism: continued home Synthroid Ostomy status: continued stoma and ostomy care, ET consulted Discharge Medications Discharge Medications New Medications Details azithromycin 500 MG tablet Commonly known as: ZITHROMAX Take 1 (one) tablet (500 mg total) by mouth at bedtime for 2 days . Quantity: 2 tablet benzonatate 100 MG capsule Commonly known as: TESSALON Take 1 (one) capsule (100 mg total) by mouth 3 (three) times a day for 7 days . Quantity: 20 capsule predniSONE 20 MG tablet Commonly known as: DELTASONE Start taking on: August 19, 2022 Take 2 (two) tablets (40 mg total) by mouth daily with breakfast for 1 day Start: 08/19/22. Quantity: 2 tablet Medications To Continue Details apixaban 5 mg Tab Commonly known as: ELIQUIS Take 1 (one) tablet (5 mg total) by mouth 2 (two) times a day . b complex vitamins capsule Take 1 (one) capsule by mouth daily . cholecalciferol (vitamin D3) 1,000 unit tablet Take 2 (two) tablets (2,000 Units total) by mouth daily . cyanocobalamin (vitamin B-12) 1,[address] under the tongue . esomeprazole 40 MG capsule Commonly known as: NEXIUM Take 40 mg by mouth . levothyroxine 112 MCG tablet Commonly known as: SYNTHROID, LEVOTHROID Take 1 (one) tablet (112 mcg total) by mouth once daily . metoprolol tartrate 25 MG tablet Commonly known as: LOPRESSOR Take 1 (one) tablet (25 mg total) by mouth daily . Physician(s) Family: Lidia Lopez MD, , Address: [address] [place] [address] / [place] [address] Follow Up: Lidia Lopez MD [address] [place], [place] [id number] Follow up Please followup in 1-2 weeks Additional Information: Patient seen and examined day of discharge. For more information regarding patient's care, including complete radiology reports, please contact [facility] at Patient instructions, including activity, were given to the patient/family at discharge. Please seethe After Visit Summary in the medical record for details. Time spent on discharge: > 30 minutes Completed by: Ryan Lujan Jr. on 08/18/22, 11:51 AM documented in this [id number] Miscellaneous Notes* Telephone Encounter - Simi Leary Ma - 08/17/2022 3:58 PM EST Completed and faxed back today * Telephone Encounter - Zayda Valero LPN - 08/14/2022 2:20 PM EST Rec'd and to pcp to completed. * Telephone Encounter - Shannon Brown LPN - 08/14/2022 1:12 PM EST Dayo from [facility] calling to see if office had received order that was faxed 08/08. Paper work is being faxed again today. * Telephone Encounter - Esmer Batista RN - 08/12/2022 11:15 AM EST Dayo with [facility] calls to verify that provider received detailed forms for ostomy supplies. If not already done: Orders for Supplies need faxed back to [phone]. Clinical notes need faxed to [phone]. Call back number for questions: [phone] ext: [phone]. Esmer Batista RN [facility]* Plan of Care - Lauren Gomez RN - 08/17/2022 11:53 AM EST Problem: Actual or potential alteration in health Goal: Absence of healthcare acquired conditions Outcome: Met Goal: Knowledge of Enviroment Outcome: Met [id number] Consult note* Aster Sue RN - 08/16/2022 11:11 AM EST Associated Order(s): IP CONSULT TO CARE MANAGEMENT Care Management Consult Note Date: 08/16/2022 Time: 11:11 AM Patient Name: Cong Smith Date of : 1950 Reason for Consult: Discharge Needs Discharge Plan: Home with , declines HHC PT OT or Pulmonary Rehab Discharging Transportation Plan: Transportation Type: Auto ( will provide transportation at DC) Discharge Plan Status: pending medical stability Assessment and Background Information: Living Arrangements: Spouse/significant other Support Systems: Spouse/significant other, Family members Assistance Needed: none Type of Residence: Private residence, Multi-level (stairs) Prior to Admission Home Care Services: Yes (in the past , not current) Patient expects to be discharged to:: home Does the patient need discharge transport arranged?: No Current Home Equipment: Nebulizer, Oxygen, Other (Comment) ( states we have all equipment that is needed) CM met with patient and her at bedside to complete consult for DC needs. Patient is alert and oriented x 4, [place], but agreeable to CM visit. CM reviewed medical record, introduced self and role of CM within multidisciplinary team. OT at bedside of initial interview. ? Living Environment / Support : Patient lives with spouse in a multi level home with many stairs, patient states that she is able to navigate stairs Patient is independent needs minimal assistance in the home. Patient is able to afford utilities. Home Health / DME: Patient has used HHC in the past and declines additional therapies post hospitalization. Patient statesWhat I really need ids for someone to walk me briefly discussed pulmonary rehabilitation and patient declines NEW DME:needs none, states that they have all needed equipment at home. Patient uses [facility] at night and [facility] is the last provider that they can remember using. PCP Dr Lidia Lopez MD and patient is active with care. Patient states that she would like Dr Moser at [facility] to receive correspondences, however she is not rin of the first name of MD. . Health Insurance / RX / Financial Needs: Confirmed health and prescription coverage. Patient's preferred pharmacy updated on EMR ([facility]) . Patient denies financial hardship related to medical/prescription co-pays. Source of income is pension. Patient is not linked with community resources. Transportation: Patient is able to drive a vehicle. [facility] Patient was appreciative of CM visit and denied additional needs at this time. CM/SW will continue to follow along with multidisciplinary team for ongoing assessments and planning. NO NEEDS IDENTIFIED AT THIS TIME, PLEASE RE CONSULT CM FOR ADDITIONAL NEEDS Aster CAAL,RN,CCM double cut sawyer Weekend -Contingent Utilization Management Secure Chat for non urgent issuse Vocera for urgent issues [id number] Consult note* Ashanti Mahajan, OT - 08/16/2022 11:01 AM EST Occupational Therapy OCCUPATIONAL THERAPY EVALUATION Skilled Therapy Needs After Discharge Are Skilled Therapy Services Needed After Discharge: Yes Intensity of Skilled Therapy: 2-3 days per week Anticipated Duration of Skilled Therapy: Duration 7 - 10 days DME Recommendation: None Rehab Potential: Good, For goals Outcomes Measures Prior Function Daily Activity Raw Score: 24 Prior Function Daily Activity % Impaired: 0% AM-PAC Daily Activity Raw Score: 21 AM-PAC Daily Activity % Impaired: 32.79% Occupational Therapy Assessment The patient's current functional participation deficits are bathing, toileting, LE dressing, functional mobility. This reduced independence will limit their life roles of premorbid level individual. The patient's co morbidities do affect patient performance in the above activities and roles. The performance deficits are a result of musculoskeletal, cardiopulmonary impairment(s) in generalized debility including acitvity tolerance, balance, strength, insight, and knowledge deficit. The patient's family / caregiver support is a hot kettle tender, home setup is a barrier for return to prior level of function. 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 During the assessment, minimal to moderate modification of task was required and several treatment options were identified in the plan of care. This consultation required extensive review of the medical and therapy history. Activity Tolerance Therapy Precautions General Rehab Precautions: Fall risk Cognition Arousal/Alertness: Appropriate responses to stimuli Orientation Level: Oriented X4, With cues Executive functioning: Min impairment, Insight Attention: Attends to quiet environment Hearing Status: Hard of hearing, Hearing aide, Right ear, Left ear Social Interaction: Cooperative ADL Grooming: Stand by assist (standing without UE support x ~4 minutes) Lower Body Dressing: Stand by assist IADL Bed Mobility Functional Transfers Sit to Stand: Stand by assist Lateral Transfers: Stand by assist Additional Assessment Details Home Living Obtained Home Living and PLOF info from: Patient, Patient s family member Prior Level of Function Past Medical History: Diagnosis Date Cancer (HCC) Coronary artery disease Deep vein thrombosis (HCC) Disease of thyroid gland Hyperlipidemia Hypertension Renal disorder Past Surgical History: Procedure Laterality Date ABDOMINAL SURGERY CARDIAC CATHETERIZATION CHOLECYSTECTOMY COLON SURGERY For complete objective data, detailed plan of care and patient education refer to: OT Evaluation flowsheet, OT Evaluation and Treatment flowsheet, OT Treatment flowsheet, patient Plan of Care, Plan of Care progress note, and Patient Education. This note stands as the current Discharge Summary upon patient discharge from the hospital or completion of Occupational Therapy Plan of Care. [id number] Consult note* Pamela Mcdaniel, PT - 08/16/2022 10:18 AM EST Physical Therapy PHYSICAL THERAPY EVALUATION and TREATMENT NOTE PHYSICAL THERAPY EVALUATION Skilled Therapy Needs After Discharge Anticipate Resolution of Current Assessment Limitations Including: Mechanical Barriers Are Skilled Therapy Services Needed After Discharge: Yes Intensity of Skilled Therapy: 2-3 days per week Anticipated Duration of Skilled Therapy: Duration 10 - 30 days DME Recommendation: None (pt has recommended DME) Rehab Potential: Good, For goals Outcomes Measures Prior Function - Basic Mobility Raw Score: 24 Points Prior Function - Basic Mobility % Impaired: 0% AM-PAC Basic Mobility Raw Score: 16 Points AM-PAC Basic Mobility % Impaired: 47.12% Physical Therapy Assessment History: The following factors influence the patient's participation in the PT plan of care: Personal Factors: Limited Baseline Mobility, Social Barriers, Body Habitus Environmental Factors: Multi-level home, Bedroom/bathroom on 2nd floor The following co-morbidities (from this admission or prior) influence the patient's participation in this plan of care: Patient presents to [facility] with Bronchietasis. PMH: A-fib, HTN, T2DM, ostomy. Number of History elements affecting this patient's PT plan of care: 3 or more Examination of Body Systems: The patient presents with: Musculoskeletal impairments: Strength, Functional Endurance Neurologic Impairments: Balance, Hearing Cardiopulmonary Impairments: Activity Tolerance, Heart Rate Control with Activity. These impairments result in limitations of Gait, Functional Transfers, Stair- Climbing, Safety, Activity Tolerance, Safety Awareness. These impairments result in restrictions of Household mobility, Community mobility, Leisure activities. Number of Body Systems elements affecting this patient's PT plan of care: 3 or more. Clinical Presentation: The patient's clinical presentation for this PT evaluation is evolving with changing characteristics as evidenced by current PT documentation. Activity Tolerance Activity Tolerance: Tolerates 20 - 30 min activity with multiple rests Therapy Precautions Orthotic Devices: No General Rehab Precautions: Fall risk Balance Assessment Sitting Balance - Static: Stand by assist Sitting Balance - Dynamic: Stand by assist Standing Balance - Static: Contact guard assist Vulcanizer - Standing Static: wheeled walker Standing Balance - Dynamic: Contact guard assist Vulcanizer - Standing Dynamic: wheeled walker Bed Mobility Rolling: Stand by assist Supine to Sit: Stand by assist Sit to Supine: Stand by assist Vulcanizer: bedrails Transfers Sit to Stand: Contact guard assist, Stand by assist (completed 2x10 STS with rest break of 2 minutes) Gait/Locomotion Gait Assistance: (Did not attempt this date due to monitor not working.) Home Living Obtained Home Living and PLOF info from: Patient, Patient s family member Lives With: Spouse Type of Home: House Home Layout: Multi-level (bed and bath in basement- down ~12 steps (3rd floor down), bath on main floor. Middle level is rec room where she spends her time.) Steps to enter home: Ramped entrance Bathroom Shower/Tub: Walk-in shower Bathroom Toilet: Standard Bathroom Equipment: Grab bars in shower, Shower chair, Tub transfer bench, Grab bars around toilet,Bedside commode Mobility Equipment: Cane, Wheeled walker, Wheelchair - manual, Hospital bed Prior Level of Function Level of [place] - Transfers/Ambulation/Mobility: Independent with functional transfers, Independent with household ambulation, Independent with community ambulation Level of [place] - ADLs: Independent with ADLs, except Dressing: Minimal assist (with LE) Level of [place] - Homemaking: Needs assistance ( does all homemaking tasks) Driving: Patient drives Vocational: Retired Leisure: knitting, reading, volunteer PHYSICAL THERAPY TREATMENT NOTE Total Treatment Time (Total Session Time): 39 Minutes Total Timed Code Treatment Minutes: 15 Minutes Neuromuscular Reeducation Sitting Balance Treatment: weight shifting left, weight shifting right, upright gaze, decreased UE support Skilled Intervention Provided: verbal cues, patient education For: attention to task, efficient movement, safe use of AD and/or equipment Resulting in: improved activity tolerance, improved functional independence, improved motor control, improved safety, improved performance Standing Balance Treatment: weight shifting left, weight shifting right, decreased UE support, upright gaze, stepping forward, stepping backward, marching in place, side stepping (completed 5 side stepping laps with no FWW) Skilled Intervention Provided: verbal cues, environmental setup/modification, patient education For: efficient movement, initiation of tasks, safe use of AD and/or equipment, sequencing of movement, trunk control Resulting in: improved activity tolerance, improved functional independence, improved motor control, improved performance, improved safety Therapeutic Activities Bed Mobility Skilled Intervention Provided: verbal cues, facilitation, monitoring patient response with activity, provided step by step instructions, patient education For: UE positioning, attention to task, breathing techniques, logroll technique, safe use of bedrails and/or equipment Resulting in: improved activity tolerance, improved functional independence, improved performance, increased initiation in mobility task(s), improved safety Transfers Skilled Intervention Provided: verbal cues, monitoring patient response with activity, patient education For: breathing techniques, controlled descent, efficient movement, proper body mechanics, safety during functional tasks Resulting in: improved activity tolerance, improved functional independence, improved performance, improved safety Therapeutic Exercises Ankle Pumps: x10 B Hip Flexion: x10 B Skilled Intervention Provided: verbal cues, monitoring patient response with exercise, patient education For: muscle activation, number of repetitions, self-monitoring during activity Resulting in: efficient movement, improved independence with HEP, improved initiation, improved performance, improved safety Additional Treatment Details Pt reports hx of tachycardia bouts, reports she needs to sit down immediately with onset. Pt monitor was not working at time of evaluation, nurse notified after session. Worked with pt at [facility] workingon LE functional strength with STS and side stepping. Pt presents with good tolerance to activities. Past Medical History: Diagnosis Date Cancer (HCC) Coronary artery disease Deep vein thrombosis (HCC) Disease of thyroid gland Hyperlipidemia Hypertension Renal disorder Past Surgical History: Procedure Laterality Date ABDOMINAL SURGERY CARDIAC CATHETERIZATION CHOLECYSTECTOMY COLON SURGERY For complete objective data, detailed plan of care and patient education refer to: PT Evaluation flowsheet, PT Evaluation and Treatment flowsheet, PT Treatment flowsheet, patient Plan of Care, Plan of Care progress note, and Patient Education. This note stands as the current Discharge Summary upon patient discharge from the hospital or completion of Physical Therapy Plan. [id number] Note* Plan of Care - Gianna Daniels RN - 08/16/2022 9:29 AM EST Problem: Actual or potential alteration in health Goal: Absence of healthcare acquired conditions Outcome: Not Met Goal: Knowledge of Interdisciplinary Plan of Care Outcome: Not Met Goal: Knowledge of Enviroment Outcome: Not Met [id number] History and physical note* Dona Olivas, DO - 08/15/2022 9:14 PM EST [facility] History and Physical Note 08/15/22 Cong Smith 1950 [id number] Assessment/Plan: Cong Smith is a 72 y.o. female with a history of AML, CAD, HTN, bronchiectasis who presented to [facility] for SOB and productive cough with recent diagnosis of cold at [facility]. In ED, she underwent evaluation with CXR and CT c/a/p which were not acute though positive for finding of dilated main pulmonary artery c/w pulmonary HTN. She was transferred to [facility] 08/15/2022 for further workup and evaluation. Bronchiectasis with acute exacerbation: presented with about 5 days SOB with productive cough with yellow sputum. No f/c at home. Follows with Dr. Moser ([facility] pulm). CXR and CT c/a/p in ED neg for acute findings. Obtain sputum cx. Empiric IV abx with azithromycin. Given dose of solumedrol in ED, transitioned to prednisone 08/15/2022. Scheduled nebs with PRN albuterol. 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 In setting of above. Tx of bronchiectasis flare as above, weaning O2 as able Abnormal CT: CT c/a/p in ED with dilation of main pulmonary arteries suggestive of underlying pulmonary HTN. TTE 06/05/2022 with EF 57 +-5% with normal RV size and function per [facility]where. 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 Continued outpatient follow up Atrial fibrillation: per history. 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 Continued home Eliquis HTN: continued home medications, monitoring BP and adjusted PRN T2DM: per history, though no longer on medications for this at home. Continued outpatient follow up Hypothyroidism: continued home Synthroid on admit Ostomy status: continued stoma and ostomy care, ET consulted per protocol Code status: full code, confirmed on admit DVT Prophylaxis: Eliquis Admitted with these risk variables:None. Please see assessment and plan for further details. Current living situation: home with Expected Disposition: likely same Estimated discharge date: TBD Chief Complaint: SOB, cough History of Present Illness: Cong Smith is a 72 y.o. female with a history of AML, CAD, HTN, bronchiectasis who presented to [facility] for SOB and productive cough with recent diagnosis of cold at [facility]. Says that her symptomsbegan this past Wednesday with increased SOB and productive cough with yellow sputum. Denied any hemoptysis. Denied any chest pain. Went to [place] urgent care on Wednesday where she was told she had a cold and was sent home with recommendation for supportive care. Says that she has continue to have SOB and productive cough that was not getting any better. She was afraid she was getting an acute flare up of her bronchiectasis - says this feels like a flare to her. She says her last flare was in April 2022. She endorses congestion and wheeze as well. No GI symptoms. No weight gain or swelling in her legs. In ED, she underwent evaluation with CXR and CT c/a/p which were not acute though positive for finding of dilated main pulmonary artery c/w pulmonary HTN. She was transferred to [facility] 08/15/2022 for further workup and evaluation. ROS: 10 systems were reviewed and negative, except as noted above. Past Medical, Surgical, Social, Family History: Past Medical History: Diagnosis Date Cancer (HCC) Coronary artery disease Deep vein thrombosis (HCC) Disease of thyroid gland Hyperlipidemia Hypertension Renal disorder Past Surgical History: Procedure Laterality Date ABDOMINAL SURGERY CARDIAC CATHETERIZATION CHOLECYSTECTOMY COLON SURGERY Social History Socioeconomic History Marital status: Tobacco Use Smoking status: Passive Smoke Exposure - Never Smoker Smokeless tobacco: Never Vaping Use Vaping Use: Never used Substance and Sexual Activity Alcohol use: No Drug use: No No family history on file. Home Medications: Outpatient Medications as of 08/15/2022 Medication Sig acyclovir (ZOVIRAX) 400 MG tablet Take 400 mg by mouth . apixaban (ELIQUIS) 5 mg Tab Take 5 mg by mouth . chlorhexidine (HIBICLENS) 4 % external liquid Wash ulceration with dilute (0.4%) chlorhexadine per written instructions provided. ergocalciferol (ERGOCALCIFEROL) 50,000 unit capsule Take 1 capsule PO every week. esomeprazole (NEXIUM) 40 MG capsule Take 40 mg by mouth . levothyroxine (SYNTHROID, LEVOTHROID) 137 MCG tablet Take 137 mcg by mouth . metoprolol tartrate (LOPRESSOR) 25 MG tablet Take 25 mg by mouth . nystatin (MYCOSTATIN) powder Apply 1 application topically . oxyCODONE-acetaminophen (PERCOCET) 5-325 mg per tablet EVERY 6 HOURS NEEDED PRN For Pain predniSONE (DELTASONE) 50 MG tablet Take 1 tablet 13 hours, 7 hours and [address] scan. sucralfate (CARAFATE) 1 gram tablet Take 1 g by mouth . teriparatide (FORTEO) 20 mcg/dose - 600 mcg/2.4 mL injection INJECT 20 MCG (0.08 ML) UNDER THE SKINONCE A DAY (DISCARD 28 DAYS AFTER INITIAL USE) zolpidem (AMBIEN) 5 MG tablet Take 5 mg by mouth . Physical Exam: BP 114/75 (BP Location: Left arm, Patient Position: Lying) Pulse 89 Temp 98 F (36.7 C) (Oral) SpO2 95% General: NAD Eyes: no conjunctival injection ENT: oral mucosa moist Cardiovascular: Regular rate and rhythm Respiratory: few scattered rhonchi, no rales. Breathing non labored Gastrointestinal: Soft, non tender, non distended, bowel sounds regular Genitourinary: no suprapubic tenderness Musculoskeletal: No edema in B/L LE Skin: warm, dry Neuro: Alert, awake, FRANK independently Psych: Mood appropriate. Labs, Imaging, and Studies reviewed: Results from last 7 days Lab Units 08/15/22 1332 WBC K/mcL 13.22* HGB g/dL 15.3 HCT % 46.9* PLT K/mcL 235 Results from last 7 days Lab Units 08/15/22 1411 POC BUN mg/dL 16 POC CREATININE (EPOC) mg/dL 1.00 Results from last 7 days Lab Units 08/15/22 1418 POCINR 1.6* [id number] History and physical note* Dona Olivas DO - 08/15/2022 9:14 PM EST [facility]/15/22 Cong Smith 1950 [id number] Assessment/Plan: Cong Smith is a 72 y.o. female with a history of AML, CAD, HTN, bronchiectasis who presented to [facility] for SOB and productive cough with recent diagnosis of cold at [facility]. In ED, she underwent evaluation with CXR and CT c/a/p which were not acute though positive for finding of dilated main pulmonary artery c/w pulmonary HTN. She was transferred to [facility] 08/15/2022 for further workup and evaluation. Bronchiectasis with acute exacerbation: presented with about 5 days SOB with productive cough with yellow sputum. No f/c at home. Follows with Dr. Moser ([facility] pulm). CXR and CT c/a/p in ED neg for acute findings. Obtain sputum cx. Empiric IV abx with azithromycin. Given dose of solumedrol in ED, transitioned to prednisone 08/15/2022. Scheduled nebs with PRN albuterol. 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 In setting of above. Tx of bronchiectasis flare as above, weaning O2 as able Abnormal CT: CT c/a/p in ED with dilation of main pulmonary arteries suggestive of underlying pulmonary HTN. TTE 06/05/2022 with EF 57 +-5% with normal RV size and function per CareEverywhere. 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 Continued outpatient follow up Atrial fibrillation: per history. 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 Continued home Eliquis HTN: continued home medications, monitoring BP and adjusted PRN T2DM: per history, though no longer on medications for this at home. Continued outpatient follow up Hypothyroidism: continued home Synthroid on admit Ostomy status: continued stoma and ostomy care, ET consulted per protocol Code status: full code, confirmed on admit DVT Prophylaxis: Eliquis Admitted with these risk variables:None. Please see assessment and plan for further details. Current living situation: home with Expected Disposition: likely same Estimated discharge date: TBD Chief Complaint: SOB, cough History of Present Illness: Cong Smith is a 72 y.o. female with a history of AML, CAD, HTN, bronchiectasis who presented to [facility] for SOB and productive cough with recent diagnosis of cold at [facility]. Says that her symptomsbegan this past Wednesday with increased SOB and productive cough with yellow sputum. Denied any hemoptysis. Denied any chest pain. Went to [place] urgent care on Wednesday where she was told she had a cold and was sent home with recommendation for supportive care. Says that she has continue to have SOB and productive cough that was not getting any better. She was afraid she was getting an acute flare up of her bronchiectasis - says this feels like a flare to her. She says her last flare was in April 2022. She endorses congestion and wheeze as well. No GI symptoms. No weight gain or swelling in her legs. In ED, she underwent evaluation with CXR and CT c/a/p which were not acute though positive for finding of dilated main pulmonary artery c/w pulmonary HTN. She was transferred to [facility] 08/15/2022 for further workup and evaluation. ROS: 10 systems were reviewed and negative, except as noted above. Past Medical, Surgical, Social, Family History: Past Medical History: Diagnosis Date Cancer (HCC) Coronary artery disease Deep vein thrombosis (HCC) Disease of thyroid gland Hyperlipidemia Hypertension Renal disorder Past Surgical History: Procedure Laterality Date ABDOMINAL SURGERY CARDIAC CATHETERIZATION CHOLECYSTECTOMY COLON SURGERY Social History Socioeconomic History Marital status: Tobacco Use Smoking status: Passive Smoke Exposure - Never Smoker Smokeless tobacco: Never Vaping Use Vaping Use: Never used Substance and Sexual Activity Alcohol use: No Drug use: No No family history on file. Home Medications: Outpatient Medications as of 08/15/2022 Medication Sig acyclovir (ZOVIRAX) 400 MG tablet Take 400 mg by mouth . apixaban (ELIQUIS) 5 mg Tab Take 5 mg by mouth . chlorhexidine (HIBICLENS) 4 % external liquid Wash ulceration with dilute (0.4%) chlorhexadine per written instructions provided. ergocalciferol (ERGOCALCIFEROL) 50,000 unit capsule Take 1 capsule PO every week. esomeprazole (NEXIUM) 40 MG capsule Take 40 mg by mouth . levothyroxine (SYNTHROID, LEVOTHROID) 137 MCG tablet Take 137 mcg by mouth . metoprolol tartrate (LOPRESSOR) 25 MG tablet Take 25 mg by mouth . nystatin (MYCOSTATIN) powder Apply 1 application topically . oxyCODONE-acetaminophen (PERCOCET) 5-325 mg per tablet EVERY 6 HOURS NEEDED PRN For Pain predniSONE (DELTASONE) 50 MG tablet Take 1 tablet 13 hours, 7 hours and [address] scan. sucralfate (CARAFATE) 1 gram tablet Take 1 g by mouth . teriparatide (FORTEO) 20 mcg/dose - 600 mcg/2.4 mL injection INJECT 20 MCG (0.08 ML) UNDER THE SKINONCE A DAY (DISCARD 28 DAYS AFTER INITIAL USE) zolpidem (AMBIEN) 5 MG tablet Take 5 mg by mouth . Physical Exam: BP 114/75 (BP Location: Left arm, Patient Position: Lying) Pulse 89 Temp 98 F (36.7 C) (Oral) SpO2 95% General: NAD Eyes: no conjunctival injection ENT: oral mucosa moist Cardiovascular: Regular rate and rhythm Respiratory: few scattered rhonchi, no rales. Breathing non labored Gastrointestinal: Soft, non tender, non distended, bowel sounds regular Genitourinary: no suprapubic tenderness Musculoskeletal: No edema in B/L LE Skin: warm, dry Neuro: Alert, awake, FRANK independently Psych: Mood appropriate. Labs, Imaging, and Studies reviewed: Results from last 7 days Lab Units 08/15/22 1332 WBC K/mcL 13.22* HGB g/dL 15.3 HCT % 46.9* PLT K/mcL 235 Results from last 7 days Lab Units 08/15/22 1411 POC BUN mg/dL 16 POC CREATININE (EPOC) mg/dL 1.00 Results from last 7 days Lab Units 08/15/22 1418 POCINR 1.6* documented in this [id number] Note* Quick Note - Kera Armendariz RN - 08/15/2022 8:29 PM EST [facility] consult placed @2029 [id number] Emergency department Note* Mary Daley RN - 08/15/2022 7:00 PM EST Patient transported to [facility] by Life Support Team. Receiving unit notified of patient's ETA. Vital signs: BP 134/63, HR 90, RR 24, Pulse Ox 92% on 2L/NC/Min. Chief complaint of Hypoxia. Patient does have patent IV access. Patient was on conveyor monitor showing SR during transport. Patient will be transported to room [facility] on arrival. [id number] Emergency department Note* Mary Daley RN - 08/15/2022 7:00 PM EST Patient transported to [facility] by Life Support Team. Receiving unit notified of patient's ETA. Vital signs: BP 134/63, HR 90, RR 24, Pulse Ox 92% on 2L/NC/Min. Chief complaint of Hypoxia. Patient does have patent IV access. Patient was on conveyor monitor showing SR during transport. Patient will be transported to room 6209-1 on arrival. documented in this [id number] History of Present illness Narrative* Shaina Rodríguez RN - 07/27/2022 11:23 AM EST ACM GREY RN Action/FYI: Patient identified by name and date of . Patient Attributed To: E Payer: [employer] Reason for review or outreach: Chart Review Chart Review Details: Payer Request [employer] Priority Utilization in past 12 months: # Occurrences Date Last Occurrence Hospital Admission 0 N/A Hospital Observation 0 N/A ED 4 06/18/2022 SNF / Acute Rehab / LTAC 0 N/A Summary / Findings: ED visits for abdominal pain possible URINARY TRACT INFECTION. Gastroenteritis, wheezing and shortness of breath Action Taken: Data submitted to Payer Contact made with patient: No, Chart review only. Signature: Shaina Rodríguez RN documented in this encounterSum[facility]22 Miscellaneous Notes* Telephone Encounter - Faith Seth - 07/27/2022 10:37 AM EST Patient [employer] message requesting the following refill. Requested Prescriptions Pending Prescriptions Disp Refills albuterol (PROVENTIL) 2.5 mg /3 mL (0.083 %) nebulizer solution Sig: Use 3 mL via nebulizer three times daily as needed for wheezing/shortness of breath. Inhale over 5-15 minutes Patient last appointment: 06/19/[address] [place] [address] Moser Patient Phone numbers: [phone] (home) Request is for script(s) to be escript to pharmacy. Faith Seth documented in this encounterSumma Health [facility]11-07-2022 Miscellaneous Notes* Telephone Encounter - Rosalia Peters PA-C - 07/27/2022 8:47 AM EST Order sent * Telephone Encounter - Nevaeh Virgen LPN - 07/27/2022 8:11 AM EST Patient phones requesting refills as follows: Requested Prescriptions Pending Prescriptions Disp Refills mometasone (NASONEX) 50 mcg/actuation nasal spray 17 g 3 Sig: Use 2 Sprays in the nose once daily. Rinse mouth after use. Please review and advise. Nevaeh Virgen LPN documented in this encounterSumma Health [facility]10-03-2022 Miscellaneous Notes* Telephone Encounter - Maia Swanson RN - 06/22/2022 3:24 PM EDT Call to pt, LVM with spouse of below results/recommendations. Maia Swanson RN * Telephone Encounter - Maia Swanson RN - 06/22/2022 3:22 PM EDT ----- Message from Nidia Green APRN.LEAD HOUSEKEEPER sent at 06/22/2022 11:40 AM EDT ----- Please call patient and notify her of results. Monitor was with 1 short episode of VT and 1 short episode of SVT. Otherwise no significant prolonged arrhythmia. Would continue metoprolol. Thank you! documented in this encounterSumma Health W[facility]10-03-2022 Miscellaneous Notes* Telephone Encounter - Stephanie Lagos - 06/22/2022 9:06 AM EDT Scheduled port draw for 06/25/22. Stephanie Lagos * Telephone Encounter - Pamela Kaur LPN - 06/22/2022 8:24 AM EDT Spoke with pts. ,given information. Would like to have labs done in the next couple weeks. PSS please put on port schedule to have labs done. Dr. Baez has already placed the orders. Pt. Will look at her my chart to see when scheduled and if that doesn't suit she will call office to reschedule Pamela Kaur LPN * Telephone Encounter - Clare Baez DO - 06/21/2022 12:36 PM EDT Please let her know that Conchis the truck dock material mover suggested I check a folate level on her. I also put on some additional vitamin and mineral tests to see if she has any deficiencies of those. Can be done when she is here for next port flush or sooner depending on when she would like to come in. Clare Baez DO documented in this encounterSumma Health W[facility]10-01-2022 History of Present illness Narrative* Sg Julien MD - 06/20/2022 11:10 PM EDT Diagnosis: AML status post allogeneic hematopoietic cell transplant KPS: 70% ECOG PS: 1 S: The patient has been following with her local oncologist, Dr. Baez, and her other physicians for the remainder of her nontransplant medical care. She was found to have a right lower extremity DVTin April 2022 and after initially receiving heparin she was transitioned to Eliquis. The patient also reportedly was treated for a UTI. At the time of her visit she noted having some rhinorrhea. She also had some prior diarrhea throughher ileostomy that resolved a couple days ago. She denied having other new complaints. O: REVIEW OF SYSTEMS: Constitutional: No fevers, chills, night sweats, or weight loss. HEENT: Rhinorrhea. Neck: No pain. Pulmonary: No shortness of breath or coughing. Cardiac: No chest pain. GI: No nausea, vomiting; resolution of prior diarrhea from the ileostomy; no blood loss. Back: No pain. Lymphatics: No palpable lymphadenopathy. : No hematuria or dysuria. Extremities: No edema. Neurologic:unremarkable. Skin: No rash. PHYSICAL EXAMINATION: GENERAL: Alert in no apparent distress. HEENT: Atraumatic, no epistaxis and white exudate on tongue consistent with thrush but no other oral cavity ulcerations or lesions NECK: Supple without lymphadenopathy. LUNGS: Clear to auscultation. CARDIAC: Regular rate and rhythm. ABDOMEN: Active bowel sounds, soft, nondistended, nontender, without appreciable hepatosplenomegaly; ileostomy in place. BACK: No tenderness. LYMPHATICS: No appreciable lymphadenopathy. EXTREMITIES: No edema. NEUROLOGIC: Alert and oriented, without gross focal deficits. SKIN: No rash. Laboratory data: Reviewed in [facility] Impression/plan: (The following summary was copied from my note on 12/01/2021) She was diagnosed with FLT3 ITD+/NPM1+ AML after presenting with chest pain. She received 7+3 and eltrombopag (CASE 1493) for induction. Her induction course was complicated by chest pain of unclear etiology and a skin rash likely due to cytarabine or zosyn. She had a UTI (E. coli) as well as notedpulmonary nodules on CT scan chest 07/13/2014. She was treated with posaconazole on 07/18/2014 since lesions appeared while on voriconazole. Discharged from [facility] 11/03/2014 following cycle #3 HiDAC. 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 Did very well for first 100 days and was tolerating steroid taper. Several days after going home, developed nausea/vomiting. Culminated in total colectomy. Per discharge summary 08/20/2015: Ms. Smith is a 65 year old female who presents from [facility] with positive V/Q scan c/w intermediate risk of pulmonary embolism. 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 She presented to [facility] 08/06 with chest pain. Her pain is described as left and right sided with left sided shoulder pain. Some dyspnea that she attributes to pain not difficulty getting breath in. She denies radiation to her jaw or back, no diaphoresis, no heaviness. She has an allergy to iodine and omnipaque so it was not possible to do a CTPE for she had a V/Q scan which showed intermediate probability for PE. While at [facility] Dr. Welch from oncology saw the patient and had no further recs. Pulmonary saw the patient as well and had no further recs. Cardiology evaluated the patient and felt that her troponin elevation is most likely secondary to her PE which was of high suspicion given immobility and malignancy. He suggested aspirin, continue beta neda, hold statin, noted chronic RBBB. Troponins were 0.098 and 0.121. On admission here she is HDS, conversant, some residual left shoulder pain but improved overall, nofevers, chills, night sweats and limited SOB. No diarrhea, dysuria, cough, headaches. Last two hospitalizations: 06/04-06/19 Developed E. Coli bacteriemia and was treated with a full course of meropenem. She resides at [facility]. 06/19-07/10 Recently admitted where she developed pneumatosis coli and was taken to surgery where she got a subtotal colectomy with end ileostomy. Had a full course of CMV treatment with ganciclovir, followed by ID. Hospital Course: Mrs Smith was admitted to the MICU and placed on a heparin drip for suspected pulmonary embolism. CT scan with PE protocol was negative for pulmonary embolism and the heparin drip wasstopped. Once stabilized she was transferred to the BMT unit. [place] U/A and urine culture showeda UTI d/t a multi resistant E.Coli which was treatet with a week course of IV cetriaxone. Her hospital course was further complicated by atrial fibrillation with rapid ventricular response. This required transfer to cardiology ICU for continuous infusion amiodarone for hrt rate control. Her Coreg and norvasc was stopped due to low blood pressure. She was transitioned to oral Amiodarone, and her multiple medications were adjusted for interactions i.e ppx cipro and posa were dc'd. PT/OT recommended SNF upon discharge, final placement arrangements were made and she was transferred to [facility] Underwent ileoscopy on 08/17/2018 for potential GI bleed/GVHD. At approximately 28 cm proximal to the stoma one semi-pedunculated nonbleeding polyp was identified. It was 4 mm in diameter. Biopsies were obtained. Otherwise the examined portion of the ileum was normal. Pathology: 1. Ileum, biopsy (A) - Small intestinal mucosa with architectural distortion and occasional apoptotic bodies. See comment. 2. Ileum polyp, biopsy (B) - Small intestinal mucosa with architectural distortion and pyloric gland metaplasia, see comment. COMMENT The patient's history of gosig-nvwjim-esef disease (GVHD) is noted. In the current specimen, only occasional apoptotic bodies are present, and do not meet our threshold for a diagnosis of GVHD (greater than 1 apoptotic body per piece of tissue). However, given their presence, some component of GVHDactivity cannot be entirely ruled out. Both biopsies show evidence of chronic mucosal injury, possibly from prior GVHD. Chronic infection,chronic ischemia and chronic drug/medication injury could also produce these histologic features. An immunostain for CMV will be obtained and the results will be reported as an addendum. EGD on 08/31/2018. She was observed to have localized, moderate inflammation characterized by erosions, erythema and friability as well as serpentine ulcerations in the gastric antrum. Biopsies were obtained. The examined duodenum was normal. The lower third and middle third of the esophagus were both normal. Patient was advised to use sucralfate in addition to her proton pump inhibitor. Pathology: 1. Duodenum, biopsy (A) - Duodenal mucosa with minimal crypt apoptosis. 2. Antrum, biopsy (B) - Antral mucosa with chronic active inflammation and features of erosion. - See comment. 3. Esophagogastric junction, biopsy (C) - Reactive squamous mucosa and inflamed cardiac mucosa. - No evidence of intestinal metaplasia or dysplasia. 4. Mid esophagus, biopsy (D) - Mildly reactive squamous mucosa with rare intraepithelial eosinophils (up to 2 eosinophils in a single high power field). COMMENT The level of apoptotic activity seen the duodenum biopsy (part A) is insufficient to warrant a diagnosis of GVHD. H. pylori and CMV immunostains performed on the antrum biopsy (part B) to evaluate the chronic active inflammation are both negative. Underwent left hip replacement in January 2019. In April 2022 the patient had been evaluated by gynecology for vaginal and vulvar pain. She had continued on clobetasol Monistat without any relief. She was subsequently evaluated by her primary care physician and was having increasing lower extremity pain. She was directed to the [facility] ED and reportedly a CT scan demonstrated no etiology for the pain. Since this had furtherworsened she presented to [facility] on 05/18. A duplex ultrasound of her right lower extremity showed an acute DVT in the right distal external iliac vein, right common femoral vein, right deep femoral vein and right posterior tibial vein as well as in the right greater saphenous vein. She was started on Eliquis after initially receiving heparin. Transplant Summary: Date of transplant: 11/28/14 Protocol(s):3131, 1202 Preparative regimen: bu/flu Donor: NMDP HLA: complete 04/27 match Stem cell source: peripheral Total nucleated cell dose (x10e8/kg): 18.03 CD34 cell dose (x10e6/kg): 5.77 GVHD prophlaxis: tacrolimus -> sirolimus Donor / Recipient ABO: O+/A+ Minor ABO Incompatibility present? Yes Donor / Recipient CMV: +/+ Laboratory data: Reviewed in [facility] Chronic GVHD Flowsheet Assessment Chronic GVHD Assessment 06/11/2022 12/01/2021 10/31/2020 Karnofsky Score 70 70 90 ECOG Score 1 1 0 Has chronic GVHD developed since the last entry? No No No Is there persistence of chronic GVHD since the last entry? Unknown Unknown Yes Comment Prior dry eyes controlled with current therapy per ophthalmology - - Biopsy Performed? No No No Skin staging? - - No Mouth staging? - - No Eyes staging? - - Yes GI tract staging? - - No Liver staging? - - No Lung staging? - - No Joint and fascia staging? - - No Other Organ Involvement Or Features? - - No Keratoconjunctivitis sicca (KCS) confirmed by opthamologist? - - Yes Is the above attributable ENTIRELY to a non-GVHD cause? - - No Was a formal genital tract exam performed? 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 - Given her mild lymphocytosis she previously had flow cytometric analysis of the peripheral blood that was negative for a lymphoproliferative disorder or clonal T-cell expansion. In addition her EBVand CMV DNA detection test results were negative Chronic GVHD - History of oral, ocular, liver, vaginal, and GI GVHD - has persistent stable ocular symptoms (most likely burnt out GVHD) -Continue local therapy per ophthalmology recommendations -No signs of a GVHD flare Immunosuppression - Continue prophylaxis acyclovir Left total hip arthroplasty for avascular necrosis -No complaints currently; may follow-up in orthopedics as clinically indicated Gastroesophageal reflux disease without esophagitis - Continue Nexium Essential hypertension -Follow blood pressure under the care of her local provider Osteoporosis -Previously stopped Forteo and calcium/vitamin D due to hypercalcemia in the past - Continue follow-up with Dr Lopez. H/o Provoked DVT in 2016 - Continues on Eliquis, also s/p IVC filter placement at that time. - Also, has ?? History of A-fib, which is another indication for anticoagulation. 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 If they have further questions or problems he may contact me, the BMT office or one of her other physicians. She may continue to follow with her other physicians for the remainder of her nontransplant medical care. Sg Julien MD CC: DO Lidia Oakes MD (PCP) documented in this encounterSum[facility] History of Present illness Narrative* Conchis Tucker RD - 06/19/2022 1:00 PM EDT Nutrition Therapy Reassessment This visit was performed via telehealth due to the COVID-19 epidemic as an effort to protect patients and minimize exposure. Consent from patient received to conduct visit via telehealth. This Team Access Model visit is a phone encounter. It required patient-provider interaction for the medical decision making as documented below. RECOMMENDED MALNUTRITION DIAGNOSIS: UNABLE TO IDENTIFY MALNUTRITION AT THIS TIME Reason for visit: Nutrition Counseling Nutrition Diagnosis: Increased nutrient needs (kcal, pro) related to physiological changes increasing nutrient utilization as evidenced by ca dx and treatment plan. Nutrition Intervention: 1)Try Magnesium Glycinate as a gentler alternative to Magnesium Oxide 2)Try having coffee with foods 3)Continue food diary with symptoms recorded Continue the following: Chew food thoroughly Decrease Vit C 1000mg to as needed Continue Chewable Multivitamin Continue B12 SL and B Complex Continue 30 oz of electrolyte drink and 30 oz water - sips Weight loss to be addressed after correcting ostomy output issues. Educational materials provided: Creative Eating during Illness and Recovery Nutrition Assessment Pt presents for nutrition counseling for acute myeloid leukemia in remission, Chronic GVHD. Pt is currently being treated with post treatment. Pt denies any chewing/swallowing issues, denies current N/V/D/C. Possible fish allergy. 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 Would like snack ideas; Missing 17 teeth; Possible borderline diabetic. Physical activity: Was very active prior to hospitalization. Walking 1 mile per day + weights. Homehealth PT x 6 more sessions. Hip flexers and core muscles. Diet History (24hr recall): Breakfast - Premier protein shake; banana Snack - Lunch - 1/2 peanut butter with cottage cheese Snack - Dinner - Frozen meals (Lasagna), chicken pot pie, sloppy joes, rotisserie chicken (spinach, canned greened beans, broccoli and cauliflower, asparagus, brussel sprouts) Snack - Beverages - 2-3 cups of coffee; water (60oz) with great value, drip drop or another electrolyte, Kinderlite Alcohol- Vitamins/Supplements - Vit C, B complex, Centrum, Magnesium Oxide 400mg BID, Flaxseed, probiotic. 02/19/22: Pt continues to have difficulty with watery high-ostomy output. Has had some improvement with diet modifications: Adding thickening food to every meal and snack. Adding oatmeal. Drinking Oral Rehydration Solution 30oz/water 30oz, Decreasing Coffee intake. She has started using SL B12, switched to achewable MVI. She is keeping a food and symptom diary. Will recommend physician to look at changingMagnesium Oxide to Magnesium Glycinate to see if symptoms persist. 03/09/22: Pt is improving from a nutritional standpoint with better ostomy control. Diet Recall: Breakfast - Premier protein shake; banana Snack - Lunch - 1/2 peanut butter with cottage cheese Snack - Oatmeal Dinner - rice, veg, meat and more fruit, cantaloupe with grapes, brussel sprouts, Snack - Had questions about Intermittant fasting because of desire to lose weight. Discussed instead to reduce portions of foods. Discussed increasing activity. She states she has been too sick to do therapyand hopes to resume soon. On antibiotic. Ostomy output is really thick in general. Contributing factor to better output: Limiting coffee x 2 , ORS, oatmeal, peanut butter. Has not yet transitioned to Mag Glycinate. Lab values Vit B12 high. Vitamin D high TSH value high with increase in levothyroxine Removed from pill box: Folic Acid, Vit D, Extra B12 Blood work 8 weeks 06/19/22 Pt has improved from a nutritional standpoint. States she has followed all previous nutrition recommendations and has an improved ostomy output. She is eating well and has had great improvement with switching from magnesium oxide to magnesium glycenate, addition of sublingual B12 has improved levels. In general ostomy has been thicker. Ostomy was watery one week ago - bronchial infection . Magnesium glycenate = levels were good B12/Folate - b values - edmundie sent to Dr. Baez regarding lab levels. Overall improvement and patient would like to schedule as needed going forward. Anthropometrics: HT/WT/BMI HEIGHT WEIGHT BODY MASS INDEX 12/02/2021 4' 10.5 70.308 kg 31.84 02/02/2022 68.04 kg 30.82 02/02/2022 68.04 kg 30.82 02/10/2022 68.493 kg 31.02 04/24/2022 68.947 kg 31.23 05/06/2022 68.493 kg 31.02 06/04/2022 73.029 kg 33.08 06/08/2022 72.576 kg 32.87 06/11/2022 70.761 kg 32.05 06/19/2022 4' 10 69.854 kg 32.19 06/19/2022 4' 10 69.854 kg 32.19 Estimated body mass index is 32.19 kg/m as calculated from the following: Height as of an earlier encounter on 06/19/22: 147.3 cm (4' 10). Weight as of an earlier encounter on 06/19/22: 69.9 kg (154 lb). Resting Metabolic Rate: 1107 Weight Loss: none Estimated Needs: Dosing Weight: 68.5 kg Estimated kilocalorie needs: 5320-7837 kilocalories determined by 25-30 kcal/kg Estimated protein needs: 82-103 grams determined by 1.2-1.5 g/kg Dosing weight Estimated fluid needs: 1388-4180 milliliters based on 1 mL per kcal Readiness to Learn Cognitive ability: Alert and oriented Motivation to learn: Eager Family support: Unable to assess - Family not present Instruction provided to: Patient Patient learns best by: Individual Instruction Factors affecting learning: Cultural Factors: None Physical limitations affecting learning: None NUTRITION FOCUSED PHYSICAL EXAM: Unable to perform exam due to patient unavailable, will re-attemptduring reassessment. Potential Signs of Inflammation: chronic condition Allergies: Fish Containing Products, Forteo [Teriparatide], Gadolinium-Containing Contrast Media, Iodinated Contrast Media, Iodine [Contrast Dye], and Omnipaque [Iohexol] Medications: Current Outpatient Medications Medication Sig Dispense Refill doxycycline hyclate (VIBRAMYCIN) 100 mg capsule Take 1 capsule by mouth twice daily for 5 days. 10 capsule 0 amoxicillin-clavulanic acid (AUGMENTIN) 875-125 mg per tablet Take 1 tablet by mouth twice daily for 10 days. 20 tablet 0 clotrimazole (MYCELEX) 10 mg ada Use 1 Ada as instructed four times daily. 140 Ada 1 ELIQUIS DVT-PE TREAT 30D START 5 mg (74 tabs) take 2 tablets by mouth twice a day for 7 days then 1take tablet twice a day THEREAFTER Cholecalciferol, Vitamin D3, 50 mcg (2,000 unit) cap Take 1 capsule by mouth once daily. 90 capsule3 lidocaine (XYLOCAINE) 5 % ointment Apply to affected area as needed (to urethral area). use a smallamount to affected area qid prn pain 30 g 1 cyanocobalamin/cobamamide (B12 SUBLINGUAL) Dissolve under the tongue. levothyroxine (SYNTHROID) 112 mcg tablet Take 1 tablet by mouth once daily. Take on empty stomach. For Thyroid 90 tablet 3 Magnesium Glycinate (MAG GLYCINATE) 100 mg tab Take 1 tablet by mouth twice daily. 60 tablet 5 metoprolol tartrate, short acting, (LOPRESSOR) 25 mg tablet Take 1 tablet by mouth once daily. 90 tablet 3 albuterol (PROVENTIL) 2.5 mg /3 mL (0.083 %) nebulizer solution Use 3 mL via nebulizer three times daily as needed for wheezing/shortness of breath. Inhale over 5-15 minutes 300 Vial 3 sodium chloride (NEBUSAL) 3 % nebulizer solution Use 4 mL via nebulizer twice daily. 1200 mL 3 estradiol (ESTRACE) 0.01 % (0.1 mg/gram) vaginal cream Use 0.5 g vaginally two times a week. 42.5 g3 esomeprazole (NEXIUM) 40 mg capsule TAKE 1 CAPSULE DAILY 90 capsule 3 lifitegrast (XIIDRA) 5 % ophthalmic drops Use 1 Drop in both eyes twice daily. (Patient taking differently: Use 1 Drop in both eyes twice daily. Pt states only uses at night) 180 Each 3 acyclovir (ZOVIRAX) 400 mg tablet Take 1 tablet by mouth twice daily. (Patient not taking: No sig reported) 180 tablet 3 mometasone (NASONEX) 50 mcg/actuation nasal spray Use 2 Sprays in the nose once daily. Rinse mouth after use. 17 g 3 albuterol HFA (PROAIR HFA) 90 mcg/actuation inhaler Inhale 2 Puffs as instructed every 4 hours as needed for wheezing/shortness of breath. 18 g 11 Nebulizer and Compressor For Neb 1 Each twice daily. 1 Each 1 tobramycin-dexAMETHasone (TOBRADEX) ophthalmic suspension Use 1 Drop in both eyes twice daily. 1 Bottle 1 fluorometholone (FML LIQUID FILM) 0.1 % ophthalmic suspension Use 1 Drop in both eyes twice daily. (Patient taking differently: Use 1 Drop in both eyes twice daily. Pt states takes when she needs) 1 Bottle 1 Flaxseed Oil 1,000 mg cap Take 1,000 mg by mouth once daily. 0.9 % sodium chloride (0.9% NACL) NURSING USE ONLY: USED FOR IMPLANTED VASCULAR ACCESS DEVICE (IVAD) ACCESS. AMBULATORY/OUTPATIENT: PLEASE REORDER UPON HOSPITAL DISCHARGE May access implanted vascular access device (IVAD) as needed for treatment. Flush IVAD with 10-20 mL NS every 4 weeks and PRN when IVAD not in use. 1 Syringe 100 sodium chloride (PRATIMA 128) 5 % ophthalmic solution Use 1 Drop in both eyes as needed. MULTIVITAMIN ORAL Take 1 tablet by mouth once daily. ipratropium bromide (ATROVENT) 42 mcg (0.06 %) nasal spray Use 2 Sprays in the nose twice daily as needed. 1 Bottle 5 Lactobacillus acidophilus (PROBIOTIC ORAL) Take 1 capsule by mouth once daily. Current Facility-Administered Medications Medication Dose Route Frequency Provider Last Rate Last Admin perflutren lipid microspheres 1.3 mL in NaCl (PF) 0.9% 10 mL injection (DEFINITY) INTRAVENOUS DIRECTED PRN Clare Baez DO sodium chloride 0.9 % (flush) 10 mL (BD POSIFLUSH) 10 mL INTRAVENOUS DIRECTED PRN Clare Baez DO (date of last encounter 03/09/22 ): Nutrition Monitoring & Evaluation: PO intake Supplement tolerance Wt status Biochemical Markers Skin integrity Plan of care Patient met goal(s): Yes Need for Follow up: Will follow up as needed Referred/Supervised by: Dr. Baez Thank you for allowing me to participate in the care of this pt. MNT Billing Type: Re-assess/15 min 2 units Signed by: Conchis Tucker RD,LD documented in this encounterSumma Health [facility]30-2022 History of Present illness Narrative* Chrissy Moser MD - 06/19/2022 10:30 AM EDT Images from the original note were not included. . [facility] [place] Note Patient name: Cong Smith PCP: Lidia Lopez MD CC: Bronchiectasis, cough HPI: Cong Smith 72 year old obese female non-smoker with PMH significant for AF, VTE (PE and recurrent DVT), AML status post bone marrow transplant 2014 and history of GVHD (GI), GERD, HTN, ileostomy, diabetes, hypothyroidism, bronchiectasis former patient of Dr. De La Rosa. Treatment for her bronchiectasis consists of albuterol, hypertonic saline nebulized treatments, and Acapella/flutter device.She states she was doing well until this past week when she developed low grade fever, wheezing, cough productive of yellow sputum. No chest pain or significant shortness of breath. No shaking chillsor known COVID exposure. She has not been consistently compliant with her mucus clearance techniques. Seen in urgent care, chest x-ray without infiltrate and only pertinent for chronic changes. She was prescribed 60 mg of prednisone and doxycycline. Patient reluctant to use steroids as she has sideeffects. Since starting the antibiotic, she has felt somewhat better. DATA: PFT 12/04/21: Review of pulmonary function test more consistent with restriction rather than obstruction Labs: Component Ref Range & Units 13 d ago NT Pro BNP <125 pg/mL 160 High Component Ref Range & Units 6 d ago (06/11/22) WBC 3.70 - 11.00 k/uL 8.99 RBC 3.90 - 5.20 m/uL 3.73 Low Hemoglobin 11.5 - 15.5 g/dL 12.8 Hematocrit 36.0 - 46.0 % 38.5 MCV 80.0 - 100.0 fL 103.2 High MCH 26.0 - 34.0 pg 34.3 High MCHC 30.5 - 36.0 g/dL 33.2 RDW-CV 11.5 - 15.0 % 15.2 High Platelet Count 150 - 400 k/uL 280 MPV 9.0 - 12.7 fL 10.5 Neut% % 39.1 Abs Neut 1.45 - 7.50 k/uL 3.52 Lymph% % 46.1 Abs Lymph 1.00 - 4.00 k/uL 4.14 High [place]% % 11.7 Abs [place] <0.87 k/uL 1.05 High Eosin% % 2.1 Abs Eosin <0.46 k/uL 0.19 Baso% % 0.8 Abs Baso <0.11 k/uL 0.07 Immature Gran % % 0.2 Abs Immature Gran <0.10 k/uL <0.03 NRBC /100 WBC 0.0 Absolute nRBC <0.01 k/uL <0.01 Diff Type Auto Imaging / Diagnostic Studies: CXR 06/18/22 [facility]: Right perihilar chronic changes. No acute infiltrate Chest CT 06/04/21: IMPRESSION: Regions of atelectasis and/or parenchymal scarring are again seen within both lungs. No acute pulmonary process is identified. Mild, diffuse bronchiectasis. Prominent, not pathologically enlarged mediastinal lymph nodes, likely reactive. Nonspecific mild periportal lymphadenopathy. Partially visualized cystic lesion within interpolar segment of the left kidney. Liver has a nodular contour. I personally reviewed the images and agree with the above assessment PAST MEDICAL HISTORY Diagnosis Date Abnormal echocardiogram 06/03/2017 Abnormality of gait 08/10/2016 Acute pulmonary embolism ([facility]) 08/06/2015 --Patient presented with pleuritic Chest Pain, Heparin gtt initiated until PE ruled out --Negative for PE CT with PE protocol. Heparin drip was discontinued. PEPE (acute kidney injury) ([facility]) Non-oliguric renal failure. Creat increased to 1.6. Baseline sCr 0.6-1. --change fk to sirolimus. Resolved. 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 Dx 06/28/2014. -S/p induction with 7+3 + eltombopag (CASE 1493) course complicated by E.coli UTI and pulmonary nodule treated with posaconazole. -S/p 3 cycles of HiDAC, all courses complicated by neutropenic fevers and concern for worsening fungal pneumonia although this was not supported by cultures and bronchoscopy. 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 Treated w ganciclovir. 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 Lab draws: 11/28, 12/05, 12/12, 12/13, 12/26, 01/09, 01/23, 02/2710 Grade GVHD: every Wednesday starting 12/05, and prior to discharge. Pseudophakia of both eyes RBBB (right bundle branch block) 10/01/2015 RUQ abdominal pain S/P bone marrow transplant ([facility]) 08/27/2015 AML. Per LDT [facility] charges 08/22/15 S/P partial colectomy 06/20/2015 --06/20/2015- ex lap, subtotal colectomy, and end ileostomy SBO (small bowel obstruction) ([facility]) 01/25/2017 Secondary adrenal insufficiency ([facility]) 09/07/2016 Squamous cell carcinoma Left cheek Syncope Type 2 diabetes mellitus with microalbuminuria, without long-term current use of insulin ([facility]) 07/02/2016 Unspecified hypothyroidism ALLERGIES Allergen Reactions Fish Containing Pro* Unknown Forteo [Teriparatid* Other: See Comments Hypercalcemia 08/2018 Gadolinium-Containi* Hives Iodinated Contrast * Hives Iodine [Contrast Dy* Hives Hives, sneezing Omnipaque [Iohexol] Hives Sneezing, pruritis (ears), and hive. sodium chloride (NEBUSAL) 3 % nebulizer solution^Use 4 mL via nebulizer twice daily.^Disp: 1200 mL^Rfl: 3 doxycycline hyclate (VIBRAMYCIN) 100 mg capsule^Take 1 capsule by mouth twice daily for 5 days.^Disp: 10 capsule^Rfl: 0 amoxicillin-clavulanic acid (AUGMENTIN) 875-125 mg per tablet^Take 1 tablet by mouth twice daily for 10 days.^Disp: 20 tablet^Rfl: 0 clotrimazole (MYCELEX) 10 mg ada^Use 1 Ada as instructed four times daily.^Disp: 140 Ada^Rfl: 1 ELIELIEL DVT-PE TREAT 30D START 5 mg (74 tabs)^take 2 tablets by mouth twice a day for 7 days then 1take tablet twice a day THEREAFTER^Disp: ^Rfl: Cholecalciferol, Vitamin D3, 50 mcg (2,000 unit) cap^Take 1 capsule by mouth once daily.^Disp: 90 capsule^Rfl: 3 lidocaine (XYLOCAINE) 5 % ointment^Apply to affected area as needed (to urethral area). use a smallamount to affected area qid prn pain^Disp: 30 g^Rfl: 1 cyanocobalamin/cobamamide (B12 SUBLINGUAL)^Dissolve under the tongue.^Disp: ^Rfl: levothyroxine (SYNTHROID) 112 mcg tablet^Take 1 tablet by mouth once daily. Take on empty stomach. For Thyroid^Disp: 90 tablet^Rfl: 3 Magnesium Glycinate (MAG GLYCINATE) 100 mg tab^Take 1 tablet by mouth twice daily.^Disp: 60 tablet^Rfl: 5 metoprolol tartrate, short acting, (LOPRESSOR) 25 mg tablet^Take 1 tablet by mouth once daily.^Disp: 90 tablet^Rfl: 3 albuterol (PROVENTIL) 2.5 mg /3 mL (0.083 %) nebulizer solution^Use 3 mL via nebulizer three times daily as needed for wheezing/shortness of breath. Inhale over 5-15 minutes^Disp: 300 Vial^Rfl: 3 estradiol (ESTRACE) 0.01 % (0.1 mg/gram) vaginal cream^Use 0.5 g vaginally two times a week.^Disp: 42.5 g^Rfl: 3 esomeprazole (NEXIUM) 40 mg capsule^TAKE 1 CAPSULE DAILY^Disp: 90 capsule^Rfl: 3 lifitegrast (XIIDRA) 5 % ophthalmic drops^Use 1 Drop in both eyes twice daily.^Disp: 180 Each^Rfl: 3 (Patient taking differently: Use 1 Drop in both eyes twice daily. Pt states only uses at night) acyclovir (ZOVIRAX) 400 mg tablet^Take 1 tablet by mouth twice daily.^Disp: 180 tablet^Rfl: 3 (Patient not taking: No sig reported) mometasone (NASONEX) 50 mcg/actuation nasal spray^Use 2 Sprays in the nose once daily. Rinse mouth after use.^Disp: 17 g^Rfl: 3 albuterol HFA (PROAIR HFA) 90 mcg/actuation inhaler^Inhale 2 Puffs as instructed every 4 hours as needed for wheezing/shortness of breath.^Disp: 18 g^Rfl: 11 Nebulizer and Compressor For Neb^1 Each twice daily.^Disp: 1 Each^Rfl: 1 tobramycin-dexAMETHasone (TOBRADEX) ophthalmic suspension^Use 1 Drop in both eyes twice daily.^Disp: 1 Bottle^Rfl: 1 fluorometholone (FML LIQUID FILM) 0.1 % ophthalmic suspension^Use 1 Drop in both eyes twice daily.^Disp: 1 Bottle^Rfl: 1 (Patient taking differently: Use 1 Drop in both eyes twice daily. Pt states takes when she needs) Flaxseed Oil 1,000 mg cap^Take 1,000 mg by mouth once daily.^Disp: ^Rfl: 0.9 % sodium chloride (0.9% NACL)^NURSING USE ONLY: USED FOR IMPLANTED VASCULAR ACCESS DEVICE (IVAD) ACCESS. AMBULATORY/OUTPATIENT: PLEASE REORDER UPON HOSPITAL DISCHARGE May access implanted vascular access device (IVAD) as needed for treatment. Flush IVAD with 10-20 mL NS every 4 weeks and PRN when IVAD not in use.^Disp: 1 Syringe^Rfl: 100 sodium chloride (PRATIMA 128) 5 % ophthalmic solution^Use 1 Drop in both eyes as needed. ^Disp: ^Rfl: MULTIVITAMIN ORAL^Take 1 tablet by mouth once daily.^Disp: ^Rfl: ipratropium bromide (ATROVENT) 42 mcg (0.06 %) nasal spray^Use 2 Sprays in the nose twice daily as needed.^Disp: 1 Bottle^Rfl: 5 Lactobacillus acidophilus (PROBIOTIC ORAL)^Take 1 capsule by mouth once daily.^Disp: ^Rfl: Social History Tobacco Use Smoking status: Never Smokeless tobacco: Never Vaping Use Vaping Use: Never used Substance Use Topics Alcohol use: Not Currently Comment: Quit 2013, previously 1-2 drinks per year Drug use: Never PMH, Social history, family history and surgical history reviewed and updated in EMR REVIEW OF SYSTEMS: CONSTITUTIONAL: No chills, nightsweats, unintended weight loss. Low grade temp HEENT: Denies nasal congestion/sinus symptoms CARDIOVASCULAR: No chest pain, dyspnea, palpitations, edema. PULM: See HPI GI: No diarrhea, n or v, abdominal pain INTEGUMENTARY: No new skin changes or rashes PHYSICAL EXAMINATION: BP 112/72 Pulse 89 Resp 12 Ht 4' 10 (1.47m) Wt 154 lb (69.9kg) SpO2 92% BMI 32.19 kg/(m^2). General Appearance: Obese, NAD Skin: Skin color, texture, turgor normal, no suspicious rashes or lesions. Head: Normocephalic, no masses, lesions, tenderness or abnormalities. Nasal congestion Eyes: Sclera conjunctiva normal Oropharynx: Thrush Neck: No JVD, no adenopathy Lungs: Not labored, diffuse crackles and inspiratory squeaks in right base Heart: RRR, no murmur Extremities: No edema, no clubbing Assessment/Plan: 1. Bronchiectasis with acute exacerbation -Needs to start prednisone. Can start at lower dose of 20 mg -Needs to be compliant with mucus clearance techniques -Will need longer course of doxycycline -Patient instructed to contact me if symptoms fail to resolve 2. Thrush -Was just prescribed Mycelex troches 3. History of GVHD -GVHD of lungs usually manifests as [place] but can see bronchiectasis Chrissy Moser MD [facility] [place] documented in this encounterSumma Health [facility]09-30-[facility]22 Nurse Note* Nevaeh Virgen LPN - 06/19/2022 10:13 AM EDT Intake information documented in the prior visit with DANNA Chappell today. documented in this encounterSumma Health Wad[facility]09-30-2022 History of Present illness Narrative* DANNA Chappell - 06/19/2022 10:03 AM EDT PULM FUNCTION SMARTBLOCK: Provider: Chrissy Moser MD Assisting Tech: DANNA Chappell Spirometry: 1 documented in this encounterSumma Health Wadsworth [facility]09-29-2022 Miscellaneous Notes* Telephone Encounter - Leny Ramirez RN - 06/18/2022 8:27 AM EDT Pt. notified. Voices understanding. Leny Ramirez RN * Telephone Encounter - Rowan Vick Ma - 06/17/2022 4:09 PM EDT Patient calling and states she has a follow up appointment with Dr Moser on Wednesday. Yesterday she started having a runny nose and last night started coughing. She has been coughing up yellow mucous. Temperature today is 99.9. She did take some Mucubex today. Patient is asking how does she know whenshe has Bronchiectasis? documented in this encounterSumma Health Wadsworth - [facility]09-28-2022 Miscellaneous Notes* Letter - Mammography Coordinator - 06/17/2022 1:47 PM EDT June 17, 2022 PID: [id number] Cong Smith [address] [place] [address] Dear Ms. Smith, We are pleased to inform you that the results of your recent breast imaging exam on 06/17/2022 are normal. Early detection of cancer is very important. We also understand recommendations regarding breast cancer screening are controversial. Please discuss with your primary care provider which strategy is best for you and whether a mammogram is right for you. Your imaging studies and report will be kept on file at [facility] as part of your permanent medical record and are available for your continuing care. Thank you for allowing us to help in meeting your health care needs. Sincerely, Dr. Huertas Interpreting Radiologist [facility] (Normal over 40) documented in this encounterSumma Health Wadsworth - [facility]ittman [facility] Center09-28-2022 History of Present illness Narrative* Isadora Steven, RT(R) - 06/17/2022 1:10 PM EDT Radiology Service Progress Note PATIENT NAME: Cong Smith DATE OF SERVICE: June 17, 2022 TIME: 1:11 PM PATIENT IDENTITY VERIFICATION COMPLETED USING TWO (2) IDENTIFIERS: Name and Date of confirmedby patient verbally. FALL SCREENING: Has the patient had 2 falls in the last year or 1 fall with injury or currently using an Ambulatory Assistive Device (Walker, Cane, Wheelchair, Crutches, etc.)? No PATIENT GENDER DATA: Female. status: : No status: NO. PATIENT RELEVANT IMPLANT DATA REVIEWED: Not Applicable RADIOLOGY DEPARTMENT: Mammography PERIPHERAL IV DATA: Not applicable SIGNED BY: RT Stephy(R) June 17, 2022 1:11 PM documented in this encounterSumma Health Wadsworth - [facility] Center09-22-2022 Nurse Note* Saeed Ball LPN - 06/11/2022 10:44 AM EDT Additional intake questions: Has the patient had fever, nausea, vomiting, diarrhea, constipation, fatigue for > 1 week? Yes, fatigue Does the patient have a decreased appetite? No Does patient want to see a Well Head Pumper? No (yes to any of above refer patient to schedulers for dietitian appointment) ) Does patient have any new or increased numbness or tingling of extremities? No Is patient interested in fertility information? NA Does patient need any prescription refills? No Does patient have an advanced directive in place? Yes, copies are in Epic documented in this encounterSumma Health Wadsworth - [facility]09-21-2022 Miscellaneous Notes* Telephone Encounter - Cristina Bartlett APRN.CNP - 06/10/2022 3:00 PM EDT Melodie Bartlett APRN.CNP * Telephone Encounter - Mallika Suarez RN - 06/10/2022 10:42 AM EDT Laura PTTricia Wilhelm [facility]- reports he had visit with patient today, and patient requests discharge from. States she is doing well enough. documented in this encounterSumma Health Wadsworth - [facility] Center09-19-2022 Miscellaneous Notes* Telephone Encounter - Heena Alejandra LPN - 06/08/2022 1:39 PM EDT Patient notified. Heena Alejandra LPN * Telephone Encounter - Clare Baez DO - 06/08/2022 12:50 PM EDT Can let her know the echocardiogram was normal. 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 2) GVHD of the GI tract, liver, oral mucosa, vaginal mucosa and conjunctiva. HPI: The patient is a 71 yo female who was diagnosed with FLT3 ITD+/NPM1+ AML after presenting withchest pain. She received 7+3 and eltrombopag (CASE 1493) for induction. Her induction course was complicated by chest pain of unclear etiology and a skin rash likely due to cytarabine or zosyn. She had a UTI (E. coli) as well as noted pulmonary nodules on CT scan chest 07/13/2014. She was treated with posaconazole on 07/18/2014 since lesions appeared while on voriconazole. Discharged from [facility] 11/03/2014 following cycle #3 HiDAC. 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 Did very well for first 100 days and was tolerating steroid taper. Several days after going home, developed nausea/vomiting. Culminated in total colectomy. Per discharge summary 08/20/2015: Ms. Smith is a 65 year old female who presents from [facility] with positive V/Q scan c/w intermediate risk of pulmonary embolism. 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 She presented to [facility] 08/06 with chest pain. Her pain is described as left and right sided with left sided shoulder pain. Some dyspnea that she attributes to pain not difficulty getting breath in. She denies radiation to her jaw or back, no diaphoresis, no heaviness. She has an allergy to iodine and omnipaque so it was not possible to do a CTPE for she had a V/Q scan which showed intermediate probability for PE. While at [facility] Dr. Welch from oncology saw the patient and had no further recs. Pulmonary saw the patient as well and had no further recs. Cardiology evaluated the patient and felt that her troponin elevation is most likely secondary to her PE which was of high suspicion given immobility and malignancy. He suggested aspirin, continue beta neda, hold statin, noted chronic RBBB. Troponins were 0.098 and 0.121. On admission here she is HDS, conversant, some residual left shoulder pain but improved overall, nofevers, chills, night sweats and limited SOB. No diarrhea, dysuria, cough, headaches. Last two hospitalizations: 06/04-06/19 Developed E. Coli bacteriemia and was treated with a full course of meropenem. She resides at [place] currently. 06/19-07/10 Recently admitted where she developed pneumatosis coli and was taken to surgery where she got a subtotal colectomy with end ileostomy. Had a full course of CMV treatment with ganciclovir, followed by ID. Hospital Course: Mrs Smith was admitted to the MICU and placed on a heparin drip for suspected pulmonary embolism. CT scan with PE protocol was negative for pulmonary embolism and the heparin drip wasstopped. Once stabilized she was transferred to the BMT unit. Rountine U/A and urine culture showeda UTI d/t a multi resistant E.Coli which was treatet with a week course of IV cetriaxone. Her hospital course was further complicated by atrial fibrillation with rapid ventricular response. This required transfer to cardiology ICU for continuous infusion amiodarone for hrt rate control. Her Coreg and norvasc was stopped due to low blood pressure. She was transitioned to oral Amiodarone, and her multiple medications were adjusted for interactions i.e ppx cipro and posa were dc'd. PT/OT recommended SNF upon discharge, final placement arrangements were made and she was transferred [facility] Underwent ileoscopy on 08/17/2018 for potential GI bleed/GVHD. At approximately 28 cm proximal to the stoma one semi-pedunculated nonbleeding polyp was identified. It was 4 mm in diameter. Biopsies were obtained. Otherwise the examined portion of the ileum was normal. Pathology: 1. Ileum, biopsy (A) - Small intestinal mucosa with architectural distortion and occasional apoptotic bodies. See comment. 2. Ileum polyp, biopsy (B) - Small intestinal mucosa with architectural distortion and pyloric gland metaplasia, see comment. COMMENT The patient's history of spkos-tjqlgc-bwug disease (GVHD) is noted. In the current specimen, only occasional apoptotic bodies are present, and do not meet our threshold for a diagnosis of GVHD (greater than 1 apoptotic body per piece of tissue). However, given their presence, some component of GVHDactivity cannot be entirely ruled out. Both biopsies show evidence of chronic mucosal injury, possibly from prior GVHD. Chronic infection,chronic ischemia and chronic drug/medication injury could also produce these histologic features. An immunostain for CMV will be obtained and the results will be reported as an addendum. EGD on 08/31/2018. She was observed to have localized, moderate inflammation characterized by erosions, erythema and friability as well as serpentine ulcerations in the gastric antrum. Biopsies were obtained. The examined duodenum was normal. The lower third and middle third of the esophagus were both normal. Patient was advised to use sucralfate in addition to her proton pump inhibitor. Pathology: 1. Duodenum, biopsy (A) - Duodenal mucosa with minimal crypt apoptosis. 2. Antrum, biopsy (B) - Antral mucosa with chronic active inflammation and features of erosion. - See comment. 3. Esophagogastric junction, biopsy (C) - Reactive squamous mucosa and inflamed cardiac mucosa. - No evidence of intestinal metaplasia or dysplasia. 4. Mid esophagus, biopsy (D) - Mildly reactive squamous mucosa with rare intraepithelial eosinophils (up to 2 eosinophils in a single high power field). COMMENT The level of apoptotic activity seen the duodenum biopsy (part A) is insufficient to warrant a diagnosis of GVHD. H. pylori and CMV immunostains performed on the antrum biopsy (part B) to evaluate the chronic active inflammation are both negative. Underwent left hip replacement in January 2019. Presents for ongoing oncologic management. Interim history: Was seen by gynecology at the beginning of April for vaginal and vulvar pain. It had come on a fewdays prior. She continue clobetasol Monistat without any relief. [place] like entire area was swollen and sore. Seen by primary care physician in mid April. Was having increasing leg pain. [facility] Evidently noncontrast CT demonstrated no etiology for pain. Pain continued to worsen and she presented to [facility] on 05/18. She underwent a right lower extremity venous duplex exam which showed acute DVT in the right lower extremity in the right distal external iliac vein, right common femoral vein, right femoral vein, right deep femoral vein and right posterior tibial vein. Acute clot was also noted in the right greater saphenous vein. She was started on anticoagulation with Eliquis. Pain is subsided considerably but she still having shortness of breath with exertion. No chest pains. Usual bleeding or unexplained bruising. Continues under the care of apple thinner. Continues metoprolol for sinus tachycardia. No lower extremity swelling or edema. No exertional chest pain. PMH, medications and allergies personally reviewed by me today. Any changes documented in appropriate section. PHYSICAL EXAM: Vitals: Blood pressure 125/61, pulse 77, temperature 37 C (98.6 F), temperature source Temporal, SpO2 97 %. Well-appearing and in no acute distress. EYES: Sclerae are anicteric bilaterally. No conjunctival injection. LYMPHATIC: There is no palpable cervical, supraclavicular or inguinal adenopathy. RESPIRATORY: Inspiratory breath sounds are of normal intensity in all hammond. No rales, wheezes or rhonchi. CARDIOVASCULAR: Rhythm is regular. ABDOMEN: The abdomen is nondistended. There is generalized tenderness throughout. Extremities: Very mild swelling distal right lower extremity when compared to the left. Subjectively she said this is much better than it had been. SKIN: No jaundice. ASSESSMENT/PLAN: (I82.413) Acute deep vein thrombosis (DVT) of femoral vein of both lower extremities (HCC) (primaryencounter diagnosis) (R06.00, R06.89) Dyspnea and respiratory abnormalities Assessment: -Patient has history of left-sided lower extremity DVT. She has been off Eliquis for about a year. -Has IVC filter in place. -Still experiencing dyspnea with exertion and tachycardia. -Groin pain significantly improved. -Tolerating apixaban at anticoagulant doses without unusual bleeding or unexplained bruising. -Discussed she will require anticoagulation indefinitely. -Potential work-up for hypercoagulable state such as lupus anticoagulant in a few months once she is managed through the acute DVT. -Walking pulse ox 94 to 97% with pulse 104. Plan: -Check BNP. -Echocardiogram as soon as able. -Continue apixaban twice daily. 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 -Continued low-grade fvhfn-nhsqzu-rfbh disease of the conjunctiva, oral mucosa and vaginal area. Symptoms controlled and now improved with topical therapy. -Sirolimus discontinued. -Developed symptoms of chronic bronchitis and bronchiectasis. Evaluated by pulmonary medicine. On bronchodilator therapy and Mucinex with improvement in symptoms. -Recent testing for CMV and EBV negative. T-cell clone negative. Lymphocyte count improved. Monocytosis not present currently. Plan: -She will continue current management of GVHD. -Vaginal estrogen cream and clobetasol regimen for vulvar irritation from ignacio vs host dx per group cio. -Otherwise office visit with lab work in 3-4 months. Portions of this documentation were copied and pasted from previous office visit notes in order to provide a cohesive continuity of the history. The note has been reviewed and edited and updated as necessary. Clare Baez DO documented in this encounterSumma Health Wadsworth [facility]09-09-2022 Miscellaneous Notes* Telephone Encounter - Svitlana Robles Pss - 05/29/2022 10:32 AM EDT Patient returned call and will report to 06/04 appointments. * Telephone Encounter - Linh Ortiz RN - 05/29/2022 9:02 AM EDT Spoke with kelly Manuel to keep the 06/04/22 appointment as patient was expecting this appointment to discuss recent DVT. He can advise a follow up at that point. No need to schedule anything at thistime. Erika Ortiz RN * Telephone Encounter - Stephanie Lagos - 05/29/2022 8:45 AM EDT LM for patient to return call. When patient calls, please advise of Dr. Baez's message below and reschedule 06/04 Port and OV to 4- 6 weeks out and changing the Office visit from EST SIMPLE to EST COMPLEX. Once rescheduled, document and route this note to P WSTR HEM/ONC PSR. Stephanie Lagos * Telephone Encounter - Clare Baez DO - 05/29/2022 7:46 AM EDT I reviewed the records from [facility]. Please advise her to continue blood thinner medications and then schedule establish complex visit with me in about 4 to 6 weeks. Clare Baez DO * Telephone Encounter - Linh Ortiz RN - 05/28/2022 11:48 AM EDT Reviewed records regarding follow up instructions. All records on desk for review. Erika Ortiz RN * Telephone Encounter - Aleyda Pittman Pss - 05/28/2022 11:37 AM EDT Records received. * Telephone Encounter - Linh Ortiz RN - 05/28/2022 10:53 AM EDT Patient calls and states that she was in [facility] with a huge blood clot. States she was seen in [place] ED twice but it wasn't until she went to [place] ED did they find the large clot. She was admitted for 4 days on Heparin drip and home on Eliquis 10mg. She took 2 BID for 7 days and is starting the lower dose of 1 BID today. States he foot look like a sausage and her calf was swollen and that is much better now. She describes the pain as excruciating and mainly in her lower abdominal area. That is much better now and only has a throbbing pain when she exercises She does not take anything for pain at this time. She was advised at discharge to follow up with Vascular Surgeon. She had an appointment in [place] and they called her back and advised her to get a Hematology consult first. Patient has follow up with Dr. Baez on 06/04/22. This nurse has requested records from [facility] for Dr. Baez to review. Patient aware this office will call her back if he any new instruction from Dr. Baez after review of records. Erika Ortiz RN * Telephone Encounter - Linh Ortiz RN - 05/28/2022 8:45 AM EDT Call to patient, no answer, message left to call me back and phone/contact number provided. Linh Ortiz RN * Telephone Encounter - Clare Baez DO - 05/27/2022 8:55 PM EDT Regan Melvin. Please see her [employer] message from yesterday. Can you call her to find out where the diagnosis of DVT was made, where was the ultrasound done and when. Clare Baez DO documented in this encounterSumma Health Wadsworth [facility]09-06-2022 Miscellaneous Notes* Telephone Encounter - Simi Leary Ma - 05/26/2022 3:55 PM EDT Patient is scheduled * Telephone Encounter - Mona York - 05/21/2022 4:49 PM EDTSummary: PT called in requesting a hospital follow-up Pt called in requesting a hospital follow-up, nurse recommended Jun 05 at 2:20, then she transferred PT to md to schedule, but I can not unblock schedules. Pt was seen at [facility] for bloodclots and was discharged 05/20/22. Please call PT to schedule documented in this encounterSumma Health Wadsworth [facility]09-01-2022 Miscellaneous Notes* Telephone Encounter - Marta Light LPN - 05/21/2022 2:56 PM EDT Danna from [facility] notified of providers message and verbalized understanding. * Telephone Encounter - Selina Driscoll APRN.CNS - 05/21/2022 1:42 PM EDT [place] [facility] * Telephone Encounter - Stephanie Carvajal RN - 05/21/2022 12:53 PM EDT Chantale from [facility] calls asking if provider would be willing to follow home physical therapy orders? Please review and advise, Stephanie Carvajal RN documented in this encounterSumma Health Wadsworth - [facility]08-31-2022 Note Discharge Instructions Thank you for allowing [facility] to assist you with your healthcare needs. The following is importantdischarge information regarding your hospital visit. Your Care Team [facility] Your Diagnosis Acute DVT (deep venous thrombosis) Leg pain-swelling Tachycardia Hypothyroidism GERD (gastroesophageal reflux disease) Leukemia What to do next Instructions From Your Doctor You were admitted with extensive DVT in your right leg. You were initially treated with a heparin drip but were converted over to an oral anticoagulant today, Eliquis. You were on this medication before for DVT in your left leg. The same precautions apply this time around. You will take Eliquis 10 mg orally twice daily for a total of 7 days and then start 5 mg twice daily indefinitely. 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 Please let this doctor know that you were diagnosed with DVT in your right leg and discuss whether you need any testing for coagulation disorders. You also need to follow-up with Dr. Linder, vascular surgeon in the next 10 -14 days so he can evaluate you DVT. IF YOU HAVE INCREASED PAIN OR DIFFICULTY AMBULATING ON YOUR RIGHT LEG, PLEASE RETURN TO THE ED. YOU WILL NEED TO BE TRANSFERRED TO [facility] FOR A VASCULAR SURGERY CONSULT. THEY CAN PERFORM A PROCEDURE ON YOU TO REMOVE THIS CLOT. Follow-up with your PCP as scheduled. Keep your leg elevated when you are sitting but try to increase your activity as your are able. Theanticoagulant does not dissolve the clot overnight. It prevents it from becoming larger while your body works to break it down. Follow Up Appointments Follow Up with LIDIA LOPEZ MD When 06/01/2022 02:15 PM EDT Why: Follow-up as scheduled Where: [address] [place] [address]- Follow Up with AMY LINDER MD, [facility], Surgery, Vascular Surgeons When Why: Please call to schedule an appointment. I was unable to reach them. Where: [facility] [address] [facility] [place] [address] The Following Activity and Diet Have Been Ordered for You Discharge Activity - Ordered -- NO activity restrictions, 05/20/22 13:48:00 EDT Discharge Diet - Ordered -- Type of Diet: Regular Diet, 05/20/22 13:48:00 EDT Someone Will Contact You Regarding These Home Health Referrals Consult Home Health - PT (Home Health PT Consult) - Ordered -- 05/20/22 13:48:00 EDT, Home Therapy Order: PT Eval & Treat, Reason: General Debility, Home Therapy Instruction: Full weight bearing Allergies Contrast dye (Itching) Medications Please ask your primary doctor or pharmacist before taking any other medication not listed, including over the counter drugs, herbal medications, vitamins and or supplements as they may interact withyour home medications. What How Much When Why Instructions Last Dose New apixaban (Eliquis Starter Pack for Treatment of DVT and PE 5 mg oral tablet) [10mg BID x 7days-then 5mg BID] by mouth Two (2) times a day Duration: 30 Days Pickup at [facility] #[id number] 05/20/22 @8AM Changed acetaminophen-oxyCODONE (Percocet 5 mg-325 mg oral tablet) 1 tab(s) by mouth Every 6 hours as needed for as needed for pain Acute DVT (deep venous thrombosis) Duration: 5 Days Pickup at [facility] #[id number] 05/20/22 @1130AM Changed betamethasone-clotrimazole topical (betamethasone-clotrimazole 0.05%-1% topical cream) 1 application Vaginal Two (2) times a day as needed for vaginal discomfort NOT GIVEN Changed cholecalciferol (Vitamin D3 1250 mcg (50,000 intl units) oral capsule) 1 cap by mouth Every Wednesday NOT GIVEN Changed sulfamethoxazole-trimethoprim (Bactrim DS 800 mg-160 mg oral tablet) 1 tab(s) by mouth Two (2) times a day Duration: 10 Days NOT GIVEN Unchanged acyclovir (acyclovir 400 mg oral tablet) 1 tab(s) by mouth Two (2) times a day 05/20/22 @8AM Unchanged bacillus coagulans-inulin (Probiotic Formula (Bacillus Coagulans) oral capsule) 1 cap by mouth Once a day 05/20/22 @8AM Unchanged cyanocobalamin (Eligen B12 1000 mcg oral tablet) 1 tab(s) by mouth Once a day NOT GIVEN Unchanged esomeprazole (esomeprazole 40 mg oral delayed release capsule) 1 cap by mouth Once a day 05/20/22 @3PM Unchanged herbal/ nutritional product 1,000 Milligram by mouth Once a day Flaxseed Oil NOT GIVEN Unchanged levothyroxine (Synthroid 112 mcg (0.112 mg) oral tablet) 1 tab(s) by mouth Once a day 05/20/22 @6AM Unchanged lifitegrast ophthalmic (Xiidra 5% ophthalmic solution) 1 Drops Both eyes Two (2) times a day NOT GIVEN Unchanged magnesium glycinate (magnesium glycinate 200 mg oral tablet) 2 tab(s) by mouth Once a day after a meal 05/20/22 @1130AM Unchanged metoprolol (Lopressor 25mg--USE metoprolol tartrate 25 mg oral tablet) 1 tab(s) by mouth Once a day 05/20/22 @8AM Unchanged multivitamin (Super B Complex oral tablet) 1 tab(s) by mouth Every day NOT GIVEN Unchanged multivitamin with minerals (Centrum MultiGummies Women) NOT GIVEN Pharmacy Information [id number]: [address], [place] [id number] [phone] [id number]: [address], [place] [phone] What How Much When Comments Stop Taking ergocalciferol (Vitamin D2 1.25 mg (50,000 intl units) oralcapsule) 1 cap by mouth Every week Stop Taking lidocaine topical (lidocaine 5% topical ointment) 1 application Topical Four (4) times a day as needed for Pain Stop Taking nitrofurantoin (nitrofurantoin macrocrystals-monohydrate 100 mg oral capsule) 1 cap by mouth Two (2) times a day Duration: 10 Days Take with food Stop Taking sodium bicarbonate (sodium bicarbonate 650 mg oral tablet) 1 tab(s) by mouth Two (2) times a day Please take this list to your next doctor s visit. Bring all medications you take, including over the counter medications, herbals and other supplements with you to your doctor s visit. Patients and families are reminded to discard old lists and to update any records with all medication providers or retail pharmacies. Education Materials Deep Vein Thrombosis A deep vein thrombosis (DVT) is a blood clot that develops in the deep, larger veins of the leg, arm, or pelvis. These are more dangerous than clots that might form in veins near the surface of the body. A DVT can lead to complications if the clot breaks off and travels in the bloodstream to the lungs. A DVT can damage the valves in your leg veins, so that instead of flowing upward, the blood pools in the lower leg. This is called post-thrombotic syndrome, and it can result in pain, swelling, discoloration, and sores on the leg. CAUSES Usually, several things contribute to blood clots forming. Contributing factors include: The flow of blood slows down. The inside of the vein is damaged in some way. You have a condition that makes blood clot more easily. RISK FACTORS Some people are more likely than others to develop blood clots. Risk factors include: Older age, especially over 75 years of age. Having a family history of blood clots or if you have already had a blot clot. Having major or lengthy surgery. This is especially true for surgery on the hip, knee, or belly (abdomen). Hip surgery is particularly high risk. Breaking a hip or leg. Sitting or lying still for a long time. This includes long-distance travel, paralysis, or recovery from an illness or surgery. Having cancer or cancer treatment. Having a long, thin tube (catheter) placed inside a vein during a medical procedure. Being overweight (obese). and childbirth. ? Hormone changes make the blood clot more easily during . ? The fetus puts pressure on the veins of the pelvis. ? There is a risk of injury to veins during delivery or a caesarean. The risk is highest just afterchildbirth. Medicines with the female hormone estrogen. This includes control pills and hormone replacement therapy. Smoking. Other circulation or heart problems. SIGNS AND SYMPTOMS When a clot forms, it can either partially or totally block the blood flow in that vein. Symptoms of a DVT can include: Swelling of the leg or arm, especially if one side is much worse. Warmth and redness of the leg or arm, especially if one side is much worse. Pain in an arm or leg. If the clot is in the leg, symptoms may be more noticeable or worse when standing or walking. The symptoms of a DVT that has traveled to the lungs (pulmonary embolism, PE) usually start suddenly and include: Shortness of breath. Coughing. Coughing up blood or blood-tinged phlegm. Chest pain. The chest pain is often worse with deep breaths. Rapid heartbeat. Anyone with these symptoms should get emergency medical treatment right away. Call your local emergency services (911 in the [place] if you have these symptoms. DIAGNOSIS If a DVT is suspected, your health care provider will take a full medical history and perform a physical exam. Tests that also may be required include: Blood tests, including studies of the clotting properties of the blood. Ultrasonography to see if you have clots in your legs or lungs. X-rays to show the flow of blood when dye is injected into the veins (venography). Studies of your lungs if you have any chest symptoms. PREVENTION Exercise the legs regularly. Take a brisk 30-minute walk every day. Maintain a weight that is appropriate for your height. Avoid sitting or lying in bed for long periods of time without moving your legs. Women, particularly those over the age of 35 years, should consider the risks and benefits of taking estrogen medicines, including control pills. Do not smoke, especially if you take estrogen medicines. Long-distance travel can increase your risk of DVT. You should exercise your legs by walking or pumping the muscles every hour. In-hospital prevention: ? Many of the risk factors above relate to situations that exist with hospitalization, either for illness, injury, or elective surgery. ? Your health care provider will assess you for the need for venous thromboembolism prophylaxis when you are admitted to the hospital. If you are having surgery, your surgeon will assess you the day of or day after surgery. ? Prevention may include medical and nonmedical measures. TREATMENT Once identified, a DVT can be treated. It can also be prevented in some circumstances. Once you have had a DVT, you may be at increased risk for a DVT in the future. The most common treatment for DVTis blood thinning (anticoagulant) medicine, which reduces the blood's tendency to clot. Anticoagulants can stop new blood clots from forming and stop old ones from growing. They cannot dissolve existing clots. Your body does this by itself over time. Anticoagulants can be given by mouth, by IV access, or by injection. Your health care provider will determine the best program for you. Other medicines or treatments that may be used are: Heparin or related medicines (low molecular weight heparin) are usually the first treatment for a blood clot. They act quickly. However, they cannot be taken orally. ? Heparin can cause a fall in a component of blood that stops bleeding and forms blood clots (platelets). You will be monitored with blood tests to be sure this does not occur. Warfarin is an anticoagulant that can be swallowed. It takes a few days to start working, so usually heparin or related medicines are used in combination. Once warfarin is working, heparin is usuallystopped. Less commonly, clot dissolving drugs (thrombolytics) are used to dissolve a DVT. They carry a high risk of bleeding, so they are used mainly in severe cases, where your life or a limb is threatened. Very rarely, a blood clot in the leg needs to be removed surgically. If you are unable to take anticoagulants, your health care provider may arrange for you to have a filter placed in a main vein in your abdomen. This filter prevents clots from traveling to your lungs. HOME CARE INSTRUCTIONS Take all medicines prescribed by your health care provider. Only take pdvn-htp-deolgra or prescription medicines for pain, fever, or discomfort as directed by your health care provider. Warfarin. Most people will continue taking warfarin after hospital discharge. Your health care provider will advise you on the length of treatment (usually 3 6 months, sometimes lifelong). ? Too much and too little warfarin are both dangerous. Too much warfarin increases the risk of bleeding. Too little warfarin continues to allow the risk for blood clots. While taking warfarin, you will need to have regular blood tests to measure your blood clotting time. These blood tests usually include both the prothrombin time (PT) and international normalized ratio (INR) tests. The PT and INRresults allow your health care provider to adjust your dose of warfarin. The dose can change for many reasons. It is critically important that you take warfarin exactly as prescribed, and that you have your PT and INR levels drawn exactly as directed. ? Many foods, especially foods high in vitamin K, can interfere with warfarin and affect the PT andINR results. Foods high in vitamin K include spinach, kale, broccoli, cabbage, anel and turnip greens, brussel sprouts, peas, cauliflower, seaweed, and parsley as well as beef and pork liver, green tea, and soybean oil. You should eat a consistent amount of foods high in vitamin K. Avoid major changes in your diet, or notify your health care provider before changing your diet. Arrange a visit with a dietitian to answer your questions. ? Many medicines can interfere with warfarin and affect the PT and INR results. You must tell your health care provider about any and all medicines you take. This includes all vitamins and supplements. Be especially cautious with aspirin and anti-inflammatory medicines. Ask your health care provider before taking these. Do not take or discontinue any prescribed or onrw-laa-odxgmpf medicine excepton the advice of your health care provider or pharmacist. ? Warfarin can have side effects, primarily excessive bruising or bleeding. You will need to hold pressure over cuts for longer than usual. Your health care provider or pharmacist will discuss other potential side effects. ? Alcohol can change the body's ability to handle warfarin. It is best to avoid alcoholic drinks orconsume only very small amounts while taking warfarin. Notify your health care provider if you change your alcohol intake. ? Notify your dentist or other health care providers before procedures. Activity. Ask your health care provider how soon you can go back to normal activities. It is important to stay active to prevent blood clots. If you are on anticoagulant medicine, avoid contact sports. Exercise. It is very important to exercise. This is especially important while traveling, sitting, or standing for long periods of time. Exercise your legs by walking or by pumping the muscles frequently. Take frequent walks. Compression stockings. These are tight elastic stockings that apply pressure to the lower legs. This pressure can help keep the blood in the legs from clotting. You may need to wear compression stockings at home to help prevent a DVT. Do not smoke. If you smoke, quit. Ask your health care provider for help with quitting smoking. Learn as much as you can about DVT. Knowing more about the condition should help you keep it from coming back. Wear a medical alert bracelet or carry a medical alert card. SEEK MEDICAL CARE IF: You notice a rapid heartbeat. You feel weaker or more tired than usual. You feel faint. You notice increased bruising. You feel your symptoms are not getting better in the time expected. You believe you are having side effects of medicine. SEEK IMMEDIATE MEDICAL CARE IF: You have chest pain. You have trouble breathing. You have new or increased swelling or pain in one leg. You cough up blood. You notice blood in vomit, in a bowel movement, or in urine. MAKE SURE YOU: Understand these instructions. Will watch your condition. Will get help right away if you are not doing well or get worse. Document Released: 09/06/2006 Document Revised: 06/27/2014 Document Reviewed: 05/14/2014 [facility] Patient Information 2015 [employer]. This information is not intended to replace advicegiven to you by your health care provider. Make sure you discuss any questions you have with your health care provider. Bleeding Precautions When on Anticoagulant Therapy, Adult Anticoagulant therapy, also called blood thinner therapy, is medicine that helps to prevent and treat blood clots. The medicine works by stopping blood clots from forming or growing. Blood clots thatform in your blood vessels can be dangerous. They can break loose and travel to the heart, lungs, or brain. This increases the risk of a heart attack, stroke, or blocked lung artery (pulmonary embolism). Anticoagulants also increase the risk of bleeding. Try to protect yourself from cuts and other injuries that can cause bleeding. It is important to take anticoagulants exactly as told by your health care provider. Why do I need to be on anticoagulant therapy? You may need this medicine if you are at risk of developing a blood clot. Conditions that increase your risk of a blood clot include: Being born with heart disease or a heart malformation (congenital heart disease). Developing heart disease. Having had surgery, such as valve replacement. Having had a serious accident or other type of severe injury (trauma). Having certain types of cancer. Having certain diseases that can increase blood clotting. Having a high risk of stroke or heart attack. Having atrial fibrillation (AF). What are the common anticoagulant medicines? There are several types of anticoagulant medicines. The most common types are: Medicines that you take by mouth (oral medicines), such as: ? Warfarin. ? Novel oral anticoagulants (NOACs), such as: ? Direct thrombin inhibitors (dabigatran). ? Factor Xa inhibitors (apixaban, edoxaban, and rivaroxaban). Injections, such as: ? Unfractionated heparin. ? Low molecular weight heparin. These anticoagulants work in different ways to prevent blood clots. They also have different risks and side effects. What do I need to remember while on anticoagulant therapy? Taking anticoagulants Take your medicine at the same time every day. If you forget to take your medicine, take it as soonas you remember. Do not double your dosage of medicine if you miss a whole day. Take your normal dose and call your health care provider. Do not stop taking your medicine unless your health care provider approves. Stopping the medicine can increase your risk of developing a blood clot. Taking other medicines Take sodg-adf-ohisujv and prescriptions medicines only as told by your health care provider. Do not take rxul-yes-qutaivq NSAIDs, including aspirin and ibuprofen, while you are on anticoagulant therapy. These medicines increase your risk of dangerous bleeding. Get approval from your health care provider before you start taking any new medicines, vitamins, orherbal products. Some of these could interfere with your therapy. General instructions Keep all follow-up visits as told by your health care provider. This is important. If you are or trying to get , talk with a health care provider about anticoagulants. Some of these medicines are not safe to take during . Tell all health care providers, including your dentist, that you are on anticoagulant therapy. It is especially important to tell providers before you have any surgery, medical procedures, or dental work done. What precautions should I take? Be very careful when using knives, scissors, or other sharp objects. Use an electric razor instead of a blade. Do not use toothpicks. Use a soft-bristled toothbrush. [place] your teeth gently. Always wear shoes outdoors and wear slippers indoors. Be careful when cutting your fingernails and toenails. Place bath mats in the bathroom. If possible, install handrails as well. Wear gloves while you do yard work. Wear your seat belt. Prevent falls by removing loose rugs and extension cords from areas where you walk. Use a cane or walker if you need it. Avoid constipation by: ? Drinking enough fluid to keep your urine clear or pale yellow. ? Eating foods that are high in fiber, such as fresh fruits and vegetables, whole grains, and beans. ? Limiting foods that are high in fat and processed sugars, such as fried and sweet foods. Do not play contact sports or participate in other activities that have a high risk for injury. What other precautions are important if on warfarin therapy? If you are taking a type of anticoagulant called warfarin, make sure you: Work with a diet and nutrition representative (dietitian) to make an eating plan. Do not make any sudden changes to your diet after you have started your eating plan. Do not drink alcohol. It can interfere with your medicine and increase your risk of an injury that causes bleeding. Get regular blood tests as told by your health care provider. What are some questions to ask my health care provider? Why do I need anticoagulant therapy? What is the best anticoagulant therapy for my condition? How long will I need anticoagulant therapy? What are the side effects of anticoagulant therapy? When should I take my medicine? What should I do if I forget to take it? Will I need to have regular blood tests? Do I need to change my diet? Are there foods or drinks that I should avoid? What activities are safe for me? What should I do if I want to get ? Contact a health care provider if: You miss a dose of medicine: ? And you are not sure what to do. ? For more than one day. You have: ? Menstrual bleeding that is heavier than normal. ? Bloody or brown urine. ? Easy bruising. ? Black and tarry stool or bright red stool. ? Side effects from your medicine. You feel weak or dizzy. You become . Get help right away if: You have bleeding that will not stop within 20 minutes from: ? The nose. ? The gums. ? A cut on the skin. You have a severe headache or stomachache. You vomit or cough up blood. You fall or hit your head. Summary Anticoagulant therapy, also called blood thinner therapy, is medicine that helps to prevent and treat blood clots. Anticoagulants work in different ways to prevent blood clots. They also have different risks and side effects. Talk with your health care provider about any precautions that you should take while on anticoagulant therapy. This information is not intended to replace advice given to you by your health care provider. Make sure you discuss any questions you have with your health care provider. Document Released: 08/17/2016 Document Revised: 12/27/2019 Document Reviewed: 11/23/2017 Elsevier Patient Education 2020 [employer] Additional Information VACCINATE! IT SAVES LIVES! Members of the community who have not yet received the COVID-19 vaccine and would like to receive it can visit one of [facility] vaccine clinics. There are many vaccine clinic locations within the [facility]. For locations and available times, please visit [email or web address] It is important to note that some COVID mobile vaccine clinics are held outdoors and may be canceled in rainy or stormy conditions. To learn more about pediatric vaccinations (ages 5-11), we invite you to visit the [facility] webpage. [email or web address] learn more about the COVID-19 vaccine, we invite you to visit the [facility] website for a list of frequently asked questions. [email or web address] [facility] Patient Portal Access Instructions: Stay connected with your healthcare team and access your personal medical information anytime with the [email or web address] Patient Portal.If you would like a full copy of your medical records, please contact the [facility] Medical Records Department, Wednesday through Wednesday between 8a.m. and 4:30p.m. Please follow the directions below to access the portal: 1.Access the email account you provided upon registration to the [facility].2.Look for an invitation email from [facility].3.Open the email and access the invitation link: Accept Invitation to [email or web address].Fill in the required hammond to create your account. Sign into [email or web address] with your username and password that you created in the above steps to stay up to date. You can then view a summary of results, a summary of your visits, and the ability to download your summaries to your computer or send the information securely to a physician. Remember that your healthcare information is confidential, so carefully consider who you will allow to register on the [email or web address] Patient Portal for access to your information. You can also access the [email or web address] Patient Portal on the [employer]. Simply click on Health Records under [employer] and then click on the [employer]Sol logo. HOW TO SAFELY DISPOSE OF PRESCRIPTION MEDICATIONS Please use one of the following methods to safely dispose of your unused medications. 1.Use a drug disposal kit: the drug disposal pouch allows you to safely discard your old and unuseddrugs. Ask your nurse to give you one when you are discharged.2.Visit a local take-back location: Many local pharmacies and police departments have programs that collect old and unwanted prescriptiondrugs. Call your local pharmacy or go to [email or web address]/6E3Xp7h to find one close to you.3.Make use of household items: Use cat litter or old coffee grounds to dispose medications if other options arenot available. Mix your drugs with these household products, seal them in an airtight container andthrow it into the garbage. Call [facility]: [phone] to be sure your drugs can be disposed of in this way. Some medicines may require a different approach.4.Never flush your medications down the toilet. IF YOU HAVE BEEN PRESCRIBED AN OPIOID FOR PAIN If you have been prescribed an opioid (such as hydrocodone, oxycodone or morphine), it is critical to understand the possible side effects and risks of opioid pain medications. Even when taken as directed, opioids can have several side effects including: Tolerance, meaning you might need to take more of a medication for the same pain relief. Nausea, vomiting and/or constipation. Sleepiness, dizziness, dry mouth, confusion, depression or itching. Physical dependence, meaning you have withdrawal symptoms when a medication is stopped, can develop within a few days. KNOW YOUR RESPONSIBILITIES It is important to know exactly how much and how often to take the opioid pain medications you are prescribed. Never take opioids in higher amounts or more often than prescribed. Do not combine opioids with alcohol or other drugs that cause drowsiness, such as benzodiazepines, also known as benzos, including diazepam and alprazolam, muscle relaxants or sleep aids. Never sell or share prescription opioids. This is illegal. Store opioids in a secure place and out of reach of others (including children, family, friends and visitors). The last page of this document has been signed and retained as a CHART COPY. Signatures Patient Education Materials Deep Vein Thrombosis Bleeding Precautions When on Anticoagulant Therapy, Adult Medication Leaflets My discharge plan and instructions have been reviewed and explained to me and ILUIS LYNDA J understand my current condition and have read and understand these discharge instructions. I have received a written copy of the plan/instructions. If I have questions, I am aware that I should contact my martha negro. Patient/Human Services Professional Signature: Date/Time: Relationship to Patient: Witness Name/Signature: Date/Time: [facility] [id number] Hospital Discharge instructions Patient Education 05/20/2022 13:43:20 Deep Vein Thrombosis Deep Vein Thrombosis A deep vein thrombosis (DVT) is a blood clot that develops in the deep, larger veins of the leg, arm, or pelvis. These are more dangerous than clots that might form in veins near the surface of the body. A DVT can lead to complications if the clot breaks off and travels in the bloodstream to the lungs. A DVT can damage the valves in your leg veins, so that instead of flowing upward, the blood pools in the lower leg. This is called post-thrombotic syndrome, and it can result in pain, swelling, discoloration, and sores on the leg. CAUSES Usually, several things contribute to blood clots forming. Contributing factors include: The flow of blood slows down. The inside of the vein is damaged in some way. You have a condition that makes blood clot more easily. RISK FACTORS Some people are more likely than others to develop blood clots. Risk factors include: Older age, especially over 75 years of age. Having a family history of blood clots or if you have already had a blot clot. Having major or lengthy surgery. This is especially true for surgery on the hip, knee, or belly (abdomen). Hip surgery is particularly high risk. Breaking a hip or leg. Sitting or lying still for a long time. This includes long-distance travel, paralysis, or recovery from an illness or surgery. Having cancer or cancer treatment. Having a long, thin tube (catheter) placed inside a vein during a medical procedure. Being overweight (obese). and childbirth. ? Hormone changes make the blood clot more easily during . ? The fetus puts pressure on the veins of the pelvis. ? There is a risk of injury to veins during delivery or a caesarean. The risk is highest just afterchildbirth. Medicines with the female hormone estrogen. This includes control pills and hormone replacement therapy. Smoking. Other circulation or heart problems. SIGNS AND SYMPTOMS When a clot forms, it can either partially or totally block the blood flow in that vein. Symptoms of a DVT can include: Swelling of the leg or arm, especially if one side is much worse. Warmth and redness of the leg or arm, especially if one side is much worse. Pain in an arm or leg. If the clot is in the leg, symptoms may be more noticeable or worse when standing or walking. The symptoms of a DVT that has traveled to the lungs (pulmonary embolism, PE) usually start suddenly and include: Shortness of breath. Coughing. Coughing up blood or blood-tinged phlegm. Chest pain. The chest pain is often worse with deep breaths. Rapid heartbeat. Anyone with these symptoms should get emergency medical treatment right away. Call your local emergency services (911 in the [place] if you have these symptoms. DIAGNOSIS If a DVT is suspected, your health care provider will take a full medical history and perform a physical exam. Tests that also may be required include: Blood tests, including studies of the clotting properties of the blood. Ultrasonography to see if you have clots in your legs or lungs. X-rays to show the flow of blood when dye is injected into the veins (venography). Studies of your lungs if you have any chest symptoms. PREVENTION Exercise the legs regularly. Take a brisk 30-minute walk every day. Maintain a weight that is appropriate for your height. Avoid sitting or lying in bed for long periods of time without moving your legs. Women, particularly those over the age of 35 years, should consider the risks and benefits of taking estrogen medicines, including control pills. Do not smoke, especially if you take estrogen medicines. Long-distance travel can increase your risk of DVT. You should exercise your legs by walking or pumping the muscles every hour. In-hospital prevention: ? Many of the risk factors above relate to situations that exist with hospitalization, either for illness, injury, or elective surgery. ? Your health care provider will assess you for the need for venous thromboembolism prophylaxis when you are admitted to the hospital. If you are having surgery, your surgeon will assess you the day of or day after surgery. ? Prevention may include medical and nonmedical measures. TREATMENT Once identified, a DVT can be treated. It can also be prevented in some circumstances. Once you have had a DVT, you may be at increased risk for a DVT in the future. The most common treatment for DVTis blood thinning (anticoagulant) medicine, which reduces the blood's tendency to clot. Anticoagulants can stop new blood clots from forming and stop old ones from growing. They cannot dissolve existing clots. Your body does this by itself over time. Anticoagulants can be given by mouth, by IV access, or by injection. Your health care provider will determine the best program for you. Other medicines or treatments that may be used are: Heparin or related medicines (low molecular weight heparin) are usually the first treatment for a blood clot. They act quickly. However, they cannot be taken orally. ? Heparin can cause a fall in a component of blood that stops bleeding and forms blood clots (platelets). You will be monitored with blood tests to be sure this does not occur. Warfarin is an anticoagulant that can be swallowed. It takes a few days to start working, so usually heparin or related medicines are used in combination. Once warfarin is working, heparin is usuallystopped. Less commonly, clot dissolving drugs (thrombolytics) are used to dissolve a DVT. They carry a high risk of bleeding, so they are used mainly in severe cases, where your life or a limb is threatened. Very rarely, a blood clot in the leg needs to be removed surgically. If you are unable to take anticoagulants, your health care provider may arrange for you to have a filter placed in a main vein in your abdomen. This filter prevents clots from traveling to your lungs. HOME CARE INSTRUCTIONS Take all medicines prescribed by your health care provider. Only take kztb-bnp-ffzlcmf or prescription medicines for pain, fever, or discomfort as directed by your health care provider. Warfarin. Most people will continue taking warfarin after hospital discharge. Your health care provider will advise you on the length of treatment (usually 3 6 months, sometimes lifelong). ? Too much and too little warfarin are both dangerous. Too much warfarin increases the risk of bleeding. Too little warfarin continues to allow the risk for blood clots. While taking warfarin, you will need to have regular blood tests to measure your blood clotting time. These blood tests usually include both the prothrombin time (PT) and international normalized ratio (INR) tests. The PT and INRresults allow your health care provider to adjust your dose of warfarin. The dose can change for many reasons. It is critically important that you take warfarin exactly as prescribed, and that you have your PT and INR levels drawn exactly as directed. ? Many foods, especially foods high in vitamin K, can interfere with warfarin and affect the PT andINR results. Foods high in vitamin K include spinach, kale, broccoli, cabbage, anel and turnip greens, brussel sprouts, peas, cauliflower, seaweed, and parsley as well as beef and pork liver, green tea, and soybean oil. You should eat a consistent amount of foods high in vitamin K. Avoid major changes in your diet, or notify your health care provider before changing your diet. Arrange a visit with a dietitian to answer your questions. ? Many medicines can interfere with warfarin and affect the PT and INR results. You must tell your health care provider about any and all medicines you take. This includes all vitamins and supplements. Be especially cautious with aspirin and anti-inflammatory medicines. Ask your health care provider before taking these. Do not take or discontinue any prescribed or ptzh-oqv-qbamkkc medicine excepton the advice of your health care provider or pharmacist. ? Warfarin can have side effects, primarily excessive bruising or bleeding. You will need to hold pressure over cuts for longer than usual. Your health care provider or pharmacist will discuss other potential side effects. ? Alcohol can change the body's ability to handle warfarin. It is best to avoid alcoholic drinks orconsume only very small amounts while taking warfarin. Notify your health care provider if you change your alcohol intake. ? Notify your dentist or other health care providers before procedures. Activity. Ask your health care provider how soon you can go back to normal activities. It is important to stay active to prevent blood clots. If you are on anticoagulant medicine, avoid contact sports. Exercise. It is very important to exercise. This is especially important while traveling, sitting, or standing for long periods of time. Exercise your legs by walking or by pumping the muscles frequently. Take frequent walks. Compression stockings. These are tight elastic stockings that apply pressure to the lower legs. This pressure can help keep the blood in the legs from clotting. You may need to wear compression stockings at home to help prevent a DVT. Do not smoke. If you smoke, quit. Ask your health care provider for help with quitting smoking. Learn as much as you can about DVT. Knowing more about the condition should help you keep it from coming back. Wear a medical alert bracelet or carry a medical alert card. SEEK MEDICAL CARE IF: You notice a rapid heartbeat. You feel weaker or more tired than usual. You feel faint. You notice increased bruising. You feel your symptoms are not getting better in the time expected. You believe you are having side effects of medicine. SEEK IMMEDIATE MEDICAL CARE IF: You have chest pain. You have trouble breathing. You have new or increased swelling or pain in one leg. You cough up blood. You notice blood in vomit, in a bowel movement, or in urine. MAKE SURE YOU: Understand these instructions. Will watch your condition. Will get help right away if you are not doing well or get worse. Document Released: 09/06/2006 Document Revised: 06/27/2014 Document Reviewed: 05/14/2014 Exit[employer] Patient Information 2015 [employer]. This information is not intended to replace advicegiven to you by your health care provider. Make sure you discuss any questions you have with your health care provider. 05/20/2022 13:43:19 Bleeding Precautions When on Anticoagulant Therapy, Adult Bleeding Precautions When on Anticoagulant Therapy, Adult Anticoagulant therapy, also called blood thinner therapy, is medicine that helps to prevent and treat blood clots. The medicine works by stopping blood clots from forming or growing. Blood clots thatform in your blood vessels can be dangerous. They can break loose and travel to the heart, lungs, or brain. This increases the risk of a heart attack, stroke, or blocked lung artery (pulmonary embolism). Anticoagulants also increase the risk of bleeding. Try to protect yourself from cuts and other injuries that can cause bleeding. It is important to take anticoagulants exactly as told by your health care provider. Why do I need to be on anticoagulant therapy? You may need this medicine if you are at risk of developing a blood clot. Conditions that increase your risk of a blood clot include: Being born with heart disease or a heart malformation (congenital heart disease). Developing heart disease. Having had surgery, such as valve replacement. Having had a serious accident or other type of severe injury (trauma). Having certain types of cancer. Having certain diseases that can increase blood clotting. Having a high risk of stroke or heart attack. Having atrial fibrillation (AF). What are the common anticoagulant medicines? There are several types of anticoagulant medicines. The most common types are: Medicines that you take by mouth (oral medicines), such as: ?Warfarin. ?Novel oral anticoagulants (NOACs), such as: ?Direct thrombin inhibitors (dabigatran). ?Factor Xa inhibitors (apixaban, edoxaban, and rivaroxaban). Injections, such as: ?Unfractionated heparin. ?Low molecular weight heparin. These anticoagulants work in different ways to prevent blood clots. They also have different risks and side effects. What do I need to remember while on anticoagulant therapy? Taking anticoagulants Take your medicine at the same time every day. If you forget to take your medicine, take it as soonas you remember. Do not double your dosage of medicine if you miss a whole day. Take your normal dose and call your health care provider. Do not stop taking your medicine unless your health care provider approves. Stopping the medicine can increase your risk of developing a blood clot. Taking other medicines Take vpma-jye-urmhygf and prescriptions medicines only as told by your health care provider. Do not take xhwb-oso-upxocpp NSAIDs, including aspirin and ibuprofen, while you are on anticoagulant therapy. These medicines increase your risk of dangerous bleeding. Get approval from your health care provider before you start taking any new medicines, vitamins, orherbal products. Some of these could interfere with your therapy. General instructions Keep all follow-up visits as told by your health care provider. This is important. If you are or trying to get , talk with a health care provider about anticoagulants. Some of these medicines are not safe to take during . Tell all health care providers, including your dentist, that you are on anticoagulant therapy. It is especially important to tell providers before you have any surgery, medical procedures, or dental work done. What precautions should I take? Be very careful when using knives, scissors, or other sharp objects. Use an electric razor instead of a blade. Do not use toothpicks. Use a soft-bristled toothbrush. [place] your teeth gently. Always wear shoes outdoors and wear slippers indoors. Be careful when cutting your fingernails and toenails. Place bath mats in the bathroom. If possible, install handrails as well. Wear gloves while you do yard work. Wear your seat belt. Prevent falls by removing loose rugs and extension cords from areas where you walk. Use a cane or walker if you need it. Avoid constipation by: ?Drinking enough fluid to keep your urine clear or pale yellow. ?Eating foods that are high in fiber, such as fresh fruits and vegetables, whole grains, and beans. ?Limiting foods that are high in fat and processed sugars, such as fried and sweet foods. Do not play contact sports or participate in other activities that have a high risk for injury. What other precautions are important if on warfarin therapy? If you are taking a type of anticoagulant called warfarin, make sure you: Work with a diet and nutrition representative (dietitian) to make an eating plan. Do not make any sudden changes to your diet after you have started your eating plan. Do not drink alcohol. It can interfere with your medicine and increase your risk of an injury that causes bleeding. Get regular blood tests as told by your health care provider. What are some questions to ask my health care provider? Why do I need anticoagulant therapy? What is the best anticoagulant therapy for my condition? How long will I need anticoagulant therapy? What are the side effects of anticoagulant therapy? When should I take my medicine? What should I do if I forget to take it? Will I need to have regular blood tests? Do I need to change my diet? Are there foods or drinks that I should avoid? What activities are safe for me? What should I do if I want to get ? Contact a health care provider if: You miss a dose of medicine: ?And you are not sure what to do. ?For more than one day. You have: ?Menstrual bleeding that is heavier than normal. ?Bloody or brown urine. ?Easy bruising. ?Black and tarry stool or bright red stool. ?Side effects from your medicine. You feel weak or dizzy. You become . Get help right away if: You have bleeding that will not stop within 20 minutes from: ?The nose. ?The gums. ?A cut on the skin. You have a severe headache or stomachache. You vomit or cough up blood. You fall or hit your head. Summary Anticoagulant therapy, also called blood thinner therapy, is medicine that helps to prevent and treat blood clots. Anticoagulants work in different ways to prevent blood clots. They also have different risks and side effects. Talk with your health care provider about any precautions that you should take while on anticoagulant therapy. This information is not intended to replace advice given to you by your health care provider. Make sure you discuss any questions you have with your health care provider. Document Released: 08/17/2016 Document Revised: 12/27/2019 Document Reviewed: 11/23/2017 [employer] Patient Education 2019 [employer] Follow Up Care 05/18/2022 14:23:08 With:AMY LINDER MD, [facility], Surgery, Vascular Surgeons Address: [facility] [address] [address] [place] [address] When: Unknown Comments:Please call to schedule an appointment. I was unable to reach them. With:LIDIA LOPEZ MD Address: [address] [place] [address]- When:06/01/2022 14:15:00 Comments:Follow-up as scheduled [facility] 08-30-2022 Note Date of Service 05/19/2022 Chief Complaint abdominal discomfort Subjective Patient seen and evaluated while resting in bed. She states that her leg feels about the same this morning. It is not painful when she is resting but does become painful when she gets up. She does feel that it is less edematous today. She complains of abdominal discomfort with palpation of her abdomen but states that when she went to [facility] last week a CT of abdomen/pelvis wasdone. She adds that she was told it did not show anything. She denies any fever, chills, cough, shortness of breath, chest pain, nausea, or dysuria this morning. Patient advised that due to the clot burden in her right leg she should stay on the heparin drip for at least 24 hours. We will reassess in the morning. All questions answered. Objective Vitals and Measurements T: 37.1 C (Oral) TMIN: 36.6 C (Oral) TMAX: 37.2 C (Oral) HR: 91(Monitored) RR: 18 BP: 101/69 SpO2: 96% HT: 150 cm WT: 68.9 kg BMI: 32.67 Intake and Output 7AM Yesterday to 7AM Today Intake and Output (Last 24 hours) Intake Output Urine Voided 400.00 Total Summary Total Intake 0.00 Total Output 400.00 Fluid Balance -400.00 Physical Exam General: No acute distress. Patient is alert and appropriate. Skin: No rash. Skin is warm, dry and intact. HEENT: Head is normocephalic, atraumatic. Pupils are equal, round and reactive. Mouth is without lesion. Nose without septal deviation. Neck: Supple. No lymphadenopathy, thyromegaly. Lungs: Bilaterally clear but diminished without crepitation or wheeze. Unlabored. Heart: Heart is regular rhythm, S1, S2. No murmurs, gallops or rubs. Abdomen: Abdomen is soft, nontender, obese. Bowels sounds present in all quadrants. Colostomy notedin right lower quadrant. Extremities: No clubbing, cyanosis. Trace generalized edema noted in right lower extremity. Peripheral pulses palpable. No calf tenderness. Neurological: Patient is awake and alert to person, place and time. Following simple commands, moving all extremities. Weight Current Weight Dosing Weight: 73.5 kg (05/18/22) Current Weight: 68.9 kg (05/19/22) Dosing Weight: 73.5 kg (05/18/22) Medications Medications (16) Active Scheduled: (4) levothyroxine 112 mcg tablet 112 mcg 1 tab(s), Oral, qDay metoprolol tartrate 25 mg tablet 25 mg 1 tab(s), Oral, qDay morphine 4 mg/mL 1mL INJ 2 mg 0.5 mL, IV Push, q4h pantoprazole 20 mg EC tablet 40 mg 2 tab(s), Oral, BIDAC Continuous: (1) heparin 25,000 unit(s) [18 unit(s)/kg/hr] + Dextrose 5% Premix Diluent 250 mL 250 mL, Intravenous, 13.23 mL/hr PRN: (11) acetaminophen 325 mg Tablet 650 mg 2 tab(s), Oral, q4h acetaminophen 325 mg Tablet 650 mg 2 tab(s), Oral, q4h acetaminophen-OXYcodone 325 mg-5 mg Tablet 1 tab(s), Oral, q4h benzonatate 100 mg Capsule 100 mg 1 cap(s), Oral, TID calcium carbonate 500 mg Chewable 500 mg 1 tab(s), Chewed, TID docusate sodium 100 mg Capsule 100 mg 1 cap(s), Oral, BID guaifenesin 100 mg/5 mL 120 mL liquid 200 mg 10 mL, Oral, q4h heparin 5,000 units/mL (1 mL) vial 5,145 unit(s) 1.03 mL, IV Push, q6h heparin 5,000 units/mL (1 mL) vial 2,940 unit(s) 0.59 mL, IV Push, q6h melatonin 3 mg tablet 6 mg 2 tab(s), Oral, qHS ondansetron 2 mg/ 1 mL 2 mL INJ 4 mg 2 mL, IV Push, q4h Lab Results 05/19 04:07 WBC: 12.7 H Hgb: 11.4 L Hct: 33.4 L Platelet: 154 Neutrophil %: 49.5 Glucose Level: 106 Sodium Level: 133 L Potassium Level: 3.6 BUN: 17 Creatinine Lvl (s): 0.91 05/18 15:55 WBC: 13.0 H Hgb: 11.4 L Hct: 33.2 L Platelet: 145 Neutrophil %: 67.4 Protime: 12.3 PT International Ratio: 1.1 Glucose Level: 106 Sodium Level: 132 L Potassium Level: 3.9 BUN: 18 Creatinine Lvl (s): 0.96 Assessment/Plan 1. Acute DVT (deep venous thrombosis) Acute, new onset *Prior history of large DVT in left leg - has been off Eliquis for one year. *Would like to go back on Eliquis on discharge. *Continue weight-based Heparin drip for 24-48 hours. *Transition back to Eliquis as appropriate. *Keep leg elevated when in bed. *Monitor aPTT every 6 hours. *Repeat CBC and BMP in the am. 2. Leg pain-swelling Acute, new onset, secondary to DVT, improved *Plan as above. 3. Tachycardia Chronic, controlled *Continue Metoprolol at home dose. *Monitor on telemetry. 4. Hypothyroidism Chronic *Continue Levothyroxine at current dose. 5. GERD (gastroesophageal reflux disease) Chronic *Continue Protonix 40 mg PO daily. 6. Leukemia Chronic, in remission *Patient has a history of AML - s/p bone marrow transplant, chemo. DVT prophylaxis with weight-based heparin drip. Code status: Full Code. Labs, diagnostic test and progress notes reviewed as noted in HPI. Plan of care discussed with patient. All questions answered. Patient verbalizes understanding and is agreeable with plan of care. This case was discussed with collaborating physician, Dr. Casimiro Salazar. Time Spent 35 minutes. Digitally Signed by GENESIS WONG on 05/19/2022 11:19 AM [facility]08-29-2022 Note Date of Service 05/18/2022 Chief Complaint Saw pcp wednesday placed on prednisone & [facility] wed & wednesday put on percocet. Having issues weight bearing History of Present Illness Patient is a 72-year-old female, who follows with Dr. Lidia Lopez with a past medical history significant for prior DVT, leukemia (in remission), and hypothyroidism, presents to [facility] emergency department with the chief complaint of right leg pain. Patient states that she developed right leg discomfort on . She did go see her PCP due to patient concerns that she couldhave another DVT. Her PCP did not think she had a DVT and prescribed prednisone for the patient. After taking the prednisone for a few days, the pain did not improve and patient also presented to [facility] on Wednesday, and was started on Percocet for the pain. Patient came intoday because she was having difficulty bearing weight on her right leg due to pain and due to the significant amount of swelling she is having in this leg. Patient had been on Eliquis up until abouta year ago for her prior DVT. Patient denies any other symptoms including fever, chills, cough, shortness of breath, chest pain, abdominal pain, nausea or dysuria. In the emergency department, venous doppler of right leg revealed abnormal compressibility in rightlower extremity deep veins, evidence of acute intraluminal echogenicity, the intraluminal echogenicity involves the right distal external iliac vein, right common femoral vein, right femoral vein, right deep femoral vein and right posterior tibial vein; right lower extremity superficial veins demonstrate abnormal compressibility with evidence of acute intraluminal echogenicity in the proximal right great saphenous vein. White blood cell count 13.0, hemoglobin 11.4, and hematocrit 11.4. BMP is pending. Urinalysis was unremarkable. Patient was started on a weight-based heparin drip in the ED. She will be transferred to telemetry for further evaluation and treatment. We will continue the Heparin drip and check aPTT every 6 hours with adjustment as needed. Repeat CBC and BMP in the am. Review of Systems Review of Systems: Reviewed in detail, including general health, HEENT, cardiovascular, respiratory, gastrointestinal, genitourinary, endocrine, musculoskeletal, neurologic, vascular, skin, and psychiatric. All are negative except for those listed in the History of Present Illness. Physical Exam Vitals and Measurements T: 36.6 C (Oral) HR: 77 RR: 16 BP: 120/97 SpO2: 96% HT: 150 cm WT: 73.5 kg Weight Dosing Weight: 73.5 kg (05/18/22) Dosing Weight: 73.5 kg (05/18/22) General: No acute distress. Patient is alert and appropriate. Skin: No rash. Skin is warm, dry and intact. HEENT: Head is normocephalic, atraumatic. Pupils are equal, round and reactive. Mouth is without lesion. Nose without septal deviation. Neck: Supple. No lymphadenopathy, thyromegaly. Lungs: Bilaterally clear but diminished without crepitation or wheeze. Unlabored. Heart: Heart is regular rhythm, S1, S2. No murmurs, gallops or rubs. Abdomen: Abdomen is soft, nontender, obese. Bowels sounds present in all quadrants. Extremities: No clubbing, cyanosis. Generalized edema noted in right lower extremity and foot. Peripheral pulses palpable. Neurological: Patient is awake and alert to person, place and time. Following simple commands, moving all extremities. Lab Results 05/18 15:55 WBC: 13.0 H Hgb: 11.4 L Hct: 33.2 L Platelet: 145 Neutrophil %: 67.4 Assessment/Plan 1. Acute DVT (deep venous thrombosis) Acute, new onset *Prior history of large DVT in left leg - has been off Eliquis for one year. *Would like to go back on Eliquis on discharge. *Continue weight-based Heparin drip for 24-48 hours. *Transition back to Eliquis as appropriate. *Keep leg elevated tonight. *Monitor aPTT every 6 hours. *Repeat CBC and BMP in the am. 2. Leg pain-swelling Acute, new onset, secondary to DVT *Plan as above. 3. Tachycardia Chronic, controlled *Continue Metoprolol at home dose. *Monitor on telemetry. 4. Hypothyroidism Chronic *Continue Levothyroxine at current dose. 5. GERD (gastroesophageal reflux disease) Chronic *Start Protonix 40 mg PO daily. DVT prophylaxis with weight-based heparin drip. Code status: Full Code. Labs, diagnostic test and progress notes reviewed as noted in HPI. Plan of care discussed with patient. All questions answered. Patient verbalizes understanding and is agreeable with plan of care. This case was discussed with collaborating physician, Dr. Casimiro Salazar. Problem List/Past Medical History Ongoing Acute DVT (deep venous thrombosis) GERD (gastroesophageal reflux disease) Hypothyroidism Historical No qualifying data Procedure/Surgical History Total hip replacement section Colostomy Medications Home Medications (11) Active acetaminophen-oxyCODONE 325 mg-5 mg oral tablet 2 tab(s), PRN, Oral, q6h betamethasone-clotrimazole 0.05%-1% topical cream 1 bridger, Topical, BID esomeprazole 40 mg oral delayed release capsule 40 mg = 1 cap(s), Oral, qDay lidocaine 5% topical ointment 1 bridger, PRN, Topical, QID Lopressor 25mg--USE metoprolol tartrate 25 mg oral tablet nitrofurantoin macrocrystals-monohydrate 100 mg oral capsule 100 mg = 1 cap(s), Oral, BID sodium bicarbonate 650 mg oral tablet 650 mg = 1 tab(s), Oral, BID sulfamethoxazole-trimethoprim 800 mg-160 mg oral tablet 4 mg/kg, Oral, q12h Synthroid 112 mcg (0.112 mg) oral tablet 112 mcg = 1 tab(s), Oral, qDay Vitamin D2 1.25 mg (50,000 intl units) oral capsule 50,000 International_Unit = 1 cap(s), Oral, qWeek Vitamin D3 50 mcg (2000 intl units) oral capsule 1 tab(s), Oral, Daily Allergies iodine Social History Alcohol Use: Past., 05/18/2022 Substance Abuse Use: Never., 05/18/2022 Tobacco Nicotine Use: Former smoker, quit more than 30 days ago., 05/18/2022 Family History CHF (congestive heart failure): Mother. Cancer: Father. Diabetes mellitus: Mother. Liver: Father. Thyroid: Brother. Immunizations No qualifying data available. Code Status No qualifying data available. Digitally Signed by GENESIS WONG on 05/18/2022 04:59 PM [facility]08-29-2022 Evaluation + Plan noteExtracted from: Title:History and Physical Author:GENESIS WONG APRN-LEAD HOUSEKEEPER Date:05/18/22 1. Acute DVT (deep venous th rombosis) Acute, new onset *Prior history of large DVT in left leg - has been off Eliquis for one year. *Would like to go back on Eliquis on discharge. *Continue weight-based Heparin drip for 24-48 hours. *Transition back to Eliquis as appropriate. *Keep leg elevated tonight. *Monitor aPTT every 6 hours. *Repeat CBC and BMP in the am. 2. Leg pain-swelling Acute, new onset, secondary to DVT *Plan as above. 3. Tachycardia Chronic, controlled *Continue Metoprolol at home dose. *Monitor on telemetry. 4. Hypothyroidism Chronic *Continue Levothyroxine at current dose. 5. GERD (gastroesophageal reflux disease) Chronic *Start Protonix 40 mg PO daily. DVT prophylaxis with weight-based heparin drip. Code status: Full Code. Labs, diagnostic test and progress notes reviewed as noted in HPI. Plan of care discussed with patient. All questions answered. Patient verbalizes understanding and is agreeable with plan of care. This case was discussed with collaborating physician, Dr. Casimiro Salazar. [facility] 08-26-2022 Miscellaneous Notes* Telephone Encounter - Selina Driscoll APRN.CNS - 05/15/2022 12:33 PM EDT noted, agree * Telephone Encounter - Esmer Batista RN - 05/15/2022 10:11 AM EDT Patient calls to report excruciating abdominal pain that radiates to back and down both legs. Patient reports that she is not able to move legs or walk. Instructed patient to call 911 and be evaluated in ED. Patient reports she will call and go to [facility] ED for another evaluation. Patient there on 05/13/2022 and being treated for URI and cystitis. Reason for Disposition Sounds like a life-threatening emergency to the triager Answer Assessment - Initial Assessment Questions 1. LOCATION: Patient calls to report abdominal pain that is excruciating the worst she has ever hadthat radiates to the back and down both legs. Patient reports that she is not able to move or walk because the pain is so bad. Patient crying and sounds like she is having terrible pain. 2. RADIATION: Back and down both legs 3. ONSET: Days ago was to ED but this morning it is worse. 4. SUDDEN: Sudden 5. PATTERN : Constant 6. SEVERITY: - SEVERE (8-10): excruciating pain, doubled over, unable to do any normal activities The worst pain patient has ever had 7. RECURRENT SYMPTOM: No 8. CAUSE: Pt doesn't know she said maybe cancer, kidney stones, UTI which was inconclusive. 9. RELIEVING/AGGRAVATING FACTORS: Nothing right now the worst pain every 10. OTHER SYMPTOMS: Trouble starting urine flow. No vomiting, diarrhea, or constipation. 11. : No Protocols used: Abdominal Pain - [id number] documented in this encounterSum[facility] Miscellaneous Notes* Telephone Encounter - Yuly Cote RN - 05/14/2022 12:26 PM EDT Patient notified and voiced understanding. Yuly Cote RN * Telephone Encounter - Nithya Casiano MD - 05/14/2022 12:17 PM EDT Alexa- I am so sorry you are having such a difficult time and so much pain w/ your vulva. Vulvar shingles can cause a lot of pain. You have so much going on I don't really know what else to tell you. I would continue with the acyclovir. take the macrobid. I really think you need to see Dr. Coronel again as I don't know what else to recommend and I know you are so miserable. Nithya Casiano MD * Telephone Encounter - Rosalia Perkins RN - 05/14/2022 11:53 AM EDT Patient seen at [facility] ER yesterday for low back pain and abdominal pain. Urinalysis was inconclusive.Macrobid was prescribed. Patient read on line that vaginal shingles could cause this type of pain. Patient was unable to sleep last night. While sitting still her pain is tolerable. She has approximately two days left of her 7 day course of Acyclovir. Could this be related to her pain, patient asking. Advised patient to also contact her PCP for continued pain. Rosalia Perkins RN documented in this encounterSumma Health [facility]08-19-2022 Miscellaneous Notes* Telephone Encounter - Lidia Lopez MD - 05/08/2022 8:02 PM EDT Called patient to see how she is doing and about the RX and then saw that MATCH UP WORKER had addressed the possibility of shingles affecting vulva. They have sent in the RX for acyclovir to [facility]. She gave the phone to her because he could understand better over the phone. He was not aware of the Rx going to [facility]. Explained that MATCH UP WORKER had addressed her question and I agreed with treatment. He expressed understanding. Follow up as needed. * Telephone Encounter - Shannon Brown LPN - 05/08/2022 2:19 PM EDT Patient calling she said she did not have nay spots on her buttocks when she was in the office on 05/06, now she has patches of spots on both buttocks and goes to her right hip. Patient said she has Acyclovir 400 mg tablet rx at home from before, she has been off of it for a month. Patient asking ifshe should be taking the Acyclovir rx? Patient said she thinks it is shingles. [facility] Please advise documented in this encounterSumma Health [facility]08-19-2022 Miscellaneous Notes* Telephone Encounter - Yuly Cote RN - 05/08/2022 4:57 PM EDT Patient notified and voiced understanding of information and instructions below. Yuly Cote RN * Telephone Encounter - Nidia Dennison APRN.CNM - 05/08/2022 4:48 PM EDT Yes, you can get shingles of the vulva, especially if her primary care thought it was on her buttock. Would recommend treatment with acyclovir 800mg five times a day for 7 days due to history. She iswelcome to check with her primary care but I can send in this prescription. Please have her follow up with PCP on Wednesday. If further outbreak to other areas, she may need to go to the emergency room for IV treatment due to her transplant history. Thank you, Nidia Dennison APRN.CNM * Telephone Encounter - Yuly Cote RN - 05/08/2022 2:12 PM EDT Patient was last seen in office on 04/24/22 for vaginal/vulvar pain. Patient using Lotrisone and Estrace currently on vaginal area. Patient has an extensive history and see Dr. David as well. Patient was seen recently by her PCP and states at that time she started with red bumps on her buttocks and was told by PCP that it looked like possible shingles. Patient was started on Prednisone by PCP and started that yesterday. Patient states those bumps on her buttocks have spread and are now on her vagina. Patient wanting to know if it is possible to get shingles in the vagina. Per patient she was on Acyclovir d/t history of transplant and finished the Acyclovir last month. Can you address patients questions in Dr. Corey's absence? Yuly Cote RN documented in this encounterSumma Health [facility]08-17-2022 History of Present illness Narrative* Lidia Lopez MD - 05/06/2022 6:18 PM EDT This note was created using Three Melonsriter. Subjective Cong Smith is a 72 year old female. Patient presents with: Pain (foot) SUBJECTIVE: Cong Smith is a 72 year old year old lady here today for follow up appointment for review of medical conditions. GVHD issues in vaginal area triggered. Was doing better on vagisil with dilators but got worse. Bumps in vaginal area.And severe pain. Seen by Dr. Lynch. ?Insect bite on buttocks. Like clumps of bumps Severe pain like needles being stuck in her. Feet get like pain like on fire. Pains down back of leg. Noted history of blood clots. Had swelling before with this. Wondered about steroid for now till decide on other meds to treat. From Dr. David 2016 GABAPENTIN CREAM 4 % Use 1 application vaginally three times daily. Dissolve gabapentin powder in ethoxy diglycol, levigate mixture into PCCA Lipoderm base, and dispense at 4%. Sometimes melatonin helps. PAST MEDICAL HISTORY Diagnosis Date Abnormal echocardiogram 06/03/2017 Abnormality of gait 08/10/2016 Acute pulmonary embolism (HCC) 08/06/2015 --Patient presented with pleuritic Chest Pain, Heparin gtt initiated until PE ruled out --Negative for PE CT with PE protocol. Heparin drip was discontinued. PEPE (acute kidney injury) (HCC) Non-oliguric renal failure. Creat increased to 1.6. Baseline sCr 0.6-1. --change fk to sirolimus. Resolved. 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 Dx 06/28/2014. -S/p induction with 7+3 + eltombopag (CASE 1493) course complicated by E.coli UTI and pulmonary nodule treated with posaconazole. -S/p 3 cycles of HiDAC, all courses complicated by neutropenic fevers and concern for worsening fungal pneumonia although this was not supported by cultures and bronchoscopy. 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 Treated w ganciclovir. 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 Lab draws: 11/28, 12/05, 12/12, 12/13, 4/8, 4/22, 5/6, 6/10 Grade GVHD: every Wednesday starting 12/05, and prior to discharge. Pseudophakia of both eyes RBBB (right bundle branch block) 10/01/2015 RUQ abdominal pain S/P bone marrow transplant ([facility]) 08/27/2015 AML. Per LDT [facility] charges 08/22/15 S/P partial colectomy 06/20/2015 --06/20/2015- ex lap, subtotal colectomy, and end ileostomy SBO (small bowel obstruction) ([facility]) 01/25/2017 Secondary adrenal insufficiency ([facility]) 09/07/2016 Squamous cell carcinoma Left cheek Syncope Type 2 diabetes mellitus with microalbuminuria, without long-term current use of insulin ([facility]) 07/02/2016 Unspecified hypothyroidism Current Outpatient Medications Medication Sig clotrimazole-betamethasone (LOTRISONE) cream Apply 1 application to affected area twice daily. lidocaine (XYLOCAINE) 5 % ointment Apply to affected area as needed (to urethral area). use a smallamount to affected area qid prn pain cyanocobalamin/cobamamide (B12 SUBLINGUAL) Dissolve under the tongue. levothyroxine (SYNTHROID) 112 mcg tablet Take 1 tablet by mouth once daily. Take on empty stomach. For Thyroid Magnesium Glycinate (MAG GLYCINATE) 100 mg tab Take 1 tablet by mouth twice daily. metoprolol tartrate, short acting, (LOPRESSOR) 25 mg tablet Take 1 tablet by mouth once daily. albuterol (PROVENTIL) 2.5 mg /3 mL (0.083 %) nebulizer solution Use 3 mL via nebulizer three times daily as needed for wheezing/shortness of breath. Inhale over 5-15 minutes sodium chloride (NEBUSAL) 3 % nebulizer solution Use 4 mL via nebulizer twice daily. estradiol (ESTRACE) 0.01 % (0.1 mg/gram) vaginal cream Use 0.5 g vaginally two times a week. esomeprazole (NEXIUM) 40 mg capsule TAKE 1 CAPSULE DAILY lifitegrast (XIIDRA) 5 % ophthalmic drops Use 1 Drop in both eyes twice daily. (Patient taking differently: Use 1 Drop in both eyes twice daily. Pt states only uses at night) acyclovir (ZOVIRAX) 400 mg tablet Take 1 tablet by mouth twice daily. mometasone (NASONEX) 50 mcg/actuation nasal spray Use 2 Sprays in the nose once daily. Rinse mouth after use. albuterol HFA (PROAIR HFA) 90 mcg/actuation inhaler Inhale 2 Puffs as instructed every 4 hours as needed for wheezing/shortness of breath. Nebulizer and Compressor For Neb 1 Each twice daily. tobramycin-dexAMETHasone (TOBRADEX) ophthalmic suspension Use 1 Drop in both eyes twice daily. fluorometholone (FML LIQUID FILM) 0.1 % ophthalmic suspension Use 1 Drop in both eyes twice daily. (Patient taking differently: Use 1 Drop in both eyes twice daily. Pt states takes when she needs) Flaxseed Oil 1,000 mg cap Take 1,000 mg by mouth once daily. 0.9 % sodium chloride (0.9% NACL) NURSING USE ONLY: USED FOR IMPLANTED VASCULAR ACCESS DEVICE (IVAD) ACCESS. AMBULATORY/OUTPATIENT: PLEASE REORDER UPON HOSPITAL DISCHARGE May access implanted vascular access device (IVAD) as needed for treatment. Flush IVAD with 10-20 mL NS every 4 weeks and PRN when IVAD not in use. sodium chloride (PRATIMA 128) 5 % ophthalmic solution Use 1 Drop in both eyes as needed. MULTIVITAMIN ORAL Take 1 tablet by mouth once daily. ipratropium bromide (ATROVENT) 42 mcg (0.06 %) nasal spray Use 2 Sprays in the nose twice daily as needed. Lactobacillus acidophilus (PROBIOTIC ORAL) Take 1 capsule by mouth once daily. folic acid 1 mg tablet Folic Acid Folic Acid Active 400 MCG DAILY May 06, 2019 11:16pm 05-06-2019 [facility] ([id number]) calcium-cholecalciferol, D3, (OSCAL+D 250) 250-125 mg-unit per tablet Take 1 tablet by mouth twice daily. magnesium oxide (MAG-OX) 400 mg (241.3 mg magnesium) tablet Take two tablets by mouth twice daily. COMPOUNDED PRESCRIPTION Needs supplies as listed below with refills to last a year Yolanda skin barrier [id number] Curitity gauze pad [id number] [place] cohesive seals [id number] Alcohol preps [id number] Skin prep wipes [id number] Adhesive remover [id number] Yolanda pouch [id number] Sure seals [id number] [place] Vera plus skin barrier [id number] Yolanda Karaya powder [id number] Adhesive remover wipes [id number] No current facility-administered medications for this visit. Review of Systems Objective BP 116/72 (BP Site: Right Arm, BP Position: Sitting, BP Cuff Size: Large Adult) Pulse 72 Temp 36.6 C (97.8 F) (Temporal) Resp 20 Wt 68.5 kg (151 lb) BMI 31.02 kg/m Physical Exam Constitutional: Appearance: Normal appearance. She is obese. HENT: Head: Normocephalic. Eyes: Conjunctiva/sclera: Conjunctivae normal. Cardiovascular: Rate and Rhythm: Normal rate and regular rhythm. Heart sounds: Normal heart sounds. Pulmonary: Effort: Pulmonary effort is normal. Breath sounds: Normal breath sounds. Skin: General: Skin is warm and dry. Comments: Cluster of 2 on right and 3 on left buttocks red papules. Raised. Does not have pustules or vesicles. Neurological: General: No focal deficit present. Mental Status: She is alert and oriented to person, place, and time. Psychiatric: Mood and Affect: Mood normal. Behavior: Behavior normal. Thought Content: Thought content normal. Judgment: Judgment normal. Component Latest Ref Rng & Units 03/04/2022 04/03/2022 05/04/2022 WBC 3.70 - 11.00 k/uL 8.11 10.44 RBC 3.90 - 5.20 m/uL 3.91 4.22 Hemoglobin 11.5 - 15.5 g/dL 13.9 14.6 Hematocrit 36.0 - 46.0 % 40.9 43.0 MCV 80.0 - 100.0 fL 104.6 (H) 101.9 (H) MCH 26.0 - 34.0 pg 35.5 (H) 34.6 (H) MCHC 30.5 - 36.0 g/dL 34.0 34.0 RDW-CV 11.5 - 15.0 % 14.6 14.0 Platelet Count 150 - 400 k/uL 230 232 MPV 9.0 - 12.7 fL 10.4 9.9 NRBC /100 WBC 0.0 0.0 Absolute nRBC <0.01 k/uL <0.01 <0.01 Neut% % 28.0 42.0 Abs Neut (ANC) 1.45 - 7.50 k/uL 2.27 4.38 Lymph% % 57.8 49.0 Abs Lymph 1.00 - 4.00 k/uL 4.69 (H) 5.12 (H) [place]% % 8.8 8.0 Abs [place] <0.87 k/uL 0.71 0.84 Eosin% % 4.7 1.0 Abs Eosin <0.46 k/uL 0.38 0.10 Baso% % 0.6 0.0 Abs Baso <0.11 k/uL 0.05 0.00 Platelet Estimate Adequate Red Cell Morph Reviewed: see results of individual morphologies Polychromasia Slight Target Cells Few DTYPE Auto Manual Immature Gran % % 0.1 IMMATURE GRANS (ABS) <0.10 k/uL <0.03 Protein, Total 6.3 - 8.0 g/dL 6.7 6.9 Albumin 3.9 - 4.9 g/dL 4.0 4.1 Calcium 8.5 - 10.2 mg/dL 8.8 9.2 Bilirubin, Total 0.2 - 1.3 mg/dL 0.3 0.5 Alkaline Phosphatase 34 - 123 U/L 102 109 AST 13 - 35 U/L 30 22 ALT 7 - 38 U/L 28 22 Glucose 74 - 99 mg/dL 96 85 BUN 7 - 21 mg/dL 29 (H) 19 Creatinine 0.58 - 0.96 mg/dL 0.84 0.82 Sodium 136 - 144 mmol/L 139 136 Potassium 3.7 - 5.1 mmol/L 3.8 3.8 Chloride 97 - 105 mmol/L 108 (H) 104 CO2 22 - 30 mmol/L 20 (L) 19 (L) Anion Gap 9 - 18 mmol/L 11 13 eGFR >=60 mL/min/1.73m 74 77 Cholesterol, Total <200 mg/dL 155 Triglyceride <150 mg/dL 144 HDL Cholesterol >39 mg/dL 58 Non HDL Cholesterol <130 mg/dL 97 Fasting Time hrs 14 hours VLDL Cholesterol <30 mg/dL 29 TC:HDL Ratio <5.10 2.67 LDL Cholesterol <100 mg/dL 68 LDL:HDL Ratio <2.54 1.17 Hemoglobin A1C 4.3 - 5.6 % 5.4 5.3 Estimated Average Glucose mg/dL 108 105 TSH 0.270 - 4.200 mIU/L 13.400 (H) 1.710 Vitamin B12 232 - 1,245 pg/mL 1,675 (H) 1,118 Vitamin D 25 Hydroxy 31.0 - 80.0 ng/mL 133.0 (H) 54.4 Free T4 0.9 - 1.7 ng/dL 1.9 (H) Free T3 2.3 - 4.1 pg/mL 2.4 Magnesium 1.7 - 2.3 mg/dL 2.0 Assessment and Plan Encounter Diagnosis ICD-10-CM 1. 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 Rash and nonspecific skin eruption R21 Buttocks; painful and recurrent 3. Macrocytosis without anemia D75.89 4. Vitamin D deficiency E55.9 5. Acquired hypothyroidism E03.9 Above issues addressed with patient. Patient involved in shared decision making for management of medical issues. Stay on current meds. Clinically euthyroid. TSH fine. Continue to adjust dose of replacement as indicated based on symptoms and labs. No recurrence of DM. GVHD issues noted. Labs for follow up on above issues. Continue getting enough protein in diet.Also supplement vitamins as needed given macrocytosis. .ldtde History and medications reviewed. Epic updated as needed Refills and/or prescriptions taken care of and meds adjusted as indicated after reviewed history, exam and labs. Health Maintenance reviewed. Updated record and/or ordered tests as recorded. Encouraged on efforts at healthy diet and regular exercise and adequate sleep. Lidia Lopez MD documented in this encounterSumma Health [facility]08-16-2022 Miscellaneous Notes* Telephone Encounter - Ginette Camacho LPN - 05/05/2022 2:15 PM EDT Pt called back and problems with feet and legs persisting. Apt booked for 05-06-22 to be evaluated. Ginette Camacho LPN documented in this encounterSumma Health [facility]08-05-2022 History of Present illness Narrative* Aleyda Corey MD - 04/24/2022 2:00 PM EDT Extrusion Former offered: Patient declines. Cong Smith is a 72 year old female who presents for concerns regarding vaginal and vulvar pain. Patient states the pain became significant a couple days ago she has tried vaginal estrogen as well as clobetasol and Monistat without any relief. Patient states she only tried the estrogen and clobetasol for approximately 2 days. Patient states she does have ugbqt-tmoajf-notv disease and wonders if that is what is happening on the vagina. Patient reports she feels like she is sitting on a knee entire area is swollen and tender. Patient states the last time she was told that maybe she had a yeastinfection and wonders if that is what is happening again. Patient states she is on the verge of tears and had to take oxycodone for the pain last night. Patient states it does hurt to urinate. Patient wonders if she caused any trauma with the vaginal dilators. She states that she also used vagasil on the dilators and wonders if that is what caused the irritation. Patient states she has not changed any soaps or detergents. Patient states previously she saw Dr. David at the [facility] and was given creams to use which helped. Pt offers no other concerns today OB History T2 L0 SAB0 IAB0 Ectopic0 Multiple0 Live Births0 Comment: Cesaerian section x 2 Orthodontist Assistant History LMP: Postmenopausal Age at Menarche: Age at First : Age at Menopause: Orthodontist Assistant History Comments: Sexual Activity: Not Asked; No partner data on record; did not ask Contraception: No contraception data on record PAST MEDICAL HISTORY Diagnosis Date Abnormal echocardiogram 06/03/2017 Abnormality of gait 08/10/2016 Acute pulmonary embolism (HCC) 08/06/2015 --Patient presented with pleuritic Chest Pain, Heparin gtt initiated until PE ruled out --Negative for PE CT with PE protocol. Heparin drip was discontinued. PEPE (acute kidney injury) ([facility]) Non-oliguric renal failure. Creat increased to 1.6. Baseline sCr 0.6-1. --change fk to sirolimus. Resolved. 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 Dx 06/28/2014. -S/p induction with 7+3 + eltombopag (CASE 1493) course complicated by E.coli UTI and pulmonary nodule treated with posaconazole. -S/p 3 cycles of HiDAC, all courses complicated by neutropenic fevers and concern for worsening fungal pneumonia although this was not supported by cultures and bronchoscopy. 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 Treated w ganciclovir. 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 Lab draws: 11/28, 12/05, 12/12, 12/13, 12/26, 01/09, 01/23, 02/2710 Grade GVHD: every Wednesday starting 12/05, and prior to discharge. Pseudophakia of both eyes RBBB (right bundle branch block) 10/01/2015 RUQ abdominal pain S/P bone marrow transplant ([facility]) 08/27/2015 AML. Per LDT fci charges 08/22/15 S/P partial colectomy 06/20/2015 --06/20/2015- ex lap, subtotal colectomy, and end ileostomy SBO (small bowel obstruction) ([facility]) 01/25/2017 Secondary adrenal insufficiency ([facility]) 09/07/2016 Squamous cell carcinoma Left cheek Syncope Type 2 diabetes mellitus with microalbuminuria, without long-term current use of insulin ([facility]) 07/02/2016 Unspecified hypothyroidism PAST SURGICAL HISTORY Procedure Laterality Date ANOSCOPY DX W/COLLJ SPEC BR/WA SPX WHEN PRFRMD 02/22/2020 ARTHRP ACETBLR/PROX FEM PROSTC AGRFT/ALGRFT Left 01/2019 BONE MARROW TRANSPLANT, ALLOGENEIC 11/28/2014 CATARACT EXTRACTION HX Right 08/2016 DELIVERY ONLY x2 , low cervical COLECTOMY TOTAL W/ILEOANAL ANASTMS 06/20/2015 Ileostomy due to resection for bowel perforation ESOPHAGOGASTRODUODENOSCOPY TRANSORAL DIAGNOSTIC 09/06/2018 EGD IR IVC FILTER PLACEMENT 11/21/2015 Celect [place] LAPS SURG CHOLECYSTECTOMY W/CHOLANGIOGRAPHY 11/05/09 PICC LINE INSERT/CONSULT 06/28/2014 PICC LINE INSERT/CONSULT 03/12/2015 REMOVE TONSILS AND ADENOIDS; AGE 13 OVER FAMILY HISTORY Problem Relation Age of Onset Cataract Father other (Cancer, liver) Father Liver cancer at 84 Diabetes Mother Osteoporosis Mother Cataract Mother other (chf) Mother other (dementia) Mother vascular Thyroid Brother antibodies in thyroid No Ocular Disease Brother Alzheimer's Disease Paternal Grandmother No Ocular Disease Paternal Grandmother Heart Maternal Grandfather mi in his 70 No Ocular Disease Maternal Grandfather No Ocular Disease Maternal Grandmother other (encelphalitis) Maternal Grandmother No Ocular Disease Brother Thyroid Brother other (MTHFR) Brother and his children are positive as well No Ocular Disease Paternal Grandfather Social History Tobacco Use Smoking status: Never Smoker Smokeless tobacco: Never Used Vaping Use Vaping Use: Never used Substance Use Topics Alcohol use: Not Currently Comment: Quit 2013, previously 1-2 drinks per year Drug use: Never Current Outpatient Medications Medication Sig clotrimazole-betamethasone (LOTRISONE) cream Apply 1 application to affected area twice daily. lidocaine (XYLOCAINE) 5 % ointment Apply to affected area as needed (to urethral area). use a smallamount to affected area qid prn pain cyanocobalamin/cobamamide (B12 SUBLINGUAL) Dissolve under the tongue. levothyroxine (SYNTHROID) 112 mcg tablet Take 1 tablet by mouth once daily. Take on empty stomach. For Thyroid Magnesium Glycinate (MAG GLYCINATE) 100 mg tab Take 1 tablet by mouth twice daily. metoprolol tartrate, short acting, (LOPRESSOR) 25 mg tablet Take 1 tablet by mouth once daily. albuterol (PROVENTIL) 2.5 mg /3 mL (0.083 %) nebulizer solution Use 3 mL via nebulizer three times daily as needed for wheezing/shortness of breath. Inhale over 5-15 minutes sodium chloride (NEBUSAL) 3 % nebulizer solution Use 4 mL via nebulizer twice daily. estradiol (ESTRACE) 0.01 % (0.1 mg/gram) vaginal cream Use 0.5 g vaginally two times a week. esomeprazole (NEXIUM) 40 mg capsule TAKE 1 CAPSULE DAILY lifitegrast (XIIDRA) 5 % ophthalmic drops Use 1 Drop in both eyes twice daily. (Patient taking differently: Use 1 Drop in both eyes twice daily. Pt states only uses at night ) acyclovir (ZOVIRAX) 400 mg tablet Take 1 tablet by mouth twice daily. mometasone (NASONEX) 50 mcg/actuation nasal spray Use 2 Sprays in the nose once daily. Rinse mouth after use. albuterol HFA (PROAIR HFA) 90 mcg/actuation inhaler Inhale 2 Puffs as instructed every 4 hours as needed for wheezing/shortness of breath. Nebulizer and Compressor For Neb 1 Each twice daily. tobramycin-dexAMETHasone (TOBRADEX) ophthalmic suspension Use 1 Drop in both eyes twice daily. fluorometholone (FML LIQUID FILM) 0.1 % ophthalmic suspension Use 1 Drop in both eyes twice daily. (Patient taking differently: Use 1 Drop in both eyes twice daily. Pt states takes when she needs ) Flaxseed Oil 1,000 mg cap Take 1,000 mg by mouth once daily. 0.9 % sodium chloride (0.9% NACL) NURSING USE ONLY: USED FOR IMPLANTED VASCULAR ACCESS DEVICE (IVAD) ACCESS. AMBULATORY/OUTPATIENT: PLEASE REORDER UPON HOSPITAL DISCHARGE May access implanted vascular access device (IVAD) as needed for treatment. Flush IVAD with 10-20 mL NS every 4 weeks and PRN when IVAD not in use. folic acid 1 mg tablet Folic Acid Folic Acid Active 400 MCG DAILY May 06, 2019 11:16pm 05-06-2019 [facility] ([id number]) sodium chloride (PRATIMA 128) 5 % ophthalmic solution Use 1 Drop in both eyes as needed. MULTIVITAMIN ORAL Take 1 tablet by mouth once daily. calcium-cholecalciferol, D3, (OSCAL+D 250) 250-125 mg-unit per tablet Take 1 tablet by mouth twice daily. ipratropium bromide (ATROVENT) 42 mcg (0.06 %) nasal spray Use 2 Sprays in the nose twice daily as needed. magnesium oxide (MAG-OX) 400 mg (241.3 mg magnesium) tablet Take two tablets by mouth twice daily. Lactobacillus acidophilus (PROBIOTIC ORAL) Take 1 capsule by mouth once daily. COMPOUNDED PRESCRIPTION Needs supplies as listed below with refills to last a year Yolanda skin barrier [id number] Curitity gauze pad [id number] [place] cohesive seals [id number] Alcohol preps [id number] Skin prep wipes [id number] Adhesive remover [id number] [place] pouch [id number] Sure seals [id number] [place] Vera plus skin barrier [id number] [place] Karaya powder [id number] Adhesive remover wipes [id number] No current facility-administered medications for this visit. Allergies As of Date: 04/24/2022 Allergen Noted Reaction FISH CONTAINING PRODUCTS 02/19/2022 Unknown FORTEO [TERIPARATIDE] 09/18/2018 Other: See Comments GADOLINIUM-CONTAINING CONTRAST ME*01/07/2022 Hives IODINATED CONTRAST MEDIA 01/07/2022 Hives IODINE [CONTRAST DYE] 06/26/2014 Hives OMNIPAQUE [IOHEXOL] 07/02/2014 Hives Fully Assessed 04/24/2022 REVIEW OF SYSTEMS Abdomen: no pain Bladder: dysuria. Expanded ROS: negative fever Allergies and current medication updated:Yes EXAM: BP 116/62 Wt 152 lb (68.9kg) GENERAL: pleasant, female in no apparent distress HEENT: Normocephalic and atraumatic NECK: full range of motion PELVIC: Vulva appears to be erythematous but no ulcerations are present. There are no excoriations present. Unable to perform a speculum exam without causing patient pain. No blood or abnormal discharge was appreciated. I was able to place a Q-tip inside the vagina to collect cultures. NEURO: alert and oriented x3,exam grossly non-focal EXTREMITIES: normal ASSESSMENT AND PLAN: Encounter Diagnosis ICD-10-CM 1. Vulvar pain R10.2 2. Dysuria R30.0 3. 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 I discussed with the patient that I do not see any signs of a yeast infection however I am happyto try topical treatment with Lotrisone. We discussed not using Lotrisone with any other topical steroid. I discussed that she may need a longer therapy to notice an improvement versus only using it for 2 days as she did previously. Discussed with her that I will reach out to infectious dx [employer] Dr. David for any further recommendations. We discussed in detail vulvar hygiene we discussed using cool compresses. I discussed with her avoiding use of any other topical treatments. I discussed not usingvagasil on her dilators but instead can use KY jelly or coconut oil. 5. May consider systemic steroid Medrol Dosepak if no improvement. Will await further recommendations by Dr. David. 6. Pt to call the office Wednesday with update on how she is feeling. Medical Decision Making: Problems: Moderate: 1+ chronic illnesses with change Data: Unique test(s) ordered: 3+ Risk: Moderate: Drug management Medical Decision Making Level: 4 - Moderate Aleyda Cheng MD documented in this encounterSum[facility]-2022 Miscellaneous Notes* Telephone Encounter - Simi Leary Ma - 04/24/2022 12:11 PM EDT Vitamin D is ordered, not sure if specific magnesium order is needed in addition to what has already been ordered documented in this encounterSumma Health [facility]08-04-2022 Miscellaneous Notes* Telephone Encounter - Alyce Barry RN - 04/23/2022 5:00 PM EDT Please clarify rx. Patient was requesting betamethasone cream. Alyce Barry RN * Telephone Encounter - Nithya Casiano MD - 04/23/2022 4:53 PM EDT I am not sure this will be better than the others but she can try it. She needs to use only one at a time. Nithya Casiano MD * Telephone Encounter - Rosalia Perkins RN - 04/23/2022 10:12 AM EDT See 04/21/22 phone note. Patient called asking if RR thinks betamethasone cream would be better to try instead of the clobetasol. States there are several women in a Facebook group she belongs to that use that instead. Patient also asking how long she should continue to use the clobetasol and estracecream. Have been using once a day. Rosalia Perkins RN documented in this encounterSumma Health [facility]08-03-2022 Miscellaneous Notes* Telephone Encounter - Simi Leary Ma - 04/22/2022 9:43 AM EDT Addressed in phone encounter * Telephone Encounter - Lidia Lopez MD - 03/06/2022 7:29 PM EDT See MyChart reply documented in this encounterSumma Health [facility]08-03-2022 Miscellaneous Notes* Telephone Encounter - Nithya Casiano MD - 04/22/2022 9:31 AM EDT Please contact the patient. I am not sure who originally prescribed the gabapentin cream, but is compounded at 4% and is not available commercially. I can send this to [facility] compounding pharmacy if she prefers. Otherwise, need to know what compounding pharmacy she would like touse. Thank you. documented in this encounterSumma Health W[facility]08-02-2022 Miscellaneous Notes* Telephone Encounter - Alyce Barry RN - 04/21/2022 4:32 PM EDT Patient notified. Doesn't feel that it is UTI at this time. Will try recommendations and call if noimprovement. Alyce Barry RN The following approved medication requests have been transmitted electronically. Signed Prescriptions Disp Refills lidocaine (XYLOCAINE) 5 % ointment 30 g 1 Sig: Apply to affected area as needed (to urethral area). use a small amount to affected area qid prn pain Authorizing Provider: NITHYA CASIANO Pharmacy Information Pharmacy Address [id number] [place] [address] * Telephone Encounter - Nithya Casiano MD - 04/21/2022 4:23 PM EDT I am very sorry to hear this. Make sure she doesn't think it can be UTI. I sent in rx for some lidocaine she can use locally before voiding. She can try to poor water over her vulva while urinating to dilute the urine. Nithya Casiano MD * Telephone Encounter - Yuly Cote RN - 04/21/2022 3:19 PM EDT Patient calling wanting Dr. Casiano to know that she is having a major GVHD flare up for the last 2days. She usually makes a paste of estrace and clobetasol around her vaginal opening it this usually helps, but for some reason this time it is not. Patient states she is having difficulty urinating as it is so painful. Patient is wanting to know what Dr. Casiano recommends. Yuly Cote RN documented in this encounterSumma Health W[facility]07-11-2022 History of Present illness Narrative* Sen Walton MD - 03/30/2022 11:17 AM EDT ASSESSMENT/PLAN: 1. 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) - ICD9: 279.50, ICD10: D89.813 (primary diagnosis) BMT 2015 ([facility]) Worsening dry eye over the last few years She reports significant worsening over the past few months Mild upper tarsal scarring in both eyes - stable Much improved with 3 mo plugs BUL, perm plugs BLL Some relief with xiidra, continue Using pratima ointment QHS - continue LLL plug is in place RLL post cautery Plan to cauterize LLL if plug fall sout 2. Dry eyes, bilateral - ICD9: 375.15, ICD10: H04.123 See 1 3. Recurrent erosion of right cornea - ICD9: 371.42, ICD10: H18.831 Abrasion ~1999, intermittent symptoms since Consider treatment once dryness is stabilized 4. Pseudophakia - ICD9: V43.1, ICD10: Z96.1 Lenses look good Dispense MRx 6 months Sen Walton MD I have confirmed and edited as necessary the relevant ophthalmic history, ROS, and the neuro exam findings as obtained by others. I have seen and examined Cong Smith. I have discussed the case and the management of this patient's care with the Resident/Fellow, if applicable. I also have reviewed and agree with the assessment and plan as stated above and agree withall of its relevant components. Sen Walton MD documented in this encounterSumma Health [facility]06-29-2022 Miscellaneous Notes* Telephone Encounter - Selene Bartlett APRN.CNP - 03/18/2022 11:54 AM EDT Noted. Selene Bartlett APRN.CNP * Telephone Encounter - Mallika Suarez RN - 03/13/2022 11:41 AM EDT [facility]- [facility]- reports they are discharging patient today from per client request. documented in this encounterSumma Health Wad[facility]06-20-2022 Miscellaneous Notes* Telephone Encounter - Beverly Schafer - 03/09/2022 12:45 PM EDT There is no schedule for 06/12, could you mean 05/12? Please advise. Beverly Schafer * Telephone Encounter - Conchis Tucker RD - 03/09/2022 11:49 AM EDT Please add to my schedule on 06/12 at 11am for video visit. documented in this encounterSumma Health Wad[facility]06-20-2022 Miscellaneous Notes* Telephone Encounter - Svitlana Meek RN - 03/09/2022 10:21 AM EDT Patient returned call and given provider's message below and patient verbalized understanding. Max Meek RN * Telephone Encounter - Conchis Marquis RN - 03/09/2022 9:17 AM EDT Called and left a voicemail for the Patient to call back and ask for a nurse to receive the providers message. Conchis Marquis RN * Telephone Encounter - Lidia Lopez MD - 03/06/2022 7:22 PM EDT Component Latest Ref Rng & Units 03/04/2022 Hemoglobin A1C 4.3 - 5.6 % 5.4 Estimated Average Glucose mg/dL 108 TSH 0.270 - 4.200 mIU/L 13.400 (H) Vitamin B12 232-1,245 pg/mL 1,675 (H) Vitamin D 25 Hydroxy 31.0 - 80.0 ng/mL 133.0 (H) Vitamin D level high this time. Vitamin D3 is still lipid soluble, so excess Vitamin D is not excreted. Need to lower dose but for now need to hold the dose to give time for the level to get back into the normal range. Would increase thyroid dose to 112 mcg since TSH is high with the 100mcg dose. Recheck labs in 6 to 8 weeks then adjust thyroid replacement again if needed. Will see how Vitamin D level is then and also recheck BMP to make sure kidney function and calcium level and rest of electrolytes are fine. HgA1C fine B12 okay. Forwarded above to patient in reply to her [facility] labst message to Selina. See my reply there and make sure patient sees it too. * Telephone Encounter - Stephanie Carvajal RN - 03/06/2022 3:12 PM EDT Patient calls and is asking about labs that were done on 03/04/2022. Patient had noticed that thyroid levels were really elevated. Patient asking if provider wanted to adjust medication? Please review and advise, Stephanie Carvajal RN documented in this encounterSumma Health W[facility]06-16-2022 Miscellaneous Notes* Telephone Encounter - Jovita Mcbride RN - 03/05/2022 11:33 AM EDT Patient notified of provider's instructions and verbalizes understanding. * Telephone Encounter - Delroy De La Rosa MD - 03/05/2022 10:25 AM EDT Specifically Mucinex DM, which also contains a cough suppressant. Delroy De La Rosa MD, [facility] [address] [place], [place] [id number] P: [phone] F: [phone] * Telephone Encounter - Jovita Mcbride RN - 03/05/2022 8:36 AM EDT Pt. called and states, she is feeling much better on the antibiotics, however, she continues to cough so hard, that her stomach hurts. She has been taking Mucinex with expectorant, but asks if there is something else she should be taking? She is bringing up mucous, but has to cough a long time to bring it up. She asks if there is something else she could take? documented in this encounterSumma Health W[facility]06-13-2022 Miscellaneous Notes* Telephone Encounter - Nevaeh Virgen LPN - 03/02/2022 1:12 PM EDT Patient notified RX sent. Nevaeh Virgen LPN * Telephone Encounter - Delroy De La Rosa MD - 03/02/2022 12:48 PM EDT Chart, medications, allergies reviewed. Levofloxacin E-scripted to Pharmacy on file. Delroy De La Rosa MD, [facility] [place] * Telephone Encounter - Maia Swanson RN - 03/02/2022 11:27 AM EDT Pt called in states she has had a productive cough x7days with yellow/green mucus, sinus pressure/headache, has been afebrile x4days. States she was with family last Wednesday02/22/22 and everyone else has same symptoms and tested positive for covid. She tested negative three times via home test and had PCR done at [facility]. Was also seen in ER with diagnosis of common cold. States she is just not feeling well and wondering what can be done or if this could be a bronchiectasis flare up or complication. Please advise. documented in this encounterSumma Health Wad[facility]06-09-2022 Miscellaneous Notes* Telephone Encounter - Lidia Lopez MD - 02/26/2022 8:28 PM EDT Given her medical history, agree should be seen to evaluate and determine what more needs done to treat her symptoms. * Telephone Encounter - Shannon Brown LPN - 02/26/2022 1:15 PM EDT Patient calling said she began with symptoms Wednesday. She has fever, nasal congestion, cough with yellow secretions,, sore throat. She said all she wants to do is sleep. She is concerned that she is going to get dehydrated, she is trying to drink plenty of fluids. Advised to go [facility] for evaluation. documented in this encounterSumma Health W[facility]06-07-2022 Miscellaneous Notes* Telephone Encounter - Selina Driscoll APRN.KOBE - 02/24/2022 3:32 PM EDT noted * Telephone Encounter - Anabelle Herron LPN - 02/24/2022 1:04 PM EDT KINJAL Meza/Nurse w/Sean VIDAL calling to report a missed visit, Patient did not feel like it this week. Anabelle Herron LPN documented in this encounterSumma Health Wad[facility]06-02-2022 Instructions* Patient Instructions* Conchis Tucker RD - 02/19/2022 1:43 PM EDT Nutrition Intervention: 1)Try Magnesium Glycinate as a gentler alternative to Magnesium Oxide (in process of discussing with Dr. Baez) 2)Try having coffee with foods instead of without foods 3)Continue food diary with symptoms recorded Continue the following: Chew food thoroughly Decrease Vit C 1000mg to as needed Continue Chewable Multivitamin Continue B12 SL and B Complex Continue 30 oz of electrolyte drink and 30 oz water - sips Weight loss to be addressed after correcting ostomy output issues. documented in this encounterSumma Health W[facility]06-02-2022 History of Present illness Narrative* Conchis Tucker RD - 02/19/2022 11:19 AM EDT Nutrition Therapy Initial Assessment RECOMMENDED MALNUTRITION DIAGNOSIS: UNABLE TO IDENTIFY MALNUTRITION AT THIS TIME Reason for visit: Nutrition Counseling Nutrition Diagnosis: Increased nutrient needs (kcal, pro) related to physiological changes increasing nutrient utilization as evidenced by ca dx and treatment plan. Nutrition Intervention: 1)Try Magnesium Glycinate as a gentler alternative to Magnesium Oxide 2)Try having coffee with foods 3)Continue food diary with symptoms recorded Continue the following: Chew food thoroughly Decrease Vit C 1000mg to as needed Continue Chewable Multivitamin Continue B12 SL and B Complex Continue 30 oz of electrolyte drink and 30 oz water - sips Weight loss to be addressed after correcting ostomy output issues. Educational materials provided: Creative Eating during Illness and Recovery Nutrition Assessment Pt presents for nutrition counseling for acute myeloid leukemia in remission, Chronic GVHD. Pt is currently being treated with post treatment. Pt denies any chewing/swallowing issues, denies current N/V/D/C. Possible fish allergy. 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 Would like snack ideas; Missing 17 teeth; Possible borderline diabetic. Physical activity: Was very active prior to hospitalization. Walking 1 mile per day + weights. Homehealth PT x 6 more sessions. Hip flexers and core muscles. Diet History (24hr recall): Breakfast - Premier protein shake; banana Snack - Lunch - 1/2 peanut butter with cottage cheese Snack - Dinner - Frozen meals (Lasagna), chicken pot pie, sloppy joes, rotisserie chicken (spinach, canned greened beans, broccoli and cauliflower, asparagus, brussel sprouts) Snack - Beverages - 2-3 cups of coffee; water (60oz) with great value, drip drop or another electrolyte, Kinderlite Alcohol- Vitamins/Supplements - Vit C, B complex, Centrum, Magnesium Oxide 400mg BID, Flaxseed, probiotic. 02/19/22: Pt continues to have difficulty with watery high-ostomy output. Has had some improvement with diet modifications: Adding thickening food to every meal and snack. Adding oatmeal. Drinking Oral Rehydration Solution 30oz/water 30oz, Decreasing Coffee intake. She has started using SL B12, switched to achewable MVI. She is keeping a food and symptom diary. Will recommend physician to look at changingMagnesium Oxide to Magnesium Glycinate to see if symptoms persist. Anthropometrics: HT/WT/BMI HEIGHT WEIGHT BODY MASS INDEX 08/20/2021 4' 10.5 68.04 kg 30.82 09/03/2021 4' 11 67.586 kg 30.09 09/15/2021 66.225 kg 29.49 12/01/2021 68.493 kg 30.5 12/02/2021 4' 10.5 70.308 kg 31.84 02/02/2022 68.04 kg 30.82 02/02/2022 68.04 kg 30.82 02/10/2022 68.493 kg 31.02 Estimated body mass index is 31.02 kg/m as calculated from the following: Height as of 12/02/21: 148.6 cm (4' 10.5). Weight as of 02/10/22: 68.5 kg (151 lb). Resting Metabolic Rate: 1107 Weight Loss: none Estimated Needs: Dosing Weight: 68.5 kg Estimated kilocalorie needs: 4088-5955 kilocalories determined by 25-30 kcal/kg Estimated protein needs: 82-103 grams determined by 1.2-1.5 g/kg Dosing weight Estimated fluid needs: 2526-7367 milliliters based on 1 mL per kcal Readiness to Learn Cognitive ability: Alert and oriented Motivation to learn: Eager Family support: Unable to assess - Family not present Instruction provided to: Patient Patient learns best by: Individual Instruction Factors affecting learning: Cultural Factors: None Physical limitations affecting learning: None NUTRITION FOCUSED PHYSICAL EXAM: Unable to perform exam due to patient unavailable, will re-attemptduring reassessment. Potential Signs of Inflammation: chronic condition Allergies: Forteo [Teriparatide], Gadolinium-Containing Contrast Media, Iodinated Contrast Media, Iodine [Contrast Dye], and Omnipaque [Iohexol] Medications: Current Outpatient Medications Medication Sig Dispense Refill Magnesium Glycinate (MAG GLYCINATE) 100 mg tab Take 1 tablet by mouth twice daily. 60 tablet 5 ergocalciferol 50,000 unit capsule (VITAMIN D2, DRISDOL) take 1 capsule by mouth every week 24 capsule 1 metoprolol tartrate, short acting, (LOPRESSOR) 25 mg tablet Take 1 tablet by mouth once daily. 90 tablet 3 albuterol (PROVENTIL) 2.5 mg /3 mL (0.083 %) nebulizer solution Use 3 mL via nebulizer three times daily as needed for wheezing/shortness of breath. Inhale over 5-15 minutes 300 Vial 3 sodium chloride (NEBUSAL) 3 % nebulizer solution Use 4 mL via nebulizer twice daily. 1200 mL 3 estradiol (ESTRACE) 0.01 % (0.1 mg/gram) vaginal cream Use 0.5 g vaginally two times a week. 42.5 g3 esomeprazole (NEXIUM) 40 mg capsule TAKE 1 CAPSULE DAILY 90 capsule 3 lifitegrast (XIIDRA) 5 % ophthalmic drops Use 1 Drop in both eyes twice daily. 180 Each 3 acyclovir (ZOVIRAX) 400 mg tablet Take 1 tablet by mouth twice daily. 180 tablet 3 mometasone (NASONEX) 50 mcg/actuation nasal spray Use 2 Sprays in the nose once daily. Rinse mouth after use. 17 g 3 albuterol HFA (PROAIR HFA) 90 mcg/actuation inhaler Inhale 2 Puffs as instructed every 4 hours as needed for wheezing/shortness of breath. 18 g 11 Nebulizer and Compressor For Neb 1 Each twice daily. 1 Each 1 tobramycin-dexAMETHasone (TOBRADEX) ophthalmic suspension Use 1 Drop in both eyes twice daily. (Patient not taking: Reported on 12/17/2021 ) 1 Bottle 1 lifitegrast (XIIDRA) 5 % Use 1 Drop in eyes twice daily. (Patient not taking: Reported on 12/17/2021 ) 60 Each 2 levothyroxine (SYNTHROID) 100 mcg tablet Take 1 tablet by mouth once daily. Take on empty stomach. For Thyroid 90 tablet 3 fluorometholone (FML LIQUID FILM) 0.1 % ophthalmic suspension Use 1 Drop in both eyes twice daily. 1 Bottle 1 Flaxseed Oil 1,000 mg cap Take 1,000 mg by mouth once daily. 0.9 % sodium chloride (0.9% NACL) NURSING USE ONLY: USED FOR IMPLANTED VASCULAR ACCESS DEVICE (IVAD) ACCESS. AMBULATORY/OUTPATIENT: PLEASE REORDER UPON HOSPITAL DISCHARGE May access implanted vascular access device (IVAD) as needed for treatment. Flush IVAD with 10-20 mL NS every 4 weeks and PRN when IVAD not in use. 1 Syringe 100 folic acid 1 mg tablet Folic Acid Folic Acid Active 400 MCG DAILY May 06, 2019 11:16pm 05-06-2019 [facility] ([id number]) sodium chloride (PRATIMA 128) 5 % ophthalmic solution Use 1 Drop in both eyes as needed. pramoxine-hydrocortisone (PROCTOFOAM HC) rectal foam 1 Applicator by RECTAL route as needed. 57 g 2 MULTIVITAMIN ORAL Take 1 tablet by mouth once daily. calcium-cholecalciferol, D3, (OSCAL+D 250) 250-125 mg-unit per tablet Take 1 tablet by mouth twice daily. ipratropium bromide (ATROVENT) 42 mcg (0.06 %) nasal spray Use 2 Sprays in the nose twice daily as needed. 1 Bottle 5 magnesium oxide (MAG-OX) 400 mg (241.3 mg magnesium) tablet Take two tablets by mouth twice daily. vitamin b complex tab Take 1 tablet by mouth once daily. Lactobacillus acidophilus (PROBIOTIC ORAL) Take 1 capsule by mouth once daily. mupirocin (BACTROBAN) 2 % ointment Apply to ulcer and surrounding skin once daily with clobetasol 30 g 2 COMPOUNDED PRESCRIPTION Needs supplies as listed below with refills to last a year [place] skin barrier [id number] Curitity gauze pad [id number] [place] cohesive seals [id number] Alcohol preps [id number] Skin prep wipes [id number] Adhesive remover [id number] [place] pouch [id number] Sure seals [id number] [place] Vera plus skin barrier [id number] Yolanda Karaya powder [id number] Adhesive remover wipes [id number] 1 Each 11 No current facility-administered medications for this visit. (date of last encounter 02/12/22 ): Nutrition Monitoring & Evaluation: PO intake Supplement tolerance Wt status Biochemical Markers Skin integrity Plan of care Patient met goal(s): No Need for Follow up: Will follow up in one week Referred/Supervised by: Dr. Baez Thank you for allowing me to participate in the care of this pt. MNT Billing Type: Re-assess/15 min 2 units Signed by: Conchis Tucker RD,LD documented in this [facility]05-31-2022 Miscellaneous Notes* Telephone Encounter - Judi Back Pss - 02/17/2022 1:39 PM EDT Pharmacy called stating they do not have the magnesium glycinate as requested. They have available,15% or 20% powder, or 665 mg capsule. Please advise pharmacy of new request. [facility] Miscellaneous Notes* Telephone Encounter - Cookie Barone - 02/12/2022 2:03 PM EDT Scheduled. Cookie Barone * Telephone Encounter - Conchis Tucker RD - 02/12/2022 11:38 AM EDT Please add Video visit on February 19 @ 11am and March 09 @ 11am. documented [facility] Instructions* Patient Instructions* Conchis Tucker RD - 02/12/2022 11:41 AM EDT Nutrition Intervention: Try Magnesium Glycinate instead of magnesium Oxalate Try Chewable Multivitamin Try snacks: oatmeal with smooth peanut butter; soft cooked squash, sweet potato, carrots. Use 30 oz of electrolyte drink and 30 oz water - sips Chew food thoroughly Think about decreasing coffee intake Decrease Vit C 1000mg to three times per week. documented in this [facility]05-26-2022 History of Present illness Narrative* Conchis Tucker RD - 02/12/2022 11:00 AM EDT Nutrition Therapy Initial Assessment RECOMMENDED MALNUTRITION DIAGNOSIS: UNABLE TO IDENTIFY MALNUTRITION AT THIS TIME Reason for visit: Nutrition Counseling Nutrition Diagnosis: Increased nutrient needs (kcal, pro) related to physiological changes increasing nutrient utilization as evidenced by ca dx and treatment plan. Nutrition Intervention: Try Magnesium Glycinate instead of magnesium Oxalate Try Chewable Multivitamin Try snacks: oatmeal with smooth peanut butter; soft cooked squash, sweet potato, carrots. Use 30 oz of electrolyte drink and 30 oz water - sips Chew food thoroughly Think about decreasing coffee intake Decrease Vit C 1000mg to three times per week. Weight loss to be addressed after correcting ostomy output issues. Educational materials provided: Creative Eating during Illness and Recovery Nutrition Assessment Pt presents for nutrition counseling for acute myeloid leukemia in remission, Chronic GVHD. Pt is currently being treated with post treatment. Pt denies any chewing/swallowing issues, denies current N/V/D/C. Possible fish allergy. Patient's symptoms are: GI: diarrhea Oral: chewing problems Behavioral: altered appetite and none Weight Concerns: failure to lose weight Pt has stable weight.Has total colectomy with Ostomy - watery high output States wire strander to lose 8 lbs for DIXON. Would like snack ideas; Missing 17 teeth; Possible borderline diabetic. Physical activity: Was very active prior to hospitalization. Walking 1 mile per day + weights. Homehealth PT x 6 more sessions. Hip flexers and core muscles. Diet History (24hr recall): Breakfast - Premier protein shake; banana Snack - Lunch - 1/2 peanut butter with cottage cheese Snack - Dinner - Frozen meals (Lasagna), chicken pot pie, sloppy joes, rotisserie chicken (spinach, canned greened beans, broccoli and cauliflower, asparagus, brussel sprouts) Snack - Beverages - 2-3 cups of coffee; water (60oz) with great value, drip drop or another electrolyte, Kinderlite Alcohol- Vitamins/Supplements - Vit C, B complex, Centrum, Magnesium Oxide 400mg BID, Flaxseed, probiotic. Anthropometrics: Height: Last 1 Encounter Ht Readings: Date: Ht: 12/02/2021 148.6 cm (4' 10.5) Current weight: Last 10 Encounter Wt Readings: Date: Wt: 02/10/2022 68.5 kg (151 lb) 02/02/2022 68 kg (150 lb) 02/02/2022 68 kg (150 lb) 12/02/2021 70.3 kg (155 lb) 12/01/2021 68.5 kg (151 lb) 09/15/2021 66.2 kg (146 lb) 09/03/2021 67.6 kg (149 lb) 08/20/2021 68 kg (150 lb) 07/03/2021 69.4 kg (153 lb) 06/19/2021 68.9 kg (151 lb 14.4 oz) Estimated body mass index is 31.02 kg/m as calculated from the following: Height as of 12/02/21: 148.6 cm (4' 10.5). Weight as of 02/10/22: 68.5 kg (151 lb). Resting Metabolic Rate: 1107 Weight Loss: none Estimated Needs: Dosing Weight: 68.5 kg Estimated kilocalorie needs: 5481-5987 kilocalories determined by 25-30 kcal/kg Estimated protein needs: 82-103 grams determined by 1.2-1.5 g/kg Dosing weight Estimated fluid needs: 1789-4227 milliliters based on 1 mL per kcal Readiness to Learn Cognitive ability: Alert and oriented Motivation to learn: Eager Family support: Unable to assess - Family not present Instruction provided to: Patient Patient learns best by: Individual Instruction Factors affecting learning: Cultural Factors: None Physical limitations affecting learning: None NUTRITION FOCUSED PHYSICAL EXAM: Unable to perform exam due to patient unavailable, will re-attemptduring reassessment. Potential Signs of Inflammation: chronic condition Allergies: Forteo [Teriparatide], Gadolinium-Containing Contrast Media, Iodinated Contrast Media, Iodine [Contrast Dye], and Omnipaque [Iohexol] Medications: Current Outpatient Medications Medication Sig Dispense Refill ergocalciferol 50,000 unit capsule (VITAMIN D2, DRISDOL) take 1 capsule by mouth every week 24 capsule 1 metoprolol tartrate, short acting, (LOPRESSOR) 25 mg tablet Take 1 tablet by mouth once daily. 90 tablet 3 albuterol (PROVENTIL) 2.5 mg /3 mL (0.083 %) nebulizer solution Use 3 mL via nebulizer three times daily as needed for wheezing/shortness of breath. Inhale over 5-15 minutes 300 Vial 3 sodium chloride (NEBUSAL) 3 % nebulizer solution Use 4 mL via nebulizer twice daily. 1200 mL 3 estradiol (ESTRACE) 0.01 % (0.1 mg/gram) vaginal cream Use 0.5 g vaginally two times a week. 42.5 g3 esomeprazole (NEXIUM) 40 mg capsule TAKE 1 CAPSULE DAILY 90 capsule 3 lifitegrast (XIIDRA) 5 % ophthalmic drops Use 1 Drop in both eyes twice daily. 180 Each 3 acyclovir (ZOVIRAX) 400 mg tablet Take 1 tablet by mouth twice daily. 180 tablet 3 mometasone (NASONEX) 50 mcg/actuation nasal spray Use 2 Sprays in the nose once daily. Rinse mouth after use. 17 g 3 albuterol HFA (PROAIR HFA) 90 mcg/actuation inhaler Inhale 2 Puffs as instructed every 4 hours as needed for wheezing/shortness of breath. 18 g 11 Nebulizer and Compressor For Neb 1 Each twice daily. 1 Each 1 tobramycin-dexAMETHasone (TOBRADEX) ophthalmic suspension Use 1 Drop in both eyes twice daily. (Patient not taking: Reported on 12/17/2021 ) 1 Bottle 1 lifitegrast (XIIDRA) 5 % Use 1 Drop in eyes twice daily. (Patient not taking: Reported on 12/17/2021 ) 60 Each 2 levothyroxine (SYNTHROID) 100 mcg tablet Take 1 tablet by mouth once daily. Take on empty stomach. For Thyroid 90 tablet 3 fluorometholone (FML LIQUID FILM) 0.1 % ophthalmic suspension Use 1 Drop in both eyes twice daily. 1 Bottle 1 Flaxseed Oil 1,000 mg cap Take 1,000 mg by mouth once daily. 0.9 % sodium chloride (0.9% NACL) NURSING USE ONLY: USED FOR IMPLANTED VASCULAR ACCESS DEVICE (IVAD) ACCESS. AMBULATORY/OUTPATIENT: PLEASE REORDER UPON HOSPITAL DISCHARGE May access implanted vascular access device (IVAD) as needed for treatment. Flush IVAD with 10-20 mL NS every 4 weeks and PRN when IVAD not in use. 1 Syringe 100 folic acid 1 mg tablet Folic Acid Folic Acid Active 400 MCG DAILY May 06, 2019 11:16pm 05-06-2019 [facility] ([id number]) sodium chloride (PRATIMA 128) 5 % ophthalmic solution Use 1 Drop in both eyes as needed. pramoxine-hydrocortisone (PROCTOFOAM HC) rectal foam 1 Applicator by RECTAL route as needed. 57 g 2 MULTIVITAMIN ORAL Take 1 tablet by mouth once daily. calcium-cholecalciferol, D3, (OSCAL+D 250) 250-125 mg-unit per tablet Take 1 tablet by mouth twice daily. ipratropium bromide (ATROVENT) 42 mcg (0.06 %) nasal spray Use 2 Sprays in the nose twice daily as needed. 1 Bottle 5 magnesium oxide (MAG-OX) 400 mg (241.3 mg magnesium) tablet Take two tablets by mouth twice daily. vitamin b complex tab Take 1 tablet by mouth once daily. Lactobacillus acidophilus (PROBIOTIC ORAL) Take 1 capsule by mouth once daily. mupirocin (BACTROBAN) 2 % ointment Apply to ulcer and surrounding skin once daily with clobetasol 30 g 2 COMPOUNDED PRESCRIPTION Needs supplies as listed below with refills to last a year [place] skin barrier [id number] Curitity gauze pad [id number] [place] cohesive seals [id number] Alcohol preps [id number] Skin prep wipes [id number] Adhesive remover [id number] Yolanda pouch [id number] Sure seals [id number] Yolanda Vera plus skin barrier [id number] [place] Karaya powder [id number] Adhesive remover wipes [id number] 1 Each 11 No current facility-administered medications for this visit. (date of last encounter ): Nutrition Monitoring & Evaluation: PO intake Supplement tolerance Wt status Biochemical Markers Skin integrity Plan of care Patient met goal(s): No Need for Follow up: Will follow up in one week Referred/Supervised by: Dr. Baez Thank you for allowing me to participate in the care of this pt. MNT Billing Type: Initial Assess/15 min 3 units Signed by: Conchis Tucker RD,LD documented [facility] Instructions* Patient Instructions* eSlina Driscoll APRN.CNS - 02/10/2022 11:37 AM EDT Due for dilated eye exam this year OK to take B12 sublingual tab documented [facility] this [facility] History of Present illness Narrative* Selina Driscoll APRN.CNS - 02/10/2022 11:11 AM EDT SUBJECTIVE: DILATED RETINAL EXAM due on 05/01/2021 HBA1C due on 08/06/2021 COVID-19 VACCINE(3 - Moderna risk series) due on 08/21/2021 ADVANCE DIRECTIVE DISCUSSION Never done HPI Cong Smith is a 71 year old female. 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 fib with RVR, ieglr-qsaaif-rgch disease, type 2 diabetes osteoporosis, vitamin D deficiency, ileostomyand colostomy, present status post colectomy, stage III chronic kidney disease. Patient's last HgA1C was Hemoglobin A1C (%) Date Value 02/03/2021 5.4 08/02/2020 5.3 ) Hypothyroidism. She notes hair thinning. She is otherwise doing well on her current dose of Synthroid. TSH (uU/mL) Date Value 02/03/2021 3.070 10/14/2020 0.761 ) GERD: without complaints today Ostomy:12/2021 recent admission [facility] for excessive output, infection, hypokalemia. No recent gastroenterology visit. EGD, ileoscopy 2018. She notes taking B12 recently and felt well with this. Interested in SL dosing. No recent use of OAC. Review of Systems HENT: Positive for hearing loss. Respiratory: Negative. Cardiovascular: Negative. Gastrointestinal: Ostomy, liquid output at baseline Endocrine: Negative. Objective BP 112/72 Pulse 75 Resp 16 Wt 68.5 kg (151 lb) SpO2 96% BMI 31.02 kg/m Physical Exam Vitals and nursing note reviewed. Constitutional: Appearance: Normal appearance. HENT: Head: Normocephalic and atraumatic. Right Ear: Ear canal normal. Decreased hearing noted. Left Ear: Tympanic membrane normal. Decreased hearing noted. Ears: Comments: cerumen present right canal Nose: Mucosal edema present. Mouth/Throat: Lips: Bison. Mouth: Mucous membranes are moist. Pharynx: Oropharynx is clear. Eyes: Conjunctiva/sclera: Conjunctivae normal. Cardiovascular: Rate and Rhythm: Normal rate and regular rhythm. Heart sounds: Normal heart sounds. Pulmonary: Effort: Pulmonary effort is normal. No respiratory distress. Breath sounds: Normal breath sounds. No wheezing. Comments: \ Chest: Breasts: Right: Normal. Left: Normal. Comments: L chest wall - port Abdominal: General: Bowel sounds are normal. Palpations: Abdomen is soft. Comments: +ostomy Skin: General: Skin is warm and dry. Neurological: Mental Status: She is alert. Mental status is at baseline. Gait: Gait abnormal (walking with cane). ALLERGIES Allergen Reactions Forteo [Teriparatid* Other: See Comments Hypercalcemia 08/2018 Iodine [Contrast Dy* Hives Hives, sneezing Omnipaque [Iohexol] Hives Sneezing, pruritis (ears), and hive. MEDICATIONS ergocalciferol 50,000 unit capsule (VITAMIN D2, DRISDOL) take 1 capsule by mouth every week metoprolol tartrate, short acting, (LOPRESSOR) 25 mg tablet Take 1 tablet by mouth once daily. albuterol (PROVENTIL) 2.5 mg /3 mL (0.083 %) nebulizer solution Use 3 mL via nebulizer three times daily as needed for wheezing/shortness of breath. Inhale over 5-15 minutes sodium chloride (NEBUSAL) 3 % nebulizer solution Use 4 mL via nebulizer twice daily. estradiol (ESTRACE) 0.01 % (0.1 mg/gram) vaginal cream Use 0.5 g vaginally two times a week. esomeprazole (NEXIUM) 40 mg capsule TAKE 1 CAPSULE DAILY lifitegrast (XIIDRA) 5 % ophthalmic drops Use 1 Drop in both eyes twice daily. acyclovir (ZOVIRAX) 400 mg tablet Take 1 tablet by mouth twice daily. mometasone (NASONEX) 50 mcg/actuation nasal spray Use 2 Sprays in the nose once daily. Rinse mouth after use. albuterol HFA (PROAIR HFA) 90 mcg/actuation inhaler Inhale 2 Puffs as instructed every 4 hours as needed for wheezing/shortness of breath. Nebulizer and Compressor For Neb 1 Each twice daily. levothyroxine (SYNTHROID) 100 mcg tablet Take 1 tablet by mouth once daily. Take on empty stomach. For Thyroid fluorometholone (FML LIQUID FILM) 0.1 % ophthalmic suspension Use 1 Drop in both eyes twice daily. Flaxseed Oil 1,000 mg cap Take 1,000 mg by mouth once daily. 0.9 % sodium chloride (0.9% NACL) NURSING USE ONLY: USED FOR IMPLANTED VASCULAR ACCESS DEVICE (IVAD) ACCESS. AMBULATORY/OUTPATIENT: PLEASE REORDER UPON HOSPITAL DISCHARGE May access implanted vascular access device (IVAD) as needed for treatment.Flush IVAD with 10-20 mL NS every 4 weeks and PRNwhen IVAD not in use. folic acid 1 mg tablet Folic Acid Folic Acid Active 400 MCG DAILY May 06, 2019 11:16pm 05-06-2019 [facility] ([id number]) sodium chloride (PRATIMA 128) 5 % ophthalmic solution Use 1 Drop in both eyes as needed. pramoxine-hydrocortisone (PROCTOFOAM HC) rectal foam 1 Applicator by RECTAL route as needed. MULTIVITAMIN ORAL Take 1 tablet by mouth once daily. calcium-cholecalciferol, D3, (OSCAL+D 250) 250-125 mg-unit per tablet Take 1 tablet by mouth twice daily. ipratropium bromide (ATROVENT) 42 mcg (0.06 %) nasal spray Use 2 Sprays in the nose twice daily as needed. magnesium oxide (MAG-OX) 400 mg (241.3 mg magnesium) tablet Take two tablets by mouth twice daily. vitamin b complex tab Take 1 tablet by mouth once daily. Lactobacillus acidophilus (PROBIOTIC ORAL) Take 1 capsule by mouth once daily. mupirocin (BACTROBAN) 2 % ointment Apply to ulcer and surrounding skin once daily with clobetasol COMPOUNDED PRESCRIPTION Needs supplies as listed below with refills to last a yearHollister skin barrier [id number] gauze pad 810959Xhful cohesive seals [id number] preps 55MWAPLSkin prep wipes [id number] remover [id number] pouch [id number] seals [id number] Vera plus skin barrier [id number] Karaya powder 956854Kuyhhhmh remover wipes [id number] tobramycin-dexAMETHasone (TOBRADEX) ophthalmic suspension Use 1 Drop in both eyes twice daily. lifitegrast (XIIDRA) 5 % Use 1 Drop in eyes twice daily. PAST MEDICAL HISTORY Diagnosis Date Abnormal echocardiogram 06/03/2017 Abnormality of gait 08/10/2016 Acute pulmonary embolism (HCC) 08/06/2015 --Patient presented with pleuritic Chest Pain, Heparin gtt initiated until PE ruled out --Negative for PE CT with PE protocol. Heparin drip was discontinued. PEPE (acute kidney injury) (HCC) Non-oliguric renal failure. Creat increased to 1.6. Baseline sCr 0.6-1. --change fk to sirolimus. Resolved. 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 Dx 06/28/2014. -S/p induction with 7+3 + eltombopag (CASE 1493) course complicated by E.coli UTI and pulmonary nodule treated with posaconazole. -S/p 3 cycles of HiDAC, all courses complicated by neutropenic fevers and concern for worsening fungal pneumonia although this was not supported by cultures and bronchoscopy. 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 Treated w ganciclovir. 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 Lab draws: 11/28, 12/05, 12/12, 12/13, 12/26, 01/09, 01/23, 02/2710 Grade GVHD: every Wednesday starting 12/05, and prior to discharge. Pseudophakia of both eyes RBBB (right bundle branch block) 10/01/2015 RUQ abdominal pain S/P bone marrow transplant ([facility]) 08/27/2015 AML. Per LDT [facility] charges 08/22/15 S/P partial colectomy 06/20/2015 --06/20/2015- ex lap, subtotal colectomy, and end ileostomy SBO (small bowel obstruction) ([facility]) 01/25/2017 Secondary adrenal insufficiency ([facility]) 09/07/2016 Squamous cell carcinoma Left cheek Syncope Unspecified hypothyroidism Social History Tobacco Use Smoking status: Never Smoker Smokeless tobacco: Never Used Vaping Use Vaping Use: Never used Substance Use Topics Alcohol use: Not Currently Comment: Quit 2013, previously 1-2 drinks per year Drug use: Never Component Latest Ref Rng & Units 12/03/2020 02/03/2021 03/10/2021 04/03/2021 05/02/2021 05/10/2021 WBC 3.70 - 11.00 k/uL 12.35 (H) 10.96 11.54 (H) RBC 3.90 - 5.20 m/uL 4.23 4.12 4.15 Hemoglobin 11.5 - 15.5 g/dL 14.7 14.2 14.3 Hematocrit 36.0 - 46.0 % 42.9 42.0 42.2 MCV 80.0 - 100.0 fL 101.4 (H) 101.9 (H) 101.7 (H) MCH 26.0 - 34.0 pG 34.8 (H) 34.5 (H) 34.5 (H) MCHC 30.5 - 36.0 g/dL 34.3 33.8 33.9 RDW-CV 11.5 - 15.0 % 15.0 14.6 14.6 Platelet Count 150 - 400 k/uL 266 255 223 MPV 9.0 - 12.7 fL 10.9 11.0 10.7 Neut% % 31.0 34.0 36.0 Abs Neut (ANC) 1.45 - 7.50 k/uL 3.83 3.73 4.15 Lymph% % 57.0 56.0 52.0 Abs Lymph 1.00 - 4.00 k/uL 7.04 (H) 6.14 (H) 6.00 (H) [place]% % 7.0 7.0 8.0 Abs [place] <0.87 k/uL 0.86 0.77 0.92 (H) Eosin% % 5.0 2.0 2.0 Abs Eosin <0.46 k/uL 0.62 (H) 0.22 0.23 Baso% % 0.0 1.0 0.0 Abs Baso <0.11 k/uL 0.00 0.11 (H) 0.00 NRBC 0 /100 WBC 0 Bands % 0 - 10 % 0.0 ANC(includeSEG+BAND) k/uL 3.83 3.73 4.15 [place]ard% % 0.0 Myelo% % 0.0 Promyl% % 0.0 Blast% 0 % 0.0 Lymphoma Cell % 0.0 Realym% % 0.0 2.0 Prolymph % % 0.0 Plasma Cells % 0.0 Megakaryocytic Frag 0 /100 WBC 0.0 Other Cells % SEE COMMENT Red Cell Morph SEE COMMENT SEE COMMENT SEE COMMENT Platelet Estimate Platelet estimate adequate Platelet estimate adequate Platelet estimate adequate Diff Type Manual Diff Manual Diff Manual Diff Protein, Total 6.3 - 8.0 g/dL 7.3 6.7 6.9 Albumin 3.9 - 4.9 g/dL 4.0 3.8 (L) 3.8 (L) Calcium 8.5 - 10.2 mg/dL 9.1 9.0 9.2 Bilirubin, Total 0.2 - 1.3 mg/dL 0.4 0.3 0.4 Alkaline Phosphatase 34 - 123 U/L 138 (H) 119 114 AST 13 - 35 U/L 32 27 30 Glucose 74 - 99 mg/dL 104 (H) 82 113 (H) BUN 7 - 21 mg/dL 27 (H) 23 (H) 28 (H) Creatinine 0.58 - 0.96 mg/dL 0.92 0.84 0.88 Sodium 136 - 144 mmol/L 138 143 135 (L) Potassium 3.7 - 5.1 mmol/L 3.8 4.3 3.9 Chloride 97 - 105 mmol/L 105 111 (H) 103 CO2 22 - 30 mmol/L 23 20 (L) 23 Anion Gap 9 - 18 mmol/L 10 12 9 ALT 7 - 38 U/L 37 25 28 eGFR- >60 >60 >60 eGFR-All Other Races . >60 >60 >60 Cholesterol, Total <200 mg/dL 153 Triglyceride <150 mg/dL 126 HDL Cholesterol >39 mg/dL 54 LDL Cholesterol <100 mg/dL 74 Non HDL Cholesterol <130 mg/dL 99 Fasting Time hrs Unknown VLDL Cholesterol <30 mg/dL 25 TC:HDL Ratio <5.10 2.83 LDL:HDL Ratio <2.54 1.37 Hemoglobin A1C 4.3 - 5.6 % 5.4 Estimated Average Glucose mg/dL 108 COVID 19 Source [employer] UPPER RESPIRATORY TRACT SWAB COVID 19 Result [employer] Negative for COVID19 (SARS CoV2) by RT-PCR or equivalent method. Negative for COVID19 (SARS CoV2) by RT-PCR or equivalent method. TSH 0.270 - 4.200 uU/mL 3.070 Free T4 0.9 - 1.7 ng/dL 1.3 Free T3 2.3 - 4.1 pg/mL 2.8 Vitamin D 25 Hydroxy 31.0 - 80.0 ng/mL 78.1 Magnesium 1.7 - 2.3 mg/dL 1.9 CMV DNA (IU/mL) IU/mL CMV DNA not detected by PCR. ASSESSMENT/PLAN: 1. Acquired hypothyroidism - ICD9: 244.9, ICD10: E03.9 (primary diagnosis) - check TSH March 04 at upcoming appt, drawn through port - continue current dose of Synthroid for now - TSH BLD 2. Type 2 diabetes mellitus with microalbuminuria, without long-term current use of insulin ([facility]) -ICD9: 250.40, 791.0, ICD10: E11.29, R80.9 Not currently taking medication, diet controlled, labs are within normal limits - HGB A1C - LIPID PANEL BASIC 3. Vitamin D deficiency - ICD9: 268.9, ICD10: E55.9 - VITAMIN D 25 HYDROXY 4. Chronic anticoagulation - ICD9: V58.61, ICD10: Z79.01 No longer taking 5. Stage 3a chronic kidney disease (HCC) - ICD9: 585.3, ICD10: N18.31 Resolved, currently within normal limits Creatinine Date Value Ref Range Status 02/02/2022 0.83 0.58 - 0.96 mg/dL Final 01/20/2022 0.86 0.58 - 0.96 mg/dL Final 12/01/2021 0.84 0.58 - 0.96 mg/dL Final 09/15/2021 1.00 (H) 0.58 - 0.96 mg/dL Final 6. Hair thinning - ICD9: 704.00, ICD10: L65.9 May be due to age and thyroid disease, will check TSH with upcoming labs. B12 - VITAMIN B12 BLOOD 7. Excessive cerumen in ear canal, right - ICD9: 380.4, ICD10: H61.21 Request removal in office today. Hearing is decreased in office recommend follow-up with ear nose and throat physician for recheck of hearing aids 8. Gastroesophageal reflux disease, unspecified whether esophagitis present - ICD9: 530.81, ICD10: K21.9 Without current complaints, stable 9. Colostomy status ([facility]) - ICD9: V44.3, ICD10: Z93. EGD and ileoscopy 2018 Recent hospital visit [facility] with excessive output, hypokalemia now resolved 10. Bronchiectasis without acute exacerbation ([facility]) - ICD9: 494.0, ICD10: J47.[address] Moser, upcoming 11. 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 * Telephone Encounter - Lidia Lopez MD - 02/07/2022 1:35 PM EDT Okay orders as noted * Telephone Encounter - Conchis Marquis RN - 02/06/2022 4:59 PM EDT Andrew PT with [facility] called and would like to add some more visits. He would like ordersfor 03/18/22 to have two visits a week for two weeks and the one visit a week for two weeks. Please call if provider approves this order. documented in this encounterSumma Health Wadsworth - [facility]05-16-2022 Miscellaneous Notes* Telephone Encounter - Stephanie Lagos - 02/02/2022 3:59 PM EDT Spoke with patient and scheduled. Stephanie Lagos * Telephone Encounter - Shaina Banda - 02/02/2022 3:32 PM EDT Patient returned office call and would like an in person appointment. Patient aware someone will becalling to set this up. * Telephone Encounter - Demond - 02/02/2022 2:44 PM EDT Left message for patient to return call. When patient calls, please verify if patient wants to do Oncology Nutrition Consult over the phone or in person. Once verified, document and route to [facility] HEM/ONC PSR for scheduling. Stephanie Lagos * Telephone Encounter - Clare Baez DO - 02/02/2022 12:01 PM EDT At today's office visit, Alexa expressed an interest in nutrition consult. Please arrange when able. 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 2) GVHD of the GI tract, liver, oral mucosa, vaginal mucosa and conjunctiva. HPI: The patient is a 71 yo female who was diagnosed with FLT3 ITD+/NPM1+ AML after presenting withchest pain. She received 7+3 and eltrombopag (CASE 1493) for induction. Her induction course was complicated by chest pain of unclear etiology and a skin rash likely due to cytarabine or zosyn. She had a UTI (E. coli) as well as noted pulmonary nodules on CT scan chest 07/13/2014. She was treated with posaconazole on 07/18/2014 since lesions appeared while on voriconazole. Discharged from [facility] 11/[facility]/2014 following cycle #3 HiDAC. 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 Did very well for first 100 days and was tolerating steroid taper. Several days after going home, developed nausea/vomiting. Culminated in total colectomy. Per discharge summary 08/20/2015: Ms. Smith is a 65 year old female who presents from [facility] with positive V/Q scan c/w intermediate risk of pulmonary embolism. 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 She presented to [facility] 08/06 with chest pain. Her pain is described as left and right sided with left sided shoulder pain. Some dyspnea that she attributes to pain not difficulty getting breath in. She denies radiation to her jaw or back, no diaphoresis, no heaviness. She has an allergy to iodine and omnipaque so it was not possible to do a CTPE for she had a V/Q scan which showed intermediate probability for PE. While at [facility] Dr. Welch from oncology saw the patient and had no further recs. Pulmonary saw the patient as well and had no further recs. Cardiology evaluated the patient and felt that her troponin elevation is most likely secondary to her PE which was of high suspicion given immobility and malignancy. He suggested aspirin, continue beta neda, hold statin, noted chronic RBBB. Troponins were 0.098 and 0.121. On admission here she is HDS, conversant, some residual left shoulder pain but improved overall, nofevers, chills, night sweats and limited SOB. No diarrhea, dysuria, cough, headaches. Last two hospitalizations: 06/04-06/19 Developed E. Coli bacteriemia and was treated with a full course of meropenem. She resides at [place] currently. 06/19-07/10 Recently admitted where she developed pneumatosis coli and was taken to surgery where she got a subtotal colectomy with end ileostomy. Had a full course of CMV treatment with ganciclovir, followed by ID. Hospital Course: Mrs Smith was admitted to the MICU and placed on a heparin drip for suspected pulmonary embolism. CT scan with PE protocol was negative for pulmonary embolism and the heparin drip wasstopped. Once stabilized she was transferred to the BMT unit. Rountine U/A and urine culture showeda UTI d/t a multi resistant E.Coli which was treatet with a week course of IV cetriaxone. Her hospital course was further complicated by atrial fibrillation with rapid ventricular response. This required transfer to cardiology ICU for continuous infusion amiodarone for hrt rate control. Her Coreg and norvasc was stopped due to low blood pressure. She was transitioned to oral Amiodarone, and her multiple medications were adjusted for interactions i.e ppx cipro and posa were dc'd. PT/OT recommended SNF upon discharge, final placement arrangements were made and she was transferred to [facility] Underwent ileoscopy on 08/17/2018 for potential GI bleed/GVHD. At approximately 28 cm proximal to the stoma one semi-pedunculated nonbleeding polyp was identified. It was 4 mm in diameter. Biopsies were obtained. Otherwise the examined portion of the ileum was normal. Pathology: 1. Ileum, biopsy (A) - Small intestinal mucosa with architectural distortion and occasional apoptotic bodies. See comment. 2. Ileum polyp, biopsy (B) - Small intestinal mucosa with architectural distortion and pyloric gland metaplasia, see comment. COMMENT The patient's history of umoax-arnwgl-ksin disease (GVHD) is noted. In the current specimen, only occasional apoptotic bodies are present, and do not meet our threshold for a diagnosis of GVHD (greater than 1 apoptotic body per piece of tissue). However, given their presence, some component of GVHDactivity cannot be entirely ruled out. Both biopsies show evidence of chronic mucosal injury, possibly from prior GVHD. Chronic infection,chronic ischemia and chronic drug/medication injury could also produce these histologic features. An immunostain for CMV will be obtained and the results will be reported as an addendum. EGD on 08/31/2018. She was observed to have localized, moderate inflammation characterized by erosions, erythema and friability as well as serpentine ulcerations in the gastric antrum. Biopsies were obtained. The examined duodenum was normal. The lower third and middle third of the esophagus were both normal. Patient was advised to use sucralfate in addition to her proton pump inhibitor. Pathology: 1. Duodenum, biopsy (A) - Duodenal mucosa with minimal crypt apoptosis. 2. Antrum, biopsy (B) - Antral mucosa with chronic active inflammation and features of erosion. - See comment. 3. Esophagogastric junction, biopsy (C) - Reactive squamous mucosa and inflamed cardiac mucosa. - No evidence of intestinal metaplasia or dysplasia. 4. Mid esophagus, biopsy (D) - Mildly reactive squamous mucosa with rare intraepithelial eosinophils (up to 2 eosinophils in a single high power field). COMMENT The level of apoptotic activity seen the duodenum biopsy (part A) is insufficient to warrant a diagnosis of GVHD. H. pylori and CMV immunostains performed on the antrum biopsy (part B) to evaluate the chronic active inflammation are both negative. Underwent left hip replacement in January 2019. Presents for ongoing oncologic management. Interim history: She was hospitalized at [facility] for a week in December for neurovirus diarrhea withdehydration and acute kidney injury. She received full supportive care and made a very nice recovery. No longer having diarrhea. No abdominal pain or cramping. No bloody stools. No fever. Appetite has increased very nicely and she is not having any nausea. While in the hospital she had considerable decline in her lower extremity strength. She is now backin PT and feels that she has gained back some of her strength. She has a very difficult time climbing stairs. Remains off sirolimus. She is not had any recurrence of oral mucosal GVHD. She is really having a lot of trouble though with her eyes and has been having more blurred vision. She is undergoing ophthalmologic evaluation and management--most recent notes reviewed. Lacrimal duct plugging. Flares of vulvovaginal GVHD but she largely ignores those symptoms as her preference is not to use topical therapy. Continues under the care of apple thinner. Continues metoprolol for sinus tachycardia. No lower extremity swelling or edema. No exertional chest pain. Was seen at main campus BMT. CMV and EBV ruled out. Subsorting for T-cell lymphoproliferative disorder negative. PMH, medications and allergies personally reviewed by me today. Any changes documented in appropriate section. PHYSICAL EXAM: Vitals: Blood pressure 112/57, pulse 72, temperature 36.7 C (98 F), weight 68 kg (150 lb), SpO2 95 %. Well-appearing and in no acute distress. EYES: Sclerae are anicteric bilaterally. No conjunctival injection. ENT: Changes of mucositis on the hard palate. NECK: Supple. LYMPHATIC: There is no palpable cervical, supraclavicular or axillary adenopathy. RESPIRATORY: Inspiratory breath sounds are of normal intensity in all hammond. No rales, wheezes or rhonchi. CARDIOVASCULAR: Rhythm is regular. ABDOMEN: The abdomen is nondistended. There is generalized tenderness throughout. Extremities: No swelling or edema. SKIN: No jaundice or rash. NEUROLOGIC: operations boardman II-XII are grossly intact. No focal motor weakness per se, but needs more help stepping up onto the exam table. 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 -Continued low-grade ksocd-fflpkx-iwyv disease of the conjunctiva, oral mucosa and vaginal area. Symptoms controlled with topical therapy. -Sirolimus discontinued. -Developed symptoms of chronic bronchitis and bronchiectasis. Evaluated by pulmonary medicine. On bronchodilator therapy and Mucinex with improvement in symptoms. -Recent testing for CMV and EBV negative. T-cell clone negative. Lymphocyte count improved. Monocytosis not present currently. Plan: -Continue physical therapy. -She will continue current management of GVHD. -Vaginal estrogen cream and clobetasol regimen for vulvar irritation from ignacio vs host dx per group cio. -Otherwise office visit with lab work in 3-4 months. Portions of this documentation were copied and pasted from previous office visit notes in order to provide a cohesive continuity of the history. The note has been reviewed and edited and updated as necessary. Clare Baez DO documented in this encounterSumma Health Wadsworth [facility]05-12-2022 Miscellaneous Notes* Telephone Encounter - Marta Light LPN - 01/29/2022 10:45 AM EDT LARISSA Bey @ [facility] notified of providers response and verbalized understanding. * Telephone Encounter - Lidia Lopez MD - 01/28/2022 6:58 PM EDT Give verbal order okay * Telephone Encounter - Bebe Gutierrez RN - 01/28/2022 3:50 PM EDT LARISSA Bey @ [facility] calling for verbal okay for plan of care. OT will see patient 1 x/week for four weeks for ADLs. # [phone]. Bebe Gutierrez RN documented in this encounterSumma Health Wadsworth [facility]05-03-2022 Miscellaneous Notes* Telephone Encounter - Conchis Marquis RN - 01/20/2022 4:20 PM EDT Pt called and is notified of providers results and instructions. Pt voices understanding. She reports that she had labs draw right after lunch, so that is probably why her blood sugar was up. She will try to increase her fluid intake. Conchis Marquis RN * Telephone Encounter - Selina Driscoll APRN.KOBE - 01/20/2022 3:57 PM EDT BUN and creatinine were within normal limits January 15, 2022 per outside lab work - see scanned documents. Follow-up lab work today shows that she is not getting sufficient fluid. BUN is again elevated. She needs to increase fluid intake to help normalize this. Glucose is elevated as well. Has upcoming labwork and upcoming visit. Component Latest Ref Rng & Units 01/20/2022 Glucose 74 - 99 mg/dL 128 (H) BUN 7 - 21 mg/dL 31 (H) Creatinine 0.58 - 0.96 mg/dL 0.86 Sodium 136 - 144 mmol/L 138 Potassium 3.7 - 5.1 mmol/L 4.4 Chloride 97 - 105 mmol/L 104 CO2 22 - 30 mmol/L 24 Anion Gap 9 - 18 mmol/L 10 Calcium 8.5 - 10.2 mg/dL 8.8 eGFR >=60 mL/min/1.73m 73 Phosphorus 2.7 - 4.8 mg/dL 3.4 Magnesium 1.7 - 2.3 mg/dL 1.8 Hemoglobin A1C (%) Date Value 02/03/2021 5.4 documented in this encounterSumma Health Wadsworth [facility]05-02-2022 Miscellaneous Notes* Telephone Encounter - Mallika Suarez RN - 01/19/2022 1:01 PM EDT Notified Shaina of provider's message below. * Telephone Encounter - Selina Driscoll APRN.CNS - 01/19/2022 11:42 AM EDT [place] [facility] * Telephone Encounter - Svitlana Meek RN - 01/19/2022 8:39 AM EDT Shaina with [facility] calling and requesting orders for patient's Nursing Plan of Care. [facility] would like to see patient for Nursing Services 2x/wk x 2 weeks then 1x/wk for 7 weeks. Please call Shaina with approval of order at [phone]. Thank you. documented in this encounterSumma Health Wadsworth - [facility] Center04-29-2022 Miscellaneous Notes* Telephone Encounter - Selina Driscoll APRN.CNS - 01/16/2022 4:41 PM EDT note she declines. * Telephone Encounter - Marta Light LPN - 01/16/2022 4:24 PM EDT Spoke with patient and gave her providers message and she verbalized understanding. Appointment fornext week was offered but patient declined due to appt conflicts. Patient is wanting to just followup at her current scheduled appt on 5.23. Please advice * Telephone Encounter - Selina Driscoll APRN.CNS - 01/16/2022 3:37 PM EDT should get labs this weekend, schedule visit next week with Lidia Lopez MD or prateek * Telephone Encounter - Selina Driscoll APRN.CNS - 01/16/2022 3:05 PM EDT Can we get labs/discharge summary? Did Dr Mock already order these labs and is she seeing her in follow up of [place]? If not we can order. * Telephone Encounter - Stephanie Carvajal RN - 01/16/2022 1:21 PM EDT Patient calls and states that she was admitted to [facility] for Acute Kidney Injury and just recently got out. Patient was seen by Dr. Mock. Per patient, patient states that she was supposed to give provider a call to put in labs to check kidney function next week. Patient states these labs were BMP, Phosphorus, and Magnesium. Patient asking for lab orders so she can get these labs done. Please review and advise, Stephanie Carvajal RN documented in this encounterSumma Health Wadsworth - [facility] Center04-29-2022 Miscellaneous Notes* Telephone Encounter - Marta Light LPN - 01/16/2022 3:33 PM EDT No answer. Left message providers message ask to call with any questions or concerns. * Telephone Encounter - Selina Driscoll APRN.CNS - 01/16/2022 3:04 PM EDT [place] [facility] * Telephone Encounter - Conchis Marquis RN - 01/16/2022 2:45 PM EDT Andrew PT from [facility] called in and was reporting his POC. He states they will only be seeing the patient once this week, then three times a week for two weeks, then twice a week for two weeks. Hestates that will be working on strengthening, safety, and getting her back to being Independent. Please call with providers approval. He reports you can leave a message as his line is secure. documented in this encounterSumma Health Wadsworth [facility]04-28-2022 Miscellaneous Notes* Telephone Encounter - Madelyn Lew Cma - 01/15/2022 1:39 PM EDT Judi notified and verbalized understanding Madelyn Lew Cma * Telephone Encounter - Selina Driscoll APRN.CNS - 01/15/2022 9:20 AM EDT [place] [facility]. Admit 01/11/2022 [facility]. D/C [facility] [place], dehydration, orthostasis, rotviral gastroentereritis. Does she need follow up in internal medicine? Has appt with Dr Baez 02/02. * Telephone Encounter - Janessa Serrano LPN - 01/15/2022 9:11 AM EDT Judi from [facility] states pt is to be discharged from hospital today. Judi received a referral from [facility] for home health & is asking if pcp will follow? Janessa Serrano LPN documented in this encounterSumma Health Wadsworth - [facility]04-05-2022 Miscellaneous Notes* Telephone Encounter - Rosalia Potts LPN - 12/23/2021 1:17 PM EDT Patient's request for medication is as follows: Pending Prescriptions Disp Refills METOPROLOL TARTRATE 25 MG TABLET 90 tablet 3 Sig: Take 1 tablet by mouth once daily. JOSIE: No Last seen 06/09/2021. Next visit 03/16/2022. Prescription(s) as above. Please process accordingly. Rosalia Potts LPN documented in this encounterSumma Health Wadsworth - [facility] Center03-30-2022 Miscellaneous Notes* Telephone Encounter - Ariella Lew LPN - 12/17/2021 12:25 PM EDT Form from [facility] rx for albuterol sulfate signed by dr de la rosa and faxed back to [facility] at [phone]. Transmission was successful, paperwork in fax drawer documented in this encounterSumma Health Wadsworth - [facility] Center03-17-2022 Instructions* Patient Instructions* Madelyn Meade RN - 12/04/2021 2:54 PM EDT NURSE: Madelyn Meade RN MD F/U APPTS: MD JESSE Modi F/U - 06/04 @ 10:30 or pt pref around this date RESEARCH: N/A SCHEDULE LABS: 1 hour prior to MD Appointment at [facility] 1 Lab ([place]) CALL PATIENT: Patient not aware of appt times requested, call pt before scheduling TREATMENT APPTS: None SEE RAD/OTHER ORDERS: No documented in this encounterSumma Health Wadsworth - [facility] Center09-07-2021 History of Present illness Narrative* Sabrina Dubose, RT(R) - 05/27/2021 1:50 PM EDT Radiology Service Progress Note PATIENT NAME: Cong Smith DATE OF SERVICE: May 27, 2021 TIME: 1:47 PM PATIENT IDENTITY VERIFICATION COMPLETED USING TWO (2) IDENTIFIERS: Name and Date of confirmedby patient verbally. FALL SCREENING: Has the patient had 2 falls in the last year or 1 fall with injury or currently using an Ambulatory Assistive Device (Walker, Cane, Wheelchair, Crutches, etc.)? No PATIENT GENDER DATA: Female. status: : No status: NO. PATIENT RELEVANT IMPLANT DATA REVIEWED: Yes RADIOLOGY DEPARTMENT: General X-ray: Exam(s) Completed: Chest X-Ray PERIPHERAL IV DATA: Not applicable SIGNED BY: RT Kvng(R) May 27, 2021 1:47 PM documented in this encounterSumma Health Wadsworth - [facility]itt[facility] Center08-24-2021 History of Present illness Narrative* Shahla Rm RT(R) - 05/13/2021 3:50 PM EDT Radiology Service Progress Note PATIENT NAME: Cong Smith DATE OF SERVICE: May 13, 2021 TIME: 3:43 pm PATIENT IDENTITY VERIFICATION COMPLETED USING TWO (2) IDENTIFIERS: Name and Date of confirmedby patient verbally. FALL SCREENING: Has the patient had 2 falls in the last year or 1 fall with injury or currently using an Ambulatory Assistive Device (Walker, Cane, Wheelchair, Crutches, etc.)? No PATIENT GENDER DATA: Female. status: : No status: NO. PATIENT RELEVANT IMPLANT DATA REVIEWED: Not Applicable RADIOLOGY DEPARTMENT: General X-ray: Exam(s) Completed: Chest X-Ray PERIPHERAL IV DATA: Not applicable SIGNED BY: RT Antonia(R) May 13, 2021 3:53 PM documented in this encounter[facility] History of Past illness Narrative* Problem Noted Date Resolved Date Shortness of breath 10/14/2020 06/19/2022 Parastomal hernia 05/29/2020 06/04/2020 Last Assessment & Plan: Assessment: s/p 05/29 parastomal hernia repair with TAR PLAN: -continue postoperative care Colostomy status 09/18/2018 06/03/2022 PEPE (acute kidney injury) 09/12/20182021 Overview: Last Assessment & Plan: SCr normalized to 1.02 today, SCr 3.2 on admission at OSH. Baseline 0.8-1.0. Likely 2/2 dehydration from vomiting and hyperCa. Continue MIVF as discussed elsewhere. Last Assessment & Plan: SCr normalized to 1.02 today, SCr 3.2 on admission at OSH. Baseline 0.8-1.0. Likely 2/2 dehydration from vomiting and hyperCa. Continue MIVF as discussed elsewhere. Stage 3 chronic kidney disease 05/13/2018 0 06/03/2022 Dehydration 05/13/2018 06/03/2022 Itching 01/11/2018 02/18/2018 Insomnia 01/11/2018 09/18/2018 Abnormal echocardiogram 06/03/2017 09/02/20 17 SBO (small bowel obstruction) 01/25/2017 Abdominal pain 01/25/2017 01/25/2017 Overview: --01/24 Outside ER admit for 06/29 abd pain, decreased Colostomy output. CT 01/24/17 with new hernia in RLQ. --5/8 Pt states no abd pain/craming and pain 0/10, +stool output and tolerating liquids and solids. Plan for General Surg f/u outpatient for h/o SBO. 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 may need to increase FK and/or start low dose steroids Bronchopneumonia due to human metapneumovirus (h MPV) 01/14/2017 01/29/2017 Overview: -- presented as fever, cough, sinus NULL. -- RVP was (+) for Human metapneumovirus --CXR ? basilar atalectasis v pneumonia; --CT sinus acute sinusitis - u/a C&S neg - had persistent fevers and received 2 days of zosyn (01/16-01/17); -- zosyn was dc'd with all cultures being neg and she remained afebrile -- developed hypoxia with a positive desat study -- DC'd Home with O2 f/u 01/20/[address] Tatyana KIM (right bundle branch block) 09/24/2016 05/18/2018 Abnormality of gait 09/11/2016 01/21/2017 Secondary adrenal insufficiency 09/07/2016 04/27/2018 Type 2 diabetes mellitus wit h microalbuminuria, without long-term current use of insulin 07/02/2016 02/10/2022 Physical deconditioning 10/01/2015 09/07/20 16 Overview: Per LDT 10/30/15 fci charges Diarrhea 09/11/2015 01/21/2017 Overview: --increased watery stool output through ostomy; 01/16: c-diff neg --start imodium BID Acute pulmonary embolism 08/06/2015 016 Overview: --Patient presented with pleuritic Chest Pain, Heparin gtt initiated until PE ruled out --Negative for PE CT with PE protocol. Heparin drip was discontinued. 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 --c/o blood in urine & dysuria. 2+ Hb on UA. Check BK urine. Empiric cipro started --07/08- symptoms improving --07/09: +BK (162,000) copies: continue cipro for tx. 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 Treated w ganciclovir. Plan: - continue acyclovir - monitor tac levels Dysmetabolic syndrome X 09/07/20 16 Obesity 09/08/2017 Overview: Obesity class III Body mass index is 32.09 kg/(m^2). 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 Treated with vori, then changed to posa d/t presumed resistance. Repeat CT chest 10/12/14 improved. 12/14/14 CT clear --ppx posa PFO (patent foramen ovale) 11/06 Obstructive lung disease (generalized) 02/04/2016 Overview: --monitor. No h/o smoking. Not currently on any treatment at this time. Reduced FEV1 and DLCO. recent Pneumothorax on right Overview: --right sided chest pain that radiates to the scapula. Worse with deep breath. Scapula tender to palpation. -- CXR showedsmall right apical pneumothorax. EKG unremarkable. Cardiac enzymes negative. --Right apical pneumothorax most likely cause of her chest pain. No respiratory distress. On room air. --11/30 CXR shows pneumo no longer visible. 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 food related vs GVHD; pt cutting back on snacking today; on GVHD diet (GI soft/fiber controlled). --stool [id number] 07/05 (down from 2500ml 07/04). Some blood in stool overnight 07/05; platelets transfused. No blood noted afterward. --increased stool 1725ml 07/06. No colonoscopy; continue to hold off on ECP; 07/09-stool output decreasing; monitor documented as of this encounter (statuses as of 06/19/2022) [facility]01[facility] History of Past illness Narrative* Problem Noted Date Resolved Date Shortness of breath 10/14/2020 06/19/2022 Parastomal hernia 05/29/2020 06/04/2020 Last Assessment & Plan: Assessment: s/p 05/29 parastomal hernia repair with TAR PLAN: -continue postoperative care Colostomy status 09/18/2018 06/03/2022 PEPE (acute kidney injury) 09/12/20182021 Overview: Last Assessment & Plan: SCr normalized to 1.02 today, SCr 3.2 on admission at OSH. Baseline 0.8-1.0. Likely 2/2 dehydration from vomiting and hyperCa. Continue MIVF as discussed elsewhere. Last Assessment & Plan: SCr normalized to 1.02 today, SCr 3.2 on admission at OSH. Baseline 0.8-1.0. Likely 2/2 dehydration from vomiting and hyperCa. Continue MIVF as discussed elsewhere. Stage 3 chronic kidney disease 05/13/2018 0 06/03/2022 Dehydration 05/13/2018 06/03/2022 Itching 01/11/2018 02/18/2018 Insomnia 01/11/2018 09/18/2018 Abnormal echocardiogram 06/03/2017 09/02/20 17 SBO (small bowel obstruction) 01/25/2017 Abdominal pain 01/25/2017 01/25/2017 Overview: --01/24 Outside ER admit for 06/29 abd pain, decreased Colostomy output. CT 01/24/17 with new hernia in RLQ. --01/25 Pt states no abd pain/craming and pain 0/10, +stool output and tolerating liquids and solids. Plan for General Surg f/u outpatient for h/o SBO. 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 may need to increase FK and/or start low dose steroids Bronchopneumonia due to human metapneumovirus (h MPV) 01/14/2017 01/29/2017 Overview: -- presented as fever, cough, sinus NULL. -- RVP was (+) for Human metapneumovirus --CXR ? basilar atalectasis v pneumonia; --CT sinus acute sinusitis - u/a C&S neg - had persistent fevers and received 2 days of zosyn (01/16-01/17); -- zosyn was dc'd with all cultures being neg and she remained afebrile -- developed hypoxia with a positive desat study -- DC'd Home with O2 f/u 01/20/[address] Tatyana KIM (right bundle branch block) 09/24/2016 05/18/2018 Abnormality of gait 09/11/2016 01/21/2017 Secondary adrenal insufficiency 09/07/2016 04/27/2018 Type 2 diabetes mellitus wit h microalbuminuria, without long-term current use of insulin 07/02/2016 02/10/2022 Physical deconditioning 10/01/2015 09/07/20 16 Overview: Per LDT 10/30/15 fci charges Diarrhea 09/11/2015 01/21/2017 Overview: --increased watery stool output through ostomy; 01/16: c-diff neg --start imodium BID Acute pulmonary embolism 08/06/2015 016 Overview: --Patient presented with pleuritic Chest Pain, Heparin gtt initiated until PE ruled out --Negative for PE CT with PE protocol. Heparin drip was discontinued. 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 --c/o blood in urine & dysuria. 2+ Hb on UA. Check BK urine. Empiric cipro started --07/08- symptoms improving --07/09: +BK (162,000) copies: continue cipro for tx. 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 Treated w ganciclovir. Plan: - continue acyclovir - monitor tac levels Dysmetabolic syndrome X 09/07/20 16 Obesity 09/08/2017 Overview: Obesity class III Body mass index is 32.09 kg/(m^2). 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 Treated with vori, then changed to posa d/t presumed resistance. Repeat CT chest 10/12/14 improved. 12/14/14 CT clear --ppx posa PFO (patent foramen ovale) 11/06 Obstructive lung disease (generalized) 02/04/2016 Overview: --monitor. No h/o smoking. Not currently on any treatment at this time. Reduced FEV1 and DLCO. recent Pneumothorax on right Overview: --right sided chest pain that radiates to the scapula. Worse with deep breath. Scapula tender to palpation. -- CXR showedsmall right apical pneumothorax. EKG unremarkable. Cardiac enzymes negative. --Right apical pneumothorax most likely cause of her chest pain. No respiratory distress. On room air. --11/30 CXR shows pneumo no longer visible. 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 food related vs GVHD; pt cutting back on snacking today; on GVHD diet (GI soft/fiber controlled). --stool [id number] 07/05 (down from 2500ml 07/04). Some blood in stool overnight 07/05; platelets transfused. No blood noted afterward. --increased stool 1725ml 07/06. No colonoscopy; continue to hold off on ECP; 07/09-stool output decreasing; monitor documented as of this encounter (statuses as of 06/21/2022) [facility]01[facility] History of Past illness Narrative* Problem Noted Date Resolved Date Shortness of breath 10/14/2020 06/19/2022 Parastomal hernia 05/29/2020 06/04/2020 Last Assessment & Plan: Assessment: s/p 05/29 parastomal hernia repair with TAR PLAN: -continue postoperative care Colostomy status 09/18/2018 06/03/2022 PEPE (acute kidney injury) 09/12/20182021 Overview: Last Assessment & Plan: SCr normalized to 1.02 today, SCr 3.2 on admission at OSH. Baseline 0.8-1.0. Likely 2/2 dehydration from vomiting and hyperCa. Continue MIVF as discussed elsewhere. Last Assessment & Plan: SCr normalized to 1.02 today, SCr 3.2 on admission at OSH. Baseline 0.8-1.0. Likely 2/2 dehydration from vomiting and hyperCa. Continue MIVF as discussed elsewhere. Stage 3 chronic kidney disease 05/13/2018 0 06/03/2022 Dehydration 05/13/2018 06/03/2022 Itching 01/11/2018 02/18/2018 Insomnia 01/11/2018 09/18/2018 Abnormal echocardiogram 06/03/2017 09/02/20 17 SBO (small bowel obstruction) 01/25/2017 Abdominal pain 01/25/2017 01/25/2017 Overview: --7 Outside ER admit for 10 abd pain, decreased Colostomy output. CT 01/24/17 with new hernia in RLQ. --58 Pt states no abd pain/craming and pain 0/10, +stool output and tolerating liquids and solids. Plan for General Surg f/u outpatient for h/o SBO. 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 may need to increase FK and/or start low dose steroids Bronchopneumonia due to human metapneumovirus (h MPV) 01/14/2017 01/29/2017 Overview: -- presented as fever, cough, sinus NULL. -- RVP was (+) for Human metapneumovirus --CXR ? basilar atalectasis v pneumonia; --CT sinus acute sinusitis - u/a C&S neg - had persistent fevers and received 2 days of zosyn (01/16-01/17); -- zosyn was dc'd with all cultures being neg and she remained afebrile -- developed hypoxia with a positive desat study -- DC'd Home with O2 f/u 01/20/[address] Tatyana KIM (right bundle branch block) 09/24/2016 05/18/2018 Abnormality of gait 09/11/2016 01/21/2017 Secondary adrenal insufficiency 09/07/2016 04/27/2018 Type 2 diabetes mellitus wit h microalbuminuria, without long-term current use of insulin 07/02/2016 02/10/2022 Physical deconditioning 10/01/2015 09/07/20 16 Overview: Per LDT 10/30/15 fci charges Diarrhea 09/11/2015 01/21/2017 Overview: --increased watery stool output through ostomy; 01/16: c-diff neg --start imodium BID Acute pulmonary embolism 08/06/2015 016 Overview: --Patient presented with pleuritic Chest Pain, Heparin gtt initiated until PE ruled out --Negative for PE CT with PE protocol. Heparin drip was discontinued. 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 --c/o blood in urine & dysuria. 2+ Hb on UA. Check BK urine. Empiric cipro started --07/08- symptoms improving --07/09: +BK (162,000) copies: continue cipro for tx. 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 Treated w ganciclovir. Plan: - continue acyclovir - monitor tac levels Dysmetabolic syndrome X 09/07/20 16 Obesity 09/08/2017 Overview: Obesity class III Body mass index is 32.09 kg/(m^2). 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 Treated with vori, then changed to posa d/t presumed resistance. Repeat CT chest 1/23/15 improved. 12/14/14 CT clear --ppx posa PFO (patent foramen ovale) 11/06 Obstructive lung disease (generalized) 02/04/2016 Overview: --monitor. No h/o smoking. Not currently on any treatment at this time. Reduced FEV1 and DLCO. recent Pneumothorax on right Overview: --right sided chest pain that radiates to the scapula. Worse with deep breath. Scapula tender to palpation. -- CXR showedsmall right apical pneumothorax. EKG unremarkable. Cardiac enzymes negative. --Right apical pneumothorax most likely cause of her chest pain. No respiratory distress. On room air. --11/30 CXR shows pneumo no longer visible. 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 food related vs GVHD; pt cutting back on snacking today; on GVHD diet (GI soft/fiber controlled). --stool [id number] 07/05 (down from 2500ml 07/04). Some blood in stool overnight 07/05; platelets transfused. No blood noted afterward. --increased stool 1725ml 07/06. No colonoscopy; continue to hold off on ECP; 07/09-stool output decreasing; monitor documented as of this encounter (statuses as of 06/22/2022) [facility] History of Past illness Narrative* Problem Noted Date Resolved Date Shortness of breath 10/14/2020 06/19/2022 Parastomal hernia 05/29/2020 06/04/2020 Last Assessment & Plan: Assessment: s/p 05/29 parastomal hernia repair with TAR PLAN: -continue postoperative care Colostomy status 09/18/2018 06/03/2022 PEPE (acute kidney injury) 09/12/20182021 Overview: Last Assessment & Plan: SCr normalized to 1.02 today, SCr 3.2 on admission at OSH. Baseline 0.8-1.0. Likely 2/2 dehydration from vomiting and hyperCa. Continue MIVF as discussed elsewhere. Last Assessment & Plan: SCr normalized to 1.02 today, SCr 3.2 on admission at OSH. Baseline 0.8-1.0. Likely 2/2 dehydration from vomiting and hyperCa. Continue MIVF as discussed elsewhere. Stage 3 chronic kidney disease 05/13/2018 0 06/03/2022 Dehydration 05/13/2018 06/03/2022 Itching 01/11/2018 02/18/2018 Insomnia 01/11/2018 09/18/2018 Abnormal echocardiogram 06/03/2017 09/02/20 17 SBO (small bowel obstruction) 01/25/2017 Abdominal pain 01/25/2017 01/25/2017 Overview: --01/24 Outside ER admit for 10 abd pain, decreased Colostomy output. CT 01/24/17 with new hernia in RLQ. --5/8 Pt states no abd pain/craming and pain 0/10, +stool output and tolerating liquids and solids. Plan for General Surg f/u outpatient for h/o SBO. 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 may need to increase FK and/or start low dose steroids Bronchopneumonia due to human metapneumovirus (h MPV) 01/14/2017 01/29/2017 Overview: -- presented as fever, cough, sinus NULL. -- RVP was (+) for Human metapneumovirus --CXR ? basilar atalectasis v pneumonia; --CT sinus acute sinusitis - u/a C&S neg - had persistent fevers and received 2 days of zosyn (01/16-01/17); -- zosyn was dc'd with all cultures being neg and she remained afebrile -- developed hypoxia with a positive desat study -- DC'd Home with O2 f/u 01/20/[address] Tatyana KIM (right bundle branch block) 09/24/2016 05/18/2018 Abnormality of gait 09/11/2016 01/21/2017 Secondary adrenal insufficiency 09/07/2016 04/27/2018 Type 2 diabetes mellitus wit h microalbuminuria, without long-term current use of insulin 07/02/2016 02/10/2022 Physical deconditioning 10/01/2015 09/07/20 16 Overview: Per LDT 10/30/15 fci charges Diarrhea 09/11/2015 01/21/2017 Overview: --increased watery stool output through ostomy; 01/16: c-diff neg --start imodium BID Acute pulmonary embolism 08/06/2015 016 Overview: --Patient presented with pleuritic Chest Pain, Heparin gtt initiated until PE ruled out --Negative for PE CT with PE protocol. Heparin drip was discontinued. 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 --c/o blood in urine & dysuria. 2+ Hb on UA. Check BK urine. Empiric cipro started --07/08- symptoms improving --07/09: +BK (162,000) copies: continue cipro for tx. 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 Treated w ganciclovir. Plan: - continue acyclovir - monitor tac levels Dysmetabolic syndrome X 09/07/20 16 Obesity 09/08/2017 Overview: Obesity class III Body mass index is 32.09 kg/(m^2). 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 Treated with vori, then changed to posa d/t presumed resistance. Repeat CT chest 10/12/14 improved. 12/14/14 CT clear --ppx posa PFO (patent foramen ovale) 11/06 Obstructive lung disease (generalized) 02/04/2016 Overview: --monitor. No h/o smoking. Not currently on any treatment at this time. Reduced FEV1 and DLCO. recent Pneumothorax on right Overview: --right sided chest pain that radiates to the scapula. Worse with deep breath. Scapula tender to palpation. -- CXR showedsmall right apical pneumothorax. EKG unremarkable. Cardiac enzymes negative. --Right apical pneumothorax most likely cause of her chest pain. No respiratory distress. On room air. --11/30 CXR shows pneumo no longer visible. 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 food related vs GVHD; pt cutting back on snacking today; on GVHD diet (GI soft/fiber controlled). --stool [id number] 07/05 (down from 2500ml 07/04). Some blood in stool overnight 07/05; platelets transfused. No blood noted afterward. --increased stool 1725ml 07/06. No colonoscopy; continue to hold off on ECP; 07/09-stool output decreasing; monitor documented as of this encounter (statuses as of 06/22/2022) [facility] History of Past illness Narrative* Problem Noted Date Resolved Date Shortness of breath 10/14/2020 06/19/2022 Parastomal hernia 05/29/2020 06/04/2020 Last Assessment & Plan: Assessment: s/p 05/29 parastomal hernia repair with TAR PLAN: -continue postoperative care Colostomy status 09/18/2018 06/03/2022 PEPE (acute kidney injury) 09/12/20182021 Overview: Last Assessment & Plan: SCr normalized to 1.02 today, SCr 3.2 on admission at OSH. Baseline 0.8-1.0. Likely 2/2 dehydration from vomiting and hyperCa. Continue MIVF as discussed elsewhere. Last Assessment & Plan: SCr normalized to 1.02 today, SCr 3.2 on admission at [facility]. Baseline 0.8-1.0. Likely 2/2 dehydration from vomiting and hyperCa. Continue MIVF as discussed elsewhere. Stage 3 chronic kidney disease 05/13/2018 0 06/03/2022 Dehydration 05/13/2018 06/03/2022 Itching 01/11/2018 02/18/2018 Insomnia 01/11/2018 09/18/2018 Abnormal echocardiogram 06/03/2017 09/02/20 17 SBO (small bowel obstruction) 01/25/2017 Abdominal pain 01/25/2017 01/25/2017 Overview: --01/24 Outside ER admit for 06/29 abd pain, decreased Colostomy output. CT 01/24/17 with new hernia in RLQ. --01/25 Pt states no abd pain/craming and pain 0/10, +stool output and tolerating liquids and solids. Plan for General Surg f/u outpatient for h/o SBO. 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 may need to increase FK and/or start low dose steroids Bronchopneumonia due to human metapneumovirus (h MPV) 01/14/2017 01/29/2017 Overview: -- presented as fever, cough, sinus NULL. -- RVP was (+) for Human metapneumovirus --CXR ? basilar atalectasis v pneumonia; --CT sinus acute sinusitis - u/a C&S neg - had persistent fevers and received 2 days of zosyn (01/16-01/17); -- zosyn was dc'd with all cultures being neg and she remained afebrile -- developed hypoxia with a positive desat study -- DC'd Home with O2 f/u 01/20/[address] Tatyana KIM (right bundle branch block) 09/24/2016 05/18/2018 Abnormality of gait 09/11/2016 01/21/2017 Secondary adrenal insufficiency 09/07/2016 04/27/2018 Type 2 diabetes mellitus wit h microalbuminuria, without long-term current use of insulin 07/02/2016 02/10/2022 Physical deconditioning 10/01/2015 09/07/20 16 Overview: Per LDT 10/30/15 fci charges Diarrhea 09/11/2015 01/21/2017 Overview: --increased watery stool output through ostomy; 01/16: c-diff neg --start imodium BID Acute pulmonary embolism 08/06/2015 016 Overview: --Patient presented with pleuritic Chest Pain, Heparin gtt initiated until PE ruled out --Negative for PE CT with PE protocol. Heparin drip was discontinued. 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 --c/o blood in urine & dysuria. 2+ Hb on UA. Check BK urine. Empiric cipro started --07/08- symptoms improving --07/09: +BK (162,000) copies: continue cipro for tx. 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 Treated w ganciclovir. Plan: - continue acyclovir - monitor tac levels Dysmetabolic syndrome X 09/07/20 16 Obesity 09/08/2017 Overview: Obesity class III Body mass index is 32.09 kg/(m^2). 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 Treated with vori, then changed to posa d/t presumed resistance. Repeat CT chest 10/12/14 improved. 12/14/14 CT clear --ppx posa PFO (patent foramen ovale) 11/06 Obstructive lung disease (generalized) 02/04/2016 Overview: --monitor. No h/o smoking. Not currently on any treatment at this time. Reduced FEV1 and DLCO. recent Pneumothorax on right Overview: --right sided chest pain that radiates to the scapula. Worse with deep breath. Scapula tender to palpation. -- CXR showedsmall right apical pneumothorax. EKG unremarkable. Cardiac enzymes negative. --Right apical pneumothorax most likely cause of her chest pain. No respiratory distress. On room air. --11/30 CXR shows pneumo no longer visible. 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 food related vs GVHD; pt cutting back on snacking today; on GVHD diet (GI soft/fiber controlled). --stool [id number] 07/05 (down from 2500ml 07/04). Some blood in stool overnight 07/05; platelets transfused. No blood noted afterward. --increased stool 1725ml 07/06. No colonoscopy; continue to hold off on ECP; 07/09-stool output decreasing; monitor documented as of this encounter (statuses as of 06/22/2022) [facility]01-25-2021 History of Past illness Narrative* Problem Noted Date Resolved Date Shortness of breath 10/14/2020 06/19/2022 Parastomal hernia 05/29/2020 06/04/2020 Last Assessment & Plan: Assessment: s/p 05/29 parastomal hernia repair with TAR PLAN: -continue postoperative care Colostomy status 09/18/2018 06/03/2022 PEPE (acute kidney injury) 09/12/20182021 Overview: Last Assessment & Plan: SCr normalized to 1.02 today, SCr 3.2 on admission at OSH. Baseline 0.8-1.0. Likely 2/2 dehydration from vomiting and hyperCa. Continue MIVF as discussed elsewhere. Last Assessment & Plan: SCr normalized to 1.02 today, SCr 3.2 on admission at OSH. Baseline 0.8-1.0. Likely 2/2 dehydration from vomiting and hyperCa. Continue MIVF as discussed elsewhere. Stage 3 chronic kidney disease 05/13/2018 0 06/03/2022 Dehydration 05/13/2018 06/03/2022 Itching 01/11/2018 02/18/2018 Insomnia 01/11/2018 09/18/2018 Abnormal echocardiogram 06/03/2017 09/02/20 17 SBO (small bowel obstruction) 01/25/2017 Abdominal pain 01/25/2017 01/25/2017 Overview: --/7 Outside ER admit for 10 abd pain, decreased Colostomy output. CT 01/24/17 with new hernia in RLQ. --5/8 Pt states no abd pain/craming and pain 0/10, +stool output and tolerating liquids and solids. Plan for General Surg f/u outpatient for h/o SBO. 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 may need to increase FK and/or start low dose steroids Bronchopneumonia due to human metapneumovirus (h MPV) 01/14/2017 01/29/2017 Overview: -- presented as fever, cough, sinus NULL. -- RVP was (+) for Human metapneumovirus --CXR ? basilar atalectasis v pneumonia; --CT sinus acute sinusitis - u/a C&S neg - had persistent fevers and received 2 days of zosyn (01/16-01/17); -- zosyn was dc'd with all cultures being neg and she remained afebrile -- developed hypoxia with a positive desat study -- DC'd Home with O2 f/u 01/20/[address] Tatyana KIM (right bundle branch block) 09/24/2016 05/18/2018 Abnormality of gait 09/11/2016 01/21/2017 Secondary adrenal insufficiency 09/07/2016 04/27/2018 Type 2 diabetes mellitus wit h microalbuminuria, without long-term current use of insulin 07/02/2016 02/10/2022 Physical deconditioning 10/01/2015 09/07/20 16 Overview: Per LDT 10/30/15 fci charges Diarrhea 09/11/2015 01/21/2017 Overview: --increased watery stool output through ostomy; 01/16: c-diff neg --start imodium BID Acute pulmonary embolism 08/06/2015 016 Overview: --Patient presented with pleuritic Chest Pain, Heparin gtt initiated until PE ruled out --Negative for PE CT with PE protocol. Heparin drip was discontinued. 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 --c/o blood in urine & dysuria. 2+ Hb on UA. Check BK urine. Empiric cipro started --07/08- symptoms improving --07/09: +BK (162,000) copies: continue cipro for tx. 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 Treated w ganciclovir. Plan: - continue acyclovir - monitor tac levels Dysmetabolic syndrome X 09/07/20 16 Obesity 09/08/2017 Overview: Obesity class III Body mass index is 32.09 kg/(m^2). 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 Treated with vori, then changed to posa d/t presumed resistance. Repeat CT chest 10/12/14 improved. 12/14/14 CT clear --ppx posa PFO (patent foramen ovale) 11/06 Obstructive lung disease (generalized) 02/04/2016 Overview: --monitor. No h/o smoking. Not currently on any treatment at this time. Reduced FEV1 and DLCO. recent Pneumothorax on right Overview: --right sided chest pain that radiates to the scapula. Worse with deep breath. Scapula tender to palpation. -- CXR showedsmall right apical pneumothorax. EKG unremarkable. Cardiac enzymes negative. --Right apical pneumothorax most likely cause of her chest pain. No respiratory distress. On room air. --11/30 CXR shows pneumo no longer visible. 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 food related vs GVHD; pt cutting back on snacking today; on GVHD diet (GI soft/fiber controlled). --stool [id number] 07/05 (down from 2500ml 07/04). Some blood in stool overnight 07/05; platelets transfused. No blood noted afterward. --increased stool 1725ml 07/06. No colonoscopy; continue to hold off on ECP; 07/09-stool output decreasing; monitor documented as of this encounter (statuses as of 07/06/2022) [facility]01-25-2021 History of Past illness Narrative* Problem Noted Date Resolved Date Shortness of breath 10/14/2020 06/19/2022 Parastomal hernia 05/29/2020 06/04/2020 Last Assessment & Plan: Assessment: s/p 05/29 parastomal hernia repair with TAR PLAN: -continue postoperative care Colostomy status 09/18/2018 06/03/2022 PEPE (acute kidney injury) 09/12/20182021 Overview: Last Assessment & Plan: SCr normalized to 1.02 today, SCr 3.2 on admission at OSH. Baseline 0.8-1.0. Likely 2/2 dehydration from vomiting and hyperCa. Continue MIVF as discussed elsewhere. Last Assessment & Plan: SCr normalized to 1.02 today, SCr 3.2 on admission at OSH. Baseline 0.8-1.0. Likely 2/2 dehydration from vomiting and hyperCa. Continue MIVF as discussed elsewhere. Stage 3 chronic kidney disease 05/13/2018 0 06/03/2022 Dehydration 05/13/2018 06/03/2022 Itching 01/11/2018 02/18/2018 Insomnia 01/11/2018 09/18/2018 Abnormal echocardiogram 06/03/2017 09/02/20 17 SBO (small bowel obstruction) 01/25/2017 Abdominal pain 01/25/2017 01/25/2017 Overview: --01/24 Outside ER admit for 1010 abd pain, decreased Colostomy output. CT 01/24/17 with new hernia in RLQ. --5/8 Pt states no abd pain/craming and pain 0/10, +stool output and tolerating liquids and solids. Plan for General Surg f/u outpatient for h/o SBO. 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 may need to increase FK and/or start low dose steroids Bronchopneumonia due to human metapneumovirus (h MPV) 01/14/2017 01/29/2017 Overview: -- presented as fever, cough, sinus NULL. -- RVP was (+) for Human metapneumovirus --CXR ? basilar atalectasis v pneumonia; --CT sinus acute sinusitis - u/a C&S neg - had persistent fevers and received 2 days of zosyn (01/16-01/17); -- zosyn was dc'd with all cultures being neg and she remained afebrile -- developed hypoxia with a positive desat study -- DC'd Home with O2 f/u 01/20/[address] Tatyana KIM (right bundle branch block) 09/24/2016 05/18/2018 Abnormality of gait 09/11/2016 01/21/2017 Secondary adrenal insufficiency 09/07/2016 04/27/2018 Type 2 diabetes mellitus wit h microalbuminuria, without long-term current use of insulin 07/02/2016 02/10/2022 Physical deconditioning 10/01/2015 09/07/20 16 Overview: Per LDT 10/30/15 fci charges Diarrhea 09/11/2015 01/21/2017 Overview: --increased watery stool output through ostomy; 01/16: c-diff neg --start imodium BID Acute pulmonary embolism 08/06/2015 016 Overview: --Patient presented with pleuritic Chest Pain, Heparin gtt initiated until PE ruled out --Negative for PE CT with PE protocol. Heparin drip was discontinued. 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 --c/o blood in urine & dysuria. 2+ Hb on UA. Check BK urine. Empiric cipro started --07/08- symptoms improving --07/09: +BK (162,000) copies: continue cipro for tx. 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 Treated w ganciclovir. Plan: - continue acyclovir - monitor tac levels Dysmetabolic syndrome X 09/07/20 16 Obesity 09/08/2017 Overview: Obesity class III Body mass index is 32.09 kg/(m^2). 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 Treated with vori, then changed to posa d/t presumed resistance. Repeat CT chest 10/12/14 improved. 12/14/14 CT clear --ppx posa PFO (patent foramen ovale) 11/06 Obstructive lung disease (generalized) 02/04/2016 Overview: --monitor. No h/o smoking. Not currently on any treatment at this time. Reduced FEV1 and DLCO. recent Pneumothorax on right Overview: --right sided chest pain that radiates to the scapula. Worse with deep breath. Scapula tender to palpation. -- CXR showedsmall right apical pneumothorax. EKG unremarkable. Cardiac enzymes negative. --Right apical pneumothorax most likely cause of her chest pain. No respiratory distress. On room air. --11/30 CXR shows pneumo no longer visible. 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 food related vs GVHD; pt cutting back on snacking today; on GVHD diet (GI soft/fiber controlled). --stool [id number] 07/05 (down from 2500ml 07/04). Some blood in stool overnight 07/05; platelets transfused. No blood noted afterward. --increased stool 1725ml 07/06. No colonoscopy; continue to hold off on ECP; 07/09-stool output decreasing; monitor documented as of this encounter (statuses as of 07/13/2022) [facility]01-25-2021 History of Past illness Narrative* Problem Noted Date Resolved Date Shortness of breath 10/14/2020 06/19/2022 Parastomal hernia 05/29/2020 06/04/2020 Last Assessment & Plan: Assessment: s/p 05/29 parastomal hernia repair with TAR PLAN: -continue postoperative care Colostomy status 09/18/2018 06/03/2022 PEPE (acute kidney injury) 09/12/20182021 Overview: Last Assessment & Plan: SCr normalized to 1.02 today, SCr 3.2 on admission at OSH. Baseline 0.8-1.0. Likely 2/2 dehydration from vomiting and hyperCa. Continue MIVF as discussed elsewhere. Last Assessment & Plan: SCr normalized to 1.02 today, SCr 3.2 on admission at OSH. Baseline 0.8-1.0. Likely 2/2 dehydration from vomiting and hyperCa. Continue MIVF as discussed elsewhere. Stage 3 chronic kidney disease 05/13/2018 0 06/03/2022 Dehydration 05/13/2018 06/03/2022 Itching 01/11/2018 02/18/2018 Insomnia 01/11/2018 09/18/2018 Abnormal echocardiogram 06/03/2017 09/02/20 17 SBO (small bowel obstruction) 01/25/2017 Abdominal pain 01/25/2017 01/25/2017 Overview: --01/24 Outside ER admit for 06/29 abd pain, decreased Colostomy output. CT 01/24/17 with new hernia in RLQ. --01/25 Pt states no abd pain/craming and pain 0/10, +stool output and tolerating liquids and solids. Plan for General Surg f/u outpatient for h/o SBO. 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 may need to increase FK and/or start low dose steroids Bronchopneumonia due to human metapneumovirus (h MPV) 01/14/2017 01/29/2017 Overview: -- presented as fever, cough, sinus NULL. -- RVP was (+) for Human metapneumovirus --CXR ? basilar atalectasis v pneumonia; --CT sinus acute sinusitis - u/a C&S neg - had persistent fevers and received 2 days of zosyn (01/16-01/17); -- zosyn was dc'd with all cultures being neg and she remained afebrile -- developed hypoxia with a positive desat study -- DC'd Home with O2 f/u 01/20/[address] Tatyana KIM (right bundle branch block) 09/24/2016 05/18/2018 Abnormality of gait 09/11/2016 01/21/2017 Secondary adrenal insufficiency 09/07/2016 04/27/2018 Type 2 diabetes mellitus wit h microalbuminuria, without long-term current use of insulin 07/02/2016 02/10/2022 Physical deconditioning 10/01/2015 09/07/20 16 Overview: Per LDT 10/30/15 fci charges Diarrhea 09/11/2015 01/21/2017 Overview: --increased watery stool output through ostomy; 01/16: c-diff neg --start imodium BID Acute pulmonary embolism 08/06/2015 016 Overview: --Patient presented with pleuritic Chest Pain, Heparin gtt initiated until PE ruled out --Negative for PE CT with PE protocol. Heparin drip was discontinued. 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 --c/o blood in urine & dysuria. 2+ Hb on UA. Check BK urine. Empiric cipro started --07/08- symptoms improving --07/09: +BK (162,000) copies: continue cipro for tx. 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 Treated w ganciclovir. Plan: - continue acyclovir - monitor tac levels Dysmetabolic syndrome X 09/07/20 16 Obesity 09/08/2017 Overview: Obesity class III Body mass index is 32.09 kg/(m^2). 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 Treated with vori, then changed to posa d/t presumed resistance. Repeat CT chest 10/12/14 improved. 12/14/14 CT clear --ppx posa PFO (patent foramen ovale) 11/06 Obstructive lung disease (generalized) 02/04/2016 Overview: --monitor. No h/o smoking. Not currently on any treatment at this time. Reduced FEV1 and DLCO. recent Pneumothorax on right Overview: --right sided chest pain that radiates to the scapula. Worse with deep breath. Scapula tender to palpation. -- CXR showedsmall right apical pneumothorax. EKG unremarkable. Cardiac enzymes negative. --Right apical pneumothorax most likely cause of her chest pain. No respiratory distress. On room air. --11/30 CXR shows pneumo no longer visible. 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 food related vs GVHD; pt cutting back on snacking today; on GVHD diet (GI soft/fiber controlled). --stool [id number] 07/05 (down from 2500ml 07/04). Some blood in stool overnight 07/05; platelets transfused. No blood noted afterward. --increased stool 1725ml 07/06. No colonoscopy; continue to hold off on ECP; 07/09-stool output decreasing; monitor documented as of this encounter (statuses as of 07/26/2022) [facility]01-25-2021 History of Past illness Narrative* Problem Noted Date Resolved Date Shortness of breath 10/14/2020 06/19/2022 Parastomal hernia 05/29/2020 06/04/2020 Last Assessment & Plan: Assessment: s/p 05/29 parastomal hernia repair with TAR PLAN: -continue postoperative care Colostomy status 09/18/2018 06/03/2022 PEPE (acute kidney injury) 09/12/20182021 Overview: Last Assessment & Plan: SCr normalized to 1.02 today, SCr 3.2 on admission at OSH. Baseline 0.8-1.0. Likely 2/2 dehydration from vomiting and hyperCa. Continue MIVF as discussed elsewhere. Last Assessment & Plan: SCr normalized to 1.02 today, SCr 3.2 on admission at OSH. Baseline 0.8-1.0. Likely 2/2 dehydration from vomiting and hyperCa. Continue MIVF as discussed elsewhere. Stage 3 chronic kidney disease 05/13/2018 0 06/03/2022 Dehydration 05/13/2018 06/03/2022 Itching 01/11/2018 02/18/2018 Insomnia 01/11/2018 09/18/2018 Abnormal echocardiogram 06/03/2017 09/02/20 17 SBO (small bowel obstruction) 01/25/2017 Abdominal pain 01/25/2017 01/25/2017 Overview: --5/7 Outside ER admit for 10/10 abd pain, decreased Colostomy output. CT 01/24/17 with new hernia in RLQ. --5/8 Pt states no abd pain/craming and pain 0/10, +stool output and tolerating liquids and solids. Plan for General Surg f/u outpatient for h/o SBO. 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 may need to increase FK and/or start low dose steroids Bronchopneumonia due to human metapneumovirus (h MPV) 01/14/2017 01/29/2017 Overview: -- presented as fever, cough, sinus NULL. -- RVP was (+) for Human metapneumovirus --CXR ? basilar atalectasis v pneumonia; --CT sinus acute sinusitis - u/a C&S neg - had persistent fevers and received 2 days of zosyn (01/16-01/17); -- zosyn was dc'd with all cultures being neg and she remained afebrile -- developed hypoxia with a positive desat study -- DC'd Home with O2 f/u 01/20/[address] Tatyana KIM (right bundle branch block) 09/24/2016 05/18/2018 Abnormality of gait 09/11/2016 01/21/2017 Secondary adrenal insufficiency 09/07/2016 04/27/2018 Type 2 diabetes mellitus wit h microalbuminuria, without long-term current use of insulin 07/02/2016 02/10/2022 Physical deconditioning 10/01/2015 09/07/20 16 Overview: Per LDT 10/30/15 fci charges Diarrhea 09/11/2015 01/21/2017 Overview: --increased watery stool output through ostomy; 01/16: c-diff neg --start imodium BID Acute pulmonary embolism 08/06/2015 016 Overview: --Patient presented with pleuritic Chest Pain, Heparin gtt initiated until PE ruled out --Negative for PE CT with PE protocol. Heparin drip was discontinued. 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 --c/o blood in urine & dysuria. 2+ Hb on UA. Check BK urine. Empiric cipro started --07/08- symptoms improving --07/09: +BK (162,000) copies: continue cipro for tx. 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 Treated w ganciclovir. Plan: - continue acyclovir - monitor tac levels Dysmetabolic syndrome X 09/07/20 16 Obesity 09/08/2017 Overview: Obesity class III Body mass index is 32.09 kg/(m^2). 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 Treated with vori, then changed to posa d/t presumed resistance. Repeat CT chest 10/12/14 improved. 12/14/14 CT clear --ppx posa PFO (patent foramen ovale) 11/06 Obstructive lung disease (generalized) 02/04/2016 Overview: --monitor. No h/o smoking. Not currently on any treatment at this time. Reduced FEV1 and DLCO. recent Pneumothorax on right Overview: --right sided chest pain that radiates to the scapula. Worse with deep breath. Scapula tender to palpation. -- CXR showedsmall right apical pneumothorax. EKG unremarkable. Cardiac enzymes negative. --Right apical pneumothorax most likely cause of her chest pain. No respiratory distress. On room air. --11/30 CXR shows pneumo no longer visible. 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 food related vs GVHD; pt cutting back on snacking today; on GVHD diet (GI soft/fiber controlled). --stool [id number] 07/05 (down from 2500ml 07/04). Some blood in stool overnight 07/05; platelets transfused. No blood noted afterward. --increased stool 1725ml 07/06. No colonoscopy; continue to hold off on ECP; 07/09-stool output decreasing; monitor documented as of this encounter (statuses as of 07/27/2022) [facility]01-25-2021 History of Past illness Narrative* Problem Noted Date Resolved Date Shortness of breath 10/14/2020 06/19/2022 Parastomal hernia 05/29/2020 06/04/2020 Last Assessment & Plan: Assessment: s/p 05/29 parastomal hernia repair with TAR PLAN: -continue postoperative care Colostomy status 09/18/2018 06/03/2022 PEPE (acute kidney injury) 09/12/20182021 Overview: Last Assessment & Plan: SCr normalized to 1.02 today, SCr 3.2 on admission at OSH. Baseline 0.8-1.0. Likely 2/2 dehydration from vomiting and hyperCa. Continue MIVF as discussed elsewhere. Last Assessment & Plan: SCr normalized to 1.02 today, SCr 3.2 on admission at OSH. Baseline 0.8-1.0. Likely 2/2 dehydration from vomiting and hyperCa. Continue MIVF as discussed elsewhere. Stage 3 chronic kidney disease 05/13/2018 0 06/03/2022 Dehydration 05/13/2018 06/03/2022 Itching 01/11/2018 02/18/2018 Insomnia 01/11/2018 09/18/2018 Abnormal echocardiogram 06/03/2017 09/02/20 17 SBO (small bowel obstruction) 01/25/2017 Abdominal pain 01/25/2017 01/25/2017 Overview: --01/24 Outside ER admit for 10 abd pain, decreased Colostomy output. CT 01/24/17 with new hernia in RLQ. --5/8 Pt states no abd pain/craming and pain 0/10, +stool output and tolerating liquids and solids. Plan for General Surg f/u outpatient for h/o SBO. 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 may need to increase FK and/or start low dose steroids Bronchopneumonia due to human metapneumovirus (h MPV) 01/14/2017 01/29/2017 Overview: -- presented as fever, cough, sinus NULL. -- RVP was (+) for Human metapneumovirus --CXR ? basilar atalectasis v pneumonia; --CT sinus acute sinusitis - u/a C&S neg - had persistent fevers and received 2 days of zosyn (01/16-01/17); -- zosyn was dc'd with all cultures being neg and she remained afebrile -- developed hypoxia with a positive desat study -- DC'd Home with O2 f/u 01/20/[address] Tatyana THORNTONBB (right bundle branch block) 09/24/2016 05/18/2018 Abnormality of gait 09/11/2016 01/21/2017 Secondary adrenal insufficiency 09/07/2016 04/27/2018 Type 2 diabetes mellitus wit h microalbuminuria, without long-term current use of insulin 07/02/2016 02/10/2022 Physical deconditioning 10/01/2015 09/07/20 16 Overview: Per LDT 10/30/15 fci charges Diarrhea 09/11/2015 01/21/2017 Overview: --increased watery stool output through ostomy; 01/16: c-diff neg --start imodium BID Acute pulmonary embolism 08/06/2015 016 Overview: --Patient presented with pleuritic Chest Pain, Heparin gtt initiated until PE ruled out --Negative for PE CT with PE protocol. Heparin drip was discontinued. 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 --c/o blood in urine & dysuria. 2+ Hb on UA. Check BK urine. Empiric cipro started --07/08- symptoms improving --07/09: +BK (162,000) copies: continue cipro for tx. 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 Treated w ganciclovir. Plan: - continue acyclovir - monitor tac levels Dysmetabolic syndrome X 09/07/20 16 Obesity 09/08/2017 Overview: Obesity class III Body mass index is 32.09 kg/(m^2). 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 Treated with vori, then changed to posa d/t presumed resistance. Repeat CT chest 10/12/14 improved. 12/14/14 CT clear --ppx posa PFO (patent foramen ovale) 11/06 Obstructive lung disease (generalized) 02/04/2016 Overview: --monitor. No h/o smoking. Not currently on any treatment at this time. Reduced FEV1 and DLCO. recent Pneumothorax on right Overview: --right sided chest pain that radiates to the scapula. Worse with deep breath. Scapula tender to palpation. -- CXR showedsmall right apical pneumothorax. EKG unremarkable. Cardiac enzymes negative. --Right apical pneumothorax most likely cause of her chest pain. No respiratory distress. On room air. --11/30 CXR shows pneumo no longer visible. 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 food related vs GVHD; pt cutting back on snacking today; on GVHD diet (GI soft/fiber controlled). --stool [id number] 07/05 (down from 2500ml 07/04). Some blood in stool overnight 07/05; platelets transfused. No blood noted afterward. --increased stool 1725ml 07/06. No colonoscopy; continue to hold off on ECP; 07/09-stool output decreasing; monitor documented as of this encounter (statuses as of 07/27/2022) [facility]01-25-2021 History of Past illness Narrative* Problem Noted Date Resolved Date Shortness of breath 10/14/2020 06/19/2022 Parastomal hernia 05/29/2020 06/04/2020 Last Assessment & Plan: Assessment: s/p 05/29 parastomal hernia repair with TAR PLAN: -continue postoperative care Colostomy status 09/18/2018 06/03/2022 PEPE (acute kidney injury) 09/12/20182021 Overview: Last Assessment & Plan: SCr normalized to 1.02 today, SCr 3.2 on admission at OSH. Baseline 0.8-1.0. Likely 2/2 dehydration from vomiting and hyperCa. Continue MIVF as discussed elsewhere. Last Assessment & Plan: SCr normalized to 1.02 today, SCr 3.2 on admission at OSH. Baseline 0.8-1.0. Likely 2/2 dehydration from vomiting and hyperCa. Continue MIVF as discussed elsewhere. Stage 3 chronic kidney disease 05/13/2018 0 06/03/2022 Dehydration 05/13/2018 06/03/2022 Itching 01/11/2018 02/18/2018 Insomnia 01/11/2018 09/18/2018 Abnormal echocardiogram 06/03/2017 09/02/20 17 SBO (small bowel obstruction) 01/25/2017 Abdominal pain 01/25/2017 01/25/2017 Overview: --01/24 Outside ER admit for 06/29 abd pain, decreased Colostomy output. CT 01/24/17 with new hernia in RLQ. --01/25 Pt states no abd pain/craming and pain 0/10, +stool output and tolerating liquids and solids. Plan for General Surg f/u outpatient for h/o SBO. 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 may need to increase FK and/or start low dose steroids Bronchopneumonia due to human metapneumovirus (h MPV) 01/14/2017 01/29/2017 Overview: -- presented as fever, cough, sinus NULL. -- RVP was (+) for Human metapneumovirus --CXR ? basilar atalectasis v pneumonia; --CT sinus acute sinusitis - u/a C&S neg - had persistent fevers and received 2 days of zosyn (01/16-01/17); -- zosyn was dc'd with all cultures being neg and she remained afebrile -- developed hypoxia with a positive desat study -- DC'd Home with O2 f/u 01/20/[address] Tatyana THORNTONBB (right bundle branch block) 09/24/2016 05/18/2018 Abnormality of gait 09/11/2016 01/21/2017 Secondary adrenal insufficiency 09/07/2016 04/27/2018 Type 2 diabetes mellitus wit h microalbuminuria, without long-term current use of insulin 07/02/2016 02/10/2022 Physical deconditioning 10/01/2015 09/07/20 16 Overview: Per LDT 10/30/15 fci charges Diarrhea 09/11/2015 01/21/2017 Overview: --increased watery stool output through ostomy; 01/16: c-diff neg --start imodium BID Acute pulmonary embolism 08/06/2015 016 Overview: --Patient presented with pleuritic Chest Pain, Heparin gtt initiated until PE ruled out --Negative for PE CT with PE protocol. Heparin drip was discontinued. 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 --c/o blood in urine & dysuria. 2+ Hb on UA. Check BK urine. Empiric cipro started --07/08- symptoms improving --07/09: +BK (162,000) copies: continue cipro for tx. S/P partial colectomy 06/20/2015 05/05/2017 Overview: --06/20/2015- ex lap, subtotal colectomy, and end ileostomy -- had some watery stoma output formed up on imodium -- home with prn imodium Cytomegalovirus (CMV) viremia 04/30/2015 Overview: H/o CMV viremia, last checked 2/15/16, 142 copies. 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 Treated w ganciclovir. Plan: - continue acyclovir - monitor tac levels Dysmetabolic syndrome X 09/07/20 16 Obesity 09/08/2017 Overview: Obesity class III Body mass index is 32.09 kg/(m^2). 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 Treated with vori, then changed to posa d/t presumed resistance. Repeat CT chest 10/12/14 improved. 12/14/14 CT clear --ppx posa PFO (patent foramen ovale) 11/06 Obstructive lung disease (generalized) 02/04/2016 Overview: --monitor. No h/o smoking. Not currently on any treatment at this time. Reduced FEV1 and DLCO. recent Pneumothorax on right Overview: --right sided chest pain that radiates to the scapula. Worse with deep breath. Scapula tender to palpation. -- CXR showedsmall right apical pneumothorax. EKG unremarkable. Cardiac enzymes negative. --Right apical pneumothorax most likely cause of her chest pain. No respiratory distress. On room air. --11/30 CXR shows pneumo no longer visible. 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 food related vs GVHD; pt cutting back on snacking today; on GVHD diet (GI soft/fiber controlled). --stool [id number] 07/05 (down from 2500ml 07/04). Some blood in stool overnight 07/05; platelets transfused. No blood noted afterward. --increased stool 1725ml 07/06. No colonoscopy; continue to hold off on ECP; 07/09-stool output decreasing; monitor documented as of this encounter (statuses as of 08/07/2022) [facility]01-25-2021 History of Past illness Narrative* Problem Noted Date Resolved Date Shortness of breath 10/14/2020 06/19/2022 Parastomal hernia 05/29/2020 06/04/2020 Last Assessment & Plan: Assessment: s/p 05/29 parastomal hernia repair with TAR PLAN: -continue postoperative care Colostomy status 09/18/2018 06/03/2022 PEPE (acute kidney injury) 09/12/20182021 Overview: Last Assessment & Plan: SCr normalized to 1.02 today, SCr 3.2 on admission at OSH. Baseline 0.8-1.0. Likely 2/2 dehydration from vomiting and hyperCa. Continue MIVF as discussed elsewhere. Last Assessment & Plan: SCr normalized to 1.02 today, SCr 3.2 on admission at OSH. Baseline 0.8-1.0. Likely 2/2 dehydration from vomiting and hyperCa. Continue MIVF as discussed elsewhere. Stage 3 chronic kidney disease 05/13/2018 0 06/03/2022 Dehydration 05/13/2018 06/03/2022 Itching 01/11/2018 02/18/2018 Insomnia 01/11/2018 09/18/2018 Abnormal echocardiogram 06/03/2017 09/02/20 17 SBO (small bowel obstruction) 01/25/2017 Abdominal pain 01/25/2017 01/25/2017 Overview: --01/24 Outside ER admit for 10/10 abd pain, decreased Colostomy output. CT 01/24/17 with new hernia in RLQ. --58 Pt states no abd pain/craming and pain 0/10, +stool output and tolerating liquids and solids. Plan for General Surg f/u outpatient for h/o SBO. 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 may need to increase FK and/or start low dose steroids Bronchopneumonia due to human metapneumovirus (h MPV) 01/14/2017 01/29/2017 Overview: -- presented as fever, cough, sinus NULL. -- RVP was (+) for Human metapneumovirus --CXR ? basilar atalectasis v pneumonia; --CT sinus acute sinusitis - u/a C&S neg - had persistent fevers and received 2 days of zosyn (01/16-01/17); -- zosyn was dc'd with all cultures being neg and she remained afebrile -- developed hypoxia with a positive desat study -- DC'd Home with O2 f/u 01/20/[address] Tatyana KIM (right bundle branch block) 09/24/2016 05/18/2018 Abnormality of gait 09/11/2016 01/21/2017 Secondary adrenal insufficiency 09/07/2016 04/27/2018 Type 2 diabetes mellitus wit h microalbuminuria, without long-term current use of insulin 07/02/2016 02/10/2022 Physical deconditioning 10/01/2015 09/07/20 16 Overview: Per LDT 10/30/15 fci charges Diarrhea 09/11/2015 01/21/2017 Overview: --increased watery stool output through ostomy; 01/16: c-diff neg --start imodium BID Acute pulmonary embolism 08/06/2015 016 Overview: --Patient presented with pleuritic Chest Pain, Heparin gtt initiated until PE ruled out --Negative for PE CT with PE protocol. Heparin drip was discontinued. 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 --c/o blood in urine & dysuria. 2+ Hb on UA. Check BK urine. Empiric cipro started --07/08- symptoms improving --07/09: +BK (162,000) copies: continue cipro for tx. 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 Treated w ganciclovir. Plan: - continue acyclovir - monitor tac levels Dysmetabolic syndrome X 09/07/20 16 Obesity 09/08/2017 Overview: Obesity class III Body mass index is 32.09 kg/(m^2). 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 Treated with vori, then changed to posa d/t presumed resistance. Repeat CT chest 10/12/14 improved. 12/14/14 CT clear --ppx posa PFO (patent foramen ovale) 11/06 Obstructive lung disease (generalized) 02/04/2016 Overview: --monitor. No h/o smoking. Not currently on any treatment at this time. Reduced FEV1 and DLCO. recent Pneumothorax on right Overview: --right sided chest pain that radiates to the scapula. Worse with deep breath. Scapula tender to palpation. -- CXR showedsmall right apical pneumothorax. EKG unremarkable. Cardiac enzymes negative. --Right apical pneumothorax most likely cause of her chest pain. No respiratory distress. On room air. --11/30 CXR shows pneumo no longer visible. 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 food related vs GVHD; pt cutting back on snacking today; on GVHD diet (GI soft/fiber controlled). --stool [id number] 07/05 (down from 2500ml 07/04). Some blood in stool overnight 07/05; platelets transfused. No blood noted afterward. --increased stool 1725ml 07/06. No colonoscopy; continue to hold off on ECP; 07/09-stool output decreasing; monitor documented as of this encounter (statuses as of 08/17/2022) [facility]01-25-2021 History of Past illness Narrative* Problem Noted Date Resolved Date Shortness of breath 10/14/2020 06/19/2022 Parastomal hernia 05/29/2020 06/04/2020 Last Assessment & Plan: Assessment: s/p 05/29 parastomal hernia repair with TAR PLAN: -continue postoperative care Colostomy status 09/18/2018 06/03/2022 PEPE (acute kidney injury) 09/12/20182021 Overview: Last Assessment & Plan: SCr normalized to 1.02 today, SCr 3.2 on admission at OSH. Baseline 0.8-1.0. Likely 2/2 dehydration from vomiting and hyperCa. Continue MIVF as discussed elsewhere. Last Assessment & Plan: SCr normalized to 1.02 today, SCr 3.2 on admission at OSH. Baseline 0.8-1.0. Likely 2/2 dehydration from vomiting and hyperCa. Continue MIVF as discussed elsewhere. Stage 3 chronic kidney disease 05/13/2018 0 06/03/2022 Dehydration 05/13/2018 06/03/2022 Itching 01/11/2018 02/18/2018 Insomnia 01/11/2018 09/18/2018 Abnormal echocardiogram 06/03/2017 09/02/20 17 SBO (small bowel obstruction) 01/25/2017 Abdominal pain 01/25/2017 01/25/2017 Overview: --01/24 Outside ER admit for 06/29 abd pain, decreased Colostomy output. CT 01/24/17 with new hernia in RLQ. --58 Pt states no abd pain/craming and pain 0/10, +stool output and tolerating liquids and solids. Plan for General Surg f/u outpatient for h/o SBO. 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 may need to increase FK and/or start low dose steroids Bronchopneumonia due to human metapneumovirus (h MPV) 01/14/2017 01/29/2017 Overview: -- presented as fever, cough, sinus NULL. -- RVP was (+) for Human metapneumovirus --CXR ? basilar atalectasis v pneumonia; --CT sinus acute sinusitis - u/a C&S neg - had persistent fevers and received 2 days of zosyn (01/16-01/17); -- zosyn was dc'd with all cultures being neg and she remained afebrile -- developed hypoxia with a positive desat study -- DC'd Home with O2 f/u 01/20/[address] Tatyana KIM (right bundle branch block) 09/24/2016 05/18/2018 Abnormality of gait 09/11/2016 01/21/2017 Secondary adrenal insufficiency 09/07/2016 04/27/2018 Type 2 diabetes mellitus wit h microalbuminuria, without long-term current use of insulin 07/02/2016 02/10/2022 Physical deconditioning 10/01/2015 09/07/20 16 Overview: Per LDT 10/30/15 fci charges Diarrhea 09/11/2015 01/21/2017 Overview: --increased watery stool output through ostomy; 01/16: c-diff neg --start imodium BID Acute pulmonary embolism 08/06/2015 016 Overview: --Patient presented with pleuritic Chest Pain, Heparin gtt initiated until PE ruled out --Negative for PE CT with PE protocol. Heparin drip was discontinued. 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 --c/o blood in urine & dysuria. 2+ Hb on UA. Check BK urine. Empiric cipro started --07/08- symptoms improving --07/09: +BK (162,000) copies: continue cipro for tx. 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 Treated w ganciclovir. Plan: - continue acyclovir - monitor tac levels Dysmetabolic syndrome X 09/07/20 16 Obesity 09/08/2017 Overview: Obesity class III Body mass index is 32.09 kg/(m^2). 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 Treated with vori, then changed to posa d/t presumed resistance. Repeat CT chest 10/12/14 improved. 12/14/14 CT clear --ppx posa PFO (patent foramen ovale) 11/06 Obstructive lung disease (generalized) 02/04/2016 Overview: --monitor. No h/o smoking. Not currently on any treatment at this time. Reduced FEV1 and DLCO. recent Pneumothorax on right Overview: --right sided chest pain that radiates to the scapula. Worse with deep breath. Scapula tender to palpation. -- CXR showedsmall right apical pneumothorax. EKG unremarkable. Cardiac enzymes negative. --Right apical pneumothorax most likely cause of her chest pain. No respiratory distress. On room air. --11/30 CXR shows pneumo no longer visible. 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 food related vs GVHD; pt cutting back on snacking today; on GVHD diet (GI soft/fiber controlled). --stool [id number] 07/05 (down from 2500ml 07/04). Some blood in stool overnight 07/05; platelets transfused. No blood noted afterward. --increased stool 1725ml 07/06. No colonoscopy; continue to hold off on ECP; 07/09-stool output decreasing; monitor documented as of this encounter (statuses as of 08/20/2022) [facility]01-25-2021 History of Past illness Narrative* Problem Noted Date Resolved Date Shortness of breath 10/14/2020 06/19/2022 Parastomal hernia 05/29/2020 06/04/2020 Last Assessment & Plan: Assessment: s/p 05/29 parastomal hernia repair with TAR PLAN: -continue postoperative care Colostomy status 09/18/2018 06/03/2022 PEPE (acute kidney injury) 09/12/20182021 Overview: Last Assessment & Plan: SCr normalized to 1.02 today, SCr 3.2 on admission at OSH. Baseline 0.8-1.0. Likely 2/2 dehydration from vomiting and hyperCa. Continue MIVF as discussed elsewhere. Last Assessment & Plan: SCr normalized to 1.02 today, SCr 3.2 on admission at OSH. Baseline 0.8-1.0. Likely 2/2 dehydration from vomiting and hyperCa. Continue MIVF as discussed elsewhere. Stage 3 chronic kidney disease 05/13/2018 0 06/03/2022 Dehydration 05/13/2018 06/03/2022 Itching 01/11/2018 02/18/2018 Insomnia 01/11/2018 09/18/2018 Abnormal echocardiogram 06/03/2017 09/02/20 17 SBO (small bowel obstruction) 01/25/2017 Abdominal pain 01/25/2017 01/25/2017 Overview: --01/24 Outside ER admit for 06/29 abd pain, decreased Colostomy output. CT 01/24/17 with new hernia in RLQ. --01/25 Pt states no abd pain/craming and pain 0/10, +stool output and tolerating liquids and solids. Plan for General Surg f/u outpatient for h/o SBO. 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 may need to increase FK and/or start low dose steroids Bronchopneumonia due to human metapneumovirus (h MPV) 01/14/2017 01/29/2017 Overview: -- presented as fever, cough, sinus NULL. -- RVP was (+) for Human metapneumovirus --CXR ? basilar atalectasis v pneumonia; --CT sinus acute sinusitis - u/a C&S neg - had persistent fevers and received 2 days of zosyn (01/16-01/17); -- zosyn was dc'd with all cultures being neg and she remained afebrile -- developed hypoxia with a positive desat study -- DC'd Home with O2 f/u 01/20/[address] Joe RBBB (right bundle branch block) 09/24/2016 05/18/2018 Abnormality of gait 09/11/2016 01/21/2017 Secondary adrenal insufficiency 09/07/2016 04/27/2018 Type 2 diabetes mellitus wit h microalbuminuria, without long-term current use of insulin 07/02/2016 02/10/2022 Physical deconditioning 10/01/2015 09/07/20 16 Overview: Per LDT 10/30/15 fci charges Diarrhea 09/11/2015 01/21/2017 Overview: --increased watery stool output through ostomy; 01/16: c-diff neg --start imodium BID Acute pulmonary embolism 08/06/2015 016 Overview: --Patient presented with pleuritic Chest Pain, Heparin gtt initiated until PE ruled out --Negative for PE CT with PE protocol. Heparin drip was discontinued. 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 --c/o blood in urine & dysuria. 2+ Hb on UA. Check BK urine. Empiric cipro started --07/08- symptoms improving --07/09: +BK (162,000) copies: continue cipro for tx. 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 Treated w ganciclovir. Plan: - continue acyclovir - monitor tac levels Dysmetabolic syndrome X 09/07/20 16 Obesity 09/08/2017 Overview: Obesity class III Body mass index is 32.09 kg/(m^2). 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 Treated with vori, then changed to posa d/t presumed resistance. Repeat CT chest 10/12/14 improved. 12/14/14 CT clear --ppx posa PFO (patent foramen ovale) 11/06 Obstructive lung disease (generalized) 02/04/2016 Overview: --monitor. No h/o smoking. Not currently on any treatment at this time. Reduced FEV1 and DLCO. recent Pneumothorax on right Overview: --right sided chest pain that radiates to the scapula. Worse with deep breath. Scapula tender to palpation. -- CXR showedsmall right apical pneumothorax. EKG unremarkable. Cardiac enzymes negative. --Right apical pneumothorax most likely cause of her chest pain. No respiratory distress. On room air. --11/30 CXR shows pneumo no longer visible. 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 food related vs GVHD; pt cutting back on snacking today; on GVHD diet (GI soft/fiber controlled). --stool [id number] 07/05 (down from 2500ml 07/04). Some blood in stool overnight 07/05; platelets transfused. No blood noted afterward. --increased stool 1725ml 07/06. No colonoscopy; continue to hold off on ECP; 07/09-stool output decreasing; monitor documented as of this encounter (statuses as of 08/21/2022) [facility]01-25-2021 History of Past illness Narrative* Problem Noted Date Resolved Date Shortness of breath 10/14/2020 06/19/2022 Parastomal hernia 05/29/2020 06/04/2020 Last Assessment & Plan: Assessment: s/p 05/29 parastomal hernia repair with TAR PLAN: -continue postoperative care Colostomy status 09/18/2018 06/03/2022 PEPE (acute kidney injury) 09/12/20182021 Overview: Last Assessment & Plan: SCr normalized to 1.02 today, SCr 3.2 on admission at OSH. Baseline 0.8-1.0. Likely 2/2 dehydration from vomiting and hyperCa. Continue MIVF as discussed elsewhere. Last Assessment & Plan: SCr normalized to 1.02 today, SCr 3.2 on admission at OSH. Baseline 0.8-1.0. Likely 2/2 dehydration from vomiting and hyperCa. Continue MIVF as discussed elsewhere. Stage 3 chronic kidney disease 05/13/2018 0 06/03/2022 Dehydration 05/13/2018 06/03/2022 Itching 01/11/2018 02/18/2018 Insomnia 01/11/2018 09/18/2018 Abnormal echocardiogram 06/03/2017 09/02/20 17 SBO (small bowel obstruction) 01/25/2017 Abdominal pain 01/25/2017 01/25/2017 Overview: --5/7 Outside ER admit for 10/10 abd pain, decreased Colostomy output. CT 01/24/17 with new hernia in RLQ. --5/8 Pt states no abd pain/craming and pain 0/10, +stool output and tolerating liquids and solids. Plan for General Surg f/u outpatient for h/o SBO. 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 may need to increase FK and/or start low dose steroids Bronchopneumonia due to human metapneumovirus (h MPV) 01/14/2017 01/29/2017 Overview: -- presented as fever, cough, sinus NULL. -- RVP was (+) for Human metapneumovirus --CXR ? basilar atalectasis v pneumonia; --CT sinus acute sinusitis - u/a C&S neg - had persistent fevers and received 2 days of zosyn (01/16-01/17); -- zosyn was dc'd with all cultures being neg and she remained afebrile -- developed hypoxia with a positive desat study -- DC'd Home with O2 f/u 01/20/[address] Tatyana KIM (right bundle branch block) 09/24/2016 05/18/2018 Abnormality of gait 09/11/2016 01/21/2017 Secondary adrenal insufficiency 09/07/2016 04/27/2018 Type 2 diabetes mellitus wit h microalbuminuria, without long-term current use of insulin 07/02/2016 02/10/2022 Physical deconditioning 10/01/2015 09/07/20 16 Overview: Per LDT 10/30/15 fci charges Diarrhea 09/11/2015 01/21/2017 Overview: --increased watery stool output through ostomy; 01/16: c-diff neg --start imodium BID Acute pulmonary embolism 08/06/2015 016 Overview: --Patient presented with pleuritic Chest Pain, Heparin gtt initiated until PE ruled out --Negative for PE CT with PE protocol. Heparin drip was discontinued. 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 --c/o blood in urine & dysuria. 2+ Hb on UA. Check BK urine. Empiric cipro started --07/08- symptoms improving --07/09: +BK (162,000) copies: continue cipro for tx. 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 Treated w ganciclovir. Plan: - continue acyclovir - monitor tac levels Dysmetabolic syndrome X 09/07/20 16 Obesity 09/08/2017 Overview: Obesity class III Body mass index is 32.09 kg/(m^2). 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 Treated with vori, then changed to posa d/t presumed resistance. Repeat CT chest 10/12/14 improved. 12/14/14 CT clear --ppx posa PFO (patent foramen ovale) 11/06 Obstructive lung disease (generalized) 02/04/2016 Overview: --monitor. No h/o smoking. Not currently on any treatment at this time. Reduced FEV1 and DLCO. recent Pneumothorax on right Overview: --right sided chest pain that radiates to the scapula. Worse with deep breath. Scapula tender to palpation. -- CXR showedsmall right apical pneumothorax. EKG unremarkable. Cardiac enzymes negative. --Right apical pneumothorax most likely cause of her chest pain. No respiratory distress. On room air. --11/30 CXR shows pneumo no longer visible. 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 food related vs GVHD; pt cutting back on snacking today; on GVHD diet (GI soft/fiber controlled). --stool [id number] 07/05 (down from 2500ml 07/04). Some blood in stool overnight 07/05; platelets transfused. No blood noted afterward. --increased stool 1725ml 07/06. No colonoscopy; continue to hold off on ECP; 07/09-stool output decreasing; monitor documented as of this encounter (statuses as of 08/25/2022) [facility]01-25-2021 History of Past illness Narrative* Problem Noted Date Resolved Date Shortness of breath 10/14/2020 06/19/2022 Parastomal hernia 05/29/2020 06/04/2020 Last Assessment & Plan: Assessment: s/p 9/9 parastomal hernia repair with TAR PLAN: -continue postoperative care Colostomy status 09/18/2018 06/03/2022 PEPE (acute kidney injury) 09/12/20182021 Overview: Last Assessment & Plan: SCr normalized to 1.02 today, SCr 3.2 on admission at OSH. Baseline 0.8-1.0. Likely 2/2 dehydration from vomiting and hyperCa. Continue MIVF as discussed elsewhere. Last Assessment & Plan: SCr normalized to 1.02 today, SCr 3.2 on admission at OSH. Baseline 0.8-1.0. Likely 2/2 dehydration from vomiting and hyperCa. Continue MIVF as discussed elsewhere. Stage 3 chronic kidney disease 05/13/2018 0 06/03/2022 Dehydration 05/13/2018 06/03/2022 Itching 01/11/2018 02/18/2018 Insomnia 01/11/2018 09/18/2018 Abnormal echocardiogram 06/03/2017 09/02/20 17 SBO (small bowel obstruction) 01/25/2017 Abdominal pain 01/25/2017 01/25/2017 Overview: --01/24 Outside ER admit for 06/29 abd pain, decreased Colostomy output. CT 01/24/17 with new hernia in RLQ. --5/8 Pt states no abd pain/craming and pain 0/10, +stool output and tolerating liquids and solids. Plan for General Surg f/u outpatient for h/o SBO. 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 may need to increase FK and/or start low dose steroids Bronchopneumonia due to human metapneumovirus (h MPV) 01/14/2017 01/29/2017 Overview: -- presented as fever, cough, sinus NULL. -- RVP was (+) for Human metapneumovirus --CXR ? basilar atalectasis v pneumonia; --CT sinus acute sinusitis - u/a C&S neg - had persistent fevers and received 2 days of zosyn (01/16-01/17); -- zosyn was dc'd with all cultures being neg and she remained afebrile -- developed hypoxia with a positive desat study -- DC'd Home with O2 f/u 01/20/[address] Tatyana KIM (right bundle branch block) 09/24/2016 05/18/2018 Abnormality of gait 09/11/2016 01/21/2017 Secondary adrenal insufficiency 09/07/2016 04/27/2018 Type 2 diabetes mellitus wit h microalbuminuria, without long-term current use of insulin 07/02/2016 02/10/2022 Physical deconditioning 10/01/2015 09/07/20 16 Overview: Per LDT 10/30/15 fci charges Diarrhea 09/11/2015 01/21/2017 Overview: --increased watery stool output through ostomy; 01/16: c-diff neg --start imodium BID Acute pulmonary embolism 08/06/2015 016 Overview: --Patient presented with pleuritic Chest Pain, Heparin gtt initiated until PE ruled out --Negative for PE CT with PE protocol. Heparin drip was discontinued. 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 --c/o blood in urine & dysuria. 2+ Hb on UA. Check BK urine. Empiric cipro started --07/08- symptoms improving --07/09: +BK (162,000) copies: continue cipro for tx. 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 Treated w ganciclovir. Plan: - continue acyclovir - monitor tac levels Dysmetabolic syndrome X 09/07/20 16 Obesity 09/08/2017 Overview: Obesity class III Body mass index is 32.09 kg/(m^2). 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 Treated with vori, then changed to posa d/t presumed resistance. Repeat CT chest 10/12/14 improved. 12/14/14 CT clear --ppx posa PFO (patent foramen ovale) 11/06 Obstructive lung disease (generalized) 02/04/2016 Overview: --monitor. No h/o smoking. Not currently on any treatment at this time. Reduced FEV1 and DLCO. recent Pneumothorax on right Overview: --right sided chest pain that radiates to the scapula. Worse with deep breath. Scapula tender to palpation. -- CXR showedsmall right apical pneumothorax. EKG unremarkable. Cardiac enzymes negative. --Right apical pneumothorax most likely cause of her chest pain. No respiratory distress. On room air. --3/13 CXR shows pneumo no longer visible. 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 food related vs GVHD; pt cutting back on snacking today; on GVHD diet (GI soft/fiber controlled). --stool [id number] 07/05 (down from 2500ml 07/04). Some blood in stool overnight 07/05; platelets transfused. No blood noted afterward. --increased stool 1725ml 07/06. No colonoscopy; continue to hold off on ECP; 07/09-stool output decreasing; monitor documented as of this encounter (statuses as of 08/25/2022) [facility]01-25-2021 History of Past illness Narrative* Problem Noted Date Resolved Date Shortness of breath 10/14/2020 06/19/2022 Parastomal hernia 05/29/2020 06/04/2020 Last Assessment & Plan: Assessment: s/p 05/29 parastomal hernia repair with TAR PLAN: -continue postoperative care Colostomy status 09/18/2018 06/03/2022 PEPE (acute kidney injury) 09/12/20182021 Overview: Last Assessment & Plan: SCr normalized to 1.02 today, SCr 3.2 on admission at OSH. Baseline 0.8-1.0. Likely 2/2 dehydration from vomiting and hyperCa. Continue MIVF as discussed elsewhere. Last Assessment & Plan: SCr normalized to 1.02 today, SCr 3.2 on admission at OSH. Baseline 0.8-1.0. Likely 2/2 dehydration from vomiting and hyperCa. Continue MIVF as discussed elsewhere. Stage 3 chronic kidney disease 05/13/2018 0 06/03/2022 Dehydration 05/13/2018 06/03/2022 Itching 01/11/2018 02/18/2018 Insomnia 01/11/2018 09/18/2018 Abnormal echocardiogram 06/03/2017 09/02/20 17 SBO (small bowel obstruction) 01/25/2017 Abdominal pain 01/25/2017 01/25/2017 Overview: --01/24 Outside ER admit for 06/29 abd pain, decreased Colostomy output. CT 01/24/17 with new hernia in RLQ. --01/25 Pt states no abd pain/craming and pain 0/10, +stool output and tolerating liquids and solids. Plan for General Surg f/u outpatient for h/o SBO. 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 may need to increase FK and/or start low dose steroids Bronchopneumonia due to human metapneumovirus (h MPV) 01/14/2017 01/29/2017 Overview: -- presented as fever, cough, sinus NULL. -- RVP was (+) for Human metapneumovirus --CXR ? basilar atalectasis v pneumonia; --CT sinus acute sinusitis - u/a C&S neg - had persistent fevers and received 2 days of zosyn (01/16-01/17); -- zosyn was dc'd with all cultures being neg and she remained afebrile -- developed hypoxia with a positive desat study -- DC'd Home with O2 f/u 01/20/[address] Tatyana THORNTONBB (right bundle branch block) 09/24/2016 05/18/2018 Abnormality of gait 09/11/2016 01/21/2017 Secondary adrenal insufficiency 09/07/2016 04/27/2018 Type 2 diabetes mellitus wit h microalbuminuria, without long-term current use of insulin 07/02/2016 02/10/2022 Physical deconditioning 10/01/2015 09/07/20 16 Overview: Per LDT 10/30/15 fci charges Diarrhea 09/11/2015 01/21/2017 Overview: --increased watery stool output through ostomy; 01/16: c-diff neg --start imodium BID Acute pulmonary embolism 08/06/2015 016 Overview: --Patient presented with pleuritic Chest Pain, Heparin gtt initiated until PE ruled out --Negative for PE CT with PE protocol. Heparin drip was discontinued. 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 --c/o blood in urine & dysuria. 2+ Hb on UA. Check BK urine. Empiric cipro started --07/08- symptoms improving --07/09: +BK (162,000) copies: continue cipro for tx. 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 Treated w ganciclovir. Plan: - continue acyclovir - monitor tac levels Dysmetabolic syndrome X 09/07/20 16 Obesity 09/08/2017 Overview: Obesity class III Body mass index is 32.09 kg/(m^2). 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 Treated with vori, then changed to posa d/t presumed resistance. Repeat CT chest 10/12/14 improved. 12/14/14 CT clear --ppx posa PFO (patent foramen ovale) 11/06 Obstructive lung disease (generalized) 02/04/2016 Overview: --monitor. No h/o smoking. Not currently on any treatment at this time. Reduced FEV1 and DLCO. recent Pneumothorax on right Overview: --right sided chest pain that radiates to the scapula. Worse with deep breath. Scapula tender to palpation. -- CXR showedsmall right apical pneumothorax. EKG unremarkable. Cardiac enzymes negative. --Right apical pneumothorax most likely cause of her chest pain. No respiratory distress. On room air. --11/30 CXR shows pneumo no longer visible. 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 food related vs GVHD; pt cutting back on snacking today; on GVHD diet (GI soft/fiber controlled). --stool [id number] 07/05 (down from 2500ml 07/04). Some blood in stool overnight 07/05; platelets transfused. No blood noted afterward. --increased stool 1725ml 07/06. No colonoscopy; continue to hold off on ECP; 07/09-stool output decreasing; monitor documented as of this encounter (statuses as of 09/08/2022) [facility]01-25-2021 History of Past illness Narrative* Problem Noted Date Resolved Date Shortness of breath 10/14/2020 06/19/2022 Parastomal hernia 05/29/2020 06/04/2020 Last Assessment & Plan: Assessment: s/p 05/29 parastomal hernia repair with TAR PLAN: -continue postoperative care Colostomy status 09/18/2018 06/03/2022 PEPE (acute kidney injury) 09/12/20182021 Overview: Last Assessment & Plan: SCr normalized to 1.02 today, SCr 3.2 on admission at OSH. Baseline 0.8-1.0. Likely 2/2 dehydration from vomiting and hyperCa. Continue MIVF as discussed elsewhere. Last Assessment & Plan: SCr normalized to 1.02 today, SCr 3.2 on admission at OSH. Baseline 0.8-1.0. Likely 2/2 dehydration from vomiting and hyperCa. Continue MIVF as discussed elsewhere. Stage 3 chronic kidney disease 05/13/2018 0 06/03/2022 Dehydration 05/13/2018 06/03/2022 Itching 01/11/2018 02/18/2018 Insomnia 01/11/2018 09/18/2018 Abnormal echocardiogram 06/03/2017 09/02/20 17 SBO (small bowel obstruction) 01/25/2017 Abdominal pain 01/25/2017 01/25/2017 Overview: --01/24 Outside ER admit for 10/10 abd pain, decreased Colostomy output. CT 01/24/17 with new hernia in RLQ. --58 Pt states no abd pain/craming and pain 0/10, +stool output and tolerating liquids and solids. Plan for General Surg f/u outpatient for h/o SBO. 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 may need to increase FK and/or start low dose steroids Bronchopneumonia due to human metapneumovirus (h MPV) 01/14/2017 01/29/2017 Overview: -- presented as fever, cough, sinus NULL. -- RVP was (+) for Human metapneumovirus --CXR ? basilar atalectasis v pneumonia; --CT sinus acute sinusitis - u/a C&S neg - had persistent fevers and received 2 days of zosyn (01/16-01/17); -- zosyn was dc'd with all cultures being neg and she remained afebrile -- developed hypoxia with a positive desat study -- DC'd Home with O2 f/u 01/20/[address] Tatyana KIM (right bundle branch block) 09/24/2016 05/18/2018 Abnormality of gait 09/11/2016 01/21/2017 Secondary adrenal insufficiency 09/07/2016 04/27/2018 Type 2 diabetes mellitus wit h microalbuminuria, without long-term current use of insulin 07/02/2016 02/10/2022 Physical deconditioning 10/01/2015 09/07/20 16 Overview: Per LDT 10/30/15 fci charges Diarrhea 09/11/2015 01/21/2017 Overview: --increased watery stool output through ostomy; 01/16: c-diff neg --start imodium BID Acute pulmonary embolism 08/06/2015 016 Overview: --Patient presented with pleuritic Chest Pain, Heparin gtt initiated until PE ruled out --Negative for PE CT with PE protocol. Heparin drip was discontinued. 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 --c/o blood in urine & dysuria. 2+ Hb on UA. Check BK urine. Empiric cipro started --07/08- symptoms improving --07/09: +BK (162,000) copies: continue cipro for tx. 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 Treated w ganciclovir. Plan: - continue acyclovir - monitor tac levels Dysmetabolic syndrome X 09/07/20 16 Obesity 09/08/2017 Overview: Obesity class III Body mass index is 32.09 kg/(m^2). 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 Treated with vori, then changed to posa d/t presumed resistance. Repeat CT chest 10/12/14 improved. 12/14/14 CT clear --ppx posa PFO (patent foramen ovale) 11/06 Obstructive lung disease (generalized) 02/04/2016 Overview: --monitor. No h/o smoking. Not currently on any treatment at this time. Reduced FEV1 and DLCO. recent Pneumothorax on right Overview: --right sided chest pain that radiates to the scapula. Worse with deep breath. Scapula tender to palpation. -- CXR showedsmall right apical pneumothorax. EKG unremarkable. Cardiac enzymes negative. --Right apical pneumothorax most likely cause of her chest pain. No respiratory distress. On room air. --11/30 CXR shows pneumo no longer visible. 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 food related vs GVHD; pt cutting back on snacking today; on GVHD diet (GI soft/fiber controlled). --stool [id number] 07/05 (down from 2500ml 07/04). Some blood in stool overnight 07/05; platelets transfused. No blood noted afterward. --increased stool 1725ml 07/06. No colonoscopy; continue to hold off on ECP; 07/09-stool output decreasing; monitor documented as of this encounter (statuses as of 09/09/2022) [facility]01-25-2021 History of Past illness Narrative* Problem Noted Date Resolved Date Shortness of breath 10/14/2020 06/19/2022 Parastomal hernia 05/29/2020 06/04/2020 Last Assessment & Plan: Assessment: s/p 05/29 parastomal hernia repair with TAR PLAN: -continue postoperative care Colostomy status 09/18/2018 06/03/2022 PEPE (acute kidney injury) 09/12/20182021 Overview: Last Assessment & Plan: SCr normalized to 1.02 today, SCr 3.2 on admission at OSH. Baseline 0.8-1.0. Likely 2/2 dehydration from vomiting and hyperCa. Continue MIVF as discussed elsewhere. Last Assessment & Plan: SCr normalized to 1.02 today, SCr 3.2 on admission at OSH. Baseline 0.8-1.0. Likely 2/2 dehydration from vomiting and hyperCa. Continue MIVF as discussed elsewhere. Stage 3 chronic kidney disease 05/13/2018 0 06/03/2022 Dehydration 05/13/2018 06/03/2022 Itching 01/11/2018 02/18/2018 Insomnia 01/11/2018 09/18/2018 Abnormal echocardiogram 06/03/2017 09/02/20 17 SBO (small bowel obstruction) 01/25/2017 Abdominal pain 01/25/2017 01/25/2017 Overview: --01/24 Outside ER admit for 10 abd pain, decreased Colostomy output. CT 01/24/17 with new hernia in RLQ. --58 Pt states no abd pain/craming and pain 0/10, +stool output and tolerating liquids and solids. Plan for General Surg f/u outpatient for h/o SBO. 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 may need to increase FK and/or start low dose steroids Bronchopneumonia due to human metapneumovirus (h MPV) 01/14/2017 01/29/2017 Overview: -- presented as fever, cough, sinus NULL. -- RVP was (+) for Human metapneumovirus --CXR ? basilar atalectasis v pneumonia; --CT sinus acute sinusitis - u/a C&S neg - had persistent fevers and received 2 days of zosyn (01/16-01/17); -- zosyn was dc'd with all cultures being neg and she remained afebrile -- developed hypoxia with a positive desat study -- DC'd Home with O2 f/u 01/20/[address] Tatyana KIM (right bundle branch block) 09/24/2016 05/18/2018 Abnormality of gait 09/11/2016 01/21/2017 Secondary adrenal insufficiency 09/07/2016 04/27/2018 Type 2 diabetes mellitus wit h microalbuminuria, without long-term current use of insulin 07/02/2016 02/10/2022 Physical deconditioning 10/01/2015 09/07/20 16 Overview: Per LDT 10/30/15 fci charges Diarrhea 09/11/2015 01/21/2017 Overview: --increased watery stool output through ostomy; 01/16: c-diff neg --start imodium BID Acute pulmonary embolism 08/06/2015 016 Overview: --Patient presented with pleuritic Chest Pain, Heparin gtt initiated until PE ruled out --Negative for PE CT with PE protocol. Heparin drip was discontinued. 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 --c/o blood in urine & dysuria. 2+ Hb on UA. Check BK urine. Empiric cipro started --07/08- symptoms improving --07/09: +BK (162,000) copies: continue cipro for tx. 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 Treated w ganciclovir. Plan: - continue acyclovir - monitor tac levels Dysmetabolic syndrome X 09/07/20 16 Obesity 09/08/2017 Overview: Obesity class III Body mass index is 32.09 kg/(m^2). 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 Treated with vori, then changed to posa d/t presumed resistance. Repeat CT chest 10/12/14 improved. 12/14/14 CT clear --ppx posa PFO (patent foramen ovale) 11/06 Obstructive lung disease (generalized) 02/04/2016 Overview: --monitor. No h/o smoking. Not currently on any treatment at this time. Reduced FEV1 and DLCO. recent Pneumothorax on right Overview: --right sided chest pain that radiates to the scapula. Worse with deep breath. Scapula tender to palpation. -- CXR showedsmall right apical pneumothorax. EKG unremarkable. Cardiac enzymes negative. --Right apical pneumothorax most likely cause of her chest pain. No respiratory distress. On room air. --11/30 CXR shows pneumo no longer visible. 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 food related vs GVHD; pt cutting back on snacking today; on GVHD diet (GI soft/fiber controlled). --stool [id number] 07/05 (down from 2500ml 07/04). Some blood in stool overnight 07/05; platelets transfused. No blood noted afterward. --increased stool 1725ml 07/06. No colonoscopy; continue to hold off on ECP; 07/09-stool output decreasing; monitor documented as of this encounter (statuses as of 09/09/2022) [facility]01-25-2021 History of Past illness Narrative* Problem Noted Date Resolved Date Shortness of breath 10/14/2020 06/19/2022 Parastomal hernia 05/29/2020 06/04/2020 Last Assessment & Plan: Assessment: s/p 05/29 parastomal hernia repair with TAR PLAN: -continue postoperative care Colostomy status 09/18/2018 06/03/2022 PEPE (acute kidney injury) 09/12/20182021 Overview: Last Assessment & Plan: SCr normalized to 1.02 today, SCr 3.2 on admission at OSH. Baseline 0.8-1.0. Likely 2/2 dehydration from vomiting and hyperCa. Continue MIVF as discussed elsewhere. Last Assessment & Plan: SCr normalized to 1.02 today, SCr 3.2 on admission at OSH. Baseline 0.8-1.0. Likely 2/2 dehydration from vomiting and hyperCa. Continue MIVF as discussed elsewhere. Stage 3 chronic kidney disease 05/13/2018 0 06/03/2022 Dehydration 05/13/2018 06/03/2022 Itching 01/11/2018 02/18/2018 Insomnia 01/11/2018 09/18/2018 Abnormal echocardiogram 06/03/2017 09/02/20 17 SBO (small bowel obstruction) 01/25/2017 Abdominal pain 01/25/2017 01/25/2017 Overview: --01/24 Outside ER admit for 06/29 abd pain, decreased Colostomy output. CT 01/24/17 with new hernia in RLQ. --01/25 Pt states no abd pain/craming and pain 0/10, +stool output and tolerating liquids and solids. Plan for General Surg f/u outpatient for h/o SBO. 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 may need to increase FK and/or start low dose steroids Bronchopneumonia due to human metapneumovirus (h MPV) 01/14/2017 01/29/2017 Overview: -- presented as fever, cough, sinus NULL. -- RVP was (+) for Human metapneumovirus --CXR ? basilar atalectasis v pneumonia; --CT sinus acute sinusitis - u/a C&S neg - had persistent fevers and received 2 days of zosyn (01/16-01/17); -- zosyn was dc'd with all cultures being neg and she remained afebrile -- developed hypoxia with a positive desat study -- DC'd Home with O2 f/u 01/20/[address] Tatyana THORNTONBB (right bundle branch block) 09/24/2016 05/18/2018 Abnormality of gait 09/11/2016 01/21/2017 Secondary adrenal insufficiency 09/07/2016 04/27/2018 Type 2 diabetes mellitus wit h microalbuminuria, without long-term current use of insulin 07/02/2016 02/10/2022 Physical deconditioning 10/01/2015 09/07/20 16 Overview: Per LDT 10/30/15 fci charges Diarrhea 09/11/2015 01/21/2017 Overview: --increased watery stool output through ostomy; 01/16: c-diff neg --start imodium BID Acute pulmonary embolism 08/06/2015 016 Overview: --Patient presented with pleuritic Chest Pain, Heparin gtt initiated until PE ruled out --Negative for PE CT with PE protocol. Heparin drip was discontinued. 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 --c/o blood in urine & dysuria. 2+ Hb on UA. Check BK urine. Empiric cipro started --07/08- symptoms improving --07/09: +BK (162,000) copies: continue cipro for tx. 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 Treated w ganciclovir. Plan: - continue acyclovir - monitor tac levels Dysmetabolic syndrome X 09/07/20 16 Obesity 09/08/2017 Overview: Obesity class III Body mass index is 32.09 kg/(m^2). 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 Treated with vori, then changed to posa d/t presumed resistance. Repeat CT chest 10/12/14 improved. 12/14/14 CT clear --ppx posa PFO (patent foramen ovale) 11/06 Obstructive lung disease (generalized) 02/04/2016 Overview: --monitor. No h/o smoking. Not currently on any treatment at this time. Reduced FEV1 and DLCO. recent Pneumothorax on right Overview: --right sided chest pain that radiates to the scapula. Worse with deep breath. Scapula tender to palpation. -- CXR showedsmall right apical pneumothorax. EKG unremarkable. Cardiac enzymes negative. --Right apical pneumothorax most likely cause of her chest pain. No respiratory distress. On room air. --11/30 CXR shows pneumo no longer visible. 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 food related vs GVHD; pt cutting back on snacking today; on GVHD diet (GI soft/fiber controlled). --stool [id number] 07/05 (down from 2500ml 07/04). Some blood in stool overnight 07/05; platelets transfused. No blood noted afterward. --increased stool 1725ml 07/06. No colonoscopy; continue to hold off on ECP; 07/09-stool output decreasing; monitor documented as of this encounter (statuses as of 09/09/2022) [facility]01-25-2021 History of Past illness Narrative* Problem Noted Date Resolved Date Shortness of breath 10/14/2020 06/19/2022 Parastomal hernia 05/29/2020 06/04/2020 Last Assessment & Plan: Assessment: s/p 05/29 parastomal hernia repair with TAR PLAN: -continue postoperative care Colostomy status 09/18/2018 06/03/2022 EPPE (acute kidney injury) 09/12/20182021 Overview: Last Assessment & Plan: SCr normalized to 1.02 today, SCr 3.2 on admission at OSH. Baseline 0.8-1.0. Likely 2/2 dehydration from vomiting and hyperCa. Continue MIVF as discussed elsewhere. Last Assessment & Plan: SCr normalized to 1.02 today, SCr 3.2 on admission at OSH. Baseline 0.8-1.0. Likely 2/2 dehydration from vomiting and hyperCa. Continue MIVF as discussed elsewhere. Stage 3 chronic kidney disease 05/13/2018 0 06/03/2022 Dehydration 05/13/2018 06/03/2022 Itching 01/11/2018 02/18/2018 Insomnia 01/11/2018 09/18/2018 Abnormal echocardiogram 06/03/2017 09/02/20 17 SBO (small bowel obstruction) 01/25/2017 Abdominal pain 01/25/2017 01/25/2017 Overview: --01/24 Outside ER admit for 10/10 abd pain, decreased Colostomy output. CT 01/24/17 with new hernia in RLQ. --5/8 Pt states no abd pain/craming and pain 0/10, +stool output and tolerating liquids and solids. Plan for General Surg f/u outpatient for h/o SBO. 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 may need to increase FK and/or start low dose steroids Bronchopneumonia due to human metapneumovirus (h MPV) 01/14/2017 01/29/2017 Overview: -- presented as fever, cough, sinus NULL. -- RVP was (+) for Human metapneumovirus --CXR ? basilar atalectasis v pneumonia; --CT sinus acute sinusitis - u/a C&S neg - had persistent fevers and received 2 days of zosyn (01/16-01/17); -- zosyn was dc'd with all cultures being neg and she remained afebrile -- developed hypoxia with a positive desat study -- DC'd Home with O2 f/u 01/20/[address] Tatyana KIM (right bundle branch block) 09/24/2016 05/18/2018 Abnormality of gait 09/11/2016 01/21/2017 Secondary adrenal insufficiency 09/07/2016 04/27/2018 Type 2 diabetes mellitus wit h microalbuminuria, without long-term current use of insulin 07/02/2016 02/10/2022 Physical deconditioning 10/01/2015 09/07/20 16 Overview: Per LDT 10/30/15 fci charges Diarrhea 09/11/2015 01/21/2017 Overview: --increased watery stool output through ostomy; 01/16: c-diff neg --start imodium BID Acute pulmonary embolism 08/06/2015 016 Overview: --Patient presented with pleuritic Chest Pain, Heparin gtt initiated until PE ruled out --Negative for PE CT with PE protocol. Heparin drip was discontinued. 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 --c/o blood in urine & dysuria. 2+ Hb on UA. Check BK urine. Empiric cipro started --07/08- symptoms improving --07/09: +BK (162,000) copies: continue cipro for tx. 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 Treated w ganciclovir. Plan: - continue acyclovir - monitor tac levels Dysmetabolic syndrome X 09/07/20 16 Obesity 09/08/2017 Overview: Obesity class III Body mass index is 32.09 kg/(m^2). 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 Treated with vori, then changed to posa d/t presumed resistance. Repeat CT chest 10/12/14 improved. 12/14/14 CT clear --ppx posa PFO (patent foramen ovale) 11/06 Obstructive lung disease (generalized) 02/04/2016 Overview: --monitor. No h/o smoking. Not currently on any treatment at this time. Reduced FEV1 and DLCO. recent Pneumothorax on right Overview: --right sided chest pain that radiates to the scapula. Worse with deep breath. Scapula tender to palpation. -- CXR showedsmall right apical pneumothorax. EKG unremarkable. Cardiac enzymes negative. --Right apical pneumothorax most likely cause of her chest pain. No respiratory distress. On room air. --11/30 CXR shows pneumo no longer visible. 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 food related vs GVHD; pt cutting back on snacking today; on GVHD diet (GI soft/fiber controlled). --stool [id number] 07/05 (down from 2500ml 07/04). Some blood in stool overnight 07/05; platelets transfused. No blood noted afterward. --increased stool 1725ml 07/06. No colonoscopy; continue to hold off on ECP; 07/09-stool output decreasing; monitor documented as of this encounter (statuses as of 09/11/2022) [facility]01-25-2021 History of Past illness Narrative* Problem Noted Date Resolved Date Shortness of breath 10/14/2020 06/19/2022 Parastomal hernia 05/29/2020 06/04/2020 Last Assessment & Plan: Assessment: s/p 05/29 parastomal hernia repair with TAR PLAN: -continue postoperative care Colostomy status 09/18/2018 06/03/2022 PEPE (acute kidney injury) 09/12/20182021 Overview: Last Assessment & Plan: SCr normalized to 1.02 today, SCr 3.2 on admission at OSH. Baseline 0.8-1.0. Likely 2/2 dehydration from vomiting and hyperCa. Continue MIVF as discussed elsewhere. Last Assessment & Plan: SCr normalized to 1.02 today, SCr 3.2 on admission at OSH. Baseline 0.8-1.0. Likely 2/2 dehydration from vomiting and hyperCa. Continue MIVF as discussed elsewhere. Stage 3 chronic kidney disease 05/13/2018 0 06/03/2022 Dehydration 05/13/2018 06/03/2022 Itching 01/11/2018 02/18/2018 Insomnia 01/11/2018 09/18/2018 Abnormal echocardiogram 06/03/2017 09/02/20 17 SBO (small bowel obstruction) 01/25/2017 Abdominal pain 01/25/2017 01/25/2017 Overview: --01/24 Outside ER admit for 10 abd pain, decreased Colostomy output. CT 01/24/17 with new hernia in RLQ. --5/8 Pt states no abd pain/craming and pain 0/10, +stool output and tolerating liquids and solids. Plan for General Surg f/u outpatient for h/o SBO. 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 may need to increase FK and/or start low dose steroids Bronchopneumonia due to human metapneumovirus (h MPV) 01/14/2017 01/29/2017 Overview: -- presented as fever, cough, sinus NULL. -- RVP was (+) for Human metapneumovirus --CXR ? basilar atalectasis v pneumonia; --CT sinus acute sinusitis - u/a C&S neg - had persistent fevers and received 2 days of zosyn (01/16-01/17); -- zosyn was dc'd with all cultures being neg and she remained afebrile -- developed hypoxia with a positive desat study -- DC'd Home with O2 f/u 01/20/[address] Tatyana KIM (right bundle branch block) 09/24/2016 05/18/2018 Abnormality of gait 09/11/2016 01/21/2017 Secondary adrenal insufficiency 09/07/2016 04/27/2018 Type 2 diabetes mellitus wit h microalbuminuria, without long-term current use of insulin 07/02/2016 02/10/2022 Physical deconditioning 10/01/2015 09/07/20 16 Overview: Per LDT 10/30/15 fci charges Diarrhea 09/11/2015 01/21/2017 Overview: --increased watery stool output through ostomy; 01/16: c-diff neg --start imodium BID Acute pulmonary embolism 08/06/2015 016 Overview: --Patient presented with pleuritic Chest Pain, Heparin gtt initiated until PE ruled out --Negative for PE CT with PE protocol. Heparin drip was discontinued. 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 --c/o blood in urine & dysuria. 2+ Hb on UA. Check BK urine. Empiric cipro started --07/08- symptoms improving --07/09: +BK (162,000) copies: continue cipro for tx. 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 Treated w ganciclovir. Plan: - continue acyclovir - monitor tac levels Dysmetabolic syndrome X 09/07/20 16 Obesity 09/08/2017 Overview: Obesity class III Body mass index is 32.09 kg/(m^2). 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 Treated with vori, then changed to posa d/t presumed resistance. Repeat CT chest 10/12/14 improved. 12/14/14 CT clear --ppx posa PFO (patent foramen ovale) 11/06 Obstructive lung disease (generalized) 02/04/2016 Overview: --monitor. No h/o smoking. Not currently on any treatment at this time. Reduced FEV1 and DLCO. recent Pneumothorax on right Overview: --right sided chest pain that radiates to the scapula. Worse with deep breath. Scapula tender to palpation. -- CXR showedsmall right apical pneumothorax. EKG unremarkable. Cardiac enzymes negative. --Right apical pneumothorax most likely cause of her chest pain. No respiratory distress. On room air. --11/30 CXR shows pneumo no longer visible. 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 food related vs GVHD; pt cutting back on snacking today; on GVHD diet (GI soft/fiber controlled). --stool [id number] 07/05 (down from 2500ml 07/04). Some blood in stool overnight 07/05; platelets transfused. No blood noted afterward. --increased stool 1725ml 07/06. No colonoscopy; continue to hold off on ECP; 07/09-stool output decreasing; monitor documented as of this encounter (statuses as of 09/23/2022) [facility]01-25-2021 History of Past illness Narrative* Problem Noted Date Resolved Date Shortness of breath 10/14/2020 06/19/2022 Parastomal hernia 05/29/2020 06/04/2020 Last Assessment & Plan: Assessment: s/p 05/29 parastomal hernia repair with TAR PLAN: -continue postoperative care Colostomy status 09/18/2018 06/03/2022 PEPE (acute kidney injury) 09/12/20182021 Overview: Last Assessment & Plan: SCr normalized to 1.02 today, SCr 3.2 on admission at OSH. Baseline 0.8-1.0. Likely 2/2 dehydration from vomiting and hyperCa. Continue MIVF as discussed elsewhere. Last Assessment & Plan: SCr normalized to 1.02 today, SCr 3.2 on admission at OSH. Baseline 0.8-1.0. Likely 2/2 dehydration from vomiting and hyperCa. Continue MIVF as discussed elsewhere. Stage 3 chronic kidney disease 05/13/2018 0 06/03/2022 Dehydration 05/13/2018 06/03/2022 Itching 01/11/2018 02/18/2018 Insomnia 01/11/2018 09/18/2018 Abnormal echocardiogram 06/03/2017 09/02/20 17 SBO (small bowel obstruction) 01/25/2017 Abdominal pain 01/25/2017 01/25/2017 Overview: --01/24 Outside ER admit for 06/29 abd pain, decreased Colostomy output. CT 01/24/17 with new hernia in RLQ. --01/25 Pt states no abd pain/craming and pain 0/10, +stool output and tolerating liquids and solids. Plan for General Surg f/u outpatient for h/o SBO. 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 may need to increase FK and/or start low dose steroids Bronchopneumonia due to human metapneumovirus (h MPV) 01/14/2017 01/29/2017 Overview: -- presented as fever, cough, sinus NULL. -- RVP was (+) for Human metapneumovirus --CXR ? basilar atalectasis v pneumonia; --CT sinus acute sinusitis - u/a C&S neg - had persistent fevers and received 2 days of zosyn (01/16-01/17); -- zosyn was dc'd with all cultures being neg and she remained afebrile -- developed hypoxia with a positive desat study -- DC'd Home with O2 f/u 01/20/[address] Tatyana THORNTONBB (right bundle branch block) 09/24/2016 05/18/2018 Abnormality of gait 09/11/2016 01/21/2017 Secondary adrenal insufficiency 09/07/2016 04/27/2018 Type 2 diabetes mellitus wit h microalbuminuria, without long-term current use of insulin 07/02/2016 02/10/2022 Physical deconditioning 10/01/2015 09/07/20 16 Overview: Per LDT 10/30/15 fci charges Diarrhea 09/11/2015 01/21/2017 Overview: --increased watery stool output through ostomy; 01/16: c-diff neg --start imodium BID Acute pulmonary embolism 08/06/2015 016 Overview: --Patient presented with pleuritic Chest Pain, Heparin gtt initiated until PE ruled out --Negative for PE CT with PE protocol. Heparin drip was discontinued. 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 --c/o blood in urine & dysuria. 2+ Hb on UA. Check BK urine. Empiric cipro started --07/08- symptoms improving --07/09: +BK (162,000) copies: continue cipro for tx. 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 Treated w ganciclovir. Plan: - continue acyclovir - monitor tac levels Dysmetabolic syndrome X 09/07/20 16 Obesity 09/08/2017 Overview: Obesity class III Body mass index is 32.09 kg/(m^2). 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 Treated with vori, then changed to posa d/t presumed resistance. Repeat CT chest 10/12/14 improved. 12/14/14 CT clear --ppx posa PFO (patent foramen ovale) 11/06 Obstructive lung disease (generalized) 02/04/2016 Overview: --monitor. No h/o smoking. Not currently on any treatment at this time. Reduced FEV1 and DLCO. recent Pneumothorax on right Overview: --right sided chest pain that radiates to the scapula. Worse with deep breath. Scapula tender to palpation. -- CXR showedsmall right apical pneumothorax. EKG unremarkable. Cardiac enzymes negative. --Right apical pneumothorax most likely cause of her chest pain. No respiratory distress. On room air. --11/30 CXR shows pneumo no longer visible. 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 food related vs GVHD; pt cutting back on snacking today; on GVHD diet (GI soft/fiber controlled). --stool [id number] 07/05 (down from 2500ml 07/04). Some blood in stool overnight 07/05; platelets transfused. No blood noted afterward. --increased stool 1725ml 07/06. No colonoscopy; continue to hold off on ECP; 07/09-stool output decreasing; monitor documented as of this encounter (statuses as of 11/30/2022) [facility]01-25-2021 History of Past illness Narrative* Problem Noted Date Resolved Date Shortness of breath 10/14/2020 06/19/2022 Parastomal hernia 05/29/2020 06/04/2020 Last Assessment & Plan: Assessment: s/p 05/29 parastomal hernia repair with TAR PLAN: -continue postoperative care Colostomy status 09/18/2018 06/03/2022 PEPE (acute kidney injury) 09/12/20182021 Overview: Last Assessment & Plan: SCr normalized to 1.02 today, SCr 3.2 on admission at OSH. Baseline 0.8-1.0. Likely 2/2 dehydration from vomiting and hyperCa. Continue MIVF as discussed elsewhere. Last Assessment & Plan: SCr normalized to 1.02 today, SCr 3.2 on admission at OSH. Baseline 0.8-1.0. Likely 2/2 dehydration from vomiting and hyperCa. Continue MIVF as discussed elsewhere. Stage 3 chronic kidney disease 05/13/2018 0 06/03/2022 Dehydration 05/13/2018 06/03/2022 Itching 01/11/2018 02/18/2018 Insomnia 01/11/2018 09/18/2018 Abnormal echocardiogram 06/03/2017 09/02/20 17 SBO (small bowel obstruction) 01/25/2017 Abdominal pain 01/25/2017 01/25/2017 Overview: --7 Outside ER admit for 10/10 abd pain, decreased Colostomy output. CT 01/24/17 with new hernia in RLQ. --5/8 Pt states no abd pain/craming and pain 0/10, +stool output and tolerating liquids and solids. Plan for General Surg f/u outpatient for h/o SBO. 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 may need to increase FK and/or start low dose steroids Bronchopneumonia due to human metapneumovirus (h MPV) 01/14/2017 01/29/2017 Overview: -- presented as fever, cough, sinus NULL. -- RVP was (+) for Human metapneumovirus --CXR ? basilar atalectasis v pneumonia; --CT sinus acute sinusitis - u/a C&S neg - had persistent fevers and received 2 days of zosyn (01/16-01/17); -- zosyn was dc'd with all cultures being neg and she remained afebrile -- developed hypoxia with a positive desat study -- DC'd Home with O2 f/u 01/20/[address] Tatyana KIM (right bundle branch block) 09/24/2016 05/18/2018 Abnormality of gait 09/11/2016 01/21/2017 Secondary adrenal insufficiency 09/07/2016 04/27/2018 Type 2 diabetes mellitus wit h microalbuminuria, without long-term current use of insulin 07/02/2016 02/10/2022 Physical deconditioning 10/01/2015 09/07/20 16 Overview: Per LDT 10/30/15 fci charges Diarrhea 09/11/2015 01/21/2017 Overview: --increased watery stool output through ostomy; 01/16: c-diff neg --start imodium BID Acute pulmonary embolism 08/06/2015 016 Overview: --Patient presented with pleuritic Chest Pain, Heparin gtt initiated until PE ruled out --Negative for PE CT with PE protocol. Heparin drip was discontinued. 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 --c/o blood in urine & dysuria. 2+ Hb on UA. Check BK urine. Empiric cipro started --07/08- symptoms improving --07/09: +BK (162,000) copies: continue cipro for tx. 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 Treated w ganciclovir. Plan: - continue acyclovir - monitor tac levels Dysmetabolic syndrome X 09/07/20 16 Obesity 09/08/2017 Overview: Obesity class III Body mass index is 32.09 kg/(m^2). 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 Treated with vori, then changed to posa d/t presumed resistance. Repeat CT chest 10/12/14 improved. 3/27/15 CT clear --ppx posa PFO (patent foramen ovale) 11/06 Obstructive lung disease (generalized) 02/04/2016 Overview: --monitor. No h/o smoking. Not currently on any treatment at this time. Reduced FEV1 and DLCO. recent Pneumothorax on right Overview: --right sided chest pain that radiates to the scapula. Worse with deep breath. Scapula tender to palpation. -- CXR showedsmall right apical pneumothorax. EKG unremarkable. Cardiac enzymes negative. --Right apical pneumothorax most likely cause of her chest pain. No respiratory distress. On room air. --11/30 CXR shows pneumo no longer visible. 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 food related vs GVHD; pt cutting back on snacking today; on GVHD diet (GI soft/fiber controlled). --stool [id number] 07/05 (down from 2500ml 07/04). Some blood in stool overnight 07/05; platelets transfused. No blood noted afterward. --increased stool 1725ml 07/06. No colonoscopy; continue to hold off on ECP; 07/09-stool output decreasing; monitor documented as of this encounter (statuses as of 12/01/2022) [facility]01-25-2021 History of Past illness Narrative* Problem Noted Date Resolved Date Shortness of breath 10/14/2020 06/19/2022 Parastomal hernia 05/29/2020 06/04/2020 Last Assessment & Plan: Assessment: s/p 05/29 parastomal hernia repair with TAR PLAN: -continue postoperative care Colostomy status 09/18/2018 06/03/2022 PEPE (acute kidney injury) 09/12/20182021 Overview: Last Assessment & Plan: SCr normalized to 1.02 today, SCr 3.2 on admission at OSH. Baseline 0.8-1.0. Likely 2/2 dehydration from vomiting and hyperCa. Continue MIVF as discussed elsewhere. Last Assessment & Plan: SCr normalized to 1.02 today, SCr 3.2 on admission at OSH. Baseline 0.8-1.0. Likely 2/2 dehydration from vomiting and hyperCa. Continue MIVF as discussed elsewhere. Stage 3 chronic kidney disease 05/13/2018 0 06/03/2022 Dehydration 05/13/2018 06/03/2022 Itching 01/11/2018 02/18/2018 Insomnia 01/11/2018 09/18/2018 Abnormal echocardiogram 06/03/2017 09/02/20 17 SBO (small bowel obstruction) 01/25/2017 Abdominal pain 01/25/2017 01/25/2017 Overview: --01/24 Outside ER admit for 1010 abd pain, decreased Colostomy output. CT 01/24/17 with new hernia in RLQ. --5/8 Pt states no abd pain/craming and pain 0/10, +stool output and tolerating liquids and solids. Plan for General Surg f/u outpatient for h/o SBO. 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 may need to increase FK and/or start low dose steroids Bronchopneumonia due to human metapneumovirus (h MPV) 01/14/2017 01/29/2017 Overview: -- presented as fever, cough, sinus NULL. -- RVP was (+) for Human metapneumovirus --CXR ? basilar atalectasis v pneumonia; --CT sinus acute sinusitis - u/a C&S neg - had persistent fevers and received 2 days of zosyn (01/16-01/17); -- zosyn was dc'd with all cultures being neg and she remained afebrile -- developed hypoxia with a positive desat study -- DC'd Home with O2 f/u 01/20/[address] Tatyana KIM (right bundle branch block) 09/24/2016 05/18/2018 Abnormality of gait 09/11/2016 01/21/2017 Secondary adrenal insufficiency 09/07/2016 04/27/2018 Type 2 diabetes mellitus wit h microalbuminuria, without long-term current use of insulin 07/02/2016 02/10/2022 Physical deconditioning 10/01/2015 09/07/20 16 Overview: Per LDT 10/30/15 fci charges Diarrhea 09/11/2015 01/21/2017 Overview: --increased watery stool output through ostomy; 01/16: c-diff neg --start imodium BID Acute pulmonary embolism 08/06/2015 016 Overview: --Patient presented with pleuritic Chest Pain, Heparin gtt initiated until PE ruled out --Negative for PE CT with PE protocol. Heparin drip was discontinued. 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 --c/o blood in urine & dysuria. 2+ Hb on UA. Check BK urine. Empiric cipro started --07/08- symptoms improving --07/09: +BK (162,000) copies: continue cipro for tx. 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 Treated w ganciclovir. Plan: - continue acyclovir - monitor tac levels Dysmetabolic syndrome X 09/07/20 16 Obesity 09/08/2017 Overview: Obesity class III Body mass index is 32.09 kg/(m^2). 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 Treated with vori, then changed to posa d/t presumed resistance. Repeat CT chest 10/12/14 improved. 12/14/14 CT clear --ppx posa PFO (patent foramen ovale) 11/06 Obstructive lung disease (generalized) 02/04/2016 Overview: --monitor. No h/o smoking. Not currently on any treatment at this time. Reduced FEV1 and DLCO. recent Pneumothorax on right Overview: --right sided chest pain that radiates to the scapula. Worse with deep breath. Scapula tender to palpation. -- CXR showedsmall right apical pneumothorax. EKG unremarkable. Cardiac enzymes negative. --Right apical pneumothorax most likely cause of her chest pain. No respiratory distress. On room air. --11/30 CXR shows pneumo no longer visible. 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 food related vs GVHD; pt cutting back on snacking today; on GVHD diet (GI soft/fiber controlled). --stool [id number] 07/05 (down from 2500ml 07/04). Some blood in stool overnight 07/05; platelets transfused. No blood noted afterward. --increased stool 1725ml 07/06. No colonoscopy; continue to hold off on ECP; 07/09-stool output decreasing; monitor documented as of this encounter (statuses as of 12/03/2022) [facility]01-25-2021 History of Past illness Narrative* Problem Noted Date Resolved Date Shortness of breath 10/14/2020 06/19/2022 Parastomal hernia 05/29/2020 06/04/2020 Last Assessment & Plan: Assessment: s/p 05/29 parastomal hernia repair with TAR PLAN: -continue postoperative care Colostomy status 09/18/2018 06/03/2022 PEPE (acute kidney injury) 09/12/20182021 Overview: Last Assessment & Plan: SCr normalized to 1.02 today, SCr 3.2 on admission at OSH. Baseline 0.8-1.0. Likely 2/2 dehydration from vomiting and hyperCa. Continue MIVF as discussed elsewhere. Last Assessment & Plan: SCr normalized to 1.02 today, SCr 3.2 on admission at OSH. Baseline 0.8-1.0. Likely 2/2 dehydration from vomiting and hyperCa. Continue MIVF as discussed elsewhere. Stage 3 chronic kidney disease 05/13/2018 0 06/03/2022 Dehydration 05/13/2018 06/03/2022 Itching 01/11/2018 02/18/2018 Insomnia 01/11/2018 09/18/2018 Abnormal echocardiogram 06/03/2017 09/02/20 17 SBO (small bowel obstruction) 01/25/2017 Abdominal pain 01/25/2017 01/25/2017 Overview: --01/24 Outside ER admit for 06/29 abd pain, decreased Colostomy output. CT 01/24/17 with new hernia in RLQ. --01/25 Pt states no abd pain/craming and pain 0/10, +stool output and tolerating liquids and solids. Plan for General Surg f/u outpatient for h/o SBO. 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 may need to increase FK and/or start low dose steroids Bronchopneumonia due to human metapneumovirus (h MPV) 01/14/2017 01/29/2017 Overview: -- presented as fever, cough, sinus NULL. -- RVP was (+) for Human metapneumovirus --CXR ? basilar atalectasis v pneumonia; --CT sinus acute sinusitis - u/a C&S neg - had persistent fevers and received 2 days of zosyn (01/16-01/17); -- zosyn was dc'd with all cultures being neg and she remained afebrile -- developed hypoxia with a positive desat study -- DC'd Home with O2 f/u 01/20/[address] Tatyana KIM (right bundle branch block) 09/24/2016 05/18/2018 Abnormality of gait 09/11/2016 01/21/2017 Secondary adrenal insufficiency 09/07/2016 04/27/2018 Type 2 diabetes mellitus wit h microalbuminuria, without long-term current use of insulin 07/02/2016 02/10/2022 Physical deconditioning 10/01/2015 09/07/20 16 Overview: Per LDT 10/30/15 fci charges Diarrhea 09/11/2015 01/21/2017 Overview: --increased watery stool output through ostomy; 01/16: c-diff neg --start imodium BID Acute pulmonary embolism 08/06/2015 016 Overview: --Patient presented with pleuritic Chest Pain, Heparin gtt initiated until PE ruled out --Negative for PE CT with PE protocol. Heparin drip was discontinued. 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 --c/o blood in urine & dysuria. 2+ Hb on UA. Check BK urine. Empiric cipro started --07/08- symptoms improving --07/09: +BK (162,000) copies: continue cipro for tx. 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 Treated w ganciclovir. Plan: - continue acyclovir - monitor tac levels Dysmetabolic syndrome X 09/07/20 16 Obesity 09/08/2017 Overview: Obesity class III Body mass index is 32.09 kg/(m^2). 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 Treated with vori, then changed to posa d/t presumed resistance. Repeat CT chest 10/12/14 improved. 12/14/14 CT clear --ppx posa PFO (patent foramen ovale) 11/06 Obstructive lung disease (generalized) 02/04/2016 Overview: --monitor. No h/o smoking. Not currently on any treatment at this time. Reduced FEV1 and DLCO. recent Pneumothorax on right Overview: --right sided chest pain that radiates to the scapula. Worse with deep breath. Scapula tender to palpation. -- CXR showedsmall right apical pneumothorax. EKG unremarkable. Cardiac enzymes negative. --Right apical pneumothorax most likely cause of her chest pain. No respiratory distress. On room air. --11/30 CXR shows pneumo no longer visible. 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 food related vs GVHD; pt cutting back on snacking today; on GVHD diet (GI soft/fiber controlled). --stool [id number] 07/05 (down from 2500ml 07/04). Some blood in stool overnight 07/05; platelets transfused. No blood noted afterward. --increased stool 1725ml 07/06. No colonoscopy; continue to hold off on ECP; 07/09-stool output decreasing; monitor documented as of this encounter (statuses as of 12/08/2022) [facility]01-25-2021 History of Past illness Narrative* Problem Noted Date Resolved Date Shortness of breath 10/14/2020 06/19/2022 Parastomal hernia 05/29/2020 06/04/2020 Last Assessment & Plan: Assessment: s/p 05/29 parastomal hernia repair with TAR PLAN: -continue postoperative care Colostomy status 09/18/2018 06/03/2022 PEPE (acute kidney injury) 09/12/20182021 Overview: Last Assessment & Plan: SCr normalized to 1.02 today, SCr 3.2 on admission at OSH. Baseline 0.8-1.0. Likely 2/2 dehydration from vomiting and hyperCa. Continue MIVF as discussed elsewhere. Last Assessment & Plan: SCr normalized to 1.02 today, SCr 3.2 on admission at OSH. Baseline 0.8-1.0. Likely 2/2 dehydration from vomiting and hyperCa. Continue MIVF as discussed elsewhere. Stage 3 chronic kidney disease 05/13/2018 0 06/03/2022 Dehydration 05/13/2018 06/03/2022 Itching 01/11/2018 02/18/2018 Insomnia 01/11/2018 09/18/2018 Abnormal echocardiogram 06/03/2017 09/02/20 17 SBO (small bowel obstruction) 01/25/2017 Abdominal pain 01/25/2017 01/25/2017 Overview: --01/24 Outside ER admit for 10/10 abd pain, decreased Colostomy output. CT 01/24/17 with new hernia in RLQ. --5/8 Pt states no abd pain/craming and pain 0/10, +stool output and tolerating liquids and solids. Plan for General Surg f/u outpatient for h/o SBO. 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 may need to increase FK and/or start low dose steroids Bronchopneumonia due to human metapneumovirus (h MPV) 01/14/2017 01/29/2017 Overview: -- presented as fever, cough, sinus NULL. -- RVP was (+) for Human metapneumovirus --CXR ? basilar atalectasis v pneumonia; --CT sinus acute sinusitis - u/a C&S neg - had persistent fevers and received 2 days of zosyn (01/16-01/17); -- zosyn was dc'd with all cultures being neg and she remained afebrile -- developed hypoxia with a positive desat study -- DC'd Home with O2 f/u 01/20/[address] Tatyana KIM (right bundle branch block) 09/24/2016 05/18/2018 Abnormality of gait 09/11/2016 01/21/2017 Secondary adrenal insufficiency 09/07/2016 04/27/2018 Type 2 diabetes mellitus wit h microalbuminuria, without long-term current use of insulin 07/02/2016 02/10/2022 Physical deconditioning 10/01/2015 09/07/20 16 Overview: Per LDT 10/30/15 fci charges Diarrhea 09/11/2015 01/21/2017 Overview: --increased watery stool output through ostomy; 01/16: c-diff neg --start imodium BID Acute pulmonary embolism 08/06/2015 016 Overview: --Patient presented with pleuritic Chest Pain, Heparin gtt initiated until PE ruled out --Negative for PE CT with PE protocol. Heparin drip was discontinued. 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 --c/o blood in urine & dysuria. 2+ Hb on UA. Check BK urine. Empiric cipro started --07/08- symptoms improving --07/09: +BK (162,000) copies: continue cipro for tx. 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 Treated w ganciclovir. Plan: - continue acyclovir - monitor tac levels Dysmetabolic syndrome X 09/07/20 16 Obesity 09/08/2017 Overview: Obesity class III Body mass index is 32.09 kg/(m^2). 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 Treated with vori, then changed to posa d/t presumed resistance. Repeat CT chest 10/12/14 improved. 12/14/14 CT clear --ppx posa PFO (patent foramen ovale) 11/06 Obstructive lung disease (generalized) 02/04/2016 Overview: --monitor. No h/o smoking. Not currently on any treatment at this time. Reduced FEV1 and DLCO. recent Pneumothorax on right Overview: --right sided chest pain that radiates to the scapula. Worse with deep breath. Scapula tender to palpation. -- CXR showedsmall right apical pneumothorax. EKG unremarkable. Cardiac enzymes negative. --Right apical pneumothorax most likely cause of her chest pain. No respiratory distress. On room air. --11/30 CXR shows pneumo no longer visible. 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 food related vs GVHD; pt cutting back on snacking today; on GVHD diet (GI soft/fiber controlled). --stool [id number] 07/05 (down from 2500ml 07/04). Some blood in stool overnight 07/05; platelets transfused. No blood noted afterward. --increased stool 1725ml 07/06. No colonoscopy; continue to hold off on ECP; 07/09-stool output decreasing; monitor documented as of this encounter (statuses as of 12/22/2022) [facility]01-25-2021 History of Past illness Narrative* Problem Noted Date Resolved Date Shortness of breath 10/14/2020 06/19/2022 Parastomal hernia 05/29/2020 06/04/2020 Last Assessment & Plan: Assessment: s/p 05/29 parastomal hernia repair with TAR PLAN: -continue postoperative care Colostomy status 09/18/2018 06/03/2022 PEPE (acute kidney injury) 09/12/20182021 Overview: Last Assessment & Plan: SCr normalized to 1.02 today, SCr 3.2 on admission at OSH. Baseline 0.8-1.0. Likely 2/2 dehydration from vomiting and hyperCa. Continue MIVF as discussed elsewhere. Last Assessment & Plan: SCr normalized to 1.02 today, SCr 3.2 on admission at OSH. Baseline 0.8-1.0. Likely 2/2 dehydration from vomiting and hyperCa. Continue MIVF as discussed elsewhere. Stage 3 chronic kidney disease 05/13/2018 0 06/03/2022 Dehydration 05/13/2018 06/03/2022 Itching 01/11/2018 02/18/2018 Insomnia 01/11/2018 09/18/2018 Abnormal echocardiogram 06/03/2017 09/02/20 17 SBO (small bowel obstruction) 01/25/2017 Abdominal pain 01/25/2017 01/25/2017 Overview: --01/24 Outside ER admit for 1010 abd pain, decreased Colostomy output. CT 01/24/17 with new hernia in RLQ. --5/8 Pt states no abd pain/craming and pain 0/10, +stool output and tolerating liquids and solids. Plan for General Surg f/u outpatient for h/o SBO. 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 may need to increase FK and/or start low dose steroids Bronchopneumonia due to human metapneumovirus (h MPV) 01/14/2017 01/29/2017 Overview: -- presented as fever, cough, sinus NULL. -- RVP was (+) for Human metapneumovirus --CXR ? basilar atalectasis v pneumonia; --CT sinus acute sinusitis - u/a C&S neg - had persistent fevers and received 2 days of zosyn (01/16-01/17); -- zosyn was dc'd with all cultures being neg and she remained afebrile -- developed hypoxia with a positive desat study -- DC'd Home with O2 f/u 01/20/[address] Tatyana THORNTONBB (right bundle branch block) 09/24/2016 05/18/2018 Abnormality of gait 09/11/2016 01/21/2017 Secondary adrenal insufficiency 09/07/2016 04/27/2018 Type 2 diabetes mellitus wit h microalbuminuria, without long-term current use of insulin 07/02/2016 02/10/2022 Physical deconditioning 10/01/2015 09/07/20 16 Overview: Per LDT 10/30/15 fci charges Diarrhea 09/11/2015 01/21/2017 Overview: --increased watery stool output through ostomy; 01/16: c-diff neg --start imodium BID Acute pulmonary embolism 08/06/2015 016 Overview: --Patient presented with pleuritic Chest Pain, Heparin gtt initiated until PE ruled out --Negative for PE CT with PE protocol. Heparin drip was discontinued. 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 --c/o blood in urine & dysuria. 2+ Hb on UA. Check BK urine. Empiric cipro started --07/08- symptoms improving --07/09: +BK (162,000) copies: continue cipro for tx. 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 Treated w ganciclovir. Plan: - continue acyclovir - monitor tac levels Dysmetabolic syndrome X 09/07/20 16 Obesity 09/08/2017 Overview: Obesity class III Body mass index is 32.09 kg/(m^2). 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 Treated with vori, then changed to posa d/t presumed resistance. Repeat CT chest 10/12/14 improved. 12/14/14 CT clear --ppx posa PFO (patent foramen ovale) 11/06 Obstructive lung disease (generalized) 02/04/2016 Overview: --monitor. No h/o smoking. Not currently on any treatment at this time. Reduced FEV1 and DLCO. recent Pneumothorax on right Overview: --right sided chest pain that radiates to the scapula. Worse with deep breath. Scapula tender to palpation. -- CXR showedsmall right apical pneumothorax. EKG unremarkable. Cardiac enzymes negative. --Right apical pneumothorax most likely cause of her chest pain. No respiratory distress. On room air. --11/30 CXR shows pneumo no longer visible. 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 food related vs GVHD; pt cutting back on snacking today; on GVHD diet (GI soft/fiber controlled). --stool [id number] 07/05 (down from 2500ml 07/04). Some blood in stool overnight 07/05; platelets transfused. No blood noted afterward. --increased stool 1725ml 07/06. No colonoscopy; continue to hold off on ECP; 07/09-stool output decreasing; monitor documented as of this encounter (statuses as of 12/26/2022) [facility]01-25-2021 History of Past illness Narrative* Problem Noted Date Resolved Date Shortness of breath 10/14/2020 06/19/2022 Parastomal hernia 05/29/2020 06/04/2020 Last Assessment & Plan: Assessment: s/p 05/29 parastomal hernia repair with TAR PLAN: -continue postoperative care Colostomy status 09/18/2018 06/03/2022 PEPE (acute kidney injury) 09/12/20182021 Overview: Last Assessment & Plan: SCr normalized to 1.02 today, SCr 3.2 on admission at OSH. Baseline 0.8-1.0. Likely 2/2 dehydration from vomiting and hyperCa. Continue MIVF as discussed elsewhere. Last Assessment & Plan: SCr normalized to 1.02 today, SCr 3.2 on admission at OSH. Baseline 0.8-1.0. Likely 2/2 dehydration from vomiting and hyperCa. Continue MIVF as discussed elsewhere. Stage 3 chronic kidney disease 05/13/2018 0 06/03/2022 Dehydration 05/13/2018 06/03/2022 Itching 01/11/2018 02/18/2018 Insomnia 01/11/2018 09/18/2018 Abnormal echocardiogram 06/03/2017 09/02/20 17 SBO (small bowel obstruction) 01/25/2017 Abdominal pain 01/25/2017 01/25/2017 Overview: --01/24 Outside ER admit for 06/29 abd pain, decreased Colostomy output. CT 01/24/17 with new hernia in RLQ. --01/25 Pt states no abd pain/craming and pain 0/10, +stool output and tolerating liquids and solids. Plan for General Surg f/u outpatient for h/o SBO. 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 may need to increase FK and/or start low dose steroids Bronchopneumonia due to human metapneumovirus (h MPV) 01/14/2017 01/29/2017 Overview: -- presented as fever, cough, sinus NULL. -- RVP was (+) for Human metapneumovirus --CXR ? basilar atalectasis v pneumonia; --CT sinus acute sinusitis - u/a C&S neg - had persistent fevers and received 2 days of zosyn (01/16-01/17); -- zosyn was dc'd with all cultures being neg and she remained afebrile -- developed hypoxia with a positive desat study -- DC'd Home with O2 f/u 01/20/[address] Tatyana KIM (right bundle branch block) 09/24/2016 05/18/2018 Abnormality of gait 09/11/2016 01/21/2017 Secondary adrenal insufficiency 09/07/2016 04/27/2018 Type 2 diabetes mellitus wit h microalbuminuria, without long-term current use of insulin 07/02/2016 02/10/2022 Physical deconditioning 10/01/2015 09/07/20 16 Overview: Per LDT 10/30/15 fci charges Diarrhea 09/11/2015 01/21/2017 Overview: --increased watery stool output through ostomy; 01/16: c-diff neg --start imodium BID Acute pulmonary embolism 08/06/2015 016 Overview: --Patient presented with pleuritic Chest Pain, Heparin gtt initiated until PE ruled out --Negative for PE CT with PE protocol. Heparin drip was discontinued. 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 --c/o blood in urine & dysuria. 2+ Hb on UA. Check BK urine. Empiric cipro started --07/08- symptoms improving --07/09: +BK (162,000) copies: continue cipro for tx. 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 Treated w ganciclovir. Plan: - continue acyclovir - monitor tac levels Dysmetabolic syndrome X 09/07/20 16 Obesity 09/08/2017 Overview: Obesity class III Body mass index is 32.09 kg/(m^2). 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 Treated with vori, then changed to posa d/t presumed resistance. Repeat CT chest 10/12/14 improved. 12/14/14 CT clear --ppx posa PFO (patent foramen ovale) 11/06 Obstructive lung disease (generalized) 02/04/2016 Overview: --monitor. No h/o smoking. Not currently on any treatment at this time. Reduced FEV1 and DLCO. recent Pneumothorax on right Overview: --right sided chest pain that radiates to the scapula. Worse with deep breath. Scapula tender to palpation. -- CXR showedsmall right apical pneumothorax. EKG unremarkable. Cardiac enzymes negative. --Right apical pneumothorax most likely cause of her chest pain. No respiratory distress. On room air. --11/30 CXR shows pneumo no longer visible. 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 food related vs GVHD; pt cutting back on snacking today; on GVHD diet (GI soft/fiber controlled). --stool [id number] 07/05 (down from 2500ml 07/04). Some blood in stool overnight 07/05; platelets transfused. No blood noted afterward. --increased stool 1725ml 07/06. No colonoscopy; continue to hold off on ECP; 07/09-stool output decreasing; monitor documented as of this encounter (statuses as of 12/28/2022) [facility]01-25-2021 History of Past illness Narrative* Problem Noted Date Resolved Date Shortness of breath 10/14/2020 06/19/2022 Parastomal hernia 05/29/2020 06/04/2020 Last Assessment & Plan: Assessment: s/p 05/29 parastomal hernia repair with TAR PLAN: -continue postoperative care Colostomy status 09/18/2018 06/03/2022 PEPE (acute kidney injury) 09/12/20182021 Overview: Last Assessment & Plan: SCr normalized to 1.02 today, SCr 3.2 on admission at OSH. Baseline 0.8-1.0. Likely 2/2 dehydration from vomiting and hyperCa. Continue MIVF as discussed elsewhere. Last Assessment & Plan: SCr normalized to 1.02 today, SCr 3.2 on admission at OSH. Baseline 0.8-1.0. Likely 2/2 dehydration from vomiting and hyperCa. Continue MIVF as discussed elsewhere. Stage 3 chronic kidney disease 05/13/2018 0 06/03/2022 Dehydration 05/13/2018 06/03/2022 Itching 01/11/2018 02/18/2018 Insomnia 01/11/2018 09/18/2018 Abnormal echocardiogram 06/03/2017 09/02/20 17 SBO (small bowel obstruction) 01/25/2017 Abdominal pain 01/25/2017 01/25/2017 Overview: --01/24 Outside ER admit for 10/10 abd pain, decreased Colostomy output. CT 01/24/17 with new hernia in RLQ. --5/8 Pt states no abd pain/craming and pain 0/10, +stool output and tolerating liquids and solids. Plan for General Surg f/u outpatient for h/o SBO. 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 may need to increase FK and/or start low dose steroids Bronchopneumonia due to human metapneumovirus (h MPV) 01/14/2017 01/29/2017 Overview: -- presented as fever, cough, sinus NULL. -- RVP was (+) for Human metapneumovirus --CXR ? basilar atalectasis v pneumonia; --CT sinus acute sinusitis - u/a C&S neg - had persistent fevers and received 2 days of zosyn (01/16-01/17); -- zosyn was dc'd with all cultures being neg and she remained afebrile -- developed hypoxia with a positive desat study -- DC'd Home with O2 f/u 01/20/[address] Tatyana KIM (right bundle branch block) 09/24/2016 05/18/2018 Abnormality of gait 09/11/2016 01/21/2017 Secondary adrenal insufficiency 09/07/2016 04/27/2018 Type 2 diabetes mellitus wit h microalbuminuria, without long-term current use of insulin 07/02/2016 02/10/2022 Physical deconditioning 10/01/2015 09/07/20 16 Overview: Per LDT 10/30/15 fci charges Diarrhea 09/11/2015 01/21/2017 Overview: --increased watery stool output through ostomy; 01/16: c-diff neg --start imodium BID Acute pulmonary embolism 08/06/2015 016 Overview: --Patient presented with pleuritic Chest Pain, Heparin gtt initiated until PE ruled out --Negative for PE CT with PE protocol. Heparin drip was discontinued. 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 --c/o blood in urine & dysuria. 2+ Hb on UA. Check BK urine. Empiric cipro started --07/08- symptoms improving --07/09: +BK (162,000) copies: continue cipro for tx. 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 Treated w ganciclovir. Plan: - continue acyclovir - monitor tac levels Dysmetabolic syndrome X 09/07/20 16 Obesity 09/08/2017 Overview: Obesity class III Body mass index is 32.09 kg/(m^2). 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 Treated with vori, then changed to posa d/t presumed resistance. Repeat CT chest 10/12/14 improved. 12/14/14 CT clear --ppx posa PFO (patent foramen ovale) 11/06 Obstructive lung disease (generalized) 02/04/2016 Overview: --monitor. No h/o smoking. Not currently on any treatment at this time. Reduced FEV1 and DLCO. recent Pneumothorax on right Overview: --right sided chest pain that radiates to the scapula. Worse with deep breath. Scapula tender to palpation. -- CXR showedsmall right apical pneumothorax. EKG unremarkable. Cardiac enzymes negative. --Right apical pneumothorax most likely cause of her chest pain. No respiratory distress. On room air. --11/30 CXR shows pneumo no longer visible. 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 food related vs GVHD; pt cutting back on snacking today; on GVHD diet (GI soft/fiber controlled). --stool [id number] 07/05 (down from 2500ml 07/04). Some blood in stool overnight 07/05; platelets transfused. No blood noted afterward. --increased stool 1725ml 07/06. No colonoscopy; continue to hold off on ECP; 07/09-stool output decreasing; monitor documented as of this encounter (statuses as of 12/31/2022) [facility]01-25-2021 History of Past illness Narrative* Problem Noted Date Resolved Date Shortness of breath 10/14/2020 06/19/2022 Parastomal hernia 05/29/2020 06/04/2020 Last Assessment & Plan: Assessment: s/p 05/29 parastomal hernia repair with TAR PLAN: -continue postoperative care Colostomy status 09/18/2018 06/03/2022 PEPE (acute kidney injury) 09/12/20182021 Overview: Last Assessment & Plan: SCr normalized to 1.02 today, SCr 3.2 on admission at OSH. Baseline 0.8-1.0. Likely 2/2 dehydration from vomiting and hyperCa. Continue MIVF as discussed elsewhere. Last Assessment & Plan: SCr normalized to 1.02 today, SCr 3.2 on admission at OSH. Baseline 0.8-1.0. Likely 2/2 dehydration from vomiting and hyperCa. Continue MIVF as discussed elsewhere. Stage 3 chronic kidney disease 05/13/2018 0 06/03/2022 Dehydration 05/13/2018 06/03/2022 Itching 01/11/2018 02/18/2018 Insomnia 01/11/2018 09/18/2018 Abnormal echocardiogram 06/03/2017 09/02/20 17 SBO (small bowel obstruction) 01/25/2017 Abdominal pain 01/25/2017 01/25/2017 Overview: --01/24 Outside ER admit for 10/10 abd pain, decreased Colostomy output. CT 01/24/17 with new hernia in RLQ. --5/8 Pt states no abd pain/craming and pain 0/10, +stool output and tolerating liquids and solids. Plan for General Surg f/u outpatient for h/o SBO. 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 may need to increase FK and/or start low dose steroids Bronchopneumonia due to human metapneumovirus (h MPV) 01/14/2017 01/29/2017 Overview: -- presented as fever, cough, sinus NULL. -- RVP was (+) for Human metapneumovirus --CXR ? basilar atalectasis v pneumonia; --CT sinus acute sinusitis - u/a C&S neg - had persistent fevers and received 2 days of zosyn (01/16-01/17); -- zosyn was dc'd with all cultures being neg and she remained afebrile -- developed hypoxia with a positive desat study -- DC'd Home with O2 f/u 01/20/[address] Tatyana KIM (right bundle branch block) 09/24/2016 05/18/2018 Abnormality of gait 09/11/2016 01/21/2017 Secondary adrenal insufficiency 09/07/2016 04/27/2018 Type 2 diabetes mellitus wit h microalbuminuria, without long-term current use of insulin 07/02/2016 02/10/2022 Physical deconditioning 10/01/2015 09/07/20 16 Overview: Per LDT 10/30/15 fci charges Diarrhea 09/11/2015 01/21/2017 Overview: --increased watery stool output through ostomy; 01/16: c-diff neg --start imodium BID Acute pulmonary embolism 08/06/2015 016 Overview: --Patient presented with pleuritic Chest Pain, Heparin gtt initiated until PE ruled out --Negative for PE CT with PE protocol. Heparin drip was discontinued. 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 --c/o blood in urine & dysuria. 2+ Hb on UA. Check BK urine. Empiric cipro started --07/08- symptoms improving --07/09: +BK (162,000) copies: continue cipro for tx. 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 Treated w ganciclovir. Plan: - continue acyclovir - monitor tac levels Dysmetabolic syndrome X 09/07/20 16 Obesity 09/08/2017 Overview: Obesity class III Body mass index is 32.09 kg/(m^2). 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 Treated with vori, then changed to posa d/t presumed resistance. Repeat CT chest 10/12/14 improved. 12/14/14 CT clear --ppx posa PFO (patent foramen ovale) 11/06 Obstructive lung disease (generalized) 02/04/2016 Overview: --monitor. No h/o smoking. Not currently on any treatment at this time. Reduced FEV1 and DLCO. recent Pneumothorax on right Overview: --right sided chest pain that radiates to the scapula. Worse with deep breath. Scapula tender to palpation. -- CXR showedsmall right apical pneumothorax. EKG unremarkable. Cardiac enzymes negative. --Right apical pneumothorax most likely cause of her chest pain. No respiratory distress. On room air. --11/30 CXR shows pneumo no longer visible. 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 food related vs GVHD; pt cutting back on snacking today; on GVHD diet (GI soft/fiber controlled). --stool [id number] 07/05 (down from 2500ml 07/04). Some blood in stool overnight 07/05; platelets transfused. No blood noted afterward. --increased stool 1725ml 07/06. No colonoscopy; continue to hold off on ECP; 07/09-stool output decreasing; monitor documented as of this encounter (statuses as of 01/08/2023) [facility]01-25-2021 History of Past illness Narrative* Problem Noted Date Resolved Date Shortness of breath 10/14/2020 06/19/2022 Parastomal hernia 05/29/2020 06/04/2020 Last Assessment & Plan: Assessment: s/p 05/29 parastomal hernia repair with TAR PLAN: -continue postoperative care Colostomy status 09/18/2018 06/03/2022 PEPE (acute kidney injury) 09/12/20182021 Overview: Last Assessment & Plan: SCr normalized to 1.02 today, SCr 3.2 on admission at OSH. Baseline 0.8-1.0. Likely 2/2 dehydration from vomiting and hyperCa. Continue MIVF as discussed elsewhere. Last Assessment & Plan: SCr normalized to 1.02 today, SCr 3.2 on admission at OSH. Baseline 0.8-1.0. Likely 2/2 dehydration from vomiting and hyperCa. Continue MIVF as discussed elsewhere. Stage 3 chronic kidney disease 05/13/2018 0 06/03/2022 Dehydration 05/13/2018 06/03/2022 Itching 01/11/2018 02/18/2018 Insomnia 01/11/2018 09/18/2018 Abnormal echocardiogram 06/03/2017 09/02/20 17 SBO (small bowel obstruction) 01/25/2017 Abdominal pain 01/25/2017 01/25/2017 Overview: --01/24 Outside ER admit for 06/29 abd pain, decreased Colostomy output. CT 01/24/17 with new hernia in RLQ. --01/25 Pt states no abd pain/craming and pain 0/10, +stool output and tolerating liquids and solids. Plan for General Surg f/u outpatient for h/o SBO. 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 may need to increase FK and/or start low dose steroids Bronchopneumonia due to human metapneumovirus (h MPV) 01/14/2017 01/29/2017 Overview: -- presented as fever, cough, sinus NULL. -- RVP was (+) for Human metapneumovirus --CXR ? basilar atalectasis v pneumonia; --CT sinus acute sinusitis - u/a C&S neg - had persistent fevers and received 2 days of zosyn (01/16-01/17); -- zosyn was dc'd with all cultures being neg and she remained afebrile -- developed hypoxia with a positive desat study -- DC'd Home with O2 f/u 01/20/[address] Tatyana KIM (right bundle branch block) 09/24/2016 05/18/2018 Abnormality of gait 09/11/2016 01/21/2017 Secondary adrenal insufficiency 09/07/2016 04/27/2018 Type 2 diabetes mellitus wit h microalbuminuria, without long-term current use of insulin 07/02/2016 02/10/2022 Physical deconditioning 10/01/2015 09/07/20 16 Overview: Per LDT 10/30/15 fci charges Diarrhea 09/11/2015 01/21/2017 Overview: --increased watery stool output through ostomy; 01/16: c-diff neg --start imodium BID Acute pulmonary embolism 08/06/2015 016 Overview: --Patient presented with pleuritic Chest Pain, Heparin gtt initiated until PE ruled out --Negative for PE CT with PE protocol. Heparin drip was discontinued. 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 --c/o blood in urine & dysuria. 2+ Hb on UA. Check BK urine. Empiric cipro started --07/08- symptoms improving --07/09: +BK (162,000) copies: continue cipro for tx. 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 Treated w ganciclovir. Plan: - continue acyclovir - monitor tac levels Dysmetabolic syndrome X 09/07/20 16 Obesity 09/08/2017 Overview: Obesity class III Body mass index is 32.09 kg/(m^2). 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 Treated with vori, then changed to posa d/t presumed resistance. Repeat CT chest 10/12/14 improved. 12/14/14 CT clear --ppx posa PFO (patent foramen ovale) 11/06 Obstructive lung disease (generalized) 02/04/2016 Overview: --monitor. No h/o smoking. Not currently on any treatment at this time. Reduced FEV1 and DLCO. recent Pneumothorax on right Overview: --right sided chest pain that radiates to the scapula. Worse with deep breath. Scapula tender to palpation. -- CXR showedsmall right apical pneumothorax. EKG unremarkable. Cardiac enzymes negative. --Right apical pneumothorax most likely cause of her chest pain. No respiratory distress. On room air. --11/30 CXR shows pneumo no longer visible. 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 food related vs GVHD; pt cutting back on snacking today; on GVHD diet (GI soft/fiber controlled). --stool [id number] 10/16 (down from 2500ml 07/04). Some blood in stool overnight 07/05; platelets transfused. No blood noted afterward. --increased stool 1725ml 07/06. No colonoscopy; continue to hold off on ECP; 07/09-stool output decreasing; monitor documented as of this encounter (statuses as of 01/13/2023) [facility]01-25-2021 History of Past illness Narrative* Problem Noted Date Resolved Date Shortness of breath 10/14/2020 06/19/2022 Parastomal hernia 05/29/2020 06/04/2020 Last Assessment & Plan: Assessment: s/p 05/29 parastomal hernia repair with TAR PLAN: -continue postoperative care Colostomy status 09/18/2018 06/03/2022 PEPE (acute kidney injury) 09/12/20182021 Overview: Last Assessment & Plan: SCr normalized to 1.02 today, SCr 3.2 on admission at OSH. Baseline 0.8-1.0. Likely 2/2 dehydration from vomiting and hyperCa. Continue MIVF as discussed elsewhere. Last Assessment & Plan: SCr normalized to 1.02 today, SCr 3.2 on admission at OSH. Baseline 0.8-1.0. Likely 2/2 dehydration from vomiting and hyperCa. Continue MIVF as discussed elsewhere. Stage 3 chronic kidney disease 05/13/2018 0 06/03/2022 Dehydration 05/13/2018 06/03/2022 Itching 01/11/2018 02/18/2018 Insomnia 01/11/2018 09/18/2018 Abnormal echocardiogram 06/03/2017 09/02/20 17 SBO (small bowel obstruction) 01/25/2017 Abdominal pain 01/25/2017 01/25/2017 Overview: --01/24 Outside ER admit for 10/10 abd pain, decreased Colostomy output. CT 01/24/17 with new hernia in RLQ. --5/8 Pt states no abd pain/craming and pain 0/10, +stool output and tolerating liquids and solids. Plan for General Surg f/u outpatient for h/o SBO. 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 may need to increase FK and/or start low dose steroids Bronchopneumonia due to human metapneumovirus (h MPV) 01/14/2017 01/29/2017 Overview: -- presented as fever, cough, sinus NULL. -- RVP was (+) for Human metapneumovirus --CXR ? basilar atalectasis v pneumonia; --CT sinus acute sinusitis - u/a C&S neg - had persistent fevers and received 2 days of zosyn (01/16-01/17); -- zosyn was dc'd with all cultures being neg and she remained afebrile -- developed hypoxia with a positive desat study -- DC'd Home with O2 f/u 01/20/[address] Tatyana KIM (right bundle branch block) 09/24/2016 05/18/2018 Abnormality of gait 09/11/2016 01/21/2017 Secondary adrenal insufficiency 09/07/2016 04/27/2018 Type 2 diabetes mellitus wit h microalbuminuria, without long-term current use of insulin 07/02/2016 02/10/2022 Physical deconditioning 10/01/2015 09/07/20 16 Overview: Per LDT 10/30/15 fci charges Diarrhea 09/11/2015 01/21/2017 Overview: --increased watery stool output through ostomy; 01/16: c-diff neg --start imodium BID Acute pulmonary embolism 08/06/2015 016 Overview: --Patient presented with pleuritic Chest Pain, Heparin gtt initiated until PE ruled out --Negative for PE CT with PE protocol. Heparin drip was discontinued. 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 --c/o blood in urine & dysuria. 2+ Hb on UA. Check BK urine. Empiric cipro started --07/08- symptoms improving --07/09: +BK (162,000) copies: continue cipro for tx. 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 Treated w ganciclovir. Plan: - continue acyclovir - monitor tac levels Dysmetabolic syndrome X 09/07/20 16 Obesity 09/08/2017 Overview: Obesity class III Body mass index is 32.09 kg/(m^2). 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 Treated with vori, then changed to posa d/t presumed resistance. Repeat CT chest 10/12/14 improved. 12/14/14 CT clear --ppx posa PFO (patent foramen ovale) 11/06 Obstructive lung disease (generalized) 02/04/2016 Overview: --monitor. No h/o smoking. Not currently on any treatment at this time. Reduced FEV1 and DLCO. recent Pneumothorax on right Overview: --right sided chest pain that radiates to the scapula. Worse with deep breath. Scapula tender to palpation. -- CXR showedsmall right apical pneumothorax. EKG unremarkable. Cardiac enzymes negative. --Right apical pneumothorax most likely cause of her chest pain. No respiratory distress. On room air. --11/30 CXR shows pneumo no longer visible. 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 food related vs GVHD; pt cutting back on snacking today; on GVHD diet (GI soft/fiber controlled). --stool [id number] 07/05 (down from 2500ml 07/04). Some blood in stool overnight 07/05; platelets transfused. No blood noted afterward. --increased stool 1725ml 07/06. No colonoscopy; continue to hold off on ECP; 07/09-stool output decreasing; monitor documented as of this encounter (statuses as of 01/25/2023) [facility]01-25-2021 History of Past illness Narrative* Problem Noted Date Resolved Date Shortness of breath 10/14/2020 06/19/2022 Parastomal hernia 05/29/2020 06/04/2020 Last Assessment & Plan: Assessment: s/p 05/29 parastomal hernia repair with TAR PLAN: -continue postoperative care Colostomy status 09/18/2018 06/03/2022 PEPE (acute kidney injury) 09/12/20182021 Overview: Last Assessment & Plan: SCr normalized to 1.02 today, SCr 3.2 on admission at OSH. Baseline 0.8-1.0. Likely 2/2 dehydration from vomiting and hyperCa. Continue MIVF as discussed elsewhere. Last Assessment & Plan: SCr normalized to 1.02 today, SCr 3.2 on admission at OSH. Baseline 0.8-1.0. Likely 2/2 dehydration from vomiting and hyperCa. Continue MIVF as discussed elsewhere. Stage 3 chronic kidney disease 05/13/2018 0 06/03/2022 Dehydration 05/13/2018 06/03/2022 Itching 01/11/2018 02/18/2018 Insomnia 01/11/2018 09/18/2018 Abnormal echocardiogram 06/03/2017 09/02/20 17 SBO (small bowel obstruction) 01/25/2017 Abdominal pain 01/25/2017 01/25/2017 Overview: --01/24 Outside ER admit for 10/10 abd pain, decreased Colostomy output. CT 01/24/17 with new hernia in RLQ. --5/8 Pt states no abd pain/craming and pain 0/10, +stool output and tolerating liquids and solids. Plan for General Surg f/u outpatient for h/o SBO. 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 may need to increase FK and/or start low dose steroids Bronchopneumonia due to human metapneumovirus (h MPV) 01/14/2017 01/29/2017 Overview: -- presented as fever, cough, sinus NULL. -- RVP was (+) for Human metapneumovirus --CXR ? basilar atalectasis v pneumonia; --CT sinus acute sinusitis - u/a C&S neg - had persistent fevers and received 2 days of zosyn (01/16-01/17); -- zosyn was dc'd with all cultures being neg and she remained afebrile -- developed hypoxia with a positive desat study -- DC'd Home with O2 f/u 01/20/[address] Tatyana KIM (right bundle branch block) 09/24/2016 05/18/2018 Abnormality of gait 09/11/2016 01/21/2017 Secondary adrenal insufficiency 09/07/2016 04/27/2018 Type 2 diabetes mellitus wit h microalbuminuria, without long-term current use of insulin 07/02/2016 02/10/2022 Physical deconditioning 10/01/2015 09/07/20 16 Overview: Per LDT 10/30/15 fci charges Diarrhea 09/11/2015 01/21/2017 Overview: --increased watery stool output through ostomy; 01/16: c-diff neg --start imodium BID Acute pulmonary embolism 08/06/2015 016 Overview: --Patient presented with pleuritic Chest Pain, Heparin gtt initiated until PE ruled out --Negative for PE CT with PE protocol. Heparin drip was discontinued. 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 --c/o blood in urine & dysuria. 2+ Hb on UA. Check BK urine. Empiric cipro started --07/08- symptoms improving --07/09: +BK (162,000) copies: continue cipro for tx. 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 Treated w ganciclovir. Plan: - continue acyclovir - monitor tac levels Dysmetabolic syndrome X 09/07/20 16 Obesity 09/08/2017 Overview: Obesity class III Body mass index is 32.09 kg/(m^2). 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 Treated with vori, then changed to posa d/t presumed resistance. Repeat CT chest 10/12/14 improved. 12/14/14 CT clear --ppx posa PFO (patent foramen ovale) 11/06 Obstructive lung disease (generalized) 02/04/2016 Overview: --monitor. No h/o smoking. Not currently on any treatment at this time. Reduced FEV1 and DLCO. recent Pneumothorax on right Overview: --right sided chest pain that radiates to the scapula. Worse with deep breath. Scapula tender to palpation. -- CXR showedsmall right apical pneumothorax. EKG unremarkable. Cardiac enzymes negative. --Right apical pneumothorax most likely cause of her chest pain. No respiratory distress. On room air. --11/30 CXR shows pneumo no longer visible. 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 food related vs GVHD; pt cutting back on snacking today; on GVHD diet (GI soft/fiber controlled). --stool [id number] 07/05 (down from 2500ml 07/04). Some blood in stool overnight 07/05; platelets transfused. No blood noted afterward. --increased stool 1725ml 07/06. No colonoscopy; continue to hold off on ECP; 07/09-stool output decreasing; monitor documented as of this encounter (statuses as of 03/03/2023) [facility]01-25-2021 History of Past illness Narrative* Problem Noted Date Resolved Date Shortness of breath 10/14/2020 06/19/2022 Parastomal hernia 05/29/2020 06/04/2020 Last Assessment & Plan: Assessment: s/p 05/29 parastomal hernia repair with TAR PLAN: -continue postoperative care Colostomy status 09/18/2018 06/03/2022 PEPE (acute kidney injury) 09/12/20182021 Overview: Last Assessment & Plan: SCr normalized to 1.02 today, SCr 3.2 on admission at OSH. Baseline 0.8-1.0. Likely 2/2 dehydration from vomiting and hyperCa. Continue MIVF as discussed elsewhere. Last Assessment & Plan: SCr normalized to 1.02 today, SCr 3.2 on admission at OSH. Baseline 0.8-1.0. Likely 2/2 dehydration from vomiting and hyperCa. Continue MIVF as discussed elsewhere. Stage 3 chronic kidney disease 05/13/2018 0 06/03/2022 Dehydration 05/13/2018 06/03/2022 Itching 01/11/2018 02/18/2018 Insomnia 01/11/2018 09/18/2018 Abnormal echocardiogram 06/03/2017 09/02/20 17 SBO (small bowel obstruction) 01/25/2017 Abdominal pain 01/25/2017 01/25/2017 Overview: --01/24 Outside ER admit for 06/29 abd pain, decreased Colostomy output. CT 01/24/17 with new hernia in RLQ. --01/25 Pt states no abd pain/craming and pain 0/10, +stool output and tolerating liquids and solids. Plan for General Surg f/u outpatient for h/o SBO. 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 may need to increase FK and/or start low dose steroids Bronchopneumonia due to human metapneumovirus (h MPV) 01/14/2017 01/29/2017 Overview: -- presented as fever, cough, sinus NULL. -- RVP was (+) for Human metapneumovirus --CXR ? basilar atalectasis v pneumonia; --CT sinus acute sinusitis - u/a C&S neg - had persistent fevers and received 2 days of zosyn (01/16-01/17); -- zosyn was dc'd with all cultures being neg and she remained afebrile -- developed hypoxia with a positive desat study -- DC'd Home with O2 f/u 01/20/[address] Tatyana KIM (right bundle branch block) 09/24/2016 05/18/2018 Abnormality of gait 09/11/2016 01/21/2017 Secondary adrenal insufficiency 09/07/2016 04/27/2018 Type 2 diabetes mellitus wit h microalbuminuria, without long-term current use of insulin 07/02/2016 02/10/2022 Physical deconditioning 10/01/2015 09/07/20 16 Overview: Per LDT 10/30/15 fci charges Diarrhea 09/11/2015 01/21/2017 Overview: --increased watery stool output through ostomy; 01/16: c-diff neg --start imodium BID Acute pulmonary embolism 08/06/2015 016 Overview: --Patient presented with pleuritic Chest Pain, Heparin gtt initiated until PE ruled out --Negative for PE CT with PE protocol. Heparin drip was discontinued. 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 --c/o blood in urine & dysuria. 2+ Hb on UA. Check BK urine. Empiric cipro started --07/08- symptoms improving --07/09: +BK (162,000) copies: continue cipro for tx. 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 Treated w ganciclovir. Plan: - continue acyclovir - monitor tac levels Dysmetabolic syndrome X 09/07/20 16 Obesity 09/08/2017 Overview: Obesity class III Body mass index is 32.09 kg/(m^2). 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 Treated with vori, then changed to posa d/t presumed resistance. Repeat CT chest 10/12/14 improved. 12/14/14 CT clear --ppx posa PFO (patent foramen ovale) 11/06 Obstructive lung disease (generalized) 02/04/2016 Overview: --monitor. No h/o smoking. Not currently on any treatment at this time. Reduced FEV1 and DLCO. recent Pneumothorax on right Overview: --right sided chest pain that radiates to the scapula. Worse with deep breath. Scapula tender to palpation. -- CXR showedsmall right apical pneumothorax. EKG unremarkable. Cardiac enzymes negative. --Right apical pneumothorax most likely cause of her chest pain. No respiratory distress. On room air. --11/30 CXR shows pneumo no longer visible. 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 food related vs GVHD; pt cutting back on snacking today; on GVHD diet (GI soft/fiber controlled). --stool [id number] 07/05 (down from 2500ml 07/04). Some blood in stool overnight 07/05; platelets transfused. No blood noted afterward. --increased stool 1725ml 07/06. No colonoscopy; continue to hold off on ECP; 07/09-stool output decreasing; monitor documented as of this encounter (statuses as of 03/03/2023) [facility]01-25-2021 History of Past illness Narrative* Problem Noted Date Resolved Date Shortness of breath 10/14/2020 06/19/2022 Parastomal hernia 05/29/2020 06/04/2020 Last Assessment & Plan: Assessment: s/p 05/29 parastomal hernia repair with TAR PLAN: -continue postoperative care Colostomy status 09/18/2018 06/03/2022 PEPE (acute kidney injury) 09/12/20182021 Overview: Last Assessment & Plan: SCr normalized to 1.02 today, SCr 3.2 on admission at OSH. Baseline 0.8-1.0. Likely 2/2 dehydration from vomiting and hyperCa. Continue MIVF as discussed elsewhere. Last Assessment & Plan: SCr normalized to 1.02 today, SCr 3.2 on admission at OSH. Baseline 0.8-1.0. Likely 2/2 dehydration from vomiting and hyperCa. Continue MIVF as discussed elsewhere. Stage 3 chronic kidney disease 05/13/2018 0 06/03/2022 Dehydration 05/13/2018 06/03/2022 Itching 01/11/2018 02/18/2018 Insomnia 01/11/2018 09/18/2018 Abnormal echocardiogram 06/03/2017 09/02/20 17 SBO (small bowel obstruction) 01/25/2017 Abdominal pain 01/25/2017 01/25/2017 Overview: --01/24 Outside ER admit for 10/10 abd pain, decreased Colostomy output. CT 01/24/17 with new hernia in RLQ. --58 Pt states no abd pain/craming and pain 0/10, +stool output and tolerating liquids and solids. Plan for General Surg f/u outpatient for h/o SBO. 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 may need to increase FK and/or start low dose steroids Bronchopneumonia due to human metapneumovirus (h MPV) 01/14/2017 01/29/2017 Overview: -- presented as fever, cough, sinus NULL. -- RVP was (+) for Human metapneumovirus --CXR ? basilar atalectasis v pneumonia; --CT sinus acute sinusitis - u/a C&S neg - had persistent fevers and received 2 days of zosyn (01/16-01/17); -- zosyn was dc'd with all cultures being neg and she remained afebrile -- developed hypoxia with a positive desat study -- DC'd Home with O2 f/u 01/20/[address] Tatyana KIM (right bundle branch block) 09/24/2016 05/18/2018 Abnormality of gait 09/11/2016 01/21/2017 Secondary adrenal insufficiency 09/07/2016 04/27/2018 Type 2 diabetes mellitus wit h microalbuminuria, without long-term current use of insulin 07/02/2016 02/10/2022 Physical deconditioning 10/01/2015 09/07/20 16 Overview: Per LDT 10/30/15 fci charges Diarrhea 09/11/2015 01/21/2017 Overview: --increased watery stool output through ostomy; 01/16: c-diff neg --start imodium BID Acute pulmonary embolism 08/06/2015 016 Overview: --Patient presented with pleuritic Chest Pain, Heparin gtt initiated until PE ruled out --Negative for PE CT with PE protocol. Heparin drip was discontinued. 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 --c/o blood in urine & dysuria. 2+ Hb on UA. Check BK urine. Empiric cipro started --07/08- symptoms improving --07/09: +BK (162,000) copies: continue cipro for tx. 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 Treated w ganciclovir. Plan: - continue acyclovir - monitor tac levels Dysmetabolic syndrome X 09/07/20 16 Obesity 09/08/2017 Overview: Obesity class III Body mass index is 32.09 kg/(m^2). 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 Treated with vori, then changed to posa d/t presumed resistance. Repeat CT chest 10/12/14 improved. 12/14/14 CT clear --ppx posa PFO (patent foramen ovale) 11/06 Obstructive lung disease (generalized) 02/04/2016 Overview: --monitor. No h/o smoking. Not currently on any treatment at this time. Reduced FEV1 and DLCO. recent Pneumothorax on right Overview: --right sided chest pain that radiates to the scapula. Worse with deep breath. Scapula tender to palpation. -- CXR showedsmall right apical pneumothorax. EKG unremarkable. Cardiac enzymes negative. --Right apical pneumothorax most likely cause of her chest pain. No respiratory distress. On room air. --11/30 CXR shows pneumo no longer visible. 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 food related vs GVHD; pt cutting back on snacking today; on GVHD diet (GI soft/fiber controlled). --stool [id number] 07/05 (down from 2500ml 07/04). Some blood in stool overnight 07/05; platelets transfused. No blood noted afterward. --increased stool 1725ml 07/06. No colonoscopy; continue to hold off on ECP; 07/09-stool output decreasing; monitor documented as of this encounter (statuses as of 03/08/2023) [facility]01-25-2021 History of Past illness Narrative* Problem Noted Date Resolved Date Shortness of breath 10/14/2020 06/19/2022 Parastomal hernia 05/29/2020 06/04/2020 Last Assessment & Plan: Assessment: s/p 05/29 parastomal hernia repair with TAR PLAN: -continue postoperative care Colostomy status 09/18/2018 06/03/2022 PEPE (acute kidney injury) 09/12/20182021 Overview: Last Assessment & Plan: SCr normalized to 1.02 today, SCr 3.2 on admission at OSH. Baseline 0.8-1.0. Likely 2/2 dehydration from vomiting and hyperCa. Continue MIVF as discussed elsewhere. Last Assessment & Plan: SCr normalized to 1.02 today, SCr 3.2 on admission at OSH. Baseline 0.8-1.0. Likely 2/2 dehydration from vomiting and hyperCa. Continue MIVF as discussed elsewhere. Stage 3 chronic kidney disease 05/13/2018 0 06/03/2022 Dehydration 05/13/2018 06/03/2022 Itching 01/11/2018 02/18/2018 Insomnia 01/11/2018 09/18/2018 Abnormal echocardiogram 06/03/2017 09/02/20 17 SBO (small bowel obstruction) 01/25/2017 Abdominal pain 01/25/2017 01/25/2017 Overview: --01/24 Outside ER admit for 10 abd pain, decreased Colostomy output. CT 01/24/17 with new hernia in RLQ. --5/8 Pt states no abd pain/craming and pain 0/10, +stool output and tolerating liquids and solids. Plan for General Surg f/u outpatient for h/o SBO. 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 may need to increase FK and/or start low dose steroids Bronchopneumonia due to human metapneumovirus (h MPV) 01/14/2017 01/29/2017 Overview: -- presented as fever, cough, sinus NULL. -- RVP was (+) for Human metapneumovirus --CXR ? basilar atalectasis v pneumonia; --CT sinus acute sinusitis - u/a C&S neg - had persistent fevers and received 2 days of zosyn (01/16-01/17); -- zosyn was dc'd with all cultures being neg and she remained afebrile -- developed hypoxia with a positive desat study -- DC'd Home with O2 f/u 01/20/[address] Tatyana KIM (right bundle branch block) 09/24/2016 05/18/2018 Abnormality of gait 09/11/2016 01/21/2017 Secondary adrenal insufficiency 09/07/2016 04/27/2018 Type 2 diabetes mellitus wit h microalbuminuria, without long-term current use of insulin 07/02/2016 02/10/2022 Physical deconditioning 10/01/2015 09/07/20 16 Overview: Per LDT 10/30/15 fci charges Diarrhea 09/11/2015 01/21/2017 Overview: --increased watery stool output through ostomy; 01/16: c-diff neg --start imodium BID Acute pulmonary embolism 08/06/2015 016 Overview: --Patient presented with pleuritic Chest Pain, Heparin gtt initiated until PE ruled out --Negative for PE CT with PE protocol. Heparin drip was discontinued. 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 --c/o blood in urine & dysuria. 2+ Hb on UA. Check BK urine. Empiric cipro started --07/08- symptoms improving --07/09: +BK (162,000) copies: continue cipro for tx. 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 Treated w ganciclovir. Plan: - continue acyclovir - monitor tac levels Dysmetabolic syndrome X 09/07/20 16 Obesity 09/08/2017 Overview: Obesity class III Body mass index is 32.09 kg/(m^2). 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 Treated with vori, then changed to posa d/t presumed resistance. Repeat CT chest 10/12/14 improved. 12/14/14 CT clear --ppx posa PFO (patent foramen ovale) 11/06 Obstructive lung disease (generalized) 02/04/2016 Overview: --monitor. No h/o smoking. Not currently on any treatment at this time. Reduced FEV1 and DLCO. recent Pneumothorax on right Overview: --right sided chest pain that radiates to the scapula. Worse with deep breath. Scapula tender to palpation. -- CXR showedsmall right apical pneumothorax. EKG unremarkable. Cardiac enzymes negative. --Right apical pneumothorax most likely cause of her chest pain. No respiratory distress. On room air. --11/30 CXR shows pneumo no longer visible. 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 food related vs GVHD; pt cutting back on snacking today; on GVHD diet (GI soft/fiber controlled). --stool [id number] 07/05 (down from 2500ml 07/04). Some blood in stool overnight 07/05; platelets transfused. No blood noted afterward. --increased stool 1725ml 07/06. No colonoscopy; continue to hold off on ECP; 07/09-stool output decreasing; monitor documented as of this encounter (statuses as of 03/15/2023) [facility]01-25-2021 History of Past illness Narrative* Problem Noted Date Resolved Date Shortness of breath 10/14/2020 06/19/2022 Parastomal hernia 05/29/2020 06/04/2020 Last Assessment & Plan: Assessment: s/p 05/29 parastomal hernia repair with TAR PLAN: -continue postoperative care Colostomy status 09/18/2018 06/03/2022 PEPE (acute kidney injury) 09/12/20182021 Overview: Last Assessment & Plan: SCr normalized to 1.02 today, SCr 3.2 on admission at OSH. Baseline 0.8-1.0. Likely 2/2 dehydration from vomiting and hyperCa. Continue MIVF as discussed elsewhere. Last Assessment & Plan: SCr normalized to 1.02 today, SCr 3.2 on admission at [facility]. Baseline 0.8-1.0. Likely 2/2 dehydration from vomiting and hyperCa. Continue MIVF as discussed elsewhere. Stage 3 chronic kidney disease 05/13/2018 0 06/03/2022 Dehydration 05/13/2018 06/03/2022 Itching 01/11/2018 02/18/2018 Insomnia 01/11/2018 09/18/2018 Abnormal echocardiogram 06/03/2017 09/02/20 17 SBO (small bowel obstruction) 01/25/2017 Abdominal pain 01/25/2017 01/25/2017 Overview: --01/24 Outside ER admit for 06/29 abd pain, decreased Colostomy output. CT 01/24/17 with new hernia in RLQ. --01/25 Pt states no abd pain/craming and pain 0/10, +stool output and tolerating liquids and solids. Plan for General Surg f/u outpatient for h/o SBO. 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 may need to increase FK and/or start low dose steroids Bronchopneumonia due to human metapneumovirus (h MPV) 01/14/2017 01/29/2017 Overview: -- presented as fever, cough, sinus NULL. -- RVP was (+) for Human metapneumovirus --CXR ? basilar atalectasis v pneumonia; --CT sinus acute sinusitis - u/a C&S neg - had persistent fevers and received 2 days of zosyn (01/16-01/17); -- zosyn was dc'd with all cultures being neg and she remained afebrile -- developed hypoxia with a positive desat study -- DC'd Home with O2 f/u 01/20/[address] Tatyana KIM (right bundle branch block) 09/24/2016 05/18/2018 Abnormality of gait 09/11/2016 01/21/2017 Secondary adrenal insufficiency 09/07/2016 04/27/2018 Type 2 diabetes mellitus wit h microalbuminuria, without long-term current use of insulin 07/02/2016 02/10/2022 Physical deconditioning 10/01/2015 09/07/20 16 Overview: Per LDT 10/30/15 fci charges Diarrhea 09/11/2015 01/21/2017 Overview: --increased watery stool output through ostomy; 01/16: c-diff neg --start imodium BID Acute pulmonary embolism 08/06/2015 016 Overview: --Patient presented with pleuritic Chest Pain, Heparin gtt initiated until PE ruled out --Negative for PE CT with PE protocol. Heparin drip was discontinued. 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 --c/o blood in urine & dysuria. 2+ Hb on UA. Check BK urine. Empiric cipro started --07/08- symptoms improving --07/09: +BK (162,000) copies: continue cipro for tx. 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 Treated w ganciclovir. Plan: - continue acyclovir - monitor tac levels Dysmetabolic syndrome X 09/07/20 16 Obesity 09/08/2017 Overview: Obesity class III Body mass index is 32.09 kg/(m^2). 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 Treated with vori, then changed to posa d/t presumed resistance. Repeat CT chest 10/12/14 improved. 12/14/14 CT clear --ppx posa PFO (patent foramen ovale) 11/06 Obstructive lung disease (generalized) 02/04/2016 Overview: --monitor. No h/o smoking. Not currently on any treatment at this time. Reduced FEV1 and DLCO. recent Pneumothorax on right Overview: --right sided chest pain that radiates to the scapula. Worse with deep breath. Scapula tender to palpation. -- CXR showedsmall right apical pneumothorax. EKG unremarkable. Cardiac enzymes negative. --Right apical pneumothorax most likely cause of her chest pain. No respiratory distress. On room air. --11/30 CXR shows pneumo no longer visible. 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 food related vs GVHD; pt cutting back on snacking today; on GVHD diet (GI soft/fiber controlled). --stool [id number] 07/05 (down from 2500ml 07/04). Some blood in stool overnight 07/05; platelets transfused. No blood noted afterward. --increased stool 1725ml 07/06. No colonoscopy; continue to hold off on ECP; 07/09-stool output decreasing; monitor documented as of this encounter (statuses as of 03/24/2023) [facility]09-09-2020 History of Past illness Narrative* Problem Noted Date Resolved Date Parastomal hernia 05/29/2020 06/04/2020 Last Assessment & Plan: Assessment: s/p 05/29 parastomal hernia repair with TAR PLAN: -continue postoperative care Itching 01/11/2018 02/18/2018 Insomnia 01/11/2018 09/18/2018 Abnormal echocardiogram 06/03/2017 09/02/20 17 SBO (small bowel obstruction) 01/25/2017 Abdominal pain 01/25/2017 01/25/2017 Overview: --01/24 Outside ER admit for 10 abd pain, decreased Colostomy output. CT 01/24/17 with new hernia in RLQ. --01/25 Pt states no abd pain/craming and pain 0/10, +stool output and tolerating liquids and solids. Plan for General Surg f/u outpatient for h/o SBO. 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 may need to increase FK and/or start low dose steroids Bronchopneumonia due to human metapneumovirus (h MPV) 01/14/2017 01/29/2017 Overview: -- presented as fever, cough, sinus NULL. -- RVP was (+) for Human metapneumovirus --CXR ? basilar atalectasis v pneumonia; --CT sinus acute sinusitis - u/a C&S neg - had persistent fevers and received 2 days of zosyn (01/16-01/17); -- zosyn was dc'd with all cultures being neg and she remained afebrile -- developed hypoxia with a positive desat study -- DC'd Home with O2 f/u 01/20/[address] Tatyana KIM (right bundle branch block) 09/24/2016 05/18/2018 Abnormality of gait 09/11/2016 01/21/2017 Secondary adrenal insufficiency 09/07/2016 04/27/2018 Physical deconditioning 10/01/2015 09/07/20 16 Overview: Per LDT 10/30/15 fci charges Diarrhea 09/11/2015 01/21/2017 Overview: --increased watery stool output through ostomy; 01/16: c-diff neg --start imodium BID Acute pulmonary embolism 08/06/2015 016 Overview: --Patient presented with pleuritic Chest Pain, Heparin gtt initiated until PE ruled out --Negative for PE CT with PE protocol. Heparin drip was discontinued. 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 --c/o blood in urine & dysuria. 2+ Hb on UA. Check BK urine. Empiric cipro started --07/08- symptoms improving --07/09: +BK (162,000) copies: continue cipro for tx. 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 Treated w ganciclovir. Plan: - continue acyclovir - monitor tac levels Dysmetabolic syndrome X 09/07/20 16 Obesity 09/08/2017 Overview: Obesity class III Body mass index is 32.09 kg/(m^2). 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 Treated with vori, then changed to posa d/t presumed resistance. Repeat CT chest 10/12/14 improved. 12/14/14 CT clear --ppx posa PFO (patent foramen ovale) 11/06 Obstructive lung disease (generalized) 02/04/2016 Overview: --monitor. No h/o smoking. Not currently on any treatment at this time. Reduced FEV1 and DLCO. recent Pneumothorax on right Overview: --right sided chest pain that radiates to the scapula. Worse with deep breath. Scapula tender to palpation. -- CXR showedsmall right apical pneumothorax. EKG unremarkable. Cardiac enzymes negative. --Right apical pneumothorax most likely cause of her chest pain. No respiratory distress. On room air. --11/30 CXR shows pneumo no longer visible. 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 food related vs GVHD; pt cutting back on snacking today; on GVHD diet (GI soft/fiber controlled). --stool [id number] 07/05 (down from 2500ml 07/04). Some blood in stool overnight 07/05; platelets transfused. No blood noted afterward. --increased stool 1725ml 07/06. No colonoscopy; continue to hold off on ECP; 07/09-stool output decreasing; monitor documented as of this encounter (statuses as of 12/17/2021) [facility]09-09-2020 History of Past illness Narrative* Problem Noted Date Resolved Date Parastomal hernia 05/29/2020 06/04/2020 Last Assessment & Plan: Assessment: s/p 05/29 parastomal hernia repair with TAR PLAN: -continue postoperative care Itching 01/11/2018 02/18/2018 Insomnia 01/11/2018 09/18/2018 Abnormal echocardiogram 06/03/2017 09/02/20 17 SBO (small bowel obstruction) 01/25/2017 Abdominal pain 01/25/2017 01/25/2017 Overview: --/7 Outside ER admit for 10/10 abd pain, decreased Colostomy output. CT 01/24/17 with new hernia in RLQ. --5/8 Pt states no abd pain/craming and pain 0/10, +stool output and tolerating liquids and solids. Plan for General Surg f/u outpatient for h/o SBO. 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 may need to increase FK and/or start low dose steroids Bronchopneumonia due to human metapneumovirus (h MPV) 01/14/2017 01/29/2017 Overview: -- presented as fever, cough, sinus NULL. -- RVP was (+) for Human metapneumovirus --CXR ? basilar atalectasis v pneumonia; --CT sinus acute sinusitis - u/a C&S neg - had persistent fevers and received 2 days of zosyn (01/16-01/17); -- zosyn was dc'd with all cultures being neg and she remained afebrile -- developed hypoxia with a positive desat study -- DC'd Home with O2 f/u 01/20/[address] Tatyana KIM (right bundle branch block) 09/24/2016 05/18/2018 Abnormality of gait 09/11/2016 01/21/2017 Secondary adrenal insufficiency 09/07/2016 04/27/2018 Physical deconditioning 10/01/2015 09/07/20 16 Overview: Per LDT 10/30/15 fci charges Diarrhea 09/11/2015 01/21/2017 Overview: --increased watery stool output through ostomy; 01/16: c-diff neg --start imodium BID Acute pulmonary embolism 08/06/2015 016 Overview: --Patient presented with pleuritic Chest Pain, Heparin gtt initiated until PE ruled out --Negative for PE CT with PE protocol. Heparin drip was discontinued. 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 --c/o blood in urine & dysuria. 2+ Hb on UA. Check BK urine. Empiric cipro started --07/08- symptoms improving --07/09: +BK (162,000) copies: continue cipro for tx. 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 Treated w ganciclovir. Plan: - continue acyclovir - monitor tac levels Dysmetabolic syndrome X 09/07/20 16 Obesity 09/08/2017 Overview: Obesity class III Body mass index is 32.09 kg/(m^2). 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 Treated with vori, then changed to posa d/t presumed resistance. Repeat CT chest 10/12/14 improved. 12/14/14 CT clear --ppx posa PFO (patent foramen ovale) 11/06 Obstructive lung disease (generalized) 02/04/2016 Overview: --monitor. No h/o smoking. Not currently on any treatment at this time. Reduced FEV1 and DLCO. recent Pneumothorax on right Overview: --right sided chest pain that radiates to the scapula. Worse with deep breath. Scapula tender to palpation. -- CXR showedsmall right apical pneumothorax. EKG unremarkable. Cardiac enzymes negative. --Right apical pneumothorax most likely cause of her chest pain. No respiratory distress. On room air. --11/30 CXR shows pneumo no longer visible. 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 food related vs GVHD; pt cutting back on snacking today; on GVHD diet (GI soft/fiber controlled). --stool [id number] 07/05 (down from 2500ml 07/04). Some blood in stool overnight 07/05; platelets transfused. No blood noted afterward. --increased stool 1725ml 07/06. No colonoscopy; continue to hold off on ECP; 07/09-stool output decreasing; monitor documented as of this encounter (statuses as of 12/22/2021) [facility]09-09-2020 History of Past illness Narrative* Problem Noted Date Resolved Date Parastomal hernia 05/29/2020 06/04/2020 Last Assessment & Plan: Assessment: s/p 05/29 parastomal hernia repair with TAR PLAN: -continue postoperative care Itching 01/11/2018 02/18/2018 Insomnia 01/11/2018 09/18/2018 Abnormal echocardiogram 06/03/2017 09/02/20 17 SBO (small bowel obstruction) 01/25/2017 Abdominal pain 01/25/2017 01/25/2017 Overview: --01/24 Outside ER admit for 10 abd pain, decreased Colostomy output. CT 01/24/17 with new hernia in RLQ. --01/25 Pt states no abd pain/craming and pain 0/10, +stool output and tolerating liquids and solids. Plan for General Surg f/u outpatient for h/o SBO. 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 may need to increase FK and/or start low dose steroids Bronchopneumonia due to human metapneumovirus (h MPV) 01/14/2017 01/29/2017 Overview: -- presented as fever, cough, sinus NULL. -- RVP was (+) for Human metapneumovirus --CXR ? basilar atalectasis v pneumonia; --CT sinus acute sinusitis - u/a C&S neg - had persistent fevers and received 2 days of zosyn (01/16-01/17); -- zosyn was dc'd with all cultures being neg and she remained afebrile -- developed hypoxia with a positive desat study -- DC'd Home with O2 f/u 01/20/[address] Tatyana KIM (right bundle branch block) 09/24/2016 05/18/2018 Abnormality of gait 09/11/2016 01/21/2017 Secondary adrenal insufficiency 09/07/2016 04/27/2018 Physical deconditioning 10/01/2015 09/07/20 16 Overview: Per LDT 10/30/15 fci charges Diarrhea 09/11/2015 01/21/2017 Overview: --increased watery stool output through ostomy; 01/16: c-diff neg --start imodium BID Acute pulmonary embolism 08/06/2015 016 Overview: --Patient presented with pleuritic Chest Pain, Heparin gtt initiated until PE ruled out --Negative for PE CT with PE protocol. Heparin drip was discontinued. 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 --c/o blood in urine & dysuria. 2+ Hb on UA. Check BK urine. Empiric cipro started --07/08- symptoms improving --07/09: +BK (162,000) copies: continue cipro for tx. 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 Treated w ganciclovir. Plan: - continue acyclovir - monitor tac levels Dysmetabolic syndrome X 09/07/20 16 Obesity 09/08/2017 Overview: Obesity class III Body mass index is 32.09 kg/(m^2). 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 Treated with vori, then changed to posa d/t presumed resistance. Repeat CT chest 10/12/14 improved. 12/14/14 CT clear --ppx posa PFO (patent foramen ovale) 11/06 Obstructive lung disease (generalized) 02/04/2016 Overview: --monitor. No h/o smoking. Not currently on any treatment at this time. Reduced FEV1 and DLCO. recent Pneumothorax on right Overview: --right sided chest pain that radiates to the scapula. Worse with deep breath. Scapula tender to palpation. -- CXR showedsmall right apical pneumothorax. EKG unremarkable. Cardiac enzymes negative. --Right apical pneumothorax most likely cause of her chest pain. No respiratory distress. On room air. --11/30 CXR shows pneumo no longer visible. 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 food related vs GVHD; pt cutting back on snacking today; on GVHD diet (GI soft/fiber controlled). --stool [id number] 07/05 (down from 2500ml 07/04). Some blood in stool overnight 07/05; platelets transfused. No blood noted afterward. --increased stool 1725ml 07/06. No colonoscopy; continue to hold off on ECP; 07/09-stool output decreasing; monitor documented as of this encounter (statuses as of 12/23/2021) [facility]09-[facility]-2020 History of Past illness Narrative* Problem Noted Date Resolved Date Parastomal hernia 05/29/2020 06/04/2020 Last Assessment & Plan: Assessment: s/p 05/29 parastomal hernia repair with TAR PLAN: -continue postoperative care Itching 01/11/2018 02/18/2018 Insomnia 01/11/2018 09/18/2018 Abnormal echocardiogram 06/03/2017 09/02/20 17 SBO (small bowel obstruction) 01/25/2017 Abdominal pain 01/25/2017 01/25/2017 Overview: --01/24 Outside ER admit for 10 abd pain, decreased Colostomy output. CT 01/24/17 with new hernia in RLQ. --01/25 Pt states no abd pain/craming and pain 0/10, +stool output and tolerating liquids and solids. Plan for General Surg f/u outpatient for h/o SBO. 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 may need to increase FK and/or start low dose steroids Bronchopneumonia due to human metapneumovirus (h MPV) 01/14/2017 01/29/2017 Overview: -- presented as fever, cough, sinus NULL. -- RVP was (+) for Human metapneumovirus --CXR ? basilar atalectasis v pneumonia; --CT sinus acute sinusitis - u/a C&S neg - had persistent fevers and received 2 days of zosyn (01/16-01/17); -- zosyn was dc'd with all cultures being neg and she remained afebrile -- developed hypoxia with a positive desat study -- DC'd Home with O2 f/u 01/20/[address] Joe RBBB (right bundle branch block) 09/24/2016 05/18/2018 Abnormality of gait 09/11/2016 01/21/2017 Secondary adrenal insufficiency 09/07/2016 04/27/2018 Physical deconditioning 10/01/2015 09/07/20 16 Overview: Per LDT 10/30/15 fci charges Diarrhea 09/11/2015 01/21/2017 Overview: --increased watery stool output through ostomy; 01/16: c-diff neg --start imodium BID Acute pulmonary embolism 08/06/2015 016 Overview: --Patient presented with pleuritic Chest Pain, Heparin gtt initiated until PE ruled out --Negative for PE CT with PE protocol. Heparin drip was discontinued. 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 --c/o blood in urine & dysuria. 2+ Hb on UA. Check BK urine. Empiric cipro started --07/08- symptoms improving --07/09: +BK (162,000) copies: continue cipro for tx. 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 Treated w ganciclovir. Plan: - continue acyclovir - monitor tac levels Dysmetabolic syndrome X 09/07/20 16 Obesity 09/08/2017 Overview: Obesity class III Body mass index is 32.09 kg/(m^2). 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 Treated with vori, then changed to posa d/t presumed resistance. Repeat CT chest 10/12/14 improved. 12/14/14 CT clear --ppx posa PFO (patent foramen ovale) 11/06 Obstructive lung disease (generalized) 02/04/2016 Overview: --monitor. No h/o smoking. Not currently on any treatment at this time. Reduced FEV1 and DLCO. recent Pneumothorax on right Overview: --right sided chest pain that radiates to the scapula. Worse with deep breath. Scapula tender to palpation. -- CXR showedsmall right apical pneumothorax. EKG unremarkable. Cardiac enzymes negative. --Right apical pneumothorax most likely cause of her chest pain. No respiratory distress. On room air. --11/30 CXR shows pneumo no longer visible. 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 food related vs GVHD; pt cutting back on snacking today; on GVHD diet (GI soft/fiber controlled). --stool [id number] 07/05 (down from 2500ml 07/04). Some blood in stool overnight 07/05; platelets transfused. No blood noted afterward. --increased stool 1725ml 07/06. No colonoscopy; continue to hold off on ECP; 07/09-stool output decreasing; monitor documented as of this encounter (statuses as of 12/23/2021) [facility]09-[facility]-2020 History of Past illness Narrative* Problem Noted Date Resolved Date Parastomal hernia 05/29/2020 06/04/2020 Last Assessment & Plan: Assessment: s/p 05/29 parastomal hernia repair with TAR PLAN: -continue postoperative care Itching 01/11/2018 02/18/2018 Insomnia 01/11/2018 09/18/2018 Abnormal echocardiogram 06/03/2017 09/02/20 17 SBO (small bowel obstruction) 01/25/2017 Abdominal pain 01/25/2017 01/25/2017 Overview: --01/24 Outside ER admit for 10 abd pain, decreased Colostomy output. CT 01/24/17 with new hernia in RLQ. --01/25 Pt states no abd pain/craming and pain 0/10, +stool output and tolerating liquids and solids. Plan for General Surg f/u outpatient for h/o SBO. 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 may need to increase FK and/or start low dose steroids Bronchopneumonia due to human metapneumovirus (h MPV) 01/14/2017 01/29/2017 Overview: -- presented as fever, cough, sinus NULL. -- RVP was (+) for Human metapneumovirus --CXR ? basilar atalectasis v pneumonia; --CT sinus acute sinusitis - u/a C&S neg - had persistent fevers and received 2 days of zosyn (01/16-01/17); -- zosyn was dc'd with all cultures being neg and she remained afebrile -- developed hypoxia with a positive desat study -- DC'd Home with O2 f/u 01/20/[address] Tatyana KIM (right bundle branch block) 09/24/2016 05/18/2018 Abnormality of gait 09/11/2016 01/21/2017 Secondary adrenal insufficiency 09/07/2016 04/27/2018 Physical deconditioning 10/01/2015 09/07/20 16 Overview: Per LDT 10/30/15 fci charges Diarrhea 09/11/2015 01/21/2017 Overview: --increased watery stool output through ostomy; 01/16: c-diff neg --start imodium BID Acute pulmonary embolism 08/06/2015 016 Overview: --Patient presented with pleuritic Chest Pain, Heparin gtt initiated until PE ruled out --Negative for PE CT with PE protocol. Heparin drip was discontinued. 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 --c/o blood in urine & dysuria. 2+ Hb on UA. Check BK urine. Empiric cipro started --07/08- symptoms improving --07/09: +BK (162,000) copies: continue cipro for tx. 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 Treated w ganciclovir. Plan: - continue acyclovir - monitor tac levels Dysmetabolic syndrome X 09/07/20 16 Obesity 09/08/2017 Overview: Obesity class III Body mass index is 32.09 kg/(m^2). 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 Treated with vori, then changed to posa d/t presumed resistance. Repeat CT chest 10/12/14 improved. 12/14/14 CT clear --ppx posa PFO (patent foramen ovale) 11/06 Obstructive lung disease (generalized) 02/04/2016 Overview: --monitor. No h/o smoking. Not currently on any treatment at this time. Reduced FEV1 and DLCO. recent Pneumothorax on right Overview: --right sided chest pain that radiates to the scapula. Worse with deep breath. Scapula tender to palpation. -- CXR showedsmall right apical pneumothorax. EKG unremarkable. Cardiac enzymes negative. --Right apical pneumothorax most likely cause of her chest pain. No respiratory distress. On room air. --11/30 CXR shows pneumo no longer visible. 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 food related vs GVHD; pt cutting back on snacking today; on GVHD diet (GI soft/fiber controlled). --stool [id number] 07/05 (down from 2500ml 07/04). Some blood in stool overnight 07/05; platelets transfused. No blood noted afterward. --increased stool 1725ml 07/06. No colonoscopy; continue to hold off on ECP; 07/09-stool output decreasing; monitor documented as of this encounter (statuses as of 01/02/2022) [facility]09-09-2020 History of Past illness Narrative* Problem Noted Date Resolved Date Parastomal hernia 05/29/2020 06/04/2020 Last Assessment & Plan: Assessment: s/p 05/29 parastomal hernia repair with TAR PLAN: -continue postoperative care Itching 01/11/2018 02/18/2018 Insomnia 01/11/2018 09/18/2018 Abnormal echocardiogram 06/03/2017 09/02/20 17 SBO (small bowel obstruction) 01/25/2017 Abdominal pain 01/25/2017 01/25/2017 Overview: --5/ Outside ER admit for 10/10 abd pain, decreased Colostomy output. CT 01/24/17 with new hernia in RLQ. --5/8 Pt states no abd pain/craming and pain 0/10, +stool output and tolerating liquids and solids. Plan for General Surg f/u outpatient for h/o SBO. 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 may need to increase FK and/or start low dose steroids Bronchopneumonia due to human metapneumovirus (h MPV) 01/14/2017 01/29/2017 Overview: -- presented as fever, cough, sinus NULL. -- RVP was (+) for Human metapneumovirus --CXR ? basilar atalectasis v pneumonia; --CT sinus acute sinusitis - u/a C&S neg - had persistent fevers and received 2 days of zosyn (01/16-01/17); -- zosyn was dc'd with all cultures being neg and she remained afebrile -- developed hypoxia with a positive desat study -- DC'd Home with O2 f/u 01/20/[address] Tatyana KIM (right bundle branch block) 09/24/2016 05/18/2018 Abnormality of gait 09/11/2016 01/21/2017 Secondary adrenal insufficiency 09/07/2016 04/27/2018 Physical deconditioning 10/01/2015 09/07/20 16 Overview: Per LDT 10/30/15 fci charges Diarrhea 09/11/2015 01/21/2017 Overview: --increased watery stool output through ostomy; 01/16: c-diff neg --start imodium BID Acute pulmonary embolism 08/06/2015 016 Overview: --Patient presented with pleuritic Chest Pain, Heparin gtt initiated until PE ruled out --Negative for PE CT with PE protocol. Heparin drip was discontinued. 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 --c/o blood in urine & dysuria. 2+ Hb on UA. Check BK urine. Empiric cipro started --07/08- symptoms improving --07/09: +BK (162,000) copies: continue cipro for tx. 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 Treated w ganciclovir. Plan: - continue acyclovir - monitor tac levels Dysmetabolic syndrome X 09/07/20 16 Obesity 09/08/2017 Overview: Obesity class III Body mass index is 32.09 kg/(m^2). 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 Treated with vori, then changed to posa d/t presumed resistance. Repeat CT chest 10/12/14 improved. 12/14/14 CT clear --ppx posa PFO (patent foramen ovale) 11/06 Obstructive lung disease (generalized) 02/04/2016 Overview: --monitor. No h/o smoking. Not currently on any treatment at this time. Reduced FEV1 and DLCO. recent Pneumothorax on right Overview: --right sided chest pain that radiates to the scapula. Worse with deep breath. Scapula tender to palpation. -- CXR showedsmall right apical pneumothorax. EKG unremarkable. Cardiac enzymes negative. --Right apical pneumothorax most likely cause of her chest pain. No respiratory distress. On room air. --11/30 CXR shows pneumo no longer visible. 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 food related vs GVHD; pt cutting back on snacking today; on GVHD diet (GI soft/fiber controlled). --stool [id number] 07/05 (down from 2500ml 07/04). Some blood in stool overnight 07/05; platelets transfused. No blood noted afterward. --increased stool 1725ml 07/06. No colonoscopy; continue to hold off on ECP; 07/09-stool output decreasing; monitor documented as of this encounter (statuses as of 01/15/2022) [facility]09-09-2020 History of Past illness Narrative* Problem Noted Date Resolved Date Parastomal hernia 05/29/2020 06/04/2020 Last Assessment & Plan: Assessment: s/p 05/29 parastomal hernia repair with TAR PLAN: -continue postoperative care Itching 01/11/2018 02/18/2018 Insomnia 01/11/2018 09/18/2018 Abnormal echocardiogram 06/03/2017 09/02/20 17 SBO (small bowel obstruction) 01/25/2017 Abdominal pain 01/25/2017 01/25/2017 Overview: --01/24 Outside ER admit for 10/10 abd pain, decreased Colostomy output. CT 01/24/17 with new hernia in RLQ. --58 Pt states no abd pain/craming and pain 0/10, +stool output and tolerating liquids and solids. Plan for General Surg f/u outpatient for h/o SBO. 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 may need to increase FK and/or start low dose steroids Bronchopneumonia due to human metapneumovirus (h MPV) 01/14/2017 01/29/2017 Overview: -- presented as fever, cough, sinus NULL. -- RVP was (+) for Human metapneumovirus --CXR ? basilar atalectasis v pneumonia; --CT sinus acute sinusitis - u/a C&S neg - had persistent fevers and received 2 days of zosyn (01/16-01/17); -- zosyn was dc'd with all cultures being neg and she remained afebrile -- developed hypoxia with a positive desat study -- DC'd Home with O2 f/u 01/20/[address] Tatyana KIM (right bundle branch block) 09/24/2016 05/18/2018 Abnormality of gait 09/11/2016 01/21/2017 Secondary adrenal insufficiency 09/07/2016 04/27/2018 Physical deconditioning 10/01/2015 09/07/20 16 Overview: Per LDT 10/30/15 fci charges Diarrhea 09/11/2015 01/21/2017 Overview: --increased watery stool output through ostomy; 01/16: c-diff neg --start imodium BID Acute pulmonary embolism 08/06/2015 12/19/2 016 Overview: --Patient presented with pleuritic Chest Pain, Heparin gtt initiated until PE ruled out --Negative for PE CT with PE protocol. Heparin drip was discontinued. 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 --c/o blood in urine & dysuria. 2+ Hb on UA. Check BK urine. Empiric cipro started --07/08- symptoms improving --07/09: +BK (162,000) copies: continue cipro for tx. 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 Treated w ganciclovir. Plan: - continue acyclovir - monitor tac levels Dysmetabolic syndrome X 09/07/20 16 Obesity 09/08/2017 Overview: Obesity class III Body mass index is 32.09 kg/(m^2). 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 Treated with vori, then changed to posa d/t presumed resistance. Repeat CT chest 10/12/14 improved. 12/14/14 CT clear --ppx posa PFO (patent foramen ovale) 11/06 Obstructive lung disease (generalized) 02/04/2016 Overview: --monitor. No h/o smoking. Not currently on any treatment at this time. Reduced FEV1 and DLCO. recent Pneumothorax on right Overview: --right sided chest pain that radiates to the scapula. Worse with deep breath. Scapula tender to palpation. -- CXR showedsmall right apical pneumothorax. EKG unremarkable. Cardiac enzymes negative. --Right apical pneumothorax most likely cause of her chest pain. No respiratory distress. On room air. --11/30 CXR shows pneumo no longer visible. 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 food related vs GVHD; pt cutting back on snacking today; on GVHD diet (GI soft/fiber controlled). --stool [id number] 07/05 (down from 2500ml 07/04). Some blood in stool overnight 07/05; platelets transfused. No blood noted afterward. --increased stool 1725ml 07/06. No colonoscopy; continue to hold off on ECP; 07/09-stool output decreasing; monitor documented as of this encounter (statuses as of 01/16/2022) [facility]09-09-2020 History of Past illness Narrative* Problem Noted Date Resolved Date Parastomal hernia 05/29/2020 06/04/2020 Last Assessment & Plan: Assessment: s/p 05/29 parastomal hernia repair with TAR PLAN: -continue postoperative care Itching 01/11/2018 02/18/2018 Insomnia 01/11/2018 09/18/2018 Abnormal echocardiogram 06/03/2017 09/02/20 17 SBO (small bowel obstruction) 01/25/2017 Abdominal pain 01/25/2017 01/25/2017 Overview: --01/24 Outside ER admit for 06/29 abd pain, decreased Colostomy output. CT 01/24/17 with new hernia in RLQ. --01/25 Pt states no abd pain/craming and pain 0/10, +stool output and tolerating liquids and solids. Plan for General Surg f/u outpatient for h/o SBO. 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 may need to increase FK and/or start low dose steroids Bronchopneumonia due to human metapneumovirus (h MPV) 01/14/2017 01/29/2017 Overview: -- presented as fever, cough, sinus NULL. -- RVP was (+) for Human metapneumovirus --CXR ? basilar atalectasis v pneumonia; --CT sinus acute sinusitis - u/a C&S neg - had persistent fevers and received 2 days of zosyn (01/16-01/17); -- zosyn was dc'd with all cultures being neg and she remained afebrile -- developed hypoxia with a positive desat study -- DC'd Home with O2 f/u 01/20/[address] Tatyana KIM (right bundle branch block) 09/24/2016 05/18/2018 Abnormality of gait 09/11/2016 01/21/2017 Secondary adrenal insufficiency 09/07/2016 04/27/2018 Physical deconditioning 10/01/2015 09/07/20 16 Overview: Per LDT 10/30/15 fci charges Diarrhea 09/11/2015 01/21/2017 Overview: --increased watery stool output through ostomy; 01/16: c-diff neg --start imodium BID Acute pulmonary embolism 08/06/2015 016 Overview: --Patient presented with pleuritic Chest Pain, Heparin gtt initiated until PE ruled out --Negative for PE CT with PE protocol. Heparin drip was discontinued. 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 --c/o blood in urine & dysuria. 2+ Hb on UA. Check BK urine. Empiric cipro started --07/08- symptoms improving --07/09: +BK (162,000) copies: continue cipro for tx. 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 Treated w ganciclovir. Plan: - continue acyclovir - monitor tac levels Dysmetabolic syndrome X 09/07/20 16 Obesity 09/08/2017 Overview: Obesity class III Body mass index is 32.09 kg/(m^2). 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 Treated with vori, then changed to posa d/t presumed resistance. Repeat CT chest 10/12/14 improved. 12/14/14 CT clear --ppx posa PFO (patent foramen ovale) 11/06 Obstructive lung disease (generalized) 02/04/2016 Overview: --monitor. No h/o smoking. Not currently on any treatment at this time. Reduced FEV1 and DLCO. recent Pneumothorax on right Overview: --right sided chest pain that radiates to the scapula. Worse with deep breath. Scapula tender to palpation. -- CXR showedsmall right apical pneumothorax. EKG unremarkable. Cardiac enzymes negative. --Right apical pneumothorax most likely cause of her chest pain. No respiratory distress. On room air. --11/30 CXR shows pneumo no longer visible. 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 food related vs GVHD; pt cutting back on snacking today; on GVHD diet (GI soft/fiber controlled). --stool [id number] 07/05 (down from 2500ml 07/04). Some blood in stool overnight 07/05; platelets transfused. No blood noted afterward. --increased stool 1725ml 07/06. No colonoscopy; continue to hold off on ECP; 07/09-stool output decreasing; monitor documented as of this encounter (statuses as of 01/16/2022) [facility]09-09-2020 History of Past illness Narrative* Problem Noted Date Resolved Date Parastomal hernia 05/29/2020 06/04/2020 Last Assessment & Plan: Assessment: s/p 05/29 parastomal hernia repair with TAR PLAN: -continue postoperative care Itching 01/11/2018 02/18/2018 Insomnia 01/11/2018 09/18/2018 Abnormal echocardiogram 06/03/2017 09/02/20 17 SBO (small bowel obstruction) 01/25/2017 Abdominal pain 01/25/2017 01/25/2017 Overview: --01/24 Outside ER admit for 06/29 abd pain, decreased Colostomy output. CT 01/24/17 with new hernia in RLQ. --01/25 Pt states no abd pain/craming and pain 0/10, +stool output and tolerating liquids and solids. Plan for General Surg f/u outpatient for h/o SBO. 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 may need to increase FK and/or start low dose steroids Bronchopneumonia due to human metapneumovirus (h MPV) 01/14/2017 01/29/2017 Overview: -- presented as fever, cough, sinus NULL. -- RVP was (+) for Human metapneumovirus --CXR ? basilar atalectasis v pneumonia; --CT sinus acute sinusitis - u/a C&S neg - had persistent fevers and received 2 days of zosyn (01/16-01/17); -- zosyn was dc'd with all cultures being neg and she remained afebrile -- developed hypoxia with a positive desat study -- DC'd Home with O2 f/u 01/20/[address] Joe RBBB (right bundle branch block) 09/24/2016 05/18/2018 Abnormality of gait 09/11/2016 01/21/2017 Secondary adrenal insufficiency 09/07/2016 04/27/2018 Physical deconditioning 10/01/2015 09/07/20 16 Overview: Per LDT 10/30/15 fci charges Diarrhea 09/11/2015 01/21/2017 Overview: --increased watery stool output through ostomy; 01/16: c-diff neg --start imodium BID Acute pulmonary embolism 08/06/2015 016 Overview: --Patient presented with pleuritic Chest Pain, Heparin gtt initiated until PE ruled out --Negative for PE CT with PE protocol. Heparin drip was discontinued. 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 --c/o blood in urine & dysuria. 2+ Hb on UA. Check BK urine. Empiric cipro started --07/08- symptoms improving --07/09: +BK (162,000) copies: continue cipro for tx. 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 Treated w ganciclovir. Plan: - continue acyclovir - monitor tac levels Dysmetabolic syndrome X 09/07/20 16 Obesity 09/08/2017 Overview: Obesity class III Body mass index is 32.09 kg/(m^2). 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 Treated with vori, then changed to posa d/t presumed resistance. Repeat CT chest 10/12/14 improved. 12/14/14 CT clear --ppx posa PFO (patent foramen ovale) 11/06 Obstructive lung disease (generalized) 02/04/2016 Overview: --monitor. No h/o smoking. Not currently on any treatment at this time. Reduced FEV1 and DLCO. recent Pneumothorax on right Overview: --right sided chest pain that radiates to the scapula. Worse with deep breath. Scapula tender to palpation. -- CXR showedsmall right apical pneumothorax. EKG unremarkable. Cardiac enzymes negative. --Right apical pneumothorax most likely cause of her chest pain. No respiratory distress. On room air. --11/30 CXR shows pneumo no longer visible. 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 food related vs GVHD; pt cutting back on snacking today; on GVHD diet (GI soft/fiber controlled). --stool [id number] 07/05 (down from 2500ml 07/04). Some blood in stool overnight 07/05; platelets transfused. No blood noted afterward. --increased stool 1725ml 07/06. No colonoscopy; continue to hold off on ECP; 07/09-stool output decreasing; monitor documented as of this encounter (statuses as of 01/19/2022) [facility]09-09-2020 History of Past illness Narrative* Problem Noted Date Resolved Date Parastomal hernia 05/29/2020 06/04/2020 Last Assessment & Plan: Assessment: s/p 05/29 parastomal hernia repair with TAR PLAN: -continue postoperative care Itching 01/11/2018 02/18/2018 Insomnia 01/11/2018 09/18/2018 Abnormal echocardiogram 06/03/2017 09/02/20 17 SBO (small bowel obstruction) 01/25/2017 Abdominal pain 01/25/2017 01/25/2017 Overview: --01/24 Outside ER admit for 06/29 abd pain, decreased Colostomy output. CT 01/24/17 with new hernia in RLQ. --5 Pt states no abd pain/craming and pain 0/10, +stool output and tolerating liquids and solids. Plan for General Surg f/u outpatient for h/o SBO. 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 may need to increase FK and/or start low dose steroids Bronchopneumonia due to human metapneumovirus (h MPV) 01/14/2017 01/29/2017 Overview: -- presented as fever, cough, sinus NULL. -- RVP was (+) for Human metapneumovirus --CXR ? basilar atalectasis v pneumonia; --CT sinus acute sinusitis - u/a C&S neg - had persistent fevers and received 2 days of zosyn (01/16-01/17); -- zosyn was dc'd with all cultures being neg and she remained afebrile -- developed hypoxia with a positive desat study -- DC'd Home with O2 f/u 01/20/[address] Tatyana KIM (right bundle branch block) 09/24/2016 05/18/2018 Abnormality of gait 09/11/2016 01/21/2017 Secondary adrenal insufficiency 09/07/2016 04/27/2018 Physical deconditioning 10/01/2015 09/07/20 16 Overview: Per LDT 10/30/15 fci charges Diarrhea 09/11/2015 01/21/2017 Overview: --increased watery stool output through ostomy; 01/16: c-diff neg --start imodium BID Acute pulmonary embolism 08/06/2015 016 Overview: --Patient presented with pleuritic Chest Pain, Heparin gtt initiated until PE ruled out --Negative for PE CT with PE protocol. Heparin drip was discontinued. 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 --c/o blood in urine & dysuria. 2+ Hb on UA. Check BK urine. Empiric cipro started --07/08- symptoms improving --07/09: +BK (162,000) copies: continue cipro for tx. 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 Treated w ganciclovir. Plan: - continue acyclovir - monitor tac levels Dysmetabolic syndrome X 09/07/20 Obesity 09/08/2017 Overview: Obesity class III Body mass index is 32.09 kg/(m^2). 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 Treated with vori, then changed to posa d/t presumed resistance. Repeat CT chest 10/12/14 improved. 12/14/14 CT clear --ppx posa PFO (patent foramen ovale) 11/06 Obstructive lung disease (generalized) 02/04/2016 Overview: --monitor. No h/o smoking. Not currently on any treatment at this time. Reduced FEV1 and DLCO. recent Pneumothorax on right Overview: --right sided chest pain that radiates to the scapula. Worse with deep breath. Scapula tender to palpation. -- CXR showedsmall right apical pneumothorax. EKG unremarkable. Cardiac enzymes negative. --Right apical pneumothorax most likely cause of her chest pain. No respiratory distress. On room air. --11/30 CXR shows pneumo no longer visible. 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 food related vs GVHD; pt cutting back on snacking today; on GVHD diet (GI soft/fiber controlled). --stool [id number] 07/05 (down from 2500ml 07/04). Some blood in stool overnight 07/05; platelets transfused. No blood noted afterward. --increased stool 1725ml 07/06. No colonoscopy; continue to hold off on ECP; 07/09-stool output decreasing; monitor documented as of this encounter (statuses as of 01/20/2022) [facility]09-09-2020 History of Past illness Narrative* Problem Noted Date Resolved Date Parastomal hernia 05/29/2020 06/04/2020 Last Assessment & Plan: Assessment: s/p 05/29 parastomal hernia repair with TAR PLAN: -continue postoperative care Itching 01/11/2018 02/18/2018 Insomnia 01/11/2018 09/18/2018 Abnormal echocardiogram 06/03/2017 09/02/20 17 SBO (small bowel obstruction) 01/25/2017 Abdominal pain 01/25/2017 01/25/2017 Overview: --5/7 Outside ER admit for 10/10 abd pain, decreased Colostomy output. CT 01/24/17 with new hernia in RLQ. --5/8 Pt states no abd pain/craming and pain 0/10, +stool output and tolerating liquids and solids. Plan for General Surg f/u outpatient for h/o SBO. 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 may need to increase FK and/or start low dose steroids Bronchopneumonia due to human metapneumovirus (h MPV) 01/14/2017 01/29/2017 Overview: -- presented as fever, cough, sinus NULL. -- RVP was (+) for Human metapneumovirus --CXR ? basilar atalectasis v pneumonia; --CT sinus acute sinusitis - u/a C&S neg - had persistent fevers and received 2 days of zosyn (01/16-01/17); -- zosyn was dc'd with all cultures being neg and she remained afebrile -- developed hypoxia with a positive desat study -- DC'd Home with O2 f/u 01/20/[address] Tatyana KIM (right bundle branch block) 09/24/2016 05/18/2018 Abnormality of gait 09/11/2016 01/21/2017 Secondary adrenal insufficiency 09/07/2016 04/27/2018 Physical deconditioning 10/01/2015 09/07/20 16 Overview: Per LDT 10/30/15 fci charges Diarrhea 09/11/2015 01/21/2017 Overview: --increased watery stool output through ostomy; 01/16: c-diff neg --start imodium BID Acute pulmonary embolism 08/06/2015 016 Overview: --Patient presented with pleuritic Chest Pain, Heparin gtt initiated until PE ruled out --Negative for PE CT with PE protocol. Heparin drip was discontinued. 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 --c/o blood in urine & dysuria. 2+ Hb on UA. Check BK urine. Empiric cipro started --07/08- symptoms improving --07/09: +BK (162,000) copies: continue cipro for tx. 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 Treated w ganciclovir. Plan: - continue acyclovir - monitor tac levels Dysmetabolic syndrome X 09/07/20 16 Obesity 09/08/2017 Overview: Obesity class III Body mass index is 32.09 kg/(m^2). 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 Treated with vori, then changed to posa d/t presumed resistance. Repeat CT chest 10/12/14 improved. 12/14/14 CT clear --ppx posa PFO (patent foramen ovale) 11/06 Obstructive lung disease (generalized) 02/04/2016 Overview: --monitor. No h/o smoking. Not currently on any treatment at this time. Reduced FEV1 and DLCO. recent Pneumothorax on right Overview: --right sided chest pain that radiates to the scapula. Worse with deep breath. Scapula tender to palpation. -- CXR showedsmall right apical pneumothorax. EKG unremarkable. Cardiac enzymes negative. --Right apical pneumothorax most likely cause of her chest pain. No respiratory distress. On room air. --11/30 CXR shows pneumo no longer visible. 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 food related vs GVHD; pt cutting back on snacking today; on GVHD diet (GI soft/fiber controlled). --stool [id number] 07/05 (down from 2500ml 07/04). Some blood in stool overnight 07/05; platelets transfused. No blood noted afterward. --increased stool 1725ml 07/06. No colonoscopy; continue to hold off on ECP; 07/09-stool output decreasing; monitor documented as of this encounter (statuses as of 01/20/2022) [facility]09-09-2020 History of Past illness Narrative* Problem Noted Date Resolved Date Parastomal hernia 05/29/2020 06/04/2020 Last Assessment & Plan: Assessment: s/p 05/29 parastomal hernia repair with TAR PLAN: -continue postoperative care Itching 01/11/2018 02/18/2018 Insomnia 01/11/2018 09/18/2018 Abnormal echocardiogram 06/03/2017 09/02/20 17 SBO (small bowel obstruction) 01/25/2017 Abdominal pain 01/25/2017 01/25/2017 Overview: --01/24 Outside ER admit for 06/29 abd pain, decreased Colostomy output. CT 01/24/17 with new hernia in RLQ. --5/8 Pt states no abd pain/craming and pain 0/10, +stool output and tolerating liquids and solids. Plan for General Surg f/u outpatient for h/o SBO. 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 may need to increase FK and/or start low dose steroids Bronchopneumonia due to human metapneumovirus (h MPV) 01/14/2017 01/29/2017 Overview: -- presented as fever, cough, sinus NULL. -- RVP was (+) for Human metapneumovirus --CXR ? basilar atalectasis v pneumonia; --CT sinus acute sinusitis - u/a C&S neg - had persistent fevers and received 2 days of zosyn (01/16-01/17); -- zosyn was dc'd with all cultures being neg and she remained afebrile -- developed hypoxia with a positive desat study -- DC'd Home with O2 f/u 01/20/[address] Tatyana KIM (right bundle branch block) 09/24/2016 05/18/2018 Abnormality of gait 09/11/2016 01/21/2017 Secondary adrenal insufficiency 09/07/2016 04/27/2018 Physical deconditioning 10/01/2015 09/07/20 16 Overview: Per LDT 10/30/15 fci charges Diarrhea 09/11/2015 01/21/2017 Overview: --increased watery stool output through ostomy; 01/16: c-diff neg --start imodium BID Acute pulmonary embolism 08/06/2015 016 Overview: --Patient presented with pleuritic Chest Pain, Heparin gtt initiated until PE ruled out --Negative for PE CT with PE protocol. Heparin drip was discontinued. 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 --c/o blood in urine & dysuria. 2+ Hb on UA. Check BK urine. Empiric cipro started --07/08- symptoms improving --07/09: +BK (162,000) copies: continue cipro for tx. 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 Treated w ganciclovir. Plan: - continue acyclovir - monitor tac levels Dysmetabolic syndrome X 09/07/20 16 Obesity 09/08/2017 Overview: Obesity class III Body mass index is 32.09 kg/(m^2). 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 Treated with vori, then changed to posa d/t presumed resistance. Repeat CT chest 10/12/14 improved. 12/14/14 CT clear --ppx posa PFO (patent foramen ovale) 11/06 Obstructive lung disease (generalized) 02/04/2016 Overview: --monitor. No h/o smoking. Not currently on any treatment at this time. Reduced FEV1 and DLCO. recent Pneumothorax on right Overview: --right sided chest pain that radiates to the scapula. Worse with deep breath. Scapula tender to palpation. -- CXR showedsmall right apical pneumothorax. EKG unremarkable. Cardiac enzymes negative. --Right apical pneumothorax most likely cause of her chest pain. No respiratory distress. On room air. --11/30 CXR shows pneumo no longer visible. 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 food related vs GVHD; pt cutting back on snacking today; on GVHD diet (GI soft/fiber controlled). --stool [id number] 07/05 (down from 2500ml 07/04). Some blood in stool overnight 07/05; platelets transfused. No blood noted afterward. --increased stool 1725ml 07/06. No colonoscopy; continue to hold off on ECP; 07/09-stool output decreasing; monitor documented as of this encounter (statuses as of 01/29/2022) [facility]09-09-2020 History of Past illness Narrative* Problem Noted Date Resolved Date Parastomal hernia 05/29/2020 06/04/2020 Last Assessment & Plan: Assessment: s/p 05/29 parastomal hernia repair with TAR PLAN: -continue postoperative care Itching 01/11/2018 02/18/2018 Insomnia 01/11/2018 09/18/2018 Abnormal echocardiogram 06/03/2017 09/02/20 17 SBO (small bowel obstruction) 01/25/2017 Abdominal pain 01/25/2017 01/25/2017 Overview: --01/24 Outside ER admit for 06/29 abd pain, decreased Colostomy output. CT 01/24/17 with new hernia in RLQ. --01/25 Pt states no abd pain/craming and pain 0/10, +stool output and tolerating liquids and solids. Plan for General Surg f/u outpatient for h/o SBO. 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 may need to increase FK and/or start low dose steroids Bronchopneumonia due to human metapneumovirus (h MPV) 01/14/2017 01/29/2017 Overview: -- presented as fever, cough, sinus NULL. -- RVP was (+) for Human metapneumovirus --CXR ? basilar atalectasis v pneumonia; --CT sinus acute sinusitis - u/a C&S neg - had persistent fevers and received 2 days of zosyn (01/16-01/17); -- zosyn was dc'd with all cultures being neg and she remained afebrile -- developed hypoxia with a positive desat study -- DC'd Home with O2 f/u 01/20/[address] Joe RBBB (right bundle branch block) 09/24/2016 05/18/2018 Abnormality of gait 09/11/2016 01/21/2017 Secondary adrenal insufficiency 09/07/2016 04/27/2018 Physical deconditioning 10/01/2015 09/07/20 16 Overview: Per LDT 10/30/15 fci charges Diarrhea 09/11/2015 01/21/2017 Overview: --increased watery stool output through ostomy; 01/16: c-diff neg --start imodium BID Acute pulmonary embolism 08/06/2015 016 Overview: --Patient presented with pleuritic Chest Pain, Heparin gtt initiated until PE ruled out --Negative for PE CT with PE protocol. Heparin drip was discontinued. 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 --c/o blood in urine & dysuria. 2+ Hb on UA. Check BK urine. Empiric cipro started --07/08- symptoms improving --07/09: +BK (162,000) copies: continue cipro for tx. 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 Treated w ganciclovir. Plan: - continue acyclovir - monitor tac levels Dysmetabolic syndrome X 09/07/20 16 Obesity 09/08/2017 Overview: Obesity class III Body mass index is 32.09 kg/(m^2). 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 Treated with vori, then changed to posa d/t presumed resistance. Repeat CT chest 10/12/14 improved. 12/14/14 CT clear --ppx posa PFO (patent foramen ovale) 11/06 Obstructive lung disease (generalized) 02/04/2016 Overview: --monitor. No h/o smoking. Not currently on any treatment at this time. Reduced FEV1 and DLCO. recent Pneumothorax on right Overview: --right sided chest pain that radiates to the scapula. Worse with deep breath. Scapula tender to palpation. -- CXR showedsmall right apical pneumothorax. EKG unremarkable. Cardiac enzymes negative. --Right apical pneumothorax most likely cause of her chest pain. No respiratory distress. On room air. --11/30 CXR shows pneumo no longer visible. 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 food related vs GVHD; pt cutting back on snacking today; on GVHD diet (GI soft/fiber controlled). --stool [id number] 07/05 (down from 2500ml 07/04). Some blood in stool overnight 07/05; platelets transfused. No blood noted afterward. --increased stool 1725ml 07/06. No colonoscopy; continue to hold off on ECP; 07/09-stool output decreasing; monitor documented as of this encounter (statuses as of 01/31/2022) [facility]09-[facility]-2020 History of Past illness Narrative* Problem Noted Date Resolved Date Parastomal hernia 05/29/2020 06/04/2020 Last Assessment & Plan: Assessment: s/p 05/29 parastomal hernia repair with TAR PLAN: -continue postoperative care Itching 01/11/2018 02/18/2018 Insomnia 01/11/2018 09/18/2018 Abnormal echocardiogram 06/03/2017 09/02/20 17 SBO (small bowel obstruction) 01/25/2017 Abdominal pain 01/25/2017 01/25/2017 Overview: --01/24 Outside ER admit for 10/10 abd pain, decreased Colostomy output. CT 01/24/17 with new hernia in RLQ. --01/25 Pt states no abd pain/craming and pain 0/10, +stool output and tolerating liquids and solids. Plan for General Surg f/u outpatient for h/o SBO. 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 may need to increase FK and/or start low dose steroids Bronchopneumonia due to human metapneumovirus (h MPV) 01/14/2017 01/29/2017 Overview: -- presented as fever, cough, sinus NULL. -- RVP was (+) for Human metapneumovirus --CXR ? basilar atalectasis v pneumonia; --CT sinus acute sinusitis - u/a C&S neg - had persistent fevers and received 2 days of zosyn (01/16-01/17); -- zosyn was dc'd with all cultures being neg and she remained afebrile -- developed hypoxia with a positive desat study -- DC'd Home with O2 f/u 01/20/[address] Tatyana KIM (right bundle branch block) 09/24/2016 05/18/2018 Abnormality of gait 09/11/2016 01/21/2017 Secondary adrenal insufficiency 09/07/2016 04/27/2018 Physical deconditioning 10/01/2015 09/07/20 16 Overview: Per LDT 10/30/15 fci charges Diarrhea 09/11/2015 01/21/2017 Overview: --increased watery stool output through ostomy; 01/16: c-diff neg --start imodium BID Acute pulmonary embolism 08/06/2015 016 Overview: --Patient presented with pleuritic Chest Pain, Heparin gtt initiated until PE ruled out --Negative for PE CT with PE protocol. Heparin drip was discontinued. 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 --c/o blood in urine & dysuria. 2+ Hb on UA. Check BK urine. Empiric cipro started --07/08- symptoms improving --07/09: +BK (162,000) copies: continue cipro for tx. 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 Treated w ganciclovir. Plan: - continue acyclovir - monitor tac levels Dysmetabolic syndrome X 09/07/20 16 Obesity 09/08/2017 Overview: Obesity class III Body mass index is 32.09 kg/(m^2). 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 Treated with vori, then changed to posa d/t presumed resistance. Repeat CT chest 10/12/14 improved. 12/14/14 CT clear --ppx posa PFO (patent foramen ovale) 11/06 Obstructive lung disease (generalized) 02/04/2016 Overview: --monitor. No h/o smoking. Not currently on any treatment at this time. Reduced FEV1 and DLCO. recent Pneumothorax on right Overview: --right sided chest pain that radiates to the scapula. Worse with deep breath. Scapula tender to palpation. -- CXR showedsmall right apical pneumothorax. EKG unremarkable. Cardiac enzymes negative. --Right apical pneumothorax most likely cause of her chest pain. No respiratory distress. On room air. --11/30 CXR shows pneumo no longer visible. 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 food related vs GVHD; pt cutting back on snacking today; on GVHD diet (GI soft/fiber controlled). --stool [id number] 07/05 (down from 2500ml 07/04). Some blood in stool overnight 07/05; platelets transfused. No blood noted afterward. --increased stool 1725ml 07/06. No colonoscopy; continue to hold off on ECP; 07/09-stool output decreasing; monitor documented as of this encounter (statuses as of 02/02/2022) [facility]09-[facility]2020 History of Past illness Narrative* Problem Noted Date Resolved Date Parastomal hernia 05/29/2020 06/04/2020 Last Assessment & Plan: Assessment: s/p 05/29 parastomal hernia repair with TAR PLAN: -continue postoperative care Itching 01/11/2018 02/18/2018 Insomnia 01/11/2018 09/18/2018 Abnormal echocardiogram 06/03/2017 09/02/20 17 SBO (small bowel obstruction) 01/25/2017 Abdominal pain 01/25/2017 01/25/2017 Overview: --5/7 Outside ER admit for 10/10 abd pain, decreased Colostomy output. CT 01/24/17 with new hernia in RLQ. --5/8 Pt states no abd pain/craming and pain 0/10, +stool output and tolerating liquids and solids. Plan for General Surg f/u outpatient for h/o SBO. 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 may need to increase FK and/or start low dose steroids Bronchopneumonia due to human metapneumovirus (h MPV) 01/14/2017 01/29/2017 Overview: -- presented as fever, cough, sinus NULL. -- RVP was (+) for Human metapneumovirus --CXR ? basilar atalectasis v pneumonia; --CT sinus acute sinusitis - u/a C&S neg - had persistent fevers and received 2 days of zosyn (01/16-01/17); -- zosyn was dc'd with all cultures being neg and she remained afebrile -- developed hypoxia with a positive desat study -- DC'd Home with O2 f/u 01/20/[address] Tatyana KIM (right bundle branch block) 09/24/2016 05/18/2018 Abnormality of gait 09/11/2016 01/21/2017 Secondary adrenal insufficiency 09/07/2016 04/27/2018 Physical deconditioning 10/01/2015 09/07/20 16 Overview: Per LDT 10/30/15 fci charges Diarrhea 09/11/2015 01/21/2017 Overview: --increased watery stool output through ostomy; 01/16: c-diff neg --start imodium BID Acute pulmonary embolism 08/06/2015 016 Overview: --Patient presented with pleuritic Chest Pain, Heparin gtt initiated until PE ruled out --Negative for PE CT with PE protocol. Heparin drip was discontinued. 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 --c/o blood in urine & dysuria. 2+ Hb on UA. Check BK urine. Empiric cipro started --07/08- symptoms improving --07/09: +BK (162,000) copies: continue cipro for tx. 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 Treated w ganciclovir. Plan: - continue acyclovir - monitor tac levels Dysmetabolic syndrome X 09/07/20 16 Obesity 09/08/2017 Overview: Obesity class III Body mass index is 32.09 kg/(m^2). 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 Treated with vori, then changed to posa d/t presumed resistance. Repeat CT chest 10/12/14 improved. 12/14/14 CT clear --ppx posa PFO (patent foramen ovale) 11/06 Obstructive lung disease (generalized) 02/04/2016 Overview: --monitor. No h/o smoking. Not currently on any treatment at this time. Reduced FEV1 and DLCO. recent Pneumothorax on right Overview: --right sided chest pain that radiates to the scapula. Worse with deep breath. Scapula tender to palpation. -- CXR showedsmall right apical pneumothorax. EKG unremarkable. Cardiac enzymes negative. --Right apical pneumothorax most likely cause of her chest pain. No respiratory distress. On room air. --11/30 CXR shows pneumo no longer visible. 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 food related vs GVHD; pt cutting back on snacking today; on GVHD diet (GI soft/fiber controlled). --stool [id number] 07/05 (down from 2500ml 07/04). Some blood in stool overnight 07/05; platelets transfused. No blood noted afterward. --increased stool 1725ml 07/06. No colonoscopy; continue to hold off on ECP; 07/09-stool output decreasing; monitor documented as of this encounter (statuses as of 02/02/2022) [facility]09-09-2020 History of Past illness Narrative* Problem Noted Date Resolved Date Parastomal hernia 05/29/2020 06/04/2020 Last Assessment & Plan: Assessment: s/p 05/29 parastomal hernia repair with TAR PLAN: -continue postoperative care Itching 01/11/2018 02/18/2018 Insomnia 01/11/2018 09/18/2018 Abnormal echocardiogram 06/03/2017 09/02/20 17 SBO (small bowel obstruction) 01/25/2017 Abdominal pain 01/25/2017 01/25/2017 Overview: --01/24 Outside ER admit for 10 abd pain, decreased Colostomy output. CT 01/24/17 with new hernia in RLQ. --01/25 Pt states no abd pain/craming and pain 0/10, +stool output and tolerating liquids and solids. Plan for General Surg f/u outpatient for h/o SBO. 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 may need to increase FK and/or start low dose steroids Bronchopneumonia due to human metapneumovirus (h MPV) 01/14/2017 01/29/2017 Overview: -- presented as fever, cough, sinus NULL. -- RVP was (+) for Human metapneumovirus --CXR ? basilar atalectasis v pneumonia; --CT sinus acute sinusitis - u/a C&S neg - had persistent fevers and received 2 days of zosyn (01/16-01/17); -- zosyn was dc'd with all cultures being neg and she remained afebrile -- developed hypoxia with a positive desat study -- DC'd Home with O2 f/u 01/20/[address] Tatyana KIM (right bundle branch block) 09/24/2016 05/18/2018 Abnormality of gait 09/11/2016 01/21/2017 Secondary adrenal insufficiency 09/07/2016 04/27/2018 Physical deconditioning 10/01/2015 09/07/20 16 Overview: Per LDT 10/30/15 fci charges Diarrhea 09/11/2015 01/21/2017 Overview: --increased watery stool output through ostomy; 01/16: c-diff neg --start imodium BID Acute pulmonary embolism 08/06/2015 016 Overview: --Patient presented with pleuritic Chest Pain, Heparin gtt initiated until PE ruled out --Negative for PE CT with PE protocol. Heparin drip was discontinued. 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 --c/o blood in urine & dysuria. 2+ Hb on UA. Check BK urine. Empiric cipro started --07/08- symptoms improving --07/09: +BK (162,000) copies: continue cipro for tx. 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 Treated w ganciclovir. Plan: - continue acyclovir - monitor tac levels Dysmetabolic syndrome X 09/07/20 16 Obesity 09/08/2017 Overview: Obesity class III Body mass index is 32.09 kg/(m^2). 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 Treated with vori, then changed to posa d/t presumed resistance. Repeat CT chest 10/12/14 improved. 12/14/14 CT clear --ppx posa PFO (patent foramen ovale) 11/06 Obstructive lung disease (generalized) 02/04/2016 Overview: --monitor. No h/o smoking. Not currently on any treatment at this time. Reduced FEV1 and DLCO. recent Pneumothorax on right Overview: --right sided chest pain that radiates to the scapula. Worse with deep breath. Scapula tender to palpation. -- CXR showedsmall right apical pneumothorax. EKG unremarkable. Cardiac enzymes negative. --Right apical pneumothorax most likely cause of her chest pain. No respiratory distress. On room air. --11/30 CXR shows pneumo no longer visible. 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 food related vs GVHD; pt cutting back on snacking today; on GVHD diet (GI soft/fiber controlled). --stool [id number] 07/05 (down from 2500ml 07/04). Some blood in stool overnight 07/05; platelets transfused. No blood noted afterward. --increased stool 1725ml 07/06. No colonoscopy; continue to hold off on ECP; 07/09-stool output decreasing; monitor documented as of this encounter (statuses as of 02/02/2022) [facility]09-[facility]-2020 History of Past illness Narrative* Problem Noted Date Resolved Date Parastomal hernia 05/29/2020 06/04/2020 Last Assessment & Plan: Assessment: s/p 05/29 parastomal hernia repair with TAR PLAN: -continue postoperative care Itching 01/11/2018 02/18/2018 Insomnia 01/11/2018 09/18/2018 Abnormal echocardiogram 06/03/2017 09/02/20 17 SBO (small bowel obstruction) 01/25/2017 Abdominal pain 01/25/2017 01/25/2017 Overview: --01/24 Outside ER admit for 10 abd pain, decreased Colostomy output. CT 01/24/17 with new hernia in RLQ. --01/25 Pt states no abd pain/craming and pain 0/10, +stool output and tolerating liquids and solids. Plan for General Surg f/u outpatient for h/o SBO. 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 may need to increase FK and/or start low dose steroids Bronchopneumonia due to human metapneumovirus (h MPV) 01/14/2017 01/29/2017 Overview: -- presented as fever, cough, sinus NULL. -- RVP was (+) for Human metapneumovirus --CXR ? basilar atalectasis v pneumonia; --CT sinus acute sinusitis - u/a C&S neg - had persistent fevers and received 2 days of zosyn (01/16-01/17); -- zosyn was dc'd with all cultures being neg and she remained afebrile -- developed hypoxia with a positive desat study -- DC'd Home with O2 f/u 01/20/[address] Tatyana KIM (right bundle branch block) 09/24/2016 05/18/2018 Abnormality of gait 09/11/2016 01/21/2017 Secondary adrenal insufficiency 09/07/2016 04/27/2018 Physical deconditioning 10/01/2015 09/07/20 16 Overview: Per LDT 10/30/15 fci charges Diarrhea 09/11/2015 01/21/2017 Overview: --increased watery stool output through ostomy; 01/16: c-diff neg --start imodium BID Acute pulmonary embolism 08/06/2015 016 Overview: --Patient presented with pleuritic Chest Pain, Heparin gtt initiated until PE ruled out --Negative for PE CT with PE protocol. Heparin drip was discontinued. 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 --c/o blood in urine & dysuria. 2+ Hb on UA. Check BK urine. Empiric cipro started --07/08- symptoms improving --07/09: +BK (162,000) copies: continue cipro for tx. 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 Treated w ganciclovir. Plan: - continue acyclovir - monitor tac levels Dysmetabolic syndrome X 09/07/20 16 Obesity 09/08/2017 Overview: Obesity class III Body mass index is 32.09 kg/(m^2). 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 Treated with vori, then changed to posa d/t presumed resistance. Repeat CT chest 10/12/14 improved. 12/14/14 CT clear --ppx posa PFO (patent foramen ovale) 11/06 Obstructive lung disease (generalized) 02/04/2016 Overview: --monitor. No h/o smoking. Not currently on any treatment at this time. Reduced FEV1 and DLCO. recent Pneumothorax on right Overview: --right sided chest pain that radiates to the scapula. Worse with deep breath. Scapula tender to palpation. -- CXR showedsmall right apical pneumothorax. EKG unremarkable. Cardiac enzymes negative. --Right apical pneumothorax most likely cause of her chest pain. No respiratory distress. On room air. --11/30 CXR shows pneumo no longer visible. 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 food related vs GVHD; pt cutting back on snacking today; on GVHD diet (GI soft/fiber controlled). --stool [id number] 07/05 (down from 2500ml 07/04). Some blood in stool overnight 07/05; platelets transfused. No blood noted afterward. --increased stool 1725ml 07/06. No colonoscopy; continue to hold off on ECP; 07/09-stool output decreasing; monitor documented as of this encounter (statuses as of 02/03/2022) [facility]09-09-2020 History of Past illness Narrative* Problem Noted Date Resolved Date Parastomal hernia 05/29/2020 06/04/2020 Last Assessment & Plan: Assessment: s/p 05/29 parastomal hernia repair with TAR PLAN: -continue postoperative care Itching 01/11/2018 02/18/2018 Insomnia 01/11/2018 09/18/2018 Abnormal echocardiogram 06/03/2017 09/02/20 17 SBO (small bowel obstruction) 01/25/2017 Abdominal pain 01/25/2017 01/25/2017 Overview: --01/24 Outside ER admit for 06/29 abd pain, decreased Colostomy output. CT 01/24/17 with new hernia in RLQ. --01/25 Pt states no abd pain/craming and pain 0/10, +stool output and tolerating liquids and solids. Plan for General Surg f/u outpatient for h/o SBO. 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 may need to increase FK and/or start low dose steroids Bronchopneumonia due to human metapneumovirus (h MPV) 01/14/2017 01/29/2017 Overview: -- presented as fever, cough, sinus NULL. -- RVP was (+) for Human metapneumovirus --CXR ? basilar atalectasis v pneumonia; --CT sinus acute sinusitis - u/a C&S neg - had persistent fevers and received 2 days of zosyn (01/16-01/17); -- zosyn was dc'd with all cultures being neg and she remained afebrile -- developed hypoxia with a positive desat study -- DC'd Home with O2 f/u 01/20/[address] Joe RBBB (right bundle branch block) 09/24/2016 05/18/2018 Abnormality of gait 09/11/2016 01/21/2017 Secondary adrenal insufficiency 09/07/2016 04/27/2018 Physical deconditioning 10/01/2015 09/07/20 16 Overview: Per LDT 10/30/15 fci charges Diarrhea 09/11/2015 01/21/2017 Overview: --increased watery stool output through ostomy; 01/16: c-diff neg --start imodium BID Acute pulmonary embolism 08/06/2015 016 Overview: --Patient presented with pleuritic Chest Pain, Heparin gtt initiated until PE ruled out --Negative for PE CT with PE protocol. Heparin drip was discontinued. 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 --c/o blood in urine & dysuria. 2+ Hb on UA. Check BK urine. Empiric cipro started --07/08- symptoms improving --07/09: +BK (162,000) copies: continue cipro for tx. 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 Treated w ganciclovir. Plan: - continue acyclovir - monitor tac levels Dysmetabolic syndrome X 09/07/20 16 Obesity 09/08/2017 Overview: Obesity class III Body mass index is 32.09 kg/(m^2). 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 Treated with vori, then changed to posa d/t presumed resistance. Repeat CT chest 10/12/14 improved. 12/14/14 CT clear --ppx posa PFO (patent foramen ovale) 11/06 Obstructive lung disease (generalized) 02/04/2016 Overview: --monitor. No h/o smoking. Not currently on any treatment at this time. Reduced FEV1 and DLCO. recent Pneumothorax on right Overview: --right sided chest pain that radiates to the scapula. Worse with deep breath. Scapula tender to palpation. -- CXR showedsmall right apical pneumothorax. EKG unremarkable. Cardiac enzymes negative. --Right apical pneumothorax most likely cause of her chest pain. No respiratory distress. On room air. --11/30 CXR shows pneumo no longer visible. 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 food related vs GVHD; pt cutting back on snacking today; on GVHD diet (GI soft/fiber controlled). --stool [id number] 07/05 (down from 2500ml 07/04). Some blood in stool overnight 07/05; platelets transfused. No blood noted afterward. --increased stool 1725ml 07/06. No colonoscopy; continue to hold off on ECP; 07/09-stool output decreasing; monitor documented as of this encounter (statuses as of 02/09/2022) [facility]09-[facility]-2020 History of Past illness Narrative* Problem Noted Date Resolved Date Parastomal hernia 05/29/2020 06/04/2020 Last Assessment & Plan: Assessment: s/p 05/29 parastomal hernia repair with TAR PLAN: -continue postoperative care Itching 01/11/2018 02/18/2018 Insomnia 01/11/2018 09/18/2018 Abnormal echocardiogram 06/03/2017 09/02/20 17 SBO (small bowel obstruction) 01/25/2017 Abdominal pain 01/25/2017 01/25/2017 Overview: --01/24 Outside ER admit for 06/29 abd pain, decreased Colostomy output. CT 01/24/17 with new hernia in RLQ. --01/25 Pt states no abd pain/craming and pain 0/10, +stool output and tolerating liquids and solids. Plan for General Surg f/u outpatient for h/o SBO. 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 may need to increase FK and/or start low dose steroids Bronchopneumonia due to human metapneumovirus (h MPV) 01/14/2017 01/29/2017 Overview: -- presented as fever, cough, sinus NULL. -- RVP was (+) for Human metapneumovirus --CXR ? basilar atalectasis v pneumonia; --CT sinus acute sinusitis - u/a C&S neg - had persistent fevers and received 2 days of zosyn (01/16-01/17); -- zosyn was dc'd with all cultures being neg and she remained afebrile -- developed hypoxia with a positive desat study -- DC'd Home with O2 f/u 01/20/[address] Tatyana KMI (right bundle branch block) 09/24/2016 05/18/2018 Abnormality of gait 09/11/2016 01/21/2017 Secondary adrenal insufficiency 09/07/2016 04/27/2018 Type 2 diabetes mellitus wit h microalbuminuria, without long-term current use of insulin 07/02/2016 02/10/2022 Physical deconditioning 10/01/2015 09/07/20 16 Overview: Per LDT 10/30/15 fci charges Diarrhea 09/11/2015 01/21/2017 Overview: --increased watery stool output through ostomy; 01/16: c-diff neg --start imodium BID Acute pulmonary embolism 08/06/2015 016 Overview: --Patient presented with pleuritic Chest Pain, Heparin gtt initiated until PE ruled out --Negative for PE CT with PE protocol. Heparin drip was discontinued. 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 --c/o blood in urine & dysuria. 2+ Hb on UA. Check BK urine. Empiric cipro started --07/08- symptoms improving --07/09: +BK (162,000) copies: continue cipro for tx. 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 Treated w ganciclovir. Plan: - continue acyclovir - monitor tac levels Dysmetabolic syndrome X 09/07/20 16 Obesity 09/08/2017 Overview: Obesity class III Body mass index is 32.09 kg/(m^2). 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 Treated with vori, then changed to posa d/t presumed resistance. Repeat CT chest 10/12/14 improved. 12/14/14 CT clear --ppx posa PFO (patent foramen ovale) 11/06 Obstructive lung disease (generalized) 02/04/2016 Overview: --monitor. No h/o smoking. Not currently on any treatment at this time. Reduced FEV1 and DLCO. recent Pneumothorax on right Overview: --right sided chest pain that radiates to the scapula. Worse with deep breath. Scapula tender to palpation. -- CXR showedsmall right apical pneumothorax. EKG unremarkable. Cardiac enzymes negative. --Right apical pneumothorax most likely cause of her chest pain. No respiratory distress. On room air. --11/30 CXR shows pneumo no longer visible. 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 food related vs GVHD; pt cutting back on snacking today; on GVHD diet (GI soft/fiber controlled). --stool [id number] 07/05 (down from 2500ml 07/04). Some blood in stool overnight 07/05; platelets transfused. No blood noted afterward. --increased stool 1725ml 07/06. No colonoscopy; continue to hold off on ECP; 07/09-stool output decreasing; monitor documented as of this encounter (statuses as of 02/10/2022) [facility]09-[facility]2020 History of Past illness Narrative* Problem Noted Date Resolved Date Parastomal hernia 05/29/2020 06/04/2020 Last Assessment & Plan: Assessment: s/p 05/29 parastomal hernia repair with TAR PLAN: -continue postoperative care Itching 01/11/2018 02/18/2018 Insomnia 01/11/2018 09/18/2018 Abnormal echocardiogram 06/03/2017 09/02/20 17 SBO (small bowel obstruction) 01/25/2017 Abdominal pain 01/25/2017 01/25/2017 Overview: --01/24 Outside ER admit for 10 abd pain, decreased Colostomy output. CT 01/24/17 with new hernia in RLQ. --01/25 Pt states no abd pain/craming and pain 0/10, +stool output and tolerating liquids and solids. Plan for General Surg f/u outpatient for h/o SBO. 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 may need to increase FK and/or start low dose steroids Bronchopneumonia due to human metapneumovirus (h MPV) 01/14/2017 01/29/2017 Overview: -- presented as fever, cough, sinus NULL. -- RVP was (+) for Human metapneumovirus --CXR ? basilar atalectasis v pneumonia; --CT sinus acute sinusitis - u/a C&S neg - had persistent fevers and received 2 days of zosyn (01/16-01/17); -- zosyn was dc'd with all cultures being neg and she remained afebrile -- developed hypoxia with a positive desat study -- DC'd Home with O2 f/u 01/20/[address] Tatyana KIM (right bundle branch block) 09/24/2016 05/18/2018 Abnormality of gait 09/11/2016 01/21/2017 Secondary adrenal insufficiency 09/07/2016 04/27/2018 Type 2 diabetes mellitus wit h microalbuminuria, without long-term current use of insulin 07/02/2016 02/10/2022 Physical deconditioning 10/01/2015 09/07/20 16 Overview: Per LDT 10/30/15 fci charges Diarrhea 09/11/2015 01/21/2017 Overview: --increased watery stool output through ostomy; 01/16: c-diff neg --start imodium BID Acute pulmonary embolism 08/06/2015 016 Overview: --Patient presented with pleuritic Chest Pain, Heparin gtt initiated until PE ruled out --Negative for PE CT with PE protocol. Heparin drip was discontinued. 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 --c/o blood in urine & dysuria. 2+ Hb on UA. Check BK urine. Empiric cipro started --07/08- symptoms improving --07/09: +BK (162,000) copies: continue cipro for tx. 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 Treated w ganciclovir. Plan: - continue acyclovir - monitor tac levels Dysmetabolic syndrome X 09/07/20 16 Obesity 09/08/2017 Overview: Obesity class III Body mass index is 32.09 kg/(m^2). 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 Treated with vori, then changed to posa d/t presumed resistance. Repeat CT chest 10/12/14 improved. 12/14/14 CT clear --ppx posa PFO (patent foramen ovale) 11/06 Obstructive lung disease (generalized) 02/04/2016 Overview: --monitor. No h/o smoking. Not currently on any treatment at this time. Reduced FEV1 and DLCO. recent Pneumothorax on right Overview: --right sided chest pain that radiates to the scapula. Worse with deep breath. Scapula tender to palpation. -- CXR showedsmall right apical pneumothorax. EKG unremarkable. Cardiac enzymes negative. --Right apical pneumothorax most likely cause of her chest pain. No respiratory distress. On room air. --11/30 CXR shows pneumo no longer visible. 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 food related vs GVHD; pt cutting back on snacking today; on GVHD diet (GI soft/fiber controlled). --stool [id number] 07/05 (down from 2500ml 07/04). Some blood in stool overnight 07/05; platelets transfused. No blood noted afterward. --increased stool 1725ml 07/06. No colonoscopy; continue to hold off on ECP; 07/09-stool output decreasing; monitor documented as of this encounter (statuses as of 02/12/2022) [facility]09-[facility]2020 History of Past illness Narrative* Problem Noted Date Resolved Date Parastomal hernia 05/29/2020 06/04/2020 Last Assessment & Plan: Assessment: s/p 05/29 parastomal hernia repair with TAR PLAN: -continue postoperative care Itching 01/11/2018 02/18/2018 Insomnia 01/11/2018 09/18/2018 Abnormal echocardiogram 06/03/2017 09/02/20 17 SBO (small bowel obstruction) 01/25/2017 Abdominal pain 01/25/2017 01/25/2017 Overview: --01/24 Outside ER admit for 10 abd pain, decreased Colostomy output. CT 01/24/17 with new hernia in RLQ. --01/25 Pt states no abd pain/craming and pain 0/10, +stool output and tolerating liquids and solids. Plan for General Surg f/u outpatient for h/o SBO. 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 may need to increase FK and/or start low dose steroids Bronchopneumonia due to human metapneumovirus (h MPV) 01/14/2017 01/29/2017 Overview: -- presented as fever, cough, sinus NULL. -- RVP was (+) for Human metapneumovirus --CXR ? basilar atalectasis v pneumonia; --CT sinus acute sinusitis - u/a C&S neg - had persistent fevers and received 2 days of zosyn (01/16-01/17); -- zosyn was dc'd with all cultures being neg and she remained afebrile -- developed hypoxia with a positive desat study -- DC'd Home with O2 f/u 01/20/[address] Tatyana KIM (right bundle branch block) 09/24/2016 05/18/2018 Abnormality of gait 09/11/2016 01/21/2017 Secondary adrenal insufficiency 09/07/2016 04/27/2018 Type 2 diabetes mellitus wit h microalbuminuria, without long-term current use of insulin 07/02/2016 02/10/2022 Physical deconditioning 10/01/2015 09/07/20 16 Overview: Per LDT 10/30/15 fci charges Diarrhea 09/11/2015 01/21/2017 Overview: --increased watery stool output through ostomy; 01/16: c-diff neg --start imodium BID Acute pulmonary embolism 08/06/2015 016 Overview: --Patient presented with pleuritic Chest Pain, Heparin gtt initiated until PE ruled out --Negative for PE CT with PE protocol. Heparin drip was discontinued. 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 --c/o blood in urine & dysuria. 2+ Hb on UA. Check BK urine. Empiric cipro started --07/08- symptoms improving --07/09: +BK (162,000) copies: continue cipro for tx. 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 Treated w ganciclovir. Plan: - continue acyclovir - monitor tac levels Dysmetabolic syndrome X 09/07/20 16 Obesity 09/08/2017 Overview: Obesity class III Body mass index is 32.09 kg/(m^2). 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 Treated with vori, then changed to posa d/t presumed resistance. Repeat CT chest 10/12/14 improved. 12/14/14 CT clear --ppx posa PFO (patent foramen ovale) 11/06 Obstructive lung disease (generalized) 02/04/2016 Overview: --monitor. No h/o smoking. Not currently on any treatment at this time. Reduced FEV1 and DLCO. recent Pneumothorax on right Overview: --right sided chest pain that radiates to the scapula. Worse with deep breath. Scapula tender to palpation. -- CXR showedsmall right apical pneumothorax. EKG unremarkable. Cardiac enzymes negative. --Right apical pneumothorax most likely cause of her chest pain. No respiratory distress. On room air. --11/30 CXR shows pneumo no longer visible. 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 food related vs GVHD; pt cutting back on snacking today; on GVHD diet (GI soft/fiber controlled). --stool [id number] 07/05 (down from 2500ml 07/04). Some blood in stool overnight 07/05; platelets transfused. No blood noted afterward. --increased stool 1725ml 07/06. No colonoscopy; continue to hold off on ECP; 07/09-stool output decreasing; monitor documented as of this encounter (statuses as of 02/12/2022) [facility]09-[facility]-2020 History of Past illness Narrative* Problem Noted Date Resolved Date Parastomal hernia 05/29/2020 06/04/2020 Last Assessment & Plan: Assessment: s/p 05/29 parastomal hernia repair with TAR PLAN: -continue postoperative care Itching 01/11/2018 02/18/2018 Insomnia 01/11/2018 09/18/2018 Abnormal echocardiogram 06/03/2017 09/02/20 17 SBO (small bowel obstruction) 01/25/2017 Abdominal pain 01/25/2017 01/25/2017 Overview: --01/24 Outside ER admit for 06/29 abd pain, decreased Colostomy output. CT 01/24/17 with new hernia in RLQ. --01/25 Pt states no abd pain/craming and pain 0/10, +stool output and tolerating liquids and solids. Plan for General Surg f/u outpatient for h/o SBO. 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 may need to increase FK and/or start low dose steroids Bronchopneumonia due to human metapneumovirus (h MPV) 01/14/2017 01/29/2017 Overview: -- presented as fever, cough, sinus NULL. -- RVP was (+) for Human metapneumovirus --CXR ? basilar atalectasis v pneumonia; --CT sinus acute sinusitis - u/a C&S neg - had persistent fevers and received 2 days of zosyn (01/16-01/17); -- zosyn was dc'd with all cultures being neg and she remained afebrile -- developed hypoxia with a positive desat study -- DC'd Home with O2 f/u 01/20/[address] Tatyana KIM (right bundle branch block) 09/24/2016 05/18/2018 Abnormality of gait 09/11/2016 01/21/2017 Secondary adrenal insufficiency 09/07/2016 04/27/2018 Type 2 diabetes mellitus wit h microalbuminuria, without long-term current use of insulin 07/02/2016 02/10/2022 Physical deconditioning 10/01/2015 09/07/20 16 Overview: Per LDT 10/30/15 fci charges Diarrhea 09/11/2015 01/21/2017 Overview: --increased watery stool output through ostomy; 01/16: c-diff neg --start imodium BID Acute pulmonary embolism 08/06/2015 016 Overview: --Patient presented with pleuritic Chest Pain, Heparin gtt initiated until PE ruled out --Negative for PE CT with PE protocol. Heparin drip was discontinued. 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 --c/o blood in urine & dysuria. 2+ Hb on UA. Check BK urine. Empiric cipro started --07/08- symptoms improving --07/09: +BK (162,000) copies: continue cipro for tx. 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 Treated w ganciclovir. Plan: - continue acyclovir - monitor tac levels Dysmetabolic syndrome X 09/07/20 16 Obesity 09/08/2017 Overview: Obesity class III Body mass index is 32.09 kg/(m^2). 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 Treated with vori, then changed to posa d/t presumed resistance. Repeat CT chest 10/12/14 improved. 12/14/14 CT clear --ppx posa PFO (patent foramen ovale) 11/06 Obstructive lung disease (generalized) 02/04/2016 Overview: --monitor. No h/o smoking. Not currently on any treatment at this time. Reduced FEV1 and DLCO. recent Pneumothorax on right Overview: --right sided chest pain that radiates to the scapula. Worse with deep breath. Scapula tender to palpation. -- CXR showedsmall right apical pneumothorax. EKG unremarkable. Cardiac enzymes negative. --Right apical pneumothorax most likely cause of her chest pain. No respiratory distress. On room air. --11/30 CXR shows pneumo no longer visible. 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 food related vs GVHD; pt cutting back on snacking today; on GVHD diet (GI soft/fiber controlled). --stool [id number] 07/05 (down from 2500ml 07/04). Some blood in stool overnight 07/05; platelets transfused. No blood noted afterward. --increased stool 1725ml 07/06. No colonoscopy; continue to hold off on ECP; 07/09-stool output decreasing; monitor documented as of this encounter (statuses as of 02/17/2022) [facility]09-[facility]-2020 History of Past illness Narrative* Problem Noted Date Resolved Date Parastomal hernia 05/29/2020 06/04/2020 Last Assessment & Plan: Assessment: s/p 05/29 parastomal hernia repair with TAR PLAN: -continue postoperative care Itching 01/11/2018 02/18/2018 Insomnia 01/11/2018 09/18/2018 Abnormal echocardiogram 06/03/2017 09/02/20 17 SBO (small bowel obstruction) 01/25/2017 Abdominal pain 01/25/2017 01/25/2017 Overview: --5/7 Outside ER admit for 10/10 abd pain, decreased Colostomy output. CT 01/24/17 with new hernia in RLQ. --5/8 Pt states no abd pain/craming and pain 0/10, +stool output and tolerating liquids and solids. Plan for General Surg f/u outpatient for h/o SBO. 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 may need to increase FK and/or start low dose steroids Bronchopneumonia due to human metapneumovirus (h MPV) 01/14/2017 01/29/2017 Overview: -- presented as fever, cough, sinus NULL. -- RVP was (+) for Human metapneumovirus --CXR ? basilar atalectasis v pneumonia; --CT sinus acute sinusitis - u/a C&S neg - had persistent fevers and received 2 days of zosyn (01/16-01/17); -- zosyn was dc'd with all cultures being neg and she remained afebrile -- developed hypoxia with a positive desat study -- DC'd Home with O2 f/u 01/20/[address] Tatyana KIM (right bundle branch block) 09/24/2016 05/18/2018 Abnormality of gait 09/11/2016 01/21/2017 Secondary adrenal insufficiency 09/07/2016 04/27/2018 Type 2 diabetes mellitus wit h microalbuminuria, without long-term current use of insulin 07/02/2016 02/10/2022 Physical deconditioning 10/01/2015 09/07/20 16 Overview: Per LDT 10/30/15 fci charges Diarrhea 09/11/2015 01/21/2017 Overview: --increased watery stool output through ostomy; 01/16: c-diff neg --start imodium BID Acute pulmonary embolism 08/06/2015 016 Overview: --Patient presented with pleuritic Chest Pain, Heparin gtt initiated until PE ruled out --Negative for PE CT with PE protocol. Heparin drip was discontinued. 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 --c/o blood in urine & dysuria. 2+ Hb on UA. Check BK urine. Empiric cipro started --07/08- symptoms improving --07/09: +BK (162,000) copies: continue cipro for tx. 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 Treated w ganciclovir. Plan: - continue acyclovir - monitor tac levels Dysmetabolic syndrome X 09/07/20 16 Obesity 09/08/2017 Overview: Obesity class III Body mass index is 32.09 kg/(m^2). 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 Treated with vori, then changed to posa d/t presumed resistance. Repeat CT chest 10/12/14 improved. 12/14/14 CT clear --ppx posa PFO (patent foramen ovale) 11/06 Obstructive lung disease (generalized) 02/04/2016 Overview: --monitor. No h/o smoking. Not currently on any treatment at this time. Reduced FEV1 and DLCO. recent Pneumothorax on right Overview: --right sided chest pain that radiates to the scapula. Worse with deep breath. Scapula tender to palpation. -- CXR showedsmall right apical pneumothorax. EKG unremarkable. Cardiac enzymes negative. --Right apical pneumothorax most likely cause of her chest pain. No respiratory distress. On room air. --11/30 CXR shows pneumo no longer visible. 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 food related vs GVHD; pt cutting back on snacking today; on GVHD diet (GI soft/fiber controlled). --stool [id number] 07/05 (down from 2500ml 07/04). Some blood in stool overnight 07/05; platelets transfused. No blood noted afterward. --increased stool 1725ml 07/06. No colonoscopy; continue to hold off on ECP; 07/09-stool output decreasing; monitor documented as of this encounter (statuses as of 02/19/2022) [facility]09-[facility]-2020 History of Past illness Narrative* Problem Noted Date Resolved Date Parastomal hernia 05/29/2020 06/04/2020 Last Assessment & Plan: Assessment: s/p 05/29 parastomal hernia repair with TAR PLAN: -continue postoperative care Itching 01/11/2018 02/18/2018 Insomnia 01/11/2018 09/18/2018 Abnormal echocardiogram 06/03/2017 09/02/20 17 SBO (small bowel obstruction) 01/25/2017 Abdominal pain 01/25/2017 01/25/2017 Overview: --01/24 Outside ER admit for 10/10 abd pain, decreased Colostomy output. CT 01/24/17 with new hernia in RLQ. --8 Pt states no abd pain/craming and pain 0/10, +stool output and tolerating liquids and solids. Plan for General Surg f/u outpatient for h/o SBO. 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 may need to increase FK and/or start low dose steroids Bronchopneumonia due to human metapneumovirus (h MPV) 01/14/2017 01/29/2017 Overview: -- presented as fever, cough, sinus NULL. -- RVP was (+) for Human metapneumovirus --CXR ? basilar atalectasis v pneumonia; --CT sinus acute sinusitis - u/a C&S neg - had persistent fevers and received 2 days of zosyn (01/16-01/17); -- zosyn was dc'd with all cultures being neg and she remained afebrile -- developed hypoxia with a positive desat study -- DC'd Home with O2 f/u 01/20/[address] Tatyana KIM (right bundle branch block) 09/24/2016 05/18/2018 Abnormality of gait 09/11/2016 01/21/2017 Secondary adrenal insufficiency 09/07/2016 04/27/2018 Type 2 diabetes mellitus wit h microalbuminuria, without long-term current use of insulin 07/02/2016 02/10/2022 Physical deconditioning 10/01/2015 09/07/20 16 Overview: Per LDT 10/30/15 fci charges Diarrhea 09/11/2015 01/21/2017 Overview: --increased watery stool output through ostomy; 01/16: c-diff neg --start imodium BID Acute pulmonary embolism 08/06/2015 016 Overview: --Patient presented with pleuritic Chest Pain, Heparin gtt initiated until PE ruled out --Negative for PE CT with PE protocol. Heparin drip was discontinued. 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 --c/o blood in urine & dysuria. 2+ Hb on UA. Check BK urine. Empiric cipro started --07/08- symptoms improving --07/09: +BK (162,000) copies: continue cipro for tx. 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 Treated w ganciclovir. Plan: - continue acyclovir - monitor tac levels Dysmetabolic syndrome X 09/07/20 16 Obesity 09/08/2017 Overview: Obesity class III Body mass index is 32.09 kg/(m^2). 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 Treated with vori, then changed to posa d/t presumed resistance. Repeat CT chest 10/12/14 improved. 12/14/14 CT clear --ppx posa PFO (patent foramen ovale) 11/06 Obstructive lung disease (generalized) 02/04/2016 Overview: --monitor. No h/o smoking. Not currently on any treatment at this time. Reduced FEV1 and DLCO. recent Pneumothorax on right Overview: --right sided chest pain that radiates to the scapula. Worse with deep breath. Scapula tender to palpation. -- CXR showedsmall right apical pneumothorax. EKG unremarkable. Cardiac enzymes negative. --Right apical pneumothorax most likely cause of her chest pain. No respiratory distress. On room air. --11/30 CXR shows pneumo no longer visible. 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 food related vs GVHD; pt cutting back on snacking today; on GVHD diet (GI soft/fiber controlled). --stool [id number] 07/05 (down from 2500ml 07/04). Some blood in stool overnight 07/05; platelets transfused. No blood noted afterward. --increased stool 1725ml 07/06. No colonoscopy; continue to hold off on ECP; 07/09-stool output decreasing; monitor documented as of this encounter (statuses as of 02/19/2022) [facility]09[facility] History of Past illness Narrative* Problem Noted Date Resolved Date Parastomal hernia 05/29/2020 06/04/2020 Last Assessment & Plan: Assessment: s/p 05/29 parastomal hernia repair with TAR PLAN: -continue postoperative care Itching 01/11/2018 02/18/2018 Insomnia 01/11/2018 09/18/2018 Abnormal echocardiogram 06/03/2017 09/02/20 17 SBO (small bowel obstruction) 01/25/2017 Abdominal pain 01/25/2017 01/25/2017 Overview: --01/24 Outside ER admit for 06/29 abd pain, decreased Colostomy output. CT 01/24/17 with new hernia in RLQ. --01/25 Pt states no abd pain/craming and pain 0/10, +stool output and tolerating liquids and solids. Plan for General Surg f/u outpatient for h/o SBO. 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 may need to increase FK and/or start low dose steroids Bronchopneumonia due to human metapneumovirus (h MPV) 01/14/2017 01/29/2017 Overview: -- presented as fever, cough, sinus NULL. -- RVP was (+) for Human metapneumovirus --CXR ? basilar atalectasis v pneumonia; --CT sinus acute sinusitis - u/a C&S neg - had persistent fevers and received 2 days of zosyn (01/16-01/17); -- zosyn was dc'd with all cultures being neg and she remained afebrile -- developed hypoxia with a positive desat study -- DC'd Home with O2 f/u 01/20/[address] Tatyana KIM (right bundle branch block) 09/24/2016 05/18/2018 Abnormality of gait 09/11/2016 01/21/2017 Secondary adrenal insufficiency 09/07/2016 04/27/2018 Type 2 diabetes mellitus wit h microalbuminuria, without long-term current use of insulin 07/02/2016 02/10/2022 Physical deconditioning 10/01/2015 09/07/20 16 Overview: Per LDT 10/30/15 fci charges Diarrhea 09/11/2015 01/21/2017 Overview: --increased watery stool output through ostomy; 01/16: c-diff neg --start imodium BID Acute pulmonary embolism 08/06/2015 016 Overview: --Patient presented with pleuritic Chest Pain, Heparin gtt initiated until PE ruled out --Negative for PE CT with PE protocol. Heparin drip was discontinued. 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 --c/o blood in urine & dysuria. 2+ Hb on UA. Check BK urine. Empiric cipro started --07/08- symptoms improving --07/09: +BK (162,000) copies: continue cipro for tx. S/P partial colectomy 06/20/2015 05/05/2017 Overview: --06/20/2015- ex lap, subtotal colectomy, and end ileostomy -- had some watery stoma output formed up on imodium -- home with prn imodium Cytomegalovirus (CMV) viremia 04/30/2015 Overview: H/o CMV viremia, last checked 2/15/16, 142 copies. 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 Treated w ganciclovir. Plan: - continue acyclovir - monitor tac levels Dysmetabolic syndrome X 09/07/20 16 Obesity 09/08/2017 Overview: Obesity class III Body mass index is 32.09 kg/(m^2). 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 Treated with vori, then changed to posa d/t presumed resistance. Repeat CT chest 10/12/14 improved. 12/14/14 CT clear --ppx posa PFO (patent foramen ovale) 11/06 Obstructive lung disease (generalized) 02/04/2016 Overview: --monitor. No h/o smoking. Not currently on any treatment at this time. Reduced FEV1 and DLCO. recent Pneumothorax on right Overview: --right sided chest pain that radiates to the scapula. Worse with deep breath. Scapula tender to palpation. -- CXR showedsmall right apical pneumothorax. EKG unremarkable. Cardiac enzymes negative. --Right apical pneumothorax most likely cause of her chest pain. No respiratory distress. On room air. --11/30 CXR shows pneumo no longer visible. 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 food related vs GVHD; pt cutting back on snacking today; on GVHD diet (GI soft/fiber controlled). --stool [id number] 07/05 (down from 2500ml 07/04). Some blood in stool overnight 07/05; platelets transfused. No blood noted afterward. --increased stool 1725ml 07/06. No colonoscopy; continue to hold off on ECP; 07/09-stool output decreasing; monitor documented as of this encounter (statuses as of 02/24/2022) [facility]09-[facility]-2020 History of Past illness Narrative* Problem Noted Date Resolved Date Parastomal hernia 05/29/2020 06/04/2020 Last Assessment & Plan: Assessment: s/p 05/29 parastomal hernia repair with TAR PLAN: -continue postoperative care Itching 01/11/2018 02/18/2018 Insomnia 01/11/2018 09/18/2018 Abnormal echocardiogram 06/03/2017 09/02/20 17 SBO (small bowel obstruction) 01/25/2017 Abdominal pain 01/25/2017 01/25/2017 Overview: --01/24 Outside ER admit for 10 abd pain, decreased Colostomy output. CT 01/24/17 with new hernia in RLQ. --01/25 Pt states no abd pain/craming and pain 0/10, +stool output and tolerating liquids and solids. Plan for General Surg f/u outpatient for h/o SBO. 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 may need to increase FK and/or start low dose steroids Bronchopneumonia due to human metapneumovirus (h MPV) 01/14/2017 01/29/2017 Overview: -- presented as fever, cough, sinus NULL. -- RVP was (+) for Human metapneumovirus --CXR ? basilar atalectasis v pneumonia; --CT sinus acute sinusitis - u/a C&S neg - had persistent fevers and received 2 days of zosyn (01/16-01/17); -- zosyn was dc'd with all cultures being neg and she remained afebrile -- developed hypoxia with a positive desat study -- DC'd Home with O2 f/u 01/20/[address] Tatyana KIM (right bundle branch block) 09/24/2016 05/18/2018 Abnormality of gait 09/11/2016 01/21/2017 Secondary adrenal insufficiency 09/07/2016 04/27/2018 Type 2 diabetes mellitus wit h microalbuminuria, without long-term current use of insulin 07/02/2016 02/10/2022 Physical deconditioning 10/01/2015 09/07/20 16 Overview: Per LDT 10/30/15 fci charges Diarrhea 09/11/2015 01/21/2017 Overview: --increased watery stool output through ostomy; 01/16: c-diff neg --start imodium BID Acute pulmonary embolism 08/06/2015 016 Overview: --Patient presented with pleuritic Chest Pain, Heparin gtt initiated until PE ruled out --Negative for PE CT with PE protocol. Heparin drip was discontinued. 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 --c/o blood in urine & dysuria. 2+ Hb on UA. Check BK urine. Empiric cipro started --07/08- symptoms improving --07/09: +BK (162,000) copies: continue cipro for tx. 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 Treated w ganciclovir. Plan: - continue acyclovir - monitor tac levels Dysmetabolic syndrome X 09/07/20 16 Obesity 09/08/2017 Overview: Obesity class III Body mass index is 32.09 kg/(m^2). 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 Treated with vori, then changed to posa d/t presumed resistance. Repeat CT chest 10/12/14 improved. 12/14/14 CT clear --ppx posa PFO (patent foramen ovale) 11/06 Obstructive lung disease (generalized) 02/04/2016 Overview: --monitor. No h/o smoking. Not currently on any treatment at this time. Reduced FEV1 and DLCO. recent Pneumothorax on right Overview: --right sided chest pain that radiates to the scapula. Worse with deep breath. Scapula tender to palpation. -- CXR showedsmall right apical pneumothorax. EKG unremarkable. Cardiac enzymes negative. --Right apical pneumothorax most likely cause of her chest pain. No respiratory distress. On room air. --11/30 CXR shows pneumo no longer visible. 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 food related vs GVHD; pt cutting back on snacking today; on GVHD diet (GI soft/fiber controlled). --stool [id number] 07/05 (down from 2500ml 07/04). Some blood in stool overnight 07/05; platelets transfused. No blood noted afterward. --increased stool 1725ml 07/06. No colonoscopy; continue to hold off on ECP; 07/09-stool output decreasing; monitor documented as of this encounter (statuses as of 02/24/2022) [facility]09-[facility]-2020 History of Past illness Narrative* Problem Noted Date Resolved Date Parastomal hernia 05/29/2020 06/04/2020 Last Assessment & Plan: Assessment: s/p 05/29 parastomal hernia repair with TAR PLAN: -continue postoperative care Itching 01/11/2018 02/18/2018 Insomnia 01/11/2018 09/18/2018 Abnormal echocardiogram 06/03/2017 09/02/20 17 SBO (small bowel obstruction) 01/25/2017 Abdominal pain 01/25/2017 01/25/2017 Overview: --01/24 Outside ER admit for 10 abd pain, decreased Colostomy output. CT 01/24/17 with new hernia in RLQ. --01/25 Pt states no abd pain/craming and pain 0/10, +stool output and tolerating liquids and solids. Plan for General Surg f/u outpatient for h/o SBO. 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 may need to increase FK and/or start low dose steroids Bronchopneumonia due to human metapneumovirus (h MPV) 01/14/2017 01/29/2017 Overview: -- presented as fever, cough, sinus NULL. -- RVP was (+) for Human metapneumovirus --CXR ? basilar atalectasis v pneumonia; --CT sinus acute sinusitis - u/a C&S neg - had persistent fevers and received 2 days of zosyn (01/16-01/17); -- zosyn was dc'd with all cultures being neg and she remained afebrile -- developed hypoxia with a positive desat study -- DC'd Home with O2 f/u 01/20/[address] Tatyana KIM (right bundle branch block) 09/24/2016 05/18/2018 Abnormality of gait 09/11/2016 01/21/2017 Secondary adrenal insufficiency 09/07/2016 04/27/2018 Type 2 diabetes mellitus wit h microalbuminuria, without long-term current use of insulin 07/02/2016 02/10/2022 Physical deconditioning 10/01/2015 09/07/20 16 Overview: Per LDT 10/30/15 fci charges Diarrhea 09/11/2015 01/21/2017 Overview: --increased watery stool output through ostomy; 01/16: c-diff neg --start imodium BID Acute pulmonary embolism 08/06/2015 016 Overview: --Patient presented with pleuritic Chest Pain, Heparin gtt initiated until PE ruled out --Negative for PE CT with PE protocol. Heparin drip was discontinued. 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 --c/o blood in urine & dysuria. 2+ Hb on UA. Check BK urine. Empiric cipro started --07/08- symptoms improving --07/09: +BK (162,000) copies: continue cipro for tx. 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 Treated w ganciclovir. Plan: - continue acyclovir - monitor tac levels Dysmetabolic syndrome X 09/07/20 16 Obesity 09/08/2017 Overview: Obesity class III Body mass index is 32.09 kg/(m^2). 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 Treated with vori, then changed to posa d/t presumed resistance. Repeat CT chest 10/12/14 improved. 12/14/14 CT clear --ppx posa PFO (patent foramen ovale) 11/06 Obstructive lung disease (generalized) 02/04/2016 Overview: --monitor. No h/o smoking. Not currently on any treatment at this time. Reduced FEV1 and DLCO. recent Pneumothorax on right Overview: --right sided chest pain that radiates to the scapula. Worse with deep breath. Scapula tender to palpation. -- CXR showedsmall right apical pneumothorax. EKG unremarkable. Cardiac enzymes negative. --Right apical pneumothorax most likely cause of her chest pain. No respiratory distress. On room air. --11/30 CXR shows pneumo no longer visible. 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 food related vs GVHD; pt cutting back on snacking today; on GVHD diet (GI soft/fiber controlled). --stool [id number] 07/05 (down from 2500ml 07/04). Some blood in stool overnight 07/05; platelets transfused. No blood noted afterward. --increased stool 1725ml 07/06. No colonoscopy; continue to hold off on ECP; 07/09-stool output decreasing; monitor documented as of this encounter (statuses as of 02/27/2022) [facility]09-[facility]-2020 History of Past illness Narrative* Problem Noted Date Resolved Date Parastomal hernia 05/29/2020 06/04/2020 Last Assessment & Plan: Assessment: s/p 05/29 parastomal hernia repair with TAR PLAN: -continue postoperative care Itching 01/11/2018 02/18/2018 Insomnia 01/11/2018 09/18/2018 Abnormal echocardiogram 06/03/2017 09/02/20 17 SBO (small bowel obstruction) 01/25/2017 Abdominal pain 01/25/2017 01/25/2017 Overview: --01/24 Outside ER admit for 10 abd pain, decreased Colostomy output. CT 01/24/17 with new hernia in RLQ. --01/25 Pt states no abd pain/craming and pain 0/10, +stool output and tolerating liquids and solids. Plan for General Surg f/u outpatient for h/o SBO. 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 may need to increase FK and/or start low dose steroids Bronchopneumonia due to human metapneumovirus (h MPV) 01/14/2017 01/29/2017 Overview: -- presented as fever, cough, sinus NULL. -- RVP was (+) for Human metapneumovirus --CXR ? basilar atalectasis v pneumonia; --CT sinus acute sinusitis - u/a C&S neg - had persistent fevers and received 2 days of zosyn (01/16-01/17); -- zosyn was dc'd with all cultures being neg and she remained afebrile -- developed hypoxia with a positive desat study -- DC'd Home with O2 f/u 01/20/[address] Tatyana KIM (right bundle branch block) 09/24/2016 05/18/2018 Abnormality of gait 09/11/2016 01/21/2017 Secondary adrenal insufficiency 09/07/2016 04/27/2018 Type 2 diabetes mellitus wit h microalbuminuria, without long-term current use of insulin 07/02/2016 02/10/2022 Physical deconditioning 10/01/2015 09/07/20 16 Overview: Per LDT 10/30/15 fci charges Diarrhea 09/11/2015 01/21/2017 Overview: --increased watery stool output through ostomy; 01/16: c-diff neg --start imodium BID Acute pulmonary embolism 08/06/2015 016 Overview: --Patient presented with pleuritic Chest Pain, Heparin gtt initiated until PE ruled out --Negative for PE CT with PE protocol. Heparin drip was discontinued. 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 --c/o blood in urine & dysuria. 2+ Hb on UA. Check BK urine. Empiric cipro started --07/08- symptoms improving --07/09: +BK (162,000) copies: continue cipro for tx. 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 Treated w ganciclovir. Plan: - continue acyclovir - monitor tac levels Dysmetabolic syndrome X 09/07/20 16 Obesity 09/08/2017 Overview: Obesity class III Body mass index is 32.09 kg/(m^2). 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 Treated with vori, then changed to posa d/t presumed resistance. Repeat CT chest 10/12/14 improved. 12/14/14 CT clear --ppx posa PFO (patent foramen ovale) 11/06 Obstructive lung disease (generalized) 02/04/2016 Overview: --monitor. No h/o smoking. Not currently on any treatment at this time. Reduced FEV1 and DLCO. recent Pneumothorax on right Overview: --right sided chest pain that radiates to the scapula. Worse with deep breath. Scapula tender to palpation. -- CXR showedsmall right apical pneumothorax. EKG unremarkable. Cardiac enzymes negative. --Right apical pneumothorax most likely cause of her chest pain. No respiratory distress. On room air. --11/30 CXR shows pneumo no longer visible. 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 food related vs GVHD; pt cutting back on snacking today; on GVHD diet (GI soft/fiber controlled). --stool [id number] 07/05 (down from 2500ml 07/04). Some blood in stool overnight 07/05; platelets transfused. No blood noted afterward. --increased stool 1725ml 07/06. No colonoscopy; continue to hold off on ECP; 07/09-stool output decreasing; monitor documented as of this encounter (statuses as of 03/02/2022) [facility] History of Past illness Narrative* Problem Noted Date Resolved Date Parastomal hernia 05/29/2020 06/04/2020 Last Assessment & Plan: Assessment: s/p 05/29 parastomal hernia repair with TAR PLAN: -continue postoperative care Itching 01/11/2018 02/18/2018 Insomnia 01/11/2018 09/18/2018 Abnormal echocardiogram 06/03/2017 09/02/20 17 SBO (small bowel obstruction) 01/25/2017 Abdominal pain 01/25/2017 01/25/2017 Overview: --01/24 Outside ER admit for 06/29 abd pain, decreased Colostomy output. CT 01/24/17 with new hernia in RLQ. --01/25 Pt states no abd pain/craming and pain 0/10, +stool output and tolerating liquids and solids. Plan for General Surg f/u outpatient for h/o SBO. 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 may need to increase FK and/or start low dose steroids Bronchopneumonia due to human metapneumovirus (h MPV) 01/14/2017 01/29/2017 Overview: -- presented as fever, cough, sinus NULL. -- RVP was (+) for Human metapneumovirus --CXR ? basilar atalectasis v pneumonia; --CT sinus acute sinusitis - u/a C&S neg - had persistent fevers and received 2 days of zosyn (01/16-01/17); -- zosyn was dc'd with all cultures being neg and she remained afebrile -- developed hypoxia with a positive desat study -- DC'd Home with O2 f/u 01/20/[address] Tatyana THORNTONBB (right bundle branch block) 09/24/2016 05/18/2018 Abnormality of gait 09/11/2016 01/21/2017 Secondary adrenal insufficiency 09/07/2016 04/27/2018 Type 2 diabetes mellitus wit h microalbuminuria, without long-term current use of insulin 07/02/2016 02/10/2022 Physical deconditioning 10/01/2015 09/07/20 16 Overview: Per LDT 10/30/15 fci charges Diarrhea 09/11/2015 01/21/2017 Overview: --increased watery stool output through ostomy; 01/16: c-diff neg --start imodium BID Acute pulmonary embolism 08/06/2015 016 Overview: --Patient presented with pleuritic Chest Pain, Heparin gtt initiated until PE ruled out --Negative for PE CT with PE protocol. Heparin drip was discontinued. 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 --c/o blood in urine & dysuria. 2+ Hb on UA. Check BK urine. Empiric cipro started --07/08- symptoms improving --07/09: +BK (162,000) copies: continue cipro for tx. 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 Treated w ganciclovir. Plan: - continue acyclovir - monitor tac levels Dysmetabolic syndrome X 09/07/20 16 Obesity 09/08/2017 Overview: Obesity class III Body mass index is 32.09 kg/(m^2). 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 Treated with vori, then changed to posa d/t presumed resistance. Repeat CT chest 10/12/14 improved. 12/14/14 CT clear --ppx posa PFO (patent foramen ovale) 11/06 Obstructive lung disease (generalized) 02/04/2016 Overview: --monitor. No h/o smoking. Not currently on any treatment at this time. Reduced FEV1 and DLCO. recent Pneumothorax on right Overview: --right sided chest pain that radiates to the scapula. Worse with deep breath. Scapula tender to palpation. -- CXR showedsmall right apical pneumothorax. EKG unremarkable. Cardiac enzymes negative. --Right apical pneumothorax most likely cause of her chest pain. No respiratory distress. On room air. --11/30 CXR shows pneumo no longer visible. 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 food related vs GVHD; pt cutting back on snacking today; on GVHD diet (GI soft/fiber controlled). --stool [id number] 07/05 (down from 2500ml 07/04). Some blood in stool overnight 07/05; platelets transfused. No blood noted afterward. --increased stool 1725ml 07/06. No colonoscopy; continue to hold off on ECP; 07/09-stool output decreasing; monitor documented as of this encounter (statuses as of 03/04/2022) [facility]09-09-2020 History of Past illness Narrative* Problem Noted Date Resolved Date Parastomal hernia 05/29/2020 06/04/2020 Last Assessment & Plan: Assessment: s/p 05/29 parastomal hernia repair with TAR PLAN: -continue postoperative care Itching 01/11/2018 02/18/2018 Insomnia 01/11/2018 09/18/2018 Abnormal echocardiogram 06/03/2017 09/02/20 17 SBO (small bowel obstruction) 01/25/2017 Abdominal pain 01/25/2017 01/25/2017 Overview: --01/24 Outside ER admit for 10/10 abd pain, decreased Colostomy output. CT 01/24/17 with new hernia in RLQ. --5/8 Pt states no abd pain/craming and pain 0/10, +stool output and tolerating liquids and solids. Plan for General Surg f/u outpatient for h/o SBO. 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 may need to increase FK and/or start low dose steroids Bronchopneumonia due to human metapneumovirus (h MPV) 01/14/2017 01/29/2017 Overview: -- presented as fever, cough, sinus NULL. -- RVP was (+) for Human metapneumovirus --CXR ? basilar atalectasis v pneumonia; --CT sinus acute sinusitis - u/a C&S neg - had persistent fevers and received 2 days of zosyn (01/16-01/17); -- zosyn was dc'd with all cultures being neg and she remained afebrile -- developed hypoxia with a positive desat study -- DC'd Home with O2 f/u 01/20/[address] Tatyana KIM (right bundle branch block) 09/24/2016 05/18/2018 Abnormality of gait 09/11/2016 01/21/2017 Secondary adrenal insufficiency 09/07/2016 04/27/2018 Type 2 diabetes mellitus wit h microalbuminuria, without long-term current use of insulin 07/02/2016 02/10/2022 Physical deconditioning 10/01/2015 09/07/20 16 Overview: Per LDT 10/30/15 fci charges Diarrhea 09/11/2015 01/21/2017 Overview: --increased watery stool output through ostomy; 01/16: c-diff neg --start imodium BID Acute pulmonary embolism 08/06/2015 016 Overview: --Patient presented with pleuritic Chest Pain, Heparin gtt initiated until PE ruled out --Negative for PE CT with PE protocol. Heparin drip was discontinued. 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 --c/o blood in urine & dysuria. 2+ Hb on UA. Check BK urine. Empiric cipro started --07/08- symptoms improving --07/09: +BK (162,000) copies: continue cipro for tx. 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 Treated w ganciclovir. Plan: - continue acyclovir - monitor tac levels Dysmetabolic syndrome X 09/07/20 16 Obesity 09/08/2017 Overview: Obesity class III Body mass index is 32.09 kg/(m^2). 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 Treated with vori, then changed to posa d/t presumed resistance. Repeat CT chest 10/12/14 improved. 12/14/14 CT clear --ppx posa PFO (patent foramen ovale) 11/06 Obstructive lung disease (generalized) 02/04/2016 Overview: --monitor. No h/o smoking. Not currently on any treatment at this time. Reduced FEV1 and DLCO. recent Pneumothorax on right Overview: --right sided chest pain that radiates to the scapula. Worse with deep breath. Scapula tender to palpation. -- CXR showedsmall right apical pneumothorax. EKG unremarkable. Cardiac enzymes negative. --Right apical pneumothorax most likely cause of her chest pain. No respiratory distress. On room air. --11/30 CXR shows pneumo no longer visible. 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 food related vs GVHD; pt cutting back on snacking today; on GVHD diet (GI soft/fiber controlled). --stool [id number] 07/05 (down from 2500ml 07/04). Some blood in stool overnight 07/05; platelets transfused. No blood noted afterward. --increased stool 1725ml 07/06. No colonoscopy; continue to hold off on ECP; 07/09-stool output decreasing; monitor documented as of this encounter (statuses as of 03/05/2022) [facility]09-09-2020 History of Past illness Narrative* Problem Noted Date Resolved Date Parastomal hernia 05/29/2020 06/04/2020 Last Assessment & Plan: Assessment: s/p 05/29 parastomal hernia repair with TAR PLAN: -continue postoperative care Itching 01/11/2018 02/18/2018 Insomnia 01/11/2018 09/18/2018 Abnormal echocardiogram 06/03/2017 09/02/20 17 SBO (small bowel obstruction) 01/25/2017 Abdominal pain 01/25/2017 01/25/2017 Overview: --01/24 Outside ER admit for 10/10 abd pain, decreased Colostomy output. CT 01/24/17 with new hernia in RLQ. --01/25 Pt states no abd pain/craming and pain 0/10, +stool output and tolerating liquids and solids. Plan for General Surg f/u outpatient for h/o SBO. 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 may need to increase FK and/or start low dose steroids Bronchopneumonia due to human metapneumovirus (h MPV) 01/14/2017 01/29/2017 Overview: -- presented as fever, cough, sinus NULL. -- RVP was (+) for Human metapneumovirus --CXR ? basilar atalectasis v pneumonia; --CT sinus acute sinusitis - u/a C&S neg - had persistent fevers and received 2 days of zosyn (01/16-01/17); -- zosyn was dc'd with all cultures being neg and she remained afebrile -- developed hypoxia with a positive desat study -- DC'd Home with O2 f/u 01/20/[address] Tatyana KIM (right bundle branch block) 09/24/2016 05/18/2018 Abnormality of gait 09/11/2016 01/21/2017 Secondary adrenal insufficiency 09/07/2016 04/27/2018 Type 2 diabetes mellitus wit h microalbuminuria, without long-term current use of insulin 07/02/2016 02/10/2022 Physical deconditioning 10/01/2015 09/07/20 16 Overview: Per LDT 10/30/15 fci charges Diarrhea 09/11/2015 01/21/2017 Overview: --increased watery stool output through ostomy; 01/16: c-diff neg --start imodium BID Acute pulmonary embolism 08/06/2015 016 Overview: --Patient presented with pleuritic Chest Pain, Heparin gtt initiated until PE ruled out --Negative for PE CT with PE protocol. Heparin drip was discontinued. 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 --c/o blood in urine & dysuria. 2+ Hb on UA. Check BK urine. Empiric cipro started --07/08- symptoms improving --07/09: +BK (162,000) copies: continue cipro for tx. 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 Treated w ganciclovir. Plan: - continue acyclovir - monitor tac levels Dysmetabolic syndrome X 09/07/20 16 Obesity 09/08/2017 Overview: Obesity class III Body mass index is 32.09 kg/(m^2). 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 Treated with vori, then changed to posa d/t presumed resistance. Repeat CT chest 10/12/14 improved. 12/14/14 CT clear --ppx posa PFO (patent foramen ovale) 11/06 Obstructive lung disease (generalized) 02/04/2016 Overview: --monitor. No h/o smoking. Not currently on any treatment at this time. Reduced FEV1 and DLCO. recent Pneumothorax on right Overview: --right sided chest pain that radiates to the scapula. Worse with deep breath. Scapula tender to palpation. -- CXR showedsmall right apical pneumothorax. EKG unremarkable. Cardiac enzymes negative. --Right apical pneumothorax most likely cause of her chest pain. No respiratory distress. On room air. --11/30 CXR shows pneumo no longer visible. 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 food related vs GVHD; pt cutting back on snacking today; on GVHD diet (GI soft/fiber controlled). --stool [id number] 07/05 (down from 2500ml 07/04). Some blood in stool overnight 07/05; platelets transfused. No blood noted afterward. --increased stool 1725ml 07/06. No colonoscopy; continue to hold off on ECP; 07/09-stool output decreasing; monitor documented as of this encounter (statuses as of 03/09/2022) [facility]09-09-2020 History of Past illness Narrative* Problem Noted Date Resolved Date Parastomal hernia 05/29/2020 06/04/2020 Last Assessment & Plan: Assessment: s/p 05/29 parastomal hernia repair with TAR PLAN: -continue postoperative care Itching 01/11/2018 02/18/2018 Insomnia 01/11/2018 09/18/2018 Abnormal echocardiogram 06/03/2017 09/02/20 17 SBO (small bowel obstruction) 01/25/2017 Abdominal pain 01/25/2017 01/25/2017 Overview: --01/24 Outside ER admit for 10 abd pain, decreased Colostomy output. CT 01/24/17 with new hernia in RLQ. --01/25 Pt states no abd pain/craming and pain 0/10, +stool output and tolerating liquids and solids. Plan for General Surg f/u outpatient for h/o SBO. 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 may need to increase FK and/or start low dose steroids Bronchopneumonia due to human metapneumovirus (h MPV) 01/14/2017 01/29/2017 Overview: -- presented as fever, cough, sinus NULL. -- RVP was (+) for Human metapneumovirus --CXR ? basilar atalectasis v pneumonia; --CT sinus acute sinusitis - u/a C&S neg - had persistent fevers and received 2 days of zosyn (01/16-01/17); -- zosyn was dc'd with all cultures being neg and she remained afebrile -- developed hypoxia with a positive desat study -- DC'd Home with O2 f/u 01/20/[address] Joe RBBB (right bundle branch block) 09/24/2016 05/18/2018 Abnormality of gait 09/11/2016 01/21/2017 Secondary adrenal insufficiency 09/07/2016 04/27/2018 Type 2 diabetes mellitus wit h microalbuminuria, without long-term current use of insulin 07/02/2016 02/10/2022 Physical deconditioning 10/01/2015 09/07/20 16 Overview: Per LDT 10/30/15 fci charges Diarrhea 09/11/2015 01/21/2017 Overview: --increased watery stool output through ostomy; 01/16: c-diff neg --start imodium BID Acute pulmonary embolism 08/06/2015 016 Overview: --Patient presented with pleuritic Chest Pain, Heparin gtt initiated until PE ruled out --Negative for PE CT with PE protocol. Heparin drip was discontinued. 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 --c/o blood in urine & dysuria. 2+ Hb on UA. Check BK urine. Empiric cipro started --07/08- symptoms improving --07/09: +BK (162,000) copies: continue cipro for tx. 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 Treated w ganciclovir. Plan: - continue acyclovir - monitor tac levels Dysmetabolic syndrome X 09/07/20 16 Obesity 09/08/2017 Overview: Obesity class III Body mass index is 32.09 kg/(m^2). 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 Treated with vori, then changed to posa d/t presumed resistance. Repeat CT chest 10/12/14 improved. 12/14/14 CT clear --ppx posa PFO (patent foramen ovale) 11/06 Obstructive lung disease (generalized) 02/04/2016 Overview: --monitor. No h/o smoking. Not currently on any treatment at this time. Reduced FEV1 and DLCO. recent Pneumothorax on right Overview: --right sided chest pain that radiates to the scapula. Worse with deep breath. Scapula tender to palpation. -- CXR showedsmall right apical pneumothorax. EKG unremarkable. Cardiac enzymes negative. --Right apical pneumothorax most likely cause of her chest pain. No respiratory distress. On room air. --11/30 CXR shows pneumo no longer visible. 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 food related vs GVHD; pt cutting back on snacking today; on GVHD diet (GI soft/fiber controlled). --stool [id number] 07/05 (down from 2500ml 07/04). Some blood in stool overnight 07/05; platelets transfused. No blood noted afterward. --increased stool 1725ml 07/06. No colonoscopy; continue to hold off on ECP; 07/09-stool output decreasing; monitor documented as of this encounter (statuses as of 03/09/2022) [facility]09-09-2020 History of Past illness Narrative* Problem Noted Date Resolved Date Parastomal hernia 05/29/2020 06/04/2020 Last Assessment & Plan: Assessment: s/p 05/29 parastomal hernia repair with TAR PLAN: -continue postoperative care Itching 01/11/2018 02/18/2018 Insomnia 01/11/2018 09/18/2018 Abnormal echocardiogram 06/03/2017 09/02/20 17 SBO (small bowel obstruction) 01/25/2017 Abdominal pain 01/25/2017 01/25/2017 Overview: --01/24 Outside ER admit for 06/29 abd pain, decreased Colostomy output. CT 01/24/17 with new hernia in RLQ. --01/25 Pt states no abd pain/craming and pain 0/10, +stool output and tolerating liquids and solids. Plan for General Surg f/u outpatient for h/o SBO. 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 may need to increase FK and/or start low dose steroids Bronchopneumonia due to human metapneumovirus (h MPV) 01/14/2017 01/29/2017 Overview: -- presented as fever, cough, sinus NULL. -- RVP was (+) for Human metapneumovirus --CXR ? basilar atalectasis v pneumonia; --CT sinus acute sinusitis - u/a C&S neg - had persistent fevers and received 2 days of zosyn (01/16-01/17); -- zosyn was dc'd with all cultures being neg and she remained afebrile -- developed hypoxia with a positive desat study -- DC'd Home with O2 f/u 01/20/[address] Tatyana KIM (right bundle branch block) 09/24/2016 05/18/2018 Abnormality of gait 09/11/2016 01/21/2017 Secondary adrenal insufficiency 09/07/2016 04/27/2018 Type 2 diabetes mellitus wit h microalbuminuria, without long-term current use of insulin 07/02/2016 02/10/2022 Physical deconditioning 10/01/2015 09/07/20 16 Overview: Per LDT 10/30/15 fci charges Diarrhea 09/11/2015 01/21/2017 Overview: --increased watery stool output through ostomy; 01/16: c-diff neg --start imodium BID Acute pulmonary embolism 08/06/2015 016 Overview: --Patient presented with pleuritic Chest Pain, Heparin gtt initiated until PE ruled out --Negative for PE CT with PE protocol. Heparin drip was discontinued. 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 --c/o blood in urine & dysuria. 2+ Hb on UA. Check BK urine. Empiric cipro started --07/08- symptoms improving --07/09: +BK (162,000) copies: continue cipro for tx. 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 Treated w ganciclovir. Plan: - continue acyclovir - monitor tac levels Dysmetabolic syndrome X 09/07/20 Obesity 09/08/2017 Overview: Obesity class III Body mass index is 32.09 kg/(m^2). 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 Treated with vori, then changed to posa d/t presumed resistance. Repeat CT chest 10/12/14 improved. 12/14/14 CT clear --ppx posa PFO (patent foramen ovale) 11/06 Obstructive lung disease (generalized) 02/04/2016 Overview: --monitor. No h/o smoking. Not currently on any treatment at this time. Reduced FEV1 and DLCO. recent Pneumothorax on right Overview: --right sided chest pain that radiates to the scapula. Worse with deep breath. Scapula tender to palpation. -- CXR showedsmall right apical pneumothorax. EKG unremarkable. Cardiac enzymes negative. --Right apical pneumothorax most likely cause of her chest pain. No respiratory distress. On room air. --11/30 CXR shows pneumo no longer visible. 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 food related vs GVHD; pt cutting back on snacking today; on GVHD diet (GI soft/fiber controlled). --stool [id number] 07/05 (down from 2500ml 07/04). Some blood in stool overnight 07/05; platelets transfused. No blood noted afterward. --increased stool 1725ml 07/06. No colonoscopy; continue to hold off on ECP; 07/09-stool output decreasing; monitor documented as of this encounter (statuses as of 03/18/2022) [facility]09-09-2020 History of Past illness Narrative* Problem Noted Date Resolved Date Parastomal hernia 05/29/2020 06/04/2020 Last Assessment & Plan: Assessment: s/p 05/29 parastomal hernia repair with TAR PLAN: -continue postoperative care Itching 01/11/2018 02/18/2018 Insomnia 01/11/2018 09/18/2018 Abnormal echocardiogram 06/03/2017 09/02/20 17 SBO (small bowel obstruction) 01/25/2017 Abdominal pain 01/25/2017 01/25/2017 Overview: --01/24 Outside ER admit for 10 abd pain, decreased Colostomy output. CT 01/24/17 with new hernia in RLQ. --58 Pt states no abd pain/craming and pain 0/10, +stool output and tolerating liquids and solids. Plan for General Surg f/u outpatient for h/o SBO. 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 may need to increase FK and/or start low dose steroids Bronchopneumonia due to human metapneumovirus (h MPV) 01/14/2017 01/29/2017 Overview: -- presented as fever, cough, sinus NULL. -- RVP was (+) for Human metapneumovirus --CXR ? basilar atalectasis v pneumonia; --CT sinus acute sinusitis - u/a C&S neg - had persistent fevers and received 2 days of zosyn (01/16-01/17); -- zosyn was dc'd with all cultures being neg and she remained afebrile -- developed hypoxia with a positive desat study -- DC'd Home with O2 f/u 01/20/[address] Tatyana KIM (right bundle branch block) 09/24/2016 05/18/2018 Abnormality of gait 09/11/2016 01/21/2017 Secondary adrenal insufficiency 09/07/2016 04/27/2018 Type 2 diabetes mellitus wit h microalbuminuria, without long-term current use of insulin 07/02/2016 02/10/2022 Physical deconditioning 10/01/2015 09/07/20 16 Overview: Per LDT 10/30/15 fci charges Diarrhea 09/11/2015 01/21/2017 Overview: --increased watery stool output through ostomy; 01/16: c-diff neg --start imodium BID Acute pulmonary embolism 08/06/2015 016 Overview: --Patient presented with pleuritic Chest Pain, Heparin gtt initiated until PE ruled out --Negative for PE CT with PE protocol. Heparin drip was discontinued. 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 --c/o blood in urine & dysuria. 2+ Hb on UA. Check BK urine. Empiric cipro started --07/08- symptoms improving --07/09: +BK (162,000) copies: continue cipro for tx. 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 Treated w ganciclovir. Plan: - continue acyclovir - monitor tac levels Dysmetabolic syndrome X 09/07/20 16 Obesity 09/08/2017 Overview: Obesity class III Body mass index is 32.09 kg/(m^2). 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 Treated with vori, then changed to posa d/t presumed resistance. Repeat CT chest 10/12/14 improved. 12/14/14 CT clear --ppx posa PFO (patent foramen ovale) 11/06 Obstructive lung disease (generalized) 02/04/2016 Overview: --monitor. No h/o smoking. Not currently on any treatment at this time. Reduced FEV1 and DLCO. recent Pneumothorax on right Overview: --right sided chest pain that radiates to the scapula. Worse with deep breath. Scapula tender to palpation. -- CXR showedsmall right apical pneumothorax. EKG unremarkable. Cardiac enzymes negative. --Right apical pneumothorax most likely cause of her chest pain. No respiratory distress. On room air. --11/30 CXR shows pneumo no longer visible. 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 food related vs GVHD; pt cutting back on snacking today; on GVHD diet (GI soft/fiber controlled). --stool [id number] 07/05 (down from 2500ml 07/04). Some blood in stool overnight 07/05; platelets transfused. No blood noted afterward. --increased stool 1725ml 07/06. No colonoscopy; continue to hold off on ECP; 07/09-stool output decreasing; monitor documented as of this encounter (statuses as of 03/30/2022) [facility]09-09-2020 History of Past illness Narrative* Problem Noted Date Resolved Date Parastomal hernia 05/29/2020 06/04/2020 Last Assessment & Plan: Assessment: s/p 05/29 parastomal hernia repair with TAR PLAN: -continue postoperative care Itching 01/11/2018 02/18/2018 Insomnia 01/11/2018 09/18/2018 Abnormal echocardiogram 06/03/2017 09/02/20 17 SBO (small bowel obstruction) 01/25/2017 Abdominal pain 01/25/2017 01/25/2017 Overview: --5/7 Outside ER admit for 06/29 abd pain, decreased Colostomy output. CT 01/24/17 with new hernia in RLQ. --01/25 Pt states no abd pain/craming and pain 0/10, +stool output and tolerating liquids and solids. Plan for General Surg f/u outpatient for h/o SBO. 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 may need to increase FK and/or start low dose steroids Bronchopneumonia due to human metapneumovirus (h MPV) 01/14/2017 01/29/2017 Overview: -- presented as fever, cough, sinus NULL. -- RVP was (+) for Human metapneumovirus --CXR ? basilar atalectasis v pneumonia; --CT sinus acute sinusitis - u/a C&S neg - had persistent fevers and received 2 days of zosyn (01/16-01/17); -- zosyn was dc'd with all cultures being neg and she remained afebrile -- developed hypoxia with a positive desat study -- DC'd Home with O2 f/u 01/20/[address] Tatyana KIM (right bundle branch block) 09/24/2016 05/18/2018 Abnormality of gait 09/11/2016 01/21/2017 Secondary adrenal insufficiency 09/07/2016 04/27/2018 Type 2 diabetes mellitus wit h microalbuminuria, without long-term current use of insulin 07/02/2016 02/10/2022 Physical deconditioning 10/01/2015 09/07/20 16 Overview: Per LDT 10/30/15 fci charges Diarrhea 09/11/2015 01/21/2017 Overview: --increased watery stool output through ostomy; 01/16: c-diff neg --start imodium BID Acute pulmonary embolism 08/06/2015 016 Overview: --Patient presented with pleuritic Chest Pain, Heparin gtt initiated until PE ruled out --Negative for PE CT with PE protocol. Heparin drip was discontinued. 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 --c/o blood in urine & dysuria. 2+ Hb on UA. Check BK urine. Empiric cipro started --07/08- symptoms improving --07/09: +BK (162,000) copies: continue cipro for tx. 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 Treated w ganciclovir. Plan: - continue acyclovir - monitor tac levels Dysmetabolic syndrome X 09/07/20 16 Obesity 09/08/2017 Overview: Obesity class III Body mass index is 32.09 kg/(m^2). 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 Treated with vori, then changed to posa d/t presumed resistance. Repeat CT chest 10/12/14 improved. 12/14/14 CT clear --ppx posa PFO (patent foramen ovale) 11/06 Obstructive lung disease (generalized) 02/04/2016 Overview: --monitor. No h/o smoking. Not currently on any treatment at this time. Reduced FEV1 and DLCO. recent Pneumothorax on right Overview: --right sided chest pain that radiates to the scapula. Worse with deep breath. Scapula tender to palpation. -- CXR showedsmall right apical pneumothorax. EKG unremarkable. Cardiac enzymes negative. --Right apical pneumothorax most likely cause of her chest pain. No respiratory distress. On room air. --11/30 CXR shows pneumo no longer visible. 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 food related vs GVHD; pt cutting back on snacking today; on GVHD diet (GI soft/fiber controlled). --stool [id number] 07/05 (down from 2500ml 07/04). Some blood in stool overnight 07/05; platelets transfused. No blood noted afterward. --increased stool 1725ml 07/06. No colonoscopy; continue to hold off on ECP; 07/09-stool output decreasing; monitor documented as of this encounter (statuses as of 04/03/2022) [facility]09-09-2020 History of Past illness Narrative* Problem Noted Date Resolved Date Parastomal hernia 05/29/2020 06/04/2020 Last Assessment & Plan: Assessment: s/p 05/29 parastomal hernia repair with TAR PLAN: -continue postoperative care Itching 01/11/2018 02/18/2018 Insomnia 01/11/2018 09/18/2018 Abnormal echocardiogram 06/03/2017 09/02/20 17 SBO (small bowel obstruction) 01/25/2017 Abdominal pain 01/25/2017 01/25/2017 Overview: --01/24 Outside ER admit for 06/29 abd pain, decreased Colostomy output. CT 01/24/17 with new hernia in RLQ. --01/25 Pt states no abd pain/craming and pain 0/10, +stool output and tolerating liquids and solids. Plan for General Surg f/u outpatient for h/o SBO. 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 may need to increase FK and/or start low dose steroids Bronchopneumonia due to human metapneumovirus (h MPV) 01/14/2017 01/29/2017 Overview: -- presented as fever, cough, sinus NULL. -- RVP was (+) for Human metapneumovirus --CXR ? basilar atalectasis v pneumonia; --CT sinus acute sinusitis - u/a C&S neg - had persistent fevers and received 2 days of zosyn (01/16-01/17); -- zosyn was dc'd with all cultures being neg and she remained afebrile -- developed hypoxia with a positive desat study -- DC'd Home with O2 f/u 01/20/[address] Joe RBBB (right bundle branch block) 09/24/2016 05/18/2018 Abnormality of gait 09/11/2016 01/21/2017 Secondary adrenal insufficiency 09/07/2016 04/27/2018 Type 2 diabetes mellitus wit h microalbuminuria, without long-term current use of insulin 07/02/2016 02/10/2022 Physical deconditioning 10/01/2015 09/07/20 16 Overview: Per LDT 10/30/15 fci charges Diarrhea 09/11/2015 01/21/2017 Overview: --increased watery stool output through ostomy; 01/16: c-diff neg --start imodium BID Acute pulmonary embolism 08/06/2015 016 Overview: --Patient presented with pleuritic Chest Pain, Heparin gtt initiated until PE ruled out --Negative for PE CT with PE protocol. Heparin drip was discontinued. 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 --c/o blood in urine & dysuria. 2+ Hb on UA. Check BK urine. Empiric cipro started --07/08- symptoms improving --07/09: +BK (162,000) copies: continue cipro for tx. 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 Treated w ganciclovir. Plan: - continue acyclovir - monitor tac levels Dysmetabolic syndrome X 09/07/20 16 Obesity 09/08/2017 Overview: Obesity class III Body mass index is 32.09 kg/(m^2). 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 Treated with vori, then changed to posa d/t presumed resistance. Repeat CT chest 10/12/14 improved. 12/14/14 CT clear --ppx posa PFO (patent foramen ovale) 11/06 Obstructive lung disease (generalized) 02/04/2016 Overview: --monitor. No h/o smoking. Not currently on any treatment at this time. Reduced FEV1 and DLCO. recent Pneumothorax on right Overview: --right sided chest pain that radiates to the scapula. Worse with deep breath. Scapula tender to palpation. -- CXR showedsmall right apical pneumothorax. EKG unremarkable. Cardiac enzymes negative. --Right apical pneumothorax most likely cause of her chest pain. No respiratory distress. On room air. --11/30 CXR shows pneumo no longer visible. 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 food related vs GVHD; pt cutting back on snacking today; on GVHD diet (GI soft/fiber controlled). --stool [id number] 07/05 (down from 2500ml 07/04). Some blood in stool overnight 07/05; platelets transfused. No blood noted afterward. --increased stool 1725ml 07/06. No colonoscopy; continue to hold off on ECP; 07/09-stool output decreasing; monitor documented as of this encounter (statuses as of 04/21/2022) [facility]09-09-2020 History of Past illness Narrative* Problem Noted Date Resolved Date Parastomal hernia 05/29/2020 06/04/2020 Last Assessment & Plan: Assessment: s/p 05/29 parastomal hernia repair with TAR PLAN: -continue postoperative care Itching 01/11/2018 02/18/2018 Insomnia 01/11/2018 09/18/2018 Abnormal echocardiogram 06/03/2017 09/02/20 17 SBO (small bowel obstruction) 01/25/2017 Abdominal pain 01/25/2017 01/25/2017 Overview: --01/24 Outside ER admit for 06/29 abd pain, decreased Colostomy output. CT 01/24/17 with new hernia in RLQ. --58 Pt states no abd pain/craming and pain 0/10, +stool output and tolerating liquids and solids. Plan for General Surg f/u outpatient for h/o SBO. 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 may need to increase FK and/or start low dose steroids Bronchopneumonia due to human metapneumovirus (h MPV) 01/14/2017 01/29/2017 Overview: -- presented as fever, cough, sinus NULL. -- RVP was (+) for Human metapneumovirus --CXR ? basilar atalectasis v pneumonia; --CT sinus acute sinusitis - u/a C&S neg - had persistent fevers and received 2 days of zosyn (01/16-01/17); -- zosyn was dc'd with all cultures being neg and she remained afebrile -- developed hypoxia with a positive desat study -- DC'd Home with O2 f/u 01/20/[address] Tatyana THORNTONBB (right bundle branch block) 09/24/2016 05/18/2018 Abnormality of gait 09/11/2016 01/21/2017 Secondary adrenal insufficiency 09/07/2016 04/27/2018 Type 2 diabetes mellitus wit h microalbuminuria, without long-term current use of insulin 07/02/2016 02/10/2022 Physical deconditioning 10/01/2015 09/07/20 16 Overview: Per LDT 10/30/15 fci charges Diarrhea 09/11/2015 01/21/2017 Overview: --increased watery stool output through ostomy; 01/16: c-diff neg --start imodium BID Acute pulmonary embolism 08/06/2015 016 Overview: --Patient presented with pleuritic Chest Pain, Heparin gtt initiated until PE ruled out --Negative for PE CT with PE protocol. Heparin drip was discontinued. 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 --c/o blood in urine & dysuria. 2+ Hb on UA. Check BK urine. Empiric cipro started --07/08- symptoms improving --07/09: +BK (162,000) copies: continue cipro for tx. 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 Treated w ganciclovir. Plan: - continue acyclovir - monitor tac levels Dysmetabolic syndrome X 09/07/20 16 Obesity 09/08/2017 Overview: Obesity class III Body mass index is 32.09 kg/(m^2). 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 Treated with vori, then changed to posa d/t presumed resistance. Repeat CT chest 10/12/14 improved. 12/14/14 CT clear --ppx posa PFO (patent foramen ovale) 11/06 Obstructive lung disease (generalized) 02/04/2016 Overview: --monitor. No h/o smoking. Not currently on any treatment at this time. Reduced FEV1 and DLCO. recent Pneumothorax on right Overview: --right sided chest pain that radiates to the scapula. Worse with deep breath. Scapula tender to palpation. -- CXR showedsmall right apical pneumothorax. EKG unremarkable. Cardiac enzymes negative. --Right apical pneumothorax most likely cause of her chest pain. No respiratory distress. On room air. --11/30 CXR shows pneumo no longer visible. 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 food related vs GVHD; pt cutting back on snacking today; on GVHD diet (GI soft/fiber controlled). --stool [id number] 07/05 (down from 2500ml 07/04). Some blood in stool overnight 07/05; platelets transfused. No blood noted afterward. --increased stool 1725ml 07/06. No colonoscopy; continue to hold off on ECP; 07/09-stool output decreasing; monitor documented as of this encounter (statuses as of 04/22/2022) [facility]09-[facility]-2020 History of Past illness Narrative* Problem Noted Date Resolved Date Parastomal hernia 05/29/2020 06/04/2020 Last Assessment & Plan: Assessment: s/p 05/29 parastomal hernia repair with TAR PLAN: -continue postoperative care Itching 01/11/2018 02/18/2018 Insomnia 01/11/2018 09/18/2018 Abnormal echocardiogram 06/03/2017 09/02/20 17 SBO (small bowel obstruction) 01/25/2017 Abdominal pain 01/25/2017 01/25/2017 Overview: --01/24 Outside ER admit for 10/10 abd pain, decreased Colostomy output. CT 01/24/17 with new hernia in RLQ. --01/25 Pt states no abd pain/craming and pain 0/10, +stool output and tolerating liquids and solids. Plan for General Surg f/u outpatient for h/o SBO. 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 may need to increase FK and/or start low dose steroids Bronchopneumonia due to human metapneumovirus (h MPV) 01/14/2017 01/29/2017 Overview: -- presented as fever, cough, sinus NULL. -- RVP was (+) for Human metapneumovirus --CXR ? basilar atalectasis v pneumonia; --CT sinus acute sinusitis - u/a C&S neg - had persistent fevers and received 2 days of zosyn (01/16-01/17); -- zosyn was dc'd with all cultures being neg and she remained afebrile -- developed hypoxia with a positive desat study -- DC'd Home with O2 f/u 01/20/[address] Tatyana THORNTONBB (right bundle branch block) 09/24/2016 05/18/2018 Abnormality of gait 09/11/2016 01/21/2017 Secondary adrenal insufficiency 09/07/2016 04/27/2018 Type 2 diabetes mellitus wit h microalbuminuria, without long-term current use of insulin 07/02/2016 02/10/2022 Physical deconditioning 10/01/2015 09/07/20 16 Overview: Per LDT 10/30/15 fci charges Diarrhea 09/11/2015 01/21/2017 Overview: --increased watery stool output through ostomy; 01/16: c-diff neg --start imodium BID Acute pulmonary embolism 08/06/2015 016 Overview: --Patient presented with pleuritic Chest Pain, Heparin gtt initiated until PE ruled out --Negative for PE CT with PE protocol. Heparin drip was discontinued. 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 --c/o blood in urine & dysuria. 2+ Hb on UA. Check BK urine. Empiric cipro started --07/08- symptoms improving --07/09: +BK (162,000) copies: continue cipro for tx. 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 Treated w ganciclovir. Plan: - continue acyclovir - monitor tac levels Dysmetabolic syndrome X 09/07/20 16 Obesity 09/08/2017 Overview: Obesity class III Body mass index is 32.09 kg/(m^2). 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 Treated with vori, then changed to posa d/t presumed resistance. Repeat CT chest 10/12/14 improved. 12/14/14 CT clear --ppx posa PFO (patent foramen ovale) 11/06 Obstructive lung disease (generalized) 02/04/2016 Overview: --monitor. No h/o smoking. Not currently on any treatment at this time. Reduced FEV1 and DLCO. recent Pneumothorax on right Overview: --right sided chest pain that radiates to the scapula. Worse with deep breath. Scapula tender to palpation. -- CXR showedsmall right apical pneumothorax. EKG unremarkable. Cardiac enzymes negative. --Right apical pneumothorax most likely cause of her chest pain. No respiratory distress. On room air. --11/30 CXR shows pneumo no longer visible. 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 food related vs GVHD; pt cutting back on snacking today; on GVHD diet (GI soft/fiber controlled). --stool [id number] 07/05 (down from 2500ml 07/04). Some blood in stool overnight 07/05; platelets transfused. No blood noted afterward. --increased stool 1725ml 07/06. No colonoscopy; continue to hold off on ECP; 07/09-stool output decreasing; monitor documented as of this encounter (statuses as of 04/23/2022) [facility]09-[facility] History of Past illness Narrative* Problem Noted Date Resolved Date Parastomal hernia 05/29/2020 06/04/2020 Last Assessment & Plan: Assessment: s/p 05/29 parastomal hernia repair with TAR PLAN: -continue postoperative care Itching 01/11/2018 02/18/2018 Insomnia 01/11/2018 09/18/2018 Abnormal echocardiogram 06/03/2017 09/02/20 17 SBO (small bowel obstruction) 01/25/2017 Abdominal pain 01/25/2017 01/25/2017 Overview: --01/24 Outside ER admit for 10/10 abd pain, decreased Colostomy output. CT 01/24/17 with new hernia in RLQ. --01/25 Pt states no abd pain/craming and pain 0/10, +stool output and tolerating liquids and solids. Plan for General Surg f/u outpatient for h/o SBO. 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 may need to increase FK and/or start low dose steroids Bronchopneumonia due to human metapneumovirus (h MPV) 01/14/2017 01/29/2017 Overview: -- presented as fever, cough, sinus NULL. -- RVP was (+) for Human metapneumovirus --CXR ? basilar atalectasis v pneumonia; --CT sinus acute sinusitis - u/a C&S neg - had persistent fevers and received 2 days of zosyn (01/16-01/17); -- zosyn was dc'd with all cultures being neg and she remained afebrile -- developed hypoxia with a positive desat study -- DC'd Home with O2 f/u 01/20/[address] Majhail RBBB (right bundle branch block) 09/24/2016 05/18/2018 Abnormality of gait 09/11/2016 01/21/2017 Secondary adrenal insufficiency 09/07/2016 04/27/2018 Type 2 diabetes mellitus wit h microalbuminuria, without long-term current use of insulin 07/02/2016 02/10/2022 Physical deconditioning 10/01/2015 09/07/20 16 Overview: Per LDT 10/30/15 fci charges Diarrhea 09/11/2015 01/21/2017 Overview: --increased watery stool output through ostomy; 01/16: c-diff neg --start imodium BID Acute pulmonary embolism 08/06/2015 016 Overview: --Patient presented with pleuritic Chest Pain, Heparin gtt initiated until PE ruled out --Negative for PE CT with PE protocol. Heparin drip was discontinued. 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 --c/o blood in urine & dysuria. 2+ Hb on UA. Check BK urine. Empiric cipro started --07/08- symptoms improving --07/09: +BK (162,000) copies: continue cipro for tx. 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 Treated w ganciclovir. Plan: - continue acyclovir - monitor tac levels Dysmetabolic syndrome X 09/07/20 16 Obesity 09/08/2017 Overview: Obesity class III Body mass index is 32.09 kg/(m^2). 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 Treated with vori, then changed to posa d/t presumed resistance. Repeat CT chest 10/12/14 improved. 12/14/14 CT clear --ppx posa PFO (patent foramen ovale) 11/06 Obstructive lung disease (generalized) 02/04/2016 Overview: --monitor. No h/o smoking. Not currently on any treatment at this time. Reduced FEV1 and DLCO. recent Pneumothorax on right Overview: --right sided chest pain that radiates to the scapula. Worse with deep breath. Scapula tender to palpation. -- CXR showedsmall right apical pneumothorax. EKG unremarkable. Cardiac enzymes negative. --Right apical pneumothorax most likely cause of her chest pain. No respiratory distress. On room air. --11/30 CXR shows pneumo no longer visible. 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 food related vs GVHD; pt cutting back on snacking today; on GVHD diet (GI soft/fiber controlled). --stool [id number] 07/05 (down from 2500ml 07/04). Some blood in stool overnight 07/05; platelets transfused. No blood noted afterward. --increased stool 1725ml 07/06. No colonoscopy; continue to hold off on ECP; 07/09-stool output decreasing; monitor documented as of this encounter (statuses as of 04/24/2022) [facility]09-[facility]-2020 History of Past illness Narrative* Problem Noted Date Resolved Date Parastomal hernia 05/29/2020 06/04/2020 Last Assessment & Plan: Assessment: s/p 05/29 parastomal hernia repair with TAR PLAN: -continue postoperative care Itching 01/11/2018 02/18/2018 Insomnia 01/11/2018 09/18/2018 Abnormal echocardiogram 06/03/2017 09/02/20 17 SBO (small bowel obstruction) 01/25/2017 Abdominal pain 01/25/2017 01/25/2017 Overview: --01/24 Outside ER admit for 10/10 abd pain, decreased Colostomy output. CT 01/24/17 with new hernia in RLQ. --01/25 Pt states no abd pain/craming and pain 0/10, +stool output and tolerating liquids and solids. Plan for General Surg f/u outpatient for h/o SBO. 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 may need to increase FK and/or start low dose steroids Bronchopneumonia due to human metapneumovirus (h MPV) 01/14/2017 01/29/2017 Overview: -- presented as fever, cough, sinus NULL. -- RVP was (+) for Human metapneumovirus --CXR ? basilar atalectasis v pneumonia; --CT sinus acute sinusitis - u/a C&S neg - had persistent fevers and received 2 days of zosyn (01/16-01/17); -- zosyn was dc'd with all cultures being neg and she remained afebrile -- developed hypoxia with a positive desat study -- DC'd Home with O2 f/u 01/20/[address] Tatyana KIM (right bundle branch block) 09/24/2016 05/18/2018 Abnormality of gait 09/11/2016 01/21/2017 Secondary adrenal insufficiency 09/07/2016 04/27/2018 Type 2 diabetes mellitus wit h microalbuminuria, without long-term current use of insulin 07/02/2016 02/10/2022 Physical deconditioning 10/01/2015 09/07/20 16 Overview: Per LDT 10/30/15 fci charges Diarrhea 09/11/2015 01/21/2017 Overview: --increased watery stool output through ostomy; 01/16: c-diff neg --start imodium BID Acute pulmonary embolism 08/06/2015 016 Overview: --Patient presented with pleuritic Chest Pain, Heparin gtt initiated until PE ruled out --Negative for PE CT with PE protocol. Heparin drip was discontinued. 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 --c/o blood in urine & dysuria. 2+ Hb on UA. Check BK urine. Empiric cipro started --07/08- symptoms improving --07/09: +BK (162,000) copies: continue cipro for tx. 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 Treated w ganciclovir. Plan: - continue acyclovir - monitor tac levels Dysmetabolic syndrome X 09/07/20 16 Obesity 09/08/2017 Overview: Obesity class III Body mass index is 32.09 kg/(m^2). 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 Treated with vori, then changed to posa d/t presumed resistance. Repeat CT chest 10/12/14 improved. 12/14/14 CT clear --ppx posa PFO (patent foramen ovale) 11/06 Obstructive lung disease (generalized) 02/04/2016 Overview: --monitor. No h/o smoking. Not currently on any treatment at this time. Reduced FEV1 and DLCO. recent Pneumothorax on right Overview: --right sided chest pain that radiates to the scapula. Worse with deep breath. Scapula tender to palpation. -- CXR showedsmall right apical pneumothorax. EKG unremarkable. Cardiac enzymes negative. --Right apical pneumothorax most likely cause of her chest pain. No respiratory distress. On room air. --11/30 CXR shows pneumo no longer visible. 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 food related vs GVHD; pt cutting back on snacking today; on GVHD diet (GI soft/fiber controlled). --stool [id number] 07/05 (down from 2500ml 07/04). Some blood in stool overnight 07/05; platelets transfused. No blood noted afterward. --increased stool 1725ml 07/06. No colonoscopy; continue to hold off on ECP; 07/09-stool output decreasing; monitor documented as of this encounter (statuses as of 04/24/2022) [facility]09-09-2020 History of Past illness Narrative* Problem Noted Date Resolved Date Parastomal hernia 05/29/2020 06/04/2020 Last Assessment & Plan: Assessment: s/p 05/29 parastomal hernia repair with TAR PLAN: -continue postoperative care Itching 01/11/2018 02/18/2018 Insomnia 01/11/2018 09/18/2018 Abnormal echocardiogram 06/03/2017 09/02/20 17 SBO (small bowel obstruction) 01/25/2017 Abdominal pain 01/25/2017 01/25/2017 Overview: --5/7 Outside ER admit for 10/10 abd pain, decreased Colostomy output. CT 01/24/17 with new hernia in RLQ. --5/8 Pt states no abd pain/craming and pain 0/10, +stool output and tolerating liquids and solids. Plan for General Surg f/u outpatient for h/o SBO. 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 may need to increase FK and/or start low dose steroids Bronchopneumonia due to human metapneumovirus (h MPV) 01/14/2017 01/29/2017 Overview: -- presented as fever, cough, sinus NULL. -- RVP was (+) for Human metapneumovirus --CXR ? basilar atalectasis v pneumonia; --CT sinus acute sinusitis - u/a C&S neg - had persistent fevers and received 2 days of zosyn (01/16-01/17); -- zosyn was dc'd with all cultures being neg and she remained afebrile -- developed hypoxia with a positive desat study -- DC'd Home with O2 f/u 01/20/[address] Tatyana KIM (right bundle branch block) 09/24/2016 05/18/2018 Abnormality of gait 09/11/2016 01/21/2017 Secondary adrenal insufficiency 09/07/2016 04/27/2018 Type 2 diabetes mellitus wit h microalbuminuria, without long-term current use of insulin 07/02/2016 02/10/2022 Physical deconditioning 10/01/2015 09/07/20 16 Overview: Per LDT 10/30/15 fci charges Diarrhea 09/11/2015 01/21/2017 Overview: --increased watery stool output through ostomy; 01/16: c-diff neg --start imodium BID Acute pulmonary embolism 08/06/2015 016 Overview: --Patient presented with pleuritic Chest Pain, Heparin gtt initiated until PE ruled out --Negative for PE CT with PE protocol. Heparin drip was discontinued. 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 --c/o blood in urine & dysuria. 2+ Hb on UA. Check BK urine. Empiric cipro started --07/08- symptoms improving --07/09: +BK (162,000) copies: continue cipro for tx. 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 Treated w ganciclovir. Plan: - continue acyclovir - monitor tac levels Dysmetabolic syndrome X 09/07/20 16 Obesity 09/08/2017 Overview: Obesity class III Body mass index is 32.09 kg/(m^2). 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 Treated with vori, then changed to posa d/t presumed resistance. Repeat CT chest 10/12/14 improved. 12/14/14 CT clear --ppx posa PFO (patent foramen ovale) 11/06 Obstructive lung disease (generalized) 02/04/2016 Overview: --monitor. No h/o smoking. Not currently on any treatment at this time. Reduced FEV1 and DLCO. recent Pneumothorax on right Overview: --right sided chest pain that radiates to the scapula. Worse with deep breath. Scapula tender to palpation. -- CXR showedsmall right apical pneumothorax. EKG unremarkable. Cardiac enzymes negative. --Right apical pneumothorax most likely cause of her chest pain. No respiratory distress. On room air. --11/30 CXR shows pneumo no longer visible. 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 food related vs GVHD; pt cutting back on snacking today; on GVHD diet (GI soft/fiber controlled). --stool [id number] 07/05 (down from 2500ml 07/04). Some blood in stool overnight 07/05; platelets transfused. No blood noted afterward. --increased stool 1725ml 07/06. No colonoscopy; continue to hold off on ECP; 07/09-stool output decreasing; monitor documented as of this encounter (statuses as of 04/22/2022) [facility]09-[facility]-2020 History of Past illness Narrative* Problem Noted Date Resolved Date Parastomal hernia 05/29/2020 06/04/2020 Last Assessment & Plan: Assessment: s/p 05/29 parastomal hernia repair with TAR PLAN: -continue postoperative care Itching 01/11/2018 02/18/2018 Insomnia 01/11/2018 09/18/2018 Abnormal echocardiogram 06/03/2017 09/02/20 17 SBO (small bowel obstruction) 01/25/2017 Abdominal pain 01/25/2017 01/25/2017 Overview: --01/24 Outside ER admit for 06/29 abd pain, decreased Colostomy output. CT 01/24/17 with new hernia in RLQ. --01/25 Pt states no abd pain/craming and pain 0/10, +stool output and tolerating liquids and solids. Plan for General Surg f/u outpatient for h/o SBO. 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 may need to increase FK and/or start low dose steroids Bronchopneumonia due to human metapneumovirus (h MPV) 01/14/2017 01/29/2017 Overview: -- presented as fever, cough, sinus NULL. -- RVP was (+) for Human metapneumovirus --CXR ? basilar atalectasis v pneumonia; --CT sinus acute sinusitis - u/a C&S neg - had persistent fevers and received 2 days of zosyn (01/16-01/17); -- zosyn was dc'd with all cultures being neg and she remained afebrile -- developed hypoxia with a positive desat study -- DC'd Home with O2 f/u 01/20/[address] Tatyana KIM (right bundle branch block) 09/24/2016 05/18/2018 Abnormality of gait 09/11/2016 01/21/2017 Secondary adrenal insufficiency 09/07/2016 04/27/2018 Type 2 diabetes mellitus wit h microalbuminuria, without long-term current use of insulin 07/02/2016 02/10/2022 Physical deconditioning 10/01/2015 09/07/20 16 Overview: Per LDT 10/30/15 fci charges Diarrhea 09/11/2015 01/21/2017 Overview: --increased watery stool output through ostomy; 01/16: c-diff neg --start imodium BID Acute pulmonary embolism 08/06/2015 016 Overview: --Patient presented with pleuritic Chest Pain, Heparin gtt initiated until PE ruled out --Negative for PE CT with PE protocol. Heparin drip was discontinued. 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 --c/o blood in urine & dysuria. 2+ Hb on UA. Check BK urine. Empiric cipro started --07/08- symptoms improving --07/09: +BK (162,000) copies: continue cipro for tx. 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 Treated w ganciclovir. Plan: - continue acyclovir - monitor tac levels Dysmetabolic syndrome X 09/07/20 16 Obesity 09/08/2017 Overview: Obesity class III Body mass index is 32.09 kg/(m^2). 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 Treated with vori, then changed to posa d/t presumed resistance. Repeat CT chest 10/12/14 improved. 12/14/14 CT clear --ppx posa PFO (patent foramen ovale) 11/06 Obstructive lung disease (generalized) 02/04/2016 Overview: --monitor. No h/o smoking. Not currently on any treatment at this time. Reduced FEV1 and DLCO. recent Pneumothorax on right Overview: --right sided chest pain that radiates to the scapula. Worse with deep breath. Scapula tender to palpation. -- CXR showedsmall right apical pneumothorax. EKG unremarkable. Cardiac enzymes negative. --Right apical pneumothorax most likely cause of her chest pain. No respiratory distress. On room air. --11/30 CXR shows pneumo no longer visible. 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 food related vs GVHD; pt cutting back on snacking today; on GVHD diet (GI soft/fiber controlled). --stool [id number] 07/05 (down from 2500ml 07/04). Some blood in stool overnight 07/05; platelets transfused. No blood noted afterward. --increased stool 1725ml 07/06. No colonoscopy; continue to hold off on ECP; 07/09-stool output decreasing; monitor documented as of this encounter (statuses as of 05/04/2022) [facility]09-[facility]-2020 History of Past illness Narrative* Problem Noted Date Resolved Date Parastomal hernia 05/29/2020 06/04/2020 Last Assessment & Plan: Assessment: s/p 05/29 parastomal hernia repair with TAR PLAN: -continue postoperative care Itching 01/11/2018 02/18/2018 Insomnia 01/11/2018 09/18/2018 Abnormal echocardiogram 06/03/2017 09/02/20 17 SBO (small bowel obstruction) 01/25/2017 Abdominal pain 01/25/2017 01/25/2017 Overview: --01/24 Outside ER admit for 06/29 abd pain, decreased Colostomy output. CT 01/24/17 with new hernia in RLQ. --01/25 Pt states no abd pain/craming and pain 0/10, +stool output and tolerating liquids and solids. Plan for General Surg f/u outpatient for h/o SBO. 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 may need to increase FK and/or start low dose steroids Bronchopneumonia due to human metapneumovirus (h MPV) 01/14/2017 01/29/2017 Overview: -- presented as fever, cough, sinus NULL. -- RVP was (+) for Human metapneumovirus --CXR ? basilar atalectasis v pneumonia; --CT sinus acute sinusitis - u/a C&S neg - had persistent fevers and received 2 days of zosyn (01/16-01/17); -- zosyn was dc'd with all cultures being neg and she remained afebrile -- developed hypoxia with a positive desat study -- DC'd Home with O2 f/u 01/20/[address] Tatyana KIM (right bundle branch block) 09/24/2016 05/18/2018 Abnormality of gait 09/11/2016 01/21/2017 Secondary adrenal insufficiency 09/07/2016 04/27/2018 Type 2 diabetes mellitus wit h microalbuminuria, without long-term current use of insulin 07/02/2016 02/10/2022 Physical deconditioning 10/01/2015 09/07/20 16 Overview: Per LDT 10/30/15 fci charges Diarrhea 09/11/2015 01/21/2017 Overview: --increased watery stool output through ostomy; 01/16: c-diff neg --start imodium BID Acute pulmonary embolism 08/06/2015 016 Overview: --Patient presented with pleuritic Chest Pain, Heparin gtt initiated until PE ruled out --Negative for PE CT with PE protocol. Heparin drip was discontinued. 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 --c/o blood in urine & dysuria. 2+ Hb on UA. Check BK urine. Empiric cipro started --07/08- symptoms improving --07/09: +BK (162,000) copies: continue cipro for tx. 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 Treated w ganciclovir. Plan: - continue acyclovir - monitor tac levels Dysmetabolic syndrome X 09/07/20 16 Obesity 09/08/2017 Overview: Obesity class III Body mass index is 32.09 kg/(m^2). 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 Treated with vori, then changed to posa d/t presumed resistance. Repeat CT chest 10/12/14 improved. 12/14/14 CT clear --ppx posa PFO (patent foramen ovale) 11/06 Obstructive lung disease (generalized) 02/04/2016 Overview: --monitor. No h/o smoking. Not currently on any treatment at this time. Reduced FEV1 and DLCO. recent Pneumothorax on right Overview: --right sided chest pain that radiates to the scapula. Worse with deep breath. Scapula tender to palpation. -- CXR showedsmall right apical pneumothorax. EKG unremarkable. Cardiac enzymes negative. --Right apical pneumothorax most likely cause of her chest pain. No respiratory distress. On room air. --11/30 CXR shows pneumo no longer visible. 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 food related vs GVHD; pt cutting back on snacking today; on GVHD diet (GI soft/fiber controlled). --stool [id number] 07/05 (down from 2500ml 07/04). Some blood in stool overnight 07/05; platelets transfused. No blood noted afterward. --increased stool 1725ml 07/06. No colonoscopy; continue to hold off on ECP; 07/09-stool output decreasing; monitor documented as of this encounter (statuses as of 05/08/2022) [facility]09-[facility]2020 History of Past illness Narrative* Problem Noted Date Resolved Date Parastomal hernia 05/29/2020 06/04/2020 Last Assessment & Plan: Assessment: s/p 05/29 parastomal hernia repair with TAR PLAN: -continue postoperative care Itching 01/11/2018 02/18/2018 Insomnia 01/11/2018 09/18/2018 Abnormal echocardiogram 06/03/2017 09/02/20 17 SBO (small bowel obstruction) 01/25/2017 Abdominal pain 01/25/2017 01/25/2017 Overview: --01/24 Outside ER admit for 06/29 abd pain, decreased Colostomy output. CT 01/24/17 with new hernia in RLQ. --01/25 Pt states no abd pain/craming and pain 0/10, +stool output and tolerating liquids and solids. Plan for General Surg f/u outpatient for h/o SBO. 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 may need to increase FK and/or start low dose steroids Bronchopneumonia due to human metapneumovirus (h MPV) 01/14/2017 01/29/2017 Overview: -- presented as fever, cough, sinus NULL. -- RVP was (+) for Human metapneumovirus --CXR ? basilar atalectasis v pneumonia; --CT sinus acute sinusitis - u/a C&S neg - had persistent fevers and received 2 days of zosyn (01/16-01/17); -- zosyn was dc'd with all cultures being neg and she remained afebrile -- developed hypoxia with a positive desat study -- DC'd Home with O2 f/u 01/20/[address] Tatyaan KIM (right bundle branch block) 09/24/2016 05/18/2018 Abnormality of gait 09/11/2016 01/21/2017 Secondary adrenal insufficiency 09/07/2016 04/27/2018 Type 2 diabetes mellitus wit h microalbuminuria, without long-term current use of insulin 07/02/2016 02/10/2022 Physical deconditioning 10/01/2015 09/07/20 16 Overview: Per LDT 10/30/15 fci charges Diarrhea 09/11/2015 01/21/2017 Overview: --increased watery stool output through ostomy; 01/16: c-diff neg --start imodium BID Acute pulmonary embolism 08/06/2015 016 Overview: --Patient presented with pleuritic Chest Pain, Heparin gtt initiated until PE ruled out --Negative for PE CT with PE protocol. Heparin drip was discontinued. 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 --c/o blood in urine & dysuria. 2+ Hb on UA. Check BK urine. Empiric cipro started --07/08- symptoms improving --07/09: +BK (162,000) copies: continue cipro for tx. 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 Treated w ganciclovir. Plan: - continue acyclovir - monitor tac levels Dysmetabolic syndrome X 09/07/20 16 Obesity 09/08/2017 Overview: Obesity class III Body mass index is 32.09 kg/(m^2). 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 Treated with vori, then changed to posa d/t presumed resistance. Repeat CT chest 10/12/14 improved. 12/14/14 CT clear --ppx posa PFO (patent foramen ovale) 11/06 Obstructive lung disease (generalized) 02/04/2016 Overview: --monitor. No h/o smoking. Not currently on any treatment at this time. Reduced FEV1 and DLCO. recent Pneumothorax on right Overview: --right sided chest pain that radiates to the scapula. Worse with deep breath. Scapula tender to palpation. -- CXR showedsmall right apical pneumothorax. EKG unremarkable. Cardiac enzymes negative. --Right apical pneumothorax most likely cause of her chest pain. No respiratory distress. On room air. --11/30 CXR shows pneumo no longer visible. 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 food related vs GVHD; pt cutting back on snacking today; on GVHD diet (GI soft/fiber controlled). --stool [id number] 07/05 (down from 2500ml 07/04). Some blood in stool overnight 07/05; platelets transfused. No blood noted afterward. --increased stool 1725ml 07/06. No colonoscopy; continue to hold off on ECP; 07/09-stool output decreasing; monitor documented as of this encounter (statuses as of 05/09/2022) [facility]09-[facility]2020 History of Past illness Narrative* Problem Noted Date Resolved Date Parastomal hernia 05/29/2020 06/04/2020 Last Assessment & Plan: Assessment: s/p 05/29 parastomal hernia repair with TAR PLAN: -continue postoperative care Itching 01/11/2018 02/18/2018 Insomnia 01/11/2018 09/18/2018 Abnormal echocardiogram 06/03/2017 09/02/20 17 SBO (small bowel obstruction) 01/25/2017 Abdominal pain 01/25/2017 01/25/2017 Overview: --01/24 Outside ER admit for 10 abd pain, decreased Colostomy output. CT 01/24/17 with new hernia in RLQ. --8 Pt states no abd pain/craming and pain 0/10, +stool output and tolerating liquids and solids. Plan for General Surg f/u outpatient for h/o SBO. 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 may need to increase FK and/or start low dose steroids Bronchopneumonia due to human metapneumovirus (h MPV) 01/14/2017 01/29/2017 Overview: -- presented as fever, cough, sinus NULL. -- RVP was (+) for Human metapneumovirus --CXR ? basilar atalectasis v pneumonia; --CT sinus acute sinusitis - u/a C&S neg - had persistent fevers and received 2 days of zosyn (01/16-01/17); -- zosyn was dc'd with all cultures being neg and she remained afebrile -- developed hypoxia with a positive desat study -- DC'd Home with O2 f/u 01/20/[address] Tatyana KIM (right bundle branch block) 09/24/2016 05/18/2018 Abnormality of gait 09/11/2016 01/21/2017 Secondary adrenal insufficiency 09/07/2016 04/27/2018 Type 2 diabetes mellitus wit h microalbuminuria, without long-term current use of insulin 07/02/2016 02/10/2022 Physical deconditioning 10/01/2015 09/07/20 16 Overview: Per LDT 10/30/15 fci charges Diarrhea 09/11/2015 01/21/2017 Overview: --increased watery stool output through ostomy; 01/16: c-diff neg --start imodium BID Acute pulmonary embolism 08/06/2015 016 Overview: --Patient presented with pleuritic Chest Pain, Heparin gtt initiated until PE ruled out --Negative for PE CT with PE protocol. Heparin drip was discontinued. 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 --c/o blood in urine & dysuria. 2+ Hb on UA. Check BK urine. Empiric cipro started --07/08- symptoms improving --07/09: +BK (162,000) copies: continue cipro for tx. 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 Treated w ganciclovir. Plan: - continue acyclovir - monitor tac levels Dysmetabolic syndrome X 09/07/20 16 Obesity 09/08/2017 Overview: Obesity class III Body mass index is 32.09 kg/(m^2). 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 Treated with vori, then changed to posa d/t presumed resistance. Repeat CT chest 10/12/14 improved. 12/14/14 CT clear --ppx posa PFO (patent foramen ovale) 11/06 Obstructive lung disease (generalized) 02/04/2016 Overview: --monitor. No h/o smoking. Not currently on any treatment at this time. Reduced FEV1 and DLCO. recent Pneumothorax on right Overview: --right sided chest pain that radiates to the scapula. Worse with deep breath. Scapula tender to palpation. -- CXR showedsmall right apical pneumothorax. EKG unremarkable. Cardiac enzymes negative. --Right apical pneumothorax most likely cause of her chest pain. No respiratory distress. On room air. --11/30 CXR shows pneumo no longer visible. 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 food related vs GVHD; pt cutting back on snacking today; on GVHD diet (GI soft/fiber controlled). --stool [id number] 07/05 (down from 2500ml 07/04). Some blood in stool overnight 07/05; platelets transfused. No blood noted afterward. --increased stool 1725ml 07/06. No colonoscopy; continue to hold off on ECP; 07/09-stool output decreasing; monitor documented as of this encounter (statuses as of 05/11/2022) [facility]09-09-2020 History of Past illness Narrative* Problem Noted Date Resolved Date Parastomal hernia 05/29/2020 06/04/2020 Last Assessment & Plan: Assessment: s/p 05/29 parastomal hernia repair with TAR PLAN: -continue postoperative care Itching 01/11/2018 02/18/2018 Insomnia 01/11/2018 09/18/2018 Abnormal echocardiogram 06/03/2017 09/02/20 17 SBO (small bowel obstruction) 01/25/2017 Abdominal pain 01/25/2017 01/25/2017 Overview: --01/24 Outside ER admit for 10 abd pain, decreased Colostomy output. CT 01/24/17 with new hernia in RLQ. --01/25 Pt states no abd pain/craming and pain 0/10, +stool output and tolerating liquids and solids. Plan for General Surg f/u outpatient for h/o SBO. 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 may need to increase FK and/or start low dose steroids Bronchopneumonia due to human metapneumovirus (h MPV) 01/14/2017 01/29/2017 Overview: -- presented as fever, cough, sinus NULL. -- RVP was (+) for Human metapneumovirus --CXR ? basilar atalectasis v pneumonia; --CT sinus acute sinusitis - u/a C&S neg - had persistent fevers and received 2 days of zosyn (01/16-01/17); -- zosyn was dc'd with all cultures being neg and she remained afebrile -- developed hypoxia with a positive desat study -- DC'd Home with O2 f/u 01/20/[address] Tatyana KIM (right bundle branch block) 09/24/2016 05/18/2018 Abnormality of gait 09/11/2016 01/21/2017 Secondary adrenal insufficiency 09/07/2016 04/27/2018 Type 2 diabetes mellitus wit h microalbuminuria, without long-term current use of insulin 07/02/2016 02/10/2022 Physical deconditioning 10/01/2015 09/07/20 16 Overview: Per LDT 10/30/15 fci charges Diarrhea 09/11/2015 01/21/2017 Overview: --increased watery stool output through ostomy; 01/16: c-diff neg --start imodium BID Acute pulmonary embolism 08/06/2015 016 Overview: --Patient presented with pleuritic Chest Pain, Heparin gtt initiated until PE ruled out --Negative for PE CT with PE protocol. Heparin drip was discontinued. 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 --c/o blood in urine & dysuria. 2+ Hb on UA. Check BK urine. Empiric cipro started --07/08- symptoms improving --07/09: +BK (162,000) copies: continue cipro for tx. 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 Treated w ganciclovir. Plan: - continue acyclovir - monitor tac levels Dysmetabolic syndrome X 09/07/20 16 Obesity 09/08/2017 Overview: Obesity class III Body mass index is 32.09 kg/(m^2). 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 Treated with vori, then changed to posa d/t presumed resistance. Repeat CT chest 10/12/14 improved. 12/14/14 CT clear --ppx posa PFO (patent foramen ovale) 11/06 Obstructive lung disease (generalized) 02/04/2016 Overview: --monitor. No h/o smoking. Not currently on any treatment at this time. Reduced FEV1 and DLCO. recent Pneumothorax on right Overview: --right sided chest pain that radiates to the scapula. Worse with deep breath. Scapula tender to palpation. -- CXR showedsmall right apical pneumothorax. EKG unremarkable. Cardiac enzymes negative. --Right apical pneumothorax most likely cause of her chest pain. No respiratory distress. On room air. --11/30 CXR shows pneumo no longer visible. 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 food related vs GVHD; pt cutting back on snacking today; on GVHD diet (GI soft/fiber controlled). --stool [id number] 07/05 (down from 2500ml 07/04). Some blood in stool overnight 07/05; platelets transfused. No blood noted afterward. --increased stool 1725ml 07/06. No colonoscopy; continue to hold off on ECP; 07/09-stool output decreasing; monitor documented as of this encounter (statuses as of 05/14/2022) [facility]09-[facility]-2020 History of Past illness Narrative* Problem Noted Date Resolved Date Parastomal hernia 05/29/2020 06/04/2020 Last Assessment & Plan: Assessment: s/p 05/29 parastomal hernia repair with TAR PLAN: -continue postoperative care Itching 01/11/2018 02/18/2018 Insomnia 01/11/2018 09/18/2018 Abnormal echocardiogram 06/03/2017 09/02/20 17 SBO (small bowel obstruction) 01/25/2017 Abdominal pain 01/25/2017 01/25/2017 Overview: --01/24 Outside ER admit for 06/29 abd pain, decreased Colostomy output. CT 01/24/17 with new hernia in RLQ. --01/25 Pt states no abd pain/craming and pain 0/10, +stool output and tolerating liquids and solids. Plan for General Surg f/u outpatient for h/o SBO. 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 may need to increase FK and/or start low dose steroids Bronchopneumonia due to human metapneumovirus (h MPV) 01/14/2017 01/29/2017 Overview: -- presented as fever, cough, sinus NULL. -- RVP was (+) for Human metapneumovirus --CXR ? basilar atalectasis v pneumonia; --CT sinus acute sinusitis - u/a C&S neg - had persistent fevers and received 2 days of zosyn (01/16-01/17); -- zosyn was dc'd with all cultures being neg and she remained afebrile -- developed hypoxia with a positive desat study -- DC'd Home with O2 f/u 01/20/[address] Tatyana KIM (right bundle branch block) 09/24/2016 05/18/2018 Abnormality of gait 09/11/2016 01/21/2017 Secondary adrenal insufficiency 09/07/2016 04/27/2018 Type 2 diabetes mellitus wit h microalbuminuria, without long-term current use of insulin 07/02/2016 02/10/2022 Physical deconditioning 10/01/2015 09/07/20 16 Overview: Per LDT 10/30/15 fci charges Diarrhea 09/11/2015 01/21/2017 Overview: --increased watery stool output through ostomy; 01/16: c-diff neg --start imodium BID Acute pulmonary embolism 08/06/2015 016 Overview: --Patient presented with pleuritic Chest Pain, Heparin gtt initiated until PE ruled out --Negative for PE CT with PE protocol. Heparin drip was discontinued. 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 --c/o blood in urine & dysuria. 2+ Hb on UA. Check BK urine. Empiric cipro started --07/08- symptoms improving --07/09: +BK (162,000) copies: continue cipro for tx. 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 Treated w ganciclovir. Plan: - continue acyclovir - monitor tac levels Dysmetabolic syndrome X 09/07/20 16 Obesity 09/08/2017 Overview: Obesity class III Body mass index is 32.09 kg/(m^2). 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 Treated with vori, then changed to posa d/t presumed resistance. Repeat CT chest 10/12/14 improved. 12/14/14 CT clear --ppx posa PFO (patent foramen ovale) 11/06 Obstructive lung disease (generalized) 02/04/2016 Overview: --monitor. No h/o smoking. Not currently on any treatment at this time. Reduced FEV1 and DLCO. recent Pneumothorax on right Overview: --right sided chest pain that radiates to the scapula. Worse with deep breath. Scapula tender to palpation. -- CXR showedsmall right apical pneumothorax. EKG unremarkable. Cardiac enzymes negative. --Right apical pneumothorax most likely cause of her chest pain. No respiratory distress. On room air. --11/30 CXR shows pneumo no longer visible. 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 food related vs GVHD; pt cutting back on snacking today; on GVHD diet (GI soft/fiber controlled). --stool [id number] 07/05 (down from 2500ml 07/04). Some blood in stool overnight 07/05; platelets transfused. No blood noted afterward. --increased stool 1725ml 07/06. No colonoscopy; continue to hold off on ECP; 07/09-stool output decreasing; monitor documented as of this encounter (statuses as of 05/15/2022) [facility]2020 History of Past illness Narrative* Problem Noted Date Resolved Date Parastomal hernia 05/29/2020 06/04/2020 Last Assessment & Plan: Assessment: s/p 05/29 parastomal hernia repair with TAR PLAN: -continue postoperative care Itching 01/11/2018 02/18/2018 Insomnia 01/11/2018 09/18/2018 Abnormal echocardiogram 06/03/2017 09/02/20 17 SBO (small bowel obstruction) 01/25/2017 Abdominal pain 01/25/2017 01/25/2017 Overview: --5/7 Outside ER admit for 10/10 abd pain, decreased Colostomy output. CT 01/24/17 with new hernia in RLQ. --5/8 Pt states no abd pain/craming and pain 0/10, +stool output and tolerating liquids and solids. Plan for General Surg f/u outpatient for h/o SBO. 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 may need to increase FK and/or start low dose steroids Bronchopneumonia due to human metapneumovirus (h MPV) 01/14/2017 01/29/2017 Overview: -- presented as fever, cough, sinus NULL. -- RVP was (+) for Human metapneumovirus --CXR ? basilar atalectasis v pneumonia; --CT sinus acute sinusitis - u/a C&S neg - had persistent fevers and received 2 days of zosyn (01/16-01/17); -- zosyn was dc'd with all cultures being neg and she remained afebrile -- developed hypoxia with a positive desat study -- DC'd Home with O2 f/u 01/20/[address] Tatyana KIM (right bundle branch block) 09/24/2016 05/18/2018 Abnormality of gait 09/11/2016 01/21/2017 Secondary adrenal insufficiency 09/07/2016 04/27/2018 Type 2 diabetes mellitus wit h microalbuminuria, without long-term current use of insulin 07/02/2016 02/10/2022 Physical deconditioning 10/01/2015 09/07/20 16 Overview: Per LDT 10/30/15 fci charges Diarrhea 09/11/2015 01/21/2017 Overview: --increased watery stool output through ostomy; 01/16: c-diff neg --start imodium BID Acute pulmonary embolism 08/06/2015 016 Overview: --Patient presented with pleuritic Chest Pain, Heparin gtt initiated until PE ruled out --Negative for PE CT with PE protocol. Heparin drip was discontinued. 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 --c/o blood in urine & dysuria. 2+ Hb on UA. Check BK urine. Empiric cipro started --07/08- symptoms improving --07/09: +BK (162,000) copies: continue cipro for tx. 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 Treated w ganciclovir. Plan: - continue acyclovir - monitor tac levels Dysmetabolic syndrome X 09/07/20 16 Obesity 09/08/2017 Overview: Obesity class III Body mass index is 32.09 kg/(m^2). 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 Treated with vori, then changed to posa d/t presumed resistance. Repeat CT chest 10/12/14 improved. 12/14/14 CT clear --ppx posa PFO (patent foramen ovale) 11/06 Obstructive lung disease (generalized) 02/04/2016 Overview: --monitor. No h/o smoking. Not currently on any treatment at this time. Reduced FEV1 and DLCO. recent Pneumothorax on right Overview: --right sided chest pain that radiates to the scapula. Worse with deep breath. Scapula tender to palpation. -- CXR showedsmall right apical pneumothorax. EKG unremarkable. Cardiac enzymes negative. --Right apical pneumothorax most likely cause of her chest pain. No respiratory distress. On room air. --11/30 CXR shows pneumo no longer visible. 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 food related vs GVHD; pt cutting back on snacking today; on GVHD diet (GI soft/fiber controlled). --stool [id number] 07/05 (down from 2500ml 07/04). Some blood in stool overnight 07/05; platelets transfused. No blood noted afterward. --increased stool 1725ml 07/06. No colonoscopy; continue to hold off on ECP; 07/09-stool output decreasing; monitor documented as of this encounter (statuses as of 05/21/2022) [facility]09-09-2020 History of Past illness Narrative* Problem Noted Date Resolved Date Parastomal hernia 05/29/2020 06/04/2020 Last Assessment & Plan: Assessment: s/p 05/29 parastomal hernia repair with TAR PLAN: -continue postoperative care Itching 01/11/2018 02/18/2018 Insomnia 01/11/2018 09/18/2018 Abnormal echocardiogram 06/03/2017 09/02/20 17 SBO (small bowel obstruction) 01/25/2017 Abdominal pain 01/25/2017 01/25/2017 Overview: --01/24 Outside ER admit for 10/10 abd pain, decreased Colostomy output. CT 01/24/17 with new hernia in RLQ. --8 Pt states no abd pain/craming and pain 0/10, +stool output and tolerating liquids and solids. Plan for General Surg f/u outpatient for h/o SBO. 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 may need to increase FK and/or start low dose steroids Bronchopneumonia due to human metapneumovirus (h MPV) 01/14/2017 01/29/2017 Overview: -- presented as fever, cough, sinus NULL. -- RVP was (+) for Human metapneumovirus --CXR ? basilar atalectasis v pneumonia; --CT sinus acute sinusitis - u/a C&S neg - had persistent fevers and received 2 days of zosyn (01/16-01/17); -- zosyn was dc'd with all cultures being neg and she remained afebrile -- developed hypoxia with a positive desat study -- DC'd Home with O2 f/u 01/20/[address] Tatyana KIM (right bundle branch block) 09/24/2016 05/18/2018 Abnormality of gait 09/11/2016 01/21/2017 Secondary adrenal insufficiency 09/07/2016 04/27/2018 Type 2 diabetes mellitus wit h microalbuminuria, without long-term current use of insulin 07/02/2016 02/10/2022 Physical deconditioning 10/01/2015 09/07/20 16 Overview: Per LDT 10/30/15 fci charges Diarrhea 09/11/2015 01/21/2017 Overview: --increased watery stool output through ostomy; 01/16: c-diff neg --start imodium BID Acute pulmonary embolism 08/06/2015 016 Overview: --Patient presented with pleuritic Chest Pain, Heparin gtt initiated until PE ruled out --Negative for PE CT with PE protocol. Heparin drip was discontinued. 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 --c/o blood in urine & dysuria. 2+ Hb on UA. Check BK urine. Empiric cipro started --07/08- symptoms improving --07/09: +BK (162,000) copies: continue cipro for tx. 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 Treated w ganciclovir. Plan: - continue acyclovir - monitor tac levels Dysmetabolic syndrome X 09/07/20 16 Obesity 09/08/2017 Overview: Obesity class III Body mass index is 32.09 kg/(m^2). 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 Treated with vori, then changed to posa d/t presumed resistance. Repeat CT chest 10/12/14 improved. 12/14/14 CT clear --ppx posa PFO (patent foramen ovale) 11/06 Obstructive lung disease (generalized) 02/04/2016 Overview: --monitor. No h/o smoking. Not currently on any treatment at this time. Reduced FEV1 and DLCO. recent Pneumothorax on right Overview: --right sided chest pain that radiates to the scapula. Worse with deep breath. Scapula tender to palpation. -- CXR showedsmall right apical pneumothorax. EKG unremarkable. Cardiac enzymes negative. --Right apical pneumothorax most likely cause of her chest pain. No respiratory distress. On room air. --11/30 CXR shows pneumo no longer visible. 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 food related vs GVHD; pt cutting back on snacking today; on GVHD diet (GI soft/fiber controlled). --stool [id number] 07/05 (down from 2500ml 07/04). Some blood in stool overnight 07/05; platelets transfused. No blood noted afterward. --increased stool 1725ml 07/06. No colonoscopy; continue to hold off on ECP; 07/09-stool output decreasing; monitor documented as of this encounter (statuses as of 05/26/2022) [facility]09-09-2020 History of Past illness Narrative* Problem Noted Date Resolved Date Parastomal hernia 05/29/2020 06/04/2020 Last Assessment & Plan: Assessment: s/p 05/29 parastomal hernia repair with TAR PLAN: -continue postoperative care Itching 01/11/2018 02/18/2018 Insomnia 01/11/2018 09/18/2018 Abnormal echocardiogram 06/03/2017 09/02/20 17 SBO (small bowel obstruction) 01/25/2017 Abdominal pain 01/25/2017 01/25/2017 Overview: --01/24 Outside ER admit for 06/29 abd pain, decreased Colostomy output. CT 01/24/17 with new hernia in RLQ. --01/25 Pt states no abd pain/craming and pain 0/10, +stool output and tolerating liquids and solids. Plan for General Surg f/u outpatient for h/o SBO. 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 may need to increase FK and/or start low dose steroids Bronchopneumonia due to human metapneumovirus (h MPV) 01/14/2017 01/29/2017 Overview: -- presented as fever, cough, sinus NULL. -- RVP was (+) for Human metapneumovirus --CXR ? basilar atalectasis v pneumonia; --CT sinus acute sinusitis - u/a C&S neg - had persistent fevers and received 2 days of zosyn (01/16-01/17); -- zosyn was dc'd with all cultures being neg and she remained afebrile -- developed hypoxia with a positive desat study -- DC'd Home with O2 f/u 01/20/[address] Tatyana KIM (right bundle branch block) 09/24/2016 05/18/2018 Abnormality of gait 09/11/2016 01/21/2017 Secondary adrenal insufficiency 09/07/2016 04/27/2018 Type 2 diabetes mellitus wit h microalbuminuria, without long-term current use of insulin 07/02/2016 02/10/2022 Physical deconditioning 10/01/2015 09/07/20 16 Overview: Per LDT 10/30/15 fci charges Diarrhea 09/11/2015 01/21/2017 Overview: --increased watery stool output through ostomy; 01/16: c-diff neg --start imodium BID Acute pulmonary embolism 08/06/2015 016 Overview: --Patient presented with pleuritic Chest Pain, Heparin gtt initiated until PE ruled out --Negative for PE CT with PE protocol. Heparin drip was discontinued. 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 --c/o blood in urine & dysuria. 2+ Hb on UA. Check BK urine. Empiric cipro started --07/08- symptoms improving --07/09: +BK (162,000) copies: continue cipro for tx. S/P partial colectomy 06/20/2015 05/05/2017 Overview: --06/20/2015- ex lap, subtotal colectomy, and end ileostomy -- had some watery stoma output formed up on imodium -- home with prn imodium Cytomegalovirus (CMV) viremia 04/30/2015 Overview: H/o CMV viremia, last checked 2/15/16, 142 copies. 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 Treated w ganciclovir. Plan: - continue acyclovir - monitor tac levels Dysmetabolic syndrome X 09/07/20 16 Obesity 09/08/2017 Overview: Obesity class III Body mass index is 32.09 kg/(m^2). 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 Treated with vori, then changed to posa d/t presumed resistance. Repeat CT chest 10/12/14 improved. 12/14/14 CT clear --ppx posa PFO (patent foramen ovale) 11/06 Obstructive lung disease (generalized) 02/04/2016 Overview: --monitor. No h/o smoking. Not currently on any treatment at this time. Reduced FEV1 and DLCO. recent Pneumothorax on right Overview: --right sided chest pain that radiates to the scapula. Worse with deep breath. Scapula tender to palpation. -- CXR showedsmall right apical pneumothorax. EKG unremarkable. Cardiac enzymes negative. --Right apical pneumothorax most likely cause of her chest pain. No respiratory distress. On room air. --11/30 CXR shows pneumo no longer visible. 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 food related vs GVHD; pt cutting back on snacking today; on GVHD diet (GI soft/fiber controlled). --stool [id number] 07/05 (down from 2500ml 07/04). Some blood in stool overnight 07/05; platelets transfused. No blood noted afterward. --increased stool 1725ml 07/06. No colonoscopy; continue to hold off on ECP; 07/09-stool output decreasing; monitor documented as of this encounter (statuses as of 05/28/2022) [facility]09-09-2020 History of Past illness Narrative* Problem Noted Date Resolved Date Parastomal hernia 05/29/2020 06/04/2020 Last Assessment & Plan: Assessment: s/p 05/29 parastomal hernia repair with TAR PLAN: -continue postoperative care Itching 01/11/2018 02/18/2018 Insomnia 01/11/2018 09/18/2018 Abnormal echocardiogram 06/03/2017 09/02/20 17 SBO (small bowel obstruction) 01/25/2017 Abdominal pain 01/25/2017 01/25/2017 Overview: --01/24 Outside ER admit for 10 abd pain, decreased Colostomy output. CT 01/24/17 with new hernia in RLQ. --01/25 Pt states no abd pain/craming and pain 0/10, +stool output and tolerating liquids and solids. Plan for General Surg f/u outpatient for h/o SBO. 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 may need to increase FK and/or start low dose steroids Bronchopneumonia due to human metapneumovirus (h MPV) 01/14/2017 01/29/2017 Overview: -- presented as fever, cough, sinus NULL. -- RVP was (+) for Human metapneumovirus --CXR ? basilar atalectasis v pneumonia; --CT sinus acute sinusitis - u/a C&S neg - had persistent fevers and received 2 days of zosyn (01/16-01/17); -- zosyn was dc'd with all cultures being neg and she remained afebrile -- developed hypoxia with a positive desat study -- DC'd Home with O2 f/u 01/20/[address] Tatyana KIM (right bundle branch block) 09/24/2016 05/18/2018 Abnormality of gait 09/11/2016 01/21/2017 Secondary adrenal insufficiency 09/07/2016 04/27/2018 Type 2 diabetes mellitus wit h microalbuminuria, without long-term current use of insulin 07/02/2016 02/10/2022 Physical deconditioning 10/01/2015 09/07/20 16 Overview: Per LDT 10/30/15 fci charges Diarrhea 09/11/2015 01/21/2017 Overview: --increased watery stool output through ostomy; 01/16: c-diff neg --start imodium BID Acute pulmonary embolism 08/06/2015 016 Overview: --Patient presented with pleuritic Chest Pain, Heparin gtt initiated until PE ruled out --Negative for PE CT with PE protocol. Heparin drip was discontinued. 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 --c/o blood in urine & dysuria. 2+ Hb on UA. Check BK urine. Empiric cipro started --07/08- symptoms improving --07/09: +BK (162,000) copies: continue cipro for tx. 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 Treated w ganciclovir. Plan: - continue acyclovir - monitor tac levels Dysmetabolic syndrome X 09/07/20 16 Obesity 09/08/2017 Overview: Obesity class III Body mass index is 32.09 kg/(m^2). 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 Treated with vori, then changed to posa d/t presumed resistance. Repeat CT chest 10/12/14 improved. 12/14/14 CT clear --ppx posa PFO (patent foramen ovale) 11/06 Obstructive lung disease (generalized) 02/04/2016 Overview: --monitor. No h/o smoking. Not currently on any treatment at this time. Reduced FEV1 and DLCO. recent Pneumothorax on right Overview: --right sided chest pain that radiates to the scapula. Worse with deep breath. Scapula tender to palpation. -- CXR showedsmall right apical pneumothorax. EKG unremarkable. Cardiac enzymes negative. --Right apical pneumothorax most likely cause of her chest pain. No respiratory distress. On room air. --11/30 CXR shows pneumo no longer visible. 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 food related vs GVHD; pt cutting back on snacking today; on GVHD diet (GI soft/fiber controlled). --stool [id number] 07/05 (down from 2500ml 07/04). Some blood in stool overnight 07/05; platelets transfused. No blood noted afterward. --increased stool 1725ml 07/06. No colonoscopy; continue to hold off on ECP; 07/09-stool output decreasing; monitor documented as of this encounter (statuses as of 05/29/2022) [facility]09-09-2020 History of Past illness Narrative* Problem Noted Date Resolved Date Parastomal hernia 05/29/2020 06/04/2020 Last Assessment & Plan: Assessment: s/p 05/29 parastomal hernia repair with TAR PLAN: -continue postoperative care Itching 01/11/2018 02/18/2018 Insomnia 01/11/2018 09/18/2018 Abnormal echocardiogram 06/03/2017 09/02/20 17 SBO (small bowel obstruction) 01/25/2017 Abdominal pain 01/25/2017 01/25/2017 Overview: --01/24 Outside ER admit for 10 abd pain, decreased Colostomy output. CT 01/24/17 with new hernia in RLQ. --01/25 Pt states no abd pain/craming and pain 0/10, +stool output and tolerating liquids and solids. Plan for General Surg f/u outpatient for h/o SBO. 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 may need to increase FK and/or start low dose steroids Bronchopneumonia due to human metapneumovirus (h MPV) 01/14/2017 01/29/2017 Overview: -- presented as fever, cough, sinus NULL. -- RVP was (+) for Human metapneumovirus --CXR ? basilar atalectasis v pneumonia; --CT sinus acute sinusitis - u/a C&S neg - had persistent fevers and received 2 days of zosyn (01/16-01/17); -- zosyn was dc'd with all cultures being neg and she remained afebrile -- developed hypoxia with a positive desat study -- DC'd Home with O2 f/u 01/20/[address] Tatyana KIM (right bundle branch block) 09/24/2016 05/18/2018 Abnormality of gait 09/11/2016 01/21/2017 Secondary adrenal insufficiency 09/07/2016 04/27/2018 Type 2 diabetes mellitus wit h microalbuminuria, without long-term current use of insulin 07/02/2016 02/10/2022 Physical deconditioning 10/01/2015 09/07/20 16 Overview: Per LDT 10/30/15 fci charges Diarrhea 09/11/2015 01/21/2017 Overview: --increased watery stool output through ostomy; 01/16: c-diff neg --start imodium BID Acute pulmonary embolism 08/06/2015 016 Overview: --Patient presented with pleuritic Chest Pain, Heparin gtt initiated until PE ruled out --Negative for PE CT with PE protocol. Heparin drip was discontinued. 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 --c/o blood in urine & dysuria. 2+ Hb on UA. Check BK urine. Empiric cipro started --07/08- symptoms improving --07/09: +BK (162,000) copies: continue cipro for tx. 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 Treated w ganciclovir. Plan: - continue acyclovir - monitor tac levels Dysmetabolic syndrome X 09/07/20 16 Obesity 09/08/2017 Overview: Obesity class III Body mass index is 32.09 kg/(m^2). 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 Treated with vori, then changed to posa d/t presumed resistance. Repeat CT chest 10/12/14 improved. 12/14/14 CT clear --ppx posa PFO (patent foramen ovale) 11/06 Obstructive lung disease (generalized) 02/04/2016 Overview: --monitor. No h/o smoking. Not currently on any treatment at this time. Reduced FEV1 and DLCO. recent Pneumothorax on right Overview: --right sided chest pain that radiates to the scapula. Worse with deep breath. Scapula tender to palpation. -- CXR showedsmall right apical pneumothorax. EKG unremarkable. Cardiac enzymes negative. --Right apical pneumothorax most likely cause of her chest pain. No respiratory distress. On room air. --11/30 CXR shows pneumo no longer visible. 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 food related vs GVHD; pt cutting back on snacking today; on GVHD diet (GI soft/fiber controlled). --stool [id number] 07/05 (down from 2500ml 07/04). Some blood in stool overnight 07/05; platelets transfused. No blood noted afterward. --increased stool 1725ml 07/06. No colonoscopy; continue to hold off on ECP; 07/09-stool output decreasing; monitor documented as of this encounter (statuses as of 06/01/2022) [facility]09-[facility]-2020 History of Past illness Narrative* Problem Noted Date Resolved Date Parastomal hernia 05/29/2020 06/04/2020 Last Assessment & Plan: Assessment: s/p 05/29 parastomal hernia repair with TAR PLAN: -continue postoperative care Colostomy status 09/18/2018 06/03/2022 PEPE (acute kidney injury) 09/12/20182021 Overview: Last Assessment & Plan: SCr normalized to 1.02 today, SCr 3.2 on admission at OSH. Baseline 0.8-1.0. Likely 2/2 dehydration from vomiting and hyperCa. Continue MIVF as discussed elsewhere. Last Assessment & Plan: SCr normalized to 1.02 today, SCr 3.2 on admission at OSH. Baseline 0.8-1.0. Likely 2/2 dehydration from vomiting and hyperCa. Continue MIVF as discussed elsewhere. Stage 3 chronic kidney disease 05/13/2018 0 06/03/2022 Dehydration 05/13/2018 06/03/2022 Itching 01/11/2018 02/18/2018 Insomnia 01/11/2018 09/18/2018 Abnormal echocardiogram 06/03/2017 09/02/20 17 SBO (small bowel obstruction) 01/25/2017 Abdominal pain 01/25/2017 01/25/2017 Overview: --01/24 Outside ER admit for 10 abd pain, decreased Colostomy output. CT 01/24/17 with new hernia in RLQ. --01/25 Pt states no abd pain/craming and pain 0/10, +stool output and tolerating liquids and solids. Plan for General Surg f/u outpatient for h/o SBO. 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 may need to increase FK and/or start low dose steroids Bronchopneumonia due to human metapneumovirus (h MPV) 01/14/2017 01/29/2017 Overview: -- presented as fever, cough, sinus NULL. -- RVP was (+) for Human metapneumovirus --CXR ? basilar atalectasis v pneumonia; --CT sinus acute sinusitis - u/a C&S neg - had persistent fevers and received 2 days of zosyn (01/16-01/17); -- zosyn was dc'd with all cultures being neg and she remained afebrile -- developed hypoxia with a positive desat study -- DC'd Home with O2 f/u 01/20/[address] Tatyana KIM (right bundle branch block) 09/24/2016 05/18/2018 Abnormality of gait 09/11/2016 01/21/2017 Secondary adrenal insufficiency 09/07/2016 04/27/2018 Type 2 diabetes mellitus wit h microalbuminuria, without long-term current use of insulin 07/02/2016 02/10/2022 Physical deconditioning 10/01/2015 09/07/20 16 Overview: Per LDT 10/30/15 fci charges Diarrhea 09/11/2015 01/21/2017 Overview: --increased watery stool output through ostomy; 01/16: c-diff neg --start imodium BID Acute pulmonary embolism 08/06/2015 016 Overview: --Patient presented with pleuritic Chest Pain, Heparin gtt initiated until PE ruled out --Negative for PE CT with PE protocol. Heparin drip was discontinued. 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 --c/o blood in urine & dysuria. 2+ Hb on UA. Check BK urine. Empiric cipro started --07/08- symptoms improving --07/09: +BK (162,000) copies: continue cipro for tx. 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 Treated w ganciclovir. Plan: - continue acyclovir - monitor tac levels Dysmetabolic syndrome X 09/07/20 16 Obesity 09/08/2017 Overview: Obesity class III Body mass index is 32.09 kg/(m^2). 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 Treated with vori, then changed to posa d/t presumed resistance. Repeat CT chest 10/12/14 improved. 12/14/14 CT clear --ppx posa PFO (patent foramen ovale) 11/06 Obstructive lung disease (generalized) 02/04/2016 Overview: --monitor. No h/o smoking. Not currently on any treatment at this time. Reduced FEV1 and DLCO. recent Pneumothorax on right Overview: --right sided chest pain that radiates to the scapula. Worse with deep breath. Scapula tender to palpation. -- CXR showedsmall right apical pneumothorax. EKG unremarkable. Cardiac enzymes negative. --Right apical pneumothorax most likely cause of her chest pain. No respiratory distress. On room air. --11/30 CXR shows pneumo no longer visible. 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 food related vs GVHD; pt cutting back on snacking today; on GVHD diet (GI soft/fiber controlled). --stool [id number] 07/05 (down from 2500ml 07/04). Some blood in stool overnight 07/05; platelets transfused. No blood noted afterward. --increased stool 1725ml 07/06. No colonoscopy; continue to hold off on ECP; 07/09-stool output decreasing; monitor documented as of this encounter (statuses as of 06/03/2022) [facility]09-[facility]2020 History of Past illness Narrative* Problem Noted Date Resolved Date Parastomal hernia 05/29/2020 06/04/2020 Last Assessment & Plan: Assessment: s/p 05/29 parastomal hernia repair with TAR PLAN: -continue postoperative care Colostomy status 09/18/2018 06/03/2022 PEPE (acute kidney injury) 09/12/20182021 Overview: Last Assessment & Plan: SCr normalized to 1.02 today, SCr 3.2 on admission at OSH. Baseline 0.8-1.0. Likely 2/2 dehydration from vomiting and hyperCa. Continue MIVF as discussed elsewhere. Last Assessment & Plan: SCr normalized to 1.02 today, SCr 3.2 on admission at OSH. Baseline 0.8-1.0. Likely 2/2 dehydration from vomiting and hyperCa. Continue MIVF as discussed elsewhere. Stage 3 chronic kidney disease 05/13/2018 0 06/03/2022 Dehydration 05/13/2018 06/03/2022 Itching 01/11/2018 02/18/2018 Insomnia 01/11/2018 09/18/2018 Abnormal echocardiogram 06/03/2017 09/02/20 17 SBO (small bowel obstruction) 01/25/2017 Abdominal pain 01/25/2017 01/25/2017 Overview: --5/7 Outside ER admit for 10 abd pain, decreased Colostomy output. CT 01/24/17 with new hernia in RLQ. --01/25 Pt states no abd pain/craming and pain 0/10, +stool output and tolerating liquids and solids. Plan for General Surg f/u outpatient for h/o SBO. 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 may need to increase FK and/or start low dose steroids Bronchopneumonia due to human metapneumovirus (h MPV) 01/14/2017 01/29/2017 Overview: -- presented as fever, cough, sinus NULL. -- RVP was (+) for Human metapneumovirus --CXR ? basilar atalectasis v pneumonia; --CT sinus acute sinusitis - u/a C&S neg - had persistent fevers and received 2 days of zosyn (01/16-01/17); -- zosyn was dc'd with all cultures being neg and she remained afebrile -- developed hypoxia with a positive desat study -- DC'd Home with O2 f/u 01/20/[address] Tatyana KIM (right bundle branch block) 09/24/2016 05/18/2018 Abnormality of gait 09/11/2016 01/21/2017 Secondary adrenal insufficiency 09/07/2016 04/27/2018 Type 2 diabetes mellitus wit h microalbuminuria, without long-term current use of insulin 07/02/2016 02/10/2022 Physical deconditioning 10/01/2015 09/07/20 16 Overview: Per LDT 10/30/15 fci charges Diarrhea 09/11/2015 01/21/2017 Overview: --increased watery stool output through ostomy; 01/16: c-diff neg --start imodium BID Acute pulmonary embolism 08/06/2015 016 Overview: --Patient presented with pleuritic Chest Pain, Heparin gtt initiated until PE ruled out --Negative for PE CT with PE protocol. Heparin drip was discontinued. 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 --c/o blood in urine & dysuria. 2+ Hb on UA. Check BK urine. Empiric cipro started --07/08- symptoms improving --07/09: +BK (162,000) copies: continue cipro for tx. 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 Treated w ganciclovir. Plan: - continue acyclovir - monitor tac levels Dysmetabolic syndrome X 09/07/20 16 Obesity 09/08/2017 Overview: Obesity class III Body mass index is 32.09 kg/(m^2). 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 Treated with vori, then changed to posa d/t presumed resistance. Repeat CT chest 10/12/14 improved. 12/14/14 CT clear --ppx posa PFO (patent foramen ovale) 11/06 Obstructive lung disease (generalized) 02/04/2016 Overview: --monitor. No h/o smoking. Not currently on any treatment at this time. Reduced FEV1 and DLCO. recent Pneumothorax on right Overview: --right sided chest pain that radiates to the scapula. Worse with deep breath. Scapula tender to palpation. -- CXR showedsmall right apical pneumothorax. EKG unremarkable. Cardiac enzymes negative. --Right apical pneumothorax most likely cause of her chest pain. No respiratory distress. On room air. --11/30 CXR shows pneumo no longer visible. 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 food related vs GVHD; pt cutting back on snacking today; on GVHD diet (GI soft/fiber controlled). --stool [id number] 07/05 (down from 2500ml 07/04). Some blood in stool overnight 07/05; platelets transfused. No blood noted afterward. --increased stool 1725ml 07/06. No colonoscopy; continue to hold off on ECP; 07/09-stool output decreasing; monitor documented as of this encounter (statuses as of 06/04/2022) [facility]09-09-2020 History of Past illness Narrative* Problem Noted Date Resolved Date Parastomal hernia 05/29/2020 06/04/2020 Last Assessment & Plan: Assessment: s/p 05/29 parastomal hernia repair with TAR PLAN: -continue postoperative care Colostomy status 09/18/2018 06/03/2022 PEPE (acute kidney injury) 09/12/20182021 Overview: Last Assessment & Plan: SCr normalized to 1.02 today, SCr 3.2 on admission at OSH. Baseline 0.8-1.0. Likely 2/2 dehydration from vomiting and hyperCa. Continue MIVF as discussed elsewhere. Last Assessment & Plan: SCr normalized to 1.02 today, SCr 3.2 on admission at OSH. Baseline 0.8-1.0. Likely 2/2 dehydration from vomiting and hyperCa. Continue MIVF as discussed elsewhere. Stage 3 chronic kidney disease 05/13/2018 0 06/03/2022 Dehydration 05/13/2018 06/03/2022 Itching 01/11/2018 02/18/2018 Insomnia 01/11/2018 09/18/2018 Abnormal echocardiogram 06/03/2017 09/02/20 17 SBO (small bowel obstruction) 01/25/2017 Abdominal pain 01/25/2017 01/25/2017 Overview: --5/7 Outside ER admit for 10/10 abd pain, decreased Colostomy output. CT 01/24/17 with new hernia in RLQ. --5/8 Pt states no abd pain/craming and pain 0/10, +stool output and tolerating liquids and solids. Plan for General Surg f/u outpatient for h/o SBO. 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 may need to increase FK and/or start low dose steroids Bronchopneumonia due to human metapneumovirus (h MPV) 01/14/2017 01/29/2017 Overview: -- presented as fever, cough, sinus NULL. -- RVP was (+) for Human metapneumovirus --CXR ? basilar atalectasis v pneumonia; --CT sinus acute sinusitis - u/a C&S neg - had persistent fevers and received 2 days of zosyn (01/16-01/17); -- zosyn was dc'd with all cultures being neg and she remained afebrile -- developed hypoxia with a positive desat study -- DC'd Home with O2 f/u 01/20/[address] Tatyana KIM (right bundle branch block) 09/24/2016 05/18/2018 Abnormality of gait 09/11/2016 01/21/2017 Secondary adrenal insufficiency 09/07/2016 04/27/2018 Type 2 diabetes mellitus wit h microalbuminuria, without long-term current use of insulin 07/02/2016 02/10/2022 Physical deconditioning 10/01/2015 09/07/20 16 Overview: Per LDT 10/30/15 fci charges Diarrhea 09/11/2015 01/21/2017 Overview: --increased watery stool output through ostomy; 01/16: c-diff neg --start imodium BID Acute pulmonary embolism 08/06/2015 016 Overview: --Patient presented with pleuritic Chest Pain, Heparin gtt initiated until PE ruled out --Negative for PE CT with PE protocol. Heparin drip was discontinued. 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 --c/o blood in urine & dysuria. 2+ Hb on UA. Check BK urine. Empiric cipro started --07/08- symptoms improving --07/09: +BK (162,000) copies: continue cipro for tx. 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 Treated w ganciclovir. Plan: - continue acyclovir - monitor tac levels Dysmetabolic syndrome X 09/07/20 16 Obesity 09/08/2017 Overview: Obesity class III Body mass index is 32.09 kg/(m^2). 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 Treated with vori, then changed to posa d/t presumed resistance. Repeat CT chest 10/12/14 improved. 12/14/14 CT clear --ppx posa PFO (patent foramen ovale) 11/06 Obstructive lung disease (generalized) 02/04/2016 Overview: --monitor. No h/o smoking. Not currently on any treatment at this time. Reduced FEV1 and DLCO. recent Pneumothorax on right Overview: --right sided chest pain that radiates to the scapula. Worse with deep breath. Scapula tender to palpation. -- CXR showedsmall right apical pneumothorax. EKG unremarkable. Cardiac enzymes negative. --Right apical pneumothorax most likely cause of her chest pain. No respiratory distress. On room air. --11/30 CXR shows pneumo no longer visible. 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 food related vs GVHD; pt cutting back on snacking today; on GVHD diet (GI soft/fiber controlled). --stool [id number] 07/05 (down from 2500ml 07/04). Some blood in stool overnight 07/05; platelets transfused. No blood noted afterward. --increased stool 1725ml 07/06. No colonoscopy; continue to hold off on ECP; 07/09-stool output decreasing; monitor documented as of this encounter (statuses as of 06/04/2022) [facility]09-09-2020 History of Past illness Narrative* Problem Noted Date Resolved Date Parastomal hernia 05/29/2020 06/04/2020 Last Assessment & Plan: Assessment: s/p 05/29 parastomal hernia repair with TAR PLAN: -continue postoperative care Colostomy status 09/18/2018 06/03/2022 PEPE (acute kidney injury) 09/12/20182021 Overview: Last Assessment & Plan: SCr normalized to 1.02 today, SCr 3.2 on admission at OSH. Baseline 0.8-1.0. Likely 2/2 dehydration from vomiting and hyperCa. Continue MIVF as discussed elsewhere. Last Assessment & Plan: SCr normalized to 1.02 today, SCr 3.2 on admission at OSH. Baseline 0.8-1.0. Likely 2/2 dehydration from vomiting and hyperCa. Continue MIVF as discussed elsewhere. Stage 3 chronic kidney disease 05/13/2018 0 06/03/2022 Dehydration 05/13/2018 06/03/2022 Itching 01/11/2018 02/18/2018 Insomnia 01/11/2018 09/18/2018 Abnormal echocardiogram 06/03/2017 09/02/20 17 SBO (small bowel obstruction) 01/25/2017 Abdominal pain 01/25/2017 01/25/2017 Overview: --01/24 Outside ER admit for 06/29 abd pain, decreased Colostomy output. CT 01/24/17 with new hernia in RLQ. --01/25 Pt states no abd pain/craming and pain 0/10, +stool output and tolerating liquids and solids. Plan for General Surg f/u outpatient for h/o SBO. 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 may need to increase FK and/or start low dose steroids Bronchopneumonia due to human metapneumovirus (h MPV) 01/14/2017 01/29/2017 Overview: -- presented as fever, cough, sinus NULL. -- RVP was (+) for Human metapneumovirus --CXR ? basilar atalectasis v pneumonia; --CT sinus acute sinusitis - u/a C&S neg - had persistent fevers and received 2 days of zosyn (01/16-01/17); -- zosyn was dc'd with all cultures being neg and she remained afebrile -- developed hypoxia with a positive desat study -- DC'd Home with O2 f/u 01/20/[address] Tatyana THORNTONBB (right bundle branch block) 09/24/2016 05/18/2018 Abnormality of gait 09/11/2016 01/21/2017 Secondary adrenal insufficiency 09/07/2016 04/27/2018 Type 2 diabetes mellitus wit h microalbuminuria, without long-term current use of insulin 07/02/2016 02/10/2022 Physical deconditioning 10/01/2015 09/07/20 16 Overview: Per LDT 10/30/15 fci charges Diarrhea 09/11/2015 01/21/2017 Overview: --increased watery stool output through ostomy; 01/16: c-diff neg --start imodium BID Acute pulmonary embolism 08/06/2015 016 Overview: --Patient presented with pleuritic Chest Pain, Heparin gtt initiated until PE ruled out --Negative for PE CT with PE protocol. Heparin drip was discontinued. 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 --c/o blood in urine & dysuria. 2+ Hb on UA. Check BK urine. Empiric cipro started --07/08- symptoms improving --07/09: +BK (162,000) copies: continue cipro for tx. 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 Treated w ganciclovir. Plan: - continue acyclovir - monitor tac levels Dysmetabolic syndrome X 09/07/20 16 Obesity 09/08/2017 Overview: Obesity class III Body mass index is 32.09 kg/(m^2). 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 Treated with vori, then changed to posa d/t presumed resistance. Repeat CT chest 10/12/14 improved. 12/14/14 CT clear --ppx posa PFO (patent foramen ovale) 11/06 Obstructive lung disease (generalized) 02/04/2016 Overview: --monitor. No h/o smoking. Not currently on any treatment at this time. Reduced FEV1 and DLCO. recent Pneumothorax on right Overview: --right sided chest pain that radiates to the scapula. Worse with deep breath. Scapula tender to palpation. -- CXR showedsmall right apical pneumothorax. EKG unremarkable. Cardiac enzymes negative. --Right apical pneumothorax most likely cause of her chest pain. No respiratory distress. On room air. --11/30 CXR shows pneumo no longer visible. 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 food related vs GVHD; pt cutting back on snacking today; on GVHD diet (GI soft/fiber controlled). --stool [id number] 07/05 (down from 2500ml 07/04). Some blood in stool overnight 07/05; platelets transfused. No blood noted afterward. --increased stool 1725ml 07/06. No colonoscopy; continue to hold off on ECP; 07/09-stool output decreasing; monitor documented as of this encounter (statuses as of 06/08/2022) [facility]09-[facility]2020 History of Past illness Narrative* Problem Noted Date Resolved Date Parastomal hernia 05/29/2020 06/04/2020 Last Assessment & Plan: Assessment: s/p 05/29 parastomal hernia repair with TAR PLAN: -continue postoperative care Colostomy status 09/18/2018 06/03/2022 PEPE (acute kidney injury) 09/12/20182021 Overview: Last Assessment & Plan: SCr normalized to 1.02 today, SCr 3.2 on admission at OSH. Baseline 0.8-1.0. Likely 2/2 dehydration from vomiting and hyperCa. Continue MIVF as discussed elsewhere. Last Assessment & Plan: SCr normalized to 1.02 today, SCr 3.2 on admission at OSH. Baseline 0.8-1.0. Likely 2/2 dehydration from vomiting and hyperCa. Continue MIVF as discussed elsewhere. Stage 3 chronic kidney disease 05/13/2018 0 06/03/2022 Dehydration 05/13/2018 06/03/2022 Itching 01/11/2018 02/18/2018 Insomnia 01/11/2018 09/18/2018 Abnormal echocardiogram 06/03/2017 09/02/20 17 SBO (small bowel obstruction) 01/25/2017 Abdominal pain 01/25/2017 01/25/2017 Overview: --5/7 Outside ER admit for 10/10 abd pain, decreased Colostomy output. CT 01/24/17 with new hernia in RLQ. --5/8 Pt states no abd pain/craming and pain 0/10, +stool output and tolerating liquids and solids. Plan for General Surg f/u outpatient for h/o SBO. 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 may need to increase FK and/or start low dose steroids Bronchopneumonia due to human metapneumovirus (h MPV) 01/14/2017 01/29/2017 Overview: -- presented as fever, cough, sinus NULL. -- RVP was (+) for Human metapneumovirus --CXR ? basilar atalectasis v pneumonia; --CT sinus acute sinusitis - u/a C&S neg - had persistent fevers and received 2 days of zosyn (01/16-01/17); -- zosyn was dc'd with all cultures being neg and she remained afebrile -- developed hypoxia with a positive desat study -- DC'd Home with O2 f/u 01/20/[address] Tatyana KIM (right bundle branch block) 09/24/2016 05/18/2018 Abnormality of gait 09/11/2016 01/21/2017 Secondary adrenal insufficiency 09/07/2016 04/27/2018 Type 2 diabetes mellitus wit h microalbuminuria, without long-term current use of insulin 07/02/2016 02/10/2022 Physical deconditioning 10/01/2015 09/07/20 16 Overview: Per LDT 10/30/15 fci charges Diarrhea 09/11/2015 01/21/2017 Overview: --increased watery stool output through ostomy; 01/16: c-diff neg --start imodium BID Acute pulmonary embolism 08/06/2015 016 Overview: --Patient presented with pleuritic Chest Pain, Heparin gtt initiated until PE ruled out --Negative for PE CT with PE protocol. Heparin drip was discontinued. 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 --c/o blood in urine & dysuria. 2+ Hb on UA. Check BK urine. Empiric cipro started --07/08- symptoms improving --07/09: +BK (162,000) copies: continue cipro for tx. 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 Treated w ganciclovir. Plan: - continue acyclovir - monitor tac levels Dysmetabolic syndrome X 09/07/20 16 Obesity 09/08/2017 Overview: Obesity class III Body mass index is 32.09 kg/(m^2). 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 Treated with vori, then changed to posa d/t presumed resistance. Repeat CT chest 10/12/14 improved. 12/14/14 CT clear --ppx posa PFO (patent foramen ovale) 11/06 Obstructive lung disease (generalized) 02/04/2016 Overview: --monitor. No h/o smoking. Not currently on any treatment at this time. Reduced FEV1 and DLCO. recent Pneumothorax on right Overview: --right sided chest pain that radiates to the scapula. Worse with deep breath. Scapula tender to palpation. -- CXR showedsmall right apical pneumothorax. EKG unremarkable. Cardiac enzymes negative. --Right apical pneumothorax most likely cause of her chest pain. No respiratory distress. On room air. --11/30 CXR shows pneumo no longer visible. 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 food related vs GVHD; pt cutting back on snacking today; on GVHD diet (GI soft/fiber controlled). --stool [id number] 07/05 (down from 2500ml 07/04). Some blood in stool overnight 07/05; platelets transfused. No blood noted afterward. --increased stool 1725ml 07/06. No colonoscopy; continue to hold off on ECP; 07/09-stool output decreasing; monitor documented as of this encounter (statuses as of 06/11/2022) [facility]09-09-2020 History of Past illness Narrative* Problem Noted Date Resolved Date Parastomal hernia 05/29/2020 06/04/2020 Last Assessment & Plan: Assessment: s/p 05/29 parastomal hernia repair with TAR PLAN: -continue postoperative care Colostomy status 09/18/2018 06/03/2022 PEPE (acute kidney injury) 09/12/20182021 Overview: Last Assessment & Plan: SCr normalized to 1.02 today, SCr 3.2 on admission at OSH. Baseline 0.8-1.0. Likely 2/2 dehydration from vomiting and hyperCa. Continue MIVF as discussed elsewhere. Last Assessment & Plan: SCr normalized to 1.02 today, SCr 3.2 on admission at OSH. Baseline 0.8-1.0. Likely 2/2 dehydration from vomiting and hyperCa. Continue MIVF as discussed elsewhere. Stage 3 chronic kidney disease 05/13/2018 0 06/03/2022 Dehydration 05/13/2018 06/03/2022 Itching 01/11/2018 02/18/2018 Insomnia 01/11/2018 09/18/2018 Abnormal echocardiogram 06/03/2017 09/02/20 17 SBO (small bowel obstruction) 01/25/2017 Abdominal pain 01/25/2017 01/25/2017 Overview: --01/24 Outside ER admit for 10 abd pain, decreased Colostomy output. CT 01/24/17 with new hernia in RLQ. --5/8 Pt states no abd pain/craming and pain 0/10, +stool output and tolerating liquids and solids. Plan for General Surg f/u outpatient for h/o SBO. 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 may need to increase FK and/or start low dose steroids Bronchopneumonia due to human metapneumovirus (h MPV) 01/14/2017 01/29/2017 Overview: -- presented as fever, cough, sinus NULL. -- RVP was (+) for Human metapneumovirus --CXR ? basilar atalectasis v pneumonia; --CT sinus acute sinusitis - u/a C&S neg - had persistent fevers and received 2 days of zosyn (01/16-01/17); -- zosyn was dc'd with all cultures being neg and she remained afebrile -- developed hypoxia with a positive desat study -- DC'd Home with O2 f/u 01/20/[address] Tatyana KIM (right bundle branch block) 09/24/2016 05/18/2018 Abnormality of gait 09/11/2016 01/21/2017 Secondary adrenal insufficiency 09/07/2016 04/27/2018 Type 2 diabetes mellitus wit h microalbuminuria, without long-term current use of insulin 07/02/2016 02/10/2022 Physical deconditioning 10/01/2015 09/07/20 16 Overview: Per LDT 10/30/15 fci charges Diarrhea 09/11/2015 01/21/2017 Overview: --increased watery stool output through ostomy; 01/16: c-diff neg --start imodium BID Acute pulmonary embolism 08/06/2015 016 Overview: --Patient presented with pleuritic Chest Pain, Heparin gtt initiated until PE ruled out --Negative for PE CT with PE protocol. Heparin drip was discontinued. 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 --c/o blood in urine & dysuria. 2+ Hb on UA. Check BK urine. Empiric cipro started --07/08- symptoms improving --07/09: +BK (162,000) copies: continue cipro for tx. 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 Treated w ganciclovir. Plan: - continue acyclovir - monitor tac levels Dysmetabolic syndrome X 09/07/20 16 Obesity 09/08/2017 Overview: Obesity class III Body mass index is 32.09 kg/(m^2). 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 Treated with vori, then changed to posa d/t presumed resistance. Repeat CT chest 10/12/14 improved. 12/14/14 CT clear --ppx posa PFO (patent foramen ovale) 11/06 Obstructive lung disease (generalized) 02/04/2016 Overview: --monitor. No h/o smoking. Not currently on any treatment at this time. Reduced FEV1 and DLCO. recent Pneumothorax on right Overview: --right sided chest pain that radiates to the scapula. Worse with deep breath. Scapula tender to palpation. -- CXR showedsmall right apical pneumothorax. EKG unremarkable. Cardiac enzymes negative. --Right apical pneumothorax most likely cause of her chest pain. No respiratory distress. On room air. --11/30 CXR shows pneumo no longer visible. 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 food related vs GVHD; pt cutting back on snacking today; on GVHD diet (GI soft/fiber controlled). --stool [id number] 07/05 (down from 2500ml 07/04). Some blood in stool overnight 07/05; platelets transfused. No blood noted afterward. --increased stool 1725ml 07/06. No colonoscopy; continue to hold off on ECP; 07/09-stool output decreasing; monitor documented as of this encounter (statuses as of 06/11/2022) [facility]09-09-2020 History of Past illness Narrative* Problem Noted Date Resolved Date Parastomal hernia 05/29/2020 06/04/2020 Last Assessment & Plan: Assessment: s/p 05/29 parastomal hernia repair with TAR PLAN: -continue postoperative care Colostomy status 09/18/2018 06/03/2022 PEPE (acute kidney injury) 09/12/20182021 Overview: Last Assessment & Plan: SCr normalized to 1.02 today, SCr 3.2 on admission at OSH. Baseline 0.8-1.0. Likely 2/2 dehydration from vomiting and hyperCa. Continue MIVF as discussed elsewhere. Last Assessment & Plan: SCr normalized to 1.02 today, SCr 3.2 on admission at OSH. Baseline 0.8-1.0. Likely 2/2 dehydration from vomiting and hyperCa. Continue MIVF as discussed elsewhere. Stage 3 chronic kidney disease 05/13/2018 0 06/03/2022 Dehydration 05/13/2018 06/03/2022 Itching 01/11/2018 02/18/2018 Insomnia 01/11/2018 09/18/2018 Abnormal echocardiogram 06/03/2017 09/02/20 17 SBO (small bowel obstruction) 01/25/2017 Abdominal pain 01/25/2017 01/25/2017 Overview: --01/24 Outside ER admit for 06/29 abd pain, decreased Colostomy output. CT 01/24/17 with new hernia in RLQ. --01/25 Pt states no abd pain/craming and pain 0/10, +stool output and tolerating liquids and solids. Plan for General Surg f/u outpatient for h/o SBO. 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 may need to increase FK and/or start low dose steroids Bronchopneumonia due to human metapneumovirus (h MPV) 01/14/2017 01/29/2017 Overview: -- presented as fever, cough, sinus NULL. -- RVP was (+) for Human metapneumovirus --CXR ? basilar atalectasis v pneumonia; --CT sinus acute sinusitis - u/a C&S neg - had persistent fevers and received 2 days of zosyn (01/16-01/17); -- zosyn was dc'd with all cultures being neg and she remained afebrile -- developed hypoxia with a positive desat study -- DC'd Home with O2 f/u 01/20/[address] Tatyana THORNTONBB (right bundle branch block) 09/24/2016 05/18/2018 Abnormality of gait 09/11/2016 01/21/2017 Secondary adrenal insufficiency 09/07/2016 04/27/2018 Type 2 diabetes mellitus wit h microalbuminuria, without long-term current use of insulin 07/02/2016 02/10/2022 Physical deconditioning 10/01/2015 09/07/20 16 Overview: Per LDT 10/30/15 fci charges Diarrhea 09/11/2015 01/21/2017 Overview: --increased watery stool output through ostomy; 01/16: c-diff neg --start imodium BID Acute pulmonary embolism 08/06/2015 016 Overview: --Patient presented with pleuritic Chest Pain, Heparin gtt initiated until PE ruled out --Negative for PE CT with PE protocol. Heparin drip was discontinued. 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 --c/o blood in urine & dysuria. 2+ Hb on UA. Check BK urine. Empiric cipro started --07/08- symptoms improving --07/09: +BK (162,000) copies: continue cipro for tx. 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 Treated w ganciclovir. Plan: - continue acyclovir - monitor tac levels Dysmetabolic syndrome X 09/07/20 16 Obesity 09/08/2017 Overview: Obesity class III Body mass index is 32.09 kg/(m^2). 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 Treated with vori, then changed to posa d/t presumed resistance. Repeat CT chest 10/12/14 improved. 12/14/14 CT clear --ppx posa PFO (patent foramen ovale) 11/06 Obstructive lung disease (generalized) 02/04/2016 Overview: --monitor. No h/o smoking. Not currently on any treatment at this time. Reduced FEV1 and DLCO. recent Pneumothorax on right Overview: --right sided chest pain that radiates to the scapula. Worse with deep breath. Scapula tender to palpation. -- CXR showedsmall right apical pneumothorax. EKG unremarkable. Cardiac enzymes negative. --Right apical pneumothorax most likely cause of her chest pain. No respiratory distress. On room air. --11/30 CXR shows pneumo no longer visible. 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 food related vs GVHD; pt cutting back on snacking today; on GVHD diet (GI soft/fiber controlled). --stool [id number] 07/05 (down from 2500ml 07/04). Some blood in stool overnight 07/05; platelets transfused. No blood noted afterward. --increased stool 1725ml 07/06. No colonoscopy; continue to hold off on ECP; 07/09-stool output decreasing; monitor documented as of this encounter (statuses as of 06/18/2022) [facility]09-09-2020 History of Past illness Narrative* Problem Noted Date Resolved Date Parastomal hernia 05/29/2020 06/04/2020 Last Assessment & Plan: Assessment: s/p 05/29 parastomal hernia repair with TAR PLAN: -continue postoperative care Colostomy status 09/18/2018 06/03/2022 PEPE (acute kidney injury) 09/12/20182021 Overview: Last Assessment & Plan: SCr normalized to 1.02 today, SCr 3.2 on admission at OSH. Baseline 0.8-1.0. Likely 2/2 dehydration from vomiting and hyperCa. Continue MIVF as discussed elsewhere. Last Assessment & Plan: SCr normalized to 1.02 today, SCr 3.2 on admission at OSH. Baseline 0.8-1.0. Likely 2/2 dehydration from vomiting and hyperCa. Continue MIVF as discussed elsewhere. Stage 3 chronic kidney disease 05/13/2018 0 06/03/2022 Dehydration 05/13/2018 06/03/2022 Itching 01/11/2018 02/18/2018 Insomnia 01/11/2018 09/18/2018 Abnormal echocardiogram 06/03/2017 09/02/20 17 SBO (small bowel obstruction) 01/25/2017 Abdominal pain 01/25/2017 01/25/2017 Overview: --5/7 Outside ER admit for 10/10 abd pain, decreased Colostomy output. CT 01/24/17 with new hernia in RLQ. --5/8 Pt states no abd pain/craming and pain 0/10, +stool output and tolerating liquids and solids. Plan for General Surg f/u outpatient for h/o SBO. 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 may need to increase FK and/or start low dose steroids Bronchopneumonia due to human metapneumovirus (h MPV) 01/14/2017 01/29/2017 Overview: -- presented as fever, cough, sinus NULL. -- RVP was (+) for Human metapneumovirus --CXR ? basilar atalectasis v pneumonia; --CT sinus acute sinusitis - u/a C&S neg - had persistent fevers and received 2 days of zosyn (01/16-01/17); -- zosyn was dc'd with all cultures being neg and she remained afebrile -- developed hypoxia with a positive desat study -- DC'd Home with O2 f/u 01/20/[address] Tatyana KIM (right bundle branch block) 09/24/2016 05/18/2018 Abnormality of gait 09/11/2016 01/21/2017 Secondary adrenal insufficiency 09/07/2016 04/27/2018 Type 2 diabetes mellitus wit h microalbuminuria, without long-term current use of insulin 07/02/2016 02/10/2022 Physical deconditioning 10/01/2015 09/07/20 16 Overview: Per LDT 10/30/15 fci charges Diarrhea 09/11/2015 01/21/2017 Overview: --increased watery stool output through ostomy; 01/16: c-diff neg --start imodium BID Acute pulmonary embolism 08/06/2015 016 Overview: --Patient presented with pleuritic Chest Pain, Heparin gtt initiated until PE ruled out --Negative for PE CT with PE protocol. Heparin drip was discontinued. 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 --c/o blood in urine & dysuria. 2+ Hb on UA. Check BK urine. Empiric cipro started --07/08- symptoms improving --07/09: +BK (162,000) copies: continue cipro for tx. 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 Treated w ganciclovir. Plan: - continue acyclovir - monitor tac levels Dysmetabolic syndrome X 09/07/20 16 Obesity 09/08/2017 Overview: Obesity class III Body mass index is 32.09 kg/(m^2). 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 Treated with vori, then changed to posa d/t presumed resistance. Repeat CT chest 10/12/14 improved. 12/14/14 CT clear --ppx posa PFO (patent foramen ovale) 11/06 Obstructive lung disease (generalized) 02/04/2016 Overview: --monitor. No h/o smoking. Not currently on any treatment at this time. Reduced FEV1 and DLCO. recent Pneumothorax on right Overview: --right sided chest pain that radiates to the scapula. Worse with deep breath. Scapula tender to palpation. -- CXR showedsmall right apical pneumothorax. EKG unremarkable. Cardiac enzymes negative. --Right apical pneumothorax most likely cause of her chest pain. No respiratory distress. On room air. --11/30 CXR shows pneumo no longer visible. 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 food related vs GVHD; pt cutting back on snacking today; on GVHD diet (GI soft/fiber controlled). --stool [id number] 07/05 (down from 2500ml 07/04). Some blood in stool overnight 07/05; platelets transfused. No blood noted afterward. --increased stool 1725ml 07/06. No colonoscopy; continue to hold off on ECP; 07/09-stool output decreasing; monitor documented as of this encounter (statuses as of 06/18/2022) [facility]09-09-2020 History of Past illness Narrative* Problem Noted Date Resolved Date Parastomal hernia 05/29/2020 06/04/2020 Last Assessment & Plan: Assessment: s/p 05/29 parastomal hernia repair with TAR PLAN: -continue postoperative care Colostomy status 09/18/2018 06/03/2022 PEPE (acute kidney injury) 09/12/20182021 Overview: Last Assessment & Plan: SCr normalized to 1.02 today, SCr 3.2 on admission at OSH. Baseline 0.8-1.0. Likely 2/2 dehydration from vomiting and hyperCa. Continue MIVF as discussed elsewhere. Last Assessment & Plan: SCr normalized to 1.02 today, SCr 3.2 on admission at OSH. Baseline 0.8-1.0. Likely 2/2 dehydration from vomiting and hyperCa. Continue MIVF as discussed elsewhere. Stage 3 chronic kidney disease 05/13/2018 0 06/03/2022 Dehydration 05/13/2018 06/03/2022 Itching 01/11/2018 02/18/2018 Insomnia 01/11/2018 09/18/2018 Abnormal echocardiogram 06/03/2017 09/02/20 17 SBO (small bowel obstruction) 01/25/2017 Abdominal pain 01/25/2017 01/25/2017 Overview: --01/24 Outside ER admit for 06/29 abd pain, decreased Colostomy output. CT 01/24/17 with new hernia in RLQ. --01/25 Pt states no abd pain/craming and pain 0/10, +stool output and tolerating liquids and solids. Plan for General Surg f/u outpatient for h/o SBO. 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 may need to increase FK and/or start low dose steroids Bronchopneumonia due to human metapneumovirus (h MPV) 01/14/2017 01/29/2017 Overview: -- presented as fever, cough, sinus NULL. -- RVP was (+) for Human metapneumovirus --CXR ? basilar atalectasis v pneumonia; --CT sinus acute sinusitis - u/a C&S neg - had persistent fevers and received 2 days of zosyn (01/16-01/17); -- zosyn was dc'd with all cultures being neg and she remained afebrile -- developed hypoxia with a positive desat study -- DC'd Home with O2 f/u 01/20/[address] Tatyana KIM (right bundle branch block) 09/24/2016 05/18/2018 Abnormality of gait 09/11/2016 01/21/2017 Secondary adrenal insufficiency 09/07/2016 04/27/2018 Type 2 diabetes mellitus wit h microalbuminuria, without long-term current use of insulin 07/02/2016 02/10/2022 Physical deconditioning 10/01/2015 09/07/20 16 Overview: Per LDT 10/30/15 fci charges Diarrhea 09/11/2015 01/21/2017 Overview: --increased watery stool output through ostomy; 01/16: c-diff neg --start imodium BID Acute pulmonary embolism 08/06/2015 016 Overview: --Patient presented with pleuritic Chest Pain, Heparin gtt initiated until PE ruled out --Negative for PE CT with PE protocol. Heparin drip was discontinued. 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 --c/o blood in urine & dysuria. 2+ Hb on UA. Check BK urine. Empiric cipro started --07/08- symptoms improving --07/09: +BK (162,000) copies: continue cipro for tx. 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 Treated w ganciclovir. Plan: - continue acyclovir - monitor tac levels Dysmetabolic syndrome X 09/07/20 Obesity 09/08/2017 Overview: Obesity class III Body mass index is 32.09 kg/(m^2). 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 Treated with vori, then changed to posa d/t presumed resistance. Repeat CT chest 10/12/14 improved. 12/14/14 CT clear --ppx posa PFO (patent foramen ovale) 11/06 Obstructive lung disease (generalized) 02/04/2016 Overview: --monitor. No h/o smoking. Not currently on any treatment at this time. Reduced FEV1 and DLCO. recent Pneumothorax on right Overview: --right sided chest pain that radiates to the scapula. Worse with deep breath. Scapula tender to palpation. -- CXR showedsmall right apical pneumothorax. EKG unremarkable. Cardiac enzymes negative. --Right apical pneumothorax most likely cause of her chest pain. No respiratory distress. On room air. --11/30 CXR shows pneumo no longer visible. 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 food related vs GVHD; pt cutting back on snacking today; on GVHD diet (GI soft/fiber controlled). --stool [id number] 07/05 (down from 2500ml 07/04). Some blood in stool overnight 07/05; platelets transfused. No blood noted afterward. --increased stool 1725ml 07/06. No colonoscopy; continue to hold off on ECP; 07/09-stool output decreasing; monitor documented as of this encounter (statuses as of 06/19/2022) [facility]09-09-2020 History of Past illness Narrative* Problem Noted Date Resolved Date Parastomal hernia 05/29/2020 06/04/2020 Last Assessment & Plan: Assessment: s/p 05/29 parastomal hernia repair with TAR PLAN: -continue postoperative care Colostomy status 09/18/2018 06/03/2022 PEEP (acute kidney injury) 09/12/20182021 Overview: Last Assessment & Plan: SCr normalized to 1.02 today, SCr 3.2 on admission at OSH. Baseline 0.8-1.0. Likely 2/2 dehydration from vomiting and hyperCa. Continue MIVF as discussed elsewhere. Last Assessment & Plan: SCr normalized to 1.02 today, SCr 3.2 on admission at [facility]. Baseline 0.8-1.0. Likely 2/2 dehydration from vomiting and hyperCa. Continue MIVF as discussed elsewhere. Stage 3 chronic kidney disease 05/13/2018 0 06/03/2022 Dehydration 05/13/2018 06/03/2022 Itching 01/11/2018 02/18/2018 Insomnia 01/11/2018 09/18/2018 Abnormal echocardiogram 06/03/2017 09/02/20 17 SBO (small bowel obstruction) 01/25/2017 Abdominal pain 01/25/2017 01/25/2017 Overview: --01/24 Outside ER admit for 10 abd pain, decreased Colostomy output. CT 01/24/17 with new hernia in RLQ. --01/25 Pt states no abd pain/craming and pain 0/10, +stool output and tolerating liquids and solids. Plan for General Surg f/u outpatient for h/o SBO. 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 may need to increase FK and/or start low dose steroids Bronchopneumonia due to human metapneumovirus (h MPV) 01/14/2017 01/29/2017 Overview: -- presented as fever, cough, sinus NULL. -- RVP was (+) for Human metapneumovirus --CXR ? basilar atalectasis v pneumonia; --CT sinus acute sinusitis - u/a C&S neg - had persistent fevers and received 2 days of zosyn (01/16-01/17); -- zosyn was dc'd with all cultures being neg and she remained afebrile -- developed hypoxia with a positive desat study -- DC'd Home with O2 f/u 01/20/[address] Tatyana KIM (right bundle branch block) 09/24/2016 05/18/2018 Abnormality of gait 09/11/2016 01/21/2017 Secondary adrenal insufficiency 09/07/2016 04/27/2018 Type 2 diabetes mellitus wit h microalbuminuria, without long-term current use of insulin 07/02/2016 02/10/2022 Physical deconditioning 10/01/2015 09/07/20 16 Overview: Per LDT 10/30/15 [facility] charges Diarrhea 09/11/2015 01/21/2017 Overview: --increased watery stool output through ostomy; 01/16: c-diff neg --start imodium BID Acute pulmonary embolism 08/06/2015 016 Overview: --Patient presented with pleuritic Chest Pain, Heparin gtt initiated until PE ruled out --Negative for PE CT with PE protocol. Heparin drip was discontinued. 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 --c/o blood in urine & dysuria. 2+ Hb on UA. Check BK urine. Empiric cipro started --07/08- symptoms improving --07/09: +BK (162,000) copies: continue cipro for tx. 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 Treated w ganciclovir. Plan: - continue acyclovir - monitor tac levels Dysmetabolic syndrome X 09/07/20 16 Obesity 09/08/2017 Overview: Obesity class III Body mass index is 32.09 kg/(m^2). 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 Treated with vori, then changed to posa d/t presumed resistance. Repeat CT chest 10/12/14 improved. 12/14/14 CT clear --ppx posa PFO (patent foramen ovale) 11/06 Obstructive lung disease (generalized) 02/04/2016 Overview: --monitor. No h/o smoking. Not currently on any treatment at this time. Reduced FEV1 and DLCO. recent Pneumothorax on right Overview: --right sided chest pain that radiates to the scapula. Worse with deep breath. Scapula tender to palpation. -- CXR showedsmall right apical pneumothorax. EKG unremarkable. Cardiac enzymes negative. --Right apical pneumothorax most likely cause of her chest pain. No respiratory distress. On room air. --11/30 CXR shows pneumo no longer visible. 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 food related vs GVHD; pt cutting back on snacking today; on GVHD diet (GI soft/fiber controlled). --stool [id number] 07/05 (down from 2500ml 07/04). Some blood in stool overnight 07/05; platelets transfused. No blood noted afterward. --increased stool 1725ml 07/06. 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 Electrolyte and fluid disorder Electrolyte and fluid disorders not elsewhere classified Ventral hernia without obstruction or gangrene Ventral hernia, unspecified, without mention of obstruction or gangrene [facility]* Diagnosis Other osteoporosis without current pathological fracture documented in this encounter [facility] note* Diagnosis Acute myeloid leukemia in remission (HCC)- Primary Acute myeloid leukemia in remission [facility]* Diagnosis Onset Date Resolution Status Acute kidney injury acute Dehydration acute Gastroenteritis acute [facility] Work Phone: Evaluation note* Diagnosis Onset Date Resolution Status Acute kidney injury acute Dehydration acute Gastroenteritis acute Acute kidney injury acute Dehydration acute Orthostasis acute Rotaviral gastroenteritis ac [employer] [place] [facility] Work Phone: Evaluation note* Diagnosis Onset Date Resolution Status Dehydration acute Gastroenteritis acute Acute kidney injury resolved Dehydration acute Gastroenteritis due to norovirus acute High output ileostomy acute Hypokalemia acute Hypophosphatemia acute Orthostasis acute Rotaviral gastroenteritis [place] [employer] Acute kidney injury resolved Metabolic acidosis resolved [facility] Work Phone: Evaluation note* Diagnosis PEPE (acute kidney injury) (HCC)- Primary Acute kidney failure, unspecified [facility]* Diagnosis Acute myeloid leukemia in remission (HCC)- Primary Acute myeloid leukemia in remission PEPE (acute kidney injury) (HCC) Acute kidney failure, unspecified [facility]* Diagnosis Acute myeloid leukemia in remission (HCC)- Primary 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 [facility] Diagnosis Acute myeloid leukemia in remission (HCC)- Primary Acute myeloid leukemia in remission [facility]* Diagnosis 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 [facility]* Diagnosis 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)- Primary 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 ybcwo-nmiebp-ciyr disease documented in this encounter [facility] note* Diagnosis 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)- Primary Complications of bone marrow transplant Ileostomy present (HCC) Ileostomy status 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 H/O colectomy Other postprocedural status documented [facility] this [facility]* Diagnosis Acquired hypothyroidism- Primary Unspecified hypothyroidism Type 2 diabetes mellitus with microalbuminuria, without long-term current use of insulin (HCC) Vitamin D deficiency Unspecified vitamin D deficiency Stage 3a chronic kidney disease (HCC) Hair thinning Alopecia, unspecified Excessive cerumen in ear canal, right Gastroesophageal reflux disease, unspecified whether esophagitis present Colostomy status (HCC) Colostomy status Bronchiectasis without acute exacerbation (HCC) Bronchiectasis without acute exacerbation 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 Chronic anticoagulation Long-term (current) use of anticoagulants documented in this encounter [facility] note* Diagnosis Colostomy status (HCC)- Primary Colostomy status Ileostomy present (HCC) Ileostomy status 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) Complications of bone marrow transplant documented in this encounter [facility] note* Diagnosis 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)- Primary 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) Complications of bone marrow transplant Encounter for gynecological examination (general) (routine) without abnormal findings Encounter for screening mammogram for breast cancer documented in this encounter [facility] note* Diagnosis Colostomy status (HCC)- Primary Colostomy status POTS (postural orthostatic tachycardia syndrome) Tachycardia, unspecified 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 Encounter for gynecological examination (general) (routine) without abnormal findings Encounter for screening mammogram for breast cancer documented in this encounter [facility] note* Diagnosis Onset Date Resolution Status Acute kidney injury resolved Dehydration resolved Gastroenteritis resolved Acute kidney injury resolved Dehydration resolved Gastroenteritis due to norovirus resolved Metabolic acidosis resolved Orthostasis resolved Rotaviral gastroenteritis re solved [facility] Work Phone: Evaluation note* Diagnosis Bronchiectasis with acute exacerbation (HCC)- Primary Bronchiectasis with acute exacerbation Encounter for gynecological examination (general) (routine) without abnormal findings Encounter for screening mammogram for breast cancer documented in this encounter [facility] note* Diagnosis Type 2 diabetes mellitus with microalbuminuria, without long-term current use of insulin (HCC) Acquired hypothyroidism Unspecified hypothyroidism Hair thinning Alopecia, unspecified Vitamin D deficiency Unspecified vitamin D deficiency Encounter for gynecological examination (general) (routine) without abnormal findings Encounter for screening mammogram for breast cancer [facility] Diagnosis Bronchiectasis with acute exacerbation (HCC)- Primary Bronchiectasis with acute exacerbation Encounter for gynecological examination (general) (routine) without abnormal findings Encounter for screening mammogram for breast cancer [facility] Diagnosis Acquired hypothyroidism Unspecified hypothyroidism Encounter for gynecological examination (general) (routine) without abnormal findings Encounter for screening mammogram for breast cancer [facility]* Diagnosis 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 Ttieo-hoxrra-mjrk disease, unspecified Dry eye Tear film insufficiency, unspecified Recurrent erosion of right cornea Recurrent erosion of cornea Pseudophakia Lens replaced by other means Encounter for gynecological examination (general) (routine) without abnormal findings Encounter for screening mammogram for breast cancer [facility] Diagnosis 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 Encounter for gynecological examination (general) (routine) without abnormal findings Encounter for screening mammogram for breast cancer [facility] Diagnosis Vulvar pain- Primary Unspecified symptom associated with female genital organs Dysuria 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) Xahcy-zgkufq-frzd disease, unspecified Encounter for gynecological examination (general) (routine) without abnormal findings Encounter for screening mammogram for breast cancer [facility]* Diagnosis Gastroesophageal reflux disease, unspecified whether esophagitis present- Primary Encounter for gynecological examination (general) (routine) without abnormal findings Encounter for screening mammogram for breast cancer documented [facility] Diagnosis Acquired hypothyroidism- Primary Unspecified hypothyroidism Vitamin D deficiency Unspecified vitamin D deficiency Type 2 diabetes mellitus with microalbuminuria, without long-term current use of insulin (HCC) Encounter for gynecological examination (general) (routine) without abnormal findings Encounter for screening mammogram for breast cancer documented [facility] Diagnosis 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, without long-term current use of insulin (HCC) Hair thinning Alopecia, unspecified Acquired hypothyroidism Unspecified hypothyroidism Vitamin D deficiency Unspecified vitamin D deficiency Gastroesophageal reflux disease, unspecified whether esophagitis present Encounter for gynecological examination (general) (routine) without abnormal findings Encounter for screening mammogram for breast cancer [facility]* Diagnosis Onset Date Resolution Status Acute kidney injury resolved Dehydration resolved Gastroenteritis due to norovirus resolved Metabolic acidosis resolved Orthostasis resolved Rotaviral gastroenteritis re solved [facility] Work Phone: evaluation note* Diagnosis Tachycardia- Primary Tachycardia, unspecified [facility] Diagnosis Onset Date Resolution Status Increased urinary frequency acute History of DVT (deep vein thrombosis) 2016 chronic [facility] Work Phone: evaluation note* Diagnosis Acute myeloid leukemia in remission (HCC)- Primary 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 rtlyy-xgnmrt-nnwh disease documented [facility] this [facility] Diagnosis Acute myeloid leukemia in remission (HCC)- Primary 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) Complications of bone marrow transplant [facility] Diagnosis Electrolyte and fluid disorder Electrolyte and fluid disorders not elsewhere classified 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 sjaxa-wpilnh-toqb disease Acute deep vein thrombosis (DVT) of femoral vein of both lower extremities (HCC) Dyspnea and respiratory abnormalities Other dyspnea and respiratory abnormality documented [facility] this [facility] Diagnosis Acute deep vein thrombosis (DVT) of femoral vein of both lower extremities (HCC)- Primary Dyspnea and respiratory abnormalities Other dyspnea and respiratory abnormality 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 [facility] Diagnosis 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) Complications of bone marrow transplant Encounter for antineoplastic chemotherapy [facility] Diagnosis Encounter for antineoplastic chemotherapy- Primary [facility]* Diagnosis Bronchiectasis without acute exacerbation (HCC) Bronchiectasis without acute exacerbation documented in this encounter [facility]* Diagnosis Bronchiectasis with acute exacerbation (HCC)- Primary Bronchiectasis with acute exacerbation Thrush (oral) 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) Kxszq-glbfef-btzr disease, unspecified documented in this encounter [facility] note* Diagnosis Allogeneic bone marrow transplant- Primary Bone marrow replaced by transplant 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 Thrush (oral) Need for influenza vaccination Need for prophylactic vaccination and inoculation against influenza 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 History of DVT (deep vein thrombosis) Personal history of venous thrombosis and embolism Vitamin D deficiency Unspecified vitamin D deficiency Thrush Candidiasis of mouth Hypothyroidism, unspecified type documented in this encounter [facility] note* Diagnosis POTS (postural orthostatic tachycardia syndrome)- Primary Tachycardia, unspecified 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) Complications of bone marrow transplant documented in this encounter [facility] note* Diagnosis Macrocytosis- Primary Other specified diseases of blood and blood-forming organs documented in this encounter [facility] note* Diagnosis 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)- Primary Complications of bone marrow transplant Rash and nonspecific skin eruption Rash and other nonspecific skin eruption Macrocytosis without anemia Other specified diseases of blood and blood-forming organs Vitamin D deficiency Unspecified vitamin D deficiency Acquired hypothyroidism Unspecified hypothyroidism documented in this encounter [facility] note* Diagnosis Chronic rhinitis documented in this encounter [facility] note* Diagnosis 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)- Primary Acute myeloid leukemia in remission documented in this encounter [facility] note* Diagnosis Acute exacerbation of bronchiectasis (HCC)- Primary documented in this encounter [facility] note* Diagnosis Bronchiectasis without complication (HCC)- Primary Bronchiectasis without acute exacerbation documented in this encounter [facility] note* Diagnosis Onset Date Resolution Status Increased urinary frequency acute History of DVT (deep vein thrombosis) 2016 chronic Acute kidney injury acute Right bundle branch block [place] [employer] Viral syndrome acute [facility] Work Phone: Evaluation note* Diagnosis 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)- Primary Acute myeloid leukemia in remission History of DVT (deep vein thrombosis) Personal history of venous thrombosis and embolism [facility] Diagnosis 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)- Primary Acute myeloid leukemia in remission History of DVT (deep vein thrombosis) Personal history of venous thrombosis and embolism [facility]* Diagnosis 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)- Primary Acute myeloid leukemia in remission [facility]* Diagnosis Vaginal pruritus- Primary Pruritus of genital organs documented in this [facility]* Diagnosis POTS (postural orthostatic tachycardia syndrome)- Primary Tachycardia, unspecified documented in this [facility]* Diagnosis Bronchiectasis without complication (HCC)- Primary Bronchiectasis without acute exacerbation [facility]* Diagnosis Elevated liver function tests- Primary Other abnormal blood chemistry Hypothyroidism, unspecified type 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) Unspecified disorder of immune mechanism Vitamin D deficiency Unspecified vitamin D deficiency Type 2 diabetes mellitus with microalbuminuria, without long-term current use of insulin (HCC) B12 deficiency Other B-complex deficiencies Encounter for therapeutic drug monitoring documented [facility] this [facility]* Diagnosis 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)- Primary Acute myeloid leukemia in remission Encounter for therapeutic drug monitoring Elevated liver function tests Other abnormal blood chemistry Hypothyroidism, unspecified type B12 deficiency Other B-complex deficiencies Vitamin D deficiency Unspecified vitamin D deficiency Type 2 diabetes mellitus with microalbuminuria, without long-term current use of insulin (HCC) documented [facility]* Diagnosis Dry eye syndrome of bilateral lacrimal glands- Primary Tear film insufficiency, unspecified 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) Ibthi-junkdr-seij disease, unspecified [facility]* Diagnosis 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)- Primary Acute myeloid leukemia in remission [facility]* Diagnosis 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)- Primary Acute myeloid leukemia in remission B12 deficiency Other B-complex deficiencies [facility]* Diagnosis SVT (supraventricular tachycardia) (HCC)- Primary Other specified cardiac dysrhythmias 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) Complications of bone marrow transplant Other emphysema (HCC) Other emphysema documented in this encounter [facility] noteNo assessment information availableWClinton [facility] Work Phone: [facility] note* Diagnosis 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)- Primary 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 At risk for fluid and electrolyte imbalance documented in this encounter [facility] note* Diagnosis 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)- Primary Acute myeloid leukemia in remission documented in this encounter [facility] note* Diagnosis Encounter for screening mammogram for breast cancer- Primary documented in this encounter [facility] note* Diagnosis S/P allogeneic bone marrow transplant (HCC) Bone marrow replaced by transplant At risk for fluid and electrolyte imbalance documented in this encounter [facility] note* Diagnosis 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)- Primary 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 At risk for fluid and electrolyte imbalance B12 deficiency Other B-complex deficiencies History of DVT (deep vein thrombosis) Personal history of venous thrombosis and embolism Elevated liver function tests Other abnormal blood chemistry Hypothyroidism, unspecified type Type 2 diabetes mellitus with microalbuminuria, without long-term current use of insulin ([facility]) Chronic GVHD ([facility]) Chronic xdwzk-fiebbo-esbq disease documented in this encounter [facility] note* Diagnosis Bronchiectasis without complication (HCC)- Primary Bronchiectasis without acute exacerbation documented in this encounter [facility] note* Diagnosis 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)- Primary Acute myeloid leukemia in remission documented in this encounter [facility] note* Diagnosis 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)- Primary Acute myeloid leukemia in remission [facility] Diagnosis Encounter for screening mammogram for breast cancer documented in this encounter [facility] note* Diagnosis Hypothyroidism, unspecified type- Primary Vitamin D deficiency Unspecified vitamin D deficiency B12 deficiency Other B-complex deficiencies Type 2 diabetes mellitus with microalbuminuria, without long-term current use of insulin ([facility]) Encounter for therapeutic drug monitoring documented in this encounter [facility] note* Diagnosis Neuropathy- Primary Mononeuritis of unspecified site [facility]* Diagnosis 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)- Primary Acute myeloid leukemia in remission [facility] Diagnosis SVT (supraventricular tachycardia) (HCC)- Primary Other specified cardiac dysrhythmias Paroxysmal atrial fibrillation (HCC) Atrial fibrillation Primary hypertension Unspecified essential hypertension Acute deep vein thrombosis (DVT) of femoral vein of both lower extremities (HCC) [facility] Diagnosis Bronchiectasis without complication (HCC)- Primary Bronchiectasis without acute exacerbation 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) Complications of bone marrow transplant Nocturnal hypoxemia Hypoxemia Restrictive lung disease Other diseases of lung, not elsewhere classified [facility] Diagnosis Acquired hypothyroidism Unspecified hypothyroidism [facility]* Diagnosis Lesion of skin of breast- Primary Unspecified breast disorder [facility]* Diagnosis 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 Avzsm-brqfxl-pboh disease, unspecified Dry eye syndrome of bilateral lacrimal glands Tear film insufficiency, unspecified [facility] Diagnosis 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)- Primary 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 pgcjw-svojtx-trub disease History of DVT (deep vein thrombosis) Personal history of venous thrombosis and embolism [facility] Diagnosis Type 2 diabetes mellitus with microalbuminuria, without long-term current use of insulin (HCC) Vitamin D deficiency Unspecified vitamin D deficiency Acquired hypothyroidism Unspecified hypothyroidism 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 [facility] Diagnosis 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)- Primary 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) Complications of bone marrow transplant Hypomagnesemia Disorders of magnesium metabolism High serum vitamin B12 Ileostomy present (HCC) Ileostomy status Hypothyroidism, unspecified type Screening for osteoporosis Special screening for osteoporosis Asymptomatic menopause [facility] Diagnosis Encounter for therapeutic drug monitoring- Primary [facility]* Diagnosis Screening for osteoporosis Special screening for osteoporosis Asymptomatic menopause [facility]* Diagnosis 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 At risk for fluid and electrolyte imbalance [facility]* Diagnosis SOB (shortness of breath)- Primary Shortness of breath Pain in both lower extremities [facility] Diagnosis 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)- Primary 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 tbwck-cnyeyr-sncf disease History of DVT (deep vein thrombosis) Personal history of venous thrombosis and embolism 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 Dyspnea on exertion Other dyspnea and respiratory abnormality Hypertension, unspecified type Bilateral thigh pain [facility] Diagnosis Bilateral tennis elbow- Primary Lateral epicondylitis of elbow Acquired hypothyroidism Unspecified hypothyroidism Type 2 diabetes mellitus with microalbuminuria, 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) B12 deficiency Other B-complex deficiencies Vitamin D deficiency Unspecified vitamin D deficiency 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) Complications of bone marrow transplant Ileostomy present (HCC) Ileostomy status [facility] Diagnosis Encounter for gynecological examination (general) (routine) without abnormal findings Encounter for screening mammogram for breast cancer [facility] Diagnosis Lower respiratory infection Other diseases of respiratory system, not elsewhere classified [facility]* Diagnosis 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)- Primary Acute myeloid leukemia in remission [facility]* Diagnosis 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) Complications of bone [facility] Diagnosis 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) Complications of bone marrow transplant [facility]* Diagnosis Bronchiectasis without complication (HCC)- Primary Bronchiectasis without acute exacerbation Nocturnal hypoxemia Hypoxemia Restrictive lung disease Other diseases of lung, not elsewhere classified [facility]* Diagnosis Encounter for gynecological examination (general) (routine) without abnormal findings- Primary Acute on chronic GVHD (HCC) Acute on chronic leoor-uwfqcn-czgo disease 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) Uionk-windus-nbpw disease, unspecified Atrophic vaginitis Postmenopausal atrophic vaginitis Encounter for screening mammogram for breast cancer [facility]* Diagnosis SVT (supraventricular tachycardia) (HCC)- Primary Other specified cardiac dysrhythmias Primary hypertension Unspecified essential hypertension [facility] Diagnosis 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)- Primary 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, without long-term current use of insulin (HCC) Vitamin D deficiency Unspecified vitamin D deficiency Acquired hypothyroidism Unspecified hypothyroidism Hypomagnesemia Disorders of magnesium metabolism High serum vitamin B12 Chronic GVHD (HCC) Chronic tdsjs-rtywgu-llqh disease History of DVT (deep vein thrombosis) Personal history of venous thrombosis and embolism [facility] Diagnosis 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)- Primary Acute myeloid leukemia in remission History of DVT (deep vein thrombosis) Personal history of venous thrombosis and embolism [facility]* Diagnosis Medicare annual wellness visit, subsequent- Primary Routine general medical examination at a [facility] Screening for depression Encounter for screening examination for other mental health and behavioral disorders Rhinorrhea Other diseases of nasal cavity and sinuses Chronic rhinitis Hearing loss, unspecified hearing loss type, unspecified laterality Chronic insomnia Insomnia, unspecified Hypothyroidism, unspecified type Primary hypertension Unspecified essential hypertension Gastroesophageal reflux disease, unspecified whether esophagitis present Vitamin D deficiency Unspecified vitamin D deficiency Ileostomy present ([facility]) Ileostomy status [facility] Diagnosis Injury of right lower leg, initial encounter- Primary documented [facility] Diagnosis 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)- Primary Acute myeloid leukemia in remission [facility] Diagnosis Acquired hypothyroidism Unspecified hypothyroidism documented in this [facility] Diagnosis 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 Yykps-jjbfjm-bzkx disease, unspecified Dry eye syndrome of bilateral lacrimal glands Tear film insufficiency, unspecified Pseudophakia Lens replaced by other means [facility] Diagnosis 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)- Primary 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 [facility]* Diagnosis Bronchiectasis without complication (HCC)- Primary Bronchiectasis without acute exacerbation 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) Complications of bone marrow transplant Chronic sinusitis, unspecified location Class II obesity documented in this [facility] Diagnosis 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)- Primary Acute myeloid leukemia in remission History of DVT (deep vein thrombosis) Personal history of venous thrombosis and embolism Rectal bleeding Hemorrhage of rectum and anus documented in this encounter [facility] Diagnosis Ileostomy present (HCC) Ileostomy status Hypothyroidism, unspecified type Primary hypertension Unspecified essential hypertension Vitamin D deficiency Unspecified vitamin D deficiency Gastroesophageal reflux disease, unspecified whether esophagitis present 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 documented in this [facility] Diagnosis Rectal bleeding- Primary Hemorrhage of rectum and anus [facility] Diagnosis Rectal bleeding- Primary Hemorrhage of rectum and anus documented in this [facility] Diagnosis Rectal bleeding- Primary Hemorrhage of rectum and anus documented in this [facility] Diagnosis Bilateral lower extremity edema- Primary Edema Class 1 obesity due to excess calories with body mass index (BMI) of 34.0 to 34.9 in adult, unspecified whether serious comorbidity present Myalgia Mylagia and myositis, unspecified Encounter for long-term current use of medication Acquired hypothyroidism Unspecified hypothyroidism Vitamin D deficiency Unspecified vitamin D deficiency Ileostomy present (HCC) Ileostomy status Chronic fatigue Other malaise and fatigue Primary hypertension Unspecified essential hypertension [facility] this [facility] Diagnosis 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 documented in this [facility] Diagnosis Encounter for screening for cardiovascular disorders- Primary Screening for other and unspecified cardiovascular conditions documented in this [facility] Diagnosis 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)- Primary Complications of bone marrow transplant Vitamin D deficiency Unspecified vitamin D deficiency Primary hypertension Unspecified essential hypertension S/P colectomy Other postprocedural status Rectal bleeding Hemorrhage of rectum and anus Osteoporosis, unspecified osteoporosis type, unspecified pathological fracture presence 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 Work Phone: [facility]: [facility] Phone[facility] Work Phone: Reason for referral (narrative)* Outpatient Procedure (Routine) - Authorized Specialty Diagnoses / Procedures Referred By Contac t Referred To Contact [facility] Diagnoses Tachycardia Procedures ECG COMPLETE ECG ROUTINE ECG W/LEAST 12 LDS W/I&R Nidia Green APRN.LEAD HOUSEKEEPER [address] [place] [address] [facility] [address] [place] [address] Referral ID Status Reason Start Date Expiration Date Visits Requested Visits Authorized [id number] Authorized Auto-Generat ed Referral 06/01/2022 06/01/2023 1 1 [facility] for referral (narrative)* Outpatient Procedure (Urgent) - Authorized Specialty Diagnoses / Procedures Referred By Contac t Referred To Contact [facility] Diagnoses Acute deep vein thrombosis (DVT) of femoral vein of both lower extremities (HCC) Dyspnea and respiratory abnormalities Procedures ECHO ECHO TTHRC R-T 2D W/WOM-MODE COMPL SPEC&COLR D Clare Baez DO [address] [place] [address] [facility] [address] [place] [address] Referral ID Status Reason Start Date Expiration Date Visits Requested Visits Authorized [id number] Authorized Auto-Generat ed Referral 06/04/2022 06/04/2023 1 1 [facility] for referral (narrative)* Diagnostic Procedure Only (Routine) - Authorized Specialty Diagnoses / Procedures Referred By Contac t Referred To Contact [facility] Diagnoses Encounter for screening mammogram for breast cancer Procedures AUGUST SCREENING SCREENING MAMMOGRAPHY BI 2-VIEW BREAST INC CAD Cristina Bartlett ANESTHESIA ATTENDING.LEAD HOUSEKEEPER [address] [place] [address] [facility] [address] [place] [address] Referral ID Status Reason Start Date Expiration Date Visits Requested Visits Authorized [id number] Authorized Auto-Generat ed Referral 04/28/2023 05/26/2024 1 1 [facility] for referral (narrative)* Diagnostic Procedure Only (Routine) - Closed Specialty Diagnoses / Procedures Referred By Alcira t Referred To Contact [facility] Diagnoses Encounter for screening mammogram for breast cancer Procedures AUGUST SCREENING SCREENING MAMMOGRAPHY BI 2-VIEW BREAST INC CAD Cristina Bartlett APRN.CNP [address] [place] [address] [facility] [address] [place] [id number] Referral ID Status Reason Start Date Expiration Date V isits Requested Visits Authorized [id number] Closed Auto-Generate d Referral 04/28/2023 05/26/2024 1 1 [facility] for referral (narrative)* Outpatient Procedure (Routine) - Pending Review Specialty Diagnoses / Procedures Referred By Alcira t Referred To [facility] Diagnoses SVT (supraventricular tachycardia) (HCC) Paroxysmal atrial fibrillation (HCC) Primary hypertension Procedures ECG COMPLETE ECG ROUTINE ECG W/LEAST 12 LDS W/I&R Sy Matthews MD [address] [facility] [place] [address] [facility] [address] [place] [address] Referral ID Status Reason Start Date Expiration Date Visits Requested Visits Authorized [id number] Pending Review Auto-Generat ed Referral 12/20/2023 12/19/2024 1 1 [facility] for referral (narrative)* Outpatient Procedure (Routine) - Authorized Specialty Diagnoses / Procedures Referred By Contac t Referred To Contact [facility] 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) Procedures LUNG DIFFUSION CAPACITY (DLCO) DIFFUSING CAPACITY Chrissy Moser MD [address] [place] [address] [address] Referral ID Status Reason Start Date Expiration Date Visits Requested Visits Authorized [id number] Authorized Auto-Generat ed Referral 12/20/2023 01/18/2025 1 1 * Outpatient Procedure (Routine) - Authorized Specialty Diagnoses / Procedures Referred By Contac t Referred [facility] 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) Procedures LUNG VOLUMES Chrissy Moser MD [address] [place] [address] [address] Referral ID Status Reason Start Date Expiration Date Visits Requested Visits Authorized [id number] Authorized Auto-Generat ed Referral 12/20/2023 01/18/2025 1 1 * Outpatient Procedure (Routine) - Authorized Specialty Diagnoses / Procedures Referred By Alcira t Referred To [facility] 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) Procedures SPIROMETRY WITH DILATOR IF OBSTRUCTED BRNCDILAT RSPSE SPMTRY PRE&POST-BRNCDILAT ADMN Chrissy Moser MD [address] [place] [address] [address] Referral ID Status Reason Start Date Expiration Date Visits Requested Visits Authorized [id number] Authorized Auto-Generat ed Referral 12/20/2023 01/18/2025 1 1 [facility] for referral (narrative)* Diagnostic Procedure Only (Routine) - Pending Review Specialty Diagnoses / Procedures Referred By Contac t Referred To Contact [facility] Diagnoses Lesion of skin of breast Procedures US BREAST LTD RIGHT US BREAST UNI REAL TIME WITH IMAGE LIMITED Selina Driscoll APRN.BIG DATA HADOOP DEVELOPER [address] [place] [address] [facility] [address] [place] [address] Referral ID Status Reason Start Date Expiration Date Visits Requested Visits Authorized [id number] Pending Review Auto-Generat ed Referral 02/10/2024 03/11/2025 1 1 * Diagnostic Procedure Only (Routine) - Pending Review Specialty Diagnoses / Procedures Referred By Contac t Referred To Contact [facility] Diagnoses Lesion of skin of breast Procedures AUGUST DIAGNOSTIC RIGHT DIAGNOSTIC MAMMOGRAPHY COMPUTER-AIDED DETCJ UNI Selina Driscoll APRN.BIG DATA HADOOP DEVELOPER [address] [place] [address] [facility] [address] [place] [address] Referral ID Status Reason Start Date Expiration Date Visits Requested Visits Authorized [id number] Pending Review Auto-Generat ed Referral 02/10/2024 03/11/2025 1 1 [facility] for referral (narrative)* Diagnostic Procedure Only (Routine) - Authorized Specialty Diagnoses / Procedures Referred By Contac t Referred To Contact [facility] Diagnoses Screening for osteoporosis Asymptomatic menopause Procedures DXA-AXIAL SKELETON Param Vizcaino APRN.LEAD HOUSEKEEPER [address] [place], [place] [id number] [place] [address] Referral ID Status Reason Start Date Expiration Date Visits Requested Visits Authorized [id number] Authorized Auto-Generat ed Referral 03/29/2024 04/28/2025 1 1 [facility] for referral (narrative)* Diagnostic Procedure Only (Routine) - Closed Specialty Diagnoses / Procedures Referred By Contac t Referred To Contact [facility] Diagnoses Screening for osteoporosis Asymptomatic menopause Procedures DXA-AXIAL SKELETON Param Vizcaino APRN.CNP [address] [place] [address] [place] [address] Referral ID Status Reason Start Date Expiration Date V isits Requested Visits Authorized [id number] Closed Auto-Generate d Referral 03/29/2024 04/28/2025 1 1 [facility] for referral (narrative)* Diagnostic Procedure Only (Routine) - New Request Specialty Diagnoses / Procedures Referred By Contac t Referred To Contact [facility] Diagnoses Pain in both lower extremities Procedures US ART DUPL LOWER EXT BILATERAL DUP-SCAN LXTR ART/ARTL BPGS COMPL BI STUDY Sg Julien MD [address] [place] [address] [facility] [place] [address] Referral ID Status Reason Start Date Expiration Date Visits Requested Visits Authorized [id number] New Request Auto-Generat ed Referral 06/02/2024 07/02/2025 1 1 * Outpatient Procedure (Routine) - Authorized Specialty Diagnoses / Procedures Referred By Anhac t Referred [facility] Diagnoses SOB (shortness of breath) Procedures ECHO ECHO TTHRC R-T 2D W/WOM-MODE COMPL SPEC&COLR D Sg Julien MD [address] [place] [address] [facility] [place] [facility] [place] [address] Referral ID Status Reason Start Date Expiration Date Visits Requested Visits Authorized [id number] Authorized Auto-Generat ed Referral 06/02/2024 06/02/2025 1 1 [facility] for referral (narrative)* Diagnostic Procedure Only (Routine) - Closed Specialty Diagnoses / Procedures Referred By Contac t Referred To Contact [facility] Diagnoses Encounter for gynecological examination (general) (routine) without abnormal findings Encounter for screening mammogram for breast cancer Procedures AUGUST SCREENING SCREENING MAMMOGRAPHY BI 2-VIEW BREAST INC Nithya Benton MD [address] [place] [address] [facility] [address] [place] [address] Referral ID Status Reason Start Date Expiration Date V isits Requested Visits Authorized [id number] Closed Auto-Generate d Referral 07/22/2023 08/20/2024 1 1 [facility] for referral (narrative)* Diagnostic Procedure Only (Routine) - Authorized Specialty Diagnoses / Procedures Referred By Alcira herrera Referred To Contact [facility] Diagnoses Encounter for gynecological examination (general) (routine) without abnormal findings Encounter for screening mammogram for breast cancer Procedures AUGUST SCREENING W JULIETA SCREENING DIGITAL BREAST TOMOSYNTHESIS BI SCREENING MAMMOGRAPHY BI 2-VIEW BREAST INC Nithya Benton MD [address] [place] [address] [facility] [address] [place] [address] Referral ID Status Reason Start Date Expiration Date Visits Requested Visits Authorized [id number] Authorized Auto-Generat ed Referral 07/26/2024 08/25/2025 1 1 [facility] for referral (narrative)* Diagnostic Procedure Only (Urgent) - Closed Specialty Diagnoses / Procedures Referred By Alcira herrera Referred To Contact [facility] Diagnoses Injury of right lower leg, initial encounter Procedures XR TIBIA FIBULA 2V AP/LAT RIGHT RADIOLOGIC EXAMINATION TIBIA & FIBULA 2 VIEWS Xiao Coffey APRN.LEAD HOUSEKEEPER [address] [place] [address] [place] [address] Referral ID Status Reason Start Date Expiration Date V isits Requested Visits Authorized [id number] Closed Auto-Generate d Referral 10/18/2024 11/17/2025 1 1 [facility] for visit Narrative* Diagnostic Procedure Only (Routine) - Closed Specialty Diagnoses / Procedures Referred By Contac t Referred To Contact BR IMAGING Diagnoses Encounter for gynecological examination (general) (routine) without abnormal findings Encounter for screening mammogram for breast cancer Procedures AUGUST SCREENING SCREENING MAMMOGRAPHY BI 2-VIEW BREAST INC CAD Nithya Casiano MD [address] [place] [address] Br Imaging [address] [place] [address] Referral ID Status Reason Start Date Expiration Date V isits Requested Visits Authorized [id number] Closed Auto-Generate d Referral 09/03/2021 10/03/2022 1 1 [facility] for visit Narrative* Auth/Cert Specialty Diagnoses / Procedures Referred By Alcira t Referred To Contact Diagnoses Acute exacerbation of bronchiectasis (HCC) Hypoxia Referral ID Status Reason Start Date Expiration Date Visits Re quested Visits Authorized [id number] 1 1 [facility] for visit Narrative* Diagnostic Procedure Only (Routine) - Closed Specialty Diagnoses / Procedures Referred By Contac t Referred To Contact BR IMAGING Diagnoses Encounter for screening mammogram for breast cancer Procedures AUGUST SCREENING SCREENING MAMMOGRAPHY BI 2-VIEW BREAST INC CAD Cristina Bartlett ANESTHESIA ATTENDING.LEAD HOUSEKEEPER [address] [place] [address] Br Imaging [address] [place] [id number] Referral ID Status Reason Start Date Expiration Date V isits Requested Visits Authorized [id number] Closed Auto-Generate d Referral 04/28/2023 05/26/2024 1 1 [facility] for visit Narrative* Diagnostic Procedure Only (Routine) - Closed Specialty Diagnoses / Procedures Referred By Contac t Referred To Contact XR IMAGING Diagnoses Screening for osteoporosis Asymptomatic menopause Procedures DXA-AXIAL SKELETON Param Vizcaino ANESTHESIA ATTENDING.LEAD HOUSEKEEPER [address] [place] [address] [place] [address] Referral ID Status Reason Start Date Expiration Date V isits Requested Visits Authorized [id number] Closed Auto-Generate d Referral 03/29/2024 04/28/2025 1 1 [facility] for visit Narrative* Diagnostic Procedure Only (Routine) - Closed Specialty Diagnoses / Procedures Referred By Alcira herrera Referred To Contact BR IMAGING Diagnoses Encounter for gynecological examination (general) (routine) without abnormal findings Encounter for screening mammogram for breast cancer Procedures AUGUST SCREENING SCREENING MAMMOGRAPHY BI 2-VIEW BREAST INC CAD Nithya Casiano MD [address] [place] [address] Br Imaging [address] [place] [address] Referral ID Status Reason Start Date Expiration Date V isits Requested Visits Authorized [id number] Closed Auto-Generate d Referral 07/22/2023 08/20/2024 1 1 [facility] for visit Narrative* Diagnostic Procedure Only (Urgent) - Closed Specialty Diagnoses / Procedures Referred By Alcira herrera Referred To Contact XR IMAGING Diagnoses Injury of right lower leg, initial encounter Procedures XR TIBIA FIBULA 2V AP/LAT RIGHT RADIOLOGIC EXAMINATION TIBIA & FIBULA 2 VIEWS Xiao Coffey APRN.LEAD HOUSEKEEPER [address] [place] [address] [place] [address] Referral ID Status Reason Start Date Expiration Date V isits Requested Visits Authorized [id number] Closed Auto-Generate d Referral 10/18/2024 11/17/2025 1 1 [facility] for visit Narrative* Outpatient Procedure (Routine) - Closed Specialty Diagnoses / Procedures Referred By Alcira herrera Referred To Contact [facility] Diagnoses Rectal bleeding Procedures COLONOSCOPY DIAGNOSTIC COLONOSCOPY FLX DX W/COLLJ SPEC WHEN PFJonathan Rojas MD [address] [place] [address] Phone: tel: fax: [facility] [address] [place] [address] Referral ID Status Reason Start Date Expiration Date V isits Requested Visits Authorized [id number] Closed Auto-Generate d Referral 03/29/2025 03/29/2026 1 1 [facility] Summary Purpose Family History Relationship Condition Age at Onset Recorded Date/T kwabena Unknown Family History?- Unknown November 18, 2014 4:21am Family History?Cancer Unknown February 102019 3:26am Family History?Diabe emily, Heart Disease, - Unknown February 11, 2020 3:26am Relationship Condition Age at Onset Recorded Date/T kwabena Unknown Family History?Cancer Unknown February 102019 3:26am Family History?Diabe emily, Heart Disease, - Unknown February 11, 2020 3:26am Family History?Diabe emily, Heart Disease, - Unknown February 28, 2022 12:01pm Relationship Condition Age at Onset Recorded Date/T kwabena Unknown Family History?Cancer Unknown February 102019 2:26am Family History?Diabe emily, Heart Disease, - Unknown February 11, 2020 2:26am Family History?Diabe emily, Heart Disease, - Unknown February 28, 2022 11:01am Relationship Condition Age at Onset Recorded Date/T kwabena mother Diabetes mellitus Unknown Cardiac disease Unknown father Malignant neoplasm Unknown Alcoholism Unknown Advance Directives Documents on File Type Date Recorded 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 Advance Directives and Livin g Will 09/11/2018 7:23 PM Advance Directives and Livin g Will 09/12/2018 12:42 PM Advance Directives and Livin g Will 09/17/2018 11:24 AM Documents on File Type Date Recorded 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 Advance Directive(s) 06/24/2021 3:54 PM Advance Directive(s) 05/10/2020 4:21 PM Advance Directive(s) 02/22/2020 6:40 AM Advance Directive(s) 02/14/2020 3:45 PM Advance Directive(s) 01/11/2019 4:05 PM Advance Directive(s) 09/06/2018 6:58 AM Advance Directive(s) 09/01/2018 2:49 PM Advance Directive(s) 06/11/2017 9:34 AM Advance Directive(s) 01/25/2017 11:57 AM Advance Directive(s) 01/15/2017 3:37 PM Advance Directive(s) 09/28/2016 2:49 PM Advance Directive(s) 11/21/2015 8:33 PM Advance Directive(s) 08/13/2014 6:39 PM Documents on File Type Date Recorded 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 Advance Directive(s) 06/24/2021 3:54 PM Advance Directive(s) 05/10/2020 4:21 PM Advance Directive(s) 02/22/2020 6:40 AM Advance Directive(s) 02/14/2020 3:45 PM Advance Directive(s) 01/11/2019 4:05 PM Advance Directive(s) 09/06/2018 6:58 AM Advance Directive(s) 09/01/2018 2:49 PM Advance Directive(s) 06/11/2017 9:34 AM Advance Directive(s) 01/25/2017 11:57 AM Advance Directive(s) 01/15/2017 3:37 PM Advance Directive(s) 09/28/2016 2:49 PM Advance Directive(s) 11/21/2015 8:33 PM Advance Directive(s) 08/13/2014 6:39 PM Advance Directive Response Recorded Date/ Time Advance Directives Yes July 28, 2016 2:43pm Living Will No January 07, 2022 11:12pm Power of Car Washer No January 07 11:12pm Advance Directive Response Recorded Date/ Time Advance Directives Yes July 28, 2016 2:43pm Living Will Yes January 08, 2022 2:36am Power of Car Washer Yes January 08 2:36am Advance Directive Response Recorded Date/ Time Name of Medical Power of Car Washer Howard Smith January 08, 2022 2:36am Advance Directives Yes July 28, 2016 2:43pm Living Will No January 11, 2022 8:45pm Power of Car Washer No January 11 8:45pm Advance Directive Response Recorded Date/ Time Name of Medical Power of Car Washer Howard Smith January 08, 2022 2:36am Advance Directives Yes July 28, 2016 2:43pm Living Will Yes January 11, 2022 11:14pm Power of Car Washer Yes January 11 11:14pm Advance Directive Response Recorded Date/ Time Name of Medical Power of Car Washer Howard Luis January 08, 2022 2:36am Name of Medical Power of Car Washer Howard Luis January 11, 2022 11:14pm Advance Directives Yes July 28, 2016 2:43pm Living Will Yes February 26, 2022 2 :35pm Power of Car Washer Yes February 26, 2022 2:35pm Documents on File Type Date Recorded 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 Advance Directive(s) 08/13/2014 6:39 PM Advance Directive Response Recorded Date/ Time Name of Medical Power of Car Washer Howard Smith January 11, 2022 11:14pm Name of Medical Power of Car Washer Ryan BRAYS February 26, 2022 2:35pm Name of Medical Power of Car Washer Howard Smith May 13, 2022 11:29am Advance Directives Yes February 28 12:01pm Living Will No May 15 12:27pm Power of Car Washer No May 15 022 12:27pm Documents on File Type Date Recorded 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 Advance Directive(s) 08/13/2014 6:39 PM Advance Directive Response Recorded Date/ Time Name of Medical Power of Car Washer Ryan BRAYS February 26, 2022 2:35pm Name of Medical Power of Car Washer Howard Smith May 13, 2022 11:29am Advance Directives Yes February 28 12:01pm Living Will No May 15 12:27pm Power of Car Washer No May 15 12:27pm Advance Directive Response Recorded Date/ Time Name of Medical Power of Car Washer Howard Brays May 13, 2022 10:29am Name of Medical Power of Car Washer ryan luis June 18, 2022 8:58pm Name of Medical Power of Car Washer Ryan Luis August 12, 2022 2:11am Advance Directives Yes February 28 11:01am Living Will Yes August 12 022 2:11am Power of Car Washer Yes August 12, 2022 2:11am Latest Code Status on File Code Status Date Activated Date Inactivated Comments Full Code 08/15/2022 10:04 PM 08/18/2022 5:14 PM Advance Directive Response Recorded Date/ Time Name of Medical Power of Car Washer Howard Brays May 13, 2022 10:29am Name of Medical Power of Car Washer ryan luis June 18, 2022 8:58pm Name of Medical Power of Car Washer Ryan Smith August 12, 2022 2:11am Name of Medical Power of Car Washer helga Whittaker August 23, 2022 2:53pm Advance Directives Yes February 28 11:01am Living Will Yes August 23 2:53pm Power of Car Washer Yes August 23, 2022 2:53pm Advance Directive Response Recorded Date/ Time Name of Medical Power of Car Washer Howard Smith May 13, 2022 10:29am Name of Medical Power of Car Washer ryan smith June 18, 2022 8:58pm Name of Medical Power of Car Washer Ryan Smith August 12, 2022 2:11am Name of Medical Power of Car Washer Howard Smith August 23, 2022 7:44pm Advance Directives Yes February 28 11:01am Living Will Yes August 23 7:44pm Power of Car Washer Yes August 23, 2022 7:44pm Advance Directive Response Recorded Date/ Time Advance Directives Yes February 28 12:01pm Living Will No March 24, 2023 1 1:36pm Power of Car Washer No March 24, 2023 11:36pm Discharge Instructions * Larry Small, DO - 09/17/2018 Formatting of this note may be different from the original. Dehydration: Care Instructions Your Care Instructions Dehydration happens when your body loses too much fluid. This might happen when you do not drink enough water or you lose large amounts of fluids from your body because of diarrhea, vomiting, or sweating. Severe dehydration can be life-threatening. Water and minerals called electrolytes help put your body fluids back in balance. Learn the early signs of fluid loss, and drink more fluids to prevent dehydration. Follow-up care is a escoto part of your treatment and safety. Be sure to make and go to all appointments, and call your doctor if you are having problems. It's also a good idea to know your test resultsand keep a list of the medicines you take. How can you care for yourself at home? To prevent dehydration, drink plenty of fluids, enough so that your urine is light yellow or clear like water. Choose water and other caffeine-free clear liquids until you feel better. If you have kidney, heart, or liver disease and have to limit fluids, talk with your doctor before you increase the amount of fluids you drink. If you do not feel like eating or drinking, try taking small sips of water, sports drinks, or otherrehydration drinks. Get plenty of rest. To prevent dehydration Add more fluids to your diet and daily routine, unless your doctor has told you not to. During hot weather, drink more fluids. Drink even more fluids if you exercise a lot. Stay away fromdrinks with alcohol or caffeine. Watch for the symptoms of dehydration. These include: ? A dry, sticky mouth. ? Dark yellow urine, and not much of it. ? Dry and sunken eyes. ? Feeling very tired. Learn what problems can lead to dehydration. These include: ? Diarrhea, fever, and vomiting. ? Any illness with a fever, such as pneumonia or the flu. ? Activities that cause heavy sweating, such as endurance races and heavy outdoor work in hot or humid weather. ? Alcohol or drug abuse or withdrawal. ? Certain medicines, such as cold and allergy pills (antihistamines), diet pills (diuretics), and laxatives. ? Certain diseases, such as diabetes, cancer, and heart or kidney disease. When should you call for help? Call 911 anytime you think you may need emergency care. For example, call if: You passed out (lost consciousness). Call your doctor now or seek immediate medical care if: You are confused and cannot think clearly. You are dizzy or lightheaded, or you feel like you may faint. You have signs of needing more fluids. You have sunken eyes and a dry mouth, and you pass only a little dark urine. You cannot keep fluids down. Watch closely for changes in your health, and be sure to contact your doctor if: You are not making tears. Your skin is very dry and sags slowly back into place after you pinch it. Your mouth and eyes are very dry. Where can you learn more? Log into your personal health record on [email or web address] and enter Q814 in the Education box to learn more about Dehydration: Care Instructions. Current as of: June 12, 2018 Content Version: [id number] [employer]. Care instructions adapted under license by your healthcare professional. If you have questions about a medical condition or this instruction, always ask your healthcare professional. [employer] disclaims any warranty or liability for your use of this information. Diarrhea: Care Instructions Your Care Instructions Diarrhea is loose, watery stools (bowel movements). The exact cause is often hard to find. Sometimes diarrhea is your body's way of getting rid of what caused an upset stomach. Viruses, food poisoning, and many medicines can cause diarrhea. Some people get diarrhea in response to emotional stress, anxiety, or certain foods. Almost everyone has diarrhea now and then. It usually isn't serious, and your stools will return tonormal soon. The important thing to do is replace the fluids you have lost, so you can prevent dehydration. The doctor has checked you carefully, but problems can develop later. If you notice any problems ornew symptoms, get medical treatment right away. Follow-up care is a escoto part of your treatment and safety. Be sure to make and go to all appointments, and call your doctor if you are having problems. It's also a good idea to know your test resultsand keep a list of the medicines you take. How can you care for yourself at home? Watch for signs of dehydration, which means your body has lost too much water. Dehydration is a serious condition and should be treated right away. Signs of dehydration are: ? Increasing thirst and dry eyes and mouth. ? Feeling faint or lightheaded. ? Darker urine, and a smaller amount of urine than normal. To prevent dehydration, drink plenty of fluids, enough so that your urine is light yellow or clear like water. Choose water and other caffeine-free clear liquids until you feel better. If you have kidney, heart, or liver disease and have to limit fluids, talk with your doctor before you increase the amount of fluids you drink. Begin eating small amounts of mild foods the next day, if you feel like it. ? Try yogurt that has live cultures of Lactobacillus. (Check the label.) ? Avoid spicy foods, fruits, alcohol, and caffeine until 48 hours after all symptoms are gone. ? Avoid chewing gum that contains sorbitol. ? Avoid dairy products (except for yogurt with Lactobacillus) while you have diarrhea and for 3 days after symptoms are gone. The doctor may recommend that you take [id number] medicine, such as loperamide (Imodium), if you still have diarrhea after 6 hours. Read and follow all instructions on the label. Do not use this medicine if you have bloody diarrhea, a high fever, or other signs of serious illness. Call your doctor if you think you are having a problem with your medicine. When should you call for help? Call 911 anytime you think you may need emergency care. For example, call if: You passed out (lost consciousness). Your stools are maroon or very bloody. Call your doctor now or seek immediate medical care if: You are dizzy or lightheaded, or you feel like you may faint. Your stools are black and look like tar, or they have streaks of blood. You have new or worse belly pain. You have symptoms of dehydration, such as: ? Dry eyes and a dry mouth. ? Passing only a little dark urine. ? Feeling thirstier than usual. You have a new or higher fever. Watch closely for changes in your health, and be sure to contact your doctor if: Your diarrhea is getting worse. You see pus in the diarrhea. You are not getting better after 2 days (48 hours). Where can you learn more? Log into your personal health record on [email or web address] and enter W335 in the Education box to learn more about Diarrhea: Care Instructions. Current as of: June 12, 2018 Content Version: [id number] [employer]. Care instructions adapted under license by your healthcare professional. If you have questions about a medical condition or this instruction, always ask your healthcare professional. [employer] disclaims any warranty or liability for your use of this information. Nausea and Vomiting: Care Instructions Your Care Instructions When you are nauseated, you may feel weak and sweaty and notice a lot of saliva in your mouth. Nausea often leads to vomiting. Most of the time you do not need to worry about nausea and vomiting, butthey can be signs of other illnesses. Two common causes of nausea and vomiting are stomach flu and food poisoning. Nausea and vomiting from viral stomach flu will usually start to improve within 24 hours. Nausea and vomiting from food poisoning may last from 12 to 48 hours. The doctor has checked you carefully, but problems can develop later. If you notice any problems ornew symptoms, get medical treatment right away. Follow-up care is a escoto part of your treatment and safety. Be sure to make and go to all appointments, and call your doctor if you are having problems. It's also a good idea to know your test resultsand keep a list of the medicines you take. How can you care for yourself at home? To prevent dehydration, drink plenty of fluids, enough so that your urine is light yellow or clear like water. Choose water and other caffeine-free clear liquids until you feel better. If you have kidney, heart, or liver disease and have to limit fluids, talk with your doctor before you increase the amount of fluids you drink. Rest in bed until you feel better. When you are able to eat, try clear soups, mild foods, and liquids until all symptoms are gone for 12 to 48 hours. Other good choices include dry toast, crackers, cooked cereal, and gelatin dessert, such as Jell-O. When should you call for help? Call 911 anytime you think you may need emergency care. For example, call if: You passed out (lost consciousness). Call your doctor now or seek immediate medical care if: You have symptoms of dehydration, such as: ? Dry eyes and a dry mouth. ? Passing only a little dark urine. ? Feeling thirstier than usual. You have new or worsening belly pain. You have a new or higher fever. You vomit blood or what looks like coffee grounds. Watch closely for changes in your health, and be sure to contact your doctor if: You have ongoing nausea and vomiting. Your vomiting is getting worse. Your vomiting lasts longer than 2 days. You are not getting better as expected. Where can you learn more? Log into your personal health record on [email or web address] and enter H591 in the Education box to learn more about Nausea and Vomiting: Care Instructions. Current as of: June 12, 2018 Content Version: 11.9 [id number] [employer]. Care instructions adapted under license by your healthcare professional. If you have questions about a medical condition or this instruction, always ask your healthcare professional. [employer] disclaims any warranty or liability for your use of this information. in this encounter Assessments Diagnosis Dehydration- Primary Nausea vomiting and diarrhea Reason for Referral Specialty Diagnoses / Procedures Referred By Alcira herrera Referred To Contact CT IMAGING Diagnoses Ventral hernia without obstruction or gangrene Procedures CT ABD/PEL WO IVCON CT ABD & PELVIS W/O CONTRAST Larry Gaona MD [address] [place] [address] Ct Imaging Referral ID Status Reason Start Date Expiration Date Visits Requested Visits Authorized [id number] Pending Review Auto-Generat ed Referral 12/22/2021 01/21/2023 1 1 Specialty Diagnoses / Procedures Referred By Alcira herrera Referred To Contact Ent - Otolaryngology Diagnoses Hearing loss, unspecified hearing loss type, unspecified laterality Procedures CONSULT TO ENT OFFICE/OUTPATIENT 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 [address] [place] [address] Referral ID Status Reason Start Date Expiration Date Visits Requested Visits Authorized [id number] Authorized PCP Requested Referral 09/21/2024 09/21/2025 1 Chief Complaint and Reason for Visit Chief Complaint GASTROENTERITIS, PEPE Reason for Visit Acute kidney injury Dehydration Gastroenteritis Chief Complaint GASTROENTERITIS WITH ARF GASTROENTERITIS, PEPE GASTROENTERITIS WITH ARF GASTROENTERITIS WITH ARF Reason for Visit Acute kidney injury Dehydration Gastroenteritis Chief Complaint GASTROENTERITIS WITH ARF GASTROENTERITIS, PEPE GASTROENTERITIS WITH ARF GASTROENTERITIS WITH ARF DEHYDRATION FROM GASTROENTERITIS Reason for Visit Acute kidney injury Dehydration Gastroenteritis Acute kidney injury Dehydration Orthostasis Rotaviral gastroenteritis Chief Complaint GASTROENTERITIS WITH ARF GASTROENTERITIS, PEPE GASTROENTERITIS WITH ARF GASTROENTERITIS WITH ARF DEHYDRATION FROM GASTROENTERITIS DEHYDRATION FROM GASTROENTERITIS DEHYDRATION FROM GASTROENTERITIS DEHYDRATION FROM GASTROENTERITIS DEHYDRATION FROM GASTROENTERITIS DEHYDRATION FROM GASTROENTERITIS Reason for Visit Dehydration Gastroenteritis Acute kidney injury Dehydration Gastroenteritis due to norovirus High output ileostomy Hypokalemia Hypophosphatemia Orthostasis Rotaviral gastroenteritis Acute kidney injury Metabolic acidosis Chief Complaint GASTROENTERITIS WITH ARF GASTROENTERITIS, PEPE GASTROENTERITIS WITH ARF GASTROENTERITIS WITH ARF DEHYDRATION FROM GASTROENTERITIS DEHYDRATION FROM GASTROENTERITIS DEHYDRATION FROM GASTROENTERITIS DEHYDRATION FROM GASTROENTERITIS DEHYDRATION FROM GASTROENTERITIS DEHYDRATION FROM GASTROENTERITIS CONGESTION Reason for Visit Acute kidney injury Dehydration Gastroenteritis Acute kidney injury Dehydration Gastroenteritis due to norovirus Metabolic acidosis Orthostasis Rotaviral gastroenteritis Chief Complaint DEHYDRATION FROM GAS TROENTERITIS DEHYDRATION FROM GASTROENTERITIS CONGESTION gu complaint ABD PAIN Reason for Visit Acute kidney injury Dehydration Gastroenteritis due to norovirus Metabolic acidosis Orthostasis Rotaviral gastroenteritis Chief Complaint CONGESTION gu complaint ABD PAIN CONCERN FOR UTI Reason for Visit Increased urinary fr equency History of DVT (deep vein thrombosis) Chief Complaint gu complaint ABD PAIN CONCERN FOR UTI COUGH,WHEEZING,CP shortness of breath Reason for Visit Increased urinary fr equency History of DVT (deep vein thrombosis) Chief Complaint gu complaint ABD PAIN CONCERN FOR UTI COUGH,WHEEZING,CP shortness of breath GENERAL ILLNESS CIRAL SYNDROME,BRONCHOSPASMS, PEPE Reason for Visit Increased urinary fr equency History of DVT (deep vein thrombosis) Acute kidney injury Right bundle branch block Viral syndrome Chief Complaint gu complaint ABD PAIN CONCERN FOR UTI COUGH,WHEEZING,CP shortness of breath GENERAL ILLNESS VIRAL SYNDROME,BRONCHOSPASMS, PEPE Reason for Visit Increased urinary fr equency History of DVT (deep vein thrombosis) Acute kidney injury Right bundle branch block Viral syndrome Chief Complaint ABDOMINAL PAIN Medications Administered Section Active Administered Medications - up to 3 most recent administrations Medication Order MAR Action Action Date Dose Rate Site proparacaine 0.5 % 1 Drop (ALCAINE) 1 Drop, BOTH EYES, DIRECTED, Starting on Wed03/30/22 at 1100, Until Wed03/30/22 at 2259, Administer for pneumo tonometry, tonopen tonometry, or pachymetry. In the event of a proparacaine shortage, administer tetracaine 0.5% ophthalmic drops 1 drop in the left eye as directed for pneumo tonometry, tonopen tonometry, or pachymetry Given 03/30/2022 11:00 AM EDT 1 Drop tropicamide 1 % 1 Drop (MYDRIACYL) 1 Drop, BOTH EYES, DIRECTED, Starting on Wed03/30/22 at 1100, Until Wed03/30/22 at 2259, Administer for dilation Given 03/30/2022 11:00 AM EDT 1 Drop Health Concerns Problem Noted Date High Risk Chronic Disease Home Monitorin g Problem 02/03/2023 Problem Noted Date High Risk Chronic Disease Home Monitorin g Problem 02/03/2023 Problem Noted Date High Risk Chronic Disease Home Monitorin g Problem 02/03/2023 Problem Noted Date High Risk Chronic Disease Home Monitorin g Problem 02/03/2023 Problem Noted Date High Risk Chronic Disease Home Monitorin g Problem 02/03/2023 Problem Noted Date Diagnosed Date High Risk Chronic Disease Home Monitoring Proble 02/03/2023 Problem Noted Date Diagnosed Date High Risk Chronic Disease Home Monitoring Proble 02/03/2023 Problem Noted Date Diagnosed Date High Risk Chronic Disease Home Monitoring Proble 02/03/2023 Problem Noted Date Diagnosed Date High Risk Chronic Disease Home Monitoring Proble 02/03/2023 Problem Noted Date Diagnosed Date High Risk Chronic Disease Home Monitoring Proble 02/03/2023 Problem Noted Date Diagnosed Date High Risk Chronic Disease Home Monitoring Proble 02/03/2023 Problem Noted Date Diagnosed Date High Risk Chronic Disease Home Monitoring Proble 02/03/2023 Problem Noted Date Diagnosed Date High Risk Chronic Disease Home Monitoring Proble 02/03/2023 Problem Noted Date Diagnosed Date High Risk Chronic Disease Home Monitoring Proble 02/03/2023 Problem Noted Date Diagnosed Date High Risk Chronic Disease Home Monitoring Proble 02/03/2023 Problem Noted Date Diagnosed Date High Risk Chronic Disease Home Monitoring Proble 02/03/2023 Active Problems Noted Date Diagnosed Date High Risk Chronic Disease Home Monitoring Proble 02/03/2023 Active Problems Noted Date Diagnosed Date High Risk Chronic Disease Home Monitoring Proble 02/03/2023 Active Problems Noted Date Diagnosed Date High Risk Chronic Disease Home Monitoring [facility] 02/03/2023 Active Problems Noted Date Diagnosed Date High Risk Chronic Disease Home Monitoring Proble 02/03/2023 Active Problems Noted Date Diagnosed Date High Risk Chronic Disease Home Monitoring [facility] 02/03/2023 Active Problems Noted Date Diagnosed Date High Risk Chronic Disease Home Monitoring [facility] 02/03/2023 Problem Noted Date Diagnosed Date High Risk Chronic Disease Home Monitoring [facility] 02/03/2023 Additional Source Comments INFORMATION SOURCE (unrecogn ized section and content) DATE CREATED AUTHOR 05/15/2018 [facility] DATE CREATED AUTHOR AUTHOR'S ORGANIZ ATION 07/05/2021 [facility] DATE CREATED AUTHOR AUTHOR'S ORGANIZ ATION 07/11/2022 [facility] DATE CREATED AUTHOR AUTHOR'S ORGANIZ ATION 08/18/2022 [facility] DATE CREATED AUTHOR AUTHOR'S ORGANIZ ATION 08/19/2022 [facility] DATE CREATED AUTHOR AUTHOR'S ORGANIZ ATION 10/23/2024 [facility] DATE CREATED AUTHOR AUTHOR'S ORGANIZ ATION 05/25/2025 [facility] Reason for Visit (unrecogniz ed section and content) Reason Comments Nausea Diarrhea Emesis Reason Comments Electronic Communication aptiva rx albut valentine Reason Onset Date Comments Refill Request 12/23/2021 Reason Comments Port Flush Reason Comments Home Health Request Reason Comments Home Health Point of Care Results Reason Comments Lab Orders hospital follow up A Reason Comments Patient Request [facility] Reason Comments Blood Draw (CVAD) Reason Comments Results, Lab Reason Comments OT plan of care Reason Comments Established Patient Reason Comments Follow Up Reason Comments Orders Reason Comments Appointment Reason Comments Nutrition Assessment Reason Comments Nutrition Counseling Reason Comments Missed Visit Reason Comments Patient Update Reason Comments Questions Reason Comments Results Reason Comments D/C from [facility] Reason Comments 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 + punctal plugs OU . Eye Pain Both Eyes eyeballs feel bruis ed sometimes per pt: only when she rubs them Foreign Body Sensation eyes feel gritty, intermittently. Eye Crusting Both Eyes intermittently Pseudophakia OU Decreased Vision Both Eyes harder to tra nsition from reading to TV Refraction pt request Reason Comments Medication Problem Reason Comments Medication Question Reason Comments Vaginal Problem Reason Comments Patient Question Reason Comments Abdominal Pain Back Pain Reason Comments VBC My Chart Follow-up Reason Comments Leukemia Lab work drawn today Reason Comments Results Echocardiogram darrick l Reason Comments Spirometry Specialty Diagnoses / Procedures Referred By Contac t [facility] Diagnoses Bronchiectasis without acute exacerbation (HCC) Procedures SPIROMETRY BASELINE ONLY SPMTRY W/VC EXPIRATORY MERY W/WO MXML VOL VNTJ Delroy De La Rosa MD [address] [place] [address] [facility] [address] [place] [id number] Referral ID Status Reason Start Date Expiration Date V isits Requested Visits Authorized [id number] Closed Auto-Generate d Referral 06/04/2022 01/01/2023 1 1 Reason Comments Established Patient Bronchiectasis Reason Comments Follow Up Manager Retail Sales recomme ndations Reason Comments Pain (foot) Reason Onset Date Comments Refill Request 07/25/2022 Reason Onset Date Comments Refill Request 07/26/2022 albuterol neb so l Reason Onset Date Comments ACM Nurse 07/27/2022 ED Utilization r eview per request of payer. Reason Onset Date Comments Transition Of Care 08/25/2022 Reason Comments Medication Problem Still taking Eliquis ? Reason Comments schedule peer to peer for ostomy supplie s overage denied Reason Comments Handicap Placard Reason Comments Established Patient 6 month follow up Reason Comments Opened In Error Reason Comments Blurred Vision Both Eyes <OS Reason Onset Date Comments HHC PT 06/10/2022 Reason Comments Social Work Services Reason Comments Research Consent [id number] Reason Onset Date Comments Population Health Navigation Outreach 03/08/2023 [employer] Care Gaps 5.30.23 Reason Comments Follow Up TACHYCARDIA Reason Onset Date Comments Refill Request 03/22/2023 Reason Onset Date Comments Refill Request 03/26/2023 Reason Onset Date Comments Transition Of Care 03/29/2023 Hospital Disc harge 03/26/2023 Reason Comments Established Patient 6 nmonth follow up b ronchiectasis Reason Comments AVS 09/02 Reason Comments Refill Request CHANGE OF PHARMACY, SHORT TERM WHILE IN [facility] Reason Onset Date Comments CDM 11/02/2023 Engagement Reason Onset Date Comments Population Health Navigation Outreach 11/12/2023 [employer] HCCs 2.16.24 Reason Comments Patient Question Folic Acid Reason Onset Date Comments Refill Request 11/30/2023 Reason Comments Follow Up Reason Comments Follow Up Reason Comments port flush Reason Comments Establish Care Right breast a white pimple per patient, not sure how long has had it, does not hurt. 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) Procedures LUNG VOLUMES Chrissy Moser MD [address] [place] [address] [facility] [place] [address] [place], [place] [id number] Referral ID Status Reason Start Date Expiration Date V isits Requested Visits Authorized [id number] Closed Auto-Generate d Referral 12/20/2023 01/18/2025 1 1 Specialty Diagnoses / Procedures Referred By Alcira herrera Referred [facility] 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) Procedures LUNG DIFFUSION CAPACITY (DLCO) DIFFUSING CAPACITY Chrissy Moser MD [address] [place] [address] [place] [address] Referral ID Status Reason Start Date Expiration Date V isits Requested Visits Authorized [id number] Closed Auto-Generate d Referral 12/20/2023 01/18/2025 1 1 Specialty Diagnoses / Procedures Referred By Alcira herrera Ref[facility] 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) Procedures SPIROMETRY WITH DILATOR IF OBSTRUCTED BRNCDILAT RSPSE SPMTRY PRE&POST-BRNCDILAT ADMN Chrissy Moser MD [address] [place] [address] [facility] [address] [place] [address] Referral ID Status Reason Start Date Expiration Date V isits Requested Visits Authorized [id number] Closed Auto-Generate d Referral 12/20/2023 01/18/2025 1 1 Reason Onset Date Comments Population Health Navigation Outreach 07/26/2024 Melissa Burton [place] Reason Comments Vaginal Problem Reason Comments 6 Month Exam Reason Comments Ostomy supply order fax Reason Onset Date Comments Community Monitoring Outreach 08/18/2024 Fo llow up Reason Onset Date Comments Refill Request 08/23/2024 Reason Comments F/U 6 Month Reason Comments Medication Request Reason Onset Date Comments Do Not Send Eliquis to [employer] 10/12/2024 Reason Comments Leg Injury right reina pain afte r falling against step x 3 days Reason Onset Date Comments Refill Request 12/10/2024 Reason Comments Follow Up For 9 mo: 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 Pt states main symptom is dryness, which is much worse after extended reading at night. Vision gets more blurry when very dry, especially in the mornings, and has learned when to instill Xiidra and increase fluid intake Reason Comments Established Patient 6 month follow up br onchiectasis Reason Onset Date Comments Refill Request 02/26/2025 Reason Onset Date Comments Refill Request 02/25/2025 Reason Comments Established Patient Reason Comments Consult Rectal Bleeding/Mucu s Reason Comments 6 Month Exam Body aches Reason Onset Date Comments [facility] Navigation Outreach 05/07/2025 Aemaynor Torres [place] Reason Onset Date Comments [facility] Navigation Outreach 06/06/2025 Aemaynor Torres [place] ED Notes - Carisa Colbert RN - 09/17/2018 12:10 PM MICHAEL Provider Notes - Larry Small DO - 09/17/2018 11:06 AM ESTED Triage Notes - Carisa Colbert RN - 09/17/2018 10:57 AM EST Miscellaneous Notes (unrecog nized section and content) Given juice water and crackers Formatting of this note may be different from the original. PCP - Lidia Lopez MD [phone] Chief Complaint Patient presents with Nausea Diarrhea Emesis HPI Dictation on: 09/17/2018 11:07 AM by: LARRY SMALL [[id number]] Review of Systems Constitutional: no diaphoresis Skin: no rash Eyes: no discharge ENMT: No drooling Genitourinary: no dysuria Endocrine: no polyuria Neurologic: No facial droop Psychiatric: no self injury Hematologic/Lymphatic: No abnormal bruising Allergic/Immunologic: no urticaria Other pertinent positives and negatives in HPI Past Medical History Past Medical History: Diagnosis Date Cancer (HCC) Coronary artery disease Deep vein thrombosis (HCC) Disease of thyroid gland Hyperlipidemia Hypertension Renal disorder Past Surgical History Past Surgical History: Procedure Laterality Date ABDOMINAL SURGERY CARDIAC CATHETERIZATION CHOLECYSTECTOMY COLON SURGERY Social History Social History Social History Marital status: Spouse name: N/A Number of children: N/A Years of education: N/A Occupational History Not on file. Social History Main Topics Smoking status: Passive Smoke Exposure - Never Smoker Smokeless tobacco: Never Used Alcohol use No Drug use: No Sexual activity: Not on file Other Topics Concern Not on file Social History Narrative No narrative on file Family history History reviewed. No pertinent family history. Physical Exam Initial Vital Signs BP 108/74 (BP Location: Right arm, Patient Position: Lying) Pulse (!) 117 Temp 97.9 F (36.6 C) (Oral) Resp (!) 20 Ht 4' 10 Wt 59 kg (130 lb) SpO2 99% BMI 27.17 kg/m Vital Signs During ED Visit (as charted by nursing) Patient Vitals for the past 24 hrs: BP Temp Temp src Pulse Resp SpO2 Height Weight 09/17/18 1055 108/74 97.9 F (36.6 C) Oral (!) 117 (!) 20 99 % 4' 10 59 kg (130 lb) Nursing notes reviewed General: A and O x 3, no distress, non-toxic Psych: normal mood and affect Skin: clear without eruption Hent: atraumatic, normal cephalic, nasal mucosa clear, oropharyx dry mucous membranes Eyes: pupils equal and reactive to light, extraocular muscles intact Neck: supple without JVD or carotid bruit Heart: Regular rate and rhythm Lungs: clear to auscultation Abd: soft, nondistended, nontender, Positive bowel sounds Ext: without clubbing, cyanosis or edema, cap refill less than 2 seconds Neuro: no focal deficits with cn 2-12 intact, strength 5+ U/LE, normal patellar reflexes, no saddle anesthesia Musculoskeletal: no joint ttp, redness, warmth or swelling : deffered at this time Procedures EKG: Interpreted by myself without formal cardiology interpretation NSR with rate of 94bpm LAD, RBBB. No clinically significant change from previous No acute ischemic changes without ST elevation or depression MDM Laboratory Results Labs Reviewed POC CBC AND DIFFERENTIAL - Abnormal; Notable for the following: Result Value WBC 14.44 (*) RBC 3.17 (*) Hemoglobin 10.7 (*) Hematocrit 29.6 (*) RDW - CV 15.3 (*) Neutrophils Abs 9.60 (*) Monocytes Abs 1.08 (*) All other components within normal limits POC VBG (EPOC) WITH FULL PANEL - RALS - Abnormal; Notable for the following: pH, Venous 7.44 (*) pCO2, Gomez 33.1 (*) HCO3, Gomez 22.5 (*) Glucose 101 (*) Potassium 3.1 (*) All other components within normal limits Narrative: The eGFR should be used for monitoring renal function only and not for medication dosing. POC LIVER PANEL PLUS RALS - Abnormal; Notable for the following: Total Protein 5.7 (*) GGT 132 (*) All other components within normal limits POC URINALYSIS DIPSTICK,AUTO - RALS - Abnormal; Notable for the following: Spec Grav, UA 1.030 (*) Protein, UA 30 (*) Ketones, UA Trace (*) Bilirubin, UA Small (*) Leukocyte Esterase, UA Small (*) All other components within normal limits POC VBG (EPOC) WITH FULL PANEL POC LIVER PANEL PLUS POC URINALYSIS DIPSTICK,AUTO Imaging Results No orders to display Dictation on: 09/17/2018 12:39 PM by: LARRY SMALL [[id number]] I gave the patient my usual discharge instructions . . . end Larry Small, 09/17/18 1239 D/c from [facility] on 09/14/18 and last started having diarrhea, nause and vomiting. Has only been doing clear liquids.in this encounter Source Comments (unrecognize d section and content) In the event this informatio n is protected by the Federal Confidentiality of Alcohol and Drug Abuse Patient Records regulations: The Federal rules restrict any use of the information to criminally investigate or prosecute any alcohol or drug abuse patient.[facility] the event this information is protected by the Federal Confidentiality of Alcohol and Drug Abuse Patient Records regulations: The Federal rules restrict any use of the information to criminally investigate or prosecute any alcohol or drug abuse patient.[facility] CenterIn the event this information is protected by the Federal Confidentiality of Alcohol and Drug Abuse Patient Records regulations: The Federal rules restrict any use of the information to criminally investigate or prosecute any alcohol or drug abuse patient.[facility] CenterIn the event this information is protected by the Federal Confidentiality of Alcohol and Drug Abuse Patient Records regulations: The Federal rules restrict any use of the information to criminally investigate or prosecute any alcohol or drug abuse patient.[facility] CenterIn the event this information is protected by the Federal Confidentiality of Alcohol and Drug Abuse Patient Records regulations: The Federal rules restrict any use of the information to criminally investigate or prosecute any alcohol or drug abuse patient.[facility] CenterIn the event this information is protected by the Federal Confidentiality of Alcohol and Drug Abuse Patient Records regulations: The Federal rules restrict any use of the information to criminally investigate or prosecute any alcohol or drug abuse patient.[facility] CenterIn the event this information is protected by the Federal Confidentiality of Alcohol and Drug Abuse Patient Records regulations: The Federal rules restrict any use of the information to criminally investigate or prosecute any alcohol or drug abuse patient.[facility] CenterIn the event this information is protected by the Federal Confidentiality of Alcohol and Drug Abuse Patient Records regulations: The Federal rules restrict any use of the information to criminally investigate or prosecute any alcohol or drug abuse patient.[facility] CenterIn the event this information is protected by the Federal Confidentiality of Alcohol and Drug Abuse Patient Records regulations: The Federal rules restrict any use of the information to criminally investigate or prosecute any alcohol or drug abuse patient.[facility] CenterIn the event this information is protected by the Federal Confidentiality of Alcohol and Drug Abuse Patient Records regulations: The Federal rules restrict any use of the information to criminally investigate or prosecute any alcohol or drug abuse patient.[facility] CenterIn the event this information is protected by the Federal Confidentiality of Alcohol and Drug Abuse Patient Records regulations: The Federal rules restrict any use of the information to criminally investigate or prosecute any alcohol or drug abuse patient.[facility] CenterIn the event this information is protected by the Federal Confidentiality of Alcohol and Drug Abuse Patient Records regulations: The Federal rules restrict any use of the information to criminally investigate or prosecute any alcohol or drug abuse patient.[facility] CenterIn the event this information is protected by the Federal Confidentiality of Alcohol and Drug Abuse Patient Records regulations: The Federal rules restrict any use of the information to criminally investigate or prosecute any alcohol or drug abuse patient.[facility] CenterIn the event this information is protected by the Federal Confidentiality of Alcohol and Drug Abuse Patient Records regulations: The Federal rules restrict any use of the information to criminally investigate or prosecute any alcohol or drug abuse patient.[facility] CenterIn the event this information is protected by the Federal Confidentiality of Alcohol and Drug Abuse Patient Records regulations: The Federal rules restrict any use of the information to criminally investigate or prosecute any alcohol or drug abuse patient.[facility] CenterIn the event this information is protected by the Federal Confidentiality of Alcohol and Drug Abuse Patient Records regulations: The Federal rules restrict any use of the information to criminally investigate or prosecute any alcohol or drug abuse patient.[facility] CenterIn the event this information is protected by the Federal Confidentiality of Alcohol and Drug Abuse Patient Records regulations: The Federal rules restrict any use of the information to criminally investigate or prosecute any alcohol or drug abuse patient.[facility] CenterIn the event this information is protected by the Federal Confidentiality of Alcohol and Drug Abuse Patient Records regulations: The Federal rules restrict any use of the information to criminally investigate or prosecute any alcohol or drug abuse patient.[facility] CenterIn the event this information is protected by the Federal Confidentiality of Alcohol and Drug Abuse Patient Records regulations: The Federal rules restrict any use of the information to criminally investigate or prosecute any alcohol or drug abuse patient.[facility] CenterIn the event this information is protected by the Federal Confidentiality of Alcohol and Drug Abuse Patient Records regulations: The Federal rules restrict any use of the information to criminally investigate or prosecute any alcohol or drug abuse patient.[facility] CenterIn the event this information is protected by the Federal Confidentiality of Alcohol and Drug Abuse Patient Records regulations: The Federal rules restrict any use of the information to criminally investigate or prosecute any alcohol or drug abuse patient.[facility] CenterIn the event this information is protected by the Federal Confidentiality of Alcohol and Drug Abuse Patient Records regulations: The Federal rules restrict any use of the information to criminally investigate or prosecute any alcohol or drug abuse patient.[facility] CenterIn the event this information is protected by the Federal Confidentiality of Alcohol and Drug Abuse Patient Records regulations: The Federal rules restrict any use of the information to criminally investigate or prosecute any alcohol or drug abuse patient.[facility] CenterIn the event this information is protected by the Federal Confidentiality of Alcohol and Drug Abuse Patient Records regulations: The Federal rules restrict any use of the information to criminally investigate or prosecute any alcohol or drug abuse patient.[facility] CenterIn the event this information is protected by the Federal Confidentiality of Alcohol and Drug Abuse Patient Records regulations: The Federal rules restrict any use of the information to criminally investigate or prosecute any alcohol or drug abuse patient.[facility] CenterIn the event this information is protected by the Federal Confidentiality of Alcohol and Drug Abuse Patient Records regulations: The Federal rules restrict any use of the information to criminally investigate or prosecute any alcohol or drug abuse patient.[facility] CenterIn the event this information is protected by the Federal Confidentiality of Alcohol and Drug Abuse Patient Records regulations: The Federal rules restrict any use of the information to criminally investigate or prosecute any alcohol or drug abuse patient.[facility] CenterIn the event this information is protected by the Federal Confidentiality of Alcohol and Drug Abuse Patient Records regulations: The Federal rules restrict any use of the information to criminally investigate or prosecute any alcohol or drug abuse patient.[facility] CenterIn the event this information is protected by the Federal Confidentiality of Alcohol and Drug Abuse Patient Records regulations: The Federal rules restrict any use of the information to criminally investigate or prosecute any alcohol or drug abuse patient.[facility] CenterIn the event this information is protected by the Federal Confidentiality of Alcohol and Drug Abuse Patient Records regulations: The Federal rules restrict any use of the information to criminally investigate or prosecute any alcohol or drug abuse patient.[facility] CenterIn the event this information is protected by the Federal Confidentiality of Alcohol and Drug Abuse Patient Records regulations: The Federal rules restrict any use of the information to criminally investigate or prosecute any alcohol or drug abuse patient.[facility] CenterIn the event this information is protected by the Federal Confidentiality of Alcohol and Drug Abuse Patient Records regulations: The Federal rules restrict any use of the information to criminally investigate or prosecute any alcohol or drug abuse patient.[facility] CenterIn the event this information is protected by the Federal Confidentiality of Alcohol and Drug Abuse Patient Records regulations: The Federal rules restrict any use of the information to criminally investigate or prosecute any alcohol or drug abuse patient.[facility] CenterIn the event this information is protected by the Federal Confidentiality of Alcohol and Drug Abuse Patient Records regulations: The Federal rules restrict any use of the information to criminally investigate or prosecute any alcohol or drug abuse patient.[facility] CenterIn the event this information is protected by the Federal Confidentiality of Alcohol and Drug Abuse Patient Records regulations: The Federal rules restrict any use of the information to criminally investigate or prosecute any alcohol or drug abuse patient.[facility] CenterIn the event this information is protected by the Federal Confidentiality of Alcohol and Drug Abuse Patient Records regulations: The Federal rules restrict any use of the information to criminally investigate or prosecute any alcohol or drug abuse patient.[facility] CenterIn the event this information is protected by the Federal Confidentiality of Alcohol and Drug Abuse Patient Records regulations: The Federal rules restrict any use of the information to criminally investigate or prosecute any alcohol or drug abuse patient.[facility] CenterIn the event this information is protected by the Federal Confidentiality of Alcohol and Drug Abuse Patient Records regulations: The Federal rules restrict any use of the information to criminally investigate or prosecute any alcohol or drug abuse patient.[facility] CenterIn the event this information is protected by the Federal Confidentiality of Alcohol and Drug Abuse Patient Records regulations: The Federal rules restrict any use of the information to criminally investigate or prosecute any alcohol or drug abuse patient.[facility] CenterIn the event this information is protected by the Federal Confidentiality of Alcohol and Drug Abuse Patient Records regulations: The Federal rules restrict any use of the information to criminally investigate or prosecute any alcohol or drug abuse patient.[facility] CenterIn the event this information is protected by the Federal Confidentiality of Alcohol and Drug Abuse Patient Records regulations: The Federal rules restrict any use of the information to criminally investigate or prosecute any alcohol or drug abuse patient.[facility] CenterIn the event this information is protected by the Federal Confidentiality of Alcohol and Drug Abuse Patient Records regulations: The Federal rules restrict any use of the information to criminally investigate or prosecute any alcohol or drug abuse patient.[facility] CenterIn the event this information is protected by the Federal Confidentiality of Alcohol and Drug Abuse Patient Records regulations: The Federal rules restrict any use of the information to criminally investigate or prosecute any alcohol or drug abuse patient.[facility] CenterIn the event this information is protected by the Federal Confidentiality of Alcohol and Drug Abuse Patient Records regulations: The Federal rules restrict any use of the information to criminally investigate or prosecute any alcohol or drug abuse patient.[facility] CenterIn the event this information is protected by the Federal Confidentiality of Alcohol and Drug Abuse Patient Records regulations: The Federal rules restrict any use of the information to criminally investigate or prosecute any alcohol or drug abuse patient.[facility] CenterIn the event this information is protected by the Federal Confidentiality of Alcohol and Drug Abuse Patient Records regulations: The Federal rules restrict any use of the information to criminally investigate or prosecute any alcohol or drug abuse patient.[facility] CenterIn the event this information is protected by the Federal Confidentiality of Alcohol and Drug Abuse Patient Records regulations: The Federal rules restrict any use of the information to criminally investigate or prosecute any alcohol or drug abuse patient.[facility] CenterIn the event this information is protected by the Federal Confidentiality of Alcohol and Drug Abuse Patient Records regulations: The Federal rules restrict any use of the information to criminally investigate or prosecute any alcohol or drug abuse patient.[facility] CenterIn the event this information is protected by the Federal Confidentiality of Alcohol and Drug Abuse Patient Records regulations: The Federal rules restrict any use of the information to criminally investigate or prosecute any alcohol or drug abuse patient.[facility] CenterIn the event this information is protected by the Federal Confidentiality of Alcohol and Drug Abuse Patient Records regulations: The Federal rules restrict any use of the information to criminally investigate or prosecute any alcohol or drug abuse patient.[facility] CenterIn the event this information is protected by the Federal Confidentiality of Alcohol and Drug Abuse Patient Records regulations: The Federal rules restrict any use of the information to criminally investigate or prosecute any alcohol or drug abuse patient.[facility] CenterIn the event this information is protected by the Federal Confidentiality of Alcohol and Drug Abuse Patient Records regulations: The Federal rules restrict any use of the information to criminally investigate or prosecute any alcohol or drug abuse patient.[facility] CenterIn the event this information is protected by the Federal Confidentiality of Alcohol and Drug Abuse Patient Records regulations: The Federal rules restrict any use of the information to criminally investigate or prosecute any alcohol or drug abuse patient.[facility] CenterIn the event this information is protected by the Federal Confidentiality of Alcohol and Drug Abuse Patient Records regulations: The Federal rules restrict any use of the information to criminally investigate or prosecute any alcohol or drug abuse patient.[facility] CenterIn the event this information is protected by the Federal Confidentiality of Alcohol and Drug Abuse Patient Records regulations: The Federal rules restrict any use of the information to criminally investigate or prosecute any alcohol or drug abuse patient.[facility] CenterIn the event this information is protected by the Federal Confidentiality of Alcohol and Drug Abuse Patient Records regulations: The Federal rules restrict any use of the information to criminally investigate or prosecute any alcohol or drug abuse patient.[facility] CenterIn the event this information is protected by the Federal Confidentiality of Alcohol and Drug Abuse Patient Records regulations: The Federal rules restrict any use of the information to criminally investigate or prosecute any alcohol or drug abuse patient.[facility] CenterIn the event this information is protected by the Federal Confidentiality of Alcohol and Drug Abuse Patient Records regulations: The Federal rules restrict any use of the information to criminally investigate or prosecute any alcohol or drug abuse patient.[facility] CenterIn the event this information is protected by the Federal Confidentiality of Alcohol and Drug Abuse Patient Records regulations: The Federal rules restrict any use of the information to criminally investigate or prosecute any alcohol or drug abuse patient.[facility] CenterIn the event this information is protected by the Federal Confidentiality of Alcohol and Drug Abuse Patient Records regulations: The Federal rules restrict any use of the information to criminally investigate or prosecute any alcohol or drug abuse patient.[facility] CenterIn the event this information is protected by the Federal Confidentiality of Alcohol and Drug Abuse Patient Records regulations: The Federal rules restrict any use of the information to criminally investigate or prosecute any alcohol or drug abuse patient.[facility] CenterIn the event this information is protected by the Federal Confidentiality of Alcohol and Drug Abuse Patient Records regulations: The Federal rules restrict any use of the information to criminally investigate or prosecute any alcohol or drug abuse patient.[facility] CenterIn the event this information is protected by the Federal Confidentiality of Alcohol and Drug Abuse Patient Records regulations: The Federal rules restrict any use of the information to criminally investigate or prosecute any alcohol or drug abuse patient.[facility] CenterIn the event this information is protected by the Federal Confidentiality of Alcohol and Drug Abuse Patient Records regulations: The Federal rules restrict any use of the information to criminally investigate or prosecute any alcohol or drug abuse patient.[facility] CenterIn the event this information is protected by the Federal Confidentiality of Alcohol and Drug Abuse Patient Records regulations: The Federal rules restrict any use of the information to criminally investigate or prosecute any alcohol or drug abuse patient.[facility] CenterIn the event this information is protected by the Federal Confidentiality of Alcohol and Drug Abuse Patient Records regulations: The Federal rules restrict any use of the information to criminally investigate or prosecute any alcohol or drug abuse patient.[facility] CenterIn the event this information is protected by the Federal Confidentiality of Alcohol and Drug Abuse Patient Records regulations: The Federal rules restrict any use of the information to criminally investigate or prosecute any alcohol or drug abuse patient.[facility] CenterIn the event this information is protected by the Federal Confidentiality of Alcohol and Drug Abuse Patient Records regulations: The Federal rules restrict any use of the information to criminally investigate or prosecute any alcohol or drug abuse patient.[facility] CenterIn the event this information is protected by the Federal Confidentiality of Alcohol and Drug Abuse Patient Records regulations: The Federal rules restrict any use of the information to criminally investigate or prosecute any alcohol or drug abuse patient.[facility] CenterIn the event this information is protected by the Federal Confidentiality of Alcohol and Drug Abuse Patient Records regulations: The Federal rules restrict any use of the information to criminally investigate or prosecute any alcohol or drug abuse patient.[facility] CenterIn the event this information is protected by the Federal Confidentiality of Alcohol and Drug Abuse Patient Records regulations: The Federal rules restrict any use of the information to criminally investigate or prosecute any alcohol or drug abuse patient.[facility]In the event this information is protected by the Federal Confidentiality of Alcohol and Drug Abuse Patient Records regulations: The Federal rules restrict any use of the information to criminally investigate or prosecute any alcohol or drug abuse patient.[facility]In the event this information is protected by the Federal Confidentiality of Alcohol and Drug Abuse Patient Records regulations: The Federal rules restrict any use of the information to criminally investigate or prosecute any alcohol or drug abuse patient.[facility]In the event this information is protected by the Federal Confidentiality of Alcohol and Drug Abuse Patient Records regulations: The Federal rules restrict any use of the information to criminally investigate or prosecute any alcohol or drug abuse patient.[facility]In the event this information is protected by the Federal Confidentiality of Alcohol and Drug Abuse Patient Records regulations: The Federal rules restrict any use of the information to criminally investigate or prosecute any alcohol or drug abuse patient.[facility]In the event this information is protected by the Federal Confidentiality of Alcohol and Drug Abuse Patient Records regulations: The Federal rules restrict any use of the information to criminally investigate or prosecute any alcohol or drug abuse patient.[facility]In the event this information is protected by the Federal Confidentiality of Alcohol and Drug Abuse Patient Records regulations: The Federal rules restrict any use of the information to criminally investigate or prosecute any alcohol or drug abuse patient.[facility]In the event this information is protected by the Federal Confidentiality of Alcohol and Drug Abuse Patient Records regulations: The Federal rules restrict any use of the information to criminally investigate or prosecute any alcohol or drug abuse patient.[facility]In the event this information is protected by the Federal Confidentiality of Alcohol and Drug Abuse Patient Records regulations: The Federal rules restrict any use of the information to criminally investigate or prosecute any alcohol or drug abuse patient.[facility]In the event this information is protected by the Federal Confidentiality of Alcohol and Drug Abuse Patient Records regulations: The Federal rules restrict any use of the information to criminally investigate or prosecute any alcohol or drug abuse patient.[facility]In the event this information is protected by the Federal Confidentiality of Alcohol and Drug Abuse Patient Records regulations: The Federal rules restrict any use of the information to criminally investigate or prosecute any alcohol or drug abuse patient.[facility]In the event this information is protected by the Federal Confidentiality of Alcohol and Drug Abuse Patient Records regulations: The Federal rules restrict any use of the information to criminally investigate or prosecute any alcohol or drug abuse patient.[facility]In the event this information is protected by the Federal Confidentiality of Alcohol and Drug Abuse Patient Records regulations: The Federal rules restrict any use of the information to criminally investigate or prosecute any alcohol or drug abuse patient.[facility]In the event this information is protected by the Federal Confidentiality of Alcohol and Drug Abuse Patient Records regulations: The Federal rules restrict any use of the information to criminally investigate or prosecute any alcohol or drug abuse patient.[facility]In the event this information is protected by the Federal Confidentiality of Alcohol and Drug Abuse Patient Records regulations: The Federal rules restrict any use of the information to criminally investigate or prosecute any alcohol or drug abuse patient.[facility] CenterIn the event this information is protected by the Federal Confidentiality of Alcohol and Drug Abuse Patient Records regulations: The Federal rules restrict any use of the information to criminally investigate or prosecute any alcohol or drug abuse patient.[facility]In the event this information is protected by the Federal Confidentiality of Alcohol and Drug Abuse Patient Records regulations: The Federal rules restrict any use of the information to criminally investigate or prosecute any alcohol or drug abuse patient.[facility] CenterIn the event this information is protected by the Federal Confidentiality of Alcohol and Drug Abuse Patient Records regulations: The Federal rules restrict any use of the information to criminally investigate or prosecute any alcohol or drug abuse patient.[facility] CenterIn the event this information is protected by the Federal Confidentiality of Alcohol and Drug Abuse Patient Records regulations: The Federal rules restrict any use of the information to criminally investigate or prosecute any alcohol or drug abuse patient.[facility] CenterIn the event this information is protected by the Federal Confidentiality of Alcohol and Drug Abuse Patient Records regulations: The Federal rules restrict any use of the information to criminally investigate or prosecute any alcohol or drug abuse patient.[facility]In the event this information is protected by the Federal Confidentiality of Alcohol and Drug Abuse Patient Records regulations: The Federal rules restrict any use of the information to criminally investigate or prosecute any alcohol or drug abuse patient.[facility]In the event this information is protected by the Federal Confidentiality of Alcohol and Drug Abuse Patient Records regulations: The Federal rules restrict any use of the information to criminally investigate or prosecute any alcohol or drug abuse patient.[facility]In the event this information is protected by the Federal Confidentiality of Alcohol and Drug Abuse Patient Records regulations: The Federal rules restrict any use of the information to criminally investigate or prosecute any alcohol or drug abuse patient.[facility]In the event this information is protected by the Federal Confidentiality of Alcohol and Drug Abuse Patient Records regulations: The Federal rules restrict any use of the information to criminally investigate or prosecute any alcohol or drug abuse patient.[facility] CenterIn the event this information is protected by the Federal Confidentiality of Alcohol and Drug Abuse Patient Records regulations: The Federal rules restrict any use of the information to criminally investigate or prosecute any alcohol or drug abuse patient.[facility]In the event this information is protected by the Federal Confidentiality of Alcohol and Drug Abuse Patient Records regulations: The Federal rules restrict any use of the information to criminally investigate or prosecute any alcohol or drug abuse patient.[facility]In the event this information is protected by the Federal Confidentiality of Alcohol and Drug Abuse Patient Records regulations: The Federal rules restrict any use of the information to criminally investigate or prosecute any alcohol or drug abuse patient.[facility] CenterIn the event this information is protected by the Federal Confidentiality of Alcohol and Drug Abuse Patient Records regulations: The Federal rules restrict any use of the information to criminally investigate or prosecute any alcohol or drug abuse patient.[facility] CenterIn the event this information is protected by the Federal Confidentiality of Alcohol and Drug Abuse Patient Records regulations: The Federal rules restrict any use of the information to criminally investigate or prosecute any alcohol or drug abuse patient.[facility] CenterIn the event this information is protected by the Federal Confidentiality of Alcohol and Drug Abuse Patient Records regulations: The Federal rules restrict any use of the information to criminally investigate or prosecute any alcohol or drug abuse patient.[facility] CenterIn the event this information is protected by the Federal Confidentiality of Alcohol and Drug Abuse Patient Records regulations: The Federal rules restrict any use of the information to criminally investigate or prosecute any alcohol or drug abuse patient.[facility] CenterIn the event this information is protected by the Federal Confidentiality of Alcohol and Drug Abuse Patient Records regulations: The Federal rules restrict any use of the information to criminally investigate or prosecute any alcohol or drug abuse patient.[facility] CenterIn the event this information is protected by the Federal Confidentiality of Alcohol and Drug Abuse Patient Records regulations: The Federal rules restrict any use of the information to criminally investigate or prosecute any alcohol or drug abuse patient.[facility] CenterIn the event this information is protected by the Federal Confidentiality of Alcohol and Drug Abuse Patient Records regulations: The Federal rules restrict any use of the information to criminally investigate or prosecute any alcohol or drug abuse patient.[facility] CenterIn the event this information is protected by the Federal Confidentiality of Alcohol and Drug Abuse Patient Records regulations: The Federal rules restrict any use of the information to criminally investigate or prosecute any alcohol or drug abuse patient.[facility] CenterIn the event this information is protected by the Federal Confidentiality of Alcohol and Drug Abuse Patient Records regulations: The Federal rules restrict any use of the information to criminally investigate or prosecute any alcohol or drug abuse patient.[facility] CenterIn the event this information is protected by the Federal Confidentiality of Alcohol and Drug Abuse Patient Records regulations: The Federal rules restrict any use of the information to criminally investigate or prosecute any alcohol or drug abuse patient.[facility] CenterIn the event this information is protected by the Federal Confidentiality of Alcohol and Drug Abuse Patient Records regulations: The Federal rules restrict any use of the information to criminally investigate or prosecute any alcohol or drug abuse patient.[facility] CenterIn the event this information is protected by the Federal Confidentiality of Alcohol and Drug Abuse Patient Records regulations: The Federal rules restrict any use of the information to criminally investigate or prosecute any alcohol or drug abuse patient.[facility] the event this information is protected by the Federal Confidentiality of Alcohol and Drug Abuse Patient Records regulations: The Federal rules restrict any use of the information to criminally investigate or prosecute any alcohol or drug abuse patient.[facility]In the event this information is protected by the Federal Confidentiality of Alcohol and Drug Abuse Patient Records regulations: The Federal rules restrict any use of the information to criminally investigate or prosecute any alcohol or drug abuse patient.[facility] CenterIn the event this information is protected by the Federal Confidentiality of Alcohol and Drug Abuse Patient Records regulations: The Federal rules restrict any use of the information to criminally investigate or prosecute any alcohol or drug abuse patient.[facility] CenterIn the event this information is protected by the Federal Confidentiality of Alcohol and Drug Abuse Patient Records regulations: The Federal rules restrict any use of the information to criminally investigate or prosecute any alcohol or drug abuse patient.[facility] CenterIn the event this information is protected by the Federal Confidentiality of Alcohol and Drug Abuse Patient Records regulations: The Federal rules restrict any use of the information to criminally investigate or prosecute any alcohol or drug abuse patient.[facility] CenterIn the event this information is protected by the Federal Confidentiality of Alcohol and Drug Abuse Patient Records regulations: The Federal rules restrict any use of the information to criminally investigate or prosecute any alcohol or drug abuse patient.[facility] CenterIn the event this information is protected by the Federal Confidentiality of Alcohol and Drug Abuse Patient Records regulations: The Federal rules restrict any use of the information to criminally investigate or prosecute any alcohol or drug abuse patient.[facility] CenterIn the event this information is protected by the Federal Confidentiality of Alcohol and Drug Abuse Patient Records regulations: The Federal rules restrict any use of the information to criminally investigate or prosecute any alcohol or drug abuse patient.[facility] CenterIn the event this information is protected by the Federal Confidentiality of Alcohol and Drug Abuse Patient Records regulations: The Federal rules restrict any use of the information to criminally investigate or prosecute any alcohol or drug abuse patient.[facility] CenterIn the event this information is protected by the Federal Confidentiality of Alcohol and Drug Abuse Patient Records regulations: The Federal rules restrict any use of the information to criminally investigate or prosecute any alcohol or drug abuse patient.[facility] CenterIn the event this information is protected by the Federal Confidentiality of Alcohol and Drug Abuse Patient Records regulations: The Federal rules restrict any use of the information to criminally investigate or prosecute any alcohol or drug abuse patient.[facility]In the event this information is protected by the Federal Confidentiality of Alcohol and Drug Abuse Patient Records regulations: The Federal rules restrict any use of the information to criminally investigate or prosecute any alcohol or drug abuse patient.[facility]In the event this information is protected by the Federal Confidentiality of Alcohol and Drug Abuse Patient Records regulations: The Federal rules restrict any use of the information to criminally investigate or prosecute any alcohol or drug abuse patient.[facility] CenterIn the event this information is protected by the Federal Confidentiality of Alcohol and Drug Abuse Patient Records regulations: The Federal rules restrict any use of the information to criminally investigate or prosecute any alcohol or drug abuse patient.[facility] CenterIn the event this information is protected by the Federal Confidentiality of Alcohol and Drug Abuse Patient Records regulations: The Federal rules restrict any use of the information to criminally investigate or prosecute any alcohol or drug abuse patient.[facility] CenterIn the event this information is protected by the Federal Confidentiality of Alcohol and Drug Abuse Patient Records regulations: The Federal rules restrict any use of the information to criminally investigate or prosecute any alcohol or drug abuse patient.[facility] CenterIn the event this information is protected by the Federal Confidentiality of Alcohol and Drug Abuse Patient Records regulations: The Federal rules restrict any use of the information to criminally investigate or prosecute any alcohol or drug abuse patient.[facility] CenterIn the event this information is protected by the Federal Confidentiality of Alcohol and Drug Abuse Patient Records regulations: The Federal rules restrict any use of the information to criminally investigate or prosecute any alcohol or drug abuse patient.[facility] CenterIn the event this information is protected by the Federal Confidentiality of Alcohol and Drug Abuse Patient Records regulations: The Federal rules restrict any use of the information to criminally investigate or prosecute any alcohol or drug abuse patient.[facility] CenterIn the event this information is protected by the Federal Confidentiality of Alcohol and Drug Abuse Patient Records regulations: The Federal rules restrict any use of the information to criminally investigate or prosecute any alcohol or drug abuse patient.[facility] CenterIn the event this information is protected by the Federal Confidentiality of Alcohol and Drug Abuse Patient Records regulations: The Federal rules restrict any use of the information to criminally investigate or prosecute any alcohol or drug abuse patient.[facility] CenterIn the event this information is protected by the Federal Confidentiality of Alcohol and Drug Abuse Patient Records regulations: The Federal rules restrict any use of the information to criminally investigate or prosecute any alcohol or drug abuse patient.[facility]In the event this information is protected by the Federal Confidentiality of Alcohol and Drug Abuse Patient Records regulations: The Federal rules restrict any use of the information to criminally investigate or prosecute any alcohol or drug abuse patient.[facility]In the event this information is protected by the Federal Confidentiality of Alcohol and Drug Abuse Patient Records regulations: The Federal rules restrict any use of the information to criminally investigate or prosecute any alcohol or drug abuse patient.[facility]In the event this information is protected by the Federal Confidentiality of Alcohol and Drug Abuse Patient Records regulations: The Federal rules restrict any use of the information to criminally investigate or prosecute any alcohol or drug abuse patient.[facility]In the event this information is protected by the Federal Confidentiality of Alcohol and Drug Abuse Patient Records regulations: The Federal rules restrict any use of the information to criminally investigate or prosecute any alcohol or drug abuse patient.[facility]In the event this information is protected by the Federal Confidentiality of Alcohol and Drug Abuse Patient Records regulations: The Federal rules restrict any use of the information to criminally investigate or prosecute any alcohol or drug abuse patient.[facility]In the event this information is protected by the Federal Confidentiality of Alcohol and Drug Abuse Patient Records regulations: The Federal rules restrict any use of the information to criminally investigate or prosecute any alcohol or drug abuse patient.[facility]In the event this information is protected by the Federal Confidentiality of Alcohol and Drug Abuse Patient Records regulations: The Federal rules restrict any use of the information to criminally investigate or prosecute any alcohol or drug abuse patient.[facility]In the event this information is protected by the Federal Confidentiality of Alcohol and Drug Abuse Patient Records regulations: The Federal rules restrict any use of the information to criminally investigate or prosecute any alcohol or drug abuse patient.[facility]In the event this information is protected by the Federal Confidentiality of Alcohol and Drug Abuse Patient Records regulations: The Federal rules restrict any use of the information to criminally investigate or prosecute any alcohol or drug abuse patient.[facility]In the event this information is protected by the Federal Confidentiality of Alcohol and Drug Abuse Patient Records regulations: The Federal rules restrict any use of the information to criminally investigate or prosecute any alcohol or drug abuse patient.[facility]In the event this information is protected by the Federal Confidentiality of Alcohol and Drug Abuse Patient Records regulations: The Federal rules restrict any use of the information to criminally investigate or prosecute any alcohol or drug abuse patient.[facility]In the event this information is protected by the Federal Confidentiality of Alcohol and Drug Abuse Patient Records regulations: The Federal rules restrict any use of the information to criminally investigate or prosecute any alcohol or drug abuse patient.[facility]In the event this information is protected by the Federal Confidentiality of Alcohol and Drug Abuse Patient Records regulations: The Federal rules restrict any use of the information to criminally investigate or prosecute any alcohol or drug abuse patient.[facility]In the event this information is protected by the Federal Confidentiality of Alcohol and Drug Abuse Patient Records regulations: The Federal rules restrict any use of the information to criminally investigate or prosecute any alcohol or drug abuse patient.[facility]In the event this information is protected by the Federal Confidentiality of Alcohol and Drug Abuse Patient Records regulations: The Federal rules restrict any use of the information to criminally investigate or prosecute any alcohol or drug abuse patient.[facility]In the event this information is protected by the Federal Confidentiality of Alcohol and Drug Abuse Patient Records regulations: The Federal rules restrict any use of the information to criminally investigate or prosecute any alcohol or drug abuse patient.[facility]In the event this information is protected by the Federal Confidentiality of Alcohol and Drug Abuse Patient Records regulations: The Federal rules restrict any use of the information to criminally investigate or prosecute any alcohol or drug abuse patient.[facility]In the event this information is protected by the Federal Confidentiality of Alcohol and Drug Abuse Patient Records regulations: The Federal rules restrict any use of the information to criminally investigate or prosecute any alcohol or drug abuse patient.[facility]In the event this information is protected by the Federal Confidentiality of Alcohol and Drug Abuse Patient Records regulations: The Federal rules restrict any use of the information to criminally investigate or prosecute any alcohol or drug abuse patient.[facility]In the event this information is protected by the Federal Confidentiality of Alcohol and Drug Abuse Patient Records regulations: The Federal rules restrict any use of the information to criminally investigate or prosecute any alcohol or drug abuse patient.[facility]In the event this information is protected by the Federal Confidentiality of Alcohol and Drug Abuse Patient Records regulations: The Federal rules restrict any use of the information to criminally investigate or prosecute any alcohol or drug abuse patient.[facility]In the event this information is protected by the Federal Confidentiality of Alcohol and Drug Abuse Patient Records regulations: The Federal rules restrict any use of the information to criminally investigate or prosecute any alcohol or drug abuse patient.[facility]In the event this information is protected by the Federal Confidentiality of Alcohol and Drug Abuse Patient Records regulations: The Federal rules restrict any use of the information to criminally investigate or prosecute any alcohol or drug abuse patient.[facility]In the event this information is protected by the Federal Confidentiality of Alcohol and Drug Abuse Patient Records regulations: The Federal rules restrict any use of the information to criminally investigate or prosecute any alcohol or drug abuse patient.[facility]In the event this information is protected by the Federal Confidentiality of Alcohol and Drug Abuse Patient Records regulations: The Federal rules restrict any use of the information to criminally investigate or prosecute any alcohol or drug abuse patient.[facility]In the event this information is protected by the Federal Confidentiality of Alcohol and Drug Abuse Patient Records regulations: The Federal rules restrict any use of the information to criminally investigate or prosecute any alcohol or drug abuse patient.[facility]In the event this information is protected by the Federal Confidentiality of Alcohol and Drug Abuse Patient Records regulations: The Federal rules restrict any use of the information to criminally investigate or prosecute any alcohol or drug abuse patient.[facility]In the event this information is protected by the Federal Confidentiality of Alcohol and Drug Abuse Patient Records regulations: The Federal rules restrict any use of the information to criminally investigate or prosecute any alcohol or drug abuse patient.[facility]In the event this information is protected by the Federal Confidentiality of Alcohol and Drug Abuse Patient Records regulations: The Federal rules restrict any use of the information to criminally investigate or prosecute any alcohol or drug abuse patient.[facility]In the event this information is protected by the Federal Confidentiality of Alcohol and Drug Abuse Patient Records regulations: The Federal rules restrict any use of the information to criminally investigate or prosecute any alcohol or drug abuse patient.[facility]In the event this information is protected by the Federal Confidentiality of Alcohol and Drug Abuse Patient Records regulations: The Federal rules restrict any use of the information to criminally investigate or prosecute any alcohol or drug abuse patient.[facility]In the event this information is protected by the Federal Confidentiality of Alcohol and Drug Abuse Patient Records regulations: The Federal rules restrict any use of the information to criminally investigate or prosecute any alcohol or drug abuse patient.[facility]In the event this information is protected by the Federal Confidentiality of Alcohol and Drug Abuse Patient Records regulations: The Federal rules restrict any use of the information to criminally investigate or prosecute any alcohol or drug abuse patient.[facility]In the event this information is protected by the Federal Confidentiality of Alcohol and Drug Abuse Patient Records regulations: The Federal rules restrict any use of the information to criminally investigate or prosecute any alcohol or drug abuse patient.[facility]In the event this information is protected by the Federal Confidentiality of Alcohol and Drug Abuse Patient Records regulations: The Federal rules restrict any use of the information to criminally investigate or prosecute any alcohol or drug abuse patient.[facility]In the event this information is protected by the Federal Confidentiality of Alcohol and Drug Abuse Patient Records regulations: The Federal rules restrict any use of the information to criminally investigate or prosecute any alcohol or drug abuse patient.[facility]In the event this information is protected by the Federal Confidentiality of Alcohol and Drug Abuse Patient Records regulations: The Federal rules restrict any use of the information to criminally investigate or prosecute any alcohol or drug abuse patient.[facility]In the event this information is protected by the Federal Confidentiality of Alcohol and Drug Abuse Patient Records regulations: The Federal rules restrict any use of the information to criminally investigate or prosecute any alcohol or drug abuse patient.[facility]In the event this information is protected by the Federal Confidentiality of Alcohol and Drug Abuse Patient Records regulations: The Federal rules restrict any use of the information to criminally investigate or prosecute any alcohol or drug abuse patient.[facility]In the event this information is protected by the Federal Confidentiality of Alcohol and Drug Abuse Patient Records regulations: The Federal rules restrict any use of the information to criminally investigate or prosecute any alcohol or drug abuse patient.[facility]In the event this information is protected by the Federal Confidentiality of Alcohol and Drug Abuse Patient Records regulations: The Federal rules restrict any use of the information to criminally investigate or prosecute any alcohol or drug abuse patient.[facility]In the event this information is protected by the Federal Confidentiality of Alcohol and Drug Abuse Patient Records regulations: The Federal rules restrict any use of the information to criminally investigate or prosecute any alcohol or drug abuse patient.[facility]In the event this information is protected by the Federal Confidentiality of Alcohol and Drug Abuse Patient Records regulations: The Federal rules restrict any use of the information to criminally investigate or prosecute any alcohol or drug abuse patient.[facility]In the event this information is protected by the Federal Confidentiality of Alcohol and Drug Abuse Patient Records regulations: The Federal rules restrict any use of the information to criminally investigate or prosecute any alcohol or drug abuse patient.[facility]In the event this information is protected by the Federal Confidentiality of Alcohol and Drug Abuse Patient Records regulations: The Federal rules restrict any use of the information to criminally investigate or prosecute any alcohol or drug abuse patient.[facility]In the event this information is protected by the Federal Confidentiality of Alcohol and Drug Abuse Patient Records regulations: The Federal rules restrict any use of the information to criminally investigate or prosecute any alcohol or drug abuse patient.[facility]In the event this information is protected by the Federal Confidentiality of Alcohol and Drug Abuse Patient Records regulations: The Federal rules restrict any use of the information to criminally investigate or prosecute any alcohol or drug abuse patient.[facility]In the event this information is protected by the Federal Confidentiality of Alcohol and Drug Abuse Patient Records regulations: The Federal rules restrict any use of the information to criminally investigate or prosecute any alcohol or drug abuse patient.[facility]In the event this information is protected by the Federal Confidentiality of Alcohol and Drug Abuse Patient Records regulations: The Federal rules restrict any use of the information to criminally investigate or prosecute any alcohol or drug abuse patient.[facility]In the event this information is protected by the Federal Confidentiality of Alcohol and Drug Abuse Patient Records regulations: The Federal rules restrict any use of the information to criminally investigate or prosecute any alcohol or drug abuse patient.[facility]In the event this information is protected by the Federal Confidentiality of Alcohol and Drug Abuse Patient Records regulations: The Federal rules restrict any use of the information to criminally investigate or prosecute any alcohol or drug abuse patient.[facility]In the event this information is protected by the Federal Confidentiality of Alcohol and Drug Abuse Patient Records regulations: The Federal rules restrict any use of the information to criminally investigate or prosecute any alcohol or drug abuse patient.[facility]In the event this information is protected by the Federal Confidentiality of Alcohol and Drug Abuse Patient Records regulations: The Federal rules restrict any use of the information to criminally investigate or prosecute any alcohol or drug abuse patient.[facility]In the event this information is protected by the Federal Confidentiality of Alcohol and Drug Abuse Patient Records regulations: The Federal rules restrict any use of the information to criminally investigate or prosecute any alcohol or drug abuse patient.[facility]In the event this information is protected by the Federal Confidentiality of Alcohol and Drug Abuse Patient Records regulations: The Federal rules restrict any use of the information to criminally investigate or prosecute any alcohol or drug abuse patient.[facility]In the event this information is protected by the Federal Confidentiality of Alcohol and Drug Abuse Patient Records regulations: The Federal rules restrict any use of the information to criminally investigate or prosecute any alcohol or drug abuse patient.[facility]In the event this information is protected by the Federal Confidentiality of Alcohol and Drug Abuse Patient Records regulations: The Federal rules restrict any use of the information to criminally investigate or prosecute any alcohol or drug abuse patient.[facility] CenterIn the event this information is protected by the Federal Confidentiality of Alcohol and Drug Abuse Patient Records regulations: The Federal rules restrict any use of the information to criminally investigate or prosecute any alcohol or drug abuse patient.[facility] CenterIn the event this information is protected by the Federal Confidentiality of Alcohol and Drug Abuse Patient Records regulations: The Federal rules restrict any use of the information to criminally investigate or prosecute any alcohol or drug abuse patient.[facility] CenterIn the event this information is protected by the Federal Confidentiality of Alcohol and Drug Abuse Patient Records regulations: The Federal rules restrict any use of the information to criminally investigate or prosecute any alcohol or drug abuse patient.[facility] CenterIn the event this information is protected by the Federal Confidentiality of Alcohol and Drug Abuse Patient Records regulations: The Federal rules restrict any use of the information to criminally investigate or prosecute any alcohol or drug abuse patient.[facility] CenterIn the event this information is protected by the Federal Confidentiality of Alcohol and Drug Abuse Patient Records regulations: The Federal rules restrict any use of the information to criminally investigate or prosecute any alcohol or drug abuse patient.[facility] CenterIn the event this information is protected by the Federal Confidentiality of Alcohol and Drug Abuse Patient Records regulations: The Federal rules restrict any use of the information to criminally investigate or prosecute any alcohol or drug abuse patient.[facility] CenterIn the event this information is protected by the Federal Confidentiality of Alcohol and Drug Abuse Patient Records regulations: The Federal rules restrict any use of the information to criminally investigate or prosecute any alcohol or drug abuse patient.[facility] CenterIn the event this information is protected by the Federal Confidentiality of Alcohol and Drug Abuse Patient Records regulations: The Federal rules restrict any use of the information to criminally investigate or prosecute any alcohol or drug abuse patient.[facility] CenterIn the event this information is protected by the Federal Confidentiality of Alcohol and Drug Abuse Patient Records regulations: The Federal rules restrict any use of the information to criminally investigate or prosecute any alcohol or drug abuse patient.[facility] Care Teams (unrecognized sec tion and content) Visual And Stock Associate Relationship Specialty Start Date End Date Lidia Lopez MD [address] [place], [place] 109271 PCP - General 07/13/02 Madelyn Meade RN [address] [address] Specialty Cell Maker Blood and Marrow Transplant 12/11/14 Delroy Padron MD [address] [place] [address] Primary Staff Physician Cardiology 12/06/18 Cade Gale, ophthalmic aideRn Hemodialysis Charge Internal Medicine 11/13/20 Sg Julien MD [address] [id number] Transplant Physician Hematology/Oncology 05/27/21 Amanda Benito, ANESTHESIA ATTENDING.LEAD HOUSEKEEPER [address] [place] [address] Nurse Practitioner Blood and Marrow Transplant 05/27/21 Visual And Stock Associate Relationship Specialty Start Date End Date Lidia Lopez MD [address] [place] [address] PCP - General 07/13/02 Madelyn Meade RN [address] [address] Specialty Cell Maker Blood and Marrow Transplant 12/11/14 Delroy Padron MD [address] [place], [place] [id number] Primary Staff Physician Cardiology 12/06/18 Shahla, Mohamud M, ophthalmic aideRn Hemodialysis Charge Internal Medicine 11/13/20 Sg Julien MD [address] [id number] Transplant Physician Hematology/Oncology 05/27/21 Amanda Benito, ANESTHESIA ATTENDING.LEAD HOUSEKEEPER [address] [place] [address] Nurse Practitioner Blood and Marrow Transplant 05/27/21 Visual And Stock Associate Relationship Specialty Start Date End Date Lidia Lopez MD [address] [place], [place] [id number] PCP - General 07/13/02 Madelyn Meade RN [address] [address] Specialty Cell Maker Blood and Marrow Transplant 12/11/14 Delroy Padron MD [address] [place] [address] Primary Staff Physician Cardiology 12/06/18 Cade Gale, ophthalmic aideRn Hemodialysis Charge Internal Medicine 11/13/20 Sg Julien MD [address] [address] Transplant Physician Hematology/Oncology 05/27/21 Amanda Benito, ANESTHESIA ATTENDING.LEAD HOUSEKEEPER [address] [place] [address] Nurse Practitioner Blood and Marrow Transplant 05/27/21 Visual And Stock Associate Relationship Specialty Start Date End Date Lidia Lopez MD [address] [place], [place] [id number] PCP - General 07/13/02 Madelyn Meade RN [address] [address] Specialty Cell Maker Blood and Marrow Transplant 12/11/14 Delroy Padron MD [address] [place] [address] Primary Staff Physician Cardiology 12/06/18 Cade Gale, ophthalmic aideRn Hemodialysis Charge Internal Medicine 11/13/20 Sg Julien MD [address] [address] Transplant Physician Hematology/Oncology 05/27/21 Amanda Benito, ANESTHESIA ATTENDING.LEAD HOUSEKEEPER [address] [place] [address] Nurse Practitioner Blood and Marrow Transplant 05/27/21 Visual And Stock Associate Relationship Specialty Start Date End Date Lidia Lopez MD [address] [place] [address] PCP - General 07/13/02 Madelyn Meade RN [address] [address] Specialty Cell Maker Blood and Marrow Transplant 12/11/14 Delroy Padron MD [address] [place] [address] Primary Staff Physician Cardiology 12/06/18 Cade Gale, ophthalmic aideRn Hemodialysis Charge Internal Medicine 11/13/20 Sg Julien MD [address] [address] Transplant Physician Hematology/Oncology 05/27/21 Amanda Benito, ANESTHESIA ATTENDING.LEAD HOUSEKEEPER [address] [place] [address] Nurse Practitioner Blood and Marrow Transplant 05/27/21 Socorro Rahman, MP [address] [address] Specialty Cell Maker Blood and Marrow Transplant 01/15/22 Visual And Stock Associate Relationship Specialty Start Date End Date Lidia Lopez MD [address] [place], [place] 166171 PCP - General 07/13/02 Madelyn Meade, MP [address] [address] Specialty Cell Maker Blood and Marrow Transplant 12/11/14 Delroy Padron MD [address] [place] [address] Primary Staff Physician Cardiology 12/06/18 Cade Gale, ophthalmic aideRn Hemodialysis Charge Internal Medicine 11/13/20 Sg Julien MD [address] [id number] Transplant Physician Hematology/Oncology 05/27/21 Amanda Benito, ANESTHESIA ATTENDING.LEAD HOUSEKEEPER [address] [place] [address] Nurse Practitioner Blood and Marrow Transplant 05/27/21 Socorro Rahman, MP [address] [address] Specialty Cell Maker Blood and Marrow Transplant 01/15/22 Visual And Stock Associate Relationship Specialty Start Date End Date Lidia Lopez MD [address] [place], [place] 144891 PCP - General 07/13/02 Madelyn Meade, RN [address] [address] Specialty Cell Maker Blood and Marrow Transplant 12/11/14 Delroy Padron MD [address] [place] [address] Primary Staff Physician Cardiology 12/06/18 Cade Gale, ophthalmic aideRn Hemodialysis Charge Internal Medicine 11/13/20 Sg Julien MD [address] [id number] Transplant Physician Hematology/Oncology 05/27/21 Amanda Benito, ANESTHESIA ATTENDING.LEAD HOUSEKEEPER [address] [place] [address] Nurse Practitioner Blood and Marrow Transplant 05/27/21 Socorro Rahman, MP [address] [address] Specialty Cell Maker Blood and Marrow Transplant 01/15/22 Visual And Stock Associate Relationship Specialty Start Date End Date Lidia Lopez MD [address] [place], [place] 721691 PCP - General 07/13/02 Madelyn Meade, MP [address] [address] Specialty Cell Maker Blood and Marrow Transplant 12/11/14 Delroy Padron MD [address] [place], [place] [id number] Primary Staff Physician Cardiology 12/06/18 Cade Gale, ophthalmic aideRn Hemodialysis Charge Internal Medicine 11/13/20 Sg Julien MD [address] [id number] Transplant Physician Hematology/Oncology 05/27/21 Amanda Benito, ANESTHESIA ATTENDING.LEAD HOUSEKEEPER [address] [place] [address] Nurse Practitioner Blood and Marrow Transplant 05/27/21 Socorro Rahman, MP [address] [address] Specialty Cell Maker Blood and Marrow Transplant 01/15/22 Visual And Stock Associate Relationship Specialty Start Date End Date Lidia Lopez MD [address] [place], [place] 913021 PCP - General 07/13/02 Madelyn Meade RN [address] [address] Specialty Cell Maker Blood and Marrow Transplant 12/11/14 Delroy Padorn MD [address] [place] [address] Primary Staff Physician Cardiology 12/06/18 Cade Gale, ophthalmic aideRn Hemodialysis Charge Internal Medicine 11/13/20 Sg Julien MD [address] [address] Transplant Physician Hematology/Oncology 05/27/21 Amanda Benito, ANESTHESIA ATTENDING.LEAD HOUSEKEEPER [address] [place] [address] Nurse Practitioner Blood and Marrow Transplant 05/27/21 Socorro Rahman RN [address] [address] Specialty Cell Maker Blood and Marrow Transplant 01/15/22 Visual And Stock Associate Relationship Specialty Start Date End Date Lidia Lopez MD [address] [place], [place] 951621 PCP - General 07/13/02 Madelyn Meade RN [address] [address] Specialty Cell Maker Blood and Marrow Transplant 12/11/14 Delroy Padron MD [address] [place] [address] Primary Staff Physician Cardiology 12/06/18 Cade Gale, ophthalmic aideRn Hemodialysis Charge Internal Medicine 11/13/20 Sg Julien MD [address] [address] Transplant Physician Hematology/Oncology 05/27/21 Amanda Benito, ANANT.LEAD HOUSEKEEPER [address] [place] [address] Nurse Practitioner Blood and Marrow Transplant 05/27/21 Socorro Rahman MP [address] [address] Specialty Cell Maker Blood and Marrow Transplant 01/15/22 Visual And Stock Associate Relationship Specialty Start Date End Date Lidia Lopez MD [address] [place], [place] 444721 PCP - General 07/13/02 Madelyn Meade, RN [address] [address] Specialty Cell Maker Blood and Marrow Transplant 12/11/14 Delroy Padron MD [address] [place] [address] Primary Staff Physician Cardiology 12/06/18 Cade Gale, ophthalmic aideRn Hemodialysis Charge Internal Medicine 11/13/20 Sg Julien MD [address] [id number] Transplant Physician Hematology/Oncology 05/27/21 Amanda Benito, ANESTHESIA ATTENDING.LEAD HOUSEKEEPER [address] [place] [address] Nurse Practitioner Blood and Marrow Transplant 05/27/21 Socorro Rahman, MP [address] [address] Specialty Cell Maker Blood and Marrow Transplant 01/15/22 Visual And Stock Associate Relationship Specialty Start Date End Date Lidia Lopze MD [address] [place], [place] 253351 PCP - General 07/13/02 Madelyn Meade, RN [address] [address] Specialty Cell Maker Blood and Marrow Transplant 12/11/14 Delroy Padron MD [address] [place] [address] Primary Staff Physician Cardiology 12/06/18 Shahla, Mohamud M, ophthalmic aideRn Hemodialysis Charge Internal Medicine 11/13/20 Sg Julien MD [address] [address] Transplant Physician Hematology/Oncology 05/27/21 Amanda Benito, ANESTHESIA ATTENDING.LEAD HOUSEKEEPER [address] [place] [address] Nurse Practitioner Blood and Marrow Transplant 05/27/21 Socorro Rahman, MP [address] [address] Specialty Cell Maker Blood and Marrow Transplant 01/15/22 Visual And Stock Associate Relationship Specialty Start Date End Date Lidia Lopez MD [address] [place], [place] [id number] PCP - General 07/13/02 Madelyn Meade RN [address] [address] Specialty Cell Maker Blood and Marrow Transplant 12/11/14 Delroy Padron MD [address] [place] [address] Primary Staff Physician Cardiology 12/06/18 Cade Gale, ophthalmic aideRn Hemodialysis Charge Internal Medicine 11/13/20 Sg Juilen MD [address] [address] Transplant Physician Hematology/Oncology 05/27/21 Amanda Benito, ANESTHESIA ATTENDING.LEAD HOUSEKEEPER [address] [place] [address] Nurse Practitioner Blood and Marrow Transplant 05/27/21 Socorro Rahman, MP [address] [address] Specialty Cell Maker Blood and Marrow Transplant 01/15/22 Visual And Stock Associate Relationship Specialty Start Date End Date Lidia Lopez MD [address] [place] [address] PCP - General 07/13/02 Madelyn Meade RN [address] [address] Specialty Cell Maker Blood and Marrow Transplant 12/11/14 Delroy Padron MD [address] [place] [address] Primary Staff Physician Cardiology 12/06/18 Cade Gale, ophthalmic aideRn Hemodialysis Charge Internal Medicine 11/13/20 Sg Julien MD [address] [id number] Transplant Physician Hematology/Oncology 05/27/21 Amanda Benito, ANESTHESIA ATTENDING.LEAD HOUSEKEEPER [address] [place] [address] Nurse Practitioner Blood and Marrow Transplant 05/27/21 Socorro Rahman, MP [address] [address] Specialty Cell Maker Blood and Marrow Transplant 01/15/22 Visual And Stock Associate Relationship Specialty Start Date End Date Lidia Lopez MD [address] [place] [address] PCP - General 07/13/02 Madelyn Meade RN [address] [address] Specialty Cell Maker Blood and Marrow Transplant 12/11/14 Delroy Padron MD [address] [place] [address] Primary Staff Physician Cardiology 12/06/18 Cade Gale, ophthalmic aideRn Hemodialysis Charge Internal Medicine 11/13/20 Sg Julien MD [address] [id number] Transplant Physician Hematology/Oncology 05/27/21 Amanda Benito, ANESTHESIA ATTENDING.LEAD HOUSEKEEPER [address] [place] [address] Nurse Practitioner Blood and Marrow Transplant 05/27/21 Socorro Rahman, MP [address] [address] Specialty Cell Maker Blood and Marrow Transplant 01/15/22 Visual And Stock Associate Relationship Specialty Start Date End Date Lidia Lopez MD [address] [place], [place] 656931 PCP - General 07/13/02 Madelyn Meade, MP [address] [address] Specialty Cell Maker Blood and Marrow Transplant 12/11/14 Delroy Padron MD [address] [place], [place] [id number] Primary Staff Physician Cardiology 12/06/18 Cade Gale, ophthalmic aideRn Hemodialysis Charge Internal Medicine 11/13/20 Sg Julien MD [address]00 [facility] [address] [place] [address] [id number] Transplant Physician Hematology/Oncology 05/27/21 Amanda Benito, ANESTHESIA ATTENDING.LEAD HOUSEKEEPER [address] [place] [address] Nurse Practitioner Blood and Marrow Transplant 05/27/21 Socorro Rahman, MP [address] [address] Specialty Cell Maker Blood and Marrow Transplant 01/15/22 Visual And Stock Associate Relationship Specialty Start Date End Date Lidia Lopez MD [address] [place], [place] 339901 PCP - General 07/13/02 Madelyn Meade RN [address] [address] Specialty Cell Maker Blood and Marrow Transplant 12/11/14 Delroy Padron MD [address] [place] [address] Primary Staff Physician Cardiology 12/06/18 Cade Gale, ophthalmic aideRn Hemodialysis Charge Internal Medicine 11/13/20 Sg Julien MD [address] [address] Transplant Physician Hematology/Oncology 05/27/21 Amanda Benito, ANESTHESIA ATTENDING.LEAD HOUSEKEEPER [address] [place] [address] Nurse Practitioner Blood and Marrow Transplant 05/27/21 Socorro Rahman, MP [address] [address] Specialty Cell Maker Blood and Marrow Transplant 01/15/22 Visual And Stock Associate Relationship Specialty Start Date End Date Lidia Lopez MD [facility] [place] [address] PCP - General 07/13/02 Madelyn Meade RN [address] [address] Specialty Cell Maker Blood and Marrow Transplant 12/11/14 Delroy Padron MD [address] [place] [address] Primary Staff Physician Cardiology 12/06/18 Cade Gale, ophthalmic aideRn Hemodialysis Charge Internal Medicine 11/13/20 Sg Julien MD [address] [address] Transplant Physician Hematology/Oncology 05/27/21 Amanda Benito, ANESTHESIA ATTENDING.LEAD HOUSEKEEPER [address] [place] [address] Nurse Practitioner Blood and Marrow Transplant 05/27/21 Socorro Rahman, MP [address] [address] Specialty Cell Maker Blood and Marrow Transplant 01/15/22 Visual And Stock Associate Relationship Specialty Start Date End Date Lidia Lopez MD [address] [place], [place] 261951 PCP - General 07/13/02 Madelyn Meade RN [address] [address] Specialty Cell Maker Blood and Marrow Transplant 12/11/14 Delroy Padron MD [address] [place] [address] Primary Staff Physician Cardiology 12/06/18 Cade Gale, ophthalmic aideRn Hemodialysis Charge Internal Medicine 11/13/20 Sg Julien MD [address] [id number] Transplant Physician Hematology/Oncology 05/27/21 Amanda Benito, ANESTHESIA ATTENDING.LEAD HOUSEKEEPER [address] [place] [address] Nurse Practitioner Blood and Marrow Transplant 05/27/21 Socorro Rahman, MP [address] [address] Specialty Cell Maker Blood and Marrow Transplant 01/15/22 Visual And Stock Associate Relationship Specialty Start Date End Date Lidia Lopez MD [address]39 [place], [place] 067741 PCP - General 07/13/02 Madelyn Meade, MP [address] [address] Specialty Cell Maker Blood and Marrow Transplant 12/11/14 Delroy Padron MD [address] [place] [address] Primary Staff Physician Cardiology 12/06/18 Cade Gale, ophthalmic aideRn Hemodialysis Charge Internal Medicine 11/13/20 Sg Julien MD [address] [address] Transplant Physician Hematology/Oncology 05/27/21 Amanda Benito, ANESTHESIA ATTENDING.LEAD HOUSEKEEPER [address] [place] [address] Nurse Practitioner Blood and Marrow Transplant 05/27/21 Socorro Rahman, RN [address] [address] Specialty Cell Maker Blood and Marrow Transplant 01/15/22 Visual And Stock Associate Relationship Specialty Start Date End Date Lidia Lopez MD [address] [place], [place] [id number] PCP - General 07/13/02 Madelyn Meade RN [address] [address] Specialty Cell Maker Blood and Marrow Transplant 12/11/14 Delroy Padron MD [address] [place] [address] Primary Staff Physician Cardiology 12/06/18 Cade Gale, ophthalmic aideRn Hemodialysis Charge Internal Medicine 11/13/20 Sg Julien MD [address] [address] Transplant Physician Hematology/Oncology 05/27/21 Amanda Benito, ANESTHESIA ATTENDING.LEAD HOUSEKEEPER [address] [place] [address] Nurse Practitioner Blood and Marrow Transplant 05/27/21 Socorro Rahman, MP [address] [address] Specialty Cell Maker Blood and Marrow Transplant 01/15/22 Visual And Stock Associate Relationship Specialty Start Date End Date Lidia Lopez MD [address] [place], [place] [id number] PCP - General 07/13/02 Madelyn Meade RN [address] [address] Specialty Cell Maker Blood and Marrow Transplant 12/11/14 Delroy Padron MD [address] [place] [address] Primary Staff Physician Cardiology 12/06/18 Cade Gale, ophthalmic aideRn Hemodialysis Charge Internal Medicine 11/13/20 Sg Julien MD [address] [id number] Transplant Physician Hematology/Oncology 05/27/21 Amanda Benito, ANESTHESIA ATTENDING.LEAD HOUSEKEEPER [address] [place] [address] Nurse Practitioner Blood and Marrow Transplant 05/27/21 Socorro Rahman, MP [address] [address] Specialty Cell Maker Blood and Marrow Transplant 01/15/22 Visual And Stock Associate Relationship Specialty Start Date End Date Lidia Lopez MD [address]40 [place] [address] PCP - General 07/13/02 Madelyn Meade RN [address] [address] Specialty Cell Maker Blood and Marrow Transplant 12/11/14 Delroy Padron MD [address] [place] [address] Primary Staff Physician Cardiology 12/06/18 Cade Gale, ophthalmic aideRn Hemodialysis Charge Internal Medicine 11/13/20 Sg Julien MD [address] [id number] Transplant Physician Hematology/Oncology 05/27/21 Amanda Benito, ANESTHESIA ATTENDING.LEAD HOUSEKEEPER [address] [place] [address] Nurse Practitioner Blood and Marrow Transplant 05/27/21 Socorro Rahman, RN [address] [address] Specialty Cell Maker Blood and Marrow Transplant 01/15/22 Visual And Stock Associate Relationship Specialty Start Date End Date Lidia Lopez MD [address] [place], [place] 208011 PCP - General 07/13/02 Madelyn Meade RN [address] [address] Specialty Cell Maker Blood and Marrow Transplant 12/11/14 Delroy Padron MD [address] [place] [address] Primary Staff Physician Cardiology 12/06/18 Cade Gale, ophthalmic aideRn Hemodialysis Charge Internal Medicine 11/13/20 Sg Julien MD [address] [id number] Transplant Physician Hematology/Oncology 05/27/21 Amanda Benito, ANESTHESIA ATTENDING.LEAD HOUSEKEEPER [address] [place] [address] Nurse Practitioner Blood and Marrow Transplant 05/27/21 Socorro Rahman, RN [address] [address] Specialty Cell Maker Blood and Marrow Transplant 01/15/22 Visual And Stock Associate Relationship Specialty Start Date End Date Lidia Lopez MD [address]39 [place], [place] 031161 PCP - General 07/13/02 Delroy Padron MD [address] [place] [address] Primary Staff Physician Cardiology 12/06/18 Cade Gale, ophthalmic aideRn Hemodialysis Charge Internal Medicine 11/13/20 Sg Julien MD [address] [id number] Transplant Physician Hematology/Oncology 05/27/21 Amanda Benito, ANESTHESIA ATTENDING.LEAD HOUSEKEEPER [address] [place] [address] Nurse Practitioner Blood and Marrow Transplant 05/27/21 Socorro Rahman RN [address] [address] Specialty Cell Maker Blood and Marrow Transplant 01/15/22 Visual And Stock Associate Relationship Specialty Start Date End Date Lidia Lopez MD [address] [place], [place] [id number] PCP - General 07/13/02 Delroy Padron MD [address] [place] [address] Primary Staff Physician Cardiology 12/06/18 Cade Gale, ophthalmic aideRn Hemodialysis Charge Internal Medicine 11/13/20 [place] [address] [address] Transplant Physician Hematology/Oncology 05/27/21 Amanda Benito, ANESTHESIA ATTENDING.LEAD HOUSEKEEPER [address] [place] [address] Nurse Practitioner Blood and Marrow Transplant 05/27/21 Socorro Rahman RN [address] [address] Specialty Cell Maker Blood and Marrow Transplant 01/15/22 Visual And Stock Associate Relationship Specialty Start Date End Date Lidia Lopez MD [address] [place], [place] 082991 PCP - General 07/13/02 Delroy Padron MD [address] [place] [address] Primary Staff Physician Cardiology 12/06/18 Cade Gale, ophthalmic aideRn Hemodialysis Charge Internal Medicine 11/13/20 Sg Julien MD [address] [address] Transplant Physician Hematology/Oncology 05/27/21 Amanda Benito, ANESTHESIA ATTENDING.LEAD HOUSEKEEPER [address] [place] [address] Nurse Practitioner Blood and Marrow Transplant 05/27/21 Socorro Rahman, MP [address] [address] Specialty Cell Maker Blood and Marrow Transplant 01/15/22 Visual And Stock Associate Relationship Specialty Start Date End Date Lidia Lopez MD [address] [place] [address] PCP - General 07/13/02 Delroy Padron MD [address] [place] [address] Primary Staff Physician Cardiology 12/06/18 Cade Gale, ophthalmic aideRn Hemodialysis Charge Internal Medicine 11/13/20 Sg Julien MD [address] [address] Transplant Physician Hematology/Oncology 05/27/21 Amanda Benito, ANESTHESIA ATTENDING.LEAD HOUSEKEEPER [address] [place] [address] Nurse Practitioner Blood and Marrow Transplant 05/27/21 Socorro Rahman RN [address] [address] Specialty Cell Maker Blood and Marrow Transplant 01/15/22 Visual And Stock Associate Relationship Specialty Start Date End Date Lidia Lopez MD [address]40 [place] [address] PCP - General 07/13/02 Delroy Padron MD [address] [place] [address] Primary Staff Physician Cardiology 12/06/18 Cade Gale, ophthalmic aideRn Hemodialysis Charge Internal Medicine 11/13/20 Sg Julien MD [facility] [facility] [address] [address] Transplant Physician Hematology/Oncology 05/27/21 Amanda Benito, ANESTHESIA ATTENDING.LEAD HOUSEKEEPER [address] [place] [address] Nurse Practitioner Blood and Marrow Transplant 05/27/21 Socorro Rahman RN [address] [address] Specialty Cell Maker Blood and Marrow Transplant 01/15/22 Visual And Stock Associate Relationship Specialty Start Date End Date Lidia Lopez MD [address]40 [place] [address] PCP - General 07/13/02 Delroy Padron MD [address] [place] [address] Primary Staff Physician Cardiology 12/06/18 Cade Gale, ophthalmic aideRn Hemodialysis Charge Internal Medicine 11/13/20 Sg Julien MD [address] [facility] [address] [id number] Transplant Physician Hematology/Oncology 05/27/21 Amanda Benito, ANESTHESIA ATTENDING.LEAD HOUSEKEEPER [address] [place] [address] Nurse Practitioner Blood and Marrow Transplant 05/27/21 Socorro Rahman RN [address] [address] Specialty Cell Maker Blood and Marrow Transplant 01/15/22 Visual And Stock Associate Relationship Specialty Start Date End Date Lidia Lopez MD 1739 [place], [place] 087621 PCP - General 07/13/02 Madelyn Meade RN [address] [address] Specialty Cell Maker Blood and Marrow Transplant 12/11/14 03/19/22 Delroy Padron MD [address] [place], [place] 0193395 Primary Staff Physician Cardiology 12/06/18 Cade Gale, ophthalmic aideRn Hemodialysis Charge Internal Medicine 11/13/20 Sg Julien MD [address] [id number] Transplant Physician Hematology/Oncology 05/27/21 Amanda Benito, ANESTHESIA ATTENDING.LEAD HOUSEKEEPER [address] [place] [address] Nurse Practitioner Blood and Marrow Transplant 05/27/21 Socorro Rahman RN [address] [address] Specialty Cell Maker Blood and Marrow Transplant 01/15/22 Visual And Stock Associate Relationship Specialty Start Date End Date Lidia Lopez MD 1739 [place] [address] PCP - General 07/13/02 Delroy Padron MD [address] [place], [place] [id number] Primary Staff Physician Cardiology 12/06/18 Cade Gale ophthalmic aideRn Hemodialysis Charge Internal Medicine 11/13/20 Sg Julien MD [address] [id number] Transplant Physician Hematology/Oncology 05/27/21 Amanda Benito, ANESTHESIA ATTENDING.LEAD HOUSEKEEPER [address] [place] [address] Nurse Practitioner Blood and Marrow Transplant 05/27/21 Socorro Rahman, MP [address] [address] Specialty Cell Maker Blood and Marrow Transplant 01/15/22 Visual And Stock Associate Relationship Specialty Start Date End Date Lidia Lopez MD [address]40 [place], [place] 701111 PCP - General 07/13/02 Delroy Padron MD [address] [place] [address] Primary Staff Physician Cardiology 12/06/18 Cade Gale, ophthalmic aideRn Hemodialysis Charge Internal Medicine 11/13/20 Sg Julien MD [address] [address] Transplant Physician Hematology/Oncology 05/27/21 Amanda Benito, ANESTHESIA ATTENDING.LEAD HOUSEKEEPER [address] [place] [address] Nurse Practitioner Blood and Marrow Transplant 05/27/21 Socorro Rahman, MP [address] [address] Specialty Cell Maker Blood and Marrow Transplant 01/15/22 Visual And Stock Associate Relationship Specialty Start Date End Date Lidia Lopez MD [address]40 [place], [place] 966381 PCP - General 07/13/02 Delroy Padron MD [address]00 [place] [address] Primary Staff Physician Cardiology 12/06/18 Shahla, Mohamud M, ophthalmic aideRn Hemodialysis Charge Internal Medicine 11/13/20 Sg Julien MD [address] [address] Transplant Physician Hematology/Oncology 05/27/21 Amanda Benito, ANESTHESIA ATTENDING.LEAD HOUSEKEEPER [address] [place] [address] Nurse Practitioner Blood and Marrow Transplant 05/27/21 Socorro Rahman, MP [address] [address] Specialty Cell Maker Blood and Marrow Transplant 01/15/22 Visual And Stock Associate Relationship Specialty Start Date End Date Lidia Lopez MD 1740 [place] [address] PCP - General 07/13/02 Delroy Padron MD [address]00 [place] [address] Primary Staff Physician Cardiology 12/06/18 Cade Gale, ophthalmic aideRn Hemodialysis Charge Internal Medicine 11/13/20 Sg Julien MD [address] [address] Transplant Physician Hematology/Oncology 05/27/21 Amanda Benito, ANESTHESIA ATTENDING.LEAD HOUSEKEEPER [address] [place] [address] Nurse Practitioner Blood and Marrow Transplant 05/27/21 Socorro Rahman RN [address] [address] Specialty Cell Maker Blood and Marrow Transplant 01/15/22 Visual And Stock Associate Relationship Specialty Start Date End Date Lidia Lopez MD 1740 [place] [address] PCP - General 07/13/02 Delroy Padron MD [address] [place] [address] Primary Staff Physician Cardiology 12/06/18 Cade Gale, ophthalmic aideRn Hemodialysis Charge Internal Medicine 11/13/20 Sg Julien MD [address] [address] Transplant Physician Hematology/Oncology 05/27/21 Amanda Benito, ANESTHESIA ATTENDING.LEAD HOUSEKEEPER [address] [place] [address] Nurse Practitioner Blood and Marrow Transplant 05/27/21 Socorro Rahman, MP [address] [address] Specialty Cell Maker Blood and Marrow Transplant 01/15/22 Visual And Stock Associate Relationship Specialty Start Date End Date Lidia Lopez MD [address] [place] [address] PCP - General 07/13/02 Delroy Padron MD [address]00 [place] [address] Primary Staff Physician Cardiology 12/06/18 Cade Gale, ophthalmic aideRn Hemodialysis Charge Internal Medicine 11/13/20 Sg Julien MD [address] [address] Transplant Physician Hematology/Oncology 05/27/21 Amanda Benito, ANESTHESIA ATTENDING.LEAD HOUSEKEEPER [address] [place] [address] Nurse Practitioner Blood and Marrow Transplant 05/27/21 Socorro Rahman, MP [address] [address] Specialty Cell Maker Blood and Marrow Transplant 01/15/22 Visual And Stock Associate Relationship Specialty Start Date End Date Lidia Lopez MD [facility] [place] [address] PCP - General 07/13/02 Delroy Padron MD [address] [place] [address] Primary Staff Physician Cardiology 12/06/18 Cade Gale, ophthalmic aideRn Hemodialysis Charge Internal Medicine 11/13/20 Sg Julien MD [address] [address] Transplant Physician Hematology/Oncology 05/27/21 Amanda Benito, ANESTHESIA ATTENDING.LEAD HOUSEKEEPER [address] [place] [address] Nurse Practitioner Blood and Marrow Transplant 05/27/21 Socorro Rahman RN [address] [address] Specialty Cell Maker Blood and Marrow Transplant 01/15/22 Visual And Stock Associate Relationship Specialty Start Date End Date Lidia Lopez MD 1740 [place], [place] 153261 PCP - General 07/13/02 Delroy Padron MD 0320 [place] [address] Primary Staff Physician Cardiology 12/06/18 Cade Gale ophthalmic aideRn Hemodialysis Charge Internal Medicine 11/13/20 Sg Julien MD [facility]120 [facility] [address] [address] Transplant Physician Hematology/Oncology 05/27/21 Amanda Benito, ANESTHESIA ATTENDING.LEAD HOUSEKEEPER [address] [place] [address] Nurse Practitioner Blood and Marrow Transplant 05/27/21 Socorro Rahman RN [address] [address] Specialty Cell Maker Blood and Marrow Transplant 01/15/22 Visual And Stock Associate Relationship Specialty Start Date End Date Lidia Lopez MD 1740 [place] [address] PCP - General 07/13/02 Delroy Padron MD [address]60 [place] [address] Primary Staff Physician Cardiology 12/06/18 Cade Gale, ophthalmic aideRn Hemodialysis Charge Internal Medicine 11/13/20 Sg Julien MD [address] [address] Transplant Physician Hematology/Oncology 05/27/21 Amanda Benito, ANESTHESIA ATTENDING.LEAD HOUSEKEEPER [address] [place] [address] Nurse Practitioner Blood and Marrow Transplant 05/27/21 Socorro Rahman, RN [address] [address] Specialty Cell Maker Blood and Marrow Transplant 01/15/22 Visual And Stock Associate Relationship Specialty Start Date End Date Lidia Lopez MD 1740 [place] [address] PCP - General 07/13/02 Delroy Padron MD [address]00 [place] [address] Primary Staff Physician Cardiology 12/06/18 Cade Gale, ophthalmic aideRn Hemodialysis Charge Internal Medicine 11/13/20 Sg Julien MD [address] [address] Transplant Physician Hematology/Oncology 05/27/21 Amanda Benito, ANESTHESIA ATTENDING.LEAD HOUSEKEEPER [address] [place] [address] Nurse Practitioner Blood and Marrow Transplant 05/27/21 Socorro Rahman, MP [address] [address] Specialty Cell Maker Blood and Marrow Transplant 01/15/22 Visual And Stock Associate Relationship Specialty Start Date End Date Lidia Lopez MD 174 [place], [place] 988911 PCP - General 07/13/02 Delroy Padron MD [address] [place] [address] Primary Staff Physician Cardiology 12/06/18 Cade Gale, ophthalmic aideRn Hemodialysis Charge Internal Medicine 11/13/20 Sg Julien MD [address] [id number] Transplant Physician Hematology/Oncology 05/27/21 Amanda Benito, ANESTHESIA ATTENDING.LEAD HOUSEKEEPER [address] [place] [address] Nurse Practitioner Blood and Marrow Transplant 05/27/21 Socorro Rahman RN [address] [address] Specialty Cell Maker Blood and Marrow Transplant 01/15/22 Visual And Stock Associate Relationship Specialty Start Date End Date Lidia Lopez MD 1739 [place], [place] 755731 PCP - General 07/13/02 Delroy Padron MD [address] [place], [place] 4204795 Primary Staff Physician Cardiology 12/06/18 Cade Gale ophthalmic aideRn Hemodialysis Charge Internal Medicine 11/13/20 Sg Julien MD [address] [id number] Transplant Physician Hematology/Oncology 05/27/21 Amanda Benito, ANESTHESIA ATTENDING.LEAD HOUSEKEEPER [address] [place] [address] Nurse Practitioner Blood and Marrow Transplant 05/27/21 Socorro Rahman, MP [address] [address] Specialty Cell Maker Blood and Marrow Transplant 01/15/22 Visual And Stock Associate Relationship Specialty Start Date End Date Lidia Lopez MD [address]40 [place], [place] [id number] PCP - General 07/13/02 Delroy Padron MD [address]20 [place], [place] 4225595 Primary Staff Physician Cardiology 12/06/18 Cade Gale, ophthalmic aideRn Hemodialysis Charge Internal Medicine 11/13/20 Sg Julien MD [address] 0646395 Transplant Physician Hematology/Oncology 05/27/21 Amanda Benito, ANESTHESIA ATTENDING.LEAD HOUSEKEEPER [address] [place] [address] Nurse Practitioner Blood and Marrow Transplant 05/27/21 Socorro Rahman RN [address] [address] Specialty Cell Maker Blood and Marrow Transplant 01/15/22 Conchis Tucker, RD [address] [place] [address] Registered Dietitian Nutrition 06/19/22 Visual And Stock Associate Relationship Specialty Start Date End Date Lidia Lopez MD [address]40 [place], [place] [id number] PCP - General 07/13/02 Delroy Padron MD [address]00 [place] [address] Primary Staff Physician Cardiology 12/06/18 Cade Gale, ophthalmic aideRn Hemodialysis Charge Internal Medicine 11/13/20 Sg Julien MD [address] [address] Transplant Physician Hematology/Oncology 05/27/21 Amanda Benito, ANESTHESIA ATTENDING.LEAD HOUSEKEEPER [address] [place] [address] Nurse Practitioner Blood and Marrow Transplant 05/27/21 Socorro Rahman RN [address] [address] Specialty Cell Maker Blood and Marrow Transplant 01/15/22 Conchis Tucker, RD [address] [facility] [place] [place] 264[address] Registered Dietitian Nutrition 06/19/22 Visual And Stock Associate Relationship Specialty Start Date End Date Lidia Lopez MD 1740 [place], [place] [id number] PCP - General 07/13/02 Delroy Padron MD 6646 [place] [address] Primary Staff Physician Cardiology 12/06/18 Cade Gale, ophthalmic aideRn Hemodialysis Charge Internal Medicine 11/13/20 Sg Julien MD [address] [address] Transplant Physician Hematology/Oncology 05/27/21 Amanda Benito, ANESTHESIA ATTENDING.LEAD HOUSEKEEPER [address] [place] [address] Nurse Practitioner Blood and Marrow Transplant 05/27/21 Socorro Rahman RN [address] [address] Specialty Cell Maker Blood and Marrow Transplant 01/15/22 Visual And Stock Associate Relationship Specialty Start Date End Date Lidia Lopez MD 1740 [place] [address] PCP - General 07/13/02 Delroy Padron MD [address] [place] [address] Primary Staff Physician Cardiology 12/06/18 Cade Gale, ophthalmic aideRn Hemodialysis Charge Internal Medicine 11/13/20 Sg Julien MD [address] [id number] Transplant Physician Hematology/Oncology 05/27/21 Amanda Benito APRN.LEAD HOUSEKEEPER [address] [place] [address] Nurse Practitioner Blood and Marrow Transplant 05/27/21 Socorro Rahman, RN [address] [address] Specialty Cell Maker Blood and Marrow Transplant 01/15/22 Conchis Tucker, RD [address] [place] [address] Registered Dietitian Nutrition 06/19/22 Visual And Stock Associate Relationship Specialty Start Date End Date Lidia Lopez MD 1740 [place] [address] PCP - General 07/13/02 Delroy Padron MD [address] [place] [address] Primary Staff Physician Cardiology 12/06/18 Cade Gale, ophthalmic aideRn Hemodialysis Charge Internal Medicine 11/13/20 Sg Julien MD [address] [id number] Transplant Physician Hematology/Oncology 05/27/21 Amanda Benito, ANESTHESIA ATTENDING.LEAD HOUSEKEEPER [address] [place] [address] Nurse Practitioner Blood and Marrow Transplant 05/27/21 Socorro Rahman, MP [address] [address] Specialty Cell Maker Blood and Marrow Transplant 01/15/[address] [facility] [place], [place] [address]881 Registered Dietitian Nutrition 06/19/22 Visual And Stock Associate Relationship Specialty Start Date End Date Lidia Lopez MD 1740 [place], [place] [id number] PCP - General 07/13/02 Delroy Padron MD 5090 [place] [address] Primary Staff Physician Cardiology 12/06/18 Cade Gale, ophthalmic aideRn Hemodialysis Charge Internal Medicine 11/13/20 Sg Julien MD [address] [phone] Transplant Physician Hematology/Oncology 05/27/21 Amanda Benito, ANESTHESIA ATTENDING.LEAD HOUSEKEEPER [address] [place] [address] Nurse Practitioner Blood and Marrow Transplant 05/27/21 Socorro Rahman, MP [address] [address] Specialty Cell Maker Blood and Marrow Transplant 01/15/22 Conchis Tucker, RD [address] [facility] [place], [place] 60148[address] Registered Dietitian Nutrition 06/19/22 Visual And Stock Associate Relationship Specialty Start Date End Date Lidia Lopez MD 1740 [place] [address] PCP - General 07/13/02 Delroy Padron MD [address] [place] [address] Primary Staff Physician Cardiology 12/06/18 Cade Gale, ophthalmic aideRn Hemodialysis Charge Internal Medicine 11/13/20 Sg Julien MD [facility]00 [facility] [address] [address] Transplant Physician Hematology/Oncology 05/27/21 Amanda Benito, ANESTHESIA ATTENDING.LEAD HOUSEKEEPER [address] [place] [address] Nurse Practitioner Blood and Marrow Transplant 05/27/21 Socorro Rahman RN [address] [address] Specialty Cell Maker Blood and Marrow Transplant 01/15/22 Visual And Stock Associate Relationship Specialty Start Date End Date Lidia Lopez MD 1740 [place] [address] PCP - General 07/13/02 Delroy Padron MD 6880 [place] [address] Primary Staff Physician Cardiology 12/06/18 Cade Gale, ophthalmic aideRn Hemodialysis Charge Internal Medicine 11/13/20 Sg Julien MD [address] [address] Transplant Physician Hematology/Oncology 05/27/21 Amanda Benito, ANESTHESIA ATTENDING.LEAD HOUSEKEEPER [address] [place] [address] Nurse Practitioner Blood and Marrow Transplant 05/27/21 Socorro Rahman RN [address] [address] Specialty Cell Maker Blood and Marrow Transplant 01/15/22 Conchis Tucker, RD [address] [place] [address] Registered Dietitian Nutrition 06/19/22 Visual And Stock Associate Relationship Specialty Start Date End Date Lidia Lopez MD [address]40 [place], [place] [id number] PCP - General 07/13/02 Delroy Padron MD 4540 [place] [address] Primary Staff Physician Cardiology 12/06/18 Sg Julien MD [address] [phone] Transplant Physician Hematology/Oncology 05/27/21 Amanda Benito, ANESTHESIA ATTENDING.LEAD HOUSEKEEPER [address] [place] [address] Nurse Practitioner Blood and Marrow Transplant 05/27/21 Socorro Rahman, MP [address] [address] Specialty Cell Maker Blood and Marrow Transplant 01/15/22 Conchis Tucker, LOU [address] [facility] [place] [address] Registered Dietitian Nutrition 06/19/22 Giselle Natarajan, MP 6000 [place], [place] [id number] Rn Hemodialysis Charge 11/13/20 Visual And Stock Associate Relationship Specialty Start Date End Date Lidia Lopez MD 1740 [place] [address] PCP - General 07/13/02 Delroy Padron MD [address]90 [place] [address] Primary Staff Physician Cardiology 12/06/18 Sg Julien MD [address] [id number] Transplant Physician Hematology/Oncology 05/27/21 Amanda Benito, ANESTHESIA ATTENDING.LEAD HOUSEKEEPER [address] [place] [address] Nurse Practitioner Blood and Marrow Transplant 05/27/21 Socorro Rahman, MP [address] [address] Specialty Cell Maker Blood and Marrow Transplant 01/15/[address] [place], [place] 321701 Registered Dietitian Nutrition 06/19/22 Giselle Natarajan RN [address] [place] [address] Rn Hemodialysis Charge 11/13/20 Visual And Stock Associate Relationship Specialty Start Date End Date Lidia Lopez MD 1740 [place], [place] [id number] PCP - General 07/13/02 Delroy Padron MD 0606 [place] [address] Primary Staff Physician Cardiology 12/06/18 Sg Julien MD [address] [address] Transplant Physician Hematology/Oncology 05/27/21 Amanda Benito, ANESTHESIA ATTENDING.LEAD HOUSEKEEPER [address] [place] [address] Nurse Practitioner Blood and Marrow Transplant 05/27/21 Socorro Rahman RN [address] [address] Specialty Cell Maker Blood and Marrow Transplant 01/15/22 Conchis Tucker, RD [address] [place] [address] Registered Dietitian Nutrition 06/19/22 Giselle Natarajan, RN 6000 [place], [place] [id number] Rn Hemodialysis Charge 11/13/20 Visual And Stock Associate Relationship Specialty Start Date End Date Lidia Lopez MD 1740 [place] [address] PCP - General 07/13/02 Delroy Padron MD 2030 [place] [address] Primary Staff Physician Cardiology 12/06/18 Sg Julien MD [address] [phone] Transplant Physician Hematology/Oncology 05/27/21 Amanda Benito, ANANT.LEAD HOUSEKEEPER [address] [place] [address] Nurse Practitioner Blood and Marrow Transplant 05/27/21 Socorro Rahman, RN [address] [address] Specialty Cell Maker Blood and Marrow Transplant 01/15/[address] [place] [address] Registered Dietitian Nutrition 06/19/22 Giselle Natarajan, MP 6000 [place] [address] Rn Hemodialysis Charge 11/13/20 Visual And Stock Associate Relationship Specialty Start Date End Date Lidia Lopez MD 1740 [place] [address] PCP - General 07/13/02 Delroy Padron MD 9500 [place] [address] Primary Staff Physician Cardiology 12/06/18 Sg Julien MD [address] [phone] Transplant Physician Hematology/Oncology 05/27/21 Amanda Benito, ANESTHESIA ATTENDING.LEAD HOUSEKEEPER [address] [place] [address] Nurse Practitioner Blood and Marrow Transplant 05/27/21 Socorro Rahman, RN [address] [address] Specialty Cell Maker Blood and Marrow Transplant 01/15/22 Conchis Tucker, RD [address] [facility] [place], [place] 343561 Registered Dietitian Nutrition 06/19/22 Giselle Natarajan, MP [address] [place] [address] [id number] Rn Hemodialysis Charge 11/13/20 Visual And Stock Associate Relationship Specialty Start Date End Date Lidia Lopez MD [address] [place] [address] [id number] PCP - General Internal Medicine 09/11/18 Visual And Stock Associate Relationship Specialty Start Date End Date Lidia Lopez MD [address] [place] [address] [id number] PCP - General 07/13/02 Delroy Padron MD 4460 [place] [address] Primary Staff Physician Cardiology 12/06/18 Sg Julien MD [address] [phone] Transplant Physician Hematology/Oncology 05/27/21 Amanda Benito, ANANT.LEAD HOUSEKEEPER [address] [place] [address] Nurse Practitioner Blood and Marrow Transplant 05/27/21 Socorro Rahman RN [address] [address] Specialty Cell Maker Blood and Marrow Transplant 01/15/[address] [facility] [place] [address] Registered Dietitian Nutrition 06/19/22 Giselle Natarajan RN 6000 [place] [address] Rn Hemodialysis Charge 11/13/20 Visual And Stock Associate Relationship Specialty Start Date End Date Lidia Lopez MD 1740 [place] [address] PCP - General 07/13/02 Delroy Padron MD 0770 [place] [address] Primary Staff Physician Cardiology 12/06/18 Sg Julien MD [address] [address] Transplant Physician Hematology/Oncology 05/27/21 Amanda Benito, ANESTHESIA ATTENDING.LEAD HOUSEKEEPER [address] [place] [address] Nurse Practitioner Blood and Marrow Transplant 05/27/21 Socorro Rahman RN [address] [address] Specialty Cell Maker Blood and Marrow Transplant 01/15/[address] [facility] [place] [address] Registered Dietitian Nutrition 06/19/22 Giselle Natarajan RN 6000 [place], [place] 4000031 Rn Hemodialysis Charge 11/13/20 Visual And Stock Associate Relationship Specialty Start Date End Date Lidia Lopez MD [address]40 [place], [place] 379841 PCP - General 07/13/02 Delroy Padron MD [address] [place] [address] Primary Staff Physician Cardiology 12/06/18 Sg Julien MD [address] [address] Transplant Physician Hematology/Oncology 05/27/21 Amanda Benito, ANANT.LEAD HOUSEKEEPER [address] [place] [address] Nurse Practitioner Blood and Marrow Transplant 05/27/21 Socorro Rahman, RN [address] [address] Specialty Cell Maker Blood and Marrow Transplant 01/15/22 Conchis Tucker, RD [address] [place] [address] Registered Dietitian Nutrition 06/19/22 Giselle Natarajan, MP 6000 [place], [place] [id number] Rn Hemodialysis Charge 07/19/22 Visual And Stock Associate Relationship Specialty Start Date End Date Lidia Lopez MD 1740 [place] [address] PCP - General 07/13/02 Delroy Padron MD 7570 [place] [address] Primary Staff Physician Cardiology 12/06/18 Sg Julien MD [address] [address] Transplant Physician Hematology/Oncology 05/27/21 Amanda Benito, ANESTHESIA ATTENDING.LEAD HOUSEKEEPER [address] [place] [address] Nurse Practitioner Blood and Marrow Transplant 05/27/21 Socorro Rahman RN [address] [address] Specialty Cell Maker Blood and Marrow Transplant 01/15/[address] [place] [address] Registered Dietitian Nutrition 06/19/22 Giselle Natarajan RN 6000 [place] [address] Rn Hemodialysis Charge 07/19/22 Visual And Stock Associate Relationship Specialty Start Date End Date Lidia Lopez MD 1740 [place] [address] PCP - General 07/13/02 Delroy Padron MD 9980 [place] [address] Primary Staff Physician Cardiology 12/06/18 Sg Julien MD [address] [address] Transplant Physician Hematology/Oncology 05/27/21 Amanda Benito, ANESTHESIA ATTENDING.LEAD HOUSEKEEPER [address] [place] [address] Nurse Practitioner Blood and Marrow Transplant 05/27/21 Socorro Rahman RN [address] [address] Specialty Cell Maker Blood and Marrow Transplant 01/15/[address] [place] [address] Registered Dietitian Nutrition 06/19/22 Giselle Natarajan RN 6000 [place] [address] Rn Hemodialysis Charge 07/19/22 Visual And Stock Associate Relationship Specialty Start Date End Date Lidia Lopez MD 1740 [place], [place] 766471 PCP - General 07/13/02 Delroy Padron MD [address] [place] [address] Primary Staff Physician Cardiology 12/06/18 Sg Julien MD [address] [address] Transplant Physician Hematology/Oncology 05/27/21 mAanda Benito APRN.LEAD HOUSEKEEPER [address] [place] [address] Nurse Practitioner Blood and Marrow Transplant 05/27/21 Socorro Rahman, MP [address] [address] Specialty Cell Maker Blood and Marrow Transplant 01/15/22 Conchis Tucker, RD [address] [place], [place] [id number] Registered Dietitian Nutrition 06/19/22 Giselle Natarajan, MP 6000 [place] [address] Rn Hemodialysis Charge 07/19/22 Visual And Stock Associate Relationship Specialty Start Date End Date Lidia Lopez MD 1740 [place] [address] PCP - General 07/13/02 Delroy Padron MD [address] [place] [address] Primary Staff Physician Cardiology 12/06/18 Sg Julien MD [address] [address] Transplant Physician Hematology/Oncology 05/27/21 Amanda Benito, ANESTHESIA ATTENDING.LEAD HOUSEKEEPER [address] [place] [address] Nurse Practitioner Blood and Marrow Transplant 05/27/21 Socorro Rahman RN [address] [address] Specialty Cell Maker Blood and Marrow Transplant 01/15/22 Conchis Tucker, RD [address] E [facility] [place] [address] Registered Dietitian Nutrition 06/19/22 Giselle Natarajan RN 6000 [place], [place] [id number] Rn Hemodialysis Charge 07/19/22 Visual And Stock Associate Relationship Specialty Start Date End Date Lidia Lopez MD 1740 [place], [place] [id number] PCP - General 07/13/02 Delroy Padron MD 9500 [place] [address] Primary Staff Physician Cardiology 12/06/18 Sg Julien MD [address] [address] Transplant Physician Hematology/Oncology 05/27/21 Amanda Benito, ANESTHESIA ATTENDING.LEAD HOUSEKEEPER [address] [place] [address] Nurse Practitioner Blood and Marrow Transplant 05/27/21 Socorro Rahman RN [address] [address] Specialty Cell Maker Blood and Marrow Transplant 01/15/22 Conchis Tucker, RD [address] [place] [address] Registered Dietitian Nutrition 06/19/22 Giselle Natarajan RN 6000 [place] [address] Rn Hemodialysis Charge 07/19/22 Visual And Stock Associate Relationship Specialty Start Date End Date Lidia Lopez MD [address] [place], [place] 627291 PCP - General 07/13/02 Delroy Padron MD [address] [place] [address] Primary Staff Physician Cardiology 12/06/18 Sg Julien MD [address] [address] Transplant Physician Hematology/Oncology 05/27/21 Amanda Benito APRN.LEAD HOUSEKEEPER [address] [place] [address] Nurse Practitioner Blood and Marrow Transplant 05/27/21 Socorro Rahman, RN [address] [address] Specialty Cell Maker Blood and Marrow Transplant 01/15/22 Conchis Tucker, RD [address] [place] [address] Registered Dietitian Nutrition 06/19/22 Giselle Natarajan RN [address]000 [place] [address] Rn Hemodialysis Charge 07/19/22 Visual And Stock Associate Relationship Specialty Start Date End Date Lidia Lopez MD [address] [place] [address] PCP - General 07/13/02 Delroy Padron MD [address] [place] [address] Primary Staff Physician Cardiology 12/06/18 Sg Julien MD [address] [address] Transplant Physician Hematology/Oncology 05/27/21 Amanda Benito, ANESTHESIA ATTENDING.LEAD HOUSEKEEPER [address] [place] [address] Nurse Practitioner Blood and Marrow Transplant 05/27/21 Socorro Rahman RN [address] [address] Specialty Cell Maker Blood and Marrow Transplant 01/15/22 Conchis Tucker, RD [address] [place] [address] Registered Dietitian Nutrition 06/19/22 Giselle Natarajan RN [address] [place] [address] [id number] Rn Hemodialysis Charge 07/19/22 Visual And Stock Associate Relationship Specialty Start Date End Date Lidia Lopez MD [address] [place], [place] [id number] PCP - General 07/13/02 Delroy Padron MD [address]00 [place] [address] Primary Staff Physician Cardiology 12/06/18 Sg Julien MD [address] [address] Transplant Physician Hematology/Oncology 05/27/21 Amanda Benito, ANESTHESIA ATTENDING.LEAD HOUSEKEEPER [address] [place] [address] Nurse Practitioner Blood and Marrow Transplant 05/27/21 Socorro Rahman, MP [address] [address] Specialty Cell Maker Blood and Marrow Transplant 01/15/22 Conchis Tucker, RD [address] [place] [address] Registered Dietitian Nutrition 06/19/22 Giselle Natarajan, MP 6000 [place], [place] [id number] Rn Hemodialysis Charge 07/19/22 Visual And Stock Associate Relationship Specialty Start Date End Date Lidia Lopez MD [address] [place], [place] 415091 PCP - General 07/13/02 Delroy Padron MD [address] [place] [address] Primary Staff Physician Cardiology 12/06/18 Shahla Mohamud, ophthalmic aideRn Hemodialysis Charge Internal Medicine 11/13/20 07/19/22 Sg Julien MD [address] [id number] Transplant Physician Hematology/Oncology 05/27/21 Amanda Benito, ANESTHESIA ATTENDING.LEAD HOUSEKEEPER [address] [place] [address] Nurse Practitioner Blood and Marrow Transplant 05/27/21 Socorro Rahman, RN [address] [address] Specialty Cell Maker Blood and Marrow Transplant 01/15/22 Conchis Tucker, RD [address] [place], [place] 61955[address] Registered Dietitian Nutrition 06/19/22 Giselle Natarajan, MP 6000 [place] [address] Rn Hemodialysis Charge 07/19/22 Visual And Stock Associate Relationship Specialty Start Date End Date Lidia Lopez MD [address] [place], [place] [id number] PCP - General 07/13/02 Delroy Padron MD [address] [place] [address] Primary Staff Physician Cardiology 12/06/18 Sg Julien MD [address] [id number] Transplant Physician Hematology/Oncology 05/27/21 Amanda Benito, ANANT.LEAD HOUSEKEEPER [address] [place] [address] Nurse Practitioner Blood and Marrow Transplant 05/27/21 Socorro Rahman, MP [address] [address] Specialty Cell Maker Blood and Marrow Transplant 01/15/[address] [place], [place] 57539691 Registered Dietitian Nutrition 06/19/22 Sarai Mas RN Rn Hemodialysis Charge 02/24/23 Visual And Stock Associate Relationship Specialty Start Date End Date Lidia Lopez MD [address] [place], [place] 561111 PCP - General 07/13/02 Delroy Padron MD [address] [place] [address] Primary Staff Physician Cardiology 12/06/18 Sg Julien MD [address] [address] Transplant Physician Hematology/Oncology 05/27/21 Amanda Benito, ANESTHESIA ATTENDING.LEAD HOUSEKEEPER [address] [place] [address] Nurse Practitioner Blood and Marrow Transplant 05/27/21 Socorro Rahman RN [address] [address] Specialty Cell Maker Blood and Marrow Transplant 01/15/[address] [place], [place] [phone] Registered Dietitian Nutrition 06/19/22 Sarai Mas, ophthalmic aideRn Hemodialysis Charge 02/24/23 Visual And Stock Associate Relationship Specialty Start Date End Date Lidia Lopez MD [address] [place], [place] 817351 PCP - General 07/13/02 Delroy Padron MD [address] [place] [address] Primary Staff Physician Cardiology 12/06/18 Sg Julien MD [address] [facility] [place], [place] 5804795 Transplant Physician Hematology/Oncology 05/27/21 Amanda Benito, ANESTHESIA ATTENDING.LEAD HOUSEKEEPER [address] [place] [address] Nurse Practitioner Blood and Marrow Transplant 05/27/21 Socorro Rahman, RN [address] [address] Specialty Cell Maker Blood and Marrow Transplant 01/15/22 Conchis Tucker, RD [address] [place] [address] Registered Dietitian Nutrition 06/19/22 Sarai Mas, ophthalmic aideRn Hemodialysis Charge 02/24/23 Visual And Stock Associate Relationship Specialty Start Date End Date Lidia Lopez MD [address] [place] [address] PCP - General 07/13/02 Delroy Padron MD [address] [place] [address] Primary Staff Physician Cardiology 12/06/18 Sg Julien MD [address] [place] [address] Transplant Physician Hematology/Oncology 05/27/21 Amanda Benito APRN.LEAD HOUSEKEEPER [address] [place] [address] Nurse Practitioner Blood and Marrow Transplant 05/27/21 Socorro Rahman, MP [address] [address] Specialty Cell Maker Blood and Marrow Transplant 01/15/22 Conchis Tucker, RD [address] [place] [address] Registered Dietitian Nutrition 06/19/22 Sarai Mas RN Rn Hemodialysis Charge 02/24/23 Team Status: Active Member Role Status Dates Dr. Lidia Lopez MD Family Provider Active Dr. Lidia Lopez MD Primary Care Provider Active Team Status: Inactive Member Role Status Dates Dr. Lidia Lopez MD Primary Care Provider Active Dr. Kwabena Sin DO Emergency Provider Active Visual And Stock Associate Relationship Specialty Start Date End Date Lidia Lopez MD [address] [place], [place] [id number] PCP - General 07/13/02 Delroy Padron MD [address] [place] [address] Primary Staff Physician Cardiology 12/06/18 Sg Julien MD [address] [phone] Transplant Physician Hematology/Oncology 05/27/21 Amanda Bentio, ANANT.LEAD HOUSEKEEPER [address] [place] [address] Nurse Practitioner Blood and Marrow Transplant 05/27/21 Socorro Rahman, MP [address] [address] Specialty Cell Maker Blood and Marrow Transplant 01/15/22 Conchis Tucker, LOU [address] [place], [place] [phone] Registered Dietitian Nutrition 06/19/22 Sarai Mas, ophthalmic aideRn Hemodialysis Charge 02/24/23 Visual And Stock Associate Relationship Specialty Start Date End Date Lidia Lopez MD [address] [place], [place] 190201 PCP - General 07/13/02 Delroy Padron MD [address] [place], [place] 0915395 Primary Staff Physician Cardiology 12/06/18 Sg Julien MD [address] [place], [place] 6529495 Transplant Physician Hematology/Oncology 05/27/21 Amanda Benito APRN.LEAD HOUSEKEEPER [address] [place] [address] Nurse Practitioner Blood and Marrow Transplant 05/27/21 Socorro Rahman, MP [address] [address] Specialty Cell Maker Blood and Marrow Transplant 01/15/[address] [place], [place] [id number] Registered Dietitian Nutrition 06/19/22 Sarai Mas, ophthalmic aideRn Hemodialysis Charge 02/24/23 Mary Yanez, ophthalmic aide Fishing Vessel Mate 03/29/23 04/28/23 Clare Baez DO [address] [place], [place] [phone] Hematology/Oncology 03/29/23 Visual And Stock Associate Relationship Specialty Start Date End Date Lidia Lopez MD [address] [place], [place] 034641 PCP - General 07/13/02 Delroy Padron MD [address] [place] [address] Primary Staff Physician Cardiology 12/06/18 Sg Julien MD [address]00 [facility] [address] [place], [place] 8910095 Transplant Physician Hematology/Oncology 05/27/21 Amanda Benito APRN.[facility] [address] [place] [address] Nurse Practitioner Blood and Marrow Transplant 05/27/21 Socorro Rahman, MP [address] [address] Specialty Cell Maker Blood and Marrow Transplant 01/15/[address] [place], [place] [id number] Registered Dietitian Nutrition 06/19/22 Sarai Mas, ophthalmic aideRn Hemodialysis Charge 02/24/23 Mary Yanez, ophthalmic aide Fishing Vessel Mate 03/29/23 04/28/23 Clare Baez DO [address] [place], [place] [phone] Hematology/Oncology 03/29/23 Visual And Stock Associate Relationship Specialty Start Date End Date Lidia Lopez MD [address] [place] [address] PCP - General 07/13/02 Delroy Padron MD [address] [place] [address] Primary Staff Physician Cardiology 12/06/18 Sg Julien MD [address]00 [facility] R[address] [place], [place] 7132095 Transplant Physician Hematology/Oncology 05/27/21 Amanda Benito, ANANT.LEAD HOUSEKEEPER [address] [place] [address] Nurse Practitioner Blood and Marrow Transplant 05/27/21 Socorro Rahman RN [address] [address] Specialty Cell Maker Blood and Marrow Transplant 01/15/[address] [facility] [place] [phone] Registered Dietitian Nutrition 06/19/22 Sarai Mas, ophthalmic aideRn Hemodialysis Charge 02/24/23 Mary Yanez, ophthalmic aide Fishing Vessel Mate 03/29/23 04/28/23 Clare Baez DO [address] [place], [place] [phone] Hematology/Oncology 03/29/23 Visual And Stock Associate Relationship Specialty Start Date End Date Lidia Lopez MD [address] [place], [place] [id number] PCP - General 07/13/02 Delroy Padron MD [address] [place] [address] Primary Staff Physician Cardiology 12/06/18 Sg Julien MD [address] [place] [address] Transplant Physician Hematology/Oncology 05/27/21 Amanda Benito APRN.LEAD HOUSEKEEPER [address] [place] [address] Nurse Practitioner Blood and Marrow Transplant 05/27/21 Socorro Rahman, MP [address] [address] Specialty Cell Maker Blood and Marrow Transplant 01/15/[address] [place], [place] 362081 Registered Dietitian Nutrition 06/19/22 Sarai Mas RN Rn Hemodialysis Charge 02/24/23 Mary Yanez, ophthalmic aide Fishing Vessel Mate 03/29/23 04/28/23 Clare Baez DO [address] [place] [address] Hematology/Oncology 03/29/23 Visual And Stock Associate Relationship Specialty Start Date End Date Lidia Lopez MD [address] [place] [address] PCP - General 07/13/02 Delroy Padron MD [address] [place] [address] Primary Staff Physician Cardiology 12/06/18 Sg Julien MD [address] [place] [address] Transplant Physician Hematology/Oncology 05/27/21 Amanda Benito APRN.LEAD HOUSEKEEPER [address] [place] [address] Nurse Practitioner Blood and Marrow Transplant 05/27/21 Socorro Rahman, MP [address] [address] Specialty Cell Maker Blood and Marrow Transplant 01/15/[address] [place], [place] 268141 Registered Dietitian Nutrition 06/19/22 Sarai Mas, ophthalmic aideRn Hemodialysis Charge 02/24/23 Clare Baez DO [address] [place], [place] [phone] Hematology/Oncology 03/29/23 Visual And Stock Associate Relationship Specialty Start Date End Date Lidia Lopez MD [address] [place] [address] PCP - General 07/13/02 Delroy Padron MD [address] [place], [place] 7935195 Primary Staff Physician Cardiology 12/06/18 Sg Julien MD [address] [phone] Transplant Physician Hematology/Oncology 05/27/21 Amanda Benito APRN.LEAD HOUSEKEEPER [address] [place] [address] Nurse Practitioner Blood and Marrow Transplant 05/27/21 Socorro Rahman RN [address] [phone] Specialty Cell Maker Blood and Marrow Transplant 01/15/[address] [place], [place] [phone] Registered Dietitian Nutrition 06/19/22 Sarai Mas, ophthalmic aideRn Hemodialysis Charge 02/24/23 Clare Baez DO [address] [place], [place] [phone] Hematology/Oncology 03/29/23 Visual And Stock Associate Relationship Specialty Start Date End Date Lidia Lopez MD [address] [place], [place] [id number] PCP - General 07/13/02 Delroy Padron MD [address] [facility] [place] 7279195 Primary Staff Physician Cardiology 12/06/18 Sg Julien MD [address] 7809195 Transplant Physician Hematology/Oncology 05/27/21 Amanda Benito APRN.LEAD HOUSEKEEPER [address] [place] [address] Nurse Practitioner Blood and Marrow Transplant 05/27/21 Socorro Rahman, MP [address] [address] Specialty Cell Maker Blood and Marrow Transplant 01/15/[address] [facility] [place] 039201 Registered Dietitian Nutrition 06/19/22 Sarai Mas, ophthalmic aideRn Hemodialysis Charge 02/24/23 Clare Baez DO [address] [place], [place] 700261 Hematology/Oncology 03/29/23 Visual And Stock Associate Relationship Specialty Start Date End Date Lidia Lopez MD [address] [place], [place] 745751 PCP - General 07/13/02 Delroy Padron MD [address] [place] [address] Primary Staff Physician Cardiology 12/06/18 Sg Julien MD [address] [facility] [address] [place], [place] 1875695 Transplant Physician Hematology/Oncology 05/27/21 Amanda Benito APRN.[facility] [address] [place] [address] Nurse Practitioner Blood and Marrow Transplant 05/27/21 Socorro Rahman, RN [address] [address] Specialty Cell Maker Blood and Marrow Transplant 01/15/[address] [place] [address] Registered Dietitian Nutrition 06/19/22 Sarai Mas, ophthalmic aideRn Hemodialysis Charge 02/24/23 Clare Baez DO [address] [place] [address] Hematology/Oncology 03/29/23 Visual And Stock Associate Relationship Specialty Start Date End Date Lidia Lopez MD [address] [place] [address] PCP - General 07/13/02 Delroy Padron MD [address] [place] [address] Primary Staff Physician Cardiology 12/06/18 Sg Julien MD [address] [place] [address]6325 [place], [place] 0378395 Transplant Physician Hematology/Oncology 05/27/21 Amanda Benito APRN.[facility] [address] [place] [address] Nurse Practitioner Blood and Marrow Transplant 05/27/21 [place] [address] [place], [place] 1209795 Specialty Cell Maker Blood and Marrow Transplant 01/15/[address] [place] [address] Registered Dietitian Nutrition 06/19/22 Sarai Mas ophthalmic aideRn Hemodialysis Charge 02/24/23 Clare Baez DO [address] [place], [place] [phone] Hematology/Oncology 03/29/23 Visual And Stock Associate Relationship Specialty Start Date End Date Lidia Lopez MD [facility] [place], [place] [id number] PCP - General 07/13/02 Delroy Padron MD [address] [place] [address] Primary Staff Physician Cardiology 12/06/18 Sg Julien MD [address] [phone] Transplant Physician Hematology/Oncology 05/27/21 Amanda Benito APRN.LEAD HOUSEKEEPER [address] [place] [address] Nurse Practitioner Blood and Marrow Transplant 05/27/21 [place] [address] [place], [place] 6017595 Specialty Cell Maker Blood and Marrow Transplant 01/15/[address] [place], [place] 80070691 Registered Dietitian Nutrition 06/19/22 Sarai Mas, ophthalmic aideRn Hemodialysis Charge 02/24/23 Clare Baez DO [address] [place] [address] Hematology/Oncology 03/29/23 Visual And Stock Associate Relationship Specialty Start Date End Date Lidia Lopez MD [address] [place], [place] 937241 PCP - General 07/13/02 Delroy Padron MD [address] [place] [address] Primary Staff Physician Cardiology 12/06/18 Sg Julien MD [address] [phone] Transplant Physician Hematology/Oncology 05/27/21 Amanda Benito APRN.LEAD HOUSEKEEPER [address] [place] [address] Nurse Practitioner Blood and Marrow Transplant 05/27/21 [place] [address] [place], [place] 9878495 Specialty Cell Maker Blood and Marrow Transplant 01/15/[address] [place], [place] 246571 Registered Dietitian Nutrition 06/19/22 Sarai Mas, ophthalmic aideRn Hemodialysis Charge 02/24/23 Clare Baez DO [address] [place], [place] 87239691 Hematology/Oncology 03/29/23 Visual And Stock Associate Relationship Specialty Start Date End Date Lidia Lopez MD [address] [place], [place] [id number] PCP - General 07/13/02 Delroy Padron MD [address] [place] [address] Primary Staff Physician Cardiology 12/06/18 Sg Julien MD [address] 1756395 Transplant Physician Hematology/Oncology 05/27/21 Amanda Benito, ANANT.LEAD HOUSEKEEPER [address] [place] [address] Nurse Practitioner Blood and Marrow Transplant 05/27/21 Socorro Rahman RN [address] [place] [address] 7665995 Specialty Cell Maker Blood and Marrow Transplant 01/15/[address] [place], [place] 57426691 Registered Dietitian Nutrition 06/19/22 Sarai Mas RN Rn Hemodialysis Charge 02/24/23 Clare Baez DO [address] [place], [place] 134221 Hematology/Oncology 03/29/23 Visual And Stock Associate Relationship Specialty Start Date End Date Lidia Lopez MD [facility] [place], [place] [id number] PCP - General 07/13/02 Delroy Padron MD [address] [place] [address] Primary Staff Physician Cardiology 12/06/18 Sg Julien MD [address] [phone] Transplant Physician Hematology/Oncology 05/27/21 Amanda Benito APRN.LEAD HOUSEKEEPER [address] [place] [phone] Nurse Practitioner Blood and Marrow Transplant 05/27/21 [place] [address] [place], [place] 2728695 Specialty Cell Maker Blood and Marrow Transplant 01/15/[address] [place], [place] 61521691 Registered Dietitian Nutrition 06/19/22 Sarai Mas, ophthalmic aideRn Hemodialysis Charge 02/24/23 Clare Baez DO [address] [place], [place] [phone] Hematology/Oncology 03/29/23 Visual And Stock Associate Relationship Specialty Start Date End Date Lidia Lopez MD [address] [place], [place] 126251 PCP - General 07/13/02 Delroy Padron MD [address] [place], [place] 1392695 Primary Staff Physician Cardiology 12/06/18 Sg Julien MD 9500 [facility] R[address] [place], [place] 2517795 Transplant Physician Hematology/Oncology 05/27/21 Amanda Benito APRN.LEAD HOUSEKEEPER [address] [place] [address] Nurse Practitioner Blood and Marrow Transplant 05/27/21 [place] [address] [place] [address] Specialty Cell Maker Blood and Marrow Transplant 01/15/[address] [place], [place] 331811 Registered Dietitian Nutrition 06/19/22 Sarai Mas, ophthalmic aideRn Hemodialysis Charge 02/24/23 Clare Baez DO [address] [place], [place] 40369691 Hematology/Oncology 03/29/23 Visual And Stock Associate Relationship Specialty Start Date End Date Lidia Lopez MD [address] [place], [place] 441931 PCP - General 07/13/02 Delroy Padrno MD [address] [place], [place] 1478295 Primary Staff Physician Cardiology 12/06/18 Sg Julien MD [address]00 [facility] R[address] [place], [place] 1630895 Transplant Physician Hematology/Oncology 05/27/21 Amanda Benito APRN.[facility] [address] [place] [address] Nurse Practitioner Blood and Marrow Transplant 05/27/21 [place] [address] [place] [address] Specialty Cell Maker Blood and Marrow Transplant 01/15/[address] [place], [place] 816041 Registered Dietitian Nutrition 06/19/22 Sarai Mas, ophthalmic aideRn Hemodialysis Charge 02/24/23 Clare Baez DO [address] [place], [place] 36050691 Hematology/Oncology 03/29/23 Visual And Stock Associate Relationship Specialty Start Date End Date Lidia Lopez MD [address] [place] [address] PCP - General 07/13/02 Delroy Padron MD [address] [place] [address] Primary Staff Physician Cardiology 12/06/18 Sg Julien MD [address] [phone] Transplant Physician Hematology/Oncology 05/27/21 Amanda Benito APRN.LEAD HOUSEKEEPER [address] [place] [address] Nurse Practitioner Blood and Marrow Transplant 05/27/21 [place] [address] [place], [place] 9539195 Specialty Cell Maker Blood and Marrow Transplant 01/15/[address] [place], [place] 55427691 Registered Dietitian Nutrition 06/19/22 Sarai Mas, ophthalmic aideRn Hemodialysis Charge 02/24/23 Clare Baez DO [address] [place], [place] [phone] Hematology/Oncology 03/29/23 Visual And Stock Associate Relationship Specialty Start Date End Date Lidia Lopez MD [facility]0 [place], [place] 850081 PCP - General 07/13/02 Delroy Padron MD [address] [place] [address] Primary Staff Physician Cardiology 12/06/18 Sg Julien MD [address] [address] Transplant Physician Hematology/Oncology 05/27/21 Amanda Benito APRN.LEAD HOUSEKEEPER [address] [place] [phone] Nurse Practitioner Blood and Marrow Transplant 05/27/21 [place] [address] [place], [place] 1237695 Specialty Cell Maker Blood and Marrow Transplant 01/15/[address] [place], [place] 19146691 Registered Dietitian Nutrition 06/19/22 Sarai Mas ophthalmic aideRn Hemodialysis Charge 02/24/23 Clare Baez DO [address] [place] [address] Hematology/Oncology 03/29/23 Visual And Stock Associate Relationship Specialty Start Date End Date Lidia Lopez MD [address] [place], [place] 776351 PCP - General 07/13/02 Delroy Padron MD [address] [place] 3497695 Primary Staff Physician Cardiology 12/06/18 Sg Julien MD 9500 [facility] [place] [address] Transplant Physician Hematology/Oncology 05/27/21 Amanda Benito APRN.LEAD HOUSEKEEPER [address] [place] [phone] Nurse Practitioner Blood and Marrow Transplant 05/27/21 [place] [address] [place], [place] 7754195 Specialty Cell Maker Blood and Marrow Transplant 01/15/[address] [place], [place] [phone] Registered Dietitian Nutrition 06/19/22 Sarai Mas, ophthalmic aideRn Hemodialysis Charge 02/24/23 Clare Baez DO [address] [place], [place] [id number] Hematology/Oncology 03/29/23 Visual And Stock Associate Relationship Specialty Start Date End Date Lidia Lopez MD [facility] [place], [place] [id number] PCP - General 07/13/02 Delroy Padron MD [address] [place] [address] Primary Staff Physician Cardiology 12/06/18 Sg Julien MD [address] [place] 306325 [place] [address] Transplant Physician Hematology/Oncology 05/27/21 Amanda Benito APRN.LEAD HOUSEKEEPER [address] [place] [address] Nurse Practitioner Blood and Marrow Transplant 05/27/21 [place] [address] [place] [address] Specialty Cell Maker Blood and Marrow Transplant 01/15/[address] [place] [address] Registered Dietitian Nutrition 06/19/22 Sarai Mas, ophthalmic aideRn Hemodialysis Charge 02/24/23 Clare Baez DO [address] [place] 107121 Hematology/Oncology 03/29/23 Visual And Stock Associate Relationship Specialty Start Date End Date Lidia Lopez MD 1740 [facility], [place] 13829691 PCP - General 07/13/02 Delroy Padron MD [address] [place], [place] 8956595 Primary Staff Physician Cardiology 12/06/18 Sg Julien MD 9500 [facility] R[address] [place], [place] 4924895 Transplant Physician Hematology/Oncology 05/27/21 Amanda Benito APRN.[facility] [address] [place] [address] Nurse Practitioner Blood and Marrow Transplant 05/27/21 [place] [address] [place] [address] Specialty Cell Maker Blood and Marrow Transplant 01/15/[address] [place] 19[address] Registered Dietitian Nutrition 06/19/22 Sarai Mas, ophthalmic aideRn Hemodialysis Charge 02/24/23 Clare Baez DO [address] [place], [place] 913611 Hematology/Oncology 03/29/23 Visual And Stock Associate Relationship Specialty Start Date End Date Lidia Lopez MD [address]40 [place], [place] 846201 PCP - General 07/13/02 Delroy Padron MD [address]00 [place] [address] Primary Staff Physician Cardiology 12/06/18 Sg Julien MD 9500 [facility] [address] [place] [address] Transplant Physician Hematology/Oncology 05/27/21 Amanda Benito APRN.LEAD HOUSEKEEPER [address] [place] [address] Nurse Practitioner Blood and Marrow Transplant 05/27/21 [place] [address] [place] [address] Specialty Cell Maker Blood and Marrow Transplant 01/15/[address] [place] [address] Registered Dietitian Nutrition 06/19/22 Sarai Mas, ophthalmic aideRn Hemodialysis Charge 02/24/23 Clare Baez DO [address] [place], [place] 909411 Hematology/Oncology 03/29/23 Visual And Stock Associate Relationship Specialty Start Date End Date Lidia Lopez MD [address]40 [place] [address] PCP - General 07/13/02 Delroy Padron MD [address]00 [place] [address] Primary Staff Physician Cardiology 12/06/18 Sg Julien MD [address] [phone] Transplant Physician Hematology/Oncology 05/27/21 Amanda Benito APRN.[facility] [address] [place] [address] Nurse Practitioner Blood and Marrow Transplant 05/27/21 [place] [address] [place], [place] 0987995 Specialty Cell Maker Blood and Marrow Transplant 01/15/[address] [place] [address] Registered Dietitian Nutrition 06/19/22 Sarai Mas, ophthalmic aideRn Hemodialysis Charge 02/24/23 Clare Baez DO [address] [facility] [place], [place] [id number] Hematology/Oncology 03/29/23 Visual And Stock Associate Relationship Specialty Start Date End Date Lidia Lopez MD [facility] [place], [place] [id number] PCP - General 07/13/02 Delroy Padron MD [address] [place] [address] Primary Staff Physician Cardiology 12/06/18 Sg Julien MD [address] [id number] Transplant Physician Hematology/Oncology 05/27/21 Amanda Benito APRN.LEAD HOUSEKEEPER [address] [place] [address] Nurse Practitioner Blood and Marrow Transplant 05/27/21 [place] [address] [place], [place] [phone] Specialty Cell Maker Blood and Marrow Transplant 01/15/[address] [place], [place] [id number] Registered Dietitian Nutrition 06/19/22 Sarai Mas, ophthalmic aideRn Hemodialysis Charge 02/24/23 Clare Baez DO [address] [place] [address] Hematology/Oncology 03/29/23 Visual And Stock Associate Relationship Specialty Start Date End Date Lidia Lopez MD [address] [place], [place] [id number] PCP - General 07/13/02 Delroy Padron MD [address] [place] [address] Primary Staff Physician Cardiology 12/06/18 Sg Julien MD [address] [id number] Transplant Physician Hematology/Oncology 05/27/21 Amanda Benito APRN.LEAD HOUSEKEEPER [address] [place] [address] Nurse Practitioner Blood and Marrow Transplant 05/27/21 [place] [address] [place], [place] 0701195 Specialty Cell Maker Blood and Marrow Transplant 01/15/22 Conchis Tucker, LOU [address] [place], [place] 055521 Registered Dietitian Nutrition 06/19/22 Sarai Mas RN Rn Hemodialysis Charge 02/24/23 Clare aBez DO [address] [place], [place] [id number] Hematology/Oncology 03/29/23 Visual And Stock Associate Relationship Specialty Start Date End Date Lidia Lopez MD [address] [place], [place] [id number] PCP - General 07/13/02 Delroy Padron MD [address] [place] [address] Primary Staff Physician Cardiology 12/06/18 Sg Julien MD [address] [phone] Transplant Physician Hematology/Oncology 05/27/21 Amanda Benito, ANESTHESIA ATTENDING.LEAD HOUSEKEEPER [address] [place] [address] Nurse Practitioner Blood and Marrow Transplant 05/27/21 Socorro Rahman RN [address] [place] [address] [phone] Specialty Cell Maker Blood and Marrow Transplant 01/15/[address] [place], [place] [phone] Registered Dietitian Nutrition 06/19/22 Sarai Mas RN Rn Hemodialysis Charge 02/24/23 Clare Baez DO [address] [place], [place] [id number] Hematology/Oncology 03/29/23 Visual And Stock Associate Relationship Specialty Start Date End Date Lidia Lopez MD [facility] [place], [place] [id number] PCP - General 07/13/02 Delroy Padron MD [address] [place] [address] Primary Staff Physician Cardiology 12/06/18 Sg Julien MD [address] [phone] Transplant Physician Hematology/Oncology 05/27/21 Amanda Benito APRN.LEAD HOUSEKEEPER [address] [place] [phone] Nurse Practitioner Blood and Marrow Transplant 05/27/21 [place] [address] [place], [place] [phone] Specialty Cell Maker Blood and Marrow Transplant 01/15/[address] [place], [place] [phone] Registered Dietitian Nutrition 06/19/22 Sarai Mas, ophthalmic aideRn Hemodialysis Charge 02/24/23 Clare Baez DO [address] [place] [address] Hematology/Oncology 03/29/23 Visual And Stock Associate Relationship Specialty Start Date End Date Lidia Lopez MD [address] [place], [place] 457951 PCP - General 07/13/02 Rowan Nobles [facility] [address] [place], [place] 4455695 Home Paraprofessional Blood and Marrow Transplant 10/05/14 06/17/21 Madelyn Meade RN [address] [address] Specialty Cell Maker Blood and Marrow Transplant 12/11/14 03/19/22 Raghav Joe MD [address] [place], [place] [phone] Physician Blood and Marrow Transplant 03/03/17 05/26/21 Delroy Padron MD [address] [place] [address] Primary Staff Physician Cardiology 12/06/18 Shahla Mohamud, ophthalmic aideRn Hemodialysis Charge Internal Medicine 11/13/20 07/19/22 Visual And Stock Associate Relationship Specialty Start Date End Date Lidia Lopez MD [address] [place] [address] PCP - General 07/13/02 Rowan Nobles [facility] [address] [place] [address] Home Paraprofessional Blood and Marrow Transplant 10/05/14 06/17/21 Madelyn Meade RN [address] [address] Specialty Cell Maker Blood and Marrow Transplant 12/11/14 03/19/22 Delroy Padron MD [address] [place] [address] Primary Staff Physician Cardiology 12/06/18 Shahla Mohamud RN Rn Hemodialysis Charge Internal Medicine 11/13/20 07/19/22 Sg Julien MD [address] [phone] Transplant Physician Hematology/Oncology 05/27/21 Amanda Benito APRN.LEAD HOUSEKEEPER [address] [place] [address] Nurse Practitioner Blood and Marrow Transplant 05/27/21 Visual And Stock Associate Relationship Specialty Start Date End Date Lidia Lopez MD [address] [place] [address] PCP - General 07/13/02 Delroy Padron MD [address] [place] [address] Primary Staff Physician Cardiology 12/06/18 Sg Julien MD [address] [phone] Transplant Physician Hematology/Oncology 05/27/21 Amanda Benito APRN.LEAD HOUSEKEEPER [address] [place] [address] Nurse Practitioner Blood and Marrow Transplant 05/27/21 [place] [address] [place], [place] 2388595 Specialty Cell Maker Blood and Marrow Transplant 01/15/[address] [place], [place] [phone] Registered Dietitian Nutrition 06/19/22 Sarai Mas, ophthalmic aideRn Hemodialysis Charge 02/24/23 Clare Baez DO [address] [place], [place] 10977691 Hematology/Oncology 03/29/23 Visual And Stock Associate Relationship Specialty Start Date End Date Lidia Lopez MD [facility]0 [place], [place] [id number] PCP - General 07/13/02 Delroy Padron MD [address] [place] [address] Primary Staff Physician Cardiology 12/06/18 Sg Julien MD [address] [place] 306325 [place] [address] Transplant Physician Hematology/Oncology 05/27/21 Amanda Bneito APRN.LEAD HOUSEKEEPER [address] [place] [address] Nurse Practitioner Blood and Marrow Transplant 05/27/21 [place] [address] [place] [address] Specialty Cell Maker Blood and Marrow Transplant 01/15/[address] [place] [address] Registered Dietitian Nutrition 06/19/22 Sarai Mas, ophthalmic aideRn Hemodialysis Charge 02/24/23 Clare Baez DO [address] [place] 165381 Hematology/Oncology 03/29/23 Visual And Stock Associate Relationship Specialty Start Date End Date Lidia Lopez MD [address] [facility] [place] [id number] PCP - General 07/13/02 Delroy Padron MD [address] [place], [place] 6686395 Primary Staff Physician Cardiology 12/06/18 Sg Julien MD [address] [facility] [address] [place], [place] 5030195 Transplant Physician Hematology/Oncology 05/27/21 Amanda Benito APRN.[facility] [address] [place] [address] Nurse Practitioner Blood and Marrow Transplant 05/27/21 [place] [address] [place] [address] Specialty Cell Maker Blood and Marrow Transplant 01/15/[address] [place] [place] 055641 Registered Dietitian Nutrition 06/19/22 Sarai Mas, ophthalmic aideRn Hemodialysis Charge 02/24/23 Clare Baez DO [address] [place], [place] 950601 Hematology/Oncology 03/29/23 Visual And Stock Associate Relationship Specialty Start Date End Date Lidia Lopez MD [address] [place], [place] 339251 PCP - General 07/13/02 Delroy Padron MD [address] [place] [address] Primary Staff Physician Cardiology 12/06/18 Sg Julien MD [address] [facility] [address] [place] [address] Transplant Physician Hematology/Oncology 05/27/21 Amanda Benito APRN.LEAD HOUSEKEEPER [address] [place] [address] Nurse Practitioner Blood and Marrow Transplant 05/27/21 [place] [address] [place] [address] Specialty Cell Maker Blood and Marrow Transplant 01/15/[address] [place] [address] Registered Dietitian Nutrition 06/19/22 Sarai Mas, ophthalmic aideRn Hemodialysis Charge 02/24/23 Clare Baez DO [address] [place], [place] 819451 Hematology/Oncology 03/29/23 Visual And Stock Associate Relationship Specialty Start Date End Date Lidia Lopez MD [address] [place] [address] PCP - General 07/13/02 Delroy Padron MD [address] [place], [place] 3969495 Primary Staff Physician Cardiology 12/06/18 Sg Julien MD [address] [place] 306325 [place], [place] 4127995 Transplant Physician Hematology/Oncology 05/27/21 Amanda Benito, ANESTHESIA ATTENDING.LEAD HOUSEKEEPER [address] [place] [address] Nurse Practitioner Blood and Marrow Transplant 05/27/21 [place] [address] [place], [place] 3820195 Specialty Cell Maker Blood and Marrow Transplant 01/15/[address] [place] [address] Registered Dietitian Nutrition 06/19/22 Sarai Mas, ophthalmic aideRn Hemodialysis Charge 02/24/23 Clare Baez DO [address] [place] [address] Hematology/Oncology 03/29/23 Selina Driscoll, ANESTHESIA ATTENDING.BIG DATA HADOOP DEVELOPER [facility] [place] [address] [facility] Internal Medicine 08/28/24 Param Vizcaino ANESTHESIA ATTENDING.LEAD HOUSEKEEPER [address] [place], [place] [phone] Associate Professor Of Literature Internal Medicine 08/28/24 Visual And Stock Associate Relationship Specialty Start Date End Date Lidia Lopez MD [address] [place], [place] [id number] PCP - General 07/13/02 Delroy Padron MD [address] [place], [place] 1856095 Primary Staff Physician Cardiology 12/06/18 Sg Julien MD [address] [facility] [address] [place], [place] [phone] Transplant Physician Hematology/Oncology 05/27/21 Amanda Benito APRN.LEAD HOUSEKEEPER [address] [place] [address] Nurse Practitioner Blood and Marrow Transplant 05/27/21 [place] [address] [place], [place] 8581995 Specialty Cell Maker Blood and Marrow Transplant 01/15/22 Conchis Tucker, LOU [address] [place] [address] Registered Dietitian Nutrition 06/19/22 Sarai Mas, ophthalmic aideRn Hemodialysis Charge 02/24/23 Clare Baez DO [address] [place], [place] [phone] Hematology/Oncology 03/29/23 Selina Driscoll APRN.BIG DATA HADOOP DEVELOPER [address] [place] [address] Associate Professor Of Literature Internal Medicine 08/28/24 Param Vizcaino APRN.LEAD HOUSEKEEPER [address] [place], [place] 365111 Associate Professor Of Literature Internal Medicine 08/28/24 Visual And Stock Associate Relationship Specialty Start Date End Date Lidia Lopez MD [address] [place], [place] 798651 PCP - General 07/13/02 Delroy Padron MD [address] [place] [address] Primary Staff Physician Cardiology 12/06/18 Sg Julien MD [address] [place] 306325 [place] [address] Transplant Physician Hematology/Oncology 05/27/21 Amanda Benito APRN.LEAD HOUSEKEEPER [address] [place] [address] Nurse Practitioner Blood and Marrow Transplant 05/27/21 [place] [address] [place] [address] Specialty Cell Maker Blood and Marrow Transplant 01/15/[address] [place], [place] 63889691 Registered Dietitian Nutrition 06/19/22 Sarai Mas, ophthalmic aideRn Hemodialysis Charge 02/24/23 Clare Baez DO [address] [place], [place] [phone] Hematology/Oncology 03/29/23 Selina Driscoll APRN.BIG DATA HADOOP DEVELOPER [facility] [place], [place] 59095691 Associate Professor Of Literature Internal Medicine 08/28/24 Param Vizcaino APRN.LEAD HOUSEKEEPER [address] [place], [place] [phone] Associate Professor Of Literature Internal Medicine 08/28/24 Visual And Stock Associate Relationship Specialty Start Date End Date Lidia Lopez MD [address] [place], [place] [id number] PCP - General 07/13/02 Delroy Padron MD [address] [place] [address] Primary Staff Physician Cardiology 12/06/18 Sg Julien MD [address] [place] 306325 [place] [address] Transplant Physician Hematology/Oncology 05/27/21 Amanda Benito APRN.LEAD HOUSEKEEPER [address] [place], [place] 2802106 Nurse Practitioner Blood and Marrow Transplant 05/27/21 [place] [address] [place], [place] 7490295 Specialty Cell Maker Blood and Marrow Transplant 01/15/[address] [facility] [place] 96011691 Registered Dietitian Nutrition 06/19/22 Sarai Mas, ophthalmic aideRn Hemodialysis Charge 02/24/23 Clare Baez DO [address] [facility] [place], [place] 94128691 Hematology/Oncology 03/29/23 Selina Driscoll, ANESTHESIA ATTENDING.BIG DATA HADOOP DEVELOPER [address] [place], [place] 072961 Associate Professor Of Literature Internal Medicine 08/28/24 Param Vizcaino ANESTHESIA ATTENDING.LEAD HOUSEKEEPER [address] [place], [place] 51832691 [facility] Internal Medicine 08/28/24 Visual And Stock Associate Relationship Specialty [place] [address] [place] [address] [id number] PCP - General 07/13/02 Delroy Padron MD [address] [place], [place] 3581695 Primary Staff Physician Cardiology 12/06/18 Sg Julien MD [address] [place] 306325 [place], [place] 3654495 Transplant Physician Hematology/Oncology 05/27/21 Amanda Benito, ANESTHESIA ATTENDING.LEAD HOUSEKEEPER [address] [place] [address] Nurse Practitioner Blood and Marrow Transplant 05/27/21 [place] [address] [place] [address] Specialty Cell Maker Blood and Marrow Transplant 01/15/[address] [facility] [place] 991661 Registered Dietitian Nutrition 06/19/22 Sarai Mas RN Rn Hemodialysis Charge 02/24/23 Clare Baez DO [address] [place], [place] 118641 Hematology/Oncology 03/29/23 Selina Driscoll, ANESTHESIA ATTENDING.BIG DATA HADOOP DEVELOPER [address] [place], [place] 800701 Associate Professor Of Literature Internal Medicine 08/28/24 Param Vizcaino, ANESTHESIA ATTENDING.LEAD HOUSEKEEPER [address] [place], [place] 095161 Associate Professor Of Literature Internal Medicine 08/28/24 Visual And Stock Associate Relationship Specialty Start Date End Date Lidia Lopez MD [address] [place] [address] [id number] PCP - General 07/13/02 Delroy Padron MD [address] [place] [address] Primary Staff Physician Cardiology 12/06/18 Sg Julien MD [address] 1494295 Transplant Physician Hematology/Oncology 05/27/21 Amanda Benito, ANESTHESIA ATTENDING.LEAD HOUSEKEEPER [address] [place] [address] Nurse Practitioner Blood and Marrow Transplant 05/27/21 [place] [address] [place], [place] 1633595 Specialty Cell Maker Blood and Marrow Transplant 01/15/[address] [place], [place] 31295691 Registered Dietitian Nutrition 06/19/22 Clare Baez DO [address] [place], [place] 66823691 Hematology/Oncology 03/29/23 Selina Driscoll, ANESTHESIA ATTENDING.BIG DATA HADOOP DEVELOPER [address] [place], [place] [id number] Associate Professor Of Literature Internal Medicine 08/28/24 Param Vizcaino, ANESTHESIA ATTENDING.LEAD HOUSEKEEPER [address] [place], [place] 70836691 [facility] Internal Medicine 08/28/24 Visual And Stock Associate Relationship Specialty Start Date End Date Lidia Lopez MD [address] [place] [address] [id number] PCP - General 07/13/02 Delroy Padron MD [address] [place] [address] Primary Staff Physician Cardiology 12/06/18 Sg Julien MD [address] [phone] Transplant Physician Hematology/Oncology 05/27/21 Amanda Benito, ANESTHESIA ATTENDING.LEAD HOUSEKEEPER [address] [place] [address] Nurse Practitioner Blood and Marrow Transplant 05/27/21 [place] [address] [place] [address] Specialty Cell Maker Blood and Marrow Transplant 01/15/[address] [place], [place] [phone] Registered Dietitian Nutrition 06/19/22 Clare Baez DO [address] [place], [place] 57174691 Hematology/Oncology 03/29/23 Selina Driscoll, ANESTHESIA ATTENDING.BIG DATA HADOOP DEVELOPER [address] [place] [address] [id number] Associate Professor Of Literature Internal Medicine 08/28/24 Param Vizcaino ANESTHESIA ATTENDING.LEAD HOUSEKEEPER [address] [place] [address] [facility] Internal Medicine 08/28/24 Visual And Stock Associate Relationship Specialty Start Date End Date Lidia Lopez MD [address] [place] [address] [id number] PCP - General 07/13/02 Delroy Padron MD [address] [place] [address] Primary Staff Physician Cardiology 12/06/18 Sg Julien MD [address] [address] Transplant Physician Hematology/Oncology 05/27/21 Amanda Benito, ANESTHESIA ATTENDING.LEAD HOUSEKEEPER [address] [place] [address] Nurse Practitioner Blood and Marrow Transplant 05/27/21 [place] [address] [place] [address] Specialty Cell Maker Blood and Marrow Transplant 01/15/[address] [place], [place] 265481 Registered Dietitian Nutrition 06/19/22 Clare Baez DO [address] [place], [place] 166921 Hematology/Oncology 03/29/23 Selina Driscoll APRN.BIG DATA HADOOP DEVELOPER [facility] [place], [place] 505011 Associate Professor Of Literature Internal Medicine 08/28/24 Param Vizcaino APRN.LEAD HOUSEKEEPER [address] [place], [place] 306151 Associate Professor Of Literature Internal Medicine 08/28/24 Visual And Stock Associate Relationship Specialty Start Date End Date Lidia Lopez MD [address] [place] [address] [id number] PCP - General 07/13/02 Delroy Padron MD [address] [place] [address] Primary Staff Physician Cardiology 12/06/18 Sg Julien MD [address] [phone] Transplant Physician Hematology/Oncology 05/27/21 Amanda Benito APRN.LEAD HOUSEKEEPER [address] [place] [address] Nurse Practitioner Blood and Marrow Transplant 05/27/21 [place] [address] [place], [place] 7674995 Specialty Cell Maker Blood and Marrow Transplant 01/15/22 Conchis Tucker, RD [address] [place], [place] 23275691 Registered Dietitian Nutrition 06/19/22 Clare Baez DO [address] [place], [place] 36885691 Hematology/Oncology 03/29/23 Selina Driscoll, ANESTHESIA ATTENDING.BIG DATA HADOOP DEVELOPER [address] [place], [place] [phone] Associate Professor Of Literature Internal Medicine 08/28/24 Param Vizcaino, ANESTHESIA ATTENDING.LEAD HOUSEKEEPER [address] [place], [place] [id number] Associate Professor Of Literature Internal Medicine 08/28/24 Visual And Stock Associate Relationship Specialty Start Date End Date Lidia Lopez MD [address] [place], [place] [id number] PCP - General 07/13/02 Delroy Padron MD [address] [place] [address] Primary Staff Physician Cardiology 12/06/18 Sg Julien MD [address] [address] Transplant Physician Hematology/Oncology 05/27/21 Amanda Benito, ANESTHESIA ATTENDING.LEAD HOUSEKEEPER [address] [place] [address] Nurse Practitioner Blood and Marrow Transplant 05/27/21 [place] [address] [place] [address] Specialty Cell Maker Blood and Marrow Transplant 01/15/22 Conchis Tucker, LOU [address] [place] [place] [place], [place] 528311 Registered Dietitian Nutrition 06/19/22 Clare Baez DO [address] [place] [place], [place] 558161 Hematology/Oncology 03/29/23 Selina Driscoll, ANESTHESIA ATTENDING.BIG DATA HADOOP DEVELOPER [address] [place], [place] [id number] Associate Professor Of Literature Internal Medicine 08/28/24 Param Vizcaino, ANESTHESIA ATTENDING.LEAD HOUSEKEEPER [address] [place], [place] [phone] Associate Professor Of Literature Internal Medicine 08/28/24 Visual And Stock Associate Relationship Specialty Start Date End Date Lidia Lopez MD [address] [place], [place] [id number] PCP - General 07/13/02 Delroy Padron MD [address] [place] [address] Primary Staff Physician Cardiology 12/06/18 Sg Julien MD [address] [facility] [place] [address] Transplant Physician Hematology/Oncology 05/27/21 Amanda Benito, ANESTHESIA ATTENDING.LEAD HOUSEKEEPER [address] [place] [address] Nurse Practitioner Blood and Marrow Transplant 05/27/21 [place] [address] [place], [place] 2130995 Specialty Cell Maker Blood and Marrow Transplant 01/15/[address] [place], [place] 700291 Registered Dietitian Nutrition 06/19/22 Clare Baez DO [address] [place], [place] 381861 Hematology/Oncology 03/29/23 Selina Driscoll APRN.BIG DATA HADOOP DEVELOPER [address] [place], [place] [id number] Associate Professor Of Literature Internal Medicine 08/28/24 Visual And Stock Associate Relationship Specialty Start Date End Date Lidia Lopez MD [address]40 [place], [place] 001271 PCP - General 07/13/02 Delroy Padron MD [address] [place] [address] Primary Staff Physician Cardiology 12/06/18 Sg Julien MD [address] [address] Transplant Physician Hematology/Oncology 05/27/21 Amanda Benito, ANESTHESIA ATTENDING.LEAD HOUSEKEEPER [address] [place] [address] Nurse Practitioner Blood and Marrow Transplant 05/27/21 [place] [address] [place] [address] Specialty Cell Maker Blood and Marrow Transplant 01/15/22 Conchis Tucker, RD [address] [place], [place] 17483691 Registered Dietitian Nutrition 06/19/22 Clare Baez DO [address] [place], [place] 65185691 Hematology/Oncology 03/29/23 Selina Driscoll, ANESTHESIA ATTENDING.BIG DATA HADOOP DEVELOPER [address] [place], [place] [id number] Associate Professor Of Literature Internal Medicine 08/28/24 Param Vizcaino ANESTHESIA ATTENDING.LEAD HOUSEKEEPER [address] [place], [place] [phone] [facility] Internal Medicine 12/12/24 Visual And Stock Associate Relationship Specialty Start Date End Date Lidia Lopez MD [address] [place], [place] [id number] PCP - General 07/13/02 Delroy Padron MD [address] [place] [address] Primary Staff Physician Cardiology 12/06/18 Sg Julien MD [address] [place] [address]63[address] [place] [address] Transplant Physician Hematology/Oncology 05/27/21 Amanda Benito, ANESTHESIA ATTENDING.LEAD HOUSEKEEPER [address] [place] [address] Nurse Practitioner Blood and Marrow Transplant 05/27/21 Socorro [place] [address] [place] [address] Specialty Cell Maker Blood and Marrow Transplant 01/15/22 Conchis Tucker, LOU [address] [place] [address] Registered Dietitian Nutrition 06/19/22 Clare Baez DO [address] [place] 345761 Hematology/Oncology 03/29/23 Selina Driscoll, ANESTHESIA ATTENDING.BIG DATA HADOOP DEVELOPER [address] [place], [place] [id number] Associate Professor Of Literature Internal Medicine 08/28/24 Param Vizcaino, ANESTHESIA ATTENDING.LEAD HOUSEKEEPER [address] [place] [address] Associate Professor Of Literature Internal Medicine 12/12/24 Visual And Stock Associate Relationship Specialty Start Date End Date Lidia Lopez MD [address] [place], [place] [id number] PCP - General 07/13/02 Delroy Padron MD [address] [place] [address] Primary Staff Physician Cardiology 12/06/18 Sg Julien MD [address] [facility] [place] [address] Transplant Physician Hematology/Oncology 05/27/21 Amanda Benito, ANESTHESIA ATTENDING.LEAD HOUSEKEEPER [address] [place] [address] Nurse Practitioner Blood and Marrow Transplant 05/27/21 [place] [address] [place] [address] Specialty Cell Maker Blood and Marrow Transplant 01/15/22 Conchis Tucker, RD [address] [place], [place] 372051 Registered Dietitian Nutrition 06/19/22 Clare Baez DO [address] [facility] [place] 23088691 Hematology/Oncology 03/29/23 Selina Driscoll, ANESTHESIA ATTENDING.BIG DATA HADOOP DEVELOPER [address] [place], [place] 864541 Associate Professor Of Literature Internal Medicine 08/28/24 Param Vizcaino, ANESTHESIA ATTENDING.LEAD HOUSEKEEPER [address] [place], [place] 674051 Associate Professor Of Literature Internal Medicine 12/12/24 Visual And Stock Associate Relationship Specialty Start Date End Date Lidia Lopez MD [address] [place], [place] 039821 PCP - General 07/13/02 Delroy Padron MD [address] [place] [address] Primary Staff Physician Cardiology 12/06/18 Sg Julien MD [address] [id number] Transplant Physician Hematology/Oncology 05/27/21 Amanda Benito, ANESTHESIA ATTENDING.LEAD HOUSEKEEPER [address] [place] [id number] Nurse Practitioner Blood and Marrow Transplant 05/27/21 [place] [address] [place] [address] Specialty Cell Maker Blood and Marrow Transplant 01/15/22 Conchis Tucker, LOU [address] [facility] [place], [place] [id number] Registered Dietitian Nutrition 06/19/22 Clare Baez DO [address] [facility] [place] 34941691 Hematology/Oncology 03/29/23 Selina Driscoll APRN.BIG DATA HADOOP DEVELOPER [address] [place], [place] [id number] Associate Professor Of Literature Internal Medicine 08/28/24 Param Vizcaino ANESTHESIA ATTENDING.LEAD HOUSEKEEPER [address] [place], [place] [id number] Associate Professor Of Literature Internal Medicine 12/12/24 Visual And Stock Associate Relationship Specialty Start Date End Date Lidia Lopez MD [address]40 [place] [address] PCP - General 07/13/02 Delroy Padron MD [address] [place] [address] Primary Staff Physician Cardiology 12/06/18 Sg Julien MD [address] [address] [place] [address] Transplant Physician Hematology/Oncology 05/27/21 Amanda Benito, ANESTHESIA ATTENDING.LEAD HOUSEKEEPER [address] [place] [address] Nurse Practitioner Blood and Marrow Transplant 05/27/21 [place] [address] [place] [address] Specialty Cell Maker Blood and Marrow Transplant 01/15/22 Conchis Tucker, LOU [address] [place] [address] Registered Dietitian Nutrition 06/19/22 Clare Baez DO [address] [place] [address] Hematology/Oncology 03/29/23 Param Vizcaino, ANESTHESIA ATTENDING.LEAD HOUSEKEEPER [address] [place] [address] Associate Professor Of Literature Internal Medicine 12/12/24 Selina Driscoll APRN.BIG DATA HADOOP DEVELOPER [address] [place] [address] Associate Professor Of Literature Internal Medicine 02/07/25 Visual And Stock Associate Relationship Specialty Start Date End Date Lidia Lopez MD [address] [place] [address] PCP - General 07/13/02 Delroy Padron MD [address] [place] [address] Primary Staff Physician Cardiology 12/06/18 Sg Julien MD [address] [address] Transplant Physician Hematology/Oncology 05/27/21 Amanda Benito, ANESTHESIA ATTENDING.LEAD HOUSEKEEPER [address] [place] [address] Nurse Practitioner Blood and Marrow Transplant 05/27/21 [place] [address] [place], [place] [id number] Specialty Cell Maker Blood and Marrow Transplant 01/15/22 Conchis Tucker, LOU [address] [place], [place] [address]2391 Registered Dietitian Nutrition 06/19/22 Clare Baez DO [address] [place], [place] [address] Hematology/Oncology 03/29/23 Param Vizcaino, ANESTHESIA ATTENDING.LEAD HOUSEKEEPER [address] [place] [address] Associate Professor Of Literature Internal Medicine 12/12/24 Selina Driscoll, ANESTHESIA ATTENDING.BIG DATA HADOOP DEVELOPER [address] [place] [address] Associate Professor Of Literature Internal Medicine 02/07/25 Visual And Stock Associate Relationship Specialty Start Date End Date Lidia Lopez MD [address] [place] [address] PCP - General 07/13/02 Delroy Padron MD [address] [place] [address] Primary Staff Physician Cardiology 12/06/18 Sg Julien MD [address] [id number] Transplant Physician Hematology/Oncology 05/27/21 Amanda Benito, ANESTHESIA ATTENDING.LEAD HOUSEKEEPER [address] [place] [address] Nurse Practitioner Blood and Marrow Transplant 05/27/21 [place] [address] [place], [place] [id number] Specialty Cell Maker Blood and Marrow Transplant 01/15/[address] [facility] [place] [place] [id number] Registered Dietitian Nutrition 06/19/22 Clare Baez DO [address] [place] [id number] Hematology/Oncology 03/29/23 Param Vizcaino, ANESTHESIA ATTENDING.LEAD HOUSEKEEPER [address] [place] [address] Associate Professor Of Literature Internal Medicine 12/12/24 Selina Driscoll, ANESTHESIA ATTENDING.BIG DATA HADOOP DEVELOPER [address] [place] [address] Associate Professor Of Literature Internal Medicine 02/07/25 Visual And Stock Associate Relationship Specialty Start Date End Date Lidia Lopez MD [address] [place] [address] PCP - General 07/13/02 Delroy Padron MD [address] [place] [address] Primary Staff Physician Cardiology 12/06/18 Sg Julien MD [address] [place], [place] [id number] Transplant Physician Hematology/Oncology 05/27/21 Amanda Benito, ANESTHESIA ATTENDING.LEAD HOUSEKEEPER [address] [place] [address] Nurse Practitioner Blood and Marrow Transplant 05/27/21 [place] [address] [place] [address] Specialty Cell Maker Blood and Marrow Transplant 01/15/[address] [place] [address] Registered Dietitian Nutrition 06/19/22 Clare Baez DO [address] [place] [address] Hematology/Oncology 03/29/23 Param Vizcaino, ANESTHESIA ATTENDING.LEAD HOUSEKEEPER [address] [place] [address] Associate Professor Of Literature Internal Medicine 12/12/24 Selina Driscoll, ANESTHESIA ATTENDING.BIG DATA HADOOP DEVELOPER [address] [place] [address] Associate Professor Of Literature Internal Medicine 02/07/25 Visual And Stock Associate Relationship Specialty Start Date End Date Lidia Lopez MD [address] [place] [address] PCP - General 07/13/02 Delroy Padron MD [address] [place], [place] [id number] Primary Staff Physician Cardiology 12/06/18 Sg Julien MD [address] [place] [address] Transplant Physician Hematology/Oncology 05/27/21 Amanda Benito, ANESTHESIA ATTENDING.LEAD HOUSEKEEPER [address] [place] [address] Nurse Practitioner Blood and Marrow Transplant 05/27/21 [place] [address] [place], [place] [id number] Specialty Cell Maker Blood and Marrow Transplant 01/15/[address] [place] [address] Registered Dietitian Nutrition 06/19/22 Clare Baez DO [address] [place] [address] Hematology/Oncology 03/29/23 Param Vizcaino, ANESTHESIA ATTENDING.LEAD HOUSEKEEPER [address] [place] [address] Associate Professor Of Literature Internal Medicine 12/12/24 Selina Driscoll, ANESTHESIA ATTENDING.BIG DATA HADOOP DEVELOPER [address] [place] [address] Associate Professor Of Literature Internal Medicine 02/07/25 Visual And Stock Associate Relationship Specialty Start Date End Date Lidia Lopez MD [address] [place] [address] PCP - General 07/13/02 Delroy Padron MD [address] [place] [place] [address] Primary Staff Physician Cardiology 12/06/18 Sg Julien MD [address] [place], [place] [id number] Transplant Physician Hematology/Oncology 05/27/21 Amanda Benito, ANESTHESIA ATTENDING.LEAD HOUSEKEEPER [address] [place] [id number] Nurse Practitioner Blood and Marrow Transplant 05/27/21 [place] [address] [place], [place] [id number] Specialty Cell Maker Blood and Marrow Transplant 01/15/[address] [place] [id number] Registered Dietitian Nutrition 06/19/22 Clare Baez DO [address] [place], [place] [address] Hematology/Oncology 03/29/23 Param Vizcaino, ANESTHESIA ATTENDING.LEAD HOUSEKEEPER [address] [place] [address] Associate Professor Of Literature Internal Medicine 12/12/24 Selina Driscoll, ANESTHESIA ATTENDING.BIG DATA HADOOP DEVELOPER [address] [place] [address] Associate Professor Of Literature Internal Medicine 02/07/25 Visual And Stock Associate Relationship Specialty Start Date End Date Lidia Lopez MD [address] [place] [address] PCP - General 07/13/02 Delroy Padron MD [address] [place] [address] Primary Staff Physician Cardiology 12/06/18 Sg Julien MD [address] [facility] [address] [place], [place] [id number] Transplant Physician Hematology/Oncology 05/27/21 Amanda Benito, ANESTHESIA ATTENDING.LEAD HOUSEKEEPER [address] [place] [address] Nurse Practitioner Blood and Marrow Transplant 05/27/21 [place] [address] [place], [place] [id number] Specialty Cell Maker Blood and Marrow Transplant 01/15/[address] [place] [address] Registered Dietitian Nutrition 06/19/22 Clare Baez DO [address] [place] [address] Hematology/Oncology 03/29/23 Param Vizcaino, ANESTHESIA ATTENDING.LEAD HOUSEKEEPER [address] [place] [address] Associate Professor Of Literature Internal Medicine 12/12/24 Selina Driscoll, ANESTHESIA ATTENDING.BIG DATA HADOOP DEVELOPER [address] [place] [address] Associate Professor Of Literature Internal Medicine 02/07/25 Visual And Stock Associate Relationship Specialty Start Date End Date Lidia Lopez MD [address] [place] [address] PCP - General 07/13/02 Delroy Padron MD [address] [place], [place] 5039[address] Primary Staff Physician Cardiology 12/06/18 Sg Julien MD [address] [facility] [address] [place], [place] [id number] Transplant Physician Hematology/Oncology 05/27/21 Amanda Benito, ANESTHESIA ATTENDING.LEAD HOUSEKEEPER [address] [place] [address] Nurse Practitioner Blood and Marrow Transplant 05/27/21 [place] [address] [place], [place] [id number] Specialty Cell Maker Blood and Marrow Transplant 01/15/[address] [place], [place] [id number] Registered Dietitian Nutrition 06/19/22 Clare Baez DO [address] [place], [place] [id number] Hematology/Oncology 03/29/23 Param Vizcaino, ANESTHESIA ATTENDING.LEAD HOUSEKEEPER [address] [place] [address] Associate Professor Of Literature Internal Medicine 12/12/24 Selina Driscoll, ANESTHESIA ATTENDING.BIG DATA HADOOP DEVELOPER [address] [place] [address] Associate Professor Of Literature Internal Medicine 02/07/25 Visual And Stock Associate Relationship Specialty Start Date End Date Lidia Lopez MD [address] [place] [address] PCP - General 07/13/02 Delroy Padron MD [address] [place] [address] Primary Staff Physician Cardiology 12/06/18 Sg Julien MD [address] [facility] [address] [place] [address] Transplant Physician Hematology/Oncology 05/27/21 Amanda Benito, ANESTHESIA ATTENDING.LEAD HOUSEKEEPER [address] [place] [address] Nurse Practitioner Blood and Marrow Transplant 05/27/21 [place] [address] [place] [address] Specialty Cell Maker Blood and Marrow Transplant 01/15/[address] [place] [id number] Registered Dietitian Nutrition 06/19/22 Clare Baez DO [address] [place] [address] Hematology/Oncology 03/29/23 Param Vizcaino, ANESTHESIA ATTENDING.LEAD HOUSEKEEPER [address] [place] [address] Associate Professor Of Literature Internal Medicine 12/12/24 Selina Driscoll, ANESTHESIA ATTENDING.BIG DATA HADOOP DEVELOPER [address] [place] [address] Associate Professor Of Literature Internal Medicine 02/07/25 Visual And Stock Associate Relationship Specialty Start Date End Date Lidia Lopez MD [address] [place], [place] [address]47891 PCP - General 07/13/02 Delroy Padron MD [address] [facility] [place] [address] Primary Staff Physician Cardiology 12/06/18 Sg Julien MD [address] [facility] [address] [place] [address] Transplant Physician Hematology/Oncology 05/27/21 Amanda Benito, ANESTHESIA ATTENDING.LEAD HOUSEKEEPER [address] [place] [address] Nurse Practitioner Blood and Marrow Transplant 05/27/21 [place] [address] [place] [address] Specialty Cell Maker Blood and Marrow Transplant 01/15/22 Conchis Tucker, LOU [address] [place] [address] Registered Dietitian Nutrition 06/19/22 Clare Baez DO [address] [place] [address] Hematology/Oncology 03/29/23 Param Vizcaino ANESTHESIA ATTENDING.LEAD HOUSEKEEPER [address] [place] [address] Associate Professor Of Literature Internal Medicine 12/12/24 Selina Driscoll, ANESTHESIA ATTENDING.BIG DATA HADOOP DEVELOPER [address] [place] [address] Associate Professor Of Literature Internal Medicine 02/07/25 Visual And Stock Associate Relationship Specialty Start Date End Date Lidia Lopez MD [address] [place], [place] 2836[address] PCP - General 07/13/02 Delroy Padron MD [address] [place], [place] 3396[address] Primary Staff Physician Cardiology 12/06/18 Sg Julien MD [address] [facility] [address] [place], [place] [id number] Transplant Physician Hematology/Oncology 05/27/21 Amanda Benito APRN.LEAD HOUSEKEEPER [address] [place] [address] Nurse Practitioner Blood and Marrow Transplant 05/27/21 [place] [address] [place], [place] 1768995 Specialty Cell Maker Blood and Marrow Transplant 01/15/[address] [place], [place] [id number] Registered Dietitian Nutrition 06/19/22 Calre Baez DO [address] [place] [address] Hematology/Oncology 03/29/23 Param Vizcaino APRN.LEAD HOUSEKEEPER [address] [place] [address] Associate Professor Of Literature Internal Medicine 12/12/24 Selina Driscoll APRN.BIG DATA HADOOP DEVELOPER [address] [place], [place] 934671 Associate Professor Of Literature Internal Medicine 02/07/25 Visual And Stock Associate Relationship Specialty Start Date End Date Lidia Lopez MD [address] [place], [place] 8823[address] PCP - General 07/13/02 Delroy Padron MD [address] [place] [address] Primary Staff Physician Cardiology 12/06/18 Sg Julien MD [address] [facility] [address] [place] [address] Transplant Physician Hematology/Oncology 05/27/21 Amanda Benito, ANANT.LEAD HOUSEKEEPER [address] [place] [address] Nurse Practitioner Blood and Marrow Transplant 05/27/21 [place] [address] [place] [address] Specialty Cell Maker Blood and Marrow Transplant 01/15/[address] [facility] [place] [place] [id number] Registered Dietitian Nutrition 06/19/22 Clare Baez DO [address] [facility] [place] [place] [id number] Hematology/Oncology 03/29/23 Param Vizcaino APRN.LEAD HOUSEKEEPER [address] [place], [place] [address] Associate Professor Of Literature Internal Medicine 12/12/24 Josué SelinaANANT phillips.BIG DATA HADOOP DEVELOPER [address] [place] [address] Associate Professor Of Literature Internal Medicine 02/07/25 Goals (unrecognized section and content) Goals may be documented in a n alternate sectionGoals may be documented in an alternate sectionGoals may be documented in an alternate sectionGoals may be documented in an alternate sectionGoals may be documented in an alternate section No data available for this sectionGoals may be documented in an alternate sectionGoals may be documented in an alternate sectionGoals may be documented in an alternate sectionGoals may be documented in an alternate section Care Team (unrecognized sect ion and content) Care Team Personnel Name: LIDIA LOPEZ MD Member Role: Primary Care Physician Address: Address: [address] [place] [address]- [place] Name: KARISHMA GUTIERREZ MD Position: ED Physician Member Role: ED Physician Address: Address: .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 0926 (Given - Provider: Gianna Daniels, MP)2054 (Given - Provider: Pamela Rodríguez RN) 0848 (Given - Provider: Lauren Gomez, MP)2138 (Given - Provider: Evelio Albarado RN) 0850 (Given - Provider: Lauren Gomez RN) azithromycin (ZITHROMAX) tablet 500 mg 500 mg, Oral, At bedtime, First dose on 08/15/22 at 2215, For 5 doses, Indication: Other (specify), Indication: bronchiectasis exacerbation 2054 (Given - Provider: Pamela Rodríguez, RN) 2138 (Given - Provider: Evelio Albarado, MP) benzonatate (TESSALON) capsule 100 mg 100 mg, Oral, 3 times daily, First dose on 08/17/22 at 1030, DO NOT CRUSH OR CHEW. 1217 (Given - Provider: Lauren Gomez RN)1638 (Given - Provider: Lauren Gomez RN)2139 (Given - Provider: Evelio Albarado RN) 0850 (Given - Provider: aLuren Gomez RN)1500 (Due) cholecalciferol (vitamin D3) tablet 2,000 Units 2,000 Units, Oral, Daily, First dose on 08/16/22 at 0900 0926 (Given - Provider: Gianna Daniels RN) 0848 (Given - Provider: Lauren Gomez RN) 0850 (Given - Provider: Lauren Gomez RN) insulin lispro (AdmeLOG,HumaLOG) injection 0-15 Units 0-15 Units, Subcutaneous, At bedtime, First dose on 08/16/22 at 2100, For Nightly Insulin Dose Coverage, use: CORRECTIVE (Only) for BG greater than 300, Nightly CORRECTIVE Dose Method: Specific Corrective Dose, Nightly Specific CORRECTIVE dose (units of insulin): 2, For Downtime Calculator, use: Insulin SC NIGHTtime 2100 (Not Given - Provider: Pamela Rodríguez RN - Reason: Order parameters not met) 2138 (Not Given - Provider: Evelio Albarado RN - Reason: Order parameters not met) insulin lispro (AdmeLOG,HumaLOG) injection 0-30 Units (CANCELED) 0-30 Units, Subcutaneous, 3 times daily before meals, First dose on 08/16/22 at 0815, Dose should be given 10-15 minutes before a meal. If poor oral intake, nausea or blood glucose value < 80 before meal, give of the dose (rounded up to nearest unit) immediately after meal completed. If patient skipping meal, hold base prandial dose and continue to use corrective insulin as ordered. Once diet resumed, total base prandial + corrective doses may be given., Prandial Insulin Dosing Method: NO Prandial Dose - Corrective Scale ONLY, Corrective Insulin Regimen (select desired scale to cover BG result): Insulin SENSITIVE Scale, For Downtime Calculator, use: Insulin SC MEALtime PREprandial 0815 (Not Given - Provider: Gianna Daniels RN - Reason: Order parameters not met)1311 (Given - Provider: Gianna Daniels RN)1734 (Given - Provider: Gianna Daniels RN) insulin lispro (AdmeLOG,HumaLOG) injection 0-30 Units 0-30 Units, Subcutaneous, 3 times daily before meals, First dose (after last modification) on 08/17/22 at 0815, Dose should be given 10-15 minutes before a meal. If poor oral intake, nausea or blood glucose value < 80 before meal, give of the dose (rounded up to nearest unit) immediately after meal completed. If patient skipping meal, hold base prandial dose and continue to use corrective insulin as ordered. Once diet resumed, total base prandial + corrective doses may be given., Prandial Insulin Dosing Method: NO Prandial Dose - Corrective Scale ONLY, Corrective Insulin Regimen (select desired scale to cover BG result): Conservative Scale, For Downtime Calculator, use: Insulin SC MEALtime PREprandial 0815 (Hold - Provider: Lauren Gomez RN - Reason: Order parameters not met - Comment: Glucose 100)1130 (Hold - Provider: Lauren Gomez RN - Reason: Order parameters not met - Comment: BS 96)1630 (Not Given - Provider: Lauren Gomez RN - Reason: Order parameters not met - Comment: BS 134) 0730 (Hold - Provider: Lauren Gomez RN - Reason: Order parameters not met - Comment: Blood glucose 77)1130 (Hold - Provider: Lauren Gomez RN - Reason: Order parameters not met - Comment: BS 105) ipratropium-albuteroL (DUO-NEB) 0.5-2.5 mg/3 ml nebulizer solution 3 mL 3 mL, Inhalation, Every 6 hours scheduled (RT), First dose on Wed08/16/22 at 0200 0137 (Given - Provider: Jolly Luz RRT)1135 (Given - Provider: Carolyn Malik, YAZAN)1613 (Given - Provider: Carolyn Malik RRT)2007 (Given - Provider: Moises Ying HAIR SPINNING MACHINE OPERATOR) 226 (Given - Provider: Moises Ying HAIR SPINNING MACHINE OPERATOR)08 (Given - Provider: Dinesh Mendosa RRT)1305 (Given - Provider: Dinesh Mendosa RRT)2033 (Given - Provider: Jolly Luz HAIR SPINNING MACHINE OPERATOR) 020 (Not Given - Provider: Jolly Luz RRT - Reason: Other)08 (Given - Provider: Dinesh Mendosa RRT)1337 (Given - Provider: Dinesh Mendosa RRT) levothyroxine (SYNTHROID, LEVOTHROID) tablet 112 mcg 112 mcg, Oral, Daily, First dose on 08/16/22 at 0600, For patients on continuous tube feed: Hold TF from 1 hr before until 1 hr after each dose. TF rate may need adjustment to meet caloric needs. 06 (Given - Provider: Daniel Laguna RN) 0611 (Given - Provider: Evelio Albarado, MP) 0558 (Given - Provider: Evelio Albarado RN) metoprolol tartrate (LOPRESSOR) tablet 25 mg 25 mg, Oral, Daily, First dose on 08/16/22 at 0900, Hold for sbp <110 or HR <60 09 (Not Given - Provider: Gianna Daniels RN - Reason: Order parameters not met) 0848 (Given - Provider: Lauren Gomez RN) 0850 (Given - Provider: Lauren Gomez RN) pantoprazole (PROTONIX) EC tablet 40 mg 40 mg, Oral, Daily, First dose on 08/16/22 at 0900, DO NOT CRUSH OR CHEW. 09 (Given - Provider: Gianna Daniels RN) 0848 (Given - Provider: Lauren Gomez RN) 0850 (Given - Provider: Lauren Gomez, MP) predniSONE (DELTASONE) tablet 40 mg 40 mg, Oral, Daily with breakfast, First dose on 08/16/22 at 0800, For 4 doses 926 (Given - Provider: Gianna Daniels RN) 0848 (Given - Provider: Lauren Gomez RN) 0850 (Given - Provider: Lauren Gomez RN) sodium chloride (PF) (NS) flush 5 mL(Linked Group 1) 5 mL, Intravenous, Every 8 hours scheduled, First dose on 08/15/22 at 2300, Saline lock 0600 (Canceled Entry - Provider: Daniel Laguna RN)1400 (Given - Provider: Gianna Daniels RN)2200 (Given - Provider: Pamela Rodríguez RN) 0612 (Given - Provider: Evelio Albarado RN)1400 (Given - Provider: Lauren Gomez, RN)2140 (Given - Provider: Evelio Albarado RN) 0559 (Given - Provider: Evelio Albarado RN)1301 (Given - Provider: Lauren Gomez RN) PRN Medication Order 08/16/2022 08/17/2022 08/18/2022 acetaminophen (TYLENOL) tablet 650 mg 650 mg, Oral, Every 4 hours PRN, mild pain, fever 100.4 F or greater, headaches, Starting on 08/15/22 at 2202 albuterol (PROVENTIL) 2.5 mg /3 mL (0.083 %) nebulizer solution 2.5 mg 2.5 mg, Nebulization, Every 4 hours PRN (RT), wheezing, Starting on 08/15/22 at 2201 dextromethorphan-guaiFENesin (ROBITUSSIN-DM) 10-100 mg/5 mL liquid 10 mL 10 mL, Oral, Every 4 hours PRN, cough, Starting on 08/17/22 at 0936 0310 (Given - Provid er: Evelio Albarado RN)1301 (Given - Provider: Lauren Gomez RN) sodium chloride (PF) (NS) flush 5 mL(Linked Group 1) 5 mL, Intravenous, As needed, line care, Starting on 08/15/22 at 2200 sodium chloride 0.9% (NS)(Linked Group 1) 0-150 mL/hr, Intravenous, As needed, To flush line after IV infusions when no maintenance IV ordered or a compatibility issue. Infuse 20ml at the same rate as the secondary infusion, Starting on 08/15/22 at 2200, Run as Primary IV. NOT intended for KVO. Linked Groups Order Group 1: Saline lock IV (CANCELED) Routine, Continuous, Starting on 08/15/22 at 2201, Until Specified And sodium chloride (PF) (NS) flush 5 mLJump to med 5 mL, Intravenous, As needed, line care, Starting on 08/15/22 at 2200 And sodium chloride (PF) (NS) flush 5 mLJump to med 5 mL, Intravenous, Every 8 hours scheduled, First dose on 08/15/22 at 2300
Saline lock
And sodium chloride 0.9% (NS)Jump to med 0-150 mL/hr, Intravenous, As needed, To flush line after IV infusions when no maintenance IV ordered or a compatibility issue. Infuse 20ml at the same rate as the secondary infusion, Starting on 08/15/22 at 2200
Run as Primary IV. NOT intended for KVO.
Administered Medications Administered Medications (un recognized section and content) Medication Order MAR Action Action Date Dose Rate Site tuberculin skin test, unspecified formulation Given 08/30/2015 0.1 ml tuberculin skin test, unspecified formulation Given 08/20/2015 0.1 ml FOR RECORDS PERTAINING TO PATIENTS WHO ARE OR HAVE BEEN ENROLLED IN A CHEMICAL DEPENDENCY/SUBSTANCEABUSE PROGRAM, SOME INFORMATION MAY BE OMITTED. This clinical summary was aggregated from multiple sources. Caution should be exercised in using it in the provision of clinical care. This summary normalizes information from multiple sources, and as a consequence, information in this document may materially change the coding, format and clinical context of patient data. In addition, data may be omitted in some cases. CLINICAL DECISIONS SHOULD BE BASED ON THE PRIMARY CLINICAL RECORDS. [employer] [facility]. provides no warranty or guarantee of the accuracy or completeness of information in this document.
[2025-06-07 07:30] LABS: AST(SGOT) 38 U/L (<=31); Alanine Aminotransfer ALT/SGPT 41 U/L (<=34); Albumin, Serum 3.9 g/dL (3.4-4.8); Alkaline Phosphatase 94 U/L (35-104); Anion Gap 14 (5-15); BUN 17 mg/dL (4-19); BUN/Creat Ratio 17.9 RATIO (10-20); Bilirubin, Direct 0.33 mg/dL (0.00-0.30); Calcium,Total 8.8 mg/dL (7.6-11.0); Carbon Dioxide 19.3 mmol/L (21.0-32.0); Chloride 100 mmol/L (98-108); Estimated Creatinine Clearance 48.01 ml/min (50-250); Globulin 2.9 g/dL (2.2-4.2); Glucose 112 mg/dL (70-99); Lipase 25 U/L (13-75); Magnesium 2.0 mg/dL (1.5-2.2); Potassium 4.1 mmol/L (3.3-5.1)
--- NOTE | 2025-06-07 08:02 | EX.ED.DYSGE1 ---
HPI History of Present Illness Chief Complaint: Diarrhea Informant: patient and spouse/S.O. Narrative Narrative: Patient is a 75-year-old female with past medical history of hypertension hypothyroidism paroxysmal atrial fibrillation currently on Eliquis and colostomy. She states that over the last 2 to 3 days she has had intermittent bouts of abdominal discomfort/pain coupled with high liquidy output from her ostomy. She states there has been no true fevers although she has had subjective fevers and chills and she denies any known sick contact. She states she has had problems with her kidney value in the past when she has high output watery stool and with concern for this presents for evaluation [facility] Medical History Leukemia Hypokalemia Hypophosphatemia High output ileostomy Right bundle branch block History of syncope Ileostomy in place GERD (gastroesophageal reflux disease) History of DVT (deep vein thrombosis) (~10/2015) Atrial fibrillation with RVR Essential hypertension [id number] disease Small bowel obstruction AML (acute myeloid leukemia) in remission (~01/12/22) Hypothyroidism Home Medications ?Medication ?Instructions ?Recorded ?Last Taken ?Type magnesium oxide 400 mg (241.3 mg 200 mg PO BID supplement 09/08/15 08/23/22 History magnesium) tablet L.acidoph,paracasei,B.animalis 10 1 ea PO QHS probiotic 05/06/19 08/22/22 History billion cell capsule esomeprazole magnesium 40 mg 40 mg PO DAILY GERD 05/06/19 08/23/22 History capsule,delayed release metoprolol tartrate 25 mg tablet 25 mg PO BID htn 01/08/22 08/23/22 History apixaban 5 mg tablet 5 mg PO BID blood thinner 08/23/22 08/23/22 History cholecalciferol (vitamin D3) 50 50 mcg PO DAILY supplement 08/23/22 08/23/22 History mcg (2,000 unit) tablet flaxseed oil 1,000 mg capsule 1,000 mg PO DAILY 03/25/23 Unknown History dicyclomine 20 mg tablet 20 mg PO 4X/DAY PRN Abdominal 06/07/25 Unknown Rx bloating/spasm #28 tabs levothyroxine 112 mcg tablet 112 mcg PO DAILY disorder of 06/07/25 Unknown History (Synthroid) thyroid gland ondansetron 4 mg disintegrating 4 mg PO TID PRN nausea and 06/07/25 Unknown Rx tablet vomiting #21 tabs oxycodone 5 mg tablet 5 mg PO Q6H PRN pain 3 days #12 06/07/25 Unknown Rx tabs Allergy/AdvReac Type Severity Reaction Status Date / Time Gadolinium-MRI Contrast Allergy Hives Verified 06/07/25 06:30 Medium (CONTRAST) Iodinated Contrast Media Allergy Hives Verified 06/07/25 06:30 (Iodinated Contrast Media - IV Dye) iodine Allergy Hives Verified 06/07/25 06:30 teriparatide (From Forteo) AdvReac Unknown Other Verified 06/07/25 06:30 Family History Mother Diabetes Heart disease Father Cancer Liver CA, age 84. Alcoholism Surgical History History of bone marrow transplant H/O ileostomy History of total colectomy Bone marrow transplant status Social History household members: spouse Smoking Status: Never smoker alcohol intake: never substance use type: does not use ROS ROS ED Constitutional Constitutional ED: Reports chills, fever(s) and subjective ENT ENT ED: Denies sore throat Cardiovascular Cardiovascular: Denies chest pain Respiratory/Chest Respiratory/Chest: Denies cough or dyspnea Gastrointestinal Gastrointestinal: Reports abdominal pain, diarrhea and nausea; Denies vomiting Genitourinary Genitourinary ED: Denies dysuria Musculoskeletal Musculoskeletal: Reports myalgias Integumentary Denies rash Neurologic Neurologic: Reports headache(s) and weakness Hematologic/Lymphatic Hematologic/Lymphatic: Reports easy bleeding and easy bruising EXAM Physical Exam Const Vital Signs: 06/07/25 06:23 06/07/25 06:26 06/07/25 09:39 Temperature 97.8 F 97.8 F 98.5 F Temperature Source Oral Oral Pulse Rate 72 67 65 Respiratory Rate 16 16 16 Blood Pressure 128/63 H 128/63 H 91/56 L Blood Pressure Mean 84 84 67 Pulse Ox 100 100 99 Positive well nourished, well developed and obese General Appearance ED: well developed; Negative for pallor Nutritional Appearance: obese HEENT HEENT Narrative: Normocephalic atraumatic No tongue or lip swelling no oral lesions no airway edema or compromise; no secondary findings in the posterior pharynx to suggest infection Mucous membranes are slightly dry and tacky Eyes PERRL and EOMs intact bilaterally General Eye ED: Negative for scleral icterus Neck supple Resp normal respiratory effort and clear to auscultation bilaterally Cardio regular rate and regular rhythm Rate: other Other Details: Radial and carotid pulses are equal and symmetric GI non-distended GI Narrative: Abdomen is soft and nondistended with hyperactive bowel sounds. There is mild diffuse pain with palpation. No voluntary guarding or rigidity or pulsatile mass. No fluid wave or peritoneal signs. No increased tympany. There is brown watery stool present in the ostomy bag. Auscultation: hyperactive bowel sounds Palpation: soft Extremity normal to inspection Neuro oriented x3, CN's II-XII intact bilaterally and no sensory deficits noted Sensorium / Orientation: alert Motor Exam: strength 5/5 throughout Psych Mood & Affect: anxious Skin no rashes or lesions noted and No skin turgor normal Skin Narrative: Skin turgor is slightly increased consistent with dehydration General Skin Exam: Negative for jaundice or pallor MDM MDM MDM Narrative Medical decision making narrative: Patient presented to ER with stable vitals. She reported a few days worth of abdominal discomfort with high-volume watery stool in her ostomy. Differential diagnosis is for viral stomach infection such as norovirus versus rotavirus. This could have led to acute kidney injury or clinically significant electrolyte abnormality. As her ostomy is still putting out stool/fluid and her stomach is not distended I have low concern for small bowel obstruction and do not feel the need for a CT scan. Labs revealed no leukocytosis or left shift going against systemic infection. Creatinine is normal going against PEPE and there is no clinically significant electrolyte change. Lipase is also normal going against acute pancreatitis. After receiving IV hydration as well as morphine and Zofran the patient reported feeling better. As her labs revealed no clinically significant findings her abdominal exam shows no findings concerning for acute obstruction and symptoms have improved with treatment I do not feel there is need for further intervention in the ER and she is otherwise safe for discharge with symptomatic care History & Record Review Discussion w/independent historian: Patient and Significant other Lab Data Attestation: I reviewed the patient's lab results. Labs: Laboratory Results - last 24 hr 06/07/25 06:48 WBC 9.2 RBC 4.60 Hgb 15.3 H Hct 44.8 MCV 97.4 MCH 33.3 H MCHC 34.2 RDW Std Deviation 51.1 H RDW Coeff of Saloni 14.3 Plt Count 204 MPV 10.7 Immature Gran % (Auto) 0.400 Neut % (Auto) 48.9 Lymph % (Auto) 35.1 Randolph % (Auto) 13.4 H Eos % (Auto) 1.7 Baso % (Auto) 0.5 Absolute Neuts (auto) 4.5 Absolute Lymphs (auto) 3.23 Nucleated RBC % 0 Sodium 133 Potassium 4.1 Chloride 100 Carbon Dioxide 19.3 L Anion Gap 14 BUN 17 Creatinine 0.93 Estim Creat Clear Calc 48.01 L Est GFR (MDRD) Non-Af 65 BUN/Creatinine Ratio 17.9 Glucose 112 H Calcium 8.8 Magnesium 2.0 Total Bilirubin 0.72 Direct Bilirubin 0.33 H AST 38 H ALT 41 H Alkaline Phosphatase 94 Total Protein 6.7 Albumin 3.9 Globulin 2.9 Lipase 25 Discharge Plan Triage Chief Complaint: Diarrhea ED Provider: Prasanna Diaz Dx/Rx/DC Orders Clinical Impression: Nausea, Abdominal pain, Diarrhea, Essential hypertension, Hypothyroidism, Paroxysmal atrial fibrillation, 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, History of total colectomy Instructions: Abdominal Pain, ED Diarrhea, Viral (Adult), ED Gastroenteritis, Viral (Adult) Prescriptions: New ondansetron 4 mg tablet,disintegrating 4 mg PO TID PRN (Reason: nausea and vomiting) Qty: 21 0RF dicyclomine 20 mg tablet 20 mg PO 4X/DAY PRN (Reason: Abdominal bloating/spasm) Qty: 28 0RF oxycodone 5 mg tablet 5 mg PO Q6H PRN (Reason: pain) 3 Days Qty: 12 0RF No Action magnesium oxide 400 MG tablet 200 mg PO BID esomeprazole magnesium 40 MG capsule,delayed release(DR/EC) 40 mg PO DAILY L.acidoph,paracasei,B.animalis 1 EACH capsule 1 ea PO QHS metoprolol tartrate 25 mg tablet 25 mg PO BID apixaban 5 mg Tablet 5 mg PO BID cholecalciferol (vitamin D3) 50 mcg (2,000 unit) Tablet 50 mcg PO DAILY flaxseed oil 1,000 mg capsule 1,000 mg PO DAILY levothyroxine [Synthroid] 112 mcg tablet 112 mcg PO DAILY Primary Care Provider: Dorcas Prince Referrals: Dorcas Prince MD [Primary Care Provider, Internal Medicine] Activity Restrictions/Additional Instructions: Your workup today did not reveal any signs of acute kidney injury or clinically significant electrolyte abnormality. Your history and exam is most consistent with a viral stomach infection. This should improve spontaneously over the next 3 to 5 days. Take the prescribed medication as directed to help control symptoms and keep yourself well-hydrated. If you have worsening of symptoms despite treatment or develop a fever or any further concerns return to the ER for repeat evaluation Print Language: Mongolian Disposition Disposition: Home, Self Care Discharge Date/Time: 06/07/25 09:53
[2025-06-07 09:39] VITALS: BP 91/56; PULSE 65; RESP 16; TEMP 36.9; O2SAT 99
== END 2025-06-07 09:53 | disposition home or self-care (01) ==
PROVIDERS: Emergency Provider Emergency Medicine; PCP Internal Medicine; Visit Provider Emergency Medicine
DX: R11.0 Nausea (principal); C92.01 Acute myeloblastic leukemia, in remission; Z94.81 Bone marrow transplant status; Z93.3 Colostomy status; I48.0 Paroxysmal atrial fibrillation; R19.7 Diarrhea, unspecified; Z86.718 Personal history of other venous thrombosis and embolism; Z79.01 Long term (current) use of anticoagulants; E03.9 Hypothyroidism, unspecified; R10.9 Unspecified abdominal pain; I10 Essential (primary) hypertension; E66.9 Obesity, unspecified; M79.10 Myalgia, unspecified site; R51.9 Headache, unspecified; R53.1 Weakness; R23.3 Spontaneous ecchymoses
CPT/HCPCS: 36591; 80048; 80076; 83690; 83735; 85025; 96361; 96374; 96375; 99284; A4216; J2405

== ENCOUNTER 2025-06-14 14:44 | Outpatient (CLI) | payer MEDICARE, SELFPAY ==
[2024-10-05 09:51] VITALS: BMI 35.3
[2025-06-14 15:50] LABS: CRP 6.46 mg/L (0.0-3.0)
[2025-06-14 16:20] LABS: Hematocrit 43.1 % (37-47); Hemoglobin 15.4 g/dL (12.0-15.0); Immature Granulocytes Count 0.020 X10^3/uL (0.0-0.0); Mean Corp Hgb Conc 35.7 g/dL (32-36); Mean Corpuscular Volume 98.0 fL (81-99); Mean Platelet Vol. 11.0 fl (6.2-12.0); NRBC Flagged by Analyzer 0 % (0-5); Platelet Count 244 K/mm3 (150-450); RBC Distribution Width CV 14.8 % (11.6-14.6); RBC Distribution Width SD 53.2 fl (35.1-43.9); Red Blood Count 4.40 M/mm3 (4.2-5.4); White Blood Count 9.4 K/mm3 (4.4-11.0)
[2025-06-14 23:10] LABS: Xtra Tube EP Lab EXTRA TUBE
== END 2025-06-14 23:59 | disposition home or self-care (01) ==
LOC: MEDOUTP 14:44
PROVIDERS: PCP Internal Medicine; Referring Provider Specialist; Visit Provider Specialist
DX: M25.552 Pain in left hip (principal); R03.0 Elevated blood-pressure reading, without diagnosis of hypertension
CPT/HCPCS: 36591; 85025; 85652; 86140; A4216